=== PATIENT | male | born 1995 | race Caucasian/White ===

== ENCOUNTER 2017-11-30 13:43 | Emergency (ER) | payer MEDICARE, MEDICAID, SELFPAY ==
[2017-11-30 13:43] VITALS: BP 164/80; PULSE 102; RESP 18; TEMP 36.6; O2SAT 98; BMI 35.4
--- NOTE | 2017-11-30 13:54 | RAD_ITS ---
STUDY: X-RAY - RIGHT WRIST REASON FOR EXAM: Male, 22 years old. PAIN D/T TRAUMA. PLAYING BASKETBALL. LTD ROM PT APPEARS T/B MENTALLY CHALLENGED TECHNIQUE: 3 view(s) of the wrist were obtained. COMPARISON: None. FINDINGS: Normal visualized distal radius and ulna. Normal radiocarpal articulation. Normal distal radioulnar articulation. Normal carpal bones. Normal carpal articulations. Normal carpometacarpal articulation of the thumb. Normal second through fifth carpometacarpal articulations. Normal visualized metacarpal bones. The soft tissue structures are unremarkable. RAD/Wrist min 3 Views IMPRESSION: Normal x-ray examination of the wrist. Electronically Signed: Teri Lacey MD at 14:38 EDT Tel , Service support ,
--- NOTE | 2017-11-30 13:59 | ED.VISSUMM ---
- ER Visit Summary Date of Service: 11/30/17 Chief Complaint: Right wrist injury History of Present Illness: The patient is a 22 M with right wrist injury. The patient has a history of developmental delay and schizoaffective disorder. He was playing basketball today. He fell and struck the dorsum of his right wrist on the ground. Since then, he had some increasing pain. He did not strike his head. He denies any other injury. Patient has no history of fracture. He has not taken anything for his pain. Physical Examination: Exam is relatively unremarkable. Patient has tenderness on the dorsum of the wrist. His pulses are normal. His skin is intact. He is neurologically intact distally. Test Results: [] Emergency Department Course and Treatment: X-rays were obtained of the wrist. There is no evidence of acute fracture. I do feel that his symptoms are consistent with sprain. He will continue ice and anti-inflammatories. He will be placed in a wrist splint for comfort. This is a Velcro splint. He will be discharged home. Treatment Plan: [] Disposition: Discharge Impression: 1. Right wrist sprain This note was generated with [employer] dictation software. It may contain incorrect words, spelling, and punctuation that were not noted in review of the chart prior to signing ED Disposition - Plan for ED Patient: Chief Complaint: Upper Extremity Injury Instructions: ED Sprain Wrist Referrals: Turner Quick MD [Primary Care Provider] -
[2017-11-30] MEDS: Ibuprofen 600 MG Tablet PO (14:24)
[2017-11-30 15:10] VITALS: BP 108/69; PULSE 84; RESP 16; O2SAT 98
== END 2017-11-30 15:13 | disposition home or self-care (01) ==
LOC: ED 14:14
PROVIDERS: Emergency Provider Emergency Medicine; Family Provider Family Medicine; PCP Family Medicine
DX: S63.501A Unspecified sprain of right wrist, initial encounter (principal); W18.01XA Striking against sports equipment with subsequent fall, initial encounter; Y93.67 Activity, basketball; Y92.310 Basketball court as the place of occurrence of the external cause; Y99.8 Other external cause status; F25.9 Schizoaffective disorder, unspecified; R62.50 Unspecified lack of expected normal physiological development in childhood
CPT/HCPCS: 73110; 99283

== ENCOUNTER 2017-12-20 17:33 | Emergency (ER) | payer MEDICARE, MEDICAID, SELFPAY ==
[2017-12-20 17:34] VITALS: BP 123/73; PULSE 98; RESP 14; TEMP 36.7; O2SAT 97; BMI 36.2
--- NOTE | 2017-12-20 17:55 | ED.RN ---
Melissa from crisis on her way over to see pt
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
[2017-12-20 18:09] LABS: Absolute Lymphocyte Count 2.06 X10^3/ul (0.83-4.51); Absolute Neutrophil Count 6.5 X10^3/uL (2.0-7.7); Eosinophil# 0.01 X10^3/uL; Eosinophils% 0.1 % (0-5); Lymphocyte # 2.06 X10^3/ul (4.0); Lymphocyte % 22.4 % (19-41); Mean Corp Hgb Conc 33.3 g/gl (32-36); Mean Corpuscular Hgb 26.7 pg (27.0-32.0); Mean Corpuscular Volume 80.2 fL (80-94); Mean Platelet Vol. 8.8 fl (6.2-12.0); Monocyte# 0.65 X10^3/uL; Monocyte% 7.1 % (0-10); Neutrophil # 6.46 X10^3/uL (2.7-7.7); Neutrophil % 70.3 % (47-70); POSITIVE COUNT NO; POSITIVE DIFFERENTIAL NO; POSITIVE MORPHOLOGY NO; Platelet Count 285 K/mm3 (150-450); RBC Distribution Width SD 40.7 fl (35.1-43.9); Red Blood Count 5.24 M/mm3 (4.6-6.2); White Blood Count 9.2 K/mm3 (4.4-11.0)
[2017-12-20 18:22] LABS: Anion Gap 7 (5-15); BUN 10 mg/dL (7-18); BUN/Creat Ratio 11.7 RATIO (10-20); Chloride 104 mmol/L (98-107); Creatinine, Serum 0.86 mg/dL (0.70-1.30); EST Glomerular Filtration Rate 117 mL/min (>60); Est Glom Filt Rate - Afr Amer 141 mL/min (>60); Estimated Creatinine Clearance 145.37 ml/min; Glucose 93 mg/dL (74-106); Potassium 3.8 mmol/L (3.5-5.1); Sodium Level 137 mmol/L (136-145)
[2017-12-20 18:35] LABS: Alcohol, Blood (Medical)-Serum < 3.0 mg/dL
[2017-12-20 18:55] VITALS: PULSE 86; RESP 16; O2SAT 98
[2017-12-20 19:14] VITALS: RESP 16
[2017-12-20 19:46] LABS: Amphetamine Urine VISTA POSITIVE (<1000 ng/mL); Barbiturate Urine VISTA NEGATIVE (< 200 ng/mL); Benzodiazepine Urine VISTA NEGATIVE (< 200 ng/mL); Cocaine Urine VISTA NEGATIVE (< 300 ng/mL); Ecstacy Urine VISTA POSITIVE (< 500 ng/mL); Methadone Urine VISTA NEGATIVE (< 300 ng/mL); PCP Urine VISTA NEGATIVE (< 25 ng/mL); THC Urine VISTA NEGATIVE (< 50 ng/mL); Vista UDS pH Range 6
[2017-12-20 20:16] VITALS: BP 142/87; PULSE 106; RESP 16; O2SAT 96
--- NOTE | 2017-12-20 21:03 | EKG12_ITS ---
Test Reason : [facility] Blood Pressure : / mmHG Vent. Rate : 102 BPM Atrial Rate : 102 BPM P-R Int : 144 ms QRS Dur : 088 ms QT Int : 318 ms P-R-T Axes : 016 -23 026 degrees QTc Int : 414 ms Sinus tachycardia Leftward axis R/S in V1>1.0: consider lead placement; normal variant; early transition; Isolated posterior TX, age undetermined Moderate voltage criteria for LVH, may be normal variant Borderline ECG Confirmed by BERYL LAI, AHSAN ([id number]), staff editor LEIA MISHRA ([id number]) on 12/23/2017 1:12:20 PM Referred By: JEFERSON Confirmed By:AHSAN CORDOBA MD
[2017-12-20 21:44] LABS: Bacteria 0 SEEN /hpf (None Seen); Red Blood Cells-Urine 0 SEEN /hpf (0-5)
[2017-12-20 21:45] LABS: Color, Urine Yellow (Yellow); Glucose, Dipstick Normal (Normal); Ketone-Dipstick Negative (Negative); Leukocyte Esterase-Dipstick 25 /ul (Negative); Nitrite-Dipstick Negative (Negative); Occult Blood-Urine Negative /ul (Negative); Protein-Dipstick 30 mg/dl (Negative); Specific Gravity, Urine 1.025 (1.002-1.030); Urine Bilirubin Dipstick Negative (Negative); Urine Clarity Clear (Clear); Urine Urobilinogen Normal (Normal)
[2017-12-20 22:00] VITALS: RESP 16; O2SAT 98
[2017-12-20 22:05] LABS: Mucous, Urine 2+ /hpf (<or=2+); Squamous Epithelial Cells - UA 0-5 SEEN /hpf (0-5); White Blood Cells 0-5 SEEN /hpf (0-5)
[2017-12-20 22:11] LABS: AST(SGOT) 15 U/L (15-37); Alanine Aminotransfer ALT/SGPT 25 U/L (16-61); Alkaline Phosphatase 131 U/L (45-117); Bilirubin, Direct 0.09 mg/dL (0.00-0.30); Globulin 3.6 g/dL (2.2-4.2); Protein, Total 7.6 g/dL (6.4-8.2)
--- NOTE | 2017-12-20 23:02 | NURSING ---
CALLED [facility] AT 2300 AND WAS TOLD NO AVAILABILITY CALLED [facility] AT 2304 AND WAS TOLD EARLIEST AVAILABILITY IS 0730 SO SET UP TRANSPORT FOR THE MORNING
[2017-12-20 23:38] VITALS: BP 142/80; PULSE 101; RESP 18; O2SAT 97
--- NOTE | 2017-12-20 23:40 | NURSING ---
[place] [id number] [phone] REPORT
[2017-12-21] VITALS (8 sets, daily range): BP systolic 116–134; BP diastolic 66–87; PULSE 71–99; RESP 16–18; TEMP 36.6; O2SAT 96–98
[2017-12-21] MEDS: DiphenhydrAMINE 25 MG Capsule PO (02:43)
== END 2017-12-21 08:06 ==
PROVIDERS: Emergency Provider Emergency Medicine; Family Provider Family Medicine; PCP Family Medicine
DX: F32.9 Major depressive disorder, single episode, unspecified (principal); R45.851 Suicidal ideations; R44.1 Visual hallucinations; F43.10 Post-traumatic stress disorder, unspecified
CPT/HCPCS: 80048; 80076; 80307; 80320; 81001; 85025; 93005; 99284; G0480

== ENCOUNTER 2018-04-20 17:24 | Emergency (ER) | payer MEDICARE, MEDICAID, SELFPAY ==
[2018-04-20] VITALS (7 sets, daily range): BP systolic 133–134; BP diastolic 72–81; PULSE 79–81; RESP 14–16; TEMP 36.6; O2SAT 95–97; BMI 35.6
[2018-04-20 18:07] LABS: Absolute Lymphocyte Count 2.18 X10^3/ul (0.83-4.51); Absolute Neutrophil Count 6.1 X10^3/uL (2.0-7.7); Hematocrit 43.1 % (40-54); Lymphocyte # 2.18 X10^3/ul (4.0); Lymphocyte % 24.5 % (19-41); Mean Corp Hgb Conc 32.5 g/gl (32-36); Mean Corpuscular Hgb 25.7 pg (27.0-32.0); Mean Corpuscular Volume 79.1 fL (80-94); Mean Platelet Vol. 8.9 fl (6.2-12.0); Monocyte# 0.59 X10^3/uL; Monocyte% 6.6 % (0-10); Neutrophil # 6.12 X10^3/uL (2.7-7.7); Neutrophil % 68.7 % (47-70); POSITIVE COUNT NO; POSITIVE DIFFERENTIAL NO; POSITIVE MORPHOLOGY NO; Platelet Count 276 K/mm3 (150-450); RBC Distribution Width CV 14.2 % (11.6-14.6); RBC Distribution Width SD 40.3 fl (35.1-43.9); Red Blood Count 5.45 M/mm3 (4.6-6.2); White Blood Count 8.9 K/mm3 (4.4-11.0)
--- NOTE | 2018-04-20 18:15 | CM.ED ---
SOCIAL WORK NOTE PT SENT IN BY CRISIS FOR SUICIDAL IDEATION WITH PLAN TO HARM SELF. DISCUSSED PT'S CASE WITH DR. DE ANDA. PT TO BE WORKED UP FOR MEDICAL CLEARANCE AND EVALUATED BY CRISIS. PAMELA BRUCE, CAMERA SYSTEMS ENGINEER, COMPLIANCE ATTORNEY.
[2018-04-20 18:18] LABS: Anion Gap 10 (5-15); BUN 13 mg/dL (7-18); BUN/Creat Ratio 16.2 RATIO (10-20); Chloride 106 mmol/L (98-107); EST Glomerular Filtration Rate 125 mL/min (>60); Est Glom Filt Rate - Afr Amer 152 mL/min (>60); Estimated Creatinine Clearance 160.91 ml/min; Glucose 87 mg/dL (74-106); Potassium 3.8 mmol/L (3.5-5.1); Sodium Level 140 mmol/L (136-145)
--- NOTE | 2018-04-20 18:20 | ED.VISSUMM ---
- ER Visit Summary Date of Service: 04/20/18 Chief Complaint: Suicidal ideation History of Present Illness: The patient is a 22 M who presents for suicidal ideation since this morning. Patient states he plans to cut himself on the wrists. He has had prior thoughts of suicide and prior hospitalizations for mental health reasons. He denies doing anything today to harm himself. He lives with his mother and grandfather. He denies any situational factors, alcohol or drug use that would be causing his suicidal thoughts. He has history of depression and bipolar disorder. He is on medications for the same. He denies any somatic symptoms at this time. He took a Vistaril at home without any improvement. Physical Examination: Vital signs: afebrile, hemodynamically stable, no hypoxia on room air General: well nourished, well developed, in no distress Skin: warm, dry, no rash, no pallor HEENT: normocephalic and atraumatic; PERRL, EOMI, moist mucous membranes Cardiovascular: regular rate and rhythm without murmurs, no peripheral edema, 2+ pulses all distal extremities Respiratory: No increased work of breathing, lungs are clear to auscultation bilaterally, no rales, rhonchi or wheezing Abdominal: Abdomen is soft, nontender with normoactive bowel sounds, no guarding or rebound, no masses MSK: Moves all extremities, no deformities, normal strength Neuro: Awake and alert, oriented ?4. No facial droop, sensation and motor function intact and symmetric Psych: Positive suicidal ideation, no obvious response to internal stimuli, no obvious paranoid ideation, no homicidal ideation Test Results: Abnormal Lab Results 04/20/18 04/20/18 04/20/18 17:50 17:50 17:50 WBC 8.9 RBC 5.45 Hgb 14.0 Hct 43.1 MCV 79.1 L MCH 25.7 L MCHC 32.5 RDW 14.2 RDW Differential 40.3 Plt Count 276 MPV 8.9 Immature Gran % (Auto) 0.200 Neut % (Auto) 68.7 Lymph % (Auto) 24.5 [place] % (Auto) 6.6 Eos % (Auto) 0.0 Baso % (Auto) 0.0 Absolute Neuts (auto) 6.1 Absolute Lymphs (auto) 2.18 Total Counted Not Reportable Sodium 140 Potassium 3.8 Chloride 106 Carbon Dioxide 24.0 Anion Gap 10 BUN 13 Creatinine 0.80 Estim Creat Clear Calc 160.91 Est GFR (MDRD) Af Amer 152 Est GFR (MDRD) Non-Af 125 BUN/Creatinine Ratio 16.2 Glucose 87 Calcium 9.0 Urine Opiates Screen Urine Methadone Screen Ur Barbiturates Screen Ur Phencyclidine Scrn Ur Amphetamines Screen U Methamphetamin-MDMA U Benzodiazepines Scrn Urine Cocaine Screen U Cannabinoids Screen Ur Drug Screen Comment Ethyl Alcohol 3.0 04/20/18 19:00 WBC RBC Hgb Hct MCV MCH MCHC RDW RDW Differential Plt Count MPV Immature Gran % (Auto) Neut % (Auto) Lymph % (Auto) [place] % (Auto) Eos % (Auto) Baso % (Auto) Absolute Neuts (auto) Absolute Lymphs (auto) Total Counted Sodium Potassium Chloride Carbon Dioxide Anion Gap BUN Creatinine Estim Creat Clear Calc Est GFR (MDRD) Af Amer Est GFR (MDRD) Non-Af BUN/Creatinine Ratio Glucose Calcium Urine Opiates Screen NEGATIVE Urine Methadone Screen NEGATIVE Ur Barbiturates Screen NEGATIVE Ur Phencyclidine Scrn NEGATIVE Ur Amphetamines Screen NEGATIVE U Methamphetamin-MDMA NEGATIVE U Benzodiazepines Scrn NEGATIVE Urine Cocaine Screen NEGATIVE U Cannabinoids Screen NEGATIVE Ur Drug Screen Comment Ethyl Alcohol Medications Given Discontinued Medications Acetaminophen (Tylenol) 650 mg PO X1 ONE Stop: 04/20/18 22:44 Last Admin: 04/20/18 22:49 Dose: 650 mg Hydroxyzine Pamoate (Vistaril Pamoate Capsule) 50 mg PO X1 ONE Stop: 04/20/18 22:44 Last Admin: 04/20/18 22:49 Dose: 50 mg Emergency Department Course and Treatment: Medical screening exam was performed. Patient was medically cleared for further evaluation by the crisis counselor for psychiatric placement. Pending acceptance to an inpatient psychiatric facility. [place] slip was filled out as patient is actively suicidal and will require inpatient management. Treatment Plan: [] Disposition: [] Impression: Suicidal ideation This note was generated with [employer] software. It may contain incorrect words, spelling, and punctuation that were not noted in review of the chart prior to signing ED Disposition - Plan for ED Patient: Referrals: Turner Quick MD [Primary Care Provider] -
[2018-04-20 19:20] LABS: Amphetamine Urine VISTA NEGATIVE (<1000 ng/mL); Barbiturate Urine VISTA NEGATIVE (< 200 ng/mL); Benzodiazepine Urine VISTA NEGATIVE (< 200 ng/mL); Cocaine Urine VISTA NEGATIVE (< 300 ng/mL); Ecstacy Urine VISTA NEGATIVE (< 500 ng/mL); Methadone Urine VISTA NEGATIVE (< 300 ng/mL); PCP Urine VISTA NEGATIVE (< 25 ng/mL); THC Urine VISTA NEGATIVE (< 50 ng/mL); Vista UDS pH Range 6
[2018-04-20] MEDS: Acetaminophen 325 MG Tablet 650 MG PO (22:49)
[2018-04-20] MEDS: hydrOXYzine PAM 25 MG Capsule 50 MG PO (22:49)
[2018-04-21] VITALS (7 sets, daily range): BP systolic 124–126; BP diastolic 70–82; PULSE 76–81; RESP 14–18; O2SAT 95–96
--- NOTE | 2018-04-21 00:29 | NURSING ---
ACCEPTED TO [facility] [phone] REPORT 1500 UNIT
--- NOTE | 2018-04-21 03:20 | ED.RN ---
REPORT CALLED TO [facility]
[2018-04-21] MEDS: hydrOXYzine PAM 25 MG Capsule 50 MG PO (05:19)
== END 2018-04-21 08:01 ==
PROVIDERS: Emergency Provider Emergency Medicine; Family Provider Family Medicine; PCP Family Medicine
DX: R45.851 Suicidal ideations (principal); F41.9 Anxiety disorder, unspecified; J45.909 Unspecified asthma, uncomplicated; K21.9 Gastro-esophageal reflux disease without esophagitis; F31.9 Bipolar disorder, unspecified
CPT/HCPCS: 80048; 80307; 80320; 85025; 99284; G0480

== ENCOUNTER 2018-05-19 12:45 | Emergency (ER) | payer MEDICARE, MEDICAID, SELFPAY ==
[2018-04-20 17:25] VITALS: BMI 35.6
[2018-05-19 12:46] VITALS: BP 155/73; PULSE 92; RESP 16; TEMP 36.3; O2SAT 97; BMI 36.4
[2018-05-19 13:27] LABS: Amphetamine Urine VISTA NEGATIVE (<1000 ng/mL); Barbiturate Urine VISTA NEGATIVE (< 200 ng/mL); Benzodiazepine Urine VISTA NEGATIVE (< 200 ng/mL); Cocaine Urine VISTA NEGATIVE (< 300 ng/mL); Ecstacy Urine VISTA NEGATIVE (< 500 ng/mL); Methadone Urine VISTA NEGATIVE (< 300 ng/mL); PCP Urine VISTA NEGATIVE (< 25 ng/mL); THC Urine VISTA NEGATIVE (< 50 ng/mL); Vista UDS pH Range 5
[2018-05-19 13:28] LABS: Anion Gap 6 (5-15); BUN 11 mg/dL (7-18); BUN/Creat Ratio 12.3 RATIO (10-20); Calcium,Total 8.4 mg/dL (8.5-10.1); Chloride 107 mmol/L (98-107); Creatinine, Serum 0.89 mg/dL (0.70-1.30); EST Glomerular Filtration Rate 111 mL/min (>60); Est Glom Filt Rate - Afr Amer 134 mL/min (>60); Estimated Creatinine Clearance 140.47 ml/min; Glucose 119 mg/dL (74-106); Potassium 3.4 mmol/L (3.5-5.1); Sodium Level 138 mmol/L (136-145)
[2018-05-19 13:29] LABS: Absolute Lymphocyte Count 2.03 X10^3/ul (0.83-4.51); Absolute Neutrophil Count 3.3 X10^3/uL (2.0-7.7); Hematocrit 39.9 % (40-54); Hemoglobin 13.2 g/dl (13.0-16.5); Lymphocyte # 2.03 X10^3/ul (4.0); Lymphocyte % 36.4 % (19-41); Mean Corp Hgb Conc 33.1 g/gl (32-36); Mean Corpuscular Hgb 25.9 pg (27.0-32.0); Mean Corpuscular Volume 78.4 fL (80-94); Mean Platelet Vol. 8.7 fl (6.2-12.0); Monocyte# 0.23 X10^3/uL; Monocyte% 4.1 % (0-10); Neutrophil # 3.31 X10^3/uL (2.7-7.7); Neutrophil % 59.3 % (47-70); Platelet Count 257 K/mm3 (150-450); RBC Distribution Width CV 14.2 % (11.6-14.6); RBC Distribution Width SD 40.3 fl (35.1-43.9); Red Blood Count 5.09 M/mm3 (4.6-6.2); White Blood Count 5.6 K/mm3 (4.4-11.0)
--- NOTE | 2018-05-19 13:30 | CM.ED ---
SOCIAL WORK NOTE PATIENT PRESENTS TO THE ED WITH SUICIDAL IDEATION. DISCUSSED CASE WITH DR. GARCIA. PATIENT WITH PLAN TO HARM SELF WITH KNIFE. CRISIS TO EVAL ONCE MEDICALLY CLEARED. PAMELA BRUCE, BONDERITE OPERATOR, PRODUCE WEIGHER.
[2018-05-19 13:31] LABS: POSITIVE COUNT NO; POSITIVE DIFFERENTIAL NO; POSITIVE MORPHOLOGY NO
[2018-05-19 13:39] LABS: Alcohol, Blood (Medical)-Serum < 3.0 mg/dL
[2018-05-19 14:04] VITALS: PULSE 69; RESP 15; O2SAT 95
--- NOTE | 2018-05-19 14:06 | NURSING ---
CALLED CRISIS. TALKED TO VALE. SHE WILL BE OVER
--- NOTE | 2018-05-19 14:33 | NURSING ---
VALE, CRISIS, HERE
[2018-05-19 15:13] VITALS: BP 129/86; PULSE 68; RESP 18; O2SAT 96
--- NOTE | 2018-05-19 15:45 | CM.ED ---
SOCIAL WORK NOTE VALE FROM CRISIS HERE AND EVALUATED PATIENT. PLAN IS FOR INPATIENT PSYCH HOSPITALIZATION. PAMELA BRUCE, STRAP FOLDING MACHINE OPERATOR, ELEMENTARY SUBSTITUTE TEACHER.
--- NOTE | 2018-05-19 16:31 | ED.VISSUMM ---
- ER Visit Summary Date of Service: 05/19/18 Chief Complaint: Suicidal ideation History of Present Illness: The patient is a 22 M who presents with increased anxiety and suicidal ideation over the past 2 days. He told nursing staff that he was seeing hallucinations of skeletons. His plan is to cut or stab himself. He has not made any attempts. He was last admitted to [facility] 1 month ago. He was started on Lexapro at that time. Past history is significant for bipolar disorder, mild MR, Asperger's, seizures, asthma. Physical Examination: Vital signs significant for blood pressure 155/73, otherwise unremarkable. Patient sitting upright in bed no acute distress. He is alert and cooperative. Heart is regular rate and rhythm. Lungs sounds are clear. Abdomen is soft nontender. Extremity examination reveals no sign of injury. Test Results: CBC and chemistry studies significant only for potassium 3.4. Tox and EtOH are negative. Lamictal level was sent and pending. Emergency Department Course and Treatment: Margarita from the [facility] has presented to evaluate the patient. Plan at this time will be inpatient psychiatric treatment. We are awaiting acceptance and transfer at this time. Treatment Plan: [] Disposition: Transfer Impression: Suicidal ideation This note was generated with [employer] dictation software. It may contain incorrect words, spelling, and punctuation that were not noted in review of the chart prior to signing ED Disposition - Plan for ED Patient: Referrals: Turner Quick MD [Primary Care Provider] -
--- NOTE | 2018-05-19 17:12 | EKG12_ITS ---
Test Reason : MEDICAL CLEARANCE Blood Pressure : / mmHG Vent. Rate : 074 BPM Atrial Rate : 074 BPM P-R Int : 140 ms QRS Dur : 106 ms QT Int : 376 ms P-R-T Axes : 004 013 025 degrees QTc Int : 417 ms Normal sinus rhythm ST elevation, consider early repolarization, pericarditis, or injury Abnormal ECG Confirmed by TODD LAI, RUDY ([id number]), editor continuity and script JAZIEL PARKER ([id number]) on 05/22/2018 11:20:11 AM Referred By: JOSE Confirmed By:RUDY BROOKS MD
[2018-05-19 18:00] VITALS: RESP 18
--- NOTE | 2018-05-19 18:04 | NURSING ---
ACCEPTED AT [facility]
[2018-05-19 19:00] VITALS: BP 129/86; PULSE 68; RESP 18; O2SAT 96
[2018-05-19] MEDS: Benztropine 2 MG Tablet 0.5 MG PO (19:57)
[2018-05-19] MEDS: hydrOXYzine PAM 25 MG Capsule 50 MG PO (19:57)
[2018-05-19] MEDS: QUEtiapine 100 MG Tablet 150 MG PO (19:58)
[2018-05-19] MEDS: lamoTRIgine 150 MG Tablet PO (19:58)
[2018-05-22 12:15] LABS: Lamotrigine (Lamictal) Level 3.3 ug/mL (2.0-20.0)
== END 2018-05-19 21:03 ==
PROVIDERS: Emergency Provider Emergency Medicine; Family Provider Family Medicine; PCP Family Medicine
DX: R45.851 Suicidal ideations (principal); F41.9 Anxiety disorder, unspecified; J45.909 Unspecified asthma, uncomplicated; F84.5 Asperger's syndrome; F70 Mild intellectual disabilities; F31.9 Bipolar disorder, unspecified
CPT/HCPCS: 80048; 80307; 80320; 82542; 85025; 93005; 99284; G0480

== ENCOUNTER 2018-06-07 14:44 | Emergency (ER) | payer MEDICARE, MEDICAID, SELFPAY ==
[2018-06-07] VITALS (7 sets, daily range): BP systolic 122–137; BP diastolic 80–82; PULSE 83–95; RESP 14–19; TEMP 37.1; O2SAT 95–97; BMI 37.4
--- NOTE | 2018-06-07 15:02 | EKG12_ITS ---
Test Reason : [facility] Blood Pressure : / mmHG Vent. Rate : 089 BPM Atrial Rate : 089 BPM P-R Int : 146 ms QRS Dur : 090 ms QT Int : 346 ms P-R-T Axes : 017 -02 022 degrees QTc Int : 420 ms Normal sinus rhythm Normal ECG Confirmed by TODD LAI, RUDY ([id number]), editorial clerk LEIA MISHRA ([id number]) on 06/12/2018 4:26:20 PM Referred By: JUANIS Confirmed By:RUDY BROOKS MD
--- NOTE | 2018-06-07 15:02 | ED.VISSUMM ---
- ER Visit Summary Date of Service: 06/07/18 Chief Complaint: Suicidal ideation History of Present Illness: The patient is a 22 M who notes a long history of depression bipolar disorder and psychosis. Patient's grandfather within the week and the is this weekend. He was at work today called his mom with his boss stating he was having suicidal thoughts with a plan to cut himself. He also has been seen visions of schools and skeletons. This is been a theme in the past. He denies any medications he has not taken. He denies any drug or alcohol use. No pending legal issues. He lives with mom has a good relationship with her. Physical Examination: Afebrile vital signs stable Gen: Well-nourished well-developed Head: Normocephalic atraumatic Eyes: Perrl EOMI ENT: TMs clear no rhinorrhea moist mucous membranes Neck: Supple no lymphadenopathy no JVD nontender CVS: Regular rate rhythm no murmurs normal S1-S2 Respiratory: No distress clear to auscultation bilaterally chest nontender Abdomen: Soft nontender nondistended normal bowel sounds no masses Back: Nontender Extremity: Nontender no edema Skin: Normal color no rash Neuro: alert orientated ?3 CN II-XII intact normal strength sensation reflexes gait cerebellar Psych: Flat blunted depressed affect admits to suicidal ideation Test Results: Psychiatric screening labs were obtained including EKG. EKG demonstrates a normal sinus rhythm that is unchanged from May 19. Emergency Department Course and Treatment: Patient was medically cleared for crisis and psychiatric evaluation. Patient states he cannot contract for safety. Mom states she cannot guarantee his safety as she is busy planning a . We will attempt to get the patient transferred for psychiatric care. Impression: 1. Major depression 2. Bipolar disorder 3. Suicidal ideation This note was generated with [employer] dictation software. It may contain incorrect words, spelling, and punctuation that were not noted in review of the chart prior to signing ED Disposition - Plan for ED Patient: Referrals: Turner Quick MD [Primary Care Provider] -
--- NOTE | 2018-06-07 15:05 | CM.ED ---
SOCIAL WORK NOTE PHYSICIAN ASSESSED PATIENT AND UPDATED NICKY FROM CRISIS ON NEED FOR EVALUATION. DISPOSITION PENDING CRISIS EVALUATION. PAMELA BRUCE, BALL MILL MIXER, SHOT HOLE DRILLER.
[2018-06-07 15:09] LABS: Absolute Lymphocyte Count 2.63 X10^3/ul (0.83-4.51); Absolute Neutrophil Count 5.1 X10^3/uL (2.0-7.7); Hematocrit 39.2 % (40-54); Hemoglobin 13.2 g/dl (13.0-16.5); Lymphocyte # 2.63 X10^3/ul (4.0); Lymphocyte % 30.5 % (19-41); Mean Corp Hgb Conc 33.7 g/gl (32-36); Mean Corpuscular Hgb 26.2 pg (27.0-32.0); Mean Corpuscular Volume 77.8 fL (80-94); Mean Platelet Vol. 8.3 fl (6.2-12.0); Monocyte# 0.88 X10^3/uL; Monocyte% 10.2 % (0-10); Neutrophil # 5.11 X10^3/uL (2.7-7.7); Neutrophil % 59.2 % (47-70); Platelet Count 270 K/mm3 (150-450); RBC Distribution Width CV 14.7 % (11.6-14.6); RBC Distribution Width SD 41.4 fl (35.1-43.9); Red Blood Count 5.04 M/mm3 (4.6-6.2); White Blood Count 8.6 K/mm3 (4.4-11.0)
[2018-06-07 15:13] LABS: POSITIVE COUNT NO; POSITIVE DIFFERENTIAL NO; POSITIVE MORPHOLOGY NO
[2018-06-07 15:26] LABS: ALB/GLOB Ratio 1.4 RATIO (0.9-2.4); AST(SGOT) 21 U/L (15-37); Alanine Aminotransfer ALT/SGPT 30 U/L (16-61); Albumin, Serum 4.1 g/dL (3.2-5.0); Alkaline Phosphatase 111 U/L (45-117); Anion Gap 6 (5-15); BUN 10 mg/dL (7-18); BUN/Creat Ratio 11.6 RATIO (10-20); Calcium,Total 8.9 mg/dL (8.5-10.1); Chloride 106 mmol/L (98-107); Creatinine, Serum 0.86 mg/dL (0.70-1.30); EST Glomerular Filtration Rate 115 mL/min (>60); Est Glom Filt Rate - Afr Amer 139 mL/min (>60); Estimated Creatinine Clearance 145.37 ml/min; Globulin 2.9 g/dL (2.2-4.2); Glucose 76 mg/dL (74-106); Potassium 3.8 mmol/L (3.5-5.1); Sodium Level 138 mmol/L (136-145)
[2018-06-07 16:58] LABS: Amphetamine Urine VISTA NEGATIVE (<1000 ng/mL); Barbiturate Urine VISTA NEGATIVE (< 200 ng/mL); Benzodiazepine Urine VISTA NEGATIVE (< 200 ng/mL); Cocaine Urine VISTA NEGATIVE (< 300 ng/mL); Ecstacy Urine VISTA NEGATIVE (< 500 ng/mL); Methadone Urine VISTA NEGATIVE (< 300 ng/mL); PCP Urine VISTA NEGATIVE (< 25 ng/mL); THC Urine VISTA NEGATIVE (< 50 ng/mL); Vista UDS pH Range 6
--- NOTE | 2018-06-07 19:23 | ED.RN ---
DR. OLIVAREZ ASKED ABOUT NIGHT TIME MEDS FOR PT, TO RE-EVALUATE PT HOME MEDICATIONS. NO NEW ORDERS AT THIS TIME WILL CONTINUE TO MONITOR.
--- NOTE | 2018-06-07 20:08 | CM.ED ---
SOCIAL WORK NOTE UPDATED BY ASSISTANCE COORDINATOR, [facility] HAS DENIED PATIENT. REFERRAL FAXED TO [facility]. PAMELA BRUCE, SURGICAL SCRUB TECH, CHAIRLIFT OPERATOR.
--- NOTE | 2018-06-07 21:01 | ED.RN ---
REPORT CALLED TO [facility] BY THIS RN TO LO MANN [phone].
== END 2018-06-07 22:05 ==
PROVIDERS: Emergency Provider Emergency Medicine; Family Provider Family Medicine; PCP Family Medicine
DX: R45.851 Suicidal ideations (principal); F32.9 Major depressive disorder, single episode, unspecified
CPT/HCPCS: 80053; 80307; 80320; 85025; 93005; 99284; G0480

== ENCOUNTER 2018-06-16 15:45 | Emergency (ER) | payer OTHER, MEDICARE, MEDICAID, SELFPAY ==
[2018-06-07 14:49] VITALS: BMI 37.4
[2018-06-16 15:46] VITALS: BP 149/89; PULSE 90; RESP 18; TEMP 36.7; O2SAT 93; BMI 39.9
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
[2018-06-16 17:25] VITALS: BP 145/70; PULSE 103; RESP 18; O2SAT 95
== END 2018-06-16 17:27 | disposition home or self-care (01) ==
PROVIDERS: Emergency Provider Emergency Medicine; Family Provider Family Medicine; PCP Family Medicine
DX: S16.1XXA Strain of muscle, fascia and tendon at neck level, initial encounter (principal); S80.01XA Contusion of right knee, initial encounter; V49.59XA Passenger injured in collision with other motor vehicles in traffic accident, initial encounter; Y93.9 Activity, unspecified; Y92.413 State road as the place of occurrence of the external cause; Y99.8 Other external cause status; G40.909 Epilepsy, unspecified, not intractable, without status epilepticus
CPT/HCPCS: 72125; 73564; 99284

== ENCOUNTER 2018-07-12 10:07 | Emergency (ER) | payer MEDICARE, MEDICAID, SELFPAY ==
[2018-07-12 10:10] VITALS: BP 133/73; PULSE 89; RESP 14; TEMP 36.2; O2SAT 96; BMI 81.5
--- NOTE | 2018-07-12 10:31 | ED.DCSUM_ITS ---
- ER Visit Summary Date of Service: 07/12/18 Chief Complaint: Suicidal ideation History of Present Illness: The patient is a 22 M there is a long history of depression and bipolar schizophrenia and Asperger's syndrome. He tells me that since last night he has had increased feelings of paranoia some days watching him. He feels that there is a bomb inside of him that may go off. This is making him want to go home and cut himself. He tells me he has not told his mom or his counselors this. He states he last saw his counselor on Tuesday. He was admitted last month to psychiatry for suicidal ideation via cutting. Physical Examination: Afebrile vital signs are stable Gen: Well-nourished well-developed Head: Normocephalic atraumatic Eyes: Perrl EOMI ENT: TMs clear no rhinorrhea moist mucous membranes Neck: Supple no lymphadenopathy no JVD nontender CVS: Regular rate rhythm no murmurs normal S1-S2 Respiratory: No distress clear to auscultation bilaterally chest nontender Abdomen: Soft nontender nondistended normal bowel sounds no masses Back: Nontender Extremity: Nontender no edema Skin: Normal color no rash Neuro: alert orientated ?3 CN II-XII intact normal strength sensation reflexes gait cerebellar Psych: Patient reports paranoia but does not seem paranoid. He admits to suicidality by cutting. Patient provides numerous inconsistencies with his story about when this began and what his symptoms are. Test Results: CBC BMP tox negative Emergency Department Course and Treatment: Patient was assessed by crisis. They to feel the patient's story is inconsistent and I believe that he is being manipulative to be placed. We had his counselor come to the emergency department who knows him. This time the patient states that he is happy he is no longer suicidal he does not feel he needs to be hospitalized. Impression: 1. Depression 2. Bipolar disorder This note was generated with [employer] dictation software. It may contain incorrect words, spelling, and punctuation that were not noted in review of the chart prior to signing ED Disposition - Plan for ED Patient: Disposition: Home or Assisted Living Instructions: ED Contract, No Harm Referrals: Counseling,Center [GROUP OF PHYSICIANS] - Keep Kristy appointment
[2018-07-12 11:00] LABS: Absolute Lymphocyte Count 2.13 X10^3/ul (0.83-4.51); Absolute Neutrophil Count 2.4 X10^3/uL (2.0-7.7); Hematocrit 41.9 % (40-54); Hemoglobin 14.1 g/dl (13.0-16.5); Lymphocyte # 2.13 X10^3/ul (4.0); Lymphocyte % 42.3 % (19-41); Mean Corp Hgb Conc 33.7 g/gl (32-36); Mean Corpuscular Hgb 25.7 pg (27.0-32.0); Mean Corpuscular Volume 76.5 fL (80-94); Mean Platelet Vol. 8.7 fl (6.2-12.0); Monocyte# 0.45 X10^3/uL; Monocyte% 8.9 % (0-10); Neutrophil # 2.44 X10^3/uL (2.7-7.7); Neutrophil % 48.6 % (47-70); Platelet Count 290 K/mm3 (150-450); RBC Distribution Width CV 14.5 % (11.6-14.6); RBC Distribution Width SD 39.7 fl (35.1-43.9); Red Blood Count 5.48 M/mm3 (4.6-6.2)
[2018-07-12 11:01] LABS: POSITIVE COUNT NO; POSITIVE DIFFERENTIAL NO; POSITIVE MORPHOLOGY NO
[2018-07-12 11:04] LABS: Amphetamine Urine VISTA NEGATIVE (<1000 ng/mL); Barbiturate Urine VISTA NEGATIVE (< 200 ng/mL); Benzodiazepine Urine VISTA NEGATIVE (< 200 ng/mL); Cocaine Urine VISTA NEGATIVE (< 300 ng/mL); Ecstacy Urine VISTA NEGATIVE (< 500 ng/mL); Methadone Urine VISTA NEGATIVE (< 300 ng/mL); PCP Urine VISTA NEGATIVE (< 25 ng/mL); THC Urine VISTA NEGATIVE (< 50 ng/mL); Vista UDS pH Range 6
[2018-07-12 11:05] LABS: Anion Gap 7 (5-15); BUN 14 mg/dL (7-18); BUN/Creat Ratio 16.3 RATIO (10-20); Calcium,Total 8.8 mg/dL (8.5-10.1); Chloride 107 mmol/L (98-107); Creatinine, Serum 0.86 mg/dL (0.70-1.30); EST Glomerular Filtration Rate 115 mL/min (>60); Est Glom Filt Rate - Afr Amer 139 mL/min (>60); Estimated Creatinine Clearance 145.37 ml/min; Glucose 96 mg/dL (74-106); Sodium Level 141 mmol/L (136-145)
--- NOTE | 2018-07-12 11:10 | CM.ED ---
SOCIAL WORK DISCUSSED CASE WITH PHYSICIAN. CRISIS TO EVALUATE FOR INPATIENT PSYCH HOSPITALIZATION. NO SS NEED AT THIS TIME. PAMELA BRUCE, TRANS ROUTER, AIRWAYS CONTROL SPECIALIST.
[2018-07-12 11:13] VITALS: PULSE 81; RESP 12
--- NOTE | 2018-07-12 11:16 | NURSING ---
CALLED [facility] FOR TALKED TO JACOB
[2018-07-12 11:26] LABS: Alcohol, Blood (Medical)-Serum < 3.0 mg/dL
[2018-07-12 12:25] VITALS: RESP 14
--- NOTE | 2018-07-12 13:37 | CM.ED ---
SOCIAL WORK UPDATED BY JACOB FROM CRISIS, PATIENT'S COUNSELOR FROM THE [facility] WILL BE OVER TO MEET WITH PATIENT. POSSIBLE SAFETY PLAN FOR HOME. COUNSELOR TO ASSIST IN DETERMINING DISPOSITION. JACOB TO UPDATE PHYSICIAN. NURSE AWARE AND UPDATED BY CRISIS. PAMELA BRUCE, GIFT SHOP MANAGER, HOLLOW HANDLE BENCH WORKER.
[2018-07-12 14:10] VITALS: BP 138/81; PULSE 84; RESP 16; O2SAT 99
[2018-07-12 15:06] VITALS: PULSE 79; RESP 14; O2SAT 99
== END 2018-07-12 15:19 | disposition home or self-care (01) ==
PROVIDERS: Emergency Provider Emergency Medicine; Family Provider Family Medicine; PCP Family Medicine
DX: R45.851 Suicidal ideations (principal); F31.9 Bipolar disorder, unspecified; F20.9 Schizophrenia, unspecified; F84.5 Asperger's syndrome; Z91.5 Personal history of self-harm
CPT/HCPCS: 80048; 80307; 80320; 85025; 99285; G0480

== ENCOUNTER 2018-08-15 14:24 | Emergency (ER) | payer MEDICARE, MEDICAID, SELFPAY ==
[2018-08-15 14:26] VITALS: BP 133/84; PULSE 97; RESP 18; TEMP 37; O2SAT 94; BMI 39.9
--- NOTE | 2018-08-15 15:17 | ED.DCSUM_ITS ---
- ER Visit Summary Date of Service: 08/15/18 Chief Complaint: Depression and suicidal ideation History of Present Illness: The patient is a 22 M who presents with suicidal and homicidal ideation. Patient states he woke up today and was hearing voices. Patient states the voices are telling him to hurt himself and hurt his mother. Patient states he wanted to cut himself. Patient states nothing made the voices better or worse. Patient denies any specific plan for injuring his mother. Patient has a history of bipolar disorder with psychosis and schizoaffective disorder. He also has a history of PTSD, anxiety disorder, and depression. Physical Examination: Vital signs are stable. Patient is afebrile. Patient is in no acute distress. Oral mucosa is pink and moist. Neck is supple. Trachea is midline. There is no JVD noted. Heart was regular rate and rhythm. Lungs are clear and equal bilateral. Abdomen is soft. Bowel sounds are normal. There is no tenderness. There is no guarding noted. Skin is warm dry. Cranial nerves II through XII are intact. There are no focal motor or sensory deficits noted. Patient has a depressed mood and flat affect. Patient admits to suicidal and homicidal ideations. Patient has a plan to cut himself. The remaining physical exam is within normal limits. Test Results: CBC, metabolic profile, urine tox screen, and serum alcohol level were obtained were all normal. Emergency Department Course and Treatment: Suicide precautions were maintained. Social work will attempt to place the patient in a psychiatric facility. [place] slip was placed. Patient was transferred to [facility]. Patient understood and was agreeable with the plan. All questions were answered. Disposition: Transfer to psychiatric facility Impression: 1. Suicidal ideation 2. Homicidal ideation 3. Schizoaffective disorder This note was generated with [employer] dictation software. It may contain incorrect words, spelling, and punctuation that were not noted in review of the chart prior to signing ED Disposition - Plan for ED Patient: Disposition: Psychiatric Hospital or Unit Diagnosis: Suicidal ideation, Homicidal ideation, Schizoaffective disorder Referrals: Turner Quick MD [Primary Care Provider] -
[2018-08-15 15:21] LABS: Absolute Lymphocyte Count 2.36 X10^3/ul (0.83-4.51); Absolute Neutrophil Count 3.4 X10^3/uL (2.0-7.7); Hematocrit 39.4 % (40-54); Hemoglobin 13.3 g/dl (13.0-16.5); Lymphocyte # 2.36 X10^3/ul (4.0); Lymphocyte % 36.4 % (19-41); Mean Corp Hgb Conc 33.8 g/gl (32-36); Mean Corpuscular Hgb 26.7 pg (27.0-32.0); Mean Platelet Vol. 8.7 fl (6.2-12.0); Monocyte# 0.76 X10^3/uL; Monocyte% 11.7 % (0-10); Neutrophil # 3.37 X10^3/uL (2.7-7.7); Neutrophil % 51.9 % (47-70); Platelet Count 252 K/mm3 (150-450); RBC Distribution Width CV 14.4 % (11.6-14.6); Red Blood Count 4.99 M/mm3 (4.6-6.2); White Blood Count 6.5 K/mm3 (4.4-11.0)
[2018-08-15 15:31] LABS: Anion Gap 7 (5-15); BUN 10 mg/dL (7-18); BUN/Creat Ratio 11.4 RATIO (10-20); Calcium,Total 8.9 mg/dL (8.5-10.1); Chloride 105 mmol/L (98-107); Creatinine, Serum 0.88 mg/dL (0.70-1.30); EST Glomerular Filtration Rate 112 mL/min (>60); Est Glom Filt Rate - Afr Amer 136 mL/min (>60); Estimated Creatinine Clearance 137.86 ml/min; Glucose 89 mg/dL (74-106); POSITIVE COUNT NO; POSITIVE DIFFERENTIAL NO; POSITIVE MORPHOLOGY NO; Potassium 3.8 mmol/L (3.5-5.1); Sodium Level 138 mmol/L (136-145)
[2018-08-15 15:40] LABS: Amphetamine Urine VISTA NEGATIVE (<1000 ng/mL); Barbiturate Urine VISTA NEGATIVE (< 200 ng/mL); Benzodiazepine Urine VISTA NEGATIVE (< 200 ng/mL); Cocaine Urine VISTA NEGATIVE (< 300 ng/mL); Ecstacy Urine VISTA NEGATIVE (< 500 ng/mL); Methadone Urine VISTA NEGATIVE (< 300 ng/mL); PCP Urine VISTA NEGATIVE (< 25 ng/mL); THC Urine VISTA NEGATIVE (< 50 ng/mL); Vista UDS pH Range 6
--- NOTE | 2018-08-15 15:40 | CM.ED ---
Social Work Reason for Consult: Suicidal/Homocidal Thoughts Informant: Patient, patient mom. Personal Status Mentation: patient A&Ox3 Present during assessment: Patient and patient mother. Patient motherTasha is patient guardian. Living Arrangements: Patient lives with patient mother. Employment: Employed through [employer] Family Dynamics/Relationships: Supports: ADLs: Independent with basis ADL's does need assistance with cooking, cleaning, paying bills and managing medication per patient mother. Chief Complaint: Patient reporting to be hearing voices that are telling patient to cut self as well as kill patients mother (Tasha) with a knife. Patient reporting to hear the voices often and to still be actively hearing the voices during conversation with this nursing home social worker. There is a sitter present in the room and patient mother is reporting to feel safe being in the room at this time. Patient calmly laying on the bed during interaction with this nursing home social worker. Impression: Patient presenting with thoughts of suicidal and homicidal ideation and plan. Patient is not safe to self or others to return to the community at this time. Collaborating with Dr. Membreno. Patient to discharge to an inpatient psychiatric facility. Patient noted to have a history of a stay at [facility] in the past. Will attempt placement at [facility]. Mental Health Hx and Current Status: Patient diagnosed with Bi-polar and does take medication to manage this. Patient mother reporting that patient does not remember to take medication on own and that patient needs to be reminded to take medication. Resources [employer] SINGH Terrell is insurance case manager Ruddy Sosa is counselor - Telephone call to Sherry Powell encouraging this nursing home social worker to encourage patient to utilize counseling services and the [facility] on a consistent basis to be able to offer on going support. This nursing home social worker encouraged patient to continue using [facility] as a support to to follow up with counseling appointments in the community. Sherry reporting that patient does cancel or not show up for counseling appointments. Intervention Telephone call to [facility], referral information to be faxed when obtained. Plan Transfer to an inpatient psychiatric facility, [facility] pending approval. Jovanny FERRERA, TOM
[2018-08-15 16:11] LABS: Alcohol, Blood (Medical)-Serum < 3.0 mg/dL
--- NOTE | 2018-08-15 16:24 | CM.ED ---
Social Work Clinical information obtained and faxed to [facility]. Pending approval at this time. Jovanny FERRERA, TOM
[2018-08-15 16:53] VITALS: RESP 19
[2018-08-15 17:06] VITALS: BP 143/87; PULSE 93; RESP 17; TEMP 37.1; O2SAT 96
--- NOTE | 2018-08-15 17:07 | CM.ED ---
Social Work Telephone call from [facility]. Patient has been accepted to the [facility]. [phone] is number for report, nursing staff notified. Notified GAVINO Laguna floor polisher and Dr. Membreno. Dr. Membreno completing [place]. [place] faxed to [facility]. All agreeable to plan. Patient and patient mother notified and aware of plan. PLAN: Discharge to [facility] Jovanny FERRERA, TOM
--- NOTE | 2018-08-15 17:11 | NURSING ---
CALLED [facility], NONE AVAILABLE
--- NOTE | 2018-08-15 17:52 | NURSING ---
190 CALLED [facility]. ETA IS 1 TO 1.5 HRS
[2018-08-15 19:08] VITALS: BP 143/87; PULSE 78
== END 2018-08-15 19:10 ==
PROVIDERS: Emergency Medicine; Emergency Provider Emergency Medicine; Family Provider Family Medicine; PCP Family Medicine
DX: R45.851 Suicidal ideations (principal); R45.850 Homicidal ideations; F25.9 Schizoaffective disorder, unspecified; F31.9 Bipolar disorder, unspecified; F43.10 Post-traumatic stress disorder, unspecified; F41.9 Anxiety disorder, unspecified; F32.9 Major depressive disorder, single episode, unspecified; E66.9 Obesity, unspecified; J45.909 Unspecified asthma, uncomplicated; Z79.899 Other long term (current) drug therapy
CPT/HCPCS: 36415; 80048; 80307; 80320; 85025; 99285; G0480

== ENCOUNTER 2018-09-08 14:09 | Emergency (ER) | payer MEDICARE, MEDICAID, SELFPAY ==
[2018-09-08 14:10] VITALS: BP 154/75; PULSE 108; RESP 18; TEMP 36.4; O2SAT 94; BMI 39.4
[2018-09-08] MEDS: Acetaminophen 325 MG Tablet 650 MG PO (14:52)
[2018-09-08 15:17] LABS: Absolute Lymphocyte Count 2.16 X10^3/ul (0.83-4.51); Absolute Neutrophil Count 3.1 X10^3/uL (2.0-7.7); Hematocrit 40.1 % (40-54); Hemoglobin 13.9 g/dl (13.0-16.5); Lymphocyte # 2.16 X10^3/ul (4.0); Mean Corp Hgb Conc 34.7 g/gl (32-36); Mean Corpuscular Volume 77.9 fL (80-94); Mean Platelet Vol. 9.1 fl (6.2-12.0); Monocyte# 0.69 X10^3/uL; Monocyte% 11.5 % (0-10); Neutrophil # 3.13 X10^3/uL (2.7-7.7); Neutrophil % 52.2 % (47-70); Platelet Count 344 K/mm3 (150-450); RBC Distribution Width CV 14.1 % (11.6-14.6); RBC Distribution Width SD 39.3 fl (35.1-43.9); Red Blood Count 5.15 M/mm3 (4.6-6.2)
[2018-09-08 15:26] LABS: Amphetamine Urine VISTA NEGATIVE (<1000 ng/mL); Barbiturate Urine VISTA NEGATIVE (< 200 ng/mL); Benzodiazepine Urine VISTA NEGATIVE (< 200 ng/mL); Cocaine Urine VISTA NEGATIVE (< 300 ng/mL); Ecstacy Urine VISTA NEGATIVE (< 500 ng/mL); Methadone Urine VISTA NEGATIVE (< 300 ng/mL); PCP Urine VISTA NEGATIVE (< 25 ng/mL); THC Urine VISTA NEGATIVE (< 50 ng/mL); Vista UDS pH Range 6
--- NOTE | 2018-09-08 15:26 | ED.DCSUM_ITS ---
- ER Visit Summary Date of Service: 09/08/18 Chief Complaint: Suicidal and homicidal ideation History of Present Illness: The patient is a 22 M with a history of schizoaffective disorder, anxiety, depression, PTSD. He notified his counselor today that he was having suicidal and homicidal thoughts. He wanted to harm himself and his mother. He planned to stab himself. No attempt. History of similar symptoms in the past. No other complaints except for mild headache. Physical Examination: Afebrile and vital signs unremarkable. Head and neck atraumatic. Cranial nerves grossly intact. Heart regular. Lungs clear. Abdomen soft. Moves all extremities. Patient reports suicidal and homicidal thoughts. Test Results: Laboratory studies, drug screen pending. Emergency Department Course and Treatment: Patient had suicide precautions. A pink slip was completed by me. Patient will be monitored in the ED. He was evaluated by case management. We are awaiting further placement. The oncoming doctor will check the labs prior to transfer. Treatment Plan: As above Disposition: Transfer pending placement Impression: 1. Suicidal ideation 2. Homicidal ideation This note was generated with [employer] dictation software. It may contain incorrect words, spelling, and punctuation that were not noted in review of the chart prior to signing ED Disposition - Plan for ED Patient: Referrals: Turner Quick MD [Primary Care Provider] -
[2018-09-08 15:28] LABS: ALB/GLOB Ratio 1.1 RATIO (0.9-2.4); AST(SGOT) 23 U/L (15-37); Alanine Aminotransfer ALT/SGPT 45 U/L (16-61); Albumin, Serum 3.9 g/dL (3.2-5.0); Alkaline Phosphatase 116 U/L (45-117); Anion Gap 9 (5-15); BUN 11 mg/dL (7-18); Chloride 107 mmol/L (98-107); Creatinine, Serum 0.85 mg/dL (0.70-1.30); EST Glomerular Filtration Rate 117 mL/min (>60); Est Glom Filt Rate - Afr Amer 142 mL/min (>60); Estimated Creatinine Clearance 151.44 ml/min; Globulin 3.4 g/dL (2.2-4.2); Glucose 91 mg/dL (74-106); Potassium 3.7 mmol/L (3.5-5.1); Protein, Total 7.3 g/dL (6.4-8.2); Sodium Level 140 mmol/L (136-145)
--- NOTE | 2018-09-08 15:30 | CM.ED ---
Social Work Reason for Consult: Suicidal/Homocidal Thoughts Informant: Dr. Nuñez Chief Complaint: Patient stating to be hearing voicing that are negative and telling patient to Kill self and others. Patient stating to be having current thoughts of harming self as well as patient mother and patient friends. Patient stating that plan would be to get a knife and stab self in chest as well as stab those around patient. Patient also stating to feel as if bugs are crawling all over patient. Patient did see patient counselor today, Raymundo Sosa. Raymundo recommended for patient to come to the hospital for evaluation. Personal Status Mentation: patient A&Ox3 Present during assessment: Patient and patient mother. Patient mother, Tasha is patient guardian. Living Arrangements: Patient lives with patient mother. Employment: Employed through [employer] Family Dynamics/Relationships: Patient stating to have a good relationship with patient mother. Patient mother is stating to have recently started a new dating relationship and that patient was appearing to do well with this. Patient and patient mother do not believe that the dating relationship is a trigger for patient. Supports: [employer], Family, and [facility]. ADLs: Independent with basis ADL's does need assistance with cooking, cleaning, paying bills and managing medication per patient mother. Mental Health Hx and Current Status: Patient diagnosed with Bi-polar and does take medication to manage this. Patient mother reporting that patient does not remember to take medication on own and that patient needs to be reminded to take medication. Patient mother also stating that patient medication, Seroquel was recently increased. Patient does have a history of inpatient psychiatric stays, with last stay being at [facility]. Patient has now been home for about a month per patient. Patient stating that things were going well. Patient mother confirming that life was good. Patient does not identify any new triggers or changes at this time. Resources [employer] SINGH - [place] Terrell is onsite case manager Ruddy Sosa is counselor - Telephone call to Raymundo. Voicemail left. Impression: Patient presenting with thoughts of suicidal and homicidal ideation and plan. Patient is not safe to self or others to return to the community at this time. Collaborating with Dr. Nuñez. Plan will be to attempt placement at an inpatient psychiatric facility. Intervention Telephone call to [facility]. clinical information faxed. Pending approval. Plan: Transfer to an inpatient psychiatric facility pending. Jovanny FERRERA, TOM
[2018-09-08 15:41] LABS: POSITIVE COUNT NO; POSITIVE DIFFERENTIAL NO; POSITIVE MORPHOLOGY NO
[2018-09-08 16:06] LABS: Alcohol, Blood (Medical)-Serum < 3.0 mg/dL
--- NOTE | 2018-09-08 17:28 | ED.RN ---
lilian dallas ordered for pt. continues to be cooperative and pleasant and watching tv with sitter and mother in room
[2018-09-08 19:00] VITALS: BP 148/76; PULSE 78; RESP 16; O2SAT 97
--- NOTE | 2018-09-08 19:57 | CM.ED ---
Social Work Telephone call from [facility]. Patient has been accepted. This social security benefits interviewer faxed [place]. Ashley reporting to be able to set up transportation. Ashley setting up transportation and then will call this social security benefits interviewer back with confirmation of receiving [place] as well as Nurse to nurse report and receiving doctor. This social security benefits interviewer notified patient, nurse, and doctor. Jovanny Patino MSW, TOM
[2018-09-08 20:00] VITALS: RESP 16; O2SAT 97
--- NOTE | 2018-09-08 20:31 | CM.ED ---
Social Work Telephone call from [facility]. Nurse to Nurse report: [phone]. Dr. Blanton is accepting. Patient to admit to 300 unit room 2. Justice Wilson providing transportation and will car pick up driver patient at 9:00pm. Notified patient, RN, and patient mother. Jovanny FERRERA, TOM
[2018-09-08 21:00] VITALS: RESP 18; O2SAT 96
== END 2018-09-08 21:21 ==
PROVIDERS: Emergency Provider Emergency Medicine; Family Provider Family Medicine; PCP Family Medicine
DX: R45.850 Homicidal ideations (principal); R45.851 Suicidal ideations; F43.10 Post-traumatic stress disorder, unspecified; F25.9 Schizoaffective disorder, unspecified; R51 Headache; F41.9 Anxiety disorder, unspecified; F32.9 Major depressive disorder, single episode, unspecified
CPT/HCPCS: 80053; 80307; 80320; 85025; 99285; G0480

== ENCOUNTER 2018-10-03 13:38 | Emergency (ER) | payer MEDICARE, MEDICAID, SELFPAY ==
[2018-10-03 13:38] VITALS: BP 161/79; PULSE 94; RESP 18; TEMP 36.7
[2018-10-03 13:39] VITALS: BP 161/79; PULSE 94; RESP 18; TEMP 36.7; BMI 42.3
--- NOTE | 2018-10-03 15:15 | ED.DCSUM_ITS ---
- ER Visit Summary Date of Service: 10/03/18 Chief Complaint: [Depression and suicidal ideation] History of Present Illness: The patient is a 23 M [presents to the emergency department with complaint of feeling depressed and suicidal. Patient states that he started feeling this way yesterday. Patient is hearing voices telling him to end his life. Patient is having thoughts of wanting to cut himself with a knife. Patient has been taking his medications regularly. Patient does have history of depression, bipolar, schizophrenia, PTSD, and paranoia. Patient is not sure what may have triggered these thoughts. His last hospitalization was in August.] Physical Examination: [HEENT-PERRLA, EOMI. Cranial nerves II through XII grossly intact. TMs clear. Mucous membranes moist. No adenopathy. Cardiovascular-regular rate and rhythm without murmur or ectopy Lungs-clear to auscultation, chest wall stable without crepitus or subcu emphysema Abdomen-normoactive bowel sounds, soft, nontender, no rebound or rigidity, no peritoneal signs. Extremities-intact ?4, normal range of motion, normal pulses, atraumatic] Test Results: [CBC with differential is normal. Chemistries normal. Toxicology screen was negative. Alcohol was negative.] Emergency Department Course and Treatment: [Patient was seen by social and political studies professor who made arrangements for patient to be transferred to psychiatric facility.] Treatment Plan: [Transfer to psychiatric facility] Disposition: [Transfer] Impression: [Suicidal ideation Depression Psychosis] This note was generated with [employer] dictation software. It may contain incorrect words, spelling, and punctuation that were not noted in review of the chart prior to signing ED Disposition - Plan for ED Patient: Referrals: Turner Quick MD [Primary Care Provider] -
--- NOTE | 2018-10-03 15:40 | CM.ED ---
SOCIAL WORK INFORMANT: DR. MOREAU REASON FOR REFERRAL: SUICIDAL IDEATION, HEARING VOICES CHIEF COMPLIANT: PATIENT STATING TO BE HEARING WICKED VOICES TELLING PATIENT TO KILL HIMSELF AND TAKE MOTHER WITH ME. PATIENT STATES VOICES BEGAN ON TUESDAY EVENING. PATIENT STATES PLAN IS TO SLICE OPEN MY LEG AND BLEED. PATIENT STATES DID HAVE COUNSELING THIS MORNING AT [facility]. PERSONAL STATUS: MENTATION: PATIENT ALERT AND ORIENTED X3. PATIENT'S MOTHER PRESENT DURING ASSESSMENT AND STATES HAS FEARS TAKING PATIENT HOME D/T SUICIDAL IDEATIONS. PATIENT LIVES HOME WITH MOTHER. FAMILY DYNAMICS/RELATIONSHIPS: PATIENT STATES HAS GOOD RELATIONSHIP WITH HIS MOTHER AND MOTHER'S BOYFRIEND, JAMSHID. MOTHER STATES PATIENT DOES HAVE ATTENTION SEEKING BEHAVIORS. MOTHER STATES PATIENT REQUIRES A LOT OF ATTENTION. SUPPORTS: [facility], [facility], AND [facility]. MENTAL HEALTH HX: PATIENT WITH HX OF BIPOLAR DISORDER. PATIENT HAD RECENT HOSPITALIZATION AT [facility] IN AUGUST. MOTHER REPORTS PATIENT IS NOT ALWAYS FORTHCOMING WITH TRIGGERS AND DOES NOT UTILIZE SUPPORTS. MOTHER FEELS PATIENT WOULD BENEFIT FROM INPATIENT HOSPITALIZATION. SUBSTANCE ABUSE HX: PATIENT DENIES ANY HX. DISCUSSED WITH DR. MOREAU. PATIENT WITH SUICIDAL/HOMICIDAL THOUGHTS. PLAN FOR INPATIENT HOSPITALIZATION. THIS WORKER TO MAKE APPROPRIATE REFERRAL. PAMELA BRUCE, DEALER COMPLIANCE REPRESENTATIVE, CLINICAL SCIENTIST.
[2018-10-03 16:09] LABS: Absolute Lymphocyte Count 2.35 X10^3/uL (0.83-4.51); Absolute Neutrophil Count 3.4 X10^3/uL (2.0-7.7); Eosinophil# 0.01 X10^3/uL; Eosinophils% 0.2 % (0-5); Hematocrit 42.4 % (40-54); Hemoglobin 13.9 g/dL (13.0-16.5); Lymphocyte # 2.35 X10^3/ul (4.0); Mean Corp Hgb Conc 32.8 g/dL (32-36); Mean Corpuscular Hgb 26.8 pg (27.0-32.0); Mean Corpuscular Volume 81.7 fL (80-94); Mean Platelet Vol. 8.9 fl (6.2-12.0); Monocyte# 0.36 X10^3/uL; Monocyte% 5.8 % (0-10); NRBC Flagged by Analyzer 0 % (0-5); Neutrophil # 3.44 X10^3/uL (2.7-7.7); Neutrophil % 55.7 % (47-70); Platelet Count 288 K/mm3 (150-450); RBC Distribution Width CV 13.3 % (11.6-14.6); RBC Distribution Width SD 39.8 fl (35.1-43.9); Red Blood Count 5.19 M/mm3 (4.6-6.2); White Blood Count 6.2 K/mm3 (4.4-11.0)
[2018-10-03 16:17] VITALS: BP 158/85; PULSE 85; RESP 14; O2SAT 98
[2018-10-03 16:22] LABS: Anion Gap 8 (5-15); BUN 11 mg/dL (7-18); BUN/Creat Ratio 11.1 RATIO (10-20); Calcium,Total 9.1 mg/dL (8.5-10.1); Chloride 106 mmol/L (98-107); Creatinine, Serum 0.99 mg/dL (0.70-1.30); EST Glomerular Filtration Rate 98 mL/min (>60); Est Glom Filt Rate - Afr Amer 119 mL/min (>60); Estimated Creatinine Clearance 121.49 ml/min; Glucose 151 mg/dL (74-106); Potassium 3.7 mmol/L (3.5-5.1); Sodium Level 137 mmol/L (136-145)
[2018-10-03 16:27] LABS: Amphetamine Urine VISTA NEGATIVE (<1000 ng/mL); Barbiturate Urine VISTA NEGATIVE (< 200 ng/mL); Benzodiazepine Urine VISTA NEGATIVE (< 200 ng/mL); Cocaine Urine VISTA NEGATIVE (< 300 ng/mL); Ecstacy Urine VISTA NEGATIVE (< 500 ng/mL); Methadone Urine VISTA NEGATIVE (< 300 ng/mL); PCP Urine VISTA NEGATIVE (< 25 ng/mL); THC Urine VISTA NEGATIVE (< 50 ng/mL); Vista UDS pH Range 6
--- NOTE | 2018-10-03 16:30 | CM.ED ---
SOCIAL WORK MOTHER REQUESTED THIS WORKER CHECK BED AVAILABILITY AT [facility]. CALL TO [facility], NO BED AVAILABLE. REFERRAL TO BE MADE TO [facility].
--- NOTE | 2018-10-03 17:00 | CM.ED ---
SOCIAL WORK REFERRAL CALLED AND FAXED TO [facility] AT THIS TIME. FASHION STYLIST TO REVIEW AND GET BACK TO THIS WORKER. PAMELA BRUCE, TELEVISION CAMERAMAN, MESSAGE AND DELIVERY SERVICE PRICER.
--- NOTE | 2018-10-03 17:50 | CM.ED ---
SOCIAL WORK PATIENT ACCEPTED TO [facility]. ACCEPTING PHYSICIAN IS DR. LEAL. PATIENT TO GO TO UNIT 300 BED 2. RN TO CALL REPORT TO . PATIENT, NURSE, AND DR. MOREAU UPDATED. PINK SLIP FAXED TO [facility]. PAMELA BRUCE, DEPARTMENT STORE MANAGER, CONDUIT HELPER.
--- NOTE | 2018-10-03 17:56 | NURSING ---
ACCEPTED AT [facility]
--- NOTE | 2018-10-03 18:19 | NURSING ---
[facility] SENDING RIDE. WILL BE HERE AT 2000
[2018-10-03 19:02] VITALS: BP 155/70; PULSE 80; RESP 14; O2SAT 98
[2018-10-03 19:09] VITALS: BP 151/80; PULSE 80; RESP 16; TEMP 36.6; O2SAT 97
== END 2018-10-03 19:55 ==
LOC: ED 15:13
PROVIDERS: Emergency Provider Emergency Medicine; Family Provider Family Medicine; PCP Family Medicine
DX: R45.851 Suicidal ideations (principal); F31.9 Bipolar disorder, unspecified; F20.9 Schizophrenia, unspecified; F43.10 Post-traumatic stress disorder, unspecified
CPT/HCPCS: 80048; 80307; 80320; 85025; 99284; G0480

== ENCOUNTER 2018-12-01 23:04 | Emergency (ER) | payer MEDICARE, MEDICAID, SELFPAY ==
[2018-12-01 23:06] VITALS: BP 143/79; PULSE 114; RESP 16; TEMP 36.6; O2SAT 96; BMI 44.1
--- NOTE | 2018-12-01 23:25 | ED.VIS.GEN ---
History of Present Illness Chief Complaint: Suicidal Informant: Patient, Family Onset: Today Narrative: Presents with mother increasing suicidal ideations today. States feeling down. History of schizophrenia, autism, seizure disorder followed by Evelina at [facility]. Sees monthly. Gets in [place] shots monthly. Is also on Lamictal and Seroquel. Discharge 6 weeks ago from [facility] per patient. Auditory hallucinations voices telling him to kill himself. Visual hallucinations stating he sees skeletons in [place]. This is normal for him. Denies homicidal ideations. States had plans of hurting himself with a knife by cutting and stabbing. Mother states he had a superficial abrasion earlier today did not take it seriously however was told by a friend when patient went with her to [place] therefore was brought here. Patient denies any chest pain shortness of breath nausea or vomiting. No urinary symptoms. Prior similar symptoms: Yes Past Medical History - Allergies and Home Meds Allergies/Adverse Reactions: Allergies carbamazepine [From Tegretol] Allergy (Verified 12/01/18 23:06) Unknown divalproex sodium [From Depakote] Allergy (Verified 12/01/18 23:06) Other methylphenidate [From Concerta] Allergy (Verified 12/01/18 23:06) Unknown methylphenidate HCl [From Ritalin] Allergy (Verified 12/01/18 23:06) Unknown phenobarbital Allergy (Verified 12/01/18 23:06) Hives Primary Care Physician: Turner Quick MD [Primary Care Provider] - Surgical History: - - Hernia repair Smoking Status: Never smoker - Family History Maternal Family History: Family History (Last Updated 05/29/17 @ 13:30 by Itzel Pablo) Other Asthma Diabetes Hypertension Kidney disease Family History: Reports: No pertinent history Review of Systems All systems negative except as indicated General: Denies: Chills, Fever, Sweats Eyes: Denies: Visual changes - bilaterally, Diplopia ENT: Denies: Rhinorrhea, Sore throat Cardiovascular: Denies: Chest pain, Palpitations Respiratory: Denies: Dyspnea, Cough, Dyspnea on exertion Gastrointestinal: Denies: Abdominal pain, Nausea, Vomiting, Diarrhea, Melena, Hematochezia Genitourinary: Denies: Dysuria, Hematuria, Frequency Musculoskeletal: Denies: Back pain, Extremity Pain Skin: Denies: Rash, Wounds Neurological: Denies: Headache, Weakness, Numbness Psych: Reports: Depression, Suicidal thoughts, Suicidal ideations Physical Exam Vital Signs/Narrative: Vital Signs Temp Pulse Resp BP Pulse Ox 12/01/18 23:06 97.8 F 114 H 16 143/79 H 96 Inital Vital Signs reviewed: Yes General: Well nourished, Well developed, No Acute Distress Head: Normocephalic, Atraumatic Eyes: Perrl, EOMI ENT: Moist mucous membranes, No rhinorrhea Neck: Supple, Nontender Cardiovascular: Regular rate, Regular rhythm, No murmurs Respiratory: No distress, CTA bilaterally, Chest nontender Abdomen: Soft, Nontender, Nondistended, Normal bowel sounds Back: Nontender, Normal Inspection Extremities: Nontender, No edema Skin: Normal color, No rash, - - Left forearm: Red line superficially noted, skin is intact, no laceration. Neurological: Alert, Oriented x3, Cranial nerves II-XII grossly intact, Normal Strength, Normal Sensation Psychological: - - Flat affect, cooperative, admits to suicidal ideations. Diagnostic/Tx/Re-eval - Medical Decision Making Abnormal Lab Results 12/01/18 12/01/18 12/01/18 23:28 23:28 23:28 WBC 8.1 RBC 4.82 Hgb 13.1 Hct 38.2 L MCV 79.3 L MCH 27.2 MCHC 34.3 RDW Std Deviation 38.7 RDW Coeff of Nano 13.6 Plt Count 278 MPV 8.8 Immature Gran % (Auto) 0.400 Neut % (Auto) 55.5 Lymph % (Auto) 34.2 [place] % (Auto) 9.7 Eos % (Auto) 0.1 Baso % (Auto) 0.1 Absolute Neuts (auto) 4.5 Absolute Lymphs (auto) 2.78 Nucleated RBC % 0 Sodium 140 Potassium 3.5 Chloride 107 Carbon Dioxide 25.0 Anion Gap 8 BUN 10 Creatinine 0.85 Estim Creat Clear Calc 137.17 Est GFR (MDRD) Af Amer 140 Est GFR (MDRD) Non-Af 116 BUN/Creatinine Ratio 11.7 Glucose 116 H Calcium 8.9 Urine Opiates Screen Urine Methadone Screen Ur Barbiturates Screen Ur Phencyclidine Scrn Ur Amphetamines Screen U Methamphetamin-MDMA U Benzodiazepines Scrn Urine Cocaine Screen U Cannabinoids Screen Ur Drug Screen Comment Ethyl Alcohol < 3.0 12/01/18 23:45 WBC RBC Hgb Hct MCV MCH MCHC RDW Std Deviation RDW Coeff of Nano Plt Count MPV Immature Gran % (Auto) Neut % (Auto) Lymph % (Auto) [place] % (Auto) Eos % (Auto) Baso % (Auto) Absolute Neuts (auto) Absolute Lymphs (auto) Nucleated RBC % Sodium Potassium Chloride Carbon Dioxide Anion Gap BUN Creatinine Estim Creat Clear Calc Est GFR (MDRD) Af Amer Est GFR (MDRD) Non-Af BUN/Creatinine Ratio Glucose Calcium Urine Opiates Screen NEGATIVE Urine Methadone Screen NEGATIVE Ur Barbiturates Screen NEGATIVE Ur Phencyclidine Scrn NEGATIVE Ur Amphetamines Screen NEGATIVE U Methamphetamin-MDMA NEGATIVE U Benzodiazepines Scrn NEGATIVE Urine Cocaine Screen NEGATIVE U Cannabinoids Screen NEGATIVE Ur Drug Screen Comment Ethyl Alcohol Patient cooperative, admits to suicidal ideations. Medical clearance labs all stable. Patient is medically cleared. Patient evaluated by [facility], pending disposition at this time. Patient evaluated, pink slip. Patient accepted to [facility] under the service Dr. Tarango ED Disposition - Plan for ED Patient: Disposition: Psychiatric Hospital or Unit Diagnosis: Suicidal ideation Referrals: Turner Quick MD [Primary Care Provider] -
[2018-12-01 23:48] LABS: Absolute Lymphocyte Count 2.78 X10^3/uL (0.83-4.51); Absolute Neutrophil Count 4.5 X10^3/uL (2.0-7.7); Basophil# 0.01 X10^3/uL; Basophil% 0.1 % (0-1); Eosinophil# 0.01 X10^3/uL; Eosinophils% 0.1 % (0-5); Hematocrit 38.2 % (40-54); Hemoglobin 13.1 g/dL (13.0-16.5); Lymphocyte # 2.78 X10^3/ul (4.0); Lymphocyte % 34.2 % (19-41); Mean Corp Hgb Conc 34.3 g/dL (32-36); Mean Corpuscular Hgb 27.2 pg (27.0-32.0); Mean Corpuscular Volume 79.3 fL (80-94); Mean Platelet Vol. 8.8 fl (6.2-12.0); Monocyte# 0.79 X10^3/uL; Monocyte% 9.7 % (0-10); NRBC Flagged by Analyzer 0 % (0-5); Neutrophil % 55.5 % (47-70); Platelet Count 278 K/mm3 (150-450); RBC Distribution Width CV 13.6 % (11.6-14.6); RBC Distribution Width SD 38.7 fl (35.1-43.9); Red Blood Count 4.82 M/mm3 (4.6-6.2); White Blood Count 8.1 K/mm3 (4.4-11.0)
[2018-12-01 23:49] LABS: Anion Gap 8 (5-15); BUN 10 mg/dL (7-18); BUN/Creat Ratio 11.7 RATIO (10-20); Calcium,Total 8.9 mg/dL (8.5-10.1); Chloride 107 mmol/L (98-107); Creatinine, Serum 0.85 mg/dL (0.70-1.30); EST Glomerular Filtration Rate 116 mL/min (>60); Est Glom Filt Rate - Afr Amer 140 mL/min (>60); Estimated Creatinine Clearance 137.17 ml/min; Glucose 116 mg/dL (74-106); Potassium 3.5 mmol/L (3.5-5.1); Sodium Level 140 mmol/L (136-145)
[2018-12-02 00:02] LABS: Alcohol, Blood (Medical)-Serum < 3.0 mg/dL
[2018-12-02 00:04] VITALS: PULSE 104; RESP 16; O2SAT 96
[2018-12-02 00:10] LABS: Amphetamine Urine VISTA NEGATIVE (<1000 ng/mL); Barbiturate Urine VISTA NEGATIVE (< 200 ng/mL); Benzodiazepine Urine VISTA NEGATIVE (< 200 ng/mL); Cocaine Urine VISTA NEGATIVE (< 300 ng/mL); Ecstacy Urine VISTA NEGATIVE (< 500 ng/mL); Methadone Urine VISTA NEGATIVE (< 300 ng/mL); PCP Urine VISTA NEGATIVE (< 25 ng/mL); THC Urine VISTA NEGATIVE (< 50 ng/mL); Vista UDS pH Range 6
[2018-12-02 02:23] VITALS: RESP 18
[2018-12-02 03:38] VITALS: BP 122/68; PULSE 107; RESP 18; O2SAT 95
[2018-12-02 06:58] VITALS: BP 126/68; PULSE 107; RESP 18; O2SAT 95
[2018-12-02 07:07] VITALS: RESP 18
[2018-12-02] MEDS: Escitalopram Oxalate 10 MG Tablet PO (07:29)
[2018-12-02] MEDS: Gabapentin 300 MG Capsule PO (07:30)
[2018-12-02] MEDS: hydrOXYzine PAM 25 MG Capsule 50 MG PO (07:30)
[2018-12-02] MEDS: lamoTRIgine 150 MG Tablet PO (07:30)
[2018-12-02] MEDS: Pantoprazole Sodium 40 MG Tablet PO (07:31)
[2018-12-02] MEDS: Benztropine 2 MG Tablet 0.5 MG PO (07:32)
[2018-12-06 13:21] LABS: Lamotrigine (Lamictal) Level 2.2 ug/mL (2.0-20.0)
== END 2018-12-02 09:11 ==
PROVIDERS: Emergency Provider Emergency Medicine; Family Provider Family Medicine; PCP Family Medicine
DX: R45.851 Suicidal ideations (principal); F20.9 Schizophrenia, unspecified; F84.0 Autistic disorder; G40.909 Epilepsy, unspecified, not intractable, without status epilepticus; Z79.899 Other long term (current) drug therapy
CPT/HCPCS: 80048; 80307; 80320; 82542; 85025; 99284; G0480

== ENCOUNTER 2019-01-18 16:03 | Emergency (ER) | payer MEDICARE, MEDICAID, SELFPAY ==
[2019-01-18 16:06] VITALS: BP 145/77; PULSE 97; RESP 16; TEMP 36.7; O2SAT 95; BMI 35.9
--- NOTE | 2019-01-18 16:42 | ED.VISSUMM ---
- ER Visit Summary Date of Service: 01/18/19 Chief Complaint: Suicidal ideation History of Present Illness: The patient is a 23 M with suicidal ideation since yesterday. The patient has a history of ADHD, Asperger's, and schizoaffective disorder. He says he is compliant with his medications. He reports increasing depression and suicidal thoughts because of stress and burnout in his life. His mom is currently hospitalized for suicidal thoughts. He plans to cut himself open, but does not have an attempt. He also says he sees black figures and creatures. No medical complaints. Physical Examination: Afebrile and vital signs unremarkable. Patient is alert and oriented. He reports suicidal thoughts as well as visual and auditory hallucinations of creatures. Has an unremarkable exam otherwise. Test Results: CBC, CMP, tox, and alcohol pending. Emergency Department Course and Treatment: Patient had suicide precautions. [place] slip completed by me. We will perform medical clearance and crisis will evaluate. Work-up is unremarkable. Patient remained stable. He is not requiring emergency medicine. He will be evaluated by crisis for placement. Treatment Plan: As above Disposition: Pending placement Impression: 1. Suicidal ideation This note was generated with [employer] dictation software. It may contain incorrect words, spelling, and punctuation that were not noted in review of the chart prior to signing ED Disposition - Plan for ED Patient: Referrals: Turner Quick MD [Primary Care Provider] -
--- NOTE | 2019-01-18 16:42 | CM.ED ---
SOCIAL WORK SPOKE WITH [facility]Y AT [facility]. CRISIS SENT PATIENT IN AND HAS COMPLETED ASSESSMENT. [facility] WILL FAX ASSESSMENT ONCE COMPLETED. CRISIS FOLLOWING. STAFF SAURABH. Gwendolyn BRUCE MSW, MANAGER PRIVATE.
[2019-01-18 17:02] LABS: Absolute Lymphocyte Count 1.79 X10^3/uL (0.83-4.51); Absolute Neutrophil Count 3.3 X10^3/uL (2.0-7.7); Basophil# 0.01 X10^3/uL; Basophil% 0.2 % (0-1); Eosinophil# 0.01 X10^3/uL; Eosinophils% 0.2 % (0-5); Hematocrit 40.2 % (40-54); Hemoglobin 13.2 g/dL (13.0-16.5); Lymphocyte # 1.79 X10^3/ul (4.0); Lymphocyte % 30.5 % (19-41); Mean Corp Hgb Conc 32.8 g/dL (32-36); Mean Corpuscular Hgb 26.3 pg (27.0-32.0); Mean Corpuscular Volume 80.1 fL (80-94); Monocyte# 0.76 X10^3/uL; Monocyte% 12.9 % (0-10); NRBC Flagged by Analyzer 0 % (0-5); Neutrophil # 3.29 X10^3/uL (2.7-7.7); Platelet Count 281 K/mm3 (150-450); RBC Distribution Width CV 13.5 % (11.6-14.6); RBC Distribution Width SD 38.9 fl (35.1-43.9); Red Blood Count 5.02 M/mm3 (4.6-6.2); White Blood Count 5.9 K/mm3 (4.4-11.0)
[2019-01-18 17:09] LABS: Amphetamine Urine VISTA NEGATIVE (<1000 ng/mL); Barbiturate Urine VISTA NEGATIVE (< 200 ng/mL); Benzodiazepine Urine VISTA NEGATIVE (< 200 ng/mL); Cocaine Urine VISTA NEGATIVE (< 300 ng/mL); Ecstacy Urine VISTA NEGATIVE (< 500 ng/mL); Methadone Urine VISTA NEGATIVE (< 300 ng/mL); PCP Urine VISTA NEGATIVE (< 25 ng/mL); THC Urine VISTA NEGATIVE (< 50 ng/mL); Vista UDS pH Range 6
[2019-01-18 17:14] LABS: ALB/GLOB Ratio 1.1 RATIO (0.9-2.4); AST(SGOT) 13 U/L (15-37); Alanine Aminotransfer ALT/SGPT 34 U/L (16-61); Albumin, Serum 3.8 g/dL (3.2-5.0); Alkaline Phosphatase 106 U/L (45-117); Anion Gap 9 (5-15); BUN 13 mg/dL (7-18); BUN/Creat Ratio 17.8 RATIO (10-20); Calcium,Total 8.9 mg/dL (8.5-10.1); Chloride 108 mmol/L (98-107); Creatinine, Serum 0.73 mg/dL (0.70-1.30); EST Glomerular Filtration Rate 138 mL/min (>60); Est Glom Filt Rate - Afr Amer 167 mL/min (>60); Estimated Creatinine Clearance 159.72 ml/min; Globulin 3.5 g/dL (2.2-4.2); Glucose 92 mg/dL (74-106); Potassium 3.6 mmol/L (3.5-5.1); Protein, Total 7.3 g/dL (6.4-8.2); Sodium Level 141 mmol/L (136-145)
[2019-01-18 17:24] LABS: Alcohol, Blood (Medical)-Serum < 3.0 mg/dL
--- NOTE | 2019-01-18 17:44 | ED.RN ---
CRISIS REFERRED PT TO [facility]
[2019-01-18 18:39] VITALS: RESP 12
[2019-01-18 20:24] VITALS: BP 124/81; PULSE 107; RESP 18; O2SAT 95
[2019-01-18 22:17] VITALS: BP 133/70; PULSE 86; RESP 18; O2SAT 99
== END 2019-01-18 22:19 | disposition home or self-care (01) ==
PROVIDERS: Emergency Provider Emergency Medicine; Family Provider Family Medicine; PCP Family Medicine
DX: R45.851 Suicidal ideations (principal); F25.9 Schizoaffective disorder, unspecified; F84.5 Asperger's syndrome; F90.9 Attention-deficit hyperactivity disorder, unspecified type; F32.9 Major depressive disorder, single episode, unspecified; F41.9 Anxiety disorder, unspecified
CPT/HCPCS: 36415; 80053; 80307; 80320; 85025; 99284; G0480

== ENCOUNTER 2019-04-18 16:19 | Emergency (ER) | payer MEDICARE, MEDICAID, SELFPAY ==
[2019-04-18 16:19] VITALS: PULSE 99; RESP 18
[2019-04-18 16:20] VITALS: BP 152/87; PULSE 101; RESP 20; TEMP 37.1; O2SAT 95; BMI 41.3
--- NOTE | 2019-04-18 16:53 | CT_ITS ---
STUDY: CT ABDOMEN AND PELVIS WITHOUT CONTRAST REASON FOR EXAM: Male, 23 years old. RT SIDE ABDOMEN PAIN WITH NAUSEA H/O KIDNEY STONE RADIATION DOSAGE (If Supplied By Facility): CTDIvol = ( 24.01 ) mGy, DLP = ( 1541.74 ) mGycm TECHNIQUE: Transaxial images were obtained from the dome of the diaphragm to the symphysis pubis without oral contrast, and without intravenous contrast. Sagittal and coronal images were reconstructed. Individualized dose optimization techniques were used for this CT. COMPARISON: 01/14/2016 FINDINGS: The visualized lung bases are unremarkable. The visualized portions of the heart are within normal limits. Normal liver. Normal gallbladder and extrahepatic biliary system. Normal spleen. Normal pancreas. Normal bilateral adrenal glands. Normal right kidney. Normal left kidney. Normal visualized stomach. Normal small intestine. Normal colon. There is non-visualization of the appendix. Normal abdominal aorta. Normal inferior vena cava. Normal retroperitoneum. Normal urinary bladder. Normal abdominal wall. Normal osseous structures. CT/Abdomen/Pelvis without Cont IMPRESSION: Normal unenhanced CT of the abdomen and pelvis. No renal or ureter stone. Electronically Signed: Gonzalo Henderson MD at 17:33 EST Tel , Service support ,
--- NOTE | 2019-04-18 16:54 | ED.DCSUM_ITS ---
- ER Visit Summary Date of Service: 04/18/19 Chief Complaint: Right flank pain History of Present Illness: The patient is a 23 M who presents with right flank pain that began today after lunch. Patient states the pain began suddenly in his right flank area. Patient describes the pain as sharp. Patient states the pain radiates to his right lower abdomen. Patient admits to nausea but denies any vomiting. Patient states he did have an episode of diarrhea yesterday but currently denies any diarrhea. Patient denies any melena or hematochezia. Patient denies any dysuria or hematuria. Patient denies any fevers or chills. Physical Examination: Vital signs are stable. Patient is afebrile. Patient is in no acute distress. Oral mucosa is pink and moist. Neck is supple. Trachea is midline. There is no JVD. Heart was regular rate and rhythm. Lungs are clear and equal bilaterally. Abdomen is soft. Bowel sounds are normal. There is right flank tenderness and right lower quadrant tenderness. There is no rebound or guarding noted. Cranial nerves II through XII are intact. There are no focal motor or sensory deficits noted. Test Results: CBC and basic metabolic profile were obtained and were within normal limits. Urinalysis shows leukocyte esterase of 25 with 5-10 white blood cells. There are no bacteria noted. Nitrates were negative. CT scan of the abdomen and pelvis was obtained. There is no acute abnormality noted. There is no ureteral calculus noted. Emergency Department Course and Treatment: Patient was given IV fluids, Zofran, and Toradol here. Patient was still having some pain on reevaluation. Patient was given a dose of morphine. Patient was advised of his results. Patient was instructed to drink lots of fluids. Patient was instructed to follow-up with his primary care physician in 5 to 7 days for further reevaluation. Patient and family understood and were agreeable with the plan. All questions were answered. Disposition: Discharge home Impression: Right flank pain This note was generated with [employer] dictation software. It may contain incorrect words, spelling, and punctuation that were not noted in review of the chart prior to signing ED Disposition - Plan for ED Patient: Disposition: Home or Assisted Living Diagnosis: Acute right flank pain Instructions: FLANK PAIN, Uncertain Cause Referrals: Turner Quick MD [Primary Care Provider] - 5-7 Days
[2019-04-18 16:59] LABS: Bacteria 0 SEEN /hpf (None Seen); Red Blood Cells-Urine 0 SEEN /hpf (0-5)
[2019-04-18 17:00] LABS: Absolute Lymphocyte Count 2.21 X10^3/uL (0.83-4.51); Absolute Neutrophil Count 5.5 X10^3/uL (2.0-7.7); Basophil# 0.01 X10^3/uL; Basophil% 0.1 % (0-1); Eosinophil# 0.01 X10^3/uL; Eosinophils% 0.1 % (0-5); Hematocrit 39.9 % (40-54); Hemoglobin 13.1 g/dL (13.0-16.5); Lymphocyte # 2.21 X10^3/ul (4.0); Mean Corp Hgb Conc 32.8 g/dL (32-36); Mean Corpuscular Hgb 25.7 pg (27.0-32.0); Mean Corpuscular Volume 78.4 fL (80-94); Mean Platelet Vol. 9.1 fl (6.2-12.0); Monocyte# 0.75 X10^3/uL; Monocyte% 8.8 % (0-10); NRBC Flagged by Analyzer 0 % (0-5); Neutrophil # 5.49 X10^3/uL (2.7-7.7); Neutrophil % 64.6 % (47-70); Platelet Count 295 K/mm3 (150-450); RBC Distribution Width CV 14.4 % (11.6-14.6); RBC Distribution Width SD 40.4 fl (35.1-43.9); Red Blood Count 5.09 M/mm3 (4.6-6.2); White Blood Count 8.5 K/mm3 (4.4-11.0)
[2019-04-18 17:13] LABS: Anion Gap 6 (5-15); BUN 13 mg/dL (7-18); BUN/Creat Ratio 14.9 RATIO (10-20); Calcium,Total 9.5 mg/dL (8.5-10.1); Chloride 109 mmol/L (98-107); Creatinine, Serum 0.88 mg/dL (0.70-1.30); EST Glomerular Filtration Rate 112 mL/min (>60); Est Glom Filt Rate - Afr Amer 136 mL/min (>60); Estimated Creatinine Clearance 140.85 ml/min; Glucose 92 mg/dL (74-106); Potassium 3.9 mmol/L (3.5-5.1); Sodium Level 141 mmol/L (136-145)
[2019-04-18 17:14] LABS: Color, Urine Yellow (Yellow); Glucose, Dipstick Normal (Normal); Ketone-Dipstick 5 mg/dl (Negative); Leukocyte Esterase-Dipstick 25 /ul (Negative); Nitrite-Dipstick Negative (Negative); Occult Blood-Urine Negative /ul (Negative); Protein-Dipstick 15 mg/dl (Negative); Urine Bilirubin Dipstick Negative (Negative); Urine Clarity Sl. Cloudy (Clear); Urine Urobilinogen Normal (Normal)
[2019-04-18] MEDS: Ketorolac 30 MG/ML Syringe IV (17:18)
[2019-04-18] MEDS: Ondansetron 4 MG/2 ML Vial IV (17:18)
[2019-04-18] MEDS: 0.9% Normal Saline 1,000 ML 250 ML IV (17:18)
[2019-04-18 17:20] LABS: Squamous Epithelial Cells - UA 0-5 SEEN /hpf (0-5); White Blood Cells 5-10 SEEN /hpf (0-5)
[2019-04-18 17:21] LABS: Mucous, Urine RARE /hpf (<or=2+)
[2019-04-18] MEDS: Morphine 2 MG/ML Syringe IV (18:54)
[2019-04-18 18:58] VITALS: BP 129/76; PULSE 83; RESP 14; O2SAT 97
== END 2019-04-18 18:59 | disposition home or self-care (01) ==
PROVIDERS: Emergency Provider Emergency Medicine; PCP Family Medicine
DX: R10.9 Unspecified abdominal pain (principal); R11.0 Nausea; M54.9 Dorsalgia, unspecified; J45.909 Unspecified asthma, uncomplicated; F84.5 Asperger's syndrome; F25.9 Schizoaffective disorder, unspecified; Z87.442 Personal history of urinary calculi
CPT/HCPCS: 74176; 80048; 81001; 85025; 96361; 96374; 96375; 99284; J7030; A4216; J2405

== ENCOUNTER 2019-07-09 17:29 | Emergency (ER) | payer MEDICARE, MEDICAID, SELFPAY ==
[2019-07-09 17:29] VITALS: BP 153/97; PULSE 98; RESP 20; TEMP 36.6; O2SAT 96; BMI 44.4
--- NOTE | 2019-07-09 17:42 | CM.ED ---
SOCIAL WORK RECEIVED CALL FROM [facility] WITH CRISIS PRIOR TO PATIENT'S ARRIVAL. PER [facility], ASSESSMENT HAS BEEN COMPLETED. PATIENT REQUIRES HOSPITALIZATION DUE TO SUICIDAL IDEATION. [facility]ISIS TO FACILITATE PLACEMENT ONCE PATIENT IS MEDICALLY CLEARED. STAFF SAURABH. Gwendolyn BRUCE MSW, GEOMATICS PROFESSOR.
--- NOTE | 2019-07-09 18:32 | ED.RN ---
CRISIS ASSESSMENT FAXED TO US PER SHAHNAZ
[2019-07-09 18:53] LABS: Amphetamine Urine VISTA NEGATIVE (<1000 ng/mL); Barbiturate Urine VISTA NEGATIVE (< 200 ng/mL); Benzodiazepine Urine VISTA NEGATIVE (< 200 ng/mL); Cocaine Urine VISTA NEGATIVE (< 300 ng/mL); Ecstacy Urine VISTA NEGATIVE (< 500 ng/mL); Methadone Urine VISTA NEGATIVE (< 300 ng/mL); PCP Urine VISTA NEGATIVE (< 25 ng/mL); THC Urine VISTA NEGATIVE (< 50 ng/mL); Vista UDS pH Range 6
[2019-07-09 18:58] LABS: Absolute Lymphocyte Count 2.67 X10^3/uL (0.83-4.51); Absolute Neutrophil Count 5.8 X10^3/uL (2.0-7.7); Basophil# 0.01 X10^3/uL; Basophil% 0.1 % (0-1); Eosinophil# 0.14 X10^3/uL; Eosinophils% 1.5 % (0-5); Hematocrit 41.2 % (40-54); Hemoglobin 13.4 g/dL (13.0-16.5); Lymphocyte # 2.67 X10^3/ul (4.0); Lymphocyte % 27.9 % (19-41); Mean Corp Hgb Conc 32.5 g/dL (32-36); Mean Corpuscular Hgb 25.3 pg (27.0-32.0); Mean Corpuscular Volume 77.7 fL (80-94); Mean Platelet Vol. 9.3 fl (6.2-12.0); Monocyte# 0.89 X10^3/uL; Monocyte% 9.3 % (0-10); NRBC Flagged by Analyzer 0 % (0-5); Neutrophil # 5.82 X10^3/uL (2.7-7.7); Neutrophil % 60.8 % (47-70); POSITIVE MORPHOLOGY YES; Platelet Count 305 K/mm3 (150-450); RBC Distribution Width CV 14.9 % (11.6-14.6); RBC Distribution Width SD 41.2 fl (35.1-43.9); White Blood Count 9.6 K/mm3 (4.4-11.0)
[2019-07-09 19:09] LABS: Anion Gap 8 (5-15); BUN 12 mg/dL (7-18); BUN/Creat Ratio 15.7 RATIO (10-20); Calcium,Total 9.6 mg/dL (8.5-10.1); Chloride 106 mmol/L (98-107); Creatinine, Serum 0.76 mg/dL (0.70-1.30); EST Glomerular Filtration Rate 131 mL/min (>60); Est Glom Filt Rate - Afr Amer 159 mL/min (>60); Estimated Creatinine Clearance 153.42 ml/min; Glucose 84 mg/dL (74-106); Potassium 3.9 mmol/L (3.5-5.1); Sodium Level 139 mmol/L (136-145)
[2019-07-09 19:15] LABS: Differential Indicated SCAN CRITERIA MET
[2019-07-09 20:02] VITALS: RESP 14
[2019-07-09 20:02] LABS: Alcohol, Blood (Medical)-Serum < 3.0 mg/dL
[2019-07-09 20:12] LABS: Platelet Estimate ADEQUATE (ADEQ); Reactive Lymphocyte 1+; Red Cell Morphology NORM C+C NORMAL (NORM C&C)
--- NOTE | 2019-07-09 20:15 | ED.VIS.PSYCH ---
History of Present Illness Chief Complaint: Suicidal Informant: Patient Onset: Today Context: Gradual Onset Timing: Intermittent Associated Symptoms: Suicidal Thoughts, Visual Hallucinations Specific plan (suicidal thought): Cutting himself open Narrative: Patient is a 23-year-old male with extensive psychiatric history including schizoaffective disorder and bipolar disorder presenting with suicidal ideations. Patient called crisis but was unwilling to contract for safety so they sent him to the emergency room for medical clearance and placement. Patient states today he started feeling suicidal. He states he wants to cut himself open. He denies any actual history of suicide attempts but last felt suicidal a month ago and was placed at [facility]. He has had multiple psychiatric admissions. He states he has been compliant for the most part with his medications. He notes that he has had a new visual hallucination lately. He sees a boy called Brenda. He notes he is never seen this particular person before. Patient denies any medication ingestions intentionally or any other suicide attempts. He denies any homicidal ideations. He denies any other complaints at this time. Past Medical History - Allergies and Home Meds Allergies/Adverse Reactions: Allergies carbamazepine [From Tegretol] Allergy (Verified 07/09/19 17:34) Unknown divalproex sodium [From Depakote] Allergy (Verified 07/09/19 17:34) Other methylphenidate [From Concerta] Allergy (Verified 07/09/19 17:34) Unknown methylphenidate HCl [From Ritalin] Allergy (Verified 07/09/19 17:34) Unknown phenobarbital Allergy (Verified 07/09/19 17:34) [facility] Primary Care Physician: Turner Quick MD [Primary Care Provider] - Past Medical History: - - Depression, anxiety, bipolar disorder, schizoaffective disorder Surgical History: noncontributory, - - Hernia repair Smoking Status: Never smoker - Family History Maternal Family History: Family History (Last Updated 05/29/17 @ 13:30 by Itzel Pablo) Other Asthma Diabetes Hypertension Kidney disease Family History: Reports: No pertinent history Review of Systems General: Denies: Chills, Fever, Sweats Eyes: Denies: Visual changes - bilaterally, Diplopia ENT: Denies: Rhinorrhea, Sore throat Cardiovascular: Denies: Chest pain, Palpitations Respiratory: Denies: Dyspnea, Cough, Dyspnea on exertion Gastrointestinal: Denies: Abdominal pain, Nausea, Vomiting, Diarrhea, Melena, Hematochezia Genitourinary: Denies: Dysuria, Hematuria, Frequency Musculoskeletal: Denies: Back pain, Extremity Pain Skin: Denies: Rash, Wounds Neurological: Denies: Headache, Weakness, Numbness Psych: Reports: Depression, Suicidal thoughts, Suicidal ideations Physical Exam Vital Signs/Narrative: Vital Signs Temp Pulse Resp BP Pulse Ox 07/09/19 20:02 14 07/09/19 17:29 97.8 F 98 20 H 153/97 H 96 Inital Vital Signs reviewed: Yes General: Well nourished, Well developed, Obese Head: Normocephalic, Atraumatic Eyes: Perrl, EOMI ENT: Moist mucous membranes, No rhinorrhea Neck: Supple, Nontender Cardiovascular: Regular rate, Regular rhythm, No murmurs Respiratory: No distress, CTA bilaterally, Chest nontender Abdomen: Soft, Nontender, Nondistended, Normal bowel sounds Back: Nontender, Normal Inspection Extremities: Nontender, No Edema Skin: Normal color, No rash Neurological: Alert, Oriented x3, Cranial nerves II-XII grossly intact, Normal Strength, Normal Sensation Psych: Normal Speech Pattern, Normal Appearance, Suicidal thoughts, Hallucinations, Limited Judgement. Negative for: Homicidal thoughts, Paranoid Ideation Diagnostic/Tx/Re-eval Laboratory Data 07/09/19 07/09/19 07/09/19 18:20 18:38 18:38 WBC 9.6 RBC 5.30 Hgb 13.4 Hct 41.2 MCV 77.7 L MCH 25.3 L MCHC 32.5 RDW Std Deviation 41.2 RDW Coeff of Nano 14.9 H Plt Count 305 MPV 9.3 Immature Gran % (Auto) 0.400 Neut % (Auto) 60.8 Lymph % (Auto) 27.9 [place] % (Auto) 9.3 Eos % (Auto) 1.5 Baso % (Auto) 0.1 Absolute Neuts (auto) 5.8 Absolute Lymphs (auto) 2.67 Nucleated RBC % 0 Reactive Lymphocytes 1+ Platelet Estimate ADEQUATE RBC Morphology NORM C+C Sodium 139 Potassium 3.9 Chloride 106 Carbon Dioxide 25.0 Anion Gap 8 BUN 12 Creatinine 0.76 Estim Creat Clear Calc 153.42 Est GFR (MDRD) Af Amer 159 Est GFR (MDRD) Non-Af 131 BUN/Creatinine Ratio 15.7 Glucose 84 Calcium 9.6 Urine Opiates Screen NEGATIVE Urine Methadone Screen NEGATIVE Ur Barbiturates Screen NEGATIVE Ur Phencyclidine Scrn NEGATIVE Ur Amphetamines Screen NEGATIVE U Methamphetamin-MDMA NEGATIVE U Benzodiazepines Scrn NEGATIVE Urine Cocaine Screen NEGATIVE U Cannabinoids Screen NEGATIVE Ur Drug Screen Comment Ethyl Alcohol 07/09/19 18:38 WBC RBC Hgb Hct MCV MCH MCHC RDW Std Deviation RDW Coeff of Nano Plt Count MPV Immature Gran % (Auto) Neut % (Auto) Lymph % (Auto) [place]cd[place] % (Auto) Eos % (Auto) Baso % (Auto) Absolute Neuts (auto) Absolute Lymphs (auto) Nucleated RBC % Reactive Lymphocytes Platelet Estimate RBC Morphology Sodium Potassium Chloride Carbon Dioxide Anion Gap BUN Creatinine Estim Creat Clear Calc Est GFR (MDRD) Af Amer Est GFR (MDRD) Non-Af BUN/Creatinine Ratio Glucose Calcium Urine Opiates Screen Urine Methadone Screen Ur Barbiturates Screen Ur Phencyclidine Scrn Ur Amphetamines Screen U Methamphetamin-MDMA U Benzodiazepines Scrn Urine Cocaine Screen U Cannabinoids Screen Ur Drug Screen Comment Ethyl Alcohol < 3.0 Patient is evaluated for suicidal ideations. He is medically cleared. Slip is filed. Patient will be admitted to a psychiatric facility for further treatment and evaluation. ED Disposition - Plan for ED Patient: Disposition: Acute Care Hospital - Other Diagnosis: Suicidal ideations Referrals: Turner Quick MD [Primary Care Provider] -
--- NOTE | 2019-07-09 20:23 | CM.ED ---
SOCIAL WORK CLINICAL INFORMATION FAXED TO CRIS[facility] TO FACILITATE PLACEMENT. Gwendolyn BRUCE, FARM BUTCHER, WATCH TECHNICIAN.
[2019-07-09 21:14] VITALS: RESP 14
[2019-07-09 22:09] VITALS: RESP 14
--- NOTE | 2019-07-09 23:11 | ED.RN ---
CALLED BY CRISIS (SHAHNAZ), AT [phone], THIS PT IS REFERRED TO [facility] FOR [facility]ACEMENT
--- NOTE | 2019-07-09 23:32 | ED.RN ---
pink slipped faxed to [facility] at this time
[2019-07-09 23:34] VITALS: RESP 16
[2019-07-10 00:09] VITALS: RESP 14
--- NOTE | 2019-07-10 00:31 | ED.RN ---
PINK SLIP FAXED TO [facility] AGAIN, FAX REPORT CONFIRMED
[2019-07-10 00:57] VITALS: BP 132/72; PULSE 78; RESP 16; O2SAT 99
[2019-07-10 01:04] VITALS: RESP 14
--- NOTE | 2019-07-10 01:04 | ED.RN ---
[facility] 75 mins
--- NOTE | 2019-07-10 01:05 | ED.RN ---
REPORT GIVEN TO [facility], AWAITING TRANSPORT
[2019-07-10 01:30] VITALS: BP 140/80; PULSE 80; RESP 16; O2SAT 98
[2019-07-10 02:13] VITALS: RESP 12
== END 2019-07-10 02:35 ==
PROVIDERS: Emergency Provider Emergency Medicine; PCP Family Medicine
DX: R45.851 Suicidal ideations (principal); F25.9 Schizoaffective disorder, unspecified; F31.9 Bipolar disorder, unspecified; F41.9 Anxiety disorder, unspecified; Z82.49 Family history of ischemic heart disease and other diseases of the circulatory system
CPT/HCPCS: 80048; 80307; 80320; 85025; 99284; G0480

== ENCOUNTER 2019-10-01 13:37 | Emergency (ER) | payer MEDICARE, MEDICAID, SELFPAY ==
[2019-10-01 13:39] VITALS: BP 159/87; PULSE 103; RESP 17; TEMP 36.5; O2SAT 95; BMI 46.6
--- NOTE | 2019-10-01 13:56 | ED.DCSUM_ITS ---
History of Present Illness Chief Complaint: Suicidal Informant: Patient, Family Onset: Days Narrative: Patient presents secondary to suicidal ideation. Patient states that he is upset because he lost his stepfather to be in May. His plan is to cut his abdomen open with a knife. Patient denies any recent medication changes. He denies any symptoms of Covid. 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 Past Medical History - Allergies and Home Meds Allergies/Adverse Reactions: Allergies carbamazepine [From Tegretol] Allergy (Verified 10/01/19 13:38) Unknown divalproex sodium [From Depakote] Allergy (Verified 10/01/19 13:38) Other methylphenidate [From Concerta] Allergy (Verified 10/01/19 13:38) Unknown methylphenidate HCl [From Ritalin] Allergy (Verified 10/01/19 13:38) Unknown phenobarbital Allergy (Verified 10/01/19 13:38) Hives Primary Care Physician: Turner Quick MD [Primary Care Provider] - Prior records reviewed: Yes Surgical History: noncontributory, - - Hernia repair Lives: With Family Smoking Status: Never smoker - Family History Maternal Family History: Family History (Last Updated 05/29/17 @ 13:30 by Itzel Pablo) Other Asthma Diabetes Hypertension Kidney disease Family History: Reports: No pertinent history Review of Systems General: Denies: Chills, Fever Eyes: Denies: Visual changes - bilaterally ENT: Denies: Bilateral ear pain Cardiovascular: Denies: Chest pain Respiratory: Denies: Dyspnea Gastrointestinal: Denies: Abdominal pain, Nausea, Vomiting, Diarrhea Musculoskeletal: Denies: Swelling, Extremity Pain Skin: Denies: Rash Neurological: Denies: Headache Psych: Reports: Suicidal thoughts Hematologic: Denies: Easy bruising, Easy bleeding Allergy: Denies: Uticaria Physical Exam Vital Signs/Narrative: Vital Signs Temp Pulse Resp BP Pulse Ox 10/01/19 13:39 97.7 F L 103 H 17 159/87 H 95 Inital Vital Signs reviewed: Yes General: Well nourished, Well developed Head: Normocephalic ENT: Moist mucous membranes Neck: Supple Cardiovascular: Regular rate, Regular rhythm Respiratory: No distress, CTA bilaterally Abdomen: Soft, Nontender Back: Nontender Extremities: Nontender Skin: Normal color, No rash Neurological: Alert, Oriented x3, Normal Strength, Normal Sensation Psychological: Normal affect Diagnostic/Tx/Re-eval Laboratory Results 10/01/19 10/01/19 10/01/19 14:07 14:15 14:15 WBC 6.9 RBC 4.95 Hgb 12.7 L Hct 39.5 L MCV 79.8 L MCH 25.7 L MCHC 32.2 RDW Std Deviation 42.7 RDW Coeff of Nano 15.0 H Plt Count 329 MPV 8.9 Immature Gran % (Auto) 0.400 Neut % (Auto) 59.3 Lymph % (Auto) 31.0 [place] % (Auto) 9.2 Eos % (Auto) 0.0 Baso % (Auto) 0.1 Absolute Neuts (auto) 4.1 Absolute Lymphs (auto) 2.13 Nucleated RBC % 0 Sodium 140 Potassium 3.6 Chloride 108 H Carbon Dioxide 28.0 Anion Gap 4 L BUN 8 Creatinine 0.83 Estim Creat Clear Calc 139.26 Est GFR (MDRD) Af Amer 144 Est GFR (MDRD) Non-Af 119 BUN/Creatinine Ratio 9.6 L Glucose 134 H Calcium 8.6 Urine Opiates Screen NEGATIVE Urine Methadone Screen NEGATIVE Ur Barbiturates Screen NEGATIVE Ur Phencyclidine Scrn NEGATIVE Ur Amphetamines Screen NEGATIVE U Methamphetamin-MDMA NEGATIVE U Benzodiazepines Scrn NEGATIVE Urine Cocaine Screen NEGATIVE U Cannabinoids Screen NEGATIVE Ur Drug Screen Comment Ethyl Alcohol 10/01/19 14:15 WBC RBC Hgb Hct MCV MCH MCHC RDW Std Deviation RDW Coeff of Nano Plt Count MPV Immature Gran % (Auto) Neut % (Auto) Lymph % (Auto) [place] % (Auto) Eos % (Auto) Baso % (Auto) Absolute Neuts (auto) Absolute Lymphs (auto) Nucleated RBC % Sodium Potassium Chloride Carbon Dioxide Anion Gap BUN Creatinine Estim Creat Clear Calc Est GFR (MDRD) Af Amer Est GFR (MDRD) Non-Af BUN/Creatinine Ratio Glucose Calcium Urine Opiates Screen Urine Methadone Screen Ur Barbiturates Screen Ur Phencyclidine Scrn Ur Amphetamines Screen U Methamphetamin-MDMA U Benzodiazepines Scrn Urine Cocaine Screen U Cannabinoids Screen Ur Drug Screen Comment Ethyl Alcohol < 3.0 - Medical Decision Making Patient has had a sitter at bedside. He was seen by social work and arrangements are being made for placement. ED Disposition - Plan for ED Patient: Disposition: Psychiatric Hospital or Unit Diagnosis: Suicidal ideation Referrals: Turner Quick MD [Primary Care Provider] -
[2019-10-01 14:24] LABS: Absolute Lymphocyte Count 2.13 X10^3/uL (0.83-4.51); Absolute Neutrophil Count 4.1 X10^3/uL (2.0-7.7); Basophil# 0.01 X10^3/uL; Basophil% 0.1 % (0-1); Hematocrit 39.5 % (40-54); Hemoglobin 12.7 g/dL (13.0-16.5); Lymphocyte # 2.13 X10^3/ul (4.0); Mean Corp Hgb Conc 32.2 g/dL (32-36); Mean Corpuscular Hgb 25.7 pg (27.0-32.0); Mean Corpuscular Volume 79.8 fL (80-94); Mean Platelet Vol. 8.9 fl (6.2-12.0); Monocyte# 0.63 X10^3/uL; Monocyte% 9.2 % (0-10); NRBC Flagged by Analyzer 0 % (0-5); Neutrophil # 4.08 X10^3/uL (2.7-7.7); Neutrophil % 59.3 % (47-70); Platelet Count 329 K/mm3 (150-450); RBC Distribution Width SD 42.7 fl (35.1-43.9); Red Blood Count 4.95 M/mm3 (4.6-6.2); White Blood Count 6.9 K/mm3 (4.4-11.0)
[2019-10-01 14:34] LABS: Anion Gap 4 (5-15); BUN 8 mg/dL (7-18); BUN/Creat Ratio 9.6 RATIO (10-20); Calcium,Total 8.6 mg/dL (8.5-10.1); Chloride 108 mmol/L (98-107); Creatinine, Serum 0.83 mg/dL (0.70-1.30); EST Glomerular Filtration Rate 119 mL/min (>60); Est Glom Filt Rate - Afr Amer 144 mL/min (>60); Estimated Creatinine Clearance 139.26 ml/min; Glucose 134 mg/dL (74-106); Potassium 3.6 mmol/L (3.5-5.1); Sodium Level 140 mmol/L (136-145)
[2019-10-01 14:36] LABS: Amphetamine Urine VISTA NEGATIVE (<1000 ng/mL); Barbiturate Urine VISTA NEGATIVE (< 200 ng/mL); Benzodiazepine Urine VISTA NEGATIVE (< 200 ng/mL); Cocaine Urine VISTA NEGATIVE (< 300 ng/mL); Ecstacy Urine VISTA NEGATIVE (< 500 ng/mL); Methadone Urine VISTA NEGATIVE (< 300 ng/mL); PCP Urine VISTA NEGATIVE (< 25 ng/mL); THC Urine VISTA NEGATIVE (< 50 ng/mL); Vista UDS pH Range 6
[2019-10-01 14:44] LABS: Alcohol, Blood (Medical)-Serum < 3.0 mg/dL
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
--- NOTE | 2019-10-01 16:25 | CM.ED ---
SOCIAL WORK Received call from Ranjith with [facility] who reports able to accept patient once they speak with patient's mother/guardian. Ranjith to contact patient's mother and get back to this worker with accepting information. Gwendolyn Griffin, FILTER PLANT SUPERVISOR, FACILITIES PAINTER
--- NOTE | 2019-10-01 18:03 | CM.ED ---
SOCIAL WORK Call from [place] with [facility]. Patient accepted by Dr. Baldwin to the [facility]. Report to be called to . Staff updated. Claims Account Manager to set up transport. Patient updated. Plan: [facility], LEASE EXAMINER, JUNIOR BOOKKEEPER
[2019-10-01 18:52] VITALS: BP 148/79; PULSE 89; RESP 17; TEMP 36.6; O2SAT 97
[2019-10-01 19:00] VITALS: RESP 16
[2019-10-01 20:00] VITALS: BP 148/93; PULSE 84; RESP 16; O2SAT 96
[2019-10-01 21:00] VITALS: RESP 14
[2019-10-01 22:00] VITALS: RESP 14
[2019-10-05 04:22] LABS: Lamotrigine (Lamictal) Level 2.8 ug/mL (2.0-20.0)
== END 2019-10-01 22:35 ==
PROVIDERS: Emergency Provider Emergency Medicine; PCP Family Medicine
DX: R45.851 Suicidal ideations (principal); F70 Mild intellectual disabilities; F84.5 Asperger's syndrome; F90.9 Attention-deficit hyperactivity disorder, unspecified type; J45.909 Unspecified asthma, uncomplicated; Z82.49 Family history of ischemic heart disease and other diseases of the circulatory system; Q04.0 Congenital malformations of corpus callosum; G40.802 Other epilepsy, not intractable, without status epilepticus
CPT/HCPCS: 80048; 80307; 80320; 82542; 85025; 99285; G0480

== ENCOUNTER → 2019-12-10 17:58 | Outpatient (CLI) | payer MEDICARE, MEDICAID, SELFPAY | PROVIDERS: PCP Family Medicine; Referring Provider Nurse Practitioner Family; Visit Provider Nurse Practitioner Family | DX: Z20.828 Contact with and (suspected) exposure to other viral communicable diseases (principal) | CPT/HCPCS: 87635; C9803; U0003 ==

== ENCOUNTER 2020-02-09 18:01 | Emergency (ER) | payer MEDICARE, MEDICAID, SELFPAY ==
[2020-02-09 18:01] VITALS: BP 138/86; PULSE 107; RESP 19; TEMP 37.2; BMI 47.4
--- NOTE | 2020-02-09 18:02 | ED.DCSUM_ITS ---
History of Present Illness Chief Complaint: Chest Pain Informant: Patient Narrative: 24-year-old male with history of asthma presenting with shortness of breath and chest pain which started about an hour prior to arrival. He states he does not feel like he is wheezing and did not try any breathing treatments. He describes the chest pain as pressure. He has no cardiac history. No history of DVT/PE. He states he is not coughing and does not have fever or chills. He has no body aches or loss of taste and smell. Patient feels like he is too short of breath to ambulate. Patient also relates a history of anxiety but is not feel anxious. His only known sick contacts are people that had Covid?19 in his apartment building. He states he has not been any close contact with them. - Past Medical History (1) ADHD (attention deficit hyperactivity disorder) Status: Chronic (2) Aspergers' syndrome Status: Chronic (3) Asthma Status: Chronic (4) Psychiatric pseudoseizure Status: Chronic Past Medical History - Allergies and Home Meds Allergies/Adverse Reactions: Allergies carbamazepine [From Tegretol] Allergy (Verified 02/09/20 19:33) Unknown divalproex sodium [From Depakote] Allergy (Verified 02/09/20 19:33) Other methylphenidate [From Concerta] Allergy (Verified 02/09/20 19:33) Unknown methylphenidate HCl [From Ritalin] Allergy (Verified 02/09/20 19:33) Unknown phenobarbital Allergy (Verified 02/09/20 19:33) Hives Primary Care Physician: Turner Quick MD [Primary Care Provider] - Prior records reviewed: Yes Past Medical History: - - Reviewed in problem list Surgical History: noncontributory, - - Hernia repair Lives: With Family Smoking Status: Never smoker Alcohol: None Drugs: None - Family History Maternal Family History: Family History (Last Updated 05/29/17 @ 13:30 by Itzel Pablo) Other Asthma Diabetes Hypertension Kidney disease Family History: Reports: No pertinent history Review of Systems General: Denies: Chills, Fever, Malaise Eyes: Denies: Visual changes - bilaterally, Diplopia ENT: Denies: Rhinorrhea, Sore throat Cardiovascular: Reports: Chest pain, Heart racing Respiratory: Reports: Dyspnea. Denies: Cough, Sputum Gastrointestinal: Denies: Abdominal pain, Nausea, Vomiting Genitourinary: Denies: Dysuria, Hematuria Musculoskeletal: Denies: Myalgias, Arthralgias Skin: Denies: Rash, Wounds Neurological: Denies: Headache, Weakness, Numbness Physical Exam Inital Vital Signs reviewed: Yes General: Obese, No Acute Distress Head: Normocephalic, Atraumatic Eyes: Perrl, EOMI ENT: Moist mucous membranes, No rhinorrhea Cardiovascular: Regular rate, Regular rhythm Respiratory: No distress, CTA bilaterally Abdomen: Soft, Nontender Back: Nontender, Normal Inspection Extremities: Nontender, No edema Skin: Normal color, No rash, Cyanosis. Negative for: Diaphoresis Neurological: Alert, Oriented x3 Psychological: Normal affect, Normal Mood Diagnostic/Tx/Re-eval Clinical Impression(s) from Imaging Studies Chest X-Ray 02/09/20 19:15 IMPRESSION: No airspace consolidation or pleural effusion. Hypoinflation with bibasilar atelectasis. Electronically Signed: Anshu Pittman MD (Brooks) at 19:27 EST , Service support , Laboratory Data 02/09/20 02/09/20 02/09/20 18:30 18:30 18:55 WBC RBC Hgb Hct MCV MCH MCHC RDW Std Deviation RDW Coeff of Nano Plt Count MPV Immature Gran % (Auto) Neut % (Auto) Lymph % (Auto) [place] % (Auto) Eos % (Auto) Baso % (Auto) Absolute Neuts (auto) Absolute Lymphs (auto) Nucleated RBC % D-Dimer Quant (PE/DVT) <= 0.27 Sodium Potassium Chloride Carbon Dioxide Anion Gap BUN Creatinine Estim Creat Clear Calc Est GFR (MDRD) Af Amer Est GFR (MDRD) Non-Af BUN/Creatinine Ratio Glucose Calcium Total Bilirubin AST ALT Alkaline Phosphatase Troponin I Total Protein Albumin Globulin Albumin/Globulin Ratio COVID-19 (RELL) Cancelled Negative 02/09/20 02/09/20 18:55 18:55 WBC 7.6 RBC 4.85 Hgb 12.5 L Hct 38.7 L MCV 79.8 L MCH 25.8 L MCHC 32.3 RDW Std Deviation 43.5 RDW Coeff of Nano 14.9 H Plt Count 344 MPV 9.1 Immature Gran % (Auto) 0.300 Neut % (Auto) 59.3 Lymph % (Auto) 31.4 [place] % (Auto) 8.9 Eos % (Auto) 0.0 Baso % (Auto) 0.1 Absolute Neuts (auto) 4.5 Absolute Lymphs (auto) 2.38 Nucleated RBC % 0 D-Dimer Quant (PE/DVT) Sodium 140 Potassium 3.9 Chloride 108 H Carbon Dioxide 26.0 Anion Gap 6 BUN 9 Creatinine 0.69 L Estim Creat Clear Calc 167.51 Est GFR (MDRD) Af Amer 177 Est GFR (MDRD) Non-Af 146 BUN/Creatinine Ratio 13.0 Glucose 98 Calcium 8.6 Total Bilirubin 0.20 AST 12 L ALT 33 Alkaline Phosphatase 109 Troponin I < 0.015 Total Protein 7.0 Albumin 3.6 Globulin 3.4 Albumin/Globulin Ratio 1.1 COVID-19 (RELL) - Rhythm Strip Rhythm Strip: Sinus Rhythm Rate: 104 - EKG Initial EKG Interpretation: No Acute Injury Pattern, Sinus Tachycardia - Medical Decision Making 24-year-old male presenting with chest pain for about an hour prior to arrival. He has no cardiac history. EKG is sinus rhythm at 104 bpm as interpreted by myself. Chest x-ray interpreted by myself and the radiologist is negative for acute process. Patient's lab work is unremarkable. D-dimer is negative. Troponins negative. Patient's heart score would be a 1 for obesity however I do not believe he has cardiac chest pain and I do not believe he needs a delta troponin and EKG. Patient was tested for Covid?19 and was negative. Patient counseled that if he continues to have symptoms she should be tested again on day 4 or 5. He is given instructions on how to do so he does not want to come back to the emergency room. He is given return precautions. Patient stable for discharge. Impression: 1. Chest pain ED Disposition - Plan for ED Patient: Disposition: Home or Assisted Living Instructions: ED Chest Pain, Noncardiac Referrals: Turner Quick MD [Primary Care Provider] -
--- NOTE | 2020-02-09 18:17 | EKG12_ITS ---
Test Reason : CP Blood Pressure : / mmHG Vent. Rate : 104 BPM Atrial Rate : 104 BPM P-R Int : 152 ms QRS Dur : 094 ms QT Int : 314 ms P-R-T Axes : 017 -09 023 degrees QTc Int : 412 ms Sinus tachycardia Otherwise normal ECG Confirmed by CELESTINE LAI, MELY ([id number]), news videotape editor SARAY PATEL ([id number]) on 02/18/2020 8:43:18 AM Referred By: SHAD Confirmed By:TACOS SPRAGUE MD
[2020-02-09 19:00] VITALS: PULSE 94; RESP 20; O2SAT 94
[2020-02-09 19:13] LABS: Absolute Lymphocyte Count 2.38 X10^3/uL (0.83-4.51); Absolute Neutrophil Count 4.5 X10^3/uL (2.0-7.7); Basophil# 0.01 X10^3/uL; Basophil% 0.1 % (0-1); Hematocrit 38.7 % (40-54); Hemoglobin 12.5 g/dL (13.0-16.5); Lymphocyte # 2.38 X10^3/ul (4.0); Lymphocyte % 31.4 % (19-41); Mean Corp Hgb Conc 32.3 g/dL (32-36); Mean Corpuscular Hgb 25.8 pg (27.0-32.0); Mean Corpuscular Volume 79.8 fL (80-94); Mean Platelet Vol. 9.1 fl (6.2-12.0); Monocyte# 0.67 X10^3/uL; Monocyte% 8.9 % (0-10); NRBC Flagged by Analyzer 0 % (0-5); Neutrophil # 4.49 X10^3/uL (2.7-7.7); Neutrophil % 59.3 % (47-70); Platelet Count 344 K/mm3 (150-450); RBC Distribution Width CV 14.9 % (11.6-14.6); RBC Distribution Width SD 43.5 fl (35.1-43.9); Red Blood Count 4.85 M/mm3 (4.6-6.2); White Blood Count 7.6 K/mm3 (4.4-11.0)
--- NOTE | 2020-02-09 19:15 | RAD_ITS ---
STUDY: X-RAY CHEST REASON FOR EXAM: Male, 24 years old. 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 TECHNIQUE: AP COMPARISON: 03/21/2017 FINDINGS: Lungs are underexpanded with persistent elevation the right hemidiaphragm. Mild atelectasis in the lung bases. There is no demonstrated pleural abnormality. Normal size heart. Normal mediastinum and kirby. Normal visualized pulmonary arteries. Normal visualized aortic arch and descending thoracic aorta. Normal visualized thoracic spine. Normal visualized ribs, clavicles, and shoulders. There is no demonstrated abnormality of the visualized soft tissue structures of the upper abdomen. RAD/Chest 1 View (Portable) IMPRESSION: No airspace consolidation or pleural effusion. Hypoinflation with bibasilar atelectasis. Electronically Signed: Anshu Pittman MD (Brooks) at 19:27 EST , Service support ,
[2020-02-09 19:26] LABS: D-Dimer Quantitative (DVT/PE) <= 0.27 FEU/ug/m (0.27-0.49)
[2020-02-09 19:29] LABS: Probe Check PASS; Specimen Processing Control PASS
[2020-02-09 19:32] LABS: ALB/GLOB Ratio 1.1 RATIO (0.9-2.4); AST(SGOT) 12 U/L (15-37); Alanine Aminotransfer ALT/SGPT 33 U/L (16-61); Albumin, Serum 3.6 g/dL (3.2-5.0); Alkaline Phosphatase 109 U/L (45-117); Anion Gap 6 (5-15); BUN 9 mg/dL (7-18); Calcium,Total 8.6 mg/dL (8.5-10.1); Chloride 108 mmol/L (98-107); Creatinine, Serum 0.69 mg/dL (0.70-1.30); EST Glomerular Filtration Rate 146 mL/min (>60); Est Glom Filt Rate - Afr Amer 177 mL/min (>60); Estimated Creatinine Clearance 167.51 ml/min; Globulin 3.4 g/dL (2.2-4.2); Glucose 98 mg/dL (74-106); Potassium 3.9 mmol/L (3.5-5.1); Sodium Level 140 mmol/L (136-145)
[2020-02-09 20:04] VITALS: BP 121/87; PULSE 97; RESP 18; O2SAT 94
== END 2020-02-09 20:05 | disposition home or self-care (01) ==
PROVIDERS: Emergency Provider Student in an Organized Health Care Education/Training Program; PCP Family Medicine
DX: R07.9 Chest pain, unspecified (principal); F84.5 Asperger's syndrome; J45.909 Unspecified asthma, uncomplicated; F90.9 Attention-deficit hyperactivity disorder, unspecified type; Z82.49 Family history of ischemic heart disease and other diseases of the circulatory system
CPT/HCPCS: 71045; 80053; 84484; 85025; 85379; 87635; 93005; 99285; J7030; A4216; U0002

== ENCOUNTER 2020-03-26 15:55 | Emergency (ER) | payer MEDICARE, MEDICAID, SELFPAY ==
[2020-03-26] VITALS (7 sets, daily range): BP systolic 122–124; BP diastolic 74–75; PULSE 90–105; RESP 16–20; TEMP 37.1; O2SAT 93–96; BMI 45.0
--- NOTE | 2020-03-26 16:56 | EKG12_ITS ---
Test Reason : ILLNESS Blood Pressure : / mmHG Vent. Rate : 088 BPM Atrial Rate : 088 BPM P-R Int : 152 ms QRS Dur : 088 ms QT Int : 342 ms P-R-T Axes : 026 000 019 degrees QTc Int : 413 ms Normal sinus rhythm Normal ECG Confirmed by CELESTINE LAI, MELY ([id number]), video news editor JAZIEL PARKER ([id number]) on 03/31/2020 11:11:02 AM Referred By: EDIN Confirmed By:TACOS SPRAGUE MD
--- NOTE | 2020-03-26 17:22 | ED.DCSUM_ITS ---
History of Present Illness Chief Complaint: Cough Informant: Patient Onset: Days Context: Gradual Onset Narrative: Patient is a 24-year-old male presenting with throat, cough and suicidal ideations. Patient states he has had a sore throat for the past 2 weeks and a cough in the past week. Is nonproductive in nature. He is concerned he might have Covid. He does feel mildly short of breath. He denies any fever or chills. He denies any sick contacts. He denies any GI symptoms or leg swelling. In addition patient states he has had suicidal thoughts today. He states he feels that he would hang himself with anything he could find. He is not sure if he would act on this thought though. Patient does have an extensive psychiatric history. He lives with his mother and states he has been compliant with his medications. He states his mother is not been sick. He denies any other complaints at this time. Past Medical History - Allergies and Home Meds Allergies/Adverse Reactions: Allergies carbamazepine [From Tegretol] Allergy (Verified 02/09/20 19:33) Unknown divalproex sodium [From Depakote] Allergy (Verified 02/09/20 19:33) Other methylphenidate [From Concerta] Allergy (Verified 02/09/20 19:33) Unknown methylphenidate HCl [From Ritalin] Allergy (Verified 02/09/20 19:33) Unknown phenobarbital Allergy (Verified 02/09/20 19:33) Hives Primary Care Physician: Turner Quick MD [Primary Care Provider] - Past Medical History: - - Asthma, seizure disorder, bipolar disorder Surgical History: noncontributory, - - Hernia repair Smoking Status: Never smoker - Family History Maternal Family History: Family History (Last Updated 05/29/17 @ 13:30 by Itzel Pablo) Other Asthma Diabetes Hypertension Kidney disease Family History: Reports: No pertinent history Review of Systems General: Reports: Malaise. Denies: Chills, Fever, Sweats Eyes: Denies: Visual changes - bilaterally, Diplopia ENT: Reports: Sore throat. Denies: Rhinorrhea Cardiovascular: Denies: Chest pain, Palpitations Respiratory: Reports: Cough. Denies: Dyspnea, Dyspnea on exertion Gastrointestinal: Denies: Abdominal pain, Nausea, Vomiting, Diarrhea, Melena, Hematochezia Genitourinary: Denies: Dysuria, Hematuria, Frequency Musculoskeletal: Denies: Back pain, Extremity Pain Skin: Denies: Rash, Wounds Neurological: Denies: Headache, Weakness, Numbness Psych: Reports: Suicidal thoughts, Suicidal ideations Physical Exam Vital Signs/Narrative: Vital Signs Temp Pulse Resp BP Pulse Ox 03/26/20 16:00 98 19 H 124/74 H 96 03/26/20 15:56 98.8 F 93 19 H 124/74 H 96 Inital Vital Signs reviewed: Yes General: Well nourished, Well developed, Obese, No Acute Distress Head: Normocephalic, Atraumatic Eyes: Perrl, EOMI ENT: Moist mucous membranes, No rhinorrhea, TM's clear. Negative for: Nasal congestion, Sinus tenderness Neck: Supple, Nontender, No lymphadenopathy Cardiovascular: Regular rate, Regular rhythm, No murmurs Respiratory: No distress, CTA bilaterally, Chest nontender Abdomen: Soft, Nontender, Nondistended, Normal bowel sounds Back: Nontender, Normal Inspection Extremities: Nontender, No edema Skin: Normal color, No rash Neurological: Alert, Oriented x3, Cranial nerves II-XII grossly intact, Normal Strength, Normal Sensation Psychological: Normal affect, Depressed, - - Illicit suicidal ideation stating he is thinking about hanging himself tomorrow Diagnostic/Tx/Re-eval Chest X-Ray - ED: 1 View, Read by ED Physician, Read by Radiologist, No Acute Disease Clinical Impression(s) from Imaging Studies Chest X-Ray 03/26/20 17:25 IMPRESSION: Normal x-ray examination of the chest. Electronically Signed: Jatin Blankenship MD at 17:36 EST , Service support , Laboratory Data 03/26/20 03/26/20 03/26/20 18:01 18:01 18:01 WBC 7.9 RBC 5.01 Hgb 12.3 L Hct 39.6 L MCV 79.0 L MCH 24.6 L MCHC 31.1 L RDW Std Deviation 43.1 RDW Coeff of Nano 15.0 H Plt Count 318 MPV 8.9 Immature Gran % (Auto) 0.300 Neut % (Auto) 62.2 Lymph % (Auto) 29.4 [place] % (Auto) 8.0 Eos % (Auto) 0.0 Baso % (Auto) 0.1 Absolute Neuts (auto) 4.9 Absolute Lymphs (auto) 2.31 Nucleated RBC % 0 Sodium 138 Potassium 3.8 Chloride 106 Carbon Dioxide 25.0 Anion Gap 7 BUN 8 Creatinine 0.77 Estim Creat Clear Calc 159.57 Est GFR (MDRD) Af Amer 156 Est GFR (MDRD) Non-Af 129 BUN/Creatinine Ratio 10.4 Glucose 94 Calcium 8.5 Total Bilirubin 0.30 AST 16 ALT 31 Alkaline Phosphatase 106 Total Protein 7.2 Albumin 3.5 Globulin 3.7 Albumin/Globulin Ratio 0.9 Urine Color Urine Clarity Urine pH Ur Specific [place] Urine Protein Urine Glucose (UA) Urine Ketones Urine Occult Blood Urine Nitrite Urine Bilirubin Urine Urobilinogen Ur Leukocyte Esterase Urine RBC Urine WBC Ur Squamous Epith Cells Ur Renal Epithelial Cell Urine Bacteria Urine Mucus Urine Opiates Screen Urine Methadone Screen Ur Barbiturates Screen Ur Phencyclidine Scrn Ur Amphetamines Screen U Methamphetamin-MDMA U Benzodiazepines Scrn Urine Cocaine Screen U Cannabinoids Screen Ur Drug Screen Comment Ethyl Alcohol < 3.0 03/26/20 03/26/20 18:33 18:33 WBC RBC Hgb Hct MCV MCH MCHC RDW Std Deviation RDW Coeff of Nano Plt Count MPV Immature Gran % (Auto) Neut % (Auto) Lymph % (Auto) [place] % (Auto) Eos % (Auto) Baso % (Auto) Absolute Neuts (auto) Absolute Lymphs (auto) Nucleated RBC % Sodium Potassium Chloride Carbon Dioxide Anion Gap BUN Creatinine Estim Creat Clear Calc Est GFR (MDRD) Af Amer Est GFR (MDRD) Non-Af BUN/Creatinine Ratio Glucose Calcium Total Bilirubin AST ALT Alkaline Phosphatase Total Protein Albumin Globulin Albumin/Globulin Ratio Urine Color Yellow Urine Clarity Clear Urine pH 6.0 Ur Specific [place] 1.015 Urine Protein Negative Urine Glucose (UA) Normal Urine Ketones Negative Urine Occult Blood Negative Urine Nitrite Negative Urine Bilirubin Negative Urine Urobilinogen Normal Ur Leukocyte Esterase 100 H Urine RBC 0 SEEN Urine WBC 5-10 SEEN Ur Squamous Epith Cells 5-10 SEEN Ur Renal Epithelial Cell 0-5 SEEN Urine Bacteria 0 SEEN Urine Mucus 1+ Urine Opiates Screen NEGATIVE Urine Methadone Screen NEGATIVE Ur Barbiturates Screen NEGATIVE Ur Phencyclidine Scrn NEGATIVE Ur Amphetamines Screen NEGATIVE U Methamphetamin-MDMA NEGATIVE U Benzodiazepines Scrn NEGATIVE Urine Cocaine Screen NEGATIVE U Cannabinoids Screen NEGATIVE Ur Drug Screen Comment Ethyl Alcohol - Rhythm Strip Rhythm Strip: Sinus Rhythm Rate: 88 Ectopy: None - EKG Initial EKG Interpretation: Sinus Rhythm, - - Sinus rhythm at a rate of 88 Normal axis Normal intervals Normal ST segments No change prior to prior EKG on 02/09/2020 - Medical Decision Making Patient initially evaluated for cough and sore throat. He appears nontoxic and in no acute distress. Cervical exam is quite benign however he does have a flat affect. After further discussion with him he goes on to tell me that he is having thoughts of wanting to kill himself by hanging himself. Patient is placed in suicide precautions and medical clearance is obtained. Patient not appear to have strep throat, Covid or any other acute infectious/cardiopulmonary process. Evaluated by crisis and felt to require inpatient psychiatric care at this time. I agree with this. Patient is stable in the emergency room and cooperative. Patient signed out to oncoming provider pending psychiatric placement. ED Disposition - Plan for ED Patient: Disposition: Acute Care Hospital - Other Diagnosis: Suicidal ideations, Depression Referrals: Turner Quick MD [Primary Care Provider] -
--- NOTE | 2020-03-26 17:25 | RAD_ITS ---
STUDY: X-RAY CHEST REASON FOR EXAM: Male, 24 years old. sob, cough, and sore throat for 2-4 days TECHNIQUE: Single frontal view of the chest. COMPARISON: Chest x-ray 02/09/2020 FINDINGS: The lungs are clear and expanded. There is no demonstrated pleural abnormality. Normal size heart. Normal mediastinum and kirby. Normal visualized pulmonary arteries. Normal visualized aortic arch and descending thoracic aorta. Normal visualized thoracic spine. Normal visualized ribs, clavicles, and shoulders. There is no demonstrated abnormality of the visualized soft tissue structures of the upper abdomen. RAD/Chest 1 View (Portable) IMPRESSION: Normal x-ray examination of the chest. Electronically Signed: Jatin Blankenship MD at 17:36 EST , Service support ,
[2020-03-26 18:16] LABS: Absolute Lymphocyte Count 2.31 X10^3/uL (0.83-4.51); Absolute Neutrophil Count 4.9 X10^3/uL (2.0-7.7); Basophil# 0.01 X10^3/uL; Basophil% 0.1 % (0-1); Hematocrit 39.6 % (40-54); Hemoglobin 12.3 g/dL (13.0-16.5); Lymphocyte # 2.31 X10^3/ul (4.0); Lymphocyte % 29.4 % (19-41); Mean Corp Hgb Conc 31.1 g/dL (32-36); Mean Corpuscular Hgb 24.6 pg (27.0-32.0); Mean Platelet Vol. 8.9 fl (6.2-12.0); Monocyte# 0.63 X10^3/uL; NRBC Flagged by Analyzer 0 % (0-5); Neutrophil # 4.89 X10^3/uL (2.7-7.7); Neutrophil % 62.2 % (47-70); Platelet Count 318 K/mm3 (150-450); RBC Distribution Width SD 43.1 fl (35.1-43.9); Red Blood Count 5.01 M/mm3 (4.6-6.2); White Blood Count 7.9 K/mm3 (4.4-11.0)
[2020-03-26 18:33] LABS: ALB/GLOB Ratio 0.9 RATIO (0.9-2.4); AST(SGOT) 16 U/L (15-37); Alanine Aminotransfer ALT/SGPT 31 U/L (16-61); Albumin, Serum 3.5 g/dL (3.2-5.0); Alkaline Phosphatase 106 U/L (45-117); Anion Gap 7 (5-15); BUN 8 mg/dL (7-18); BUN/Creat Ratio 10.4 RATIO (10-20); Calcium,Total 8.5 mg/dL (8.5-10.1); Chloride 106 mmol/L (98-107); Creatinine, Serum 0.77 mg/dL (0.70-1.30); EST Glomerular Filtration Rate 129 mL/min (>60); Est Glom Filt Rate - Afr Amer 156 mL/min (>60); Estimated Creatinine Clearance 159.57 ml/min; Globulin 3.7 g/dL (2.2-4.2); Glucose 94 mg/dL (74-106); Potassium 3.8 mmol/L (3.5-5.1); Protein, Total 7.2 g/dL (6.4-8.2); Sodium Level 138 mmol/L (136-145)
[2020-03-26 18:42] LABS: Alcohol, Blood (Medical)-Serum < 3.0 mg/dL
[2020-03-26 18:44] LABS: Bacteria 0 SEEN /hpf (None Seen); Red Blood Cells-Urine 0 SEEN /hpf (0-5)
[2020-03-26 18:50] LABS: Color, Urine Yellow (Yellow); Glucose, Dipstick Normal (Normal); Ketone-Dipstick Negative (Negative); Leukocyte Esterase-Dipstick 100 /ul (Negative); Nitrite-Dipstick Negative (Negative); Occult Blood-Urine Negative /ul (Negative); Protein-Dipstick Negative (Negative); Specific Gravity, Urine 1.015 (1.002-1.030); Urine Bilirubin Dipstick Negative (Negative); Urine Clarity Clear (Clear); Urine Urobilinogen Normal (Normal)
[2020-03-26 18:55] LABS: White Blood Cells 5-10 SEEN /hpf (0-5)
[2020-03-26 18:56] LABS: Mucous, Urine 1+ /hpf (<or=2+); Renal Epithelial Cells 0-5 SEEN /hpf (0-5); Squamous Epithelial Cells - UA 5-10 SEEN /hpf (0-5)
[2020-03-26 18:59] LABS: Amphetamine Urine VISTA NEGATIVE (<1000 ng/mL); Barbiturate Urine VISTA NEGATIVE (< 200 ng/mL); Benzodiazepine Urine VISTA NEGATIVE (< 200 ng/mL); Cocaine Urine VISTA NEGATIVE (< 300 ng/mL); Ecstacy Urine VISTA NEGATIVE (< 500 ng/mL); Methadone Urine VISTA NEGATIVE (< 300 ng/mL); PCP Urine VISTA NEGATIVE (< 25 ng/mL); THC Urine VISTA NEGATIVE (< 50 ng/mL); Vista UDS pH Range 5
--- NOTE | 2020-03-26 19:06 | ED.RN ---
pt was placed in suicidal precautions per ed dr's order. pt was initial here for cough. personal belonging were collected and placed in belonging bag. belongings were left in room with patient due to isolation related to possible covid-19. belongings out of patients reach. sitter standing in hallway to providing 1:1 observation. izzy wilson rn
[2020-03-27] VITALS: RESP 16
[2020-03-27 01:00] VITALS: BP 100/60; PULSE 93; RESP 19; O2SAT 94
[2020-03-27 02:00] VITALS: RESP 16
[2020-03-27 02:41] VITALS: BP 138/84; PULSE 79; RESP 18; O2SAT 94
== END 2020-03-27 02:45 ==
PROVIDERS: Emergency Provider Emergency Medicine; PCP Family Medicine
DX: R45.851 Suicidal ideations (principal); F32.9 Major depressive disorder, single episode, unspecified; E66.9 Obesity, unspecified; J02.9 Acute pharyngitis, unspecified; R05 Cough; J45.909 Unspecified asthma, uncomplicated; Z82.49 Family history of ischemic heart disease and other diseases of the circulatory system; Z83.3 Family history of diabetes mellitus
CPT/HCPCS: 71045; 80053; 80307; 81001; 82077; 85025; 87426; 87880; 93005; 99285

== ENCOUNTER 2020-04-29 15:13 | Emergency (ER) | payer MEDICARE, MEDICAID, SELFPAY ==
[2020-03-26 15:56] VITALS: BMI 45.0
[2020-04-29] VITALS (7 sets, daily range): BP systolic 105–150; BP diastolic 75–79; PULSE 75–92; RESP 16–18; TEMP 36.4; O2SAT 96; BMI 44.6
--- NOTE | 2020-04-29 15:18 | CM.ED ---
SOCIAL WORK Received call from Barbra with Crisis. Per Barbra, Crisis assessment completed. Recommending hospitalization once patient is medically cleared. Crisis to facilitate placement. Staff cb. Gwendolyn Griffin, [employer]AL [employer]OSS, [employer]INC[employer]AL
--- NOTE | 2020-04-29 15:26 | ED.VISSUMM ---
- ER Visit Summary Date of Service: 04/29/20 Chief Complaint: Suicidal ideation History of Present Illness: The patient is a 24 M history of bipolar disorder, schizophrenia and asthma. He states he is more depressed and if he was going to kill himself he was thinking of either jumping off a bridge or in front of the vehicle. He was placed in a psychiatric facility about a month ago. He tells me he is never actually attempted. He is brought in by his community advocate and was evaluated by crisis prior to arrival. He denies any overdose attempt. Physical Examination: Young male no acute distress. Vital signs stable afebrile. No obvious smell of alcohol. No obvious signs of toxidrome. He is interactive, making eye contact and answering questions willfully. He is not belligerent or screaming. H EENT exam unremarkable. Atraumatic. Neck nontender no signs of trauma. Lungs clear to auscultation bilaterally. Heart regular rhythm no murmur. Chest wall nontender. Abdomen soft nontender normal bowel sounds no peritoneal signs. Patient moving all 4 extremities. No signs of any trauma. No track mcdaniel. No lacerations. Normal strength bilaterally. No edema. Back nontender. Neurologically is awake and alert with no focal motor deficits. Test Results: Labs pending. Emergency Department Course and Treatment: Crisis made us aware that they are planning on transferring this patient to a psychiatric facility. He will undergo ED mental health work-up and labs. I have medically cleared him. I also called and spoke to the patient's mother Dacia and at 3:48 PM. She also believes he needs to be admitted to a psychiatric facility. She told me that he was admitted to a facility called [facility] last month. We discussed his care and she is comfortable with the current plan. I have checked the patient out to the afternoon physician who will check the patient's labs. Treatment Plan: Transfer to psychiatric facility. Disposition: Transfer. Impression: Acute suicidal ideation Acute exacerbation of bipolar disorder Medically cleared by the emergency department. This note was generated with [employer] dictation software. It may contain incorrect words, spelling, and punctuation that were not noted in review of the chart prior to signing ED Disposition - Plan for ED Patient: Referrals: Turner Quick MD [Primary Care Provider] -
[2020-04-29 16:06] LABS: Absolute Lymphocyte Count 2.18 X10^3/uL (0.83-4.51); Absolute Neutrophil Count 3.4 X10^3/uL (2.0-7.7); Basophil# 0.01 X10^3/uL; Basophil% 0.2 % (0-1); Hematocrit 38.5 % (40-54); Hemoglobin 12.2 g/dL (13.0-16.5); Lymphocyte # 2.18 X10^3/ul (4.0); Lymphocyte % 35.1 % (19-41); Mean Corp Hgb Conc 31.7 g/dL (32-36); Mean Corpuscular Hgb 24.9 pg (27.0-32.0); Mean Corpuscular Volume 78.7 fL (80-94); Mean Platelet Vol. 8.7 fl (6.2-12.0); Monocyte# 0.65 X10^3/uL; Monocyte% 10.5 % (0-10); NRBC Flagged by Analyzer 0 % (0-5); Neutrophil # 3.36 X10^3/uL (2.7-7.7); Platelet Count 316 K/mm3 (150-450); RBC Distribution Width CV 15.5 % (11.6-14.6); RBC Distribution Width SD 43.8 fl (35.1-43.9); Red Blood Count 4.89 M/mm3 (4.6-6.2); White Blood Count 6.2 K/mm3 (4.4-11.0)
[2020-04-29 16:14] LABS: Anion Gap 6 (5-15); BUN 12 mg/dL (7-18); BUN/Creat Ratio 16.3 RATIO (10-20); Chloride 106 mmol/L (98-107); Creatinine, Serum 0.74 mg/dL (0.70-1.30); EST Glomerular Filtration Rate 136 mL/min (>60); Est Glom Filt Rate - Afr Amer 164 mL/min (>60); Estimated Creatinine Clearance 166.04 ml/min; Glucose 81 mg/dL (74-106); Potassium 3.9 mmol/L (3.5-5.1); Sodium Level 140 mmol/L (136-145)
[2020-04-29 16:25] LABS: Amphetamine Urine VISTA NEGATIVE (<1000 ng/mL); Barbiturate Urine VISTA NEGATIVE (< 200 ng/mL); Benzodiazepine Urine VISTA NEGATIVE (< 200 ng/mL); Cocaine Urine VISTA NEGATIVE (< 300 ng/mL); Ecstacy Urine VISTA NEGATIVE (< 500 ng/mL); Methadone Urine VISTA NEGATIVE (< 300 ng/mL); PCP Urine VISTA NEGATIVE (< 25 ng/mL); THC Urine VISTA NEGATIVE (< 50 ng/mL); Vista UDS pH Range 6
[2020-04-29 16:32] LABS: Alcohol, Blood (Medical)-Serum < 3.0 mg/dL
--- NOTE | 2020-04-29 16:39 | CM.ED ---
SOCIAL WORK Chart faxed to [facility] for placement needs. Gwendolyn Griffin, HAND FLESHER, CERTIFIED SURGICAL ASSISTANT
--- NOTE | 2020-04-29 17:45 | ED.RN ---
Pt broke right upper tooth while eating a carrot. notified.
[2020-04-29] MEDS: Ibuprofen 400 MG Tablet 800 MG PO (18:32)
[2020-04-30 01:26] VITALS: RESP 18
[2020-04-30 02:33] VITALS: BP 137/87; PULSE 71; RESP 16; O2SAT 94
[2020-04-30 02:36] VITALS: BP 137/87; PULSE 71; RESP 16; TEMP 36.4; O2SAT 94
[2020-04-30 03:15] VITALS: RESP 16
[2020-04-30 04:21] VITALS: RESP 16
== END 2020-04-30 04:22 ==
LOC: ED 15:34
PROVIDERS: Emergency Provider Emergency Medicine; PCP Family Medicine
DX: R45.851 Suicidal ideations (principal); F31.9 Bipolar disorder, unspecified; F20.9 Schizophrenia, unspecified; J45.909 Unspecified asthma, uncomplicated
CPT/HCPCS: 36415; 80048; 80307; 82077; 85025; 87426; 99285

== ENCOUNTER 2020-05-14 15:50 | Outpatient (RCR) | payer MEDICARE, SELFPAY ==
[2020-04-29 15:14] VITALS: BMI 44.6
== END 2020-05-14 23:59 ==
LOC: IMMUN 15:50
PROVIDERS: PCP Family Medicine; Referring Provider Family Medicine; Visit Provider Family Medicine
DX: Z23 Encounter for immunization (principal)
CPT/HCPCS: 0012A; 91301

== ENCOUNTER 2020-05-27 09:38 | Emergency (ER) | payer MEDICARE, MEDICAID, SELFPAY ==
[2020-04-29 15:14] VITALS: BMI 44.6
[2020-05-27 09:39] VITALS: BP 152/92; PULSE 106; RESP 18; TEMP 35.9; O2SAT 96; BMI 40.6
--- NOTE | 2020-05-27 10:04 | ED.DCSUM_ITS ---
History of Present Illness Chief Complaint: Suicidal Informant: Patient Onset: Today Context: Sudden Onset Associated Symptoms: Suicidal Thoughts, Auditory Hallucinations Specific plan (suicidal thought): jump off bridge Narrative: Patient is a 24-year-old male with history of seizure disorder, depression and schizoaffective disorder presenting with suicidal thoughts. Patient states he woke up and started hearing voices that were telling him to jump off the bridge. He thinks he would do it. He has had multiple visits for suicidal ideations but denies any suicidal attempts in the past. He lives with his mother. Patient states he is on Invanz and BuSpar and has been compliant with his medications. He denies any homicidal ideations. He denies any other physical complaints. Prior similar symptoms: Yes Past Medical History - Allergies and Home Meds Allergies/Adverse Reactions: Allergies carbamazepine [From Tegretol] Allergy (Verified 05/27/20 09:39) Unknown divalproex sodium [From Depakote] Allergy (Verified 05/27/20 09:39) Other methylphenidate [From Concerta] Allergy (Verified 05/27/20 09:39) Unknown methylphenidate HCl [From Ritalin] Allergy (Verified 05/27/20 09:39) Unknown phenobarbital Allergy (Verified 05/27/20 09:39) Hives Primary Care Physician: Turner Quick MD [Primary Care Provider] - Past Medical History: - - seizure disorder, depression and schizoaffective disorder Surgical History: noncontributory, - - Hernia repair Lives: With Family Smoking Status: Never smoker - Family History Maternal Family History: Family History (Last Updated 05/29/17 @ 13:30 by Itzel Pablo) Other Asthma Diabetes Hypertension Kidney disease Family History: Reports: No pertinent history Review of Systems General: Denies: Chills, Fever, Sweats Eyes: Denies: Visual changes - bilaterally, Diplopia ENT: Denies: Rhinorrhea, Sore throat Cardiovascular: Denies: Chest pain, Palpitations Respiratory: Denies: Dyspnea, Cough, Dyspnea on exertion Gastrointestinal: Denies: Abdominal pain, Nausea, Vomiting, Diarrhea, Melena, Hematochezia Genitourinary: Denies: Dysuria, Hematuria, Frequency Musculoskeletal: Denies: Back pain, Extremity Pain Skin: Denies: Rash, Wounds Neurological: Reports: Headache - Intermittent?history of migraines, none currently. Denies: Weakness, Numbness Psych: Reports: Depression, Suicidal thoughts Physical Exam Vital Signs/Narrative: Vital Signs Temp Pulse Resp BP Pulse Ox 05/27/20 09:39 96.6 F L 106 H 18 152/92 H 96 Inital Vital Signs reviewed: Yes General: Well nourished, Well developed, Obese Head: Normocephalic, Atraumatic Eyes: Perrl, EOMI ENT: Moist mucous membranes, No rhinorrhea Neck: Supple, Nontender Cardiovascular: Regular rate, Regular rhythm, No murmurs Respiratory: No distress, CTA bilaterally, Chest nontender Abdomen: Soft, Nontender, Nondistended, Normal bowel sounds Back: Nontender, Normal Inspection Extremities: Nontender, No Edema Skin: Normal color, No rash Neurological: Alert, Oriented x3, Cranial nerves II-XII grossly intact, Normal Strength, Normal Sensation Psych: Normal Speech Pattern, Suicidal thoughts, Limited Judgement. Negative for: Homicidal thoughts Diagnostic/Tx/Re-eval Laboratory Data 05/27/20 05/27/20 05/27/20 09:52 10:04 10:04 WBC 6.6 RBC 5.14 Hgb 12.7 L Hct 40.2 MCV 78.2 L MCH 24.7 L MCHC 31.6 L RDW Std Deviation 43.8 RDW Coeff of Nano 15.4 H Plt Count 339 MPV 8.6 Immature Gran % (Auto) 0.300 Neut % (Auto) 65.8 Lymph % (Auto) 26.3 [place] % (Auto) 7.4 Eos % (Auto) 0.0 Baso % (Auto) 0.2 Absolute Neuts (auto) 4.4 Absolute Lymphs (auto) 1.74 Nucleated RBC % 0 Sodium 138 Potassium 3.8 Chloride 106 Carbon Dioxide 26.0 Anion Gap 6 BUN 12 Creatinine 0.79 Estim Creat Clear Calc 155.53 Est GFR (MDRD) Af Amer 151 Est GFR (MDRD) Non-Af 125 BUN/Creatinine Ratio 15.1 Glucose 119 H Calcium 9.4 Urine Opiates Screen NEGATIVE Urine Methadone Screen NEGATIVE Ur Barbiturates Screen NEGATIVE Ur Phencyclidine Scrn NEGATIVE Ur Amphetamines Screen NEGATIVE U Methamphetamin-MDMA NEGATIVE U Benzodiazepines Scrn NEGATIVE Urine Cocaine Screen NEGATIVE U Cannabinoids Screen NEGATIVE Ur Drug Screen Comment Ethyl Alcohol 05/27/20 10:04 WBC RBC Hgb Hct MCV MCH MCHC RDW Std Deviation RDW Coeff of Nano Plt Count MPV Immature Gran % (Auto) Neut % (Auto) Lymph % (Auto) [place] % (Auto) Eos % (Auto) Baso % (Auto) Absolute Neuts (auto) Absolute Lymphs (auto) Nucleated RBC % Sodium Potassium Chloride Carbon Dioxide Anion Gap BUN Creatinine Estim Creat Clear Calc Est GFR (MDRD) Af Amer Est GFR (MDRD) Non-Af BUN/Creatinine Ratio Glucose Calcium Urine Opiates Screen Urine Methadone Screen Ur Barbiturates Screen Ur Phencyclidine Scrn Ur Amphetamines Screen U Methamphetamin-MDMA U Benzodiazepines Scrn Urine Cocaine Screen U Cannabinoids Screen Ur Drug Screen Comment Ethyl Alcohol < 3.0 Patient is evaluated for auditory hallucinations and suicidal ideations. Patient has a long history of this and is well-known to our ER. He has no history of actual suicide attempt. He states he does not want to actually but is afraid that he would act on his thoughts. Patient is evaluated with case management is contracted for safety. At this time I do not think he needs emergent inpatient psychiatric care. Patient is medically cleared. ER patient is very cooperative and directable. He will be discharged back to the care of his mother. ED Disposition - Plan for ED Patient: Disposition: Home or Assisted Living Diagnosis: Auditory hallucinations Instructions: CONTRACT, No Harm Referrals: Turner Quick MD [Primary Care Provider] - [facility] [GROUP OF PHYSICIANS] -
[2020-05-27 10:13] LABS: Absolute Lymphocyte Count 1.74 X10^3/uL (0.83-4.51); Absolute Neutrophil Count 4.4 X10^3/uL (2.0-7.7); Basophil# 0.01 X10^3/uL; Basophil% 0.2 % (0-1); Hematocrit 40.2 % (40-54); Hemoglobin 12.7 g/dL (13.0-16.5); Lymphocyte # 1.74 X10^3/ul (4.0); Lymphocyte % 26.3 % (19-41); Mean Corp Hgb Conc 31.6 g/dL (32-36); Mean Corpuscular Hgb 24.7 pg (27.0-32.0); Mean Corpuscular Volume 78.2 fL (80-94); Mean Platelet Vol. 8.6 fl (6.2-12.0); Monocyte# 0.49 X10^3/uL; Monocyte% 7.4 % (0-10); NRBC Flagged by Analyzer 0 % (0-5); Neutrophil # 4.35 X10^3/uL (2.7-7.7); Neutrophil % 65.8 % (47-70); Platelet Count 339 K/mm3 (150-450); RBC Distribution Width CV 15.4 % (11.6-14.6); RBC Distribution Width SD 43.8 fl (35.1-43.9); Red Blood Count 5.14 M/mm3 (4.6-6.2); White Blood Count 6.6 K/mm3 (4.4-11.0)
[2020-05-27 10:29] LABS: Amphetamine Urine VISTA NEGATIVE (<1000 ng/mL); Barbiturate Urine VISTA NEGATIVE (< 200 ng/mL); Benzodiazepine Urine VISTA NEGATIVE (< 200 ng/mL); Cocaine Urine VISTA NEGATIVE (< 300 ng/mL); Ecstacy Urine VISTA NEGATIVE (< 500 ng/mL); Methadone Urine VISTA NEGATIVE (< 300 ng/mL); PCP Urine VISTA NEGATIVE (< 25 ng/mL); THC Urine VISTA NEGATIVE (< 50 ng/mL); Vista UDS pH Range 6
[2020-05-27 10:33] LABS: Alcohol, Blood (Medical)-Serum < 3.0 mg/dL
[2020-05-27 10:34] LABS: Anion Gap 6 (5-15); BUN 12 mg/dL (7-18); BUN/Creat Ratio 15.1 RATIO (10-20); Calcium,Total 9.4 mg/dL (8.5-10.1); Chloride 106 mmol/L (98-107); Creatinine, Serum 0.79 mg/dL (0.70-1.30); EST Glomerular Filtration Rate 125 mL/min (>60); Est Glom Filt Rate - Afr Amer 151 mL/min (>60); Estimated Creatinine Clearance 155.53 ml/min; Glucose 119 mg/dL (74-106); Potassium 3.8 mmol/L (3.5-5.1); Sodium Level 138 mmol/L (136-145)
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
== END 2020-05-27 11:55 | disposition home or self-care (01) ==
PROVIDERS: Emergency Provider Emergency Medicine; PCP Family Medicine
DX: R44.0 Auditory hallucinations (principal); R45.851 Suicidal ideations; E66.9 Obesity, unspecified; F32.9 Major depressive disorder, single episode, unspecified; G40.909 Epilepsy, unspecified, not intractable, without status epilepticus; Z82.49 Family history of ischemic heart disease and other diseases of the circulatory system; Z83.3 Family history of diabetes mellitus
CPT/HCPCS: 36415; 80048; 80307; 82077; 85025; 99283

== ENCOUNTER 2020-06-17 11:16 | Emergency (ER) | payer MEDICARE, MEDICAID, SELFPAY ==
[2020-06-17] VITALS (7 sets, daily range): BP systolic 130–139; BP diastolic 73–97; PULSE 79–102; RESP 16–18; TEMP 36.7–37; O2SAT 94–97; BMI 40.6
[2020-06-17 11:57] LABS: Absolute Lymphocyte Count 2.58 X10^3/uL (0.83-4.51); Basophil# 0.01 X10^3/uL; Basophil% 0.1 % (0-1); Hematocrit 40.4 % (40-54); Hemoglobin 12.8 g/dL (13.0-16.5); Lymphocyte # 2.58 X10^3/ul (0.83-4.51); Lymphocyte % 30.8 % (19-41); Mean Corp Hgb Conc 31.7 g/dL (32-36); Mean Corpuscular Hgb 24.8 pg (27.0-32.0); Mean Corpuscular Volume 78.3 fL (80-94); Mean Platelet Vol. 8.9 fl (6.2-12.0); Monocyte# 0.78 X10^3/uL; Monocyte% 9.3 % (0-10); NRBC Flagged by Analyzer 0 % (0-5); Neutrophil # 4.98 X10^3/uL (2.7-7.7); Neutrophil % 59.3 % (47-70); Platelet Count 334 K/mm3 (150-450); RBC Distribution Width CV 15.5 % (11.6-14.6); RBC Distribution Width SD 44.1 fl (35.1-43.9); Red Blood Count 5.16 M/mm3 (4.6-6.2); White Blood Count 8.4 K/mm3 (4.4-11.0)
[2020-06-17 12:09] LABS: Anion Gap 8 (5-15); BUN 11 mg/dL (7-18); Calcium,Total 9.1 mg/dL (8.5-10.1); Chloride 103 mmol/L (98-107); Creatinine, Serum 0.73 mg/dL (0.70-1.30); EST Glomerular Filtration Rate 137 mL/min (>60); Est Glom Filt Rate - Afr Amer 165 mL/min (>60); Estimated Creatinine Clearance 168.31 ml/min; Glucose 85 mg/dL (74-106); Potassium 3.6 mmol/L (3.5-5.1); Sodium Level 138 mmol/L (136-145)
[2020-06-17 12:09] LABS: Amphetamine Urine VISTA NEGATIVE (<1000 ng/mL); Barbiturate Urine VISTA NEGATIVE (< 200 ng/mL); Benzodiazepine Urine VISTA NEGATIVE (< 200 ng/mL); Cocaine Urine VISTA NEGATIVE (< 300 ng/mL); Ecstacy Urine VISTA NEGATIVE (< 500 ng/mL); Methadone Urine VISTA NEGATIVE (< 300 ng/mL); PCP Urine VISTA NEGATIVE (< 25 ng/mL); THC Urine VISTA NEGATIVE (< 50 ng/mL); Vista UDS pH Range 6
--- NOTE | 2020-06-17 12:32 | ED.VIS.GEN ---
History of Present Illness Chief Complaint: Suicidal Informant: Patient Onset: Today Narrative: Patient presents private vehicle from his mother for increasing suicidal ideation today with flare of his schizophrenia. States he is at work states he is hearing voices telling him to kill himself, jump off a bridge. Similar symptoms in the past. He was admitted to [facility] last month for 8 days. He denies homicidal ideation denies visual loose Nations. He denies alcohol or illicit drug use. Does have history of Asperger's disease along with seizure disorder. He denies chest pains cough nausea or vomiting. States yesterday mild loose stools. No urinary symptoms. No fevers. No loss of taste or smell. No dyspnea. Prior similar symptoms: Yes Past Medical History - Allergies and Home Meds Allergies/Adverse Reactions: Allergies carbamazepine [From Tegretol] Allergy (Verified 06/17/20 11:18) Unknown divalproex sodium [From Depakote] Allergy (Verified 06/17/20 11:18) Other methylphenidate [From Concerta] Allergy (Verified 06/17/20 11:18) Unknown methylphenidate HCl [From Ritalin] Allergy (Verified 06/17/20 11:18) Unknown phenobarbital Allergy (Verified 06/17/20 11:18) Hives Primary Care Physician: Turner Quick MD [Primary Care Provider] - Past Medical History: - - Asperger's, seizure disorder, schizophrenia Surgical History: noncontributory, - - Hernia repair Smoking Status: Never smoker - Family History Maternal Family History: Family History (Last Updated 05/29/17 @ 13:30 by Itzel Pablo) Other Asthma Diabetes Hypertension Kidney disease Family History: Reports: No pertinent history Review of Systems General: Denies: Chills, Fever, Sweats Eyes: Denies: Visual changes - bilaterally, Diplopia ENT: Denies: Rhinorrhea, Sore throat Cardiovascular: Denies: Chest pain, Palpitations Respiratory: Denies: Dyspnea, Cough, Dyspnea on exertion Gastrointestinal: Reports: Diarrhea. Denies: Abdominal pain, Nausea, Vomiting, Melena, Hematochezia Genitourinary: Denies: Dysuria, Hematuria, Frequency Musculoskeletal: Denies: Back pain, Extremity Pain Skin: Denies: Rash, Wounds Neurological: Denies: Headache, Weakness, Numbness Psych: Reports: Suicidal thoughts, Suicidal ideations Physical Exam Vital Signs/Narrative: Vital Signs Temp Pulse Resp BP Pulse Ox 06/17/20 12:16 16 06/17/20 11:21 16 06/17/20 11:18 98.6 F 102 H 16 139/97 H 94 Inital Vital Signs reviewed: Yes General: Well nourished, Well developed, No Acute Distress Head: Normocephalic, Atraumatic Eyes: Perrl, EOMI ENT: No rhinorrhea, - - Mild dry mucosal membranes. Neck: Supple, Nontender Cardiovascular: Regular rate, Regular rhythm, No murmurs Respiratory: No distress, CTA bilaterally, Chest nontender Abdomen: Soft, Nontender, Nondistended, Normal bowel sounds Back: Nontender, Normal Inspection Extremities: Nontender, No edema Skin: Normal color, No rash Neurological: Alert, Oriented x3, Cranial nerves II-XII grossly intact, Normal Strength, Normal Sensation Psychological: - - Cooperative, calm, admits to suicidal ideations with auditory hallucinations Diagnostic/Tx/Re-eval - Medical Decision Making Abnormal Lab Results 06/17/20 06/17/20 06/17/20 11:30 11:46 11:46 WBC 8.4 RBC 5.16 Hgb 12.8 L Hct 40.4 MCV 78.3 L MCH 24.8 L MCHC 31.7 L RDW Std Deviation 44.1 H RDW Coeff of Nano 15.5 H Plt Count 334 MPV 8.9 Immature Gran % (Auto) 0.500 Neut % (Auto) 59.3 Lymph % (Auto) 30.8 [place] % (Auto) 9.3 Eos % (Auto) 0.0 Baso % (Auto) 0.1 Absolute Neuts (auto) 5.0 Absolute Lymphs (auto) 2.58 Nucleated RBC % 0 Sodium 138 Potassium 3.6 Chloride 103 Carbon Dioxide 27.0 Anion Gap 8 BUN 11 Creatinine 0.73 Estim Creat Clear Calc 168.31 Est GFR (MDRD) Af Amer 165 Est GFR (MDRD) Non-Af 137 BUN/Creatinine Ratio 15.0 Glucose 85 Calcium 9.1 Urine Opiates Screen NEGATIVE Urine Methadone Screen NEGATIVE Ur Barbiturates Screen NEGATIVE Ur Phencyclidine Scrn NEGATIVE Ur Amphetamines Screen NEGATIVE U Methamphetamin-MDMA NEGATIVE U Benzodiazepines Scrn NEGATIVE Urine Cocaine Screen NEGATIVE U Cannabinoids Screen NEGATIVE Ur Drug Screen Comment Ethyl Alcohol 06/17/20 11:46 WBC RBC Hgb Hct MCV MCH MCHC RDW Std Deviation RDW Coeff of Nano Plt Count MPV Immature Gran % (Auto) Neut % (Auto) Lymph % (Auto) [place] % (Auto) Eos % (Auto) Baso % (Auto) Absolute Neuts (auto) Absolute Lymphs (auto) Nucleated RBC % Sodium Potassium Chloride Carbon Dioxide Anion Gap BUN Creatinine Estim Creat Clear Calc Est GFR (MDRD) Af Amer Est GFR (MDRD) Non-Af BUN/Creatinine Ratio Glucose Calcium Urine Opiates Screen Urine Methadone Screen Ur Barbiturates Screen Ur Phencyclidine Scrn Ur Amphetamines Screen U Methamphetamin-MDMA U Benzodiazepines Scrn Urine Cocaine Screen U Cannabinoids Screen Ur Drug Screen Comment Ethyl Alcohol 4.0 Patient calm cooperative, admitting to suicidal ideations. Work-up initiated labs are normal tox and alcohol negative. Covid testing obtained due to his reported diarrhea yesterday which also was negative. He is medically cleared. He is evaluated social work in the ED for plan placement. 1711: Patient accepted to [facility] under Dr. Lam. Mother consented to the facility. ED Disposition - Plan for ED Patient: Disposition: Psychiatric Hospital or Unit Diagnosis: Suicidal ideation, Aspergers' syndrome, History of schizophrenia Referrals: Turner Quick MD [Primary Care Provider] -
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
--- NOTE | 2020-06-17 16:50 | CM.ED ---
Social Work Note Update WALTER received call from Ranjith at [facility]. They agreed to accept patient. Ranjith will call the guardian to get consent for patient's treatment. They will be sending the guardian paperwork via email. WALTER updated MD George and LO Mccoy that patient was accepted to [facility]. WALTER spoke to patient's mother and advised that patient had been accepted at [facility]. She was in agreement with patient going to [facility] and voiced no concerns or issues. SW updated patient that he is going to [facility]. Patient is receptive and in agreement with plan. RN was updated to call report to 1600 unit. Silo Erector was updated to call for ambulance. Patient updated that ambulance is being called for him to be transported. Plan: Patient will receive inpatient psychiatric treatment at [facility].
--- NOTE | 2020-06-17 17:02 | NURSING ---
[facility]ANS ETA IS [id number]
== END 2020-06-17 18:00 ==
PROVIDERS: Emergency Provider Emergency Medicine; PCP Family Medicine
DX: R45.851 Suicidal ideations (principal); F20.9 Schizophrenia, unspecified; F84.5 Asperger's syndrome; G40.909 Epilepsy, unspecified, not intractable, without status epilepticus; Z82.49 Family history of ischemic heart disease and other diseases of the circulatory system; Z83.3 Family history of diabetes mellitus
CPT/HCPCS: 36415; 80048; 80307; 82077; 85025; 87426; 99285

== ENCOUNTER 2020-07-04 15:43 | Emergency (ER) | payer MEDICARE, MEDICAID, SELFPAY ==
[2020-06-17 11:18] VITALS: BMI 40.6
[2020-07-04 15:44] VITALS: BP 134/66; PULSE 86; RESP 16; TEMP 36.4; O2SAT 95; BMI 44.1
--- NOTE | 2020-07-04 16:23 | CT_ITS ---
EXAMINATION : Head CT w/out contrast HISTORY : Headache COMPARISON : 03/19/2016. TECHNIQUE : Multiple contiguous axial images were obtained from the skull base to the vertex without intravenous contrast. A radiation dose optimization technique was used for this scan. FINDINGS : The ventricles and sulci are normal in size. There is no evidence for acute intracranial hemorrhage, mass effect, or midline shift. There is no extra-axial fluid collection. There is normal aguirre-white differentiation, without CT evidence of acute ischemia or infarct. The skull base and calvarium are unremarkable. The orbits are unremarkable. The paranasal sinuses are clear. The mastoid air cells are well-aerated. The soft tissues are unremarkable. CT/Brain/Head without Contrast IMPRESSION: No acute intracranial abnormality. Electronically Signed: Clinton Morales MD at 17:35 EDT Tel , Service support ,
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
[2020-07-04] MEDS: 0.9% Normal Saline 1,000 ML 999 ML IV (16:44)
[2020-07-04] MEDS: DiphenhydrAMINE 50 MG/ML Syringe 25 MG IV (16:44)
[2020-07-04] MEDS: proCHLORPERazine 10 MG/2 ML Vial IV (16:44)
[2020-07-04 16:59] LABS: Absolute Lymphocyte Count 2.67 X10^3/uL (0.83-4.51); Absolute Neutrophil Count 3.7 X10^3/uL (2.0-7.7); Basophil# 0.01 X10^3/uL; Basophil% 0.1 % (0-1); Hematocrit 38.4 % (40-54); Hemoglobin 12.2 g/dL (13.0-16.5); Lymphocyte # 2.67 X10^3/ul (0.83-4.51); Lymphocyte % 38.1 % (19-41); Mean Corp Hgb Conc 31.8 g/dL (32-36); Mean Corpuscular Hgb 24.7 pg (27.0-32.0); Mean Corpuscular Volume 77.7 fL (80-94); Mean Platelet Vol. 8.3 fl (6.2-12.0); Monocyte# 0.61 X10^3/uL; Monocyte% 8.7 % (0-10); NRBC Flagged by Analyzer 0 % (0-5); Neutrophil # 3.68 X10^3/uL (2.7-7.7); Neutrophil % 52.5 % (47-70); Platelet Count 371 K/mm3 (150-450); RBC Distribution Width CV 15.1 % (11.6-14.6); RBC Distribution Width SD 41.7 fl (35.1-43.9); Red Blood Count 4.94 M/mm3 (4.6-6.2)
[2020-07-04 17:17] LABS: ALB/GLOB Ratio 0.9 RATIO (0.9-2.4); AST(SGOT) 9 U/L (15-37); Alanine Aminotransfer ALT/SGPT 29 U/L (16-61); Albumin, Serum 3.4 g/dL (3.2-5.0); Alkaline Phosphatase 102 U/L (45-117); Anion Gap 5 (5-15); BUN 13 mg/dL (7-18); BUN/Creat Ratio 17.7 RATIO (10-20); Chloride 108 mmol/L (98-107); Creatinine, Serum 0.73 mg/dL (0.70-1.30); EST Glomerular Filtration Rate 137 mL/min (>60); Est Glom Filt Rate - Afr Amer 165 mL/min (>60); Estimated Creatinine Clearance 168.31 ml/min; Globulin 3.6 g/dL (2.2-4.2); Glucose 90 mg/dL (74-106); Potassium 3.6 mmol/L (3.5-5.1); Sodium Level 140 mmol/L (136-145)
== END 2020-07-04 18:31 | disposition home or self-care (01) ==
PROVIDERS: Emergency Provider Student in an Organized Health Care Education/Training Program; PCP Family Medicine
DX: S06.0X9A Concussion with loss of consciousness of unspecified duration, initial encounter (principal); G40.909 Epilepsy, unspecified, not intractable, without status epilepticus; Z79.899 Other long term (current) drug therapy; X58.XXXA Exposure to other specified factors, initial encounter
CPT/HCPCS: 70450; 80053; 85025; 96361; 96374; 96375; 99282; J7030; A4216

== ENCOUNTER 2020-07-23 17:09 | Emergency (ER) | payer MEDICARE, MEDICAID, SELFPAY ==
[2020-07-23 17:10] VITALS: BP 139/76; PULSE 88; RESP 16; TEMP 36.6; O2SAT 95; BMI 44.6
--- NOTE | 2020-07-23 17:34 | EX.ED.DYSGE1 ---
HPI History of Present Illness Chief Complaint: Suicidal Detail of Chief Complaint: Suicidal ideation started this morning Informant: patient Narrative Narrative: Patient states that he woke up this morning with suicidal thoughts. Hearing voices that tell him to kill self. Patient denies visual hallucinations. Patient does not feel that he can keep self safe. Patient denies recent illness. This plan to stab himself. Patient has had prior admissions to psychiatric facility and the last one was a month and a half ago [facility] Prior similar symptoms: Yes PFSH PFS Medical History (Updated 07/23/20 @ 20:[address] Marni Mondragon, DO) Asthma Back pain Knee pain Pneumonia Seizures Home Medications lamotrigine 150 mg PO BID 05/12/14 [History Last Taken 07/14/15] perphenazine 8 mg PO BID 06/07/14 [History Last Taken 07/14/15] benztropine 0.5 mg PO BID 11/21/14 [History Last Taken 07/14/15] omeprazole 40 mg PO DAILY 12/24/15 [History Last Taken Unknown] docusate sodium 50 mg capsule 50 mg PO QDAY 05/29/17 [History Last Taken Unknown] escitalopram oxalate 20 mg PO DAILY 05/19/18 [History Last Taken Unknown] paliperidone palmitate 234 mg IM QMONTH 12/01/18 [History Last Taken Unknown] Allergy/AdvReac Type Severity Reaction Status Date / Time carbamazepine [From Tegretol] Allergy Unknown Verified 07/23/20 17:12 divalproex sodium Allergy Other Verified 07/23/20 17:12 [From Depakote] methylphenidate Allergy Unknown Verified 07/23/20 17:12 [From Concerta] methylphenidate HCl Allergy Unknown Verified 07/23/20 17:12 [From Ritalin] phenobarbital Allergy Hives Verified 07/23/20 17:12 Family History Other Asthma Diabetes Hypertension Kidney disease Surgical History H/O hernia repair Hx of tympanostomy tubes Social History (Updated 07/04/20 @ 16:47 by Jessa Feliciano) household members: family housing: house Smoking Status: Never smoker alcohol intake: never ROS ROS ED Constitutional Constitutional ED: Reports systems reviewed and no addt'l complaints, except as documented; Denies body ache(s), change in weight or chills Eyes Eyes: Denies acute decrease in peripheral vision, change in vision, double vision or loss of vision ENT ENT ED: Reports none; Denies ear pain, lip swelling, loss taste/smell, neck pain, otalgia or sore throat Cardiovascular Cardiovascular: Reports none; Denies abdominal pain, chest pain with activity, leg edema, lightheadedness, palpitations, rapid heart rate or syncope Respiratory/Chest Respiratory/Chest: Reports none; Denies change in mental status, dry cough, dyspnea, hemoptysis, shortness of breath at rest or shortness of breath with exertion Gastrointestinal Gastrointestinal: Reports none; Denies abdominal pain, change in stool character, diarrhea, hematemesis, hematochezia, melena, rectal bleeding or vomiting Genitourinary Genitourinary ED: Reports none; Denies abdominal discomfort, anuria, dysuria, genital pain or polyuria Musculoskeletal Musculoskeletal: Reports none; Denies arthralgias, back pain, difficulty walking, extremity pain, muscle weakness or myalgias Integumentary Reports none; Denies abscess or rash Neurologic Neurologic: Reports none; Denies abnormal gait, confusion, focal weakness, frequent falls, headache(s), loss of vision, numbness, paresthesias, radicular pain, vertigo or weakness Psychiatric Psychiatric: Reports systems reviewed and no addt'l complaints, except as documented, none, auditory hallucinations, suicidal ideation and suicidal thoughts; Denies behavioral changes, confusion, difficulty concentrating, hallucinations, tactile hallucinations or visual hallucinations Endocrine Endocrinology: Denies none, cold intolerance, excessive sweating, fatigue or heat intolerance Hematologic/Lymphatic Hematologic/Lymphatic: Reports none; Denies anemia, easy bleeding or easy bruising Allergic/Immunologic Allergic/Immunologic ED: Denies as per HPI, none, lip swelling, mouth swelling, throat swelling, tongue swelling or hives EXAM Physical Exam Const Vital Signs: 07/23/20 17:10 07/23/20 19:41 Temperature 98 F Temperature Source Temporal Pulse Rate 88 Respiratory Rate 16 16 Blood Pressure 139/76 H Blood Pressure Mean 97 Pulse Ox 95 Oxygen Delivery Method Room Air Positive well nourished and well developed General Appearance ED: well developed and NAD HEENT Reports TM's clear and moist mucous membranes normocephalic and atraumatic; Negative for trauma or tenderness Tympanic Membrane ED: Yes TM's clear Eyes PERRL and EOMs intact bilaterally General Eye ED: Negative for pale conjunctiva or scleral icterus Neck no lymphadenopathy, supple and no JVD General: Negative for tenderness Chest Wall inspection of chest normal and palpation of chest normal Chest: Negative for tenderness Resp normal respiratory effort and clear to auscultation bilaterally Effort and Inspection: Negative for respiratory distress or pain with movement Auscultation: Negative for rhonchi, wheezes or diminished lung sounds Cardio regular rate, regular rhythm, S1 normal heart sound, S2 normal heart sound and no murmurs Peripheral Pulses: pulses 2+ throughout GI normal to inspection, nondistended, normoactive bowel sounds, soft to palpation, non-tender, non-distended and no masses Back/Spine no CVA tenderness and no thoracic nor lumbar tenderness Extremity normal to inspection General Extremety ED: Negative for edema General Extremity: Negative for edema Neuro oriented x3, CN's II-XII intact bilaterally, no sensory deficits noted and gait normal Sensorium / Orientation: awake, alert, oriented to person, oriented to place and oriented to time Motor Exam: strength 5/5 throughout and strength abnormal Psych mental status grossly normal Skin no rashes or lesions noted and no wounds MDM MDM MDM Narrative Medical decision making narrative: Patient was evaluated by social service liaison and will be transferred to [facility] for psychiatric stabilization. Lab Data Attestation: I reviewed the patient's lab results. Labs: Laboratory Results - last 24 hr 07/23/20 07/23/20 07/23/20 18:00 18:07 18:07 WBC 7.5 RBC 4.93 Hgb 12.4 L Hct 38.4 L MCV 77.9 L MCH 25.2 L MCHC 32.3 RDW Std Deviation 43.7 RDW Coeff of Nano 15.5 H Plt Count 301 MPV 9.0 Immature Gran % (Auto) 0.300 Neut % (Auto) 61.8 Lymph % (Auto) 30.2 [place] % (Auto) 7.6 Eos % (Auto) 0.0 Baso % (Auto) 0.1 Absolute Neuts (auto) 4.7 Absolute Lymphs (auto) 2.27 Nucleated RBC % 0 Sodium 137 Potassium 3.6 Chloride 105 Carbon Dioxide 26.0 Anion Gap 6 BUN 12 Creatinine 0.89 Estim Creat Clear Calc 133.96 Est GFR (MDRD) Af Amer 131 Est GFR (MDRD) Non-Af 109 BUN/Creatinine Ratio 13.4 Glucose 93 Calcium 9.1 Urine Opiates Screen NEGATIVE Urine Methadone Screen NEGATIVE Ur Barbiturates Screen NEGATIVE Ur Phencyclidine Scrn NEGATIVE Ur Amphetamines Screen NEGATIVE U Methamphetamin-MDMA NEGATIVE U Benzodiazepines Scrn NEGATIVE Urine Cocaine Screen NEGATIVE U Cannabinoids Screen NEGATIVE Ur Drug Screen Comment Ethyl Alcohol 07/23/20 18:07 WBC RBC Hgb Hct MCV MCH MCHC RDW Std Deviation RDW Coeff of Nano Plt Count MPV Immature Gran % (Auto) Neut % (Auto) Lymph % (Auto) [place] % (Auto) Eos % (Auto) Baso % (Auto) Absolute Neuts (auto) Absolute Lymphs (auto) Nucleated RBC % Sodium Potassium Chloride Carbon Dioxide Anion Gap BUN Creatinine Estim Creat Clear Calc Est GFR (MDRD) Af Amer Est GFR (MDRD) Non-Af BUN/Creatinine Ratio Glucose Calcium Urine Opiates Screen Urine Methadone Screen Ur Barbiturates Screen Ur Phencyclidine Scrn Ur Amphetamines Screen U Methamphetamin-MDMA U Benzodiazepines Scrn Urine Cocaine Screen U Cannabinoids Screen Ur Drug Screen Comment Ethyl Alcohol < 3.0 Discharge Plan Triage Chief Complaint: Suicidal ED Provider: Marni Mondragon Dx/Rx/DC Orders Clinical Impression: Depression with suicidal ideation, Psychosis Prescriptions: No Action docusate sodium [Stool Softener] 50 mg capsule 50 mg PO QDAY RF: 0 lamotrigine 150 MG tablet 150 mg PO BID RF: 0 perphenazine 4 MG tablet 8 mg PO BID RF: 0 benztropine 2 MG tablet 0.5 mg PO BID RF: 0 omeprazole 40 MG capsule 40 mg PO DAILY RF: 0 escitalopram oxalate 10 MG tablet 20 mg PO DAILY RF: 0 paliperidone palmitate 234 mg/1.5 mL syringe 234 mg IM QMONTH RF: 0 Primary Care Provider: Turner Quick Referrals: Turner Quick MD [Primary Care Provider] - Disposition Disposition: Psychiatric Hospital or Unit Discharge Location: [facility]
[2020-07-23 18:19] LABS: Absolute Lymphocyte Count 2.27 X10^3/uL (0.83-4.51); Absolute Neutrophil Count 4.7 X10^3/uL (2.0-7.7); Basophil# 0.01 X10^3/uL; Basophil% 0.1 % (0-1); Hematocrit 38.4 % (40-54); Hemoglobin 12.4 g/dL (13.0-16.5); Lymphocyte # 2.27 X10^3/ul (0.83-4.51); Lymphocyte % 30.2 % (19-41); Mean Corp Hgb Conc 32.3 g/dL (32-36); Mean Corpuscular Hgb 25.2 pg (27.0-32.0); Mean Corpuscular Volume 77.9 fL (80-94); Monocyte# 0.57 X10^3/uL; Monocyte% 7.6 % (0-10); NRBC Flagged by Analyzer 0 % (0-5); Neutrophil # 4.65 X10^3/uL (2.7-7.7); Neutrophil % 61.8 % (47-70); Platelet Count 301 K/mm3 (150-450); RBC Distribution Width CV 15.5 % (11.6-14.6); RBC Distribution Width SD 43.7 fl (35.1-43.9); Red Blood Count 4.93 M/mm3 (4.6-6.2); White Blood Count 7.5 K/mm3 (4.4-11.0)
[2020-07-23 18:29] LABS: Anion Gap 6 (5-15); BUN 12 mg/dL (7-18); BUN/Creat Ratio 13.4 RATIO (10-20); Calcium,Total 9.1 mg/dL (8.5-10.1); Chloride 105 mmol/L (98-107); Creatinine, Serum 0.89 mg/dL (0.70-1.30); EST Glomerular Filtration Rate 109 mL/min (>60); Est Glom Filt Rate - Afr Amer 131 mL/min (>60); Estimated Creatinine Clearance 133.96 ml/min; Glucose 93 mg/dL (74-106); Potassium 3.6 mmol/L (3.5-5.1); Sodium Level 137 mmol/L (136-145)
[2020-07-23 18:48] LABS: Alcohol, Blood (Medical)-Serum < 3.0 mg/dL
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
[2020-07-23 19:00] LABS: Amphetamine Urine VISTA NEGATIVE (<1000 ng/mL); Barbiturate Urine VISTA NEGATIVE (< 200 ng/mL); Benzodiazepine Urine VISTA NEGATIVE (< 200 ng/mL); Cocaine Urine VISTA NEGATIVE (< 300 ng/mL); Ecstacy Urine VISTA NEGATIVE (< 500 ng/mL); Methadone Urine VISTA NEGATIVE (< 300 ng/mL); PCP Urine VISTA NEGATIVE (< 25 ng/mL); THC Urine VISTA NEGATIVE (< 50 ng/mL); Vista UDS pH Range 5
[2020-07-23 19:41] VITALS: RESP 16
--- NOTE | 2020-07-23 20:20 | CM.ED ---
Addendum entered by Karon Nuñez 07/23/20 20:33: Mom signed paperwork for patient to go to [facility]. Faxed to [facility]. No further Social work Services. Karon JHAVERI Original Note: WALTER Note: SW received phone call from [facility] ([facility]) and they advised patient can be admitted. [facility] will fax paperwork for patient's mother, Annmarie, to sign. SW called Annmarie and she will be in the hospital to sign papers. [facility] requested an [place] and MD signed [place]. MD completed transfer sheet for patient. Patient updated that he was accepted by [facility]. Accepting [facility]STER is Mary Bower and Dr on the unit is Dr. Boone. RN to RN to [phone]. RN and propellant charge loader were notified of patient's admission and transfer to [facility]. Sukhjinder, ED physician office secretary, made arrangements and transport will be here in 10 minutes. [facility] updated about patient's discharge time. Plan: Patient has been accepted to [facility] for psychiatric treatment. Karon JHAVERI
[2020-07-23 20:33] VITALS: RESP 16
[2020-07-23 20:46] VITALS: BP 139/76; PULSE 97; RESP 16; TEMP 36.6; O2SAT 95
== END 2020-07-23 20:39 ==
PROVIDERS: Emergency Provider Emergency Medicine; PCP Family Medicine
DX: R45.851 Suicidal ideations (principal); F32.9 Major depressive disorder, single episode, unspecified; F29 Unspecified psychosis not due to a substance or known physiological condition; J45.909 Unspecified asthma, uncomplicated; Z79.899 Other long term (current) drug therapy
CPT/HCPCS: 80048; 80307; 82077; 85025; 87426; 99285

== ENCOUNTER 2020-10-22 14:57 | Emergency (ER) | payer MEDICARE, MEDICAID, SELFPAY ==
[2020-10-22 14:58] VITALS: BP 155/83; PULSE 95; RESP 20; TEMP 36.6; O2SAT 98; BMI 46.3
--- NOTE | 2020-10-22 15:13 | EX.ED.DYSGE1 ---
HPI History of Present Illness Chief Complaint: Suicidal Informant: patient Onset/Context/Timing Onset: Today Context: Gradual Onset Timing: Continuous Narrative Narrative: Male history of mental illness including bipolar, PTSD, depression, schizophrenia. Says his most recent admit was either July or August. States today feels suicidal when he wants to stab himself in the abdomen and bleed to . He denies any prior attempt nor attempt today. He denies any overdose. Prior similar symptoms: Yes Recent Illness/Hospitalization: No PFSH PFSH Medical History Asthma Back pain Bipolar 1 disorder Knee pain Paranoia Pneumonia PTSD (post-traumatic stress disorder) Schizophrenia Seizures Home Medications lamotrigine 150 mg PO BID 05/12/14 [History Last Taken 07/14/15] omeprazole 40 mg PO DAILY 12/24/15 [History Last Taken Unknown] escitalopram oxalate 20 mg PO DAILY 05/19/18 [History Last Taken Unknown] Allergy/AdvReac Type Severity Reaction Status Date / Time carbamazepine [From Tegretol] Allergy Unknown Verified 10/22/20 15:01 divalproex sodium Allergy Other Verified 10/22/20 15:01 [From Depakote] methylphenidate Allergy Unknown Verified 10/22/20 15:01 [From Concerta] methylphenidate HCl Allergy Unknown Verified 10/22/20 15:01 [From Ritalin] phenobarbital Allergy Hives Verified 10/22/20 15:01 Family History Other Asthma Diabetes Hypertension Kidney disease Surgical History H/O hernia repair Hx of tympanostomy tubes Social History household members: family housing: house Smoking Status: Never smoker alcohol intake: never ROS ROS ED ROS Narrative Denies recent illness. Review of Systems ROS Unobtainable: Denies due to encephalopathy Constitutional Constitutional ED: Denies body ache(s) or frequent falls Eyes Eyes: Denies none or blurry vision ENT ENT ED: Denies none Cardiovascular Cardiovascular: Denies none or chest pain Respiratory/Chest Respiratory/Chest: Denies none, dry cough or hemoptysis Genitourinary Genitourinary ED: Denies none or burning urination Musculoskeletal Musculoskeletal: Denies none, extremity pain or joint swelling Integumentary Denies none, abscess or change in hair Neurologic Neurologic: Denies none or confusion Psychiatric Psychiatric: Reports anxiety, depression, suicidal ideation and suicidal thoughts Endocrine Endocrinology: Reports none; Denies deepening of the voice Hematologic/Lymphatic Hematologic/Lymphatic: Reports none; Denies anemia or easy bleeding Allergic/Immunologic Allergic/Immunologic ED: Reports none; Denies itchy eyes, lip swelling or mouth swelling EXAM Physical Exam Narrative Exam Narrative: 25-year-old male no acute distress. Vital signs stable afebrile. Exam unremarkable. He is awake alert. No signs of toxidrome. No smell of alcohol. There is no trauma to his head or neck or extremities. His lungs are clear. His heart regular rhythm no murmur. Abdomen soft nontender. Moving all 4 extremities. Awake alert. Cooperative. Currently not violent. Not acting out. Const Vital Signs: 10/22/20 14:58 10/22/20 16:00 Temperature 97.9 F Temperature Source Temporal Pulse Rate 95 Respiratory Rate 20 H 16 Blood Pressure 155/83 H Blood Pressure Mean 107 Pulse Ox 98 Oxygen Delivery Method Room Air Positive well nourished, well developed, obese, alert, oriented x3, no apparent distress, no limitations and healthy appearing; Negative for unkempt General Appearance ED: well developed; Negative for unkempt Nutritional Appearance: obese HEENT Reports normocephalic, head/scalp atraumatic and hearing grossly normal bilaterally normocephalic, normal to inspection and atraumatic; Negative for trauma Face and Sinus: normal facial exam Eyes PERRL and EOMs intact bilaterally Chest Wall inspection of chest normal and palpation of chest normal Resp normal respiratory effort, normal air movement, no retractions, no use of accessory muscles and clear to auscultation bilaterally Cardio regular rate, regular rhythm, S1 normal heart sound, S2 normal heart sound, no murmurs, no rub, no gallops, no clicks and no JVD GI normal to inspection, nondistended, normoactive bowel sounds, soft to palpation, non-tender and non-distended Back/Spine no CVA tenderness, normal ROM and normal to inspection Extremity normal to inspection, full ROM, no calf tenderness and no pedal edema Neuro oriented x3, CN's II-XII intact bilaterally, moves all extremities and no focal motor deficits Psych mental status grossly normal, thought process normal, cooperative, affect normal, speech normal and activity/motor behavior normal; Negative for denies suicidal ideation Appearance: Negative for unkempt Skin no rashes or lesions noted and no wounds MDM MDM MDM Narrative Medical decision making narrative: 25-year-old male suicidal. Extensive past psychiatric history. Most recent admission was July or August. He will undergo an ED mental health evaluation. spice room worker will evaluate him also. Repeat exam patient doing well at 5:10 PM. Has been evaluated by the social worker palliative care and is comfortable with him being discharged home after speaking with the patient's mother. Patient is doing well on repeat exam at 5:30 PM. Lab Data Attestation: I reviewed the patient's lab results. Lab results narrative: CBC shows white count 6. Hemoglobin 12.7. Electrolytes unremarkable gap 6. Normal creatinine. Glucose of 76. Tox screen negative. Alcohol negative. Labs: Laboratory Results - last 24 hr 10/22/20 10/22/20 10/22/20 15:05 15:13 15:13 WBC 6.4 RBC 5.06 Hgb 12.7 L Hct 39.7 L MCV 78.5 L MCH 25.1 L MCHC 32.0 RDW Std Deviation 42.0 RDW Coeff of Nano 14.8 H Plt Count 341 MPV 8.9 Immature Gran % (Auto) 0.300 Neut % (Auto) 53.9 Lymph % (Auto) 34.2 [place] % (Auto) 11.6 H Eos % (Auto) 0.0 Baso % (Auto) 0.0 Absolute Neuts (auto) 3.5 Absolute Lymphs (auto) 2.20 Nucleated RBC % 0 Sodium 139 Potassium 3.7 Chloride 106 Carbon Dioxide 27.0 Anion Gap 6 BUN 13 Creatinine 0.78 Estim Creat Clear Calc 146.88 Est GFR (MDRD) Af Amer 154 Est GFR (MDRD) Non-Af 128 BUN/Creatinine Ratio 16.8 Glucose 76 Calcium 8.9 Urine Opiates Screen NEGATIVE Urine Methadone Screen NEGATIVE Ur Barbiturates Screen NEGATIVE Ur Phencyclidine Scrn NEGATIVE Ur Amphetamines Screen NEGATIVE U Methamphetamin-MDMA NEGATIVE U Benzodiazepines Scrn NEGATIVE Urine Cocaine Screen NEGATIVE U Cannabinoids Screen NEGATIVE Ur Drug Screen Comment Ethyl Alcohol 10/22/20 15:13 WBC RBC Hgb Hct MCV MCH MCHC RDW Std Deviation RDW Coeff of Nano Plt Count MPV Immature Gran % (Auto) Neut % (Auto) Lymph % (Auto) [place] % (Auto) Eos % (Auto) Baso % (Auto) Absolute Neuts (auto) Absolute Lymphs (auto) Nucleated RBC % Sodium Potassium Chloride Carbon Dioxide Anion Gap BUN Creatinine Estim Creat Clear Calc Est GFR (MDRD) Af Amer Est GFR (MDRD) Non-Af BUN/Creatinine Ratio Glucose Calcium Urine Opiates Screen Urine Methadone Screen Ur Barbiturates Screen Ur Phencyclidine Scrn Ur Amphetamines Screen U Methamphetamin-MDMA U Benzodiazepines Scrn Urine Cocaine Screen U Cannabinoids Screen Ur Drug Screen Comment Ethyl Alcohol 5.0 Discharge Plan Triage Chief Complaint: Suicidal ED Provider: Vazquez Miller Dx/Rx/DC Orders Clinical Impression: Depression with suicidal ideation Instructions: ED Bipolar Disorder, ED Depression Prescriptions: No Action lamotrigine 150 MG tablet 150 mg PO BID RF: 0 omeprazole 40 MG capsule 40 mg PO DAILY RF: 0 escitalopram oxalate 10 MG tablet 20 mg PO DAILY RF: 0 Primary Care Provider: Turner Quick Referrals: Turner Quick MD [Primary Care Provider] - As Needed Activity Restrictions/Additional Instructions: Follow-up with your psych service team leader. Make sure you are taking your medications. Return if feeling worse. Disposition Disposition: Psychiatric Hospital or Unit
[2020-10-22 15:38] LABS: Absolute Neutrophil Count 3.5 X10^3/uL (2.0-7.7); Hematocrit 39.7 % (40-54); Hemoglobin 12.7 g/dL (13.0-16.5); Lymphocyte % 34.2 % (19-41); Mean Corpuscular Hgb 25.1 pg (27.0-32.0); Mean Corpuscular Volume 78.5 fL (80-94); Mean Platelet Vol. 8.9 fl (6.2-12.0); Monocyte# 0.75 X10^3/uL; Monocyte% 11.6 % (0-10); NRBC Flagged by Analyzer 0 % (0-5); Neutrophil # 3.47 X10^3/uL (2.7-7.7); Neutrophil % 53.9 % (47-70); Platelet Count 341 K/mm3 (150-450); RBC Distribution Width CV 14.8 % (11.6-14.6); Red Blood Count 5.06 M/mm3 (4.6-6.2); White Blood Count 6.4 K/mm3 (4.4-11.0)
[2020-10-22 15:51] LABS: Anion Gap 6 (5-15); BUN 13 mg/dL (7-18); BUN/Creat Ratio 16.8 RATIO (10-20); Calcium,Total 8.9 mg/dL (8.5-10.1); Chloride 106 mmol/L (98-107); Creatinine, Serum 0.78 mg/dL (0.70-1.30); EST Glomerular Filtration Rate 128 mL/min (>60); Est Glom Filt Rate - Afr Amer 154 mL/min (>60); Estimated Creatinine Clearance 146.88 ml/min; Glucose 76 mg/dL (74-106); Potassium 3.7 mmol/L (3.5-5.1); Sodium Level 139 mmol/L (136-145)
[2020-10-22 16:00] VITALS: RESP 16
[2020-10-22] MEDS: Acetaminophen 500 MG Tablet 1000 MG PO (16:01)
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
[2020-10-22 16:22] LABS: Amphetamine Urine VISTA NEGATIVE (<1000 ng/mL); Barbiturate Urine VISTA NEGATIVE (< 200 ng/mL); Benzodiazepine Urine VISTA NEGATIVE (< 200 ng/mL); Cocaine Urine VISTA NEGATIVE (< 300 ng/mL); Ecstacy Urine VISTA NEGATIVE (< 500 ng/mL); Methadone Urine VISTA NEGATIVE (< 300 ng/mL); PCP Urine VISTA NEGATIVE (< 25 ng/mL); THC Urine VISTA NEGATIVE (< 50 ng/mL); Vista UDS pH Range 5
[2020-10-22 17:52] VITALS: RESP 16
== END 2020-10-22 17:55 | disposition home or self-care (01) ==
PROVIDERS: Emergency Provider Emergency Medicine; PCP Family Medicine
DX: R45.851 Suicidal ideations (principal); F20.9 Schizophrenia, unspecified; F31.9 Bipolar disorder, unspecified; F43.10 Post-traumatic stress disorder, unspecified; J45.909 Unspecified asthma, uncomplicated; Z79.899 Other long term (current) drug therapy
CPT/HCPCS: 80048; 80307; 82077; 85025; 87426; 99284

== ENCOUNTER 2020-11-19 15:48 | Emergency (ER) | payer MEDICARE, MEDICAID, SELFPAY ==
[2020-11-19 15:49] VITALS: BP 152/77; PULSE 93; RESP 18; TEMP 36.9; O2SAT 96; BMI 46.3
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
--- NOTE | 2020-11-19 16:20 | CM.ED ---
Collaboration with physician, patient does not require sitter protocol at this time. Staff cb. Gwendolyn Griffin, SHEET ROCK TAPER, OUTSOLE FLEXER
[2020-11-19 17:03] LABS: Bacteria 0 SEEN /hpf (None Seen); Mucous, Urine 0 SEEN /hpf (<or=2+); Red Blood Cells-Urine 0 SEEN /hpf (0-5); Squamous Epithelial Cells - UA 0 SEEN /hpf (0-5)
[2020-11-19 17:05] LABS: Color, Urine Yellow (Yellow); Glucose, Dipstick Normal (Normal); Ketone-Dipstick 5 mg/dl (Negative); Leukocyte Esterase-Dipstick 25 /ul (Negative); Nitrite-Dipstick Negative (Negative); Occult Blood-Urine Negative /ul (Negative); Protein-Dipstick 15 mg/dl (Negative); Urine Bilirubin Dipstick Negative (Negative); Urine Clarity Clear (Clear); Urine Urobilinogen 1 mg/dl (Normal)
[2020-11-19 17:20] LABS: Absolute Lymphocyte Count 2.43 X10^3/uL (0.83-4.51); Absolute Neutrophil Count 4.9 X10^3/uL (2.0-7.7); Basophil# 0.01 X10^3/uL; Basophil% 0.1 % (0-1); Hematocrit 38.8 % (40-54); Hemoglobin 12.4 g/dL (13.0-16.5); Lymphocyte # 2.43 X10^3/ul (0.83-4.51); Lymphocyte % 30.1 % (19-41); Mean Corpuscular Volume 78.2 fL (80-94); Mean Platelet Vol. 9.1 fl (6.2-12.0); Monocyte# 0.68 X10^3/uL; Monocyte% 8.4 % (0-10); NRBC Flagged by Analyzer 0 % (0-5); Neutrophil # 4.93 X10^3/uL (2.7-7.7); Platelet Count 346 K/mm3 (150-450); RBC Distribution Width CV 14.9 % (11.6-14.6); RBC Distribution Width SD 41.9 fl (35.1-43.9); Red Blood Count 4.96 M/mm3 (4.6-6.2); White Blood Count 8.1 K/mm3 (4.4-11.0)
[2020-11-19 17:29] LABS: Anion Gap 5 (5-15); BUN 12 mg/dL (7-18); Calcium,Total 9.3 mg/dL (8.5-10.1); Chloride 105 mmol/L (98-107); Creatinine, Serum 0.75 mg/dL (0.70-1.30); EST Glomerular Filtration Rate 133 mL/min (>60); Est Glom Filt Rate - Afr Amer 161 mL/min (>60); Estimated Creatinine Clearance 152.76 ml/min; Glucose 88 mg/dL (74-106); Sodium Level 137 mmol/L (136-145)
--- NOTE | 2020-11-19 17:29 | CM.ED ---
SOCIAL WORK Call to patient's mother who is legal guardian. Mother in agreement with hospitalization. Gwendolyn Griffin, STAGE MANAGER, SAP TRAINER
[2020-11-19 17:32] LABS: White Blood Cells 5-10 SEEN /hpf (0-5)
[2020-11-19 18:03] LABS: Amphetamine Urine VISTA NEGATIVE (<1000 ng/mL); Barbiturate Urine VISTA NEGATIVE (< 200 ng/mL); Benzodiazepine Urine VISTA NEGATIVE (< 200 ng/mL); Cocaine Urine VISTA NEGATIVE (< 300 ng/mL); Ecstacy Urine VISTA POSITIVE (< 500 ng/mL); Methadone Urine VISTA NEGATIVE (< 300 ng/mL); PCP Urine VISTA NEGATIVE (< 25 ng/mL); THC Urine VISTA NEGATIVE (< 50 ng/mL); Vista UDS pH Range 5
[2020-11-19 18:09] LABS: Alcohol, Blood (Medical)-Serum < 3.0 mg/dL
--- NOTE | 2020-11-19 18:29 | CM.ED ---
SOCIAL WORK Referral faxed and called to Amie Waterman. Pending review at this time. Gwendolyn Griffin, CERTIFIED MEDICAL DOSIMETRIST, [place]ON
--- NOTE | 2020-11-19 19:06 | EDS_ITS ---
HPI History of Present Illness Chief Complaint: Suicidal Detail of Chief Complaint: Suicidal and homicidal ideation Informant: patient Narrative Narrative: Patient presents to the emergency department stating that he is having suicidal ideations and homicidal ideations because demonic voices are telling him to do this. Patient states that he got home from a group type meeting at the counseling center and started having these feelings and these voices in his head. Patient states that he took a knife and try to self-harm by cutting his right arm but states that you cannot really tell where the cuts are. Patient states that the voices are telling him to kill his mother. He is never attempted to harm his mother before. Patient does have history of bipolar, depression, schizophrenia, and anxiety. Patient denies any illicit drug use. PFSH PFS Medical History Asthma Back pain Bipolar 1 disorder Knee pain Paranoia Pneumonia PTSD (post-traumatic stress disorder) Schizophrenia Seizures Home Medications lamotrigine 150 mg PO BID 05/12/14 [History Last Taken 07/14/15] omeprazole 40 mg PO DAILY 12/24/15 [History Last Taken Unknown] escitalopram oxalate 20 mg PO DAILY 05/19/18 [History Last Taken Unknown] Allergy/AdvReac Type Severity Reaction Status Date / Time carbamazepine [From Tegretol] Allergy Unknown Verified 11/19/20 15:51 divalproex sodium Allergy Other Verified 11/19/20 15:51 [From Depakote] methylphenidate Allergy Unknown Verified 11/19/20 15:51 [From Concerta] methylphenidate HCl Allergy Unknown Verified 11/19/20 15:51 [From Ritalin] phenobarbital Allergy Hives Verified 11/19/20 15:51 Family History Other Asthma Diabetes Hypertension Kidney disease Surgical History H/O hernia repair Hx of tympanostomy tubes Social History household members: family housing: house Smoking Status: Never smoker alcohol intake: never ROS ROS ED Constitutional Constitutional ED: Reports systems reviewed and no addt'l complaints, except as documented; Denies body ache(s), change in weight or chills Eyes Eyes: Denies acute decrease in peripheral vision, change in vision, double vision or loss of vision ENT ENT ED: Reports none; Denies ear pain, lip swelling, loss taste/smell, neck pain, otalgia or sore throat Cardiovascular Cardiovascular: Reports none; Denies abdominal pain, chest pain with activity, leg edema, lightheadedness, palpitations, rapid heart rate or syncope Respiratory/Chest Respiratory/Chest: Reports none; Denies change in mental status, dry cough, dyspnea, hemoptysis, shortness of breath at rest or shortness of breath with exertion Gastrointestinal Gastrointestinal: Reports none; Denies abdominal pain, change in stool character, diarrhea, hematemesis, hematochezia, melena, rectal bleeding or vomi ting Genitourinary Genitourinary ED: Reports none; Denies abdominal discomfort, anuria, dysuria, genital pain or polyuria Musculoskeletal Musculoskeletal: Reports none; Denies arthralgias, back pain, difficulty walking, extremity pain, muscle weakness or myalgias Integumentary Reports none; Denies abscess or rash Neurologic Neurologic: Reports none; Denies abnormal gait, confusion, focal weakness, frequent falls, headache(s), loss of vision, numbness, paresthesias, radicular pain, vertigo or weakness Psychiatric Psychiatric: Reports systems reviewed and no addt'l complaints, except as documented, none, auditory hallucinations, depression, hallucinations, homicidal ideation and suicidal ideation; Denies behavioral changes, confusion, difficulty concentrating, tactile hallucinations or visual hallucinations Endocrine Endocrinology: Denies none, cold intolerance, excessive sweating, fatigue or heat intolerance Hematologic/Lymphatic Hematologic/Lymphatic: Reports none; Denies anemia, easy bleeding or easy bruising Allergic/Immunologic Allergic/Immunologic ED: Denies as per HPI, none, lip swelling, mouth swelling, throat swelling, tongue swelling or hives EXAM Physical Exam Const Vital Signs: 11/19/20 15:49 Temperature 98.4 F Temperature Source Temporal Pulse Rate 93 Respiratory Rate 18 Blood Pressure 152/77 H Blood Pressure Mean 102 Pulse Ox 96 Oxygen Delivery Method Room Air Positive well nourished and well developed General Appearance ED: well developed and NAD HEENT Reports TM's clear and moist mucous membranes normocephalic and atraumatic; Negative for trauma or tenderness Tympanic Membrane ED: Yes TM's clear Eyes PERRL and EOMs intact bilaterally General Eye ED: Negative for pale conjunctiva or scleral icterus Neck no lymphadenopathy, supple and no JVD General: Negative for tenderness Chest Wall inspection of chest normal and palpation of chest normal Chest: Negative for tenderness Resp normal respiratory effort and clear to auscultation bilaterally Effort and Inspection: Negative for respiratory distress or pain with movement Auscultation: Negative for rhonchi, wheezes or diminished lung sounds Cardio regular rate, regular rhythm, S1 normal heart sound, S2 normal heart sound and no murmurs Peripheral Pulses: pulses 2+ throughout GI normal to inspection, nondistended, normoactive bowel sounds, soft to palpation, non-tender, non-distended and no masses Back/Spine no CVA tenderness and no thoracic nor lumbar tenderness Extremity normal to inspection General Extremety ED: Negative for edema General Extremity: Negative for edema Neuro oriented x3, CN's II-XII intact bilaterally, no sensory deficits noted and gait normal Sensorium / Orientation: awake, alert, oriented to person, oriented to place and oriented to time Motor Exam: strength 5/5 throughout and strength abnormal Psych mental status grossly normal; Negative for denies hallucinations, denies homicidal ideation or denies suicidal ideation Mood & Affect: depressed, apathetic and blunted affect Thought Content: suicidality, homicidality and hallucination(s) Skin no rashes or lesions noted and no wounds MDM MDM MDM Narrative Medical decision making narrative: Patient was evaluated by social work therapist and arrangements were made for patient to be transferred to psychiatric facility for definitive care. Patient will be going to [facility]. Lab Data Attestation: I reviewed the patient's lab results. Labs: Laboratory Results - last 24 hr 11/19/20 11/19/20 11/19/20 16:20 16:20 16:20 WBC 8.1 RBC 4.96 Hgb 12.4 L Hct 38.8 L MCV 78.2 L MCH 25.0 L MCHC 32.0 RDW Std Deviation 41.9 RDW Coeff of Nano 14.9 H Plt Count 346 MPV 9.1 Immature Gran % (Auto) 0.400 Neut % (Auto) 61.0 Lymph % (Auto) 30.1 [place] % (Auto) 8.4 Eos % (Auto) 0.0 Baso % (Auto) 0.1 Absolute Neuts (auto) 4.9 Absolute Lymphs (auto) 2.43 Nucleated RBC % 0 Sodium 137 Potassium 4.0 Chloride 105 Carbon Dioxide 27.0 Anion Gap 5 BUN 12 Creatinine 0.75 Estim Creat Clear Calc 152.76 Est GFR (MDRD) Af Amer 161 Est GFR (MDRD) Non-Af 133 BUN/Creatinine Ratio 16.0 Glucose 88 Calcium 9.3 Urine Color Urine Clarity Urine pH Ur Specific [place] Urine Protein Urine Glucose (UA) Urine Ketones Urine Occult Blood Urine Nitrite Urine Bilirubin Urine Urobilinogen Ur Leukocyte Esterase Urine RBC Urine WBC Ur Squamous Epith Cells Urine Bacteria Urine Mucus Urine Opiates Screen Urine Methadone Screen Ur Barbiturates Screen Ur Phencyclidine Scrn Ur Amphetamines Screen U Methamphetamin-MDMA U Benzodiazepines Scrn Urine Cocaine Screen U Cannabinoids Screen Ur Drug Screen Comment Ethyl Alcohol < 3.0 11/19/20 11/19/20 17:00 17:00 WBC RBC Hgb Hct MCV MCH MCHC RDW Std Deviation RDW Coeff of Nano Plt Count MPV Immature Gran % (Auto) Neut % (Auto) Lymph % (Auto) [place] % (Auto) Eos % (Auto) Baso % (Auto) Absolute Neuts (auto) Absolute Lymphs (auto) Nucleated RBC % Sodium Potassium Chloride Carbon Dioxide Anion Gap BUN Creatinine Estim Creat Clear Calc Est GFR (MDRD) Af Amer Est GFR (MDRD) Non-Af BUN/Creatinine Ratio Glucose Calcium Urine Color Yellow Urine Clarity Clear Urine pH 6.0 Ur Specific [place] 1.020 Urine Protein 15 H Urine Glucose (UA) Normal Urine Ketones 5 H Urine Occult Blood Negative Urine Nitrite Negative Urine Bilirubin Negative Urine Urobilinogen 1 H Ur Leukocyte Esterase 25 H Urine RBC 0 SEEN Urine WBC 5-10 SEEN Ur Squamous Epith Cells 0 SEEN Urine Bacteria 0 SEEN Urine Mucus 0 SEEN Urine Opiates Screen NEGATIVE Urine Methadone Screen NEGATIVE Ur Barbiturates Screen NEGATIVE Ur Phencyclidine Scrn NEGATIVE Ur Amphetamines Screen NEGATIVE U Methamphetamin-MDMA POSITIVE H U Benzodiazepines Scrn NEGATIVE Urine Cocaine Screen NEGATIVE U Cannabinoids Screen NEGATIVE Ur Drug Screen Comment Ethyl Alcohol Discharge Plan Triage Chief Complaint: Suicidal ED Provider: Marni Mondragon Dx/Rx/DC Orders Clinical Impression: Psychosis, Depression, Suicidal ideation, Homicidal ideation Prescriptions: No Action lamotrigine 150 MG tablet 150 mg PO BID RF: 0 omeprazole 40 MG capsule 40 mg PO DAILY RF: 0 escitalopram oxalate 10 MG tablet 20 mg PO DAILY RF: 0 Primary Care Provider: Turner Quick Referrals: Turner Quick MD [Primary Care Provider] - Disposition Disposition: Psychiatric Hospital or Unit Discharge Location: [facility]
--- NOTE | 2020-11-19 19:15 | CM.ED ---
SOCIAL WORK Call to [facility] to verify referral received, spoke with Abby. Per Abby, referral has been received, however, not reviewed at this time as we have been really backed up. Call to [facility], no beds available. Call to [place] who reports beds available. Referral faxed at this time. Gwendolyn Griffin, OPERATION SHIFT SUPERVISOR, [employer]
--- NOTE | 2020-11-19 20:02 | CM.ED ---
SOCIAL WORK Patient accepted to [facility] by Dr. Monahan. Nurse to call report to [phone]. Call to [facility] for transport, ETA 6 hours (arrive 2am). Patient and staff updated. Call to patient's mother/legal guardian to update. Gwendolyn Griffin MSW, [employer] DEVELOPER
[2020-11-19 21:03] VITALS: BP 142/83; PULSE 93; RESP 18; O2SAT 95
[2020-11-19 23:37] VITALS: BP 109/49; PULSE 80; RESP 16; TEMP 36.2; O2SAT 92
[2020-11-20 02:01] VITALS: BP 124/79; PULSE 80; RESP 16; TEMP 36.6; O2SAT 98
== END 2020-11-20 02:02 ==
PROVIDERS: Emergency Provider Emergency Medicine; PCP Family Medicine
DX: R45.851 Suicidal ideations (principal); F20.9 Schizophrenia, unspecified; F31.9 Bipolar disorder, unspecified; F43.10 Post-traumatic stress disorder, unspecified; J45.909 Unspecified asthma, uncomplicated; R45.850 Homicidal ideations; Z79.899 Other long term (current) drug therapy
CPT/HCPCS: 80048; 80307; 81001; 82077; 85025; 87426; 99285

== ENCOUNTER 2021-01-15 08:40 | Emergency (ER) | payer MEDICARE, MEDICAID, SELFPAY ==
[2021-01-15 08:41] VITALS: BP 132/79; PULSE 87; RESP 18; TEMP 36.3; O2SAT 96; BMI 44.4
--- NOTE | 2021-01-15 09:07 | US_ITS ---
STUDY: ABDOMINAL ULTRASOUND - RIGHT UPPER QUADRANT REASON FOR VISIT: Male, 25 years old . Right upper quadrant pain. TECHNIQUE: Ultrasound evaluation of the right upper quadrant was performed with real-time and static triana-scale imaging. TECHNICAL QUALITY: Adequate. COMPARISON: None. FINDINGS: Liver: The liver is enlarged and measures 20.5 cm. There is increased echogenicity consistent with fatty infiltration. The bile ducts are within normal limits. There is hepatic color flow. The direction of portal flow is hepatopetal. There is no demonstrated mass lesion. Gallbladder: Normal distended gallbladder. The gallbladder wall measures 2 mm. There is a negative sonographic Fermin''s sign. There is no pericholecystic fluid. There is a solitary echogenic gallstone within the gallbladder. This measures 1.5 cm x 1.3 cm x 1.3 cm. Common Bile Duct (C.B.D.): The common bile duct measures 4 mm. Pancreas: Normal size of the head, body and tail of the pancreas. There is normal echogenicity of the pancreas. There is no demonstrated pancreatic mass or cyst. Right Kidney: Normal size of the right kidney. The right kidney measures 10.7 cm x 6.3 cm x 5.2 cm. Normal renal cortex. The right cortex measures 1 cm. 2 renal cysts are seen. The larger measures 1.7 cm x 1.7 cm x 1.5 cm. There is no right hydronephrosis. US/Gallbladder IMPRESSION: Hepatomegaly and diffuse fatty infiltration of the liver. Solitary gallstone. 2 right renal cysts. Electronically Signed: Slim Medina MD at 10:25 EST , Service support ,
--- NOTE | 2021-01-15 09:15 | ED.VIS.GI ---
HPI HPI - GI History of Present Illness Chief Complaint: Abd Pain Informant: patient and parent Narrative Narrative: Patient is 25-year-old male present with worsening abdominal pain. Patient was previously diagnosed with gallstones and is scheduled to have a cholecystectomy with Dr. Leon on January 29. He notes that the pain worsened last night after eating pizza. They called the office who recommended he come to the ER to be evaluated the pain is not under control. He tried taking Tylenol and ibuprofen with no relief. He has some associated nausea. Denies any fever. Feels he has been slightly constipated lately but that is chronic. He has been passing gas regularly. Does report some dysuria. Denies any chest pain or difficulty breathing. Notes that he has been having issues with abdominal pain for the past few weeks. Did not think that it is any different in his characteristics of his pain than normal. PFSH PFS Medical History Asthma Back pain Bipolar 1 disorder Knee pain Paranoia Pneumonia PTSD (post-traumatic stress disorder) Schizophrenia Seizures Home Medications omeprazole 40 mg PO DAILY 12/24/15 [History Last Taken Unknown] escitalopram oxalate 10 mg PO DAILY 05/19/18 [History Last Taken Unknown] lamotrigine 200 mg PO DAILY 11/19/20 [History Last Taken Unknown] mirtazapine 15 mg PO QHS 11/19/20 [History Last Taken Unknown] paliperidone palmitate [Invega Sustenna] mg IM QMONTH 11/19/20 [History Last Taken Unknown] Allergy/AdvReac Type Severity Reaction Status Date / Time carbamazepine [From Tegretol] Allergy Unknown Verified 01/15/21 08:41 divalproex sodium Allergy Other Verified 01/15/21 08:41 [From Depakote] methylphenidate Allergy Unknown Verified 01/15/21 08:41 [From Concerta] methylphenidate HCl Allergy Unknown Verified 01/15/21 08:41 [From Ritalin] phenobarbital Allergy Hives Verified 01/15/21 08:41 Family History Other Asthma Diabetes Hypertension Kidney disease Surgical History H/O hernia repair Hx of tympanostomy tubes Social History household members: family housing: house Smoking Status: Never smoker alcohol intake: never ROS ROS ED Constitutional Constitutional ED: Denies chills or fever(s) ENT ENT ED: Denies rhinorrhea or sore throat Cardiovascular Cardiovascular: Denies chest pain or palpitations Respiratory/Chest Respiratory/Chest: Denies cough or dyspnea Gastrointestinal Gastrointestinal: Reports abdominal pain, constipation and nausea; Denies diarrhea or vomiting Genitourinary Genitourinary ED: Reports dysuria; Denies hematuria or urinary frequency Musculoskeletal Musculoskeletal: Reports back pain; Denies arthralgias or myalgias Integumentary Denies rash Neurologic Neurologic: Denies headache(s) or weakness Psychiatric Psychiatric: Denies anxiety or depression EXAM Physical Exam Const Vital Signs: 01/15/21 08:41 01/15/21 11:25 01/15/21 11:45 Temperature 97.3 F L Temperature Source Temporal Pulse Rate 87 89 74 Respiratory Rate 16 Blood Pressure 132/79 H 111/62 Blood Pressure Mean 96 78 Pulse Ox 96 97 96 Oxygen Delivery Method Room Air Room Air 01/15/21 12:38 Temperature Temperature Source Pulse Rate 68 Respiratory Rate Blood Pressure 123/78 H Blood Pressure Mean Pulse Ox Oxygen Delivery Method Positive well nourished, well developed and obese General Appearance ED: well developed Nutritional Appearance: obese HEENT normocephalic and atraumatic Eyes PERRL Neck no lymphadenopathy and supple Resp normal respiratory effort and clear to auscultation bilaterally Cardio regular rate, regular rhythm and no murmurs GI non-tender and non-distended GI Narrative: Patient points to his right upper quadrant/right flank is his area of pain. Not reproducible on exam Inspection: Negative for abdominal distention Auscultation: normoactive bowel sounds Palpation: soft; Negative for guarding or rigid Back/Spine no CVA tenderness Extremity full ROM General Extremety ED: Negative for edema or tenderness General Extremity: Negative for edema Neuro moves all extremities Sensorium / Orientation: alert, oriented to person, oriented to place and oriented to time Psych mental status grossly normal and thought process normal Skin Rashes: no rashes MDM MDM MDM Narrative Medical decision making narrative: Patient evaluated for recurrent right upper quadrant/right flank pain. He has known gallstones and I suspect he is having biliary colic. He does not have a leukocytosis or transaminitis. I do not think he has acute cholecystitis or choledocholithiasis at this time. Repeat ultrasound does not show any acute process. Urinalysis does not show any signs of infection and is not consistent with pyelonephritis or kidney stone. No hydronephrosis is noted on the ultrasound either. He is given morphine and then Toradol in the ER. Patient does have improvement of his symptoms. I suspect his diet is what is triggering the worsening pain considering he ate pizza last night. Case is discussed with his surgeon, Dr. Leon. He is in agreement the patient does not require emergent surgery. He will attempt to move up the patient's outpatient surgery at his schedule allows. He would like to defer any home opioid pain medication. Patient and mother are agreeable with this plan of care. They are counseled on low-fat diet to help with his biliary colic. Patient is counseled on signs and symptoms requiring return to the emergency room. Patient verbalizes agreement and understand this plan. Patient discharged home in stable and improved condition. Lab Data Labs: Laboratory Results - last 24 hr 01/15/21 01/15/21 01/15/21 09:14 09:14 09:25 WBC 5.5 RBC 4.97 Hgb 12.4 L Hct 38.8 L MCV 78.1 L MCH 24.9 L MCHC 32.0 RDW Std Deviation 41.9 RDW Coeff of Nano 15.0 H Plt Count 294 MPV 8.8 Immature Gran % (Auto) 0.200 Neut % (Auto) 53.5 Lymph % (Auto) 39.1 Dare % (Auto) 7.2 Eos % (Auto) 0.0 Baso % (Auto) 0.0 Absolute Neuts (auto) 3.0 Absolute Lymphs (auto) 2.16 Nucleated RBC % 0 Sodium 137 Potassium 4.4 Chloride 104 Carbon Dioxide 26.0 Anion Gap 7 BUN 15 Creatinine 0.77 Estim Creat Clear Calc 153.48 Est GFR (MDRD) Af Amer 155 Est GFR (MDRD) Non-Af 128 BUN/Creatinine Ratio 19.4 Glucose 95 Calcium 9.1 Total Bilirubin 0.30 Direct Bilirubin 0.08 AST 18 ALT 35 Alkaline Phosphatase 94 Total Protein 7.3 Albumin 3.5 Globulin 3.8 Lipase 57 L Urine Color Yellow Urine Clarity Sl. Cloudy Urine pH 6.0 Ur Specific [place] 1.025 Urine Protein Negative Urine Glucose (UA) Normal Urine Ketones Negative Urine Occult Blood Negative Urine Nitrite Negative Urine Bilirubin Negative Urine Urobilinogen Normal Ur Leukocyte Esterase Negative Urine RBC 0 SEEN Urine WBC 0 SEEN Ur Squamous Epith Cells 0-5 SEEN Urine Bacteria 0 SEEN Urine Mucus 1+ Radiography Diagnostic Testing: Clinical Impression(s) from Imaging Studies Gallbladder Ultrasound 01/15/21 09:07 IMPRESSION: Hepatomegaly and diffuse fatty infiltration of the liver. Solitary gallstone. 2 right renal cysts. Electronically Signed: Slim Medina MD at 10:25 EST , Service support , Discharge Plan Triage Chief Complaint: Abd Pain ED Provider: Mitzi Carl Dx/Rx/DC Orders Clinical Impression: Biliary colic, Gall stone Instructions: Low-Fat Cooking Tips, ED Gallstones with Biliary Colic Prescriptions: No Action omeprazole 40 MG capsule 40 mg PO DAILY RF: 0 escitalopram oxalate 10 MG tablet 10 mg PO DAILY RF: 0 lamotrigine 200 mg tablet 200 mg PO DAILY RF: 0 mirtazapine 15 mg tablet 15 mg PO QHS RF: 0 Invega Sustenna 234 mg/1.5 mL syringe IM QMONTH RF: 0 Primary Care Provider: Turner Quick Referrals: Turner Quick MD [Primary Care Provider] - Activity Restrictions/Additional Instructions: Please follow up with your surgeon for further treatment. Disposition Disposition: Home, Self Care Discharge Date/Time: 01/15/21 12:38
[2021-01-15 09:23] LABS: Absolute Lymphocyte Count 2.16 X10^3/uL (0.83-4.51); Hematocrit 38.8 % (40-54); Hemoglobin 12.4 g/dL (13.0-16.5); Lymphocyte # 2.16 X10^3/ul (0.83-4.51); Lymphocyte % 39.1 % (19-41); Mean Corpuscular Hgb 24.9 pg (27.0-32.0); Mean Corpuscular Volume 78.1 fL (80-94); Mean Platelet Vol. 8.8 fl (6.2-12.0); Monocyte% 7.2 % (0-10); NRBC Flagged by Analyzer 0 % (0-5); Neutrophil # 2.96 X10^3/uL (2.7-7.7); Neutrophil % 53.5 % (47-70); Platelet Count 294 K/mm3 (150-450); RBC Distribution Width SD 41.9 fl (35.1-43.9); Red Blood Count 4.97 M/mm3 (4.6-6.2); White Blood Count 5.5 K/mm3 (4.4-11.0)
[2021-01-15 09:32] LABS: Bacteria 0 SEEN /hpf (None Seen); Red Blood Cells-Urine 0 SEEN /hpf (0-5); White Blood Cells 0 SEEN /hpf (0-5)
[2021-01-15] MEDS: 0.9% Normal Saline 1,000 ML 1000 ML IV (09:32)
[2021-01-15] MEDS: Morphine 4 MG/ML Syringe IV ×2 (09:32→12:11)
[2021-01-15 09:41] LABS: AST(SGOT) 18 U/L (15-37); Alanine Aminotransfer ALT/SGPT 35 U/L (16-61); Albumin, Serum 3.5 g/dL (3.2-5.0); Alkaline Phosphatase 94 U/L (45-117); Anion Gap 7 (5-15); BUN 15 mg/dL (7-18); BUN/Creat Ratio 19.4 RATIO (10-20); Bilirubin, Direct 0.08 mg/dL (0.00-0.30); Calcium,Total 9.1 mg/dL (8.5-10.1); Chloride 104 mmol/L (98-107); Creatinine, Serum 0.77 mg/dL (0.70-1.30); EST Glomerular Filtration Rate 128 mL/min (>60); Est Glom Filt Rate - Afr Amer 155 mL/min (>60); Estimated Creatinine Clearance 153.48 ml/min; Globulin 3.8 g/dL (2.2-4.2); Glucose 95 mg/dL (74-106); Lipase 57 U/L (73-393); Potassium 4.4 mmol/L (3.5-5.1); Protein, Total 7.3 g/dL (6.4-8.2); Sodium Level 137 mmol/L (136-145)
[2021-01-15 09:49] LABS: Color, Urine Yellow (Yellow); Glucose, Dipstick Normal (Normal); Ketone-Dipstick Negative (Negative); Leukocyte Esterase-Dipstick Negative /ul (Negative); Nitrite-Dipstick Negative (Negative); Occult Blood-Urine Negative /ul (Negative); Protein-Dipstick Negative (Negative); Specific Gravity, Urine 1.025 (1.002-1.030); Urine Bilirubin Dipstick Negative (Negative); Urine Clarity Sl. Cloudy (Clear); Urine Urobilinogen Normal (Normal)
[2021-01-15 09:59] LABS: Squamous Epithelial Cells - UA 0-5 SEEN /hpf (0-5)
[2021-01-15 10:07] LABS: Mucous, Urine 1+ /hpf (<or=2+)
[2021-01-15 11:25] VITALS: PULSE 89; RESP 18; O2SAT 97
[2021-01-15 11:45] VITALS: BP 111/62; PULSE 74; RESP 16; O2SAT 96
[2021-01-15] MEDS: Ketorolac 15 MG/ML Vial IV (12:11)
[2021-01-15 12:38] VITALS: BP 123/78; PULSE 68
== END 2021-01-15 12:38 | disposition home or self-care (01) ==
PROVIDERS: Emergency Provider Emergency Medicine; PCP Family Medicine
DX: K80.70 Calculus of gallbladder and bile duct without cholecystitis without obstruction (principal); F20.9 Schizophrenia, unspecified; F31.9 Bipolar disorder, unspecified; F43.10 Post-traumatic stress disorder, unspecified; K76.0 Fatty (change of) liver, not elsewhere classified; N28.1 Cyst of kidney, acquired; J45.909 Unspecified asthma, uncomplicated
CPT/HCPCS: 76705; 80048; 80076; 81001; 83690; 85025; 96361; 96374; 96375; 96376; 99284; A4216

== ENCOUNTER 2021-08-17 21:56 | Emergency (ER) | payer MEDICARE, MEDICAID, SELFPAY ==
[2021-08-17 21:57] VITALS: BP 130/85; PULSE 86; RESP 16; TEMP 36.1; O2SAT 97; BMI 45.3
--- NOTE | 2021-08-17 22:13 | CT_ITS ---
STUDY: CT ABDOMEN AND PELVIS WITH CONTRAST REASON FOR EXAM: Male, 25 years old. left sided abd pain -- IV PO Contrast RADIATION DOSAGE (If Supplied By Facility): CTDIvol = ( 19.44 ) mGy, DLP = ( 2265.49 ) mGycm TECHNIQUE: Transaxial images were obtained from the dome of the diaphragm to the symphysis pubis without oral contrast. Oral and amp; IV Gastrografin and amp; 100mL Isovue-370 was administered. Sagittal and coronal images were reconstructed. Individualized dose optimization techniques were used for this CT. COMPARISON: None. FINDINGS: The visualized lung bases are unremarkable. The visualized portions of the heart are within normal limits. Normal liver. There are surgical clips in the gallbladder fossa consistent with a prior cholecystectomy. Normal spleen. Normal pancreas. Normal bilateral adrenal glands. Bilateral renal cysts the largest measures 2.5 cm. Normal visualized stomach. Normal small intestine. Normal colon. The appendix is visualized and appears normal. Normal abdominal aorta. Normal inferior vena cava. Normal retroperitoneum. Normal urinary bladder. Normal abdominal wall. Normal osseous structures. CT/Abdomen/Pelvis WITH Contrast IMPRESSION: Bilateral renal cysts the largest measures 2.5 cm. Electronically Signed: Teri Lacey MD at 0:35 EDT ,
--- NOTE | 2021-08-17 22:14 | EDS_ITS ---
HPI History of Present Illness Chief Complaint: Abd Pain Informant: patient Onset/Context/Timing Onset: Yesterday Context: Gradual Onset Timing: Waxes and wanes Current Severity: Moderate Maximum Severity: Moderate Narrative Narrative: Patient presents secondary to left sided mid abdominal pain. He reports onset yesterday has been waxing and waning. Has had some mild nausea but no vomiting. He states pain is slightly worse when he eats. No change in bowel habits. Last bowel movement was this morning and normal. No fever or chills. He denies urinary symptoms. 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 Pneumonia Psychiatric pseudoseizure PTSD (post-traumatic stress disorder) Schizophrenia Seizures Home Medications omeprazole 40 mg capsule,delayed release 40 mg PO DAILY 12/24/15 [History Last Taken Unknown] lamotrigine 200 mg tablet 200 mg PO BID 11/19/20 [History Last Taken Unknown] mirtazapine 15 mg tablet 15 mg PO QHS 11/19/20 [History Last Taken Unknown] olanzapine 5 mg tablet 5 mg PO DAILY 08/17/21 [History Last Taken Unknown] trazodone 50 mg tablet 50 mg PO QHS 08/17/21 [History Last Taken Unknown] dicyclomine 20 mg tablet 20 mg PO TID PRN abdominal cramping #14 tabs 08/18/21 [Rx Last Taken Unknown] Allergy/AdvReac Type Severity Reaction Status Date / Time carbamazepine [From Tegretol] Allergy Unknown Verified 08/17/21 21:57 divalproex sodium Allergy Other Verified 08/17/21 21:57 [From Depakote] methylphenidate Allergy Unknown Verified 08/17/21 21:57 [From Concerta] methylphenidate HCl Allergy Unknown Verified 08/17/21 21:57 [From Ritalin] phenobarbital Allergy Hives Verified 08/17/21 21:57 Family History Other Asthma Diabetes Hypertension Kidney disease Surgical History H/O hernia repair Hx of cholecystectomy Hx of tympanostomy tubes Social History household members: family housing: house Smoking Status: Never smoker alcohol intake: never ROS ROS ED Constitutional Constitutional ED: Denies chills or fever(s) Eyes Eyes: Denies change in vision or discharge from eye(s) ENT ENT ED: Denies discharge from eye(s), rhinorrhea or sore throat Cardiovascular Cardiovascular: Denies chest pain or palpitations Respiratory/Chest Respiratory/Chest: Denies cough or dyspnea Gastrointestinal Gastrointestinal: Reports abdominal pain and nausea; Denies diarrhea or vomiting Genitourinary Genitourinary ED: Denies difficulty urinating, dysuria or hematuria Musculoskeletal Musculoskeletal: Denies back pain or extremity pain Integumentary Denies Abrasions or rash Neurologic Neurologic: Denies headache(s) or weakness Psychiatric Psychiatric: Denies anxiety or depression Allergic/Immunologic Allergic/Immunologic ED: Denies lip swelling or urticaria EXAM Physical Exam Const Vital Signs: 08/17/21 21:57 Temperature 97 F L Temperature Source Temporal Pulse Rate 86 Respiratory Rate 16 Blood Pressure 130/85 H Blood Pressure Mean 100 Pulse Ox 97 Oxygen Delivery Method Room Air Positive well nourished and well developed General Appearance ED: well developed HEENT Reports normocephalic and head/scalp atraumatic Eyes PERRL and EOMs intact bilaterally Neck supple Chest Wall inspection of chest normal and palpation of chest normal Resp normal respiratory effort and clear to auscultation bilaterally Cardio regular rate and regular rhythm GI Palpation: soft and tender other (Left mid abdomen and lower quadrant tenderness. No guarding or rebound.) Back/Spine no CVA tenderness Extremity normal to inspection Neuro oriented x3 and no sensory deficits noted Sensorium / Orientation: alert Motor Exam: strength 5/5 throughout Psych mental status grossly normal Skin no rashes or lesions noted MDM MDM MDM Narrative Medical decision making narrative: Patient is given Toradol and Zofran for pain. Lab work and CT scan obtained. Lab Data Attestation: I reviewed the patient's lab results. Labs: Laboratory Results - last 24 hr 08/17/21 08/17/21 08/17/21 22:05 22:05 22:30 WBC 7.9 RBC 4.92 Hgb 12.5 L Hct 38.4 L MCV 78.0 L MCH 25.4 L MCHC 32.6 RDW Std Deviation 40.5 RDW Coeff of Nano 14.5 Plt Count 319 MPV 8.8 Immature Gran % (Auto) 0.300 Neut % (Auto) 49.3 Lymph % (Auto) 41.3 H [place] % (Auto) 9.0 Eos % (Auto) 0.0 Baso % (Auto) 0.1 Absolute Neuts (auto) 3.9 Absolute Lymphs (auto) 3.24 Nucleated RBC % 0 Sodium 138 Potassium 4.0 Chloride 107 Carbon Dioxide 25.0 Anion Gap 6 BUN 14 Creatinine 0.81 Estim Creat Clear Calc 141.44 Est GFR (MDRD) Af Amer 146 Est GFR (MDRD) Non-Af 120 BUN/Creatinine Ratio 17.2 Glucose 106 Calcium 9.1 Urine Color Yellow Urine Clarity Clear Urine pH 6.0 Ur Specific [place] 1.030 Urine Protein 15 H Urine Glucose (UA) Normal Urine Ketones Negative Urine Occult Blood Negative Urine Nitrite Negative Urine Bilirubin Negative Urine Urobilinogen Normal Ur Leukocyte Esterase Negative Urine RBC 0 SEEN Urine WBC 0-5 SEEN Ur Squamous Epith Cells 0 SEEN Urine Bacteria 1+ Urine Mucus 1+ Radiography Diagnostic Testing: Clinical Impression(s) from Imaging Studies Abdomen/Pelvis CT 08/17/21 22:13 IMPRESSION: Bilateral renal cysts the largest measures 2.5 cm. Electronically Signed: Teri Lacey MD at 0:35 EDT , Treatment and Re-Evaluation Narrative: Lab work and urinalysis unremarkable. CT scan shows bilateral renal cysts. Normal intestine noted. Test results discussed with patient and mother at bedside. He will be treated with Bentyl. Return instructions provided. Discharge Plan Triage Chief Complaint: Abd Pain ED Provider: Sisi Zavala Dx/Rx/DC Orders Clinical Impression: Abdominal pain Instructions: ED Abdominal Pain Unkn Cause Male... Prescriptions: New dicyclomine 20 mg tablet 20 mg PO TID PRN (Reason: abdominal cramping) Qty: 14 0RF No Action omeprazole 40 MG capsule 40 mg PO DAILY lamotrigine 200 mg tablet 200 mg PO BID mirtazapine 15 mg tablet 15 mg PO QHS trazodone 50 mg Tablet 50 mg PO QHS olanzapine 5 mg Tablet 5 mg PO DAILY Primary Care Provider: Turner Quick Referrals: Turner Quick MD [Primary Care Provider] - 1 Week if not improving Disposition Disposition: Home, Self Care
[2021-08-17 22:24] LABS: Absolute Lymphocyte Count 3.24 X10^3/uL (0.83-4.51); Absolute Neutrophil Count 3.9 X10^3/uL (2.0-7.7); Basophil# 0.01 X10^3/uL; Basophil% 0.1 % (0-1); Hematocrit 38.4 % (40-54); Hemoglobin 12.5 g/dL (13.0-16.5); Lymphocyte # 3.24 X10^3/ul (0.83-4.51); Lymphocyte % 41.3 % (19-41); Mean Corp Hgb Conc 32.6 g/dL (32-36); Mean Corpuscular Hgb 25.4 pg (27.0-32.0); Mean Platelet Vol. 8.8 fl (6.2-12.0); Monocyte# 0.71 X10^3/uL; NRBC Flagged by Analyzer 0 % (0-5); Neutrophil # 3.87 X10^3/uL (2.7-7.7); Neutrophil % 49.3 % (47-70); Platelet Count 319 K/mm3 (150-450); RBC Distribution Width CV 14.5 % (11.6-14.6); RBC Distribution Width SD 40.5 fl (35.1-43.9); Red Blood Count 4.92 M/mm3 (4.6-6.2); White Blood Count 7.9 K/mm3 (4.4-11.0)
[2021-08-17] MEDS: 0.9% Normal Saline 1,000 ML 150 ML IV (22:31)
[2021-08-17] MEDS: Ondansetron 4 MG/2 ML Vial IV (22:31)
[2021-08-17] MEDS: Ketorolac 30 MG/ML Syringe IV (22:31)
[2021-08-17 22:32] LABS: Red Blood Cells-Urine 0 SEEN /hpf (0-5); Squamous Epithelial Cells - UA 0 SEEN /hpf (0-5)
[2021-08-17 22:46] LABS: Color, Urine Yellow (Yellow); Glucose, Dipstick Normal (Normal); Ketone-Dipstick Negative (Negative); Leukocyte Esterase-Dipstick Negative /ul (Negative); Nitrite-Dipstick Negative (Negative); Occult Blood-Urine Negative /ul (Negative); Protein-Dipstick 15 mg/dl (Negative); Urine Bilirubin Dipstick Negative (Negative); Urine Clarity Clear (Clear); Urine Urobilinogen Normal (Normal)
[2021-08-17 22:48] LABS: Anion Gap 6 (5-15); BUN 14 mg/dL (7-18); BUN/Creat Ratio 17.2 RATIO (10-20); Calcium,Total 9.1 mg/dL (8.5-10.1); Chloride 107 mmol/L (98-107); Creatinine, Serum 0.81 mg/dL (0.70-1.30); EST Glomerular Filtration Rate 120 mL/min (>60); Est Glom Filt Rate - Afr Amer 146 mL/min (>60); Estimated Creatinine Clearance 141.44 ml/min; Glucose 106 mg/dL (74-106); Sodium Level 138 mmol/L (136-145)
[2021-08-17 23:16] LABS: Bacteria 1+ /hpf (None Seen); Mucous, Urine 1+ /hpf (<or=2+); White Blood Cells 0-5 SEEN /hpf (0-5)
[2021-08-18 01:10] VITALS: BP 103/63; PULSE 73; RESP 16; O2SAT 95
--- NOTE | 2021-08-18 01:12 | ED.RN ---
REVIEWED D/C INSTRUCTIONS, FOLLOW UP CARE, PRESCRIPTIONS, AND S/S THAT WOULD WARRANT A RETURN TO THE ED WITH PT. PT VERBALIZED AN UNDERSTANDING AND DENIES FURTHER QUESTIONS FOR THIS RN. PT SKIN P/W/D, RESP EVEN AND UNLABORED, PT A&O X 3, NO DISTRESS NOTED. PT AMBULATED OUT OF ED, GAIT STEADY.
== END 2021-08-18 01:13 | disposition home or self-care (01) ==
PROVIDERS: Emergency Provider Emergency Medicine; PCP Family Medicine; Visit Provider Emergency Medicine
DX: R10.9 Unspecified abdominal pain (principal); F25.9 Schizoaffective disorder, unspecified; F31.9 Bipolar disorder, unspecified; R11.0 Nausea; F90.9 Attention-deficit hyperactivity disorder, unspecified type; N28.1 Cyst of kidney, acquired
CPT/HCPCS: 74177; 80048; 81001; 85025; 99282; J7030; Q9967; A4216; J2405

== ENCOUNTER 2021-09-02 14:51 | Emergency (ER) | payer MEDICARE, MEDICAID, SELFPAY ==
[2021-09-02] VITALS (8 sets, daily range): BP systolic 129–148; BP diastolic 78–95; PULSE 74–77; RESP 14–18; TEMP 36.5; O2SAT 95–99; BMI 42.1
--- NOTE | 2021-09-02 15:54 | EDS_ITS ---
HPI History of Present Illness Chief Complaint: Suicidal Narrative Narrative: Presents with suicidal ideations. He has history of schizoaffective disorder, Asperger's, bipolar, he tells me at this time the voices are telling him to hurt himself. He wants to cut his wrist and he is still actively wants to cut his wrist. He has not acted on this yet 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 Pneumonia Psychiatric pseudoseizure PTSD (post-traumatic stress disorder) Schizophrenia Seizures Home Medications omeprazole 40 mg capsule,delayed release 40 mg PO DAILY 12/24/15 [History Last Taken Unknown] lamotrigine 200 mg tablet 200 mg PO BID 11/19/20 [History Last Taken Unknown] mirtazapine 15 mg tablet 15 mg PO QHS 11/19/20 [History Last Taken Unknown] olanzapine 5 mg tablet 5 mg PO DAILY 08/17/21 [History Last Taken Unknown] trazodone 50 mg tablet 50 mg PO QHS 08/17/21 [History Last Taken Unknown] dicyclomine 20 mg tablet 20 mg PO TID PRN abdominal cramping #14 tabs 08/18/21 [Rx Last Taken Unknown] Allergy/AdvReac Type Severity Reaction Status Date / Time carbamazepine [From Tegretol] Allergy Unknown Verified 09/02/21 14:53 divalproex sodium Allergy Other Verified 09/02/21 14:53 [From Depakote] methylphenidate Allergy Unknown Verified 09/02/21 14:53 [From Concerta] methylphenidate HCl Allergy Unknown Verified 09/02/21 14:53 [From Ritalin] phenobarbital Allergy Hives Verified 09/02/21 14:53 Family History Other Asthma Diabetes Hypertension Kidney disease Surgical History H/O hernia repair Hx of cholecystectomy Hx of tympanostomy tubes Social History household members: family housing: house Smoking Status: Never smoker alcohol intake: never ROS ROS ED ROS Narrative Past medical history: Reviewed Medications: Reviewed Social history: Noncontributory Review of systems: All systems negative except as indicated General: No fever Eyes: No visual changes ENT: No upper airway congestion, normal voice Neck: No neck pain Cardiovascular: No chest pain Respiratory: No shortness of breath or cough Gastrointestinal: Chronic abdominal cramping, no worsening. Genitourinary: No dysuria Musculoskeletal: Denies myalgias no difficulty with ambulation Skin: No rash Neurological: No memory loss, confusion or any focal weakness Psych: As in HPI Hematologic: No easy bleeding or easy bruising EXAM Physical Exam Narrative Exam Narrative: Physical exam General: Well nourished, Well developed, No Acute Distress Head: Normocephalic, Atraumatic Eyes: Conjunctiva not pale ENT: Moist mucous membranes Neck: Supple, Nontender, No lymphadenopathy Cardiovascular: Regular rate, Regular rhythm Respiratory: No distress, CTA bilaterally Abdomen: Soft, Nontender, Nondistended Back: Nontender, Normal Inspection. Negative for: CVA tenderness Extremities: Nontender, no signs of any lacerations. Skin: Normal color, No rash Neurological: Alert, Normal Strength, Normal Sensation Psychological: Odd affect, he does admit to suicidal ideations. Const Vital Signs: 09/02/21 14:51 Temperature 97.7 F L Temperature Source Temporal Pulse Rate 77 Respiratory Rate 18 Blood Pressure 148/95 H Blood Pressure Mean 112 Pulse Ox 95 Oxygen Delivery Method Room Air MDM MDM MDM Narrative Medical decision making narrative: Patient will be medically cleared, will discuss with crisis, otherwise I will turn him over to the oncoming ED physician. Discharge Plan Triage Chief Complaint: Suicidal ED Provider: Delvis Castellon Dx/Rx/DC Orders Prescriptions: No Action omeprazole 40 MG capsule 40 mg PO DAILY lamotrigine 200 mg tablet 200 mg PO BID mirtazapine 15 mg tablet 15 mg PO QHS trazodone 50 mg Tablet 50 mg PO QHS olanzapine 5 mg Tablet 5 mg PO DAILY dicyclomine 20 mg tablet 20 mg PO TID PRN (Reason: abdominal cramping) Qty: 14 0RF Primary Care Provider: Turner Quick Referrals: Turner Quick MD [Primary Care Provider] -
[2021-09-02 16:30] LABS: Anion Gap 6 (5-15); BUN 16 mg/dL (7-18); BUN/Creat Ratio 17.5 RATIO (10-20); Calcium,Total 9.1 mg/dL (8.5-10.1); Chloride 106 mmol/L (98-107); Creatinine, Serum 0.91 mg/dL (0.70-1.30); EST Glomerular Filtration Rate 105 mL/min (>60); Est Glom Filt Rate - Afr Amer 127 mL/min (>60); Estimated Creatinine Clearance 133.83 ml/min; Glucose 95 mg/dL (74-106); Potassium 3.9 mmol/L (3.5-5.1); Sodium Level 137 mmol/L (136-145)
[2021-09-02 16:39] LABS: Amphetamine Urine VISTA NEGATIVE (<1000 ng/mL); Barbiturate Urine VISTA NEGATIVE (< 200 ng/mL); Benzodiazepine Urine VISTA NEGATIVE (< 200 ng/mL); Cocaine Urine VISTA NEGATIVE (< 300 ng/mL); Ecstacy Urine VISTA NEGATIVE (< 500 ng/mL); Methadone Urine VISTA NEGATIVE (< 300 ng/mL); PCP Urine VISTA NEGATIVE (< 25 ng/mL); THC Urine VISTA NEGATIVE (< 50 ng/mL); Vista UDS pH Range 5
[2021-09-02 16:40] LABS: Absolute Lymphocyte Count 2.09 X10^3/uL (0.83-4.51); Absolute Neutrophil Count 4.6 X10^3/uL (2.0-7.7); Basophil# 0.01 X10^3/uL; Basophil% 0.1 % (0-1); Hematocrit 39.4 % (40-54); Hemoglobin 12.8 g/dL (13.0-16.5); Lymphocyte # 2.09 X10^3/ul (0.83-4.51); Lymphocyte % 28.6 % (19-41); Mean Corp Hgb Conc 32.5 g/dL (32-36); Mean Corpuscular Hgb 25.3 pg (27.0-32.0); Mean Corpuscular Volume 77.9 fL (80-94); Mean Platelet Vol. 8.9 fl (6.2-12.0); Monocyte# 0.61 X10^3/uL; Monocyte% 8.3 % (0-10); NRBC Flagged by Analyzer 0 % (0-5); Neutrophil # 4.59 X10^3/uL (2.7-7.7); Neutrophil % 62.7 % (47-70); Platelet Count 306 K/mm3 (150-450); RBC Distribution Width CV 14.7 % (11.6-14.6); RBC Distribution Width SD 41.1 fl (35.1-43.9); Red Blood Count 5.06 M/mm3 (4.6-6.2); White Blood Count 7.3 K/mm3 (4.4-11.0)
[2021-09-02 17:18] LABS: Alcohol, Blood (Medical)-Serum < 3.0 mg/dL
--- NOTE | 2021-09-02 17:23 | NURSING ---
FAXED CHART TO CRISIS
[2021-09-02] MEDS: traZODone 50 MG Tablet PO (22:37)
[2021-09-02] MEDS: Mirtazapine 15 MG Tablet 7.5 MG PO (22:37)
[2021-09-02] MEDS: lamoTRIgine 100 MG Tablet 200 MG PO (22:37)
[2021-09-03 01:00] VITALS: RESP 14
[2021-09-03 02:20] VITALS: PULSE 88; RESP 15; O2SAT 99
== END 2021-09-03 02:21 ==
LOC: ED 16:02
PROVIDERS: Emergency Provider Emergency Medicine; PCP Family Medicine; Visit Provider Emergency Medicine
DX: R45.851 Suicidal ideations (principal); F20.9 Schizophrenia, unspecified; F31.9 Bipolar disorder, unspecified; F84.5 Asperger's syndrome; F90.9 Attention-deficit hyperactivity disorder, unspecified type
CPT/HCPCS: 80048; 80307; 82077; 85025; 87811; 99285

== ENCOUNTER 2022-04-22 16:52 | Emergency (ER) | payer MEDICARE, MEDICAID, SELFPAY ==
[2022-04-22 16:53] VITALS: BP 150/80; PULSE 96; RESP 16; TEMP 36.2; O2SAT 97; BMI 43.9
--- NOTE | 2022-04-22 17:21 | EDS_ITS ---
HPI HPI - Psych History of Present Illness Chief Complaint: Suicidal Detail of Chief Complaint: Suicidal ideation Informant: patient and parent Narrative Narrative: NotPatient presents the emergency department with thoughts of self-harm. Patient states that he started hearing voices today telling him to kill himself and jump in front of a car door and cut himself. Patient has not acted on these but feels compelled to do so. Patient also has had some visual hallucinations and states that he sees people. Patient what may have triggered these thoughts today. He does have history of ADHD as well as asked Buerger's and bipolar and PTSD. Patient with history of schizophrenia. 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 Pneumonia Psychiatric pseudoseizure PTSD (post-traumatic stress disorder) Schizophrenia Seizures Home Medications omeprazole 40 mg capsule,delayed release 40 mg PO DAILY 12/24/15 [History Last Taken Unknown] lamotrigine 200 mg tablet 200 mg PO BID 11/19/20 [History Last Taken Unknown] mirtazapine 15 mg tablet 7.5 mg PO QHS 11/19/20 [History Last Taken Unknown] olanzapine 5 mg tablet 5 mg PO DAILY 08/17/21 [History Last Taken Unknown] trazodone 50 mg tablet 50 mg PO QHS 08/17/21 [History Last Taken Unknown] dicyclomine 20 mg tablet 20 mg PO TID PRN abdominal cramping #14 tabs 08/18/21 [Rx Last Taken Unknown] hydroxyzine pamoate 25 mg capsule (Vistaril) 25 mg PO TID PRN Anxiety 04/22/22 [History Last Taken Unknown] Allergy/AdvReac Type Severity Reaction Status Date / Time carbamazepine [From Tegretol] Allergy Unknown Verified 04/22/22 16:55 divalproex sodium Allergy Other Verified 04/22/22 16:55 [From Depakote] methylphenidate Allergy Unknown Verified 04/22/22 16:55 [From Concerta] methylphenidate HCl Allergy Unknown Verified 04/22/22 16:55 [From Ritalin] phenobarbital Allergy Hives Verified 04/22/22 16:55 Family History Other Asthma Diabetes Hypertension Kidney disease Surgical History H/O hernia repair Hx of cholecystectomy Hx of tympanostomy tubes Social History household members: family housing: house Smoking Status: Never smoker alcohol intake: never ROS ROS ED Review of Systems ROS Unobtainable: other Constitutional Constitutional ED: Reports lethargy; Denies chills, fever(s), sweats or weight loss Eyes Eyes: Denies blurry vision, change in vision or diplopia ENT ENT ED: Denies rhinorrhea or sore throat Cardiovascular Cardiovascular: Reports chest pain and racing heartbeat; Denies orthopnea Respiratory/Chest Respiratory/Chest: Reports dyspnea and dyspnea on exertion; Denies cough, orthopnea or sputum Gastrointestinal Gastrointestinal: Denies abdominal pain, diarrhea, nausea or vomiting Genitourinary Genitourinary ED: Denies dysuria, hematuria or urinary frequency Musculoskeletal Musculoskeletal: Denies arthralgias, back pain, myalgias or neck pain Integumentary Denies abscess, Abrasions or rash Neurologic Neurologic: Denies headache(s) or weakness Psychiatric Psychiatric: Reports depression, suicidal ideation and suicidal thoughts; Denies anxiety Endocrine Endocrinology: Denies polydipsia, polyphagia or polyuria Hematologic/Lymphatic Hematologic/Lymphatic: Denies easy bleeding, easy bruising or lymphadenopathy Allergic/Immunologic Allergic/Immunologic ED: Denies mouth swelling, tongue swelling or urticaria EXAM Physical Exam Const Vital Signs: 04/22/22 16:53 Temperature 97.2 F L Temperature Source Temporal Pulse Rate 96 Respiratory Rate 16 Blood Pressure 150/80 H Blood Pressure Mean 103 Pulse Ox 97 Oxygen Delivery Method Room Air Positive well nourished and well developed General Appearance ED: well developed and NAD HEENT Reports TM's clear and moist mucous membranes normocephalic and atraumatic; Negative for trauma or tenderness Tympanic Membrane ED: Yes TM's clear Eyes PERRL and EOMs intact bilaterally General Eye ED: Negative for pale conjunctiva or scleral icterus Neck no lymphadenopathy, supple and no JVD General: Negative for tenderness Chest Wall inspection of chest normal and palpation of chest normal Chest: Negative for tenderness Resp normal respiratory effort and clear to auscultation bilaterally Effort and Inspection: Negative for respiratory distress or pain with movement Auscultation: Negative for rhonchi, wheezes or diminished lung sounds Cardio regular rate, regular rhythm, S1 normal heart sound, S2 normal heart sound and no murmurs Peripheral Pulses: pulses 2+ throughout GI normal to inspection, nondistended, normoactive bowel sounds, soft to palpation, non-tender, non-distended and no masses Back/Spine no CVA tenderness and no thoracic nor lumbar tenderness Extremity normal to inspection General Extremety ED: Negative for edema General Extremity: Negative for edema Neuro oriented x3, CN's II-XII intact bilaterally, no sensory deficits noted and gait normal Sensorium / Orientation: awake, alert, oriented to person, oriented to place and oriented to time Motor Exam: strength 5/5 throughout and strength abnormal Psych mental status grossly normal Skin no rashes or lesions noted and no wounds MDM MDM MDM Narrative Medical decision making narrative: Patient presents with suicidal ideation. Patient also presents with hallucinations. Lab work-up unremarkable and toxicology screen was negative. Case discussed with director of social media marketing who evaluated patient. Was felt patient would benefit from an hospital stabilization for his psychiatric issues. merchandise worker will attempt to find placement to psychiatric facility for patient. Lab Data Attestation: I reviewed the patient's lab results. Labs: Laboratory Results - last 24 hr 04/22/22 04/22/22 04/22/22 17:25 17:35 17:35 WBC 7.3 RBC 5.22 Hgb 13.2 Hct 41.4 MCV 79.3 L MCH 25.3 L MCHC 31.9 L RDW Std Deviation 41.1 RDW Coeff of Nano 14.4 Plt Count 353 MPV 8.8 Immature Gran % (Auto) 0.300 Neut % (Auto) 64.3 Lymph % (Auto) 26.2 Roane % (Auto) 9.1 Eos % (Auto) 0.0 Baso % (Auto) 0.1 Absolute Neuts (auto) 4.7 Absolute Lymphs (auto) 1.90 Nucleated RBC % 0 Sodium 137 Potassium 3.8 Chloride 106 Carbon Dioxide 24.0 Anion Gap 7 BUN 9 Creatinine 0.83 Estim Creat Clear Calc 145.44 Est GFR (MDRD) Af Amer 141 Est GFR (MDRD) Non-Af 116 BUN/Creatinine Ratio 10.8 Glucose 92 Calcium 9.5 Urine Opiates Screen NEGATIVE Urine Methadone Screen NEGATIVE Ur Barbiturates Screen NEGATIVE Ur Phencyclidine Scrn NEGATIVE Ur Amphetamines Screen NEGATIVE MDMA (Ecstasy) Screen NEGATIVE U Benzodiazepines Scrn NEGATIVE Urine Cocaine Screen NEGATIVE U Cannabinoids Screen NEGATIVE Ur Drug Screen Comment Discharge Plan Triage Chief Complaint: Suicidal ED Provider: Marni Mondragon Dx/Rx/DC Orders Clinical Impression: Suicidal ideation, Depression, Hx of schizophrenia Prescriptions: No Action omeprazole 40 MG capsule 40 mg PO DAILY lamotrigine 200 mg tablet 200 mg PO BID mirtazapine 15 mg tablet 7.5 mg PO QHS trazodone 50 mg Tablet 50 mg PO QHS olanzapine 5 mg Tablet 5 mg PO DAILY dicyclomine 20 mg tablet 20 mg PO TID PRN (Reason: abdominal cramping) Qty: 14 0RF hydroxyzine pamoate [Vistaril] 25 mg Capsule 25 mg PO TID PRN (Reason: Anxiety) Primary Care Provider: Turner Quick Referrals: Turner Quick MD [Primary Care Provider] - Disposition Disposition: Psychiatric Hospital or Unit
[2022-04-22 17:47] LABS: Absolute Neutrophil Count 4.7 X10^3/uL (2.0-7.7); Basophil# 0.01 X10^3/uL; Basophil% 0.1 % (0-1); Hematocrit 41.4 % (40-54); Hemoglobin 13.2 g/dL (13.0-16.5); Lymphocyte % 26.2 % (19-41); Mean Corp Hgb Conc 31.9 g/dL (32-36); Mean Corpuscular Hgb 25.3 pg (27.0-32.0); Mean Corpuscular Volume 79.3 fL (80-94); Mean Platelet Vol. 8.8 fl (6.2-12.0); Monocyte# 0.66 X10^3/uL; Monocyte% 9.1 % (0-10); NRBC Flagged by Analyzer 0 % (0-5); Neutrophil # 4.66 X10^3/uL (2.7-7.7); Neutrophil % 64.3 % (47-70); Platelet Count 353 K/mm3 (150-450); RBC Distribution Width CV 14.4 % (11.6-14.6); RBC Distribution Width SD 41.1 fl (35.1-43.9); Red Blood Count 5.22 M/mm3 (4.6-6.2); White Blood Count 7.3 K/mm3 (4.4-11.0)
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
[2022-04-22 18:00] LABS: Anion Gap 7 (5-15); BUN 9 mg/dL (7-18); BUN/Creat Ratio 10.8 RATIO (10-20); Calcium,Total 9.5 mg/dL (8.5-10.1); Chloride 106 mmol/L (98-107); Creatinine, Serum 0.83 mg/dL (0.70-1.30); EST Glomerular Filtration Rate 116 mL/min (>60); Est Glom Filt Rate - Afr Amer 141 mL/min (>60); Estimated Creatinine Clearance 145.44 ml/min; Glucose 92 mg/dL (74-106); Potassium 3.8 mmol/L (3.5-5.1); Sodium Level 137 mmol/L (136-145)
[2022-04-22 18:06] LABS: Amphetamine Urine VISTA NEGATIVE (<1000 ng/mL); Barbiturate Urine VISTA NEGATIVE (< 200 ng/mL); Benzodiazepine Urine VISTA NEGATIVE (< 200 ng/mL); Cocaine Urine VISTA NEGATIVE (< 300 ng/mL); Ecstacy Urine VISTA NEGATIVE (< 500 ng/mL); Methadone Urine VISTA NEGATIVE (< 300 ng/mL); PCP Urine VISTA NEGATIVE (< 25 ng/mL); THC Urine VISTA NEGATIVE (< 50 ng/mL); Vista UDS pH Range 6
--- NOTE | 2022-04-22 18:20 | CM.ED ---
Mother/Guardian inquired if she could leave. WALTER spoke to Janel Kenyon RN, who stated that as patient is adult she can leave. WALTER advised mother she can leave but needs to be accessible by phone for consent to accepting hospital. Mother verbalized agreement and understanding. WALTER sent referrals to Amie Waterman, [facility] Laughlin and [facility]. Karon JHAVERI
[2022-04-22 18:33] LABS: Alcohol, Blood (Medical)-Serum < 3.0 mg/dL
[2022-04-22 18:40] VITALS: RESP 16
[2022-04-22 19:01] VITALS: BP 130/74; PULSE 85; RESP 17; TEMP 36.8; O2SAT 97
--- NOTE | 2022-04-22 19:05 | ED.RN ---
Report taken by this nurse and vital signs updated. Dispo added to work list but expected squad is due at 0630. Pt is calm and sitting in bed with no complaints at this time and sitter in room.
--- NOTE | 2022-04-22 19:17 | CM.ED ---
WALTER received call from [facility] staff. They can accept patient. Accepting MD is Ольга. Patient is going to [facility]. RN to RN is [phone]. WALTER updated patient and patient's mother/guardian that patient was accepted at [facility]. WALTER updated MD and rn discharge Chantale. WALTER cancelled referral to moris nicholson and Amie Waterman. Plan: [facility] Karon JHAVERI
--- NOTE | 2022-04-22 19:34 | ED.RN ---
Transport outsourced and will now be here at 2300
[2022-04-22 19:43] VITALS: BP 140/75; PULSE 89; RESP 12; O2SAT 99
[2022-04-23 00:20] VITALS: O2SAT 98
== END 2022-04-23 00:23 ==
PROVIDERS: Emergency Provider Emergency Medicine; PCP Family Medicine; Visit Provider Emergency Medicine
DX: F20.9 Schizophrenia, unspecified (principal); R45.851 Suicidal ideations; F43.10 Post-traumatic stress disorder, unspecified; F90.9 Attention-deficit hyperactivity disorder, unspecified type; J45.909 Unspecified asthma, uncomplicated; F84.5 Asperger's syndrome; Z79.899 Other long term (current) drug therapy
CPT/HCPCS: 80048; 80307; 82077; 85025; 87428; 99284

== ENCOUNTER 2022-06-02 16:55 | Emergency (ER) | payer MEDICARE, MEDICAID, SELFPAY ==
[2022-06-02 16:56] VITALS: BP 135/92; PULSE 90; RESP 18; TEMP 35.6; O2SAT 96; BMI 43.3
[2022-06-02 18:17] LABS: Mucous, Urine 0 SEEN /hpf (<or=2+); Red Blood Cells-Urine 0 SEEN /hpf (0-5)
[2022-06-02 18:19] LABS: Color, Urine Yellow (Yellow); Glucose, Dipstick Normal (Normal); Ketone-Dipstick 5 mg/dl (Negative); Leukocyte Esterase-Dipstick Negative /ul (Negative); Nitrite-Dipstick Negative (Negative); Occult Blood-Urine Negative /ul (Negative); Protein-Dipstick 30 mg/dl (Negative); Urine Bilirubin Dipstick Negative (Negative); Urine Clarity Clear (Clear); Urine Urobilinogen 1 mg/dl (Normal); Urine pH 6.5 (5.0 - 8.0)
[2022-06-02 18:43] LABS: Bacteria RARE /hpf (None Seen); Squamous Epithelial Cells - UA 0-5 SEEN /hpf (0-5); White Blood Cells 0-5 SEEN /hpf (0-5)
[2022-06-02 18:56] LABS: Amphetamine Urine VISTA NEGATIVE (<1000 ng/mL); Barbiturate Urine VISTA NEGATIVE (< 200 ng/mL); Benzodiazepine Urine VISTA NEGATIVE (< 200 ng/mL); Cocaine Urine VISTA NEGATIVE (< 300 ng/mL); Ecstacy Urine VISTA NEGATIVE (< 500 ng/mL); Methadone Urine VISTA NEGATIVE (< 300 ng/mL); PCP Urine VISTA NEGATIVE (< 25 ng/mL); THC Urine VISTA NEGATIVE (< 50 ng/mL); Vista UDS pH Range 6
[2022-06-02 19:00] VITALS: RESP 16
[2022-06-02 19:47] LABS: Absolute Lymphocyte Count 2.81 X10^3/uL (0.83-4.51); Absolute Neutrophil Count 5.4 X10^3/uL (2.0-7.7); Basophil# 0.01 X10^3/uL; Basophil% 0.1 % (0-1); Hematocrit 38.3 % (40-54); Hemoglobin 12.4 g/dL (13.0-16.5); Lymphocyte # 2.81 X10^3/ul (0.83-4.51); Lymphocyte % 31.5 % (19-41); Mean Corp Hgb Conc 32.4 g/dL (32-36); Mean Corpuscular Hgb 25.4 pg (27.0-32.0); Mean Corpuscular Volume 78.3 fL (80-94); Mean Platelet Vol. 8.8 fl (6.2-12.0); Monocyte# 0.68 X10^3/uL; Monocyte% 7.6 % (0-10); NRBC Flagged by Analyzer 0 % (0-5); Neutrophil % 60.6 % (47-70); Platelet Count 294 K/mm3 (150-450); RBC Distribution Width CV 14.6 % (11.6-14.6); RBC Distribution Width SD 41.1 fl (35.1-43.9); Red Blood Count 4.89 M/mm3 (4.6-6.2); White Blood Count 8.9 K/mm3 (4.4-11.0)
[2022-06-02 20:00] VITALS: RESP 15
[2022-06-02 20:04] LABS: Anion Gap 7 (5-15); BUN 9 mg/dL (7-18); BUN/Creat Ratio 11.7 RATIO (10-20); Chloride 105 mmol/L (98-107); Creatinine, Serum 0.77 mg/dL (0.70-1.30); EST Glomerular Filtration Rate 127 mL/min (>60); Est Glom Filt Rate - Afr Amer 154 mL/min (>60); Estimated Creatinine Clearance 156.77 ml/min; Glucose 89 mg/dL (74-106); Potassium 3.8 mmol/L (3.5-5.1); Sodium Level 137 mmol/L (136-145)
[2022-06-02 20:14] LABS: Alcohol, Blood (Medical)-Serum < 3.0 mg/dL
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
--- NOTE | 2022-06-02 20:37 | CM.ED ---
Social Work Note SW provided hand off to Demetria with [facility] to assist with placement; hospital unit coordinator to fax referral packet to [facility] when patient is medically cleared to faxage [phone]. Plan: psych placement Yuli FERRERA, TOM
[2022-06-02 21:00] VITALS: RESP 16
[2022-06-02] MEDS: lamoTRIgine 100 MG Tablet 200 MG PO (21:20)
[2022-06-02] MEDS: traZODone 50 MG Tablet PO (21:20)
[2022-06-02 22:00] VITALS: BP 129/77; PULSE 87; RESP 15; O2SAT 99
--- NOTE | 2022-06-02 22:27 | EX.ED.VIS.PS ---
HPI HPI - Psych History of Present Illness Chief Complaint: Suicidal Informant: patient Onset/Context/Timing Onset: Today Context: Sudden Onset Timing: Continuous Worsened by: - (Nothing) Relieved by: Nothing Associated Symptoms Associated Symptoms - Psych: Positive for Depressed, Suicidal Thoughts and Auditory Hallucinations Specific plan (suicidal thought): Cutting self Narrative Narrative: Patient presents with depression and suicidal ideations that became worse today. Patient states he was feeling voices that were telling him to hurt himself. Patient has had thoughts of cutting himself. Patient states he has thought of cutting his wrists, cutting his abdomen, and cutting his neck. Patient states nothing brought this on. Patient states nothing makes it any better. Patient states nothing makes it worse. Patient states he has been compliant with his medications. 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 Pneumonia Psychiatric pseudoseizure PTSD (post-traumatic stress disorder) Schizophrenia Seizures Home Medications omeprazole 40 mg capsule,delayed release 40 mg PO DAILY 12/24/15 [History Last Taken Unknown] lamotrigine 200 mg tablet 200 mg PO BID 11/19/20 [History Last Taken Unknown] trazodone 50 mg tablet 50 mg PO QHS 08/17/21 [History Last Taken Unknown] paliperidone 6 mg tablet,extended release 24 hr 6 mg PO QHS 06/02/22 [History Last Taken Unknown] paliperidone palm (3-month) 819 mg/2.63 mL intramuscular syringe (Invega Trinza) 819 mg IM Q3M 06/02/22 [History Last Taken 05/31/22] Allergy/AdvReac Type Severity Reaction Status Date / Time bee venom protein (honey bee) Allergy Anaphylaxis Verified 06/02/22 16:56 carbamazepine [From Tegretol] Allergy Unknown Verified 06/02/22 16:56 divalproex sodium Allergy Other Verified 06/02/22 16:56 [From Depakote] methylphenidate Allergy Unknown Verified 06/02/22 16:56 [From Concerta] methylphenidate HCl Allergy Unknown Verified 06/02/22 16:56 [From Ritalin] phenobarbital Allergy Hives Verified 06/02/22 16:56 Family History Other Asthma Diabetes Hypertension Kidney disease Surgical History H/O hernia repair Hx of cholecystectomy Hx of tympanostomy tubes Social History household members: family housing: house Smoking Status: Never smoker alcohol intake: never ROS ROS ED Constitutional Constitutional ED: Denies chills or fever(s) Eyes Eyes: Denies blurry vision or change in vision ENT ENT ED: Denies rhinorrhea or sore throat Cardiovascular Cardiovascular: Denies chest pain or palpitations Respiratory/Chest Respiratory/Chest: Denies cough or dyspnea Gastrointestinal Gastrointestinal: Denies nausea or vomiting Genitourinary Genitourinary ED: Denies dysuria or hematuria Musculoskeletal Musculoskeletal: Denies back pain or neck pain Integumentary Denies abscess or rash Neurologic Neurologic: Denies headache(s) or weakness Psychiatric Psychiatric: Reports depression, suicidal ideation and suicidal thoughts Allergic/Immunologic Allergic/Immunologic ED: Denies mouth swelling or urticaria EXAM Physical Exam Const Vital Signs: 06/02/22 16:56 06/02/22 19:00 06/02/22 20:00 Temperature 96.1 F L Temperature Source Temporal Pulse Rate 90 Respiratory Rate 18 16 15 Blood Pressure 135/92 H Blood Pressure Mean 106 Pulse Ox 96 Oxygen Delivery Method Room Air 06/02/22 21:00 06/02/22 22:00 Temperature Temperature Source Pulse Rate 87 Respiratory Rate 16 15 Blood Pressure 129/77 H Blood Pressure Mean 94 Pulse Ox 99 Oxygen Delivery Method Room Air Positive well nourished, well developed and obese General Appearance ED: well developed and NAD Nutritional Appearance: obese HEENT normocephalic and atraumatic Neck supple and no JVD Resp normal respiratory effort and clear to auscultation bilaterally Cardio no murmurs Rate: regular rate Rhythm: regular rhythm GI non-tender and non-distended Auscultation: normoactive bowel sounds Palpation: soft Extremity normal to inspection General Extremety ED: Negative for edema or tenderness General Extremity: Negative for edema Neuro oriented x3, CN's II-XII intact bilaterally and no sensory deficits noted Sensorium / Orientation: alert Motor Exam: strength 5/5 throughout Psych mental status grossly normal Appearance: grossly normal Attitude: calm Activity / Motor Behavior: appropriate eye contact Speech: minimal and soft Mood & Affect: depressed and flat affect Thought Content: suicidality Skin Rashes: no rashes MDM MDM MDM Narrative Medical decision making narrative: Medical screening labs will be obtained. CBC will be obtained to assess for leukocytosis and anemia. Basic metabolic profile will be obtained to assess for electrolyte abnormality and renal function. Serum alcohol level will be obtained to assess for alcohol intoxication. Urine tox screen will be obtained to assess for substance abuse. Urinalysis will be obtained to assess for urinary tract infection. COVID-19 rapid antigen will be obtained to assess for COVID infection. EKG will be obtained to assess for cardiac dysrhythmia and assess for the QT interval. Lab Data Lab results narrative: CBC was reviewed and showed a slight anemia with a hemoglobin of 12.4 hematocrit 38.3. Basic metabolic profile was reviewed and was within normal limits. Urinalysis was reviewed. There is no evidence of urinary tract infection or hematuria. Serum alcohol level was reviewed and was normal at less than 3. Urine tox screen was reviewed and was negative. COVID-19 rapid antigen was reviewed and was negative. Labs: Laboratory Results - last 24 hr 06/02/22 06/02/22 06/02/22 18:15 18:15 19:35 WBC 8.9 RBC 4.89 Hgb 12.4 L Hct 38.3 L MCV 78.3 L MCH 25.4 L MCHC 32.4 RDW Std Deviation 41.1 RDW Coeff of Nano 14.6 Plt Count 294 MPV 8.8 Immature Gran % (Auto) 0.200 Neut % (Auto) 60.6 Lymph % (Auto) 31.5 [place] % (Auto) 7.6 Eos % (Auto) 0.0 Baso % (Auto) 0.1 Absolute Neuts (auto) 5.4 Absolute Lymphs (auto) 2.81 Nucleated RBC % 0 Sodium Potassium Chloride Carbon Dioxide Anion Gap BUN Creatinine Estim Creat Clear Calc Est GFR (MDRD) Af Amer Est GFR (MDRD) Non-Af BUN/Creatinine Ratio Glucose Calcium Urine Color Yellow Urine Clarity Clear Urine pH 6.5 Ur Specific [place] 1.020 Urine Protein 30 H Urine Glucose (UA) Normal Urine Ketones 5 H Urine Occult Blood Negative Urine Nitrite Negative Urine Bilirubin Negative Urine Urobilinogen 1 H Ur Leukocyte Esterase Negative Urine RBC 0 SEEN Urine WBC 0-5 SEEN Ur Squamous Epith Cells 0-5 SEEN Urine Bacteria RARE Urine Mucus 0 SEEN Urine Opiates Screen NEGATIVE Urine Methadone Screen NEGATIVE Ur Barbiturates Screen NEGATIVE Ur Phencyclidine Scrn NEGATIVE Ur Amphetamines Screen NEGATIVE MDMA (Ecstasy) Screen NEGATIVE U Benzodiazepines Scrn NEGATIVE Urine Cocaine Screen NEGATIVE U Cannabinoids Screen NEGATIVE Ur Drug Screen Comment Ethyl Alcohol 06/02/22 06/02/22 19:35 19:35 WBC RBC Hgb Hct MCV MCH MCHC RDW Std Deviation RDW Coeff of Nano Plt Count MPV Immature Gran % (Auto) Neut % (Auto) Lymph % (Auto) [place] % (Auto) Eos % (Auto) Baso % (Auto) Absolute Neuts (auto) Absolute Lymphs (auto) Nucleated RBC % Sodium 137 Potassium 3.8 Chloride 105 Carbon Dioxide 25.0 Anion Gap 7 BUN 9 Creatinine 0.77 Estim Creat Clear Calc 156.77 Est GFR (MDRD) Af Amer 154 Est GFR (MDRD) Non-Af 127 BUN/Creatinine Ratio 11.7 Glucose 89 Calcium 9.0 Urine Color Urine Clarity Urine pH Ur Specific [place] Urine Protein Urine Glucose (UA) Urine Ketones Urine Occult Blood Urine Nitrite Urine Bilirubin Urine Urobilinogen Ur Leukocyte Esterase Urine RBC Urine WBC Ur Squamous Epith Cells Urine Bacteria Urine Mucus Urine Opiates Screen Urine Methadone Screen Ur Barbiturates Screen Ur Phencyclidine Scrn Ur Amphetamines Screen MDMA (Ecstasy) Screen U Benzodiazepines Scrn Urine Cocaine Screen U Cannabinoids Screen Ur Drug Screen Comment Ethyl Alcohol < 3.0 EKG Initial EKG: Attestation: I personally reviewed and interpreted this EKG as follows: Interpretation: Sinus Rhythm (77) and No Acute Injury Pattern Comments: EKG was obtained. On my independent interpretation, it showed a normal sinus rhythm with a rate of 77. [place] interval, QRS interval, and QTc intervals were all normal. [place] was normal. There are no acute ST or T wave changes. Prior EKG tracings: available for review Prior: Unchanged (03/26/2020) Management Discussion w/another healthcare provider: plant and equipment worker/Case management Treatment and Re-Evaluation Narrative: Patient is medically cleared for psychiatric evaluation. plant and equipment worker was in to evaluate the patient and felt the patient would benefit from inpatient treatment. She will attempt to find placement for the patient. Crisis counselor will also be involved in trying to find placement for the patient. Patient understands and is agreeable with the plan. All questions were answered. Care of the patient will be signed out to the oncoming physician pending psychiatric placement. Discharge Plan Triage Chief Complaint: Suicidal ED Provider: Alex Membreno Dx/Rx/DC Orders Clinical Impression: Depression with suicidal ideation, Auditory hallucination Prescriptions: No Action omeprazole 40 MG capsule 40 mg PO DAILY lamotrigine 200 mg tablet 200 mg PO BID trazodone 50 mg Tablet 50 mg PO QHS paliperidone 6 mg tablet extended release 24hr 6 mg PO QHS Invega Trinza 819 mg/2.63 mL syringe 819 mg IM Q3M Primary Care Provider: Turner Quick Referrals: Turner Quick MD [Primary Care Provider] - Disposition Disposition: Psychiatric Hospital or Unit
[2022-06-02 23:00] VITALS: RESP 16
[2022-06-03] VITALS (8 sets, daily range): BP systolic 127–132; BP diastolic 69–84; PULSE 71–84; RESP 16–18; O2SAT 95–97
== END 2022-06-03 10:39 ==
PROVIDERS: Emergency Provider Emergency Medicine; PCP Family Medicine; Visit Provider Emergency Medicine
DX: R45.851 Suicidal ideations (principal); F32.A Depression, unspecified; R44.3 Hallucinations, unspecified; Z79.899 Other long term (current) drug therapy; F90.9 Attention-deficit hyperactivity disorder, unspecified type
CPT/HCPCS: 80048; 80307; 81001; 82077; 85025; 87811; 93005; 99285

== ENCOUNTER 2022-10-11 20:29 | Emergency (ER) | payer MEDICARE, MEDICAID, SELFPAY ==
[2022-10-11 20:33] VITALS: BP 144/82; PULSE 94; RESP 16; TEMP 36.8; O2SAT 96; BMI 45.5
--- NOTE | 2022-10-11 21:55 | ED.VIS.LOWEX ---
HPI History of Present Illness HPI Narrative: 27-year-old autistic male complaining of atraumatic right great toe pain. He states it is locked. Denies any injury. He has previously had the great toenail removed due to an infection. Chief Complaint: Lower Extremity Injury Informant: patient and family Occured/Mechanism Mechanism/Context: No injury and No blunt trauma Onset/Context/Timing Onset: Today Context: Gradual Onset Timing: Continuous Quality of Pain: Dull Current Severity: Mild Maximum Severity: Mild Narrative Narrative: No history of gout. No trauma or surgery to his foot. No redness or drainage. 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 Pneumonia Psychiatric pseudoseizure PTSD (post-traumatic stress disorder) Schizophrenia Seizures Home Medications omeprazole 40 mg capsule,delayed release 40 mg PO DAILY 12/24/15 [History Last Taken Unknown] lamotrigine 200 mg tablet 200 mg PO BID 11/19/20 [History Last Taken Unknown] trazodone 50 mg tablet 50 mg PO QHS 08/17/21 [History Last Taken Unknown] paliperidone 6 mg tablet,extended release 24 hr 6 mg PO QHS 06/02/22 [History Last Taken Unknown] paliperidone palm (3 month) 819 mg/2.63 mL intramuscular syringe (Invega Trinza) 819 mg IM Q3M 06/02/22 [History Last Taken 05/31/22] Allergy/AdvReac Type Severity Reaction Status Date / Time bee venom protein (honey bee) Allergy Anaphylaxis Verified 10/11/22 20:33 carbamazepine [From Tegretol] Allergy Unknown Verified 10/11/22 20:33 divalproex sodium Allergy Other Verified 10/11/22 20:33 [From Depakote] methylphenidate Allergy Unknown Verified 10/11/22 20:33 [From Concerta] methylphenidate HCl Allergy Unknown Verified 10/11/22 20:33 [From Ritalin] phenobarbital Allergy Hives Verified 10/11/22 20:33 Family History Other Asthma Diabetes Hypertension Kidney disease Surgical History H/O hernia repair Hx of cholecystectomy Hx of tympanostomy tubes Social History household members: family housing: house Smoking Status: Never smoker alcohol intake: never ROS ROS ED ROS Narrative Denies. Review of Systems ROS Unobtainable: Denies due to encephalopathy Constitutional Constitutional ED: Denies chills or fever(s) Eyes Eyes: Denies blurry vision ENT ENT ED: Denies ear pain Cardiovascular Cardiovascular: Denies chest pain Respiratory/Chest Respiratory/Chest: Denies cough or dyspnea Gastrointestinal Gastrointestinal: Denies abdominal pain Genitourinary Genitourinary ED: Denies dysuria Musculoskeletal Musculoskeletal: Denies arthralgias Integumentary Denies abscess Neurologic Neurologic: Denies headache(s) Psychiatric Psychiatric: Denies anxiety Endocrine Endocrinology: Denies polydipsia Hematologic/Lymphatic Hematologic/Lymphatic: Denies easy bleeding Allergic/Immunologic Allergic/Immunologic ED: Denies mouth swelling EXAM Physical Exam Narrative Exam Narrative: 18-year-old male no acute distress. Vital signs stable afebrile. To room and present in the room with the patient. H EENT exam unremarkable. Neck nontender. Lungs clear. Heart regular rhythm no murmur. Abdomen soft nontender. Moving all 4 extremities. Right foot neurovascular intact. Right hip, knee and ankle nontender nonswollen. No redness or warmth. Right foot appears normal. Normal DP pulse. Normal cap refill. Normal touch sensation. He complains of mild discomfort and that he cannot move his right toe normally. There is no swelling. There is no redness. The nail has previously been removed. There is no streaks or pus. No bony deformity. Const Vital Signs: 10/11/22 20:33 Temperature 98.3 F Temperature Source Temporal Pulse Rate 94 Respiratory Rate 16 Blood Pressure 144/82 H Blood Pressure Mean 102 Pulse Ox 96 Positive well nourished and well developed; Negative for cachectic, contractures or unkempt General Appearance ED: well developed and NAD; Negative for unkempt, cachectic or contractures Nutritional Appearance: Negative for cachectic HEENT Reports moist mucous membranes normocephalic and atraumatic; Negative for trauma or tenderness Eyes General Eye ED: Negative for other Neck full ROM and supple Thyroid: Negative for tender or other Lymph Lymphatic: Negative for other Chest Wall inspection of chest normal and palpation of chest normal Chest: Negative for other Resp normal respiratory effort, no retractions and clear to auscultation bilaterally Effort and Inspection: Negative for pain with movement Auscultation: Negative for rales, rhonchi or wheezes Cardio regular rate, regular rhythm, S1 normal heart sound, S2 normal heart sound and no murmurs Rate: Negative for bradycardia or tachycardic Rhythm: Negative for abnormal rhythm Bruits: Negative for other GI non-tender, non-distended and no masses Inspection: Negative for abdominal distention Auscultation: normoactive bowel sounds Palpation: soft; Negative for tender or guarding Back/Spine no CVA tenderness General Back: Negative for CVA tenderness or swelling Cervical Spine: Negative for cervical spine tenderness Extremity normal to inspection and full ROM General Extremety ED: Negative for cyanosis or edema General Extremity: Negative for cyanosis or edema Neuro oriented x3 and CN's II-XII intact bilaterally Sensorium / Orientation: alert, oriented to person and oriented to place Motor Exam: strength 5/5 throughout Psych mental status grossly normal Appearance: Negative for unkempt Speech: No other Mood & Affect: Negative for anxious Skin no wounds Lesions: no lesions Rashes: no rashes Trauma: Negative for abrasion MDM MDM MDM Narrative Medical decision making narrative: Patient complaining of right foot pain. Exam is normal. There is no signs of infection. No deformity. No history of trauma. X-ray of be obtained. There is no puncture wound. This may be secondary to the patient's underlying psychiatric illness and autism. Patient doing well will be discharged to home at 10:15 PM. Radiography Chest X-Ray - ED: Read by ED Physician Diagnostic Testing: Right foot x-ray, 3 views, chart myself shows no acute abnormality. There is some arthritis to the right great toe at the interphalangeal joint. Possibly an old avulsion. No acute fracture. No dislocation. I did go over the x-rays with the patient and family. Discharge Plan Triage Chief Complaint: Lower Extremity Injury ED Provider: Vazquez Miller Dx/Rx/DC Orders Clinical Impression: History of autism, Great toe pain Prescriptions: No Action omeprazole 40 MG capsule 40 mg PO DAILY lamotrigine 200 mg tablet 200 mg PO BID trazodone 50 mg Tablet 50 mg PO QHS paliperidone 6 mg tablet extended release 24hr 6 mg PO QHS Invega Trinza 819 mg/2.63 mL syringe 819 mg IM Q3M Primary Care Provider: Turner Quick Referrals: Turner Quick MD [Primary Care Provider] - As Needed Activity Restrictions/Additional Instructions: X-rays look good. Ice to the foot. Motrin for pain and swelling. Tylenol for pain. This should progressively get better. If not follow-up. Disposition Disposition: Home, Self Care
--- NOTE | 2022-10-11 22:00 | RAD_ITS ---
EXAM: XR RIGHT FOOT COMPLETE, 3 OR MORE VIEWS CLINICAL INDICATION: atraumatic right great toe pain TECHNIQUE: Frontal, lateral and oblique views of the right foot. COMPARISON: No relevant prior studies available. FINDINGS: BONES/JOINTS: Unremarkable. No acute fracture. No subluxation. Normal alignment. Preservation of the joint space. No sclerotic or destructive changes observed. SOFT TISSUES: There is an exostosis with a bony projection from the medial aspect of the proximal third of the distal phalanx of the great toe, measuring roughly 8 mm x 4 mm, with overlying soft tissue swelling. Also a smaller exostosis at the proximal third of the lateral distal phalanx measuring 2 mm on the frontal view. There is also narrowing of the IP joint of the great toe. No radiopaque foreign body. RAD/Foot min 3 Views IMPRESSION: Medial and lateral exostoses or bony projections of the first distal phalanx. No evidence of bone destruction. Mild soft tissue swelling at the distal and medial great toe. Mild narrowing of the IP joint without obvious destructive joint changes or erosions. Electronically Signed: Lisa Reyes MD at 23:48 EDT ,
[2022-10-11 22:22] VITALS: RESP 18
== END 2022-10-11 22:22 | disposition home or self-care (01) ==
LOC: ED 22:20
PROVIDERS: Emergency Provider Emergency Medicine; PCP Family Medicine; Visit Provider Emergency Medicine
DX: F84.0 Autistic disorder (principal); F20.9 Schizophrenia, unspecified; F31.9 Bipolar disorder, unspecified; G40.909 Epilepsy, unspecified, not intractable, without status epilepticus; M79.674 Pain in right toe(s); Z79.899 Other long term (current) drug therapy; Z90.49 Acquired absence of other specified parts of digestive tract
CPT/HCPCS: 73630; 99282

== ENCOUNTER → 2022-11-25 | Outpatient (CLI) | payer MEDICARE, MEDICAID, SELFPAY ==
[2022-11-25 11:20] LABS: AST(SGOT) 9 U/L (15-37); Alanine Aminotransfer ALT/SGPT 25 U/L (16-61); Albumin, Serum 3.6 g/dL (3.2-5.0); Alkaline Phosphatase 81 U/L (45-117); Anion Gap 6 (5-15); BUN 10 mg/dL (7-18); BUN/Creat Ratio 14.3 RATIO (10-20); Calcium,Total 8.8 mg/dL (8.5-10.1); Chloride 111 mmol/L (98-107); Cholesterol 127 mg/dL (200); EST Glomerular Filtration Rate 142 mL/min (>60); Est Glom Filt Rate - Afr Amer 172 mL/min (>60); Globulin 3.6 g/dL (2.2-4.2); Glucose 97 mg/dL (74-106); High Density Lipoprotein 42 mg/dL; Potassium 4.1 mmol/L (3.5-5.1); Protein, Total 7.2 g/dL (6.4-8.2); Sodium Level 141 mmol/L (136-145); Thyroid Stim Hormone (TSH) 0.73 uIU/mL (0.358-3.74); Triglycerides 68 mg/dL; Very Low Density Lipoprotein 14 mg/dL (5-40)
[2022-11-25 11:28] LABS: Lithium < 0.20 mmol/L (0.60-1.20)
== END | disposition home or self-care (01) ==
LOC: LAB 09:33
PROVIDERS: PCP Family Medicine; Referring Provider Registered Nurse; Visit Provider Registered Nurse
DX: F25.0 Schizoaffective disorder, bipolar type (principal); Z79.899 Other long term (current) drug therapy
CPT/HCPCS: 36415; 80053; 80061; 80178; 84443

== ENCOUNTER 2023-03-10 09:41 | Emergency (ER) | payer MEDICARE, MEDICAID, SELFPAY ==
[2023-03-10 09:42] VITALS: BP 155/83; PULSE 92; RESP 18; TEMP 36.4; O2SAT 98; BMI 46.4
--- NOTE | 2023-03-10 09:53 | EX.ED.DYSGE1 ---
HPI History of Present Illness Chief Complaint: Nausea/Vomiting Informant: patient Onset/Context/Timing Onset: Days (4 days) Narrative Narrative: Patient presents secondary to spitting up acid for the past 4 days. He states after he eats symptoms will improve for short time and then returned. He is already on omeprazole. Mother states he has been asking for Zofran for nausea as well. 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 Pneumonia Psychiatric pseudoseizure PTSD (post-traumatic stress disorder) Schizophrenia Seizures Home Medications omeprazole 40 mg capsule,delayed release 40 mg PO DAILY 12/24/15 [History Last Taken Unknown] lamotrigine 200 mg tablet 200 mg PO BID 11/19/20 [History Last Taken Unknown] trazodone 50 mg tablet 50 mg PO QHS 08/17/21 [History Last Taken Unknown] paliperidone 6 mg tablet,extended release 24 hr 6 mg PO QHS 06/02/22 [History Last Taken Unknown] paliperidone palm (3 month) 819 mg/2.63 mL intramuscular syringe (Invega Trinza) 819 mg IM Q3M 06/02/22 [History Last Taken 05/31/22] Allergy/AdvReac Type Severity Reaction Status Date / Time bee venom protein (honey bee) Allergy Anaphylaxis Verified 03/10/23 09:42 carbamazepine [From Tegretol] Allergy Unknown Verified 03/10/23 09:42 divalproex sodium Allergy Other Verified 03/10/23 09:42 [From Depakote] methylphenidate Allergy Unknown Verified 03/10/23 09:42 [From Concerta] methylphenidate HCl Allergy Unknown Verified 03/10/23 09:42 [From Ritalin] phenobarbital Allergy Hives Verified 03/10/23 09:42 Family History Other Asthma Diabetes Hypertension Kidney disease Surgical History H/O hernia repair Hx of cholecystectomy Hx of tympanostomy tubes Social History household members: family housing: house Smoking Status: Never smoker alcohol intake: never ROS ROS ED Constitutional Constitutional ED: Denies chills or fever(s) Eyes Eyes: Denies discharge from eye(s) ENT ENT ED: Denies discharge from eye(s) or sore throat Cardiovascular Cardiovascular: Denies chest pain Respiratory/Chest Respiratory/Chest: Denies cough or dyspnea Gastrointestinal Gastrointestinal: Reports nausea; Denies abdominal pain, diarrhea or vomiting Genitourinary Genitourinary ED: Denies dysuria Musculoskeletal Musculoskeletal: Denies back pain or extremity pain Integumentary Denies Abrasions or rash Neurologic Neurologic: Denies headache(s) or weakness Psychiatric Psychiatric: Denies anxiety or depression Allergic/Immunologic Allergic/Immunologic ED: Denies lip swelling or urticaria EXAM Physical Exam Const Vital Signs: 03/10/23 09:42 Temperature 97.5 F L Temperature Source Temporal Pulse Rate 92 Respiratory Rate 18 Blood Pressure 155/83 H Blood Pressure Mean 107 Pulse Ox 98 Oxygen Delivery Method Room Air Positive well nourished and well developed General Appearance ED: well developed HEENT Reports moist mucous membranes Eyes EOMs intact bilaterally Chest Wall inspection of chest normal and palpation of chest normal Resp normal respiratory effort and clear to auscultation bilaterally Cardio regular rate and regular rhythm GI normal to inspection, nondistended, normoactive bowel sounds and non-tender Extremity normal to inspection Neuro oriented x3 and no sensory deficits noted Motor Exam: strength 5/5 throughout Psych mental status grossly normal Skin no rashes or lesions noted MDM MDM MDM Narrative Medical decision making narrative: Patient be given dose of Zofran along with a GI cocktail. Treatment and Re-Evaluation :: On repeat evaluation patient feels significantly improved. He has Zofran at home that he can take. He will continue his omeprazole. I did recommend taking Maalox or Mylanta once or twice a day as needed for the next couple days to help with stomach acid. I do not feel he needs lab work or imaging studies at this time. Discharge Plan Triage Chief Complaint: Nausea/Vomiting ED Provider: Sisi Zavala Dx/Rx/DC Orders Clinical Impression: Gastroesophageal reflux disease Instructions: ED GERD (Adult) Prescriptions: No Action omeprazole 40 MG capsule 40 mg PO DAILY lamotrigine 200 mg tablet 200 mg PO BID trazodone 50 mg Tablet 50 mg PO QHS paliperidone 6 mg tablet extended release 24hr 6 mg PO QHS Invega Trinza 819 mg/2.63 mL syringe 819 mg IM Q3M Primary Care Provider: Turner Quick Referrals: Turner Quick MD [Primary Care Provider] - 1-2 Weeks Disposition Disposition: Home, Self Care
[2023-03-10] MEDS: Mag Hydrox/Al Hydrox/Simeth 30 ML UDC PO (11:00)
[2023-03-10] MEDS: Ondansetron ODT 4 MG Tablet PO (11:00)
--- OUTSIDE RECORDS SUMMARY | 2023-03-10 11:21 | XMS RPT_ITS | CCD ---
Author Name Unknown Address [id number] [place] [address] Organization [facility] Care Team Providers Care Vp Respiratory Name Role Phone Ashleigh Kaplan Attending Unavailabl e Horrigan, Ashleigh Alysa Attending Unavailabl e Horrigan, Ashleigh Alysa Attending Unavailabl e Horrigan, Ashleigh Alysa Attending Unavailabl e Horrigan, Ashleigh Alysa Attending Unavailabl e Horrigan, Ashleigh Alysa Attending Unavailabl e Horrigan, Ashleigh Alysa Attending Unavailabl e Horrigan, Ashleigh Watt Attending Unavailabl Rich Lance MD Primary Care Provider Rich Quick MD Primary Care Provider Rich Quick MD Primary Care Provider Pacer, Ms. Agata Muñiz Attending Unavailabl e Pacer, Ms. Agata Muñiz Attending Unavailabl e Pacer, Ms. Agata Muñiz Attending Unavailabl e Pacer, Ms. Agata Muñiz Attending Unavailabl e Pacer, Ms. Agata Muñiz Attending Unavailabl e Pacer, Ms. Agata Muñiz Attending Unavailabl RICH Lance Attending Unavailable RICH QUICK Primary Care Unavailable RICH QUICK Referring Unavailable RICH QUICK Primary Care Unavailable RICH QUICK Primary Care Unavailable Enriqueta GRAHAM Attending Unavailable RICH QUICK Primary Care Unavailable FRANCY MITTAL Attending Unavailable RICH QUICK Primary Care Unavailable RICH QUICK Attending Unavailable RICH QUICK Primary Care Unavailable RICH QUICK Referring Unavailable RICH QUICK Primary Care Unavailable RICH QUICK Referring Unavailable RICH QUICK Primary Care Unavailable RICH QUICK Attending Unavailable RICH QUICK Primary Care Unavailable RICH QUICK Attending Unavailable RICH QUICK Primary Care Unavailable RICH QUICK Attending Unavailable RICH QUICK Primary Care Unavailable NIHARIKARICH Primary Care Unavailable JATIN BROWN Referring Unavailable NIHARIKARICH Primary Care Unavailable NIHARIKA, RICH Antunez Primary Care Unavailable NIHARIKARICH Referring Unavailable RICH QUICK Attending Unavailable RICH QUICK Primary Care Unavailable NIHARIKA, RICH Antunez Primary Care Unavailable RICH QUICK Referring Unavailable FERN YAÑEZ Attending Unavailable DANIEL WALDRON Attending Unavailable JATIN BROWN Referring Unavailable NIHARIKA, RICH Antunez Primary Care Unavailable NIHARIKA, RICH Antunez Primary Care Unavailable TESTFERN MARIEE Referring Unavailable NIHARIKA, RICH Antunez Primary Care Unavailable NIHARIKA, RICH Antunez Primary Care Unavailable FERN YAÑEZ Attending Unavailable FERN YAÑEZ Referring Unavailable NIHARIKA, RICH Antunez Primary Care Unavailable NIHARIKARICH Primary Care Unavailable NIHARIKARICH Primary Care Unavailable TESTFERN MARIEE Referring Unavailable NIHARIKARICH Primary Care Unavailable FERN YAÑEZ Attending Unavailable Allergies Allergy Classification Reported Allergen(s) Allergy Type Date of Onset Reaction(s) Facility (20 sources) Methylphenidate; Translations: [METHYLPHENIDATE ANALOGUES] Drug Allergy 07-08-2014 Other: See Comments [facility] (20 sources) Methylphenidate; Translations: [METHYLPHENIDATE HCL] Drug Allergy 01-08-2005 Intolerance [facility] Work Phone: (20 sources) PHENobarbital; Translations: [PHENOBARBITAL] Drug Allergy 01-08-2005 Intolerance [facility] Work Phone: (20 sources) Valproate; Translations: [DIVALPROEX] Drug Allergy 07-08-2020 Intolerance [facility] Medications Current Medications Medication Drug Class(es) Dates Sig (Normalized) Sig (Original) amoxicillin 875 mg / clavulanate 125 mg oral tablet (3 sources) Penicillin-class Antibacterial Start: 12-06-2022 End: 12-11-2022 take 1 tablet by mouth twice daily amoxicillin-clavu lanic acid (AUGMENTIN) 875-125 mg per tablet Indications: Acute non-recurrent sinusitis, unspecified location Take 1 tablet by mouth two times a day for 5 days. 10 tablet 0 12/06/2022 12/11/2022 Active Completed/Discontinued Medications Medication Drug Class(es) Dates Sig (Normalized) Sig (Original) [id number] 200 actuat albuterol 0.09 mg/actuat metered dose inhaler (20 sources) beta2-Adrenergic Agonist Start: 08-31-2022 take 2 puff(s) by inhalation every six hours as needed albuterol HFA (PROAIR HFA) 90 mcg/actuation inhaler Inhale 2 Puffs as instructed every 6 hours as needed. 18 g 0 08/31/2022 Active Problems Active Problems Problem Classification Problem Date Documented Date Episodic/Chronic Asthma (20 sources) Mild intermittent asthma; Translations: [Mild intermittent asthma, uncomplicated] Onset: 01-30-2016 01-30-2016 Chronic Attention-deficit, conduct, and disruptive behavior disorders (20 sources) Attention deficit hyperactivity disorder; Translations: [Attention-deficit hyperactivity disorder, unspecified type] 01-13-2015 Chronic Disorders usually diagnosed in infancy, childhood, or adolescence (20 sources) Asperger's disorder; Translations: [Asperger's syndrome] Onset: 10-02-2015 03-08-2017 Chronic E Codes: Natural/environment (3 sources) Repetitive motion disorder; Translations: [Overexertion from repetitive movements, initial encounter] Onset: 12-17-2022 12-17-2022 Episodic Esophageal disorders (20 sources) Gastroesophageal reflux disease; Translations: [Gastro-esophageal reflux disease without esophagitis] Onset: 01-30-2016 01-30-2016 Chronic Immunity disorders (20 sources) Selective immunoglobulin dysfunction; 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, unspecified] 01-08-2005 Chronic Miscellaneous mental health disorders (20 sources) Dissociative convulsions; Translations: [Conversion disorder with seizures or convulsions] Onset: 10-02-2015 02-23-2021 Chronic Nervous system congenital anomalies (11 sources) Partial agenesis of corpus callosum; 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] Onset: 11-03-2022 11-03-2022 Chronic Other aftercare (1 source) Patient encounter status; Translations: [Encounter for therapeutic drug level monitoring] Episodic Other connective tissue disease (6 sources) Pain of toe of right foot; Translations: [Pain in right toe(s)] 10-13-2022 Episodic Other connective tissue disease (1 source) Pain in right toe(s); Translations: [Pain of toe of right foot] Onset: 11-03-2022 Episodic Other connective tissue disease (1 source) Pain in right foot; Translations: [Pain in right foot] 01-03-2023 Episodic Other ear and sense organ disorders (2 sources) Impacted cerumen of bilateral ears; Translations: [Impacted cerumen, bilateral] Episodic Other ear and sense organ disorders (2 sources) Otalgia, right ear; Translations: [Otalgia, unspecified] Onset: 10-20-2022 10-20-2022 Episodic Other ear and sense organ disorders (1 source) Impacted cerumen in right ear; Translations: [Impacted cerumen, right ear] 10-20-2022 Episodic Other ear and sense organ disorders (1 source) Impacted cerumen, right ear; Translations: [Impacted cerumen of right ear] Onset: 10-20-2022 Episodic Other nervous system disorders (1 source) Other chronic pain; Translations: [Chronic pain of both knees] Onset: 10-01-2022 Chronic Other nutritional; endocrine; and metabolic disorders (20 sources) Morbid obesity; Translations: [Morbid (severe) obesity due to excess calories] Onset: 01-30-2016 01-30-2016 Chronic Other upper respiratory infections (3 sources) Acute upper respiratory infection; Translations: [Acute upper respiratory infection, unspecified] Episodic Otitis media and related conditions (1 source) Acute left otitis media; Translations: [Otitis media, unspecified, left ear] Episodic Unclassified (20 sources) PMH - PAST MEDICAL HISTORY OF 01-08-2005 Viral infection (1 source) Disease caused by 2019-nCoV; Translations: [COVID-19] Episodic Past or Other Problems Problem Classification Problem Date Documented Da te Episodic/Chronic Abdominal pain (11 sources) Epigastric pain; Translations: [Epigastric pain] Onset: 06-29-2022 Episodic Calculus of urinary tract (2 sources) History of calculus of kidney; Translations: [Personal history of urinary calculi] Onset: 03-24-2022 Episodic Chronic obstructive pulmonary disease and bronchiectasis (3 sources) Bronchitis; Translations: [Bronchitis, not specified as acute or chronic] Onset: 09-03-2022 09-03-2022 Episodic Genitourinary symptoms and ill-defined conditions (5 sources) Dysuria; Translations: [Dysuria] Onset: 03-24-2022 Episodic Other aftercare (1 source) Encounter for therapeutic drug level monitoring; Translations: [Medication monitoring encounter] Onset: 06-29-2022 Episodic Other non-traumatic joint disorders (1 source) Pain in right knee; Translations: [Chronic pain of both knees] Onset: 10-01-2022 Episodic Other non-traumatic joint disorders (1 source) Pain in left knee; Translations: [Chronic pain of both knees] Onset: 10-01-2022 Episodic Spondylosis; intervertebral disc disorders; other back problems (20 sources) Neck pain; Translations: [Cervicalgia] Onset: 07-26-2018 07-26-2018 Episodic Superficial injury; contusion (20 sources) Contusion of right knee; Translations: [Contusion of right knee, initial encounter] Onset: 07-26-2018 07-26-2018 Episodic Results Test Name Value Interpretation Reference Range Facil ity Vital Signs Date Time Vital Sign Value Performing Clinician Faci litandrea 12-06-2022 14:01-0400 Body temperature 98.49 [degF] Jatin Brown MD Work Phone: [facility] 12-06-2022 14:01-0400 Body weight 143.34 kg Jatin Brown MD Work Phone: [facility] 12-06-2022 14:01-0400 Diastolic blood pressure 66 mm[Hg] Jatin Brown MD Work Phone: [facility] 12-06-2022 14:01-0400 Heart rate 102 /min Jatin Brown MD Work Phone: [facility] 12-06-2022 14:01-0400 Respiratory rate 16 /min Jatin Brown MD Work Phone: [facility] 12-06-2022 14:01-0400 SaO2% (BldA) [Mass fraction] 95 % Jatin Brown MD Work Phone: [facility] 12-06-2022 14:01-0400 Systolic blood pressure 124 mm[Hg] Jatin Brown MD Work Phone: [facility] 10-20-2022 16:22-0400 Body weight 141.34 kg Rich Quick MD Work Phone: [facility] 10-20-2022 16:22-0400 Diastolic blood pressure 62 mm[Hg] Rich Quick MD Work Phone: [facility] 10-20-2022 16:22-0400 Heart rate 87 /min Rich Quick MD Work Phone: [facility] 10-20-2022 16:22-0400 Respiratory rate 16 /min Rich Quick MD Work Phone: [facility] 10-20-2022 16:22-0400 SaO2% (BldA) [Mass fraction] 97 % Rich Quick MD Work Phone: [facility] 10-20-2022 16:22-0400 Systolic blood pressure 112 mm[Hg] Rich Quick MD Work Phone: [facility] 10-13-2022 16:22-0400 Body weight 139.71 kg Rich Quick MD Work Phone: [facility] 10-13-2022 16:22-0400 Diastolic blood pressure 75 mm[Hg] Rich Quick MD Work Phone: [facility] 10-13-2022 16:22-0400 Heart rate 100 /min Rich Quick MD Work Phone: [facility] 10-13-2022 16:22-0400 SaO2% (BldA) [Mass fraction] 96 % Rich Quick MD Work Phone: [facility] 10-13-2022 16:22-0400 Systolic blood pressure 112 mm[Hg] Rich Quick MD Work Phone: [facility] 09-13-2022 15:14-0400 Body weight 138.8 kg Rich Quick MD Work Phone: [facility] 09-13-2022 15:14-0400 Diastolic blood pressure 74 mm[Hg] Rich Quick MD Work Phone: [facility] 07-17-2023 15:14-0400 Heart rate 101 /min Rich Quick MD Work Phone: [facility] 09-13-2022 15:14-0400 SaO2% (BldA) [Mass fraction] 95 % Rich Quick MD Work Phone: [facility] 09-13-2022 15:14-0400 Systolic blood pressure 110 mm[Hg] Rich Quick MD Work Phone: [facility] 09-03-2022 16:05-0400 Body height 185.4 cm Rich Quick MD Work Phone: [facility] 09-03-2022 16:05-0400 Body temperature 99.81 [degF] Rich Quick MD Work Phone: [facility] 09-03-2022 16:05-0400 Body weight 141.16 kg Rich Quick MD Work Phone: [facility] 09-03-2022 16:05-0400 Diastolic blood pressure 64 mm[Hg] Rich Quick MD Work Phone: [facility] 09-03-2022 16:05-0400 Heart rate 95 /min Rich Quick MD Work Phone: [facility] 09-03-2022 16:05-0400 SaO2% (BldA) [Mass fraction] 95 % Rich Quick MD Work Phone: [facility] 09-03-2022 16:05-0400 Systolic blood pressure 108 mm[Hg] Rich Quick MD Work Phone: [facility] 08-19-2022 10:33-0400 Body temperature 98.8 [degF] Krislyn Aberegg PA Work Phone: [facility] 08-19-2022 10:33-0400 Body weight 140.07 kg Krislyn Aberegg PA Work Phone: [facility] 08-19-2022 10:33-0400 Diastolic blood pressure 68 mm[Hg] Krislyn Aberegg PA Work Phone: [facility] 08-19-2022 10:33-0400 Heart rate 122 /min Krislyn Aberegg PA Work Phone: [facility] 08-19-2022 10:33-0400 Respiratory rate 20 /min Krislyn Aberegg PA Work Phone: [facility] 08-19-2022 10:33-0400 SaO2% (BldA) [Mass fraction] 96 % Krislyn Aberegg PA Work Phone: [facility] 08-19-2022 10:33-0400 Systolic blood pressure 112 mm[Hg] Krislyn Aberegg PA Work Phone: [facility] 08-17-2022 14:11-0400 Body height 185.4 cm Krislyn Aberegg PA Work Phone: [facility] 08-17-2022 14:11-0400 Body temperature 100.4 [degF] Krislyn Aberegg PA Work Phone: [facility] 08-17-2022 14:11-0400 Body weight 140.16 kg Krislyn Aberegg PA Work Phone: [facility] 08-17-2022 14:11-0400 Diastolic blood pressure 72 mm[Hg] Krislyn Aberegg PA Work Phone: [facility] 08-17-2022 14:11-0400 Heart rate 112 /min Krislyn Aberegg PA Work Phone: [facility] 08-17-2022 14:11-0400 Respiratory rate 16 /min Krislyn Aberegg PA Work Phone: [facility] 08-17-2022 14:11-0400 Systolic blood pressure 128 mm[Hg] Krislyn Aberegg PA Work Phone: [facility] 07-01-2022 16:12-0400 Body height 185.4 cm Rich Quick MD Work Phone: [facility] 07-01-2022 16:12-0400 Body weight 144.24 kg Rich Quick MD Work Phone: [facility] 07-01-2022 16:12-0400 Diastolic blood pressure 70 mm[Hg] Rich Quick MD Work Phone: [facility] 07-01-2022 16:12-0400 Heart rate 79 /min Rich Quick MD Work Phone: [facility] 07-01-2022 16:12-0400 SaO2% (BldA) [Mass fraction] 96 % Rich Quick MD Work Phone: [facility] 07-01-2022 16:12-0400 Systolic blood pressure 112 mm[Hg] Rich Quick MD Work Phone: [facility] 06-29-2022 16:13-0400 Body height 185.4 cm Rich Quick MD Work Phone: [facility] 06-29-2022 16:13-0400 Body temperature 97 [degF] Rich Quick MD Work Phone: [facility] 06-29-2022 16:13-0400 Body weight 144.24 kg Rich Quick MD Work Phone: [facility] 06-29-2022 16:13-0400 Diastolic blood pressure 62 mm[Hg] Rich Quick MD Work Phone: [facility] 06-29-2022 16:13-0400 Heart rate 78 /min Rich Quick MD Work Phone: [facility] 06-29-2022 16:13-0400 SaO2% (BldA) [Mass fraction] 96 % Rich Quick MD Work Phone: [facility] 06-29-2022 16:13-0400 Systolic blood pressure 90 mm[Hg] Rich Quick MD Work Phone: [facility] 03-24-2022 11:32-0500 Body temperature 97.7 [degF] Jatin Brown MD Work Phone: [facility] 03-24-2022 11:32-0500 Body weight 146.06 kg Jatin Brown MD Work Phone: [facility] 03-24-2022 11:32-0500 Diastolic blood pressure 80 mm[Hg] Jatin Brown MD Work Phone: [facility] 03-24-2022 11:32-0500 Heart rate 116 /min Jatin Brown MD Work Phone: [facility] 03-24-2022 11:32-0500 Respiratory rate 18 /min Jatin Brown MD Work Phone: [facility] 03-24-2022 11:32-0500 SaO2% (BldA) [Mass fraction] 96 % Jatin Brown MD Work Phone: [facility] 03-24-2022 11:32-0500 Systolic blood pressure 122 mm[Hg] Jatin Brown MD Work Phone: [facility] 05-25-2021 10:32-0400 Body temperature 97.59 [degF] Jatin Brown MD Work Phone: [facility] 05-25-2021 10:32-0400 Body weight 138.8 kg Jatin Brown MD Work Phone: [facility] 05-25-2021 10:32-0400 Diastolic blood pressure 72 mm[Hg] Jatin Brown MD Work Phone: [facility] 05-25-2021 10:32-0400 Heart rate 104 /min Jatin Brown MD Work Phone: [facility] 05-25-2021 10:32-0400 Respiratory rate 20 /min Jatin Brown MD Work Phone: [facility] 05-25-2021 10:32-0400 SaO2% (BldA) [Mass fraction] 96 % Jatin Brown MD Work Phone: [facility] 05-25-2021 10:32-0400 Systolic blood pressure 122 mm[Hg] Jatin Brown MD Work Phone: [facility] Encounters Encounter Date Encounter Type Care Provider Facility Start: 01-03-2023 End: 01-03-2023 ambulatory RICH QUICK Facility:[facility] Start: 01-03-2023 End: 01-03-2023 Patient encounter procedure Fern Guadalupeglenis Work Phone: Podiatry Procedures Date Procedure Procedure Detail Performing Clinician Start: 12-17-2022 Radex ankle complete minimum 3 views Fern Guadalupeguido Work Phone: Start: 12-06-2022 Sars-cov-2 detection by dna/rna Jatin Brown MD Work Phone: Start: 11-03-2022 Radex foot complete minimum 3 views Fern Guadalupeguido Work Phone: Start: 08-17-2022 STREP A MOLECULAR (POC) Michelle Wang PILE OPERATOR[employer] Work Phone: Start: 03-24-2022 Urnls dip stick/tabl et rgnt auto w/o microscopy Jina Marion PILE OPERATOR.[employer] Work Phone: Start: 04-27-2018 End: 04-27-2018 Electrocardiogram Start: 03-06-2015 Adult depression scr eening assessment Jatin Brown MD Work Phone: Plan of Treatment Date Care Activity Detail Author Start: 07-29-2026 Urine microalbumin profile [facility] Start: 10-21-2023 ANNUAL PCP TEAM HAY BALER ANDER DISEASE VISIT ANNUAL PCP TEAM CHRONIC DISEASE VISIT [facility] Start: 10-14-2023 ANNUAL PCP TEAM HAY BALER ANDER DISEASE VISIT ANNUAL PCP TEAM CHRONIC DISEASE VISIT [facility] Start: 09-14-2023 ANNUAL PCP TEAM HAY BALER ANDER DISEASE VISIT ANNUAL PCP TEAM CHRONIC DISEASE VISIT [facility] Start: 09-04-2023 ANNUAL PCP TEAM HAY BALER ANDER DISEASE VISIT ANNUAL PCP TEAM CHRONIC DISEASE VISIT [facility] Start: 07-02-2023 ANNUAL PCP TEAM HAY BALER ANDER DISEASE VISIT ANNUAL PCP TEAM CHRONIC DISEASE VISIT [facility] Start: 06-30-2023 ANNUAL PCP TEAM HAY BALER ANDER DISEASE VISIT ANNUAL PCP TEAM CHRONIC DISEASE VISIT [facility] Start: 02-01-2023 ANNUAL PCP TEAM HAY BALER ANDER DISEASE VISIT ANNUAL PCP TEAM CHRONIC DISEASE VISIT [facility] Start: 10-29-2022 Covid-19 Vaccine ( season) Covid-19 Vaccine () [facility] Start: 10-29-2022 Influenza vaccination [facility] Start: 06-29-2022 End: 08-29-2022 Bacteria identified in Urine by Culture [facility] Work Phone: Immunizations Immunization Date Immunization Notes Care Provider Fa ifeanyi 12-23-2020 influenza, injectabl e, quadrivalent, contains preservative Jatin Brown MD Work Phone: [facility] 12-23-2020 influenza virus vaccine, unspecified formulation Rich Quick MD Work Phone: [facility] 12-22-2017 influenza, injectabl e, quadrivalent, preservative free Jatin Brown MD Work Phone: [facility] 01-14-2017 influenza, injectabl e, quadrivalent, contains preservative Jatin Brown MD Work Phone: [facility] 07-29-2016 tetanus toxoid, redu dexter diphtheria toxoid, and acellular pertussis vaccine, adsorbed Jatin Brown MD Work Phone: [facility] Work Phone: 12-12-2014 influenza, seasonal, injectable Jatin Brown MD Work Phone: [facility] 12-24-2013 influenza, seasonal, injectable Jatin Brown MD Work Phone: [facility] Payers Date Payer Category Payer Medicaid [id number] 2020 Medicaid MEDICAID [facility] MEDICAID [id number] 2020-Present [phone] [address] [place] [address] Medicaid [id number] 2020 Medicaid MEDICAID [facility] MEDICAID [id number] 2020-Present [phone] [address] [place] [address] Medicaid [id number] 2018 Unknown MEDPAY MEDPAY xx [id number] 2018-Present [address] [place] [address] Indemnity [id number] 2017 Medicare [id number] 2017 Medicare MEDICARE MEDICAR E A AND B [id number] 2017-Present [phone] [place] [address] Medicare [id number] 2017 Medicare MEDICARE MEDICAR E A AND B [id number] 2017-Present [phone] [place] [address] Medicare [id number] 1993 Unknown [id number] 1993 Unknown [id number] 1993 Unknown [id number] 1993 Unknown [id number] 1993 Unknown [id number] 1993 Unknown [id number] [id number] 1993 Unknown [id number] 1993 Unknown [id number] [id number] 1993 Unknown [id number] 1993 Unknown [id number] 1993 Unknown [id number] 1993 Unknown [id number] 1993 Unknown [id number] 1993 Unknown [id number] 1993 Unknown [id number] Unknown [id number] Unknown [id number] Unknown [id number] Social History Date Type Detail Facility Start: 12-07-2013 Tobacco smoking stat [facility] Never smoked tobacco [facility] Work Phone: Start: 05-25-2021 End: 11-03-2022 Alcohol intake Current non-drinker of alcohol (finding) [facility] Start: 1995 Sex Assigned At Not on file [facility] Start: 05-15-2021 End: 05-25-2021 Exposure to SARS-CoV-2 (event) Not sure [facility] Work Phone: Start: 12-07-2013 Tobacco use and exposure Smoke less tobacco non-user [facility] Start: 02-01-2022 History SDOH Alcohol Frequency 1 [facility] Start: 02-01-2022 History SDOH Alcohol Std Drinks 0 [facility] Start: 02-01-2022 History SDOH Social Connections Phone 4 [facility] Start: 02-01-2022 History SDOH Social Connections Get Together 5 [facility] Start: 02-01-2022 History SDOH Social Connections Tenriism 3 [facility] Start: 02-01-2022 History SDOH Social Connections Meetings 2 [facility] Start: 02-01-2022 History SDOH Social Connections Living 7 [facility] Start: 02-01-2022 End: 01-03-2023 History of Social function [facility] Start: 02-01-2022 End: 01-03-2023 Social connection and isolation panel [facility] Do you belong to any clubs or organizations such as restoration groups, unions, fraternal or athletic groups, or school groups? Yes [facility] Are you now , , , , never or living with a partner? Never [facility] How often to you hav e a drink containing alcohol? Never [facility] How many standard dr inks containing alcohol do you have on a typical day? Patient does not drink [facility] How hard is it for y ou to pay for the very basics like food, housing, medical care, and heating Not very hard [facility] Do you feel stress - tense, restless, nervous, or anxious, or unable to sleep at night because your mind is troubled all the time - these days [OSQ] Not at all [facility] (I/We) worried wheaminah er (my/our) food would run out before (I/we) got money to buy more. Sometimes true [facility] The food that (I/we) bought just didn't last, and (I/we) didn't have money to get more. Often true [facility] In the past 12 month s, was there a time when you were not able to pay the mortgage or rent on time? No [facility] Start: 12-17-2022 End: 01-03-2023 Alcohol intake Lifetime non-drinker (finding) [facility] Clinical Notes 04-09-2015 to 01-03-2023 Nadia Eaton LPN - 01/03/2023 2:59 PM Fern Berrios - 01/03/2023 2:42 PM Ashleigh Reyes RN - 01/03/2023 2:17 PM ESTPatient Ashleigh John RN - 12/17/2022 2:22 PM EDT Note Date & Type Note Facility 01-03-2023 Note HNO ID: [id number] Author: Nadia Eaton LPN Service: ? Author Type: LICENSED NURSE Type: Progress Notes Filed: 01/03/2023 10:03 PM Note Text: Per Dr. Yañez, Levy was provided with replacement Aircast, size L, and instructed/educated in its application, wear, and care. All questions were answered, and patient was able to demonstrate competence with the necessary skills to utilize the above equipment. Replacement cost will be handled through [facility]. Nadia Eaton LPN [facility] 01-03-2023 Note HNO ID: [id number] Author: Fern Yañez Service: ? Author Type: Physician Type: Progress Notes Filed: 01/03/2023 10:03 PM Note Text: FOLLOW UP PODIATRIC OFFICE VISIT Chief Complaint: This 27 year old who presents for follow up:right foot pain Patient presents to clinic for follow-up right foot pain. Most of his pain is located to the right midfoot along 4th/5th metatarsal base. Is using boot. The pain was improving with the boot but over the weekend, he bumped his exercise bike without using the boot. Since then, the foot is now 7/10. He states the pain is now intermittent He has no pain to his great toe. 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 mom lost 6 before him. premature labor. delivered emergency because cord wrapped around his neck . born 8 lbs. went home with mom. PMH - PAST MEDICAL HISTORY OF HIGH FUNCTIONING AUTISM PMH - PAST MEDICAL HISTORY OF PRIMARY IMMUNE DEFICENCY Pseudoseizure 2015 Current Outpatient Medications Medication Sig dicyclomine (BENTYL) 10 mg capsule Take 1 capsule by mouth before meals and at bedtime. fluticasone (FLONASE) 50 mcg/actuation nasal spray Use 2 Sprays in each nostril once daily. Rinse mouth after use. omeprazole (PRILOSEC) 40 mg capsule Take 1 capsule by mouth once daily. albuterol HFA (PROAIR HFA) 90 mcg/actuation inhaler Inhale 2 Puffs as instructed every 6 hours as needed. benztropine (COGENTIN) 0.5 mg tablet Take 0.5 mg by mouth twice daily. hydrOXYzine pamoate (VISTARIL) 25 mg capsule Take 25 mg by mouth. lithium carbonate (ESKALITH) 300 mg capsule Take 300 mg by mouth two times a day. sertraline (ZOLOFT) 100 mg tablet Take 100 mg by mouth once daily. traZODone (DESYREL) 50 mg tablet Take 150 mg by mouth daily at bedtime. ondansetron orally disintegrating (ZOFRAN ODT) 4 mg disintegrating tablet Take 1 tablet by mouth every 8 hours as needed for Nausea/Vomiting. albuterol HFA (PROVENTIL HFA, VENTOLIN HFA) 90 mcg/actuation inhaler Inhale 2 Puffs as instructed every 4 hours as needed. fluticasone (FLOVENT HFA) 110 mcg/actuation inhaler Inhale 2 Puffs as instructed twice daily. (Patient taking differently: Inhale 2 Puffs as instructed as needed.) INVEGA SUSTENNA 234 mg/1.5 mL syrg Inject 234 Units intramuscularly every 4 weeks. Every three months lamoTRIgine (LAMICTAL) 150 mg tablet Take 1 tablet by mouth twice daily. meloxicam (MOBIC) 7.5 mg tablet Take 1 tablet by mouth once daily. Take with food. (Patient not taking: Reported on 11/03/2022) benzonatate (TESSALON PERLES) 100 mg capsule Take 2 capsules by mouth three times daily as needed for cough. (Patient not taking: Reported on 01/03/2023) No current facility-administered medications for this visit. ALLERGIES Allergen Reactions Concerta [Methylphe* Other: See Comments hyper Depakote [Divalproe* Intolerance Phenobarbital Intolerance Ritalin [Methylphen* Intolerance hyper PAST SURGICAL HISTORY Procedure Laterality Date LAPAROSCOPY SURG CHOLECYSTECTOMY 01/26/2021 MYRINGOTOMY ASPIRAND/EUSTACHIAN TUBE NFLTJ ANES Myringotomy/tubes PAST SURGICAL HISTORY OF toe spur REMOVAL GALLBLADDER 01/26/2021 RPR UMBILICAL HERNIA < 5 YRS REDUCIBLE Hernia repair, umbilical - repair of diastasis recti Physical Exam: OBJECTIVE: Constitutional: Pt is a well developed 27 year old male who is alert, oriented, cooperative and in no apparent distress. Eyes: Following during examination. No redness or drainage. Respiratory: RR normal and nonlabored. Even breathing. No evidence of distress. Psychology: Patient is engaged during conversation. Normal affect and mood. Does not appear depressed or anxious. NVSI unchanged from previous visit. Dermatological: Nails 1-5 b/l are normal. Webspaces clean and dry 1-4 b/l. Skin appears well hydrated and supple. good color, texture, turgor. No open lesions present. No callosities present. Musculoskeletal/Orthopaedic: Patient has pain to palpation of right lateral midfoot No pain to right great toe No bruising. Minimal swelling of b/l feet. Mmt is 5/5 for plantarflexion, dorsiflexion, inversion and eversion. Past x (more content not included)... [facility] 01-03-2023 Note HNO ID: [id number] Author: Ashleigh Hays RN Service: ? Author Type: Registered Nurse Type: Progress Notes Filed: 01/03/2023 10:03 PM Note Text: AMB ROOMING INTAKE FLOWSHEET DATA Pain Pain Level: 7 Pain Location: Ankle-Right Description: Crushing, Pressure, Sore Duration Amount of Time: 3 Duration Units: Days Frequency: Continuous Intervention/Comfort measure: Medication Patient presents with: Right Foot - Established Patient, Follow Up, Pain Patient presents right foot repetitive stress injury. States that he hit his foot without his boot on over the weekend so the pain is worse than it had been. [facility] 01-03-2023 History of Present illness Narrative Per Dr. Yañez, Levy was provided with replacement Aircast, size L, and instructed/educated in its application, wear, and care. All questions were answered, and patient was able to demonstrate competence with the necessary skills to utilize the above equipment. Replacement cost will be handled through [facility]. Nadia Eaton, BRASS MOLDER Images from the original note were not included. FOLLOW UP PODIATRIC OFFICE VISIT Chief Complaint: This 27 year old who presents for follow up:right foot pain Patient presents to clinic for follow-up right foot pain. Most of his pain is located to the right midfoot along 4th/5th metatarsal base. Is using boot. The pain was improving with the boot but over the weekend, he bumped his exercise bike without using the boot. Since then, the foot is now 7/10. He states the pain is now intermittent He has no pain to his great toe. 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 mom lost 6 before him. premature labor. delivered emergency because cord wrapped around his neck . born 8 lbs. went home with mom. PMH - PAST MEDICAL HISTORY OF HIGH FUNCTIONING AUTISM PMH - PAST MEDICAL HISTORY OF PRIMARY IMMUNE DEFICENCY Pseudoseizure 2015 Current Outpatient Medications Medication Sig dicyclomine (BENTYL) 10 mg capsule Take 1 capsule by mouth before meals and at bedtime. fluticasone (FLONASE) 50 mcg/actuation nasal spray Use 2 Sprays in each nostril once daily. Rinse mouth after use. omeprazole (PRILOSEC) 40 mg capsule Take 1 capsule by mouth once daily. albuterol HFA (PROAIR HFA) 90 mcg/actuation inhaler Inhale 2 Puffs as instructed every 6 hours as needed. benztropine (COGENTIN) 0.5 mg tablet Take 0.5 mg by mouth twice daily. hydrOXYzine pamoate (VISTARIL) 25 mg capsule Take 25 mg by mouth. lithium carbonate (ESKALITH) 300 mg capsule Take 300 mg by mouth two times a day. sertraline (ZOLOFT) 100 mg tablet Take 100 mg by mouth once daily. traZODone (DESYREL) 50 mg tablet Take 150 mg by mouth daily at bedtime. ondansetron orally disintegrating (ZOFRAN ODT) 4 mg disintegrating tablet Take 1 tablet by mouth every 8 hours as needed for Nausea/Vomiting. albuterol HFA (PROVENTIL HFA, VENTOLIN HFA) 90 mcg/actuation inhaler Inhale 2 Puffs as instructed every 4 hours as needed. fluticasone (FLOVENT HFA) 110 mcg/actuation inhaler Inhale 2 Puffs as instructed twice daily. (Patient taking differently: Inhale 2 Puffs as instructed as needed.) INVEGA SUSTENNA 234 mg/1.5 mL syrg Inject 234 Units intramuscularly every 4 weeks. Every three months lamoTRIgine (LAMICTAL) 150 mg tablet Take 1 tablet by mouth twice daily. meloxicam (MOBIC) 7.5 mg tablet Take 1 tablet by mouth once daily. Take with food. (Patient not taking: Reported on 11/03/2022) benzonatate (TESSALON PERLES) 100 mg capsule Take 2 capsules by mouth three times daily as needed for cough. (Patient not taking: Reported on 01/03/2023) No current facility-administered medications for this visit. ALLERGIES Allergen Reactions Concerta [Methylphe* Other: See Comments hyper Depakote [Divalproe* Intolerance Phenobarbital Intolerance Ritalin [Methylphen* Intolerance hyper PAST SURGICAL HISTORY Procedure Laterality Date LAPAROSCOPY SURG CHOLECYSTECTOMY 01/26/2021 MYRINGOTOMY ASPIR&/EUSTACHIAN TUBE NFLTJ ANES Myringotomy/tubes PAST SURGICAL HISTORY OF toe spur REMOVAL GALLBLADDER 01/26/2021 RPR UMBILICAL HERNIA < 5 YRS REDUCIBLE Hernia repair, umbilical - repair of diastasis recti Physical Exam: OBJECTIVE: Constitutional: Pt is a well developed 27 year old male who is alert, oriented, cooperative and in no apparent distress. Eyes: Following during examination. No redness or drainage. Respiratory: RR normal and nonlabored. Even breathing. No evidence of distress. Psychology: Patient is engaged during conversation. Normal affect and mood. Does not appear depressed or anxious. NVSI unchanged from previous visit. Dermatological: Nails 1-5 b/l are normal. Webspaces clean and dry 1-4 b/l. Skin appears well hydrated and supple. good color, texture, turgor. No open lesions present. No callosities present. Musculoskeletal/Orthopaedic: Patient has pain to palpation of right lateral midfoot No pain to right great toe No bruising. Minimal swelling of b/l feet. Mmt is 5/5 for plantarflexion, dorsiflexion, inversion and eversion. Past xrays are negative for fracture ASSESSMENT: (M79.674) Pain of toe of right foot (primary encounter diagnosis) (M79.671) Right foot pain PLAN: Pain in right foot has resolved. Still intermittent pain. Would continue with firm supportive tennis shoe. Ok to transition into sneaker Nsaids prn for pain. If pain returns, consider mri F/u prn Fern Yañez DPM AMB ROOMING INTAKE FLOWSHEET DATA Pain Pain Level: 7 Pain Location: Ankle-Right Description: Crushing, Pressure, Sore Duration Amount of Time: 3 Duration Units: Days Frequency: Continuous Intervention/Comfort measure: Medication Patient presents with: Right Foot - Established Patient, Follow Up, Pain Patient presents right foot repetitive stress injury. States that he hit his foot without his boot on over the weekend so the pain is worse than it had been. documented in this encounter [facility] 01-03-2023 Instructions Fern Yañez - 01/03/2023 2:49 PM EST Transition to shoe Tylenol twice daily Ice foot in cold water bath tub x 10 minutes twice daily If pain fails to improve within the next 2-3 weeks, return to boot and call Dr. Yañez documented in this encounter [facility] 12-28-2022 Miscellaneous Notes Patient has been identified by name and date of : Yes, Provider Dr Quick Date 12/28/22 Parent/Guardian phones for refill(s): Requested Prescriptions Pending Prescriptions Disp Refills dicyclomine (BENTYL) 10 mg capsule 120 capsule 0 Sig: Take 1 capsule by mouth before meals and at bedtime. Date of last office visit in primary care: 10/20/2022 Date of next office visit in primary care: None scheduled Last 2 Encounter Wt Readings: Date: Wt: 12/06/2022 143.3 kg (316 lb) 10/20/2022 141.3 kg (311 lb 9.6 oz) Please advise. Thank you. Kely Cerna LPN. documented in this encounter [facility] 12-17-2022 Note HNO ID: [id number] Author: Leah Guillen RT(R) Service: ? Author Type: Pipe And Test Supervisor Type: Progress Notes Filed: 12/17/2022 2:46 PM Note Text: Radiology Service Progress Note PATIENT NAME: Levy Todd DATE OF SERVICE: December 17, 2022 TIME: 2:24 PM PATIENT IDENTITY VERIFICATION COMPLETED USING TWO (2) IDENTIFIERS: Name and Date of confirmed by patient verbally. FALL SCREENING: Has the patient had 2 falls in the last year or 1 fall with injury or currently using an Ambulatory Assistive Device (Walker, Cane, Wheelchair, Crutches, etc.)? No PATIENT GENDER DATA: Male PATIENT RELEVANT IMPLANT DATA REVIEWED: Yes RADIOLOGY DEPARTMENT: General X-ray: Exam(s) Completed: Lower Extremity X-Ray(s): Ankle, Right and Foot, Right PERIPHERAL IV DATA: Not applicable SIGNED BY: RT Annette(R) December 17, 2022 2:24 PM [facility] 12-17-2022 Note HNO ID: [id number] Author: Ashleigh Hays RN Service: ? Author Type: Registered Nurse Type: Progress Notes Filed: 12/17/2022 3:30 PM Note Text: Per Dr. Yañez Levy was provided with Pneumatic walking boot, size Large, and instructed/educated in its application, wear, and care. All questions were answered, and patient was able to demonstrate competence with the necessary skills to utilize the above equipment. Patient signed DJO Patient agreement. Vonda to bill patient's insurance for product. Ashleigh Hays RN [facility] 12-17-2022 Note HNO ID: [id number] Author: Fern Yañez Service: ? Author Type: Physician Type: Progress Notes Filed: 12/17/2022 3:30 PM Note Text: FOLLOW UP PODIATRIC OFFICE VISIT Chief Complaint: This 27 year old who presents for follow up:right great toe pain Patient presents to clinic for follow-up right great toe pain. Patient states the pain in his great toe is still present but is getting better. Patient states he got a larger shoe and that has helped Patient now complaining of right foot and ankle pain x 1 week He denies any injury. 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 mom lost 6 before him. premature labor. delivered emergency because cord wrapped around his neck . born 8 lbs. went home with mom. PMH - PAST MEDICAL HISTORY OF HIGH FUNCTIONING AUTISM PMH - PAST MEDICAL HISTORY OF PRIMARY IMMUNE DEFICENCY Pseudoseizure 2015 Current Outpatient Medications Medication Sig fluticasone (FLONASE) 50 mcg/actuation nasal spray Use 2 Sprays in each nostril once daily. Rinse mouth after use. omeprazole (PRILOSEC) 40 mg capsule Take 1 capsule by mouth once daily. benzonatate (TESSALON PERLES) 100 mg capsule Take 2 capsules by mouth three times daily as needed for cough. albuterol HFA (PROAIR HFA) 90 mcg/actuation inhaler Inhale 2 Puffs as instructed every 6 hours as needed. dicyclomine (BENTYL) 10 mg capsule Take 1 capsule by mouth before meals and at bedtime. benztropine (COGENTIN) 0.5 mg tablet Take 0.5 mg by mouth twice daily. lithium carbonate (ESKALITH) 300 mg capsule Take 300 mg by mouth two times a day. sertraline (ZOLOFT) 100 mg tablet Take 100 mg by mouth once daily. ondansetron orally disintegrating (ZOFRAN ODT) 4 mg disintegrating tablet Take 1 tablet by mouth every 8 hours as needed for Nausea/Vomiting. albuterol HFA (PROVENTIL HFA, VENTOLIN HFA) 90 mcg/actuation inhaler Inhale 2 Puffs as instructed every 4 hours as needed. fluticasone (FLOVENT HFA) 110 mcg/actuation inhaler Inhale 2 Puffs as instructed twice daily. (Patient taking differently: Inhale 2 Puffs as instructed as needed.) INVEGA SUSTENNA 234 mg/1.5 mL syrg Inject 234 Units intramuscularly every 4 weeks. Every three months lamoTRIgine (LAMICTAL) 150 mg tablet Take 1 tablet by mouth twice daily. meloxicam (MOBIC) 7.5 mg tablet Take 1 tablet by mouth once daily. Take with food. (Patient not taking: Reported on 11/03/2022) hydrOXYzine pamoate (VISTARIL) 25 mg capsule Take 25 mg by mouth. traZODone (DESYREL) 50 mg tablet Take 150 mg by mouth daily at bedtime. No current facility-administered medications for this visit. ALLERGIES Allergen Reactions Concerta [Methylphe* Other: See Comments hyper Depakote [Divalproe* Intolerance Phenobarbital Intolerance Ritalin [Methylphen* Intolerance hyper PAST SURGICAL HISTORY Procedure Laterality Date LAPAROSCOPY SURG CHOLECYSTECTOMY 01/26/2021 MYRINGOTOMY ASPIRAND/EUSTACHIAN TUBE NFLTJ ANES Myringotomy/tubes PAST SURGICAL HISTORY OF toe spur REMOVAL GALLBLADDER 01/26/2021 RPR UMBILICAL HERNIA < 5 YRS REDUCIBLE Hernia repair, umbilical - repair of diastasis recti Physical Exam: OBJECTIVE: Constitutional: Pt is a well developed 27 year old male who is alert, oriented, cooperative and in no apparent distress. Eyes: Following during examination. No redness or drainage. Respiratory: RR normal and nonlabored. Even breathing. No evidence of distress. Psychology: Patient is engaged during conversation. Normal affect and mood. Does not appear depressed or anxious. NVSI unchanged from previous visit. Dermatological: No open wounds noted to right hallux. Musculoskeletal/Orthopaedic: Patient has pain to palpation of right 4th metatarsal shaft Patient present to the lateral aspect of right ankle along fibula No pain noted to right great toe. Swelling is noted to distal tuft of right hallux ASSESSMENT: (M79.674) Pain of toe of right foot (primary encounter diagnosis) (X50.3XXA) Repetitive stress injury PLAN: Discussed pain in right darden (more content not included)... [facility] 12-17-2022 Note HNO ID: [id number] Author: Izzy Goode LPN Service: ? Author Type: ? Type: Progress Notes Filed: 12/17/2022 3:30 PM Note Text: Patient presents with: Right Ankle - Established Patient, Pain Right Foot - Pain, Established Patient Previously seen for pain in right toe but presents today for pain in right ankle and right foot. Patient denies pain in right toe today. Izzy Goode LPN [facility] 12-17-2022 History of Present illness Narrative Per Dr. Yañez, Levy was provided with Pneumatic walking boot, size Large, and instructed/educated in its application, wear, and care. All questions were answered, and patient was able to demonstrate competence with the necessary skills to utilize the above equipment. Patient signed DJO Patient agreement. Vonda to bill patient's insurance for product. Ashleigh Hays RN Images from the original note were not included. FOLLOW UP PODIATRIC OFFICE VISIT Chief Complaint: This 27 year old who presents for follow up:right great toe pain Patient presents to clinic for follow-up right great toe pain. Patient states the pain in his great toe is still present but is getting better. Patient states he got a larger shoe and that has helped Patient now complaining of right foot and ankle pain x 1 week He denies any injury. 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 mom lost 6 before him. premature labor. delivered emergency because cord wrapped around his neck . born 8 lbs. went home with mom. PMH - PAST MEDICAL HISTORY OF HIGH FUNCTIONING AUTISM PMH - PAST MEDICAL HISTORY OF PRIMARY IMMUNE DEFICENCY Pseudoseizure 2015 Current Outpatient Medications Medication Sig fluticasone (FLONASE) 50 mcg/actuation nasal spray Use 2 Sprays in each nostril once daily. Rinse mouth after use. omeprazole (PRILOSEC) 40 mg capsule Take 1 capsule by mouth once daily. benzonatate (TESSALON PERLES) 100 mg capsule Take 2 capsules by mouth three times daily as needed for cough. albuterol HFA (PROAIR HFA) 90 mcg/actuation inhaler Inhale 2 Puffs as instructed every 6 hours as needed. dicyclomine (BENTYL) 10 mg capsule Take 1 capsule by mouth before meals and at bedtime. benztropine (COGENTIN) 0.5 mg tablet Take 0.5 mg by mouth twice daily. lithium carbonate (ESKALITH) 300 mg capsule Take 300 mg by mouth two times a day. sertraline (ZOLOFT) 100 mg tablet Take 100 mg by mouth once daily. ondansetron orally disintegrating (ZOFRAN ODT) 4 mg disintegrating tablet Take 1 tablet by mouth every 8 hours as needed for Nausea/Vomiting. albuterol HFA (PROVENTIL HFA, VENTOLIN HFA) 90 mcg/actuation inhaler Inhale 2 Puffs as instructed every 4 hours as needed. fluticasone (FLOVENT HFA) 110 mcg/actuation inhaler Inhale 2 Puffs as instructed twice daily. (Patient taking differently: Inhale 2 Puffs as instructed as needed.) INVEGA SUSTENNA 234 mg/1.5 mL syrg Inject 234 Units intramuscularly every 4 weeks. Every three months lamoTRIgine (LAMICTAL) 150 mg tablet Take 1 tablet by mouth twice daily. meloxicam (MOBIC) 7.5 mg tablet Take 1 tablet by mouth once daily. Take with food. (Patient not taking: Reported on 11/03/2022) hydrOXYzine pamoate (VISTARIL) 25 mg capsule Take 25 mg by mouth. traZODone (DESYREL) 50 mg tablet Take 150 mg by mouth daily at bedtime. No current facility-administered medications for this visit. ALLERGIES Allergen Reactions Concerta [Methylphe* Other: See Comments hyper Depakote [Divalproe* Intolerance Phenobarbital Intolerance Ritalin [Methylphen* Intolerance hyper PAST SURGICAL HISTORY Procedure Laterality Date LAPAROSCOPY SURG CHOLECYSTECTOMY 01/26/2021 MYRINGOTOMY ASPIR&/EUSTACHIAN TUBE NFLTJ ANES Myringotomy/tubes PAST SURGICAL HISTORY OF toe spur REMOVAL GALLBLADDER 01/26/2021 RPR UMBILICAL HERNIA < 5 YRS REDUCIBLE Hernia repair, umbilical - repair of diastasis recti Physical Exam: OBJECTIVE: Constitutional: Pt is a well developed 27 year old male who is alert, oriented, cooperative and in no apparent distress. Eyes: Following during examination. No redness or drainage. Respiratory: RR normal and nonlabored. Even breathing. No evidence of distress. Psychology: Patient is engaged during conversation. Normal affect and mood. Does not appear depressed or anxious. NVSI unchanged from previous visit. Dermatological: No open wounds noted to right hallux. Musculoskeletal/Orthopaedic: Patient has pain to palpation of right 4th metatarsal shaft Patient present to the lateral aspect of right ankle along fibula No pain noted to right great toe. Swelling is noted to distal tuft of right hallux ASSESSMENT: (M79.674) Pain of toe of right foot (primary encounter diagnosis) (X50.3XXA) Repetitive stress injury PLAN: Discussed pain in right hallux. Pain has resolved. He does have irregularity of distal tuft but no definitive spurring noted on xray. If he has pain, one option is to further image the great toe by way of ct vs mri. He states the pain is improved so he will monitor. If condition were to cause him pain, would get mri. Discussed right foot pain. No obvious injury and no bruising noted but significant pain along 4th metatarsal. Will get xrays of foot and ankle. Will place him on oral steroid. Placed patient in boot. He can use for the next 2 weeks. Call if any issues arise Fern Yañez DPM Patient presents with: Right Ankle - Established Patient, Pain Right Foot - Pain, Established Patient Previously seen for pain in right toe but presents today for pain in right ankle and right foot. Patient denies pain in right toe today. Izzy Goode LPN documented in this encounter [facility] 12-09-2022 Miscellaneous Notes Patient is schedule on 12/17/2022. Nadia Eaton LPN Dacia, mom/guardian, called. Patient near phone as well. Verified name and date of . Informed of x-ray results. Per Dacia patient is still having right foot pain. 09/06, sharp, has been having pain for over a month, intermittent with worse pain when walking or using stairs. Does use ice to help with pain, padding supplied for shoes, and Mobic. Would like to know plan? Please review and advise. Izzy Goode LPN documented in this encounter [facility] 12-09-2022 Miscellaneous Notes Mother returned call and patient is schedule for 12/17/2022 and advised to present to ED/ Urgent care if symptoms worsen. Mother verbalized understanding. Nadia Eaton LPN Called patients mother to schedule a sooner appointment. No response. VM full. Nadia Eaton LPN Try to add him in for next week. If anything urgent, present to ed Fern Yañez DPM Pts mother calling to report that pt is in a lot of pain. They were not able to get an appt until January 03. This is in regard to the [employer] message from 11/06. Explained that provider is going to be out of the office for a few days but we would see if there was any place he could be worked in. Sending to [facility] nurses. Kimmie Patton MA documented in this encounter [facility] 12-06-2022 Note HNO ID: [id number] Author: Jatin Brown MD Service: ? Author Type: Physician Type: Progress Notes Filed: 12/06/2022 2:47 PM Note Text: Patient presents with: Sinus Problem: sinus pressure and drainage x 5 days HPI: Feeling sinus symptoms for 6 days. 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 mom lost 6 before him. premature labor. delivered emergency because cord wrapped around his neck . born 8 lbs. went home with mom. PMH - PAST MEDICAL HISTORY OF HIGH FUNCTIONING AUTISM PMH - PAST MEDICAL HISTORY OF PRIMARY IMMUNE DEFICENCY Pseudoseizure 2015 MEDICATIONS: Current Outpatient Medications Medication Sig omeprazole (PRILOSEC) 40 mg capsule Take 1 capsule by mouth once daily. benzonatate (TESSALON PERLES) 100 mg capsule Take 2 capsules by mouth three times daily as needed for cough. albuterol HFA (PROAIR HFA) 90 mcg/actuation inhaler Inhale 2 Puffs as instructed every 6 hours as needed. dicyclomine (BENTYL) 10 mg capsule Take 1 capsule by mouth before meals and at bedtime. benztropine (COGENTIN) 0.5 mg tablet Take 0.5 mg by mouth twice daily. hydrOXYzine pamoate (VISTARIL) 25 mg capsule Take 25 mg by mouth. lithium carbonate (ESKALITH) 300 mg capsule sertraline (ZOLOFT) 100 mg tablet ondansetron orally disintegrating (ZOFRAN ODT) 4 mg disintegrating tablet Take 1 tablet by mouth every 8 hours as needed for Nausea/Vomiting. albuterol HFA (PROVENTIL HFA, VENTOLIN HFA) 90 mcg/actuation inhaler Inhale 2 Puffs as instructed every 4 hours as needed. fluticasone (FLOVENT HFA) 110 mcg/actuation inhaler Inhale 2 Puffs as instructed twice daily. (Patient taking differently: Inhale 2 Puffs as instructed as needed.) INVEGA SUSTENNA 234 mg/1.5 mL syrg Inject 234 Units intramuscularly every 4 weeks. Every three months lamoTRIgine (LAMICTAL) 150 mg tablet Take 1 tablet by mouth twice daily. meloxicam (MOBIC) 7.5 mg tablet Take 1 tablet by mouth once daily. Take with food. (Patient not taking: Reported on 11/03/2022) traZODone (DESYREL) 50 mg tablet Take 150 mg by mouth daily at bedtime. (Patient not taking: Reported on 11/03/2022) No current facility-administered medications for this visit. ALLERGIES: ALLERGIES Allergen Reactions Concerta [Methylphe* Other: See Comments hyper Depakote [Divalproe* Intolerance Phenobarbital Intolerance Ritalin [Methylphen* Intolerance hyper VITALS: BP 124/66 Pulse 102 Temp 36.9 ?C (98.5 ?F) Resp 16 Wt (!) 143.3 kg (316 lb) SpO2 95% BMI 41.69 kg/m? PHYSICAL EXAM: GEN: mildly ill appearing. Accompanied by his mother HEENT: PERRL, EOMI, conjunctiva clear Ears: canals occluded by cerumen. TMs without erythema, bulge, or effusion after lavage Sinuses: tender frontal sinus, tender maxillary sinuses Throat: moist mucous membranes, mild erythema, Neck: supple, no thyromegaly, no lymphadenopathy HEART: regular rate and rhythm, no murmurs LUNGS: clear to auscultation, no wheezes or crackles, no increased WOB ASSESSMENT/PLAN: 1. Acute non-recurrent sinusitis, unspecified location - ICD9: 461.9, ICD10: J01.90 (primary diagnosis) Start - FLUTICASONE PROPIONATE 50 MCG/ACTUATION NASAL SPRAY,SUSPENSION - COVID NAAT, UPPER RESPIRATORY, ROUTINE Printed - AMOXICILLIN 875 MG-POTASSIUM CLAVULANATE 125 MG TABLET to fill if COVID negative and symptoms persist. 2. Bilateral impacted cerumen - ICD9: 380.4, ICD10: H61.23 Successful removal by staff water irrigation. - AMBULATORY EAR LAVAGE/IRRIGATION Jatin Brown MD [facility] 12-06-2022 Nurse Note Ambulatory Ear Lavage Pre-treatment: Warm water Treatment: Both ears Equipment and Irrigation solution and Volume used: Single use syringe with single use irrigation tip Water Return flow appearance: Brown Yellow Patient tolerated procedure: yes Tympanic membrane assessment: Tympanic membrane assessed by LIP pre and post procedure Abby Rosen documented in this encounter [facility] 12-06-2022 History of Present illness Narrative Patient presents with: Sinus Problem: sinus pressure and drainage x 5 days HPI: Feeling sinus symptoms for 6 days. 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 mom lost 6 before him. premature labor. delivered emergency because cord wrapped around his neck . born 8 lbs. went home with mom. PMH - PAST MEDICAL HISTORY OF HIGH FUNCTIONING AUTISM PMH - PAST MEDICAL HISTORY OF PRIMARY IMMUNE DEFICENCY Pseudoseizure 2014 MEDICATIONS: Current Outpatient Medications Medication Sig omeprazole (PRILOSEC) 40 mg capsule Take 1 capsule by mouth once daily. benzonatate (TESSALON PERLES) 100 mg capsule Take 2 capsules by mouth three times daily as needed for cough. albuterol HFA (PROAIR HFA) 90 mcg/actuation inhaler Inhale 2 Puffs as instructed every 6 hours as needed. dicyclomine (BENTYL) 10 mg capsule Take 1 capsule by mouth before meals and at bedtime. benztropine (COGENTIN) 0.5 mg tablet Take 0.5 mg by mouth twice daily. hydrOXYzine pamoate (VISTARIL) 25 mg capsule Take 25 mg by mouth. lithium carbonate (ESKALITH) 300 mg capsule sertraline (ZOLOFT) 100 mg tablet ondansetron orally disintegrating (ZOFRAN ODT) 4 mg disintegrating tablet Take 1 tablet by mouth every 8 hours as needed for Nausea/Vomiting. albuterol HFA (PROVENTIL HFA, VENTOLIN HFA) 90 mcg/actuation inhaler Inhale 2 Puffs as instructed every 4 hours as needed. fluticasone (FLOVENT HFA) 110 mcg/actuation inhaler Inhale 2 Puffs as instructed twice daily. (Patient taking differently: Inhale 2 Puffs as instructed as needed.) INVEGA SUSTENNA 234 mg/1.5 mL syrg Inject 234 Units intramuscularly every 4 weeks. Every three months lamoTRIgine (LAMICTAL) 150 mg tablet Take 1 tablet by mouth twice daily. meloxicam (MOBIC) 7.5 mg tablet Take 1 tablet by mouth once daily. Take with food. (Patient not taking: Reported on 11/03/2022) traZODone (DESYREL) 50 mg tablet Take 150 mg by mouth daily at bedtime. (Patient not taking: Reported on 11/03/2022) No current facility-administered medications for this visit. ALLERGIES: ALLERGIES Allergen Reactions Concerta [Methylphe* Other: See Comments hyper Depakote [Divalproe* Intolerance Phenobarbital Intolerance Ritalin [Methylphen* Intolerance hyper VITALS: BP 124/66 Pulse 102 Temp 36.9 C (98.5 F) Resp 16 Wt (!) 143.3 kg (316 lb) SpO2 95% BMI 41.69 kg/m PHYSICAL EXAM: GEN: mildly ill appearing. Accompanied by his mother HEENT: PERRL, EOMI, conjunctiva clear Ears: canals occluded by cerumen. TMs without erythema, bulge, or effusion after lavage Sinuses: tender frontal sinus, tender maxillary sinuses Throat: moist mucous membranes, mild erythema, Neck: supple, no thyromegaly, no lymphadenopathy HEART: regular rate and rhythm, no murmurs LUNGS: clear to auscultation, no wheezes or crackles, no increased WOB ASSESSMENT/PLAN: 1. Acute non-recurrent sinusitis, unspecified location - ICD9: 461.9, ICD10: J01.90 (primary diagnosis) Start - FLUTICASONE PROPIONATE 50 MCG/ACTUATION NASAL SPRAY,SUSPENSION - COVID NAAT, UPPER RESPIRATORY, ROUTINE Printed - AMOXICILLIN 875 MG-POTASSIUM CLAVULANATE 125 MG TABLET to fill if COVID negative and symptoms persist. 2. Bilateral impacted cerumen - ICD9: 380.4, ICD10: H61.23 Successful removal by staff water irrigation. - AMBULATORY EAR LAVAGE/IRRIGATION Jatin Brown MD documented in this encounter [facility] 12-03-2022 Miscellaneous Notes Patient has been identified by name and date of : Yes Pharmacy phones for refill(s): Requested Prescriptions Pending Prescriptions Disp Refills omeprazole (PRILOSEC) 40 mg capsule 28 capsule 5 Sig: Take 1 capsule by mouth once daily. Date of last office visit in primary care: 10/20/22 Last 2 Encounter Wt Readings: Date: Wt: 10/20/2022 141.3 kg (311 lb 9.6 oz) 10/13/2022 139.7 kg (308 lb) Previous labs/tests for medication: Not applicable Please advise. Thank you. Belen Doan LPN documented in this encounter [facility] 11-03-2022 Note HNO ID: [id number] Author: Daniel Vaz RT(R) Service: ? Author Type: Technologist Type: Progress Notes Filed: 11/03/2022 4:32 PM Note Text: Radiology Service Progress Note PATIENT NAME: Levy Todd DATE OF SERVICE: November 03, 2022 TIME: 4:15 PM PATIENT IDENTITY VERIFICATION COMPLETED USING TWO (2) IDENTIFIERS: Name and Date of confirmed by patient verbally. FALL SCREENING: Has the patient had 2 falls in the last year or 1 fall with injury or currently using an Ambulatory Assistive Device (Walker, Cane, Wheelchair, Crutches, etc.)? No PATIENT GENDER DATA: Male PATIENT RELEVANT IMPLANT DATA REVIEWED: Not Applicable RADIOLOGY DEPARTMENT: General X-ray: Exam(s) Completed: Lower Extremity X-Ray(s): Foot, Right and Wt. Bearing and Toes, Right PERIPHERAL IV DATA: Not applicable SIGNED BY: RT Lea(R) November 03, 2022 4:15 PM [facility] 11-03-2022 Note HNO ID: [id number] Author: Fern Yañez Service: ? Author Type: Physician Type: Progress Notes Filed: 11/03/2022 9:45 PM Note Text: Consultation requested by Dr. Quick for an opinion regarding right great toe pain. My final recommendations will be communicated back to the requesting physician by way of shared Medical record or letter to requesting physician via US mail. Chief Complaint: This 27 year old male who presents with chief complaint:right great toe pain HPI Patient presents to clinic for evaluation of his right great toe Patient complains of right great toe pain x 4 weeks. He states the pain is located to the medial side of his right hallux and extends to the tip Patient recently went to [facility] and had xrays done. No fracture. Was told to ice the foot He went to his pcp who prescribed mobic. Mobic does help He still has pain however. 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 mom lost 6 before him. premature labor. delivered emergency because cord wrapped around his neck . born 8 lbs. went home with mom. PMH - PAST MEDICAL HISTORY OF HIGH FUNCTIONING AUTISM PMH - PAST MEDICAL HISTORY OF PRIMARY IMMUNE DEFICENCY Pseudoseizure 2014 Current Outpatient Medications Medication Sig benzonatate (TESSALON PERLES) 100 mg capsule Take 2 capsules by mouth three times daily as needed for cough. albuterol HFA (PROAIR HFA) 90 mcg/actuation inhaler Inhale 2 Puffs as instructed every 6 hours as needed. dicyclomine (BENTYL) 10 mg capsule Take 1 capsule by mouth before meals and at bedtime. benztropine (COGENTIN) 0.5 mg tablet Take 0.5 mg by mouth twice daily. hydrOXYzine pamoate (VISTARIL) 25 mg capsule Take 25 mg by mouth. lithium carbonate (ESKALITH) 300 mg capsule sertraline (ZOLOFT) 100 mg tablet omeprazole (PRILOSEC) 40 mg capsule Take 1 capsule by mouth once daily. ondansetron orally disintegrating (ZOFRAN ODT) 4 mg disintegrating tablet Take 1 tablet by mouth every 8 hours as needed for Nausea/Vomiting. albuterol HFA (PROVENTIL HFA, VENTOLIN HFA) 90 mcg/actuation inhaler Inhale 2 Puffs as instructed every 4 hours as needed. INVEGA SUSTENNA 234 mg/1.5 mL syrg Inject 234 Units intramuscularly every 4 weeks. Every three months lamoTRIgine (LAMICTAL) 150 mg tablet Take 1 tablet by mouth twice daily. meloxicam (MOBIC) 7.5 mg tablet Take 1 tablet by mouth once daily. Take with food. (Patient not taking: Reported on 11/03/2022) traZODone (DESYREL) 50 mg tablet Take 150 mg by mouth daily at bedtime. (Patient not taking: Reported on 11/03/2022) fluticasone (FLOVENT HFA) 110 mcg/actuation inhaler Inhale 2 Puffs as instructed twice daily. (Patient taking differently: Inhale 2 Puffs as instructed as needed.) No current facility-administered medications for this visit. ALLERGIES Allergen Reactions Concerta [Methylphe* Other: See Comments hyper Depakote [Divalproe* Intolerance Phenobarbital Intolerance Ritalin [Methylphen* Intolerance hyper PAST SURGICAL HISTORY Procedure Laterality Date LAPAROSCOPY SURG CHOLECYSTECTOMY 01/26/2021 MYRINGOTOMY ASPIRAND/EUSTACHIAN TUBE NFLTJ ANES Myringotomy/tubes PAST SURGICAL HISTORY OF toe spur REMOVAL GALLBLADDER 01/26/2021 RPR UMBILICAL HERNIA < 5 YRS REDUCIBLE Hernia repair, umbilical - repair of diastasis recti FAMILY HISTORY Problem Relation Age of Onset Allergies Mother Arthritis Mother Hypertension Mother Alcohol/Drug Mother Diabetes Mother Hypertension Father Stroke Father Allergies Maternal Grandmother Arthritis Maternal Grandmother Diabetes Maternal Grandmother Hypertension Maternal Grandmother Arthritis Maternal Grandfather Hypertension Maternal Grandfather Seizures Maternal Grandfather Stroke Maternal Grandfather Hypertension Paternal Grandmother Hypertension Paternal Grandfather Social History Tobacco Use Smoking status: Never Smokeless tobacco: Never Vaping Use Vaping Use: Never used Substance Use Topics Alcohol use: No Drug use: No REVIEW OF SYSTEMS GENERAL: Negative for Malaise, significant weight loss, fever RESPIRATORY: Negative for cough, wheezing and shortness of breat (more content not included)... [facility] 11-03-2022 Note HNO ID: [id number] Author: Nadia Eaton LPN Service: ? Author Type: LICENSED NURSE Type: Progress Notes Filed: 11/03/2022 9:45 PM Note Text: AMB ROOMING INTAKE FLOWSHEET DATA Pain Pain Level: 5 Pain Location: Foot-Right Description: Aching, Cramping, Pressure Duration Amount of Time: 4 Duration Units: Weeks Frequency: Continuous Intervention/Comfort measure: Medication, Cold, Positioning Patient presents with: Right Great Toe - Established Patient, Pain, Numbness Patient present to office with mother. Nadia Eaton LPN [facility] 11-03-2022 History of Present illness Narrative Radiology Service Progress Note PATIENT NAME: Levy Todd DATE OF SERVICE: November 03, 2022 TIME: 4:15 PM PATIENT IDENTITY VERIFICATION COMPLETED USING TWO (2) IDENTIFIERS: Name and Date of confirmed by patient verbally. FALL SCREENING: Has the patient had 2 falls in the last year or 1 fall with injury or currently using an Ambulatory Assistive Device (Walker, Cane, Wheelchair, Crutches, etc.)? No PATIENT GENDER DATA: Male PATIENT RELEVANT IMPLANT DATA REVIEWED: Not Applicable RADIOLOGY DEPARTMENT: General X-ray: Exam(s) Completed: Lower Extremity X-Ray(s): Foot, Right and Wt. Bearing and Toes, Right PERIPHERAL IV DATA: Not applicable SIGNED BY: RT Lea(Tomy) November 03, 2022 4:15 PM documented in this encounter [facility] 11-03-2022 History of Present illness Narrative Images from the original note were not included. Consultation requested by Dr. Quick for an opinion regarding right great toe pain. My final recommendations will be communicated back to the requesting physician by way of shared Medical record or letter to requesting physician via [place] mail. Chief Complaint: This 27 year old male who presents with chief complaint:right great toe pain HPI Patient presents to clinic for evaluation of his right great toe Patient complains of right great toe pain x 4 weeks. He states the pain is located to the medial side of his right hallux and extends to the tip Patient recently went to [facility] and had xrays done. No fracture. Was told to ice the foot He went to his pcp who prescribed mobic. Mobic does help He still has pain however. 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 mom lost 6 before him. premature labor. delivered emergency because cord wrapped around his neck . born 8 lbs. went home with mom. PMH - PAST MEDICAL HISTORY OF HIGH FUNCTIONING AUTISM PMH - PAST MEDICAL HISTORY OF PRIMARY IMMUNE DEFICENCY Pseudoseizure 2014 Current Outpatient Medications Medication Sig benzonatate (TESSALON PERLES) 100 mg capsule Take 2 capsules by mouth three times daily as needed for cough. albuterol HFA (PROAIR HFA) 90 mcg/actuation inhaler Inhale 2 Puffs as instructed every 6 hours as needed. dicyclomine (BENTYL) 10 mg capsule Take 1 capsule by mouth before meals and at bedtime. benztropine (COGENTIN) 0.5 mg tablet Take 0.5 mg by mouth twice daily. hydrOXYzine pamoate (VISTARIL) 25 mg capsule Take 25 mg by mouth. lithium carbonate (ESKALITH) 300 mg capsule sertraline (ZOLOFT) 100 mg tablet omeprazole (PRILOSEC) 40 mg capsule Take 1 capsule by mouth once daily. ondansetron orally disintegrating (ZOFRAN ODT) 4 mg disintegrating tablet Take 1 tablet by mouth every 8 hours as needed for Nausea/Vomiting. albuterol HFA (PROVENTIL HFA, VENTOLIN HFA) 90 mcg/actuation inhaler Inhale 2 Puffs as instructed every 4 hours as needed. INVEGA SUSTENNA 234 mg/1.5 mL syrg Inject 234 Units intramuscularly every 4 weeks. Every three months lamoTRIgine (LAMICTAL) 150 mg tablet Take 1 tablet by mouth twice daily. meloxicam (MOBIC) 7.5 mg tablet Take 1 tablet by mouth once daily. Take with food. (Patient not taking: Reported on 11/03/2022) traZODone (DESYREL) 50 mg tablet Take 150 mg by mouth daily at bedtime. (Patient not taking: Reported on 11/03/2022) fluticasone (FLOVENT HFA) 110 mcg/actuation inhaler Inhale 2 Puffs as instructed twice daily. (Patient taking differently: Inhale 2 Puffs as instructed as needed.) No current facility-administered medications for this visit. ALLERGIES Allergen Reactions Concerta [Methylphe* Other: See Comments hyper Depakote [Divalproe* Intolerance Phenobarbital Intolerance Ritalin [Methylphen* Intolerance hyper PAST SURGICAL HISTORY Procedure Laterality Date LAPAROSCOPY SURG CHOLECYSTECTOMY 01/26/2021 MYRINGOTOMY ASPIR&/EUSTACHIAN TUBE NFLTJ ANES Myringotomy/tubes PAST SURGICAL HISTORY OF toe spur REMOVAL GALLBLADDER 01/26/2021 RPR UMBILICAL HERNIA < 5 YRS REDUCIBLE Hernia repair, umbilical - repair of diastasis recti FAMILY HISTORY Problem Relation Age of Onset Allergies Mother Arthritis Mother Hypertension Mother Alcohol/Drug Mother Diabetes Mother Hypertension Father Stroke Father Allergies Maternal Grandmother Arthritis Maternal Grandmother Diabetes Maternal Grandmother Hypertension Maternal Grandmother Arthritis Maternal Grandfather Hypertension Maternal Grandfather Seizures Maternal Grandfather Stroke Maternal Grandfather Hypertension Paternal Grandmother Hypertension Paternal Grandfather Social History Tobacco Use Smoking status: Never Smokeless tobacco: Never Vaping Use Vaping Use: Never used Substance Use Topics Alcohol use: No Drug use: No REVIEW OF SYSTEMS GENERAL: Negative for Malaise, significant weight loss, fever RESPIRATORY: Negative for cough, wheezing and shortness of breath CARDIOVASCULAR: Negative for chest pain, leg swelling and palpitations GI: Negative for abdominal discomfort, blood in stools or black stools and change in bowel habits : Negative for dysuria, frequency and incontinence MUSCULOSKELETAL: Negative for joint pain or swelling, back pain, and muscle pain. SKIN: Negative for lesions, rash, and itching. HEMATOLOGY/LYMPHOLOGY Negative for prolonged bleeding, bruising easily, and swollen nodes. ENDOCRINE: Negative for cold or heat intolerance, polyuria, polydipsia and goiter. NEURO: negative Physical Exam: Constitutional: Pt is a well developed 27 year old male who is alert, oriented and cooperative Eyes: Following during examination. No redness or drainage. Respiratory: RR normal and nonlabored. Even breathing. No evidence of distress or shortness of breath. Psychology: Patient is engaged during conversation. Normal affect and mood. Does not appear depressed or anxious during encounter. Vascular: Dorsalis pedis and posterior tibial pulses palpable right Capillary Fill time < 5 seconds to digits 1-5 right Skin temperature warm to warm proximal to distal right Hair growth present to digits Neurological: intact light touch/epicritic sensation right intact protective sensation no significant neurological deficits Dermatological: Nails 1-5 right appear normal. Webspaces clean and dry 1-4 b/l. Skin appears well hydrated and supple. good color, texture, turgor. No open lesions present. No callosities present. Musculoskeletal/Orthopaedic: Patient has pain to palpation of tuft of right hallux. There is swelling of tuft of right hallux Foot type is neutral structurally AJ ROM is full with knee extended and flexed 1st MPJ is full when loaded and no pain or crepitus are noted with ROM. MTJ, STJ are full and free of pain and crepitus. +5/5 muscle strength dorsiflexion, plantarflexion, inversion, eversion b/l Radiographs: ordered ASSESSMENT: (M79.674) Pain of toe of right foot PLAN: Discussed pain in right hallux He does have swelling along tuft of right hallux. Reviewed past xrays. No spur. Will repeat xrays Will provide padding for patient to apply to right hallux to help avoid rubbing in shoes Could consider skin plasty to help reduce rubbing in shoe but want to try the pad first and get xrays. Will call patient with results of xray. Anthony ordered Fern Yañez DPM AMB ROOMING INTAKE FLOWSHEET DATA Pain Pain Level: 5 Pain Location: Foot-Right Description: Aching, Cramping, Pressure Duration Amount of Time: 4 Duration Units: Weeks Frequency: Continuous Intervention/Comfort measure: Medication, Cold, Positioning Patient presents with: Right Great Toe - Established Patient, Pain, Numbness Patient present to office with mother. Nadia Eaton LPN documented in this encounter [facility] 10-20-2022 Note HNO ID: [id number] Author: Rich Quick MD Service: ? Author Type: Physician Type: Progress Notes Filed: 10/20/2022 5:04 PM Note Text: Patient presents with: Ear Problem HPI: Patient presents today for office visit for follow up. Complains of right ear. Hurts to touch the outside. No drainage. No sore throat. No congestion or cough. Hearing is ok. Small amount of tinnitus. No pain with chewing. Laying on it bothers him. MEDICATIONS: Current Outpatient Medications Medication Sig meloxicam (MOBIC) 7.5 mg tablet Take 1 tablet by mouth once daily. Take with food. benzonatate (TESSALON PERLES) 100 mg capsule Take 2 capsules by mouth three times daily as needed for cough. albuterol HFA (PROAIR HFA) 90 mcg/actuation inhaler Inhale 2 Puffs as instructed every 6 hours as needed. dicyclomine (BENTYL) 10 mg capsule Take 1 capsule by mouth before meals and at bedtime. benztropine (COGENTIN) 0.5 mg tablet Take 0.5 mg by mouth twice daily. hydrOXYzine pamoate (VISTARIL) 25 mg capsule Take 25 mg by mouth. lithium carbonate (ESKALITH) 300 mg capsule sertraline (ZOLOFT) 100 mg tablet omeprazole (PRILOSEC) 40 mg capsule Take 1 capsule by mouth once daily. traZODone (DESYREL) 50 mg tablet Take 150 mg by mouth daily at bedtime. ondansetron orally disintegrating (ZOFRAN ODT) 4 mg disintegrating tablet Take 1 tablet by mouth every 8 hours as needed for Nausea/Vomiting. albuterol HFA (PROVENTIL HFA, VENTOLIN HFA) 90 mcg/actuation inhaler Inhale 2 Puffs as instructed every 4 hours as needed. fluticasone (FLOVENT HFA) 110 mcg/actuation inhaler Inhale 2 Puffs as instructed twice daily. (Patient taking differently: Inhale 2 Puffs as instructed as needed.) INVEGA SUSTENNA 234 mg/1.5 mL syrg Inject 234 Units intramuscularly every 4 weeks. Every three months lamoTRIgine (LAMICTAL) 150 mg tablet Take 1 tablet by mouth twice daily. No current facility-administered medications for this visit. 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 mom lost 6 before him. premature labor. delivered emergency because cord wrapped around his neck . born 8 lbs. went home with mom. PMH - PAST MEDICAL HISTORY OF HIGH FUNCTIONING AUTISM PMH - PAST MEDICAL HISTORY OF PRIMARY IMMUNE DEFICENCY Pseudoseizure 2014 PAST SURGICAL HISTORY Procedure Laterality Date LAPAROSCOPY SURG CHOLECYSTECTOMY 01/26/2021 MYRINGOTOMY ASPIRAND/EUSTACHIAN TUBE NFLTJ ANES Myringotomy/tubes PAST SURGICAL HISTORY OF toe spur REMOVAL GALLBLADDER 01/26/2021 RPR UMBILICAL HERNIA < 5 YRS REDUCIBLE Hernia repair, umbilical - repair of diastasis recti FAMILY HISTORY Problem Relation Age of Onset Allergies Mother Arthritis Mother Hypertension Mother Alcohol/Drug Mother Diabetes Mother Hypertension Father Stroke Father Allergies Maternal Grandmother Arthritis Maternal Grandmother Diabetes Maternal Grandmother Hypertension Maternal Grandmother Arthritis Maternal Grandfather Hypertension Maternal Grandfather Seizures Maternal Grandfather Stroke Maternal Grandfather Hypertension Paternal Grandmother Hypertension Paternal Grandfather Social History Tobacco Use Smoking status: Never Smokeless tobacco: Never Vaping Use Vaping Use: Never used Substance Use Topics Alcohol use: No Drug use: No Reviewed current medications, allergies, past medical history, surgical history, family history and social history today. REVIEW OF SYSTEMS All other reviewed and negative other than HPI. VITALS: BP 112/62 Pulse 87 Resp 16 Wt (!) 141.3 kg (311 lb 9.6 oz) SpO2 97% BMI 41.11 kg/m? Last 4 Encounter Wt Readings: Date: Wt: 10/20/2022 141.3 kg (311 lb 9.6 oz) 10/13/2022 139.7 kg (308 lb) 10/01/2022 139.4 kg (307 lb 6.4 oz) 09/13/2022 138.8 kg (306 lb) PHYSICAL EXAMINATION: General appearance: Well appearing, alert, in no acute distress, well-hydrated, well nourished. Skin: Skin color, texture, turgor normal, no suspicious rashes or lesions Head: Normocephalic, no masses, lesions, tenderness or abnormalities Ears: pinna is normal. Has cerumen blocking right side Nose/Sinuses: Nares normal, septum midline, mucosa normal, no drainage or sinus tenderness Oropharynx: Lips, mucosa, and tongue normal, teeth and gums (more content not included)... [facility] 10-20-2022 Nurse Note Ambulatory Ear Lavage Pre-treatment: Warm water Treatment: Right ear Equipment and Irrigation solution and Volume used: Single use syringe with single use irrigation tip Return flow appearance: Yellow Other with large amount of brown solid pieces Patient tolerated procedure: yes Tympanic membrane assessment: Tympanic membrane assessed by LIP pre and post procedure documented in this encounter [facility] 10-20-2022 Instructions Rich Quick MD - 10/20/2022 5:03 PM EDT Debrox can be used to flush ears at home. documented in this encounter [facility] 10-20-2022 History of Present illness Narrative Patient presents with: Ear Problem HPI: Patient presents today for office visit for follow up. Complains of right ear. Hurts to touch the outside. No drainage. No sore throat. No congestion or cough. Hearing is ok. Small amount of tinnitus. No pain with chewing. Laying on it bothers him. MEDICATIONS: Current Outpatient Medications Medication Sig meloxicam (MOBIC) 7.5 mg tablet Take 1 tablet by mouth once daily. Take with food. benzonatate (TESSALON PERLES) 100 mg capsule Take 2 capsules by mouth three times daily as needed for cough. albuterol HFA (PROAIR HFA) 90 mcg/actuation inhaler Inhale 2 Puffs as instructed every 6 hours as needed. dicyclomine (BENTYL) 10 mg capsule Take 1 capsule by mouth before meals and at bedtime. benztropine (COGENTIN) 0.5 mg tablet Take 0.5 mg by mouth twice daily. hydrOXYzine pamoate (VISTARIL) 25 mg capsule Take 25 mg by mouth. lithium carbonate (ESKALITH) 300 mg capsule sertraline (ZOLOFT) 100 mg tablet omeprazole (PRILOSEC) 40 mg capsule Take 1 capsule by mouth once daily. traZODone (DESYREL) 50 mg tablet Take 150 mg by mouth daily at bedtime. ondansetron orally disintegrating (ZOFRAN ODT) 4 mg disintegrating tablet Take 1 tablet by mouth every 8 hours as needed for Nausea/Vomiting. albuterol HFA (PROVENTIL HFA, VENTOLIN HFA) 90 mcg/actuation inhaler Inhale 2 Puffs as instructed every 4 hours as needed. fluticasone (FLOVENT HFA) 110 mcg/actuation inhaler Inhale 2 Puffs as instructed twice daily. (Patient taking differently: Inhale 2 Puffs as instructed as needed.) INVEGA SUSTENNA 234 mg/1.5 mL syrg Inject 234 Units intramuscularly every 4 weeks. Every three months lamoTRIgine (LAMICTAL) 150 mg tablet Take 1 tablet by mouth twice daily. No current facility-administered medications for this visit. 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 mom lost 6 before him. premature labor. delivered emergency because cord wrapped around his neck . born 8 lbs. went home with mom. PMH - PAST MEDICAL HISTORY OF HIGH FUNCTIONING AUTISM PMH - PAST MEDICAL HISTORY OF PRIMARY IMMUNE DEFICENCY Pseudoseizure 2014 PAST SURGICAL HISTORY Procedure Laterality Date LAPAROSCOPY SURG CHOLECYSTECTOMY 01/26/2021 MYRINGOTOMY ASPIR&/EUSTACHIAN TUBE NFLTJ ANES Myringotomy/tubes PAST SURGICAL HISTORY OF toe spur REMOVAL GALLBLADDER 01/26/2021 RPR UMBILICAL HERNIA < 5 YRS REDUCIBLE Hernia repair, umbilical - repair of diastasis recti FAMILY HISTORY Problem Relation Age of Onset Allergies Mother Arthritis Mother Hypertension Mother Alcohol/Drug Mother Diabetes Mother Hypertension Father Stroke Father Allergies Maternal Grandmother Arthritis Maternal Grandmother Diabetes Maternal Grandmother Hypertension Maternal Grandmother Arthritis Maternal Grandfather Hypertension Maternal Grandfather Seizures Maternal Grandfather Stroke Maternal Grandfather Hypertension Paternal Grandmother Hypertension Paternal Grandfather Social History Tobacco Use Smoking status: Never Smokeless tobacco: Never Vaping Use Vaping Use: Never used Substance Use Topics Alcohol use: No Drug use: No Reviewed current medications, allergies, past medical history, surgical history, family history and social history today. REVIEW OF SYSTEMS All other reviewed and negative other than HPI. VITALS: BP 112/62 Pulse 87 Resp 16 Wt (!) 141.3 kg (311 lb 9.6 oz) SpO2 97% BMI 41.11 kg/m Last 4 Encounter Wt Readings: Date: Wt: 10/20/2022 141.3 kg (311 lb 9.6 oz) 10/13/2022 139.7 kg (308 lb) 10/01/2022 139.4 kg (307 lb 6.4 oz) 09/13/2022 138.8 kg (306 lb) PHYSICAL EXAMINATION: General appearance: Well appearing, alert, in no acute distress, well-hydrated, well nourished. Skin: Skin color, texture, turgor normal, no suspicious rashes or lesions Head: Normocephalic, no masses, lesions, tenderness or abnormalities Ears: pinna is normal. Has cerumen blocking right side Nose/Sinuses: Nares normal, septum midline, mucosa normal, no drainage or sinus tenderness Oropharynx: Lips, mucosa, and tongue normal, teeth and gums normal, oropharynx normal Neck: Supple, no adenopath Lungs: Lungs clear to auscultation. No wheezing, rhonchi, rales Heart: RRR without murmur, gallop, or rubs. No ectopy ASSESSMENT/PLAN: 1. Right ear pain - ICD9: 388.70, ICD10: H92.01 (primary diagnosis) - staff irrigated right ear with warm tap water. Tolerated well. Large wax plug removed. Discussed using debrox prn. Red flags for re-assessment reviewed with patient in detail. TM clear on inspection after 2. Impacted cerumen of right ear - ICD9: 380.4, ICD10: H61.21 - as above. Rich Quick MD documented in this encounter [facility] 10-13-2022 Note HNO ID: [id number] Author: Rich Quick MD Service: ? Author Type: Physician Type: Progress Notes Filed: 10/13/2022 4:56 PM Note Text: Patient presents with: ER F/U HPI: Patient presents today for office visit for follow up. HOSPITAL/ER FOLLOW UP: Reason for visit: right great toe pain-no injury was in bed when it locked up Which facility: [facility] Date of visit: 10/11/22 Diagnosis: toe pain Testing done: x-ray Treatment given: advised to use ice and motrin Patient is icing and using tylenol Current symptoms: states that pain is unchanged and not sleeping the greatest Not currently red. Slightly swollen. Cannot recall any injury. Xray showed no acute changes. MEDICATIONS: Current Outpatient Medications Medication Sig benzonatate (TESSALON PERLES) 100 mg capsule Take 2 capsules by mouth three times daily as needed for cough. albuterol HFA (PROAIR HFA) 90 mcg/actuation inhaler Inhale 2 Puffs as instructed every 6 hours as needed. dicyclomine (BENTYL) 10 mg capsule Take 1 capsule by mouth before meals and at bedtime. benztropine (COGENTIN) 0.5 mg tablet Take 0.5 mg by mouth twice daily. hydrOXYzine pamoate (VISTARIL) 25 mg capsule Take 25 mg by mouth. lithium carbonate (ESKALITH) 300 mg capsule sertraline (ZOLOFT) 100 mg tablet omeprazole (PRILOSEC) 40 mg capsule Take 1 capsule by mouth once daily. traZODone (DESYREL) 50 mg tablet Take 150 mg by mouth daily at bedtime. ondansetron orally disintegrating (ZOFRAN ODT) 4 mg disintegrating tablet Take 1 tablet by mouth every 8 hours as needed for Nausea/Vomiting. albuterol HFA (PROVENTIL HFA, VENTOLIN HFA) 90 mcg/actuation inhaler Inhale 2 Puffs as instructed every 4 hours as needed. fluticasone (FLOVENT HFA) 110 mcg/actuation inhaler Inhale 2 Puffs as instructed twice daily. (Patient taking differently: Inhale 2 Puffs as instructed as needed.) INVEGA SUSTENNA 234 mg/1.5 mL syrg Inject 234 Units intramuscularly every 4 weeks. Every three months lamoTRIgine (LAMICTAL) 150 mg tablet Take 1 tablet by mouth twice daily. No current facility-administered medications for this visit. 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 mom lost 6 before him. premature labor. delivered emergency because cord wrapped around his neck . born 8 lbs. went home with mom. PMH - PAST MEDICAL HISTORY OF HIGH FUNCTIONING AUTISM PMH - PAST MEDICAL HISTORY OF PRIMARY IMMUNE DEFICENCY Pseudoseizure 2014 PAST SURGICAL HISTORY Procedure Laterality Date LAPAROSCOPY SURG CHOLECYSTECTOMY 01/26/2021 MYRINGOTOMY ASPIRAND/EUSTACHIAN TUBE NFLTJ ANES Myringotomy/tubes PAST SURGICAL HISTORY OF toe spur REMOVAL GALLBLADDER 01/26/2021 RPR UMBILICAL HERNIA < 5 YRS REDUCIBLE Hernia repair, umbilical - repair of diastasis recti FAMILY HISTORY Problem Relation Age of Onset Allergies Mother Arthritis Mother Hypertension Mother Alcohol/Drug Mother Diabetes Mother Hypertension Father Stroke Father Allergies Maternal Grandmother Arthritis Maternal Grandmother Diabetes Maternal Grandmother Hypertension Maternal Grandmother Arthritis Maternal Grandfather Hypertension Maternal Grandfather Seizures Maternal Grandfather Stroke Maternal Grandfather Hypertension Paternal Grandmother Hypertension Paternal Grandfather Social History Tobacco Use Smoking status: Never Smokeless tobacco: Never Vaping Use Vaping Use: Never used Substance Use Topics Alcohol use: No Drug use: No Reviewed current medications, allergies, past medical history, surgical history, family history and social history today. REVIEW OF SYSTEMS All other reviewed and negative other than HPI. VITALS: BP 112/75 Pulse 100 Wt (!) 139.7 kg (308 lb) SpO2 96% BMI 40.64 kg/m? Last 4 Encounter Wt Readings: Date: Wt: 10/01/2022 139.4 kg (307 lb 6.4 oz) 09/13/2022 138.8 kg (306 lb) 09/03/2022 141.2 kg (311 lb 3.2 oz) 08/31/2022 141.1 kg (311 lb) PHYSICAL EXAMINATION: General appearance: Well appearing, alert, in no acute distress, well-hydrated, well nourished. Skin: Skin color, texture, turgor normal, no suspicious rashes or lesions Extremities: No deformities, edema, skin discoloration, clubbing or cyanosis. Good capillary refill. Musculoskeletal: no abnormali (more content not included)... [facility] 10-13-2022 History of Present illness Narrative Patient presents with: ER F/U HPI: Patient presents today for office visit for follow up. HOSPITAL/ER FOLLOW UP: Reason for visit: right great toe pain-no injury was in bed when it locked up Which facility: [facility] Date of visit: 10/11/22 Diagnosis: toe pain Testing done: x-ray Treatment given: advised to use ice and motrin Patient is icing and using tylenol Current symptoms: states that pain is unchanged and not sleeping the greatest Not currently red. Slightly swollen. Cannot recall any injury. Xray showed no acute changes. MEDICATIONS: Current Outpatient Medications Medication Sig benzonatate (TESSALON PERLES) 100 mg capsule Take 2 capsules by mouth three times daily as needed for cough. albuterol HFA (PROAIR HFA) 90 mcg/actuation inhaler Inhale 2 Puffs as instructed every 6 hours as needed. dicyclomine (BENTYL) 10 mg capsule Take 1 capsule by mouth before meals and at bedtime. benztropine (COGENTIN) 0.5 mg tablet Take 0.5 mg by mouth twice daily. hydrOXYzine pamoate (VISTARIL) 25 mg capsule Take 25 mg by mouth. lithium carbonate (ESKALITH) 300 mg capsule sertraline (ZOLOFT) 100 mg tablet omeprazole (PRILOSEC) 40 mg capsule Take 1 capsule by mouth once daily. traZODone (DESYREL) 50 mg tablet Take 150 mg by mouth daily at bedtime. ondansetron orally disintegrating (ZOFRAN ODT) 4 mg disintegrating tablet Take 1 tablet by mouth every 8 hours as needed for Nausea/Vomiting. albuterol HFA (PROVENTIL HFA, VENTOLIN HFA) 90 mcg/actuation inhaler Inhale 2 Puffs as instructed every 4 hours as needed. fluticasone (FLOVENT HFA) 110 mcg/actuation inhaler Inhale 2 Puffs as instructed twice daily. (Patient taking differently: Inhale 2 Puffs as instructed as needed.) INVEGA SUSTENNA 234 mg/1.5 mL syrg Inject 234 Units intramuscularly every 4 weeks. Every three months lamoTRIgine (LAMICTAL) 150 mg tablet Take 1 tablet by mouth twice daily. No current facility-administered medications for this visit. 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 mom lost 6 before him. premature labor. delivered emergency because cord wrapped around his neck . born 8 lbs. went home with mom. PMH - PAST MEDICAL HISTORY OF HIGH FUNCTIONING AUTISM PMH - PAST MEDICAL HISTORY OF PRIMARY IMMUNE DEFICENCY Pseudoseizure 2014 PAST SURGICAL HISTORY Procedure Laterality Date LAPAROSCOPY SURG CHOLECYSTECTOMY 01/26/2021 MYRINGOTOMY ASPIR&/EUSTACHIAN TUBE NFLTJ ANES Myringotomy/tubes PAST SURGICAL HISTORY OF toe spur REMOVAL GALLBLADDER 01/26/2021 RPR UMBILICAL HERNIA < 5 YRS REDUCIBLE Hernia repair, umbilical - repair of diastasis recti FAMILY HISTORY Problem Relation Age of Onset Allergies Mother Arthritis Mother Hypertension Mother Alcohol/Drug Mother Diabetes Mother Hypertension Father Stroke Father Allergies Maternal Grandmother Arthritis Maternal Grandmother Diabetes Maternal Grandmother Hypertension Maternal Grandmother Arthritis Maternal Grandfather Hypertension Maternal Grandfather Seizures Maternal Grandfather Stroke Maternal Grandfather Hypertension Paternal Grandmother Hypertension Paternal Grandfather Social History Tobacco Use Smoking status: Never Smokeless tobacco: Never Vaping Use Vaping Use: Never used Substance Use Topics Alcohol use: No Drug use: No Reviewed current medications, allergies, past medical history, surgical history, family history and social history today. REVIEW OF SYSTEMS All other reviewed and negative other than HPI. VITALS: BP 112/75 Pulse 100 Wt (!) 139.7 kg (308 lb) SpO2 96% BMI 40.64 kg/m Last 4 Encounter Wt Readings: Date: Wt: 10/01/2022 139.4 kg (307 lb 6.4 oz) 09/13/2022 138.8 kg (306 lb) 09/03/2022 141.2 kg (311 lb 3.2 oz) 08/31/2022 141.1 kg (311 lb) PHYSICAL EXAMINATION: General appearance: Well appearing, alert, in no acute distress, well-hydrated, well nourished. Skin: Skin color, texture, turgor normal, no suspicious rashes or lesions Extremities: No deformities, edema, skin discoloration, clubbing or cyanosis. Good capillary refill. Musculoskeletal: no abnormality other than hx of permanent nail avulsion. No redness or warmth. Normal range of motion. Peripheral pulses: Normal Neuro: Negative. ASSESSMENT/PLAN: 1. Pain of toe of right foot - ICD9: 729.5, ICD10: M79.674 -Discussed risks and benefits of new medication with the patient. Advised them to call if any side effects or questions. - Red flags for re-assessment reviewed with patient in detail. RICE - CONSULT TO PODIATRY - MELOXICAM 7.5 MG TABLET Rich Quick MD documented in this encounter [facility] 10-01-2022 Note HNO ID: [id number] Author: Enriqueta Graham PA-C Service: ? 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 Was at [employer] [place]. Sharp pain right lateral knee, left medial knee. Hasn't done anything for pain: no medications ice, heat. Goes to workshop: sits mostly, does crafts. HISTORIES FAMILY HISTORY Problem Relation Age of Onset Allergies Mother Arthritis Mother Hypertension Mother Alcohol/Drug Mother Diabetes Mother Hypertension Father Stroke Father Allergies Maternal Grandmother Arthritis Maternal Grandmother Diabetes Maternal Grandmother Hypertension Maternal Grandmother Arthritis Maternal Grandfather Hypertension Maternal Grandfather Seizures Maternal Grandfather Stroke Maternal Grandfather Hypertension Paternal Grandmother Hypertension Paternal Grandfather PAST MEDICAL HISTORY Diagnosis Date Acute cholecystitis 12/2020 Asperger's syndrome Asthma mild intermittent Attention deficit disorder with hyperactivity(314.01) 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 mom lost 6 before him. premature labor. delivered emergency because cord wrapped around his neck . born 8 lbs. went home with mom. PMH - PAST MEDICAL HISTORY OF HIGH FUNCTIONING AUTISM PMH - PAST MEDICAL HISTORY OF PRIMARY IMMUNE DEFICENCY Pseudoseizure 2014 PAST SURGICAL HISTORY Procedure Laterality Date LAPAROSCOPY SURG CHOLECYSTECTOMY 01/26/2021 MYRINGOTOMY ASPIRAND/EUSTACHIAN TUBE NFLTJ ANES Myringotomy/tubes PAST SURGICAL HISTORY OF toe spur REMOVAL GALLBLADDER 01/26/2021 RPR UMBILICAL HERNIA < 5 YRS REDUCIBLE Hernia repair, umbilical - repair of diastasis recti Social History Tobacco Use Smoking status: Never Smokeless tobacco: Never Vaping Use Vaping Use: Never used Substance Use Topics Alcohol use: No Drug use: No ACTIVE PROBLEM LIST Other Selective Immunoglobulin Deficiencies Pmh - Past Medical History of Attention deficit hyperactivity disorder (ADHD) Pseudoseizure Asperger's Syndrome Morbid Obesity (Hcc) Gerd (Gastroesophageal Reflux Disease) Mild Intermittent Asthma Without Complication Neck Pain Contusion of Right Knee Current Outpatient Medications Medication Sig Dispense Refill benzonatate (TESSALON PERLES) 100 mg capsule Take 2 capsules by mouth three times daily as needed for cough. 30 capsule 0 albuterol HFA (PROAIR HFA) 90 mcg/actuation inhaler Inhale 2 Puffs as instructed every 6 hours as needed. 18 g 0 dicyclomine (BENTYL) 10 mg capsule Take 1 capsule by mouth before meals and at bedtime. 120 capsule 0 benztropine (COGENTIN) 0.5 mg tablet Take 0.5 mg by mouth twice daily. hydrOXYzine pamoate (VISTARIL) 25 mg capsule Take 25 mg by mouth. lithium carbonate (ESKALITH) 300 mg capsule sertraline (ZOLOFT) 100 mg tablet omeprazole (PRILOSEC) 40 mg capsule Take 1 capsule by mouth once daily. 28 capsule 5 ibuprofen (MOTRIN) 600 mg tablet Take 1 tablet by mouth every 6 hours as needed for pain. 40 tablet 0 traZODone (DESYREL) 50 mg tablet Take 150 mg by mouth daily at bedtime. ondansetron orally disintegrating (ZOFRAN ODT) 4 mg disintegrating tablet Take 1 tablet by mouth every 8 hours as needed for Nausea/Vomiting. 20 tablet 0 albuterol HFA (PROVENTIL HFA, VENTOLIN HFA) 90 mcg/actuation inhaler Inhale 2 Puffs as instructed every 4 hours as needed. 18 g 5 fluticasone (FLOVENT HFA) 110 mcg/actuation inhaler Inhale 2 Puffs as instructed twice daily. (Patient taking differently: Inhale 2 Puffs as instructed as needed.) 1 Inhaler 5 INVEGA SUSTENNA 234 mg/1.5 mL syrg Inject 234 Units intramuscularly every 4 weeks. Every three months lamoTRIgine (LAMICTAL) 150 mg tablet Take 1 tablet by mouth twice daily. 60 tablet 5 No current facility-administered medications for this visit. HEPATITIS B(1 of 3 - 3-dose series) Never done PNEUMOCOCCAL(1 - PCV) Never done SPIROMETRY Never done COVID-19 VACCINE(4 - Moderna series) due on 04/03/2021 DEPRESSION ASSESSMENT Never done EXAM: BP 128/74 Pulse 101 Resp 16 Wt (!) 139.4 kg (307 lb 6.4 oz) SpO2 96% BMI 40.56 kg/m? Pleasant obese adult man in no acute distress. Alert and oriented all spheres. Normal affect and cognition. Speech normal. No deficits to learning or comprehension. Skin warm, dry, pink to lips and nailbeds. Normal turgor. Respirations regular and unlabored. Chest is normal shape. Lungs are clear to all heck with good air exchange through out. HRRR without murmur or gallop. No lifts, heaves, or rubs. Extrem: no clubbing (more content not included)... [facility] 09-13-2022 Note HNO ID: [id number] Author: Rich Quick MD Service: ? Author Type: Physician Type: Progress Notes Filed: 09/13/2022 3:26 PM Note Text: Patient presents with: Cough HPI: Patient presents today for office visit for follow up Still with cough. States that never got any better. Finished Doxy on 09/07/22. States that trying to use Albuterol. Was up again all night last night. Cough is nonproductive. Was placed on steroids at last visit which did help while he was on it. Some sore throat. No ear pain. No nausea or vomiting. Chest xray: Lines, tubes, and devices: None. Lungs and pleura: There is poor inflation of the lungs with crowded lung markings in both lung bases. Mild bibasilar changes of bronchitis cannot be excluded. No consolidation. No lung mass. No pleural effusion. No pneumothorax. Cardiomediastinal silhouette: Normal cardiomediastinal silhouette. Bones and soft tissues: Unremarkable. MEDICATIONS: Current Outpatient Medications Medication Sig benzonatate (TESSALON PERLES) 100 mg capsule Take 2 capsules by mouth three times daily as needed for cough. albuterol HFA (PROAIR HFA) 90 mcg/actuation inhaler Inhale 2 Puffs as instructed every 6 hours as needed. dicyclomine (BENTYL) 10 mg capsule Take 1 capsule by mouth before meals and at bedtime. benztropine (COGENTIN) 0.5 mg tablet Take 0.5 mg by mouth twice daily. hydrOXYzine pamoate (VISTARIL) 25 mg capsule Take 25 mg by mouth. lithium carbonate (ESKALITH) 300 mg capsule sertraline (ZOLOFT) 100 mg tablet omeprazole (PRILOSEC) 40 mg capsule Take 1 capsule by mouth once daily. ibuprofen (MOTRIN) 600 mg tablet Take 1 tablet by mouth every 6 hours as needed for pain. traZODone (DESYREL) 50 mg tablet Take 150 mg by mouth daily at bedtime. ondansetron orally disintegrating (ZOFRAN ODT) 4 mg disintegrating tablet Take 1 tablet by mouth every 8 hours as needed for Nausea/Vomiting. albuterol HFA (PROVENTIL HFA, VENTOLIN HFA) 90 mcg/actuation inhaler Inhale 2 Puffs as instructed every 4 hours as needed. fluticasone (FLOVENT HFA) 110 mcg/actuation inhaler Inhale 2 Puffs as instructed twice daily. (Patient taking differently: Inhale 2 Puffs as instructed as needed.) INVEGA SUSTENNA 234 mg/1.5 mL syrg Inject 234 Units intramuscularly every 4 weeks. Every three months lamoTRIgine (LAMICTAL) 150 mg tablet Take 1 tablet by mouth twice daily. No current facility-administered medications for this visit. 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 mom lost 6 before him. premature labor. delivered emergency because cord wrapped around his neck . born 8 lbs. went home with mom. PMH - PAST MEDICAL HISTORY OF HIGH FUNCTIONING AUTISM PMH - PAST MEDICAL HISTORY OF PRIMARY IMMUNE DEFICENCY Pseudoseizure 2014 PAST SURGICAL HISTORY Procedure Laterality Date LAPAROSCOPY SURG CHOLECYSTECTOMY 01/26/2021 MYRINGOTOMY ASPIRAND/EUSTACHIAN TUBE NFLTJ ANES Myringotomy/tubes PAST SURGICAL HISTORY OF toe spur REMOVAL GALLBLADDER 01/26/2021 RPR UMBILICAL HERNIA < 5 YRS REDUCIBLE Hernia repair, umbilical - repair of diastasis recti FAMILY HISTORY Problem Relation Age of Onset Allergies Mother Arthritis Mother Hypertension Mother Alcohol/Drug Mother Diabetes Mother Hypertension Father Stroke Father Allergies Maternal Grandmother Arthritis Maternal Grandmother Diabetes Maternal Grandmother Hypertension Maternal Grandmother Arthritis Maternal Grandfather Hypertension Maternal Grandfather Seizures Maternal Grandfather Stroke Maternal Grandfather Hypertension Paternal Grandmother Hypertension Paternal Grandfather Social History Tobacco Use Smoking status: Never Smokeless tobacco: Never Vaping Use Vaping Use: Never used Substance Use Topics Alcohol use: No Drug use: No Reviewed current medications, allergies, past medical history, surgical history, family history and social history today. REVIEW OF SYSTEMS All other reviewed and negative other than HPI. VITALS: BP 110/74 Pulse 101 Wt (!) 138.8 kg (306 lb) SpO2 95% BMI 40.37 kg/m? Last 4 Encounter Wt Readings: Date: Wt: 09/03/2022 141.2 kg (311 lb 3.2 oz) 08/31/2022 141.1 kg (311 lb) 08/19/2022 140.1 kg (308 lb 12.8 oz) 08/17/2022 140.2 kg (309 lb) (more content not included)... [place] [id number] History of Present illness Narrative Patient presents with: Cough HPI: Patient presents today for office visit for follow up Still with cough. States that never got any better. Finished Doxy on 09/07/22. States that trying to use Albuterol. Was up again all night last night. Cough is nonproductive. Was placed on steroids at last visit which did help while he was on it. Some sore throat. No ear pain. No nausea or vomiting. Chest xray: Lines, tubes, and devices: None. Lungs and pleura: There is poor inflation of the lungs with crowded lung markings in both lung bases. Mild bibasilar changes of bronchitis cannot be excluded. No consolidation. No lung mass. No pleural effusion. No pneumothorax. Cardiomediastinal silhouette: Normal cardiomediastinal silhouette. Bones and soft tissues: Unremarkable. MEDICATIONS: Current Outpatient Medications Medication Sig benzonatate (TESSALON PERLES) 100 mg capsule Take 2 capsules by mouth three times daily as needed for cough. albuterol HFA (PROAIR HFA) 90 mcg/actuation inhaler Inhale 2 Puffs as instructed every 6 hours as needed. dicyclomine (BENTYL) 10 mg capsule Take 1 capsule by mouth before meals and at bedtime. benztropine (COGENTIN) 0.5 mg tablet Take 0.5 mg by mouth twice daily. hydrOXYzine pamoate (VISTARIL) 25 mg capsule Take 25 mg by mouth. lithium carbonate (ESKALITH) 300 mg capsule sertraline (ZOLOFT) 100 mg tablet omeprazole (PRILOSEC) 40 mg capsule Take 1 capsule by mouth once daily. ibuprofen (MOTRIN) 600 mg tablet Take 1 tablet by mouth every 6 hours as needed for pain. traZODone (DESYREL) 50 mg tablet Take 150 mg by mouth daily at bedtime. ondansetron orally disintegrating (ZOFRAN ODT) 4 mg disintegrating tablet Take 1 tablet by mouth every 8 hours as needed for Nausea/Vomiting. albuterol HFA (PROVENTIL HFA, VENTOLIN HFA) 90 mcg/actuation inhaler Inhale 2 Puffs as instructed every 4 hours as needed. fluticasone (FLOVENT HFA) 110 mcg/actuation inhaler Inhale 2 Puffs as instructed twice daily. (Patient taking differently: Inhale 2 Puffs as instructed as needed.) INVEGA SUSTENNA 234 mg/1.5 mL syrg Inject 234 Units intramuscularly every 4 weeks. Every three months lamoTRIgine (LAMICTAL) 150 mg tablet Take 1 tablet by mouth twice daily. No current facility-administered medications for this visit. 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 mom lost 6 before him. premature labor. delivered emergency because cord wrapped around his neck . born 8 lbs. went home with mom. PMH - PAST MEDICAL HISTORY OF HIGH FUNCTIONING AUTISM PMH - PAST MEDICAL HISTORY OF PRIMARY IMMUNE DEFICENCY Pseudoseizure 2014 PAST SURGICAL HISTORY Procedure Laterality Date LAPAROSCOPY SURG CHOLECYSTECTOMY 01/26/2021 MYRINGOTOMY ASPIR&/EUSTACHIAN TUBE NFLTJ ANES Myringotomy/tubes PAST SURGICAL HISTORY OF toe spur REMOVAL GALLBLADDER 01/26/2021 RPR UMBILICAL HERNIA < 5 YRS REDUCIBLE Hernia repair, umbilical - repair of diastasis recti FAMILY HISTORY Problem Relation Age of Onset Allergies Mother Arthritis Mother Hypertension Mother Alcohol/Drug Mother Diabetes Mother Hypertension Father Stroke Father Allergies Maternal Grandmother Arthritis Maternal Grandmother Diabetes Maternal Grandmother Hypertension Maternal Grandmother Arthritis Maternal Grandfather Hypertension Maternal Grandfather Seizures Maternal Grandfather Stroke Maternal Grandfather Hypertension Paternal Grandmother Hypertension Paternal Grandfather Social History Tobacco Use Smoking status: Never Smokeless tobacco: Never Vaping Use Vaping Use: Never used Substance Use Topics Alcohol use: No Drug use: No Reviewed current medications, allergies, past medical history, surgical history, family history and social history today. REVIEW OF SYSTEMS All other reviewed and negative other than HPI. VITALS: BP 110/74 Pulse 101 Wt (!) 138.8 kg (306 lb) SpO2 95% BMI 40.37 kg/m Last 4 Encounter Wt Readings: Date: Wt: 09/03/2022 141.2 kg (311 lb 3.2 oz) 08/31/2022 141.1 kg (311 lb) 08/19/2022 140.1 kg (308 lb 12.8 oz) 08/17/2022 140.2 kg (309 lb) PHYSICAL EXAMINATION: General appearance: Well appearing, alert, in no acute distress, well-hydrated, well nourished. Skin: Skin color, texture, turgor normal, no suspicious rashes or lesions Head: Normocephalic, no masses, lesions, tenderness or abnormalities Eyes: Anicteric sclera. Pupils are equally round and reactive to light. Extraocular movements are intact. Ears: External ears normal, canals clear Nose/Sinuses: Nares normal, septum midline, mucosa normal, no drainage or sinus tenderness Oropharynx: Lips, mucosa, and tongue normal, teeth and gums normal, oropharynx normal Neck: Negative findings: no adenopathy Lungs: lungs sound improved. Lungs clear to auscultation. No wheezing, rhonchi, rales Heart: RRR without murmur, gallop, or rubs. No ectopy Abdomen: Normal abdominal exam, Abdomen soft, non-tender. Bowel sounds normal. No masses, organomegaly ASSESSMENT/PLAN: 1. Bronchitis - ICD9: 490, ICD10: J40 -= Discussed risks and benefits of new medication with the patient. Advised them to call if any side effects or questions. Red flags for re-assessment reviewed with patient in detail. Call if symptoms worsen at all or if not better in one to two weeks Reviewed diagnosis and treatment options in detail. Questions were answered. Patient expressed understanding of treatment plan. - CEFUROXIME AXETIL 250 MG TABLET - BENZONATATE 100 MG CAPSULE Rich Quick MD documented in this encounter [facility] 09-03-2022 Note HNO ID: [id number] Author: Yi Arredondo RT(R) Service: Radiology Author Type: Technologist Type: Progress Notes Filed: 09/03/2022 4:48 PM Note Text: Radiology Service Progress Note PATIENT NAME: Levy Todd DATE OF SERVICE: September 03, 2022 TIME: 4:42 PM PATIENT IDENTITY VERIFICATION COMPLETED USING TWO (2) IDENTIFIERS: Name and Date of confirmed by patient verbally. FALL SCREENING: Has the patient had 2 falls in the last year or 1 fall with injury or currently using an Ambulatory Assistive Device (Walker, Cane, Wheelchair, Crutches, etc.)? No PATIENT GENDER DATA: Male PATIENT RELEVANT IMPLANT DATA REVIEWED: Yes RADIOLOGY DEPARTMENT: General X-ray: Exam(s) Completed: Chest X-Ray PERIPHERAL IV DATA: Not applicable SIGNED BY: RT Santiago(R) September 03, 2022 4:42 PM [facility] 09-03-2022 Note HNO ID: [id number] Author: Rich Quick MD Service: ? Author Type: Physician Type: Progress Notes Filed: 09/04/2022 8:43 AM Note Text: Patient presents with: Cough HPI: Patient presents today for office visit for [facility] follow up. Was seen in [facility] on 08/31/22 for cough. Per mom cough has been on going for almost two weeks. Hast gotten worse over the last 5 days. Cough came on gradually. Cough is worse at night and in the mornings. Non-productive. Using his inhaler. Does not feel wheezy. No sore throat. No ear pain. Some runny nose. Given Tessalon Perles with no relief. Has ran out of Rx. Still on Doxycycline 100 mg BID. Will finish on 09/07/22. Albuterol Rx changed from q 6hrs to q 4hrs. Inhaler helps a little. MEDICATIONS: Current Outpatient Medications Medication Sig doxycycline (VIBRA-TABS) 100 mg tablet Take 1 tablet by mouth twice daily for 7 days. benzonatate (TESSALON PERLES) 100 mg capsule Take 1 capsule by mouth three times daily as needed for cough. albuterol HFA (PROAIR HFA) 90 mcg/actuation inhaler Inhale 2 Puffs as instructed every 6 hours as needed. dicyclomine (BENTYL) 10 mg capsule Take 1 capsule by mouth before meals and at bedtime. benztropine (COGENTIN) 0.5 mg tablet Take 0.5 mg by mouth twice daily. hydrOXYzine pamoate (VISTARIL) 25 mg capsule Take 25 mg by mouth. lithium carbonate (ESKALITH) 300 mg capsule sertraline (ZOLOFT) 100 mg tablet omeprazole (PRILOSEC) 40 mg capsule Take 1 capsule by mouth once daily. ibuprofen (MOTRIN) 600 mg tablet Take 1 tablet by mouth every 6 hours as needed for pain. traZODone (DESYREL) 50 mg tablet Take 150 mg by mouth daily at bedtime. ondansetron orally disintegrating (ZOFRAN ODT) 4 mg disintegrating tablet Take 1 tablet by mouth every 8 hours as needed for Nausea/Vomiting. albuterol HFA (PROVENTIL HFA, VENTOLIN HFA) 90 mcg/actuation inhaler Inhale 2 Puffs as instructed every 4 hours as needed. fluticasone (FLOVENT HFA) 110 mcg/actuation inhaler Inhale 2 Puffs as instructed twice daily. (Patient taking differently: Inhale 2 Puffs as instructed as needed.) INVEGA SUSTENNA 234 mg/1.5 mL syrg Inject 234 Units intramuscularly every 4 weeks. Every three months lamoTRIgine (LAMICTAL) 150 mg tablet Take 1 tablet by mouth twice daily. No current facility-administered medications for this visit. 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 mom lost 6 before him. premature labor. delivered emergency because cord wrapped around his neck . born 8 lbs. went home with mom. PMH - PAST MEDICAL HISTORY OF HIGH FUNCTIONING AUTISM PMH - PAST MEDICAL HISTORY OF PRIMARY IMMUNE DEFICENCY Pseudoseizure 2014 PAST SURGICAL HISTORY Procedure Laterality Date LAPAROSCOPY SURG CHOLECYSTECTOMY 01/26/2021 MYRINGOTOMY ASPIRAND/EUSTACHIAN TUBE NFLTJ ANES Myringotomy/tubes PAST SURGICAL HISTORY OF toe spur REMOVAL GALLBLADDER 01/26/2021 RPR UMBILICAL HERNIA < 5 YRS REDUCIBLE Hernia repair, umbilical - repair of diastasis recti FAMILY HISTORY Problem Relation Age of Onset Allergies Mother Arthritis Mother Hypertension Mother Alcohol/Drug Mother Diabetes Mother Hypertension Father Stroke Father Allergies Maternal Grandmother Arthritis Maternal Grandmother Diabetes Maternal Grandmother Hypertension Maternal Grandmother Arthritis Maternal Grandfather Hypertension Maternal Grandfather Seizures Maternal Grandfather Stroke Maternal Grandfather Hypertension Paternal Grandmother Hypertension Paternal Grandfather Social History Tobacco Use Smoking status: Never Smokeless tobacco: Never Vaping Use Vaping Use: Never used Substance Use Topics Alcohol use: No Drug use: No Reviewed current medications, allergies, past medical history, surgical history, family history and social history today. REVIEW OF SYSTEMS GI: No nausea, vomiting, or diarrhea All other reviewed and negative other than HPI. VITALS: BP 108/64 Pulse 95 Temp 37.7 ?C (99.8 ?F) Ht 185.4 cm (6' 1 ) Wt (!) 141.2 kg (311 lb 3.2 oz) SpO2 95% BMI 41.06 kg/m? Last 4 Encounter Wt Readings: Date: Wt: 08/31/2022 141.1 kg (311 lb) 08/19/2022 140.1 kg (308 lb 12.8 oz) 08/17/2022 140.2 kg (309 lb) 07/01/2022 144.2 kg (318 lb) (more content not included)... [facility] 09-03-2022 History of Present illness Narrative Patient presents with: Cough HPI: Patient presents today for office visit for [facility]. Was seen in [facility] on 08/31/22 for cough. Per mom cough has been on going for almost two weeks. Hast gotten worse over the last 5 days. Cough came on gradually. Cough is worse at night and in the mornings. Non-productive. Using his inhaler. Does not feel wheezy. No sore throat. No ear pain. Some runny nose. Given Tessalon Perles with no relief. Has ran out of Rx. Still on Doxycycline 100 mg BID. Will finish on 09/07/22. Albuterol Rx changed from q 6hrs to q 4hrs. Inhaler helps a little. MEDICATIONS: Current Outpatient Medications Medication Sig doxycycline (VIBRA-TABS) 100 mg tablet Take 1 tablet by mouth twice daily for 7 days. benzonatate (TESSALON PERLES) 100 mg capsule Take 1 capsule by mouth three times daily as needed for cough. albuterol HFA (PROAIR HFA) 90 mcg/actuation inhaler Inhale 2 Puffs as instructed every 6 hours as needed. dicyclomine (BENTYL) 10 mg capsule Take 1 capsule by mouth before meals and at bedtime. benztropine (COGENTIN) 0.5 mg tablet Take 0.5 mg by mouth twice daily. hydrOXYzine pamoate (VISTARIL) 25 mg capsule Take 25 mg by mouth. lithium carbonate (ESKALITH) 300 mg capsule sertraline (ZOLOFT) 100 mg tablet omeprazole (PRILOSEC) 40 mg capsule Take 1 capsule by mouth once daily. ibuprofen (MOTRIN) 600 mg tablet Take 1 tablet by mouth every 6 hours as needed for pain. traZODone (DESYREL) 50 mg tablet Take 150 mg by mouth daily at bedtime. ondansetron orally disintegrating (ZOFRAN ODT) 4 mg disintegrating tablet Take 1 tablet by mouth every 8 hours as needed for Nausea/Vomiting. albuterol HFA (PROVENTIL HFA, VENTOLIN HFA) 90 mcg/actuation inhaler Inhale 2 Puffs as instructed every 4 hours as needed. fluticasone (FLOVENT HFA) 110 mcg/actuation inhaler Inhale 2 Puffs as instructed twice daily. (Patient taking differently: Inhale 2 Puffs as instructed as needed.) INVEGA SUSTENNA 234 mg/1.5 mL syrg Inject 234 Units intramuscularly every 4 weeks. Every three months lamoTRIgine (LAMICTAL) 150 mg tablet Take 1 tablet by mouth twice daily. No current facility-administered medications for this visit. 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 mom lost 6 before him. premature labor. delivered emergency because cord wrapped around his neck . born 8 lbs. went home with mom. PMH - PAST MEDICAL HISTORY OF HIGH FUNCTIONING AUTISM PMH - PAST MEDICAL HISTORY OF PRIMARY IMMUNE DEFICENCY Pseudoseizure 2015 PAST SURGICAL HISTORY Procedure Laterality Date LAPAROSCOPY SURG CHOLECYSTECTOMY 01/26/2021 MYRINGOTOMY ASPIR&/EUSTACHIAN TUBE NFLTJ ANES Myringotomy/tubes PAST SURGICAL HISTORY OF toe spur REMOVAL GALLBLADDER 01/26/2021 RPR UMBILICAL HERNIA < 5 YRS REDUCIBLE Hernia repair, umbilical - repair of diastasis recti FAMILY HISTORY Problem Relation Age of Onset Allergies Mother Arthritis Mother Hypertension Mother Alcohol/Drug Mother Diabetes Mother Hypertension Father Stroke Father Allergies Maternal Grandmother Arthritis Maternal Grandmother Diabetes Maternal Grandmother Hypertension Maternal Grandmother Arthritis Maternal Grandfather Hypertension Maternal Grandfather Seizures Maternal Grandfather Stroke Maternal Grandfather Hypertension Paternal Grandmother Hypertension Paternal Grandfather Social History Tobacco Use Smoking status: Never Smokeless tobacco: Never Vaping Use Vaping Use: Never used Substance Use Topics Alcohol use: No Drug use: No Reviewed current medications, allergies, past medical history, surgical history, family history and social history today. REVIEW OF SYSTEMS GI: No nausea, vomiting, or diarrhea All other reviewed and negative other than HPI. VITALS: BP 108/64 Pulse 95 Temp 37.7 C (99.8 F) Ht 185.4 cm (6' 1 ) Wt (!) 141.2 kg (311 lb 3.2 oz) SpO2 95% BMI 41.06 kg/m Last 4 Encounter Wt Readings: Date: Wt: 08/31/2022 141.1 kg (311 lb) 08/19/2022 140.1 kg (308 lb 12.8 oz) 08/17/2022 140.2 kg (309 lb) 07/01/2022 144.2 kg (318 lb) PHYSICAL EXAMINATION: General appearance: Well appearing, alert, in no acute distress, well-hydrated, well nourished. and moist cough. Skin: Skin color, texture, turgor normal, no suspicious rashes or lesions Head: Normocephalic, no masses, lesions, tenderness or abnormalities Eyes: Anicteric sclera. Pupils are equally round and reactive to light. Extraocular movements are intact. Ears: External ears normal, canals clear Nose/Sinuses: Nares normal, septum midline, mucosa normal, no drainage or sinus tenderness Oropharynx: Lips, mucosa, and tongue normal, teeth and gums normal, oropharynx normal Neck: Supple, no adenopath Lungs: moving air well. Slight rhonchi bilaterally. Heart: RRR without murmur, gallop, or rubs. No ectopy Abdomen: Normal abdominal exam, Abdomen soft, non-tender. Bowel sounds normal. No masses, organomegaly Extremities: No deformities, edema, skin discoloration, clubbing or cyanosis. Good capillary refill. ASSESSMENT/PLAN: 1. Bronchitis - ICD9: 490, ICD10: J40 (primary diagnosis) - continue doxycycline and albuterol. Discussed risks and benefits of new medication with the patient. Advised them to call if any side effects or questions. Red flags for re-assessment reviewed with patient in detail. Call if symptoms worsen at all or if not better in one to two weeks Reviewed diagnosis and treatment options in detail. Questions were answered. Patient expressed understanding of treatment plan. - BENZONATATE 100 MG CAPSULE - PREDNISONE 20 MG TABLET - XR CHEST 2V FRONTAL/LAT 2. Mild intermittent asthma without complication - ICD9: 493.90, ICD10: J45.20 - as above. - BENZONATATE 100 MG CAPSULE - PREDNISONE 20 MG TABLET - XR CHEST 2V FRONTAL/LAT Rich Quick MD documented in this encounter [facility] 09-03-2022 Miscellaneous Notes Pt's mother Dacia calling to request appt for pt today. Mother states pt was seen in on 08/31 for lower respiratory infection and was ordered doxycycline, benzonatate and albuterol inhaler. Mother reports pt's was up all night last night coughing. Reports she feels his cough has worsened- is so deep in his chest . Pt continues with wheezing. Denies SOB, chest pain, fever, chills, sweats, hemoptysis, N/V/D. Appt made with Dr. Quick for today for further evaluation of patient, as requested. Danika Johnson RN documented in this encounter [facility] 09-02-2022 Miscellaneous Notes Letter sent to mom. She needed letter stating just what is ordered from Dr Quick and when to take it. Levy is going to stay somewhere else for awhile and in order for them to give him the medications she needs the letter. Asking to have sent to MyChart. Patient's mother calls and is asking for a list of patient's medications as well as when medications should be given. Please review and advise, Carey Cervantes RN documented in this encounter [facility] 08-31-2022 Note HNO ID: [id number] Author: Micha Guadarrama APRN.[employer] Service: ? Author Type: Nurse Practitioner Type: Progress Notes Filed: 08/31/2022 2:52 PM Note Text: Subjective HPI Nontoxic-appearing male presents urgent care chief complaint cough sore throat. Duration of sore throat 2 days. Duration of cough 7. States cough is worsened in severity over the last few days. Cough has been keeping him up at night. No known sick contacts. He has been using [id number] cough suppressants with little success. Has a history of asthma. Denies any fever body aches chills productive cough chest pain shortness of breath pleuritic pain hemoptysis nausea vomiting abdominal pain change in bowel or bladder habits. Past medical history prescription medication use and allergies reviewed. BP 132/80 Pulse 118 Temp 37.1 ?C (98.8 ?F) Resp 18 Wt (!) 141.1 kg (311 lb) SpO2 96% BMI 41.03 kg/m? 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 mom lost 6 before him. premature labor. delivered emergency because cord wrapped around his neck . born 8 lbs. went home with mom. PMH - PAST MEDICAL HISTORY OF HIGH FUNCTIONING AUTISM PMH - PAST MEDICAL HISTORY OF PRIMARY IMMUNE DEFICENCY Pseudoseizure 2014 PAST SURGICAL HISTORY Procedure Laterality Date LAPAROSCOPY SURG CHOLECYSTECTOMY 01/26/2021 MYRINGOTOMY ASPIRAND/EUSTACHIAN TUBE NFLTJ ANES Myringotomy/tubes PAST SURGICAL HISTORY OF toe spur REMOVAL GALLBLADDER 01/26/2021 RPR UMBILICAL HERNIA < 5 YRS REDUCIBLE Hernia repair, umbilical - repair of diastasis recti ALLERGIES Concerta [Methylphenidate Analogues], Depakote [Divalproex], Phenobarbital, and Ritalin [Methylphenidate Hcl] MEDICATIONS dicyclomine (BENTYL) 10 mg capsule Take 1 capsule by mouth before meals and at bedtime. benztropine (COGENTIN) 0.5 mg tablet Take 0.5 mg by mouth twice daily. hydrOXYzine pamoate (VISTARIL) 25 mg capsule Take 25 mg by mouth. lithium carbonate (ESKALITH) 300 mg capsule sertraline (ZOLOFT) 100 mg tablet omeprazole (PRILOSEC) 40 mg capsule Take 1 capsule by mouth once daily. ibuprofen (MOTRIN) 600 mg tablet Take 1 tablet by mouth every 6 hours as needed for pain. traZODone (DESYREL) 50 mg tablet Take 150 mg by mouth daily at bedtime. albuterol HFA (PROVENTIL HFA, VENTOLIN HFA) 90 mcg/actuation inhaler Inhale 2 Puffs as instructed every 4 hours as needed. fluticasone (FLOVENT HFA) 110 mcg/actuation inhaler Inhale 2 Puffs as instructed twice daily. (Patient taking differently: Inhale 2 Puffs as instructed as needed.) INVEGA SUSTENNA 234 mg/1.5 mL syrg Inject 234 Units intramuscularly every 4 weeks. Every three months lamoTRIgine (LAMICTAL) 150 mg tablet Take 1 tablet by mouth twice daily. doxycycline (VIBRA-TABS) 100 mg tablet Take 1 tablet by mouth twice daily for 7 days. benzonatate (TESSALON PERLES) 100 mg capsule Take 1 capsule by mouth three times daily as needed for cough. albuterol HFA (PROAIR HFA) 90 mcg/actuation inhaler Inhale 2 Puffs as instructed every 6 hours as needed. ondansetron orally disintegrating (ZOFRAN ODT) 4 mg disintegrating tablet Take 1 tablet by mouth every 8 hours as needed for Nausea/Vomiting. (Patient not taking: Reported on 08/31/2022) FAMILY HISTORY Problem Relation Age of Onset Allergies Mother Arthritis Mother Hypertension Mother Alcohol/Drug Mother Diabetes Mother Hypertension Father Stroke Father Allergies Maternal Grandmother Arthritis Maternal Grandmother Diabetes Maternal Grandmother Hypertension Maternal Grandmother Arthritis Maternal Grandfather Hypertension Maternal Grandfather Seizures Maternal Grandfather Stroke Maternal Grandfather Hypertension Paternal Grandmother Hypertension Paternal Grandfather Social History Tobacco Use Smoking status: Never Smokeless tobacco: Never Vaping Use Vaping Use: Never used Substance Use Topics Alcohol use: No Drug use: No Review of Systems Constitutional: Negative for chills, fever and malaise/fatigue. HENT: Positive for congestion, sinus pain and sore throat. Negative for ear discharge and ear pain. Eyes: Negative for blurred vision, pain, discharge and redness. Respiratory: Positive for cough. Negative for hemoptysis, sputum production, shortness of breath, wheezing and stridor. Cardiovascular: Negative for chest pain. Gastrointestinal: Negative for abdominal pain, diarrhea, nausea and (more content not included)... [facility] 08-19-2022 Note HNO ID: [id number] Author: SAGRARIO Francois Service: ? Author Type: Physician Saddle Stitching Machine Operator Type: Progress Notes Filed: 08/19/2022 10:44 AM Note Text: This note was created using [employer]. Subjective Levy Todd is a 26 year old male. HPI 26-year-old male presents for left ear pain and drainage. Patient states this started yesterday. He was seen here a few days ago for sore throat. States sore throat is improved. He is now just having left ear pain. He states he has some drainage from the ear. No fevers. No vomiting. No cough. No other complaints. 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 mom lost 6 before him. premature labor. delivered emergency because cord wrapped around his neck . born 8 lbs. went home with mom. PMH - PAST MEDICAL HISTORY OF HIGH FUNCTIONING AUTISM PMH - PAST MEDICAL HISTORY OF PRIMARY IMMUNE DEFICENCY Pseudoseizure 2014 PAST SURGICAL HISTORY Procedure Laterality Date LAPAROSCOPY SURG CHOLECYSTECTOMY 01/26/2021 MYRINGOTOMY ASPIRAND/EUSTACHIAN TUBE NFLTJ ANES Myringotomy/tubes PAST SURGICAL HISTORY OF toe spur REMOVAL GALLBLADDER 01/26/2021 RPR UMBILICAL HERNIA < 5 YRS REDUCIBLE Hernia repair, umbilical - repair of diastasis recti ALLERGIES Concerta [Methylphenidate Analogues], Depakote [Divalproex], Phenobarbital, and Ritalin [Methylphenidate Hcl] MEDICATIONS dicyclomine (BENTYL) 10 mg capsule Take 1 capsule by mouth before meals and at bedtime. benztropine (COGENTIN) 0.5 mg tablet Take 0.5 mg by mouth twice daily. hydrOXYzine pamoate (VISTARIL) 25 mg capsule Take 25 mg by mouth. lithium carbonate (ESKALITH) 300 mg capsule sertraline (ZOLOFT) 100 mg tablet omeprazole (PRILOSEC) 40 mg capsule Take 1 capsule by mouth once daily. ibuprofen (MOTRIN) 600 mg tablet Take 1 tablet by mouth every 6 hours as needed for pain. traZODone (DESYREL) 50 mg tablet Take 150 mg by mouth daily at bedtime. ondansetron orally disintegrating (ZOFRAN ODT) 4 mg disintegrating tablet Take 1 tablet by mouth every 8 hours as needed for Nausea/Vomiting. albuterol HFA (PROVENTIL HFA, VENTOLIN HFA) 90 mcg/actuation inhaler Inhale 2 Puffs as instructed every 4 hours as needed. fluticasone (FLOVENT HFA) 110 mcg/actuation inhaler Inhale 2 Puffs as instructed twice daily. (Patient taking differently: Inhale 2 Puffs as instructed as needed.) INVEGA SUSTENNA 234 mg/1.5 mL syrg Inject 234 Units intramuscularly every 4 weeks. Every three months lamoTRIgine (LAMICTAL) 150 mg tablet Take 1 tablet by mouth twice daily. amoxicillin-clavulanic acid (AUGMENTIN) 875-125 mg per tablet Take 1 tablet by mouth twice daily for 7 days. FAMILY HISTORY Problem Relation Age of Onset Allergies Mother Arthritis Mother Hypertension Mother Alcohol/Drug Mother Diabetes Mother Hypertension Father Stroke Father Allergies Maternal Grandmother Arthritis Maternal Grandmother Diabetes Maternal Grandmother Hypertension Maternal Grandmother Arthritis Maternal Grandfather Hypertension Maternal Grandfather Seizures Maternal Grandfather Stroke Maternal Grandfather Hypertension Paternal Grandmother Hypertension Paternal Grandfather Social History Tobacco Use Smoking status: Never Smokeless tobacco: Never Vaping Use Vaping Use: Never used Substance Use Topics Alcohol use: No Drug use: No Review of Systems Constitutional: Negative for chills and fever. HENT: Positive for ear discharge and ear pain. Negative for congestion and sore throat. Respiratory: Negative for cough and shortness of breath. Gastrointestinal: Negative for diarrhea and vomiting. Objective BP 112/68 Pulse (!) 122 Temp 37.1 ?C (98.8 ?F) (Tympanic) Resp 20 Wt (!) 140.1 kg (308 lb 12.8 oz) SpO2 96% BMI 40.74 kg/m? Physical Exam Vitals and nursing note reviewed. Constitutional: General: He is not in acute distress. Appearance: Normal appearance. He is not toxic-appearing. HENT: Right Ear: Tympanic membrane and ear canal normal. Left Ear: Drainage present. Tympanic membrane is erythematous. Ears: Comments: There is drainage in the left ear canal. Unable to fully see TM due to the drainage. It is a yellow/bloody drainage. Nose: Nose normal. Mouth/Throat: Mouth: Mucous membranes are moist. Eyes: Conjunctiva/sclera: Conjunctivae normal. Cardiovascular: Rate and Rhythm: Normal rate and regular rhythm. Pulmonary: Effort: Pulmonary effort is normal. Breath sounds: Normal breath sound (more content not included)... [facility] 08-19-2022 History of Present illness Narrative This note was created using [employer]. Subjective Levy Todd is a 26 year old male. HPI 26-year-old male presents for left ear pain and drainage. Patient states this started yesterday. He was seen here a few days ago for sore throat. States sore throat is improved. He is now just having left ear pain. He states he has some drainage from the ear. No fevers. No vomiting. No cough. No other complaints. 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 mom lost 6 before him. premature labor. delivered emergency because cord wrapped around his neck . born 8 lbs. went home with mom. PMH - PAST MEDICAL HISTORY OF HIGH FUNCTIONING AUTISM PMH - PAST MEDICAL HISTORY OF PRIMARY IMMUNE DEFICENCY Pseudoseizure 2014 PAST SURGICAL HISTORY Procedure Laterality Date LAPAROSCOPY SURG CHOLECYSTECTOMY 01/26/2021 MYRINGOTOMY ASPIR&/EUSTACHIAN TUBE NFLTJ ANES Myringotomy/tubes PAST SURGICAL HISTORY OF toe spur REMOVAL GALLBLADDER 01/26/2021 RPR UMBILICAL HERNIA < 5 YRS REDUCIBLE Hernia repair, umbilical - repair of diastasis recti ALLERGIES Concerta [Methylphenidate Analogues], Depakote [Divalproex], Phenobarbital, and Ritalin [Methylphenidate Hcl] MEDICATIONS dicyclomine (BENTYL) 10 mg capsule Take 1 capsule by mouth before meals and at bedtime. benztropine (COGENTIN) 0.5 mg tablet Take 0.5 mg by mouth twice daily. hydrOXYzine pamoate (VISTARIL) 25 mg capsule Take 25 mg by mouth. lithium carbonate (ESKALITH) 300 mg capsule sertraline (ZOLOFT) 100 mg tablet omeprazole (PRILOSEC) 40 mg capsule Take 1 capsule by mouth once daily. ibuprofen (MOTRIN) 600 mg tablet Take 1 tablet by mouth every 6 hours as needed for pain. traZODone (DESYREL) 50 mg tablet Take 150 mg by mouth daily at bedtime. ondansetron orally disintegrating (ZOFRAN ODT) 4 mg disintegrating tablet Take 1 tablet by mouth every 8 hours as needed for Nausea/Vomiting. albuterol HFA (PROVENTIL HFA, VENTOLIN HFA) 90 mcg/actuation inhaler Inhale 2 Puffs as instructed every 4 hours as needed. fluticasone (FLOVENT HFA) 110 mcg/actuation inhaler Inhale 2 Puffs as instructed twice daily. (Patient taking differently: Inhale 2 Puffs as instructed as needed.) INVEGA SUSTENNA 234 mg/1.5 mL syrg Inject 234 Units intramuscularly every 4 weeks. Every three months lamoTRIgine (LAMICTAL) 150 mg tablet Take 1 tablet by mouth twice daily. amoxicillin-clavulanic acid (AUGMENTIN) 875-125 mg per tablet Take 1 tablet by mouth twice daily for 7 days. FAMILY HISTORY Problem Relation Age of Onset Allergies Mother Arthritis Mother Hypertension Mother Alcohol/Drug Mother Diabetes Mother Hypertension Father Stroke Father Allergies Maternal Grandmother Arthritis Maternal Grandmother Diabetes Maternal Grandmother Hypertension Maternal Grandmother Arthritis Maternal Grandfather Hypertension Maternal Grandfather Seizures Maternal Grandfather Stroke Maternal Grandfather Hypertension Paternal Grandmother Hypertension Paternal Grandfather Social History Tobacco Use Smoking status: Never Smokeless tobacco: Never Vaping Use Vaping Use: Never used Substance Use Topics Alcohol use: No Drug use: No Review of Systems Constitutional: Negative for chills and fever. HENT: Positive for ear discharge and ear pain. Negative for congestion and sore throat. Respiratory: Negative for cough and shortness of breath. Gastrointestinal: Negative for diarrhea and vomiting. Objective BP 112/68 Pulse (!) 122 Temp 37.1 C (98.8 F) (Tympanic) Resp 20 Wt (!) 140.1 kg (308 lb 12.8 oz) SpO2 96% BMI 40.74 kg/m Physical Exam Vitals and nursing note reviewed. Constitutional: General: He is not in acute distress. Appearance: Normal appearance. He is not toxic-appearing. HENT: Right Ear: Tympanic membrane and ear canal normal. Left Ear: Drainage present. Tympanic membrane is erythematous. Ears: Comments: There is drainage in the left ear canal. Unable to fully see TM due to the drainage. It is a yellow/bloody drainage. Nose: Nose normal. Mouth/Throat: Mouth: Mucous membranes are moist. Eyes: Conjunctiva/sclera: Conjunctivae normal. Cardiovascular: Rate and Rhythm: Normal rate and regular rhythm. Pulmonary: Effort: Pulmonary effort is normal. Breath sounds: Normal breath sounds. Skin: General: Skin is warm and dry. Neurological: Mental Status: He is alert. Assessment and Plan ,ASSESSMENT/PLAN: 1. Acute otitis media, left - ICD9: 382.9, ICD10: H66.92 - Will begin treatment with Augmentin. Concern for possible TM rupture due to the drainage. Unable to fully see TM due to drainage. - Supportive care with plenty of fluids, rest, and analgesia prn. Diagnosis and treatment plan were discussed and questions were answered to the patient's satisfaction. Pt acknowledged understanding of concepts and follow up plan. Specific signs and symptoms that would indicate the need for higher level of care were discussed in detail warranting prompt ER evaluation. SAGRARIO Francois documented in this encounter [facility] 08-17-2022 Note HNO ID: [id number] Author: SAGRARIO Francois Service: ? Author Type: Physician Saddle Stitching Machine Operator Type: Progress Notes Filed: 08/17/2022 2:30 PM Note Text: This note was created using [employer]. Subjective Levy Todd is a 26 year old male. HPI 46-year-old male presents for sore throat. Patient states her throat started yesterday. He has also had a mild cough. He does have low-grade fever here today. No vomiting or diarrhea. No runny nose. No sick contacts. 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 mom lost 6 before him. premature labor. delivered emergency because cord wrapped around his neck . born 8 lbs. went home with mom. PMH - PAST MEDICAL HISTORY OF HIGH FUNCTIONING AUTISM PMH - PAST MEDICAL HISTORY OF PRIMARY IMMUNE DEFICENCY Pseudoseizure 2014 PAST SURGICAL HISTORY Procedure Laterality Date LAPAROSCOPY SURG CHOLECYSTECTOMY 01/26/2021 MYRINGOTOMY ASPIRAND/EUSTACHIAN TUBE NFLTJ ANES Myringotomy/tubes PAST SURGICAL HISTORY OF toe spur REMOVAL GALLBLADDER 01/26/2021 RPR UMBILICAL HERNIA < 5 YRS REDUCIBLE Hernia repair, umbilical - repair of diastasis recti ALLERGIES Concerta [Methylphenidate Analogues], Depakote [Divalproex], Phenobarbital, and Ritalin [Methylphenidate Hcl] MEDICATIONS dicyclomine (BENTYL) 10 mg capsule Take 1 capsule by mouth before meals and at bedtime. benztropine (COGENTIN) 0.5 mg tablet Take 0.5 mg by mouth twice daily. hydrOXYzine pamoate (VISTARIL) 25 mg capsule Take 25 mg by mouth. lithium carbonate (ESKALITH) 300 mg capsule sertraline (ZOLOFT) 100 mg tablet omeprazole (PRILOSEC) 40 mg capsule Take 1 capsule by mouth once daily. ibuprofen (MOTRIN) 600 mg tablet Take 1 tablet by mouth every 6 hours as needed for pain. traZODone (DESYREL) 50 mg tablet Take 150 mg by mouth daily at bedtime. ondansetron orally disintegrating (ZOFRAN ODT) 4 mg disintegrating tablet Take 1 tablet by mouth every 8 hours as needed for Nausea/Vomiting. albuterol HFA (PROVENTIL HFA, VENTOLIN HFA) 90 mcg/actuation inhaler Inhale 2 Puffs as instructed every 4 hours as needed. fluticasone (FLOVENT HFA) 110 mcg/actuation inhaler Inhale 2 Puffs as instructed twice daily. (Patient taking differently: Inhale 2 Puffs as instructed as needed.) INVEGA SUSTENNA 234 mg/1.5 mL syrg Inject 234 Units intramuscularly every 4 weeks. Every three months lamoTRIgine (LAMICTAL) 150 mg tablet Take 1 tablet by mouth twice daily. FAMILY HISTORY Problem Relation Age of Onset Allergies Mother Arthritis Mother Hypertension Mother Alcohol/Drug Mother Diabetes Mother Hypertension Father Stroke Father Allergies Maternal Grandmother Arthritis Maternal Grandmother Diabetes Maternal Grandmother Hypertension Maternal Grandmother Arthritis Maternal Grandfather Hypertension Maternal Grandfather Seizures Maternal Grandfather Stroke Maternal Grandfather Hypertension Paternal Grandmother Hypertension Paternal Grandfather Social History Tobacco Use Smoking status: Never Smokeless tobacco: Never Vaping Use Vaping Use: Never used Substance Use Topics Alcohol use: No Drug use: No Review of Systems Constitutional: Positive for fever. Negative for chills. HENT: Positive for sore throat. Negative for congestion. Respiratory: Positive for cough. Negative for shortness of breath. Gastrointestinal: Negative for diarrhea and vomiting. Objective BP 128/72 Pulse 112 Temp (!) 38 ?C (100.4 ?F) Resp 16 Ht 185.4 cm (6' 1 ) Wt (!) 140.2 kg (309 lb) BMI 40.77 kg/m? Physical Exam Vitals and nursing note reviewed. Constitutional: General: He is not in acute distress. Appearance: Normal appearance. He is not toxic-appearing. HENT: Right Ear: Tympanic membrane and ear canal normal. Left Ear: Tympanic membrane and ear canal normal. Nose: Nose normal. Mouth/Throat: Mouth: Mucous membranes are moist. Pharynx: Uvula midline. Posterior oropharyngeal erythema present. Tonsils: Tonsillar exudate present. No tonsillar abscesses. 1+ on the right. 1+ on the left. Eyes: Conjunctiva/sclera: Conjunctivae normal. Cardiovascular: Rate and Rhythm: Normal rate and regular rhythm. Pulmonary: Effort: Pulmonary effort is normal. Breath sounds: Normal breath sounds. Skin: General: Skin is warm and dry. Neurological: Mental Status: He is alert. Assessment and Plan ASSESSMENT/PLAN: 1. Sore throat - ICD9: 462, ICD10: J02.9 - suspect viral - Alere S (more content not included)... [facility] 08-17-2022 History of Present illness Narrative This note was created using [employer]ter. Subjective Levy Todd is a 26 year old male. HPI 46-year-old male presents for sore throat. Patient states her throat started yesterday. He has also had a mild cough. He does have low-grade fever here today. No vomiting or diarrhea. No runny nose. No sick contacts. 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 mom lost 6 before him. premature labor. delivered emergency because cord wrapped around his neck . born 8 lbs. went home with mom. PMH - PAST MEDICAL HISTORY OF HIGH FUNCTIONING AUTISM PMH - PAST MEDICAL HISTORY OF PRIMARY IMMUNE DEFICENCY Pseudoseizure 2014 PAST SURGICAL HISTORY Procedure Laterality Date LAPAROSCOPY SURG CHOLECYSTECTOMY 01/26/2021 MYRINGOTOMY ASPIR&/EUSTACHIAN TUBE NFLTJ ANES Myringotomy/tubes PAST SURGICAL HISTORY OF toe spur REMOVAL GALLBLADDER 01/26/2021 RPR UMBILICAL HERNIA < 5 YRS REDUCIBLE Hernia repair, umbilical - repair of diastasis recti ALLERGIES Concerta [Methylphenidate Analogues], Depakote [Divalproex], Phenobarbital, and Ritalin [Methylphenidate Hcl] MEDICATIONS dicyclomine (BENTYL) 10 mg capsule Take 1 capsule by mouth before meals and at bedtime. benztropine (COGENTIN) 0.5 mg tablet Take 0.5 mg by mouth twice daily. hydrOXYzine pamoate (VISTARIL) 25 mg capsule Take 25 mg by mouth. lithium carbonate (ESKALITH) 300 mg capsule sertraline (ZOLOFT) 100 mg tablet omeprazole (PRILOSEC) 40 mg capsule Take 1 capsule by mouth once daily. ibuprofen (MOTRIN) 600 mg tablet Take 1 tablet by mouth every 6 hours as needed for pain. traZODone (DESYREL) 50 mg tablet Take 150 mg by mouth daily at bedtime. ondansetron orally disintegrating (ZOFRAN ODT) 4 mg disintegrating tablet Take 1 tablet by mouth every 8 hours as needed for Nausea/Vomiting. albuterol HFA (PROVENTIL HFA, VENTOLIN HFA) 90 mcg/actuation inhaler Inhale 2 Puffs as instructed every 4 hours as needed. fluticasone (FLOVENT HFA) 110 mcg/actuation inhaler Inhale 2 Puffs as instructed twice daily. (Patient taking differently: Inhale 2 Puffs as instructed as needed.) INVEGA SUSTENNA 234 mg/1.5 mL syrg Inject 234 Units intramuscularly every 4 weeks. Every three months lamoTRIgine (LAMICTAL) 150 mg tablet Take 1 tablet by mouth twice daily. FAMILY HISTORY Problem Relation Age of Onset Allergies Mother Arthritis Mother Hypertension Mother Alcohol/Drug Mother Diabetes Mother Hypertension Father Stroke Father Allergies Maternal Grandmother Arthritis Maternal Grandmother Diabetes Maternal Grandmother Hypertension Maternal Grandmother Arthritis Maternal Grandfather Hypertension Maternal Grandfather Seizures Maternal Grandfather Stroke Maternal Grandfather Hypertension Paternal Grandmother Hypertension Paternal Grandfather Social History Tobacco Use Smoking status: Never Smokeless tobacco: Never Vaping Use Vaping Use: Never used Substance Use Topics Alcohol use: No Drug use: No Review of Systems Constitutional: Positive for fever. Negative for chills. HENT: Positive for sore throat. Negative for congestion. Respiratory: Positive for cough. Negative for shortness of breath. Gastrointestinal: Negative for diarrhea and vomiting. Objective BP 128/72 Pulse 112 Temp (!) 38 C (100.4 F) Resp 16 Ht 185.4 cm (6' 1 ) Wt (!) 140.2 kg (309 lb) BMI 40.77 kg/m Physical Exam Vitals and nursing note reviewed. Constitutional: General: He is not in acute distress. Appearance: Normal appearance. He is not toxic-appearing. HENT: Right Ear: Tympanic membrane and ear canal normal. Left Ear: Tympanic membrane and ear canal normal. Nose: Nose normal. Mouth/Throat: Mouth: Mucous membranes are moist. Pharynx: Uvula midline. Posterior oropharyngeal erythema present. Tonsils: Tonsillar exudate present. No tonsillar abscesses. 1+ on the right. 1+ on the left. Eyes: Conjunctiva/sclera: Conjunctivae normal. Cardiovascular: Rate and Rhythm: Normal rate and regular rhythm. Pulmonary: Effort: Pulmonary effort is normal. Breath sounds: Normal breath sounds. Skin: General: Skin is warm and dry. Neurological: Mental Status: He is alert. Assessment and Plan ASSESSMENT/PLAN: 1. Sore throat - ICD9: 462, ICD10: J02.9 - suspect viral - Alere Strep Test negative, no culture pending - Discussed supportive care treatment with fluids, rest and analgesia. - The patient may also use warm salt water gargles, throat lozenges and/or OTC throat spray as needed. - STREP A MOLECULAR (POC) Diagnosis and treatment plan were discussed and questions were answered to the patient's satisfaction. Pt acknowledged understanding of concepts and follow up plan. Specific signs and symptoms that would indicate the need for higher level of care were discussed in detail warranting prompt ER evaluation. SAGRARIO Francois documented in this encounter [facility] 07-27-2022 Miscellaneous Notes Mother calls for two things: 1) Pt will be going into respite care in July. Staff needs a detailed list of meds and times pt is to take meds. Mother is asking for this to be put in a [facility] message. 2) Pt needs a refill on Bentyl. Mother reports right now pt is taking it 4 times a day. Patient has been identified by name and date of : Yes Requested Prescriptions Pending Prescriptions Disp Refills dicyclomine (BENTYL) 10 mg capsule 120 capsule 0 Sig: Take 1 capsule by mouth before meals and at bedtime. RX INSTRUCTIONS: Patient aware RX will be sent to pharmacy. No need to notify patient. Xochilt Quick LPN documented in this encounter [facility] 07-02-2022 Note HNO ID: [id number] Author: RT Santiago(R) Service: Radiology Author Type: Technologist Type: Progress Notes Filed: 07/02/2022 3:30 PM Note Text: Radiology Service Progress Note PATIENT NAME: Levy Todd DATE OF SERVICE: July 02, 2022 TIME: 3:20 PM PATIENT IDENTITY VERIFICATION COMPLETED USING TWO (2) IDENTIFIERS: Name and Date of confirmed by patient verbally. FALL SCREENING: Has the patient had 2 falls in the last year or 1 fall with injury or currently using an Ambulatory Assistive Device (Walker, Cane, Wheelchair, Crutches, etc.)? No PATIENT GENDER DATA: Male PATIENT RELEVANT IMPLANT DATA REVIEWED: Yes RADIOLOGY DEPARTMENT: General X-ray: Exam(s) Completed: Abdomen X-Ray: Abdomen supine PERIPHERAL IV DATA: Not applicable SIGNED BY: RT Santiago(R) July 02, 2022 3:20 PM [facility] 07-02-2022 Miscellaneous Notes Phone call placed spoke to patient's parent advised ( see prior provider encounter) Patients parent verbalized understanding, agreed with plan of care reported she had been contacted prior with results, aware of STAT order plans to arrive around 3:00 07/02/2022. Cris Guerrero LPN Call placed to patient/mother with no answer. Voicemail left for patient/mother to return call and ask to speak to a triage nurse to receive provider message. Shraddha Concepcion RN Let them know his kub came back. The radiologist felt no blockage. His small intestine appeared mildly filled with gas. Call if worsens. Recheck kub tomorrow to make sure is not changing documented in this encounter [facility] 07-01-2022 Note HNO ID: [id number] Author: Rich Quick MD Service: ? Author Type: Physician Type: Progress Notes Filed: 07/01/2022 5:21 PM Note Text: Patient presents with: Abdominal Pain: 2 day follow up HPI: Patient presents today for office visit for follow up. Abdominal pain still comes and goes. Better than it was. 5/10 on pain scale. No fever or chills. No nausea or vomiting. No bentyl does help. No urinary issues. Did move his bowel ok. No black or bloody stools. Kub is pending. Review labs See previous ov: Patient presents today for office visit for abdominal pain that started 1 week ago. Pain came on suddenly. Refers to a constant sharp pain. Scale 9/10 pain always. Was taking some of moms bentyl with mild relief. He points to pain being in the luq. Denies nausea and vomiting. No diarrhea. Has not been able to have BM in 2 days. BM's are typically normal and regular. Comes out easy. Does not have to strain. Denies fever. Last bm was normal. No black or bloody. No issues urinating. No acid brash. Is using omeprazole. Was put on lithium in the hospital in the past and she wondered if it was upsetting his stomach. Component Latest Ref Rng AND Units 06/29/2022 WBC 3.70 - 11.00 k/uL 7.46 RBC 4.20 - 6.00 m/uL 5.10 Hemoglobin 13.0 - 17.0 g/dL 13.1 Hematocrit 39.0 - 51.0 % 41.2 MCV 80.0 - 100.0 fL 80.8 MCH 26.0 - 34.0 pg 25.7 (L) MCHC 30.5 - 36.0 g/dL 31.8 RDW-CV 11.5 - 15.0 % 14.5 Platelet Count 150 - 400 k/uL 335 MPV 9.0 - 12.7 fL 9.2 Neut% % 55.9 Abs Neut (ANC) 1.45 - 7.50 k/uL 4.17 Lymph% % 36.5 Abs Lymph 1.00 - 4.00 k/uL 2.72 [place]% % 7.2 Abs [place] <0.87 k/uL 0.54 Eosin% % 0.0 Abs Eosin <0.46 k/uL <0.03 Baso% % 0.1 Abs Baso <0.11 k/uL <0.03 Immature Gran % % 0.3 IMMATURE GRANS (ABS) <0.10 k/uL <0.03 NRBC /100 WBC 0.0 Absolute nRBC <0.01 k/uL <0.01 DTYPE Auto Protein, Total 6.3 - 8.0 g/dL 6.8 Albumin 3.9 - 4.9 g/dL 4.4 Calcium 8.5 - 10.2 mg/dL 9.4 Bilirubin, Total 0.2 - 1.3 mg/dL 0.2 Alkaline Phosphatase 38 - 113 U/L 106 AST 14 - 40 U/L 15 ALT 10 - 54 U/L 21 Glucose 74 - 99 mg/dL 89 BUN 9 - 24 mg/dL 7 (L) Creatinine 0.73 - 1.22 mg/dL 0.92 Sodium 136 - 144 mmol/L 138 Potassium 3.7 - 5.1 mmol/L 4.3 Chloride 97 - 105 mmol/L 102 CO2 22 - 30 mmol/L 22 Anion Gap 9 - 18 mmol/L 14 eGFR >=60 mL/min/1.73mA? 116 Color Yellow Yellow Clarity Clear Clear Glucose, Urine Trace, Negative Negative Bilirubin, Urine Negative Negative Ketones, Urine Trace, Negative Negative Specific [place], Ur 1.005 - 1.030 1.010 Hemoglobin/Blood,Ur Negative, Trace Negative pH, Urine 5.0 - 8.0 6.5 Protein, Urine Trace, Negative Negative Urobilinogen Negative Negative Nitrites Negative Negative Leukest Negative, 25 Sandra/uL 25 Sandra/uL WBC, Urine 0-5 /HPF 0-5 /HPF RBC, Urine 0-3 /HPF 0-3 /HPF Epithelial Cells /HPF Few Lipase 16 - 61 U/L 15 (L) Re[place]nor 0.6 - 1.2 mmol/L 0.4 (L) Culture No growth (<1,000 CFU/ml) MEDICATIONS: Current Outpatient Medications Medication Sig benztropine (COGENTIN) 0.5 mg tablet Take 0.5 mg by mouth twice daily. hydrOXYzine pamoate (VISTARIL) 25 mg capsule Take 25 mg by mouth. lithium carbonate (ESKALITH) 300 mg capsule sertraline (ZOLOFT) 100 mg tablet dicyclomine (BENTYL) 10 mg capsule Take 1 capsule by mouth before meals and at bedtime. omeprazole (PRILOSEC) 40 mg capsule Take 1 capsule by mouth once daily. ibuprofen (MOTRIN) 600 mg tablet Take 1 tablet by mouth every 6 hours as needed for pain. traZODone (DESYREL) 50 mg tablet Take 150 mg by mouth daily at bedtime. ondansetron orally disintegrating (ZOFRAN ODT) 4 mg disintegrating tablet Take 1 tablet by mouth every 8 hours as needed for Nausea/Vomiting. albuterol HFA (PROVENTIL HFA, VENTOLIN HFA) 90 mcg/actuation inhaler Inhale 2 Puffs as instructed every 4 hours as needed. fluticasone (FLOVENT HFA) 110 mcg/actuation inhaler Inhale 2 Puffs as instructed twice daily. (Patient taking differently: Inhale 2 Puffs as instructed as needed.) INVEGA SUSTENNA 234 mg/1.5 mL syrg Inject 234 Units intramuscularly every 4 weeks. Every three months lamoTRIgine (LAMICTAL) 150 mg tablet Take 1 tablet by mouth twice daily. No current facility-administered medications for this visit. 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 [facility] 07-01-2022 History of Present illness Narrative Patient presents with: Abdominal Pain: 2 day follow up HPI: Patient presents today for office visit for follow up. Abdominal pain still comes and goes. Better than it was. 5/10 on pain scale. No fever or chills. No nausea or vomiting. No bentyl does help. No urinary issues. Did move his bowel ok. No black or bloody stools. Kub is pending. Review labs See previous ov: Patient presents today for office visit for abdominal pain that started 1 week ago. Pain came on suddenly. Refers to a constant sharp pain. Scale 9/10 pain always. Was taking some of moms bentyl with mild relief. He points to pain being in the luq. Denies nausea and vomiting. No diarrhea. Has not been able to have BM in 2 days. BM's are typically normal and regular. Comes out easy. Does not have to strain. Denies fever. Last bm was normal. No black or bloody. No issues urinating. No acid brash. Is using omeprazole. Was put on lithium in the hospital in the past and she wondered if it was upsetting his stomach. Component Latest Ref Rng & Units 06/29/2022 WBC 3.70 - 11.00 k/uL 7.46 RBC 4.20 - 6.00 m/uL 5.10 Hemoglobin 13.0 - 17.0 g/dL 13.1 Hematocrit 39.0 - 51.0 % 41.2 MCV 80.0 - 100.0 fL 80.8 MCH 26.0 - 34.0 pg 25.7 (L) MCHC 30.5 - 36.0 g/dL 31.8 RDW-CV 11.5 - 15.0 % 14.5 Platelet Count 150 - 400 k/uL 335 MPV 9.0 - 12.7 fL 9.2 Neut% % 55.9 Abs Neut (ANC) 1.45 - 7.50 k/uL 4.17 Lymph% % 36.5 Abs Lymph 1.00 - 4.00 k/uL 2.72 [place]% % 7.2 Abs [place] <0.87 k/uL 0.54 Eosin% % 0.0 Abs Eosin <0.46 k/uL <0.03 Baso% % 0.1 Abs Baso <0.11 k/uL <0.03 Immature Gran % % 0.3 IMMATURE GRANS (ABS) <0.10 k/uL <0.03 NRBC /100 WBC 0.0 Absolute nRBC <0.01 k/uL <0.01 DTYPE Auto Protein, Total 6.3 - 8.0 g/dL 6.8 Albumin 3.9 - 4.9 g/dL 4.4 Calcium 8.5 - 10.2 mg/dL 9.4 Bilirubin, Total 0.2 - 1.3 mg/dL 0.2 Alkaline Phosphatase 38 - 113 U/L 106 AST 14 - 40 U/L 15 ALT 10 - 54 U/L 21 Glucose 74 - 99 mg/dL 89 BUN 9 - 24 mg/dL 7 (L) Creatinine 0.73 - 1.22 mg/dL 0.92 Sodium 136 - 144 mmol/L 138 Potassium 3.7 - 5.1 mmol/L 4.3 Chloride 97 - 105 mmol/L 102 CO2 22 - 30 mmol/L 22 Anion Gap 9 - 18 mmol/L 14 eGFR >=60 mL/min/1.73m 116 Color Yellow Yellow Clarity Clear Clear Glucose, Urine Trace, Negative Negative Bilirubin, Urine Negative Negative Ketones, Urine Trace, Negative Negative Specific [place], Ur 1.005 - 1.030 1.010 Hemoglobin/Blood,Ur Negative, Trace Negative pH, Urine 5.0 - 8.0 6.5 Protein, Urine Trace, Negative Negative Urobilinogen Negative Negative Nitrites Negative Negative Leukest Negative, 25 Sandra/uL 25 Sandra/uL WBC, Urine 0-5 /HPF 0-5 /HPF RBC, Urine 0-3 /HPF 0-3 /HPF Epithelial Cells /HPF Few Lipase 16 - 61 U/L 15 (L) [place] 0.6 - 1.2 mmol/L 0.4 (L) Culture No growth (<1,000 CFU/ml) MEDICATIONS: Current Outpatient Medications Medication Sig benztropine (COGENTIN) 0.5 mg tablet Take 0.5 mg by mouth twice daily. hydrOXYzine pamoate (VISTARIL) 25 mg capsule Take 25 mg by mouth. lithium carbonate (ESKALITH) 300 mg capsule sertraline (ZOLOFT) 100 mg tablet dicyclomine (BENTYL) 10 mg capsule Take 1 capsule by mouth before meals and at bedtime. omeprazole (PRILOSEC) 40 mg capsule Take 1 capsule by mouth once daily. ibuprofen (MOTRIN) 600 mg tablet Take 1 tablet by mouth every 6 hours as needed for pain. traZODone (DESYREL) 50 mg tablet Take 150 mg by mouth daily at bedtime. ondansetron orally disintegrating (ZOFRAN ODT) 4 mg disintegrating tablet Take 1 tablet by mouth every 8 hours as needed for Nausea/Vomiting. albuterol HFA (PROVENTIL HFA, VENTOLIN HFA) 90 mcg/actuation inhaler Inhale 2 Puffs as instructed every 4 hours as needed. fluticasone (FLOVENT HFA) 110 mcg/actuation inhaler Inhale 2 Puffs as instructed twice daily. (Patient taking differently: Inhale 2 Puffs as instructed as needed.) INVEGA SUSTENNA 234 mg/1.5 mL syrg Inject 234 Units intramuscularly every 4 weeks. Every three months lamoTRIgine (LAMICTAL) 150 mg tablet Take 1 tablet by mouth twice daily. No current facility-administered medications for this visit. 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 mom lost 6 before him. premature labor. delivered emergency because cord wrapped around his neck . born 8 lbs. went home with mom. PMH - PAST MEDICAL HISTORY OF HIGH FUNCTIONING AUTISM PMH - PAST MEDICAL HISTORY OF PRIMARY IMMUNE DEFICENCY Pseudoseizure 2014 PAST SURGICAL HISTORY Procedure Laterality Date LAPAROSCOPY SURG CHOLECYSTECTOMY 01/26/2021 MYRINGOTOMY ASPIR&/EUSTACHIAN TUBE NFLTJ ANES Myringotomy/tubes PAST SURGICAL HISTORY OF toe spur REMOVAL GALLBLADDER 01/26/2021 RPR UMBILICAL HERNIA < 5 YRS REDUCIBLE Hernia repair, umbilical - repair of diastasis recti FAMILY HISTORY Problem Relation Age of Onset Allergies Mother Arthritis Mother Hypertension Mother Alcohol/Drug Mother Diabetes Mother Hypertension Father Stroke Father Allergies Maternal Grandmother Arthritis Maternal Grandmother Diabetes Maternal Grandmother Hypertension Maternal Grandmother Arthritis Maternal Grandfather Hypertension Maternal Grandfather Seizures Maternal Grandfather Stroke Maternal Grandfather Hypertension Paternal Grandmother Hypertension Paternal Grandfather Social History Tobacco Use Smoking status: Never Smokeless tobacco: Never Vaping Use Vaping Use: Never used Substance Use Topics Alcohol use: No Drug use: No Reviewed current medications, allergies, past medical history, surgical history, family history and social history today. REVIEW OF SYSTEMS All other reviewed and negative other than HPI. VITALS: BP 112/70 Pulse 79 Ht 185.4 cm (6' 1 ) Wt (!) 144.2 kg (318 lb) SpO2 96% BMI 41.96 kg/m Last 4 Encounter Wt Readings: Date: Wt: 06/29/2022 144.2 kg (318 lb) 03/26/2022 144.7 kg (319 lb) 03/24/2022 146.1 kg (322 lb) 05/25/2021 138.8 kg (306 lb) PHYSICAL EXAMINATION: General appearance: Well appearing, alert, in no acute distress, well-hydrated, well nourished. Skin: Skin color, texture, turgor normal, no suspicious rashes or lesions Head: Normocephalic, no masses, lesions, tenderness or abnormalities Lungs: Lungs clear to auscultation. No wheezing, rhonchi, rales Heart: RRR without murmur, gallop, or rubs. No ectopy Abdomen: Normal abdominal exam, Abdomen soft, non-tender. Bowel sounds normal. No masses, organomegaly Extremities: No deformities, edema, skin discoloration, clubbing or cyanosis. Good capillary refill. ASSESSMENT/PLAN: 1. Generalized abdominal pain - ICD9: 789.07, ICD10: R10.84 - use bentyl prn. Light diet. Call if worsens or not better in next week. Overall is feeling better today. MD Rich Mirza MD documented in this encounter [facility] 07-01-2022 Miscellaneous Notes Faxed as requested. Can we fax his labs to his psychiatrist? We did his lithium level. He is coming in for recheck this week to see me documented in this encounter [facility] 07-01-2022 Miscellaneous Notes Faxed as requested. MARTHA Marti in [email or web address] calling for Reasnor level lab result. Advised lab is still in process. She is requesting lab result be faxed to when available. Luz Elena Lyons RN documented in this encounter [facility] 06-29-2022 Note HNO ID: [id number] Author: RT Santiago(R) Service: Radiology Author Type: Technologist Type: Progress Notes Filed: 06/29/2022 5:11 PM Note Text: Radiology Service Progress Note PATIENT NAME: Levy Todd DATE OF SERVICE: June 29, 2022 TIME: 5:01 PM PATIENT IDENTITY VERIFICATION COMPLETED USING TWO (2) IDENTIFIERS: Name and Date of confirmed by patient verbally. FALL SCREENING: Has the patient had 2 falls in the last year or 1 fall with injury or currently using an Ambulatory Assistive Device (Walker, Cane, Wheelchair, Crutches, etc.)? No PATIENT GENDER DATA: Male PATIENT RELEVANT IMPLANT DATA REVIEWED: Yes RADIOLOGY DEPARTMENT: General X-ray: Exam(s) Completed: Abdomen X-Ray: Abdomen PERIPHERAL IV DATA: Not applicable SIGNED BY: RT Santiago(R) June 29, 2022 5:01 PM [facility] 06-29-2022 Note HNO ID: [id number] Author: Rich Quick MD Service: ? Author Type: Physician Type: Progress Notes Filed: 06/29/2022 4:34 PM Note Text: Patient presents with: Abdominal Pain HPI: Patient presents today for office visit for abdominal pain that started 1 week ago. Pain came on suddenly. Refers to a constant sharp pain. Scale 9/10 pain always. Was taking some of moms bentyl with mild relief. He points to pain being in the luq. Denies nausea and vomiting. No diarrhea. Has not been able to have BM in 2 days. BM's are typically normal and regular. Comes out easy. Does not have to strain. Denies fever. Last bm was normal. No black or bloody. No issues urinating. No acid brash. Is using omeprazole. Was put on lithium in the hospital in the past and she wondered if it was upsetting his stomach. MEDICATIONS: Current Outpatient Medications Medication Sig benztropine (COGENTIN) 0.5 mg tablet Take 0.5 mg by mouth twice daily. hydrOXYzine pamoate (VISTARIL) 25 mg capsule Take 25 mg by mouth. lithium carbonate (ESKALITH) 300 mg capsule sertraline (ZOLOFT) 100 mg tablet omeprazole (PRILOSEC) 40 mg capsule Take 1 capsule by mouth once daily. ibuprofen (MOTRIN) 600 mg tablet Take 1 tablet by mouth every 6 hours as needed for pain. traZODone (DESYREL) 50 mg tablet Take 150 mg by mouth daily at bedtime. ondansetron orally disintegrating (ZOFRAN ODT) 4 mg disintegrating tablet Take 1 tablet by mouth every 8 hours as needed for Nausea/Vomiting. albuterol HFA (PROVENTIL HFA, VENTOLIN HFA) 90 mcg/actuation inhaler Inhale 2 Puffs as instructed every 4 hours as needed. fluticasone (FLOVENT HFA) 110 mcg/actuation inhaler Inhale 2 Puffs as instructed twice daily. (Patient taking differently: Inhale 2 Puffs as instructed as needed.) INVEGA SUSTENNA 234 mg/1.5 mL syrg Inject 234 Units intramuscularly every 4 weeks. Every three months lamoTRIgine (LAMICTAL) 150 mg tablet Take 1 tablet by mouth twice daily. No current facility-administered medications for this visit. 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 mom lost 6 before him. premature labor. delivered emergency because cord wrapped around his neck . born 8 lbs. went home with mom. PMH - PAST MEDICAL HISTORY OF HIGH FUNCTIONING AUTISM PMH - PAST MEDICAL HISTORY OF PRIMARY IMMUNE DEFICENCY Pseudoseizure 2014 PAST SURGICAL HISTORY Procedure Laterality Date LAPAROSCOPY SURG CHOLECYSTECTOMY 01/26/2021 MYRINGOTOMY ASPIRAND/EUSTACHIAN TUBE NFLTJ ANES Myringotomy/tubes PAST SURGICAL HISTORY OF toe spur REMOVAL GALLBLADDER 01/26/2021 RPR UMBILICAL HERNIA < 5 YRS REDUCIBLE Hernia repair, umbilical - repair of diastasis recti FAMILY HISTORY Problem Relation Age of Onset Allergies Mother Arthritis Mother Hypertension Mother Alcohol/Drug Mother Diabetes Mother Hypertension Father Stroke Father Allergies Maternal Grandmother Arthritis Maternal Grandmother Diabetes Maternal Grandmother Hypertension Maternal Grandmother Arthritis Maternal Grandfather Hypertension Maternal Grandfather Seizures Maternal Grandfather Stroke Maternal Grandfather Hypertension Paternal Grandmother Hypertension Paternal Grandfather Social History Tobacco Use Smoking status: Never Smokeless tobacco: Never Vaping Use Vaping Use: Never used Substance Use Topics Alcohol use: No Drug use: No Reviewed current medications, allergies, past medical history, surgical history, family history and social history today. REVIEW OF SYSTEMS All other reviewed and negative other than HPI. VITALS: BP 90/62 Pulse 78 Temp 36.1 ?C (97 ?F) Ht 185.4 cm (6' 1 ) Wt (!) 144.2 kg (318 lb) SpO2 96% BMI 41.96 kg/m? Last 4 Encounter Wt Readings: Date: Wt: 03/26/2022 144.7 kg (319 lb) 03/24/2022 146.1 kg (322 lb) 05/25/2021 138.8 kg (306 lb) 04/14/2021 143.5 kg (316 lb 6.4 oz) PHYSICAL EXAMINATION: General appearance: Well appearing, alert, in no acute distress, well-hydrated, well nourished. Skin: Skin color, texture, turgor normal, no suspicious rashes or lesions Head: Normocephalic, no masses, lesions, tenderness or abnormalities Lungs: Lungs clear to auscultation. No wheezing, rhonchi, rales Heart: RRR without murmur, gallop, or rubs. No e (more content not included)... [facility] 06-29-2022 History of Present illness Narrative Patient presents with: Abdominal Pain HPI: Patient presents today for office visit for abdominal pain that started 1 week ago. Pain came on suddenly. Refers to a constant sharp pain. Scale 9/10 pain always. Was taking some of moms bentyl with mild relief. He points to pain being in the luq. Denies nausea and vomiting. No diarrhea. Has not been able to have BM in 2 days. BM's are typically normal and regular. Comes out easy. Does not have to strain. Denies fever. Last bm was normal. No black or bloody. No issues urinating. No acid brash. Is using omeprazole. Was put on lithium in the hospital in the past and she wondered if it was upsetting his stomach. MEDICATIONS: Current Outpatient Medications Medication Sig benztropine (COGENTIN) 0.5 mg tablet Take 0.5 mg by mouth twice daily. hydrOXYzine pamoate (VISTARIL) 25 mg capsule Take 25 mg by mouth. lithium carbonate (ESKALITH) 300 mg capsule sertraline (ZOLOFT) 100 mg tablet omeprazole (PRILOSEC) 40 mg capsule Take 1 capsule by mouth once daily. ibuprofen (MOTRIN) 600 mg tablet Take 1 tablet by mouth every 6 hours as needed for pain. traZODone (DESYREL) 50 mg tablet Take 150 mg by mouth daily at bedtime. ondansetron orally disintegrating (ZOFRAN ODT) 4 mg disintegrating tablet Take 1 tablet by mouth every 8 hours as needed for Nausea/Vomiting. albuterol HFA (PROVENTIL HFA, VENTOLIN HFA) 90 mcg/actuation inhaler Inhale 2 Puffs as instructed every 4 hours as needed. fluticasone (FLOVENT HFA) 110 mcg/actuation inhaler Inhale 2 Puffs as instructed twice daily. (Patient taking differently: Inhale 2 Puffs as instructed as needed.) INVEGA SUSTENNA 234 mg/1.5 mL syrg Inject 234 Units intramuscularly every 4 weeks. Every three months lamoTRIgine (LAMICTAL) 150 mg tablet Take 1 tablet by mouth twice daily. No current facility-administered medications for this visit. 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 mom lost 6 before him. premature labor. delivered emergency because cord wrapped around his neck . born 8 lbs. went home with mom. PMH - PAST MEDICAL HISTORY OF HIGH FUNCTIONING AUTISM PMH - PAST MEDICAL HISTORY OF PRIMARY IMMUNE DEFICENCY Pseudoseizure 2014 PAST SURGICAL HISTORY Procedure Laterality Date LAPAROSCOPY SURG CHOLECYSTECTOMY 01/26/2021 MYRINGOTOMY ASPIR&/EUSTACHIAN TUBE NFLTJ ANES Myringotomy/tubes PAST SURGICAL HISTORY OF toe spur REMOVAL GALLBLADDER 01/26/2021 RPR UMBILICAL HERNIA < 5 YRS REDUCIBLE Hernia repair, umbilical - repair of diastasis recti FAMILY HISTORY Problem Relation Age of Onset Allergies Mother Arthritis Mother Hypertension Mother Alcohol/Drug Mother Diabetes Mother Hypertension Father Stroke Father Allergies Maternal Grandmother Arthritis Maternal Grandmother Diabetes Maternal Grandmother Hypertension Maternal Grandmother Arthritis Maternal Grandfather Hypertension Maternal Grandfather Seizures Maternal Grandfather Stroke Maternal Grandfather Hypertension Paternal Grandmother Hypertension Paternal Grandfather Social History Tobacco Use Smoking status: Never Smokeless tobacco: Never Vaping Use Vaping Use: Never used Substance Use Topics Alcohol use: No Drug use: No Reviewed current medications, allergies, past medical history, surgical history, family history and social history today. REVIEW OF SYSTEMS All other reviewed and negative other than HPI. VITALS: BP 90/62 Pulse 78 Temp 36.1 C (97 F) Ht 185.4 cm (6' 1 ) Wt (!) 144.2 kg (318 lb) SpO2 96% BMI 41.96 kg/m Last 4 Encounter Wt Readings: Date: Wt: 03/26/2022 144.7 kg (319 lb) 03/24/2022 146.1 kg (322 lb) 05/25/2021 138.8 kg (306 lb) 04/14/2021 143.5 kg (316 lb 6.4 oz) PHYSICAL EXAMINATION: General appearance: Well appearing, alert, in no acute distress, well-hydrated, well nourished. Skin: Skin color, texture, turgor normal, no suspicious rashes or lesions Head: Normocephalic, no masses, lesions, tenderness or abnormalities Lungs: Lungs clear to auscultation. No wheezing, rhonchi, rales Heart: RRR without murmur, gallop, or rubs. No ectopy Abdomen: bs positive, nondistended. Mild epigastric and luq pain. No rebound or guarding. Extremities: No deformities, edema, skin discoloration, clubbing or cyanosis. Good capillary refill. ASSESSMENT/PLAN: 1. Epigastric pain - ICD9: 789.06, ICD10: R10.13 (primary diagnosis) - etiology to be determined. Can continue prilosec and bentyl. Exam is benign enough he does not need to go to er tonight, however, Red flags for re-assessment reviewed with patient in detail. Recheck in 48 hours or prn. Labs and xray tonight. - CBC + DIFF - COMP METABOLIC PANEL - LIPASE BLD - DICYCLOMINE 10 MG CAPSULE - URINALYSIS, WITH MICROSCOPIC - URINE CULTURE - XR ABDOMEN 1V SUPINE 2. Left upper quadrant abdominal pain - ICD9: 789.02, ICD10: R10.12 - CBC + DIFF - COMP METABOLIC PANEL - LIPASE BLD - DICYCLOMINE 10 MG CAPSULE - URINALYSIS, WITH MICROSCOPIC - URINE CULTURE - XR ABDOMEN 1V SUPINE 3. Medication monitoring encounter - ICD9: V58.83, ICD10: Z51.81 - LITHIUM BLD Rich Quick MD documented in this encounter [facility] 03-26-2022 Note HNO ID: [id number] Author: Daniel Waldron PA-C Service: ? Author Type: Physician Saddle Stitching Machine Operator Type: Progress Notes Filed: 03/26/2022 10:56 AM Note Text: [facility] NEW PATIENT CLINIC NOTE SERVICE DATE: 03/26/2022 SERVICE TIME: 9:43 AM NAME: Levy Todd CHIEF COMPLAINT: Dysuria HISTORY OF PRESENT ILLNESS: Levy Todd is a 26 year old male with PMH including Epilepsy and GERD presenting with follow-up from visit for dysuria The patient reports having burning with urination , urine culture was negative, after review of past and current labs and imaging He has benign renal cysts as well no concerns at this time, just keep an eye on them with US every 1-2 years, The most likely cause is dehydration, he has very high SG on urine dip and the color is very dark yellow which will change to color of the dip test and Often see positive for blood , he has no micro or gross blood. FLUIDS: Needs to Increase water intake 64 oz 7a-7p CAFFEINE: none LUTS: DYSURIA: yes URGENCY: Yes FREQUENCY:6 per day NOCTURIA: 1 per night STRAINING TO VOID: No EMPTIES COMPLETELY: Yes UTI: No GROSS HEMATURIA: no UA DIPSTICK POSITIVE ONLY: yes Other symptoms: LABS: No results found for: TESTOST No results found for: TESTFREE No results found for: PSA Hematocrit (%) Date Value 03/24/2022 42.4 12/23/2020 41.1 01/15/2016 42.2 04/09/2015 41.0 No results found for: PSA Creatinine Date Value Ref Range Status 03/24/2022 0.74 0.73 - 1.22 mg/dL Final 12/23/2020 0.76 0.73 - 1.22 mg/dL Final 10/23/2018 0.75 0.73 - 1.22 mg/dL Final 01/15/2016 0.94 0.73 - 1.22 mg/dL Final . MEDICATIONS: ibuprofen (MOTRIN) 600 mg tablet Take 1 tablet by mouth every 6 hours as needed for pain. omeprazole (PRILOSEC) 40 mg capsule Take 1 capsule by mouth once daily. Mirtazapine (REMERON) 7.5 mg tablet Take 1 tablet by mouth daily at bedtime. traZODone (DESYREL) 50 mg tablet Take 1 tablet by mouth daily at bedtime. OLANZapine (ZYPREXA) 5 mg tablet Take 1 tablet by mouth daily at bedtime. ondansetron orally disintegrating (ZOFRAN ODT) 4 mg disintegrating tablet Take 1 tablet by mouth every 8 hours as needed for Nausea/Vomiting. docusate sodium (STOOL SOFTENER) 100 mg capsule Take 2 capsules by mouth twice daily. (Patient taking differently: Take 200 mg by mouth as needed.) albuterol HFA (PROVENTIL HFA, VENTOLIN HFA) 90 mcg/actuation inhaler Inhale 2 Puffs as instructed every 4 hours as needed. fluticasone (FLOVENT HFA) 110 mcg/actuation inhaler Inhale 2 Puffs as instructed twice daily. (Patient taking differently: Inhale 2 Puffs as instructed as needed.) INVEGA SUSTENNA 234 mg/1.5 mL syrg Inject 234 Units intramuscularly every 4 weeks. Every three months lamoTRIgine (LAMICTAL) 150 mg tablet Take 1 tablet by mouth twice daily. cyclobenzaprine (FLEXERIL) 5 mg tablet Take 1 tablet by mouth three times daily as needed. 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 mom lost 6 before him. premature labor. delivered emergency because cord wrapped around his neck . born 8 lbs. went home with mom. PMH - PAST MEDICAL HISTORY OF HIGH FUNCTIONING AUTISM PMH - PAST MEDICAL HISTORY OF PRIMARY IMMUNE DEFICENCY Pseudoseizure 2014 PAST SURGICAL HISTORY: PAST SURGICAL HISTORY Procedure Laterality Date LAPAROSCOPY SURG CHOLECYSTECTOMY 01/26/2021 MYRINGOTOMY ASPIRAND/EUSTACHIAN TUBE NFLTJ ANES Myringotomy/tubes PAST SURGICAL HISTORY OF toe spur REMOVAL GALLBLADDER 01/26/2021 RPR UMBILICAL HERNIA < 5 YRS REDUCIBLE Hernia repair, umbilical - repair of diastasis recti FAMILY HISTORY: FAMILY HISTORY Problem Relation Age of Onset Allergies Mother Arthritis Mother Hypertension Mother Alcohol/Drug Mother Diabetes Mother Hypertension Father Stroke Father Allergies Maternal Grandmother Arthritis Maternal Grandmother Diabetes Maternal Grandmother Hypertension Maternal Grandmother Arthritis Maternal Grandfather Hypertension Maternal Grandfather Seizures Maternal Grandfather Stroke Maternal Grandfather Hypertension Paternal Grandmother Hypertension Paternal Grandfather SOCIAL HISTORY: Social Connections: Moderately Integrated Frequency of Communicati (more content not included)... [facility] 03-26-2022 Note HNO ID: [id number] Author: Izzy Goode LPN Service: ? Author Type: ? Type: Progress Notes Filed: 03/26/2022 10:56 AM Note Text: Verified name and date of . CC Post Void Residual HPI: Levy Todd is a 26 year old male. The patient is here now for an appointment with ESDRAS Wilson, [place], PA-COV. Procedure: Explained procedure to patient and verbalizes understanding. Performed a PVR. Patient urinated and instructed to empty bladder as much as possible just prior to having PVR done using bladder ultrasound scanner. Results of scan: 0 mL The patient tolerated the procedure well. Plan: Appointment with Daniel. [facility] 03-25-2022 Miscellaneous Notes Left message for patient with negative results and recommendations.Keesha Brown LPN ----- Message from Michelle Wang APRN.DIRECTOR [employer] sent at 03/25/2022 2:43 PM EST ----- Please advise patient the urine culture was negative (no sign of infection). He should follow up with urology as advised at the visit. documented in this encounter [facility] 03-24-2022 Note HNO ID: [id number] Author: Jatin Brown MD Service: ? Author Type: Physician Type: Progress Notes Filed: 03/24/2022 12:01 PM Note Text: Patient presents with: Urinary Frequency: burning with urination x 1 day HPI: Symptoms since yesterday. Dysuria: Yes Frequency: some Polyuria: no Hematuria: No Discharge: no Nausea: No. Denies diarrhea or constipation. 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 mom lost 6 before him. premature labor. delivered emergency because cord wrapped around his neck . born 8 lbs. went home with mom. PMH - PAST MEDICAL HISTORY OF HIGH FUNCTIONING AUTISM PMH - PAST MEDICAL HISTORY OF PRIMARY IMMUNE DEFICENCY Pseudoseizure 2014 PAST SURGICAL HISTORY Procedure Laterality Date LAPAROSCOPY SURG CHOLECYSTECTOMY 01/26/2021 MYRINGOTOMY ASPIRAND/EUSTACHIAN TUBE NFLTJ ANES Myringotomy/tubes PAST SURGICAL HISTORY OF toe spur RPR UMBILICAL HERNIA < 5 YRS REDUCIBLE Hernia repair, umbilical - repair of diastasis recti MEDICATIONS: Current Outpatient Medications Medication Sig omeprazole (PRILOSEC) 40 mg capsule Take 1 capsule by mouth once daily. Mirtazapine (REMERON) 7.5 mg tablet Take 1 tablet by mouth daily at bedtime. traZODone (DESYREL) 50 mg tablet Take 1 tablet by mouth daily at bedtime. OLANZapine (ZYPREXA) 5 mg tablet Take 1 tablet by mouth daily at bedtime. ondansetron orally disintegrating (ZOFRAN ODT) 4 mg disintegrating tablet Take 1 tablet by mouth every 8 hours as needed for Nausea/Vomiting. ibuprofen (MOTRIN) 600 mg tablet Take 1 tablet by mouth every 6 hours as needed for Pain. docusate sodium (STOOL SOFTENER) 100 mg capsule Take 2 capsules by mouth twice daily. (Patient taking differently: Take 200 mg by mouth as needed.) albuterol HFA (PROVENTIL HFA, VENTOLIN HFA) 90 mcg/actuation inhaler Inhale 2 Puffs as instructed every 4 hours as needed. fluticasone (FLOVENT HFA) 110 mcg/actuation inhaler Inhale 2 Puffs as instructed twice daily. (Patient taking differently: Inhale 2 Puffs as instructed as needed.) INVEGA SUSTENNA 234 mg/1.5 mL syrg Inject 234 Units intramuscularly every 4 weeks. lamoTRIgine (LAMICTAL) 150 mg tablet Take 1 tablet by mouth twice daily. (Patient taking differently: Take 100 mg by mouth twice daily.) cyclobenzaprine (FLEXERIL) 5 mg tablet Take 1 tablet by mouth three times daily as needed. (Patient not taking: Reported on 02/23/2021 ) Inhaler,Assist Devices,Access (OPTICHAMBER ADULT MASK-LARGE) ritu Dispense one mask (Patient not taking: Reported on 03/04/2021 ) No current facility-administered medications for this visit. ALLERGIES: ALLERGIES Allergen Reactions Concerta [Methylphe* Other: See Comments hyper Depakote [Divalproe* Intolerance Phenobarbital Intolerance Ritalin [Methylphen* Intolerance hyper VITALS: BP 122/80 Pulse 116 Temp 36.5 ?C (97.7 ?F) Resp 18 Wt (!) 146.1 kg (322 lb) SpO2 96% BMI 42.48 kg/m? PHYSICAL EXAM: GEN: NAD HEENT: EOMI, conjunctiva clear, moist mucous membranes HEART: regular rate and rhythm during my exam, no murmurs LUNGS: clear to auscultation, no wheezes or crackles, no increased WOB ABDOMEN: Soft, nondistended, no masses, bilateral lower and suprapubic tenderness BACK: No CVA tenderness Component Latest Ref Rng AND Units 12/23/2020 eGFR-All Other Races . >60 ASSESSMENT/PLAN: 1. Dysuria - ICD9: 788.1, ICD10: R30.0 (primary diagnosis) 2. Urinary frequency - ICD9: 788.41, ICD10: R35.0 3. Microscopic hematuria - ICD9: 599.72, ICD10: R31.29 4. History of kidney stones - ICD9: V13.01, ICD10: Z87.442 - UA DIP, URINE (POC) - small blood only - URINE CULTURE Suspect renal calculus. Will treat if sufficient growth on culture or additional UTI symptoms. - CONSULT TO UROLOGY - BASIC METABOLIC PNL - CBC + DIFF - CONSULT TO UROLOGY Increase fluids PRN- IBUPROFEN 600 MG TABLET Jatin Brown MD [facility] 03-24-2022 History of Present illness Narrative Patient presents with: Urinary Frequency: burning with urination x 1 day HPI: Symptoms since yesterday. Dysuria: Yes Frequency: some Polyuria: no Hematuria: No Discharge: no Nausea: No. Denies diarrhea or constipation. 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 mom lost 6 before him. premature labor. delivered emergency because cord wrapped around his neck . born 8 lbs. went home with mom. PMH - PAST MEDICAL HISTORY OF HIGH FUNCTIONING AUTISM PMH - PAST MEDICAL HISTORY OF PRIMARY IMMUNE DEFICENCY Pseudoseizure 2014 PAST SURGICAL HISTORY Procedure Laterality Date LAPAROSCOPY SURG CHOLECYSTECTOMY 01/26/2021 MYRINGOTOMY ASPIR&/EUSTACHIAN TUBE NFLTJ ANES Myringotomy/tubes PAST SURGICAL HISTORY OF toe spur RPR UMBILICAL HERNIA < 5 YRS REDUCIBLE Hernia repair, umbilical - repair of diastasis recti MEDICATIONS: Current Outpatient Medications Medication Sig omeprazole (PRILOSEC) 40 mg capsule Take 1 capsule by mouth once daily. Mirtazapine (REMERON) 7.5 mg tablet Take 1 tablet by mouth daily at bedtime. traZODone (DESYREL) 50 mg tablet Take 1 tablet by mouth daily at bedtime. OLANZapine (ZYPREXA) 5 mg tablet Take 1 tablet by mouth daily at bedtime. ondansetron orally disintegrating (ZOFRAN ODT) 4 mg disintegrating tablet Take 1 tablet by mouth every 8 hours as needed for Nausea/Vomiting. ibuprofen (MOTRIN) 600 mg tablet Take 1 tablet by mouth every 6 hours as needed for Pain. docusate sodium (STOOL SOFTENER) 100 mg capsule Take 2 capsules by mouth twice daily. (Patient taking differently: Take 200 mg by mouth as needed.) albuterol HFA (PROVENTIL HFA, VENTOLIN HFA) 90 mcg/actuation inhaler Inhale 2 Puffs as instructed every 4 hours as needed. fluticasone (FLOVENT HFA) 110 mcg/actuation inhaler Inhale 2 Puffs as instructed twice daily. (Patient taking differently: Inhale 2 Puffs as instructed as needed.) INVEGA SUSTENNA 234 mg/1.5 mL syrg Inject 234 Units intramuscularly every 4 weeks. lamoTRIgine (LAMICTAL) 150 mg tablet Take 1 tablet by mouth twice daily. (Patient taking differently: Take 100 mg by mouth twice daily.) cyclobenzaprine (FLEXERIL) 5 mg tablet Take 1 tablet by mouth three times daily as needed. (Patient not taking: Reported on 02/23/2021 ) Inhaler,Assist Devices,Access (OPTICHAMBER ADULT MASK-LARGE) ritu Dispense one mask (Patient not taking: Reported on 03/04/2021 ) No current facility-administered medications for this visit. ALLERGIES: ALLERGIES Allergen Reactions Concerta [Methylphe* Other: See Comments hyper Depakote [Divalproe* Intolerance Phenobarbital Intolerance Ritalin [Methylphen* Intolerance hyper VITALS: BP 122/80 Pulse 116 Temp 36.5 C (97.7 F) Resp 18 Wt (!) 146.1 kg (322 lb) SpO2 96% BMI 42.48 kg/m PHYSICAL EXAM: GEN: NAD HEENT: EOMI, conjunctiva clear, moist mucous membranes HEART: regular rate and rhythm during my exam, no murmurs LUNGS: clear to auscultation, no wheezes or crackles, no increased WOB ABDOMEN: Soft, nondistended, no masses, bilateral lower and suprapubic tenderness BACK: No CVA tenderness Component Latest Ref Rng & Units 12/23/2020 eGFR-All Other Races . >60 ASSESSMENT/PLAN: 1. Dysuria - ICD9: 788.1, ICD10: R30.0 (primary diagnosis) 2. Urinary frequency - ICD9: 788.41, ICD10: R35.0 3. Microscopic hematuria - ICD9: 599.72, ICD10: R31.29 4. History of kidney stones - ICD9: V13.01, ICD10: Z87.442 - UA DIP, URINE (POC) - small blood only - URINE CULTURE Suspect renal calculus. Will treat if sufficient growth on culture or additional UTI symptoms. - CONSULT TO UROLOGY - BASIC METABOLIC PNL - CBC + DIFF - CONSULT TO UROLOGY Increase fluids PRN- IBUPROFEN 600 MG TABLET Jatin Brown MD documented in this encounter [facility] 02-01-2022 Note HNO ID: [id number] Author: Francy Mittal APRN.[employer] Service: ? Author Type: Nurse Practitioner Type: Progress Notes Filed: 02/01/2022 10:47 PM Note Text: Chief Complaint No chief complaint on file. Patient was offered a virtual/telemedicine appointment in lieu of an office visit due to recommendations to reduce patient exposure to COVID-19. Video was used for evaluation of this patient. Patient is aware of limitations of performing the visit without a face to face visit in the office setting and agrees. Patient agrees to the visit: Yes Patient Location: [facility] Levy Todd is a 26 year old male who is contacted today for a virtual visit This is an established patient of Dr. Rich Quick MD. Mother is present in the room. Reports: Pt presents today for positive covid home test. Symptoms started last night. He is having cough and congestion. No fevers/chills. No loss of taste/smell. + fatigue. No body aches. Little headache. No ear pain. A little sore throat. Intermittent nausea. No vomiting. No diarrhea. His mom tested positive -- of last week -- went to urgent care and was treated w/ paxlovid. Taking tylenol and robitussin. 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 mom lost 6 before him. premature labor. delivered emergency because cord wrapped around his neck . born 8 lbs. went home with mom. PMH - PAST MEDICAL HISTORY OF HIGH FUNCTIONING AUTISM PMH - PAST MEDICAL HISTORY OF PRIMARY IMMUNE DEFICENCY Pseudoseizure 2015 Previous Surgical History PAST SURGICAL HISTORY Procedure Laterality Date LAPAROSCOPY SURG CHOLECYSTECTOMY 01/26/2021 MYRINGOTOMY ASPIRAND/EUSTACHIAN TUBE NFLTJ ANES Myringotomy/tubes PAST SURGICAL HISTORY OF toe spur RPR UMBILICAL HERNIA < 5 YRS REDUCIBLE Hernia repair, umbilical - repair of diastasis recti Family History FAMILY HISTORY Problem Relation Age of Onset Allergies Mother Arthritis Mother Hypertension Mother Alcohol/Drug Mother Diabetes Mother Hypertension Father Stroke Father Allergies Maternal Grandmother Arthritis Maternal Grandmother Diabetes Maternal Grandmother Hypertension Maternal Grandmother Arthritis Maternal Grandfather Hypertension Maternal Grandfather Seizures Maternal Grandfather Stroke Maternal Grandfather Hypertension Paternal Grandmother Hypertension Paternal Grandfather Patient Allergies ALLERGIES Allergen Reactions Concerta [Methylphe* Other: See Comments hyper Depakote [Divalproe* Intolerance Phenobarbital Intolerance Ritalin [Methylphen* Intolerance hyper Current Medications Current Outpatient Medications on File Prior to Visit Medication Sig omeprazole (PRILOSEC) 40 mg capsule Take 1 capsule by mouth once daily. Mirtazapine (REMERON) 7.5 mg tablet Take 1 tablet by mouth daily at bedtime. traZODone (DESYREL) 50 mg tablet Take 1 tablet by mouth daily at bedtime. OLANZapine (ZYPREXA) 5 mg tablet Take 1 tablet by mouth daily at bedtime. cyclobenzaprine (FLEXERIL) 5 mg tablet Take 1 tablet by mouth three times daily as needed. (Patient not taking: Reported on 02/23/2021 ) ondansetron orally disintegrating (ZOFRAN ODT) 4 mg disintegrating tablet Take 1 tablet by mouth every 8 hours as needed for Nausea/Vomiting. ibuprofen (MOTRIN) 600 mg tablet Take 1 tablet by mouth every 6 hours as needed for Pain. docusate sodium (STOOL SOFTENER) 100 mg capsule Take 2 capsules by mouth twice daily. (Patient taking differently: Take 200 mg by mouth as needed. ) albuterol HFA (PROVENTIL HFA, VENTOLIN HFA) 90 mcg/actuation inhaler Inhale 2 Puffs as instructed every 4 hours as needed. fluticasone (FLOVENT HFA) 110 mcg/actuation inhaler Inhale 2 Puffs as instructed twice daily. (Patient taking differently: Inhale 2 Puffs as instructed as needed. ) Inhaler,Assist Devices,Access (OPTICHAMBER ADULT MASK-LARGE) ritu Dispense one mask (Patient not taking: Reported on 03/04/2021 ) INVEGA SUSTENNA 234 mg/1.5 mL syrg Inject 234 Units intramuscularly every 4 weeks. lamoTRIgine (LAMICTAL) 150 mg tablet Take 1 tablet by mouth twice daily. (Patient taking differently: Take 100 mg by mouth twice daily. ) No current facility-administered medications on file prior to visit. Social History Social History Tobacco Use Smoking status: Never Smokeless tobacco: Never Vaping Use Vaping Use: Never u (more content not included)... [facility] 02-01-2022 Instructions Francy Mittal APRN.[facility] 02/01/2022 4:31 PM EST FACT SHEET FOR PATIENTS, PARENTS, AND CAREGIVERS EMERGENCY USE AUTHORIZATION (EUA) OF PAXLOVID FOR CORONAVIRUS DISEASE 2019 (COVID-19) You are being given this Fact Sheet because your healthcare provider believes it is necessary to provide you with PAXLOVID for the treatment of ygnm-oc-surohhii coronavirus disease (COVID-19) caused by the SARS-CoV-2 virus. This Fact Sheet contains information to help you understand the risks and benefits of taking the PAXLOVID you have received or may receive. The U.S. Food and Drug Administration (FDA) has issued an Emergency Use Authorization (EUA) to make PAXLOVID available during the COVID-19 pandemic (for more details about an EUA please see What is an Emergency Use Authorization? at the end of this document). PAXLOVID is not an FDA-approved medicine in the [place]. Read this Fact Sheet for information about PAXLOVID. Talk to your healthcare provider about your options or if you have any questions. It is your choice to take PAXLOVID. What is COVID-19? COVID-19 is caused by a virus called a coronavirus. You can get COVID-19 through close contact with another person who has the virus. COVID-19 illnesses have ranged from very ridd-hc-dpqbds, including illness resulting in . While information so far suggests that most COVID-19 illness is mild, serious illness can happen and may cause some of your other medical conditions to become worse. Older people and people of all ages with severe, long lasting (chronic) medical conditions like heart disease, lung disease, and diabetes, for example seem to be at higher risk of being hospitalized for COVID-19. What is PAXLOVID? PAXLOVID is an investigational medicine used to treat mwyh-sq-zzmzqwxy COVID-19 in adults and children [12 years of age and older weighing at least 88 pounds (40 kg)] with positive results of direct SARS-CoV-2 viral testing, and who are at high risk for progression to severe COVID-19, including hospitalization or . PAXLOVID is investigational because it is still being studied. There is limited information about the safety and effectiveness of using PAXLOVID to treat people with fcnh-xp-sdooalgh COVID-19. The FDA has authorized the emergency use of PAXLOVID for the treatment of uqws-es-ysiqtlyh COVID-19 in adults and children [12 years of age and older weighing at least 88 pounds (40 kg)] with a positive test for the virus that causes COVID-19, and who are at high risk for progression to severe COVID-19, including hospitalization or , under an EUA. 1 Revised: 15 May 2021 What should I tell my healthcare provider before I take PAXLOVID? Tell your healthcare provider if you: Have any allergies Have liver or kidney disease Are or plan to become Are a child Have any serious illnesses Tell your healthcare provider about all the medicines you take, including prescription and aqlb-axj-zzviyyy medicines, vitamins, and herbal supplements. Some medicines may interact with PAXLOVID and may cause serious side effects. Keep a list of your medicines to show your healthcare provider and pharmacist when you get a new medicine. You can ask your healthcare provider or pharmacist for a list of medicines that interact with PAXLOVID. Do not start taking a new medicine without telling your healthcare provider. Your healthcare provider can tell you if it is safe to take PAXLOVID with other medicines. Tell your healthcare provider if you are taking combined hormonal contraceptive. PAXLOVID may affect how your control pills work. Females who are able to become should use another effective alternative form of contraception or an additional barrier method of contraception. Talk to your healthcare provider if you have any questions about contraceptive methods that might be right for you. How do I take PAXLOVID? PAXLOVID consists of 2 medicines: nirmatrelvir and ritonavir. Take 2 pink tablets of nirmatrelvir with 1 white tablet of ritonavir by mouth 2 times each day (in the morning and in the evening) for 5 days. For each dose, take all 3 tablets at the same time. If you have kidney disease, talk to your healthcare provider. You may need a different dose. Swallow the tablets whole. Do not chew, break, or crush the tablets. Take PAXLOVID with or without food. Do not stop taking PAXLOVID without talking to your healthcare provider, even if you feel better. If you miss a dose of PAXLOVID within 8 hours of the time it is usually taken, take it as soon as you remember. If you miss a dose by more than 8 hours, skip the missed dose and take the next dose at your regular time. Do not take 2 doses of PAXLOVID at the same time. If you take too much PAXLOVID, call your healthcare provider or go to the nearest hospital emergency room right away. If you are taking a ritonavir-or cobicistat-containing medicine to treat hepatitis C or Human Immunodeficiency Virus (HIV), you should continue to take your medicine as prescribed by your healthcare provider. Talk to your healthcare provider if you do not feel better or if you feel worse after 5 days. Who should generally not take PAXLOVID? Do not take PAXLOVID if: You are allergic to nirmatrelvir, ritonavir, or any of the ingredients in PAXLOVID You are taking any of the following medicines: Alfuzosin Pethidine, propoxyphene Ranolazine Amiodarone, dronedarone, flecainide, propafenone, quinidine Colchicine Lurasidone, pimozide, clozapine Dihydroergotamine, ergotamine, methylergonovine Lovastatin, simvastatin Sildenafil (Revatio ) for pulmonary arterial hypertension (PAH) Triazolam, oral midazolam Apalutamide Carbamazepine, phenobarbital, phenytoin Rifampin [place] s Wort (hypericum perforatum) Taking PAXLOVID with these medicines may cause serious or life-threatening side effects or affect how PAXLOVID works. These are not the only medicines that may cause serious side effects if taken with PAXLOVID. PAXLOVID may increase or decrease the levels of multiple other medicines. It is very important to tell your healthcare provider about all of the medicines you are taking because additional laboratory tests or changes in the dose of your other medicines may be necessary while you are taking PAXLOVID. Your healthcare provider may also tell you about specific symptoms to watch out for that may indicate that you need to stop or decrease the dose of some of your other medicines. What are the important possible side effects of PAXLOVID? Possible side effects of PAXLOVID are: Allergic Reactions. Allergic reactions can happen in people taking PAXLOVID, even after only 1 dose. Stop taking PAXLOVID and call your healthcare provider right away if you get any of the following symptoms of an allergic reaction: hives trouble swallowing or breathing swelling of the mouth, lips, or face throat tightness hoarseness skin rash Liver Problems. Tell your healthcare provider right away if you have any of these signs and symptoms of liver problems: loss of appetite, yellowing of your skin and the whites of eyes (jaundice), dark-colored urine, pale colored stools and itchy skin, stomach area (abdominal) pain. Resistance to HIV Medicines. If you have untreated HIV infection, PAXLOVID may lead to some HIV medicines not working as well in the future. Other possible side effects include: altered sense of taste diarrhea high blood pressure muscle aches These are not all the possible side effects of PAXLOVID. Not many people have taken PAXLOVID. Serious and unexpected side effects may happen. PAXLOVID is still being studied, so it is possible that all of the risks are not known at this time. What other treatment choices are there? Veklury (remdesivir) is FDA-approved for the treatment of udts-xz-qcywtmtf COVID-19 in certain adults and children. Talk with your doctor to see if Veklury is appropriate for you. Like PAXLOVID, FDA may also allow for the emergency use of other medicines to treat people with COVID-19. Go to https://www.fda.gov/emergency-pre paredness-andresponse/mcm-legal-r vhbefpmfo-agp-dlpntz-framework/em iejndfh-blo-shkvusakyzyzp for information on the emergency use of other medicines that are authorized by FDA to treat people with COVID-19. Your healthcare provider may talk with you about clinical trials for which you may be eligible. It is your choice to be treated or not to be treated with PAXLOVID. Should you decide not to receive it or for your child not to receive it, it will not change your standard medical care. What if I am or ? There is special procedure technologist treating women or mothers with PAXLOVID. For a mother and unborn baby, the benefit of taking PAXLOVID may be greater than the risk from the treatment. If you are , discuss your options and specific situation with your healthcare provider. It is recommended that you use effective barrier contraception or do not have sexual activity while taking PAXLOVID. If you are , discuss your options and specific situation with your healthcare provider. How do I report side effects with PAXLOVID? Contact your healthcare provider if you have any side effects that bother you or do not go away. Report side effects to [employer] at www.[employer].gov/[employer] or call 7-023-SQQ1522 or you can report side effects to [employer] at the contact information provided below. Website Fax number Telephone number [employer] How should I store PAXLOVID? Store PAXLOVID tablets at room temperature, between 68?F to 77?F (20?C to 25?C). How can I learn more about COVID-19? Ask your healthcare provider. Visit https://www.cdc.gov/COVID19. Contact your local or state public health department. What is an Emergency Use Authorization (EUA)? The [place] FDA has made PAXLOVID available under an emergency access mechanism called an Emergency Use Authorization (EUA). The EUA is supported by a [place] of Health and Human Service (HHS) declaration that circumstances exist to justify the emergency use of drugs and biological products during the COVID-19 pandemic. PAXLOVID for the treatment of mbjp-yg-mhhqlszg COVID-19 in adults and children [12 years of age and older weighing at least 88 pounds (40 kg)] with positive results of direct SARS-CoV-2 viral testing, and who are at high risk for progression to severe COVID-19, including hospitalization or , has not undergone the same type of review as an FDA-approved product. In issuing an EUA under the COVID-19 public health emergency, the FDA has determined, among other things, that based on the total amount of scientific evidence available including data from adequate and well-controlled clinical trials, if available, it is reasonable to believe that the product may be effective for diagnosing, treating, or preventing COVID-19, or a serious or life-threatening disease or condition caused by COVID-19; that the known and potential benefits of the product, when used to diagnose, treat, or prevent such disease or condition, outweigh the known and potential risks of such product; and that there are no adequate, approved, and available alternatives. All of these criteria must be met to allow for the product to be used in the treatment of patients during the COVID-19 pandemic. The EUA for PAXLOVID is in effect for the duration of the COVID-19 declaration justifying emergency use of this product, unless terminated or revoked (after which the products may no longer be used under the EUA). Additional Information For general questions, visit the website or call the telephone number provided below. Website Telephone number [employer] (1-806-J40-PPFI) You can also go to www.[employer].io or call for more information. Pfizer Distributed by [employer] [place] [address] [id number] Revised: 15 May 2021 documented in this encounter [facility] 02-01-2022 History of Present illness Narrative Chief Complaint No chief complaint on file. Patient was offered a virtual/telemedicine appointment in lieu of an office visit due to recommendations to reduce patient exposure to COVID-19. Video was used for evaluation of this patient. Patient is aware of limitations of performing the visit without a face to face visit in the office setting and agrees. Patient agrees to the visit: Yes Patient Location: [facility] Levy Todd is a 26 year old male who is contacted today for a virtual visit This is an established patient of Dr. Rich Quick MD. Mother is present in the room. Reports: Pt presents today for positive covid home test. Symptoms started last night. He is having cough and congestion. No fevers/chills. No loss of taste/smell. + fatigue. No body aches. Little headache. No ear pain. A little sore throat. Intermittent nausea. No vomiting. No diarrhea. His mom tested positive -- of last week -- went to urgent care and was treated w/ paxlovid. Taking tylenol and robitussin. 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 mom lost 6 before him. premature labor. delivered emergency because cord wrapped around his neck . born 8 lbs. went home with mom. PMH - PAST MEDICAL HISTORY OF HIGH FUNCTIONING AUTISM PMH - PAST MEDICAL HISTORY OF PRIMARY IMMUNE DEFICENCY Pseudoseizure 2014 Previous Surgical History PAST SURGICAL HISTORY Procedure Laterality Date LAPAROSCOPY SURG CHOLECYSTECTOMY 01/26/2021 MYRINGOTOMY ASPIR&/EUSTACHIAN TUBE NFLTJ ANES Myringotomy/tubes PAST SURGICAL HISTORY OF toe spur RPR UMBILICAL HERNIA < 5 YRS REDUCIBLE Hernia repair, umbilical - repair of diastasis recti Family History FAMILY HISTORY Problem Relation Age of Onset Allergies Mother Arthritis Mother Hypertension Mother Alcohol/Drug Mother Diabetes Mother Hypertension Father Stroke Father Allergies Maternal Grandmother Arthritis Maternal Grandmother Diabetes Maternal Grandmother Hypertension Maternal Grandmother Arthritis Maternal Grandfather Hypertension Maternal Grandfather Seizures Maternal Grandfather Stroke Maternal Grandfather Hypertension Paternal Grandmother Hypertension Paternal Grandfather Patient Allergies ALLERGIES Allergen Reactions Concerta [Methylphe* Other: See Comments hyper Depakote [Divalproe* Intolerance Phenobarbital Intolerance Ritalin [Methylphen* Intolerance hyper Current Medications Current Outpatient Medications on File Prior to Visit Medication Sig omeprazole (PRILOSEC) 40 mg capsule Take 1 capsule by mouth once daily. Mirtazapine (REMERON) 7.5 mg tablet Take 1 tablet by mouth daily at bedtime. traZODone (DESYREL) 50 mg tablet Take 1 tablet by mouth daily at bedtime. OLANZapine (ZYPREXA) 5 mg tablet Take 1 tablet by mouth daily at bedtime. cyclobenzaprine (FLEXERIL) 5 mg tablet Take 1 tablet by mouth three times daily as needed. (Patient not taking: Reported on 02/23/2021 ) ondansetron orally disintegrating (ZOFRAN ODT) 4 mg disintegrating tablet Take 1 tablet by mouth every 8 hours as needed for Nausea/Vomiting. ibuprofen (MOTRIN) 600 mg tablet Take 1 tablet by mouth every 6 hours as needed for Pain. docusate sodium (STOOL SOFTENER) 100 mg capsule Take 2 capsules by mouth twice daily. (Patient taking differently: Take 200 mg by mouth as needed. ) albuterol HFA (PROVENTIL HFA, VENTOLIN HFA) 90 mcg/actuation inhaler Inhale 2 Puffs as instructed every 4 hours as needed. fluticasone (FLOVENT HFA) 110 mcg/actuation inhaler Inhale 2 Puffs as instructed twice daily. (Patient taking differently: Inhale 2 Puffs as instructed as needed. ) Inhaler,Assist Devices,Access (OPTICHAMBER ADULT MASK-LARGE) ritu Dispense one mask (Patient not taking: Reported on 03/04/2021 ) INVEGA SUSTENNA 234 mg/1.5 mL syrg Inject 234 Units intramuscularly every 4 weeks. lamoTRIgine (LAMICTAL) 150 mg tablet Take 1 tablet by mouth twice daily. (Patient taking differently: Take 100 mg by mouth twice daily. ) No current facility-administered medications on file prior to visit. Social History Social History Tobacco Use Smoking status: Never Smokeless tobacco: Never Vaping Use Vaping Use: Never used Substance Use Topics Alcohol use: No Drug use: No EXAM: There were no vitals taken for this visit. Limited exam as visit was completed over the virtual platform. Virtual visit completed using video, limited exam completed. Patient sounds or appears ill: Yes, but non-toxic. General Appearance: Well appearing, alert, in no acute distress, well-hydrated, well nourished. Skin: Skin color normal Head: Normocephalic. No facial swelling or redness. EENT: Eyes nonreddened. No discharge. External ears nonreddened and no swelling. Neck: No mass or lesions. No swelling. FROM Patient is unable to speak in complete sentences: No Patient has labored breathing: No. Patient is audibly coughing: Yes Psych: Attitude - cooperative, easily engaged in conversation Affect - Euthymic, normal mood Mental status: Alert. Speech is clear and fluent with good repetition, comprehension Appearance - Normal hygiene and grooming appropriate Coordination: No abnormal or extraneous movements. Gait/Stance: Posture is normal. Health Maintenance List HEPATITIS B(1 of 3 - 3-dose series) Never done PNEUMOCOCCAL(1 - PCV) Never done SPIROMETRY Never done DEPRESSION ASSESSMENT Never done COVID-19 VACCINE(4 - Booster for Moderna series) due on 04/03/2021 INFLUENZA(1) due on 10/29/2021 ANNUAL PCP TEAM CHRONIC DISEASE VISIT due on 02/23/2022 DTAP,TDAP,TD(2 - Td or Tdap) due on 07/29/2026 HEPATITIS C SCREENING Completed HIV SCREENING Completed Data reviewed Last 5 Encounter BP Readings: Date: BP: 05/25/2021 122/72 04/14/2021 128/74 03/04/2021 110/70 03/01/2021 122/70 02/23/2021 114/64 BMI Readings from Last 5 Encounters: 05/25/21 : 40.37 kg/m 04/14/21 : 41.74 kg/m 03/04/21 : 41.64 kg/m 03/01/21 : 44.18 kg/m 02/23/21 : 43.82 kg/m Last 5 Encounter Wt Readings: Date: Wt: 05/25/2021 138.8 kg (306 lb) 04/14/2021 143.5 kg (316 lb 6.4 oz) 03/04/2021 143.2 kg (315 lb 9.6 oz) 03/01/2021 143.7 kg (316 lb 12.8 oz) 02/23/2021 142.5 kg (314 lb 3.2 oz) Medication and allergy list reviewed, reconciled and updated 02/01/2022 Discussed treatment plan and patient voices understanding. Patient's questions answered appropriately. Medications and potential side effects were discussed and patient voices understanding. Return to the office as scheduled or as needed for worsening/no improvement. Nirmatrelvir/Ritonavir (Paxlovid) Eligibility and Patient Discussion [facility] Formulary Restriction Criteria: Adult outpatients 18 years and older with ALL of the following: [x] Patient has positive SARS-COV-2 viral test (PCR or antigen test) during current illness [x] Patient has symptoms for 5 days or less [x] Not requiring hospitalization at any time for management of COVID-19 [x] Not requiring supplemental oxygen or a change in baseline supplemental oxygen [x] Not utilized for pre-exposure or post-exposure prophylaxis for prevention of COVID-19 [x] Patient does not have severe renal impairment (eGFR < 30 mL/min) or severe hepatic impairment (Child-Klein Class C) [x] Meeting at least one of the criteria for high risk of progression to severe COVID-19: [] Age over 65 years [] Cancer [] Chronic kidney disease [] Chronic liver disease [x] Chronic lung diseases, including cystic fibrosis [] Dementia or other neurological conditions [] Diabetes (type 1 or type 2) [x] Disabilities, including Down syndrome and neurodevelopmental disorders [] Heart conditions [] HIV infection [] Immunocompromised state [x] Mental health conditions [] Medical related technological dependence (tracheostomy, gastrostomy, or positive pressure ventilation (not related to COVID) [x] Overweight and obesity (BMI greater or equal to 25 for adults) [] Physical inactivity [] [] Sickle cell disease or thalassemia [] Smoking, current or former [] Solid organ or blood stem cell transplant [] Stroke or cerebrovascular disease [] Substance use disorders [] Tuberculosis [] People from racial and ethnic minority groups Criteria above are met: Yes Date of Positive Test:02/01/22 Date of Symptom Onset: 01/31/22 Patient received COVID vaccine: Yes Drug-Drug interactions reviewed: Yes. Drug interactions were identified and the following actions were taken . Pt is going to hold the trazodone while on the paxlovid. I have discussed the use of the investigational therapeutic, nirmatrelvir/ritonavir, for the treatment of mild to moderate COVID-19 and its use under Emergency Use Authorization with the patient. The patient was informed that nirmatrelvir/ritonavir is not an FDA approved drug and that it is authorized for use under this Emergency Use Authorization. The patient was also informed of the significant known benefits and potential risks of nirmatrelvir/ritonavir, and the extent to which such potential risks and benefits are unknown. The patient was informed that there is mandatory reporting of all medication errors and serious adverse events potentially related to nirmatrelvir/ritonavir treatment within 7 calendar days from the onset of the event and that events up to 28 days after completion of therapy need to be reported. The discussion included alternatives to receiving nirmatrelvir/ritonavir, including clinical trials, and potential the risks and benefits of those alternatives. The patient was provided electronically with the Fact Sheet for Patients, Parents and Caregivers . The patient was also instructed that in addition to the treatment with nirmatrelvir/ritonavir, he/she should continue to self-isolate and use infection control measures (e.g., wear mask, isolate, social distance, avoid sharing personal items, clean and disinfect high touch surfaces, and frequent handwashing) according to CDC guidelines. The patient stated understanding and gave verbal consent to proceeding with nirmatrelvir/ritonavir treatment. Francy Mittal APRN.CNP February 01, 2022 4:34 PM documented in this encounter [facility] 01-08-2022 Miscellaneous Notes Last Office Visit: 02/23/2021 Future Office Visit: None Requested Prescriptions Pending Prescriptions Disp Refills omeprazole (PRILOSEC) 40 mg capsule 28 capsule 5 Sig: Take 1 capsule by mouth once daily. Date of Last Labs: 12/23/2020 documented in this encounter [facility] 05-25-2021 History of Present illness Narrative Patient presents with: Sinus Problem: sinus pressure, drainage, cough x 3 days HPI: Feeling sick for 4 days. Positive symptoms: Cough, Sinus pressure, Nasal Congestion, Rhinorrhea, Post nasal drainage, Fatigue, Sore throat during cough, baseline Diarrhea, Negative symptoms: Fever, Nausea, Vomiting, wheezing OTC: Mucinex, Cold Medicine Had 3rd Moderna COVID-19 vaccine in January. 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 mom lost 6 before him. premature labor. delivered emergency because cord wrapped around his neck . born 8 lbs. went home with mom. PMH - PAST MEDICAL HISTORY OF HIGH FUNCTIONING AUTISM PMH - PAST MEDICAL HISTORY OF PRIMARY IMMUNE DEFICENCY Pseudoseizure 2014 MEDICATIONS: Current Outpatient Medications Medication Sig omeprazole (PRILOSEC) 40 mg capsule Take 1 capsule by mouth once daily. Mirtazapine (REMERON) 7.5 mg tablet Take 1 tablet by mouth daily at bedtime. traZODone (DESYREL) 50 mg tablet Take 1 tablet by mouth daily at bedtime. OLANZapine (ZYPREXA) 5 mg tablet Take 1 tablet by mouth daily at bedtime. ondansetron orally disintegrating (ZOFRAN ODT) 4 mg disintegrating tablet Take 1 tablet by mouth every 8 hours as needed for Nausea/Vomiting. ibuprofen (MOTRIN) 600 mg tablet Take 1 tablet by mouth every 6 hours as needed for Pain. docusate sodium (STOOL SOFTENER) 100 mg capsule Take 2 capsules by mouth twice daily. (Patient taking differently: Take 200 mg by mouth as needed. ) albuterol HFA (PROVENTIL HFA, VENTOLIN HFA) 90 mcg/actuation inhaler Inhale 2 Puffs as instructed every 4 hours as needed. fluticasone (FLOVENT HFA) 110 mcg/actuation inhaler Inhale 2 Puffs as instructed twice daily. (Patient taking differently: Inhale 2 Puffs as instructed as needed. ) INVEGA SUSTENNA 234 mg/1.5 mL syrg Inject 234 Units intramuscularly every 4 weeks. cyclobenzaprine (FLEXERIL) 5 mg tablet Take 1 tablet by mouth three times daily as needed. (Patient not taking: Reported on 02/23/2021 ) Inhaler,Assist Devices,Access (OPTICHAMBER ADULT MASK-LARGE) ritu Dispense one mask (Patient not taking: Reported on 03/04/2021 ) lamoTRIgine (LAMICTAL) 150 mg tablet Take 1 tablet by mouth twice daily. (Patient taking differently: Take 100 mg by mouth twice daily. ) No current facility-administered medications for this visit. ALLERGIES: ALLERGIES Allergen Reactions Concerta [Methylphe* Other: See Comments hyper Depakote [Divalproe* Intolerance Phenobarbital Intolerance Ritalin [Methylphen* Intolerance hyper VITALS: BP 122/72 Pulse 104 Temp 36.4 C (97.6 F) Resp 20 Wt (!) 138.8 kg (306 lb) SpO2 96% BMI 40.37 kg/m PHYSICAL EXAM: GEN: mildly ill appearing. Accompanied by his mother. HEENT: PERRL, EOMI, conjunctiva clear Ears: canals occluded by cerumen. TMs without erythema, bulge, or effusion after irrigation Sinuses: non-tender frontal sinus, non-tender maxillary sinuses Throat: moist mucous membranes, mild erythema, no exudate Neck: supple, no thyromegaly, no lymphadenopathy HEART: regular rate and rhythm, no murmurs LUNGS: clear to auscultation, no wheezes or crackles, no increased WOB ASSESSMENT/PLAN: 1. URI, acute - ICD9: 465.9, ICD10: J06.9 (primary diagnosis) - suspect viral URI - Discussed supportive care treatment with rest, cold medicine, and analgesia. 2. Bilateral impacted cerumen - ICD9: 380.4, ICD10: H61.23 Successful cerumen removal by water lavage. 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 BANK CONSULTANT: Anthony Fletcher APRN.BANK CONSULTANT Other anesthesia staff/rotator: Anthony Fletcher APRN.BANK CONSULTANT Performed by: QUIQUE Indications and Patient Condition Preoxygenated: yes Patient position: sniffing Manual In-Line Stabilization: No Difficult Mask: No Indications for airway management: anesthesia anesthesia circuit Method: asleep Cricoid Pressure: No Final Airway Details Final airway type: endotracheal airway Final Endotracheal Airway: ETT Cuffed: yes Successful intubation technique: direct laryngoscopy Endotracheal tube insertion site: oral Blade: Giulia Blade size: #4 ETT size (mm): 7.5 Measured from: lips Measurement (cm): 23 Placement verified by: chest auscultation and capnometry Cormack-Lehane Classification: grade IIa - partial view of glottis Number of attempts at approach: 1 Failed airway: no Unrecognized esophageal intubation: no Airway not difficult SIGNATURE: Anthony Fletcher APRN.CRNA PATIENT NAME: Levy Todd DATE: January 26, 2021 TIME: 2:57 PM CSN: [id number] [facility] documented as of this encounter (statuses as of 05/25/2021) [facility] History of Past illness Narrative* Problem Noted Date Resolved Date 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 10/02/2015 Abdominal pain, epigastric 10/13/200610/01 Abdominal pain, generalized 10/13/200605/2015 Abnormality of gait 06/22/2005 10/02/2015 Exostosis of unspecified site 05/31/2005 Onychia and paronychia of toe 04/15/2005 Ingrowing nail 01/08/2005 10/02/2015 Pain in limb 01/08/2005 10/02/2015 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 documented as of this encounter (statuses as of 01/08/2022) [facility] History of Past illness Narrative* Problem Noted Date Resolved Date 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 10/02/2015 Abdominal pain, epigastric 10/13/200610/01 Abdominal pain, generalized 10/13/200605/2015 Abnormality of gait 06/22/2005 10/02/2015 Exostosis of unspecified site 05/31/2005 Onychia and paronychia of toe 04/15/2005 Ingrowing nail 01/08/2005 10/02/2015 Pain in limb 01/08/2005 10/02/2015 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 documented as of this encounter (statuses as of 02/02/2022) [facility] History of Past illness Narrative* Problem Noted Date Resolved Date 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 10/02/2015 Abdominal pain, epigastric 10/13/200610/01 Abdominal pain, generalized 10/13/200605/2015 Abnormality of gait 06/22/2005 10/02/2015 Exostosis of unspecified site 05/31/2005 Onychia and paronychia of toe 04/15/2005 Ingrowing nail 01/08/2005 10/02/2015 Pain in limb 01/08/2005 10/02/2015 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 documented as of this encounter (statuses as of 03/24/2022) [facility] History of Past illness Narrative* Problem Noted Date Resolved Date 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 10/02/2015 Abdominal pain, epigastric 10/13/200610/01 Abdominal pain, generalized 10/13/200605/2015 Abnormality of gait 06/22/2005 10/02/2015 Exostosis of unspecified site 05/31/2005 Onychia and paronychia of toe 04/15/2005 Ingrowing nail 01/08/2005 10/02/2015 Pain in limb 01/08/2005 10/02/2015 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 documented as of this encounter (statuses as of 03/26/2022) [facility] History of Past illness Narrative* Problem Noted Date Resolved Date 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 10/02/2015 Abdominal pain, epigastric 10/13/200610/01 Abdominal pain, generalized 10/13/200605/2015 Abnormality of gait 06/22/2005 10/02/2015 Exostosis of unspecified site 05/31/2005 Onychia and paronychia of toe 04/15/2005 Ingrowing nail 01/08/2005 10/02/2015 Pain in limb 01/08/2005 10/02/2015 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 documented as of this encounter (statuses as of 06/30/2022) [facility] History of Past illness Narrative* Problem Noted Date Resolved Date 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 10/02/2015 Abdominal pain, epigastric 10/13/200610/01 Abdominal pain, generalized 10/13/2006/0 05/2015 Abnormality of gait 06/22/2005 10/02/2015 Exostosis of unspecified site 05/31/2005 Onychia and paronychia of toe 04/15/2005 Ingrowing nail 01/08/2005 10/02/2015 Pain in limb 01/08/2005 10/02/2015 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 documented as of this encounter (statuses as of 07/01/2022) [facility] History of Past illness Narrative* Problem Noted Date Resolved Date 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 10/02/2015 Abdominal pain, epigastric 10/13/200610/01 Abdominal pain, generalized 10/13/200605/2015 Abnormality of gait 06/22/2005 10/02/2015 Exostosis of unspecified site 05/31/2005 Onychia and paronychia of toe 04/15/2005 Ingrowing nail 01/08/2005 10/02/2015 Pain in limb 01/08/2005 10/02/2015 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 documented as of this encounter (statuses as of 07/02/2022) [facility] History of Past illness Narrative* Problem Noted Date Resolved Date 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 10/02/2015 Abdominal pain, epigastric 10/13/200610/01 Abdominal pain, generalized 10/13/20060 05/2015 Abnormality of gait 06/22/2005 10/02/2015 Exostosis of unspecified site 05/31/2005 Onychia and paronychia of toe 04/15/2005 Ingrowing nail 01/08/2005 10/02/2015 Pain in limb 01/08/2005 10/02/2015 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 documented as of this encounter (statuses as of 07/03/2022) [facility] History of Past illness Narrative* Problem Noted Date Resolved Date 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 10/02/2015 Abdominal pain, epigastric 10/13/200610/01 Abdominal pain, generalized 10/13/200605/2015 Abnormality of gait 06/22/2005 10/02/2015 Exostosis of unspecified site 05/31/2005 Onychia and paronychia of toe 04/15/2005 Ingrowing nail 01/08/2005 10/02/2015 Pain in limb 01/08/2005 10/02/2015 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 documented as of this encounter (statuses as of 07/27/2022) [facility] History of Past illness Narrative* Problem Noted Date Resolved Date 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 10/02/2015 Abdominal pain, epigastric 10/13/200610/01 Abdominal pain, generalized 10/13/200605/2015 Abnormality of gait 06/22/2005 10/02/2015 Exostosis of unspecified site 05/31/2005 Onychia and paronychia of toe 04/15/2005 Ingrowing nail 01/08/2005 10/02/2015 Pain in limb 01/08/2005 10/02/2015 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 documented as of this encounter (statuses as of 08/18/2022) [facility] History of Past illness Narrative* Problem Noted Date Resolved Date 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 10/02/2015 Abdominal pain, epigastric 10/13/200610/01 Abdominal pain, generalized 10/13/200605/2015 Abnormality of gait 06/22/2005 10/02/2015 Exostosis of unspecified site 05/31/2005 Onychia and paronychia of toe 04/15/2005 Ingrowing nail 01/08/2005 10/02/2015 Pain in limb 01/08/2005 10/02/2015 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 documented as of this encounter (statuses as of 08/19/2022) [facility] History of Past illness Narrative* Problem Noted Date Resolved Date 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 10/02/2015 Abdominal pain, epigastric 10/13/200610/01 Abdominal pain, generalized 10/13/200605/2015 Abnormality of gait 06/22/2005 10/02/2015 Exostosis of unspecified site 05/31/2005 Onychia and paronychia of toe 04/15/2005 Ingrowing nail 01/08/2005 10/02/2015 Pain in limb 01/08/2005 10/02/2015 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 documented as of this encounter (statuses as of 09/03/2022) [facility] History of Past illness Narrative* Problem Noted Date Diagnosed Date Resolved Date 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 10/02/2015 Abdominal pain, epigastric 10/13/2006 0 10/02/2015 Abdominal pain, generalized 10/13/2006 10/02/2015 Abnormality of gait 06/22/2005 10/02/19 16 Exostosis of unspecified site 05/31/2005 10/02/2015 Onychia and paronychia of toe 04/15/2005 10/02/2015 Ingrowing nail 01/08/2005 10/02/2015 Pain in limb 01/08/2005 10/02/2015 Convulsions in 10/01 Overview: GRAND MAL SEIZURES documented as of this encounter (statuses as of 09/04/2022) [facility] History of Past illness Narrative* Problem Noted Date Diagnosed Date Resolved Date 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 10/02/2015 Abdominal pain, epigastric 10/13/2006 0 10/02/2015 Abdominal pain, generalized 10/13/2006 10/02/2015 Abnormality of gait 06/22/2005 10/02/19 16 Exostosis of unspecified site 05/31/2005 10/02/2015 Onychia and paronychia of toe 04/15/2005 10/02/2015 Ingrowing nail 01/08/2005 10/02/2015 Pain in limb 01/08/2005 10/02/2015 Convulsions in 10/01 Overview: GRAND MAL SEIZURES documented as of this encounter (statuses as of 09/14/2022) [facility] History of Past illness Narrative* Problem Noted Date Diagnosed Date Resolved Date 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 10/02/2015 Abdominal pain, epigastric 10/13/2006 0 10/02/2015 Abdominal pain, generalized 10/13/2006 10/02/2015 Abnormality of gait 06/22/2005 10/02/19 16 Exostosis of unspecified site 05/31/2005 10/02/2015 Onychia and paronychia of toe 04/15/2005 10/02/2015 Ingrowing nail 01/08/2005 10/02/2015 Pain in limb 01/08/2005 10/02/2015 Convulsions in 10/01 Overview: GRAND MAL SEIZURES documented as of this encounter (statuses as of 10/14/2022) [facility] History of Past illness Narrative* Problem Noted Date Diagnosed Date Resolved Date 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 10/02/2015 Abdominal pain, epigastric 10/13/2006 0 10/02/2015 Abdominal pain, generalized 10/13/2006 10/02/2015 Abnormality of gait 06/22/2005 10/02/19 16 Exostosis of unspecified site 05/31/2005 10/02/2015 Onychia and paronychia of toe 04/15/2005 10/02/2015 Ingrowing nail 01/08/2005 10/02/2015 Pain in limb 01/08/2005 10/02/2015 Convulsions in 10/01 Overview: GRAND MAL SEIZURES documented as of this encounter (statuses as of 10/21/2022) [facility] History of Past illness Narrative* Problem Noted Date Diagnosed Date Resolved Date 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 10/02/2015 Abdominal pain, epigastric 10/13/2006 0 10/02/2015 Abdominal pain, generalized 10/13/2006 10/02/2015 Abnormality of gait 06/22/2005 10/02/19 16 Exostosis of unspecified site 05/31/2005 10/02/2015 Onychia and paronychia of toe 04/15/2005 10/02/2015 Ingrowing nail 01/08/2005 10/02/2015 Pain in limb 01/08/2005 10/02/2015 Convulsions in 10/01 Overview: GRAND MAL SEIZURES documented as of this encounter (statuses as of 11/04/2022) [facility] History of Past illness Narrative* Problem Noted Date Diagnosed Date Resolved Date 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 10/02/2015 Abdominal pain, epigastric 10/13/2006 0 10/02/2015 Abdominal pain, generalized 10/13/2006 10/02/2015 Abnormality of gait 06/22/2005 10/02/19 16 Exostosis of unspecified site 05/31/2005 10/02/2015 Onychia and paronychia of toe 04/15/2005 10/02/2015 Ingrowing nail 01/08/2005 10/02/2015 Pain in limb 01/08/2005 10/02/2015 Convulsions in 10/01 Overview: GRAND MAL SEIZURES documented as of this encounter (statuses as of 12/04/2022) [facility] History of Past illness Narrative* Problem Noted Date Diagnosed Date Resolved Date 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 10/02/2015 Abdominal pain, epigastric 10/13/2006 0 10/02/2015 Abdominal pain, generalized 10/13/2006 10/02/2015 Abnormality of gait 06/22/2005 10/02/19 16 Exostosis of unspecified site 05/31/2005 10/02/2015 Onychia and paronychia of toe 04/15/2005 10/02/2015 Ingrowing nail 01/08/2005 10/02/2015 Pain in limb 01/08/2005 10/02/2015 Convulsions in 10/01 Overview: GRAND MAL SEIZURES documented as of this encounter (statuses as of 12/07/2022) [facility] History of Past illness Narrative* Problem Noted Date Diagnosed Date Resolved Date 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 10/02/2015 Abdominal pain, epigastric 10/13/2006 0 10/02/2015 Abdominal pain, generalized 10/13/2006 10/02/2015 Abnormality of gait 06/22/2005 10/02/19 16 Exostosis of unspecified site 05/31/2005 10/02/2015 Onychia and paronychia of toe 04/15/2005 10/02/2015 Ingrowing nail 01/08/2005 10/02/2015 Pain in limb 01/08/2005 10/02/2015 Convulsions in 10/01 Overview: GRAND MAL SEIZURES documented as of this encounter (statuses as of 12/09/2022) [facility] History of Past illness Narrative* Problem Noted Date Diagnosed Date Resolved Date 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 10/02/2015 Abdominal pain, epigastric 10/13/2006 0 10/02/2015 Abdominal pain, generalized 10/13/2006 10/02/2015 Abnormality of gait 06/22/2005 10/02/19 16 Exostosis of unspecified site 05/31/2005 10/02/2015 Onychia and paronychia of toe 04/15/2005 10/02/2015 Ingrowing nail 01/08/2005 10/02/2015 Pain in limb 01/08/2005 10/02/2015 Convulsions in 10/01 Overview: GRAND MAL SEIZURES documented as of this encounter (statuses as of 12/09/2022) [facility] History of Past illness Narrative* Problem Noted Date Diagnosed Date Resolved Date 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 10/02/2015 Abdominal pain, epigastric 10/13/2006 0 10/02/2015 Abdominal pain, generalized 10/13/2006 10/02/2015 Abnormality of gait 06/22/2005 10/02/19 16 Exostosis of unspecified site 05/31/2005 10/02/2015 Onychia and paronychia of toe 04/15/2005 10/02/2015 Ingrowing nail 01/08/2005 10/02/2015 Pain in limb 01/08/2005 10/02/2015 Convulsions in 10/01 Overview: GRAND MAL SEIZURES documented as of this encounter (statuses as of 12/15/2022) [facility] History of Past illness Narrative* Problem Noted Date Diagnosed Date Resolved Date 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 10/02/2015 Abdominal pain, epigastric 10/13/2006 0 10/02/2015 Abdominal pain, generalized 10/13/2006 10/02/2015 Abnormality of gait 06/22/2005 10/02/19 16 Exostosis of unspecified site 05/31/2005 10/02/2015 Onychia and paronychia of toe 04/15/2005 10/02/2015 Ingrowing nail 01/08/2005 10/02/2015 Pain in limb 01/08/2005 10/02/2015 Convulsions in 10/01 Overview: GRAND MAL SEIZURES documented as of this encounter (statuses as of 12/17/2022) [facility] History of Past illness Narrative* Problem Noted Date Diagnosed Date Resolved Date 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 10/02/2015 Abdominal pain, epigastric 10/13/2006 0 10/02/2015 Abdominal pain, generalized 10/13/2006 10/02/2015 Abnormality of gait 06/22/2005 10/02/19 16 Exostosis of unspecified site 05/31/2005 10/02/2015 Onychia and paronychia of toe 04/15/2005 10/02/2015 Ingrowing nail 01/08/2005 10/02/2015 Pain in limb 01/08/2005 10/02/2015 Convulsions in 10/01 Overview: GRAND MAL SEIZURES documented as of this encounter (statuses as of 12/28/2022) [facility] History of Past illness Narrative* Problem Noted Date Diagnosed Date Resolved Date 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 10/02/2015 Abdominal pain, epigastric 10/13/2006 0 10/02/2015 Abdominal pain, generalized 10/13/2006 10/02/2015 Abnormality of gait 06/22/2005 10/02/19 16 Exostosis of unspecified site 05/31/2005 10/02/2015 Onychia and paronychia of toe 04/15/2005 10/02/2015 Ingrowing nail 01/08/2005 10/02/2015 Pain in limb 01/08/2005 10/02/2015 Convulsions in 10/01 Overview: GRAND MAL SEIZURES documented as of this encounter (statuses as of 01/02/2023) [facility] History of Past illness Narrative* Problem Noted Date Diagnosed Date Resolved Date 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 10/02/2015 Abdominal pain, epigastric 10/13/2006 0 10/02/2015 Abdominal pain, generalized 10/13/2006 10/02/2015 Abnormality of gait 06/22/2005 10/02/19 16 Exostosis of unspecified site 05/31/2005 10/02/2015 Onychia and paronychia of toe 04/15/2005 10/02/2015 Ingrowing nail 01/08/2005 10/02/2015 Pain in limb 01/08/2005 10/02/2015 Convulsions in 10/01 Overview: GRAND MAL SEIZURES documented as of this encounter (statuses as of 01/02/2023) [facility] History of Past illness Narrative* Problem Noted Date Diagnosed Date Resolved Date 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 10/02/2015 Abdominal pain, epigastric 10/13/2006 0 10/02/2015 Abdominal pain, generalized 10/13/2006 10/02/2015 Abnormality of gait 06/22/2005 10/02/19 16 Exostosis of unspecified site 05/31/2005 10/02/2015 Onychia and paronychia of toe 04/15/2005 10/02/2015 Ingrowing nail 01/08/2005 10/02/2015 Pain in limb 01/08/2005 10/02/2015 Convulsions in 10/01 Overview: GRAND MAL SEIZURES documented as of this encounter (statuses as of 01/04/2023) [facility] note* Diagnosis URI, acute- Primary Acute upper respiratory infections of unspecified site Bilateral impacted cerumen Impacted cerumen documented in this encounter [facility] note* Diagnosis COVID-19- Primary documented in this encounter [facility] note* Diagnosis Dysuria- Primary Urinary frequency Microscopic hematuria History of kidney stones Personal history of urinary calculi [facility] Diagnosis Epigastric pain- Primary Abdominal pain, epigastric Left upper quadrant abdominal pain Medication monitoring encounter Encounter for therapeutic drug monitoring documented in this encounter [facility] note* Diagnosis Generalized abdominal pain- Primary Abdominal pain, generalized [facility]* Diagnosis Abdominal pain, unspecified abdominal location- Primary [facility]* Diagnosis Epigastric pain Abdominal pain, epigastric Left upper quadrant abdominal pain [facility]* Diagnosis Sore throat- Primary Acute pharyngitis [facility]* Diagnosis Acute otitis media, left- Primary Unspecified otitis media [facility]* Diagnosis Bronchitis- Primary Bronchitis, not specified as acute or chronic Mild intermittent asthma without complication Unspecified asthma [facility]* Diagnosis Bronchitis- Primary Bronchitis, not specified as acute or chronic [facility]* Diagnosis Pain of toe of right foot- Primary Pain in limb [facility] Diagnosis Right ear pain- Primary Otalgia, unspecified Impacted cerumen of right ear Impacted cerumen [facility] Diagnosis Pain of toe of right foot Pain in limb [facility]* Diagnosis Acute non-recurrent sinusitis, unspecified location- Primary Bilateral impacted cerumen Impacted cerumen [facility] Diagnosis Pain of toe of right foot- Primary Pain in limb Repetitive stress injury Unspecified site of sprain and strain documented in this encounter [facility] note* Diagnosis Epigastric pain Abdominal pain, epigastric Left upper quadrant abdominal pain documented in this encounter [facility] note* Diagnosis Pain of toe of right foot Pain in limb documented in this encounter [facility] note* Diagnosis Pain of toe of right foot Pain in limb Repetitive stress injury Unspecified site of sprain and strain documented in this encounter [facility] note* Diagnosis Pain of toe of right foot- Primary Pain in limb Right foot pain Pain in limb documented in this encounter [facility] for referral (narrative)* Diagnostic Procedure Only (Routine) - Closed Specialty Diagnoses / Procedures Referred By Contac t Referred To Contact XR IMAGING Diagnoses Epigastric pain Left upper quadrant abdominal pain Procedures XR ABDOMEN 1V SUPINE RADIOLOGIC EXAM ABDOMEN 1 VIEW Rich Quick MD [address] [place] [address] Xr Imaging Referral ID Status Reason Start Date Expiration Date V isits Requested Visits Authorized [id number] Closed Auto-Generate d Referral 06/29/2022 07/29/2023 1 1 [facility] for referral (narrative)* Diagnostic Procedure Only (Urgent) - Closed Specialty Diagnoses / Procedures Referred By Contac t Referred To Contact XR IMAGING Diagnoses Abdominal pain, unspecified abdominal location Procedures XR ABDOMEN 1V SUPINE RADIOLOGIC EXAM ABDOMEN 1 VIEW Rich Quick MD [address] [place] [address] Xr Imaging Referral ID Status Reason Start Date Expiration Date V isits Requested Visits Authorized [id number] Closed Auto-Generate d Referral 07/01/2022 07/31/2023 1 1 [facility] for referral (narrative)* Diagnostic Procedure Only (Routine) - Closed Specialty Diagnoses / Procedures Referred By Contac t Referred To Contact XR IMAGING Diagnoses Pain of toe of right foot Procedures XR FOOT GENERAL 3V AP/LAT/OBL RIGHT RADEX FOOT COMPLETE MINIMUM 3 VIEWS Fern Yañez [address] [place] [address] [place] [address] Referral ID Status Reason Start Date Expiration Date V isits Requested Visits Authorized [id number] Closed Auto-Generate d Referral 11/03/2022 12/03/2023 1 1 * Diagnostic Procedure Only (Routine) - Closed Specialty Diagnoses / Procedures Referred By Contac t Referred To Contact XR IMAGING Diagnoses Pain of toe of right foot Procedures XR TOE AP/LAT/OBL RIGHT RADEX TOE MINIMUM 2 VIEWS Fern Yañez [address] [place] [address] [place] [address] Referral ID Status Reason Start Date Expiration Date V isits Requested Visits Authorized [id number] Closed Auto-Generate d Referral 11/03/2022 12/03/2023 1 1 [facility] for referral (narrative)* Diagnostic Procedure Only (Routine) - Closed Specialty Diagnoses / Procedures Referred By Contac t Referred To Contact XR IMAGING Diagnoses Pain of toe of right foot Procedures XR ANKLE GENERAL 3V AP/LAT/OBL RIGHT RADEX ANKLE COMPLETE MINIMUM 3 VIEWS Fern [address] [place] [address] [place] [address] Referral ID Status Reason Start Date Expiration Date V isits Requested Visits Authorized [id number] Closed Auto-Generate d Referral 12/17/2022 01/16/2024 1 1 * Diagnostic Procedure Only (Routine) - Closed Specialty Diagnoses / Procedures Referred By Contac t Referred To Contact XR IMAGING Diagnoses Pain of toe of right foot Repetitive stress injury Procedures XR FOOT GENERAL 3V AP/LAT/OBL RIGHT RADEX FOOT COMPLETE MINIMUM 3 VIEWS Fern Yañez [address] [place] [address] [place] [address] Referral ID Status Reason Start Date Expiration Date V isits Requested Visits Authorized [id number] Closed Auto-Generate d Referral 12/17/2022 01/16/2024 1 1 [facility] for referral (narrative)* Diagnostic Procedure Only (Routine) - Closed Specialty Diagnoses / Procedures Referred By Contac t Referred To Contact XR IMAGING Diagnoses Pain of toe of right foot Procedures XR FOOT GENERAL 3V AP/LAT/OBL RIGHT RADEX FOOT COMPLETE MINIMUM 3 VIEWS Fern [address] [place] [address] [place] [address] Referral ID Status Reason Start Date Expiration Date V isits Requested Visits Authorized [id number] Closed Auto-Generate d Referral 11/03/2022 12/03/2023 1 1 * Diagnostic Procedure Only (Routine) - Closed Specialty Diagnoses / Procedures Referred By Contac t Referred To Contact XR IMAGING Diagnoses Pain of toe of right foot Procedures XR TOE AP/LAT/OBL RIGHT RADEX TOE MINIMUM 2 VIEWS Fern [address] [place] [address] [place] [address] Referral ID Status Reason Start Date Expiration Date V isits Requested Visits Authorized [id number] Closed Auto-Generate d Referral 11/03/2022 12/03/2023 1 1 [facility] for referral (narrative)* Diagnostic Procedure Only (Routine) - Closed Specialty Diagnoses / Procedures Referred By Contac t Referred To Contact XR IMAGING Diagnoses Pain of toe of right foot Procedures XR ANKLE GENERAL 3V AP/LAT/OBL RIGHT RADEX ANKLE COMPLETE MINIMUM 3 VIEWS Fern [address] [place] [address] [place] [address] Referral ID Status Reason Start Date Expiration Date V isits Requested Visits Authorized [id number] Closed Auto-Generate d Referral 12/17/2022 01/16/2024 1 1 * Diagnostic Procedure Only (Routine) - Closed Specialty Diagnoses / Procedures Referred By Contac t Referred To Contact XR IMAGING Diagnoses Pain of toe of right foot Repetitive stress injury Procedures XR FOOT GENERAL 3V AP/LAT/OBL RIGHT RADEX FOOT COMPLETE MINIMUM 3 VIEWS Fern Yañez [address] [place] [address] [place] [address] Referral ID Status Reason Start Date Expiration Date V isits Requested Visits Authorized [id number] Closed Auto-Generate d Referral 12/17/2022 01/16/2024 1 1 [facility] for visit Narrative* Diagnostic Procedure Only (Routine) - Closed Specialty Diagnoses / Procedures Referred By Contac t Referred To Contact XR IMAGING Diagnoses Pain of toe of right foot Procedures XR FOOT GENERAL 3V AP/LAT/OBL RIGHT RADEX FOOT COMPLETE MINIMUM 3 VIEWS Fern Yañez [address] [place] [address] [place] [address] Referral ID Status Reason Start Date Expiration Date V isits Requested Visits Authorized [id number] Closed Auto-Generate d Referral 11/03/2022 12/03/2023 1 1 [facility] for visit Narrative* Diagnostic Procedure Only (Routine) - Closed Specialty Diagnoses / Procedures Referred By Contac t Referred To Contact XR IMAGING Diagnoses Pain of toe of right foot Procedures XR ANKLE GENERAL 3V AP/LAT/OBL RIGHT RADEX ANKLE COMPLETE MINIMUM 3 VIEWS Fern Yañez [address] [place] [address] [place] [address] Referral ID Status Reason Start Date Expiration Date V isits Requested Visits Authorized [id number] Closed Auto-Generate d Referral 12/17/2022 01/16/2024 1 1 [facility] Summary Purpose Family History No Family History Records FoundNo Family History Records FoundNo Family History Records FoundNo Family History Records FoundNo Family History Records FoundNo Family History Records FoundNo Family History Records FoundNo Family History Records Found Advance Directives Documents on File Type Date Recorded Patient 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 Expl anation Advance Directive(s) 01/26/2021 12:27 PM Advance Directive(s) 01/13/2021 8:30 AM Reason for Referral Specialty Diagnoses / Procedures Referred By Ellyn connors Referred To Contact Urology Diagnoses Urinary frequency History of kidney stones Microscopic hematuria Procedures CONSULT TO UROLOGY OFFICE/OUTPATIENT [facility] 60-74 MINUTES Jatin Brown MD [address] [place] [address] Referral ID Status Reason Start Date Expiration Date Visits Requested Visits Authorized [id number] Authorized PCP Requested Referral 03/24/2022 03/24/2023 1 1 Specialty Diagnoses / Procedures Referred By Ellyn connors Referred To Contact Podiatry Diagnoses Pain of toe of right foot Procedures CONSULT TO PODIATRY OFFICE/OUTPATIENT [facility] 60-74 MINUTES Rich Quick MD [address] [place] [address] Referral ID Status Reason Start Date Expiration Date Visits Requested Visits Authorized [id number] Authorized PCP Requested Referral 10/13/2022 10/13/2023 1 1 Additional Source Comments (unrecognized sect ion and content) No Status Records FoundNo Status Records FoundNo Status Records FoundNo Status Records FoundNo Status Records FoundNo Status Records FoundNo Status Records FoundNo Status Records Found INFORMATION SOURCE (unrecogn ized section and content) DATE CREATED AUTHOR AUTHOR'S ORGANIZ ATION 06/21/2018 [facility] DATE CREATED AUTHOR AUTHOR'S ORGANIZ ATION 02/22/2019 [facility] DATE CREATED AUTHOR AUTHOR'S ORGANIZ ATION 07/12/2019 [facility] DATE CREATED AUTHOR AUTHOR'S ORGANIZ ATION 01/29/2021 [facility] DATE CREATED AUTHOR AUTHOR'S ORGANIZ ATION 05/18/2022 [facility] DATE CREATED AUTHOR AUTHOR'S ORGANIZ ATION 06/12/2022 [facility] DATE CREATED AUTHOR AUTHOR'S ORGANIZ ATION 01/04/2023 [facility] Source Comments (unrecognize d section and content) In the event this informatio n is protected by the Federal Confidentiality of Alcohol and Drug Abuse Patient Records regulations: The Federal rules restrict any use of the information to criminally investigate or prosecute any alcohol or drug abuse patient.[facility] the event this information is protected by the Federal Confidentiality of Alcohol and Drug Abuse Patient Records regulations: The Federal rules restrict any use of the information to criminally investigate or prosecute any alcohol or drug abuse patient.[facility] the event this information is protected by the Federal Confidentiality of Alcohol and Drug Abuse Patient Records regulations: The Federal rules restrict any use of the information to criminally investigate or prosecute any alcohol or drug abuse patient.[facility] the event this information is protected by the Federal Confidentiality of Alcohol and Drug Abuse Patient Records regulations: The Federal rules restrict any use of the information to criminally investigate or prosecute any alcohol or drug abuse patient.[facility] the event this information is protected by the Federal Confidentiality of Alcohol and Drug Abuse Patient Records regulations: The Federal rules restrict any use of the information to criminally investigate or prosecute any alcohol or drug abuse patient.[facility] the event this information is protected by the Federal Confidentiality of Alcohol and Drug Abuse Patient Records regulations: The Federal rules restrict any use of the information to criminally investigate or prosecute any alcohol or drug abuse patient.[facility] the event this information is protected by the Federal Confidentiality of Alcohol and Drug Abuse Patient Records regulations: The Federal rules restrict any use of the information to criminally investigate or prosecute any alcohol or drug abuse patient.[facility] the event this information is protected by the Federal Confidentiality of Alcohol and Drug Abuse Patient Records regulations: The Federal rules restrict any use of the information to criminally investigate or prosecute any alcohol or drug abuse patient.[facility] the event this information is protected by the Federal Confidentiality of Alcohol and Drug Abuse Patient Records regulations: The Federal rules restrict any use of the information to criminally investigate or prosecute any alcohol or drug abuse patient.[facility] the event this information is protected by the Federal Confidentiality of Alcohol and Drug Abuse Patient Records regulations: The Federal rules restrict any use of the information to criminally investigate or prosecute any alcohol or drug abuse patient.[facility] the event this information is protected by the Federal Confidentiality of Alcohol and Drug Abuse Patient Records regulations: The Federal rules restrict any use of the information to criminally investigate or prosecute any alcohol or drug abuse patient.[facility] the event this information is protected by the Federal Confidentiality of Alcohol and Drug Abuse Patient Records regulations: The Federal rules restrict any use of the information to criminally investigate or prosecute any alcohol or drug abuse patient.[facility] the event this information is protected by the Federal Confidentiality of Alcohol and Drug Abuse Patient Records regulations: The Federal rules restrict any use of the information to criminally investigate or prosecute any alcohol or drug abuse patient.[facility] the event this information is protected by the Federal Confidentiality of Alcohol and Drug Abuse Patient Records regulations: The Federal rules restrict any use of the information to criminally investigate or prosecute any alcohol or drug abuse patient.[facility] the event this information is protected by the Federal Confidentiality of Alcohol and Drug Abuse Patient Records regulations: The Federal rules restrict any use of the information to criminally investigate or prosecute any alcohol or drug abuse patient.[facility] the event this information is protected by the Federal Confidentiality of Alcohol and Drug Abuse Patient Records regulations: The Federal rules restrict any use of the information to criminally investigate or prosecute any alcohol or drug abuse patient.[facility] the event this information is protected by the Federal Confidentiality of Alcohol and Drug Abuse Patient Records regulations: The Federal rules restrict any use of the information to criminally investigate or prosecute any alcohol or drug abuse patient.[facility] the event this information is protected by the Federal Confidentiality of Alcohol and Drug Abuse Patient Records regulations: The Federal rules restrict any use of the information to criminally investigate or prosecute any alcohol or drug abuse patient.[facility] the event this information is protected by the Federal Confidentiality of Alcohol and Drug Abuse Patient Records regulations: The Federal rules restrict any use of the information to criminally investigate or prosecute any alcohol or drug abuse patient.[facility] the event this information is protected by the Federal Confidentiality of Alcohol and Drug Abuse Patient Records regulations: The Federal rules restrict any use of the information to criminally investigate or prosecute any alcohol or drug abuse patient.[facility] the event this information is protected by the Federal Confidentiality of Alcohol and Drug Abuse Patient Records regulations: The Federal rules restrict any use of the information to criminally investigate or prosecute any alcohol or drug abuse patient.[facility] the event this information is protected by the Federal Confidentiality of Alcohol and Drug Abuse Patient Records regulations: The Federal rules restrict any use of the information to criminally investigate or prosecute any alcohol or drug abuse patient.[facility] the event this information is protected by the Federal Confidentiality of Alcohol and Drug Abuse Patient Records regulations: The Federal rules restrict any use of the information to criminally investigate or prosecute any alcohol or drug abuse patient.[facility] the event this information is protected by the Federal Confidentiality of Alcohol and Drug Abuse Patient Records regulations: The Federal rules restrict any use of the information to criminally investigate or prosecute any alcohol or drug abuse patient.[facility] the event this information is protected by the Federal Confidentiality of Alcohol and Drug Abuse Patient Records regulations: The Federal rules restrict any use of the information to criminally investigate or prosecute any alcohol or drug abuse patient.[facility] the event this information is protected by the Federal Confidentiality of Alcohol and Drug Abuse Patient Records regulations: The Federal rules restrict any use of the information to criminally investigate or prosecute any alcohol or drug abuse patient.[facility] the event this information is protected by the Federal Confidentiality of Alcohol and Drug Abuse Patient Records regulations: The Federal rules restrict any use of the information to criminally investigate or prosecute any alcohol or drug abuse patient.[facility] the event this information is protected by the Federal Confidentiality of Alcohol and Drug Abuse Patient Records regulations: The Federal rules restrict any use of the information to criminally investigate or prosecute any alcohol or drug abuse patient.[facility] the event this information is protected by the Federal Confidentiality of Alcohol and Drug Abuse Patient Records regulations: The Federal rules restrict any use of the information to criminally investigate or prosecute any alcohol or drug abuse patient.[facility] Reason for Visit (unrecogniz ed section and content) Reason Onset Date Comments Refill Request 01/08/2022 Reason Comments Telemedicine Reason Comments Urinary Frequency burning with urinati on x 1 day Reason Comments Results Reason Comments Abdominal Pain Reason Comments Abdominal Pain 2 day follow up Reason Comments Results Reason Onset Date Comments Refill Request 07/27/2022 Reason Comments Sore Throat Reason Comments Ear Pain Pr reported (LT) ear pain x2 days. Reason Comments Patient Question Reason Comments Cough Reason Comments ER F/U Reason Comments Ear Problem Reason Comments Established Patient Pain Numbness Specialty Diagnoses / Procedures Referred By Ellyn t Referred To Contact Podiatry Diagnoses Pain of toe of right foot Procedures CONSULT TO PODIATRY OFFICE/OUTPATIENT [facility] MDM 60-74 MINUTES Rich Quick MD [address] [place] [address] Referral ID Status Reason Start Date Expiration Date V isits Requested Visits Authorized [id number] Closed PCP Requested Referral 10/13/2022 10/13/2023 1 1 Reason Onset Date Comments Refill Request 12/03/2022 Reason Comments Sinus Problem sinus pressure and d rainage x 5 days Reason Comments Patient Update Patient Question Reason Comments Patient Update Reason Comments Established Patient Pain Reason Onset Date Comments Refill Request 12/28/2022 Reason Comments Established Patient Follow Up Pain Care Teams (unrecognized sec tion and content) Vp Respiratory Relationship Specialty Start Date End Date Rich Quick MD [address] [place] [address] PCP - General Family Medicine 12/07/13 Vp Respiratory Relationship Specialty Start Date End Date Rich Quick MD [address] [place] [address] PCP - General Family Medicine 12/07/13 Vp Respiratory Relationship Specialty Start Date End Date Rich Quick MD [address] [place] [address] PCP - General Family Medicine 12/07/13 Vp Respiratory Relationship Specialty Start Date End Date Rich Quick MD [address] [place] [address] PCP - General Family Medicine 12/07/13 Vp Respiratory Relationship Specialty Start Date End Date Rich Quick MD [address] [place] [address] PCP - General Family Medicine 12/07/13 Vp Respiratory Relationship Specialty Start Date End Date Rich Quick MD [address] [place] [address] PCP - General Family Medicine 12/07/13 Vp Respiratory Relationship Specialty Start Date End Date Rich Quick MD [address] [place] [address] PCP - General Family Medicine 12/07/13 Vp Respiratory Relationship Specialty Start Date End Date Rich Quick MD [address] [place] [address] PCP - General Family Medicine 12/07/13 Vp Respiratory Relationship Specialty Start Date End Date Rich Quick MD [address] [place] [address] PCP - General Family Medicine 12/07/13 Vp Respiratory Relationship Specialty Start Date End Date Rich Quick MD [address] [place], [place] [address] PCP - General Family Medicine 12/07/13 Vp Respiratory Relationship Specialty Start Date End Date Rich Quick MD [address] [place] [address] PCP - General Family Medicine 12/07/13 Vp Respiratory Relationship Specialty Start Date End Date Rich uQick MD [address] [place] [address] PCP - General Family Medicine 12/07/13 Vp Respiratory Relationship Specialty Start Date End Date Rich Quick MD [address] [place] [address] PCP - General Family Medicine 12/07/13 Vp Respiratory Relationship Specialty Start Date End Date Rich Quick MD [address] [place] [address] PCP - General Family Medicine 12/07/13 Vp Respiratory Relationship Specialty Start Date End Date Rich Quick MD [address] [place], [place] [address] PCP - General Family Medicine 12/07/13 Vp Respiratory Relationship Specialty Start Date End Date Rich Quick MD [address] [place], [place] [address] PCP - General Family Medicine 12/07/13 Vp Respiratory Relationship Specialty Start Date End Date Rich Quick MD [address] [place], [place] [address] PCP - General Family Medicine 12/07/13 Vp Respiratory Relationship Specialty Start Date End Date Rich Quick MD [address] [place] [address] PCP - General Family Medicine 12/07/13 Vp Respiratory Relationship Specialty Start Date End Date Rich Quick MD [address] [place] [address] PCP - General Family Medicine 12/07/13 Vp Respiratory Relationship Specialty Start Date End Date Rich Quick MD [address] [place] [address] PCP - General Family Medicine 12/07/13 Vp Respiratory Relationship Specialty Start Date End Date Rich Quick MD [address] [place], [place] [address] PCP - General Family Medicine 12/07/13 FOR RECORDS PERTAINING TO PATIENTS WHO ARE OR HAVE BEEN ENROLLED IN A CHEMICAL DEPENDENCY/SUBSTANCEABUSE PROGRAM, SOME INFORMATION MAY BE OMITTED. This clinical summary was aggregated from multiple sources. Caution should be exercised in using it in the provision of clinical care. This summary normalizes information from multiple sources, and as a consequence, information in this document may materially change the coding, format and clinical context of patient data. In addition, data may be omitted in some cases. CLINICAL DECISIONS SHOULD BE BASED ON THE PRIMARY CLINICAL RECORDS. [employer] [facility]. provides no warranty or guarantee of the accuracy or completeness of information in this document.
== END 2023-03-10 11:41 | disposition home or self-care (01) ==
PROVIDERS: Emergency Provider Emergency Medicine; PCP Family Medicine; Visit Provider Emergency Medicine
DX: K21.9 Gastro-esophageal reflux disease without esophagitis (principal); F20.9 Schizophrenia, unspecified; F31.9 Bipolar disorder, unspecified; Z79.899 Other long term (current) drug therapy; Z90.49 Acquired absence of other specified parts of digestive tract
CPT/HCPCS: 99283

== ENCOUNTER 2023-04-17 15:10 | Emergency (ER) | payer MEDICARE, MEDICAID, SELFPAY ==
[2023-04-17 15:12] VITALS: BP 130/82; PULSE 102; RESP 18; TEMP 36.3; O2SAT 96; BMI 45.8
--- NOTE | 2023-04-17 15:25 | EKG12_ITS ---
Test Reason : MENTAL HEALTH Blood Pressure : / mmHG Vent. Rate : 096 BPM Atrial Rate : 096 BPM P-R Int : 152 ms QRS Dur : 098 ms QT Int : 356 ms P-R-T Axes : 027 006 034 degrees QTc Int : 449 ms Normal sinus rhythm Normal ECG Confirmed by RUDY BROOKS MD ([id number]), online content editor PREET LEON ([id number]) on 04/19/2023 6:30:37 AM Referred By: Confirmed By:RUDY BROOKS MD
--- NOTE | 2023-04-17 15:35 | EDS_ITS ---
<Statement entered by Sisi Zavala MD - 04/18/23 00:48> I have personally performed a face to face assessment of the patient and have reviewed the BINTA Note. Patient present secondary to suicidal ideation. Patient states that he woke this morning with suicidal thoughts and plan to either jump from a bridge or jump in front of traffic. He states he had a good day yesterday and does not know what changed today. He has had no recent changes to his psychiatric medication. He states he was started on lithium about a year ago. He does not know when the level was last checked. Patient sitting upright in bed no acute distress. Head and neck examination unremarkable. Heart is regular rate and rhythm. Lung sounds are clear. Abdomen is soft, obese, nontender. Lower extremity examination reveals 2 small areas of folliculitis on his left thigh that he has Lidoderm patch on. No sign of secondary infection. Lab work is largely unremarkable. COVID test is negative. Tox screen is positive only for opiates. EtOH is negative. Patient was seen by counseling center staff. They do request a pink slip and feel patient will need to be placed. He is currently pending at [facility]. He will be signed out to oncoming physician for further observation while awaiting placement. HPI History of Present Illness Chief Complaint: Suicidal Narrative Narrative: 27-year-old male has past medical history of schizoaffective disorder and PTSD and presents with suicidal ideation. Patient's and his family provide history. He had an inpatient mental health stay about a year ago and since then has been doing better. He sees a counselor and a psychiatrist and takes medications. Today he told his family he did not feel well and wanted to talk to a crisis counselor. He told the counselor he wants to end his life. He states it came on suddenly today and he is not sure why. Denies recent stressors. He states he has a plan to run in front of a car. 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 Pneumonia Psychiatric pseudoseizure PTSD (post-traumatic stress disorder) Schizophrenia Seizures Home Medications omeprazole 40 mg capsule,delayed release 40 mg PO DAILY 12/24/15 [History Last Taken Unknown] lamotrigine 200 mg tablet 200 mg PO BID 11/19/20 [History Last Taken Unknown] paliperidone 6 mg tablet,extended release 24 hr 3 mg PO QHS 06/02/22 [History Last Taken Unknown] paliperidone palm (3 month) 819 mg/2.63 mL intramuscular syringe (Invega Trinza) 819 mg IM Q3M 06/02/22 [History Last Taken 05/31/22] albuterol sulfate 90 mcg/actuation aerosol inhaler 2 puff inhalation Q6H PRN shortness of breath or wheezing 04/17/23 [History Last Taken Unknown] bisacodyl 5 mg tablet,delayed release (Dulcolax (bisacodyl)) 5 mg PO DAILY PRN constipation 04/17/23 [History Last Taken Unknown] dicyclomine 10 mg capsule 10 mg PO TID 04/17/23 [History Last Taken Unknown] docusate sodium 100 mg capsule (Colace) 100 mg PO DAILY 04/17/23 [History Last Taken Unknown] lidocaine 5 % topical patch 1 patch transdermal DAILY 04/17/23 [History Last Taken Unknown] lithium carbonate 300 mg capsule 300 mg PO QHS 04/17/23 [History Last Taken Unknown] sertraline 100 mg tablet 100 mg PO Q24H 04/17/23 [History Last Taken Unknown] triamcinolone acetonide 0.1 % topical ointment 1 applic topical BID PRN muscle relaxer 04/17/23 [History Last Taken Unknown] urea 40 % topical cream 1 applic topical DAILY 04/17/23 [History Last Taken Unknown] Allergy/AdvReac Type Severity Reaction Status Date / Time bee venom protein (honey bee) Allergy Anaphylaxis Verified 04/17/23 15:12 carbamazepine [From Tegretol] Allergy Unknown Verified 04/17/23 15:12 divalproex sodium Allergy Other Verified 04/17/23 15:12 [From Depakote] methylphenidate Allergy Unknown Verified 04/17/23 15:12 [From Concerta] methylphenidate HCl Allergy Unknown Verified 04/17/23 15:12 [From Ritalin] phenobarbital Allergy Hives Verified 04/17/23 15:12 Family History Other Asthma Diabetes Hypertension Kidney disease Surgical History H/O hernia repair Hx of cholecystectomy Hx of tympanostomy tubes Social History household members: family housing: house Smoking Status: Never smoker alcohol intake: never ROS ROS ED ROS Narrative Constitutional: Negative for fever, chills, malaise. CVS: Negative for chest pain Respiratory: Negative for shortness of breath. EXAM Physical Exam Narrative Exam Narrative: CONST: Patient sitting in no acute distress. EYES: Normal inspection. NECK: Normal inspection. RESP: No respiratory distress, CTAB. CVS: Regular rate and rhythm, no murmur, no gallop. SKIN: Color normal, no rash, warm, dry, intact. EXTREMITIES: Normal appearance, no pedal edema. NEURO: Oriented x4. PSYCH: Normal affect. Const Vital Signs: 04/17/23 15:12 04/17/23 19:36 04/17/23 23:44 Temperature 97.4 F L 97.2 F L 97.7 F L Temperature Source Temporal Temporal Temporal Pulse Rate 102 H 89 80 Respiratory Rate 18 18 18 Blood Pressure 130/82 H 116/88 H Blood Pressure Mean 98 97 Pulse Ox 96 93 94 Oxygen Delivery Method Room Air Room Air Room Air MDM MDM MDM Narrative Medical decision making narrative: History gathered from: Patient, mom Patient has history of schizoaffective disorder and PTSD presents with suicidal ideation with a plan to run in front of a car. He was sent in after talking with the crisis counselor for evaluation. He is awake alert in no distress. He is cooperative during the exam. Screening labs were ordered. CBC and CMP are unremarkable. Urine tox is positive for opiates. Alcohol negative. Churdan level is low which could be from him not taking the medication or a low-dose. COVID-19 test is negative. Patient is medically cleared and will be evaluated by crisis. Crisis counselor recommended inpatient treatment and pink slip was filled out. Patient is awaiting placement. Lab Data Attestation: I reviewed the patient's lab results. Labs: Laboratory Results - last 24 hr 04/17/23 04/17/23 15:27 15:35 WBC 7.1 RBC 4.75 Hgb 12.0 L Hct 38.7 L MCV 81.5 MCH 25.3 L MCHC 31.0 L RDW Std Deviation 42.2 RDW Coeff of Nano 14.3 Plt Count 275 MPV 8.9 Immature Gran % (Auto) 0.300 Neut % (Auto) 68.8 Lymph % (Auto) 22.8 [place] % (Auto) 8.0 Eos % (Auto) 0.0 Baso % (Auto) 0.1 Absolute Neuts (auto) 4.9 Absolute Lymphs (auto) 1.63 Nucleated RBC % 0 Sodium 139 Potassium 3.8 Chloride 110 H Carbon Dioxide 24.0 Anion Gap 5 BUN 7 Creatinine 0.75 Estim Creat Clear Calc 202.89 Est GFR (MDRD) Af Amer 157 Est GFR (MDRD) Non-Af 130 BUN/Creatinine Ratio 9.3 L Glucose 114 H Calcium 8.8 Total Bilirubin 0.20 AST 24 ALT 38 Alkaline Phosphatase 73 Total Protein 7.0 Albumin 3.4 Globulin 3.6 Albumin/Globulin Ratio 0.9 Urine Opiates Screen POSITIVE H Urine Methadone Screen NEGATIVE Ur Barbiturates Screen NEGATIVE Ur Phencyclidine Scrn NEGATIVE Ur Amphetamines Screen NEGATIVE MDMA (Ecstasy) Screen NEGATIVE U Benzodiazepines Scrn NEGATIVE Churdan < 0.20 L Urine Cocaine Screen NEGATIVE U Cannabinoids Screen NEGATIVE Ur Drug Screen Comment Ethyl Alcohol < 3.0 EKG Initial EKG: Attestation: I personally reviewed and interpreted this EKG as follows: Interpretation: Sinus Rhythm and No Acute Injury Pattern Comments: Normal sinus rhythm at 96 bpm Normal intervals, no acute ischemic change Discharge Plan Triage Chief Complaint: Suicidal ED Midlevel Provider: Yennifer Will ED Provider: Sisi Zavala Dx/Rx/DC Orders Clinical Impression: Depression with suicidal ideation Prescriptions: No Action omeprazole 40 MG capsule 40 mg PO DAILY lamotrigine 200 mg tablet 200 mg PO BID paliperidone 6 mg tablet extended release 24hr 3 mg PO QHS Invega Trinza 819 mg/2.63 mL syringe 819 mg IM Q3M lidocaine 5 % adhesive patch,medicated 1 patch transdermal DAILY Patient Comments: apply 1 patch as directed every 12 hours REMOVE OLD patch PRIOR T... (REFER TO PRESCRIPTION NOTES). left leg albuterol sulfate 90 mcg/actuation HFA aerosol inhaler 2 puff INHALATION Q6H PRN (Reason: shortness of breath or wheezing) Patient Comments: inhale 2 puffs by mouth INSTRUCTED EVERY 6 HOURS NEEDED lithium carbonate 300 mg capsule 300 mg PO QHS dicyclomine 10 mg capsule 10 mg PO TID Patient Comments: take 1 capsule by mouth before meals and AT BEDTIME sertraline 100 mg tablet 100 mg PO Q24H triamcinolone acetonide 0.1 % ointment 1 applic TOPICAL BID PRN (Reason: muscle relaxer) Patient Comments: apply to affected area twice a day left upper thigh urea 40 % cream 1 applic TOPICAL DAILY Patient Comments: apply to affected area once daily bilat feet docusate sodium [Colace] 100 mg capsule 100 mg PO DAILY bisacodyl [Dulcolax (bisacodyl)] 5 mg tablet,delayed release (DR/EC) 5 mg PO DAILY PRN (Reason: constipation) Primary Care Provider: Turner Quick Referrals: Turner Quick MD [Primary Care Provider] -
--- OUTSIDE RECORDS SUMMARY | 2023-04-17 15:49 | XMS RPT_ITS | CCD ---
Author Name Unknown Address [id number] [place] [address] Organization [facility] Care Team Providers Care Street Light Wirer Name Role Phone Ashleigh Kaplan Attending Unavailabl e Horrigan, Ashleigh Alysa Attending Unavailabl e Horrigan, Ashleigh Alysa Attending Unavailabl e Horrigan, Ashleigh Alysa Attending Unavailabl e Horrigan, Ashleigh Alysa Attending Unavailabl e Horrigan, Ashleigh Alysa Attending Unavailabl e Horrigan, Ashleigh Alysa Attending Unavailabl e Horrigan, Ashleigh Watt Attending Unavailabl e Rich Quick MD Primary Care Provider Rich Quick MD Primary Care Provider Rich Quick MD Primary Care Provider Pacer, Ms. Agata Muñiz Attending Unavailabl e Pacer, Ms. Agata Muñiz Attending Unavailabl e Pacer, Ms. Agata Muñiz Attending Unavailabl e Pacer, Ms. Agata Muñiz Attending Unavailabl e Pacer, Ms. Agata Muñiz Attending Unavailabl e Pacer, Ms. Agata Muñiz Attending Unavailabl e RICH QUICK Primary Care Unavailable FERN YAÑEZ Referring Unavailable FRANCY MITTAL Attending Unavailable RICH QUICK Primary Care Unavailable RICH QUICK Referring Unavailable RICH QUICK Primary Care Unavailable RICH QUICK Primary Care Unavailable RICH QUICK Primary Care Unavailable RICH QUICK Attending Unavailable RICH QUICK Primary Care Unavailable Enriqueta GRAHAM Referring Unavailable RICH QUICK Primary Care Unavailable FERN YAÑEZ Referring Unavailable FERN YAÑEZ Attending Unavailable RICH QUICK Primary Care Unavailable RICH QUICK Primary Care Unavailable RICH QUICK Primary Care Unavailable RICH QUICK Primary Care Unavailable FERN YAÑEZ Referring Unavailable TESTFERN MARIEE Attending Unavailable RICH QUICK Primary Care Unavailable RICH QUICK Referring Unavailable NIHARIKA, RICH Antunez Primary Care Unavailable NIHARIKA, RICH Antunez Attending Unavailable NIHARIKA, RICH Antunez Primary Care Unavailable Enriqueta GRAHAM Attending Unavailable RICH QUICK Primary Care Unavailable NIHARIKA, RICH Antunez Attending Unavailable NIHARIKA, RICH Antunez Attending Unavailable NIHARIKA, RICH Antunez Primary Care Unavailable NIHARIKA, IRCH Antunez Primary Care Unavailable TESTFERN MARIEE Attending Unavailable NIHARIKA, RICH Antunez Referring Unavailable NIHARIKA, RICH Antunez Primary Care Unavailable NIHARIKA, RICH Antunez Attending Unavailable NIHARIKA, RICH Antunez Referring Unavailable NIHARIKA, RICH Antunez Primary Care Unavailable NIHARIKA, RICH Antunez Primary Care Unavailable TESTFERN MARIEE Attending Unavailable NIHARIKA, RICH Antunez Referring Unavailable NIHARIKA, RICH Antunez Primary Care Unavailable NIHARIKA, RICH Antunez Attending Unavailable NIHARIKA, RICH Antunez Primary Care Unavailable NIHARIKA, RICH Antunez Primary Care Unavailable Enriqueta GRAHAM Attending Unavailable NIHARIKA, RICH Antunez Primary Care Unavailable Enriqueta GRAHAM Attending Unavailable RICH QUICK Primary Care Unavailable FERN YAÑEZ Referring Unavailable RICH QUICK Primary Care Unavailable NIHARIKA, RICH Antunez Primary Care Unavailable Allergies Allergy Classification Reported Allergen(s) Allergy Type Date of Onset Reaction(s) Facility (20 sources) Methylphenidate; Translations: [METHYLPHENIDATE ANALOGUES] Drug Allergy 07-08-2014 Other: See Comments [facility] (20 sources) Methylphenidate; Translations: [METHYLPHENIDATE HCL] Drug Allergy 01-08-2005 Intolerance [facility] Work Phone: (20 sources) PHENobarbital; Translations: [PHENOBARBITAL] Drug Allergy 01-08-2005 Intolerance [facility] Work Phone: (20 sources) Valproate; Translations: [DIVALPROEX] Drug Allergy 07-08-2020 Intolerance [facility] Medications Current Medications Medication Drug Class(es) [...] Drug Class(es) Dates Sig (Normalized) Sig (Original) [id number] 200 actuat albuterol 0.09 mg/actuat metered dose inhaler (20 sources) beta2-Adrenergic Agonist Start: 08-31-2022 take 2 puff(s) by inhalation every six hours as needed albuterol HFA (PROAIR HFA) 90 mcg/actuation inhaler Inhale 2 Puffs as instructed every 6 hours as needed. 18 g 0 08/31/2022 Active Problems Active Problems Problem Classification Problem Date Documented Date Episodic/Chronic Allergic reactions (1 source) Inflammatory dermatosis; Translations: [Dermatitis, unspecified] 04-12-2023 Episodic Asthma (20 sources) Mild intermittent asthma; Translations: [Mild intermittent asthma, uncomplicated] Onset: 01-30-2016 01-30-2016 Chronic Attention-deficit, conduct, and disruptive behavior disorders (20 sources) Attention deficit hyperactivity disorder; Translations: [Attention-deficit hyperactivity disorder, unspecified type] 01-13-2015 Chronic Attention-deficit, conduct, and disruptive behavior disorders (1 source) Attention-deficit hyperactivity disorder, unspecified type; Translations: [Attention deficit hyperactivity disorder (ADHD), unspecified ADHD type] Onset: 01-13-2015 Chronic Calculus of urinary tract (1 source) History of calculus of kidney; Translations: [Personal history of urinary calculi] Episodic Chronic obstructive pulmonary disease and bronchiectasis (4 sources) Bronchitis; Translations: [Bronchitis, not specified as acute or chronic] Onset: 03-22-2023 09-03-2022 Episodic Delirium, dementia, and amnestic and other cognitive disorders (1 source) Postconcussional syndrome; Translations: [Post concussion syndrome] Onset: 03-14-2023 Chronic Disorders usually diagnosed in infancy, childhood, or adolescence (20 sources) Asperger's disorder; Translations: [Asperger's syndrome] Onset: 10-02-2015 03-08-2017 Chronic Epilepsy; convulsions (1 source) Absence epileptic syndrome, not intractable, without status epilepticus; Translations: [Non-motor epileptic seizure (HCC)] Onset: 03-13-2023 Chronic Esophageal disorders (20 sources) Gastroesophageal reflux disease; Translations: [Gastro-esophageal reflux disease without esophagitis] Onset: 01-30-2016 01-30-2016 Chronic Genitourinary symptoms and ill-defined conditions (3 sources) Dysuria; Translations: [Dysuria] Episodic Immunity disorders (20 sources) Selective immunoglobulin dysfunction; 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, unspecified] 01-08-2005 Chronic Immunizations and screening for infectious disease (1 source) Encounter for immunization; Translations: [Encounter for immunization] Onset: 03-14-2023 Episodic Impulse control disorders, NEC (1 source) Impulse disorder, unspecified; Translations: [Impulse control disorder] Onset: 03-14-2023 Chronic Miscellaneous mental health disorders (20 sources) Dissociative convulsions; Translations: [Conversion disorder with seizures or convulsions] Onset: 10-02-2015 02-23-2021 Chronic Mycoses (1 source) Tinea cruris; Translations: [Tinea cruris] Onset: 03-14-2023 Episodic Nervous system congenital anomalies (15 sources) Partial agenesis of corpus callosum; Translations: [...] [Impacted cerumen, right ear] 10-20-2022 Episodic Other nervous system disorders (1 source) Other chronic pain; Translations: [Chronic pain of both knees] Onset: 10-01-2022 Chronic Other nutritional; endocrine; and metabolic disorders (20 sources) Morbid obesity; Translations: [Morbid (severe) obesity due to excess calories] Onset: 01-30-2016 01-30-2016 Chronic Other nutritional; endocrine; and metabolic disorders (3 sources) Body mass index 40+ - severely obese; Translations: [Morbid (severe) obesity due to excess calories] Onset: 03-14-2023 03-14-2023 Chronic Other nutritional; endocrine; and metabolic disorders (2 sources) Morbid (severe) obesity due to excess calories; Translations: [Morbid obesity (HCC)] Onset: 01-30-2016 Chronic Other skin disorders (1 source) Skin irritation ; Translations: [Other skin changes] 04-06-2023 Episodic Other upper respiratory infections (4 sources) Acute upper respiratory infection; Translations: [Acute upper respiratory infection, unspecified] Onset: 03-14-2023 Episodic Otitis media and related conditions (1 source) Acute left otitis media; Translations: [Otitis media, unspecified, left ear] Episodic Schizophrenia and other psychotic disorders (4 sources) Schizoaffective disorder, bipolar type; Translations: [Schizoaffective disorder, bipolar type] Onset: 03-14-2023 03-14-2023 Chronic Unclassified (20 sources) PMH - PAST MEDICAL HISTORY OF 01-08-2005 Unclassified (1 source) rt heel callus Onset: 03-29-2023 Viral infection (1 source) Disease caused by 2019-nCoV; Translations: [COVID-19] Episodic Past or Other Problems Problem Classification Problem Date Documented Da te Episodic/Chronic Abdominal pain (11 sources) Epigastric pain; Translations: [Epigastric pain] Onset: 06-29-2022 Episodic E Codes: Natural/environment (3 sources) Repetitive motion disorder; Translations: [Overexertion from repetitive movements, initial encounter] Onset: 12-17-2022 12-17-2022 Episodic Other aftercare (1 source) Encounter for therapeutic drug level monitoring; Translations: [Medication monitoring encounter] Onset: 06-29-2022 Episodic Other connective tissue disease (1 source) Pain in right toe(s); Translations: [Pain of toe of right foot] Onset: 11-03-2022 Episodic Other ear and sense organ disorders (2 sources) Otalgia, right ear; Translations: [Otalgia, unspecified] Onset: 10-20-2022 10-20-2022 Episodic Other ear and sense organ disorders (1 source) Impacted cerumen, right ear; Translations: [Impacted cerumen of right ear] Onset: 10-20-2022 Episodic Other non-traumatic joint disorders (1 source) [...] Test Name Value Interpretation Reference Range Facil it Vital Signs Date Time Vital Sign Value Performing Clinician Kemal giang 04-12-2023 14:01-0500 Diastolic blood pressure 74 mm[Hg] Francy Mittal APRN.CNP Work Phone: [facility] 04-12-2023 14:01-0500 Heart rate 107 /min Francy Mittal APRN.TRANSITION SOCIAL WORKER Work Phone: [facility] 04-12-2023 14:01-0500 Respiratory rate 16 /min Francy Mittal APRN.TRANSITION SOCIAL WORKER Work Phone: [facility] 04-12-2023 14:01-0500 SaO2% (BldA) [Mass fraction] 95 % Francy Mittal APRN.CNP Work Phone: [facility] 04-12-2023 14:01-0500 Systolic blood pressure 122 mm[Hg] Francy Mittal APRN.TRANSITION SOCIAL WORKER Work Phone: [facility] 04-06-2023 17:17-0500 Body temperature 98.6 [degF] Woo Vargas APRN.CNP Work Phone: [facility] 04-06-2023 17:17-0500 Body weight 142.52 kg Woo Vargas APRN.CNP Work Phone: [facility] 04-06-2023 17:17-0500 Diastolic blood pressure 82 mm[Hg] Woo Sam SEAM STAYER.TRANSITION SOCIAL WORKER Work Phone: [facility] 04-06-2023 17:17-0500 Heart rate 109 /min Woo Sam SEAM STAYER.TRANSITION SOCIAL WORKER Work Phone: [facility] 04-06-2023 17:17-0500 Respiratory rate 16 /min Woo Vargas SEAM STAYER.TRANSITION SOCIAL WORKER Work Phone: [facility] 04-06-2023 17:17-0500 SaO2% (BldA) [Mass fraction] 95 % Woo Vargas SEAM STAYER.TRANSITION SOCIAL WORKER Work Phone: [facility] 04-06-2023 17:17-0500 Systolic blood pressure 112 mm[Hg] Woo Sam SEAM STAYER.TRANSITION SOCIAL WORKER Work Phone: [facility] 12-06-2022 14:01-0400 Body temperature 98.49 [degF] Jatin Brown MD Work Phone: [facility] 12-06-2022 14:01-0400 Body weight 143.34 kg Jatin Brown MD Work Phone: [facility] 12-06-2022 14:01-0400 Diastolic blood pressure 66 mm[Hg] Jatin Brown MD Work Phone: [facility] 12-06-2022 14:01-0400 Heart rate 102 /min Jatin Brown MD Work Phone: [facility] 12-06-2022 14:01-0400 Respiratory rate 16 /min Jatin Brown MD Work Phone: [facility] 12-06-2022 14:01-0400 SaO2% (BldA) [Mass fraction] 95 % Jatin Brown MD Work Phone: [facility] 12-06-2022 14:01-0400 Systolic blood pressure 124 mm[Hg] Jatin Brown MD Work Phone: [facility] 10-20-2022 16:22-0400 Body weight 141.34 kg Rich Quick MD Work Phone: [facility] 10-20-2022 16:22-0400 Diastolic blood pressure 62 mm[Hg] Rich Quick MD Work Phone: [facility] 10-20-2022 16:22-0400 Heart rate 87 /min Rich Quick MD Work Phone: [facility] 10-20-2022 16:22-0400 Respiratory rate 16 /min Rich Quick MD Work Phone: [facility] 10-20-2022 16:22-0400 SaO2% (BldA) [Mass fraction] 97 % Rich Quick MD Work Phone: [facility] 10-20-2022 16:22-0400 Systolic blood pressure 112 mm[Hg] Rich Quick MD Work Phone: [facility] 10-13-2022 16:22-0400 Body weight 139.71 kg Rich Quick MD Work Phone: [facility] 10-13-2022 16:22-0400 Diastolic blood pressure 75 mm[Hg] Rich Quick MD Work Phone: [facility] 10-13-2022 16:22-0400 Heart rate 100 /min Rich Quick MD Work Phone: [facility] 10-13-2022 16:22-0400 SaO2% (BldA) [Mass fraction] 96 % Rich Quick MD Work Phone: [facility] 10-13-2022 16:22-0400 Systolic blood pressure 112 mm[Hg] Rich Quick MD Work Phone: [facility] 09-13-2022 15:14-0400 Body weight 138.8 kg Rich Quick MD Work Phone: [facility] 09-13-2022 15:14-0400 Diastolic blood pressure 74 mm[Hg] Rich Quick MD Work Phone: [facility] 09-13-2022 15:14-0400 Heart rate 101 /min Rich Quick MD Work Phone: [facility] 09-13-2022 15:14-0400 SaO2% (BldA) [Mass fraction] 95 % Rich Quick MD Work Phone: [facility] 09-13-2022 15:14-0400 Systolic blood pressure 110 mm[Hg] Rich Qiuck MD Work Phone: [facility] 09-03-2022 16:05-0400 Body height 185.4 cm Rich Quick MD Work Phone: [facility] 09-03-2022 16:05-0400 Body temperature 99.81 [degF] Rich Quick MD Work Phone: [facility] 09-03-2022 16:05-0400 Body weight 141.16 kg Rich Quick MD Work Phone: [facility] 09-03-2022 16:05-0400 Diastolic blood pressure 64 mm[Hg] Rich Quick MD Work Phone: [facility] 09-03-2022 16:05-0400 Heart rate 95 /min Rich Quick MD Work Phone: [facility] 09-03-2022 16:05-0400 SaO2% (BldA) [Mass fraction] 95 % Rich Quick MD Work Phone: [facility] 09-03-2022 16:05-0400 Systolic blood pressure 108 mm[Hg] Rich Quick MD Work Phone: [facility] 08-19-2022 10:33-0400 Body temperature 98.8 [degF] Krislyn Aberegg PA Work Phone: [facility] 08-19-2022 10:33-0400 Body weight 140.07 kg Krislyn Aberegg PA Work Phone: [facility] 08-19-2022 10:33-0400 Diastolic blood pressure 68 mm[Hg] Krislyn Aberegg PA Work Phone: [facility] 08-19-2022 10:33-0400 Heart rate 122 /min Krislyn Aberegg PA Work Phone: [facility] 08-19-2022 10:33-0400 Respiratory rate 20 /min Krislyn Aberegg PA Work Phone: [facility] 08-19-2022 10:33-0400 SaO2% (BldA) [Mass fraction] 96 % Krislyn Aberegg PA Work Phone: [facility] 08-19-2022 10:33-0400 Systolic blood pressure 112 mm[Hg] Krislyn Aberegg PA Work Phone: [facility] 08-17-2022 14:11-0400 Body height 185.4 cm Krislyn Aberegg PA Work Phone: [facility] 08-17-2022 14:11-0400 Body temperature 100.4 [degF] Krislyn Aberegg PA Work Phone: [facility] 08-17-2022 14:11-0400 Body weight 140.16 kg Krislyn Aberegg PA Work Phone: [facility] 08-17-2022 14:11-0400 Diastolic blood pressure 72 mm[Hg] Krislyn Aberegg PA Work Phone: [facility] 08-17-2022 14:11-0400 Heart rate 112 /min Krislyn Aberegg PA Work Phone: [facility] 08-17-2022 14:11-0400 Respiratory rate 16 /min Krislyn Aberegg PA Work Phone: [facility] 08-17-2022 14:11-0400 Systolic blood pressure 128 mm[Hg] Krislyn Aberegg PA Work Phone: [facility] 07-01-2022 16:12-0400 Body height 185.4 cm Rich Quick MD Work Phone: [facility] 07-01-2022 16:12-0400 Body weight 144.24 kg Rich Quick MD Work Phone: [facility] 07-01-2022 16:12-0400 Diastolic blood pressure 70 mm[Hg] Rich Quick MD Work Phone: [facility] 07-01-2022 16:12-0400 Heart rate 79 /min Rich Quick MD Work Phone: [facility] 07-01-2022 16:12-0400 SaO2% (BldA) [Mass fraction] 96 % Rich Quick MD Work Phone: [facility] 07-01-2022 16:12-0400 Systolic blood pressure 112 mm[Hg] Rich Quick MD Work Phone: [facility] 06-29-2022 16:13-0400 Body height 185.4 cm Rich Quick MD Work Phone: [facility] 06-29-2022 16:13-0400 Body temperature 97 [degF] Rich Quick MD Work Phone: [facility] 06-29-2022 16:13-0400 Body weight 144.24 kg Rich Quick MD Work Phone: [facility] 06-29-2022 16:13-0400 Diastolic blood pressure 62 mm[Hg] Rich Quick MD Work Phone: [facility] 06-29-2022 16:13-0400 Heart rate 78 /min Rich Quick MD Work Phone: [facility] 06-29-2022 16:13-0400 SaO2% (BldA) [Mass fraction] 96 % Rich Quick MD Work Phone: [facility] 06-29-2022 16:13-0400 Systolic blood pressure 90 mm[Hg] Rich Quick MD Work Phone: [facility] 03-24-2022 11:32-0500 Body temperature 97.7 [degF] Jatin Brown MD Work Phone: [facility] 03-24-2022 11:32-0500 Body weight 146.06 kg Jatin Brown MD Work Phone: [facility] 03-24-2022 11:32-0500 Diastolic blood pressure 80 mm[Hg] Jatin Brown MD Work Phone: [facility] 03-24-2022 11:32-0500 Heart rate 116 /min Jatin Brown MD Work Phone: [facility] 03-24-2022 11:32-0500 Respiratory rate 18 /min Jatin Brown MD Work Phone: [facility] 03-24-2022 11:32-0500 SaO2% (BldA) [Mass fraction] 96 % Jatin Brown MD Work Phone: [facility] 03-24-2022 11:32-0500 Systolic blood pressure 122 mm[Hg] Jatin Brown MD Work Phone: [facility] 05-25-2021 10:32-0400 Body temperature 97.59 [degF] Jatin Brown MD Work Phone: [facility] 05-25-2021 10:32-0400 Body weight 138.8 kg Jatin Brown MD Work Phone: [facility] 05-25-2021 10:32-0400 Diastolic blood pressure 72 mm[Hg] Jatin Brown MD Work Phone: [facility] 05-25-2021 10:32-0400 Heart rate 104 /min Jatin Brown MD Work Phone: [facility] 05-25-2021 10:32-0400 Respiratory rate 20 /min Jatin Brown MD Work Phone: [facility] 05-25-2021 10:32-0400 SaO2% (BldA) [Mass fraction] 96 % Jatin Brown MD Work Phone: [facility] 05-25-2021 10:32-0400 Systolic blood pressure 122 mm[Hg] Jatin Brown MD Work Phone: [facility] Encounters Encounter Date Encounter Type Care Provider Facility Start: 04-12-2023 [facility] Facility :[facility] Start: 04-12-2023 End: 04-12-2023 Office outpatient visit 15 minutes Francy Haagen SEAM STAYER.TRANSITION SOCIAL WORKER Work Phone: [facility] Procedures Date Procedure Procedure Detail Performing Clinician Start: 12-17-2022 Radex ankle complete minimum 3 views Fern Yañez Work Phone: Start: 12-06-2022 Sars-cov-2 detection by dna/rna Jatin Brown MD Work Phone: Start: 11-03-2022 Radex foot complete minimum 3 views Fern Yañez Work Phone: Start: 08-17-2022 STREP A MOLECULAR (POC) Michelle Wang SEAM STAYER.TRANSITION SOCIAL WORKER Work Phone: Start: 03-24-2022 Urnls dip stick/tabl et rgnt auto w/o microscopy Jina Marion SEAM STAYER.TRANSITION SOCIAL WORKER Work Phone: Start: 04-27-2018 End: 04-27-2018 Electrocardiogram Start: 03-06-2015 Adult depression scr eening assessment Jatin Brown MD Work Phone: Plan of Treatment Date Care Activity Detail Author Start: 07-29-2026 Urine microalbumin profile [facility] Start: 04-12-2024 Annual PCP Team [employer] ander Disease Visit Annual PCP Team Chronic Disease Visit [facility] Start: 03-22-2024 Annual PCP Team Airport Traffic Controller ander Disease Visit Annual PCP Team Chronic Disease Visit [facility] Start: 10-21-2023 ANNUAL PCP TEAM BAR TACKER SEWING MACHINE ANDER DISEASE VISIT ANNUAL PCP TEAM CHRONIC DISEASE VISIT [facility] Start: 10-14-2023 ANNUAL PCP TEAM BAR TACKER SEWING MACHINE ANDER DISEASE VISIT ANNUAL PCP TEAM CHRONIC DISEASE VISIT [facility] Start: 09-14-2023 ANNUAL PCP TEAM BAR TACKER SEWING MACHINE ANDER DISEASE VISIT ANNUAL PCP TEAM CHRONIC DISEASE VISIT [facility] Start: 09-04-2023 ANNUAL PCP TEAM BAR TACKER SEWING MACHINE ANDER DISEASE VISIT ANNUAL PCP TEAM CHRONIC DISEASE VISIT [facility] Start: 07-02-2023 ANNUAL PCP TEAM BAR TACKER SEWING MACHINE ANDER DISEASE VISIT ANNUAL PCP TEAM CHRONIC DISEASE VISIT [facility] Start: 06-30-2023 ANNUAL PCP TEAM BAR TACKER SEWING MACHINE ANDER DISEASE VISIT ANNUAL PCP TEAM CHRONIC DISEASE VISIT [facility] Start: 02-28-2023 Depression Assessment Depression Ass essment [facility] Start: 02-01-2023 ANNUAL PCP TEAM BAR TACKER SEWING MACHINE ANDER DISEASE VISIT ANNUAL PCP TEAM CHRONIC DISEASE VISIT [facility] Start: 10-29-2022 Covid-19 Vaccine ( season) Covid-19 Vaccine ( season) [facility] Start: 10-29-2022 Influenza vaccination [facility] Start: 06-29-2022 End: 08-29-2022 Bacteria identified in Urine by Culture [facility] Work Phone: Immunizations Immunization Date Immunization Notes Care Provider Fa cility 12-23-2020 influenza, injectabl e, quadrivalent, contains preservative Jatin Brown MD Work Phone: [facility] 12-23-2020 influenza virus vaccine, unspecified formulation Rich Quick MD Work Phone: [facility] 12-22-2017 influenza, injectabl e, quadrivalent, preservative free Jatin Brown MD Work Phone: [facility] 01-14-2017 influenza, injectabl e, quadrivalent, contains preservative Jatin Brown MD Work Phone: [facility] 07-29-2016 tetanus toxoid, redu dexter diphtheria toxoid, and acellular pertussis vaccine, adsorbed Jatin Brown MD Work Phone: [facility] Work Phone: 12-12-2014 influenza, seasonal, injectable Jatin Brown MD Work Phone: [facility] 12-24-2013 influenza, seasonal, injectable Jatin Brown MD Work Phone: [facility] Payers Date Payer Category Payer Medicaid [id number] 2020 [place] [id number] 2020-Present [phone] [address] [place] [address] Medicaid [id number] 2020 [place] [id number] 2020-Present [phone] [address] [place] [address] Medicaid [id number] 2018 Unknown MEDPAY MEDPAY xx [id number] 2018-Present [address] [place] [address] Indemnity [id number] 2017 Medicare [id number] 2017 Medicare MEDICARE MEDICAR E A AND B [id number] 2017-Present [phone] [place] [address] Medicare [id number] 2017 Medicare MEDICARE MEDICAR E A AND B [id number] 2017-Present [phone] [place] [address] Medicare [id number] 1993 Unknown [id number] 1993 Unknown [id number] 1993 Unknown [id number] 1993 Unknown [id number] 1993 Unknown [id number] 1993 Unknown [id number] 1993 Unknown [id number] 1993 Unknown [id number] 1993 Unknown [id number] 1993 Unknown [id number] 1993 Unknown [id number] 1993 Unknown [id number] 1993 Unknown [id number] 1995 Unknown [id number] 1995 Unknown [id number] Unknown [id number] Unknown [id number] Unknown 189 Social History Date Type Detail Facility Start: 12-07-2013 Tobacco smoking stat [facility] Never smoked tobacco [facility] Work Phone: Start: 05-25-2021 End: 11-03-2022 Alcohol intake Current non-drinker of alcohol (finding) [facility] Start: 1995 Sex Assigned At Not on file [facility] Start: 05-15-2021 End: 05-25-2021 Exposure to SARS-CoV-2 (event) Not sure [facility] Work Phone: Start: 12-07-2013 Tobacco use and exposure Smoke less tobacco non-user [facility] Start: 02-01-2022 History SDOH Alcohol Frequency 1 [facility] Start: 02-01-2022 History SDOH Alcohol Std Drinks 0 [facility] Start: 02-01-2022 History SDOH Social Connections Phone 4 [facility] Start: 02-01-2022 History SDOH Social Connections Get Together 5 [facility] Start: 02-01-2022 History SDOH Social Connections Faith 3 [facility] Start: 02-01-2022 History SDOH Social Connections Meetings 2 [facility] Start: 02-01-2022 History SDOH Social Connections Living 7 [facility] Start: 02-01-2022 End: 01-03-2023 History of Social function [facility] Start: 02-01-2022 End: 01-03-2023 Social connection and isolation panel [facility] Do you belong to any clubs or organizations such as confucianism groups, unions, fraternal or athletic groups, or school groups? Yes [facility] Are you now , , , , never or living with a partner? Never [facility] How often to you hav e a drink containing alcohol? Never [facility] How many standard dr inks containing alcohol do you have on a typical day? Patient does not drink [facility] How hard is it for y ou to pay for the very basics like food, housing, medical care, and heating Not very hard [facility] Do you feel stress - tense, restless, nervous, or anxious, or unable to sleep at night because your mind is troubled all the time - these days [OSQ] Not at all [facility] (I/We) worried wheth er (my/our) food would run out before (I/we) got money to buy more. Sometimes true [facility] The food that (I/we) bought just didn't last, and (I/we) didn't have money to get more. Often true [facility] In the past 12 month s, was there a time when you were not able to pay the mortgage or rent on time? No [facility] Start: 12-17-2022 End: 04-12-2023 Alcohol intake Lifetime non-drinker (finding) [facility] How hard is it for y ou to pay for the very basics like food, housing, medical care, and heating Somewhat hard [facility] Do you feel stress - tense, restless, nervous, or anxious, or unable to sleep at night because your mind is troubled all the time - these days [OSQ] To some extent [facility] (I/We) worried wheth er (my/our) food would run out before (I/we) got money to buy more. Never true [facility] Clinical Notes 04-09-2015 to 04-12-2023 Francy Mittal APRN.TRANSITION SOCIAL WORKER - 04/12/2023 2:15 PM Woo Augustin APRN.CASTRO - 04/06/2023 5:40 PM ESTTelephone Encounter - Li ManciniMARTHA - 04/06/2023 11:04 AM ESTPatient Instructions Note Date & Type Note Facility 04-12-2023 Note HNO ID: [id number] Author: FRANCY MITTAL APRN.TRANSITION SOCIAL WORKER Service: ? Author Type: Nurse Practitioner Type: Progress Notes Filed: 04/12/2023 16:47 Note Text: This is a 27 year old male who presents today with: Patient presents with: Recheck: Rash on left upper thigh x1 week; not getting any better HISTORY OF PRESENT ILLNESS: Levy Todd is a 27 year old male. Patient presents with: Recheck: Rash on left upper thigh x1 week; not getting any better Pt presents today with rash on the left upper thigh. Been present for 1 week and 1 day. + itch. + hurt. No blisters. Unsure if it has changed at all. He did recently have bronchitis for 6 weeks. Was in urgent care on 04/06 with the rash. Thought that it may have been a reaction to a rented tux. Was given voltaren gel and lidocaine. PAST MEDICAL HISTORY: PAST MEDICAL HISTORY Diagnosis [...] [Divalproex], Phenobarbital, and Ritalin [Methylphenidate Hcl] MEDICATIONS Current Outpatient Medications Medication Sig budesonide (PULMICORT FLEXHALER) 90 mcg/actuation aepb Inhale 2 Puffs as instructed two times a day. diclofenac (VOLTAREN ARTHRITIS PAIN) 1 % topical gel Apply 2 g to affected area four times daily. lidocaine (LIDODERM) 5 % Apply 1 Patch as directed every 12 hours. Remove old patch prior to placing new patch. Location: left leg urea (CARMOL) 40 % Apply to affected area once daily. benzonatate (TESSALON PERLES) 100 mg capsule Take 2 capsules by mouth three times a day as needed for cough. dicyclomine (BENTYL) 10 mg capsule Take 1 capsule by mouth before meals and at bedtime. omeprazole (PRILOSEC) 40 mg capsule Take 1 capsule by mouth once daily. fluticasone (FLONASE) 50 mcg/actuation nasal spray Use 2 Sprays in each nostril once daily. Rinse mouth after use. albuterol HFA (PROAIR HFA) 90 mcg/actuation inhaler [...] intramuscularly every 4 weeks. Every three months No current facility-administered medications for this visit. FAMILY HISTORY Problem Relation Age of Onset [...] Never used Substance Use Topics Alcohol use: Never Drug use: Never EXAM: BP 122/74 Pulse 107 Resp 16 SpO2 95% PHYSICAL EXAM: General Appearance: Well appearing, alert, in no acute distress, well-hydrated, well nourished.. Skin: Skin color, texture, turgor normal, no suspicious rashes or lesions. Thin red macular streak across the lateral upper left thigh. Tender to touch. Head: Normocephalic, no masses, lesions, tenderness or abnormalities. Eye (more content not included)... [facility] 04-12-2023 History of Present illness Narrative This is a 27 year old male who presents today with: Patient presents with: Recheck: Rash on left upper thigh x1 week; not getting any better HISTORY OF PRESENT ILLNESS: Levy Todd is a 27 year old male. Patient presents with: Recheck: Rash on left upper thigh x1 week; not getting any better Pt presents today with rash on the left upper thigh. Been present for 1 week and 1 day. + itch. + hurt. No blisters. Unsure if it has changed at all. He did recently have bronchitis for 6 weeks. Was in urgent care on 04/06 with the rash. Thought that it may have been a reaction to a rented tux. Was given voltaren gel and lidocaine. PAST MEDICAL HISTORY: PAST MEDICAL HISTORY Diagnosis [...] [Divalproex], Phenobarbital, and Ritalin [Methylphenidate Hcl] MEDICATIONS Current Outpatient Medications Medication Sig budesonide (PULMICORT FLEXHALER) 90 mcg/actuation aepb Inhale 2 Puffs as instructed two times a day. diclofenac (VOLTAREN ARTHRITIS PAIN) 1 % topical gel Apply 2 g to affected area four times daily. lidocaine (LIDODERM) 5 % Apply 1 Patch as directed every 12 hours. Remove old patch prior to placing new patch. Location: left leg urea (CARMOL) 40 % Apply to affected area once daily. benzonatate (TESSALON PERLES) 100 mg capsule Take 2 capsules by mouth three times a day as needed for cough. dicyclomine (BENTYL) 10 mg capsule Take 1 capsule by mouth before meals and at bedtime. omeprazole (PRILOSEC) 40 mg capsule Take 1 capsule by mouth once daily. fluticasone (FLONASE) 50 mcg/actuation nasal spray Use 2 Sprays in each nostril once daily. Rinse mouth after use. albuterol HFA (PROAIR HFA) 90 mcg/actuation inhaler [...] intramuscularly every 4 weeks. Every three months No current facility-administered medications for this visit. FAMILY HISTORY Problem Relation Age of Onset [...] Never used Substance Use Topics Alcohol use: Never Drug use: Never EXAM: BP 122/74 Pulse 107 Resp 16 SpO2 95% PHYSICAL EXAM: General Appearance: Well appearing, alert, in no acute distress, well-hydrated, well nourished.. Skin: Skin color, texture, turgor normal, no suspicious rashes or lesions. Thin red macular streak across the lateral upper left thigh. Tender to touch. Head: Normocephalic, no masses, lesions, tenderness or abnormalities. Eyes: Anicteric sclera. Extraocular movements are intact. . Neurologic: Gait normal. ASSESSMENT/PLAN: 1. Dermatitis - ICD9: 692.9, ICD10: L30.9 Pt reports discomfort and itch at the area. Will start triamcinolone. Does not appear vesicular/herpetic in nature at this time. - TRIAMCINOLONE ACETONIDE 0.1 % TOPICAL OINTMENT Discussed treatment plan and patient voices understanding. Patient's questions answered appropriately. Medications and potential side effects were discussed and patient voices understanding. Return to the office as scheduled or as needed for worsening/no improvement. Francy Mittal APRN.CASTRO documented in this encounter [facility] 04-06-2023 Note HNO ID: [id number] Author: WOO VARGAS APRN.CNP Service: ? Author Type: Nurse Practitioner Type: Progress Notes Filed: 04/06/2023 17:47 Note Text: Subjective HPI HPI Levy Todd is a 27 year old male who presents today for CC of left leg pain/skin irritation. This started 1 day ago. Has tried nothing for relief. Symptoms are worsened by nothing. Risk factors wearing new/rented tux. Denies fall/injury/scrape. .Patient presents with: Left leg swelling: With redness AND warm to touch x 1 day PAST MEDICAL HISTORY Diagnosis Date Acute cholecystitis [...] [Divalproex], Phenobarbital, and Ritalin [Methylphenidate Hcl] MEDICATIONS budesonide (PULMICORT FLEXHALER) 90 mcg/actuation aepb Inhale 2 Puffs as instructed two times a day. urea (CARMOL) 40 % Apply to affected area once daily. dicyclomine (BENTYL) 10 mg capsule Take 1 capsule by mouth before meals and at bedtime. omeprazole (PRILOSEC) 40 mg capsule Take 1 capsule by mouth once daily. fluticasone (FLONASE) 50 mcg/actuation nasal spray Use 2 Sprays in each nostril once daily. Rinse mouth after use. albuterol HFA (PROAIR HFA) 90 mcg/actuation inhaler [...] intramuscularly every 4 weeks. Every three months benzonatate (TESSALON PERLES) 100 mg capsule Take 2 capsules by mouth three times a day as needed for cough. (Patient not taking: Reported on 04/06/2023) FAMILY HISTORY Problem Relation Age of Onset [...] Never used Substance Use Topics Alcohol use: Never Drug use: Never Review of Systems Constitutional: Negative for fever. Musculoskeletal: Negative for myalgias. Skin: Positive for rash. Negative for itching. Objective Blood pressure 112/82, pulse 109, temperature 37 ?C (98.6 ?F), temperature source Right Tympanic, resp. rate 16, weight (!) 142.5 kg (314 lb 3.2 oz), SpO2 95%. Physical Exam Constitutional: General: He is not in acute distress. Appearance: He is not toxic-appearing or diaphoretic. HENT: Head: Normocephalic and atraumatic. Pulmonary: Effort: Pulmonary effort is normal. No accessory muscle usage or respiratory distress. Skin: Neurological: Mental Status: He is alert and oriented to person, place, and time. ASSESSMENT/PLAN: 1. Skin irritation - ICD9: 709.9, ICD10: R23.8 Unclear etiology, possibly reaction to material of tux -use medication as prescribed -follow up if symptoms persist, worsen, change - with pcp - DICLOFENAC 1 % TOPICAL GEL - LIDOCAINE 5 % TOPICAL PATCH Woo Vargas APRN.TRANSITION SOCIAL WORKER [facility] 04-06-2023 History of Present illness Narrative Images from the original note were not included. Subjective HPI HPI Levy Todd is a 27 year old male who presents today for CC of left leg pain/skin irritation. This started 1 day ago. Has tried nothing for relief. Symptoms are worsened by nothing. Risk factors wearing new/rented tux. Denies fall/injury/scrape. .Patient presents with: Left leg swelling: With redness & warm to touch x 1 day PAST MEDICAL HISTORY Diagnosis Date Acute cholecystitis [...] [Divalproex], Phenobarbital, and Ritalin [Methylphenidate Hcl] MEDICATIONS budesonide (PULMICORT FLEXHALER) 90 mcg/actuation aepb Inhale 2 Puffs as instructed two times a day. urea (CARMOL) 40 % Apply to affected area once daily. dicyclomine (BENTYL) 10 mg capsule Take 1 capsule by mouth before meals and at bedtime. omeprazole (PRILOSEC) 40 mg capsule Take 1 capsule by mouth once daily. fluticasone (FLONASE) 50 mcg/actuation nasal spray Use 2 Sprays in each nostril once daily. Rinse mouth after use. albuterol HFA (PROAIR HFA) 90 mcg/actuation inhaler [...] intramuscularly every 4 weeks. Every three months benzonatate (TESSALON PERLES) 100 mg capsule Take 2 capsules by mouth three times a day as needed for cough. (Patient not taking: Reported on 04/06/2023) FAMILY HISTORY Problem Relation Age of Onset [...] Never used Substance Use Topics Alcohol use: Never Drug use: Never Review of Systems Constitutional: Negative for fever. Musculoskeletal: Negative for myalgias. Skin: Positive for rash. Negative for itching. Objective Blood pressure 112/82, pulse 109, temperature 37 C (98.6 F), temperature source Right Tympanic, resp. rate 16, weight (!) 142.5 kg (314 lb 3.2 oz), SpO2 95%. Physical Exam Constitutional: General: He is not in acute distress. Appearance: He is not toxic-appearing or diaphoretic. HENT: Head: Normocephalic and atraumatic. Pulmonary: Effort: Pulmonary effort is normal. No accessory muscle usage or respiratory distress. Skin: Neurological: Mental Status: He is alert and oriented to person, place, and time. ASSESSMENT/PLAN: 1. Skin irritation - ICD9: 709.9, ICD10: R23.8 Unclear etiology, possibly reaction to material of tux -use medication as prescribed -follow up if symptoms persist, worsen, change - with pcp - DICLOFENAC 1 % TOPICAL GEL - LIDOCAINE 5 % TOPICAL PATCH Woo Vargas APRN.TRANSITION SOCIAL WORKER documented in this encounter [facility] 04-06-2023 Miscellaneous Notes No response on the PA for the fluticasone(flovent) from 03/22/23. Called the pharmacy and they report pt did not pick this up PA is still required. Pharmacy says looks like formulary is Pulmicort. Reviewed with pts mother. She would like the formulary. Pt is better but still with coughing and some wheezing. Prior Authorization has been completed online at [employer] for Fluticasone, will await response. CARRILLO- [id number] Please keep encounter open until final decision has been received and documented from insurance company. Claudia Foster LPN documented in this encounter [facility] 03-31-2023 Note HNO ID: [id number] Author: JERRY GUADARRAMA APRN.TRANSITION SOCIAL WORKER Service: ? Author Type: Nurse Practitioner Type: Progress Notes Filed: 03/31/2023 17:32 Note Text: Subjective HPI Nontoxic-appearing male presents urgent care accompanied by mother. Chief complaint cough chest congestion. Duration of symptoms 4 weeks. Associated symptoms cough chest congestion. Was seen by PCP chest x-ray negative. Placed on prednisone and Flovent. Feels like prednisone helped. States cough was getting better then worsened again. Mica like cough is worsened over the last 2 days. Has became productive. Denies any fever body aches chills chest pain shortness of breath pleuritic pain hemoptysis nausea vomiting abdominal pain change in bowel or bladder habits. Past medical history prescription medication use and allergies reviewed. .Patient presents with: Cough: Cough x 4 weeks PAST MEDICAL HISTORY Diagnosis Date Acute cholecystitis [...] [Divalproex], Phenobarbital, and Ritalin [Methylphenidate Hcl] MEDICATIONS urea (CARMOL) 40 % Apply to affected area once daily. fluticasone (FLOVENT HFA) 44 mcg/actuation inhaler Inhale 1 Puff as instructed two times a day. Shake well before use. Rinse mouth after use. benzonatate (TESSALON PERLES) 100 mg capsule Take 2 capsules by mouth three times a day as needed for cough. dicyclomine (BENTYL) 10 mg capsule Take 1 capsule by mouth before meals and at bedtime. omeprazole (PRILOSEC) 40 mg capsule Take 1 capsule by mouth once daily. fluticasone (FLONASE) 50 mcg/actuation nasal spray Use 2 Sprays in each nostril once daily. Rinse mouth after use. albuterol HFA (PROAIR HFA) 90 mcg/actuation inhaler [...] intramuscularly every 4 weeks. Every three months FAMILY HISTORY Problem Relation Age of Onset [...] Never used Substance Use Topics Alcohol use: Never Drug use: Never BP 118/80 Pulse 98 Temp 36.5 ?C (97.7 ?F) (Tympanic) Resp 16 Wt (!) 141.1 kg (311 lb) SpO2 96% BMI 43.54 kg/m? Review of Systems Constitutional: Negative for chills, fever and malaise/fatigue. HENT: Negative for congestion, ear discharge, ear pain, sinus pain and sore throat. Eyes: Negative for blurred vision, pain, discharge and redness. Respiratory: Positive for cough and sputum production. Negative for hemoptysis, shortness of breath, wheezing and stridor. Cardiovascular: Negative for chest pain. Gastrointestinal: Negative for abdominal pain, diarrhea, nausea and vomiting. Musculoskeletal: Negative for myalgias. (more content not included)... [facility] 03-29-2023 Note HNO ID: [id number] Author: FERN YAÑEZ, ? Service: ? Author Type: Physician Type: Progress Notes Filed: 03/29/2023 15:16 Note Text: Chief Complaint: This 27 year old male who presents with chief complaint:painful callus of b/l heels HPI Patient presents to clinic for evaluation of b/l feet Complains of painful callus of b/l heels Has not tried any creams, lotion Mother has tried pummice stone but patient does not feel that helps. PAIN EVALUATION 03/28/2023 1338 Pain Level: 7 Pain Location: Foot-Right Description: Pulsating;Sore;Throbbing Duration Amount of Time: 3 Duration Units: Weeks Frequency: Continuous Intervention/Comfort measure: Medication;Cold;Distractions No results found for: HBA1C PCP: Rich [...] 2015 Current Outpatient Medications Medication Sig fluticasone (FLOVENT HFA) 44 mcg/actuation inhaler Inhale 1 Puff as instructed two times a day. Shake well before use. Rinse mouth after use. benzonatate (TESSALON PERLES) 100 mg capsule Take 2 capsules by mouth three times a day as needed for cough. dicyclomine (BENTYL) 10 mg capsule Take 1 capsule by mouth before meals and at bedtime. omeprazole (PRILOSEC) 40 mg capsule Take 1 capsule by mouth once daily. fluticasone (FLONASE) 50 mcg/actuation nasal spray Use 2 Sprays in each nostril once daily. Rinse mouth after use. albuterol HFA (PROAIR HFA) 90 mcg/actuation inhaler [...] intramuscularly every 4 weeks. Every three months No current facility-administered medications for this visit. [...] Never used Substance Use Topics Alcohol use: Never Drug use: Never REVIEW OF SYSTEMS GENERAL: Negative for Malaise, [...] ENDOCRINE: Negative for cold or heat intolerance, p (more content not included)... [facility] 03-29-2023 Note HNO ID: [id number] Author: NADIA EATON LPN Service: ? Author Type: LICENSED NURSE Type: Progress Notes Filed: 03/29/2023 15:16 Note Text: AMB ROOMING INTAKE FLOWSHEET DATA Pain Pain Level: 7 Pain Location: Foot-Right Description: Pulsating, Sore, Throbbing Duration Amount of Time: 3 Duration Units: Weeks Frequency: Continuous Intervention/Comfort measure: Medication, Cold, Distractions Patient presents with: Left Foot - Established Patient, Callous Right Foot - Established Patient, Callous, Pain Nadia Eaton LPN [facility] 03-22-2023 Note HNO ID: [id number] Author: LAMONTE GUILLEN RT(R) Service: ? Author Type: Java Designer Type: Progress Notes Filed: 03/22/2023 15:28 Note Text: Radiology Service Progress Note PATIENT NAME: Levy Todd DATE OF SERVICE: March 22, 2023 TIME: 3:17 PM PATIENT IDENTITY VERIFICATION COMPLETED USING TWO [...] DATA: Not applicable SIGNED BY: RT Annette(R) March 22, 2023 3:17 PM [facility] 03-22-2023 Note HNO ID: [id number] Author: Enriqueta GRAHAM PA-C Service: ? Author Type: Physician Coater Type: Progress Notes Filed: 03/26/2023 14:16 Note Text: 27 year old male with mother, known hx subclass 3+4 immunodeficiencies, asthma c/o with hx bronchitis persistent symptoms Did better on prednisone No fever, chills. Heart rate has been going up, drinks Mt Dew Chest hurts with cough. Had a little diarrhea Has been lying around during day, sleeping 3h a day. HISTORIES FAMILY HISTORY Problem Relation Age of [...] Never used Substance Use Topics Alcohol use: Never Drug use: Never ACTIVE PROBLEM LIST Other Selective Immunoglobulin Deficiencies Pmh - Past Medical History of Attention deficit hyperactivity disorder (ADHD) Psychogenic Nonepileptic Seizure Asperger's Syndrome Morbid Obesity (Hcc) Gerd (Gastroesophageal Reflux Disease) Mild Intermittent Asthma Without Complication Neck Pain Contusion of Right Knee Partial Agenesis of Corpus Callosum (Hcc) Schizoaffective Disorder, Bipolar Type (Hcc) Obesity, Class III, BMI >= 40 Current Outpatient Medications Medication Sig Dispense Refill benzonatate (TESSALON PERLES) 100 mg capsule Take 2 capsules by mouth three times a day as needed for cough. 30 capsule 0 dicyclomine (BENTYL) 10 mg capsule Take 1 capsule by mouth before meals and at bedtime. 120 capsule 2 clotrimazole-betamethasone (LOTRISONE) cream Apply to affected area two times a day for 14 days. 30 g 0 omeprazole (PRILOSEC) 40 mg capsule Take 1 capsule by mouth once daily. 30 capsule 2 fluticasone (FLONASE) 50 mcg/actuation nasal spray Use 2 Sprays in each nostril once daily. Rinse mouth after use. 16 g 0 albuterol HFA (PROAIR HFA) 90 mcg/actuation inhaler Inhale 2 Puffs as instructed every 6 hours as needed. 18 g 0 benztropine (COGENTIN) 0.5 mg tablet Take [...] 4 hours as needed. 18 g 5 INVEGA SUSTENNA 234 mg/1.5 mL syrg Inject 234 Units intramuscularly every 4 weeks. Every three months No current facility-administered medications for this visit. Pneumococcal Vaccine(1 of 2 - PCV) due on 09/23/1999 Spirometry Never done Influenza Vaccine(1) due on 10/29/2022 Covid-19 Vaccine(2022- season) due on 10/29/2022 Depression Assessment Never done EXAM: BP 124/78 Pulse 107 Temp 36.8 ?C (98.2 ?F) (Left Tympanic) Resp 20 Wt (!) 140.2 kg (309 lb) SpO2 96% BMI 43.26 kg/m? Pleasant obese adult male with developmental disability in no acute distress. Alert and oriented all spheres. Normal affect and cognition. Speech normal. No deficits to learning or comprehension. Skin warm, dry, pink to lips and nailbeds. Normal turgor. (more content not included)... [facility] 03-14-2023 Note HNO ID: [id number] Author: Enriqueta GRAHAM PA-C Service: ? Author Type: Physician Coater Type: Progress Notes Filed: 03/14/2023 20:27 Note Text: 27 year old male with c/o wellness visit Current concerns: 10/11/[address]22 RD visit Colds sx x 1 week, no fever, frequent cough with phlegm. Chest hurt with cough. One day had some wheezing. Feels sx have bee about the same of the week. Has diarrhea following choly. 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 No friends outside family Compliant with meds Mild intermittent asthma without complication Current medications: Flovent 110mcg 2 inh daily as needed Compliant with meds during allergy season. No rescue inhaler. Gastroesophageal reflux disease, unspecified whether esophagitis present Current medications: Omeprazole 40mg daily No heart burn, acid refulx, trouble with bowels. Morbid obesity (hcc) Vitals 10/20/2022 12/06/2022 03/14/2023 WEIGHT in POUNDS 311 lb 9.6 oz 316 lb 307 lb WEIGHT in KILOGRAMS 141.341 kg 143.337 kg 139.254 kg HISTORIES FAMILY HISTORY Problem Relation Age of [...] Never used Substance Use Topics Alcohol use: Never Drug use: Never ACTIVE PROBLEM LIST Other Selective Immunoglobulin Deficiencies [facility] - Past Medical History of Attention deficit hyperactivity disorder (ADHD) Pseudoseizure Asperger's Syndrome Morbid Obesity (Hcc) Gerd (Gastroesophageal Reflux Disease) Mild Intermittent Asthma Without Complication Neck Pain Contusion of Right Knee Partial Agenesis of Corpus Callosum (Hcc) Current Outpatient Medications Medication Sig Dispense Refill dicyclomine (BENTYL) 10 mg capsule Take 1 capsule by mouth before meals and at bedtime. 120 capsule 0 fluticasone (FLONASE) 50 mcg/actuation nasal spray Use 2 Sprays in each nostril once daily. Rinse mouth after use. 16 g 0 omeprazole (PRILOSEC) 40 mg capsule Take 1 capsule by mouth once daily. 28 capsule 5 meloxicam (MOBIC) 7.5 mg tablet Take 1 tablet by mouth once daily. Take with food. (Patient not taking: Reported on 11/03/2022) 10 tablet 0 benzonatate (TESSALON PERLES) 100 mg capsule Take 2 capsules by mouth three times daily as needed for cough. (Patient not taking: Reported on 01/03/2023) 30 capsule 0 albuterol HFA (PROAIR HFA) 90 mcg/actuation inhaler Inhale 2 Puffs as instructed every 6 hours as needed. 18 g 0 benztropine (COGENTIN) 0.5 mg tablet Take [...] ondansetron orally disintegrating (ZOFRAN ODT) 4 mg (more content not included)... [facility] 01-03-2023 Note HNO ID: [id number] Author: Nadia Eaton LPN Service: ? Author [...] equipment. Replacement cost will be handled through [employer]. Nadia Eaton LPN [facility] 01-03-2023 Note HNO ID: [id number] Author: Fern Yañez Service: ? Author Type: [...] Pseudoseizure 2014 Current Outpatient Medications Medication Sig dicyclomine (BENTYL) [...] eversion. Past x (more content not included)... [facility] 01-03-2023 Note HNO ID: [id number] Author: Ashleigh Hays RN Service: ? Author [...] pain is worse than it had been. [facility] 01-03-2023 History of Present illness Narrative Per Dr. Yañez, Levy was provided with replacement Aircast, size L, and instructed/educated in its application, wear, and care. All questions were answered, and patient was able to demonstrate competence with the necessary skills to utilize the above equipment. Replacement cost will be handled through [employer]. Nadia Eaton LPN Images from the original note were not [...] it had been. documented in this encounter [facility] 01-03-2023 Instructions Fern Yañez - 01/03/2023 2:49 PM EST Transition to shoe Tylenol twice daily Ice foot in cold water bath tub x 10 minutes twice daily If pain fails to improve within the next 2-3 weeks, return to boot and call Dr. Yañez documented in this encounter [facility] 12-28-2022 Miscellaneous Notes Patient has been [...] Kely Cerna LPN. documented in this encounter [facility] 12-17-2022 Note HNO ID: [id number] Author: Lamonte Guillen RT(R) Service: ? Author Type: Java Designer Type: Progress Notes Filed: 12/17/2022 2:46 PM [...] RT Annette(R) December 17, 2022 2:24 PM [facility] 12-17-2022 Note HNO ID: [id number] Author: Ashleigh Hays RN Service: ? Author Type: Registered Nurse Type: Progress Notes Filed: 12/17/2022 3:30 PM Note Text: Per Dr. Yañez, Levy was provided with Pneumatic walking boot, size Large, and instructed/educated in its application, wear, and care. All questions were answered, and patient was able to demonstrate competence with the necessary skills to utilize the above equipment. Patient signed DJO Patient agreement. [employer] to bill patient's insurance for product. Ashleigh Hays RN [facility] 12-17-2022 Note HNO ID: [id number] Author: Fern Yañez Service: ? Author Type: [...] Pseudoseizure 2014 Current Outpatient Medications Medication Sig fluticasone (FLONASE) [...] in right darden (more content not included)... [facility] 12-17-2022 Note HNO ID: [id number] Author: Izzy Goode LPN Service: ? Author Type: ? Type: Progress Notes Filed: 12/17/2022 3:30 PM Note Text: Patient presents with: Right Ankle - Established Patient, Pain Right Foot - Pain, Established Patient Previously seen for pain in right toe but presents today for pain in right ankle and right foot. Patient denies pain in right toe today. Izzy Goode LPN [facility] 12-17-2022 History of Present illness Narrative Per [...] 1339 Pain Level: 8 right foot pain /10 Pain Location: Ankle-Right right foot Description: Sharp [...] Pseudoseizure 2014 Current Outpatient Medications Medication Sig fluticasone (FLONASE) [...] Izzy Goode LPN documented in this encounter [facility] 12-09-2022 Miscellaneous Notes Patient is schedule [...] Izzy Goode LPN documented in this encounter [facility] 12-09-2022 Miscellaneous Notes Mother returned call [...] 03. This is in regard to the [employer] message from 11/06. Explained that provider is going to be out of the office for a few days but we would see if there was any place he could be worked in. Sending to [facility] nurses. Kimmie Patton MA documented in this encounter [facility] 12-06-2022 Note HNO ID: [id number] Author: Jatin Brown MD Service: ? Author [...] - AMBULATORY EAR LAVAGE/IRRIGATION Jatin Brown MD [facility] 12-06-2022 Nurse Note Ambulatory Ear Lavage Pre-treatment: Warm water Treatment: Both ears Equipment and Irrigation solution and Volume used: Single use syringe with single use irrigation tip Water Return flow appearance: Brown Yellow Patient tolerated procedure: yes Tympanic membrane assessment: Tympanic membrane assessed by LIP pre and post procedure Abby Rosen documented in this encounter [facility] 12-06-2022 History of Present illness Narrative [...] Jatin Brown MD documented in this encounter [facility] 12-03-2022 Miscellaneous Notes Patient has been [...] Belen Doan LPN documented in this encounter [facility] 11-03-2022 Note HNO ID: [id number] Author: Daniel Vaz RT(R) Service: ? Author [...] RT Lea(R) November 03, 2022 4:15 PM [facility] 11-03-2022 Note HNO ID: [id number] Author: Fern Yañez Service: ? Author Type: [...] to the tip Patient recently [facility] and had xrays done. No fracture. Was [...] Pseudoseizure 2015 Current Outpatient Medications Medication Sig benzonatate (TESSALON [...] shortness of breat (more content not included)... [facility] 11-03-2022 Note HNO ID: [id number] Author: Nadia Eaton LPN Service: ? Author [...] to office with mother. Nadia Eaton LPN [facility] 11-03-2022 History of Present illness Narrative Radiology [...] RT Lea(R) November 03, 2022 4:15 PM documented in this encounter [facility] 11-03-2022 History of Present illness Narrative [...] to the tip Patient recently went to [facility] and had xrays done. No fracture. Was [...] Nadia Eaton LPN documented in this encounter [facility] 10-20-2022 Note HNO ID: [id number] Author: Rich Quick MD Service: ? Author [...] teeth and gums (more content not included)... [facility] 10-20-2022 Nurse Note Ambulatory Ear Lavage Pre-treatment: Warm water Treatment: Right ear Equipment and Irrigation solution and Volume used: Single use syringe with single use irrigation tip Return flow appearance: Yellow Other with large amount of brown solid pieces Patient tolerated procedure: yes Tympanic membrane assessment: Tympanic membrane assessed by LIP pre and post procedure documented in this encounter [facility] 10-20-2022 Instructions Rich Quick MD - 10/20/2022 5:03 PM EDT Debrox can be used to flush ears at home. documented in this encounter [facility] 10-20-2022 History of Present illness Narrative [...] Rich Quick MD documented in this encounter [facility] 10-13-2022 Note HNO ID: [id number] Author: Rich Quick MD Service: ? Author Type: Physician Type: Progress Notes Filed: 10/13/2022 4:56 PM Note Text: Patient presents with: ER F/U HPI: Patient presents today for office visit for follow up. HOSPITAL/ER FOLLOW UP: Reason for visit: right great toe pain-no injury was in bed when it locked up Which facility: [facility] Date of visit: 10/11/22 Diagnosis: toe pain [...] Musculoskeletal: no abnormali (more content not included)... [facility] 10-13-2022 History of Present illness Narrative Patient presents with: ER F/U HPI: Patient presents today for office visit for follow up. HOSPITAL/ER FOLLOW UP: Reason for visit: right great toe pain-no injury was in bed when it locked up Which facility: [facility] Date of visit: 10/11/22 Diagnosis: toe pain [...] Rich Quick MD documented in this encounter [facility] 10-01-2022 Note HNO ID: [id number] Author: Enriqueta Graham PA-C Service: ? Author Type: Physician Coater Type: Progress Notes Filed: 10/01/2022 9:12 AM [...] Extrem: no clubbing (more content not included)... [facility] 09-13-2022 Note HNO ID: [id number] Author: Rich Quick MD Service: ? Author [...] kg (309 lb) (more content not included)... [facility] 09-13-2022 History of Present illness Narrative Patient presents [...] Rich Quick MD documented in this encounter [facility] 09-03-2022 Note HNO ID: [id number] Author: RT Santiago(R) Service: Radiology Author Type: [...] RT Santiago(R) September 03, 2022 4:42 PM [facility] 09-03-2022 Note HNO ID: [id number] Author: Rich Quick MD Service: ? Author Type: Physician Type: Progress Notes Filed: 09/04/2022 8:43 AM Note Text: Patient presents with: Cough HPI: Patient presents today for office visit for [facility] follow up. Was seen in [facility] on 08/31/22 for cough. Per mom [...] kg (318 lb) (more content not included)... [facility] 09-03-2022 History of Present illness Narrative Patient presents with: Cough HPI: Patient presents [facility] Was seen in [facility] on 08/31/22 for cough. Per mom cough [...] Rich Quick MD documented in this encounter [facility] 09-03-2022 Miscellaneous Notes Pt's mother Dacia [...] Danika Johnson RN documented in this encounter [facility] 09-02-2022 Miscellaneous Notes Letter sent to mom. She needed letter stating just what is ordered from Dr Quick and when to take it. Levy is going to stay somewhere else for awhile and in order for them to give him the medications she needs the letter. Asking to have sent to [facility]. Patient's mother calls and is asking for a list of patient's medications as well as when medications should be given. Please review and advise, Carey Cervantes RN documented in this encounter [facility] 08-31-2022 Note HNO ID: [id number] Author: Jerry Guadarrama APRN.TRANSITION SOCIAL WORKER Service: ? Author Type: Nurse Practitioner Type: [...] known sick contacts. He has been using pyib-amv-foovksn cough suppressants with little success. Has a [...] diarrhea, nausea and (more content not included)... [facility] 08-19-2022 Note HNO ID: [id number] Author: SAGRARIO Francois Service: ? Author Type: Physician Coater Type: Progress Notes Filed: 08/19/2022 10:44 AM Note Text: This note was created using Viibarriter. Subjective Levy Todd is a 26 year [...] Normal breath sound (more content not included)... [facility] 08-19-2022 History of Present illness Narrative This note was created using Viibarriter. Subjective Levy Todd is a 26 year [...] evaluation. SAGRARIO Francois documented in this encounter [facility] 08-17-2022 Note HNO ID: [id number] Author: SAGRARIO Francois Service: ? Author Type: Physician Coater Type: Progress Notes Filed: 08/17/2022 2:30 PM Note Text: This note was created using Viibarriter. Subjective Levy Todd is a 26 year [...] - Alere S (more content not included)... [facility] 08-17-2022 History of Present illness Narrative This note was created using Viibarriter. Subjective Levy Todd is a 26 year [...] evaluation. SAGRARIO Francois documented in this encounter [facility] 07-27-2022 Miscellaneous Notes Mother calls for [...] Xochilt Quick LPN documented in this encounter [facility] 07-02-2022 Note HNO ID: [id number] Author: RT Santiago(Tomy) Service: Radiology Author Type: Technologist Type: Progress [...] RT Santiago(R) July 02, 2022 3:20 PM [facility] 07-02-2022 Miscellaneous Notes Phone call placed spoke [...] is not changing documented in this encounter [facility] 07-01-2022 Note HNO ID: [id number] Author: Rich Quick MD Service: ? Author [...] Abs Lymph 1.00 - 4.00 k/uL 2.72 [place]% % 7.2 Abs [place] <0.87 k/uL 0.54 Eosin% % 0.0 Abs [...] Negative Ketones, Urine Trace, Negative Negative Specific [place], Ur 1.005 - 1.030 1.010 Hemoglobin/Blood,Ur Negative, Trace Negative pH, Urine 5.0 - 8.0 6.5 Protein, Urine Trace, Negative Negative Urobilinogen Negative Negative Nitrites Negative Negative Leukest Negative, 25 Sandra/uL 25 Sandra/uL WBC, Urine 0-5 /HPF 0-5 /HPF RBC, Urine 0-3 /HPF 0-3 /HPF Epithelial Cells /HPF Few Lipase 16 - 61 U/L 15 (L) [place] 0.6 - 1.2 mmol/L 0.4 (L) Culture [...] 3 AND 4 (more content not included)... [facility] 07-01-2022 History of Present illness Narrative Patient [...] Abs Lymph 1.00 - 4.00 k/uL 2.72 [place]% % 7.2 Abs [place] <0.87 k/uL 0.54 Eosin% % 0.0 Abs [...] Negative Ketones, Urine Trace, Negative Negative Specific [place], Ur 1.005 - 1.030 1.010 Hemoglobin/Blood,Ur Negative, Trace Negative pH, Urine 5.0 - 8.0 6.5 Protein, Urine Trace, Negative Negative Urobilinogen Negative Negative Nitrites Negative Negative Leukest Negative, 25 Sandra/uL 25 Sandra/uL WBC, Urine 0-5 /HPF 0-5 /HPF RBC, Urine 0-3 /HPF 0-3 /HPF Epithelial Cells /HPF Few Lipase 16 - 61 U/L 15 (L) [place] 0.6 - 1.2 mmol/L 0.4 (L) Culture [...] Rich Mirza MD documented in this encounter [facility] 07-01-2022 Miscellaneous Notes Faxed as requested. Can we fax his labs to his psychiatrist? We did his lithium level. He is coming in for recheck this week to see me documented in this encounter [facility] 07-01-2022 Miscellaneous Notes Faxed as requested. MARTHA Marti in [place] [employer] office@ [facility] calling for Varina level lab result. Advised lab is still in process. She is requesting lab result be faxed to when available. Luz Elena Lyons RN documented in this encounter [facility] 06-29-2022 Note HNO ID: [id number] Author: Yi Arredondo RT(R) Service: Radiology Author [...] RT Santiago(R) June 29, 2022 5:01 PM [facility] 06-29-2022 Note HNO ID: [id number] Author: Rich Quick MD Service: ? Author [...] rubs. No e (more content not included)... [facility] 06-29-2022 History of Present illness Narrative Patient [...] Rich Quick MD documented in this encounter [facility] 03-25-2022 Miscellaneous Notes Left message for patient with negative results and recommendations.Keesha Brown LPN ----- Message from Michelle Wang APRN.TRANSITION SOCIAL WORKER sent at 03/25/2022 2:43 PM EST ----- Please advise patient the urine culture was negative (no sign of infection). He should follow up with urology as advised at the visit. documented in this encounter [facility] 03-24-2022 History of Present illness Narrative Patient [...] Jatin Brown MD documented in this encounter [facility] 02-01-2022 Instructions Francy Mittal APRN.TRANSITION SOCIAL WORKER - 02/01/2022 4:31 PM EST FACT SHEET FOR PATIENTS, PARENTS, AND CAREGIVERS EMERGENCY USE AUTHORIZATION (EUA) OF PAXLOVID FOR CORONAVIRUS DISEASE 2019 (COVID-19) You are being given this Fact Sheet because your healthcare provider believes it is necessary to provide you with PAXLOVID for the treatment of qxzu-go-jimvprio coronavirus disease (COVID-19) caused by the SARS-CoV-2 [...] virus. COVID-19 illnesses have ranged from very nagr-eg-ishfkt, including illness resulting in . While information [...] is an investigational medicine used to treat rqho-tc-gzufjhaz COVID-19 in adults and children [12 years [...] of using PAXLOVID to treat people with giru-mm-xesotebj COVID-19. The FDA has authorized the emergency use of PAXLOVID for the treatment of hynj-rg-dexszski COVID-19 in adults and children [12 years [...] the medicines you take, including prescription and yjqt-xkw-sqkcfec medicines, vitamins, and herbal supplements. Some medicines [...] oral midazolam Apalutamide Carbamazepine, phenobarbital, phenytoin Rifampin [place] s Wort (hypericum perforatum) Taking PAXLOVID with [...] (remdesivir) is FDA-approved for the treatment of fhri-ug-bgrnafvz COVID-19 in certain adults and children. Talk with your doctor to see if Veklury is appropriate for you. Like PAXLOVID, FDA may also allow for the emergency use of other medicines to treat people with COVID-19. Go to https://www.fda.gov/emergency-pre paredness-andresponse/mcm-legal-r arbcfprpi-bjb-tibqxg-framework/em ddnkchc-ywe-swcdftdcidwhd for information on the emergency use of [...] if I am or ? There is director of digital technology treating women or mothers with PAXLOVID. For [...] not go away. Report side effects to FDA MedWatch at www.fda.gov/medwatch or call 9-533-IXO7050 or you can report side effects to [employer]. at the contact information provided below. Website Fax number Telephone number [employer] How should I store PAXLOVID? Store PAXLOVID [...] (EUA). The EUA is supported by a [place] of Health and Human Service (HHS) declaration that circumstances exist to justify the emergency use of drugs and biological products during the COVID-19 pandemic. PAXLOVID for the treatment of xzbm-cv-xiyyvkka COVID-19 in adults and children [12 years [...] telephone number provided below. Website Telephone number www.[employer] (5-286-C65-PACK) You can also go to www.[employer].Spartz or call for more information. [employer] Distributed by [employer] [place] [address] [id number] Revised: 15 May 2021 documented in this encounter [facility] 02-01-2022 History of Present illness Narrative [...] agrees to the visit: Yes Patient Location: [facility] Levy Todd is a 26 year old [...] improvement. Nirmatrelvir/Ritonavir (Paxlovid) Eligibility and Patient Discussion [facility] Formulary Restriction Criteria: Adult outpatients 18 [...] 2022 4:34 PM documented in this encounter [facility] 01-08-2022 Miscellaneous Notes Last Office Visit: 02/23/2021 Future Office Visit: None Requested Prescriptions Pending Prescriptions Disp Refills omeprazole (PRILOSEC) 40 mg capsule 28 capsule 5 Sig: Take 1 capsule by mouth once daily. Date of Last Labs: 12/23/2020 documented in this encounter [facility] 05-25-2021 History of Present illness Narrative [...] Jatin Brown MD documented in this encounter [facility] 01-26-2021 Note HNO ID: [id number] Author: Anthony Fletcher APRN.CRNA Service: Anesthesiology Author Type: Nurse Boat Dock Operator Type: Anesthesia Procedure Notes Filed: 01/26/2021 2:58 PM Note Text: ANESTHESIOLOGY PROCEDURE NOTE Airway General Information Procedure Start Time/Medication Administration: 01/26/2021 2:39 PM Procedure End Time: 01/26/2021 2:43 PM Patient location during procedure: OR Timeout Performed Pre-procedure: timeout performed Consent Obtained: Yes Patient 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 confirmed: 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, 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 Staffing ORTHOPEDIC RADIOLOGIC TECHNOLOGIST: Anthony Fletcher APRN.CRNA Other anesthesia staff/rotator: Anthony Fletcher APRN.ORTHOPEDIC RADIOLOGIC TECHNOLOGIST Performed by: QUIQUE Indications and Patient Condition [...] January 26, 2021 TIME: 2:57 PM CSN: [id number] [facility] documented as of this encounter (statuses as of 05/25/2021) [facility] History of Past illness Narrative* Problem Noted Date Resolved Date 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 10/02/2015 Abdominal pain, epigastric 10/13/200610/01 Abdominal pain, generalized 10/13/200605/2015 Abnormality of gait 06/22/2005 10/02/2015 Exostosis of unspecified site 05/31/2005 Onychia and paronychia of toe 04/15/2005 Ingrowing nail 01/08/2005 10/02/2015 Pain in limb 01/08/2005 10/02/2015 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 documented as of this encounter (statuses as of 01/08/2022) [facility] History of Past illness Narrative* Problem [...] of this encounter (statuses as of 02/02/2022) [facility] History of Past illness Narrative* Problem [...] of this encounter (statuses as of 03/24/2022) [facility] History of Past illness Narrative* Problem [...] of this encounter (statuses as of 03/26/2022) [facility] History of Past illness Narrative* Problem Noted Date Resolved Date 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 10/02/2015 Abdominal pain, epigastric 10/13/200610/01 Abdominal pain, generalized 10/13/200605/2015 Abnormality of gait 06/22/2005 10/02/2015 Exostosis of unspecified site 05/31/2005 Onychia and paronychia of toe 04/15/2005 Ingrowing nail 01/08/2005 10/02/2015 Pain in limb 01/08/2005 10/02/2015 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 documented as of this encounter (statuses as of 06/30/2022) [facility] History of Past illness Narrative* Problem [...] of this encounter (statuses as of 07/01/2022) [facility] History of Past illness Narrative* Problem Noted Date Resolved Date 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 10/02/2015 Abdominal pain, epigastric 10/13/200610/01 Abdominal pain, generalized 10/13/200605/2015 Abnormality of gait 06/22/2005 10/02/2015 Exostosis of unspecified site 05/31/2005 Onychia and paronychia of toe 04/15/2005 Ingrowing nail 01/08/2005 10/02/2015 Pain in limb 01/08/2005 10/02/2015 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 documented as of this encounter (statuses as of 07/02/2022) [facility] History of Past illness Narrative* Problem Noted Date Resolved Date 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 10/02/2015 Abdominal pain, epigastric 10/13/200610/01 Abdominal pain, generalized 10/13/200605/2015 Abnormality of gait 06/22/2005 10/02/2015 Exostosis of unspecified site 05/31/2005 Onychia and paronychia of toe 04/15/2005 Ingrowing nail 01/08/2005 10/02/2015 Pain in limb 01/08/2005 10/02/2015 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 documented as of this encounter (statuses as of 07/03/2022) [facility] of Past illness Narrative* Problem Noted Date Resolved Date 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 10/02/2015 Abdominal pain, epigastric 10/13/200610/01 Abdominal pain, generalized 10/13/200605/2015 Abnormality of gait 06/22/2005 10/02/2015 Exostosis of unspecified site 05/31/2005 Onychia and paronychia of toe 04/15/2005 Ingrowing nail 01/08/2005 10/02/2015 Pain in limb 01/08/2005 10/02/2015 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 documented as of this encounter (statuses as of 07/27/2022) [facility] of Past illness Narrative* Problem Noted Date Resolved Date 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 10/02/2015 Abdominal pain, epigastric 10/13/200610/01 Abdominal pain, generalized 10/13/200605/2015 Abnormality of gait 06/22/2005 10/02/2015 Exostosis of unspecified site 05/31/2005 Onychia and paronychia of toe 04/15/2005 Ingrowing nail 01/08/2005 10/02/2015 Pain in limb 01/08/2005 10/02/2015 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 documented as of this encounter (statuses as of 08/18/2022) [facility] History of Past illness Narrative* Problem Noted Date Resolved Date 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 10/02/2015 Abdominal pain, epigastric 10/13/200610/01 Abdominal pain, generalized 10/13/200605/2015 Abnormality of gait 06/22/2005 10/02/2015 Exostosis of unspecified site 05/31/2005 Onychia and paronychia of toe 04/15/2005 Ingrowing nail 01/08/2005 10/02/2015 Pain in limb 01/08/2005 10/02/2015 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 documented as of this encounter (statuses as of 08/19/2022) [facility] History of Past illness Narrative* Problem Noted Date Resolved Date 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 10/02/2015 Abdominal pain, epigastric 10/13/200610/01 Abdominal pain, generalized 10/13/20060 05/2015 Abnormality of gait 06/22/2005 10/02/2015 Exostosis of unspecified site 05/31/2005 Onychia and paronychia of toe 04/15/2005 Ingrowing nail 01/08/2005 10/02/2015 Pain in limb 01/08/2005 10/02/2015 Convulsions in 08/04/201 6 Overview: GRAND MAL SEIZURES documented as of this encounter (statuses as of 09/03/2022) [facility] History of Past illness Narrative* Problem [...] of this encounter (statuses as of 09/04/2022) [facility] of Past illness Narrative* Problem [...] of this encounter (statuses as of 09/14/2022) [facility] History of Past illness Narrative* Problem [...] of this encounter (statuses as of 10/14/2022) [facility] History of Past illness Narrative* Problem [...] of this encounter (statuses as of 10/21/2022) [facility] History of Past illness Narrative* Problem [...] of this encounter (statuses as of 11/04/2022) [facility] of Past illness Narrative* Problem [...] of this encounter (statuses as of 12/04/2022) [facility] History of Past illness Narrative* Problem [...] of this encounter (statuses as of 12/07/2022) [facility] of Past illness Narrative* Problem [...] of this encounter (statuses as of 12/09/2022) [facility] of Past illness Narrative* Problem [...] of this encounter (statuses as of 12/09/2022) [facility] of Past illness Narrative* Problem [...] of this encounter (statuses as of 12/15/2022) [facility] of Past illness Narrative* Problem [...] of this encounter (statuses as of 12/17/2022) [facility] of Past illness Narrative* Problem [...] of this encounter (statuses as of 12/28/2022) [facility] of Past illness Narrative* Problem [...] of this encounter (statuses as of 01/02/2023) [facility] of [facility] illness Narrative* Problem [...] of this encounter (statuses as of 01/02/2023) [facility] of Past illness Narrative* Problem [...] of this encounter (statuses as of 01/04/2023) [facility] of Past illness Narrative* Problem [...] as of this encounter (statuses as of 04/06/2023) [facility] of Past illness Narrative* Problem [...] as of this encounter (statuses as of 04/07/2023) [facility] of [facility] illness Narrative* Problem [...] as of this encounter (statuses as of 04/12/2023) [facility] [place] [facility] Diagnosis URI, acute- Primary Acute upper respiratory infections of unspecified site Bilateral impacted cerumen Impacted cerumen [facility] [place] [facility] Diagnosis COVID-19- Primary [facility] [place] [facility]* Diagnosis Dysuria- Primary Urinary frequency Microscopic hematuria History of kidney stones Personal history of urinary calculi [facility] [place] [facility]* Diagnosis Epigastric pain- Primary Abdominal pain, epigastric Left upper quadrant abdominal pain Medication monitoring encounter Encounter for therapeutic drug monitoring documented [facility] [place] [facility] Diagnosis Generalized abdominal pain- Primary Abdominal pain, generalized [facility] [place] [facility]* Diagnosis Abdominal pain, unspecified abdominal location- Primary [facility] Diagnosis Epigastric pain Abdominal pain, epigastric Left upper quadrant abdominal pain documented in this encounter [facility] note* Diagnosis Sore throat- Primary Acute pharyngitis documented in this encounter [facility] note* Diagnosis Acute otitis media, left- Primary Unspecified otitis media documented in this encounter [facility] note* Diagnosis Bronchitis- Primary Bronchitis, not specified as acute or chronic Mild intermittent asthma without complication Unspecified asthma documented in this encounter [facility] note* Diagnosis Bronchitis- Primary Bronchitis, not specified as acute or chronic documented in this encounter [facility] note* Diagnosis Pain of toe of right foot- Primary Pain in limb documented in this encounter [facility] note* Diagnosis Right ear pain- Primary Otalgia, unspecified Impacted cerumen of right ear Impacted cerumen documented in this encounter [facility] note* Diagnosis Pain of toe of right foot Pain in limb documented in this encounter [facility] note* Diagnosis Acute non-recurrent sinusitis, unspecified location- Primary Bilateral impacted cerumen Impacted cerumen documented in this encounter [facility] note* Diagnosis Pain of toe of right foot- Primary Pain in limb Repetitive stress injury Unspecified site of sprain and strain documented in this encounter [facility] note* Diagnosis Epigastric pain Abdominal pain, epigastric Left upper quadrant abdominal pain documented in this encounter [facility] note* Diagnosis Pain of toe of right foot Pain in limb documented in this encounter [facility] note* Diagnosis Pain of toe of right foot Pain in limb Repetitive stress injury Unspecified site of sprain and strain documented in this encounter [facility] note* Diagnosis Pain of toe of right foot- Primary Pain in limb Right foot pain Pain in limb documented in this encounter [facility] note* Diagnosis Bronchitis- Primary Bronchitis, not specified as acute or chronic documented in this encounter [facility] note* Diagnosis Skin irritation- Primary Unspecified disorder of skin and subcutaneous tissue documented in this encounter [facility] note* Diagnosis Dermatitis- Primary Contact dermatitis and other eczema, due to unspecified cause documented in this encounter [facility] for referral (narrative)* Diagnostic Procedure Only (Routine) - Closed Specialty Diagnoses / Procedures Referred By Ellyn t Referred To Contact XR IMAGING Diagnoses Epigastric pain Left upper quadrant abdominal pain Procedures XR ABDOMEN 1V SUPINE RADIOLOGIC EXAM ABDOMEN 1 VIEW Rich Quick MD [address] [place] [address] Xr Imaging Referral ID Status Reason Start Date Expiration Date V isits Requested Visits Authorized [id number] Closed Auto-Generate d Referral 06/29/2022 07/29/2023 1 1 [facility] for referral (narrative)* Diagnostic Procedure Only (Urgent) - Closed Specialty Diagnoses / Procedures Referred By Contac t Referred To Contact XR IMAGING Diagnoses Abdominal pain, unspecified abdominal location Procedures XR ABDOMEN 1V SUPINE RADIOLOGIC EXAM ABDOMEN 1 VIEW Rich Quick MD [address] [place] [address] Xr Imaging Referral ID Status Reason Start Date Expiration Date V isits Requested Visits Authorized [id number] Closed Auto-Generate d Referral 07/01/2022 07/31/2023 1 1 [facility] for referral (narrative)* Diagnostic Procedure Only (Routine) - Closed Specialty Diagnoses / Procedures Referred By Contac t Referred To Contact XR IMAGING Diagnoses Pain of toe of right foot Procedures XR FOOT GENERAL 3V AP/LAT/OBL RIGHT RADEX FOOT COMPLETE MINIMUM 3 VIEWS Fern [address] [address] [place] [address] Referral ID Status Reason Start Date Expiration Date V isits Requested Visits Authorized [id number] Closed Auto-Generate d Referral 11/03/2022 12/03/2023 1 1 * Diagnostic Procedure Only (Routine) - Closed Specialty Diagnoses / Procedures Referred By Contac t Referred To Contact XR IMAGING Diagnoses Pain of toe of right foot Procedures XR TOE AP/LAT/OBL RIGHT RADEX TOE MINIMUM 2 VIEWS Fern Yañez [address] [place] [address] [place] [address] Referral ID Status Reason Start Date Expiration Date V isits Requested Visits Authorized [id number] Closed Auto-Generate d Referral 11/03/2022 12/03/2023 1 1 [facility] for referral (narrative)* Diagnostic Procedure Only (Routine) - Closed Specialty Diagnoses / Procedures Referred By Contac t Referred To Contact XR IMAGING Diagnoses Pain of toe of right foot Procedures XR ANKLE GENERAL 3V AP/LAT/OBL RIGHT RADEX ANKLE COMPLETE MINIMUM 3 VIEWS Fern Yañez [address] [place] [address] [place] [address] Referral ID Status Reason Start Date Expiration Date V isits Requested Visits Authorized [id number] Closed Auto-Generate d Referral 12/17/2022 01/16/2024 1 1 * Diagnostic Procedure Only (Routine) - Closed Specialty Diagnoses / Procedures Referred By Contac t Referred To Contact XR IMAGING Diagnoses Pain of toe of right foot Repetitive stress injury Procedures XR FOOT GENERAL 3V AP/LAT/OBL RIGHT RADEX FOOT COMPLETE MINIMUM 3 VIEWS Fern [address] [place] [address] [place] [address] Referral ID Status Reason Start Date Expiration Date V isits Requested Visits Authorized [id number] Closed Auto-Generate d Referral 12/17/2022 01/16/2024 1 1 [facility] for referral (narrative)* Diagnostic Procedure Only (Routine) - Closed Specialty Diagnoses / Procedures Referred By Contac t Referred To Contact XR IMAGING Diagnoses Pain of toe of right foot Procedures XR FOOT GENERAL 3V AP/LAT/OBL RIGHT RADEX FOOT COMPLETE MINIMUM 3 VIEWS Fern Yañez [address] [place] [address] [place] [address] Referral ID Status Reason Start Date Expiration Date V isits Requested Visits Authorized [id number] Closed Auto-Generate d Referral 11/03/2022 12/03/2023 1 1 * Diagnostic Procedure Only (Routine) - Closed Specialty Diagnoses / Procedures Referred By Contac t Referred To Contact XR IMAGING Diagnoses Pain of toe of right foot Procedures XR TOE AP/LAT/OBL RIGHT RADEX TOE MINIMUM 2 VIEWS Fern [address] [place] [address] [place] [address] Referral ID Status Reason Start Date Expiration Date V isits Requested Visits Authorized [id number] Closed Auto-Generate d Referral 11/03/2022 12/03/2023 1 1 [facility] for referral (narrative)* Diagnostic Procedure Only (Routine) - Closed Specialty Diagnoses / Procedures Referred By Contac t Referred To Contact XR IMAGING Diagnoses Pain of toe of right foot Procedures XR ANKLE GENERAL 3V AP/LAT/OBL RIGHT RADEX ANKLE COMPLETE MINIMUM 3 VIEWS Fern [address] [place] [address] [place] [address] Referral ID Status Reason Start Date Expiration Date V isits Requested Visits Authorized [id number] Closed Auto-Generate d Referral 12/17/2022 01/16/2024 1 1 * Diagnostic Procedure Only (Routine) - Closed Specialty Diagnoses / Procedures Referred By Contac t Referred To Contact XR IMAGING Diagnoses Pain of toe of right foot Repetitive stress injury Procedures XR FOOT GENERAL 3V AP/LAT/OBL RIGHT RADEX FOOT COMPLETE MINIMUM 3 VIEWS Fern [address] [place] [address] [place] [address] Referral ID Status Reason Start Date Expiration Date V isits Requested Visits Authorized [id number] Closed Auto-Generate d Referral 12/17/2022 01/16/2024 1 1 [facility] for visit Narrative* Diagnostic Procedure Only (Routine) - Closed Specialty Diagnoses / Procedures Referred By Contac t Referred To Contact XR IMAGING Diagnoses Pain of toe of right foot Procedures XR FOOT GENERAL 3V AP/LAT/OBL RIGHT RADEX FOOT COMPLETE MINIMUM 3 VIEWS Fern Yañez [address] [place] [address] [place] [address] Referral ID Status Reason Start Date Expiration Date V isits Requested Visits Authorized [id number] Closed Auto-Generate d Referral 11/03/2022 12/03/2023 1 1 [facility] for visit Narrative* Diagnostic Procedure Only (Routine) - Closed Specialty Diagnoses / Procedures Referred By Ellyn connors Referred To Contact XR IMAGING Diagnoses Pain of toe of right foot Procedures XR ANKLE GENERAL 3V AP/LAT/OBL RIGHT RADEX ANKLE COMPLETE MINIMUM 3 VIEWS Fern Yañez [address] [place] [address] [place] [address] Referral ID Status Reason Start Date Expiration Date V isits Requested Visits Authorized [id number] Closed Auto-Generate d Referral 12/17/2022 01/16/2024 1 1 [facility] Summary Purpose Family History No Family History Records FoundNo Family History Records FoundNo Family History Records FoundNo Family History Records FoundNo Family History Records FoundNo Family History Records FoundNo Family History Records FoundNo Family History Records Found Advance Directives No Advanced Directives Records FoundDocuments on File Type Date 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 Advance Directive(s) 01/26/2021 12:27 PM Advance Directive(s) 01/13/2021 8:30 AM Reason for Referral Specialty Diagnoses / Procedures Referred By Contac t Referred To Contact Urology Diagnoses Urinary frequency History of kidney stones Microscopic hematuria Procedures CONSULT TO UROLOGY OFFICE/OUTPATIENT NEW HIGH MDM 60-74 MINUTES Jatin Brown MD [address] [place] [address] Referral ID Status Reason Start Date Expiration Date Visits Requested Visits Authorized [id number] Authorized PCP Requested Referral 03/24/2022 03/24/2023 1 1 Specialty Diagnoses / Procedures Referred By Ellyn connors Referred To Contact Podiatry Diagnoses Pain of toe of right foot Procedures CONSULT TO PODIATRY OFFICE/OUTPATIENT [facility] 60-74 MINUTES Rich Quick MD [address] [place] [address] Referral ID Status Reason Start Date Expiration Date Visits Requested Visits Authorized [id number] Authorized PCP Requested Referral 10/13/2022 10/13/2023 1 1 Additional Source Comments (unrecognized sect ion and content) No Status Records FoundNo Status Records FoundNo Status Records FoundNo Status Records FoundNo Status Records FoundNo Status Records FoundNo Status Records FoundNo Status Records Found INFORMATION SOURCE (unrecogn ized section and content) DATE CREATED AUTHOR AUTHOR'S ORGANIZ ATION 06/21/2018 [facility] DATE CREATED AUTHOR AUTHOR'S ORGANIZ ATION 02/22/2019 [facility] DATE CREATED AUTHOR AUTHOR'S ORGANIZ ATION 07/12/2019 [facility] DATE CREATED AUTHOR AUTHOR'S ORGANIZ ATION 01/29/2021 [facility] DATE CREATED AUTHOR AUTHOR'S ORGANIZ ATION 05/18/2022 [facility] DATE CREATED AUTHOR AUTHOR'S ORGANIZ ATION 06/12/2022 [facility] DATE CREATED AUTHOR AUTHOR'S ORGANIZ ATION 04/14/2023 [facility] Source Comments (unrecognize d section and content) In the event this informatio n is protected by the Federal Confidentiality of Alcohol and Drug Abuse Patient Records regulations: The Federal rules restrict any use of the information to criminally investigate or prosecute any alcohol or drug abuse patient.[facility] the event this information is protected by the Federal Confidentiality of Alcohol and Drug Abuse Patient Records regulations: The Federal rules restrict any use of the information to criminally investigate or prosecute any alcohol or drug abuse patient.[facility] the event this information is protected by the Federal Confidentiality of Alcohol and Drug Abuse Patient Records regulations: The Federal rules restrict any use of the information to criminally investigate or prosecute any alcohol or drug abuse patient.[facility] the event this information is protected by the Federal Confidentiality of Alcohol and Drug Abuse Patient Records regulations: The Federal rules restrict any use of the information to criminally investigate or prosecute any alcohol or drug abuse patient.[facility] the event this information is protected by the Federal Confidentiality of Alcohol and Drug Abuse Patient Records regulations: The Federal rules restrict any use of the information to criminally investigate or prosecute any alcohol or drug abuse patient.[facility] the event this information is protected by the Federal Confidentiality of Alcohol and Drug Abuse Patient Records regulations: The Federal rules restrict any use of the information to criminally investigate or prosecute any alcohol or drug abuse patient.[facility] the event this information is protected by the Federal Confidentiality of Alcohol and Drug Abuse Patient Records regulations: The Federal rules restrict any use of the information to criminally investigate or prosecute any alcohol or drug abuse patient.[facility] the event this information is protected by the Federal Confidentiality of Alcohol and Drug Abuse Patient Records regulations: The Federal rules restrict any use of the information to criminally investigate or prosecute any alcohol or drug abuse patient.[facility] the event this information is protected by the Federal Confidentiality of Alcohol and Drug Abuse Patient Records regulations: The Federal rules restrict any use of the information to criminally investigate or prosecute any alcohol or drug abuse patient.[facility] the event this information is protected by the Federal Confidentiality of Alcohol and Drug Abuse Patient Records regulations: The Federal rules restrict any use of the information to criminally investigate or prosecute any alcohol or drug abuse patient.[facility] the event this information is protected by the Federal Confidentiality of Alcohol and Drug Abuse Patient Records regulations: The Federal rules restrict any use of the information to criminally investigate or prosecute any alcohol or drug abuse patient.[facility] the event this information is protected by the Federal Confidentiality of Alcohol and Drug Abuse Patient Records regulations: The Federal rules restrict any use of the information to criminally investigate or prosecute any alcohol or drug abuse patient.[facility]In the event this information is protected by the Federal Confidentiality of Alcohol and Drug Abuse Patient Records regulations: The Federal rules restrict any use of the information to criminally investigate or prosecute any alcohol or drug abuse patient.[facility] HospitalIn the event this information is protected by the Federal Confidentiality of Alcohol and Drug Abuse Patient Records regulations: The Federal rules restrict any use of the information to criminally investigate or prosecute any alcohol or drug abuse patient.[facility] HospitalIn the event this information is protected by the Federal Confidentiality of Alcohol and Drug Abuse Patient Records regulations: The Federal rules restrict any use of the information to criminally investigate or prosecute any alcohol or drug abuse patient.[facility] Hospital[facility] the event this information is protected by the Federal Confidentiality of Alcohol and Drug Abuse Patient Records regulations: The Federal rules restrict any use of the information to criminally investigate or prosecute any alcohol or drug abuse patient.[facility] the event this information is protected by the Federal Confidentiality of Alcohol and Drug Abuse Patient Records regulations: The Federal rules restrict any use of the information to criminally investigate or prosecute any alcohol or drug abuse patient.[facility] Hospital[facility] the event this information is protected by the Federal Confidentiality of Alcohol and Drug Abuse Patient Records regulations: The Federal rules restrict any use of the information to criminally investigate or prosecute any alcohol or drug abuse patient.[facility] HospitalIn the event this information is protected by the Federal Confidentiality of Alcohol and Drug Abuse Patient Records regulations: The Federal rules restrict any use of the information to criminally investigate or prosecute any alcohol or drug abuse patient.[facility] HospitalIn the event this information is protected by the Federal Confidentiality of Alcohol and Drug Abuse Patient Records regulations: The Federal rules restrict any use of the information to criminally investigate or prosecute any alcohol or drug abuse patient.[facility] HospitalIn the event this information is protected by the Federal Confidentiality of Alcohol and Drug Abuse Patient Records regulations: The Federal rules restrict any use of the information to criminally investigate or prosecute any alcohol or drug abuse patient.[facility] HospitalIn the event this information is protected by the Federal Confidentiality of Alcohol and Drug Abuse Patient Records regulations: The Federal rules restrict any use of the information to criminally investigate or prosecute any alcohol or drug abuse patient.[facility] HospitalIn the event this information is protected by the Federal Confidentiality of Alcohol and Drug Abuse Patient Records regulations: The Federal rules restrict any use of the information to criminally investigate or prosecute any alcohol or drug abuse patient.[facility] HospitalIn the event this information is protected by the Federal Confidentiality of Alcohol and Drug Abuse Patient Records regulations: The Federal rules restrict any use of the information to criminally investigate or prosecute any alcohol or drug abuse patient.[facility] HospitalIn the event this information is protected by the Federal Confidentiality of Alcohol and Drug Abuse Patient Records regulations: The Federal rules restrict any use of the information to criminally investigate or prosecute any alcohol or drug abuse patient.[facility] HospitalIn the event this information is protected by the Federal Confidentiality of Alcohol and Drug Abuse Patient Records regulations: The Federal rules restrict any use of the information to criminally investigate or prosecute any alcohol or drug abuse patient.[facility]In the event this information is protected by the Federal Confidentiality of Alcohol and Drug Abuse Patient Records regulations: The Federal rules restrict any use of the information to criminally investigate or prosecute any alcohol or drug abuse patient.[facility] the event this information is protected by the Federal Confidentiality of Alcohol and Drug Abuse Patient Records regulations: The Federal rules restrict any use of the information to criminally investigate or prosecute any alcohol or drug abuse patient.[facility]In the event this information is protected by the Federal Confidentiality of Alcohol and Drug Abuse Patient Records regulations: The Federal rules restrict any use of the information to criminally investigate or prosecute any alcohol or drug abuse patient.[facility]In the event this information is protected by the Federal Confidentiality of Alcohol and Drug Abuse Patient Records regulations: The Federal rules restrict any use of the information to criminally investigate or prosecute any alcohol or drug abuse patient.[facility] HospitalIn the event this information is protected by the Federal Confidentiality of Alcohol and Drug Abuse Patient Records regulations: The Federal rules restrict any use of the information to criminally investigate or prosecute any alcohol or drug abuse patient.[facility] HospitalIn the event this information is protected by the Federal Confidentiality of Alcohol and Drug Abuse Patient Records regulations: The Federal rules restrict any use of the information to criminally investigate or prosecute any alcohol or drug abuse patient.[facility] Reason for Visit (unrecogniz ed section [...] Numbness Specialty Diagnoses / Procedures Referred By Contsarita t Referred To Contact Podiatry Diagnoses Pain of toe of right foot Procedures CONSULT TO PODIATRY OFFICE/OUTPATIENT [facility] 60-74 MINUTES Rich Quick MD [address] [place] [address] Referral ID Status Reason Start Date Expiration Date V isits Requested Visits Authorized [id number] Closed PCP Requested Referral 10/13/2022 10/13/2023 1 1 Reason Onset Date Comments Refill Request 12/03/2022 Reason Comments Sinus Problem sinus pressure and d rainage x 5 days Reason Comments Patient Update Patient Question Reason Comments Patient Update Reason Comments Established Patient Pain Reason Onset Date Comments Refill Request 12/28/2022 Reason Comments Established Patient Follow Up Pain Reason Comments Insurance Authorization Fluticasone Reason Comments Left leg swelling With redness & warm to touch x 1 day Reason Comments Recheck Rash on left upper t high x1 week; not getting any better Care Teams (unrecognized sec tion and content) Street Light Wirer Relationship Specialty Start Date End Date Rich Quick MD [address] [place], [place] [id number] PCP - General Family Medicine 12/07/13 Street Light Wirer Relationship Specialty Start Date End Date Rich Quick MD [address] [place] [address] PCP - General Family Medicine 12/07/13 [address] Light Wirer Relationship Specialty Start Date End Date Rich Quick MD [address] [place] [address] PCP - General Family Medicine 12/07/13 [address] Light Wirer Relationship Specialty Start Date End Date Rich Quick MD [address] [place] [address] PCP - General Family Medicine 12/07/13 [address] Light Wirer Relationship Specialty Start Date End Date Rich Quick MD [address] [place] [address] PCP - General Family Medicine 12/07/13 [address] Light Wirer Relationship Specialty Start Date End Date Rich Quick MD [address] [place] [address] PCP - General Family Medicine 12/07/13 [address] Light Wirer Relationship Specialty Start Date End Date Rich Quick MD [address] [place] [address] PCP - General Family Medicine 12/07/13 [address] Light Wirer Relationship Specialty Start Date End Date Rich Quick MD [address] [place] [address] PCP - General Family Medicine 12/07/13 [address] Light Wirer Relationship Specialty Start Date End Date Rich Quick MD [address] [place] [address] PCP - General Family Medicine 12/07/13 [address] Light Wirer Relationship Specialty Start Date End Date Rich Quick MD [address] [place] [address] PCP - General Family Medicine 12/07/13 [address] Light Wirer Relationship Specialty Start Date End Date Rich Quick MD [address] [place] [address] PCP - General Family Medicine 12/07/13 [address] Light Wirer Relationship Specialty Start Date End Date Rich Quick MD [address] [place] [address] PCP - General Family Medicine 12/07/13 [address] Light Wirer Relationship Specialty Start Date End Date Rich Quick MD [address] [place] [address] PCP - General Family Medicine 12/07/13 [address] Light Wirer Relationship Specialty Start Date End Date Rich Quick MD [address] [place] [address] PCP - General Family Medicine 12/07/13 [address] Light Wirer Relationship Specialty Start Date End Date Rich Quick MD [address] [place] [address] PCP - General Family Medicine 12/07/13 [address] Light Wirer Relationship Specialty Start Date End Date Rich Quick MD [address] [place] [address] PCP - General Family Medicine 12/07/13 [address] Light Wirer Relationship Specialty Start Date End Date Rich Quick MD [address] [place] [address] PCP - General Family Medicine 12/07/13 [address] Light Wirer Relationship Specialty Start Date End Date Rich Quick MD [address] [place] [address] PCP - General Family Medicine 12/07/13 [address] Light Wirer Relationship Specialty Start Date End Date Rich Quick MD [address] [place] [address] PCP - General Family Medicine 12/07/13 [address] Light Wirer Relationship Specialty Start Date End Date Rich Quick MD [address] [place] [address] PCP - General Family Medicine 12/07/13 Street Light Wirer Relationship Specialty Start Date End Date Rich Quick MD [address] [place] [address] PCP - General Family Medicine 12/07/13 FOR [...] BE BASED ON THE PRIMARY CLINICAL RECORDS. [employer] [facility]. provides no warranty or guarantee of the accuracy or completeness of information in this document.
[2023-04-17 15:50] LABS: Absolute Lymphocyte Count 1.63 X10^3/uL (0.83-4.51); Absolute Neutrophil Count 4.9 X10^3/uL (2.0-7.7); Basophil# 0.01 X10^3/uL; Basophil% 0.1 % (0-1); Hematocrit 38.7 % (40-54); Lymphocyte # 1.63 X10^3/ul (0.83-4.51); Lymphocyte % 22.8 % (19-41); Mean Corpuscular Hgb 25.3 pg (27.0-32.0); Mean Corpuscular Volume 81.5 fL (80-94); Mean Platelet Vol. 8.9 fl (6.2-12.0); Monocyte# 0.57 X10^3/uL; NRBC Flagged by Analyzer 0 % (0-5); Neutrophil # 4.91 X10^3/uL (2.7-7.7); Neutrophil % 68.8 % (47-70); Platelet Count 275 K/mm3 (150-450); RBC Distribution Width CV 14.3 % (11.6-14.6); RBC Distribution Width SD 42.2 fl (35.1-43.9); Red Blood Count 4.75 M/mm3 (4.6-6.2); White Blood Count 7.1 K/mm3 (4.4-11.0)
[2023-04-17 16:07] LABS: Amphetamine Urine VISTA NEGATIVE (<1000 ng/mL); Barbiturate Urine VISTA NEGATIVE (< 200 ng/mL); Benzodiazepine Urine VISTA NEGATIVE (< 200 ng/mL); Cocaine Urine VISTA NEGATIVE (< 300 ng/mL); Ecstacy Urine VISTA NEGATIVE (< 500 ng/mL); Methadone Urine VISTA NEGATIVE (< 300 ng/mL); PCP Urine VISTA NEGATIVE (< 25 ng/mL); THC Urine VISTA NEGATIVE (< 50 ng/mL); Vista UDS pH Range 6
[2023-04-17 16:14] LABS: Alcohol, Blood (Medical)-Serum < 3.0 mg/dL
[2023-04-17 16:15] LABS: ALB/GLOB Ratio 0.9 RATIO (0.9-2.4); AST(SGOT) 24 U/L (15-37); Alanine Aminotransfer ALT/SGPT 38 U/L (16-61); Albumin, Serum 3.4 g/dL (3.2-5.0); Alkaline Phosphatase 73 U/L (45-117); Anion Gap 5 (5-15); BUN 7 mg/dL (7-18); BUN/Creat Ratio 9.3 RATIO (10-20); Calcium,Total 8.8 mg/dL (8.5-10.1); Chloride 110 mmol/L (98-107); Creatinine, Serum 0.75 mg/dL (0.70-1.30); EST Glomerular Filtration Rate 130 mL/min (>60); Est Glom Filt Rate - Afr Amer 157 mL/min (>60); Estimated Creatinine Clearance 202.89 ml/min; Globulin 3.6 g/dL (2.2-4.2); Glucose 114 mg/dL (74-106); Potassium 3.8 mmol/L (3.5-5.1); Sodium Level 139 mmol/L (136-145)
[2023-04-17 16:40] LABS: Lithium < 0.20 mmol/L (0.60-1.20)
[2023-04-17 19:36] VITALS: BP 116/88; PULSE 89; RESP 18; TEMP 36.2; O2SAT 93
[2023-04-17] MEDS: Lithium Carbonate 300mg Capsule 300 MG PO (22:18)
[2023-04-17 23:44] VITALS: PULSE 80; RESP 18; TEMP 36.5; O2SAT 94
[2023-04-18] VITALS (9 sets, daily range): BP systolic 96–130; BP diastolic 64–83; PULSE 84–99; RESP 14–20; TEMP 36.8; O2SAT 92–100
--- NOTE | 2023-04-18 08:40 | ED.RN ---
CALLED [facility] FOR AN UPDATE, SPOKE WITH ALY, SHE STATED PT WAS DECLINED AT [facility] AND [facility]. [facility] JUST REFERR[facility] PT TO [facility] AND [facility].
--- NOTE | 2023-04-18 09:30 | ED.RN ---
[facility] CALLED WITH AN UPDATE ON PLACEMENT, SPOKE WITH ALY. SHE STATED THAT SHE HAS CALLED EVERY STRAIGHT MEDICAID FACILITY, AND NONE OF THEM HAVE BEDS AVAILABLE. SHE HAS NOW REFERRED PT TO [facility].
--- NOTE | 2023-04-18 11:43 | ED.RN ---
THIS RN RECEIVES PHONE CALL FROM THE [facility]. PT ACCEPTED TO [facility], N2N [phone]. [facility] RETURNS CALL AT [phone] REPORTING THAT [facility] RECINDED ACCEPTANCE OF PATIENT BECAUSE THEY DO NOT HAVE BED SPACE.
--- NOTE | 2023-04-18 13:35 | ED.RN ---
[facility] CALLED TO ACCEPT PT @ 3535. NURSE TO NURSE # IS [phone] EXTENSION [phone]
--- NOTE | 2023-04-18 13:36 | ED.RN ---
[facility] CALLED, ETA 2 HOURS ([phone])
== END 2023-04-18 15:55 ==
PROVIDERS: Physician Assistant; Emergency Provider Emergency Medicine; PCP Family Medicine; Visit Provider Emergency Medicine
DX: R45.851 Suicidal ideations (principal); F25.9 Schizoaffective disorder, unspecified; F32.A Depression, unspecified; F43.10 Post-traumatic stress disorder, unspecified; J45.909 Unspecified asthma, uncomplicated; Z79.899 Other long term (current) drug therapy
CPT/HCPCS: 80053; 80178; 80307; 80320; 85025; 87811; 93005; 99284; G0480

== ENCOUNTER 2023-07-31 20:17 | Emergency (ER) | payer MEDICARE, MEDICAID, SELFPAY ==
[2023-07-31 20:18] VITALS: BP 128/86; PULSE 112; RESP 18; TEMP 36.4; O2SAT 96; BMI 45.7
--- NOTE | 2023-07-31 20:39 | EKG12_ITS ---
Test Reason : CP Blood Pressure : / mmHG Vent. Rate : 095 BPM Atrial Rate : 095 BPM P-R Int : 162 ms QRS Dur : 100 ms QT Int : 354 ms P-R-T Axes : 026 016 028 degrees QTc Int : 444 ms Normal sinus rhythm Normal ECG Confirmed by TODD LAI, RUDY ([id number]), film and video editor PREET LEON ([id number]) on 08/02/2023 2:04:23 PM Referred By: Confirmed By:RUDY BROOKS MD
--- NOTE | 2023-07-31 20:39 | ED.VIS.CHEST ---
HPI History of Present Illness Chief Complaint: Chest Pain Informant: patient Onset/Context/Timing Onset: Days Narrative Narrative: Patient presents secondary to chest and left arm pain. He states he been having intermittent pain for the past several days but it has been constant today. He describes sharp pain to the left upper chest as well as his entire left arm. He denies recent URI symptoms. He denies significant cough. His father reported does have significant heart history at a young age. [facility] Medical History Paranoia PTSD (post-traumatic stress disorder) Schizophrenia Bipolar 1 disorder Pneumonia Back pain Seizures Asthma Knee pain Psychiatric pseudoseizure Petit mal epilepsy ADHD (attention deficit hyperactivity disorder) Partial agenesis of corpus callosum Aspergers' syndrome Home Medications ?Medication ?Instructions ?Recorded ?Last Taken ?Type omeprazole 40 mg capsule,delayed 40 mg PO DAILY 12/24/15 Unknown History release lamotrigine 200 mg tablet 200 mg PO BID 11/19/20 Unknown History paliperidone 6 mg tablet,extended 3 mg PO QHS 06/02/22 Unknown History release 24 hr paliperidone palm (3 month) 819 819 mg IM Q3M 06/02/22 05/31/22 History mg/2.63 mL intramuscular syringe (Invega Trinza) albuterol sulfate 90 mcg/actuation 2 puff inhalation Q6H PRN 04/17/23 Unknown History aerosol inhaler shortness of breath or wheezing bisacodyl 5 mg tablet,delayed 5 mg PO DAILY PRN constipation 04/17/23 Unknown History release (Dulcolax (bisacodyl)) dicyclomine 10 mg capsule 10 mg PO TID 04/17/23 Unknown History docusate sodium 100 mg capsule 100 mg PO DAILY 04/17/23 Unknown History (Colace) lidocaine 5 % topical patch 1 patch transdermal DAILY 04/17/23 Unknown History lithium carbonate 300 mg capsule 300 mg PO QHS 04/17/23 Unknown History sertraline 100 mg tablet 100 mg PO Q24H 04/17/23 Unknown History triamcinolone acetonide 0.1 % 1 applic topical BID PRN muscle 04/17/23 Unknown History topical ointment relaxer urea 40 % topical cream 1 applic topical DAILY 04/17/23 Unknown History naproxen 500 mg tablet (Naprosyn) 500 mg PO BID PRN pain #20 tabs 07/31/23 Unknown Rx prednisone 20 mg tablet 40 mg (2 x 20 mg) PO DAILY #8 tabs 07/31/23 Unknown Rx Allergy/AdvReac Type Severity Reaction Status Date / Time bee venom protein (honey bee) Allergy Anaphylaxis Verified 07/31/23 20:18 carbamazepine (From Tegretol) Allergy Unknown Verified 07/31/23 20:18 divalproex sodium (From Allergy Other Verified 07/31/23 20:18 Depakote) methylphenidate (From Allergy Unknown Verified 07/31/23 20:18 Concerta) methylphenidate HCl (From Allergy Unknown Verified 07/31/23 20:18 Ritalin) phenobarbital Allergy Hives Verified 07/31/23 20:18 Family History Other Asthma Diabetes Hypertension Kidney disease Surgical History Hx of cholecystectomy Hx of tympanostomy tubes H/O hernia repair Social History household members: family housing: house Smoking Status: Never smoker alcohol intake: never ROS ROS ED Constitutional Constitutional ED: Denies chills or fever(s) Eyes Eyes: Denies discharge from eye(s) ENT ENT ED: Denies discharge from eye(s), rhinorrhea or sore throat Cardiovascular Cardiovascular: Reports chest pain; Denies palpitations Respiratory/Chest Respiratory/Chest: Reports dyspnea; Denies cough Gastrointestinal Gastrointestinal: Denies abdominal pain, nausea or vomiting Musculoskeletal Musculoskeletal: Reports extremity pain; Denies back pain Integumentary Denies Abrasions or rash Neurologic Neurologic: Denies headache(s) or weakness Psychiatric Psychiatric: Denies anxiety or depression Allergic/Immunologic Allergic/Immunologic ED: Denies lip swelling or urticaria EXAM Physical Exam Const Vital Signs: 07/31/23 20:18 07/31/23 20:43 07/31/23 20:43 Temperature 97.6 F L Temperature Source Temporal Pulse Rate 112 H Respiratory Rate 18 Respiratory Effort Short of Breath Blood Pressure 128/86 H Blood Pressure Mean 100 Pulse Ox 96 Oxygen Delivery Method Room Air Room Air 07/31/23 21:17 07/31/23 21:57 Temperature Temperature Source Pulse Rate 90 93 Respiratory Rate 21 H 21 H Respiratory Effort Blood Pressure 120/74 119/72 Blood Pressure Mean 89 87 Pulse Ox 93 98 Oxygen Delivery Method Room Air Room Air Positive obese Nutritional Appearance: obese HEENT Reports moist mucous membranes Eyes EOMs intact bilaterally Chest Wall inspection of chest normal Chest Narrative: Reproducible chest wall tenderness to the left upper chest along the sternal border. No overlying skin change. 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 IV line initiated. Labwork obtained to evaluate for leukocytosis, anemia, and electrolyte derangement. Chest x-ray obtained to evaluate for acute lung pathology, cardiac size, or mediastinal abnormality. EKG obtained to evaluate for cardiac arrhythmia/ischemia. Patient given aspirin along with a dose of Solu-Medrol for suspected costochondritis. History & Record Review Discussion w/independent historian: Patient and Family Additional record(s) reviewed:: Prior ED visit and Prior labs Lab Data Attestation: I reviewed the patient's lab results. Labs: Laboratory Results - last 24 hr 07/31/23 20:40 WBC 9.2 RBC 4.96 Hgb 13.0 Hct 41.5 MCV 83.7 MCH 26.2 L MCHC 31.3 L RDW Std Deviation 40.9 RDW Coeff of Nano 13.4 Plt Count 349 MPV 8.9 Immature Gran % (Auto) 0.300 Neut % (Auto) 63.0 Lymph % (Auto) 30.6 Routt % (Auto) 6.0 Eos % (Auto) 0.0 Baso % (Auto) 0.1 Absolute Neuts (auto) 5.8 Absolute Lymphs (auto) 2.83 Nucleated RBC % 0 Sodium 138 Potassium 3.5 Chloride 107 Carbon Dioxide 23.0 Anion Gap 8 BUN 9 Creatinine 0.76 Estim Creat Clear Calc 200.03 Est GFR (MDRD) Af Amer 155 Est GFR (MDRD) Non-Af 128 BUN/Creatinine Ratio 11.8 Glucose 128 H Calcium 10.2 H Troponin I High Sens < 3 L Radiography Chest X-Ray - ED: 1 View, Read by ED Physician, Normal, Heart, Lungs and Mediastinum Diagnostic Testing: Clinical Impression(s) from Imaging Studies Chest X-Ray 07/31/23 20:46 IMPRESSION: No radiographic evidence of acute cardiopulmonary disease. Electronically Signed: Colt Zambrano MD at 21:02 EDT Reading Location ID and State: [facility] / [place] , Service support , EKG Initial EKG: Attestation: I personally reviewed and interpreted this EKG as follows: Interpretation: Sinus Rhythm (Sinus rhythm at 95 bpm. No acute ischemia.) Treatment and Re-Evaluation :: CBC was normal white count 9.2 with a hemoglobin of 13.0. Normal differential. Chemistry studies unremarkable. Troponin is less than 3. Chest x-ray per my interpretation reveals no focal infiltrate. Radiology interpretation reviewed and agrees. EKG is sinus rhythm with no evidence of ischemia. On repeat evaluation patient does report some mild improvement in his symptoms. He has reproducible chest wall tenderness at the cartilage border of the sternum. Do feel he has costochondritis. He is already on reflux medication. I will write him prednisone and naproxen. He was advised to eat with the medication. Return instructions provided. Discharge Plan Triage Chief Complaint: Chest Pain ED Provider: Sisi Zavala Dx/Rx/DC Orders Clinical Impression: Costochondritis Instructions: ED Chest Wall Pain, Costochondritis Prescriptions: New prednisone 20 mg tablet 40 mg PO DAILY Qty: 8 0RF naproxen [Naprosyn] 500 mg tablet 500 mg PO BID PRN (Reason: pain) Qty: 20 0RF No Action omeprazole 40 MG capsule 40 mg PO DAILY lamotrigine 200 mg tablet 200 mg PO BID paliperidone 6 mg tablet extended release 24hr 3 mg PO QHS Invega Trinza 819 mg/2.63 mL syringe 819 mg IM Q3M lidocaine 5 % adhesive patch,medicated 1 patch transdermal DAILY Patient Comments: apply 1 patch as directed every 12 hours REMOVE OLD patch PRIOR T... (REFER TO PRESCRIPTION NOTES). left leg albuterol sulfate 90 mcg/actuation HFA aerosol inhaler 2 puff INHALATION Q6H PRN (Reason: shortness of breath or wheezing) Patient Comments: inhale 2 puffs by mouth INSTRUCTED EVERY 6 HOURS NEEDED lithium carbonate 300 mg capsule 300 mg PO QHS dicyclomine 10 mg capsule 10 mg PO TID Patient Comments: take 1 capsule by mouth before meals and AT BEDTIME sertraline 100 mg tablet 100 mg PO Q24H triamcinolone acetonide 0.1 % ointment 1 applic TOPICAL BID PRN (Reason: muscle relaxer) Patient Comments: apply to affected area twice a day left upper thigh urea 40 % cream 1 applic TOPICAL DAILY Patient Comments: apply to affected area once daily bilat feet docusate sodium [Colace] 100 mg capsule 100 mg PO DAILY bisacodyl [Dulcolax (bisacodyl)] 5 mg tablet,delayed release (DR/EC) 5 mg PO DAILY PRN (Reason: constipation) Primary Care Provider: Turner Quick Referrals: Turner Quick MD [Primary Care Provider] - 1 Week if not improving Activity Restrictions/Additional Instructions: Please ensure that you are taking your medicine for acid reflux. Please eat with the steroid and naproxen as they can irritate your stomach. Print Language: Indonesian Disposition Disposition: Home, Self Care
--- NOTE | 2023-07-31 20:46 | RAD_ITS ---
EXAM: XR CHEST, 1 VIEW CLINICAL INDICATION: chest pain TECHNIQUE: Frontal view of the chest. COMPARISON: 03.26.20 FINDINGS: LUNGS AND PLEURAL SPACES: Unremarkable. No consolidation or edema. No pneumothorax. No effusion. HEART: Unremarkable. Cardiac silhouette not enlarged. MEDIASTINUM: Central airways and mediastinal contour are unremarkable. BONES/JOINTS: Unremarkable. No acute fracture. SOFT TISSUES: Unremarkable. RAD/Chest 1 View (Portable) IMPRESSION: No radiographic evidence of acute cardiopulmonary disease. Electronically Signed: Colt Zambrano MD at 21:02 EDT ,
[2023-07-31 20:51] LABS: Absolute Lymphocyte Count 2.83 X10^3/uL (0.83-4.51); Absolute Neutrophil Count 5.8 X10^3/uL (2.0-7.7); Basophil# 0.01 X10^3/uL; Basophil% 0.1 % (0-1); Hematocrit 41.5 % (40-54); Lymphocyte # 2.83 X10^3/ul (0.83-4.51); Lymphocyte % 30.6 % (19-41); Mean Corp Hgb Conc 31.3 g/dL (32-36); Mean Corpuscular Hgb 26.2 pg (27.0-32.0); Mean Corpuscular Volume 83.7 fL (80-94); Mean Platelet Vol. 8.9 fl (6.2-12.0); Monocyte# 0.55 X10^3/uL; NRBC Flagged by Analyzer 0 % (0-5); Neutrophil # 5.82 X10^3/uL (2.7-7.7); Platelet Count 349 K/mm3 (150-450); RBC Distribution Width CV 13.4 % (11.6-14.6); RBC Distribution Width SD 40.9 fl (35.1-43.9); Red Blood Count 4.96 M/mm3 (4.6-6.2); White Blood Count 9.2 K/mm3 (4.4-11.0)
[2023-07-31] MEDS: Aspirin 81 MG TAB.CHEW 324 MG PO (20:56)
[2023-07-31] MEDS: MethylPREDNISolone 125 MG/2 ML Vial IV (20:56)
[2023-07-31 21:10] LABS: Anion Gap 8 (5-15); BUN 9 mg/dL (7-18); BUN/Creat Ratio 11.8 RATIO (10-20); Calcium,Total 10.2 mg/dL (8.5-10.1); Chloride 107 mmol/L (98-107); Creatinine, Serum 0.76 mg/dL (0.70-1.30); EST Glomerular Filtration Rate 128 mL/min (>60); Est Glom Filt Rate - Afr Amer 155 mL/min (>60); Estimated Creatinine Clearance 200.03 ml/min; Glucose 128 mg/dL (74-106); Potassium 3.5 mmol/L (3.5-5.1); Sodium Level 138 mmol/L (136-145); Troponin-I HS < 3 pg/mL (3.0-78.0)
[2023-07-31 21:17] VITALS: BP 120/74; PULSE 90; RESP 21; O2SAT 93
[2023-07-31 21:57] VITALS: BP 119/72; PULSE 93; RESP 21; O2SAT 98
[2023-07-31 22:11] VITALS: BP 122/81; PULSE 85; RESP 16; TEMP 36.8; O2SAT 98
== END 2023-07-31 22:12 | disposition home or self-care (01) ==
PROVIDERS: Emergency Provider Emergency Medicine; PCP Family Medicine; Visit Provider Emergency Medicine
DX: M94.0 Chondrocostal junction syndrome [Tietze] (principal); Q04.0 Congenital malformations of corpus callosum; G40.802 Other epilepsy, not intractable, without status epilepticus; M79.602 Pain in left arm; Z82.49 Family history of ischemic heart disease and other diseases of the circulatory system; Z79.899 Other long term (current) drug therapy; F84.5 Asperger's syndrome
CPT/HCPCS: 71045; 80048; 84484; 85025; 93005; 96374; 99284; A4216

== ENCOUNTER 2023-08-04 20:13 | Emergency (ER) | payer MEDICARE, MEDICAID, SELFPAY ==
[2023-08-04 20:15] VITALS: BP 126/78; PULSE 98; RESP 16; TEMP 36; O2SAT 95; BMI 46.5
--- NOTE | 2023-08-04 20:33 | EX.ED.VIS.PS ---
HPI HPI - Psych History of Present Illness Chief Complaint: Suicidal Narrative Narrative: 47-year-old male with history of schizophrenia, bipolar disorder, anxiety, depression, PTSD presenting with suicidal thoughts. His family states this thoughts been racing all week. They state that recently they were taken to court to try to take him away from the home because they did not think his mother could care for him and in addition to this his neighbor who is his best friend moved away and he changes it made him internally stimulated and is mom states his thoughts been racing all week. Today he was on a field trip to the [employer] and was not wanting to tell the staff there that he was feeling the spots. When he got home he was not acting normally he was very quiet did not want talk to his mom which she thought was abnormal and after talking to realize that he has suicidal thoughts that are worsening and he has a plan to cut his hand off. No previous attempts with the patient has been admitted several times due to these thoughts. [facility] Medical History Paranoia PTSD (post-traumatic stress disorder) Schizophrenia Bipolar 1 disorder Pneumonia Back pain Seizures Asthma Knee pain Psychiatric pseudoseizure Petit mal epilepsy ADHD (attention deficit hyperactivity disorder) Partial agenesis of corpus callosum Aspergers' syndrome Home Medications ?Medication ?Instructions ?Recorded ?Last Taken ?Type omeprazole 40 mg capsule,delayed 40 mg PO DAILY 12/24/15 Unknown History release lamotrigine 200 mg tablet 200 mg PO BID 11/19/20 Unknown History paliperidone 6 mg tablet,extended 3 mg PO QHS 06/02/22 Unknown History release 24 hr paliperidone palm (3 month) 819 819 mg IM Q3M 06/02/22 05/31/22 History mg/2.63 mL intramuscular syringe (Invega Trinza) albuterol sulfate 90 mcg/actuation 2 puff inhalation Q6H PRN 04/17/23 Unknown History aerosol inhaler shortness of breath or wheezing bisacodyl 5 mg tablet,delayed 5 mg PO DAILY PRN constipation 04/17/23 Unknown History release (Dulcolax (bisacodyl)) dicyclomine 10 mg capsule 10 mg PO TID 04/17/23 Unknown History docusate sodium 100 mg capsule 100 mg PO DAILY 04/17/23 Unknown History (Colace) lidocaine 5 % topical patch 1 patch transdermal DAILY 04/17/23 Unknown History lithium carbonate 300 mg capsule 300 mg PO QHS 04/17/23 Unknown History sertraline 100 mg tablet 100 mg PO Q24H 04/17/23 Unknown History triamcinolone acetonide 0.1 % 1 applic topical BID PRN muscle 04/17/23 Unknown History topical ointment relaxer urea 40 % topical cream 1 applic topical DAILY 04/17/23 Unknown History naproxen 500 mg tablet (Naprosyn) 500 mg PO BID PRN pain #20 tabs 07/31/23 Unknown Rx prednisone 20 mg tablet 40 mg (2 x 20 mg) PO DAILY #8 tabs 07/31/23 Unknown Rx Allergy/AdvReac Type Severity Reaction Status Date / Time bee venom protein (honey bee) Allergy Anaphylaxis Verified 08/04/23 20:15 carbamazepine (From Tegretol) Allergy Unknown Verified 08/04/23 20:15 divalproex sodium (From Allergy Other Verified 08/04/23 20:15 Depakote) methylphenidate (From Allergy Unknown Verified 08/04/23 20:15 Concerta) methylphenidate HCl (From Allergy Unknown Verified 08/04/23 20:15 Ritalin) phenobarbital Allergy Hives Verified 08/04/23 20:15 Family History Other Asthma Diabetes Hypertension Kidney disease Surgical History Hx of cholecystectomy Hx of tympanostomy tubes H/O hernia repair Social History household members: family housing: house Smoking Status: Never smoker alcohol intake: never ROS ROS ED Constitutional Constitutional ED: Denies chills, fever(s) or sweats Eyes Eyes: Denies blurry vision or change in vision ENT ENT ED: Denies ear pain or sore throat Cardiovascular Cardiovascular: Denies chest pain, palpitations or racing heartbeat Respiratory/Chest Respiratory/Chest: Denies cough, dyspnea or sputum Gastrointestinal Gastrointestinal: Denies abdominal pain, constipation, diarrhea, nausea or vomiting Genitourinary Genitourinary ED: Denies dysuria, hematuria or urinary frequency Musculoskeletal Musculoskeletal: Denies arthralgias, myalgias or neck pain Integumentary Denies abscess, Abrasions or rash Neurologic Neurologic: Denies headache(s), paresthesias or weakness Psychiatric Psychiatric: Reports anxiety, depression and suicidal thoughts Endocrine Endocrinology: Denies polydipsia or polyuria EXAM Physical Exam Const Vital Signs: 08/04/23 20:15 08/04/23 21:14 Temperature 96.8 F L Temperature Source Temporal Pulse Rate 98 Respiratory Rate 16 16 Blood Pressure 126/78 H Blood Pressure Mean 94 Pulse Ox 95 Oxygen Delivery Method Room Air Positive well nourished General Appearance ED: NAD; Negative for pallor HEENT normocephalic and atraumatic Eyes PERRL and EOMs intact bilaterally Resp normal respiratory effort Auscultation: Negative for rales, rhonchi or wheezes Neuro oriented x3 and CN's II-XII intact bilaterally Sensorium / Orientation: alert Motor Exam: strength 5/5 throughout Psych Appearance: grossly normal Attitude: calm Activity / Motor Behavior: appropriate eye contact Thought Content: suicidality, No homicidality, No delusion(s) and No hallucination(s) Attention / Concentration: attention grossly intact Memory / Cognition: memory grossly intact Insight: limited Judgement: limited Skin General Skin Exam: Negative for jaundice or pallor MDM MDM MDM Narrative Medical decision making narrative: Patient presenting with suicidal thoughts and a plan to cut his hand on. Medical screening labs will be obtained.. Will obtain crisis consult. CBC of white blood cell count 1.6, hemoglobin 12. Platelets are normal at 326, renal function electrolytes within normal limits. [place] level therapeutic at 0.6, EtOH less than 3. Patient medically clear at this point. Awaiting talk screen. The patient and his mom both feel that he needs to be hospitalized. Discussed with the crisis counselor. Will plan to admit the patient. Patient was pink slipped. Patient will be transferred once he is accepted. He will be signed out to incoming ED physician for monitoring. Impression: 1. Suicidal thoughts Lab Data Labs: Laboratory Results - last 24 hr 08/04/23 20:54 WBC 11.6 H RBC 4.43 L Hgb 12.0 L Hct 37.3 L MCV 84.2 MCH 27.1 MCHC 32.2 RDW Std Deviation 42.0 RDW Coeff of Nano 13.6 Plt Count 326 MPV 8.9 Immature Gran % (Auto) 0.300 Neut % (Auto) 60.5 Lymph % (Auto) 31.7 [place] % (Auto) 7.4 Eos % (Auto) 0.0 Baso % (Auto) 0.1 Absolute Neuts (auto) 7.0 Absolute Lymphs (auto) 3.67 Nucleated RBC % 0 Sodium 137 Potassium 3.5 Chloride 106 Carbon Dioxide 26.0 Anion Gap 5 BUN 15 Creatinine 0.86 Estim Creat Clear Calc 178.56 Est GFR (MDRD) Af Amer 135 Est GFR (MDRD) Non-Af 111 BUN/Creatinine Ratio 17.5 Glucose 107 H Calcium 9.2 [place] 0.60 Ur Drug Screen Comment Ethyl Alcohol < 3.0 Discharge Plan Triage Chief Complaint: Suicidal ED Provider: Cliff Nunn Dx/Rx/DC Orders Prescriptions: No Action omeprazole 40 MG capsule 40 mg PO DAILY lamotrigine 200 mg tablet 200 mg PO BID paliperidone 6 mg tablet extended release 24hr 3 mg PO QHS Invega Trinza 819 mg/2.63 mL syringe 819 mg IM Q3M lidocaine 5 % adhesive patch,medicated 1 patch transdermal DAILY Patient Comments: apply 1 patch as directed every 12 hours REMOVE OLD patch PRIOR T... (REFER TO PRESCRIPTION NOTES). left leg albuterol sulfate 90 mcg/actuation HFA aerosol inhaler 2 puff INHALATION Q6H PRN (Reason: shortness of breath or wheezing) Patient Comments: inhale 2 puffs by mouth INSTRUCTED EVERY 6 HOURS NEEDED lithium carbonate 300 mg capsule 300 mg PO QHS dicyclomine 10 mg capsule 10 mg PO TID Patient Comments: take 1 capsule by mouth before meals and AT BEDTIME sertraline 100 mg tablet 100 mg PO Q24H triamcinolone acetonide 0.1 % ointment 1 applic TOPICAL BID PRN (Reason: muscle relaxer) Patient Comments: apply to affected area twice a day left upper thigh urea 40 % cream 1 applic TOPICAL DAILY Patient Comments: apply to affected area once daily bilat feet docusate sodium [Colace] 100 mg capsule 100 mg PO DAILY bisacodyl [Dulcolax (bisacodyl)] 5 mg tablet,delayed release (DR/EC) 5 mg PO DAILY PRN (Reason: constipation) prednisone 20 mg tablet 40 mg PO DAILY Qty: 8 0RF naproxen [Naprosyn] 500 mg tablet 500 mg PO BID PRN (Reason: pain) Qty: 20 0RF Primary Care Provider: Turner Quick Referrals: Turner Quick MD [Primary Care Provider] - Print Language: Bengali
--- NOTE | 2023-08-04 20:41 | ED.RN ---
Per Dr. Nunn no sitter needed.
[2023-08-04 21:06] LABS: Absolute Lymphocyte Count 3.67 X10^3/uL (0.83-4.51); Basophil# 0.01 X10^3/uL; Basophil% 0.1 % (0-1); Hematocrit 37.3 % (40-54); Lymphocyte # 3.67 X10^3/ul (0.83-4.51); Lymphocyte % 31.7 % (19-41); Mean Corp Hgb Conc 32.2 g/dL (32-36); Mean Corpuscular Hgb 27.1 pg (27.0-32.0); Mean Corpuscular Volume 84.2 fL (80-94); Mean Platelet Vol. 8.9 fl (6.2-12.0); Monocyte# 0.86 X10^3/uL; Monocyte% 7.4 % (0-10); NRBC Flagged by Analyzer 0 % (0-5); Neutrophil # 7.01 X10^3/uL (2.7-7.7); Neutrophil % 60.5 % (47-70); Platelet Count 326 K/mm3 (150-450); RBC Distribution Width CV 13.6 % (11.6-14.6); Red Blood Count 4.43 M/mm3 (4.6-6.2); White Blood Count 11.6 K/mm3 (4.4-11.0)
[2023-08-04 21:14] VITALS: RESP 16
[2023-08-04 21:20] LABS: Anion Gap 5 (5-15); BUN 15 mg/dL (7-18); BUN/Creat Ratio 17.5 RATIO (10-20); Calcium,Total 9.2 mg/dL (8.5-10.1); Chloride 106 mmol/L (98-107); Creatinine, Serum 0.86 mg/dL (0.70-1.30); EST Glomerular Filtration Rate 111 mL/min (>60); Est Glom Filt Rate - Afr Amer 135 mL/min (>60); Estimated Creatinine Clearance 178.56 ml/min; Glucose 107 mg/dL (74-106); Potassium 3.5 mmol/L (3.5-5.1); Sodium Level 137 mmol/L (136-145)
[2023-08-04 21:28] LABS: Alcohol, Blood (Medical)-Serum < 3.0 mg/dL
[2023-08-04 21:45] LABS: Amphetamine Urine VISTA NEGATIVE (<1000 ng/mL); Barbiturate Urine VISTA NEGATIVE (< 200 ng/mL); Benzodiazepine Urine VISTA NEGATIVE (< 200 ng/mL); Cocaine Urine VISTA NEGATIVE (< 300 ng/mL); Ecstacy Urine VISTA NEGATIVE (< 500 ng/mL); Methadone Urine VISTA NEGATIVE (< 300 ng/mL); PCP Urine VISTA NEGATIVE (< 25 ng/mL); THC Urine VISTA NEGATIVE (< 50 ng/mL); Vista UDS pH Range 6
[2023-08-04 22:00] VITALS: RESP 18
[2023-08-04 23:00] VITALS: RESP 16
--- NOTE | 2023-08-05 01:24 | ED.RN ---
PT ACCEPTED AT [place] [facility] [employer] [facility] [id number] [phone] SHIRIN JHAVERI 7AM
[2023-08-05 03:25] VITALS: BP 124/60; PULSE 88; RESP 16; TEMP 36.7; O2SAT 97
[2023-08-05 03:30] VITALS: BP 124/60; PULSE 88; RESP 16; O2SAT 95
== END 2023-08-05 06:49 ==
LOC: ED 20:32
PROVIDERS: Emergency Provider Student in an Organized Health Care Education/Training Program; PCP Family Medicine; Visit Provider Student in an Organized Health Care Education/Training Program
DX: R45.851 Suicidal ideations (principal); F20.9 Schizophrenia, unspecified; F31.9 Bipolar disorder, unspecified; F41.9 Anxiety disorder, unspecified; F90.9 Attention-deficit hyperactivity disorder, unspecified type; Z90.49 Acquired absence of other specified parts of digestive tract; J45.909 Unspecified asthma, uncomplicated; Z79.899 Other long term (current) drug therapy
CPT/HCPCS: 80048; 80178; 80307; 80320; 85025; 99284; G0480

== ENCOUNTER → 2023-09-09 | Outpatient (CLI) | payer MEDICARE, MEDICAID, SELFPAY ==
[2023-09-09 12:23] LABS: Lithium < 0.20 mmol/L (0.60-1.20)
[2023-09-09 21:43] LABS: AST(SGOT) 14 U/L (15-37); Alanine Aminotransfer ALT/SGPT 26 U/L (16-61); Albumin, Serum 3.5 g/dL (3.2-5.0); Alkaline Phosphatase 88 U/L (45-117); Anion Gap 6 (5-15); BUN 11 mg/dL (7-18); BUN/Creat Ratio 17.3 RATIO (10-20); Calcium,Total 9.1 mg/dL (8.5-10.1); Chloride 108 mmol/L (98-107); Creatinine, Serum 0.64 mg/dL (0.70-1.30); EST Glomerular Filtration Rate 157 mL/min (>60); Est Glom Filt Rate - Afr Amer 190 mL/min (>60); Globulin 3.5 g/dL (2.2-4.2); Glucose 99 mg/dL (74-106); Potassium 3.8 mmol/L (3.5-5.1); Sodium Level 139 mmol/L (136-145); Thyroid Stim Hormone (TSH) 1.54 uIU/mL (0.358-3.74)
[2023-09-10 01:31] LABS: Prolactin 31.7 ng/mL
== END | disposition home or self-care (01) ==
LOC: LAB 10:19
PROVIDERS: PCP Family Medicine; Referring Provider Registered Nurse; Visit Provider Registered Nurse
DX: F25.0 Schizoaffective disorder, bipolar type (principal); Z79.899 Other long term (current) drug therapy
CPT/HCPCS: 36415; 80053; 80178; 84146; 84443

== ENCOUNTER 2023-11-27 14:07 | Emergency (ER) | payer MEDICARE, MEDICAID, SELFPAY ==
[2023-11-27] VITALS (9 sets, daily range): BP systolic 123–140; BP diastolic 69–86; PULSE 84–94; RESP 16–23; TEMP 35.8–36.2; O2SAT 90–97; BMI 47.2
--- NOTE | 2023-11-27 14:15 | EX.ED.DYSGE1 ---
HPI History of Present Illness Chief Complaint: Palpitations Informant: patient Onset/Context/Timing Onset: Today Context: Sudden Onset Timing: Continuous Quality: Skipping Location: Chest Worsened by: Nothing Relieved by: Nothing Narrative Narrative: Patient presents with palpitations that began today. Patient states that it began rather suddenly. Patient states he was not doing anything strenuous when they began. Patient states it feels like his heart is skipping. Patient states nothing makes it better and nothing makes it worse. Patient denies any chest pain. Patient admits to some shortness of breath. Patient also admits to some pain in his back. Patient denies any fevers or chills. Patient denies any diaphoresis. [facility] Medical History Paranoia PTSD (post-traumatic stress disorder) Schizophrenia Bipolar 1 disorder Pneumonia Back pain Seizures Asthma Knee pain Psychiatric pseudoseizure Petit mal epilepsy ADHD (attention deficit hyperactivity disorder) Partial agenesis of corpus callosum Aspergers' syndrome Home Medications ?Medication ?Instructions ?Recorded ?Last Taken ?Type omeprazole 40 mg capsule,delayed 40 mg PO DAILY 12/24/15 Unknown History release lamotrigine 200 mg tablet 200 mg PO BID 11/19/20 Unknown History paliperidone 6 mg tablet,extended 3 mg PO QHS 06/02/22 Unknown History release 24 hr paliperidone palm (3 month) 819 819 mg IM Q3M 06/02/22 05/31/22 History mg/2.63 mL intramuscular syringe (Invega Trinza) albuterol sulfate 90 mcg/actuation 2 puff inhalation Q6H PRN 04/17/23 Unknown History aerosol inhaler shortness of breath or wheezing bisacodyl 5 mg tablet,delayed 5 mg PO DAILY PRN constipation 04/17/23 Unknown History release (Dulcolax (bisacodyl)) dicyclomine 10 mg capsule 10 mg PO TID 04/17/23 Unknown History docusate sodium 100 mg capsule 100 mg PO DAILY 04/17/23 Unknown History (Colace) lidocaine 5 % topical patch 1 patch transdermal DAILY 04/17/23 Unknown History lithium carbonate 300 mg capsule 300 mg PO QHS 04/17/23 Unknown History sertraline 100 mg tablet 100 mg PO Q24H 04/17/23 Unknown History triamcinolone acetonide 0.1 % 1 applic topical BID PRN muscle 04/17/23 Unknown History topical ointment relaxer urea 40 % topical cream 1 applic topical DAILY 04/17/23 Unknown History Allergy/AdvReac Type Severity Reaction Status Date / Time bee venom protein (honey bee) Allergy Anaphylaxis Verified 08/04/23 20:15 carbamazepine (From Tegretol) Allergy Unknown Verified 08/04/23 20:15 divalproex sodium (From Allergy Other Verified 08/04/23 20:15 Depakote) methylphenidate (From Allergy Unknown Verified 08/04/23 20:15 Concerta) methylphenidate HCl (From Allergy Unknown Verified 08/04/23 20:15 Ritalin) phenobarbital Allergy Hives Verified 08/04/23 20:15 Family History Other Asthma Diabetes Hypertension Kidney disease Surgical History Hx of cholecystectomy Hx of tympanostomy tubes H/O hernia repair Social History household members: family housing: house Smoking Status: Never smoker alcohol intake: never ROS ROS ED Constitutional Constitutional ED: Denies chills or fever(s) Eyes Eyes: Denies blurry vision or change in vision ENT ENT ED: Denies rhinorrhea or sore throat Cardiovascular Cardiovascular: Reports palpitations; Denies chest pain Respiratory/Chest Respiratory/Chest: Reports dyspnea; Denies cough Gastrointestinal Gastrointestinal: Denies nausea or vomiting Genitourinary Genitourinary ED: Denies dysuria or hematuria Musculoskeletal Musculoskeletal: Reports back pain; Denies neck pain Integumentary Denies abscess or rash Neurologic Neurologic: Denies headache(s) or weakness Allergic/Immunologic Allergic/Immunologic ED: Denies mouth swelling or urticaria EXAM Physical Exam Const Vital Signs: 11/27/23 14:08 11/27/23 14:18 11/27/23 14:31 Temperature 97.2 F L Temperature Source Temporal Pulse Rate 94 Respiratory Rate 23 H Respiratory Effort Short of Breath Blood Pressure 135/82 H Blood Pressure Mean 99 Pulse Ox 90 92 Oxygen Delivery Method Room Air Nasal Cannula Oxygen Flow Rate (L/min) 2 11/27/23 15:08 11/27/23 16:00 11/27/23 16:26 Temperature Temperature Source Pulse Rate 93 94 Respiratory Rate 18 18 Respiratory Effort Blood Pressure 140/86 H 134/78 H Blood Pressure Mean 104 96 Pulse Ox 93 93 94 Oxygen Delivery Method Room Air Nasal Cannula Nasal Cannula Oxygen Flow Rate (L/min) 2 1 11/27/23 16:26 11/27/23 17:00 Temperature Temperature Source Pulse Rate 93 88 Respiratory Rate 18 17 Respiratory Effort Blood Pressure Blood Pressure Mean Pulse Ox 93 Oxygen Delivery Method Nasal Cannula Oxygen Flow Rate (L/min) 2 Positive well nourished and well developed General Appearance ED: well developed and NAD HEENT Reports moist mucous membranes Neck supple and no JVD Chest Wall Chest Narrative: There is mild tenderness over the right parasternal area. There is no bony crepitance or step-off. There is no subcutaneous emphysema noted. Resp normal respiratory effort and clear to auscultation bilaterally Cardio regular rate and regular rhythm GI non-tender and non-distended Palpation: soft Extremity normal to inspection General Extremety ED: Negative for edema or tenderness General Extremity: Negative for edema Neuro oriented x3, CN's II-XII intact bilaterally and no sensory deficits noted Sensorium / Orientation: alert Motor Exam: strength 5/5 throughout Psych mental status grossly normal MDM MDM MDM Narrative Medical decision making narrative: Differential diagnosis includes cardiac dysrhythmia, cardiac ischemia, pneumonia, pneumothorax, electrolyte abnormality, and anxiety. EKG will be obtained to assess for cardiac dysrhythmia and cardiac ischemia. Chest x-ray will be obtained to assess for pneumonia and pneumothorax. CBC will be obtained to assess for leukocytosis and anemia. Basic metabolic profile will be obtained to assess for electrolyte abnormality and renal function. High-sensitivity troponin will be obtained to assess for cardiac ischemia. Lab Data Attestation: I reviewed the patient's lab results. Lab results narrative: CBC was reviewed and was within normal limits. Basic metabolic profile was reviewed and was essentially within normal limits. Serum magnesium level was reviewed and was normal at 1.9. TSH was reviewed and was normal at 0.904. Initial high-sensitivity troponin was reviewed and was normal at 4. 2-hour repeat high-sensitivity troponin was reviewed and was normal at 5. Labs: Laboratory Results - last 24 hr 11/27/23 11/27/23 14:40 16:29 WBC 6.1 RBC 5.08 Hgb 12.9 L Hct 40.1 MCV 78.9 L MCH 25.4 L MCHC 32.2 RDW Std Deviation 37.8 RDW Coeff of Nano 13.3 Plt Count 298 MPV 8.7 Immature Gran % (Auto) 0.500 Neut % (Auto) 70.4 H Lymph % (Auto) 22.9 [place] % (Auto) 6.2 Eos % (Auto) 0.0 Baso % (Auto) 0.0 Absolute Neuts (auto) 4.3 Absolute Lymphs (auto) 1.40 Nucleated RBC % 0 Sodium 141 Potassium 3.4 L Chloride 109 H Carbon Dioxide 26.0 Anion Gap 6 BUN 14 Creatinine 0.77 Estim Creat Clear Calc 199.25 Est GFR (MDRD) Af Amer 153 Est GFR (MDRD) Non-Af 127 BUN/Creatinine Ratio 18.3 Glucose 133 H Calcium 9.4 Magnesium 1.9 Troponin I High Sens 4 5 TSH 0.904 Radiography Chest X-Ray - ED: 1 View, Read by ED Physician, Read by Radiologist and No Acute Disease Diagnostic Testing: Clinical Impression(s) from Imaging Studies Chest X-Ray 11/27/23 14:25 IMPRESSION: No radiographic evidence of acute cardiopulmonary disease. Electronically Signed: Colt Zambrano MD at 15:12 EDT , Portable 1 view chest x-ray was obtained. On my independent interpretation, lung heck are clear. There is normal cardiac silhouette. Bony thorax is normal. There is no acute process noted. Radiologist also interpreted the x-ray and agrees. EKG Initial EKG: Attestation: I personally reviewed and interpreted this EKG as follows: Interpretation: Sinus Rhythm (92) and No Acute Injury Pattern Comments: EKG was obtained. On my independent interpretation, it showed a normal sinus rhythm with a rate of 92. HI interval, QRS interval, and QTc intervals were all normal. [place] was normal. There are no acute ST or T wave changes. Prior EKG tracings: available for review Prior: Unchanged (07/31/2023) Treatment and Re-Evaluation :: Patient was given a DuoNeb aerosol here. Patient was given aspirin. Patient is feeling better on reevaluation. Patient ambulated in the emergency department and maintain oxygen saturation of 91% or better. Patient was advised of his findings. Patient has a HEART score of 0. Patient was advised that this is low risk for acute cardiac event. Patient was instructed to follow-up with his primary care physician in 5 to 7 days. Patient was instructed return if worse in any way. Patient understood and was agreeable with the plan. All questions were answered. Discharge Plan Triage Chief Complaint: Palpitations Other Complaint: Chest Pain ED Provider: Alex Membreno Dx/Rx/DC Orders Clinical Impression: Heart palpitations, Chest pain Instructions: ED Palpitations Prescriptions: No Action omeprazole 40 MG capsule 40 mg PO DAILY lamotrigine 200 mg tablet 200 mg PO BID paliperidone 6 mg tablet extended release 24hr 3 mg PO QHS Invega Trinza 819 mg/2.63 mL syringe 819 mg IM Q3M lidocaine 5 % adhesive patch,medicated 1 patch transdermal DAILY Patient Comments: apply 1 patch as directed every 12 hours REMOVE OLD patch PRIOR T... (REFER TO PRESCRIPTION NOTES). left leg albuterol sulfate 90 mcg/actuation HFA aerosol inhaler 2 puff INHALATION Q6H PRN (Reason: shortness of breath or wheezing) Patient Comments: inhale 2 puffs by mouth INSTRUCTED EVERY 6 HOURS NEEDED lithium carbonate 300 mg capsule 300 mg PO QHS dicyclomine 10 mg capsule 10 mg PO TID Patient Comments: take 1 capsule by mouth before meals and AT BEDTIME sertraline 100 mg tablet 100 mg PO Q24H triamcinolone acetonide 0.1 % ointment 1 applic TOPICAL BID PRN (Reason: muscle relaxer) Patient Comments: apply to affected area twice a day left upper thigh urea 40 % cream 1 applic TOPICAL DAILY Patient Comments: apply to affected area once daily bilat feet docusate sodium [Colace] 100 mg capsule 100 mg PO DAILY bisacodyl [Dulcolax (bisacodyl)] 5 mg tablet,delayed release (DR/EC) 5 mg PO DAILY PRN (Reason: constipation) Primary Care Provider: Turner Quick Referrals: Turner Quick MD [Primary Care Provider] - 5-7 Days Print Language: Romansh Disposition Disposition: Home, Self Care
--- NOTE | 2023-11-27 14:16 | ED.RN ---
Dr. Membreno bedside
--- NOTE | 2023-11-27 14:25 | RAD_ITS ---
EXAM: XR CHEST, 1 VIEW CLINICAL INDICATION: chest pain TECHNIQUE: Frontal view of the chest. COMPARISON: 6.04.23 FINDINGS: LUNGS AND PLEURAL SPACES: Unremarkable. No consolidation or edema. No pneumothorax. No effusion. HEART: Unremarkable. Cardiac silhouette not enlarged. MEDIASTINUM: Central airways and mediastinal contour are unremarkable. BONES/JOINTS: Unremarkable. No acute fracture. SOFT TISSUES: Unremarkable. RAD/Chest 1 View (Portable) IMPRESSION: No radiographic evidence of acute cardiopulmonary disease. Electronically Signed: Colt Zambrano MD at 15:12 EDT ,
--- NOTE | 2023-11-27 14:25 | EKG12_ITS ---
Test Reason : PALPS Blood Pressure : / mmHG Vent. Rate : 092 BPM Atrial Rate : 092 BPM P-R Int : 152 ms QRS Dur : 096 ms QT Int : 348 ms P-R-T Axes : 025 022 035 degrees QTc Int : 430 ms Normal sinus rhythm Normal ECG Confirmed by RUDY BROOKS MD ([id number]), school photograph editor PREET LEON ([id number]) on 11/29/2023 6:31:04 AM Referred By: Confirmed By:RUDY BROOKS MD
[2023-11-27] MEDS: Aspirin 81 MG TAB.CHEW 324 MG PO (14:29)
[2023-11-27 14:46] LABS: Absolute Neutrophil Count 4.3 X10^3/uL (2.0-7.7); Hematocrit 40.1 % (40-54); Hemoglobin 12.9 g/dL (13.0-16.5); Lymphocyte % 22.9 % (19-41); Mean Corp Hgb Conc 32.2 g/dL (32-36); Mean Corpuscular Hgb 25.4 pg (27.0-32.0); Mean Corpuscular Volume 78.9 fL (80-94); Mean Platelet Vol. 8.7 fl (6.2-12.0); Monocyte# 0.38 X10^3/uL; Monocyte% 6.2 % (0-10); NRBC Flagged by Analyzer 0 % (0-5); Neutrophil # 4.31 X10^3/uL (2.7-7.7); Neutrophil % 70.4 % (47-70); Platelet Count 298 K/mm3 (150-450); RBC Distribution Width CV 13.3 % (11.6-14.6); RBC Distribution Width SD 37.8 fl (35.1-43.9); Red Blood Count 5.08 M/mm3 (4.6-6.2); White Blood Count 6.1 K/mm3 (4.4-11.0)
[2023-11-27 15:17] LABS: Anion Gap 6 (5-15); BUN 14 mg/dL (7-18); BUN/Creat Ratio 18.3 RATIO (10-20); Calcium,Total 9.4 mg/dL (8.5-10.1); Chloride 109 mmol/L (98-107); Creatinine, Serum 0.77 mg/dL (0.70-1.30); EST Glomerular Filtration Rate 127 mL/min (>60); Est Glom Filt Rate - Afr Amer 153 mL/min (>60); Estimated Creatinine Clearance 199.25 ml/min; Glucose 133 mg/dL (74-106); Magnesium 1.9 mg/dL (1.6-2.6); Potassium 3.4 mmol/L (3.5-5.1); Sodium Level 141 mmol/L (136-145); Thyroid Stim Hormone (TSH) 0.904 uIU/mL (0.358-3.740); Troponin-I HS (w/2H Reflex) 4 pg/mL (3.0-78.0)
--- NOTE | 2023-11-27 16:08 | ED.RN ---
Dr. Membreno notified of patient's on 2L NC at 93%. Physician to place orders.
[2023-11-27] MEDS: Ipratropium/Albuterol Sulfate 3 ML AMPUL.NEB INHALATION (16:25)
[2023-11-27 16:43] LABS: Reflex Troponin-HS? (from REC) Y
[2023-11-27 17:21] LABS: Troponin-I HS 5 pg/mL (3.0-78.0)
== END 2023-11-27 18:20 | disposition home or self-care (01) ==
PROVIDERS: Emergency Provider Emergency Medicine; PCP Family Medicine; Visit Provider Emergency Medicine
DX: R00.2 Palpitations (principal); F20.9 Schizophrenia, unspecified; F31.9 Bipolar disorder, unspecified; G40.A09 Absence epileptic syndrome, not intractable, without status epilepticus; R07.9 Chest pain, unspecified; Z79.899 Other long term (current) drug therapy; F43.10 Post-traumatic stress disorder, unspecified; Z90.49 Acquired absence of other specified parts of digestive tract
CPT/HCPCS: 71045; 80048; 83735; 84443; 84484; 85025; 93005; 94640; 99284; A4216

== ENCOUNTER 2023-12-15 16:10 | Emergency (ER) | payer MEDICARE, MEDICAID, SELFPAY ==
[2023-12-15 16:11] VITALS: BP 163/94; PULSE 86; RESP 18; TEMP 37.1; O2SAT 95; BMI 46.6
--- NOTE | 2023-12-15 16:56 | EKG12_ITS ---
Test Reason : Blood Pressure : / mmHG Vent. Rate : 080 BPM Atrial Rate : 080 BPM P-R Int : 164 ms QRS Dur : 096 ms QT Int : 376 ms P-R-T Axes : 003 015 018 degrees QTc Int : 433 ms Normal sinus rhythm Normal ECG Confirmed by Anthony Houston ([id number]), editor school photograph JAZIEL PARKER ([id number]) on 12/16/2023 1:37:54 PM Referred By: Confirmed By:Anthony Houston
[2023-12-15 17:11] LABS: Absolute Lymphocyte Count 2.69 X10^3/uL (0.83-4.51); Absolute Neutrophil Count 5.7 X10^3/uL (2.0-7.7); Basophil# 0.01 X10^3/uL; Basophil% 0.1 % (0-1); Hematocrit 38.3 % (40-54); Hemoglobin 12.2 g/dL (13.0-16.5); Lymphocyte # 2.69 X10^3/ul (0.83-4.51); Lymphocyte % 29.2 % (19-41); Mean Corp Hgb Conc 31.9 g/dL (32-36); Mean Corpuscular Hgb 25.1 pg (27.0-32.0); Mean Corpuscular Volume 78.8 fL (80-94); Mean Platelet Vol. 9.1 fl (6.2-12.0); Monocyte# 0.79 X10^3/uL; Monocyte% 8.6 % (0-10); NRBC Flagged by Analyzer 0 % (0-5); Neutrophil # 5.67 X10^3/uL (2.7-7.7); Neutrophil % 61.7 % (47-70); Platelet Count 362 K/mm3 (150-450); RBC Distribution Width CV 14.3 % (11.6-14.6); RBC Distribution Width SD 40.2 fl (35.1-43.9); Red Blood Count 4.86 M/mm3 (4.6-6.2); White Blood Count 9.2 K/mm3 (4.4-11.0)
--- NOTE | 2023-12-15 17:18 | EX.ED.VIS.PS ---
HPI HPI - Psych History of Present Illness Chief Complaint: Suicidal Informant: patient Narrative Narrative: Patient states he has been in a care home for 2 weeks now because he lives with his mom and his mom is having health issues and cannot care for him anymore. He states he is happy about the place that he is in right now. He states today, the voices that he often hears, started telling him that he needs to kill himself, and he has trouble resisting the voices and wants to because of this. He states this was all of a sudden today. He states just prior to this he was at [employer] and having a good time. Denies any recent illness or injury. He states the voices were telling him to jump out in front of traffic. No new medications states he is compliant with his psychiatric medications. 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 Home Medications ?Medication ?Instructions ?Recorded ?Last Taken ?Type omeprazole 40 mg capsule,delayed 40 mg PO DAILY 12/24/15 Unknown History release lamotrigine 200 mg tablet 200 mg PO BID 11/19/20 Unknown History paliperidone 6 mg tablet,extended 3 mg PO QHS 06/02/22 Unknown History release 24 hr paliperidone palm (3 month) 819 819 mg IM Q3M 06/02/22 05/31/22 History mg/2.63 mL intramuscular syringe (Invega Trinza) albuterol sulfate 90 mcg/actuation 2 puff inhalation Q6H PRN 04/17/23 Unknown History aerosol inhaler shortness of breath or wheezing bisacodyl 5 mg tablet,delayed 5 mg PO DAILY PRN constipation 04/17/23 Unknown History release (Dulcolax (bisacodyl)) dicyclomine 10 mg capsule 10 mg PO TID 04/17/23 Unknown History docusate sodium 100 mg capsule 100 mg PO DAILY 04/17/23 Unknown History (Colace) lidocaine 5 % topical patch 1 patch transdermal DAILY 04/17/23 Unknown History lithium carbonate 300 mg capsule 300 mg PO QHS 04/17/23 Unknown History sertraline 100 mg tablet 100 mg PO Q24H 04/17/23 Unknown History triamcinolone acetonide 0.1 % 1 applic topical BID PRN muscle 04/17/23 Unknown History topical ointment relaxer urea 40 % topical cream 1 applic topical DAILY 04/17/23 Unknown History Allergy/AdvReac Type Severity Reaction Status Date / Time bee venom protein (honey bee) Allergy Anaphylaxis Verified 12/15/23 16:13 carbamazepine (From Tegretol) Allergy Unknown Verified 12/15/23 16:13 divalproex sodium (From Allergy Other Verified 12/15/23 16:13 Depakote) methylphenidate (From Allergy Unknown Verified 12/15/23 16:13 Concerta) methylphenidate HCl (From Allergy Unknown Verified 12/15/23 16:13 Ritalin) phenobarbital Allergy Hives Verified 12/15/23 16:13 Family History Other Asthma Diabetes Hypertension Kidney disease Surgical History Hx of cholecystectomy Hx of tympanostomy tubes H/O hernia repair Social History household members: family housing: house Smoking Status: Never smoker alcohol intake: never ROS ROS ED Constitutional Constitutional ED: Denies chills or fever(s) Eyes Eyes: Denies change in vision or diplopia ENT ENT ED: Denies rhinorrhea or sore throat Cardiovascular Cardiovascular: Denies chest pain or palpitations Respiratory/Chest Respiratory/Chest: Denies cough or dyspnea Gastrointestinal Gastrointestinal: Denies abdominal pain, diarrhea, nausea or vomiting Genitourinary Genitourinary ED: Denies dysuria or hematuria Musculoskeletal Musculoskeletal: Denies back pain or neck pain Integumentary Denies abscess or rash Neurologic Neurologic: Denies headache(s), paresthesias or weakness Psychiatric Psychiatric: Reports as per HPI, auditory hallucinations, depression and suicidal thoughts; Denies homicidal ideation EXAM Physical Exam Const Vital Signs: 12/15/23 16:11 12/15/23 18:00 Temperature 98.7 F Temperature Source Oral Pulse Rate 86 78 Respiratory Rate 18 16 Blood Pressure 163/94 H 134/77 H Blood Pressure Mean 117 96 Pulse Ox 95 94 Oxygen Delivery Method Room Air Room Air Positive well nourished and well developed General Appearance ED: well developed and NAD HEENT Reports moist mucous membranes normocephalic and atraumatic Eyes PERRL and EOMs intact bilaterally General Eye ED: Negative for scleral icterus Neck no lymphadenopathy and supple Resp normal respiratory effort and clear to auscultation bilaterally Cardio no murmurs Rate: regular rate Rhythm: regular rhythm GI non-tender and non-distended Auscultation: normoactive bowel sounds Palpation: soft Back/Spine no CVA tenderness and normal ROM Extremity normal to inspection General Extremety ED: Negative for edema General Extremity: Negative for edema Neuro oriented x3, CN's II-XII intact bilaterally, no sensory deficits noted and gait normal Sensorium / Orientation: alert Motor Exam: strength 5/5 throughout Psych mental status grossly normal, thought process normal, cooperative, activity/motor behavior normal and denies homicidal ideation Psych Narrative: Denies active suicidal ideation, but states voices are telling him to be suicidal Thought Content: hallucination(s) Positive for auditory Skin Lesions: no lesions Rashes: no rashes MDM MDM MDM Narrative Medical decision making narrative: Labs and toxicology all normal, I reviewed all of this. Patient is medically clear for psychiatric evaluation, crisis contacted. Crisis evaluated the patient and recommending placement, we are awaiting acceptance. Patient is cooperative. We have pink slipped him. Lab Data Attestation: I reviewed the patient's lab results. Labs: Laboratory Results - last 24 hr 12/15/23 16:27 WBC 9.2 RBC 4.86 Hgb 12.2 L Hct 38.3 L MCV 78.8 L MCH 25.1 L MCHC 31.9 L RDW Std Deviation 40.2 RDW Coeff of Nano 14.3 Plt Count 362 MPV 9.1 Immature Gran % (Auto) 0.400 Neut % (Auto) 61.7 Lymph % (Auto) 29.2 [place] % (Auto) 8.6 Eos % (Auto) 0.0 Baso % (Auto) 0.1 Absolute Neuts (auto) 5.7 Absolute Lymphs (auto) 2.69 Nucleated RBC % 0 Sodium 140 Potassium 3.7 Chloride 108 H Carbon Dioxide 25.0 Anion Gap 7 BUN 9 Creatinine 0.82 Estim Creat Clear Calc 191.47 Est GFR (MDRD) Af Amer 141 Est GFR (MDRD) Non-Af 116 BUN/Creatinine Ratio 10.9 Glucose 85 Calcium 9.2 Total Bilirubin 0.20 AST 16 ALT 28 Alkaline Phosphatase 96 Total Protein 7.6 Albumin 3.9 Globulin 3.7 Albumin/Globulin Ratio 1.1 Urine Opiates Screen NEGATIVE Urine Methadone Screen NEGATIVE Ur Barbiturates Screen NEGATIVE Ur Phencyclidine Scrn NEGATIVE Ur Amphetamines Screen NEGATIVE MDMA (Ecstasy) Screen NEGATIVE U Benzodiazepines Scrn NEGATIVE [place] 0.30 L Urine Cocaine Screen NEGATIVE U Cannabinoids Screen NEGATIVE Ur Drug Screen Comment Ethyl Alcohol < 3.0 Rhythm Strip Rhythm Strip: Sinus Rhythm Rate: 80 Ectopy: None EKG Initial EKG: Attestation: I personally reviewed and interpreted this EKG as follows: Interpretation: Sinus Rhythm and No Acute Injury Pattern Comments: nml intervals Management Discussion w/another healthcare provider: farmworker/Case management Discharge Plan Triage Chief Complaint: Suicidal ED Provider: Jonnie Boland Dx/Rx/DC Orders Clinical Impression: Suicidal ideation, Psychosis Prescriptions: No Action omeprazole 40 MG capsule 40 mg PO DAILY lamotrigine 200 mg tablet 200 mg PO BID paliperidone 6 mg tablet extended release 24hr 3 mg PO QHS Invega Trinza 819 mg/2.63 mL syringe 819 mg IM Q3M lidocaine 5 % adhesive patch,medicated 1 patch transdermal DAILY Patient Comments: apply 1 patch as directed every 12 hours REMOVE OLD patch PRIOR T... (REFER TO PRESCRIPTION NOTES). left leg albuterol sulfate 90 mcg/actuation HFA aerosol inhaler 2 puff INHALATION Q6H PRN (Reason: shortness of breath or wheezing) Patient Comments: inhale 2 puffs by mouth INSTRUCTED EVERY 6 HOURS NEEDED lithium carbonate 300 mg capsule 300 mg PO QHS dicyclomine 10 mg capsule 10 mg PO TID Patient Comments: take 1 capsule by mouth before meals and AT BEDTIME sertraline 100 mg tablet 100 mg PO Q24H triamcinolone acetonide 0.1 % ointment 1 applic TOPICAL BID PRN (Reason: muscle relaxer) Patient Comments: apply to affected area twice a day left upper thigh urea 40 % cream 1 applic TOPICAL DAILY Patient Comments: apply to affected area once daily bilat feet docusate sodium [Colace] 100 mg capsule 100 mg PO DAILY bisacodyl [Dulcolax (bisacodyl)] 5 mg tablet,delayed release (DR/EC) 5 mg PO DAILY PRN (Reason: constipation) Primary Care Provider: Turner Quick Referrals: Turner Quick MD [Primary Care Provider] - Print Language: Slovak Disposition Disposition: Psychiatric Hospital or Unit
[2023-12-15 17:25] LABS: ALB/GLOB Ratio 1.1 RATIO (0.9-2.4); AST(SGOT) 16 U/L (15-37); Alanine Aminotransfer ALT/SGPT 28 U/L (16-61); Albumin, Serum 3.9 g/dL (3.2-5.0); Alkaline Phosphatase 96 U/L (45-117); Anion Gap 7 (5-15); BUN 9 mg/dL (7-18); BUN/Creat Ratio 10.9 RATIO (10-20); Calcium,Total 9.2 mg/dL (8.5-10.1); Chloride 108 mmol/L (98-107); Creatinine, Serum 0.82 mg/dL (0.70-1.30); EST Glomerular Filtration Rate 116 mL/min (>60); Est Glom Filt Rate - Afr Amer 141 mL/min (>60); Estimated Creatinine Clearance 191.47 ml/min; Globulin 3.7 g/dL (2.2-4.2); Glucose 85 mg/dL (74-106); Potassium 3.7 mmol/L (3.5-5.1); Protein, Total 7.6 g/dL (6.4-8.2); Sodium Level 140 mmol/L (136-145)
[2023-12-15 17:29] LABS: Alcohol, Blood (Medical)-Serum < 3.0 mg/dL
[2023-12-15 18:00] VITALS: BP 134/77; PULSE 78; RESP 16; O2SAT 94
[2023-12-15 18:24] LABS: Amphetamine Urine VISTA NEGATIVE (<1000 ng/mL); Barbiturate Urine VISTA NEGATIVE (< 200 ng/mL); Benzodiazepine Urine VISTA NEGATIVE (< 200 ng/mL); Cocaine Urine VISTA NEGATIVE (< 300 ng/mL); Ecstacy Urine VISTA NEGATIVE (< 500 ng/mL); Methadone Urine VISTA NEGATIVE (< 300 ng/mL); PCP Urine VISTA NEGATIVE (< 25 ng/mL); THC Urine VISTA NEGATIVE (< 50 ng/mL); Vista UDS pH Range 6
--- NOTE | 2023-12-15 18:54 | ED.RN ---
CHART FAXED CRISIS CALLED
--- NOTE | 2023-12-15 22:33 | ED.RN ---
REFERRED TO [facility]
[2023-12-16 05:23] VITALS: BP 99/72; PULSE 74; RESP 15; O2SAT 94
[2023-12-16 09:29] LABS: CPK Total, Creatine Kinase 132 U/L (39-308)
[2023-12-16 13:00] VITALS: BP 124/78; PULSE 64; RESP 18; TEMP 36.6; O2SAT 99
--- NOTE | 2023-12-16 18:56 | CM.ED ---
Social Work Called Crisis and spoke WALTER Alston audit intern with Crisis. Alecia reports drake is continuing to work on finding psychiatric placement for patient. Patient does only have 5 lifetime [facility] mental health beds days available, which is a piece of finding a place to accept. Patient was just declined by [facility] in the last hour or so. Referral has been sent to [facility]. Alecia reports will be calling other hospitals as well. Discussed with Alecia need for 24 hour reassessment, which will be at about 1945 this evening. Crisis to keep the ED staff updated. Plan: Pending mental health placement, Crisis at [facility] working on this. -EMILIO Ricci
[2023-12-16 21:00] VITALS: PULSE 72; RESP 20; O2SAT 98
[2023-12-17 04:39] VITALS: BP 119/79; PULSE 61; RESP 16; O2SAT 93
--- NOTE | 2023-12-17 05:38 | ED.RN ---
This RN spoke to Dr. Boland regarding pt's home medications. RN informed pt has been in the ED for 37 hours and has not received any home medicatioins. Per DR. Boland, okay to give QHS and daily meds in AM prior to pt leaving for psych facility at 0900
[2023-12-17 05:59] VITALS: BP 119/79; PULSE 61; RESP 16; TEMP 36.6; O2SAT 93
[2023-12-17] MEDS: Dicyclomine 10 MG Capsule PO (06:33)
[2023-12-17] MEDS: Sertraline 100 MG Tablet PO (06:33)
[2023-12-17] MEDS: lamoTRIgine 100 MG Tablet 200 MG PO (06:33)
[2023-12-17] MEDS: Pantoprazole Sodium 40 MG Tablet PO ×2 (06:33)
[2023-12-17] MEDS: Lithium Carbonate 300mg Capsule 300 MG PO (06:34)
[2023-12-17] MEDS: Docusate Sodium 100 MG Capsule PO (06:34)
== END 2023-12-17 07:36 ==
PROVIDERS: Surgery; Emergency Provider Emergency Medicine; PCP Family Medicine; Visit Provider Emergency Medicine
DX: F29 Unspecified psychosis not due to a substance or known physiological condition (principal); F20.9 Schizophrenia, unspecified; F31.9 Bipolar disorder, unspecified; R45.851 Suicidal ideations; Z90.49 Acquired absence of other specified parts of digestive tract; Z79.899 Other long term (current) drug therapy
CPT/HCPCS: 80053; 80178; 80307; 82077; 82550; 85025; 93005; 99285

== ENCOUNTER 2024-01-03 14:01 | Emergency (ER) | payer MEDICARE, MEDICAID, SELFPAY ==
[2024-01-03 14:03] VITALS: BP 134/91; PULSE 91; RESP 18; TEMP 36.6; O2SAT 97; BMI 44.0
[2024-01-03 14:44] LABS: Absolute Neutrophil Count 4.1 X10^3/uL (2.0-7.7); Lymphocyte % 29.5 % (19-41); Mean Corp Hgb Conc 31.6 g/dL (32-36); Mean Corpuscular Hgb 24.9 pg (27.0-32.0); Mean Platelet Vol. 8.5 fl (6.2-12.0); Monocyte# 0.46 X10^3/uL; Monocyte% 7.1 % (0-10); NRBC Flagged by Analyzer 0 % (0-5); Neutrophil # 4.07 X10^3/uL (2.7-7.7); Neutrophil % 63.1 % (47-70); Platelet Count 341 K/mm3 (150-450); RBC Distribution Width CV 14.3 % (11.6-14.6); RBC Distribution Width SD 40.6 fl (35.1-43.9); Red Blood Count 4.81 M/mm3 (4.6-6.2); White Blood Count 6.5 K/mm3 (4.4-11.0)
[2024-01-03 14:59] LABS: Amphetamine Urine VISTA NEGATIVE (<1000 ng/mL); Barbiturate Urine VISTA NEGATIVE (< 200 ng/mL); Benzodiazepine Urine VISTA NEGATIVE (< 200 ng/mL); Cocaine Urine VISTA NEGATIVE (< 300 ng/mL); Ecstacy Urine VISTA NEGATIVE (< 500 ng/mL); Methadone Urine VISTA NEGATIVE (< 300 ng/mL); PCP Urine VISTA NEGATIVE (< 25 ng/mL); THC Urine VISTA NEGATIVE (< 50 ng/mL); Vista UDS pH Range 5
[2024-01-03 15:01] LABS: Anion Gap 7 (5-15); BUN 9 mg/dL (7-18); BUN/Creat Ratio 11.8 RATIO (10-20); Chloride 108 mmol/L (98-107); Creatinine, Serum 0.76 mg/dL (0.70-1.30); EST Glomerular Filtration Rate 128 mL/min (>60); Est Glom Filt Rate - Afr Amer 154 mL/min (>60); Estimated Creatinine Clearance 212.02 ml/min; Glucose 96 mg/dL (74-106); Potassium 3.6 mmol/L (3.5-5.1); Sodium Level 140 mmol/L (136-145)
[2024-01-03 19:30] VITALS: BP 133/85; PULSE 92; RESP 15; O2SAT 84
[2024-01-03 23:00] VITALS: BP 113/71; PULSE 71; RESP 16; O2SAT 96
[2024-01-04 03:00] VITALS: BP 110/61; PULSE 73; RESP 18; O2SAT 91
[2024-01-04 07:00] VITALS: BP 122/78; PULSE 78; RESP 22
[2024-01-04 11:09] VITALS: BP 122/78; PULSE 78; RESP 22; TEMP 36.6; O2SAT 91
== END 2024-01-04 11:13 ==
PROVIDERS: Emergency Provider Emergency Medicine; PCP Family Medicine; Visit Provider Emergency Medicine
DX: R45.851 Suicidal ideations (principal); F20.9 Schizophrenia, unspecified; F31.9 Bipolar disorder, unspecified; M79.671 Pain in right foot; M79.672 Pain in left foot; Z90.49 Acquired absence of other specified parts of digestive tract; F90.9 Attention-deficit hyperactivity disorder, unspecified type; F41.9 Anxiety disorder, unspecified; Z79.899 Other long term (current) drug therapy; F84.5 Asperger's syndrome
CPT/HCPCS: 73620; 80048; 80307; 82077; 85025; 93005; 99285

== ENCOUNTER → 2024-04-13 | Outpatient (CLI) | payer MEDICARE, MEDICAID, SELFPAY ==
[2024-04-13 09:45] LABS: Absolute Lymphocyte Count 1.66 X10^3/uL (0.83-4.51); Absolute Neutrophil Count 5.1 X10^3/uL (2.0-7.7); Basophil# 0.01 X10^3/uL; Basophil% 0.1 % (0-1); Hemoglobin 12.9 g/dL (13.0-16.5); Lymphocyte # 1.66 X10^3/ul (0.83-4.51); Mean Corp Hgb Conc 32.3 g/dL (32-36); Mean Corpuscular Hgb 25.5 pg (27.0-32.0); Mean Corpuscular Volume 79.1 fL (80-94); Mean Platelet Vol. 8.9 fl (6.2-12.0); Monocyte# 0.44 X10^3/uL; Monocyte% 6.1 % (0-10); NRBC Flagged by Analyzer 0 % (0-5); Neutrophil # 5.09 X10^3/uL (2.7-7.7); Neutrophil % 70.4 % (47-70); Platelet Count 349 K/mm3 (150-450); RBC Distribution Width CV 14.9 % (11.6-14.6); RBC Distribution Width SD 42.6 fl (35.1-43.9); Red Blood Count 5.06 M/mm3 (4.6-6.2); White Blood Count 7.2 K/mm3 (4.4-11.0)
[2024-04-13 10:16] LABS: ALB/GLOB Ratio 1.1 RATIO (0.9-2.4); AST(SGOT) 12 U/L (15-37); Alanine Aminotransfer ALT/SGPT 21 U/L (16-61); Albumin, Serum 3.8 g/dL (3.2-5.0); Alkaline Phosphatase 103 U/L (45-117); Anion Gap 5 (5-15); BUN 8 mg/dL (7-18); BUN/Creat Ratio 11.4 RATIO (10-20); Calcium,Total 9.3 mg/dL (8.5-10.1); Chloride 107 mmol/L (98-107); EST Glomerular Filtration Rate 140 mL/min (>60); Est Glom Filt Rate - Afr Amer 169 mL/min (>60); Globulin 3.6 g/dL (2.2-4.2); Glucose 92 mg/dL (74-106); Protein, Total 7.4 g/dL (6.4-8.2); Sodium Level 138 mmol/L (136-145); Thyroid Stim Hormone (TSH) 0.809 uIU/mL (0.358-3.740)
[2024-04-13 10:18] LABS: Vitamin D,25 Hydroxy 7.8 ng/mL
[2024-04-13 10:30] LABS: Hemoglobin A1c 5.6 % (3.8-5.6)
[2024-04-14 04:07] LABS: PROLACTIN 28.1 ng/mL (3.6-31.5)
== END | disposition home or self-care (01) ==
PROVIDERS: PCP Family Medicine; Referring Provider Registered Nurse; Visit Provider Registered Nurse
DX: E55.9 Vitamin D deficiency, unspecified (principal); Z79.899 Other long term (current) drug therapy; R53.83 Other fatigue
CPT/HCPCS: 36415; 80053; 80178; 82306; 83036; 84146; 84443; 85025

== ENCOUNTER 2024-10-22 18:02 | Emergency (ER) | payer MEDICARE, MEDICAID, SELFPAY ==
[2024-10-22 18:04] VITALS: BP 130/77; PULSE 70; RESP 16; TEMP 36.1; O2SAT 99
[2024-10-22 18:32] LABS: Hematocrit 36.9 % (40-54); Hemoglobin 12.1 g/dL (13.0-16.5); Immature Granulocytes Count 0.020 X10^3/uL (0.0-0.0); Mean Corp Hgb Conc 32.8 g/dL (32-36); Mean Corpuscular Volume 81.1 fL (80-94); Mean Platelet Vol. 9.1 fl (6.2-12.0); NRBC Flagged by Analyzer 0 % (0-5); Platelet Count 295 K/mm3 (150-450); RBC Distribution Width CV 14.6 % (11.6-14.6); RBC Distribution Width SD 42.5 fl (35.1-43.9); Red Blood Count 4.55 M/mm3 (4.6-6.2); White Blood Count 7.6 K/mm3 (4.4-11.0)
--- NOTE | 2024-10-22 18:32 | ED.RN ---
PER CRISIS, ASSESSMENT WAS COMPLETED IN THE COMMUNITY AND PATIENT WILL BE PLACED AT PSYCH FACILITY UPON COMPLETION OF MEDICAL CLEARANCE.
[2024-10-22 19:01] VITALS: BMI 35.1
--- NOTE | 2024-10-22 19:11 | EDS_ITS ---
HPI HPI - Psych History of Present Illness Chief Complaint: Suicidal Narrative Narrative: Patient is a 29-year-old male presenting to the emergency department for suicidal ideation with plan. Patient has a past medical history of depression, asthma and psychosis. Patient was at her long-term. His aide is at bedside. He states that for the past few weeks he has had auditory and visual hallucinations that are telling him to kill himself by either hanging himself or cutting his wrist. States that he told staff today which is why they then brought him in. He does have a history of a suicide attempt by hanging he reports. When asked what the auditory and visual hallucinations are he reports they are demonic. Denies any homicidal ideation or plan. Denies any delusions or paranoia. Denies any physical complaints. No recent medication changes. Reports that he takes all of his psychiatric medication as prescribed. [facility] Medical History Paranoia PTSD (post-traumatic stress disorder) Schizophrenia Bipolar 1 disorder Pneumonia Back pain Seizures Asthma Knee pain Psychiatric pseudoseizure Petit mal epilepsy ADHD (attention deficit hyperactivity disorder) Partial agenesis of corpus callosum Aspergers' syndrome Home Medications ?Medication ?Instructions ?Recorded ?Last Taken ?Type lamotrigine 200 mg tablet 200 mg PO BID 11/19/20 Unkno wn History paliperidone 6 mg tablet,extended 3 mg PO QHS 06/02/22 Unknown History release 24 hr albuterol sulfate 90 mcg/actuation 2 puff inhalation Q 6H PRN 04/17/23 Unknown History aerosol inhaler shortness of breath or wheez ing lithium carbonate 300 mg capsule 300 mg PO QHS 4 Unknown History sertraline 100 mg tablet 100 mg PO Q24H 04/17/23 Unkn own History urea 40 % topical cream 1 applic topical DAILY 04/17 Unknown History acetaminophen 500 mg tablet 1,000 mg PO Q6H PRN pain 0 10/22/24 Unknown History fluticasone propionate 50 spray intranasal 10/22/24 Un known History mcg/actuation nasal spray,suspension lithium carbonate 600 mg capsule 600 mg PO 10/22/24 Un known History loratadine 10 mg tablet 10 mg PO DAILY 10/22/24 Unkn own History Allergy/AdvReac Type Severity Reaction Status Date / Time bee venom protein (honey bee) Allergy Anaphylaxis Verified 10/22/24 18:04 carbamazepine (From Tegretol) Allergy Unknown Verified 10/22/24 18:04 divalproex sodium (From Allergy Other Verified 10/22/24 18:04 Depakote) methylphenidate (From Allergy Unknown Verified 10/22/24 18:04 Concerta) methylphenidate HCl (From Allergy Unknown Verified 10/22/24 18:04 Ritalin) phenobarbital Allergy Hives Verified 10/22/24 18:04 Family History Other Asthma Diabetes Hypertension Kidney disease Surgical History Hx of cholecystectomy Hx of tympanostomy tubes H/O hernia repair Social History household members: family housing: house Smoking Status: Never smoker alcohol intake: never EXAM Physical Exam Narrative Exam Narrative: Vital signs: Reviewed General: Alert and oriented. No acute distress HEENT: Head is normocephalic and atraumatic, sinuses nontender, pupils equal round and reactive. Nares are patent. Oropharynx and throat exams normal. Neck: Supple without lymphadenopathy nontender Cardiovascular: Regular rate and rhythm, no murmurs. No rubs or gallops. Normal S1 and S2 Respiratory: Clear to auscultation bilaterally. No wheezes, rales, rhonchi Abdominal: Soft and nontender. Normal bowel sounds. No guarding or rebound. Nonsurgical abdomen Extremities: No tenderness. No bruising. Normal range of motion. Normal sensation. Skin: No rash or redness. The rest of the physical exam is unremarkable Const Vital Signs: 10/22/24 18:04 10/22/24 19:46 Temperature 97 F L Temperature Source Temporal Pulse Rate 70 60 Respiratory Rate 16 18 Blood Pressure 130/77 H 116/70 Blood Pressure Mean 94 85 Pulse Ox 99 99 Oxygen Delivery Method Room Air Room Air Psych mental status grossly normal Appearance: grossly normal Attitude: calm, No uncooperative, No agitated and No aggressive Activity / Motor Behavior: appropriate eye contact Speech: normal speech Mood & Affect: flat affect Thought Process: normal thought process Thought Content: suicidality, No homicidality, No delusion(s) and hallucination(s) Attention / Concentration: attention grossly intact Memory / Cognition: memory grossly intact MDM MDM MDM Narrative Medical decision making narrative: Patient is a 29-year-old male presenting to the emergency department for suicidal ideation and plan. Patient seen and examined. Vitals are stable. Resting in bed comfortably no acute distress. Medical clearance labs were obtained. Crisis evaluated the patient and recommended inpatient psychiatric treatment in combination with my assessment. Signed out to oncoming physician pending placement. History & Record Review Discussion w/independent historian: Patient Lab Data Attestation: I reviewed the patient's lab results. Labs: Laboratory Results - last 24 hr 10/22/24 10/22/24 18:20 19:12 WBC 7.6 RBC 4.55 L Hgb 12.1 L Hct 36.9 L MCV 81.1 MCH 26.6 L MCHC 32.8 RDW Std Deviation 42.5 RDW Coeff of Nano 14.6 Plt Count 295 MPV 9.1 Immature Gran % (Auto) 0.300 Neut % (Auto) 67.4 Lymph % (Auto) 27.8 [place] % (Auto) 4.5 Eos % (Auto) 0.0 Baso % (Auto) 0.0 Absolute Neuts (auto) 5.1 Absolute Lymphs (auto) 2.10 Nucleated RBC % 0 Sodium 140 Potassium 3.8 Chloride 104 Carbon Dioxide 25.1 Anion Gap 12 BUN 9 Creatinine 0.77 Estim Creat Clear Calc 194.49 Est GFR (MDRD) Non-Af 123 BUN/Creatinine Ratio 12.2 Glucose 142 H Calcium 9.5 Urine Opiates Screen NEGATIVE U Buprenorphine Qual NEGATIVE Ur Oxycodone Screen NEGATIVE Urine Methadone Screen NEGATIVE Urine Fentanyl Screen NEGATIVE Ur Barbiturates Screen NEGATIVE Ur Phencyclidine Scrn NEGATIVE Ur Amphetamines Screen NEGATIVE U Benzodiazepines Scrn NEGATIVE Urine Cocaine Screen NEGATIVE U Cannabinoids Screen NEGATIVE Ethyl Alcohol < 10.1 Discharge Plan Triage Chief Complaint: Suicidal ED Provider: Jasmin Husain Dx/Rx/DC Orders Prescriptions: No Action lamotrigine 200 mg tablet 200 mg PO BID paliperidone 6 mg tablet extended release 24hr 3 mg PO QHS albuterol sulfate 90 mcg/actuation HFA aerosol inhaler 2 puff INHALATION Q6H PRN (Reason: shortness of breath or wheezing) Patient Comments: inhale 2 puffs by mouth INSTRUCTED EVERY 6 HOURS NEEDED lithium carbonate 300 mg capsule 300 mg PO QHS sertraline 100 mg tablet 100 mg PO Q24H urea 40 % cream 1 applic TOPICAL DAILY Patient Comments: apply to affected area once daily bilat feet acetaminophen 500 mg tablet 1,000 mg PO Q6H PRN (Reason: pain) lithium carbonate 600 mg capsule 600 mg PO fluticasone propionate 50 mcg/actuation spray,suspension INTRANASAL loratadine 10 mg tablet 10 mg PO DAILY Primary Care Provider: Turner Quick Referrals: Turner Quick MD [Primary Care Provider] - Print Language: Panamanian
[2024-10-22 19:38] LABS: Alcohol, Blood (Medical)-Serum < 10.1 mg/dL (<=10.0); Anion Gap 12 (5-15); BUN 9 mg/dL (4-19); BUN/Creat Ratio 12.2 RATIO (10-20); Calcium,Total 9.5 mg/dL (7.6-11.0); Carbon Dioxide 25.1 mmol/L (21.0-32.0); Chloride 104 mmol/L (98-108); Estimated Creatinine Clearance 194.49 ml/min (50-250); Glucose 142 mg/dL (70-99); Potassium 3.8 mmol/L (3.3-5.1)
[2024-10-22 19:41] LABS: Barbiturate Urine NEGATIVE (< 200 ng/mL); Benzodiazepine Urine NEGATIVE (< 200 ng/mL); PCP Urine NEGATIVE (< 25 ng/mL); THC Urine NEGATIVE (< 50 ng/mL)
--- OUTSIDE RECORDS SUMMARY | 2024-10-22 19:43 | XMS RPT_ITS | CCD ---
Author Organization [facility] Care Team Providers Care Supervisor Rice Milling Name Role Phone Ashleigh Kaplanin Attending Unavailabl e Horrigan, Ashleigh Alysa Attending Unavailabl e Horrigan, Ashleigh Alysa Attending Unavailabl e Horrigan, Ashleigh Alysa Attending Unavailabl e Horrigan, Ashleigh Alysa Attending Unavailabl e Horrigan, Ashleigh Alysa Attending Unavailabl e Horrigan, Ashleigh Alysa Attending Unavailabl e Horrigan, Ashleigh Alysa Attending Unavailabl e Turner Budny MD Primary Care Provider Turner Bundy MD Primary Care Provider Turner Bundy MD Primary Care Provider Pacer, Ms. Agata Muñiz Attending Unavailabl e Pacer, Ms. Agata Muñiz Attending Unavailabl e Pacer, Ms. Agata Muñiz Attending Unavailabl e Pacer, Ms. Agata Muñiz Attending Unavailabl e Pacer, Ms. Agata Muñiz Attending Unavailabl e Pacer, MsAna Cristina Muñiz Attending Unavailabl Turner Lance MD Primary Care Provider [phone] TANGELA PERSON Attending Unavailable TANGELA PERSON Admitting Unavailable TURNER BUNDY Primary Care Unavailable BOY ROCK Attending Unavailable BOY ROCK Admitting Unavailable [facility] Consulting TURNER Galindo Primary Care Unavailable Kyrie CHIEF COOK.Francy ERAZO Unavailable Suppan CHIEF COOK.Madalyn ERAZOline A Unavailable [phone] Suppan CHIEF COOK.CASTRO Angelina A Unavailable Jonnie Boland Attending Unavailable Turner Budny Primary Care Unavailable Mckinnon, Turner Primary Care Unavailable Alex Membreno Attending Unavailable Sisi Zavala Attending Unavailable Mckinnon, Turner Primary Care Unavailable Niharika, Turner Primary Care Unavailable Rafa CHEESE SPECIALIST, Dee Attending Unavailable Rafa CHEESE SPECIALIST, Dee Referring Unavailable Mckinnon, Turner Primary Care Unavailable Rafa CHEESE SPECIALIST, Dee Attending Unavailable Rafa CHEESE SPECIALIST, Dee Referring Unavailable Niharika, Turner Primary Care Unavailable Cliff Nunn Attending Unavailable Niharika, Turner Primary Care Unavailable Mitzi Carl Attending Unavailable LIZBETH, PAMELA Referring Unavailable NIHARIKA, TURNER Primary Care Unavailable KNLUBA, PAMELA Referring Unavailable NIHARIKA, TURNER Primary Care Unavailable NIHARIKA, TURNER Attending Unavailable NIHARIKA, TURNER Primary Care Unavailable NIHARIKA, TURNER Attending Unavailable NIHARIKA, TURNER Primary Care Unavailable NIHARIKA, TURNER Referring Unavailable NIHARIKA, TURNER Primary Care Unavailable KNLUBA, PAMELA Referring Unavailable NIHARIKA, TURNER Primary Care Unavailable NIHARIKA, TURNER Primary Care Unavailable JINA GAYLE Referring Unavailable NIHARIKA, TURNER Primary Care Unavailable NIHARIKA, TURNER Attending Unavailable NIHARIKA, TURNER Primary Care Unavailable FRANCY MITTAL Attending Unavailable NIHARIKA, TURNER Primary Care Unavailable FERN SOLARES Attending Unavailable TESTFERN LORA Referring Unavailable NIHARIKA, TURNER Primary Care Unavailable NIHARIKA, TURNER Primary Care Unavailable JATIN HERRERA Attending Unavailable ANGELINA CLAUDIO Attending Unavailable NIHARIKA, TURNER Primary Care Unavailable NIHARIKA, TURNER Primary Care Unavailable PAMELA NIEVES Attending Unavailable NIHARIKA, TURNER Primary Care Unavailable Allergies Allergy Classification Reported Allergen(s) Allergy Type Date of Onset Reaction(s) Facility Methylphenidate (4 sources) Methylphenidate Drug Allergy 01-09-20 05 Mental Status Change, Intolerance [facility] PHENobarbital (2 sources) PHENobarbital Drug Allergy 01-09-20 05 Intolerance [facility] Work Phone: Valproate (2 sources) Valproate Drug Allergy 07-09-19 21 Intolerance [facility] (20 sources) Methylphenidate; Translations: [METHYLPHENIDATE ANALOGUES] Drug Allergy 07-09-19 15 Other: See Comments, Mental Status Change [facility] (20 sources) Methylphenidate; Translations: [METHYLPHENIDATE HCL] Drug Allergy 01-09-20 05 Intolerance [facility] Work Phone: (20 sources) PHENobarbital; Translations: [PHENOBARBITAL] Drug Allergy 01-09-20 05 Intolerance [facility] Work Phone: (20 sources) Valproate; Translations: [DIVALPROEX] Drug Allergy 07-09-19 21 Intolerance [facility] (9 sources) carBAMazepine; Translations: [CARBAMAZEPINE] Drug Allergy 08-18-19 22 Unknown [facility] (5 sources) bee venom protein (honey bee) Allergy to substance 06-03-19 Anaphylaxis [facility] (2 sources) Methylphenidate; Translations: [METHYLPHENIDATE] Drug Allergy 01-03-20 [facility] (1 source) Milk; Translations: [MILK] Propensity to adverse reactions to drug (disorder) 01-04-20 [facility] (1 source) carBAMazepine Drug Allergy 01-03-20 [facility] (1 source) Methylphenidate Drug Allergy 01-03-20 [facility] (1 source) PHENobarbital Drug Allergy 01-03-20 [facility] (1 source) Valproate Drug Allergy 01-03-20 [facility] (1 source) bee venom protein (honey bee) Drug allergy (disorder) 01-03-20 [facility] Medications Current Medications Medication Drug Class(es) Dates Sig (Normalized) Sig (Original) acetaminophen 500 mg oral tablet (13 sources) Start: 02-15-2024 take 2 tablets by mouth every six hours as needed acetaminophen (TYLENOL EXTRA STRENGTH) 500 mg tablet Take 2 tablets by mouth every 6 hours as needed for pain. 60 tablet 02/15/2024 Active Start: 01-18-2024 End: 01-18-2024 take 2 tablets by mouth every six hours as needed acetaminophen (TYLENOL EXTRA STRENGTH) 500 mg tablet Take 2 tablets by mouth every 6 hours as needed for pain. 60 tablet 01/18/2024 01/18/2024 Discontinued (Patient chooses alternative therapy) Start: 01-18-2024 End: 01-18-2024 acetaminophen 1,000 mg tab(s ) (TYLENOL) [id number] 200 actuat albuterol 0.09 mg/actuat metered dose inhaler (20 sources) beta2-Adrenergic Agonist Start: 04-17-2023 take 1 puff(s) by inhalation every six hours Albuterol Sulfate Active 2 PUFF INHALATION EVERY 6 HOURS April 17, 2023 12:00am Start: 08-31-2022 End: 11-10-2023 take 2 puff(s) by inhalation every six hours as needed albuterol HFA (PROAIR HFA) 90 mcg/actuation inhaler Indications: Chronic cough , LYNN (dyspnea on exertion) , Mild intermittent asthma without complication (HCC) Inhale 2 Puffs as instructed every 6 hours as needed. 18 g 11/10/2023 Active Start: 12-10-2019 End: 11-10-2023 take 2 puff(s) by inhalation every four hours as needed albuterol HFA (PROVENTIL HFA, VENTOLIN HFA) 90 mcg/actuation inhaler Indications: Mild intermittent asthma with acute exacerbation Inhale 2 Puffs as instructed every 4 hours as needed. 18 g 5 12/10/2019 11/10/2023 Discontinued Comment on above: Inhale 2 Puffs as in structed every 4 hours as needed. Inhale 2 Puffs as in structed every 6 hours as needed. amoxicillin 875 mg oral tablet (1 source) Penicillin-class Antibacterial Start: 4 End: 5 take 1 tablet by mouth twice daily amoxicillin (AMOXIL) 875 mg tablet Indications: Acute non-recurrent frontal sinusitis Take 1 tablet by mouth two times a day for 10 days. 20 tablet 02/27/2024 03/08/2024 Active amoxicillin (AMOXIL) 400 mg/5 mL susr (3 sources) Start: 4 End: 4 take 6.25 mL by mouth every eight hours amoxicillin (AMOXIL) 400 mg/5 mL susr Take 6.25 mL by mouth every 8 hours for 10 days. 187.5 mL 0 05/30/2023 06/09/2023 Active Comment on above: Take 6.25 mL by mout h every 8 hours for 10 days. amoxicillin 875 mg / clavulanate 125 mg oral tablet (8 sources) Penicillin-class Antibacterial Start: 4 End: 4 take 1 tablet by mouth twice daily amoxicillin-clavula sandi potassium (AUGMENTIN) 875-125 mg per tablet Indications: Acute non-recurrent maxillary sinusitis Take 1 tablet by mouth two times a day for 14 days. 28 tablet 0 07/14/2023 07/28/2023 Active Start: 06-20-2023 End: 06-30-2023 take 2 tablets by mouth twice daily Amoxicillin-Pot Clavulanate 400-57 mg per chewable tablet Indications: Acute maxillary sinusitis, recurrence not specified Take 2 tablets by mouth two times a day for 10 days. 40 tablet 0 06/20/2023 06/30/2023 Active Start: 12-06-2022 End: 12-11-2022 take 1 tablet by mouth twice daily amoxicillin-clavulanic acid (AUGMENTIN) 875-125 mg per tablet Indications: Acute non-recurrent sinusitis, unspecified location Take 1 tablet by mouth two times a day for 5 days. 10 tablet 0 12/06/2022 12/11/2022 Active Start: 08-19-2022 End: 08-26-2022 take 1 tablet by mouth twice daily amoxicillin-clavulanic acid (AUGMENTIN) 875-125 mg per tablet Take 1 tablet by mouth twice daily for 7 days. 14 tablet 0 08/19/2022 08/26/2022 Active Comment on above: Take 1 tablet by ashlyn th twice daily for 7 days. Take 1 tablet by ashlyn th two times a day for 5 days. bisacodyl 5 mg delayed release oral tablet (1 source) Stimulant Laxative Start: 4 take 1 tablet by mouth once daily Bisacodyl (Dulcolax (Bisacodyl)) 5 mg tablet,delayed release (DR/EC) Active 5 MG PO DAILY April 17, 2023 12:00am cefuroxime 250 mg oral tablet (1 source) Cephalosporin Antibacterial Start: 3 End: 3 take 1 tablet by mouth twice daily cefUROXime (CEFTIN) 250 mg tablet Indications: Bronchitis Take 1 tablet by mouth twice daily for 10 days. 20 tablet 0 09/13/2022 09/23/2022 Active Comment on above: Take 1 tablet by ashlyn twice daily for 10 days. docusate sodium 100 mg oral capsule (8 sources) Start: 4 take 1 capsule by mouth once daily Docusate Sodium (Colace) 100 mg capsule Active 100 MG PO DAILY April 17, 2023 12:00am Start: 02-26-2020 End: 06-29-2022 take 2 capsules by mouth twice daily docusate sodium (STOOL SOFTENER) 100 mg capsule Take 2 capsules by mouth twice daily. 120 capsule 5 02/26/2020 06/29/2022 Discontinued (Other) Comment on above: Take 2 capsules by m outh twice daily. fluticasone propionate 0.05 mg/actuat metered dose nasal spray (20 sources) Corticosteroid Start: take 2 spray(s) nasal route once daily fluticasone (FLONASE ALLERGY RELIEF) 50 mcg/actuation nasal spray Indications: Seasonal allergies Use 2 sprays in each nostril once daily. 1 each 11 06/25/2024 Active Start: 03-22-2023 End: 04-06-2023 take 1 puff(s) by mouth twice daily fluticasone (FLOVENT HFA) 44 mcg/actuation inhaler Indications: Bronchitis Inhale 1 Puff as instructed two times a day. Shake well before use. Rinse mouth after use. 1 Each 03/22/2023 04/06/2023 Discontinued Start: 12-06-2022 End: 04-10-2024 take 2 spray(s) by mouth once daily fluticasone (FLONASE) 50 mcg/actuation nasal spray Indications: Acute non-recurrent sinusitis, unspecified location Use 2 Sprays in each nostril once daily. Rinse mouth after use. 16 g 12/06/2022 04/10/2024 Discontinued (Other) Start: 12-10-2019 End: 03-13-2023 take 2 puff(s) by inhalation twice daily fluticasone (FLOVENT HFA) 110 mcg/actuation inhaler Indications: Mild intermittent asthma with acute exacerbation Inhale 2 Puffs as instructed twice daily. 1 Inhaler 5 12/10/2019 03/13/2023 Discontinued Comment on above: Inhale 2 Puffs as in structed twice daily. Use 2 Sprays in each nostril once daily. Rinse mouth after use. Inhale 1 Puff as ins tructed two times a day. Shake well before use. Rinse mouth after use. gabapentin 300 mg oral capsule (8 sources) Anti-epileptic Agent take 1 capsule by mouth twice daily gabapentin (NEURONTIN) 300 mg capsule Take 300 mg by mouth two times a day. Active lamoTRIgine 200 mg oral tablet (20 sources) Mood Stabilizer, Anti-epileptic Agent Start: 04-28-19 End: 04-27-19 take 1 tablet by mouth twice daily lamoTRIgine (LAMICTAL) 200 mg tablet Indications: Schizoaffective disorder, bipolar type (HCC) Take 1 tablet by mouth two times a day. 60 tablet 11 04/28/2023 Active Start: 11-19-2020 take 200 mg by mouth twice daily Lamotrigine Active 200 MG PO TWICE A DAY November 18, 2020 11:00pm Start: 12-07-2013 End: 03-14-2023 take 1 tablet by mouth twice daily lamoTRIgine (LAMICTAL) 150 mg tablet Indications: Seizure (HCC) Take 1 tablet by mouth twice daily. 60 tablet 5 12/07/2013 03/14/2023 Discontinued Comment on above: Take 1 tablet by ashlyn th twice daily. Take 1 tablet by ashlyn th two times a day. lithium carbonate 300 mg oral capsule (20 sources) Start: take 1 capsule by mouth once daily at breakfast lithium carbonate (ESKALITH) 300 mg capsule Indications: Schizoaffective disorder, bipolar type (HCC) Take 1 capsule by mouth daily with breakfast. 06/25/2024 Active Start: 03-07-2024 take 1 capsule by mo uth once daily at bedtime lithium carbonate 600 mg capsule Take 600 mg by mouth daily at bedtime. 03/07/2024 Active Start: 04-28-2023 End: 06-25-2024 take 2 capsules by mouth twice daily lithium carbonate (ESKALITH) 300 mg capsule Indications: Schizoaffective disorder, bipolar type (HCC) Take 2 capsules by mouth two times a day. 120 capsule 5 04/28/2023 06/25/2024 Discontinued Start: 06-17-2022 End: 04-28-2023 take 1 capsule by mouth twice daily lithium carbonate (ESKALITH) 300 mg capsule Take 300 mg by mouth two times a day. 06/17/2022 04/28/2023 Discontinued Comment on above: Take 300 mg by mouth two times a day. Take 2 capsules by m outh two times a day. loratadine 10 mg oral tablet (5 sources) Start: 2024 take 1 tablet by mouth once daily loratadine (CLARITIN) 10 mg tablet Indications: Seasonal allergies Take 1 tablet by mouth once daily. 30 tablet 11 06/25/2024 Active methylPREDNISolone (1 source) Corticosteroid Start: 2022 End: 2022 methylPREDNISolone (MEDROL, RENZO,) 4 mg Dose-Pack Take as directed 21 tablet 0 12/17/2022 12/22/2022 Active Comment on above: Take as directed nirmatrelvir tablet 300 mg (150 mg x 2) and ritonavir tablet 100 mg in a dose pack (PAXLOVID) (1 source) Start: 2021 End: 2021 nirmatrelvir tablet 300 mg (150 mg x 2) and ritonavir tablet 100 mg in a dose pack (PAXLOVID) Administer TWO pink nirmatrelvir 150 mg tablets and ONE white ritonavir 100 mg tablet for a total of three tablets twice daily. 30 tablet 0 02/01/2022 02/06/2022 Active Comment on above: Administer TWO pink nirmatrelvir 150 mg tablets and ONE white ritonavir 100 mg tablet for a total of three tablets twice daily. omeprazole 40 mg delayed release oral capsule (20 sources) Proton Pump Inhibitor Start: 2023 End: 2024 take 1 capsule by mouth once daily omeprazole (PRILOSEC) 40 mg capsule Indications: Gastroesophageal reflux disease, unspecified whether esophagitis present Take 1 capsule by mouth once daily. 90 capsule 3 02/14/2024 02/13/2025 Active Start: 12-24-2015 End: 12-03-2022 take 1 capsule by mouth once daily omeprazole (PRILOSEC) 40 mg capsule Take 1 capsule by mouth once daily. 28 capsule 5 06/17/2020 02/17/2021 Discontinued Comment on above: Take 1 capsule by [facility] once daily. 24 hr paliperidone 3 mg extended release oral tablet (20 sources) Atypical Antipsychotic Start: 01-14-20 take 1 tablet by mouth once daily, then take 1 tablet by mouth every twenty-four hours paliperidone ER (INVEGA) 3 mg 24 hr tablet Take 3 mg by mouth once daily. 01/14/2024 Active Start: 04-28-2023 End: 04-10-2024 paliperidone palm, 3 month, (INVEGA TRINZA) 819 mg/2.63 mL syrg Indications: Schizoaffective disorder, bipolar type (HCC) To be given at office 1 Each 3 04/28/2023 04/10/2024 Discontinued (Other) Start: 06-02-2022 take 3 mg by mouth at bedtime Paliperidone Active 3 MG PO AT BEDTIME June 01, 2022 11:00pm Start: 06-02-2022 Paliperidone P lolis (3 Month) (Invega Trinza) 819 mg/2.63 mL syringe Active 819 MG IM Q3M June 01, 2022 11:00pm Start: 06-02-2022 take 6 mg by mouth at bedtime Paliperidone Active 6 MG PO AT BEDTIME June 01, 2022 11:00pm Start: 10-17-2018 End: 04-28-2023 inject 234 [IU] by intramuscular injection every three months INVEGA SUSTENNA 234 mg/1.5 mL syrg Inject 234 Units intramuscularly every 4 weeks. Every three months 10/17/2018 04/28/2023 Discontinued (Discontinued by another Health Care Provider) Start: 10-17-2018 INVEGA SUSTENN A 234 mg/1.5 mL syrg Inject 234 Units intramuscularly every 4 weeks. 0 10/17/2018 Active Comment on above: Inject 234 Units int ramuscularly every 4 weeks. Inject 234 Units int ramuscularly every 4 weeks. Every three months To be given at offic e sertraline 100 mg oral tablet (20 sources) Serotonin Reuptake Inhibitor Start: take 100 mg by mouth every twenty-four hours Sertraline Active 100 MG PO Q24H April 17, 2023 12:00am Start: 06-17-2022 take 1 tablet by ashlyn th once daily sertraline (ZOLOFT) 100 mg tablet Take 100 mg by mouth once daily. 06/17/2022 Active Comment on above: Take 100 mg by mouth once daily. urea 400 mg/ml topical cream (20 sources) Start: 06-27-2024 End: 09-25-2024 urea (CARMOL) 40 % APPLY TOPICALLY TO AFFECTED AREA DAILY 85 g 4 06/27/2024 09/25/2024 Active Start: 03-29-2023 End: 03-28-2024 urea (CARMOL) 40 % Apply to affected area once daily. 198 g 11 03/29/2023 03/28/2024 Active Comment on above: Apply to affected ar ea once daily. Completed/Discontinued Medications Medication Drug Class(es) Dates Sig (Normalized) Sig (Original) benzonatate 100 mg oral capsule (20 sources) Non-narcotic Antitussive Start: 08-25-2023 End: 11-10-2023 take 1 capsule by mouth every eight hours as needed benzonatate (TESSALON PERLES) 100 mg capsule Take 1 capsule by mouth three times a day as needed for cough. 21 capsule 08/25/2023 11/10/2023 Discontinued Start: 05-30-2023 End: 06-14-2023 take 1 capsule by mouth every eight hours as needed benzonatate (TESSALON PERLES) 100 mg capsule Take 1 capsule by mouth three times a day as needed for cough for up to 15 days. 45 capsule 0 05/30/2023 06/14/2023 Active Start: 03-15-2023 End: 05-30-2023 take 2 capsules by mouth three times daily as needed for cough benzonatate (TESSALON PERLES) 100 mg capsule Indications: Bronchitis Take 2 capsules by mouth three times a day as needed for cough. 30 capsule 03/15/2023 05/30/2023 Discontinued (Duplicate Entry) Start: 09-03-2022 End: 09-13-2022 take 2 capsules by mouth three times daily as needed for cough benzonatate (TESSALON PERLES) 100 mg capsule Indications: Bronchitis , Mild intermittent asthma without complication Take 2 capsules by mouth three times daily as needed for cough. 30 capsule 09/03/2022 09/13/2022 Discontinued (Course of therapy completed) Start: 08-31-2022 End: 09-03-2022 take 1 capsule by mouth every eight hours as needed benzonatate (TESSALON PERLES) 100 mg capsule Take 1 capsule by mouth three times daily as needed for cough. 12 capsule 0 08/31/2022 09/03/2022 Discontinued Comment on above: Take 1 capsule by mo uth three times daily as needed for cough. Take 2 capsules by m outh three times daily as needed for cough. Take 2 capsules by m outh three times a day as needed for cough. Take 1 capsule by mo [facility] three times a day as needed for cough for up to 15 days. benztropine mesylate 0.5 mg oral tablet (20 sources) Anticholinergic, Antihistamine Start: 06-22-19 End: 04-10-19 take 1 tablet by mouth twice daily benztropine (COGENTIN) 0.5 mg tablet Indications: Schizoaffective disorder, bipolar type (HCC) Take 1 tablet by mouth two times a day. 30 tablet 2 05/02/2023 04/10/2024 Discontinued (Other) End: 01-10-2021 take 1 tablet by mouth twice daily benztropine (COGENTIN) 0.5 mg tablet Take 0.5 mg by mouth twice daily. 01/10/2021 Discontinued Comment on above: Take 0.5 mg by mouth twice daily. Take 1 tablet by ashlyn two times a day. betamethasone 0.5 mg/ml / clotrimazole 10 mg/ml topical cream (2 sources) Azole Antifungal, Corticosteroid Start: 2023 End: 2023 clotrimazole-betameth asone (LOTRISONE) cream Indications: Tinea cruris Apply to affected area two times a day for 14 days. 30 g 03/14/2023 03/28/2023 Comment on above: Apply to affected ar ea two times a day for 14 days. 60 actuat budesonide 0.09 mg/actuat dry powder inhaler (20 sources) Corticosteroid Start: 2023 End: 2024 take 2 puff(s) by inhalation twice daily budesonide (PULMICORT FLEXHALER) 90 mcg/actuation aepb Indications: Bronchitis Inhale 2 Puffs as instructed two times a day. 1 Each 2 04/06/2023 04/10/2024 Discontinued (Other) Comment on above: Inhale 2 Puffs as in structed two times a day. cholecalciferol 0.05 mg oral capsule (20 sources) Vitamin D Start: 2023 End: 2024 take 1 capsule by mouth once daily Cholecalciferol, Vitamin D3, 50 mcg (2,000 unit) cap Indications: Vitamin D deficiency Take 1 capsule by mouth once daily. 90 capsule 3 07/18/2023 04/10/2024 Discontinued (Other) clotrimazole 10 mg/ml topical cream (1 source) Azole Antifungal Start: 2018 End: 2020 clotrimazole (LOTRIMIN, CLOTRIM) 1 % cream Indications: Candidiasis of penis Apply 1 application to affected area twice daily. Until resolved 14 g 08/11/2018 01/10/2021 Discontinued cyclobenzaprine hydrochloride 5 mg oral tablet (6 sources) Muscle Relaxant Start: 2020 End: 2022 take 1 tablet by mouth three times daily as needed cyclobenzaprine (FLEXERIL) 5 mg tablet Indications: Right flank pain Take 1 tablet by mouth three times daily as needed. 20 tablet 0 12/23/2020 06/29/2022 Discontinued (Other) Comment on above: Take 1 tablet by ashlyn three times daily as needed. diclofenac sodium 0.01 mg/mg topical gel (20 sources) Nonsteroidal Anti-inflammatory Drug Start: 2023 End: 2024 diclofenac (VOLTAREN ARTHRITIS PAIN) 1 % topical gel Indications: Skin irritation Apply 2 g to affected area four times daily. 20 g 1 08/03/2023 04/10/2024 Discontinued (Other) Comment on above: Apply 2 g to affecte d area four times daily. dicyclomine hydrochloride 10 mg oral capsule (20 sources) Anticholinergic Start: 2023 End: 2024 take 1 capsule by mouth at bedtime dicyclomine (BENTYL) 10 mg capsule Indications: Left upper quadrant abdominal pain , Lactose intolerance Take 1 capsule by mouth before meals and at bedtime. 120 capsule 2 03/27/2024 04/10/2024 Discontinued (Other) Start: 06-29-2022 End: 12-28-2022 take 1 capsule by mouth at bedtime dicyclomine (BENTYL) 10 mg capsule Indications: Epigastric pain , Left upper quadrant abdominal pain Take 1 capsule by mouth before meals and at bedtime. 30 capsule 06/29/2022 07/27/2022 Discontinued Start: 08-18-2021 take 20 mg by mouth three times daily Dicyclomine Active 20 MG PO THREE TIMES A DAY August 17, 2021 11:59pm Comment on above: Take 1 capsule by mo ut before meals and at bedtime. doxycycline hyclate 100 mg oral tablet (3 sources) Tetracycline-class Drug Start: 09-01-19 End: 09-08-19 take 1 tablet by mouth twice daily doxycycline (VIBRA-TABS) 100 mg tablet Take 1 tablet by mouth twice daily for 7 days. 14 tablet 08/31/2022 09/07/2022 Comment on above: Take 1 tablet by ashlyn twice daily for 7 days. hydrOXYzine pamoate 25 mg oral capsule (20 sources) Antihistamine Start: 11-22-19 End: 04-10-19 take 1 capsule by mouth three times daily as needed hydrOXYzine pamoate (VISTARIL) 25 mg capsule Indications: Schizoaffective disorder, bipolar type (HCC) Take 1 capsule by mouth three times a day as needed. 30 capsule 2 05/02/2023 04/10/2024 Discontinued (Other) Comment on above: Take 25 mg by mouth. Take 1 capsule by mo [facility] three times a day as needed. ibuprofen 600 mg oral tablet (20 sources) Nonsteroidal Anti-inflammatory Drug Start: 07-09-19 End: 10-02-19 take 1 tablet by mouth every six hours as needed for pain ibuprofen (MOTRIN) 600 mg tablet Indications: Concussion without loss of consciousness, subsequent encounter Take 1 tablet by mouth every 6 hours as needed for Pain. 40 tablet 07/08/2020 03/24/2022 Discontinued Comment on above: Take 1 tablet by ashlyn every 6 hours as needed for Pain. Inhaler,Assist Devices,Access (OPTICHAMBER ADULT MASK-LARGE) ritu (7 sources) Start: 02-01-20 End: 06-30-19 Inhaler,Assist Devices,Access (OPTICHAMBER ADULT MASK-LARGE) ritu Indications: Mild intermittent asthma with acute exacerbation Dispense one mask 1 Device 01/31/2019 06/29/2022 Discontinued (Other) Start: 01-31-2019 End: 06-29-2022 Inhaler,Assist Devices,Acces s (OPTICHAMBER ADULT MASK-LARGE) ritu Indications: Mild intermittent asthma with acute exacerbation Dispense one mask 1 Device 0 01/31/2019 06/29/2022 Discontinued (Other) Start: 01-31-2019 Inhaler,Assist Devices,Access (OPTICHAMBER ADULT MASK-LARGE) ritu Indications: Mild intermittent asthma with acute exacerbation Dispense one mask 1 Device 0 01/31/2019 Active Comment on above: Dispense one mask lactase 3000 unt oral tablet (20 sources) Start: End: take 1 tablet by mouth three times daily at mealtime lactase (LACTAID) 3,000 unit tablet Indications: Lactose intolerance Take 1 tablet by mouth three times a day with meals. 90 tablet 11 09/19/2023 04/10/2024 Discontinued (Other) lidocaine 0.05 mg/mg medicated patch (20 sources) Antiarrhythmic, Amide Local Anesthetic Start: apply 1 dose transdermal route once daily Lidocaine Active 1 PATCH TD DAILY April 17, 2023 12:00am Start: 04-06-2023 End: 04-10-2024 apply 1 dose transdermal route every twelve hours lidocaine (LIDODERM) 5 % Indications: Skin irritation Apply 1 Patch as directed every 12 hours. Remove old patch prior to placing new patch. Location: left leg 15 Patch 08/03/2023 04/10/2024 Discontinued (Other) Comment on above: Apply 1 Patch as dir ected every 12 hours. Remove old patch prior to placing new patch. Location: left leg meloxicam 15 mg oral tablet (16 sources) Nonsteroidal Anti-inflammatory Drug Start: 11-03-2022 End: 12-03-2022 take 1 tablet by mouth once daily meloxicam (MOBIC) 15 mg tablet Take 1 tablet by mouth once daily. 30 tablet 0 11/03/2022 12/03/2022 Start: 10-13-2022 take 1 tablet by ashlyn th once daily at mealtime meloxicam (MOBIC) 7.5 mg tablet Indications: Pain of toe of right foot Take 1 tablet by mouth once daily. Take with food. 10 tablet 0 10/13/2022 Active Comment on above: Take 1 tablet by ashlyn th once daily. Take with food. Take 1 tablet by ashlyn th once daily. mirtazapine 15 mg oral tablet (12 sources) Start: 01-20-2024 End: 04-10-2024 take 1 tablet by mouth once daily mirtazapine (REMERON) 15 mg tablet Take 15 mg by mouth once daily. 01/20/2024 04/10/2024 Discontinued (Other) Start: 12-23-2020 End: 06-29-2022 take 1 tablet by mouth once daily at bedtime Mirtazapine (REMERON) 7.5 mg tablet Take 1 tablet by mouth daily at bedtime. 0 12/23/2020 06/29/2022 Discontinued (Other) Start: 11-19-2020 take 7.5 mg by mouth at bedtim e Mirtazapine Active 7.5 MG PO AT BEDTIME November 18, 2020 11:00pm Start: 11-19-2020 take 15 mg by mouth at bedtime Mirtazapine Active 15 MG PO AT BEDTIME November 19, 2020 12:00am Comment on above: Take 1 tablet by ashlyn th daily at bedtime. OLANZapine 5 mg oral tablet (9 sources) Atypical Antipsychotic Start: End: take 1 tablet by mouth once daily at bedtime OLANZapine (ZYPREXA) 5 mg tablet Take 1 tablet by mouth daily at bedtime. 0 12/23/2020 06/29/2022 Discontinued (Other) Comment on above: Take 1 tablet by ashlyn th daily at bedtime. ondansetron 4 mg disintegrating oral tablet (20 sources) Serotonin-3 Receptor Antagonist Start: End: take 1 tablet by mouth every eight hours as needed for nausea ondansetron orally disintegrating (ZOFRAN ODT) 4 mg disintegrating tablet Indications: Concussion without loss of consciousness, subsequent encounter Take 1 tablet by mouth every 8 hours as needed for Nausea/Vomiting. 20 tablet 07/08/2020 04/10/2024 Discontinued (Other) Comment on above: Take 1 tablet by ashlyn th every 8 hours as needed for Nausea/Vomiting. perphenazine 4 mg oral tablet (1 source) Phenothiazine Start: End: take 3 tablets by mouth twice daily perphenazine 4 mg tablet Take 3 tablets by mouth twice daily. 180 tablet 6 04/15/2015 01/10/2021 Discontinued predniSONE 10 mg oral tablet (13 sources) Start: End: predniSONE (DELTASONE) 10 mg tablet Take 4 tabs daily for 3 days, then 2 tabs daily for 3 days, then 1 tab daily for 3 days with food. 21 tablet 01/18/2024 04/10/2024 Discontinued (Other) Start: 08-25-2023 End: 09-19-2023 predniSONE (DELTASONE) 10 mg tablet Take 4 tabs daily for 3 days, then 2 tabs daily for 3 days, then 1 tab daily for 3 days with food. 21 tablet 0 08/25/2023 09/19/2023 Discontinued (Course of therapy completed) Start: 09-03-2022 End: 09-08-2022 take 1 tablet by mouth once daily at mealtime predniSONE (DELTASONE) 20 mg tablet Indications: Bronchitis , Mild intermittent asthma without complication Take 1 tablet by mouth once daily for 5 days. Take daily with food. 5 tablet 09/03/2022 09/08/2022 Comment on above: Take 1 tablet by ashlyn once daily for 5 days. Take daily with food. 24 hr QUEtiapine 200 mg extended release oral tablet (1 source) Atypical Antipsychotic End: take 1 tablet by mouth once daily at bedtime QUEtiapine ER (SEROQUEL XR) 200 mg 24 hr tablet Take 200 mg by mouth daily at bedtime. 01/10/2021 Discontinued risperiDONE 0.5 mg oral tablet (20 sources) Atypical Antipsychotic Start: End: take 3 tablets by mouth twice daily risperiDONE (RISPERDAL) 0.5 mg tablet Indications: Schizoaffective disorder, bipolar type (HCC) Take 3 tablets by mouth two times a day. 180 tablet 04/28/2023 04/10/2024 Discontinued (Other) Comment on above: Take 3 tablets by mo [facility] two times a day. traZODone hydrochloride 50 mg oral tablet (20 sources) Serotonin Reuptake Inhibitor Start: End: take 1 tablet by mouth once daily at bedtime traZODone (DESYREL) 50 mg tablet Indications: Schizoaffective disorder, bipolar type (HCC) Take 1 tablet by mouth daily at bedtime. 30 tablet 5 04/28/2023 10/25/2023 Start: 12-23-2020 End: 04-28-2023 take 3 tablets by mouth once daily at bedtime traZODone (DESYREL) 50 mg tablet Take 150 mg by mouth daily at bedtime. 12/23/2020 04/28/2023 Discontinued Start: 12-23-2020 End: 04-17-2023 take 50 mg by mouth at bedtime Trazodone Discontinued 50 MG PO AT BEDTIME August 16, 2021 11:00pm April 17, 2023 8:15pm Comment on above: Take 1 tablet by ashlyn th daily at bedtime. Take 150 mg by mouth daily at bedtime. triamcinolone acetonide 0.001 mg/mg topical ointment (20 sources) Corticosteroid Start: 04-12-19 End: 04-10-19 triamcinolone acetonide (KENALOG) 0.1 % ointment Indications: Dermatitis Apply to affected area two times a day. 15 g 04/12/2023 04/10/2024 Discontinued (Other) Comment on above: Apply to affected ar ea two times a day. 24 hr venlafaxine 75 mg extended release oral capsule (1 source) Serotonin and Norepinephrine Reuptake Inhibitor End: 01-11-20 take 1 capsule by mouth once daily venlafaxine ER (EFFEXOR XR) 75 mg 24 hr capsule Take 75 mg by mouth once daily. 01/10/2021 Discontinued Problems Active Problems Problem Classification Problem Date Documented Da te Episodic/Chronic Acute bronchitis (9 sources) Acute bronchitis; Translations: [Acute bronchitis, unspecified] 02-17-2015 Episodic Allergic reactions (1 source) Inflammatory dermatosis; Translations: [Dermatitis, unspecified] 04-12-2023 Episodic Asthma (20 sources) Mild intermittent asthma; Translations: [Mild intermittent asthma, uncomplicated] Onset: 6 01-30-2016 Chronic Attention-deficit, conduct, and disruptive behavior disorders (20 sources) Attention deficit hyperactivity disorder; Translations: [Attention-deficit hyperactivity disorder, unspecified type] 01-13-2015 Chronic Biliary tract disease (16 sources) Gallstone; Translations: [Calculus of gallbladder without cholecystitis without obstruction] 01-23-2021 Episodic Calculus of urinary tract (1 source) History of calculus of kidney; Translations: [Personal history of urinary calculi] Episodic Chronic obstructive pulmonary disease and bronchiectasis (5 sources) Bronchitis; Translations: [Bronchitis, not specified as acute or chronic] 09-03-2022 Episodic Deficiency and other anemia (1 source) Anemia; Translations: [Anemia, unspecified] 12-02-2023 Episodic Delirium, dementia, and amnestic and other cognitive disorders (8 sources) Postconcussion syndrome; Translations: [Postconcussional syndrome] 03-20-2016 Chronic Disorders usually diagnosed in infancy, childhood, or adolescence (20 sources) Asperger's disorder; Translations: [Asperger's syndrome] Onset: 6 03-08-2017 Chronic E Codes: Natural/environment (2 sources) Repetitive motion disorder; Translations: [Overexertion from repetitive movements, initial encounter] 12-17-2022 Episodic Esophageal disorders (20 sources) Gastroesophageal reflux disease; Translations: [Gastro-esophageal reflux disease without esophagitis] Onset: 6 01-30-2016 Chronic Genitourinary symptoms and ill-defined conditions (3 sources) Dysuria; Translations: [Dysuria] Episodic Headache; including migraine (8 sources) Headache; Translations: [Headache] 07-04-2020 Episodic HIV infection (1 source) Fatigue associated with AIDS; Translations: [Human immunodeficiency virus [HIV] disease] 07-14-2023 Chronic Immunizations and screening for infectious disease (1 source) Vaccination needed; Translations: [Encounter for immunization] 12-02-2023 Episodic Impulse control disorders, NEC (16 sources) Homicidal thoughts; Translations: [Homicidal ideations] 08-17-2018 Episodic Miscellaneous mental health disorders (20 sources) Dissociative convulsions; Translations: [Conversion disorder with seizures or convulsions] Onset: 6 02-23-2021 Chronic Mood disorders (20 sources) Depressive disorder; Translations: [Depression with suicidal ideation] Onset: 4 10-22-2020 Chronic Mycoses (2 sources) Onychomycosis; Translations: [Tinea unguium] Onset: 5 08-28-2024 Episodic Nervous system congenital anomalies (20 sources) Partial agenesis of corpus callosum; 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] Onset: 3 08-17-2021 Chronic Nutritional deficiencies (1 source) Vitamin D deficiency, unspecified; Translations: [Vitamin D deficiency, unspecified] Onset: 5 Chronic Other aftercare (3 sources) Patient encounter status; Translations: [Encounter for therapeutic drug level monitoring] Episodic Other connective tissue disease (4 sources) Pain in hallux; Translations: [Pain in unspecified toe(s)] 10-11-2022 Episodic Other connective tissue disease (7 sources) Pain of toe of right foot; Translations: [Pain in right toe(s)] 10-13-2022 Episodic Other connective tissue disease (1 source) Pain in right foot; Translations: [Pain in right foot] 01-03-2023 Episodic Other connective tissue disease (1 source) Pain in right toe(s); Translations: [Pain in toe of right foot] Onset: 5 Episodic Other ear and sense organ disorders (2 sources) Impacted cerumen of bilateral ears; Translations: [Impacted cerumen, bilateral] Episodic Other ear and sense organ disorders (1 source) Otalgia, right ear; Translations: [Otalgia, unspecified] 10-20-2022 Episodic Other ear and sense organ disorders (1 source) Impacted cerumen in right ear; Translations: [Impacted cerumen, right ear] 10-20-2022 Episodic Other gastrointestinal disorders (1 source) Diarrhea; Translations: [Diarrhea, unspecified] 10-24-2023 Episodic Other lower respiratory disease (8 sources) Pleuritic pain; Translations: [Pleurodynia] 02-17-2015 Episodic Other lower respiratory disease (2 sources) Cough; Translations: [Acute cough] 08-25-2023 Episodic Other lower respiratory disease (4 sources) Dyspnea on exertion; Translations: [Other forms of dyspnea] 11-10-2023 Episodic Other lower respiratory disease (2 sources) Cough; Translations: [Acute cough] 01-18-2024 Episodic Other nutritional; endocrine; and metabolic disorders (20 sources) Body mass index 40+ - severely obese; Translations: [Morbid (severe) obesity due to excess calories] Onset: 4 03-14-2023 Chronic Other nutritional; endocrine; and metabolic disorders (3 sources) Intolerance to lactose; Translations: [Lactose intolerance, unspecified] 09-19-2023 Chronic Other skin disorders (3 sources) Skin irritation ; Translations: [Other skin changes] 04-06-2023 Episodic Other upper respiratory disease (1 source) Seasonal allergy; Translations: [Other seasonal allergic rhinitis] 06-25-2024 Chronic Other upper respiratory disease (1 source) Other seasonal allergic rhinitis; Translations: [Seasonal allergies] Onset: 5 Chronic Other upper respiratory disease (1 source) Nasal congestion; Translations: [Nasal congestion] 06-25-2024 Episodic Other upper respiratory disease (1 source) Nasal congestion; Translations: [Nasal congestion] Onset: 5 Episodic Other upper respiratory infections (16 sources) Acute upper respiratory infection; Translations: [Acute upper respiratory infection, unspecified] Onset: 5 Episodic Otitis media and related conditions (1 source) Acute left otitis media; Translations: [Otitis media, unspecified, left ear] Episodic Residual codes; unclassified (8 sources) History of clinical finding in subject; Translations: [Personal history of other specified conditions] 02-17-2015 Episodic Residual codes; unclassified (13 sources) Auditory hallucinations; Translations: [Auditory hallucinations] 05-28-2020 Episodic Schizophrenia and other psychotic disorders (20 sources) Psychotic disorder; Translations: [Unspecified psychosis not due to a substance or known physiological condition] Onset: 4 11-19-2020 Chronic Screening and history of mental health and substance abuse codes (18 sources) H/O: schizophrenia; Translations: [Personal history of other mental and behavioral disorders] 04-22-2022 Episodic Suicide and intentional self-inflicted injury (20 sources) Suicidal thoughts; Translations: [Suicidal ideations] Onset: 4 04-22-2022 Episodic Unclassified (20 sources) PMH - PAST MEDICAL HISTORY OF 01-08-2005 Unclassified (1 source) Acute cough; Translations: [Acute cough] Onset: 4 Viral infection (1 source) Disease caused by 2019-nCoV; Translations: [COVID-19] Episodic Past or Other Problems Problem Classification Problem Date Documented Da te Episodic/Chronic Abdominal pain (20 sources) Right flank pain; Translations: [Unspecified abdominal pain] Onset: 10-13-2006 Resolved: 10-02-2015 04-19-2019 Episodic Cardiac dysrhythmias (2 sources) Palpitations; Translations: [Palpitations] Onset: 01-03-2024 12-02-2023 Episodic Deficiency and other anemia (1 source) Anemia, unspecified; Translations: [Anemia, unspecified type] Onset: 12-02-2023 Episodic Diabetes mellitus without complication (2 sources) Hyperglycemia; Translations: [Hyperglycemia, unspecified] Onset: 12-02-2023 12-02-2023 Episodic Epilepsy; convulsions (20 sources) Seizure disorder; Translations: [Epilepsy, unspecified, intractable, without status epilepticus] Onset: 04-09-2015 Resolved: 10-02-2015 03-20-2016 Chronic Fluid and electrolyte disorders (2 sources) Hypokalemia; Translations: [Hypokalemia] Onset: 12-02-2023 12-02-2023 Episodic Immunity disorders (20 sources) Selective immunoglobulin dysfunction; 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, unspecified] Resolved: 02-27-2024 01-08-2005 Chronic Nonspecific chest pain (1 source) Chest pain, unspecified; Translations: [Chest pain, unspecified] Onset: 01-03-2024 Episodic Other bone disease and musculoskeletal deformities (20 sources) Exostosis; Translations: [Other specified disorders of bone, unspecified site] Onset: 05-31-2005 Resolved: 10-02-2015 10-02-2015 Episodic Other connective tissue disease (20 sources) Pain in limb; Translations: [Pain in unspecified limb] Onset: 01-08-2005 Resolved: 10-02-2015 10-02-2015 Episodic Other lower respiratory disease (6 sources) Chronic cough; Translations: [Chronic cough] Onset: 11-14-2023 11-10-2023 Episodic Other lower respiratory disease (1 source) Other forms of dyspnea; Translations: [LYNN (dyspnea on exertion)] Onset: 11-14-2023 Episodic Other nervous system disorders (20 sources) Abnormal gait; Translations: [Unspecified abnormalities of gait and mobility] Onset: 06-22-2005 Resolved: 10-02-2015 10-02-2015 Episodic Other nutritional; endocrine; and metabolic disorders (20 sources) Morbid obesity; Translations: [Morbid (severe) obesity due to excess calories] Onset: 01-30-2016 Resolved: 02-27-2024 01-30-2016 Chronic Other conditions (20 sources) Convulsions in the ; Translations: [Convulsions of ] Resolved: 10-02-2015 10-02-2015 Episodic Other skin disorders (20 sources) Ingrowing nail; Translations: [Ingrowing nail] Onset: 01-08-2005 Resolved: 10-02-2015 10-02-2015 Episodic Skin and subcutaneous tissue infections (20 sources) Disorder of nail; Translations: [Cellulitis of unspecified toe] Onset: 04-15-2005 Resolved: 10-02-2015 10-02-2015 Episodic Spondylosis; intervertebral disc disorders; other back problems (20 sources) Neck pain; Translations: [Cervicalgia] Onset: 07-26-2018 07-26-2018 Episodic Superficial injury; contusion (20 sources) Contusion of right knee; Translations: [Contusion of right knee, initial encounter] Onset: 07-26-2018 Resolved: 04-10-2024 07-26-2018 Episodic Unclassified (2 sources) 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 Patient presents with: Cough: Cough and ST x 3 days Patient presents with 3 days of illness accompanied by his long-term caregiver. He has had sore throat, fatigue, and cough. He reports shortness of breath but has not requested his inhaler. Denies headache, fever, chills, nasal congestion, rhinorrhea. His housemate has pneumonia (negative for COVID, little contact with him). Cough Review of Systems Respiratory: Positive for cough. Objective BP 122/80 Pulse 90 Temp 36.5 ?C (97.7 ?F) (Tympanic) Resp 16 Wt 129.7 kg (285 lb 15 oz) SpO2 99% BMI 41.03 kg/m? Physical Exam Constitutional: General: He is not in acute distress. Appearance: He is not ill-appearing. HENT: Right Ear: Tympanic membrane and ear canal normal. Left Ear: Tympanic membrane and ear canal normal. Nose: Congestion present. Eyes: Extraocular Movements: Extraocular movements intact. Conjunctiva/sclera: Conjunctivae normal. Pupils: Pupils are equal, round, and reactive to light. Cardiovascular: Rate and Rhythm: Normal rate and regular rhythm. Heart sounds: No murmur heard. Pulmonary: Effort: No respiratory distress. Breath sounds: Wheezing (Bilateral diffuse) present. No rhonchi or rales. Musculoskeletal: Cervical back: Neck supple. Tenderness present. Lymphadenopathy: Cervical: No cervical adenopathy. Neurological: Mental Status: He is alert. {ASSESSMENT/PLAN: 1. Sore throat - ICD9: 462, ICD10: J02.9 - STREP A MOLECULAR (POC) - negative. - suspect viral URI - Supportive care treatment with rest, cold medicine, and analgesia. - Viral URI contagiousness recommendations: avoid exposure to others until fever free for 24 hours without fever reducing medication. An additional 5 days of limiting contact can include covering coughs/masking, social distance, and hand hygiene. Jatin Herrera MD History and Record Review Clinical information obtained from an independent historian. History obtained from or confirmed by: other (see comments) (prison caregiver). Differential Diagnoses - Viral URI with asthma exacerbation is more likely for the following reason(s): suggested by HANDP - Pneumonia is less likely for the following reason(s): No focal lung abnormality Procedures Allergies As of Date: 09/12/2024 Noted Allergy Reaction CONCERTA (METHYLPHENIDATE ANALOGU*07/08/2014 1 - Mental Status Change Comments: hyper DEPAKOTE (DIVALPROEX) 07/08/2020 5 - Intolerance PHENOBARBITAL 01/08/2005 5 - Intolerance RITALIN (METHYLPHENIDATE HCL) 01/08/2005 5 - Intolerance Comments: hyper Date Reviewed: 09/12/2024 Reviewed by: Keesha Brown LPN - Fully Assessed Reason for Visit: Cough [28] Cmt: Cough and ST x 3 days Primary Visit Diagnosis:Sore throat [J02.9] Order(s):STREP A MOLECULAR (POC) [[id number]] Order #: [id number]. #:[id number] Prescriptions as of 09/12/2024 - urea (CARMOL) 40 % APPLY TOPICALLY TO AFFECTED AREA DAILY - fluticasone (FLONASE ALLERGY RELIEF) 50 mcg/actuation nasal spray Use 2 sprays in each nostril once daily. - loratadine (CLARITIN) 10 mg tablet Take 1 tablet by mouth once daily. - lithium carbonate (ESKALITH) 300 mg capsule Take 1 capsule by mouth daily with breakfast. - lithium carbonate 600 mg capsule Take 600 mg by mouth daily at bedtime. - gabapentin (NEURONTIN) 300 mg capsule Take 300 mg by mouth two times a day. - paliperidone ER (INVEGA) 3 mg 24 hr tablet Take 3 mg by mouth once daily. - acetaminophen (TYLENOL EXTRA STRENGTH) 500 mg tablet Take 2 tablets by mouth every 6 hours as needed for pain. - omeprazole (PRILOSEC) 40 mg capsule Take 1 capsule by mouth once daily. - albuterol HFA (PROAIR HFA) 90 mcg/actuation inhaler Inhale 2 Puffs as instructed every 6 hours as needed. - lamoTRIgine (LAMICTAL) 200 mg tablet Take 1 tablet by mouth two times a day. - sertraline (ZOLOFT) 100 mg tablet Take 100 mg by mouth once daily. 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 Normal [facility] STREP A MOLECULAR (POC)on Procedural Control Valid [facility] Strep A (POCT) Negative Negative [facility] CNOVon 08-28-2024 CNOV Office Visit (PODIWS ) -------- LEVY TODD ([id number]) 1995 M Date Time Provider Department 08/28/24 1:15 PM FERN SOLARES PODIWS During your visit today, we recorded the following information about you: Nadia Eaton LPN 08/28/2024 1:21 PM Signed AMB ROOMING INTAKE FLOWSHEET DATA Risk Screening Do you have concerns about personal safety or safety in the home?: No Patient presents with: Left Foot - Established Patient, nail care Right Foot - Established Patient, nail care MARTHA Palomares Matthew 08/28/2024 1:21 PM Signed Subjective: Patient presents to clinic c/o painful toenails. They state that the nails are especially painful with shoe gear and pressure. Patient states that nails right 3rd toenails is painful. No other pedal complaints at this time. Patient states no change in medications or medical history since last visit. Objective: Patient presents to clinic ambulating in sneakers Vasc: DP and PT pulses are palpable bilateral. CFT is less than 5 seconds bilateral. Skin temperature is warm to cool proximal to distal bilateral. There is no edema or varicosities noted. Neuro: Protective sensation is intact to the foot and toes when tested with the 5.07 SWM bilateral. Vibratory sensation is decreased at the hallux IPJ bilateral. The hallux is downgoing bilateral. Derm: Nails 2-5 b/l are discolored-yellow, thick, crumbly, dystrophic and with subungal debris. Skin is of normal turgor, texture and hair growth is present bilateral. There are no hyperkeratosis, ulcerations, scars, verruca or other lesions noted. Ortho: Muscle strength is 5/5 for all pedal groups tested. Ankle joint DF is full with the knee extended with no pain or crepitus noted. 1st MPJ ROM is full bilateral. Assessment: (B35.1) Onychomycosis (primary encounter diagnosis) (M79.674) Pain in toe of right foot Plan: Patient was seen and evaluated. Nails 2-5 bilateral were debrided in length and thickness. I do feel if patient keeps his nails cut short, his nails likely won't cause him pain. If pain were present, he could consider nail removal. AMISHA Jaramillo Matthew 08/28/2024 1:17 PM Signed Ok to hold on cream if the feet are no longer dry Fern Solares DPM Referring Provider: FERN SOLARES [[id number]] Allergies As of Date: 08/28/2024 Noted Allergy Reaction CONCERTA (METHYLPHENIDATE ANALOGU*07/08/2014 1 - Mental Status Change Comments: hyper DEPAKOTE (DIVALPROEX) 07/08/2020 5 - Intolerance PHENOBARBITAL 01/08/2005 5 - Intolerance RITALIN (METHYLPHENIDATE HCL) 01/08/2005 5 - Intolerance Comments: hyper Date Reviewed: 06/25/2024 Reviewed by: Mike Wilkinson LPN - Fully Assessed Reason for Visit: Established Patient [175] nail care [Other] Established Patient [175] nail care [Other] Primary Visit Diagnosis:Onychomycosis [B35.1] Other Visit Diagnosis:Pain in toe of right foot [M79.674] Prescriptions as of 08/28/2024 - urea (CARMOL) 40 % APPLY TOPICALLY TO AFFECTED AREA DAILY - fluticasone (FLONASE ALLERGY RELIEF) 50 mcg/actuation nasal spray Use 2 sprays in each nostril once daily. - loratadine (CLARITIN) 10 mg tablet Take 1 tablet by mouth once daily. - lithium carbonate (ESKALITH) 300 mg capsule Take 1 capsule by mouth daily with breakfast. - lithium carbonate 600 mg capsule Take 600 mg by mouth daily at bedtime. - gabapentin (NEURONTIN) 300 mg capsule Take 300 mg by mouth two times a day. - paliperidone ER (INVEGA) 3 mg 24 hr tablet Take 3 mg by mouth once daily. - acetaminophen (TYLENOL EXTRA STRENGTH) 500 mg tablet Take 2 tablets by mouth every 6 hours as needed for pain. - omeprazole (PRILOSEC) 40 mg capsule Take 1 capsule by mouth once daily. - albuterol HFA (PROAIR HFA) 90 mcg/actuation inhaler Inhale 2 Puffs as instructed every 6 hours as needed. - lamoTRIgine (LAMICTAL) 200 mg tablet Take 1 tablet by mouth two times a day. - sertraline (ZOLOFT) 100 mg tablet Take 100 mg by mouth once daily. 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* 02/27/2024 PMH - PAST MEDICAL HISTORY OF Convulsions in [P90] 10/02/2015 Attention deficit hyperactivity disorder (ADHD)* Ingrowing nail [L60.0] 01/08/2005 10/02/2015 Pain in limb [M79.609] 01/08/2005 10/02/2015 Onychia and paronychia of toe [L03.039] 04/15/2005 10/02/2015 Exostosis of unspecified site [M89.8X9] 05/31/2005 10/02/2015 Abnormality of gait [R26.9] 06/22/2005 10/02/2015 Abdominal pain, epigastric [R10.13] 10/13/2006 10/02/2015 Abdominal pain, generalized [R10.84] 10/13/2006 10/02/2015 Epilepsy (HCC) [G40.909] 04/09/2015 10/02/2015 Psychogenic nonepileptic seizure [F44.5] 10/02/2015 Asperger's syndrome [F84.5] 10/02/2015 Morbid obesity (HCC) [E66.01] 01/30/2016 02/27/2024 GERD (gastroesophageal reflux disease) [K21.9] (more content not included)... Normal [facility] CNOVon 06-25-2024 CNOV Office Visit (FAMPWS ) -------- LEVY TODD ([id number]) 1995 M Date Time Provider Department 06/25/24 10:20 AM FRANCY MITTAL During your visit today, we recorded the following information about you: Pulse Respiration Blood pressure 74/minute 16/minute 134/72 Francy Mittal APRN.NON DESTRUCTIVE TESTING TECHNICIAN 06/25/2024 10:54 AM Signed Start taking Claritin once a day as directed to help with allergy symptoms. Use Flonase nose spray with 2 sprays in each nostril once a day. A strep swab test was performed in the office; a COVID/flu/RSV swab was also done, If your symptoms worsen or you do not start feeling better, please call our office. Francy Mittal APRN.NON DESTRUCTIVE TESTING TECHNICIAN 06/25/2024 7:40 PM Signed This is a 28 year old male who presents today with: Levy is a 28-year-old male presenting with a dry, hacking cough, sore throat, and rhinorrhea since . HISTORY OF PRESENT ILLNESS: Upper Respiratory Symptoms: - Onset of symptoms began on . - Dry, hacking cough; denies productive cough. - Sore throat. - Rhinorrhea without discoloration. - Denies fever, headache, ear pain, nausea, emesis, or diarrhea. - Occasionally feels postnasal drip. - No current medications for symptom relief. Presents with caregiver, Dianna. Pt lives in a long-term. Caregiver reports that she feels this is more allergies, as patient has been participating in normal activities without s/s of fatigue/illness. 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 mom lost 6 before him. premature labor. delivered emergency because cord wrapped around his neck. born 8 lbs. went home with mom. [...] Hcl] MEDICATIONS Current Outpatient Medications Medication Sig fluticasone (FLONASE ALLERGY RELIEF) 50 mcg/actuation nasal spray Use 2 sprays in each nostril once daily. loratadine (CLARITIN) 10 mg tablet Take 1 tablet by mouth once daily. lithium carbonate (ESKALITH) 300 mg capsule Take 1 capsule by mouth daily with breakfast. lithium carbonate 600 mg capsule Take 600 mg by mouth daily at bedtime. gabapentin (NEURONTIN) 300 mg capsule Take 300 mg by mouth two times a day. paliperidone ER (INVEGA) 3 mg 24 hr tablet Take 3 mg by mouth once daily. acetaminophen (TYLENOL EXTRA STRENGTH) 500 mg tablet Take 2 tablets by mouth every 6 hours as needed for pain. omeprazole (PRILOSEC) 40 mg capsule Take 1 capsule by mouth once daily. albuterol HFA (PROAIR HFA) 90 mcg/actuation inhaler Inhale 2 Puffs as instructed every 6 hours as needed. lamoTRIgine (LAMICTAL) 200 mg tablet Take 1 tablet by mouth two times a day. sertraline (ZOLOFT) 100 mg tablet Take 100 mg by mouth once daily. No current facility-administered medications for this [...] Never Smokeless tobacco: Never Vaping Use Vaping status: Never Used Substance Use Topics Alcohol use: Never Drug use: Never REVIEW OF SYSTEMS Constitutional: (-) fever Head: (-) headache Ears/Nose/Mouth/Throat: (+) sore throat, (-) ear pain, (+) congestion Respiratory: (+) cough Gastrointestinal: (-) nausea, (-) vomiting, (-) diarrhea EXAM: BP 134/72 Pulse 74 Resp 16 SpO2 97% PHYSICAL EXAM: General Appearance: Well appearing, alert, in no acute distress, well-hydrated, well nour (more content not included)... Normal [facility] COVID & INFLUENZA A/B & RSV PCR, ROUTINEon 06-25-2024 FLUAV RNA RELL+probe Ql (Unsp spec) Not detected Not Detected [facility] FLUBV RNA RELL+probe Ql (Unsp spec) Not detected Not Detected [facility] Interpretation and review of laboratory results Normal [facility] RSV A RNA RELL+probe Ql (Unsp spec) Not detected Not Detected [facility] SARS-CoV-2 (COVID-19) RNA RELL+probe Ql (Unsp spec) Not detected See comment [facility] Reference Range (the expected result in uninfected individuals): Not detected [facility] STREP A MOLECULAR (POC)on Procedural Control Valid [facility] Strep A (POCT) Negative Negative [facility] PROLACTIN 4465on 04-14-2024 PROLACTIN 28.1 ng/mL Normal 3.6-31.5 [facility] Comment on above: Result Comment: Perf ormed at: - [facility] [id number] Programmer Developer: Roscoe Young PhD, Phone: [phone] Performed By: #### L 554.6876, L100.0100, L3100.5400, L501.0185, L500.4050, L501.9820, L506.1000 ####[facility] [address] [place], [address] CBC W/Diff, Automatedon 03-31 Absolute Lymph 1.66 X10 3/uL Normal 0.83-4.51 [facility] Comment on above: Performed By: #### L 501.9060, L100.0100, L3100.5400, L501.9985, L500.4050, L501.9520, L506.1000 ####[facility] [address] [place], [address] Absolute Neut 5.1 X10 3/uL Normal 2.0-7.7 [facility] Comment on above: Performed By: #### L 501.9060, L100.0100, L3100.5400, L501.9985, L500.4050, L501.9520, L506.1000 ####[facility] [address] [place], [address] Basophils/100 WBC (Bld) 0.1 % Normal 0-1 [facility] Comment on above: Performed By: #### L 501.9060, L100.0100, L3100.5400, L501.9985, L500.4050, L501.9520, L506.1000 ####[facility] [address] [place], [address] Eosinophils/100 WBC (Bld) 0.0 % Normal 0-5 [facility] Comment on above: Performed By: #### L 501.9060, L100.0100, L3100.5400, L501.9985, L500.4050, L501.9520, L506.1000 ####[facility] [address] [place], [address] Erythrocyte distribution width (RBC) [Ratio] 14.9 % High 11.6-14.6 [facility] Comment on above: Performed By: #### L 501.9060, L100.0100, L3100.5400, L501.9985, L500.4050, L501.9520, L506.1000 ####[facility] [address] [place], [address] Hematocrit (Bld) [Volume fraction] 40.0 % Normal 40-54 [facility] Comment on above: Performed By: #### L 501.9060, L100.0100, L3100.5400, L501.9985, L500.4050, L501.9520, L506.1000 ####[facility] [address] [place], [address] Hemoglobin (Bld) [Mass/Vol] 12.9 g/dL Low 13.0-16.5 [facility] Comment on above: Performed By: #### L 501.9060, L100.0100, L3100.5400, L501.9985, L500.4050, L501.9520, L506.1000 ####[facility] [address] [facility] [place], [address] IG% 0.400 Normal 0.0-0.9 [facility] Comment on above: Result Comment: IG% - Immature Granulocytes (promyelocytes, myelocytes and metamyelocytes) > 1% indicates that a LEFT SHIFT is Present. Performed By: #### L 501.9060, L100.0100, L3100.5400, L501.9985, L500.4050, L501.9520, L506.1000 ####[facility] [address] [facility] [place], [address] Lymphocytes/100 WBC (Bld) 23.0 % Normal 19-41 [facility] Comment on above: Performed By: #### L 501.9060, L100.0100, L3100.5400, L501.9985, L500.4050, L501.9520, L506.1000 ####[facility] [address] [place], [address] MCH (RBC) [Entitic mass] 25.5 pg Low 27.0-32.0 [facility] Comment on above: Performed By: #### L 501.9060, L100.0100, L3100.5400, L501.9985, L500.4050, L501.9520, L506.1000 ####[facility] [address] [place], [address] MCHC (RBC) [Mass/Vol] 32.3 g/dL Normal 32-36 [facility] Comment on above: Performed By: #### L 501.9060, L100.0100, L3100.5400, L501.9985, L500.4050, L501.9520, L506.1000 ####[facility] [address] [place], [address] MCV (RBC) [Entitic vol] 79.1 fL Low 80-94 [facility] Comment on above: Performed By: #### L 501.9060, L100.0100, L3100.5400, L501.9985, L500.4050, L501.9520, L506.1000 ####[facility] [address] [place], [address] Monocytes/100 WBC (Bld) 6.1 % Normal 0-10 [facility] Comment on above: Performed By: #### L 501.9060, L100.0100, L3100.5400, L501.9985, L500.4050, L501.9520, L506.1000 ####[facility] [address] [place], [address] Neutrophils/100 WBC (Bld) 70.4 % High 47-70 [facility] Comment on above: Performed By: #### L 501.9060, L100.0100, L3100.5400, L501.9985, L500.4050, L501.9520, L506.1000 ####[facility] [address] [place], [address] Nucleated RBC (Bld) [#/Vol] 0 10*3/uL Normal 0-5 [facility] Comment on above: Performed By: #### L 501.9060, L100.0100, L3100.5400, L501.9985, L500.4050, L501.9520, L506.1000 ####[facility] [address] [place], [address] Platelet mean volume (Bld) [Entitic vol] 8.9 fL Normal 6.2-12.0 [facility] Comment on above: Performed By: #### L 501.9060, L100.0100, L3100.5400, L501.9985, L500.4050, L501.9520, L506.1000 ####[facility] [address] [place], [address] Platelets (Bld) [#/Vol] 349 10*3/uL Normal 150-450 [facility] Comment on above: Performed By: #### L 501.9060, L100.0100, L3100.5400, L501.9985, L500.4050, L501.9520, L506.1000 ####[facility] [address] [place], [address] RBC (Bld) [#/Vol] 5.06 10*6/uL Normal 4.6-6.2 [facility] Comment on above: Performed By: #### L 501.9060, L100.0100, L3100.5400, L501.9985, L500.4050, L501.9520, L506.1000 ####[facility] [address] [place], [address] RDW SD 42.6 fl Normal 35.1-43.9 [facility] Comment on above: Performed By: #### L 501.9060, L100.0100, L3100.5400, L501.9985, L500.4050, L501.9520, L506.1000 ####[facility] [address] [place], [address] WBC (Bld) [#/Vol] 7.2 10*3/uL Normal 4.4-11.0 [facility] Comment on above: Performed By: #### L 501.9060, L100.0100, L3100.5400, L501.9985, L500.4050, L501.9520, L506.1000 ####[facility] [address] [place], [address] Comprehensive Metabolic Prof ilon 04-13-2024 Albumin [Mass/Vol] 3.8 g/dL Normal 3.2-5.0 [facility] Comment on above: Performed By: #### L 501.9060, L100.0100, L3100.5400, L501.9985, L500.4050, L501.9520, L506.1000 ####[facility] [address] [place], [place], [id number] Albumin/Globulin [Mass ratio] 1.1 {ratio} Normal 0.9-2.4 [facility] Comment on above: Performed By: #### L 501.9060, L100.0100, L3100.5400, L501.9985, L500.4050, L501.9520, L506.1000 ####[facility] [address] [place], [address] ALK P 103 U/L Normal 45-117 [facility] Comment on above: Performed By: #### L 501.9060, L100.0100, L3100.5400, L501.9985, L500.4050, L501.9520, L506.1000 ####[facility] [address] [place], [place], [id number](432) ALT [Catalytic activity/Vol] 21 U/L Normal 16-61 [facility] Comment on above: Performed By: #### L 501.9060, L100.0100, L3100.5400, L501.9985, L500.4050, L501.9520, L506.1000 ####[facility] [address] [place], [address] AST [Catalytic activity/Vol] 12 U/L Low 15-37 [facility] Comment on above: Performed By: #### L 501.9060, L100.0100, L3100.5400, L501.9985, L500.4050, L501.9520, L506.1000 ####[facility] [address] [place], [address] Bilirubin [Mass/Vol] 0.30 mg/dL Normal 0.20-1.00 [facility] Comment on above: Result Comment: For patients on eltrombopag therapy, use of Dimension [place] TBIL is not recommended. Performed By: #### L 501.9060, L100.0100, L3100.5400, L501.9985, L500.4050, L501.9520, L506.1000 ####[facility] [address] [place], [address] BUN/CRE 11.4 RATIO Normal 10-20 [facility] Comment on above: Performed By: #### L 501.9060, L100.0100, L3100.5400, L501.9985, L500.4050, L501.9520, L506.1000 ####[facility] [address] [place], [address] CA,Total 9.3 mg/dL Normal 8.5-10.1 [facility] Comment on above: Performed By: #### L 501.9060, L100.0100, L3100.5400, L501.9985, L500.4050, L501.9520, L506.1000 ####[facility] [address] [place], [address] Chloride [Moles/Vol] 107 mmol/L Normal 98-107 [facility] Comment on above: Performed By: #### L 501.9060, L100.0100, L3100.5400, L501.9985, L500.4050, L501.9520, L506.1000 ####[facility] [address] [place], [address] CO2 [Moles/Vol] 26.0 mmol/L Normal 21.0-32.0 [facility] Comment on above: Performed By: #### L 501.9060, L100.0100, L3100.5400, L501.9985, L500.4050, L501.9520, L506.1000 ####[facility] [address] [place], [address] Creatinine [Mass/Vol] 0.70 mg/dL Normal 0.70-1.30 [facility] Comment on above: Result Comment: The validity of the calculated GFR GFRAA in patients over 70 years has not been determined. Clinical correlation is essential. Performed By: #### L 501.9060, L100.0100, L3100.5400, L501.9985, L500.4050, L501.9520, L506.1000 ####[facility] [address] [place], [address] EST GFR - AA 169 mL/min Normal >60 [facility] Comment on above: Result Comment: Afri can Montserratian GFR Calc Performed By: #### L 501.9060, L100.0100, L3100.5400, L501.9985, L500.4050, L501.9520, L506.1000 ####[facility] [address] [place], [address] GAP 5 Normal 5-15 [facility] Comment on above: Performed By: #### L 501.9060, L100.0100, L3100.5400, L501.9985, L500.4050, L501.9520, L506.1000 ####[facility] [address] [place], [address] GFR/1.73 sq M.predicted among non-blacks MDRD (S/P/Bld) [Vol rate/Area] 140 mL/min/{1.73_m2} Normal >60 [facility] Comment on above: Result Comment: Non- GFR Calc Performed By: #### L 501.9060, L100.0100, L3100.5400, L501.9985, L500.4050, L501.9520, L506.1000 ####[facility] [address] [place], [address] Globulin (S) [Mass/Vol] 3.6 g/dL Normal 2.2-4.2 [facility] Comment on above: Performed By: #### L 501.9060, L100.0100, L3100.5400, L501.9985, L500.4050, L501.9520, L506.1000 ####[facility] [address] [place], [address] Glucose [Mass/Vol] 92 mg/dL Normal 74-106 [facility] Comment on above: Performed By: #### L 501.9060, L100.0100, L3100.5400, L501.9985, L500.4050, L501.9520, L506.1000 ####[facility] [address] [place], [address] Potassium [Moles/Vol] 4.0 mmol/L Normal 3.5-5.1 [facility] Comment on above: Performed By: #### L 501.9060, L100.0100, L3100.5400, L501.9985, L500.4050, L501.9520, L506.1000 ####[facility] [address] [place], [address] Sodium [Moles/Vol] 138 mmol/L Normal 136-145 [facility] Comment on above: Performed By: #### L 501.9060, L100.0100, L3100.5400, L501.9985, L500.4050, L501.9520, L506.1000 ####[facility] [address] [place], [address] T PROT 7.4 g/dL Normal 6.4-8.2 [facility] Comment on above: Performed By: #### L 501.9060, L100.0100, L3100.5400, L501.9985, L500.4050, L501.9520, L506.1000 ####[facility] [address] [place], [address] Urea nitrogen [Mass/Vol] 8 mg/dL Normal 7-18 [facility] Comment on above: Performed By: #### L 501.9060, L100.0100, L3100.5400, L501.9985, L500.4050, L501.9520, L506.1000 ####[facility] [address] [place], [address] Hemoglobin A1con 04-13-2024 HbA1c (Bld) [Mass fraction] 5.6 % Normal 3.8-5.6 [facility] Comment on above: Result Comment: Norm al < 5.7 % Prediabetic 5.7 - 6.4 % Diabetic >or= 6.5 % Please note range changes. Performed By: #### L 501.9060, L100.0100, L3100.5400, L501.9985, L500.4050, L501.9520, L506.1000 ####[facility] [address] [place], [address] Lithiumon 04-13-2024 LI 0.30 mmol/L Low 0.60-1.20 [facility] Comment on above: Order Comment: Performed By: #### L 501.9060, L100.0100, L3100.5400, L501.9985, L500.4050, L501.9520, L506.1000 ####[facility] [address] [place], [address] Thyroid Stim Hormone (TSH)on 04-13-2024 TSH 0.809 uIU/mL Normal 0.358-3.740 [facility] Comment on above: Performed By: #### L 501.9060, L100.0100, L3100.5400, L501.9985, L500.4050, L501.9520, L506.1000 ####[facility] [address] [place], [address] Vitamin D,25 Hydroxyon 04-13 Vitamin D 25-OH 7.8 ng/mL Normal [facility] Comment on above: Result Comment: Rebeca min D 25(OH) Status Range Deficiency <20 ng/mL (50nmol/L) Insufficiency 20 - 30 ng/mL (50 - 75 nmol/L) Sufficiency 30 - 100 ng/mL (75 - 250 nmol/L) Toxicity >100 ng/mL (>250 nmol/L) Performed By: #### L 501.9060, L100.0100, L3100.5400, L501.9985, L500.4050, L501.9520, L506.1000 ####[facility] [address] [place], [place], [address] CNOVon 04-10-2024 CNOV Office Visit (MILLIPWS ) -------- LEVY TODD ([id number]) 1995 M Date Time Provider Department 04/10/24 9:40 AM TURNER BUNDY During your visit today, we recorded the following information about you: Pulse Blood pressure Weight Height 86/minute 96/54 137.9 kg 1.778 m Turner Bundy MD 04/10/2024 10:06 AM Signed Patient presents with: Follow Up HPI: Patient presents today for office visit for follow up. Follows with psych. Psych meds have been changed. Doing better. No longer hearing voices or experiencing hallucinations. 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 Has some complaints today of mid-back pain. Ongoing last couple of days. No injury. 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 No trauma. No radicular pain. Refers to pain being directly on the spine. Pain makes it difficult for him to sleep. No shortness of breath or cough or chest pain. Had not mentioned pain until now. Has tylenol ordered prn but did not mention it until today. No heartburn. No issues with meds. MEDICATIONS: Current Outpatient Medications Medication Sig lithium carbonate 600 mg capsule Take 600 mg by mouth daily at bedtime. gabapentin (NEURONTIN) 300 mg capsule Take 300 mg by mouth two times a day. paliperidone ER (INVEGA) 3 mg 24 hr tablet Take 3 mg by mouth once daily. acetaminophen (TYLENOL EXTRA STRENGTH) 500 mg tablet Take 2 tablets by mouth every 6 hours as needed for pain. omeprazole (PRILOSEC) 40 mg capsule Take 1 capsule by mouth once daily. albuterol HFA (PROAIR HFA) 90 mcg/actuation inhaler Inhale 2 Puffs as instructed every 6 hours as needed. lithium carbonate (ESKALITH) 300 mg capsule Take 2 capsules by mouth two times a day. (Patient taking differently: Take 300 mg by mouth every morning.) lamoTRIgine (LAMICTAL) 200 mg tablet Take 1 tablet by mouth two times a day. sertraline (ZOLOFT) 100 mg tablet Take 100 mg by mouth once daily. No current facility-administered medications for this visit. ALLERGIES: ALLERGIES Allergen Reactions Concerta [Methylphe* Mental Status Change hyper Depakote [Divalproe* Intolerance Phenobarbital Intolerance Ritalin [...] delivered emergency because cord wrapped around his neck. born 8 lbs. went home with mom. [...] Never Smokeless tobacco: Never Vaping Use Vaping status: Never Used Substance Use Topics Alcohol use: Never Drug use: Never Reviewed current medications, allergies, past medical history, surgical history, family history and social history today. REVIEW OF SYSTEMS No cough or wheezing. All other reviewed and negative other than HPI. HEALTH MAINTENANCE: Reviewed health maintenance issues today and recommended the following in detail. There are no preventive care reminders to display for this patient. VITALS: BP 96/54 Pulse 86 Ht 177.8 cm (5' 10) Wt (!) 137.9 kg (304 lb) SpO2 96% BMI 43.62 kg/m? Weight is down. They are working on the diet. Last 4 Encounter Wt Readings: Date: Wt: 04/10/2024 137.9 kg (304 lb) 02/27/2024 142.2 kg (313 lb 9.6 oz) 01/18/2024 148.5 kg (327 lb 6.1 oz) 12/02/2023 146.5 kg (323 lb) PHYSICAL EXAMINATION: General appearance: Well (more content not included)... Normal [facility] CNOVon 02-27-2024 CNOV Office Visit (FAMPWS ) -------- MAGNOLIADEBRAW ([id number]) 1995 M Date Time Provider Department 02/27/24 11:00 AM TURNER BUNDY During your visit today, we recorded the following information about you: Temperature Pulse Blood pressure Weight 98.2 degrees 85/minute 110/72 142.2 kg Height 1.778 m Turner Bundy MD 02/27/2024 11:39 AM Signed Patient presents with: Hospital F/U HPI: Patient presents today for office visit for hospital follow up. 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 HOSPITAL/ER FOLLOW UP: Reason for visit: Hearing voices, hallucinations and suicidal ideation after receiving Invega injection. Which facility: Started at [facility] and transferred to [facility]. Date of visit: 01/03/24 to 01/13/24 Diagnosis: Schizoaffective disorder Testing done: CT brain due to fall in hospital. Labs. Treatment given: Med changes. Now on Invega pill form. Current symptoms: Still hearing voices. States not as bad as they were. Denies hallucinations at this time. No suicidal ideation. No thoughts of harming others. Is back to his baseline due to accompanying staff. Sees psychiatry regularly. While here today complains of an ongoing cough X 1 week. Started out with a sore throat that progressed into a cough. Sore throat has gone away. Cough is dry. Now with headache. No nausea or vomiting. Has sinus pressure. MEDICATIONS: Current Outpatient Medications Medication Sig gabapentin (NEURONTIN) 300 mg capsule Take 300 mg by mouth two times a day. mirtazapine (REMERON) 15 mg tablet Take 15 mg by mouth once daily. paliperidone ER (INVEGA) 3 mg 24 hr tablet Take 3 mg by mouth once daily. acetaminophen (TYLENOL EXTRA STRENGTH) 500 mg tablet Take 2 tablets by mouth every 6 hours as needed for pain. omeprazole (PRILOSEC) 40 mg capsule Take 1 capsule by mouth once daily. albuterol HFA (PROAIR HFA) 90 mcg/actuation inhaler Inhale 2 Puffs as instructed every 6 hours as needed. benztropine (COGENTIN) 0.5 mg tablet Take 1 tablet by mouth two times a day. lithium carbonate (ESKALITH) 300 mg capsule Take 2 capsules by mouth two times a day. lamoTRIgine (LAMICTAL) 200 mg tablet Take 1 tablet by mouth two times a day. budesonide (PULMICORT FLEXHALER) 90 mcg/actuation aepb Inhale 2 Puffs as instructed two times a day. urea (CARMOL) 40 % Apply to affected area once daily. sertraline (ZOLOFT) 100 mg tablet Take 100 mg by mouth once daily. predniSONE (DELTASONE) 10 mg tablet Take 4 tabs daily for 3 days, then 2 tabs daily for 3 days, then 1 tab daily for 3 days with food. (Patient not taking: Reported on 02/27/2024) dicyclomine (BENTYL) 10 mg capsule Take 1 capsule by mouth before meals and at bedtime. (Patient not taking: Reported on 02/27/2024) lactase (LACTAID) 3,000 unit tablet Take 1 tablet by mouth three times a day with meals. (Patient not taking: Reported on 02/27/2024) lidocaine (LIDODERM) 5 % Apply 1 Patch as directed every 12 hours. Remove old patch prior to placing new patch. Location: left leg (Patient not taking: Reported on 02/27/2024) diclofenac (VOLTAREN ARTHRITIS PAIN) 1 % topical gel Apply 2 g to affected area four times daily. (Patient not taking: Reported on 02/27/2024) Cholecalciferol, Vitamin D3, 50 mcg (2,000 unit) cap Take 1 capsule by mouth once daily. (Patient not taking: Reported on 02/27/2024) hydrOXYzine pamoate (VISTARIL) 25 mg capsule Take 1 capsule by mouth three times a day as needed. (Patient not taking: Reported on 02/27/2024) paliperidone palm, 3 month, (INVEGA TRINZA) 819 mg/2.63 mL syrg To be given at office (Patient not taking: Reported on 02/27/2024) risperiDONE (RISPERDAL) 0.5 mg tablet Take 3 tablets by mouth two times a day. triamcinolone acetonide (KENALOG) 0.1 % ointment Apply to affected area two times a day. (Patient not taking: Reported on 02/27/2024) fluticasone (FLONASE) 50 mcg/actuation nasal spray Use 2 Sprays in each nostril once daily. Rinse mouth after use. (Patient not taking: Reported on 02/27/2024) ondansetron orally disintegrating (ZOFRAN ODT) 4 mg disintegrating tablet Take 1 tablet by mouth every 8 hours as needed for Nausea/Vomiting. (Patient not taking: Reported on 02/27/2024) No current facility-administered medications for this visit. 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 Normal [facility] CNOVon 01-18-2024 CNOV Office Visit (WSTR ) -------- LEVY TODD ([id number]) 1995 M Date Time Provider Department 01/18/24 8:45 AM JINA GAYLE [facility] During your visit today, we recorded the following information about you: Temperature Pulse Respiration Blood pressure 98.2 degrees 104/minute 16/minute 118/70 Weight 148.5 kg Jina Gayle APRN.CNP 01/18/2024 10:23 AM Signed This note was created using NoteWriter. Subjective Levy Todd is a 28 year old male. 28 year old male with PMH asthma presents for illness. Acute onset yesterday + cough +chest congestion +wheezing +sore throat +nasal congestion Denies body aches Denies fatigue Denies N/V/D Denies body aches Denies fever Denies providing homeopathic or OTC Of note recently discharged after [facility] stay [facility] per patient Patient is accompanied by supervisor brew houseDianna The history is provided by the patient and a caregiver. No veterinary medicine scientist was used. Sore Throat This is a new problem. The current episode started yesterday. The problem has been unchanged. Neither side of throat is experiencing more pain than the other. There has been no fever. The pain is at a severity of 5/10. The pain is moderate. Associated symptoms include congestion, coughing and swollen glands. Pertinent negatives include no abdominal pain, diarrhea, drooling, ear discharge, ear pain, headaches, hoarse voice, plugged ear sensation, neck pain, shortness of breath, stridor, trouble swallowing or vomiting. He has had exposure to strep. He has had no exposure to mono. He has tried nothing for the symptoms. The treatment provided no relief. PAST MEDICAL HISTORY Diagnosis Date Acute cholecystitis [...] delivered emergency because cord wrapped around his neck. born 8 lbs. went home with mom. [...] [Methylphenidate Hcl] MEDICATIONS dicyclomine (BENTYL) 10 mg capsuleTake 1 capsule by mouth before meals and at bedtime.Disp: 120 capsuleRfl: 2 albuterol HFA (PROAIR HFA) 90 mcg/actuation inhalerInhale 2 Puffs as instructed every 6 hours as needed.Disp: 18 gRfl: 0 lactase (LACTAID) 3,000 unit tabletTake 1 tablet by mouth three times a day with meals.Disp: 90 tabletRfl: 11 lidocaine (LIDODERM) 5 %Apply 1 Patch as directed every 12 hours. Remove old patch prior to placing new patch. Location: left legDisp: 15 PatchRfl: 0 diclofenac (VOLTAREN ARTHRITIS PAIN) 1 % topical gelApply 2 g to affected area four times daily.Disp: 20 gRfl: 1 omeprazole (PRILOSEC) 40 mg capsuleTake 1 capsule by mouth once daily.Disp: 90 capsuleRfl: 3 Cholecalciferol, Vitamin D3, 50 mcg (2,000 unit) capTake 1 capsule by mouth once daily.Disp: 90 capsuleRfl: 3 benztropine (COGENTIN) 0.5 mg tabletTake 1 tablet by mouth two times a day.Disp: 30 tabletRfl: 2 hydrOXYzine pamoate (VISTARIL) 25 mg capsuleTake 1 capsule by mouth three times a day as needed.Disp: 30 capsuleRfl: 2 lithium carbonate (ESKALITH) 300 mg capsuleTake 2 capsules by mouth two times a day.Disp: 120 capsuleRfl: 5 paliperidone palm, 3 month, (INVEGA TRINZA) 819 mg/2.63 mL syrgTo be given at officeDisp: 1 EachRfl: 3 lamoTRIgine (LAMICTAL) 200 mg tabletTake 1 tablet by mouth two times a day.Disp: 60 tabletRfl: 11 risperiDONE (RISPERDAL) 0.5 mg tabletTake 3 tablets by mouth two times a day.Disp: 180 tabletRfl: 11 triamcinolone acetonide (KENALOG) 0.1 % ointmentApply to affected area two times a day.Disp: 15 gRfl: 0 budesonide (PULMICORT FLEXHALER) 90 mcg/actuation aepbInhale 2 Puffs as instructed two times a day.Disp: 1 EachRfl: 2 urea (CARMOL) 40 %Apply to affected area once daily.Disp: 198 gRfl: 11 fluticasone (FLONASE) 50 mcg/actuation nasal sprayUse 2 Sprays in each nostril once daily. Rinse mouth after use.Disp: 16 gRfl: 0 sertraline (ZOLOFT) 100 mg tabletTake 100 mg (more content not included)... Normal [facility] COVID AND INFLUENZA A/B AND RSV PCR, ROUTINEon 01-18-2024 SARS-CoV-2 (COVID-19) RNA RELL+probe Ql (Unsp spec) SARS-COV-2 (AGENT OF COVID-19) RNA: Not detected INFLUENZA A RNA: Not detected INFLUENZA B RNA: Not detected RESPIRATORY SYNCYTIAL VIRUS (RSV) RNA: Not detected Normal [facility] Comment on above: Performed By: #### C VFLRS #### [facility] CLIA [id number] [address] [place] [address] [place] STREP A MOLECULAR (POC)on Procedural Control Valid [facility] Strep A (POCT) Negative Negative [facility] XR CHEST 2V FRONTAL/LATon XR CHEST 2V FRONTAL/LAT * * *Final Repor t* * * DATE OF EXAM: Jan 18 2024 9:34AM WOX [id number] - XR CHEST 2V FRONTAL/LAT / PROCEDURE REASON: Acute cough * * * * Physician Interpretation * * * * EXAMINATION: CHEST RADIOGRAPH (2 VIEW FRONTAL and LATERAL) CLINICAL HISTORY: Acute cough MQ: XC2_6 EXAM DATE/TIME: 01/18/2024 9:34 AM COMPARISON: Chest x-ray of 11/10/2023 RESULT: Lines, tubes, and devices: None. Lungs and pleura: No consolidation. No lung mass. No pleural effusion. No pneumothorax. Cardiomediastinal silhouette: Normal cardiomediastinal silhouette. Bones and soft tissues: Unremarkable. IMPRESSION: No acute radiographic abnormality. Box Estimator: [facility] Transcribe Date/Time: Jan 18 2024 9:37A Dictated by : MARICHUY YODER MD This examination was interpreted and the report reviewed and electronically signed by: MARICHUY YODER MD on Jan 18 2024 9:38AM EST [id number] Normal [facility] XR Chest PA and Lateralon IMPRESSION: No acute radiographic abnormality. Box Estimator: [facility] Transcribe Date/Time: Jan 18 2024 9:37A Dictated by : MARICHUY YODER MD This examination was interpreted and the report reviewed and electronically signed by: MARICHUY YODER MD on Jan 18 2024 9:38AM EST DIVISION OF RADIOLOGY * * *Final Report* * * DATE OF EXAM: Jan 18 2024 9:34AM WOX 5291 - XR CHEST 2V FRONTAL/LAT / PROCEDURE REASON: Acute cough * * * * Physician Interpretation * * * * EXAMINATION: CHEST RADIOGRAPH (2 VIEW FRONTAL & LATERAL) CLINICAL HISTORY: Acute cough MQ: XC2_6 EXAM DATE/TIME: 01/18/2024 9:34 AM COMPARISON: Chest x-ray of 11/10/2023 RESULT: Lines, tubes, and devices: None. Lungs and pleura: No consolidation. No lung mass. No pleural effusion. No pneumothorax. Cardiomediastinal silhouette: Normal cardiomediastinal silhouette. Bones and soft tissues: Unremarkable. DIVISION OF RADIOLOGY Provider, [facility] - 01/18/2024 * * *Final Report* * * DATE OF EXAM: Jan 18 2024 9:34AM WOX 5291 - XR CHEST 2V FRONTAL/LAT / PROCEDURE REASON: Acute cough * * * * Physician Interpretation * * * * EXAMINATION: CHEST RADIOGRAPH (2 VIEW FRONTAL & LATERAL) CLINICAL HISTORY: Acute cough MQ: XC2_6 EXAM DATE/TIME: 01/18/2024 9:34 AM COMPARISON: Chest x-ray of 11/10/2023 RESULT: Lines, tubes, and devices: None. Lungs and pleura: No consolidation. No lung mass. No pleural effusion. No pneumothorax. Cardiomediastinal silhouette: Normal cardiomediastinal silhouette. Bones and soft tissues: Unremarkable. IMPRESSION IMPRESSION: No acute radiographic abnormality. Box Estimator: [facility] Transcribe Date/Time: Jan 18 2024 9:37A Dictated by : MARICHUY YODER MD This examination was interpreted and the report reviewed and electronically signed by: MARICHUY YODER MD on Jan 18 2024 9:38AM EST [facility] Radiology Study observation (narrative) Nelida Wall XR Chest PA and LateralOrder ed By: [facility]cf Provider on 01-18-2024 [facility] LITHIUM LEVELon 11-14-2024 [place] [Moles/Vol] 0.1 mmol/L Low 0.6-1.2 [facility] Comment on above: Performed By: #### [id number] #### [facility] [address] [place], [place] [address] [address] [id number] [address] HEAD OR BRAIN WITHOUT CON TRASTon 01-09-2024 CT HEAD OR BRAIN WITHOUT CONTRAST EXAMINATION: CT HEAD OR BRAIN WITHOUT CONTRAST, 01/09/2024 12:23 pm HISTORY: 28 y/o M. fall, hit head. ORDERING SYSTEM PROVIDED HISTORY: fall, hit head, TECHNOLOGIST PROVIDED HISTORY: Illness/Other Reason for exam: fall, hit head Encounter Type: Initial Additional signs and symptoms: - ORDERING SYSTEM PROVIDED DIAGNOSIS CODES: COMPARISON: CT head 01/08/2024. TECHNIQUE: CT of the head with axial, sagittal, coronal reformats created and reviewed. Images obtained without intravenous contrast. Dose reduction techniques were achieved by using automated exposure control and/or adjustment of mA and/or kV according to patient size and/or use of iterative reconstruction technique. 3D Processing: None. 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 No acute intracranial hemorrhage. No territorial loss of triana-white differentiation. The ventricular system is normal in size and morphology. No abnormal extra-axial fluid collections or shift of midline structures. Patent basal cisterns. No depressed or displaced calvarial fracture. Visualized paranasal sinuses and temporal bone structures are well-aerated. The orbits and skull base are unremarkable. IMPRESSION: 1. No acute intracranial hemorrhage nor large territorial infarct. 2. Congenital findings as described. 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 RAD/[place] Workstation ID: [id number] Dictated by: VICTORIANO TELLES on TueJan 09, 2024 12:55:45 PM EST Transcribed by: BRETT LAW on TueJan 09, 2024 1:04:19 PM EST Finalized by: VICTORIANO TELLES on TueJan 09, 2024 6:50:21 PM EST Normal [facility] Comment on above: Order Comment: Injur y/Trauma or Illness?:Illness/Other How long have you had these symptoms (acute/chronic)?:Acute Reason for exam?:fall, hit head Type of Exam?:Initial Additional signs and symptoms?:- CT HEAD OR BRAIN WITHOUT CON TRASTon 01-08-2024 CT HEAD OR BRAIN WITHOUT CONTRAST EXAMINATION: CT HEAD OR BRAIN WITHOUT CONTRAST HISTORY: ORDERING SYSTEM PROVIDED HISTORY: Head trauma, minor, normal mental status (Age 18-64y); Fall/head trauma, TECHNOLOGIST PROVIDED HISTORY: Injury/Trauma Reason for exam: Head trauma, minor, normal mental status (Age 18-64y), Fall/head trauma Encounter Type: Initial Mechanism of injury: . ORDERING SYSTEM PROVIDED DIAGNOSIS CODES: COMPARISON: None TECHNIQUE: CT examination of the head without IV contrast. Dose reduction techniques were achieved by using automated exposure control and/or adjustment of mA and/or kV according to patient size and/or use of iterative reconstruction technique. FINDINGS: In the midline there is a fat density mass which is probably a lipoma. This may be in conjunction with partial agenesis of the corpus callosum. This measures approximately 17 x 5 x 10 mm. There may be an associated cavum septum pellucidum. Ventricles and sulci are normal in size and configuration. No extraaxial collection. No intracranial hemorrhage. No mass effect or edema. No CT evidence of large territorial infarction. There is soft tissue density in the external auditory canals bilaterally, likely cerumen. Visualized paranasal sinuses are well aerated. Mastoids are clear. Calvarium is unremarkable. IMPRESSION: 1. No evidence of acute intracranial pathology. 2. Fat containing midline mass, likely lipoma possibly in conjunction with partial agenesis of the corpus callosum. Correlate clinically and consider follow-up MRI of the brain without and with contrast on a nonemergent basis. Workstation ID: [id number] Dictated by: JENNIFER BURNS on TueJan 08, 2024 8:30:43 PM EST Transcribed by: JENNIFER BURNS on TueJan 08, 2024 8:30:43 PM EST Finalized by: JENNIFER BURNS on TueJan 08, 2024 8:30:43 PM EST Normal [facility] Comment on above: Order Comment: Injur y/Trauma or Illness?:Injury/Trauma How long have you had these symptoms (acute/chronic)?:Acute Reason for exam?:Head trauma, minor, normal mental status (Age 18-64y), Fall/head trauma Type of Exam?:Initial Mechanism of injury?:. CONSULTon 01-05-2024 CONSULT ---- -------- Attestation signed by Ольга Smith MD at 01/17/2024 9:16 PM I did not participate in the care of the patient on 01/04/24 but am cosigning due to [facility] policy. An attending physician was available during the BINTA evaluation. Ольга Smith MD 01/17/24 -------- [facility] CONSULTATION NOTE Patient Name: Levy Todd : 1995 MR #: [id number] Admit Date: [id number] Physicians: Turner Bundy MD (Family); No ref. provider found (Referring) Levy Todd is a 28 y.o. male patient of Turner Bundy MD with history of GERD, asthma, depression who has been admitted to [facility] inpatient behavioral unit 01/04/2024. [facility] has been consulted by Boy Rock MD for medical management. Suicidal ideation Depression Management per primary Asthma PRN albuterol GERD PPI Foot pain PRN tylenol Urea cream Voltaren gel PRN Medication Reconciliation: Verified Code Status: Full Code - Unverified Thank you for the consult. We will sign off at this time. Quality Measures DVT Prophylaxis: Ambulation Grant Catheter: Absent Chief Complaint [facility] consulted by Boy Rock MD for medical management History of Present Illness Levy Todd is a 28 y.o. male patient of Turner Bundy MD with history of GERD, asthma, depression who has been admitted to [facility] inpatient behavioral unit 01/04/2024. [facility] has been consulted by Boy Rock MD for medical management. Patient confirms past medical history as outlined above. C/o bilateral foot pain. No wounds. Takes urea cream for this at home. NO other complaints. Past Medical History History reviewed. No pertinent past medical history. Past Surgical History History reviewed. No pertinent surgical history. Family History History reviewed. No pertinent family history. Social History Social History Tobacco Use Smoking Status Never Passive exposure: Never Smokeless Tobacco Never Social History Substance and Sexual Activity Alcohol Use Never Social History Substance and Sexual Activity Drug Use Never Allergy Information I have reviewed the patient's allergies. Concerta [methylphenidate], Depakote [divalproex], Milk, Phenobarbital, and Tegretol [carbamazepine] Home Medications Home medications were reviewed. Review Of Systems All relevant systems have been reviewed and are negative except as noted in HPI or below Physical Examination BP 132/85 (BP Location: Right arm, Patient Position: Sitting) Pulse 92 Temp 98.3 degrees F (36.8 degrees C) (Oral) Resp 16 Ht 5' 11 Wt (!) 144.7 kg (319 lb) SpO2 95% BMI 44.49 kg/m General Appearance: alert, well appearing, and in no acute distress HEENT: Head- normocephalic; Eyes- PERRLA, EOMI; Ears- external auditory canals clear, hearing intact; Nose- no nasal discharge; Throat- oropharynx normal Cardiovascular: regular rate and rhythm; normal S1, S2; no murmurs, rubs, clicks or gallops; no peripheral edema Respiratory: lungs clear to auscultation; without wheezes, rales or rhonchi Neurological: alert, oriented x 3, normal speech; no focal findings or movement disorder noted Cranial Nerves: II: visual ehck full. III, IV, : extraocular range intact. V: sensation intact. VII: facial symmetric with 5/5 strength. VIII: hearing intact to voice and finger rub. IX, X: palate elevates symmetrically. XI: shrugs shoulders 5/5 strength bilaterally. XII: tongue protrudes in midline. Sensation -grossly symmetrical. Motor strength 5/5 all over. DTR 2+ in the UE and LE bilaterally. Musculoskeletal: no significant deformity or tenderness to palpation Skin: normal coloration, texture and turgor; no lesions or eruptions Psych: normal mood and affect Laboratory and Additional Data Reviewed Laboratory 01/05/24 10:46 AM Microbiology 01/05/24 10:46 AM Radiology 01/05/24 10:46 AM Cardiology 01/05/24 10:46 AM Medications 01/05/24 10:46 AM Transcriptions 01/05/24 10:46 AM AUTHENTICATED BY ОЛГЬА SMITH, ON 01/17/2024 21:16:29 Normal [facility] BASIC METABOLIC PANELon 11-0 Anion gap [Moles/Vol] 17 mmol/L Normal 10-20 [facility] Comment on above: Order Comment: [facility] has implemented the eGFR calculation approach that does not have a coefficient for race that conforms to the NKF-ASN Task Force Recommendations. Performed By: #### [id number] #### LAB [address] [place], [place] [address] Woo Sauer M.D. [id number] Calcium [Mass/Vol] 9.3 mg/dL Normal 8.4-10.2 [facility] Comment on above: Order Comment: [facility] has implemented the eGFR calculation approach that does not have a coefficient for race that conforms to the NKF-ASN Task Force Recommendations. Performed By: #### [id number] #### [facility] [address] [place], [place] [address] Woo Sauer M.D. [id number] Chloride [Moles/Vol] 105 mmol/L Normal 98-108 [facility] Comment on above: Order Comment: [facility] has implemented the eGFR calculation approach that does not have a coefficient for race that conforms to the NKF-ASN Task Force Recommendations. Performed By: #### [id number] #### [facility] [address] [place], [place] [address] Woo Sauer M.D. [id number] Creatinine [Mass/Vol] 0.74 mg/dL Normal 0.50-1.30 [facility] Comment on above: Order Comment: [facility] has implemented the eGFR calculation approach that does not have a coefficient for race that conforms to the NKF-ASN Task Force Recommendations. Performed By: #### [id number] #### [facility] [address] [place] [address] Woo Sauer M.D. [id number] EGFR 125 mL/min/1.73 m2 Normal >=60 [facility] Comment on above: Order Comment: [facility] has implemented the eGFR calculation approach that does not have a coefficient for race that conforms to the NKF-ASN Task Force Recommendations. Result Comment: Daniela mated GFR was calculated using the 2020 CKD-EPI creatinine equation. Performed By: #### [id number] #### [facility] [address] [place] [address] Woo Sauer M.D. [id number] Glucose [Mass/Vol] 99 mg/dL Normal 65-99 [facility] Comment on above: Order Comment: [facility] has implemented the eGFR calculation approach that does not have a coefficient for race that conforms to the NKF-ASN Task Force Recommendations. Performed By: #### [id number] #### [facility] [address] [place] [address] Woo Sauer M.D. [id number] HCO3 (Bld) [Moles/Vol] 23 mmol/L Normal 21-32 [facility] Comment on above: Order Comment: [facility] has implemented the eGFR calculation approach that does not have a coefficient for race that conforms to the NKF-ASN Task Force Recommendations. Performed By: #### [id number] #### [facility] [address] [place] [address] Woo Sauer M.D. [id number] Potassium [Moles/Vol] 3.9 mmol/L Normal 3.5-5.1 [facility] Comment on above: Order Comment: [facility] has implemented the eGFR calculation approach that does not have a coefficient for race that conforms to the NKF-ASN Task Force Recommendations. Performed By: #### 4 [id number] #### [facility] [address] [place] [address] Woo Sauer M.D. [id number] Sodium [Moles/Vol] 141 mmol/L Normal 135-145 [facility] Comment on above: Order Comment: [facility] has implemented the eGFR calculation approach that does not have a coefficient for race that conforms to the NKF-ASN Task Force Recommendations. Performed By: #### [id number] #### [facility] [address] [place] [address] Woo Sauer M.D. [id number] Urea nitrogen [Mass/Vol] 12 mg/dL Normal 8-25 [facility] Comment on above: Order Comment: [facility] has implemented the eGFR calculation approach that does not have a coefficient for race that conforms to the NKF-ASN Task Force Recommendations. Performed By: #### [id number] #### [facility] [address] [place] [address] Woo Sauer M.D. [id number] Urea nitrogen/Creatinine [Mass ratio] 16.2 mg/mg Normal 10.0-20.0 [facility] Comment on above: Order Comment: [facility] has implemented the eGFR calculation approach that does not have a coefficient for race that conforms to the NKF-ASN Task Force Recommendations. Performed By: #### [id number] ####[facility] [address] [place] [address] Woo Sauer M.D. [id number] CBC WITH AUTO DIFFERENTIALon 01-04-2024 AUTO NRBC 0.0 % Normal [facility] Comment on above: Performed By: #### L [id number] #### [facility] [address] [place] [address] Woo Sauer M.D. [id number] AUTO NRBC ABS COUNT 0.00 K/mcL Normal 0.00-0.00 [facility] Comment on above: Performed By: #### L [id number] #### [facility] [address] [place] [address] Woo Sauer M.D. [id number] BASOPHILS ABSOLUTE COUNT 0.00 K/mcL Normal 0.00-0.30 [facility] Comment on above: Performed By: #### L [id number] #### [facility] [address] [place] [address] Woo Sauer M.D. [id number] Basophils/100 WBC (Bld) 0.0 % Normal [facility] Comment on above: Performed By: #### L [id number] #### [facility] [address] [place] [address] Woo Sauer M.D. [id number] Eosinophils (Bld) [#/Vol] 0.00 10*3/uL Normal 0.00-0.50 [facility] Comment on above: Performed By: #### L [id number] #### [facility] [address] [place] [address] Woo Sauer M.D. [id number] Eosinophils/100 WBC (Bld) 0.0 % Normal [facility] Comment on above: Performed By: #### L [id number] #### [facility] [address] [place] [address] Woo Sauer M.D. [id number] Erythrocyte distribution width (RBC) [Ratio] 14.6 % Normal 11.6-14.8 [facility] Comment on above: Performed By: #### L [id number] #### [facility] [address] [place] [address] Woo Sauer M.D. [id number] Hematocrit (Bld) [Volume fraction] 39.3 % Low 41.0-53.0 [facility] Comment on above: Performed By: #### L [id number] #### LAB [address] [address] Woo Sauer M.D. [id number] Hemoglobin (Bld) [Mass/Vol] 12.6 g/dL Low 13.5-17.5 [facility] Comment on above: Performed By: #### L [id number] #### LAB [address] [address] Woo Sauer M.D. [id number] IG ABSOLUTE 0.02 K/mcL Normal 0.00-0.30 [facility] Comment on above: Performed By: #### L [id number] #### LAB [address] [address] Woo Sauer M.D. [id number] IG PERCENT 0.30 % Normal [facility] Comment on above: Result Comment: The IG parameter is the percentage of metamyelocytes, myelocytes and promyelocytes. An immature granulocyte count (IG) of 1% or more suggests the possibility of infection, an IG count of 3% is very likely related to an infection. Performed By: #### L [id number] #### LAB [address] [address] Woo Sauer M.D. [id number] Lymphocytes (Bld) [#/Vol] 1.83 10*3/uL Normal 0.90-4.00 [facility] Comment on above: Performed By: #### L [id number] #### LAB [address] [place] [address] Woo Sauer M.D. [id number] Lymphocytes/100 WBC (Bld) 25.8 % Normal [facility] Comment on above: Performed By: #### L [id number] #### LAB [address] [place] [address] Woo Sauer M.D. [id number] MCH (RBC) [Entitic mass] 25.4 pg Low 26.0-34.0 [facility] Comment on above: Performed By: #### L [id number] #### LAB [address] [address] Woo Sauer M.D. [id number] MCV (RBC) [Entitic vol] 79.2 fL Low 80.0-100.0 [facility] Comment on above: Performed By: #### L [id number] #### LAB [address] [address] Woo Saure M.D. [id number] MEAN CORPUSCULAR HEMOGLOBIN CONC 32.1 g/dL Normal 31.0-37.0 [facility] Comment on above: Performed By: #### L [id number] #### LAB [address] [address] Woo Sauer M.D. [id number] Monocytes (Bld) [#/Vol] 0.42 10*3/uL Normal 0.30-0.90 [facility] Comment on above: Performed By: #### L [id number] #### LAB [address] [address] Woo Sauer M.D. [id number] Monocytes/100 WBC (Bld) 5.9 % Normal [facility] Comment on above: Performed By: #### L [id number] #### LAB [address] [address] Woo Sauer M.D. [id number] NEUTROPHILS ABSOLUTE COUNT 4.83 K/mcL Normal 1.70-7.00 [facility] Comment on above: Performed By: #### L [id number] #### LAB [address] [address] Woo Sauer M.D. [id number] Neutrophils/100 WBC (Bld) 68.0 % Normal [facility] Comment on above: Performed By: #### L [id number] #### LAB [address] [address] Woo Sauer M.D. [id number] Platelet mean volume (Bld) [Entitic vol] 8.7 fL Low 9.4-12.4 [facility] Comment on above: Performed By: #### L [id number] #### LAB [address] [address] Woo Sauer M.D. [id number] Platelets (Bld) [#/Vol] 367 10*3/uL Normal 150-400 [facility] Comment on above: Performed By: #### L [id number] #### LAB [address] [address] Woo Sauer M.D. [id number] RBC (Bld) [#/Vol] 4.96 10*6/uL Normal 4.50-5.90 [facility] Comment on above: Performed By: #### L [id number] #### [facility] LAB [address] [address] Woo Sauer M.D. [id number] WBC (Bld) [#/Vol] 7.10 10*3/uL Normal 4.50-11.00 [facility] Comment on above: Performed By: #### L [id number] #### LAB [address] [address] Woo Sauer M.D. [id number] LIPID PANELon 01-04-2024 Cholesterol [Mass/Vol] 142 mg/dL Normal 100-199 [facility] Comment on above: Result Comment: [facility] Guidelines: Cholesterol Desirable: <200 mg/dL Borderline High: 200-239 mg/dL High: greater than or equal to 240 mg/dL Performed By: #### 4 6087 #### LAB [address] [address] Woo Sauer M.D. [id number] Cholesterol in HDL [Mass/Vol] 40 mg/dL Normal 40-59 [facility] Comment on above: Result Comment: [facility] Guidelines: HDL Cholesterol Low: <40 mg/dL Near Optimal: 40-59 mg/dL High: greater than or equal to 60 mg/dL Performed By: #### 4 6087 #### LAB [address] [address] Woo Sauer M.D. [id number] Cholesterol.total/Carol sterol in HDL [Mass ratio] 3.6 {ratio} Normal [facility] Comment on above: Result Comment: Male s Cholesterol/HDL Ratio: Average risk: 5.0 1/2 average risk: 3.4 2 x average risk: 9.6 Performed By: #### 4 6050 #### LAB [address] [address] Woo Sauer M.D. [id number] LDL CHOLESTEROL CALCULATED 78 mg/dL Normal 10-130 [facility] Comment on above: Result Comment: [facility] Guidelines: LDL Cholesterol Optimal: <100 mg/dL Near Optimal/above Optimal: 100-129 mg/dL Borderline High: 130-159 mg/dL High: 160-189 mg/dL Very High: greater than or equal to 190 mg/dL Performed By: #### 4 6087 #### LAB [address] [place], [place] [address] Woo Sauer M.D. [id number] NON HDL CHOL 102 mg/dL Normal [facility] Comment on above: Result Comment: [facility] Cholesterol Education Program Guidelines: NON HDL Cholesterol Desirable: <130 mg/dL Borderline High: 130-159 mg/dL High: 160-189 mg/dL Very High: > or = 190 mg/dL Performed By: #### 4 6087 #### LAB [address] [address] Woo Sauer M.D. [id number] Triglyceride [Mass/Vol] 121 mg/dL Normal 30-150 [facility] Comment on above: Result Comment: [facility] Cholesterol Education Program Guidelines: Triglyceride Normal: <150 mg/dL Borderline High: 150-199 mg/dL High: 200-499 mg/dL Very High: greater than or equal to 500 mg/dL Performed By: #### 4 6087 #### LAB [address] [address] Woo Sauer M.D. [id number] TSH WITH REFLEX FREE T4on TSH Qn 1.47 m[IU]/L Normal 0.27-4.20 [facility] Comment on above: Performed By: #### 4 6612 #### LAB [address] [address] Woo Sauer M.D. [id number] URINALYSISon 01-04-2024 AMORPHOUS CRYSTALS Many Abnormal None Seen , Rare [facility] Comment on above: Order Comment: Micro scopic examination is performed on all urinalysis samples and only positive findings are reported. The test for blood on the chemical analytic portion of urinalysis may also be positive due to hemoglobinuria and myoglobinuria and if red blood cells are present they are quantified by microscopic examination. Performed By: #### 4 6625 #### LAB [address] [address] Woo Sauer M.D. [id number] BACTERIA, URINE None Seen Normal None Seen [facility] Comment on above: Order Comment: Micro scopic examination is performed on all urinalysis samples and only positive findings are reported. The test for blood on the chemical analytic portion of urinalysis may also be positive due to hemoglobinuria and myoglobinuria and if red blood cells are present they are quantified by microscopic examination. Performed By: #### 4 6625 #### LAB [address] [address] Woo Sauer M.D. [id number] BILIRUBIN, URINE Negative Normal Negative [facility] Comment on above: Order Comment: Micro scopic examination is performed on all urinalysis samples and only positive findings are reported. The test for blood on the chemical analytic portion of urinalysis may also be positive due to hemoglobinuria and myoglobinuria and if red blood cells are present they are quantified by microscopic examination. Performed By: #### 4 6625 #### LAB [address] [address] Woo Sauer M.D. [id number] BLOOD, URINE Negative Normal Negative [facility] Comment on above: Order Comment: Micro scopic examination is performed on all urinalysis samples and only positive findings are reported. The test for blood on the chemical analytic portion of urinalysis may also be positive due to hemoglobinuria and myoglobinuria and if red blood cells are present they are quantified by microscopic examination. Performed By: #### 4 6625 #### LAB [address] [address] Woo Saeur M.D. [id number] Clarity (U) Cloudy Abnormal Clear [facility] Comment on above: Order Comment: Micro scopic examination is performed on all urinalysis samples and only positive findings are reported. The test for blood on the chemical analytic portion of urinalysis may also be positive due to hemoglobinuria and myoglobinuria and if red blood cells are present they are quantified by microscopic examination. Performed By: #### 4 6625 ####[facility] LAB [address] [address] Woo Sauer M.D. [id number] Color (U) Yellow Normal Colorless, Yellow [facility] Comment on above: Order Comment: Micro scopic examination is performed on all urinalysis samples and only positive findings are reported. The test for blood on the chemical analytic portion of urinalysis may also be positive due to hemoglobinuria and myoglobinuria and if red blood cells are present they are quantified by microscopic examination. Performed By: #### 4 6625 #### LAB [address] [address] Woo Sauer M.D. [id number] Glucose Ql (U) Negative Normal Negative [facility] Comment on above: Order Comment: Micro scopic examination is performed on all urinalysis samples and only positive findings are reported. The test for blood on the chemical analytic portion of urinalysis may also be positive due to hemoglobinuria and myoglobinuria and if red blood cells are present they are quantified by microscopic examination. Performed By: #### 4 6625 #### LAB [address] [place] [address] Woo Sauer M.D. [id number] Ketones Ql (U) Negative Normal Negative [facility] Comment on above: Order Comment: Micro scopic examination is performed on all urinalysis samples and only positive findings are reported. The test for blood on the chemical analytic portion of urinalysis may also be positive due to hemoglobinuria and myoglobinuria and if red blood cells are present they are quantified by microscopic examination. Performed By: #### 4 6625 #### LAB [address] [address] Woo Sauer M.D. [id number] Leukocyte esterase Test strip Ql (U) Negative Normal Negative [facility] Comment on above: Order Comment: Micro scopic examination is performed on all urinalysis samples and only positive findings are reported. The test for blood on the chemical analytic portion of urinalysis may also be positive due to hemoglobinuria and myoglobinuria and if red blood cells are present they are quantified by microscopic examination. Performed By: #### 4 6625 #### LAB [address] [address] Woo Sauer M.D. [id number] MUCUS, URINE Few Abnormal None Seen, Rare [facility] Comment on above: Order Comment: Micro scopic examination is performed on all urinalysis samples and only positive findings are reported. The test for blood on the chemical analytic portion of urinalysis may also be positive due to hemoglobinuria and myoglobinuria and if red blood cells are present they are quantified by microscopic examination. Performed By: #### 4 6625 #### LAB [address] [address] Woo Sauer M.D. [id number] NITRITE, URINE Negative Normal Negative [facility] Comment on above: Order Comment: Micro scopic examination is performed on all urinalysis samples and only positive findings are reported. The test for blood on the chemical analytic portion of urinalysis may also be positive due to hemoglobinuria and myoglobinuria and if red blood cells are present they are quantified by microscopic examination. Performed By: #### 4 6625 #### LAB [address] [address] Woo Sauer M.D. [id number] pH (U) 7.0 [pH] Normal 5.0-7.0 [facility] Comment on above: Order Comment: Micro scopic examination is performed on all urinalysis samples and only positive findings are reported. The test for blood on the chemical analytic portion of urinalysis may also be positive due to hemoglobinuria and myoglobinuria and if red blood cells are present they are quantified by microscopic examination. Performed By: #### 4 6625 #### LAB [address] [address] Woo Sauer M.D. [id number] PROTEIN, URINE Negative Normal Negative [facility] Comment on above: Order Comment: Micro scopic examination is performed on all urinalysis samples and only positive findings are reported. The test for blood on the chemical analytic portion of urinalysis may also be positive due to hemoglobinuria and myoglobinuria and if red blood cells are present they are quantified by microscopic examination. Performed By: #### 4 6625 #### LAB [address] [address] Woo Sauer M.D. [id number] Specific gravity (U) [Rel density] 1.025 Normal 1.005-1.025 [facility] Comment on above: Order Comment: Micro scopic examination is performed on all urinalysis samples and only positive findings are reported. The test for blood on the chemical analytic portion of urinalysis may also be positive due to hemoglobinuria and myoglobinuria and if red blood cells are present they are quantified by microscopic examination. Performed By: #### 4 6625 #### LAB [address] [address] Woo Sauer M.D. [id number] SQUAMOUS EPITHELIAL 3 /hpf Normal 0-4 [facility] Comment on above: Order Comment: Micro scopic examination is performed on all urinalysis samples and only positive findings are reported. The test for blood on the chemical analytic portion of urinalysis may also be positive due to hemoglobinuria and myoglobinuria and if red blood cells are present they are quantified by microscopic examination. Performed By: #### 4 6625 #### LAB [address] [place] [address] Woo Sauer M.D. [id number] UROBILINOGEN, URINE 2.0 mg/dL Abnormal <2.0 [facility] Comment on above: Order Comment: Micro scopic examination is performed on all urinalysis samples and only positive findings are reported. The test for blood on the chemical analytic portion of urinalysis may also be positive due to hemoglobinuria and myoglobinuria and if red blood cells are present they are quantified by microscopic examination. Performed By: #### 4 6625 #### LAB [address] [place] [address] Woo Sauer M.D. [id number] WBC LM.HPF (Urine sed) [#/Area] 6 /[HPF] High 0-5 [facility] Comment on above: Order Comment: Micro scopic examination is performed on all urinalysis samples and only positive findings are reported. The test for blood on the chemical analytic portion of urinalysis may also be positive due to hemoglobinuria and myoglobinuria and if red blood cells are present they are quantified by microscopic examination. Performed By: #### 4 6625 #### LAB [address] [place], [place] [address] Woo Sauer M.D. [id number] 12 Lead EKGon 01-03-2024 12 Lead EKG [facility] [address] [place] [address] 12 Lead EKG 01/03/24 1600 MR#: [id number] Acct: [id number] Name: LEVY TODD Rep #: [id number] : 1995 28 From: Jennifer Houston MD Attending Dr: Status: DEP ER Ordering Dr: Mitzi aCrl DO Date: 01/03/24 Location: ED Sex: M C Admitted: Test Reason : PLACEMENT Blood Pressure : */* mmHG Vent. Rate : 84 BPM Atrial Rate : 84 BPM P-R Int : 152 ms QRS Dur : 88 ms QT Int : 364 ms P-R-T Axes : 12 13 28 degrees QTcB Int : 430 ms Normal sinus rhythm Normal ECG Confirmed by Jennifer Houston ([id number]), tape editor ASHLEIGH PARKER ([id number]) on 01/05/2024 10:01:18 AM Referred By: Confirmed By: Jennifer Houston 01/05/24 1001 Date Jennifer Houston MD CC: Dr. Mitzi Carl DO; Dr. Turner Bundy MD Signed Normal [facility] Alcohol, Blood (Medical)-Ser umon 01-03-2024 SERUM ETOH 4.0 mg/dL Normal [facility] Comment on above: Result Comment: The serum:whole blood ethanol ratio is approximately 1.14 and varies slightly with hematocrit. Medical Alcohol reference interval and critical value in non-tolerant individuals; 50 - 100 Impairment 100 Intoxication 100 - 250 Severe Poisoning 250 - 400 Deep/possible fatal coma Performed By: #### L 100.0100, L501.9100, L505.5000, L500.2500, L501.9060 #### [facility] [address] [place], [address] Basic Metabolic Profile (BMP )on 01-03-2024 BUN/CRE 11.8 RATIO Normal 10-20 [facility] Comment on above: Performed By: #### L 100.0100, L501.9100, L505.5000, L500.2500, L501.9060 #### [facility] [address] [place], [address] CA,Total 9.0 mg/dL Normal 8.5-10.1 [facility] Comment on above: Performed By: #### L 100.0100, L501.9100, L505.5000, L500.2500, L501.9060 #### [facility] [address] [place], [address] Chloride [Moles/Vol] 108 mmol/L High 98-107 [facility] Comment on above: Performed By: #### L 100.0100, L501.9100, L505.5000, L500.2500, L501.9060 #### [facility] [address] [place], [address] CO2 [Moles/Vol] 25.0 mmol/L Normal 21.0-32.0 [facility] Comment on above: Performed By: #### L 100.0100, L501.9100, L505.5000, L500.2500, L501.9060 #### [facility] [address] [place], [address] Creatinine [Mass/Vol] 0.76 mg/dL Normal 0.70-1.30 [facility] Comment on above: Result Comment: The validity of the calculated GFR GFRAA in patients over 70 years has not been determined. Clinical correlation is essential. Performed By: #### L 100.0100, L501.9100, L505.5000, L500.2500, L501.9060 #### [facility] [address] [place], [address] ECRCL 212.02 ml/min Normal [facility] Comment on above: Performed By: #### L 100.0100, L501.9100, L505.5000, L500.2500, L501.9060 #### [facility] [address] [place], [address] EST GFR - AA 154 mL/min Normal >60 [facility] Comment on above: Result Comment: Afri can Montserratian GFR Calc Performed By: #### L 100.0100, L501.9100, L505.5000, L500.2500, L501.9060 #### [facility] [address] [place], [address] GAP 7 Normal 5-15 [facility] Comment on above: Performed By: #### L 100.0100, L501.9100, L505.5000, L500.2500, L501.9060 #### [facility] [address] [place], [address] GFR/1.73 sq M.predicted among non-blacks MDRD (S/P/Bld) [Vol rate/Area] 128 mL/min/{1.73_m2} Normal >60 [facility] Comment on above: Result Comment: Non- GFR Calc Performed By: #### L 100.0100, L501.9100, L505.5000, L500.2500, L501.9060 #### [facility] [address] [place], [address] Glucose [Mass/Vol] 96 mg/dL Normal 74-106 [facility] Comment on above: Performed By: #### L 100.0100, L501.9100, L505.5000, L500.2500, L501.9060 #### [facility] [address] [place], [address] Potassium [Moles/Vol] 3.6 mmol/L Normal 3.5-5.1 [facility] Comment on above: Performed By: #### L 100.0100, L501.9100, L505.5000, L500.2500, L501.9060 #### [facility] [address] [place], [address] Sodium [Moles/Vol] 140 mmol/L Normal 136-145 [facility] Comment on above: Performed By: #### L 100.0100, L501.9100, L505.5000, L500.2500, L501.9060 #### [facility] [address] [place], [address] Urea nitrogen [Mass/Vol] 9 mg/dL Normal 7-18 [facility] Comment on above: Performed By: #### L 100.0100, L501.9100, L505.5000, L500.2500, L501.9060 #### [facility] [address] [place], [address] CBC W/Diff, Automatedon 11-0 5-2023 Absolute Lymph 1.90 X10 3/uL Normal 0.83-4.51 [facility] Comment on above: Performed By: #### L 100.0100, L501.9100, L505.5000, L500.2500, L501.9060 #### [facility] [address] [place], [address] Absolute Neut 4.1 X10 3/uL Normal 2.0-7.7 [facility] Comment on above: Performed By: #### L 100.0100, L501.9100, L505.5000, L500.2500, L501.9060 #### [facility] [address] [place], [address] Basophils/100 WBC (Bld) 0.0 % Normal 0-1 [facility] Comment on above: Performed By: #### L 100.0100, L501.9100, L505.5000, L500.2500, L501.9060 #### [facility] [address] [place], [address] Eosinophils/100 WBC (Bld) 0.0 % Normal 0-5 [facility] Comment on above: Performed By: #### L 100.0100, L501.9100, L505.5000, L500.2500, L501.9060 #### [facility] [address] [place], [address] Erythrocyte distribution width (RBC) [Ratio] 14.3 % Normal 11.6-14.6 [facility] Comment on above: Performed By: #### L 100.0100, L501.9100, L505.5000, L500.2500, L501.9060 #### [facility] [address] [place], [address] Hematocrit (Bld) [Volume fraction] 38.0 % Low 40-54 [facility] Comment on above: Performed By: #### L 100.0100, L501.9100, L505.5000, L500.2500, L501.9060 #### [facility] [address] [place], [address] Hemoglobin (Bld) [Mass/Vol] 12.0 g/dL Low 13.0-16.5 [facility] Comment on above: Performed By: #### L 100.0100, L501.9100, L505.5000, L500.2500, L501.9060 #### [facility] [address] [place], [address] IG% 0.300 Normal 0.0-0.9 [facility] Comment on above: Result Comment: IG% - Immature Granulocytes (promyelocytes, myelocytes and metamyelocytes) > 1% indicates that a LEFT SHIFT is Present. Performed By: #### L 100.0100, L501.9100, L505.5000, L500.2500, L501.9060 #### [facility] [address] [place], [address] Lymphocytes/100 WBC (Bld) 29.5 % Normal 19-41 [facility] Comment on above: Performed By: #### L 100.0100, L501.9100, L505.5000, L500.2500, L501.9060 #### [facility] [address] [place], [address] MCH (RBC) [Entitic mass] 24.9 pg Low 27.0-32.0 [facility] Comment on above: Performed By: #### L 100.0100, L501.9100, L505.5000, L500.2500, L501.9060 #### [facility] [address] [place], [address] MCHC (RBC) [Mass/Vol] 31.6 g/dL Low 32-36 [facility] Comment on above: Performed By: #### L 100.0100, L501.9100, L505.5000, L500.2500, L501.9060 #### [facility] [address] [place], [address] MCV (RBC) [Entitic vol] 79.0 fL Low 80-94 [facility] Comment on above: Performed By: #### L 100.0100, L501.9100, L505.5000, L500.2500, L501.9060 #### [facility] [address] [place], [address] Monocytes/100 WBC (Bld) 7.1 % Normal 0-10 [facility] Comment on above: Performed By: #### L 100.0100, L501.9100, L505.5000, L500.2500, L501.9060 #### [facility] [address] [place], [address] Neutrophils/100 WBC (Bld) 63.1 % Normal 47-70 [facility] Comment on above: Performed By: #### L 100.0100, L501.9100, L505.5000, L500.2500, L501.9060 #### [facility] [address] [place], [address] Nucleated RBC (Bld) [#/Vol] 0 10*3/uL Normal 0-5 [facility] Comment on above: Performed By: #### L 100.0100, L501.9100, L505.5000, L500.2500, L501.9060 #### [facility] [address] [place], [address] Platelet mean volume (Bld) [Entitic vol] 8.5 fL Normal 6.2-12.0 [facility] Comment on above: Performed By: #### L 100.0100, L501.9100, L505.5000, L500.2500, L501.9060 #### [facility] [address] [place], [address] Platelets (Bld) [#/Vol] 341 10*3/uL Normal 150-450 [facility] Comment on above: Performed By: #### L 100.0100, L501.9100, L505.5000, L500.2500, L501.9060 #### [facility] [address] [place], [address] RBC (Bld) [#/Vol] 4.81 10*6/uL Normal 4.6-6.2 [facility] Comment on above: Performed By: #### L 100.0100, L501.9100, L505.5000, L500.2500, L501.9060 #### [facility] [address] [place], [address] RDW SD 40.6 fl Normal 35.1-43.9 [facility] Comment on above: Performed By: #### L 100.0100, L501.9100, L505.5000, L500.2500, L501.9060 #### [facility] [address] [place], [address] WBC (Bld) [#/Vol] 6.5 10*3/uL Normal 4.4-11.0 [facility] Comment on above: Performed By: #### L 100.0100, L501.9100, L505.5000, L500.2500, L501.9060 #### [facility] [address] [place], [address] Emergency Department Summary on 01-03-2024 Emergency Department Summary [facility] Medical Records Department [address] [place] [address] Emergency Department Summary 01/03/24 MR#: [id number] Acct: [id number] Name: LEVY TODD Rep #: [id number] : 1995 28 From: Mitzi Carl DO PCP: Dr. Turner Bundy MD Status:REG ER Location: ED ADDENDUM by Nahum Garcia DO on 01/04/24 at 0638 The patient was signed out to me while awaiting evaluation by crisis center. After evaluation they do feel he would benefit from inpatient treatment. He has been accepted to [facility]. The patient has remained calm and cooperative throughout the manager shift not requiring chemical or physical restraint/sedation. He remains hemodynamically stable and is therefore medically cleared for transfer/placement to a psychiatric center 01/04/24 0638 Cosigner Signature (if applicable): cc: Dr. Turner Bundy MD * Signed HPI HPI - Psych History of Present Illness Chief Complaint: Suicidal Informant: patient and family Narrative Narrative: Patient a 28-year-old male presenting at the request of the counseling center for suicidal thoughts and command hallucinations. Patient states started today she was hearing voices that were telling him to either hang himself or jump in front of a car or jump off a bridge or jump off a roof. He is afraid he will act on that. He was directed to come in by the counseling center. Notes that he was at [facility] a month ago for 3 days for some of his psychiatric crisis as well and the family had to pick him up. Is not clear if he was actually admitted or just in the emergency room. Patient states has a history of schizoaffective disorder, bipolar disorder, depression and anxiety and states he is on Invega. Denies any thoughts of harming others. No other complaints or concerns reported at this time. Notes he had similar symptoms in the past. Denies any alcohol, drug or tobacco use. Is complaining that his feet are hurting denies any injury to them. Denies any excessive walking. 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 Home Medications ???Medication ???Instructions ???Recorded ???Last Taken ???Type omeprazole 40 mg capsule,delayed 40 mg PO DAILY 12/24/15 Unknown History release lamotrigine 200 mg tablet 200 mg PO BID 11/19/20 Unknown History paliperidone 6 mg tablet,extended 3 mg PO QHS 06/02/22 Unknown History release 24 hr paliperidone palm (3 month) 819 819 mg IM Q3M 06/02/22 05/31/22 History mg/2.63 mL intramuscular syringe (Invega Trinza) albuterol sulfate 90 mcg/actuation 2 puff inhalation Q6H PRN 04/17/23 Unknown History aerosol inhaler shortness of breath or wheezing bisacodyl 5 mg tablet,delayed 5 mg PO DAILY PRN constipation 04/17/23 Unknown History release (Dulcolax (bisacodyl)) dicyclomine 10 mg capsule 10 mg PO TID 04/17/23 Unknown History docusate sodium 100 mg capsule 100 mg PO DAILY 04/17/23 Unknown History (Colace) lidocaine 5 % topical patch 1 patch transdermal DAILY 04/17/23 Unknown History lithium carbonate 300 mg capsule 300 mg PO QHS 04/17/23 Unknown History sertraline 100 mg tablet 100 mg PO Q24H 04/17/23 Unknown History triamcinolone acetonide 0.1 % 1 applic topical BID PRN muscle 04/17/23 Unknown History topical ointment relaxer urea 40 % topical cream 1 applic topical DAILY 04/17/23 Unknown History hydroxyzine HCl 25 mg tablet 25 mg PO TID 11/05/24 Unknown History lamotrigine 100 mg tablet 100 mg PO BID 01/03/24 Unknown History mirtazapine 15 mg tablet 15 mg PO QHS 01/03/24 Unknown History quetiapine 25 mg tablet 25 mg PO QHS 01/03/24 Unknown History quetiapine 50 mg tablet 50 mg PO QHS 01/03/24 Unknown History Allergy/AdvReac Type Severity Reaction Status Date / Time bee venom protein (honey bee) Allergy Anaphylaxis Verified 01/03/24 14:02 carbamazepine (From Tegretol) Allergy Unknown Verified 01/03/24 14:02 divalproex sodium (From Allergy Other Verified 01/03/24 14:02 Depakote) methylphenidate (From Allergy Unknown Verified 01/03/24 14:02 Concerta) methylphenidate HCl (From Allergy Unknown Verified 01/03/24 14:02 Ritalin) phenobarbital Allergy Hives Verified 01/03/24 14:02 Family History Other Asthma Diabetes Hypertension Kidney disease Surgical History Hx of cholecystectomy Hx of tympanostomy tubes H/O hernia repair Social History (Revi (more content not included)... Normal [facility] Foot 2 Viewson 01-03-2024 Foot 2 Views [facility] Imaging Services [address] [place], [place] [address] Foot 2 Views MR#: [id number] Acct: [id number] Name: LEVY TODD Rep #: [id number] : 1995 M 28 From: Micha Blue MD PCP: Dr. Turner Bundy MD Status: REG ER Study: Foot 2 Views Date of Exam: 01/03/24 Exam# [id number] Ordering Dr: Mitzi Carl DO [id number] STUDY: X-RAY - RIGHT FOOT CLINICAL: Male, 28 years old. pain TECHNIQUE: 2 view(s) of the foot. COMPARISON: None. FINDINGS: Normal talus,, and tarsal bones. No plantar calcaneal spur and posterior enthesophyte Normal visualized subtalar, talonavicular, calcaneocuboid, tarsal and tarsometatarsal articulations. Normal metatarsi. Normal metatarsophalangeal joint of the great toe. Normal tibial and fibular sesamoid bones. Normal interphalangeal joint of the great toe. Exostosis of the medial aspect of the distal phalanx Normal second through fifth metatarsophalangeal joints. Normal interphalangeal joints and phalanges of the lesser toes. The soft tissue structures are unremarkable. RAD/Foot 2 Views IMPRESSION: No acute fracture or other acute bony pathology. Electronically Signed: Micha Blue MD at 16:28 EST Reading Location ID and State: [address] [place] [address] Tel , Service support , CC: Dr. Mitzi Carl DO; Dr. Turner Bundy MD Box Estimator: Signed Normal [facility] Foot 2 Views [facility] Imaging Services [address] [place] [id number] Foot 2 Views MR#: [id number] Acct: [id number] Name: LEVY TODD Rep #: [id number] : 1995 M 28 From: Micha Blue MD PCP: Dr. Turner Bundy MD Status: REG ER Study: Foot 2 Views Date of Exam: 01/03/24 Exam# [id number] Ordering Dr: Mitzi Carl DO ADDENDUM by Dr. Micha Blue MD on 01/03/24 at 1629 == ADDENDUM == [id number] ADDENDUM: Upon additional review of the images, there is noted to be a proximal medial spur of the distal phalanx of the great toe as well as an exostosis of uncertain clinical significance Electronically Signed: Micha Blue MD at 16:29 EST Reading Location ID and State: [address] [place] [address] Tel , Service support , 01/03/24 1629 Date cc: Dr. Mitzi Carl DO; Dr. Turner Bundy MD * Signed ADDENDUM by Dr. Micha Blue MD on 01/03/24 at 1629 RAD/Foot 2 Views IMPRESSION: undefined 01/03/24 1636 Date cc: Dr. Mitzi Carl DO; Dr. Turenr Bundy MD * Signed [id number] STUDY: X-RAY - LEFT FOOT CLINICAL: Male, 28 years old. PAIN TECHNIQUE: 2 view(s) of the foot. COMPARISON: None. FINDINGS: Normal talus,, and tarsal bones. Small plantar calcaneal spur and posterior enthesophyte Normal visualized subtalar, talonavicular, calcaneocuboid, tarsal and tarsometatarsal articulations. Normal metatarsi. Normal metatarsophalangeal joint of the great toe. Normal tibial and fibular sesamoid bones. Normal interphalangeal joint of the great toe. Normal phalanges of the great toe. Normal second through fifth metatarsophalangeal joints. Normal interphalangeal joints and phalanges of the lesser toes. The soft tissue structures are unremarkable. RAD/Foot 2 Views IMPRESSION: No acute fracture or other significant bony pathology. Electronically Signed: Micha Blue MD at 16:25 EST Reading Location ID and State: [address] [place] [address] Tel , Service support , CC: Dr. Mitzi Carl, DO; Dr. Turner Bundy MD Box Estimator: Signed Normal [facility] Urine Drug Screen (VISTA)on 01-03-2024 AMPHETAMINES Negative Normal <1000 ng/mL [facility] Comment on above: Performed By: #### L 100.0100, L501.9100, L505.5000, L500.2500, L501.9060 #### [facility] [address] [place], [address] BARBITIURATES Negative Normal < 200 ng/mL [facility] Comment on above: Performed By: #### L 100.0100, L501.9100, L505.5000, L500.2500, L501.9060 #### [facility] [address] [place], [address] BENZODIAZIPINE Negative Normal < 200 ng/mL [facility] Comment on above: Performed By: #### L 100.0100, L501.9100, L505.5000, L500.2500, L501.9060 #### [facility] [address] [place], [address] COCAINE Negative Normal < 300 ng/mL [facility] Comment on above: Performed By: #### L 100.0100, L501.9100, L505.5000, L500.2500, L501.9060 #### [facility] [address] [place], [address] ECSTACY Negative Normal < 500 ng/mL [facility] Comment on above: Performed By: #### L 100.0100, L501.9100, L505.5000, L500.2500, L501.9060 #### [facility] [address] [place], [place], [facility] METHADONE Negative Normal < 300 ng/mL [facility] Comment on above: Performed By: #### L 100.0100, L501.9100, L505.5000, L500.2500, L501.9060 #### [facility] [address] [place], [address] OPIATES Negative Normal < 300 ng/mL [facility] Comment on above: Performed By: #### L 100.0100, L501.9100, L505.5000, L500.2500, L501.9060 #### [facility] [address] [place], [address] PCP Negative Normal < 25 ng/mL [facility] Comment on above: Performed By: #### L 100.0100, L501.9100, L505.5000, L500.2500, L501.9060 #### [facility] [address] [place], [address] THC Negative Normal < 50 ng/mL [facility] Comment on above: Performed By: #### L 100.0100, L501.9100, L505.5000, L500.2500, L501.9060 #### [facility] [address] [place], [address] VISTA UDS PH 5 Normal [facility] Comment on above: Performed By: #### L 100.0100, L501.9100, L505.5000, L500.2500, L501.9060 #### [facility] [address] [place], [address] Lithiumon 12-20-2023 [place] [Moles/Vol] 0.3 mmol/L Low 0.50-1.50 [facility] Comment on above: Performed By: #### L IC #### [facility] [address] [place] [address] Programmer Developer: Markus Verdugo MD Date last dose, Unknown Normal [facility] Comment on above: Performed By: #### L IC #### [address] [place] [address] Programmer Developer: Markus Verdugo MD Dose amount, Unknown Normal [facility] Comment on above: Performed By: #### L IC #### [address] [place] [address] Programmer Developer: Markus Verdugo MD Time last dose, Unknown Normal [facility] Comment on above: Performed By: #### L IC #### [address] [address] Programmer Developer: Markus Verdugo MD Hemoglobin A1Con 12-18-2023 HbA1c (Bld) [Mass fraction] 6.0 % High 4.0-5.6 [facility] Comment on above: Performed By: #### G LYHGB #### [address] [address] Programmer Developer: Markus Verdugo MD Lipid Prof, Fastingon 2023 Cholesterol [Mass/Vol] 161 mg/dL Normal <200 [facility] Comment on above: Performed By: #### L IPRF #### [address] [place] [address] Programmer Developer: Markus Verdugo MD Cholesterol in HDL [Mass/Vol] 40 mg/dL Low >40 [facility] Comment on above: Performed By: #### L IPRF #### [address] [place] [address] Programmer Developer: Markus Verdugo MD Cholesterol in LDL [Mass/Vol] 102 mg/dL High <100 [facility] Comment on above: Performed By: #### L IPRF #### [facility] [address] [place] [address] Programmer Developer: Markus Verdugo MD Cholesterol in VLDL [Mass/Vol] 19 mg/dL Normal [facility] Comment on above: Result Comment: No n ormal range established. Performed By: #### L IPRF #### [address] [place] [address] Programmer Developer: Markus Verdugo MD Triglyceride,Fasting 94 mg/dL Normal <150 [facility] Comment on above: Performed By: #### L IPRF #### [address] [place] [address] Programmer Developer: Markus Verdugo MD CPK Total, Creatine Kinaseon 12-16-2023 CPK TOTAL 132 U/L Normal 39-308 [facility] Comment on above: Performed By: #### L 100.0100, L501.9100, L505.5000, L500.2500, L501.9060 #### [facility] [address] [facility] [place], [address] 12 Lead EKGon 12-15-2023 12 Lead EKG [facility] Cardiovascular Services [address] [place] [address] 12 Lead EKG 12/15/23 1726 MR#: [id number] Acct: [id number] Name: LEVY TODD Rep #: [id number] : 1995 28 From: Jennifer Houston MD Attending Dr: Status: REG ER Ordering Dr: Jonnie Boland MD Date: 12/15/23 Location: ED Sex: M C Admitted: Test Reason : Blood Pressure : / mmHG Vent. Rate : 080 BPM Atrial Rate : 080 BPM P-R Int : 164 ms QRS Dur : 096 ms QT Int : 376 ms P-R-T Axes : 003 015 018 degrees QTc Int : 433 ms Normal sinus rhythm Normal ECG Confirmed by Jennifer Houston ([id number]), tape editor ASHLEIGH PARKER ([id number]) on 12/16/2023 1:37:54 PM Referred By: Confirmed By:Jennifer Houston 12/16/23 1337 Date Jennifer Houston MD CC: Dr. Jonnie Boland MD; Dr. Turner Bundy MD Signed Normal [facility] Alcohol, Blood (Medical)-Ser umon 12-15-2023 SERUM ETOH < 3.0 Normal [facility] Comment on above: Result Comment: The serum:whole blood ethanol ratio is approximately 1.14 and varies slightly with hematocrit. Medical Alcohol reference interval and critical value in non-tolerant individuals; 50 - 100 Impairment 100 Intoxication 100 - 250 Severe Poisoning 250 - 400 Deep/possible fatal coma Performed By: #### L 100.0100, L501.9100, L505.5000, L500.2500, L501.9060 #### [facility] [address] [place], [address] CBC W/Diff, Automatedon 11-28 Absolute Lymph 2.69 X10 3/uL Normal 0.83-4.51 [facility] Comment on above: Performed By: #### L 100.0100, L501.9100, L505.5000, L500.2500, L501.9060 #### [facility] [address] [place], [address] Absolute Neut 5.7 X10 3/uL Normal 2.0-7.7 [facility] Comment on above: Performed By: #### L 100.0100, L501.9100, L505.5000, L500.2500, L501.9060 #### [facility] [address] [place], [address] Basophils/100 WBC (Bld) 0.1 % Normal 0-1 [facility] Comment on above: Performed By: #### L 100.0100, L501.9100, L505.5000, L500.2500, L501.9060 #### [facility] [address] [place], [address] Eosinophils/100 WBC (Bld) 0.0 % Normal 0-5 [facility] Comment on above: Performed By: #### L 100.0100, L501.9100, L505.5000, L500.2500, L501.9060 #### [facility] [address] [place], [address] Erythrocyte distribution width (RBC) [Ratio] 14.3 % Normal 11.6-14.6 [facility] Comment on above: Performed By: #### L 100.0100, L501.9100, L505.5000, L500.2500, L501.9060 #### [facility] [address] [place], [address] Hematocrit (Bld) [Volume fraction] 38.3 % Low 40-54 [facility] Comment on above: Performed By: #### L 100.0100, L501.9100, L505.5000, L500.2500, L501.9060 #### [facility] [address] [place], [address] Hemoglobin (Bld) [Mass/Vol] 12.2 g/dL Low 13.0-16.5 [facility] Comment on above: Performed By: #### L 100.0100, L501.9100, L505.5000, L500.2500, L501.9060 #### [facility] [address] [place], [address] IG% 0.400 Normal 0.0-0.9 [facility] Comment on above: Result Comment: IG% - Immature Granulocytes (promyelocytes, myelocytes and metamyelocytes) > 1% indicates that a LEFT SHIFT is Present. Performed By: #### L 100.0100, L501.9100, L505.5000, L500.2500, L501.9060 #### [facility] [address] [place], [address] Lymphocytes/100 WBC (Bld) 29.2 % Normal 19-41 [facility] Comment on above: Performed By: #### L 100.0100, L501.9100, L505.5000, L500.2500, L501.9060 #### [facility] [address] [place], [address] MCH (RBC) [Entitic mass] 25.1 pg Low 27.0-32.0 [facility] Comment on above: Performed By: #### L 100.0100, L501.9100, L505.5000, L500.2500, L501.9060 #### [facility] [address] [place], [address] MCHC (RBC) [Mass/Vol] 31.9 g/dL Low 32-36 [facility] Comment on above: Performed By: #### L 100.0100, L501.9100, L505.5000, L500.2500, L501.9060 #### [facility] [address] [place], [address] MCV (RBC) [Entitic vol] 78.8 fL Low 80-94 [facility] Comment on above: Performed By: #### L 100.0100, L501.9100, L505.5000, L500.2500, L501.9060 #### [facility] [address] [place], [address] Monocytes/100 WBC (Bld) 8.6 % Normal 0-10 [facility] Comment on above: Performed By: #### L 100.0100, L501.9100, L505.5000, L500.2500, L501.9060 #### [facility] [address] [place], [address] Neutrophils/100 WBC (Bld) 61.7 % Normal 47-70 [facility] Comment on above: Performed By: #### L 100.0100, L501.9100, L505.5000, L500.2500, L501.9060 #### [facility] [address] [place], [address] Nucleated RBC (Bld) [#/Vol] 0 10*3/uL Normal 0-5 [facility] Comment on above: Performed By: #### L 100.0100, L501.9100, L505.5000, L500.2500, L501.9060 #### [facility] [address] [place], [address] Platelet mean volume (Bld) [Entitic vol] 9.1 fL Normal 6.2-12.0 [facility] Comment on above: Performed By: #### L 100.0100, L501.9100, L505.5000, L500.2500, L501.9060 #### [facility] [address] [place], [address] Platelets (Bld) [#/Vol] 362 10*3/uL Normal 150-450 [facility] Comment on above: Performed By: #### L 100.0100, L501.9100, L505.5000, L500.2500, L501.9060 #### [facility] [address] [place], [address] RBC (Bld) [#/Vol] 4.86 10*6/uL Normal 4.6-6.2 [facility] Comment on above: Performed By: #### L 100.0100, L501.9100, L505.5000, L500.2500, L501.9060 #### [facility] [address] [place], [address] RDW SD 40.2 fl Normal 35.1-43.9 [facility] Comment on above: Performed By: #### L 100.0100, L501.9100, L505.5000, L500.2500, L501.9060 #### [facility] [address] [place], [address] WBC (Bld) [#/Vol] 9.2 10*3/uL Normal 4.4-11.0 [facility] Comment on above: Performed By: #### L 100.0100, L501.9100, L505.5000, L500.2500, L501.9060 #### [facility] [address] [place], [address] Comprehensive Metabolic [facility] ilon 12-15-2023 Albumin [Mass/Vol] 3.9 g/dL Normal 3.2-5.0 [facility] Comment on above: Performed By: #### L 100.0100, L501.9100, L505.5000, L500.2500, L501.9060 #### [facility] [address] [place], [address] Albumin/Globulin [Mass ratio] 1.1 {ratio} Normal 0.9-2.4 [facility] Comment on above: Performed By: #### L 100.0100, L501.9100, L505.5000, L500.2500, L501.9060 #### [facility] [address] [place], [address] ALK P 96 U/L Normal 45-117 [facility] Comment on above: Performed By: #### L 100.0100, L501.9100, L505.5000, L500.2500, L501.9060 #### [facility] [address] [place], [address] ALT [Catalytic activity/Vol] 28 U/L Normal 16-61 [facility] Comment on above: Performed By: #### L 100.0100, L501.9100, L505.5000, L500.2500, L501.9060 #### [facility] [address] [place], [address] AST [Catalytic activity/Vol] 16 U/L Normal 15-37 [facility] Comment on above: Performed By: #### L 100.0100, L501.9100, L505.5000, L500.2500, L501.9060 #### [facility] [address] [place], [address] Bilirubin [Mass/Vol] 0.20 mg/dL Normal 0.20-1.00 [facility] Comment on above: Result Comment: For patients on eltrombopag therapy, use of Dimension [place] TBIL is not recommended. Performed By: #### L 100.0100, L501.9100, L505.5000, L500.2500, L501.9060 #### [facility] [address] [place], [address] BUN/CRE 10.9 RATIO Normal 10-20 [facility] Comment on above: Performed By: #### L 100.0100, L501.9100, L505.5000, L500.2500, L501.9060 #### [facility] [address] [place], [address] CA,Total 9.2 mg/dL Normal 8.5-10.1 [facility] Comment on above: Performed By: #### L 100.0100, L501.9100, L505.5000, L500.2500, L501.9060 #### [facility] [address] [place], [address] Chloride [Moles/Vol] 108 mmol/L High 98-107 [facility] Comment on above: Performed By: #### L 100.0100, L501.9100, L505.5000, L500.2500, L501.9060 #### [facility] [address] [place], [address] CO2 [Moles/Vol] 25.0 mmol/L Normal 21.0-32.0 [facility] Comment on above: Performed By: #### L 100.0100, L501.9100, L505.5000, L500.2500, L501.9060 #### [facility] [address] [place], [address] Creatinine [Mass/Vol] 0.82 mg/dL Normal 0.70-1.30 [facility] Comment on above: Result Comment: The validity of the calculated GFR GFRAA in patients over 70 years has not been determined. Clinical correlation is essential. Performed By: #### L 100.0100, L501.9100, L505.5000, L500.2500, L501.9060 #### [facility] [address] [place], [address] ECRCL 191.47 ml/min Normal [facility] Comment on above: Performed By: #### L 100.0100, L501.9100, L505.5000, L500.2500, L501.9060 #### [facility] [address] [place], [address] EST GFR - AA 141 mL/min Normal >60 [facility] Comment on above: Result Comment: Afri can Montserratian GFR Calc Performed By: #### L 100.0100, L501.9100, L505.5000, L500.2500, L501.9060 #### [facility] [address] [place], [address] GAP 7 Normal 5-15 [facility] Comment on above: Performed By: #### L 100.0100, L501.9100, L505.5000, L500.2500, L501.9060 #### [facility] [address] [place], [address] GFR/1.73 sq M.predicted among non-blacks MDRD (S/P/Bld) [Vol rate/Area] 116 mL/min/{1.73_m2} Normal >60 [facility] Comment on above: Result Comment: Non- GFR Calc Performed By: #### L 100.0100, L501.9100, L505.5000, L500.2500, L501.9060 #### [facility] [address] [place], [address] Globulin (S) [Mass/Vol] 3.7 g/dL Normal 2.2-4.2 [facility] Comment on above: Performed By: #### L 100.0100, L501.9100, L505.5000, L500.2500, L501.9060 #### [facility] [address] [place], [address] Glucose [Mass/Vol] 85 mg/dL Normal 74-106 [facility] Comment on above: Performed By: #### L 100.0100, L501.9100, L505.5000, L500.2500, L501.9060 #### [facility] [address] [place], [address] Potassium [Moles/Vol] 3.7 mmol/L Normal 3.5-5.1 [facility] Comment on above: Performed By: #### L 100.0100, L501.9100, L505.5000, L500.2500, L501.9060 #### [facility] [address] [place], [address] Sodium [Moles/Vol] 140 mmol/L Normal 136-145 [facility] Comment on above: Performed By: #### L 100.0100, L501.9100, L505.5000, L500.2500, L501.9060 #### [facility] [address] [place], [address] T PROT 7.6 g/dL Normal 6.4-8.2 [facility] Comment on above: Performed By: #### L 100.0100, L501.9100, L505.5000, L500.2500, L501.9060 #### [facility] [address] [place], [address] Urea nitrogen [Mass/Vol] 9 mg/dL Normal 7-18 [facility] Comment on above: Performed By: #### L 100.0100, L501.9100, L505.5000, L500.2500, L501.9060 #### [facility] [address] [place], [address] Emergency Department Summary on 12-15-2023 Emergency Department Summary [facility] Medical Records Department [address] [place] [address] Emergency Department Summary 12/15/23 MR#: [id number] Acct: [id number] Name: LEVY TODD Rep #: [id number] : 1995 28 From: Jonnie Boland MD PCP: Dr. Turner Bundy MD Status:REG ER Location: ED HPI HPI - Psych History of Present Illness Chief Complaint: Suicidal Informant: patient Narrative Narrative: Patient states he has been in a long-term for 2 weeks now because he lives with his mom and his mom is having health issues and cannot care for him anymore. He states he is happy about the place that he is in right now. He states today, the voices that he often hears, started telling him that he needs to kill himself, and he has trouble resisting the voices and wants to because of this. He states this was all of a sudden today. He states just prior to this he was at [employer] and having a good time. Denies any recent illness or injury. He states the voices were telling him to jump out in front of traffic. No new medications states he is compliant with his psychiatric medications. 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 Home Medications ???Medication ???Instructions ???Recorded ???Last Taken ???Type omeprazole 40 mg capsule,delayed 40 mg PO DAILY 12/24/15 Unknown History release lamotrigine 200 mg tablet 200 mg PO BID 11/19/20 Unknown History paliperidone 6 mg tablet,extended 3 mg PO QHS 06/02/22 Unknown History release 24 hr paliperidone palm (3 month) 819 819 mg IM Q3M 06/02/22 05/31/22 History mg/2.63 mL intramuscular syringe (Invega Trinza) albuterol sulfate 90 mcg/actuation 2 puff inhalation Q6H PRN 04/17/23 Unknown History aerosol inhaler shortness of breath or wheezing bisacodyl 5 mg tablet,delayed 5 mg PO DAILY PRN constipation 04/17/23 Unknown History release (Dulcolax (bisacodyl)) dicyclomine 10 mg capsule 10 mg PO TID 04/17/23 Unknown History docusate sodium 100 mg capsule 100 mg PO DAILY 04/17/23 Unknown History (Colace) lidocaine 5 % topical patch 1 patch transdermal DAILY 04/17/23 Unknown History lithium carbonate 300 mg capsule 300 mg PO QHS 04/17/23 Unknown History sertraline 100 mg tablet 100 mg PO Q24H 04/17/23 Unknown History triamcinolone acetonide 0.1 % 1 applic topical BID PRN muscle 04/17/23 Unknown History topical ointment relaxer urea 40 % topical cream 1 applic topical DAILY 04/17/23 Unknown History Allergy/AdvReac Type Severity Reaction Status Date / Time bee venom protein (honey bee) Allergy Anaphylaxis Verified 12/15/23 16:13 carbamazepine (From Tegretol) Allergy Unknown Verified 12/15/23 16:13 divalproex sodium (From Allergy Other Verified 12/15/23 16:13 Depakote) methylphenidate (From Allergy Unknown Verified 12/15/23 16:13 Concerta) methylphenidate HCl (From Allergy Unknown Verified 12/15/23 16:13 Ritalin) phenobarbital Allergy Hives Verified 12/15/23 16:13 Family History Other Asthma Diabetes Hypertension Kidney disease Surgical History Hx of cholecystectomy Hx of tympanostomy tubes H/O hernia repair Social History household members: family housing: house Smoking Status: Never smoker alcohol intake: never ROS ROS ED Constitutional Constitutional ED: Denies chills or fever(s) Eyes Eyes: Denies change in vision or diplopia ENT ENT ED: Denies rhinorrhea or sore throat Cardiovascular Cardiovascular: Denies chest pain or palpitations Respiratory/Chest Respiratory/Chest: Denies cough or dyspnea Gastrointestinal Gastrointestinal: Denies abdominal pain, diarrhea, nausea or vomiting Genitourinary Genitourinary ED: Denies dysuria or hematuria Musculoskeletal Musculoskeletal: Denies back pain or neck pain Integumentary Denies abscess or rash Neurologic Neurologic: Denies headache(s), paresthesias or weakness Psychiatric Psychiatric: Reports as per HPI, auditory hallucinations, depression and suicidal thoughts; Denies homicidal ideation EXAM Physical Exam Const Vital Signs: 12/15/23 16:11 12/15/23 18:00 Temperature 98.7 F Temperature Source Oral Pulse Rate 86 78 Respiratory Rate 18 16 Blood Pressure 163/94 H 134/77 H Blood Pressure Mean 117 96 Pulse Ox 95 94 Oxygen Delivery Method Room Air Room Air (more content not included)... Normal [facility] Lithiumon 12-15-2023 LI 0.30 mmol/L Low 0.60-1.20 [facility] Comment on above: Performed By: #### L 100.0100, L501.9100, L505.5000, L500.2500, L501.9060 #### [facility] [address] [facility] [place], [place], [id number] Urine Drug Screen (VISTA)on 12-15-2023 AMPHETAMINES Negative Normal <1000 ng/mL [facility] Comment on above: Performed By: #### L 100.0100, L501.9100, L505.5000, L500.2500, L501.9060 #### [facility] [address] [place], [place], [id number] BARBITIURATES Negative Normal < 200 ng/mL [facility] Comment on above: Performed By: #### L 100.0100, L501.9100, L505.5000, L500.2500, L501.9060 #### [facility] [address] [place], [address] BENZODIAZIPINE Negative Normal < 200 ng/mL [facility] Comment on above: Performed By: #### L 100.0100, L501.9100, L505.5000, L500.2500, L501.9060 #### [facility] [address] [place], [place], [facility] COCAINE Negative Normal < 300 ng/mL [facility] Comment on above: Performed By: #### L 100.0100, L501.9100, L505.5000, L500.2500, L501.9060 #### [facility] [address] [place], [place], [facility] ECSTACY Negative Normal < 500 ng/mL [facility] Comment on above: Performed By: #### L 100.0100, L501.9100, L505.5000, L500.2500, L501.9060 #### [facility] [place], [place], [facility] METHADONE Negative Normal < 300 ng/mL [facility] Comment on above: Performed By: #### L 100.0100, L501.9100, L505.5000, L500.2500, L501.9060 #### [facility] [address] [place], [place], [facility] OPIATES Negative Normal < 300 ng/mL [facility] Comment on above: Performed By: #### L 100.0100, L501.9100, L505.5000, L500.2500, L501.9060 #### [facility] [address] [place], [place], [facility] PCP Negative Normal < 25 ng/mL [facility] Comment on above: Performed By: #### L 100.0100, L501.9100, L505.5000, L500.2500, L501.9060 #### [facility] [address] [place], [place], [address] THC Negative Normal < 50 ng/mL [facility] Comment on above: Performed By: #### L 100.0100, L501.9100, L505.5000, L500.2500, L501.9060 #### [facility] [address] [place], [place], [id number] VISTA UDS PH 6 Normal [facility] Comment on above: Performed By: #### L 100.0100, L501.9100, L505.5000, L500.2500, L501.9060 #### [facility] [address] [place], [place], [id number] CNPNon 12-05-2023 CNPN Telephone (FAMPWS) -------- LVEY TODD ([id number]) 1995 M Date Time Provider Department 12/05/23 ANGELINA CLAUDIOMARY During your visit today, we recorded the following information about you: Pam Gray MA 12/05/2023 2:06 PM Signed ----- Message from Angelina Claudio sent at 12/05/2023 1:48 PM EDT ----- Labs are ok. Very mild anemia but iron, B12, folate, and iron stores are normal. No diabetes. Pam Gray MA 12/05/2023 2:07 PM Signed Pt notified of results via eTukTuk. Pam Gray Ma Allergies As of Date: 12/05/2023 Noted Allergy Reaction CONCERTA (METHYLPHENIDATE ANALOGU*07/08/2014 1 - Mental Status Change Comments: hyper DEPAKOTE (DIVALPROEX) 07/08/2020 5 - Intolerance PHENOBARBITAL 01/08/2005 5 - Intolerance RITALIN (METHYLPHENIDATE HCL) 01/08/2005 5 - Intolerance Comments: hyper Date Reviewed: 12/02/2023 Reviewed by: Nimco Taylor LPN - Fully Assessed Prescriptions as of 12/05/2023 - dicyclomine (BENTYL) 10 mg capsule Take 1 capsule by mouth before meals and at bedtime. - albuterol HFA (PROAIR HFA) 90 mcg/actuation inhaler Inhale 2 Puffs as instructed every 6 hours as needed. - lactase (LACTAID) 3,000 unit tablet Take 1 tablet by mouth three times a day with meals. - lidocaine (LIDODERM) 5 % Apply 1 Patch as directed every 12 hours. Remove old patch prior to placing new patch. Location: left leg - diclofenac (VOLTAREN ARTHRITIS PAIN) 1 % topical gel Apply 2 g to affected area four times daily. - omeprazole (PRILOSEC) 40 mg capsule Take 1 capsule by mouth once daily. - Cholecalciferol, Vitamin D3, 50 mcg (2,000 unit) cap Take 1 capsule by mouth once daily. - benztropine (COGENTIN) 0.5 mg tablet Take 1 tablet by mouth two times a day. - hydrOXYzine pamoate (VISTARIL) 25 mg capsule Take 1 capsule by mouth three times a day as needed. - lithium carbonate (ESKALITH) 300 mg capsule Take 2 capsules by mouth two times a day. - paliperidone palm, 3 month, (INVEGA TRINZA) 819 mg/2.63 mL syrg To be given at office - lamoTRIgine (LAMICTAL) 200 mg tablet Take 1 tablet by mouth two times a day. - risperiDONE (RISPERDAL) 0.5 mg tablet Take 3 tablets by mouth two times a day. - triamcinolone acetonide (KENALOG) 0.1 % ointment Apply to affected area two times a day. - budesonide (PULMICORT FLEXHALER) 90 mcg/actuation aepb Inhale 2 Puffs as instructed two times a day. - urea (CARMOL) 40 % Apply to affected area once daily. - fluticasone (FLONASE) 50 mcg/actuation nasal spray Use 2 Sprays in each nostril once daily. Rinse mouth after use. - sertraline (ZOLOFT) 100 mg tablet Take 100 mg by mouth once daily. - ondansetron orally disintegrating (ZOFRAN ODT) 4 mg disintegrating tablet Take 1 tablet by mouth every 8 hours as needed for Nausea/Vomiting. 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] PMH - PAST MEDICAL HISTORY OF Convulsions in [P90] 10/02/2015 Attention deficit hyperactivity disorder (ADHD)* Ingrowing nail [L60.0] 01/08/2005 10/02/2015 Pain in limb [M79.609] 01/08/2005 10/02/2015 Onychia and paronychia of toe [L03.039] 04/15/2005 10/02/2015 Exostosis of unspecified site [M89.8X9] 05/31/2005 10/02/2015 Abnormality of gait [R26.9] 06/22/2005 10/02/2015 Abdominal pain, epigastric [R10.13] 10/13/2006 10/02/2015 Abdominal pain, generalized [R10.84] 10/13/2006 10/02/2015 Epilepsy (HCC) [G40.909] 04/09/2015 10/02/2015 Psychogenic nonepileptic seizure [F44.5] 10/02/2015 Asperger's syndrome [F84.5] 10/02/2015 Morbid obesity (HCC) [E66.01] 01/30/2016 GERD (gastroesophageal reflux disease) [K21.9] 01/30/2016 Mild intermittent asthma without complication [*01/30/2016 Neck pain [M54.2] 07/26/2018 Contusion of right knee [S80.01XA] 07/26/2018 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 Schizoaffective disorder, bipolar type (HCC) [F*03/14/2023 Obesity, Class III, BMI >= 40 [E66.01] 03/14/2023 Encounter Status:Closed by PAM GRAY on 12/05/23 Normal [facility] Basic metabolic 2000 panelon 12-02-2023 Anion gap [Moles/Vol] 12 mmol/L Normal 8-15 [facility] Comment on above: Order Comment: Speci men Type: BLOOD SPECIMEN Ordering Facility: [facility] Address: [address] [place] [address] Performed By: #### 5 5454-3 #### [facility] CLIA [id number] [address] [place] [address] [place] Calcium [Mass/Vol] 9.4 mg/dL Normal 8.5-10.2 [facility] Comment on above: Order Comment: Speci men Type: BLOOD SPECIMEN Ordering Facility: [facility] Address: [address] [place] [address] Performed By: #### 5 5454-3 #### [facility] CLIA [id number] [address] [place] [address] [place] Chloride [Moles/Vol] 106 mmol/L Normal 98-107 [facility] Comment on above: Order Comment: Speci men Type: BLOOD SPECIMEN Ordering Facility: [facility] Address: [address] [place] [address] Performed By: #### 5 5454-3 #### [facility] CLIA [id number] [address] [place] [address] [place] CO2 [Moles/Vol] 22 mmol/L Normal 22-30 [facility] Comment on above: Order Comment: Speci men Type: BLOOD SPECIMEN Ordering Facility: [facility] Address: [address] [place] [address] Performed By: #### 5 5454-3 #### [facility] CLIA [id number] [address] [place] [address] [place] Creatinine [Mass/Vol] 0.69 mg/dL Low 0.73-1.22 [facility] Comment on above: Order Comment: Speci men Type: BLOOD SPECIMEN Ordering Facility: [facility] Address: [address] [place] [address] Performed By: #### 5 5454-3 #### [facility] CLIA [id number] [address] [place] [address] [place] Creatinine and Glomerular filtration rate.predicted panel (S/P/Bld) 128 mL/min/1.73m??? Normal >=60 [facility] Comment on above: Order Comment: Michaela adams Type: BLOOD SPECIMEN Ordering Facility: [facility] Address: [address] [place] [address] Result Comment: Daniela mated Glomerular Filtration Rate (eGFR) is calculated using the 2020 CKD-EPI creatinine equation. This equation utilizes serum creatinine, sex, and age as parameters. The creatinine assay has traceable calibration to isotope dilution-mass spectrometry. Refer to KDIGO guidelines for clinical interpretation. In patients with unstable renal function, e.g. those with acute kidney injury, the eGFR may not accurately reflect actual GFR. Performed By: #### 5 5454-3 #### [facility] CLIA [id number] [address] [place] [address] [place] Glucose [Mass/Vol] 75 mg/dL Normal 74-99 [facility] Comment on above: Order Comment: Michaela adams Type: BLOOD SPECIMEN Ordering Facility: [facility] Address: [address] [place] [address] Result Comment: The [place] [employer] (ADA) provides guidance for cutoff values for fasting glucose and random glucose. The ADA defines fasting as no caloric intake for at least 8 hours. Fasting plasma glucose results between 100 to 125 mg/dL indicate increased risk for diabetes (prediabetes). Fasting plasma glucose results greater than or equal to 126 mg/dL meet the criteria for diagnosis of diabetes. In the absence of unequivocal hyperglycemia, results should be confirmed by repeat testing. In a patient with classic symptoms of hyperglycemia or hyperglycemic crisis, random plasma glucose results greater than or equal to 200 mg/dL meet the criteria for diagnosis of diabetes. Reference: Standards of Medical Care in Diabetes 2016, [place] [employer]. Diabetes Care. 2016.39(Suppl 1). Performed By: #### 5 5454-3 #### [facility] CLIA [id number] [address] [place] [address] [place] Potassium [Moles/Vol] 4.1 mmol/L Normal 3.7-5.1 [facility] Comment on above: Order Comment: Speci men Type: BLOOD SPECIMEN Ordering Facility: [facility] Address: [address] [place] [address] Performed By: #### 5 5454-3 #### [facility] CLIA [id number] [address] [place] [address] [place] Sodium [Moles/Vol] 140 mmol/L Normal 136-144 [facility] Comment on above: Order Comment: Speci men Type: BLOOD SPECIMEN Ordering Facility: [facility] Address: [address] [place] [address] Performed By: #### 5 5454-3 #### [facility] CLIA [id number] [address] [place] [address] [place] Urea nitrogen [Mass/Vol] 8 mg/dL Low 9-24 [facility] Comment on above: Order Comment: Speci men Type: BLOOD SPECIMEN Ordering Facility: [facility] Address: [address] [place] [address] Performed By: #### 5 5454-3 #### [facility] CLIA [id number] [address] [place] [address] [place] CBC W Auto Differential pane l (Bld)on 12-02-2023 Basophils (Bld) [#/Vol] 10*3/uL Normal <0.11 [facility] Comment on above: Order Comment: Speci men Type: BLOOD SPECIMEN Ordering Facility: [facility] Address: [address] [place] [address] Performed By: #### 5 5454-3 #### [facility] CLIA [id number] [address] [place] [address] [place] Basophils/100 WBC (Bld) 0.2 % Normal [facility] Comment on above: Order Comment: Speci men Type: BLOOD SPECIMEN Ordering Facility: [facility] Address: [address] [place] [address] Performed By: #### 5 5454-3 #### [facility] CLIA [id number] [address] [place] [address] [place] Differential cell count method Nom (Bld) Auto Normal [facility] Comment on above: Order Comment: Speci men Type: BLOOD SPECIMEN Ordering Facility: [facility] Address: [address] [place] [address] Performed By: #### 5 5454-3 #### [facility] CLIA [id number] [address] [place] [address] [place] Eosinophils (Bld) [#/Vol] 10*3/uL Normal <0.46 [facility] Comment on above: Order Comment: Speci men Type: BLOOD SPECIMEN Ordering Facility: [facility] Address: [address] [place] [address] Performed By: #### 5 5454-3 #### [facility] CLIA [id number] [address] [place] [address] [place] Eosinophils/100 WBC (Bld) 0.0 % Normal [facility] Comment on above: Order Comment: Speci men Type: BLOOD SPECIMEN Ordering Facility: [facility] Address: [address] [place] [address] Performed By: #### 5 5454-3 #### [facility] CLIA [id number] [address] [place] [address] [place] Erythrocyte distribution width (RBC) [Ratio] 13.9 % Normal 11.5-15.0 [facility] Comment on above: Order Comment: Speci men Type: BLOOD SPECIMEN Ordering Facility: [facility] Address: [address] [place] [address] Performed By: #### 5 5454-3 #### [facility] CLIA [id number] [address] [place] [address] [place] Hematocrit (Bld) [Volume fraction] 39.8 % Normal 39.0-51.0 [facility] Comment on above: Order Comment: Speci men Type: BLOOD SPECIMEN Ordering Facility: [facility] Address: [address] [place] [address] Performed By: #### 5 5454-3 #### [facility] CLIA [id number] [address] [place] [address] [place] Hemoglobin (Bld) [Mass/Vol] 12.5 g/dL Low 13.0-17.0 [facility] Comment on above: Order Comment: Speci men Type: BLOOD SPECIMEN Ordering Facility: [facility] Address: [address] [place] [address] Performed By: #### 5 5454-3 #### [facility] CLIA [id number] [address] [place] [address] [place] Immature granulocytes (Bld) [#/Vol] 10*3/uL Normal <0.10 [facility] Comment on above: Order Comment: Speci men Type: BLOOD SPECIMEN Ordering Facility: [facility] Address: [address] [place] [address] Performed By: #### 5 5454-3 #### [facility] CLIA [id number] [address] [place] [address] [place] Immature granulocytes/100 WBC (Bld) 0.3 % Normal [facility] Comment on above: Order Comment: Speci men Type: BLOOD SPECIMEN Ordering Facility: [facility] Address: [address] [place] [address] Performed By: #### 5 5454-3 #### [facility] CLIA [id number] [address] [place] [address] [place] Lymphocytes (Bld) [#/Vol] 2.07 10*3/uL Normal 1.00-4.00 [facility] Comment on above: Order Comment: Speci men Type: BLOOD SPECIMEN Ordering Facility: [facility] Address: [address] [place] [address] Performed By: #### 5 5454-3 #### [facility] CLIA [id number] [address] [place] [address] [place] Lymphocytes/100 WBC (Bld) 34.5 % Normal [facility] Comment on above: Order Comment: Speci men Type: BLOOD SPECIMEN Ordering Facility: [facility] Address: [address] [place] [address] Performed By: #### 5 5454-3 #### [facility] CLIA [id number] [address] [place] [address] [place] MCH (RBC) [Entitic mass] 25.4 pg Low 26.0-34.0 [facility] Comment on above: Order Comment: Speci men Type: BLOOD SPECIMEN Ordering Facility: [facility] Address: [address] [place] [address] Performed By: #### 5 5454-3 #### [facility] CLIA [id number] [address] [place] [address] [place] MCHC (RBC) [Mass/Vol] 31.4 g/dL Normal 30.5-36.0 [facility] Comment on above: Order Comment: Speci men Type: BLOOD SPECIMEN Ordering Facility: [facility] Address: [address] [place] [address] Performed By: #### 5 5454-3 #### [facility] CLIA [id number] [address] [place] [address] [place] MCV (RBC) [Entitic vol] 80.7 fL Normal 80.0-100.0 [facility] Comment on above: Order Comment: Speci men Type: BLOOD SPECIMEN Ordering Facility: [facility] Address: [address] [place] [address] Performed By: #### 5 5454-3 #### [facility] CLIA [id number] [address] [place] [address] [place] Monocytes (Bld) [#/Vol] 0.56 10*3/uL Normal <0.87 [facility] Comment on above: Order Comment: Speci men Type: BLOOD SPECIMEN Ordering Facility: [facility] Address: [address] [place] [address] Performed By: #### 5 5454-3 #### [facility] CLIA [id number] [address] [place] [address] [place] Monocytes/100 WBC (Bld) 9.3 % Normal [facility] Comment on above: Order Comment: Speci men Type: BLOOD SPECIMEN Ordering Facility: [facility] Address: [address] [place] [address] Performed By: #### 5 5454-3 #### [facility] CLIA [id number] [address] [place] [address] [place] Neutrophils (Bld) [#/Vol] 3.34 10*3/uL Normal 1.45-7.50 [facility] Comment on above: Order Comment: Speci men Type: BLOOD SPECIMEN Ordering Facility: [facility] Address: [address] [place] [address] Performed By: #### 5 5454-3 #### [facility] CLIA [id number] [address] [place] [address] [place] Neutrophils/100 WBC (Bld) 55.7 % Normal [facility] Comment on above: Order Comment: Speci men Type: BLOOD SPECIMEN Ordering Facility: [facility] Address: [address] [place] [address] Performed By: #### 5 5454-3 #### [facility] CLIA [id number] [address] [place] [address] [place] Nucleated RBC (Bld) [#/Vol] 10*3/uL Normal <0.01 [facility] Comment on above: Order Comment: Speci men Type: BLOOD SPECIMEN Ordering Facility: [facility] Address: [address] [place] [address] Performed By: #### 5 5454-3 #### [facility] CLIA [id number] [address] [place] [address] [place] Nucleated RBC/100 WBC (Bld) [Ratio] 0.0 /100 WBC Normal [facility] Comment on above: Order Comment: Speci men Type: BLOOD SPECIMEN Ordering Facility: [facility] Address: [address] [place] [address] Performed By: #### 5 5454-3 #### [facility] CLIA [id number] [address] [place] [address] [place] Platelet mean volume (Bld) [Entitic vol] 9.2 fL Normal 9.0-12.7 [facility] Comment on above: Order Comment: Speci men Type: BLOOD SPECIMEN Ordering Facility: [facility] Address: [address] [place] [address] Performed By: #### 5 5454-3 #### [facility] CLIA [id number] [address] [place] [address] [place] Platelets (Bld) [#/Vol] 310 10*3/uL Normal 150-400 [facility] Comment on above: Order Comment: Speci men Type: BLOOD SPECIMEN Ordering Facility: [facility] Address: [address] [place] [address] Performed By: #### 5 5454-3 #### [facility] CLIA [id number] [address] [place] [address] [place] RBC (Bld) [#/Vol] 4.93 10*6/uL Normal 4.20-6.00 [facility] Comment on above: Order Comment: Speci men Type: BLOOD SPECIMEN Ordering Facility: [facility] Address: [address] [place] [address] Performed By: #### 5 5454-3 #### [facility] CLIA [id number] [address] [place] [address] [place] WBC (Bld) [#/Vol] 6.00 10*3/uL Normal 3.70-11.00 [facility] Comment on above: Order Comment: Speci men Type: BLOOD SPECIMEN [facility] [facility] Address: [address] [place], [place] [id number] Performed By: #### 5 5454-3 #### [facility] CLIA [id number] [address] [place], [place] [id number] [place] CNOVon 12-02-2023 CNOV Office Visit (FAMPWS ) -------- LEVY TODD ([id number]) 1995 M Date Time Provider Department 12/02/23 10:40 AM TURNER BUNDY FAMWS During your visit today, we recorded the following information about you: Pulse Blood pressure Weight 80/minute 122/72 146.5 kg Turner Bundy MD 12/02/2023 11:44 AM Signed Patient presents with: ER F/U HPI: Patient presents today for office visit for followup. HOSPITAL/ER FOLLOW UP: Reason for visit: palpitations Which facility: [facility] Date of visit: 11/27/23 Diagnosis: palpitations Testing done: EKG, chest xr, CBC, BMP, troponin, TSH Treatment given: duoneb and ASA at ER Current symptoms: no more episodes since there Mom reports that she wonders if was from all the excitement. He was pretty stressed Patient reports had oxygen on in ER. No cough or chest pain. Hb was slightly low. Potassium was slightly low and sugar was up. He is now in a long-term. Has some bruising on his chest wall. Ws moving boxes. MEDICATIONS: Current Outpatient Medications Medication Sig dicyclomine (BENTYL) 10 mg capsule Take 1 capsule by mouth before meals and at bedtime. albuterol HFA (PROAIR HFA) 90 mcg/actuation inhaler Inhale 2 Puffs as instructed every 6 hours as needed. lactase (LACTAID) 3,000 unit tablet Take 1 tablet by mouth three times a day with meals. lidocaine (LIDODERM) 5 % Apply 1 Patch as directed every 12 hours. Remove old patch prior to placing new patch. Location: left leg diclofenac (VOLTAREN ARTHRITIS PAIN) 1 % topical gel Apply 2 g to affected area four times daily. omeprazole (PRILOSEC) 40 mg capsule Take 1 capsule by mouth once daily. Cholecalciferol, Vitamin D3, 50 mcg (2,000 unit) cap Take 1 capsule by mouth once daily. benztropine (COGENTIN) 0.5 mg tablet Take 1 tablet by mouth two times a day. hydrOXYzine pamoate (VISTARIL) 25 mg capsule Take 1 capsule by mouth three times a day as needed. lithium carbonate (ESKALITH) 300 mg capsule Take 2 capsules by mouth two times a day. paliperidone palm, 3 month, (INVEGA TRINZA) 819 mg/2.63 mL syrg To be given at office lamoTRIgine (LAMICTAL) 200 mg tablet Take 1 tablet by mouth two times a day. risperiDONE (RISPERDAL) 0.5 mg tablet Take 3 tablets by mouth two times a day. triamcinolone acetonide (KENALOG) 0.1 % ointment Apply to affected area two times a day. budesonide (PULMICORT FLEXHALER) 90 mcg/actuation aepb Inhale 2 Puffs as instructed two times a day. urea (CARMOL) 40 % Apply to affected area once daily. fluticasone (FLONASE) 50 mcg/actuation nasal spray Use 2 Sprays in each nostril once daily. Rinse mouth after use. sertraline (ZOLOFT) 100 mg tablet Take 100 mg by mouth once daily. ondansetron orally disintegrating (ZOFRAN ODT) 4 mg disintegrating tablet Take 1 tablet by mouth every 8 hours as needed for Nausea/Vomiting. No current facility-administered medications for this visit. ALLERGIES: ALLERGIES Allergen Reactions Concerta [Methylphe* Mental Status Change hyper Depakote [Divalproe* Intolerance Phenobarbital Intolerance Ritalin [...] delivered emergency because cord wrapped around his neck. born 8 lbs. went home with mom. [...] Never Smokeless tobacco: Never Vaping Use Vaping status: Never Used (more content not included)... Normal [facility] Ferrit[facility] [Mass/Vol] 77.4 ng/mL Normal 30.3-565.7 [facility] Comment on above: Order Comment: Speci men Type: BLOOD SPECIMEN Ordering Facility: [facility] Address: [address] [place] [address] Performed By: #### 5 5454-3 #### [facility] CLIA [id number] [address] [place] [address] [place] [address] [place] Folate SerPl-mCncon 12-02-19 Folate [Mass/Vol] 8.1 ng/mL Normal >4.7 [facility] Comment on above: Order Comment: Michaela adams Type: BLOOD SPECIMEN Ordering Facility: [facility] Address: [address] [place] [address] Performed By: #### 5 5454-3 #### [facility] CLIA [id number] [address] [place] [address] OF [place] HbA1c (Bld)on 12-02-2023 Average glucose Estimated from glycated hemoglobin (Bld) [Mass/Vol] 114 mg/dL Normal [facility] Comment on above: Order Comment: Michaela adams Type: BLOOD SPECIMEN Ordering Facility: [facility] Address: [address] [place] [address] Result Comment: eAG: (Estimated average glucose) is a calculated value from HgbA1c and is education courses sales representative of the average blood glucose level in the last 2-3 month period. Performed By: #### 5 5454-3 #### [facility] CLIA [id number] [address] [place] [address] STATES [place] [facility] HbA1c (Bld) [Mass fraction] 5.6 % Normal 4.3-5.6 [facility] Comment on above: Order Comment: Michaela adams Type: BLOOD SPECIMEN Ordering Facility: [facility] Address: [address] [place] [address] Result Comment: Amer ican Diabetes Association guidelines indicate that patients with HgbA1c in the range 5.7-6.4% are at increased risk for development of diabetes, and intervention by lifestyle modification may be beneficial. HgbA1c greater or equal to 6.5% is considered diagnostic of diabetes. Performed By: #### 5 5454-3 #### [facility] CLIA [id number] [address] [place] [address] [place] Iron and Iron binding capaci ty panelon 12-02-2023 Iron [Mass/Vol] 44 ug/dL Normal 41-186 [facility] Comment on above: Order Comment: Michaela adams Type: BLOOD SPECIMEN Ordering Facility: [facility] Address: [address] [place] [address] Performed By: #### 5 5454-3 #### [facility] CLIA [id number] [address] [place] [address] [place] Iron binding capacity [Mass/Vol] 380 ug/dL Normal 232-386 [facility] Comment on above: Order Comment: Speci men Type: BLOOD SPECIMEN Ordering Facility: [facility] Address: [address] [place] [address] Performed By: #### 5 5454-3 #### [facility] CLIA [id number] [address] [place] [address] [place] Iron/TIBC [Molar ratio] 11.6 % Low 15.0-57.0 [facility] Comment on above: Order Comment: Speci men Type: BLOOD SPECIMEN Ordering Facility: [facility] Address: [address] [place] [address] Performed By: #### 5 5454-3 #### [facility] CLIA [id number] [address] [place] [address] [place] Vit B12 [facility] 10-04-2 024 Cobalamin (Vitamin B12) [Mass/Vol] 629 pg/mL Normal 232-1245 [facility] Comment on above: Order Comment: Speci men Type: BLOOD SPECIMEN Ordering Facility: [facility] Address: [address] [place] [address] Performed By: #### 5 5454-3 #### [facility] [place] [id number] [address] [place] [address] [place] CNPAna 11-28-2023 CNPN Telephone (FAMPWS) -------- LEVY TODD ([id number]) 1995 M Date Time Provider Department 11/28/23 TURNER BUNDY During your visit today, we recorded the following information about you: Enriqueta Davila RN 11/28/2023 11:38 AM Signed Mother reports patient has been sleeping a lot for the past 3 mths. Sleeps after day program from 2:30-4:30, then again from 8 p - 7:30 am. Reports yesterday patient was having right chest pain, felt like someone was tapping his chest hard. Went to [facility] ER. CXR, EKG, and labs showed nothing. Advised to f/u with pcp. Reports patient is moving to a Nursing Home tomorrow, and maybe that has something to do with it. Reports she will keep guardianship. Scheduled f/u appt with pcp. Allergies As of Date: 11/28/2023 Noted Allergy Reaction CONCERTA (METHYLPHENIDATE ANALOGU*07/08/2014 1 - Mental Status Change Comments: hyper DEPAKOTE (DIVALPROEX) 07/08/2020 5 - Intolerance PHENOBARBITAL 01/08/2005 5 - Intolerance RITALIN (METHYLPHENIDATE HCL) 01/08/2005 5 - Intolerance Comments: hyper Date Reviewed: 11/14/2023 Reviewed by: Ximena Moscoso RPFT - Fully Assessed Reason for Visit: [facility] ER f/u 11-27-23 [Other] Prescriptions as of 11/28/2023 - dicyclomine (BENTYL) 10 mg capsule Take 1 capsule by mouth before meals and at bedtime. - albuterol HFA (PROAIR HFA) 90 mcg/actuation inhaler Inhale 2 Puffs as instructed every 6 hours as needed. - lactase (LACTAID) 3,000 unit tablet Take 1 tablet by mouth three times a day with meals. - lidocaine (LIDODERM) 5 % Apply 1 Patch as directed every 12 hours. Remove old patch prior to placing new patch. Location: left leg - diclofenac (VOLTAREN ARTHRITIS PAIN) 1 % topical gel Apply 2 g to affected area four times daily. - omeprazole (PRILOSEC) 40 mg capsule Take 1 capsule by mouth once daily. - Cholecalciferol, Vitamin D3, 50 mcg (2,000 unit) cap Take 1 capsule by mouth once daily. - benztropine (COGENTIN) 0.5 mg tablet Take 1 tablet by mouth two times a day. - hydrOXYzine pamoate (VISTARIL) 25 mg capsule Take 1 capsule by mouth three times a day as needed. - lithium carbonate (ESKALITH) 300 mg capsule Take 2 capsules by mouth two times a day. - paliperidone palm, 3 month, (INVEGA TRINZA) 819 mg/2.63 mL syrg To be given at office - lamoTRIgine (LAMICTAL) 200 mg tablet Take 1 tablet by mouth two times a day. - risperiDONE (RISPERDAL) 0.5 mg tablet Take 3 tablets by mouth two times a day. - triamcinolone acetonide (KENALOG) 0.1 % ointment Apply to affected area two times a day. - budesonide (PULMICORT FLEXHALER) 90 mcg/actuation aepb Inhale 2 Puffs as instructed two times a day. - urea (CARMOL) 40 % Apply to affected area once daily. - fluticasone (FLONASE) 50 mcg/actuation nasal spray Use 2 Sprays in each nostril once daily. Rinse mouth after use. - sertraline (ZOLOFT) 100 mg tablet Take 100 mg by mouth once daily. - ondansetron orally disintegrating (ZOFRAN ODT) 4 mg disintegrating tablet Take 1 tablet by mouth every 8 hours as needed for Nausea/Vomiting. Problem List As Of Date 11/28/2023 Noted Resolved SELECTIVE IG DEFIC NEC [D80.9] PMH - PAST MEDICAL HISTORY OF Convulsions in [P90] 10/02/2015 Attention deficit hyperactivity disorder (ADHD)* Ingrowing nail [L60.0] 01/08/2005 10/02/2015 Pain in limb [M79.609] 01/08/2005 10/02/2015 Onychia and paronychia of toe [L03.039] 04/15/2005 10/02/2015 Exostosis of unspecified site [M89.8X9] 05/31/2005 10/02/2015 Abnormality of gait [R26.9] 06/22/2005 10/02/2015 Abdominal pain, epigastric [R10.13] 10/13/2006 10/02/2015 Abdominal pain, generalized [R10.84] 10/13/2006 10/02/2015 Epilepsy (HCC) [G40.909] 04/09/2015 10/02/2015 Psychogenic nonepileptic seizure [F44.5] 10/02/2015 Asperger's syndrome [F84.5] 10/02/2015 Morbid obesity (HCC) [E66.01] 01/30/2016 GERD (gastroesophageal reflux disease) [K21.9] 01/30/2016 Mild intermittent asthma without complication [*01/30/2016 Neck pain [M54.2] 07/26/2018 Contusion of right knee [S80.01XA] 07/26/2018 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 Rate : 092 BPM Atrial Rate : 092 BPM P-R Int : 152 ms QRS Dur : 096 ms QT Int : 348 ms P-R-T Axes : 025 022 035 degrees QTc Int : 430 ms Normal sinus rhythm Normal ECG Confirmed by LELAND BUTLER MD ([id number]), tape editor PREET LEON ([id number]) on 11/29/2023 6:31:04 AM Referred By: Confirmed By:LELAND BUTLER MD 11/29/23 0631 Date Leland Butler MD CC: Dr. Alex Membreno DO; Dr. Turner Bundy MD Signed Normal [facility] Basic Metabolic Profile (BMP )on 11-27-2023 BUN/CRE 18.3 RATIO Normal 10-20 [facility] Comment on above: Order Comment: 1Y Performed By: #### L 501.5200, L501.9520, L501.5425, L500.2500, L100.0100 ####[facility] [address] [place], [address] CA,Total 9.4 mg/dL Normal 8.5-10.1 [facility] Comment on above: Order Comment: 1Y Performed By: #### L 501.5200, L501.9520, L501.5425, L500.2500, L100.0100 ####[facility] [address] [place], [address] Chloride [Moles/Vol] 109 mmol/L High 98-107 [facility] Comment on above: Order Comment: 1Y Performed By: #### L 501.5200, L501.9520, L501.5425, L500.2500, L100.0100 ####[facility] [address] [place], [address] CO2 [Moles/Vol] 26.0 mmol/L Normal 21.0-32.0 [facility] Comment on above: Order Comment: 1Y Performed By: #### L 501.5200, L501.9520, L501.5425, L500.2500, L100.0100 ####[facility] [address] [place], [address] Creatinine [Mass/Vol] 0.77 mg/dL Normal 0.70-1.30 [facility] Comment on above: Order Comment: 1Y Result Comment: The validity of the calculated GFR GFRAA in patients over 70 years has not been determined. Clinical correlation is essential. Performed By: #### L 501.5200, L501.9520, L501.5425, L500.2500, L100.0100 ####[facility] [address] [place], [address] ECRCL 199.25 ml/min Normal [facility] Comment on above: Order Comment: 1Y Performed By: #### L 501.5200, L501.9520, L501.5425, L500.2500, L100.0100 ####[facility] [address] [place], [address] EST GFR - AA 153 mL/min Normal >60 [facility] Comment on above: Order Comment: 1Y Result Comment: Afri can Montserratian GFR Calc Performed By: #### L 501.5200, L501.9520, L501.5425, L500.2500, L100.0100 ####[facility] [address] [place], [address] GAP 6 Normal 5-15 [facility] Comment on above: Order Comment: 1Y Performed By: #### L 501.5200, L501.9520, L501.5425, L500.2500, L100.0100 ####[facility] [address] [place], [address] GFR/1.73 sq M.predicted among non-blacks MDRD (S/P/Bld) [Vol rate/Area] 127 mL/min/{1.73_m2} Normal >60 [facility] Comment on above: Order Comment: 1Y Result Comment: Non- GFR Calc Performed By: #### L 501.5200, L501.9520, L501.5425, L500.2500, L100.0100 ####[facility] [address] [place], [address] Glucose [Mass/Vol] 133 mg/dL High 74-106 [facility] Comment on above: Order Comment: 1Y Result Comment: Fast ing Glucose result greater than or equal to 126 mg/dL suggests DIABETES MELLITUS per A.D.A. criteria. Performed By: #### L 501.5200, L501.9520, L501.5425, L500.2500, L100.0100 ####[facility] [address] [place], [address] Potassium [Moles/Vol] 3.4 mmol/L Low 3.5-5.1 [facility] Comment on above: Order Comment: 1Y Performed By: #### L 501.5200, L501.9520, L501.5425, L500.2500, L100.0100 ####[facility] [address] [place], [address] Sodium [Moles/Vol] 141 mmol/L Normal 136-145 [facility] Comment on above: Order Comment: 1Y Performed By: #### L 501.5200, L501.9520, L501.5425, L500.2500, L100.0100 ####[facility] [address] [place], [address] Urea nitrogen [Mass/Vol] 14 mg/dL Normal 7-18 [facility] Comment on above: Order Comment: 1Y Performed By: #### L 501.5200, L501.9520, L501.5425, L500.2500, L100.0100 ####[facility] [address] [place], [address] CBC W/Diff, Automatedon 09-2 Absolute Lymph 1.40 X10 3/uL Normal 0.83-4.51 [facility] Comment on above: Performed By: #### L 501.5200, L501.9520, L501.5425, L500.2500, L100.0100 ####[facility] [address] [place], [address] Absolute Neut 4.3 X10 3/uL Normal 2.0-7.7 [facility] Comment on above: Performed By: #### L 501.5200, L501.9520, L501.5425, L500.2500, L100.0100 ####[facility] [address] [place], [address] Basophils/100 WBC (Bld) 0.0 % Normal 0-1 [facility] Comment on above: Performed By: #### L 501.5200, L501.9520, L501.5425, L500.2500, L100.0100 ####[facility] [address] [place], [address] Eosinophils/100 WBC (Bld) 0.0 % Normal 0-5 [facility] Comment on above: Performed By: #### L 501.5200, L501.9520, L501.5425, L500.2500, L100.0100 ####[facility] [address] [place], [address] Erythrocyte distribution width (RBC) [Ratio] 13.3 % Normal 11.6-14.6 [facility] Comment on above: Performed By: #### L 501.5200, L501.9520, L501.5425, L500.2500, L100.0100 ####[facility] [address] [place], [address] Hematocrit (Bld) [Volume fraction] 40.1 % Normal 40-54 [facility] Comment on above: Performed By: #### L 501.5200, L501.9520, L501.5425, L500.2500, L100.0100 ####[facility] [address] [place], [address] Hemoglobin (Bld) [Mass/Vol] 12.9 g/dL Low 13.0-16.5 [facility] Comment on above: Performed By: #### L 501.5200, L501.9520, L501.5425, L500.2500, L100.0100 ####[facility] [address] [place], [address] IG% 0.500 Normal 0.0-0.9 [facility] Comment on above: Result Comment: IG% - Immature Granulocytes (promyelocytes, myelocytes and metamyelocytes) > 1% indicates that a LEFT SHIFT is Present. Performed By: #### L 501.5200, L501.9520, L501.5425, L500.2500, L100.0100 ####[facility] [address] [place], [address] Lymphocytes/100 WBC (Bld) 22.9 % Normal 19-41 [facility] Comment on above: Performed By: #### L 501.5200, L501.9520, L501.5425, L500.2500, L100.0100 ####[facility] [address] [place], [address] MCH (RBC) [Entitic mass] 25.4 pg Low 27.0-32.0 [facility] Comment on above: Performed By: #### L 501.5200, L501.9520, L501.5425, L500.2500, L100.0100 ####[facility] [address] [place], [address] MCHC (RBC) [Mass/Vol] 32.2 g/dL Normal 32-36 [facility] Comment on above: Performed By: #### L 501.5200, L501.9520, L501.5425, L500.2500, L100.0100 ####[facility] [address] [place], [address] MCV (RBC) [Entitic vol] 78.9 fL Low 80-94 [facility] Comment on above: Performed By: #### L 501.5200, L501.9520, L501.5425, L500.2500, L100.0100 ####[facility] [address] [place], [address] Monocytes/100 WBC (Bld) 6.2 % Normal 0-10 [facility] Comment on above: Performed By: #### L 501.5200, L501.9520, L501.5425, L500.2500, L100.0100 ####[facility] [address] [place], [address] Neutrophils/100 WBC (Bld) 70.4 % High 47-70 [facility] Comment on above: Performed By: #### L 501.5200, L501.9520, L501.5425, L500.2500, L100.0100 ####[facility] [address] [place], [address] Nucleated RBC (Bld) [#/Vol] 0 10*3/uL Normal 0-5 [facility] Comment on above: Performed By: #### L 501.5200, L501.9520, L501.5425, L500.2500, L100.0100 ####[facility] [address] [place], [address] Platelet mean volume (Bld) [Entitic vol] 8.7 fL Normal 6.2-12.0 [facility] Comment on above: Performed By: #### L 501.5200, L501.9520, L501.5425, L500.2500, L100.0100 ####[facility] [address] [place], [address] Platelets (Bld) [#/Vol] 298 10*3/uL Normal 150-450 [facility] Comment on above: Performed By: #### L 501.5200, L501.9520, L501.5425, L500.2500, L100.0100 ####[facility] [address] [place], [address] RBC (Bld) [#/Vol] 5.08 10*6/uL Normal 4.6-6.2 [facility] Comment on above: Performed By: #### L 501.5200, L501.9520, L501.5425, L500.2500, L100.0100 ####[facility] [address] [place], [address] RDW SD 37.8 fl Normal 35.1-43.9 [facility] Comment on above: Performed By: #### L 501.5200, L501.9520, L501.5425, L500.2500, L100.0100 ####[facility] [address] [place], [address] WBC (Bld) [#/Vol] 6.1 10*3/uL Normal 4.4-11.0 [facility] Comment on above: Performed By: #### L 501.5200, L501.9520, L501.5425, L500.2500, L100.0100 ####[facility] [address] [place], [address] Chest 1 View (Portable)on Chest 1 View (Portable) [facility] Imaging Services [address] [place] [address] Chest 1 View (Portable) MR#: [id number] Acct: [id number] Name: LEVY TODD Rep #: [id number] : 1995 M 28 From: Colt Rudd PCP: Dr. Turner Bundy MD Status: REG ER Study: Chest 1 View (Portable) Date of Exam: 11/27/23 Exam# [id number] Ordering Dr: Alex Membreno DO [id number] EXAM: XR CHEST, 1 VIEW CLINICAL INDICATION: chest pain TECHNIQUE: Frontal view of the chest. COMPARISON: 6.2.24 FINDINGS: LUNGS AND PLEURAL SPACES: Unremarkable. No consolidation or edema. No pneumothorax. No effusion. HEART: Unremarkable. Cardiac silhouette not enlarged. MEDIASTINUM: Central airways and mediastinal contour are unremarkable. BONES/JOINTS: Unremarkable. No acute fracture. SOFT TISSUES: Unremarkable. RAD/Chest 1 View (Portable) IMPRESSION: No radiographic evidence of acute cardiopulmonary disease. Electronically Signed: Colt Zambrano MD at 15:12 EDT , CC: Dr. Alex Membreno DO; Dr. Turner Bundy MD Box Estimator: Signed Normal [facility] Emergency Department Summary on 11-27-2023 Emergency Department Summary [facility] Medical Records Department [address] [place] [address] Emergency Department Summary 11/27/23 MR#: [id number] Acct: [id number] Name: LEVY TODD Rep #: [id number] : 1995 28 From: Alex Membreno DO PCP: Dr. Turner Bundy MD Status:DEP ER Location: ED HPI History of Present Illness Chief Complaint: Palpitations Informant: patient Onset/Context/Timing Onset: Today Context: Sudden Onset Timing: Continuous Quality: Skipping Location: Chest Worsened by: Nothing Relieved by: Nothing Narrative Narrative: Patient presents with palpitations that began today. Patient states that it began rather suddenly. Patient states he was not doing anything strenuous when they began. Patient states it feels like his heart is skipping. Patient states nothing makes it better and nothing makes it worse. Patient denies any chest pain. Patient admits to some shortness of breath. Patient also admits to some pain in his back. Patient denies any fevers or chills. Patient denies any diaphoresis. 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 Home Medications ???Medication ???Instructions ???Recorded ???Last Taken ???Type omeprazole 40 mg capsule,delayed 40 mg PO DAILY 12/24/15 Unknown History release lamotrigine 200 mg tablet 200 mg PO BID 11/19/20 Unknown History paliperidone 6 mg tablet,extended 3 mg PO QHS 06/02/22 Unknown History release 24 hr paliperidone palm (3 month) 819 819 mg IM Q3M 06/02/22 05/31/22 History mg/2.63 mL intramuscular syringe (Invega Trinza) albuterol sulfate 90 mcg/actuation 2 puff inhalation Q6H PRN 04/17/23 Unknown History aerosol inhaler shortness of breath or wheezing bisacodyl 5 mg tablet,delayed 5 mg PO DAILY PRN constipation 04/17/23 Unknown History release (Dulcolax (bisacodyl)) dicyclomine 10 mg capsule 10 mg PO TID 04/17/23 Unknown History docusate sodium 100 mg capsule 100 mg PO DAILY 04/17/23 Unknown History (Colace) lidocaine 5 % topical patch 1 patch transdermal DAILY 04/17/23 Unknown History lithium carbonate 300 mg capsule 300 mg PO QHS 04/17/23 Unknown History sertraline 100 mg tablet 100 mg PO Q24H 04/17/23 Unknown History triamcinolone acetonide 0.1 % 1 applic topical BID PRN muscle 04/17/23 Unknown History topical ointment relaxer urea 40 % topical cream 1 applic topical DAILY 04/17/23 Unknown History Allergy/AdvReac Type Severity Reaction Status Date / Time bee venom protein (honey bee) Allergy Anaphylaxis Verified 08/04/23 20:15 carbamazepine (From Tegretol) Allergy Unknown Verified 08/04/23 20:15 divalproex sodium (From Allergy Other Verified 08/04/23 20:15 Depakote) methylphenidate (From Allergy Unknown Verified 08/04/23 20:15 Concerta) methylphenidate HCl (From Allergy Unknown Verified 08/04/23 20:15 Ritalin) phenobarbital Allergy Hives Verified 08/04/23 20:15 Family History Other Asthma Diabetes Hypertension Kidney disease Surgical History Hx of cholecystectomy Hx of tympanostomy tubes H/O hernia repair Social History household members: family housing: house Smoking Status: Never smoker alcohol intake: never ROS ROS ED Constitutional Constitutional ED: Denies chills or fever(s) Eyes Eyes: Denies blurry vision or change in vision ENT ENT ED: Denies rhinorrhea or sore throat Cardiovascular Cardiovascular: Reports palpitations; Denies chest pain Respiratory/Chest Respiratory/Chest: Reports dyspnea; Denies cough Gastrointestinal Gastrointestinal: Denies nausea or vomiting Genitourinary Genitourinary ED: Denies dysuria or hematuria Musculoskeletal Musculoskeletal: Reports back pain; Denies neck pain Integumentary Denies abscess or rash Neurologic Neurologic: Denies headache(s) or weakness Allergic/Immunologic Allergic/Immunologic ED: Denies mouth swelling or urticaria EXAM Physical Exam Const Vital Signs: 11/27/23 14:08 11/27/23 14:18 11/27/23 14:31 Temperature 97.2 F L Temperature Source Temporal Pulse Rate 94 Respiratory Rate 23 H Respiratory Effort Short of Breath Blood Pressure 135/82 H Blood Pressure Mean 99 Pulse Ox 90 92 Oxygen Delivery Method Room Air Nasal Cannula Oxygen Flow Rate (L/min) 2 11/27/23 15:08 11/27/23 16:00 11/27/23 16:26 (more content not included)... Normal [facility] L501.4020on 11-27-2023 TROPONIN-I HS 5 pg/mL Normal 3.0-78.0 [facility] Comment on above: Result Comment: Plesuhail mckenzie Note: New Test Units and Gender Specific Reference Ranges. For more information see Policy Stat Procedure [place] High Sensitivity Troponin (TNIH) and attachments. Performed By: #### L 100.0100, L501.9100, L505.5000, L500.2500, L501.9060 #### [facility] [address] [place], [address] L501.5425on 11-27-2023 TROPONIN-I HS 4 pg/mL Normal 3.0-78.0 [facility] Comment on above: Order Comment: 1Y Result Comment: Plea se Note: New Test Units and Gender Specific Reference Ranges. For more information see Policy Stat Procedure [place] High Sensitivity Troponin (TNIH) and attachments. Performed By: #### L 100.0100, L501.9100, L505.5000, L500.2500, L501.9060 #### [facility] [address] [place], [address] Magnesiumon 11-27-2023 Magnesium [Mass/Vol] 1.9 mg/dL Normal 1.6-2.6 [facility] Comment on above: Order Comment: 1Y Performed By: #### L 501.5200, L501.9520, L501.5425, L500.2500, L100.0100 ####[facility] [address] [place], [address] Thyroid Stim Hormone (TSH)on 11-27-2023 TSH 0.904 uIU/mL Normal 0.358-3.740 [facility] Comment on above: Order Comment: 1Y Performed By: #### L 100.0100, L501.9100, L505.5000, L500.2500, L501.9060 #### [facility] [address] [place], [address] CNPNon [facility]2023 [facility] -------- LEVY TODD ([id number]) 1995 M Date Time Provider Department 11/17/23 PAMELA NIEVES [facility] During your visit today, we recorded the following information about you: Pamela Nieves APRN.NON DESTRUCTIVE TESTING TECHNICIAN 11/17/2023 1:14 PM Signed Please let patient know that his PFT's were inconclusive and his SOB may be related to his size. If he would like I can send him to pulmonary for further evaluation. Pam Gray MA 11/17/2023 2:56 PM Signed Pt mother notified. She would like him to see Pulmonary. COLT Santoyo Jacqueline A, APRN.CASTRO 11/17/2023 5:09 PM Signed Please facilitate scheduling of pulmonary consult. Patient lives in a long-term. Katina Shannon 11/17/2023 6:10 PM Signed Called patient and scheduled as directed Katina Shannon Allergies As of Date: 11/17/2023 Noted Allergy Reaction CONCERTA (METHYLPHENIDATE ANALOGU*07/08/2014 1 - Mental Status Change Comments: hyper DEPAKOTE (DIVALPROEX) 07/08/2020 5 - Intolerance PHENOBARBITAL 01/08/2005 5 - Intolerance RITALIN (METHYLPHENIDATE HCL) 01/08/2005 5 - Intolerance Comments: hyper Date Reviewed: 11/14/2023 Reviewed by: Ximena Moscoso RPFT - Fully Assessed Reason for Visit: Results [95] Primary Visit Diagnosis:Chronic cough [R05.3] Order(s):CONSULT TO PULMONARY MEDICINE [[id number]] Order #: [id number]: 1 Prescriptions as of 11/17/2023 - albuterol HFA (PROAIR HFA) 90 mcg/actuation inhaler Inhale 2 Puffs as instructed every 6 hours as needed. - dicyclomine (BENTYL) 10 mg capsule Take 1 capsule by mouth before meals and at bedtime. - lactase (LACTAID) 3,000 unit tablet Take 1 tablet by mouth three times a day with meals. - lidocaine (LIDODERM) 5 % Apply 1 Patch as directed every 12 hours. Remove old patch prior to placing new patch. Location: left leg - diclofenac (VOLTAREN ARTHRITIS PAIN) 1 % topical gel Apply 2 g to affected area four times daily. - omeprazole (PRILOSEC) 40 mg capsule Take 1 capsule by mouth once daily. - Cholecalciferol, Vitamin D3, 50 mcg (2,000 unit) cap Take 1 capsule by mouth once daily. - benztropine (COGENTIN) 0.5 mg tablet Take 1 tablet by mouth two times a day. - hydrOXYzine pamoate (VISTARIL) 25 mg capsule Take 1 capsule by mouth three times a day as needed. - lithium carbonate (ESKALITH) 300 mg capsule Take 2 capsules by mouth two times a day. - paliperidone palm, 3 month, (INVJOSE TRINZA) 819 mg/2.63 mL syrg To be given at office - lamoTRIgine (LAMICTAL) 200 mg tablet Take 1 tablet by mouth two times a day. - risperiDONE (RISPERDAL) 0.5 mg tablet Take 3 tablets by mouth two times a day. - triamcinolone acetonide (KENALOG) 0.1 % ointment Apply to affected area two times a day. - budesonide (PULMICORT FLEXHALER) 90 mcg/actuation aepb Inhale 2 Puffs as instructed two times a day. - urea (CARMOL) 40 % Apply to affected area once daily. - fluticasone (FLONASE) 50 mcg/actuation nasal spray Use 2 Sprays in each nostril once daily. Rinse mouth after use. - sertraline (ZOLOFT) 100 mg tablet Take 100 mg by mouth once daily. - ondansetron orally disintegrating (ZOFRAN ODT) 4 mg disintegrating tablet Take 1 tablet by mouth every 8 hours as needed for Nausea/Vomiting. Problem List As Of Date 11/17/2023 Noted Resolved SELECTIVE IG DEFIC NEC [D80.9] PMH - PAST MEDICAL HISTORY OF Convulsions in [P90] 10/02/2015 Attention deficit hyperactivity disorder (ADHD)* Ingrowing nail [L60.0] 01/08/2005 10/02/2015 Pain in limb [M79.609] 01/08/2005 10/02/2015 Onychia and paronychia of toe [L03.039] 04/15/2005 10/02/2015 Exostosis of unspecified site [M89.8X9] 05/31/2005 10/02/2015 Abnormality of gait [R26.9] 06/22/2005 10/02/2015 Abdominal pain, epigastric [R10.13] 10/13/2006 10/02/2015 Abdominal pain, generalized [R10.84] 10/13/2006 10/02/2015 Epilepsy (HCC) [G40.909] 04/09/2015 10/02/2015 Psychogenic nonepileptic seizure [F44.5] 10/02/2015 Asperger's syndrome [F84.5] 10/02/2015 Morbid obesity (HCC) [E66.01] 01/30/2016 GERD (gastroesophageal reflux disease) [K21.9] 01/30/2016 Mild intermittent asthma without complication [*01/30/2016 Neck pain [M54.2] 07/26/2018 Contusion of right knee [S80.01XA] 07/26/2018 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 SAE53-21% LLN (L/S) 2.88 L/S [facility] TDB40-96% POST (L/S) 0.83 L[facility] TXT11-33% PRE (L/S) 2.73 L/S [facility] FDB53-53% PREDICTED (L/S) 4.65 L/S [facility] FEF75% LLN (L/S) 1.03 L[facility]S [facility] FEF75% POST (L/S) 0.17 L[facility]S [facility] FEF75% PRE (L/S0 1.11 L[facility] FEF75% PREDICTED (L/S) 1.95 L/S Cl [facility] FEF75% ULN (L/S) 3.49 L/S [facility] FET POST (S) 4.56 S [facility] FET PRE (S) 5.63 S [facility] FEV1 LLN (L) 3.38 L [facility] FEV1 PRE (L) 3.12 L [facility] FEV1 PREDICTED (L) 4.34 L [facility] FEV1 ULN (L) 5.26 L [facility] FEV1/FVC LLN (%) 73 % [facility] FEV1/FVC POST (%) 84 % [facility] FEV1/FVC PRE (%) 78 % [facility] FEV1/FVC PREDICTED (%) 83 % Cl [facility] FEV1_POST (L) 2.68 L [facility] FRC Gas (L) 2.19 L [facility] FVC LLN (L) 4.08 L [facility] FVC POST (L) 3.19 L [facility] FVC PRE (L) 3.99 L [facility] FVC PREDICTED (L) 5.24 L [facility] FVC ULN (L) 6.42 L [facility] IC BOX (L) 2.08 L [facility] IC PREDICTED (L) 3.49 L/S [facility] PEF LLN (L/S) 8.06 L/S [facility] PEF POST (L/S) 7.65 L/S [facility] PEF PRE (L/S) 7.52 L/S [facility] PEF ULN (L/S) 12.80 L/S [facility] RV Box PREDICTED (L) 1.67 L [facility] RV Gas (L) 1.91 L [facility] RV Gas PREDICTED (L) 1.67 L [facility] RV/TLC Box PREDICTED (%) 23 % [facility] RV/TLC Gas (%) 41 % [facility] RV/TLC Gas PREDICTED (%) 23 L [facility] SVC LLN (L) 4.08 L/S [facility] SVC PREDICTED (L) 5.24 L/S [facility] SVC ULN (L) 6.42 L/S [facility] TLC Box PREDICTED (L) 7.06 L [facility] TLC Gas (L) 4.69 L [facility] TLC Gas PREDICTED (L) 7.06 L [facility] VC (L) BOX 2.96 L [facility] No Panel Informationon 11-13 [facility]ly [facility] [address], [place] [address] Test Date: 2023-11-14 Pat Name: LEVY TODD Department: Room: Gender: Male [employer]: : 1995 Requested By: Order Number: [id number] Reading MD: Radha Ospina MD Interpretive Statements Coordination difficulties. Only one acceptable or usable maneuver obtained for multiple breath washout. Repeatability could not be assessed. Results should be interpreted with caution. The two largest FVCs were not repeatable. The two largest FEV1s were not repeatable. Best test reported despite difficult testing session. 2 puffs Albuterol (180 mcg) delivered by MDI via holding chamber. HR pre = 95/min, HR post = 99/min. IMPRESSION: RT comments noted above. No obvious obstruction. Lung volumes could indicate restriction which could be attributable to body habitus. Electronically Signed On 11-14-2023 16:12:01 EDT by Radha Ospina MD ID: [id number] Name: LEVY TODD Race: White Ht: 70.79 in Wt: 323.00 lbs Age: 28 Gender: Male : 1995 Dx: Chronic cough_, Other forms of dyspnea Smoking Hx: Non-smoker Doctor: PAMELA NIEVES Test Date: 11/14/2023 Site: Tech: Ximena Moscoso PRE-BRONCH POST-BRONCH Pre LLN Pred ULN %Pred Post %Pred %Chg SPIROMETRY FVC (L) 3.99 4.08 5.24 6.42 76 3.19 60 -15 FEV1 (L) 3.12 3.38 4.34 5.26 71 2.68 61 -10 FEV1/FVC 0.78 0.73 0.83 0.92 94 0.84 100 7 PEF L/s (L/sec) 7.52 8.06 10.43 12.80 72 7.65 73 1 FEF50 (L/sec) 3.44 3.53 5.65 7.78 60 2.06 36 -40 FIF50 (L/sec) 5.04 4.45 -11 FEF50/FIF50 0.68 90-100 0.46 -32 FIVC (L) 2.71 2.27 -16 BKI22-74 (L/sec) 2.73 2.88 4.65 6.83 58 0.83 17 -69 Time (sec) 5.63 4.56 -19 FET PEF (sec) 0.11 0.07 -29 SASHA (L) 0.14 0.12 -15 Vol Extrap % (%) 4 4 5 LUNG VOLUMES FRC (N2) (L) 2.19 2.29 3.47 4.65 63 ERV (L) 0.88 1.75 50 RV (N2) (L) 1.91 1.05 1.67 2.28 114 SVC (L) 2.96 4.08 5.24 6.42 56 IC (L) 2.08 3.49 59 TLC (N2) (L) 4.69 5.75 7.06 8.36 66 RV/TLC (N2) (%) 41 16 23 31 174 Comments: Coordination difficulties. Only one acceptable or usable maneuver obtained for multiple breath washout. Repeatability could not be assessed. Results should be interpreted with caution. The two largest FVCs were not repeatable. The two largest FEV1s were not repeatable. Best test reported despite difficult testing session. 2 puffs Albuterol (180 mcg) delivered by MDI via holding chamber. HR pre = 95/min, HR post = 99/min. PULMONARY FUNCTION LAB [facility]11[facility]2023 [facility] -------- LEVY TODD ([id number]) 1995 M Date Time Provider Department 11/11/23 [facility] During your visit today, we recorded the following information about you: Pamela Nieves APRN.[facility] 11/11/2023 10:50 AM Signed Please let patient know their xray is normal. Pam Gray MA 11/11/2023 12:05 PM Signed Message left for pt to call back for results. Pam Caro MA, MA 11/14/2023 10:29 AM Signed Additional message left for pt to call back. COLT Santoyo Rilee, MA 11/15/2023 11:53 AM Signed [employer] message sent to pt notifying him office has attempted x 2 calls with message left to return call. Notified pt of normal chest XR result as noted below. Asked pt to notify office that message has been received. Will keep encounter open to make sure message has been read. Once read will close encounter. Klarissa Tyler MA Allergies As of Date: 11/11/2023 Noted Allergy Reaction CONCERTA (METHYLPHENIDATE ANALOGU*07/08/2014 1 - Mental Status Change Comments: hyper DEPAKOTE (DIVALPROEX) 07/08/2020 5 - Intolerance PHENOBARBITAL 01/08/2005 5 - Intolerance RITALIN (METHYLPHENIDATE HCL) 01/08/2005 5 - Intolerance Comments: hyper Date Reviewed: 11/10/2023 Reviewed by: Chantale Farah MA - Fully Assessed Reason for Visit: Results [95] Prescriptions as of 11/15/2023 - albuterol HFA (PROAIR HFA) 90 mcg/actuation inhaler Inhale 2 Puffs as instructed every 6 hours as needed. - dicyclomine (BENTYL) 10 mg capsule Take 1 capsule by mouth before meals and at bedtime. - lactase (LACTAID) 3,000 unit tablet Take 1 tablet by mouth three times a day with meals. - lidocaine (LIDODERM) 5 % Apply 1 Patch as directed every 12 hours. Remove old patch prior to placing new patch. Location: left leg - diclofenac (VOLTAREN ARTHRITIS PAIN) 1 % topical gel Apply 2 g to affected area four times daily. - omeprazole (PRILOSEC) 40 mg capsule Take 1 capsule by mouth once daily. - Cholecalciferol, Vitamin D3, 50 mcg (2,000 unit) cap Take 1 capsule by mouth once daily. - benztropine (COGENTIN) 0.5 mg tablet Take 1 tablet by mouth two times a day. - hydrOXYzine pamoate (VISTARIL) 25 mg capsule Take 1 capsule by mouth three times a day as needed. - lithium carbonate (ESKALITH) 300 mg capsule Take 2 capsules by mouth two times a day. - paliperidone palm, 3 month, (INVEGA TRINZA) 819 mg/2.63 mL syrg To be given at office - lamoTRIgine (LAMICTAL) 200 mg tablet Take 1 tablet by mouth two times a day. - risperiDONE (RISPERDAL) 0.5 mg tablet Take 3 tablets by mouth two times a day. - triamcinolone acetonide (KENALOG) 0.1 % ointment Apply to affected area two times a day. - budesonide (PULMICORT FLEXHALER) 90 mcg/actuation aepb Inhale 2 Puffs as instructed two times a day. - urea (CARMOL) 40 % Apply to affected area once daily. - fluticasone (FLONASE) 50 mcg/actuation nasal spray Use 2 Sprays in each nostril once daily. Rinse mouth after use. - sertraline (ZOLOFT) 100 mg tablet Take 100 mg by mouth once daily. - ondansetron orally disintegrating (ZOFRAN ODT) 4 mg disintegrating tablet Take 1 tablet by mouth every 8 hours as needed for Nausea/Vomiting. 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] PMH - PAST MEDICAL HISTORY OF Convulsions in [P90] 10/02/2015 Attention deficit hyperactivity disorder (ADHD)* Ingrowing nail [L60.0] 01/08/2005 10/02/2015 Pain in limb [M79.609] 01/08/2005 10/02/2015 Onychia and paronychia of toe [L03.039] 04/15/2005 10/02/2015 Exostosis of unspecified site [M89.8X9] 05/31/2005 10/02/2015 Abnormality of gait [R26.9] 06/22/2005 10/02/2015 Abdominal pain, epigastric [R10.13] 10/13/2006 10/02/2015 Abdominal pain, generalized [R10.84] 10/13/2006 10/02/2015 Epilepsy (HCC) [G40.909] 04/09/2015 10/02/2015 Psychogenic nonepileptic seizure [F44.5] 10/02/2015 Asperger's syndrome [F84.5] 10/02/2015 Morbid obesity (HCC) [E66.01] 01/30/2016 GERD (gastroesophageal reflux disease) [K21.9] 01/30/2016 Mild intermittent asthma without complication [*01/30/2016 Neck pain [M54.2] 07/26/2018 Contusion of right knee [S80.01XA] 07/26/2018 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 Box Estimator: PSCB Transcribe Date/Time: Nov 11 2023 10:45A Dictated by : JACLYN TURK MD This examination was interpreted and the report reviewed and electronically signed by: JACLYN TURK MD on Nov 11 2023 10:46AM [facility] DIVISION OF RADIOLOGY * * *Final Report* * * DATE OF EXAM: Nov 10 2023 2:46PM WOX [id number] - XR CHEST 2V FRONTAL/LAT / PROCEDURE REASON: multiple diagnoses * * * * Physician Interpretation * * * * EXAMINATION: CHEST RADIOGRAPH (2 VIEW FRONTAL & LATERAL) CLINICAL HISTORY: Chronic cough LYNN (dyspnea on exertion) MQ: XC2_6 EXAM DATE/TIME: 11/10/2023 2:46 PM COMPARISON: Chest x-ray on 08/25/2023 RESULT: Lines, tubes, and devices: None. Lungs and pleura: Small lung volume due to inadequate inspiration. No definite consolidations. No masses. No pleural effusions or pneumothorax. Cardiomediastinal silhouette: Normal cardiomediastinal silhouette. Bones and soft tissues: Unremarkable. DIVISION OF RADIOLOGY Provider, [facility] - 11/11/2023 * * *Final Report* * * DATE OF EXAM: Nov 10 2023 2:46PM WOX [id number] - XR CHEST 2V FRONTAL/LAT / PROCEDURE REASON: multiple diagnoses * * * * Physician Interpretation * * * * EXAMINATION: CHEST RADIOGRAPH (2 VIEW FRONTAL & LATERAL) CLINICAL HISTORY: Chronic cough LYNN (dyspnea on exertion) MQ: XC2_6 EXAM DATE/TIME: 11/10/2023 2:46 PM COMPARISON: Chest x-ray on 08/25/2023 RESULT: Lines, tubes, and devices: None. Lungs and pleura: Small lung volume due to inadequate inspiration. No definite consolidations. No masses. No pleural effusions or pneumothorax. Cardiomediastinal silhouette: Normal cardiomediastinal silhouette. Bones and soft tissues: Unremarkable. IMPRESSION IMPRESSION: No definite acute radiographic abnormality. Box Estimator: PSCB Transcribe Date/Time: Nov 11 2023 10:45A Dictated by : JACLYN TURK MD This examination was interpreted and the report reviewed and electronically signed by: JACLYN TURK MD on Nov 11 2023 10:46AM EST [facility] XR Chest PA and LateralOrder ed By: [facility] Provider on 11-11-2023 [facility] CNOVon 11-10-2023 [facility] -------- LEVY TODD ([id number]) 1995 M Date Time Provider Department 11/10/23 2:40 PM PAMELA NIEVES [facility] During your visit today, we recorded the following information about you: Pulse Respiration Blood pressure Weight 89/minute 16/minute 117/76 147.4 kg Pamela Nieves APRN.NON DESTRUCTIVE TESTING TECHNICIAN 11/10/2023 2:29 PM Signed Chief Complaint Patient presents with: Cough: X 6 months HPI Levy Todd is a 28 year old male who presents here today for Above Complaints.. Patient presents for chronic cough. Reports cough x6 months. Has mild intermittent asthma. Has albuterol and budesonide but reports he has not been using them when he is SOB. Reports LYNN. Past medical history, appointments, medications, allergies reviewed. 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 mom lost 6 before him. premature labor. delivered emergency because cord wrapped around his neck. born 8 lbs. went home with mom. 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 Previous Surgical History PAST SURGICAL HISTORY 01/26/2021: LAPAROSCOPY SURG CHOLECYSTECTOMY No date: MYRINGOTOMY ASPIRAND/EUSTACHIAN TUBE NFLTJ ANES Comment: Myringotomy/tubes No date: PAST SURGICAL HISTORY OF Comment: toe spur 01/26/2021: REMOVAL GALLBLADDER No date: RPR UMBILICAL HERNIA < 5 YRS REDUCIBLE Comment: Hernia repair, umbilical - repair of diastasis [...] Patient Allergies ALLERGIES Allergen Reactions Concerta [Methylphe* Mental Status Change hyper Depakote [Divalproe* Intolerance Phenobarbital Intolerance Ritalin [Methylphen* Intolerance hyper Current Medications Current Outpatient Medications on File Prior to Visit Medication Sig dicyclomine (BENTYL) 10 mg capsule Take 1 capsule by mouth before meals and at bedtime. lactase (LACTAID) 3,000 unit tablet Take 1 tablet by mouth three times a day with meals. benzonatate (TESSALON PERLES) 100 mg capsule Take 1 capsule by mouth three times a day as needed for cough. (Patient not taking: Reported on 10/24/2023) lidocaine (LIDODERM) 5 % Apply 1 Patch as directed every 12 hours. Remove old patch prior to placing new patch. Location: left leg diclofenac (VOLTAREN ARTHRITIS PAIN) 1 % topical gel Apply 2 g to affected area four times daily. omeprazole (PRILOSEC) 40 mg capsule Take 1 capsule by mouth once daily. Cholecalciferol, Vitamin D3, 50 mcg (2,000 unit) cap Take 1 capsule by mouth once daily. benztropine (COGENTIN) 0.5 mg tablet Take 1 tablet by mouth two times a day. hydrOXYzine pamoate (VISTARIL) 25 mg capsule Take 1 capsule by mouth three times a day as needed. lithium carbonate (ESKALITH) 300 mg capsule Take 2 capsules by mouth two times a day. paliperidone palm, 3 month, (INVEGA TRINZA) 819 mg/2.63 mL syrg To be given at office lamoTRIgine (LAMICTAL) 200 mg tablet Take 1 tablet by mouth two times a day. risperiDONE (RISPERDAL) 0.5 mg tablet Take 3 tablets by mouth two times a day. triamcinolone acetonide (KENALOG) 0.1 % ointment Apply to affected area two times a day. budesonide (PULMICORT FLEXHALER) 90 mcg/actuation aepb Inhale 2 Puffs as instructed two times a day. urea (CARMOL) 40 % Apply to affected area once daily. fluticasone (FLONASE) 50 mcg/actuation nasal spray Use 2 Sprays in each nostril once daily. Rinse mouth after use. albuterol HFA (PROAIR HFA) 90 mcg/actuation inhaler Inhale 2 Puffs as instructed every 6 hours as needed. sertraline (ZOLOFT) 100 mg tablet Take 100 mg by mouth once daily. ondansetron orally disintegrating (ZOFRAN ODT) 4 mg disintegrating tablet Take 1 tablet by mouth e (more content not included)... Normal [facility] XR CHEST 2V FRONTAL/LATon XR CHEST 2V FRONTAL/LAT * * *Final Repor t* * * DATE OF EXAM: Nov 10 2023 2:46PM WOX 5291 - XR CHEST 2V FRONTAL/LAT / PROCEDURE REASON: multiple diagnoses * * * * Physician Interpretation * * * * EXAMINATION: CHEST RADIOGRAPH (2 VIEW FRONTAL and LATERAL) CLINICAL HISTORY: Chronic cough LYNN (dyspnea on exertion) MQ: XC2_6 EXAM DATE/TIME: 11/10/2023 2:46 PM COMPARISON: Chest x-ray on 08/25/2023 RESULT: Lines, tubes, and devices: None. Lungs and pleura: Small lung volume due to inadequate inspiration. No definite consolidations. No masses. No pleural effusions or pneumothorax. Cardiomediastinal silhouette: Normal cardiomediastinal silhouette. Bones and soft tissues: Unremarkable. IMPRESSION: No definite acute radiographic abnormality. Box Estimator: PSCB Transcribe Date/Time: Nov 11 2023 10:45A Dictated by : JACLYN TURK MD This examination was interpreted and the report reviewed and electronically signed by: JACLYN TURK MD on Nov 11 2023 10:46AM EST [id number] Normal [facility] XR Chest PA and Lateralon Radiology Study observation (narrative) [facility] CNOVon 10-24-2023 CNOV Office Visit (UCWSTR ) -------- LEVY TODD ([id number]) 1995 M Date Time Provider Department 10/24/23 3:30 PM WOO VARGAS [facility] During your visit today, we recorded the following information about you: Temperature Pulse Respiration Blood pressure 98.8 degrees 80/minute 18/minute 134/78 Weight 144.9 kg Woo Vargas APRN.NON DESTRUCTIVE TESTING TECHNICIAN 10/24/2023 3:50 PM Signed Subjective HPI HPI Levy Todd is a 28 year old male who presents today for CC of sore throat. This started few days ago. Has tried otc medication for relief. Symptoms are worsened by nothing. Risk factors no sick exposures Diarrhea without blood for few weeks, 3 times per day. Denies abdomina pain. 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 mom lost 6 before him. premature labor. delivered emergency because cord wrapped around his neck. born 8 lbs. went home with mom. 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 lactase (LACTAID) 3,000 unit tablet Take 1 tablet by mouth three times a day with meals. lidocaine (LIDODERM) 5 % Apply 1 Patch as directed every 12 hours. Remove old patch prior to placing new patch. Location: left leg diclofenac (VOLTAREN ARTHRITIS PAIN) 1 % topical gel Apply 2 g to affected area four times daily. omeprazole (PRILOSEC) 40 mg capsule Take 1 capsule by mouth once daily. Cholecalciferol, Vitamin D3, 50 mcg (2,000 unit) cap Take 1 capsule by mouth once daily. benztropine (COGENTIN) 0.5 mg tablet Take 1 tablet by mouth two times a day. hydrOXYzine pamoate (VISTARIL) 25 mg capsule Take 1 capsule by mouth three times a day as needed. lithium carbonate (ESKALITH) 300 mg capsule Take 2 capsules by mouth two times a day. traZODone (DESYREL) 50 mg tablet Take 1 tablet by mouth daily at bedtime. paliperidone palm, 3 month, (INVJOSE URIBEZA) 819 mg/2.63 mL syrg To be given at office lamoTRIgine (LAMICTAL) 200 mg tablet Take 1 tablet by mouth two times a day. risperiDONE (RISPERDAL) 0.5 mg tablet Take 3 tablets by mouth two times a day. triamcinolone acetonide (KENALOG) 0.1 % ointment Apply to affected area two times a day. budesonide (PULMICORT FLEXHALER) 90 mcg/actuation aepb Inhale 2 Puffs as instructed two times a day. urea (CARMOL) 40 % Apply to affected area once daily. fluticasone (FLONASE) 50 mcg/actuation nasal spray Use 2 Sprays in each nostril once daily. Rinse mouth after use. albuterol HFA (PROAIR HFA) 90 mcg/actuation inhaler Inhale 2 Puffs as instructed every 6 hours as needed. sertraline (ZOLOFT) 100 mg tablet Take 100 mg by mouth once daily. ondansetron orally disintegrating (ZOFRAN ODT) 4 mg disintegrating tablet Take 1 tablet by mouth every 8 hours as needed for Nausea/Vomiting. albuterol HFA (PROVENTIL HFA, VENTOLIN HFA) 90 mcg/actuation inhaler Inhale 2 Puffs as instructed every 4 hours as needed. benzonatate (TESSALON PERLES) 100 mg capsule Take 1 capsule by mouth three times a day as needed for cough. (Patient not taking: Reported on 10/24/2023) FAMILY HISTORY Problem Relation Age of Onset Allergies Mother Arthritis Mother Hypertension Mother Alcohol/Drug Mother Diabetes Mother Hypertension Father Stroke Father Allergies Maternal Grandmother Arthritis Maternal Grandmother Diabetes Maternal Grandmother Hypertension Maternal Grandmother Arthritis Maternal Grandfather Hypertension Maternal Grandfather Seizures Maternal Grandfather Stroke Maternal Grandfather Hypertension Paternal Grandmother Hypertension (more content not included)... Normal [facility] STREP A MOLECULAR (POC)on Procedural Control Valid [facility] Strep A (POCT) Negative Negative [facility] CNOVon 09-19-2023 CNOV Office Visit (FAMPWS ) -------- LEVY TODD ([id number]) 1995 M Date Time Provider Department 09/19/23 3:00 PM ANGELINA CLAUDIO During your visit today, we recorded the following information about you: Temperature Pulse Blood pressure Weight 98.5 degrees 110/minute 120/75 141.5 kg Angelina Claudio, CHIEF COOK.NON DESTRUCTIVE TESTING TECHNICIAN 09/19/2023 3:28 PM Signed This is a 27 year old male who presents today with: Patient presents with: 6 Month Exam HISTORY OF PRESENT ILLNESS: Levy Todd is a 27 year old male. Patient presents with: 6 Month Exam Headache- frontal. Gets a headache once a week that lastst a day or two. No nausea. Some diarrhea today. Thinks he didn't agree with the squash he ate. PAST MEDICAL HISTORY: PAST MEDICAL HISTORY Diagnosis [...] delivered emergency because cord wrapped around his neck. born 8 lbs. went home with mom. [...] Hcl] MEDICATIONS Current Outpatient Medications Medication Sig benzonatate (TESSALON PERLES) 100 mg capsule Take 1 capsule by mouth three times a day as needed for cough. lidocaine (LIDODERM) 5 % Apply 1 Patch as directed every 12 hours. Remove old patch prior to placing new patch. Location: left leg diclofenac (VOLTAREN ARTHRITIS PAIN) 1 % topical gel Apply 2 g to affected area four times daily. omeprazole (PRILOSEC) 40 mg capsule Take 1 capsule by mouth once daily. Cholecalciferol, Vitamin D3, 50 mcg (2,000 unit) cap Take 1 capsule by mouth once daily. benztropine (COGENTIN) 0.5 mg tablet Take 1 tablet by mouth two times a day. hydrOXYzine pamoate (VISTARIL) 25 mg capsule Take 1 capsule by mouth three times a day as needed. lithium carbonate (ESKALITH) 300 mg capsule Take 2 capsules by mouth two times a day. traZODone (DESYREL) 50 mg tablet Take 1 tablet by mouth daily at bedtime. paliperidone palm, 3 month, (INVEGA TRINZA) 819 mg/2.63 mL syrg To be given at office lamoTRIgine (LAMICTAL) 200 mg tablet Take 1 tablet by mouth two times a day. risperiDONE (RISPERDAL) 0.5 mg tablet Take 3 tablets by mouth two times a day. triamcinolone acetonide (KENALOG) 0.1 % ointment Apply to affected area two times a day. budesonide (PULMICORT FLEXHALER) 90 mcg/actuation aepb Inhale [...] as instructed every 6 hours as needed. sertraline (ZOLOFT) 100 mg tablet Take 100 mg by mouth once daily. ondansetron orally disintegrating (ZOFRAN ODT) 4 mg disintegrating tablet Take 1 tablet by mouth every 8 hours as needed for Nausea/Vomiting. albuterol HFA (PROVENTIL HFA, VENTOLIN HFA) 90 mcg/actuation inhaler Inhale 2 Puffs as instructed every 4 hours as needed. predniSONE (DELTASONE) 10 mg tablet Take 4 tabs daily for 3 days, then 2 tabs daily for 3 days, then 1 tab daily for 3 days with food. No current facility-administered medications for this visit. [...] status: Never Smokeless tobacco: Never Vaping Use (more content not included)... Normal [facility] 09-10-2023 PROLACTIN 31.7 ng/mL Normal [facility] Comment on above: Result Comment: NORMAL REFERENCE RANGES FEMALE NON- 2.2 - 30.3 ng/mL 8.1 - 347.6 ng/mL POST-MENOPAUSAL 0.7 - 31.5 ng/mL MALE 2.5 - 17.4 ng/mL Performed By: #### L 100.0100, L501.9100, L505.5000, L500.2500, L501.9060 #### [facility] [address] [place], [place], [id number] Comprehensive Metabolic [facility] 09-09-2023 Albumin [Mass/Vol] 3.5 g/dL Normal 3.2-5.0 [facility] Comment on above: Performed By: #### L 100.0100, L501.9100, L505.5000, L500.2500, L501.9060 #### [facility] [address] [place], [place], [id number] Albumin/Globulin [Mass ratio] 1.0 {ratio} Normal 0.9-2.4 [facility] Comment on above: Performed By: #### L 100.0100, L501.9100, L505.5000, L500.2500, L501.9060 #### [facility] [address] [place], [address] ALK P 88 U/L Normal 45-117 [facility] Comment on above: Performed By: #### L 100.0100, L501.9100, L505.5000, L500.2500, L501.9060 #### [facility] [address] [place], [address] ALT [Catalytic activity/Vol] 26 U/L Normal 16-61 [facility] Comment on above: Performed By: #### L 100.0100, L501.9100, L505.5000, L500.2500, L501.9060 #### [facility] [address] [place], [address] AST [Catalytic activity/Vol] 14 U/L Low 15-37 [facility] Comment on above: Performed By: #### L 100.0100, L501.9100, L505.5000, L500.2500, L501.9060 #### [facility] [address] [place], [address] Bilirubin [Mass/Vol] 0.30 mg/dL Normal 0.20-1.00 [facility] Comment on above: Result Comment: For patients on eltrombopag therapy, use of Dimension [place] TBIL is not recommended. Performed By: #### L 100.0100, L501.9100, L505.5000, L500.2500, L501.9060 #### [facility] [address] [place], [address] BUN/CRE 17.3 RATIO Normal 10-20 [facility] Comment on above: Performed By: #### L 100.0100, L501.9100, L505.5000, L500.2500, L501.9060 #### [facility] [address] [place], [address] CA,Total 9.1 mg/dL Normal 8.5-10.1 [facility] Comment on above: Performed By: #### L 100.0100, L501.9100, L505.5000, L500.2500, L501.9060 #### [facility] [address] [place], [address] Chloride [Moles/Vol] 108 mmol/L High 98-107 [facility] Comment on above: Performed By: #### L 100.0100, L501.9100, L505.5000, L500.2500, L501.9060 #### [facility] [address] [place], [address] CO2 [Moles/Vol] 25.0 mmol/L Normal 21.0-32.0 [facility] Comment on above: Performed By: #### L 100.0100, L501.9100, L505.5000, L500.2500, L501.9060 #### [facility] [address] [place], [address] Creatinine [Mass/Vol] 0.64 mg/dL Low 0.70-1.30 [facility] Comment on above: Result Comment: The validity of the calculated GFR GFRAA in patients over 70 years has not been determined. Clinical correlation is essential. Performed By: #### L 100.0100, L501.9100, L505.5000, L500.2500, L501.9060 #### [facility] [address] [place], [address] EST GFR - AA 190 mL/min Normal >60 [facility] Comment on above: Result Comment: Afri can Montserratian GFR Calc Performed By: #### L 100.0100, L501.9100, L505.5000, L500.2500, L501.9060 #### [facility] [address] [place], [address] GAP 6 Normal 5-15 [facility] Comment on above: Performed By: #### L 100.0100, L501.9100, L505.5000, L500.2500, L501.9060 #### [facility] [address] [place], [address] GFR/1.73 sq M.predicted among non-blacks MDRD (S/P/Bld) [Vol rate/Area] 157 mL/min/{1.73_m2} Normal >60 [facility] Comment on above: Result Comment: Non- GFR Calc Performed By: #### L 100.0100, L501.9100, L505.5000, L500.2500, L501.9060 #### [facility] [address] [place], [address] Globulin (S) [Mass/Vol] 3.5 g/dL Normal 2.2-4.2 [facility] Comment on above: Performed By: #### L 100.0100, L501.9100, L505.5000, L500.2500, L501.9060 #### [facility] [address] [place], [address] Glucose [Mass/Vol] 99 mg/dL Normal 74-106 [facility] Comment on above: Performed By: #### L 100.0100, L501.9100, L505.5000, L500.2500, L501.9060 #### [facility] [address] [place], [address] Potassium [Moles/Vol] 3.8 mmol/L Normal 3.5-5.1 [facility] Comment on above: Performed By: #### L 100.0100, L501.9100, L505.5000, L500.2500, L501.9060 #### [facility] [address] [place], [address] Sodium [Moles/Vol] 139 mmol/L Normal 136-145 [facility] Comment on above: Performed By: #### L 100.0100, L501.9100, L505.5000, L500.2500, L501.9060 #### [facility] [address] [place], [address] T PROT 7.0 g/dL Normal 6.4-8.2 [facility] Comment on above: Performed By: #### L 100.0100, L501.9100, L505.5000, L500.2500, L501.9060 #### [facility] [address] [place], [address] Urea nitrogen [Mass/Vol] 11 mg/dL Normal 7-18 [facility] Comment on above: Performed By: #### L 100.0100, L501.9100, L505.5000, L500.2500, L501.9060 #### [facility] [address] [place], [address] Lithiumon 09-09-2023 LI < 0.20 Low 0.60-1.20 [facility] Comment on above: Order Comment: [id number] Performed By: #### L 100.0100, L501.9100, L505.5000, L500.2500, L501.9060 #### [facility] [address] [place], [address] Thyroid Stim Hormone (TSH)on 09-09-2023 TSH 1.54 uIU/mL Normal 0.358-3.74 [facility] Comment on above: Performed By: #### L 100.0100, L501.9100, L505.5000, L500.2500, L501.9060 #### [facility] [address] [place], [address] XR Chest PA and Lateralon IMPRESSION: No acute radiographic abnormality. Box Estimator: KAUSHAL Transcribe Date/Time: Aug 25 2023 1:37P Dictated by : ANTONIETA ADVIDSON MD This examination was interpreted and the report reviewed and electronically signed by: ANTONIETA DAVIDSON MD on Aug 25 2023 1:37PM [facility] DIVISION OF RADIOLOGY * * *Final Report* * * DATE OF EXAM: Aug 25 2023 1:36PM WOX 5291 - XR CHEST 2V FRONTAL/LAT / PROCEDURE REASON: Acute cough * * * * Physician Interpretation * * * * EXAMINATION: CHEST RADIOGRAPH (2 VIEW FRONTAL & LATERAL) CLINICAL HISTORY: Acute cough MQ: XC2_6 EXAM DATE/TIME: 08/25/2023 1:36 PM COMPARISON: Chest x-ray 03/22/2023 RESULT: Lines, tubes, and devices: None. Lungs and pleura: No consolidation. No lung mass. No pleural effusion. No pneumothorax. Cardiomediastinal silhouette: Normal cardiomediastinal silhouette. Bones and soft tissues: Unremarkable. DIVISION OF RADIOLOGY Provider, Darleen Mckenzie Quinn - 08/25/2023 * * *Final Report* * * DATE OF EXAM: Aug 25 2023 1:36PM WOX 5291 - XR CHEST 2V FRONTAL/LAT / PROCEDURE REASON: Acute cough * * * * Physician Interpretation * * * * EXAMINATION: CHEST RADIOGRAPH (2 VIEW FRONTAL & LATERAL) CLINICAL HISTORY: Acute cough MQ: XC2_6 EXAM DATE/TIME: 08/25/2023 1:36 PM COMPARISON: Chest x-ray 03/22/2023 RESULT: Lines, tubes, and devices: None. Lungs and pleura: No consolidation. No lung mass. No pleural effusion. No pneumothorax. Cardiomediastinal silhouette: Normal cardiomediastinal silhouette. Bones and soft tissues: Unremarkable. IMPRESSION IMPRESSION: No acute radiographic abnormality. Box Estimator: PSCB Transcribe Date/Time: Aug 25 2023 1:37P Dictated by : ANTONIETA DAVIDSON MD This examination was interpreted and the report reviewed and electronically signed by: ANTONIETA DAVIDSON MD on Aug 25 2023 1:37PM EST [facility] Radiology Study observation (narrative) Nelida Wall XR Chest PA and LateralOrder ed By: [facility] Provider on 08-25-2023 [facility] Alcohol, Blood (Medical)-Ser umon 08-04-2023 SERUM ETOH < 3.0 Normal [facility] Comment on above: Result Comment: The serum:whole blood ethanol ratio is approximately 1.14 and varies slightly with hematocrit. Medical Alcohol reference interval and critical value in non-tolerant individuals; 50 - 100 Impairment 100 Intoxication 100 - 250 Severe Poisoning 250 - 400 Deep/possible fatal coma Performed By: #### L 100.0100, L501.9100, L505.5000, L500.2500, L501.9060 #### [facility] [address] [place], [address] Basic Metabolic Profile (BMP )on 08-04-2023 BUN/CRE 17.5 RATIO Normal 10-20 [facility] Comment on above: Performed By: #### L 100.0100, L501.9100, L505.5000, L500.2500, L501.9060 #### [facility] [address] [place], [address] CA,Total 9.2 mg/dL Normal 8.5-10.1 [facility] Comment on above: Performed By: #### L 100.0100, L501.9100, L505.5000, L500.2500, L501.9060 #### [facility] [address] [place], [address] Chloride [Moles/Vol] 106 mmol/L Normal 98-107 [facility] Comment on above: Performed By: #### L 100.0100, L501.9100, L505.5000, L500.2500, L501.9060 #### [facility] [address] [place], [address] CO2 [Moles/Vol] 26.0 mmol/L Normal 21.0-32.0 [facility] Comment on above: Performed By: #### L 100.0100, L501.9100, L505.5000, L500.2500, L501.9060 #### [facility] [address] [place], [address] Creatinine [Mass/Vol] 0.86 mg/dL Normal 0.70-1.30 [facility] Comment on above: Result Comment: The validity of the calculated GFR GFRAA in patients over 70 years has not been determined. Clinical correlation is essential. Performed By: #### L 100.0100, L501.9100, L505.5000, L500.2500, L501.9060 #### [facility] [address] [place], [address] ECRCL 178.56 ml/min Normal [facility] Comment on above: Performed By: #### L 100.0100, L501.9100, L505.5000, L500.2500, L501.9060 #### [facility] [address] [place], [address] EST GFR - AA 135 mL/min Normal >60 [facility] Comment on above: Result Comment: Afri can [place]err[place]ian GFR Calc Performed By: #### L 100.0100, L501.9100, L505.5000, L500.2500, L501.9060 #### [facility] [address] [place], [address] GAP 5 Normal 5-15 [facility] Comment on above: Performed By: #### L 100.0100, L501.9100, L505.5000, L500.2500, L501.9060 #### [facility] [address] [place], [address] GFR/1.73 sq M.predicted among non-blacks MDRD (S/P/Bld) [Vol rate/Area] 111 mL/min/{1.73_m2} Normal >60 [facility] Comment on above: Result Comment: Non- GFR Calc Performed By: #### L 100.0100, L501.9100, L505.5000, L500.2500, L501.9060 #### [facility] [address] [place], [address] Glucose [Mass/Vol] 107 mg/dL High 74-106 [facility] Comment on above: Result Comment: Fast ing Glucose result from 100 to 125 mg/dL suggests IMPAIRED HOMEOSTASIS per A.D.A. criteria. Performed By: #### L 100.0100, L501.9100, L505.5000, L500.2500, L501.9060 #### [facility] [address] [place], [address] Potassium [Moles/Vol] 3.5 mmol/L Normal 3.5-5.1 [facility] Comment on above: Performed By: #### L 100.0100, L501.9100, L505.5000, L500.2500, L501.9060 #### [facility] [address] [place], [address] Sodium [Moles/Vol] 137 mmol/L Normal 136-145 [facility] Comment on above: Performed By: #### L 100.0100, L501.9100, L505.5000, L500.2500, L501.9060 #### [facility] [address] [place], [address] Urea nitrogen [Mass/Vol] 15 mg/dL Normal 7-18 [facility] Comment on above: Performed By: #### L 100.0100, L501.9100, L505.5000, L500.2500, L501.9060 #### [facility] [address] [place], [address] CBC W/Diff, Automatedon 06-0 -2023 Absolute Lymph 3.67 X10 3/uL Normal 0.83-4.51 [facility] Comment on above: Performed By: #### L 100.0100, L501.9100, L505.5000, L500.2500, L501.9060 #### [facility] [address] [place], [address] Absolute Neut 7.0 X10 3/uL Normal 2.0-7.7 [facility] Comment on above: Performed By: #### L 100.0100, L501.9100, L505.5000, L500.2500, L501.9060 #### [facility] [address] [place], [address] Basophils/100 WBC (Bld) 0.1 % Normal 0-1 [facility] Comment on above: Performed By: #### L 100.0100, L501.9100, L505.5000, L500.2500, L501.9060 #### [facility] [address] [place], [address] Eosinophils/100 WBC (Bld) 0.0 % Normal 0-5 [facility] Comment on above: Performed By: #### L 100.0100, L501.9100, L505.5000, L500.2500, L501.9060 #### [facility] [address] [place], [address] Erythrocyte distribution width (RBC) [Ratio] 13.6 % Normal 11.6-14.6 [facility] Comment on above: Performed By: #### L 100.0100, L501.9100, L505.5000, L500.2500, L501.9060 #### [facility] [address] [place], [address] Hematocrit (Bld) [Volume fraction] 37.3 % Low 40-54 [facility] Comment on above: Performed By: #### L 100.0100, L501.9100, L505.5000, L500.2500, L501.9060 #### [facility] [address] [place], [address] Hemoglobin (Bld) [Mass/Vol] 12.0 g/dL Low 13.0-16.5 [facility] Comment on above: Performed By: #### L 100.0100, L501.9100, L505.5000, L500.2500, L501.9060 #### [facility] [address] [place], [address] IG% 0.300 Normal 0.0-0.9 [facility] Comment on above: Result Comment: IG% - Immature Granulocytes (promyelocytes, myelocytes and metamyelocytes) > 1% indicates that a LEFT SHIFT is Present. Performed By: #### L 100.0100, L501.9100, L505.5000, L500.2500, L501.9060 #### [facility] [address] [place], [address] Lymphocytes/100 WBC (Bld) 31.7 % Normal 19-41 [facility] Comment on above: Performed By: #### L 100.0100, L501.9100, L505.5000, L500.2500, L501.9060 #### [facility] [address] [place], [address] MCH (RBC) [Entitic mass] 27.1 pg Normal 27.0-32.0 [facility] Comment on above: Performed By: #### L 100.0100, L501.9100, L505.5000, L500.2500, L501.9060 #### [facility] [address] [place], [address] MCHC (RBC) [Mass/Vol] 32.2 g/dL Normal 32-36 [facility] Comment on above: Performed By: #### L 100.0100, L501.9100, L505.5000, L500.2500, L501.9060 #### [facility] [address] [place], [address] MCV (RBC) [Entitic vol] 84.2 fL Normal 80-94 [facility] Comment on above: Performed By: #### L 100.0100, L501.9100, L505.5000, L500.2500, L501.9060 #### [facility] [address] [place], [address] Monocytes/100 WBC (Bld) 7.4 % Normal 0-10 [facility] Comment on above: Performed By: #### L 100.0100, L501.9100, L505.5000, L500.2500, L501.9060 #### [facility] [address] [place], [address] Neutrophils/100 WBC (Bld) 60.5 % Normal 47-70 [facility] Comment on above: Performed By: #### L 100.0100, L501.9100, L505.5000, L500.2500, L501.9060 #### [facility] [address] [place], [address] Nucleated RBC (Bld) [#/Vol] 0 10*3/uL Normal 0-5 [facility] Comment on above: Performed By: #### L 100.0100, L501.9100, L505.5000, L500.2500, L501.9060 #### [facility] [address] [place], [address] Platelet mean volume (Bld) [Entitic vol] 8.9 fL Normal 6.2-12.0 [facility] Comment on above: Performed By: #### L 100.0100, L501.9100, L505.5000, L500.2500, L501.9060 #### [facility] [address] [place], [address] Platelets (Bld) [#/Vol] 326 10*3/uL Normal 150-450 [facility] Comment on above: Performed By: #### L 100.0100, L501.9100, L505.5000, L500.2500, L501.9060 #### [facility] [address] [place], [address] RBC (Bld) [#/Vol] 4.43 10*6/uL Low 4.6-6.2 [facility] Comment on above: Performed By: #### L 100.0100, L501.9100, L505.5000, L500.2500, L501.9060 #### [facility] [address] [place], [address] RDW SD 42.0 fl Normal 35.1-43.9 [facility] Comment on above: Performed By: #### L 100.0100, L501.9100, L505.5000, L500.2500, L501.9060 #### [facility] [address] [place], [address] WBC (Bld) [#/Vol] 11.6 10*3/uL High 4.4-11.0 [facility] Comment on above: Performed By: #### L 100.0100, L501.9100, L505.5000, L500.2500, L501.9060 #### [facility] [address] [facility] [place], [address] Emergency Department Summary on 08-04-2023 Emergency Department Summary [facility] Medical Records Department [address] [facility] [place] [address] Emergency Department Summary 08/04/23 MR#: [id number] Acct: [id number] Name: LEVY TODD Rep #: [id number] : 1995 27 From: Cliff Nunn DO PCP: Dr. Turner Bundy MD Status:REG ER Location: ED HPI HPI - Psych History of Present Illness Chief Complaint: Suicidal Narrative Narrative: 47-year-old male with history of schizophrenia, bipolar disorder, anxiety, depression, PTSD presenting with suicidal thoughts. His family states this thoughts been racing all week. They state that recently they were taken to court to try to take him away from the home because they did not think his mother could care for him and in addition to this his neighbor who is his best friend moved away and he changes it made him internally stimulated and is mom states his thoughts been racing all week. Today he was on a field trip to the [employer] and was not wanting to tell the staff there that he was feeling the spots. When he got home he was not acting normally he was very quiet did not want talk to his mom which she thought was abnormal and after talking to realize that he has suicidal thoughts that are worsening and he has a plan to cut his hand off. No previous attempts with the patient has been admitted several times due to these thoughts. 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 Home Medications ???Medication ???Instructions ???Recorded ???Last Taken ???Type omeprazole 40 mg capsule,delayed 40 mg PO DAILY 12/24/15 Unknown History release lamotrigine 200 mg tablet 200 mg PO BID 11/19/20 Unknown History paliperidone 6 mg tablet,extended 3 mg PO QHS 06/02/22 Unknown History release 24 hr paliperidone palm (3 month) 819 819 mg IM Q3M 06/02/22 05/31/22 History mg/2.63 mL intramuscular syringe (Invega Trinza) albuterol sulfate 90 mcg/actuation 2 puff inhalation Q6H PRN 04/17/23 Unknown History aerosol inhaler shortness of breath or wheezing bisacodyl 5 mg tablet,delayed 5 mg PO DAILY PRN constipation 04/17/23 Unknown History release (Dulcolax (bisacodyl)) dicyclomine 10 mg capsule 10 mg PO TID 04/17/23 Unknown History docusate sodium 100 mg capsule 100 mg PO DAILY 04/17/23 Unknown History (Colace) lidocaine 5 % topical patch 1 patch transdermal DAILY 04/17/23 Unknown History lithium carbonate 300 mg capsule 300 mg PO QHS 04/17/23 Unknown History sertraline 100 mg tablet 100 mg PO Q24H 04/17/23 Unknown History triamcinolone acetonide 0.1 % 1 applic topical BID PRN muscle 04/17/23 Unknown History topical ointment relaxer urea 40 % topical cream 1 applic topical DAILY 04/17/23 Unknown History naproxen 500 mg tablet (Naprosyn) 500 mg PO BID PRN pain #20 tabs 07/31/23 Unknown Rx prednisone 20 mg tablet 40 mg (2 x 20 mg) PO DAILY #8 tabs 07/31/23 Unknown Rx Allergy/AdvReac Type Severity Reaction Status Date / Time bee venom protein (honey bee) Allergy Anaphylaxis Verified 08/04/23 20:15 carbamazepine (From Tegretol) Allergy Unknown Verified 08/04/23 20:15 divalproex sodium (From Allergy Other Verified 08/04/23 20:15 Depakote) methylphenidate (From Allergy Unknown Verified 08/04/23 20:15 Concerta) methylphenidate HCl (From Allergy Unknown Verified 08/04/23 20:15 Ritalin) phenobarbital Allergy Hives Verified 08/04/23 20:15 Family History Other Asthma Diabetes Hypertension Kidney disease Surgical History Hx of cholecystectomy Hx of tympanostomy tubes H/O hernia repair Social History household members: family housing: house Smoking Status: Never smoker alcohol intake: never ROS ROS ED Constitutional Constitutional ED: Denies chills, fever(s) or sweats Eyes Eyes: Denies blurry vision or change in vision ENT ENT ED: Denies ear pain or sore throat Cardiovascular Cardiovascular: Denies chest pain, palpitations or racing heartbeat Respiratory/Chest Respiratory/Chest: Denies cough, dyspnea or sputum Gastrointestinal Gastrointestinal: Denies abdominal pain, constipation, diarrhea, nausea or vomiting Genitourinary Genitourinary ED: Denies dysuria, hematuria or urinary frequency Musculoskeletal Musculoskeletal: Denies arthralgias, myalgias or neck pain Integumentary Denies abscess, Abrasions or rash Neurologic Neurologic: Frank (more content not included)... Normal [facility] Lithiumon 08-04-2023 LI 0.60 mmol/L Normal 0.60-1.20 [facility] Comment on above: Performed By: #### L 100.0100, L501.9100, L505.5000, L500.2500, L501.9060 #### [facility] [address] [place], [address] Urine Drug Screen (VISTA)on 08-04-2023 AMPHETAMINES Negative Normal <1000 ng/mL [facility] Comment on above: Performed By: #### L 100.0100, L501.9100, L505.5000, L500.2500, L501.9060 #### [facility] [address] [place], [address] BARBITIURATES Negative Normal < 200 ng/mL [facility] Comment on above: Performed By: #### L 100.0100, L501.9100, L505.5000, L500.2500, L501.9060 #### [facility] [address] [place], [address] BENZODIAZIPINE Negative Normal < 200 ng/mL [facility] Comment on above: Performed By: #### L 100.0100, L501.9100, L505.5000, L500.2500, L501.9060 #### [facility] [address] [place], [address] COCAINE Negative Normal < 300 ng/mL [facility] Comment on above: Performed By: #### L 100.0100, L501.9100, L505.5000, L500.2500, L501.9060 #### [facility] [address] [place], [address] ECSTACY Negative Normal < 500 ng/mL [facility] Comment on above: Performed By: #### L 100.0100, L501.9100, L505.5000, L500.2500, L501.9060 #### [facility] [address] [place], [address] METHADONE Negative Normal < 300 ng/mL [facility] Comment on above: Performed By: #### L 100.0100, L501.9100, L505.5000, L500.2500, L501.9060 #### [facility] [address] [place], [address] OPIATES Negative Normal < 300 ng/mL [facility] Comment on above: Performed By: #### L 100.0100, L501.9100, L505.5000, L500.2500, L501.9060 #### [facility] [address] [place], [address] PCP Negative Normal < 25 ng/mL [facility] Comment on above: Performed By: #### L 100.0100, L501.9100, L505.5000, L500.2500, L501.9060 #### [facility] [address] [place], [address] THC Negative Normal < 50 ng/mL [facility] Comment on above: Performed By: #### L 100.0100, L501.9100, L505.5000, L500.2500, L501.9060 #### [facility] [address] [place], [address] VISTA UDS PH 6 Normal [facility] Comment on above: Performed By: #### L 100.0100, L501.9100, L505.5000, L500.2500, L501.9060 #### [facility] [address] [place], [address] 12 Lead EKGon 07-31-2023 12 Lead EKG [facility] Cardiovascular Services [address] [place] [address] 12 Lead EKG 07/31/23 2110 MR#: [id number] Acct: [id number] Name: LEVY TODD Rep #: [id number] : 1995 27 From: Leland Butler MD Attending Dr: Status: DEP ER Ordering Dr: Sisi Zavala MD Date: 07/31/23 Location: ED Sex: M C Admitted: Test Reason : CP Blood Pressure : / mmHG Vent. Rate : 095 BPM Atrial Rate : 095 BPM P-R Int : 162 ms QRS Dur : 100 ms QT Int : 354 ms P-R-T Axes : 026 016 028 degrees QTc Int : 444 ms Normal sinus rhythm Normal ECG Confirmed by TODD LAI, LELAND ([id number]), tape editor PREET LEON ([id number]) on 08/02/2023 2:04:23 PM Referred By: Confirmed By:LELAND BUTLER MD 08/02/23 1404 Date Leland Butler MD CC: Dr. Sisi Zavala MD; Dr. Turner Bundy MD Signed Normal [facility] Basic Metabolic Profile (BMP )on 07-31-2023 BUN/CRE 11.8 RATIO Normal 10-20 [facility] Comment on above: Order Comment: 'TROP ' Serial specimen #1, #2 or #3: 1 Performed By: #### L 500.2500, L501.4020, L100.0100 #### [facility] [address] [place], [address] CA,Total 10.2 mg/dL High 8.5-10.1 [facility] Comment on above: Order Comment: 'TROP ' Serial specimen #1, #2 or #3: 1 Performed By: #### L 500.2500, L501.4020, L100.0100 #### [facility] [address] [place], [address] Chloride [Moles/Vol] 107 mmol/L Normal 98-107 [facility] Comment on above: Order Comment: 'TROP ' Serial specimen #1, #2 or #3: 1 Performed By: #### L 500.2500, L501.4020, L100.0100 #### [facility] [address] [place], [address] CO2 [Moles/Vol] 23.0 mmol/L Normal 21.0-32.0 [facility] Comment on above: Order Comment: 'TROP ' Serial specimen #1, #2 or #3: 1 Performed By: #### L 500.2500, L501.4020, L100.0100 #### [facility] [address] [place], [address] Creatinine [Mass/Vol] 0.76 mg/dL Normal 0.70-1.30 [facility] Comment on above: Order Comment: 'TROP ' Serial specimen #1, #2 or #3: 1 Result Comment: The validity of the calculated GFR GFRAA in patients over 70 years has not been determined. Clinical correlation is essential. Performed By: #### L 500.2500, L501.4020, L100.0100 #### [facility] [address] [place], [address] ECRCL 200.03 ml/min Normal [facility] Comment on above: Order Comment: 'TROP ' Serial specimen #1, #2 or #3: 1 Performed By: #### L 500.2500, L501.4020, L100.0100 #### [facility] [address] [place], [address] EST GFR - AA 155 mL/min Normal >60 [facility] Comment on above: Order Comment: 'TROP ' Serial specimen #1, #2 or #3: 1 Result Comment: Afri can Montserratian GFR Calc Performed By: #### L 500.2500, L501.4020, L100.0100 #### [facility] [address] [place], [address] GAP 8 Normal 5-15 [facility] Comment on above: Order Comment: 'TROP ' Serial specimen #1, #2 or #3: 1 Performed By: #### L 500.2500, L501.4020, L100.0100 #### [facility] [address] [place], [address] GFR/1.73 sq M.predicted among non-blacks MDRD (S/P/Bld) [Vol rate/Area] 128 mL/min/{1.73_m2} Normal >60 [facility] Comment on above: Order Comment: 'TROP ' Serial specimen #1, #2 or #3: 1 Result Comment: Non- GFR Calc Performed By: #### L 500.2500, L501.4020, L100.0100 #### [facility] [address] [place], [address] Glucose [Mass/Vol] 128 mg/dL High 74-106 [facility] Comment on above: Order Comment: 'TROP ' Serial specimen #1, #2 or #3: 1 Result Comment: Fast ing Glucose result greater than or equal to 126 mg/dL suggests DIABETES MELLITUS per A.D.A. criteria. Performed By: #### L 500.2500, L501.4020, L100.0100 #### [facility] [address] [place], [address] Potassium [Moles/Vol] 3.5 mmol/L Normal 3.5-5.1 [facility] Comment on above: Order Comment: 'TROP ' Serial specimen #1, #2 or #3: 1 Performed By: #### L 500.2500, L501.4020, L100.0100 #### [facility] [address] [place], [address] Sodium [Moles/Vol] 138 mmol/L Normal 136-145 [facility] Comment on above: Order Comment: 'TROP ' Serial specimen #1, #2 or #3: 1 Performed By: #### L 500.2500, L501.4020, L100.0100 #### [facility] [address] [place], [address] Urea nitrogen [Mass/Vol] 9 mg/dL Normal 7-18 [facility] Comment on above: Order Comment: 'TROP ' Serial specimen #1, #2 or #3: 1 Performed By: #### L 500.2500, L501.4020, L100.0100 #### [facility] [address] [place], [address] CBC W/Diff, Automatedon 06-0 2-2023 Absolute Lymph 2.83 X10 3/uL Normal 0.83-4.51 [facility] Comment on above: Performed By: #### L 500.2500, L501.4020, L100.0100 #### [facility] [address] [place], [address] Absolute Neut 5.8 X10 3/uL Normal 2.0-7.7 [facility] Comment on above: Performed By: #### L 500.2500, L501.4020, L100.0100 #### [facility] [address] [place], [address] Basophils/100 WBC (Bld) 0.1 % Normal 0-1 [facility] Comment on above: Performed By: #### L 500.2500, L501.4020, L100.0100 #### [facility] [address] [place], [address] Eosinophils/100 WBC (Bld) 0.0 % Normal 0-5 [facility] Comment on above: Performed By: #### L 500.2500, L501.4020, L100.0100 #### [facility] [address] [place], [address] Erythrocyte distribution width (RBC) [Ratio] 13.4 % Normal 11.6-14.6 [facility] Comment on above: Performed By: #### L 500.2500, L501.4020, L100.0100 #### [facility] [address] [place], [address] Hematocrit (Bld) [Volume fraction] 41.5 % Normal 40-54 [facility] Comment on above: Performed By: #### L 500.2500, L501.4020, L100.0100 #### [facility] [address] [place], [address] Hemoglobin (Bld) [Mass/Vol] 13.0 g/dL Normal 13.0-16.5 [facility] Comment on above: Performed By: #### L 500.2500, L501.4020, L100.0100 #### [facility] [address] [place], [address] IG% 0.300 Normal 0.0-0.9 [facility] Comment on above: Result Comment: IG% - Immature Granulocytes (promyelocytes, myelocytes and metamyelocytes) > 1% indicates that a LEFT SHIFT is Present. Performed By: #### L 500.2500, L501.4020, L100.0100 #### [facility] [address] [place], [address] Lymphocytes/100 WBC (Bld) 30.6 % Normal 19-41 [facility] Comment on above: Performed By: #### L 500.2500, L501.4020, L100.0100 #### [facility] [address] [place], [address] MCH (RBC) [Entitic mass] 26.2 pg Low 27.0-32.0 [facility] Comment on above: Performed By: #### L 500.2500, L501.4020, L100.0100 #### [facility] [address] [place], [address] MCHC (RBC) [Mass/Vol] 31.3 g/dL Low 32-36 [facility] Comment on above: Performed By: #### L 500.2500, L501.4020, L100.0100 #### [facility] [address] [place], [address] MCV (RBC) [Entitic vol] 83.7 fL Normal 80-94 [facility] Comment on above: Performed By: #### L 500.2500, L501.4020, L100.0100 #### [facility] [address] [place], [address] Monocytes/100 WBC (Bld) 6.0 % Normal 0-10 [facility] Comment on above: Performed By: #### L 500.2500, L501.4020, L100.0100 #### [facility] [address] [place], [address] Neutrophils/100 WBC (Bld) 63.0 % Normal 47-70 [facility] Comment on above: Performed By: #### L 500.2500, L501.4020, L100.0100 #### [facility] [address] [place], [address] Nucleated RBC (Bld) [#/Vol] 0 10*3/uL Normal 0-5 [facility] Comment on above: Performed By: #### L 500.2500, L501.4020, L100.0100 #### [facility] [address] [place], [address] Platelet mean volume (Bld) [Entitic vol] 8.9 fL Normal 6.2-12.0 [facility] Comment on above: Performed By: #### L 500.2500, L501.4020, L100.0100 #### [facility] [address] [place], [address] Platelets (Bld) [#/Vol] 349 10*3/uL Normal 150-450 [facility] Comment on above: Performed By: #### L 500.2500, L501.4020, L100.0100 #### [facility] [address] [place], [address] RBC (Bld) [#/Vol] 4.96 10*6/uL Normal 4.6-6.2 [facility] Comment on above: Performed By: #### L 500.2500, L501.4020, L100.0100 #### [facility] [address] [place], [address] RDW SD 40.9 fl Normal 35.1-43.9 [facility] Comment on above: Performed By: #### L 500.2500, L501.4020, L100.0100 #### [facility] [address] [place], [address] WBC (Bld) [#/Vol] 9.2 10*3/uL Normal 4.4-11.0 [facility] Comment on above: Performed By: #### L 500.2500, L501.4020, L100.0100 #### [facility] [address] [place], [address] Chest 1 View (Portable)on Chest 1 View (Portable) [facility] Imaging Services [address] [place] [address] Chest 1 View (Portable) MR#: [id number] Acct: [id number] Name: LEVY TODD Rep #: [id number] : 1995 M 27 From: Colt Rudd PCP: Dr. Turner Bundy MD Status: REG ER Study: Chest 1 View (Portable) Date of Exam: 07/31/23 Exam# [id number] Ordering Dr: Sisi Zavala MD [id number] EXAM: XR CHEST, 1 VIEW CLINICAL INDICATION: chest pain TECHNIQUE: Frontal view of the chest. COMPARISON: 03.26.20 FINDINGS: LUNGS AND PLEURAL SPACES: Unremarkable. No consolidation or edema. No pneumothorax. No effusion. HEART: Unremarkable. Cardiac silhouette not enlarged. MEDIASTINUM: Central airways and mediastinal contour are unremarkable. BONES/JOINTS: Unremarkable. No acute fracture. SOFT TISSUES: Unremarkable. RAD/Chest 1 View (Portable) IMPRESSION: No radiographic evidence of acute cardiopulmonary disease. Electronically Signed: Colt Zambrano MD at 21:02 EDT , CC: Dr. Sisi Zavala MD; Dr. Turner Bundy MD Box Estimator: Signed Normal [facility] Emergency Department Summary on 07-31-2023 Emergency Department Summary [facility] Medical Records Department [address] [place] [address] Emergency Department Summary 07/31/23 MR#: [id number] Acct: [id number] Name: LEVY TODD Rep #: [id number] : 1995 27 From: Sisi Zavala MD PCP: Dr. Turner Bundy MD Status:DEP ER Location: ED HPI History of Present Illness Chief Complaint: Chest Pain Informant: patient Onset/Context/Timing Onset: Days Narrative Narrative: Patient presents secondary to chest and left arm pain. He states he been having intermittent pain for the past several days but it has been constant today. He describes sharp pain to the left upper chest as well as his entire left arm. He denies recent URI symptoms. He denies significant cough. His father reported does have significant heart history at a young age. 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 Home Medications ???Medication ???Instructions ???Recorded ???Last Taken ???Type omeprazole 40 mg capsule,delayed 40 mg PO DAILY 12/24/15 Unknown History release lamotrigine 200 mg tablet 200 mg PO BID 11/19/20 Unknown History paliperidone 6 mg tablet,extended 3 mg PO QHS 06/02/22 Unknown History release 24 hr paliperidone palm (3 month) 819 819 mg IM Q3M 06/02/22 05/31/22 History mg/2.63 mL intramuscular syringe (Invega Trinza) albuterol sulfate 90 mcg/actuation 2 puff inhalation Q6H PRN 04/17/23 Unknown History aerosol inhaler shortness of breath or wheezing bisacodyl 5 mg tablet,delayed 5 mg PO DAILY PRN constipation 04/17/23 Unknown History release (Dulcolax (bisacodyl)) dicyclomine 10 mg capsule 10 mg PO TID 04/17/23 Unknown History docusate sodium 100 mg capsule 100 mg PO DAILY 04/17/23 Unknown History (Colace) lidocaine 5 % topical patch 1 patch transdermal DAILY 04/17/23 Unknown History lithium carbonate 300 mg capsule 300 mg PO QHS 04/17/23 Unknown History sertraline 100 mg tablet 100 mg PO Q24H 04/17/23 Unknown History triamcinolone acetonide 0.1 % 1 applic topical BID PRN muscle 04/17/23 Unknown History topical ointment relaxer urea 40 % topical cream 1 applic topical DAILY 04/17/23 Unknown History naproxen 500 mg tablet (Naprosyn) 500 mg PO BID PRN pain #20 tabs 07/31/23 Unknown Rx prednisone 20 mg tablet 40 mg (2 x 20 mg) PO DAILY #8 tabs 07/31/23 Unknown Rx Allergy/AdvReac Type Severity Reaction Status Date / Time bee venom protein (honey bee) Allergy Anaphylaxis Verified 07/31/23 20:18 carbamazepine (From Tegretol) Allergy Unknown Verified 07/31/23 20:18 divalproex sodium (From Allergy Other Verified 07/31/23 20:18 Depakote) methylphenidate (From Allergy Unknown Verified 07/31/23 20:18 Concerta) methylphenidate HCl (From Allergy Unknown Verified 07/31/23 20:18 Ritalin) phenobarbital Allergy Hives Verified 07/31/23 20:18 Family History Other Asthma Diabetes Hypertension Kidney disease Surgical History Hx of cholecystectomy Hx of tympanostomy tubes H/O hernia repair Social History household members: family housing: house Smoking Status: Never smoker alcohol intake: never ROS ROS ED Constitutional Constitutional ED: Denies chills or fever(s) Eyes Eyes: Denies discharge from eye(s) ENT ENT ED: Denies discharge from eye(s), rhinorrhea or sore throat Cardiovascular Cardiovascular: Reports chest pain; Denies palpitations Respiratory/Chest Respiratory/Chest: Reports dyspnea; Denies cough Gastrointestinal Gastrointestinal: Denies abdominal pain, nausea or vomiting Musculoskeletal Musculoskeletal: Reports extremity pain; Denies back pain Integumentary Denies Abrasions or rash Neurologic Neurologic: Denies headache(s) or weakness Psychiatric Psychiatric: Denies anxiety or depression Allergic/Immunologic Allergic/Immunologic ED: Denies lip swelling or urticaria EXAM Physical Exam Const Vital Signs: 07/31/23 20:18 07/31/23 20:43 07/31/23 20:43 Temperature 97.6 F L Temperature Source Temporal Pulse Rate 112 H Respiratory Rate 18 Respiratory Effort Short of Breath Blood Pressure 128/86 H Blood Pressure Mean 100 Pulse Ox 96 Oxygen Delivery Method Room Air Room Air 07/31/23 21:17 07/31/23 21:57 Temperature Temperature Source Pulse Rate 90 93 Respiratory Rate 21 H 21 H Re (more content not included)... Normal [facility] L501.4020on 07-31-2023 TROPONIN-I HS < 3 Low 3.0-78.0 [facility] Comment on above: Order Comment: 'TROP ' Serial specimen #1, #2 or #3: 1 Result Comment: Plesuhail mckenzie Note: New Test Units and Gender Specific Reference Ranges. For more information see Policy Stat Procedure [place] High Sensitivity Troponin (TNIH) and attachments. Performed By: #### L 500.2500, L501.4020, L100.0100 #### [facility] [address] [place], [address] CBC W Auto Differential pane l (Bld)on 07-14-2023 Basophils (Bld) [#/Vol] NINF C [facility] Basophils/100 WBC (Bld) 0.1 % C [facility] Differential cell count method Nom (Bld) Auto [facility] Eosinophils (Bld) [#/Vol] NINF [facility] Eosinophils/100 WBC (Bld) 0.0 % [facility] Erythrocyte distribution width (RBC) [Ratio] 13.9 % 11.5 - 15.0 % [facility] Hematocrit (Bld) [Volume fraction] 40.5 % 39.0 - 51.0 % [facility] Hemoglobin (Bld) [Mass/Vol] 12.8 g/dL Low 13.0 - 17.0 g/dL [facility] Immature granulocytes (Bld) [#/Vol] 0.04 10*3/uL [facility] Immature granulocytes/100 WBC (Bld) 0.5 % [facility] Interpretation and review of laboratory results Abnormal [facility] Lymphocytes (Bld) [#/Vol] 2.25 10*3/uL [facility] Lymphocytes/100 WBC (Bld) 27.4 % [facility] MCH (RBC) [Entitic mass] 26.7 pg 26.0 - 34.0 pg [facility] MCHC (RBC) [Mass/Vol] 31.6 g/dL 30.5 - 36.0 g/dL [facility] MCV (RBC) [Entitic vol] 84.6 fL 80.0 - 100.0 fL [facility] Monocytes (Bld) [#/Vol] 0.52 10*3/uL [facility] Monocytes/100 WBC (Bld) 6.3 % [facility] Neutrophils (Bld) [#/Vol] 5.39 10*3/uL [facility] Neutrophils/100 WBC (Bld) 65.7 % [facility] [facility] Nucleated RBC (Bld) [#/Vol] [facility] Nucleated RBC/100 WBC (Bld) [Ratio] 0.0 % /100 WBC [facility] Platelet mean volume (Bld) [Entitic vol] 9.1 fL 9.0 - 12.7 fL [facility] Platelets (Bld) [#/Vol] 351 10*3/uL [facility] RBC (Bld) [#/Vol] 4.79 10*6/uL 4.20 - 6.0 0 m/uL [facility] WBC (Bld) [#/Vol] 8.21 10*3/uL [facility] Cobalamin (Vitamin B12) [Mas s/Vol]on 07-14-2023 Interpretation and review of laboratory results Normal [facility] Comprehensive metabolic 2000 panelon 07-14-2023 Albumin [Mass/Vol] 4.3 g/dL 3.9 - 4.9 g/dL [facility] ALP [Catalytic activity/Vol] 87 U/L 38 - 113 U/L [facility] ALT [Catalytic activity/Vol] 24 U/L 10 - 54 U/L [facility] Anion gap [Moles/Vol] 9 mmol/L 9 - 18 mmol/L [facility] AST [Catalytic activity/Vol] 19 U/L 14 - 40 U/L [facility] Bilirubin [Mass/Vol] 0.2 mg/dL 0.2 - 1 .3 mg/dL [facility] Calcium [Mass/Vol] 9.7 mg/dL 8.5 - 10. 2 mg/dL [facility] Chloride [Moles/Vol] 104 mmol/L 97 - 10 5 mmol/L [facility] CO2 [Moles/Vol] 25 mmol/L 22 - 30 mmol/L [facility] Creatinine [Mass/Vol] 0.76 mg/dL 0.73 - 1.22 mg/dL [facility] GFR/1.73 sq M.predicted among non-blacks MDRD (S/P/Bld) [Vol rate/Area] 125 mL/min/{1.73_m2} - PINF [facility] Comment on above: Estimated Glomerular Filtration Rate (eGFR) is calculated using the 2020 CKD-EPI creatinine equation. This equation utilizes serum creatinine, sex, and age as parameters. The creatinine assay has traceable calibration to isotope dilution-mass spectrometry. Refer to KDIGO guidelines for clinical interpretation. In patients with unstable renal function, e.g. those with acute kidney injury, the eGFR may not accurately reflect actual GFR. Glucose [Mass/Vol] 99 mg/dL 74 - 99 mg/dL [facility] Comment on above: The [place] [employer] [place] [employer] (ADA) provides guidance for cutoff values for fasting glucose and random glucose. The ADA defines fasting as no caloric intake for at least 8 hours. Fasting plasma glucose results between 100 to 125 mg/dL indicate increased risk for diabetes (prediabetes). Fasting plasma glucose results greater than or equal to 126 mg/dL meet the criteria for diagnosis of diabetes. In the absence of unequivocal hyperglycemia, results should be confirmed by repeat testing. In a patient with classic symptoms of hyperglycemia or hyperglycemic crisis, random plasma glucose results greater than or equal to 200 mg/dL meet the criteria for diagnosis of diabetes. Reference: Standards of Medical Care in Diabetes 2016, [place] [employer]. Diabetes Care. 2016.39(Suppl 1). Potassium [Moles/Vol] 4.0 mmol/L 3.7 - 5.1 mmol/L [facility] Protein [Mass/Vol] 7.1 g/dL 6.3 - 8.0 g/dL [facility] Sodium [Moles/Vol] 138 mmol/L 136 - 144 mmol/L [facility] Urea nitrogen [Mass/Vol] 10 mg/dL 9 - 24 mg/dL [facility] Iron and Iron binding capaci ty panelon 07-14-2023 Interpretation and review of laboratory results Abnormal [facility] Iron [Mass/Vol] 43 ug/dL 41 - 186 ug/dL [facility] Iron binding capacity [Mass/Vol] 351 ug/dL 232 - 386 ug/dL [facility] Iron/TIBC [Molar ratio] 12.3 % Low 15.0 - 57.0 % [facility] LITHIUMon 07-14-2023 [place] [Moles/Vol] 0.8 mmol/L 0.6 - 1. 2 mmol/L [facility] Comment on above: Reference ranges and high/low indicator flags are provided as general guidelines only. The treating physician must determine appropriate target levels/dosing based on the specific clinical situation. [place]lain [Moles/Vol]on 2023 Interpretation and review of laboratory results Normal [facility] MAGNESIUMon 07-14-2023 Magnesium [Mass/Vol] 2.3 mg/dL 1.7 - 2 .3 mg/dL [facility] No Panel Informationon 07-13 Interpretation and review of laboratory results Normal [facility] VITAMIN B12on 07-14-2023 Cobalamin (Vitamin B12) [Mass/Vol] 551 pg/mL 232 - 1245 pg/mL [facility] Absolute lymphocyte countOrd ered By: Yennifer Will on 04-17-2023 Lymphocytes Auto (Unsp spec) [#/Vol] 1.63 10*3/uL 0.83-4.51 [facility] Automated lymphocyte count a s percentage of total leukocytesOrdered By: Yennifer Will on 04-17-2023 Lymphocytes/100 WBC Auto (Unsp spec) 22.8 % 19-41 [facility] Basophil percentageOrdered B y: Yennifer Will on 04-17-2023 Basophils/100 WBC (Bld) 0.1 % 0-1 [facility] Bilirubin [Mass/Vol] 0.20 mg/dL 0.20-1.00 [facility] Comment on above: For patients on eltr ombopag therapy, use of Dimension [place] TBIL is not recommended. Chloride [Moles/Vol] 110 mmol/L 98-107 [facility] Eosinophils/100 WBC (Bld) 0.0 % 0-5 [facility] Glucose [Mass/Vol] 114 mg/dL 74-106 [facility] Comment on above: Fasting Glucose resu lt from 100 to 125 mg/dL suggests IMPAIRED HOMEOSTASIS per A.D.A. criteria. Hemoglobin (Bld) [Mass/Vol] 12.0 g/dL 13.0-16.5 [facility] Monocytes/100 WBC (Bld) 8.0 % 0-10 [facility] Neutrophils (Bld) [#/Vol] 4.9 10*3/uL 2.0-7.7 [facility] Neutrophils/100 WBC (Bld) 68.8 % 47-70 [facility] Potassium [Moles/Vol] 3.8 mmol/L 3.5-5.1 [facility] Protein [Mass/Vol] 7.0 g/dL 6.4-8.2 [facility] Sodium [Moles/Vol] 139 mmol/L 136-145 [facility] WBC (Bld) [#/Vol] 7.1 10*3/uL 4.4-11.0 [facility] COVID-19 virus antigen assay Ordered By: Yennifer Will on 04-17-2023 SARS-CoV-2 (COVID-19) Ag IA.rapid Ql (Resp) [facility] Determination of erythrocyte mean corpuscular volume (MCV)Ordered By: Yennifer Will on 04-17-2023 MCV (RBC) [Entitic vol] 81.5 fL 80-94 [facility] Erythrocyte distribution wid th ratioOrdered By: Yennifer Will on 04-17-2023 Erythrocyte distribution width (RBC) [Ratio] 14.3 % 11.6-14.6 [facility] Erythrocyte distribution wid th standard deviationOrdered By: Yennifer Will on 04-17-2023 Erythrocyte distribution width (RBC) [Entitic vol] 42.2 fL 35.1-43.9 [facility] Hematocrit Auto (Bld) [Volum e fraction]Ordered By: Yennifer Will on 04-17-2023 Hematocrit (Bld) [Volume fraction] 38.7 % 40-54 [facility] Immature granulocytes/100 WB C Auto (Bld)Ordered By: Yennifer Will on 04-17-2023 Immature granulocytes/100 WBC (Bld) 0.300 % 0.0-0.9 [facility] Comment on above: IG% - Immature Granu locytes (promyelocytes, myelocytes and metamyelocytes) > 1% indicates that a LEFT SHIFT is Present. Laboratory - Chemistry and C hemistry - challengeOrdered By: Yennifer Will on 04-17-2023 Albumin/Globulin [Mass ratio] 0.9 {ratio} 0.9-2.4 [facility] ALP [Catalytic activity/Vol] 73 U/L 45-117 [facility] ALT [Catalytic activity/Vol] 38 U/L 16-61 [facility] CO2 [Moles/Vol] 24.0 mmol/L 21.0-32.0 [facility] Globulin (S) [Mass/Vol] 3.6 g/dL 2.2-4.2 [facility] Urea nitrogen/Creatinine [Mass ratio] 9.3 mg/mg 10-20 [facility] Laboratory - Drug toxicology Ordered By: Yennifer Will on 04-17-2023 Amphetamines Ql (U) Negative <1000 ng/mL [facility] Benzodiazepines Ql (U) Negative < 200 ng/mL [facility] Cannabinoids Screen Ql (U) Negative < 50 ng/mL [facility] Cocaine Ql (U) Negative < 300 ng/mL [facility] Opiates Ql (U) Positive < 300 ng/mL [facility] Laboratory - Hematology and Cell countsOrdered By: Yennifer Will on 04-17-2023 MCH (RBC) [Entitic mass] 25.3 pg 27.0-32.0 [facility] MCHC (RBC) [Mass/Vol] 31.0 g/dL 32-36 [facility] Nucleated RBC/100 WBC (Bld) [Ratio] 0 % 0-5 [facility] Platelet mean volume (Bld) [Entitic vol] 8.9 fL 6.2-12.0 [facility] Platelets (Bld) [#/Vol] 275 10*3/uL 150-450 [facility] No Panel InformationOrdered By: Yennifer Will on 04-17-2023 Estimated Creatinine Clearance Calc 202.89 ml/min [facility] Estimated GFR (MDRD) Amer 157 mL/min >60 [facility] Comment on above: GFR Calc Estimated GFR (MDRD) Non-Af Amer 130 mL/min >60 [facility] Comment on above: Non- GFR Calc Ethyl Alcohol Level < 3.0 mg/dL [facility] Comment on above: The serum:whole bloo d ethanol ratio is approximately 1.14and varies slightly with hematocrit. Medical Alcohol reference interval and critical value innon-tolerant individuals; 50 - 100 Impairment 100 Intoxication 100 - 250 Severe Poisoning 250 - 400 Deep/possible fatal coma Chamberlain Level < 0.20 mmol/L 0.60-1.20 [facility] MDMA (Ecstasy) Screen Negative < 500 ng/mL [facility] Urine Barbiturates Screen Negative < 200 ng/mL [facility] Urine Drug Screen Comment [facility] Comment on above: CONFIRMATORY TESTING FOR ALL POSITIVE URINE DRUG SCREENRESULTS WILL ONLY BE SENT OUT UPON PHYSICIAN ORDER. VISTA Urine Drug Screen methods provide only preliminaryanalytical test results. A more specific alternate chemicalmethod must be used in order to obtain a confirmedanalytical result. Gas chromatography/mass spectrometery(GC/MS) is the preferred confirmatory method. Clinicalconsideration and professional judgement should be appliedto any drug of abuse test result, particularly whenpreliminary positive results are used. URINE TCA TESTING MUST BE ORDERED SEPARATELY. USE TESTMNEMONIC: [facility] Urine Methadone Screen Negative < 300 ng/mL [facility] RBC Auto (Bld) [#/Vol]Ordere d By: Yennifer Will on 04-17-2023 RBC (Bld) [#/Vol] 4.75 10*6/uL 4.6-6.2 [facility] Serum or plasma calcium angel urement (mass/volume)Ordered By: Yennifer Will on 04-17-2023 Calcium [Mass/Vol] 8.8 mg/dL 8.5-10.1 [facility] Serum or plasma creatinine m easurement (mass/volume)Ordered By: Yennifer Will on 04-17-2023 Creatinine [Mass/Vol] 0.75 mg/dL 0.70-1.30 [facility] Comment on above: The validity of the calculated GFR & GFRAA in patients over 70 years has not been determined. Clinical correlation is essential. Serum or plasma urea nitroge n measurement (mass/volume)Ordered By: Yennifer Will on 04-17-2023 Urea nitrogen [Mass/Vol] 7 mg/dL 7-18 [facility] Thin prep Papanicolaou smear with manual screeningOrdered By: Yennifer Will on 04-17-2023 Thin prep Papanicolaou smear with manual screening 3.4 g/dL 3.2-5.0 [facility] Thin prep Papanicolaou smear with manual screening 24 U/L 15-37 [facility] Thin prep Papanicolaou smear with manual screening 5 5-15 [facility] Urine phencyclidine (PCP) de tectionOrdered By: Yennifer Will on 04-17-2023 Phencyclidine Ql (U) Negative < 25 ng/mL [facility] XR Chest PA and Lateralon IMPRESSION: No acute radiographic abnormality. Box Estimator: PSCB Transcribe Date/Time: Mar 22 2023 3:39P Dictated by : RAIN RG MD This examination was interpreted and the report reviewed and electronically signed by: RAIN RG MD on Mar 22 2023 3:40PM [facility] DIVISION OF RADIOLOGY * * *Final Report* * * DATE OF EXAM: Mar 22 2023 3:28PM WOX 5291 - XR CHEST 2V FRONTAL/LAT / PROCEDURE REASON: Bronchitis * * * * Physician Interpretation * * * * EXAMINATION: CHEST RADIOGRAPH (2 VIEW FRONTAL & LATERAL) CLINICAL HISTORY: Bronchitis MQ: XC2_6 EXAM DATE/TIME: 03/22/2023 3:28 PM COMPARISON: Chest x-ray dated September 03, 2022 RESULT: Lines, tubes, and devices: None. Lungs and pleura: No consolidation. No lung mass. No pleural effusion. No pneumothorax. Cardiomediastinal silhouette: Normal cardiomediastinal silhouette. Bones and soft tissues: No acute abnormality. DIVISION OF RADIOLOGY Provider, Darleen [facility] - 03/22/2023 * * *Final Report* * * DATE OF EXAM: Mar 22 2023 3:28PM WOX 5291 - XR CHEST 2V FRONTAL/LAT / PROCEDURE REASON: Bronchitis * * * * Physician Interpretation * * * * EXAMINATION: CHEST RADIOGRAPH (2 VIEW FRONTAL & LATERAL) CLINICAL HISTORY: Bronchitis MQ: XC2_6 EXAM DATE/TIME: 03/22/2023 3:28 PM COMPARISON: Chest x-ray dated September 03, 2022 RESULT: Lines, tubes, and devices: None. Lungs and pleura: No consolidation. No lung mass. No pleural effusion. No pneumothorax. Cardiomediastinal silhouette: Normal cardiomediastinal silhouette. Bones and soft tissues: No acute abnormality. IMPRESSION IMPRESSION: No acute radiographic abnormality. Box Estimator: KAUSHAL Transcribe Date/Time: Mar 22 2023 3:39P Dictated by : RAIN RG MD This examination was interpreted and the report reviewed and electronically signed by: RAIN RG MD on Mar 22 2023 3:40PM EST [facility] Radiology Study observation (narrative) [facility] XR Chest PA and LateralOrder ed By: Ccf Provider on 03-22-2023 [facility] No Panel Informationon 12-17 [facility] COVID NAAT, UPPER RESPIRATOR Y, ROUTINEon 12-07-2022 SARS-CoV-2 (COVID-19) RNA RELL+probe Ql (Resp) Not detected See comment [facility] Basophil percentageOrdered B y: Dee Craig on 11-25-2022 Bilirubin [Mass/Vol] 0.20 mg/dL 0.20-1.00 [facility] Comment on above: For patients on eltr ombopag therapy, use of Dimension [place] TBIL is not recommended. Chloride [Moles/Vol] 111 mmol/L 98-107 [facility] Cholesterol [Mass/Vol] 127 mg/dL <200 [facility] Comment on above: <200 mg/dL Desirable 200-240 mg/dL Borderline >240 mg/dL High Risk Glucose [Mass/Vol] 97 mg/dL 74-106 [facility] Potassium [Moles/Vol] 4.1 mmol/L 3.5-5.1 [facility] Protein [Mass/Vol] 7.2 g/dL 6.4-8.2 [facility] Sodium [Moles/Vol] 141 mmol/L 136-145 [facility] Triglyceride [Mass/Vol] 68 mg/dL <199 [facility] Comment on above: The drugs N-Acetylcy steine and Metamizole may falsely depress this assay.Serum Triglycerides Reference Interval Normal <150 mg/dL Borderline high 150 - 199 mg/dL High 200 - 499 mg/dL Very High > or = 500 mg/dL Laboratory - Chemistry and C hemistry - challengeOrdered By: Dee Craig on 11-25-2022 ALP [Catalytic activity/Vol] 81 U/L 45-117 [facility] ALT [Catalytic activity/Vol] 25 U/L 16-61 [facility] CO2 [Moles/Vol] 24.0 mmol/L 21.0-32.0 [facility] Globulin (S) [Mass/Vol] 3.6 g/dL 2.2-4.2 [facility] Urea nitrogen/Creatinine [Mass ratio] 14.3 mg/mg 10-20 [facility] No Panel InformationOrdered By: Dee Craig on 11-25-2022 Estimated GFR (MDRD) Amer 172 mL/min >60 [facility] Comment on above: GFR Calc Estimated GFR (MDRD) Non-Af Amer 142 mL/min >60 [facility] Comment on above: Non- GFR Calc Chamberlain Level < 0.20 mmol/L 0.60-1.20 [facility] Thyroid Stimulating Hormone (TSH) 0.73 uIU/mL 0.358-3.74 [facility] Serum or plasma albumin angel urement (mass/volume)Ordered By: Dee Craig on 11-25-2022 Albumin [Mass/Vol] 3.6 g/dL 3.2-5.0 [facility] Serum or plasma albumin/glob ulin mass ratioOrdered By: Dee Craig on 11-25-2022 Albumin/Globulin [Mass ratio] 1.0 {ratio} 0.9-2.4 [facility] Serum or plasma calcium angel urement (mass/volume)Ordered By: Dee Craig on 11-25-2022 Calcium [Mass/Vol] 8.8 mg/dL 8.5-10.1 [facility] Serum or plasma cholesterol in HDL measurement (mass/volume)Ordered By: Dee Craig on 11-25-2022 Cholesterol in HDL [Mass/Vol] 42 mg/dL >40 [facility] Comment on above: The drugs N-Acetylcy steine and Metamizole may falsely depress this assay. Reference Range HDL <40 mg/dL Low HDL Cholesterol HDL >or= 60 mg/dL High HDL Cholesterol Serum or plasma cholesterol in VLDL measurement (mass/volume)Ordered By: Dee Craig on 11-25-2022 Cholesterol in VLDL [Mass/Vol] 14 mg/dL 5-40 [facility] Serum or plasma creatinine m easurement (mass/volume)Ordered By: Dee Craig on 11-25-2022 Creatinine [Mass/Vol] 0.70 mg/dL 0.70-1.30 [facility] Comment on above: The validity of the calculated GFR & GFRAA in patients over 70 years has not been determined. Clinical correlation is essential. Serum or plasma low density lipoprotein (LDL) cholesterol measurement (mass/volume)Ordered By: Dee Craig on 11-25-2022 Cholesterol in LDL [Mass/Vol] 71 mg/dL 0-130 [facility] Serum or plasma urea nitroge n measurement (mass/volume)Ordered By: Dee Craig on 11-25-2022 Urea nitrogen [Mass/Vol] 10 mg/dL 7-18 [facility] Thin prep Papanicolaou smear with manual screeningOrdered By: Dee Craig on 11-25-2022 Thin prep Papanicolaou smear with manual screening 9 U/L 15-37 [facility] Thin prep Papanicolaou smear with manual screening 6 5-15 [facility] No Panel Informationon 11-03 [facility] XR Chest PA and Lateralon IMPRESSION: Nonspecific bibasilar parenchymal changes as described above. Box Estimator: KAUSHAL Transcribe Date/Time: Sep 04 2022 4:49A Dictated by : CORNELIUS WESTON MD This examination was interpreted and the report reviewed and electronically signed by: CORNELIUS WESTON MD on Sep 04 2022 4:49AM EST DIVISION OF RADIOLOGY * * *Final Report* * * DATE OF EXAM: Sep 03 2022 4:48PM WOX 5291 - XR CHEST 2V FRONTAL/LAT / PROCEDURE REASON: multiple diagnoses * * * * Physician Interpretation * * * * EXAMINATION: CHEST RADIOGRAPH (2 VIEW FRONTAL & LATERAL) CLINICAL HISTORY: Bronchitis Mild intermittent asthma without complication MQ: XC2_6 EXAM DATE/TIME: 09/03/2022 4:48 PM COMPARISON: 01/31/2019. RESULT: Lines, tubes, and devices: None. Lungs and pleura: There is poor inflation of the lungs with crowded lung markings in both lung bases. Mild bibasilar changes of bronchitis cannot be excluded. No consolidation. No lung mass. No pleural effusion. No pneumothorax. Cardiomediastinal silhouette: Normal cardiomediastinal silhouette. Bones and soft tissues: Unremarkable. DIVISION OF RADIOLOGY Provider, [facility] - 09/04/2022 * * *Final Report* * * DATE OF EXAM: Sep 03 2022 4:48PM WOX 5291 - XR CHEST 2V FRONTAL/LAT / PROCEDURE REASON: multiple diagnoses * * * * Physician Interpretation * * * * EXAMINATION: CHEST RADIOGRAPH (2 VIEW FRONTAL & LATERAL) CLINICAL HISTORY: Bronchitis Mild intermittent asthma without complication MQ: XC2_6 EXAM DATE/TIME: 09/03/2022 4:48 PM COMPARISON: 01/31/2019. RESULT: Lines, tubes, and devices: None. Lungs and pleura: There is poor inflation of the lungs with crowded lung markings in both lung bases. Mild bibasilar changes of bronchitis cannot be excluded. No consolidation. No lung mass. No pleural effusion. No pneumothorax. Cardiomediastinal silhouette: Normal cardiomediastinal silhouette. Bones and soft tissues: Unremarkable. IMPRESSION IMPRESSION: Nonspecific bibasilar parenchymal changes as described above. Box Estimator: PSCB Transcribe Date/Time: Sep 04 2022 4:49A Dictated by : CORNELIUS WESTON MD This examination was interpreted and the report reviewed and electronically signed by: CORNELIUS WESTON MD on Sep 04 2022 4:49AM [facility] XR Chest PA and LateralOrder ed By: Ccf Provider on 09-04-2022 [facility] XR CHEST 2V FRONTAL/[facility] Chest PA and Lateralon Radiology Study observation (narrative) [facility] STREP A MOLECULAR (POC)on Procedural Control [facility] Strep A (POCT) Negative Negative [facility] XR ABDOMEN 1V SUPINEon 07-02 [facility] XR Abdomen Supine and Uprigh ton 07-02-2022 IMPRESSION: No acute findings. Previously noted dilated small bowel is no longer seen. Box Estimator: KAUSHAL Transcribe Date/Time: Jul 02 2022 3:40P Dictated by : JAMSHID HUERTA MD This examination was interpreted and the report reviewed and electronically signed by: JAMSHID HUERTA MD on Jul 02 2022 3:42PM [facility] DIVISION OF RADIOLOGY * * *Final Report* * * DATE OF EXAM: Jul 02 2022 3:29PM WOX 5289 - XR ABDOMEN 1V SUPINE / PROCEDURE REASON: Abdominal pain, unspecified abdominal location * * * * Physician Interpretation * * * * EXAM: ABDOMINAL X-RAY (KUB) CLINICAL HISTORY: Abdominal pain TECHNIQUE: AP supine, 4 images COMPARISON: 06/29/2022 RESULT: Lines/tubes/devices: None visualized. Abdomen: No dilated bowel or excess accumulation of fecal material. No pathologic calcifications. Partially included lung bases are clear. Bones: Unremarkable. DIVISION OF RADIOLOGY Provider, [facility]ck[facility] - 07/02/2022 * * *Final Report* * * DATE OF EXAM: Jul 02 2022 3:29PM WOX 5289 - XR ABDOMEN 1V SUPINE / PROCEDURE REASON: Abdominal pain, unspecified abdominal location * * * * Physician Interpretation * * * * EXAM: ABDOMINAL X-RAY (KUB) CLINICAL HISTORY: Abdominal pain TECHNIQUE: AP supine, 4 images COMPARISON: 06/29/2022 RESULT: Lines/tubes/devices: None visualized. Abdomen: No dilated bowel or excess accumulation of fecal material. No pathologic calcifications. Partially included lung bases are clear. Bones: Unremarkable. IMPRESSION IMPRESSION: No acute findings. Previously noted dilated small bowel is no longer seen. Box Estimator: TV Compass Transcribe Date/Time: Jul 02 2022 3:40P Dictated by : JAMSHID HUERTA MD This examination was interpreted and the report reviewed and electronically signed by: JAMSHID HUERTA MD on Jul 02 2022 3:42PM EST [facility] Radiology Study observation (narrative) [facility] XR Abdomen Supine and Uprigh tOrdered By: Ccf Provider on 07-02-2022 [facility] XR Abdomen Supine and Uprigh ton 07-01-2022 IMPRESSION: Borderli ne distended small bowel loops. Box Estimator: KAUSHAL Transcribe Date/Time: Jul 01 2022 4:30P Dictated by : JACLYN TURK MD This examination was interpreted and the report reviewed and electronically signed by: JACLYN TURK MD on Jul 01 2022 4:31PM EST DIVISION OF RADIOLOGY * * *Final Report* * * DATE OF EXAM: Jun 29 2022 5:10PM WOX 5289 - XR ABDOMEN 1V SUPINE / PROCEDURE REASON: multiple diagnoses * * * * Physician Interpretation * * * * EXAM TITLE: XR ABDOMEN 1V SUPINE EXAM DATE/TIME: 06/29/2022 5:10 PM COMPARISON: None. CLINICAL INDICATION/HISTORY: Epigastric pain. TECHNIQUE: AP views of the abdomen are presented. FINDINGS: No abnormally dilated large bowel loops identified. Borderline distended small bowel loops seen in the left lower quadrant abdomen. There are no abnormal calcifications. The bony structures appear intact. DIVISION OF RADIOLOGY Provider, [facility] - 07/01/2022 * * *Final Report* * * DATE OF EXAM: Jun 29 2022 5:10PM WOX 5289 - XR ABDOMEN 1V SUPINE / PROCEDURE REASON: multiple diagnoses * * * * Physician Interpretation * * * * EXAM TITLE: XR ABDOMEN 1V SUPINE EXAM DATE/TIME: 06/29/2022 5:10 PM COMPARISON: None. CLINICAL INDICATION/HISTORY: Epigastric pain. TECHNIQUE: AP views of the abdomen are presented. FINDINGS: No abnormally dilated large bowel loops identified. Borderline distended small bowel loops seen in the left lower quadrant abdomen. There are no abnormal calcifications. The bony structures appear intact. IMPRESSION IMPRESSION: Borderline distended small bowel loops. Box Estimator: PSCB Transcribe Date/Time: Jul 01 2022 4:30P Dictated by : JACLYN TURK MD This examination was interpreted and the report reviewed and electronically signed by: JACLYN TURK MD on Jul 01 2022 4:31PM EST [facility] XR Abdomen Supine and Uprigh tOrdered By: Ccf Provider on 07-01-2022 [facility] CBC W Auto Differential pane l (Bld)on 06-30-2022 Basophils (Bld) [#/Vol] <0.11 k/uL C [facility] Basophils/100 WBC (Bld) 0.1 % C [facility] Differential cell count method Nom (Bld) Auto [facility] Eosinophils (Bld) [#/Vol] <0.46 k/uL [facility] Eosinophils/100 WBC (Bld) 0.0 % [facility] Erythrocyte distribution width (RBC) [Ratio] 14.5 % 11.5 - 15.0 % [facility] Hematocrit (Bld) [Volume fraction] 41.2 % 39.0 - 51.0 % [facility] Hemoglobin (Bld) [Mass/Vol] 13.1 g/dL 13.0 - 17.0 g/dL [facility] Immature granulocytes (Bld) [#/Vol] <0.10 k/uL [facility] Immature granulocytes/100 WBC (Bld) 0.3 % [facility] Lymphocytes (Bld) [#/Vol] 2.72 10*3/uL 1.00 - 4.00 k/uL [facility] Lymphocytes/100 WBC (Bld) 36.5 % [facility] MCH (RBC) [Entitic mass] 25.7 pg Low 26.0 - 34.0 pg [facility] MCHC (RBC) [Mass/Vol] 31.8 g/dL 30.5 - 36.0 g/dL [facility] MCV (RBC) [Entitic vol] 80.8 fL 80.0 - 100.0 fL [facility] Monocytes (Bld) [#/Vol] 0.54 10*3/uL <0.87 k/uL [facility] Monocytes/100 WBC (Bld) 7.2 % [facility] Neutrophils (Bld) [#/Vol] 4.17 10*3/uL 1.45 - 7.50 k/uL [facility] Neutrophils/100 WBC (Bld) 55.9 % [facility] Nucleated RBC (Bld) [#/Vol] <0.01 k/uL [facility] Nucleated RBC/100 WBC (Bld) [Ratio] 0.0 /100 WBC [facility] Platelet mean volume (Bld) [Entitic vol] 9.2 fL 9.0 - 12.7 fL [facility] Platelets (Bld) [#/Vol] 335 10*3/uL 150 - 400 k/uL [facility] RBC (Bld) [#/Vol] 5.10 10*6/uL 4.20 - 6.0 0 m/uL [facility] WBC (Bld) [#/Vol] 7.46 10*3/uL 3.70 - 11. 00 k/uL [facility] Urinalysis complete panel (U )on 06-30-2022 Bilirubin Ql (U) Negative Negative [facility] Clarity (Unsp spec) Clear Clear [facility] Color (U) Yellow Yellow [facility] Epithelial cells LM.HPF (Urine sed) [#/Area] Few [facility] Glucose Test strip (U) [Mass/Vol] Negative Trace, Negative [facility] Hemoglobin Ql (U) Negative Negative, Trace [facility] Ketones Ql (U) Negative Trace, Negative [facility] Leukocyte esterase Test strip Ql (U) 25 Sandra/uL Negative, 25 Sandra/uL [facility] Nitrite Ql (U) Negative Negative [facility] pH (U) 6.5 [pH] 5.0 - 8.0 [facility] Protein (U) [Mass/Vol] Negative Trace , Negative [facility] RBC LM.HPF (Urine sed) [#/Area] 0-3 /HPF 0-3 /HPF [facility] Specific gravity (U) [Rel density] 1.010 1.005 - 1.030 [facility] Urobilinogen Ql (U) Negative Negative [facility] WBC LM.HPF (Urine sed) [#/Area] 0-5 /HPF 0-5 /HPF [facility] XR Abdomen Supine and Uprigh ton 06-29-2022 Radiology Study observation (narrative) [facility] Absolute lymphocyte countOrd ered By: ED PROVIDER on 06-02-2022 Lymphocytes Auto (Unsp spec) [#/Vol] 2.81 10*3/uL 0.83-4.51 [facility] Basophil percentageOrdered B y: ED PROVIDER on 06-02-2022 Basophils/100 WBC (Bld) 0.1 % 0-1 [facility] Chloride [Moles/Vol] 105 mmol/L 98-107 [facility] Eosinophils/100 WBC (Bld) 0.0 % 0-5 [facility] Glucose [Mass/Vol] 89 mg/dL 74-106 [facility] Neutrophils (Bld) [#/Vol] 5.4 10*3/uL 2.0-7.7 [facility] Neutrophils/100 WBC (Bld) 60.6 % 47-70 [facility] Potassium [Moles/Vol] 3.8 mmol/L 3.5-5.1 [facility] Sodium [Moles/Vol] 137 mmol/L 136-145 [facility] WBC (Bld) [#/Vol] 8.9 10*3/uL 4.4-11.0 [facility] Basophil percentage 0-5 SEEN /hpf 0-5 [facility] Bilirubin Test strip Ql (U)O rdered By: ED PROVIDER on 06-02-2022 Bilirubin Ql (U) Negative Negative [facility] Blood erythrocytes count (nu mber/volume)Ordered By: ED PROVIDER on 06-02-2022 RBC (Bld) [#/Vol] 4.89 10*6/uL 4.6-6.2 [facility] Blood hemoglobin measurement (mass/volume)Ordered By: ED PROVIDER on 06-02-2022 Hemoglobin (Bld) [Mass/Vol] 12.4 g/dL 13.0-16.5 [facility] Blood lymphocytes/100 leukoc ytesOrdered By: ED PROVIDER on 06-02-2022 Lymphocytes/100 WBC (Bld) 31.5 % 19-41 [facility] Blood monocytes/100 leukocyt esOrdered By: ED PROVIDER on 06-02-2022 Monocytes/100 WBC (Bld) 7.6 % 0-10 [facility] Blood platelet mean volumeOr dered By: ED PROVIDER on 06-02-2022 Platelet mean volume (Bld) [Entitic vol] 8.8 fL 6.2-12.0 [facility] COVID-19 virus antigen assay Ordered By: ED PROVIDER on 06-02-2022 SARS-CoV-2 (COVID-19) Ag IA.rapid Ql (Resp) [facility] Determination of erythrocyte mean corpuscular volume (MCV)Ordered By: ED PROVIDER on 06-02-2022 MCV (RBC) [Entitic vol] 78.3 fL 80-94 [facility] Hematocrit Auto (Bld) [Volum e fraction]Ordered By: ED PROVIDER on 06-02-2022 Hematocrit (Bld) [Volume fraction] 38.3 % 40-54 [facility] Ketones Test strip Ql (U)Ord ered By: ED PROVIDER on 06-02-2022 Ketones Ql (U) 5 mg/dl Negative [facility] Laboratory - Chemistry and C hemistry - challengeOrdered By: ED PROVIDER on 06-02-2022 CO2 [Moles/Vol] 25.0 mmol/L 21.0-32.0 [facility] Urea nitrogen/Creatinine [Mass ratio] 11.7 mg/mg 10-20 [facility] Laboratory - Drug toxicology Ordered By: ED PROVIDER on 06-02-2022 Amphetamines Ql (U) Negative <1000 ng/mL [facility] Benzodiazepines Ql (U) Negative < 200 ng/mL [facility] Cannabinoids Screen Ql (U) Negative < 50 ng/mL [facility] Cocaine Ql (U) Negative < 300 ng/mL [facility] Opiates Ql (U) Negative < 300 ng/mL [facility] Laboratory - Hematology and Cell countsOrdered By: ED PROVIDER on 06-02-2022 Erythrocyte distribution width (RBC) [Entitic vol] 41.1 fL 35.1-43.9 [facility] Erythrocyte distribution width (RBC) [Ratio] 14.6 % 11.6-14.6 [facility] Immature granulocytes/100 WBC (Bld) 0.200 % 0.0-0.9 [facility] Comment on above: IG% - Immature Granu locytes (promyelocytes, myelocytes and metamyelocytes) > 1% indicates that a LEFT SHIFT is Present. MCH (RBC) [Entitic mass] 25.4 pg 27.0-32.0 [facility] Nucleated RBC/100 WBC (Bld) [Ratio] 0 % 0-5 [facility] MCHC Auto (RBC) [Mass/Vol]Or dered By: ED PROVIDER on 06-02-2022 MCHC (RBC) [Mass/Vol] 32.4 g/dL 32-36 [facility] Mucus LM Ql (Urine sed)Order ed By: ED PROVIDER on 06-02-2022 Mucus Ql (Urine sed) 0 SEEN /hpf [facility] Nitrite Test strip Ql (U)Ord ered By: ED PROVIDER on 06-02-2022 Nitrite Ql (U) Negative Negative [facility] No Panel InformationOrdered By: ED PROVIDER on 06-02-2022 Estimated Creatinine Clearance Calc 156.77 ml/min [facility] Estimated GFR (MDRD) Amer 154 mL/min >60 [facility] Comment on above: GFR Calc Estimated GFR (MDRD) Non-Af Amer 127 mL/min >60 [facility] Comment on above: Non- GFR Calc Ethyl Alcohol Level < 3.0 mg/dL [facility] Comment on above: The serum:whole bloo d ethanol ratio is approximately 1.14and varies slightly with hematocrit. Medical Alcohol reference interval and critical value innon-tolerant individuals; 50 - 100 Impairment 100 Intoxication 100 - 250 Severe Poisoning 250 - 400 Deep/possible fatal coma MDMA (Ecstasy) Screen Negative < 500 ng/mL [facility] Urine Barbiturates Screen Negative < 200 ng/mL [facility] Urine Drug Screen Comment [facility] Comment on above: CONFIRMATORY TESTING FOR ALL POSITIVE URINE DRUG SCREENRESULTS WILL ONLY BE SENT OUT UPON PHYSICIAN ORDER. VISTA Urine Drug Screen methods provide only preliminaryanalytical test results. A more specific alternate chemicalmethod must be used in order to obtain a confirmedanalytical result. Gas chromatography/mass spectrometery(GC/MS) is the preferred confirmatory method. Clinicalconsideration and professional judgement should be appliedto any drug of abuse test result, particularly whenpreliminary positive results are used. URINE TCA TESTING MUST BE ORDERED SEPARATELY. USE TESTMNEMONIC: [facility] Urine Methadone Screen Negative < 300 ng/mL [facility] Platelets bldOrdered By: ED PROVIDER on 06-02-2022 Platelets (Bld) [#/Vol] 294 10*3/uL 150-450 [facility] Protein Test strip Ql (U)Ord ered By: ED PROVIDER on 06-02-2022 Protein Ql (U) 30 mg/dl Negative [facility] Serum or plasma calcium angel urement (mass/volume)Ordered By: ED PROVIDER on 06-02-2022 Calcium [Mass/Vol] 9.0 mg/dL 8.5-10.1 [facility] Serum or plasma creatinine m easurement (mass/volume)Ordered By: ED PROVIDER on 06-02-2022 Creatinine [Mass/Vol] 0.77 mg/dL 0.70-1.30 [facility] Comment on above: The validity of the calculated GFR & GFRAA in patients over 70 years has not been determined. Clinical correlation is essential. Serum or plasma urea nitroge n measurement (mass/volume)Ordered By: ED PROVIDER on 06-02-2022 Urea nitrogen [Mass/Vol] 9 mg/dL 7-18 [facility] Squamous epithelial cells de tection in urine sediment by light microscopyOrdered By: ED PROVIDER on 06-02-2022 Epithelial cells.squamous LM Ql (Urine sed) 0-5 SEEN /hpf 0-5 [facility] Thin prep Papanicolaou smear with manual screeningOrdered By: ED PROVIDER on 06-02-2022 Thin prep Papanicolaou smear with manual screening 7 5-15 [facility] Urine blood detectionOrdered By: ED PROVIDER on 06-02-2022 RBC Ql (U) Negative Negative [facility] RBC Ql (U) 0 SEEN /hpf 0-5 [facility] Urine clarityOrdered By: ED PROVIDER on 06-02-2022 Clarity (U) Clear Clear [facility] Urine color determinationOrd ered By: ED PROVIDER on 06-02-2022 Color (U) Yellow Yellow [facility] Urine glucose detectionOrder ed By: ED PROVIDER on 06-02-2022 Glucose Ql (U) Normal mg/dl Normal [facility] Urine leukocyte esterase det ection by dipstickOrdered By: ED PROVIDER on 06-02-2022 Leukocyte esterase Test strip Ql (U) Negative Negative [facility] Urine pHOrdered By: ED PROVI MARYLOU on 06-02-2022 pH (U) 6.5 [pH] 5.0 - 8.0 [facility] Urine phencyclidine (PCP) de tectionOrdered By: ED PROVIDER on 06-02-2022 Phencyclidine Ql (U) Negative < 25 ng/mL [facility] Urine sediment bacteria coun t by microscopy (number/high power field)Ordered By: ED PROVIDER on 06-02-2022 Bacteria LM.HPF (Urine sed) [#/Area] RARE /hpf None Seen [facility] Urine specific gravity measu rementOrdered By: ED PROVIDER on 06-02-2022 Specific gravity (U) [Rel density] 1.020 1.002-1.030 [facility] Urobilinogen Auto test strip Ql (U)Ordered By: ED PROVIDER on 06-02-2022 Urobilinogen Ql (U) 1 mg/dl Normal [facility] Absolute lymphocyte countOrd ered By: Dr. Mondragon on 04-22-2022 Lymphocytes Auto (Unsp spec) [#/Vol] 1.90 10*3/uL 0.83-4.51 [facility] Basophil percentageOrdered B y: Dr. Mondragon on 04-22-2022 Basophils/100 WBC (Bld) 0.1 % 0-1 [facility] Chloride [Moles/Vol] 106 mmol/L 98-107 [facility] Eosinophils/100 WBC (Bld) 0.0 % 0-5 [facility] Glucose [Mass/Vol] 92 mg/dL 74-106 [facility] Neutrophils (Bld) [#/Vol] 4.7 10*3/uL 2.0-7.7 [facility] Neutrophils/100 WBC (Bld) 64.3 % 47-70 [facility] Potassium [Moles/Vol] 3.8 mmol/L 3.5-5.1 [facility] Sodium [Moles/Vol] 137 mmol/L 136-145 [facility] WBC (Bld) [#/Vol] 7.3 10*3/uL 4.4-11.0 [facility] Blood erythrocytes count (nu mber/volume)Ordered By: Dr. Mondragon on 04-22-2022 RBC (Bld) [#/Vol] 5.22 10*6/uL 4.6-6.2 [facility] Blood hemoglobin measurement (mass/volume)Ordered By: Dr. Mondragon on 04-22-2022 Hemoglobin (Bld) [Mass/Vol] 13.2 g/dL 13.0-16.5 [facility] Blood lymphocytes/100 leukoc ytesOrdered By: Dr. Mondragon on 04-22-2022 Lymphocytes/100 WBC (Bld) 26.2 % 19-41 [facility] Blood monocytes/100 leukocyt esOrdered By: Dr. Mondragon on 04-22-2022 Monocytes/100 WBC (Bld) 9.1 % 0-10 [facility] Blood platelet mean volumeOr dered By: Dr. Mondragon on 04-22-2022 Platelet mean volume (Bld) [Entitic vol] 8.8 fL 6.2-12.0 [facility] Determination of erythrocyte mean corpuscular volume (MCV)Ordered By: Dr. Mondragon on 04-22-2022 MCV (RBC) [Entitic vol] 79.3 fL 80-94 [facility] Hematocrit Auto (Bld) [Volum e fraction]Ordered By: Dr. Mondragon on 04-22-2022 Hematocrit (Bld) [Volume fraction] 41.4 % 40-54 [facility] Influenza virus A and B and SARS-CoV-2 (COVID-19) Ag panel - Upper respiratory specimOrdered By: Dr. Mondragon on 04-22-2022 SARS-CoV-2 (COVID-19) RNA RELL+probe Ql (Resp) [facility] Laboratory - Chemistry and C hemistry - challengeOrdered By: Dr. Mondragon on 04-22-2022 CO2 [Moles/Vol] 24.0 mmol/L 21.0-32.0 [facility] Urea nitrogen/Creatinine [Mass ratio] 10.8 mg/mg 10-20 [facility] Laboratory - Drug toxicology Ordered By: Dr. Mondragon on 04-22-2022 Amphetamines Ql (U) Negative <1000 ng/mL [facility] Benzodiazepines Ql (U) Negative < 200 ng/mL [facility] Cannabinoids Screen Ql (U) Negative < 50 ng/mL [facility] Cocaine Ql (U) Negative < 300 ng/mL [facility] Opiates Ql (U) Negative < 300 ng/mL [facility] Laboratory - Hematology and Cell countsOrdered By: Dr. Mondragon on 04-22-2022 Erythrocyte distribution width (RBC) [Entitic vol] 41.1 fL 35.1-43.9 [facility] Erythrocyte distribution width (RBC) [Ratio] 14.4 % 11.6-14.6 [facility] Immature granulocytes/100 WBC (Bld) 0.300 % 0.0-0.9 [facility] Comment on above: IG% - Immature Granu locytes (promyelocytes, myelocytes and metamyelocytes) > 1% indicates that a LEFT SHIFT is Present. MCH (RBC) [Entitic mass] 25.3 pg 27.0-32.0 [facility] Nucleated RBC/100 WBC (Bld) [Ratio] 0 % 0-5 [facility] MCHC Auto (RBC) [Mass/Vol]Or dered By: Dr. Mondragon on 04-22-2022 MCHC (RBC) [Mass/Vol] 31.9 g/dL 32-36 [facility] No Panel InformationOrdered By: Dr. Mondragon on 04-22-2022 Estimated Creatinine Clearance Calc 145.44 ml/min [facility] Estimated GFR (MDRD) Amer 141 mL/min >60 [facility] Comment on above: GFR Calc Estimated GFR (MDRD) Non-Af Amer 116 mL/min >60 [facility] Comment on above: Non- GFR Calc Ethyl Alcohol Level < 3.0 mg/dL [facility] Comment on above: The serum:whole bloo d ethanol ratio is approximately 1.14and varies slightly with hematocrit. Medical Alcohol reference interval and critical value innon-tolerant individuals; 50 - 100 Impairment 100 Intoxication 100 - 250 Severe Poisoning 250 - 400 Deep/possible fatal coma MDMA (Ecstasy) Screen Negative < 500 ng/mL [facility] Urine Barbiturates Screen Negative < 200 ng/mL [facility] Urine Drug Screen Comment [facility] Comment on above: CONFIRMATORY TESTING FOR ALL POSITIVE URINE DRUG SCREENRESULTS WILL ONLY BE SENT OUT UPON PHYSICIAN ORDER. [facility]IST[facility] Urine Drug Screen methods provide only preliminaryanalytical test results. A more specific alternate chemicalmethod must be used in order to obtain a confirmedanalytical result. Gas chromatography/mass spectrometery(GC/MS) is the preferred confirmatory method. Clinicalconsideration and professional judgement should be appliedto any drug of abuse test result, particularly whenpreliminary positive results are used. URINE TCA TESTING MUST BE ORDERED SEPARATELY. USE TESTMNEMONIC: [facility] Urine Methadone Screen Negative < 300 ng/mL [facility] Platelets bldOrdered By: Dr. Mondragon on 04-22-2022 Platelets (Bld) [#/Vol] 353 10*3/uL 150-450 [facility] Serum or plasma calcium angel urement (mass/volume)Ordered By: Dr. Mondragon on 04-22-2022 Calcium [Mass/Vol] 9.5 mg/dL 8.5-10.1 [facility] Serum or plasma creatinine m easurement (mass/volume)Ordered By: Dr. Mondargon on 04-22-2022 Creatinine [Mass/Vol] 0.83 mg/dL 0.70-1.30 [facility] Comment on above: The validity of the calculated GFR & GFRAA in patients over 70 years has not been determined. Clinical correlation is essential. Serum or plasma urea nitroge n measurement (mass/volume)Ordered By: Dr. Mondragon on 04-22-2022 Urea nitrogen [Mass/Vol] 9 mg/dL 7-18 [facility] Thin prep Papanicolaou smear with manual screeningOrdered By: Dr. Mondragon on 04-22-2022 Thin prep Papanicolaou smear with manual screening 7 5-15 [facility] Urine phencyclidine (PCP) de tectionOrdered By: Dr. Mondragon on 04-22-2022 Phencyclidine Ql (U) Negative < 25 ng/mL [facility] UA DIP, URINE (POC)on 2022 BILIRUBIN UA (POCT) Negative Negative [facility] CLARITY UA (POCT) Clear [facility] COLOR UA (POCT) Yellow [facility] GLUCOSE UA (POCT) Negative Negative mg/dL [facility] HEMOGLOBIN/BLOOD UA (POCT) Small Abnormal Negative [facility] KETONE UA (POCT) Negative Negative mg/dL [facility] LEUKOCYTES UA (POCT) Negative Negative [facility] NITRITE UA (POCT) Negative Negative [facility] PH UA (POCT) 5.0 4.5 - 8.0 [facility] Protein Ql (U) Negative Negative mg/dL [facility] SPECIFIC GRAVITY UA (POCT) 1.025 1.005 - 1.030 [facility] UROBILINOGEN UA (POCT) 0.2 E.U./dL Maura l E.U./dL [facility] Absolute lymphocyte counton 09-02-2021 Lymphocytes Auto (Unsp spec) [#/Vol] 2.09 10*3/uL 0.83-4.51 [facility] Work Phone: Basophil percentageon 2021 Basophils/100 WBC (Bld) 0.1 % 0-1 [facility] Work Phone: Chloride [Moles/Vol] 106 mmol/L 98-107 [facility] Work Phone: Eosinophils/100 WBC (Bld) 0.0 % 0-5 [facility] Work Phone: Glucose [Mass/Vol] 95 mg/dL 74-106 [facility] Work Phone: Neutrophils (Bld) [#/Vol] 4.6 10*3/uL 2.0-7.7 [facility] Work Phone: Neutrophils/100 WBC (Bld) 62.7 % 47-70 [facility] Work Phone: Potassium [Moles/Vol] 3.9 mmol/L 3.5-5.1 [facility] Work Phone: Sodium [Moles/Vol] 137 mmol/L 136-145 [facility] Work Phone: WBC (Bld) [#/Vol] 7.3 10*3/uL 4.4-11.0 [facility] Work Phone: Blood erythrocytes count (nu mber/volume)on 09-02-2021 RBC (Bld) [#/Vol] 5.06 10*6/uL 4.6-6.2 [facility] Work Phone: Blood hemoglobin measurement (mass/volume)on 09-02-2021 Hemoglobin (Bld) [Mass/Vol] 12.8 g/dL 13.0-16.5 [facility] Work Phone: Blood lymphocytes/100 leukoc yteson 09-02-2021 Lymphocytes/100 WBC (Bld) 28.6 % 19-41 [facility] Work Phone: Blood monocytes/100 leukocyt eson 09-02-2021 Monocytes/100 WBC (Bld) 8.3 % 0-10 [facility] Work Phone: Blood platelet mean volumeon 09-02-2021 Platelet mean volume (Bld) [Entitic vol] 8.9 fL 6.2-12.0 [facility] Work Phone: Determination of erythrocyte mean corpuscular volume (MCV)on 09-02-2021 MCV (RBC) [Entitic vol] 77.9 fL 80-94 [facility] Work Phone: Hematocrit Auto (Bld) [Volum e fraction]on 09-02-2021 Hematocrit (Bld) [Volume fraction] 39.4 % 40-54 [facility] Work Phone: Laboratory - Chemistry and C hemistry - challengeon 09-02-2021 CO2 [Moles/Vol] 25.0 mmol/L 21.0-32.0 [facility] Work Phone: Urea nitrogen/Creatinine [Mass ratio] 17.5 mg/mg 10-20 [facility] Work Phone: Laboratory - Drug toxicology on 09-02-2021 Amphetamines Ql (U) Negative <1000 ng/mL [facility] Work Phone: Benzodiazepines Ql (U) Negative < 200 ng/mL [facility] Work Phone: Cannabinoids Screen Ql (U) Negative < 50 ng/mL [facility] Work Phone: Cocaine Ql (U) Negative < 300 ng/mL [facility] Work Phone: Opiates Ql (U) Negative < 300 ng/mL [facility] Work Phone: Laboratory - Hematology and Cell countson 09-02-2021 Erythrocyte distribution width (RBC) [Entitic vol] 41.1 fL 35.1-43.9 [facility] Work Phone: Erythrocyte distribution width (RBC) [Ratio] 14.7 % 11.6-14.6 [facility] Work Phone: Immature granulocytes/100 WBC (Bld) 0.300 % 0.0-0.9 [facility] Work Phone: Comment on above: IG% - Immature Granu locytes (promyelocytes, myelocytes and metamyelocytes) > 1% indicates that a LEFT SHIFT is Present. MCH (RBC) [Entitic mass] 25.3 pg 27.0-32.0 [facility] Work Phone: Nucleated RBC/100 WBC (Bld) [Ratio] 0 % 0-5 [facility] Work Phone: MCHC Auto (RBC) [Mass/Vol]on 09-02-2021 MCHC (RBC) [Mass/Vol] 32.5 g/dL 32-36 [facility] Work Phone: No Panel Informationon 09-02 MDMA (Ecstasy) Screen Negative < 500 ng/mL [facility] Work Phone: Urine Barbiturates Screen Negative < 200 ng/mL [facility] Work Phone: Urine Drug Screen Comment [facility] Work Phone: Comment on above: CONFIRMATORY TESTING FOR ALL POSITIVE URINE DRUG SCREENRESULTS WILL ONLY BE SENT OUT UPON PHYSICIAN ORDER. [facility]ISTA Urine Drug Screen methods provide only preliminaryanalytical test results. A more specific alternate chemicalmethod must be used in order to obtain a confirmedanalytical result. Gas chromatography/mass spectrometery(GC/MS) is the preferred confirmatory method. Clinicalconsideration and professional judgement should be appliedto any drug of abuse test result, particularly whenpreliminary positive results are used. URINE TCA TESTING MUST BE ORDERED SEPARATELY. USE TESTMNEMONIC: [facility] Urine Methadone Screen Negative < 300 ng/mL [facility] Work Phone: Estimated Creatinine Clearance Calc 133.83 ml/min [facility] Work Phone: Estimated GFR (MDRD) Amer 127 mL/min >60 [facility] Work Phone: Comment on above: GFR Calc Estimated GFR (MDRD) Non-Af Amer 105 mL/min >60 [facility] Work Phone: Comment on above: Non- GFR Calc Ethyl Alcohol Level < 3.0 mg/dL [facility] Work Phone: Comment on above: The serum:whole bloo d ethanol ratio is approximately 1.14and varies slightly with hematocrit. Medical Alcohol reference interval and critical value innon-tolerant individuals; 50 - 100 Impairment 100 Intoxication 100 - 250 Severe Poisoning 250 - 400 Deep/possible fatal coma Platelets bldon 09-02-2021 Platelets (Bld) [#/Vol] 306 10*3/uL 150-450 [facility] Work Phone: Serum or plasma calcium angel urement (mass/volume)on 09-02-2021 Calcium [Mass/Vol] 9.1 mg/dL 8.5-10.1 [facility] Work Phone: Serum or plasma creatinine m easurement (mass/volume)on 09-02-2021 Creatinine [Mass/Vol] 0.91 mg/dL 0.70-1.30 [facility] Work Phone: Comment on above: The validity of the calculated GFR & GFRAA in patients over 70 years has not been determined. Clinical correlation is essential. Serum or plasma urea nitroge n measurement (mass/volume)on 09-02-2021 Urea nitrogen [Mass/Vol] 16 mg/dL 7-18 [facility] Work Phone: Thin prep Papanicolaou smear with manual screeningon 09-02-2021 Thin prep Papanicolaou smear with manual screening 6 5-15 [facility] Work Phone: Urine phencyclidine (PCP) de tectionon 09-02-2021 Phencyclidine Ql (U) Negative < 25 ng/mL [facility] Work Phone: Absolute lymphocyte counton 08-17-2021 Lymphocytes Auto (Unsp spec) [#/Vol] 3.24 10*3/uL 0.83-4.51 [facility] Work Phone: Basophil percentageon 2021 Basophil percentage 0-5 SEEN /hpf 0-5 [facility] Work Phone: Basophils/100 WBC (Bld) 0.1 % 0-1 [facility] Work Phone: Chloride [Moles/Vol] 107 mmol[facility]L 98-107 [facility]: Eosinophils/100 WBC (Bld) 0.0 % 0-5 [facility] Work Phone: Glucose [Mass/Vol] 106 mg/dL 74-106 [facility] Work Phone: Comment on above: Fasting Glucose resu lt from 100 to 125 mg/dL suggests IMPAIRED HOMEOSTASIS per A.D.A. criteria. Neutrophils (Bld) [#/Vol] 3.9 10*3/uL 2.0-7.7 [facility] Work Phone: Neutrophils/100 WBC (Bld) 49.3 % 47-70 [facility] Work Phone: Potassium [Moles/Vol] 4.0 mmol/L 3.5-5.1 [facility] Work Phone: Sodium [Moles/Vol] 138 mmol/L 136-145 [facility] Work Phone: WBC (Bld) [#/Vol] 7.9 10*3/uL 4.4-11.0 [facility] Work Phone: Bilirubin Test strip Ql (U)o n 08-17-2021 Bilirubin Ql (U) Negative Negative [facility] Work Phone: Blood erythrocytes count (nu mber/volume)on 08-17-2021 RBC (Bld) [#/Vol] 4.92 10*6/uL 4.6-6.2 [facility]: Blood hemoglobin measurement (mass/volume)on 08-17-2021 Hemoglobin (Bld) [Mass/Vol] 12.5 g/dL 13.0-16.5 [facility] Work Phone: Blood lymphocytes/100 leukoc yteson 08-17-2021 Lymphocytes/100 WBC (Bld) 41.3 % 19-41 [facility] Work Phone: Blood monocytes/100 leukocyt eson 08-17-2021 Monocytes/100 WBC (Bld) 9.0 % 0-10 [facility] Work Phone: Blood platelet mean volumeon 08-17-2021 Platelet mean volume (Bld) [Entitic vol] 8.8 fL 6.2-12.0 [facility] Work Phone: Determination of erythrocyte mean corpuscular volume (MCV)on 08-17-2021 MCV (RBC) [Entitic vol] 78.0 fL 80-94 [facility] Work Phone: Hematocrit Auto (Bld) [Volum e fraction]on 08-17-2021 Hematocrit (Bld) [Volume fraction] 38.4 % 40-54 [facility] Work Phone: Ketones Test strip Ql (U)on 08-17-2021 Ketones Ql (U) Negative Negative [facility] Work Phone: Laboratory - Chemistry and C hemistry - challengeon 08-17-2021 CO2 [Moles/Vol] 25.0 mmol/L 21.0-32.0 [facility] Work Phone: Urea nitrogen/Creatinine [Mass ratio] 17.2 mg/mg 12-17 [facility] Work Phone: Laboratory - Hematology and Cell countson 08-17-2021 Erythrocyte distribution width (RBC) [Entitic vol] 40.5 fL 35.1-43.9 [facility] Work Phone: Erythrocyte distribution width (RBC) [Ratio] 14.5 % 11.6-14.6 [facility] Work Phone: Immature granulocytes/100 WBC (Bld) 0.300 % 0.0-0.9 [facility] Work Phone: Comment on above: IG% - Immature Granu locytes (promyelocytes, myelocytes and metamyelocytes) > 1% indicates that a LEFT SHIFT is Present. MCH (RBC) [Entitic mass] 25.4 pg 27.0-32.0 [facility] Work Phone: Nucleated RBC/100 WBC (Bld) [Ratio] 0 % 0-5 [facility] Work Phone: MCHC Auto (RBC) [Mass/Vol]on 08-17-2021 MCHC (RBC) [Mass/Vol] 32.6 g/dL 32-36 [facility] Work Phone: Mucus LM Ql (Urine sed)on Mucus Ql (Urine sed) 1+ /hpf [facility] Work Phone: Nitrite Test strip Ql (U)on 08-17-2021 Nitrite Ql (U) Negative Negative [facility] Work Phone: No Panel Informationon 08-17 Estimated Creatinine Clearance Calc 141.44 ml/min [facility] Work Phone: Estimated GFR (MDRD) Amer 146 mL/min >60 [facility] Work Phone: Comment on above: GFR Calc Estimated GFR (MDRD) Non-Af Amer 120 mL/min >60 [facility] Work Phone: Comment on above: Non- GFR Calc Platelets bldon 08-17-2021 Platelets (Bld) [#/Vol] 319 10*3/uL 150-450 [facility] Work Phone: Protein Test strip Ql (U)on 08-17-2021 Protein Ql (U) 15 mg/dl Negative [facility] Work Phone: Serum or plasma calcium angel urement (mass/volume)on 08-17-2021 Calcium [Mass/Vol] 9.1 mg/dL 8.5-10.1 [facility] Work Phone: Serum or plasma creatinine m easurement (mass/volume)on 08-17-2021 Creatinine [Mass/Vol] 0.81 mg/dL 0.70-1.30 [facility] Work Phone: Comment on above: The validity of the calculated GFR & GFRAA in patients over 70 years has not been determined. Clinical correlation is essential. Serum or plasma urea nitroge n measurement (mass/volume)on 08-17-2021 Urea nitrogen [Mass/Vol] 14 mg/dL 7-18 [facility] Work Phone: Squamous epithelial cells de tection in urine sediment by light microscopyon 08-17-2021 Epithelial cells.squamous LM Ql (Urine sed) 0 SEEN /hpf 0-5 [facility] Work Phone: Thin prep Papanicolaou smear with manual screeningon 08-17-2021 Thin prep Papanicolaou smear with manual screening 6 5-15 [facility] Work Phone: Urine blood detectionon 07-30 RBC Ql (U) Negative Negative [facility] Work Phone: RBC Ql (U) 0 SEEN /hpf 0-5 [facility] Work Phone: Urine clarityon 08-17-2021 Clarity (U) Clear Clear [facility] Work Phone: Urine color determinationon 08-17-2021 Color (U) Yellow Yellow [facility] Work Phone: Urine glucose detectionon Glucose Ql (U) Normal mg/dl Normal [facility] Work Phone: Urine leukocyte esterase det ection by dipstickon 08-17-2021 Leukocyte esterase Test strip Ql (U) Negative Negative [facility] Work Phone: Urine pHon 08-17-2021 pH (U) 6.0 [pH] 5.0 - 8.0 [facility] Work Phone: Urine sediment bacteria coun t by microscopy (number/high power field)on 08-17-2021 Bacteria LM.HPF (Urine sed) [#/Area] 1 /[HPF] None Seen [facility] Work Phone: Urine specific gravity measu rementon 08-17-2021 Specific gravity (U) [Rel density] 1.030 1.002-1.030 [facility] Work Phone: Urobilinogen Auto test strip Ql (U)on 08-17-2021 Urobilinogen Ql (U) Normal mg/dl Normal [facility] Work Phone: ANES POSTPROC EVALon 021 ANES POSTPROC EVAL HNO ID: [id number] Author: Sofi Sim MD Service: Anesthesiology Author Type: Anesthesiologist Type: Anesthesia Postprocedure Evaluation Filed: 01/26/2021 5:01 PM Note Text: POST ANESTHESIA EVALUATION NOTE : 1995 Procedure Summary Date: 01/26/21 Room / Location: SD OR / SD OR Anesthesia Start: 1435 Anesthesia Stop: 1607 Procedure: LAPAROSCOPIC CHOLECYSTECTOMY (N/A ) Diagnosis: RUQ pain Calculus of gallbladder with acute on chronic cholecystitis without obstruction ((R10.11) RUQ pain (primary encounter diagnosis)) ((K80.20) Calculus of gallbladder without cholecystitis without obstruction) (?`) Surgeons: Gonzalo Leon MD Responsible Provider: Sofi Sim MD Anesthesia Type: general ASA Status: 3 Anesthesia Type: general Last vitals Vitals Value Taken Time BP 139/65 01/26/21 1645 Temp 36.5 ?C (97.7 ?F) 01/26/21 1608 Pulse 80 01/26/21 1645 Resp 16 01/26/21 1645 SpO2 96 % 01/26/21 1645 Post Anesthesia Patient Status Patient Evaluation: PACU. PACU/ICU Patient Condition: stable. Anticipated Disposition: phase 2 then home. Neurological Status: aware and responsive. Pulmonary Status: breathing comfortably on room air Airway Control: returned to baseline unsupported. Cardiovascular Status: stable. Pain Management: clinically adequate - multimodal analgesia pain management approach Postoperative Hydration: acceptable. Intraoperative Events: no significant anesthesia events Post Operative Nausea/Vomiting Status: no significant post operative nausea or vomiting Anesthetic Observations: Recommendation: continue current plan of care. Anesthesia Observations No Documentation SIGNATURE: Sofi Sim MD PATIENT NAME: Levy Todd DATE: January 26, 2021 TIME: 5:01 PM CSN: [id number] [facility] ANES PRE-OPon 01-26-2021 ANES PRE-OP HNO ID: [id number] Author: Kedar Jerez MD Service: Anesthesiology Author Type: Anesthesiologist Type: Anesthesia Preprocedure Evaluation Filed: 01/26/2021 1:22 PM Note Text: ANESTHESIOLOGY DAY OF SURGERY NOTE : 1995 Procedure(s) (LRB): LAPAROSCOPIC CHOLECYSTECTOMY (N/A) Surgeon(s): Gonzalo Leon MD Estimated body mass index is 44.63 kg/m? as calculated from the following: Height as of this encounter: 180.3 cm (5' 11). Weight as of this encounter: 145.2 kg (320 lb). Most recent hematocrit and potassium results: Hematocrit 41.1 12/23/2020 Potassium 3.8 12/23/2020 Relevant Problems GI (+) GERD (gastroesophageal reflux disease) NEURO-PSYCH (+) Pseudoseizure PULMONARY (+) Mild intermittent asthma without complication I - PHYSICAL EVALUATION AIRWAY Patient intubated: No. Tracheostomy tube not present Mallampati: III. TM distance: >3 FB. Neck ROM: full ROM without neurological symptoms. Mouth opening: adequate. Short neck: no. Thick neck: no DENTAL Normal dental observations. Dental findings: teeth intact. Additional exam findings: no II - ANESTHESIA PLAN ASA Score: 3 Anesthetic Plan: general Airway type: ETT The patient is not a current smoker. NPO Status: adequate Monitoring plan: standard ASA. Postoperative analgesic plan: parenteral or oral opioids. Anesthetic Risks, Benefits, Alternatives, Personnel Discussed. Consent obtained from: patient.Patient / Surrogate agrees to blood products: blood products not planned DNR status not reviewed with patient and/or family prior to surgery. Significant changes in the patient condition since the History and Physical, not otherwise documented in primary service progress note: no. Potential Anesthesia issues that may suggest increased risk of complications or contraindication to planned procedure: none. Vitals Value Taken Time BP 141/82 01/26/21 1307 Pulse 99 01/26/21 1307 Resp 18 01/26/21 1307 Temp 36.3 ?C (97.3 ?F) 01/26/21 1307 SpO2 96 % 01/26/21 1307 Facility-Administered Medications as of 01/26/2021 Medication Dose Route Frequency - lactated ringers iv infusion 5-30 mL/hr INTRAVENOUS CONTINUOUS - ceFAZolin 3 g in D5W 100 mL (ANCEF) 3 g INTRAVENOUS Pre-Op Once Outpatient Medications as of 01/26/2021 Medication Sig - Mirtazapine (REMERON) 7.5 mg tablet Take 1 tablet by mouth daily at bedtime. - traZODone (DESYREL) 50 mg tablet Take 1 tablet by mouth daily at bedtime. - OLANZapine (ZYPREXA) 5 mg tablet Take 1 tablet by mouth daily at bedtime. - cyclobenzaprine (FLEXERIL) 5 mg tablet Take 1 tablet by mouth three times daily as needed. - ondansetron orally disintegrating (ZOFRAN ODT) 4 mg disintegrating tablet Take 1 tablet by mouth every 8 hours as needed for Nausea/Vomiting. - omeprazole (PRILOSEC) 40 mg capsule Take 1 capsule by mouth once daily. - lamoTRIgine (LAMICTAL) 150 mg tablet Take 1 tablet by mouth twice daily. (Patient taking differently: Take 100 mg by mouth twice daily. ) - ibuprofen (MOTRIN) 600 mg tablet Take 1 tablet by mouth every 6 hours as needed for Pain. - docusate sodium (STOOL SOFTENER) 100 mg capsule Take 2 capsules by mouth twice daily. - albuterol HFA (PROVENTIL HFA, VENTOLIN HFA) 90 mcg/actuation inhaler Inhale 2 Puffs as instructed every 4 hours as needed. - fluticasone (FLOVENT HFA) 110 mcg/actuation inhaler Inhale 2 Puffs as instructed twice daily. - Inhaler,Assist Devices,Access (OPTICHAMBER ADULT MASK-LARGE) ritu Dispense one mask - INVEGA SUSTENNA 234 mg/1.5 mL syrg Inject 234 Units intramuscularly every 4 weeks. I have interviewed and examined the patient. I have reviewed the medical record and/or the pre-anesthesia evaluation, pertinent labs, and test results. This contains updated information obtained within 48 hours of Surgery/Procedure. SIGNATURE: Kedar Jerez MD PATIENT NAME: Levy Todd DATE: January 26, 2021 TIME: 1:22 PM CSN: [id number] [facility] BRIEF OP NOTon 01-26-2021 BRIEF OP NOT HNO ID: [id number] Author: Gonzalo Leon MD Service: General Surgery Author Type: Physician Type: Brief Op Note Filed: 01/26/2021 3:54 PM Note Text: BRIEF OPERATIVE NOTATION FOR SURGICAL PROCEDURE. Levy Todd 1995 [id number] male LOG ID: [id number] Surgery/Procedure Date: 01/26/2021 Incision/Procedure Start Time: 1500 Incision Close/Procedure End Time: 1549 Surgeon(s)/Proceduralist (s) and Yarn Wrapper(s): Surgeon(s) and Role: * Gonzalo Leon MD - Primary Nurse Practitioner: Antonieta Stauffer APRN.NON DESTRUCTIVE TESTING TECHNICIAN Registered Nurse Electronics Technology Instructor: Jocelyne Morataya RN REFERRING PHYSICIAN: Outpatient DEPT: PROVIDER: [facility] POS: [id number] ANESTHESIA: General ASA CLASS: 3 - Severe DIAGNOSIS: biliary colic PROCEDURE: LAPAROSCOPIC CHOLECYSTECTOMY WITH INTRAOPERATIVE CHOLEANGIOGRAM - [id number] IVF: 700 EBL: 20 Specimens: gallbladder ADDITIONAL DIAGNOSES: FINDINGS: normal IOC - small ducts COMPLICATIONS: None PMHx - PAST MEDICAL HISTORY Diagnosis Date - Asperger's syndrome - Asthma mild intermittent - Attention deficit disorder with hyperactivity(314.01) - 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 mom lost 6 before him. premature labor. delivered emergency because cord wrapped around his neck. born 8 lbs. went home with mom. - PMH - PAST MEDICAL HISTORY OF HIGH FUNCTIONING AUTISM - PMH - PAST MEDICAL HISTORY OF PRIMARY IMMUNE DEFICENCY - Pseudoseizure 2015 COMORBIDITIES - Obesity Post Op Occurrences - None Wound Classification - Contaminated Operative note dictated in the dictation system. - [id number] Gonzalo Leon MD [facility] HISTORY PHYSICALon HISTORY PHYSICAL HNO ID: [id number] Author: Gonzalo Leon MD Service: General Surgery Author Type: Physician Type: HANDP Filed: 01/26/2021 2:21 PM Note Text: HISTORY AND PHYSICAL ? Levy Todd 1995 ? REFERRING PHYSICIAN: Francy Mittal APRN.C* ? CHIEF COMPLAINT: New Patient (Calculus of gallbladder) ? HPI: Levy is a 25 year old male with a complaint of right upper quadrant pain. The patient has had symptoms of right upper quadrant pain for 3 weeks. The symptoms have increased, over the past few weeks. The pain does radiate to the back. Food does aggravate his symptoms. Alleviating factors include: none. ? The patient was seen by his primary care physician 1 week ago. Levy underwent an ultrasound. These tests demonstrated cholelithiasis. The patient is referred for evaluation and treatment. ? Patient has high functioning Asperger's and states he has a history of schizophrenia and depression. He states he has not had seizures for some time. ? The patient is being seen by me today at the request of Francy Mittal APRN.C* my opinion and advice regarding cholelithiasis and likely symptomatic cholelithiasis.. ? ? SIGNIFICANT MEDICAL PROBLEMS: PAST MEDICAL HISTORY PAST MEDICAL HISTORY Diagnosis Date - Asperger's syndrome ? - Asthma ? ? mild intermittent - Attention deficit disorder with hyperactivity(314.01) ? - Convulsions in ? ? GRAND MAL SEIZURES - Depression ? - Developmental delay ? - Family history of epilepsy ? ? father with GTCs after two traumatic brain injuries - GERD (gastroesophageal reflux disease) ? - Other selective immunoglobulin deficiencies ? ? 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 ? he was baby number 7. mom lost 6 before him. premature labor. delivered emergency because cord wrapped around his neck. born 8 lbs. went home with mom. - PMH - PAST MEDICAL HISTORY OF ? ? HIGH FUNCTIONING AUTISM - PMH - PAST MEDICAL HISTORY OF ? ? PRIMARY IMMUNE DEFICENCY - Pseudoseizure 2015 ? ? OPERATIONS: PAST SURGICAL HISTORY PAST SURGICAL HISTORY Procedure Laterality Date - INCISION EARDRUM,ASPIR,GEN ANESTH ? ? ? Myringotomy/tubes - PAST SURGICAL HISTORY OF ? ? ? toe spur - REPAIR UMBILICAL ANGELIKA,<5Y/O,REDUC ? ? ? Hernia repair, umbilical - repair of diastasis recti ? ? ? CURRENT MEDICATIONS: CURRENT MEDICATIONS Current Outpatient Medications Medication Sig Dispense Refill - Mirtazapine (REMERON) 7.5 mg tablet Take 1 tablet by mouth daily at bedtime. ? ? - traZODone (DESYREL) 50 mg tablet Take 1 tablet by mouth daily at bedtime. ? ? - OLANZapine (ZYPREXA) 5 mg tablet Take 1 tablet by mouth daily at bedtime. ? ? - cyclobenzaprine (FLEXERIL) 5 mg tablet Take 1 tablet by mouth three times daily as needed. 20 tablet 0 - ondansetron orally disintegrating (ZOFRAN ODT) 4 mg disintegrating tablet Take 1 tablet by mouth every 8 hours as needed for Nausea/Vomiting. 20 tablet 0 - ibuprofen (MOTRIN) 600 mg tablet Take 1 tablet by mouth every 6 hours as needed for Pain. 40 tablet 0 - omeprazole (PRILOSEC) 40 mg capsule Take 1 capsule by mouth once daily. 28 capsule 5 - docusate sodium (STOOL SOFTENER) 100 mg capsule Take 2 capsules by mouth twice daily. 120 capsule 5 - albuterol HFA (PROVENTIL HFA, VENTOLIN HFA) 90 mcg/actuation inhaler Inhale 2 Puffs as instructed every 4 hours as needed. 18 g 5 - fluticasone (FLOVENT HFA) 110 mcg/actuation inhaler Inhale 2 Puffs as instructed twice daily. 1 Inhaler 5 - Inhaler,Assist Devices,Access (OPTICHAMBER ADULT MASK-LARGE) ritu Dispense one mask 1 Device 0 - INVEGA SUSTENNA 234 mg/1.5 mL syrg Inject 234 Units intramuscularly every 4 weeks. ? ? - lamoTRIgine (LAMICTAL) 150 mg tablet Take 1 tablet by mouth twice daily. (Patient taking differently: Take 100 mg by mouth twice daily. ) 60 tablet 5 ? No current facility-administered medications for this visit. ? ? ALLERGIES: Concerta [Methylphenidate Analogues], Depakote [Divalproex], Phenobarbital, and Ritalin [Methylphenidate Hcl] ? PERSONAL HISTORY: SOCIAL HISTORY Social History ? Tobacco Use - Smoking status: Never Smoker - Smokeless tobacco: Never Used Vaping Use - Vaping Use: Never used Substance Use Topics - Alcohol use: No - Drug use: No ? FAMILY HISTORY: FAMILY HISTORY FAMILY HISTORY Problem Relation Age of Onset - Allergies Mother ? - Arthritis Mother ? - Hypertension Mother ? - Alcohol/Drug Mother ? - Diabetes Mother ? - Hypertension Father ? - Stroke Father ? - Allergies Maternal Grandmother ? - Arthritis Maternal Grandmother ? - Diabetes Maternal Grandmother ? - Hypertension Maternal Grandmother ? - Arthritis Maternal Grandfather ? - Hypertension Maternal Grandfather ? - Seizures Maternal Grandfather ? - Stroke Maternal Grandfather ? - Hypertension Paternal Grandmother ? - Hypertension Paternal Grandfather ? ? (more content not included)... [facility] NURSING PROGon 01-26-2021 NURSING PROG HNO ID: [id number] Author: Jina Harman RN Service: Nursing Author Type: Registered Nurse Type: Nursing Progress Note Filed: 01/26/2021 1:14 PM Note Text: Nursing Progress Note Patient Name: Levy Todd Patient Location: SD Surgery/SD Surgery PT READY FOR OR, CALL LIGHT IN REACH, MOM AT BEDSIDE. This note was completed by: Jina Harman [facility] OPERATIVE NOon 01-26-2021 OPERATIVE NO HNO ID: [id number] Author: Gonzalo Leon MD Service: General Surgery Author Type: Physician Type: Operative Report Filed: 01/28/2021 4:54 AM Note Text: [facility] - Operative Report LEVY TODD : 1995 AGE: 25. SEX: M PATIENT TYPE: A [facility]: [facility] LOCATION: [facility] ATTENDING PHYSICIAN: Gonzalo Leon M.D. CSN NUMBER: [id number] DATE OF SURGERY/PROCEDURE: 01/26/2021 INCISION/PROCEDURE START TIME: 03:00 p.m. INCISION CLOSE/PROCEDURE END TIME: 03:49 p.m. PREOPERATIVE DIAGNOSIS: Biliary colic. POSTOPERATIVE DIAGNOSIS: Biliary colic, normal cholangiogram with small ducts. SURGEON: Gonzalo Leon M.D. INFORMATION TECHNOLOGY SPECIALIST: Nurse Practitioner: Antonieta Stauffer APRN.NON DESTRUCTIVE TESTING TECHNICIAN Registered Nurse Electronics Technology Instructor: Jocelyne Morataya RN SURGERY/PROCEDURE: Laparoscopic cholecystectomy with intraoperative cholangiogram. ANESTHESIA: General endotracheal. LOG ID#: [id number] ANESTHESIOLOGIST: Kedar Hopkins. ASA: 3. INTRAVENOUS FLUIDS: 700 mL. ESTIMATED BLOOD LOSS: 20 mL. URINE OUTPUT: No catheter. FINDINGS: As described above. SPECIMENS: Gallbladder. DRAINS: None. COMPLICATIONS: None. DISPOSITION: Patient taken to PACU in stable condition. DESCRIPTION OF PROCEDURE: Sign-in was performed verifying patient, site, procedure, position, critical nursing information, VTE, and antibiotic prophylaxis. The patient received 3 g of Ancef due to weight over 120 kg, had sequential compression devices placed. Following induction of general anesthetic, patient's abdomen was prepped and draped in usual fashion. Time-out was performed verifying patient, site, procedure, position. Local anesthetic was injected in the umbilicus. Incision was made dissecting the fascia. 2 stay sutures were placed on the fascia and incision was made through the fascia and the peritoneum under direct visualization. Rosita trocar was inserted through a stay suture. Pneumoperitoneum to 13 mmHg was insufflated. Three 5 mm ports were placed in standard position. Visual inspection revealed adhesions of gallbladder. These were taken down bluntly and sharply. Following this, dissection was carried out in Calot triangle. As dissection was continued, a critical view of the neck of the gallbladder following the cystic duct with no signs of aberrant ductal structures. Clip was placed in the neck of the gallbladder cystic junction and a partial ductotomy was made. Percutaneous cholangiocath was inserted with a clip. Intraoperative cholangiogram showed filling from the cystic duct, filling from the common bile duct, filling of the secondary biliary radicals, and emptying into the duodenum without obstruction. Clip and catheter removed from cystic duct. Cystic duct was divided. As dissection was continued cystic artery was identified, double clipped distally, cauterized, and divided. Gallbladder was dissected free off the gallbladder fossa using electrocautery, placed in endobag and removed through the umbilical port site. 0 PDS [id number] sutures placed on the umbilical port site defect. The gallbladder fossa checked for hemostasis. With good hemostasis, the area was aspirated clear. 5 ports were removed under direct visualization without signs of bleeding. Pneumoperitoneum was released. Umbilical trocar was removed. The umbilical fascia was secured. Skin was closed with interrupted 4-0 Monocryl subcuticular sutures. Steri-Strips dressings applied. Patient tolerated the procedure well and was brought to recovery in stable condition. Antonieta Stauffer was my 1st front office medical assistant. She assisted in visualization, retraction, and performed subcuticular closure. Gera Phillips was the project construction assistant manager. There were no surgeons or qualified residents available. Gonzalo Leon M.D. RG:[id number] /[id number] Normal [facility] SURGICAL PATHOLOGYon 021 SURGICAL PATHOLOGY Specimen originated from [facility] Specimen #: [id number] Submitting Physician: Gonzalo Leon M.D. __ FINAL DIAGNOSIS Gallbladder, cholecystectomy - Chronic cholecystitis. - Cholesterolosis. - Cholelithiasis (gross examination only). ES/SXA 01/28/2021 Jasmin Miranda M.D. (Electronic Signature) SPECIMEN SUBMITTED A: GALLBLADDER CLINICAL DATA CALCULUS OF GALLBLADDER WITH ACUTE ON CHRONIC CHOLECYSTITIS WITHOUT OBSTRUCTION GROSS DESCRIPTION A. Received in formalin, labeled with the patient's name, medical record number, and gallbladder, is an 8.0 x 3.2 x 2.3 cm gallbladder. The serosal surface is quiros-triana, smooth and dull with the exception of the cauterized hepatic bed, which demonstrates multiple defects. Opening of the gallbladder releases viscous bile and a 1.4 x 1.3 x 1.1 cm yellow, spherical and friable calculus. No impaction of the cystic duct is seen. The gallbladder mucosa is bile stained with yellow speckling and an average wall thickness of 0.2 cm. No polyps or mass lesions are identified. 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 MF/ch 01/27/2021 Gross examination performed at [facility], [facility] [place] [address] Date of Report: 01/28/2021 Date of Procedure: 01/26/2021 Date of Receipt: 01/27/2021 Submitted by: Gonzalo Leon M.D. Location: [facility] Diagnostic interpretation performed at [facility], [address] [place] [address]. [place] Number: [id number] [facility] XR CHOLANGIOGRAM INTRAOPon 1 03-28-2020 XR CHOLANGIOGRAM INTRAOP * * *Final Report* * * DATE OF EXAM: Jan 26 2021 3:26PM MDR [id number] - XR CHOLANGIOGRAM INTRAOP / PROCEDURE REASON: CALCULUS OF GALLBLADDER * * * * Physician Interpretation * * * * TECHNIQUE: XR CHOLANGIOGRAM INTRAOP COMPARISON: No prior study for comparison. TECHNIQUE: Limited fluoroscopic imaging from an intraoperative cholangiogram CLINICAL INDICATION: CALCULUS OF GALLBLADDER Fluoroscopic Radiation Summary: Plane A, Air Kerma: 13.4 mGy Dose Area Product (DAP): 0.0 mGy*cm^2 Fluoro time: 0:15 min:sec IMAGE NUMBER: 3 RESULT: Contrast distends the intra and extrahepatic biliary ductal system and flows into the duodenum. No filling defects are seen. IMPRESSION: 1. As above. Box Estimator: KAUSHAL Transcribe Date/Time: Jan 26 2021 3:31P Dictated by : MONICA BENDER MD This examination was interpreted and the report reviewed and electronically signed by: MONICA BENDER MD on Jan 26 2021 3:31PM EST [id number] [facility] ([facility]) -------- LEVY TODD ([id number]) 1995 Date Time Provider Department 01/23/21 [facility] PROVIDER PREANME During your visit today, we recorded the following information about you: Louise Olson RN 01/23/2021 3:26 PM Addendum Left message on well identified voicemail with call back number for any questions. PATIENT PREOPERATIVE INSTRUCTIONS Dr. Leon has scheduled you for your procedure pm 01/26/21 at this surgery center: [facility]: [phone] -- [address] [facility] [place] [address]. Please read below carefully for your personalized instructions. Blood Thinning Medications: - Stop NSAIDS (Ibuprofen, Advil, Aleve, Motrin, Celebrex, Mobic, etc.) 7 days before surgery, as directed by your surgeon. - Stop Vitamin E, ALL multi-vitamins, herbals and dietary supplements 7 days before surgery. - You may take Tylenol (Acetaminophen) or any of your pain medications that do not contain aspirin or NSAIDS as needed. Dietary Restrictions: - No solid food after midnight the night before your surgery. - You may have 12 ounces of clear liquids (water, clear juices such as apple juice or gatorade, carbonated beverages, clear tea, black coffee-only) until 2 hours before scheduled arrival at facility. - Do not drink any alcohol after midnight the night before your surgery. Medications: Approved medications to take the morning of surgery with a sip of water: Omeprazole-(Prilosec), Lamictal, Flovent inhaler. If you start any new medications after today's visit, please contact the surgery center above. Important Reminders: - If you are prescribed inhalers for breathing, continue using them. - Candy, mints, gum and tobacco products are NOT permitted the morning of surgery. - Hearing aids, dentures and glasses may be worn the morning of surgery. - NO jewelry, body piercings, makeup, nail indonesian, hairpins or contacts are to be worn the day of surgery. If you develop symptoms such as a fever, cold, or flu, or have other changes to your health within TWO DAYS of scheduled surgery or the morning of surgery, please contact the surgery center above. Personal Belongings: - Leave ALL valuables and money at home or with family members. Please be aware that emergency situations arise, which may delay or change your surgical time. If this happens, we will notify you as soon as possible and regret any inconvenience. If you already have an Advance Directive, please fax a copy to [phone] or email to [email or web address] for it to be added to your chart. If you do not have an Advance Directive, you can find the appropriate form and more information at [email or web address]. We recommend that you complete the Advance Directive form found on the website and bring it with you the day of your surgery. It can be witnessed and scanned into your chart that day. For Outpatient Procedures: - YOU MUST HAVE A RESPONSIBLE TWITCHELL OPERATOR TAKE YOU HOME. A VELVET WEAVER OR SUPERINTENDENT MARINE CANNOT BE MADE A RESPONSIBLE TWITCHELL OPERATOR. - We recommend that a responsible person stays with you overnight to take care of you. - You cannot stay in a hotel alone after outpatient surgery. You will not be permitted to have your surgery, if you do not have someone to take care of you. Arrival Time for Surgery: - The Surgery Center or hospital where you are having surgery will call the afternoon before surgery (or Tuesday for Tuesday surgery) with a scheduled arrival time. - If you have not heard by 4 pm, please contact the surgery center above. Please be aware that emergency situations arise, which may delay or change your surgical time. If this happens, we will notify you as soon as possible and regret any inconvenience. Louise Olson RN Allergies As of Date: 01/23/2021 Noted Allergy Reaction CONCERTA (METHYLPHENIDATE ANALOGU*07/08/2014 14 - Other: See Comments Comments: hyper DEPAKOTE (DIVALPROEX) 07/08/2020 5 - Intolerance PHENOBARBITAL 01/08/2005 5 - Intolerance RITALIN (METHYLPHENIDATE HCL) 01/08/2005 5 - Intolerance Comments: hyper Date Reviewed: 01/10/2021 Reviewed by: Gonzalo Leon MD - Fully Assessed Reason for Visit: Preparations For Surgery [898] Prescriptions as of 01/23/2021 - Mirtazapine (REMERON) 7.5 mg tablet Take 1 tablet by mouth daily at bedtime. - traZODone (DESYREL) 50 mg tablet Take 1 tablet by mouth daily at bedtime. - OLANZapine (ZYPREXA) 5 mg tablet Take 1 tablet by mouth daily at bedtime. - cyclobenzaprine (FLEXERIL) 5 mg tablet Take 1 tablet by mouth three times daily as needed. - ondansetron orally disintegrating (ZOFRAN ODT) 4 mg disintegrating tablet Take 1 tablet by mouth every 8 hours as needed for Nausea/Vomiting. - ibuprofen (MOTRIN) 600 mg tablet Take 1 tablet by mouth every 6 hours as needed for Pain. - omeprazole (PRILOSEC) 40 mg capsule Take 1 capsule by (more content not included)... Normal [facility] XR Cervical spine AP and Lat eral and obliqueon 07-08-2020 IMPRESSION: Negative cervical spine X-ray. Box Estimator: PSCChad Transcribe Date/Time: Jul 08 2020 12:43P Dictated by : JACLYN TURK MD This examination was interpreted and the report reviewed and electronically signed by: JACLYN TURK MD on Jul 08 2020 12:45PM [facility] DIVISION OF RADIOLOGY * * *Final Report* * * DATE OF EXAM: Jul 08 2020 12:20PM WOX [id number] - XR CERVICAL 4V AP/LAT/OBL / PROCEDURE REASON: Neck pain * * * * Physician Interpretation * * * * EXAM TITLE: XR CERVICAL 4V AP/LAT/OBL EXAM DATE/TIME: 07/08/2020 12:20 PM COMPARISON: None. CLINICAL INDICATION/HISTORY: Neck pain. TECHNIQUE: AP, lateral, and oblique views of the cervical spine are presented. FINDINGS: No fractures or subluxations are noted. The disc spaces are well preserved. There is no significant osteophyte formation. The neural foramina are patent. The prevertebral soft tissues are normal. DIVISION OF RADIOLOGY Provider, [facility] - 07/08/2020 * * *Final Report* * * DATE OF EXAM: Jul 08 2020 12:20PM WOX [id number] - XR CERVICAL 4V AP/LAT/OBL / PROCEDURE REASON: Neck pain * * * * Physician Interpretation * * * * EXAM TITLE: XR CERVICAL 4V AP/LAT/OBL EXAM DATE/TIME: 07/08/2020 12:20 PM COMPARISON: None. CLINICAL INDICATION/HISTORY: Neck pain. TECHNIQUE: AP, lateral, and oblique views of the cervical spine are presented. FINDINGS: No fractures or subluxations are noted. The disc spaces are well preserved. There is no significant osteophyte formation. The neural foramina are patent. The prevertebral soft tissues are normal. IMPRESSION IMPRESSION: Negative cervical spine X-ray. Box Estimator: KAUSHAL Transcribe Date/Time: Jul 08 2020 12:43P Dictated by : JACLYN TURK MD This examination was interpreted and the report reviewed and electronically signed by: JACLYN TURK MD on Jul 08 2020 12:45PM EST [facility] Radiology Study observation (narrative) [facility] XR Cervical spine AP and Lat eral and obliqueOrdered By: [facility] Provider on 07-08-2020 [facility] Lipid Panel Fastingon 2019 Cholesterol [Mass/Vol] 147 mg/dL Normal 0-199 [facility] Comment on above: Result Comment: ATP III Cholesterol classification is Desirable. Performed By: #### L IPDF #### [facility] [address] [place] [address] HDL Cholesterol Fasting 39 mg/dL Low 40-59 M [facility] Comment on above: Result Comment: ATP III HDL Cholestrol Classification is low. Expected Values: Males: >55 = No Risk 35-55 = Moderate Risk <35 = High Risk Females: >65 = No Risk 45-65 = Moderate Risk <45 = High Risk NCEP Guidelines: Third Report June 2000 >59 = negative risk factor for CHD <40 = major risk factor for CHD Performed By: #### L IPDF #### [facility] [address] [place] [address] LDL Cholesterol (Calculated) Fasting 83 mg/dL Normal 0-129 [facility] Comment on above: Result Comment: ATP III LDL Classification is Optimal. Performed By: #### L IPDF #### [facility] [address] [place] [address] Triglycerides Fasting 126 mg/dL Normal 0-150 [facility] Comment on above: Result Comment: ATP III Triglycerides Classification is Normal. Performed By: #### L IPDF #### [facility] [address] [place] [address] BASIC METABOLIC PANELon 03-0 Anion gap [Moles/Vol] 12 mmol/L Normal 0-19 [facility] Comment on above: Performed By: #### B MP #### [facility] [address] [place] [address] Calcium [Mass/Vol] 9.4 mg/dL Normal 8.5-10.4 [facility] Comment on above: Performed By: #### B MP #### [facility] [place] [address] [place] [address] Chloride [Moles/Vol] 102 mmol/L Normal 97-107 [facility] Comment on above: Performed By: #### B MP #### [facility] [place] [place] [address] CO2 [Moles/Vol] 24 mmol/L Normal 24-31 [facility] Comment on above: Performed By: #### B MP #### [facility] [place] [place] [address] Creatinine [Mass/Vol] 0.8 mg/dL Normal 0.4-1.6 [facility] Comment on above: Performed By: #### B MP #### [facility] [place] [address] [place] [address] GFR/1.73 sq M.predicted MDRD (S/P/Bld) [Vol rate/Area] Normal [facility] Comment on above: Result Comment: 126 GFR ml/min/1.73m2 Stage ----- 90 1 60-89 2 30-59 3 15-29 4 <15 5 For -Americans, multiply EGFR result by 1.210 Calculation not validated for patients under 18 years of age. Performed at [place] [address] [place] [address] Performed By: #### B MP #### [facility] [place] [place] [address] Glucose [Mass/Vol] 110 mg/dL High 65-99 [facility] Comment on above: Performed By: #### B MP #### [facility] [place] [address] [place] [address] Potassium [Moles/Vol] 4.0 mmol/L Normal 3.4-5.1 [facility] Comment on above: Performed By: #### B MP #### [facility] [address] [place] [address] Sodium [Moles/Vol] 138 mmol/L Normal 133-145 [facility] Comment on above: Performed By: #### B MP #### [facility] [address] [place] [address] Urea nitrogen [Mass/Vol] 15 mg/dL Normal 8-25 [facility] Comment on above: Performed By: #### B MP #### [facility] [address] [place] [address] Urea nitrogen/Creatinine [Mass ratio] 18.8 RATIO Normal 8-21 [facility] Comment on above: Performed By: #### B MP #### [facility] [place] [address] [place] [address] CBC with Diffon 04-28-2018 AB IMMATURE NEUT 0.02 K/UL Normal 0.0-0.1 [facility] Comment on above: Performed By: #### C BCD #### [facility] [address] [place] [address] ABS BASO 0.00 K/UL Normal 0.00-0.22 [facility] Comment on above: Performed By: #### C BCD #### [facility] [address] [address] ABS EOS 0.00 K/UL Normal 0-0.45 [facility] Comment on above: Performed By: #### C BCD #### [facility] [address] [facility] [address] ABS NEUTROPHILS 3.13 K/UL Normal 1.8-7.7 [facility] Comment on above: Performed By: #### C BCD #### [facility] [place] [address] [place] [address] ABS.NEUT.CALCULATED Normal [facility] Comment on above: Result Comment: 3.13 Performed at [address] [place] [address] Performed By: #### C BCD #### [facility] [address] [address] Basophils/100 WBC (Bld) 0.00 % Normal 0-1 [facility] Comment on above: Performed By: #### C BCD #### [facility] [place] [place] [address] DIFF TYPE AUTO DIFF Normal [facility] Comment on above: Performed By: #### C BCD #### [place] [address] [place] [address] Eosinophils/100 WBC (Bld) 0.00 % Normal 0-3 [facility] Comment on above: Performed By: #### C BCD #### [place] [address] [place] [address] Erythrocyte distribution width (RBC) [Ratio] 14.0 % Normal 11.7-15.0 [facility] Comment on above: Performed By: #### C BCD #### [place] [address] [place] [address] Hematocrit (Bld) [Volume fraction] 40.7 % Low 41-50 [facility] Comment on above: Performed By: #### C BCD #### [place] [address] [place] [address] Hemoglobin (Bld) [Mass/Vol] 13.2 g/dL Low 13.5-16.5 [facility] Comment on above: Performed By: #### C BCD #### [place] [address] [place] [address] Lymphocytes (Bld) [#/Vol] 2.82 10*3/uL Normal 1.2-3.2 [facility] Comment on above: Performed By: #### C BCD #### [place] [address] [place] [address] Lymphocytes/100 WBC (Bld) 42.70 % High 20-40 [facility] Comment on above: Performed By: #### C BCD #### [place] [address] [place] [address] MCH (RBC) [Entitic mass] 25.6 pg Low 26-34 [facility] Comment on above: Performed By: #### C BCD #### [place] [address] [place] [address] MCHC (RBC) [Mass/Vol] 32.4 % Normal 31-37 [facility] Comment on above: Performed By: #### C BCD #### [facility] [place] [address] [place] [address] MCV (RBC) [Entitic vol] 78.9 fL Low 80-100 [facility] Comment on above: Performed By: #### C BCD #### [place] [address] [place] [address] MEAN PLT VOL 8.8 CU Normal 7.0-12.6 [facility] Comment on above: Performed By: #### C BCD #### [place] [address] [place] [address] Monocytes (Bld) [#/Vol] 0.63 10*3/uL Normal 0-0.8 [facility] Comment on above: Performed By: #### C BCD #### [place] [address] [place] [address] Monocytes/100 WBC (Bld) 9.50 % High 0-8 [facility] Comment on above: Performed By: #### C BCD #### [place] [address] [place] [address] Neutrophils/100 WBC (Bld) 0.30 % Normal 0.0-1.0 [facility] Comment on above: Performed By: #### C BCD #### [place] [address] [place] [address] Neutrophils/100 WBC (Bld) 47.50 % Low 50-70 [facility] Comment on above: Performed By: #### C BCD #### [place] [address] [place] [address] NRBC'S 0 /100 WBC Normal 0 [facility] Comment on above: Performed By: #### C BCD #### [place] [address] [place] [address] Platelets (Bld) [#/Vol] 286 10*3/uL Normal 150-450 [facility] Comment on above: Performed By: #### C BCD #### [facility] [place] [place] [address] RBC (Bld) [#/Vol] 5.16 M/UL Normal 4.5-5.5 [facility] Comment on above: Performed By: #### C BCD #### [facility] [place] [place] [address] RDW-SD 39.7 FL Normal 37.0-54.0 [facility] Comment on above: Performed By: #### C BCD #### [facility] [place] [place] [address] WBC (Bld) [#/Vol] 6.6 10*3/uL Normal 4.5-11.0 [facility]placed by [facility] Comment on above: Performed By: #### C BCD #### [facility] [address] [address] CHEST 2 VIEWon 04-28-2018 CHEST 2 VIEW *FINAL Date of Service: 04/27/2018 22:33 Adm #: [id number] Reading Dr:DAGOBERTO RENE Signoff Dr: DAGOBERTO RENE PROCEDURE: CHEST 2 VIEW - WXR 0020 REASON FOR EXAM: Chest Pain RESULT: CHEST 2 VIEW: 04/27/2018 10:33 PM CLINICAL HISTORY: Chest pain COMPARISON: None.. TECHNIQUE: 2 views of the chest were performed. FINDINGS: Cardiac silhouette is within normal limits. Lung heck are hypoinflated. Subtle equivocal infiltrate about the right hemidiaphragm like related overlapping shadows. Bronchovascular crowding also demonstrated. No pleural effusions. IMPRESSION: 1. Subtle infiltrate along the right hemidiaphragm may simply relate to overlapping shadows with lung heck hypoinflated. Consider repeat plain film with inspiration view This report has been produced using speech recognition. Original Interpreting Physician: DAGOBERTO RENE MD Original Transcribed by/Date: [facility] Apr 27 2018 10:44P Original Electronically Signed by/Date: DAGOBERTO RENE MD Apr 27 2018 10:44P Addendum Interpreting Physician: Addendum Transcribed by/Date: NO ADDENDUM Addendum Electronically Signed by/Date: [facility] CHEST PORTABLEon 04-28-2018 CHEST PORTABLE *FINAL Date of Service: 04/28/2018 00:21 Adm #: [id number] Reading Dr:FERN THORPE Signoff Dr: FERN THORPE PROCEDURE: CHEST PORTABLE - WXR 0018 REASON FOR EXAM: chest pain RESULT: None. HISTORY: chest pain. COMPARISON: 04/27/2018. FINDINGS: Persistent signs of subtle infiltrate right base. Left lung clear. Heart and vasculature grossly normal. IMPRESSION: Early infiltrate right base. This report has been produced using speech recognition. Original Interpreting Physician: FERN THORPE DO Original Transcribed by/Date: KAUSHAL Apr 28 2018 7:54A Original Electronically Signed by/Date: EFRN THORPE DO Apr 28 2018 7:54A Addendum Interpreting Physician: Addendum Transcribed by/Date: NO ADDENDUM Addendum Electronically Signed by/Date: [facility] D-DIMERon 04-28-2018 D-DIMER Normal 0.19-0.50 [facility] Comment on above: Result Comment: 0.19 LESS THAN THROMBOEMBOLIC EVENTS CANNOT BE EXCLUDED SOLELY ON THE BASIS OF THE D-DIMER LEVEL BEING WITHIN THE NORMAL REFERENCE RANGE. D-DIMER LEVELS LESS THAN 0.5 MG/L FEU IN CONJUNCTION WITH A LOW CLINICAL PROBABILITY HAVE AN EXCELLENT NEGATIVE PREDICTIVE VALUE IN EXCLUDING A DIAGNOSIS OF PULMONARY EMBOLUS (PE) OR DEEP VEIN THROMBOSIS (DVT). ELEVATED D-DIMER LEVELS ARE NOT SPECIFIC TO PE OR DVT, AND MAY BE SEEN IN PATIENTS WITH DIC, ADVANCED AGE, , MALIGNANCY, LIVER DISEASE, INFECTION, AND INFLAMMATORY CONDITIONS AMONG OTHERS. D-DIMER LEVELS MAY BE DECREASED IN PATIENTS RECEIVING ANTI-COAGULATION THERAPY. Performed at [address] [address] Performed By: #### D [facility] #### [place] [address] HS TROPONIN Ton 04-28-2018 Troponin T.cardiac [Mass/Vol] Normal 0-4 [facility] Comment on above: Result Comment: 6 LESS THAN Sex Specific Reference Range: Male (0-22), Female (0-14) Change(Delta) >=5 is significant Troponin Baseline and Serial elevation for significant change(delta)should be interpreted in conjunction with clinical presentation, history, signs and symptoms, ECG and biomarker concentrations. Troponin elevation can be seen in several other non-infarct conditions. Chronic troponin elevations can be detected in clinically stable patients with heart failure, cardiomyopathy, renal failure, diabetes, etc. Elevated troponin can also occur in myocarditis, heart contusion, PE, drug induced cardiotoxicity, etc. Samples should NOT be taken from patients receiving high dose biotin (> 5mg) doses until 8 hours following last biotin administration. Performed By: #### H STROP #### Main Laboratory [address] [address] Result Comment: 0 Performed at [address] [address] Troponin T.cardiac [Mass/Vol] Normal <15 [facility] Comment on above: Result Comment: No p revious result Performed at [address] [address] Performed By: #### H STROP #### Main Laboratory [address] [address] Result Comment: 6 LESS THAN Sex Specific Reference Range: Male (0-22), Female (0-14) Change(Delta) >=5 is significant Troponin Baseline and Serial elevation for significant change(delta)should be interpreted in conjunction with clinical presentation, history, signs and symptoms, ECG and biomarker concentrations. Troponin elevation can be seen in several other non-infarct conditions. Chronic troponin elevations can be detected in clinically stable patients with heart failure, cardiomyopathy, renal failure, diabetes, etc. Elevated troponin can also occur in myocarditis, heart contusion, PE, drug induced cardiotoxicity, etc. Samples should NOT be taken from patients receiving high dose biotin (> 5mg) doses until 8 hours following last biotin administration. Free T4on 12-23-2017 T4 free mass conc 0.95 ng/dL Normal 0.78-2.[address] [facility] Comment on above: Performed By: #### F T4M, TSH5 ####[facility] [address] [place] [address] Lipid Panelon 12-23-2017 Cholesterol in HDL mass conc 34 mg/dL Low 40-[address] [facility] Comment on above: Performed By: #### L IPD2 ####[facility] [place], [place] Cholesterol mass conc 129 mg/dL Normal < 200 [facility] Comment on above: Performed By: #### L IPD2 ####[facility] Cholesterol.total/Carol sterol in HDL mass ratio [address] [facility] Comment on above: Result Comment: Ref Range:< 3 Low Risk for CHD3-6 Mod Risk for CHD> 6 High Risk for CHD Performed By: #### L IPD2 ####[place] [address] [place], [place] Protein mass conc 84 mg/dL Normal <[address] [facility] Comment on above: Performed By: #### L IPD2 ####[place] [address] [place], [place] Triglyceride mass conc 54 mg/dL Normal <150 [facility] Comment on above: Performed By: #### L IPD2 ####[place] [place] Thyroid Stim. Hormoneon 11-29 Thyroid Stim. Hormone 0.788 u[IU]/mL Normal 0.465-4.[address] [facility] Comment on above: Performed By: #### F T4M, TSH5 ####[place] [address] [place] [address] CR Knee 3 Views Lefton 12-22 CR Knee 3 Views Left Patient Name: LEVY TODD Diagnostic Radiology Exam Date/Time 12/22/2017 14:39:02 EDT Exam CR Knee 3 Views Left Ordering Physician OLLIE MUJICA Accession Number [id number] CPT4 Codes 79243 () Reason For Exam trauma and pain to left knee/patella Report LEFT KNEE TWO VIEWS CLINICAL INDICATION: trauma and pain to left knee/patella TECHNIQUE: Two views of the left knee. COMPARISON: 08/09/2014 FINDINGS: Joint spaces are maintained. No joint effusion. No fracture or dislocation seen. IMPRESSION: 1. Negative. Report Dictated on Final Dictated: 12/22/2017 5:07 pm Dictating Physician: MD JOHNSON JOHN R Signed Date and Time: 12/22/2017 5:08 pm Signed by: MD JOHNSON JOHN R Transcribed Date and Time: 12/22/2017 5:[address] [facility] Vital Signs Date Time Vital Sign Value Performing Clinician Facility 09-12-2024 15:01-0400 Body mass index (BMI) [Ratio] 41.03 kg/m2 Jatin Herrera MD Work Phone: [facility] 09-12-2024 15:01-0400 Body temperature 97.7 [degF] Jatin Herrera MD Work Phone: [facility] 09-12-2024 15:01-0400 Body weight 129.7 kg Jatin Herrera MD Work Phone: [facility] 09-12-2024 15:01-0400 Diastolic blood pressure 80 mm[Hg] Jatin Herrera MD Work Phone: [facility] 09-12-2024 15:01-0400 Heart rate 90 /min Jatin Herrera MD Work Phone: [facility] 09-12-2024 15:01-0400 Respiratory rate 16 /min Jatin Herrera MD Work Phone: [facility] 09-12-2024 15:01-0400 SaO2% (BldA) [Mass fraction] 99 % Jatin Herrera MD Work Phone: [facility] 09-12-2024 15:01-0400 Systolic blood pressure 122 mm[Hg] Jatin Herrera MD Work Phone: [facility] 06-25-2024 10:14-0400 Diastolic blood pressure 72 mm[Hg] Francy Mittal APRN.NON DESTRUCTIVE TESTING TECHNICIAN Work Phone: [facility] 06-25-2024 10:14-0400 Heart rate 74 /min Francy Mittal APRN.NON DESTRUCTIVE TESTING TECHNICIAN Work Phone: [facility] 06-25-2024 10:14-0400 Respiratory rate 16 /min Francy Mittal CHIEF COOK.NON DESTRUCTIVE TESTING TECHNICIAN Work Phone: [facility] 06-25-2024 10:14-0400 SaO2% (BldA) [Mass fraction] 97 % Francy Mittal CHIEF COOK.NON DESTRUCTIVE TESTING TECHNICIAN Work Phone: [facility] 06-25-2024 10:14-0400 Systolic blood pressure 134 mm[Hg] Francy Mittal CHIEF COOK.NON DESTRUCTIVE TESTING TECHNICIAN Work Phone: [facility] 04-10-2024 09:29-0500 Body height 177.8 cm Turner Bundy MD Work Phone: [facility] 04-10-2024 09:29-0500 Body mass index (BMI) [Ratio] 43.62 kg/m2 Turner Bundy MD Work Phone: [facility] 04-10-2024 09:29-0500 Body weight 137.89 kg Turner Bundy MD Work Phone: [facility] 04-10-2024 09:29-0500 Diastolic blood pressure 54 mm[Hg] Turner Bundy MD Work Phone: [facility] 04-10-2024 09:29-0500 Heart rate 86 /min Turner Bundy MD Work Phone: [facility] 04-10-2024 09:29-0500 SaO2% (BldA) [Mass fraction] 96 % Turner Bundy MD Work Phone: [facility] 04-10-2024 09:29-0500 Systolic blood pressure 96 mm[Hg] Turner Bundy MD Work Phone: [facility] 02-27-2024 11:07-0500 Body height 177.8 cm Turner Bundy MD Work Phone: [facility] 02-27-2024 11:07-0500 Body mass index (BMI) [Ratio] 45 kg/m2 Turner Bundy MD Work Phone: [facility] 02-27-2024 11:07-0500 Body temperature 98.2 [degF] Turner Bundy MD Work Phone: [facility] 02-27-2024 11:07-0500 Body weight 142.25 kg Turner Bundy MD Work Phone: [facility] 02-27-2024 11:07-0500 Diastolic blood pressure 72 mm[Hg] Turner Bundy MD Work Phone: [facility] 02-27-2024 11:07-0500 Heart rate 85 /min Turner Bundy MD Work Phone: [facility] 02-27-2024 11:07-0500 SaO2% (BldA) [Mass fraction] 96 % Turner Bundy MD Work Phone: [facility] 02-27-2024 11:07-0500 Systolic blood pressure 110 mm[Hg] Turner Bundy MD Work Phone: [facility] 01-18-2024 08:45-0500 Body mass index (BMI) [Ratio] 45.94 kg/m2 Jina Gayle CHIEF COOK.NON DESTRUCTIVE TESTING TECHNICIAN Work Phone: [facility] 01-18-2024 08:45-0500 Body temperature 98.2 [degF] Jina Gayle CHIEF COOK.NON DESTRUCTIVE TESTING TECHNICIAN Work Phone: [facility] 01-18-2024 08:45-0500 Body weight 148.5 kg Jina Gayle CHIEF COOK.NON DESTRUCTIVE TESTING TECHNICIAN Work Phone: [facility] 01-18-2024 08:45-0500 Diastolic blood pressure 70 mm[Hg] Jina Gayle CHIEF COOK.NON DESTRUCTIVE TESTING TECHNICIAN Work Phone: [facility] 01-18-2024 08:45-0500 Heart rate 104 /min Jina Gayle CHIEF COOK.NON DESTRUCTIVE TESTING TECHNICIAN Work Phone: [facility] 01-18-2024 08:45-0500 Respiratory rate 16 /min Jina Gayle CHIEF COOK.NON DESTRUCTIVE TESTING TECHNICIAN Work Phone: [facility] 01-18-2024 08:45-0500 SaO2% (BldA) [Mass fraction] 96 % Jina Gayle CHIEF COOK.NON DESTRUCTIVE TESTING TECHNICIAN Work Phone: [facility] 01-18-2024 08:45-0500 Systolic blood pressure 118 mm[Hg] Jina Sanam OCHOA Work Phone: [facility] 12-02-2023 10:33-0400 Body mass index (BMI) [Ratio] 45.32 kg/m2 Turner Bundy MD Work Phone: [facility] 12-02-2023 10:33-0400 Body weight 146.51 kg Turner Bundy MD Work Phone: [facility] 12-02-2023 10:33-0400 Diastolic blood pressure 72 mm[Hg] Turner Bundy MD Work Phone: [facility] 12-02-2023 10:33-0400 Heart rate 80 /min Turner Bundy MD Work Phone: [facility] 12-02-2023 10:33-0400 SaO2% (BldA) [Mass fraction] 96 % Turner Bundy MD Work Phone: [facility] 12-02-2023 10:33-0400 Systolic blood pressure 122 mm[Hg] Turner Bundy MD Work Phone: [facility] 11-14-2023 11:04-0400 Body height 179.8 cm Pulm Wstr Work Phone: [facility] 11-14-2023 11:04-0400 Body mass index (BMI) [Ratio] 45.32 kg/m2 Pulm Wstr Work Phone: [facility] 11-14-2023 11:04-0400 Body weight 146.51 kg Pulm Wstr Work Phone: [facility] 11-14-2023 11:04-0400 Heart rate 95 /min Pulm Wstr Work Phone: [facility] 11-14-2023 11:04-0400 Respiratory rate 16 /min Pulm Wstr Work Phone: [facility] 11-14-2023 11:04-0400 SaO2% (BldA) [Mass fraction] 98 % Pulm Wstr Work Phone: [facility] 11-10-2023 14:11-0400 Body mass index (BMI) [Ratio] 45.5 kg/m2 Pamela Nieves CHIEF COOK.NON DESTRUCTIVE TESTING TECHNICIAN Work Phone: [facility] 11-10-2023 14:11-0400 Body weight 147.42 kg Pamela Nieves CHIEF COOK.NON DESTRUCTIVE TESTING TECHNICIAN Work Phone: [facility] 11-10-2023 14:11-0400 Diastolic blood pressure 76 mm[Hg] Pamela Nieves CHIEF COOK.NON DESTRUCTIVE TESTING TECHNICIAN Work Phone: [facility] 11-10-2023 14:11-0400 Heart rate 89 /min Pamela Nieves CHIEF COOK.NON DESTRUCTIVE TESTING TECHNICIAN Work Phone: [facility] 11-10-2023 14:11-0400 Respiratory rate 16 /min Pamela Nieves CHIEF COOK.NON DESTRUCTIVE TESTING TECHNICIAN Work Phone: [facility] 11-10-2023 14:11-0400 Systolic blood pressure 117 mm[Hg] Pamela Nieves CHIEF COOK.NON DESTRUCTIVE TESTING TECHNICIAN Work Phone: [facility] 10-24-2023 15:23-0400 Body mass index (BMI) [Ratio] 44.72 kg/m2 Woo Vargas CHIEF COOK.NON DESTRUCTIVE TESTING TECHNICIAN Work Phone: [facility] 10-24-2023 15:23-0400 Body temperature 98.8 [degF] Woo Vargas CHIEF COOK.NON DESTRUCTIVE TESTING TECHNICIAN Work Phone: [facility] 10-24-2023 15:23-0400 Body weight 144.9 kg Woo Vargas CHIEF COOK.NON DESTRUCTIVE TESTING TECHNICIAN Work Phone: [facility] 10-24-2023 15:23-0400 Diastolic blood pressure 78 mm[Hg] Woo Vargas CHIEF COOK.NON DESTRUCTIVE TESTING TECHNICIAN Work Phone: [facility] 10-24-2023 15:23-0400 Heart rate 80 /min Woo Vargas CHIEF COOK.NON DESTRUCTIVE TESTING TECHNICIAN Work Phone: [facility] 10-24-2023 15:23-0400 Respiratory rate 18 /min Woo Vargas CHIEF COOK.NON DESTRUCTIVE TESTING TECHNICIAN Work Phone: [facility] 10-24-2023 15:23-0400 SaO2% (BldA) [Mass fraction] 98 % Woo Vargas CHIEF COOK.NON DESTRUCTIVE TESTING TECHNICIAN Work Phone: [facility] 10-24-2023 15:23-0400 Systolic blood pressure 134 mm[Hg] Woo Vargas CHIEF COOK.NON DESTRUCTIVE TESTING TECHNICIAN Work Phone: [facility] 09-19-2023 15:00-0400 Body mass index (BMI) [Ratio] 43.68 kg/m2 Angelina Suppan CHIEF COOK.NON DESTRUCTIVE TESTING TECHNICIAN Work Phone: [facility] 09-19-2023 15:00-0400 Body temperature 98.49 [degF] Angelina Suppan CHIEF COOK.NON DESTRUCTIVE TESTING TECHNICIAN Work Phone: [facility] 09-19-2023 15:00-0400 Body weight 141.52 kg Angelina Suppan CHIEF COOK.NON DESTRUCTIVE TESTING TECHNICIAN Work Phone: [facility] 09-19-2023 15:00-0400 Diastolic blood pressure 75 mm[Hg] Angelina Suppan CHIEF COOK.NON DESTRUCTIVE TESTING TECHNICIAN Work Phone: [facility] 09-19-2023 15:00-0400 Heart rate 110 /min Angelina Suppan CHIEF COOK.NON DESTRUCTIVE TESTING TECHNICIAN Work Phone: [facility] 09-19-2023 15:00-0400 SaO2% (BldA) [Mass fraction] 96 % Angelina Suppan CHIEF COOK.NON DESTRUCTIVE TESTING TECHNICIAN Work Phone: [facility] 09-19-2023 15:00-0400 Systolic blood pressure 120 mm[Hg] Angelina Suppan CHIEF COOK.NON DESTRUCTIVE TESTING TECHNICIAN Work Phone: [facility] 08-25-2023 13:18-0400 Body mass index (BMI) [Ratio] 44.04 kg/m2 Jina Gayle CHIEF COOK.NON DESTRUCTIVE TESTING TECHNICIAN Work Phone: [facility] 08-25-2023 13:18-0400 Body temperature 100.9 [degF] Jina Gayle CHIEF COOK.NON DESTRUCTIVE TESTING TECHNICIAN Work Phone: [facility] 08-25-2023 13:18-0400 Body weight 142.7 kg Jina Gayle CHIEF COOK.NON DESTRUCTIVE TESTING TECHNICIAN Work Phone: [facility] 08-25-2023 13:18-0400 Diastolic blood pressure 74 mm[Hg] Jina Gayle CHIEF COOK.NON DESTRUCTIVE TESTING TECHNICIAN Work Phone: [facility] 08-25-2023 13:18-0400 Heart rate 106 /min Jina Gayle CHIEF COOK.NON DESTRUCTIVE TESTING TECHNICIAN Work Phone: [facility] 08-25-2023 13:18-0400 Respiratory rate 18 /min Jina Gayle CHIEF COOK.NON DESTRUCTIVE TESTING TECHNICIAN Work Phone: [facility] 08-25-2023 13:18-0400 SaO2% (BldA) [Mass fraction] 95 % Jina Gayle CHIEF COOK.NON DESTRUCTIVE TESTING TECHNICIAN Work Phone: [facility] 08-25-2023 13:18-0400 Systolic blood pressure 156 mm[Hg] Jina Gayle CHIEF COOK.NON DESTRUCTIVE TESTING TECHNICIAN Work Phone: [facility] 07-14-2023 13:07-0400 Body mass index (BMI) [Ratio] 42.98 kg/m2 Angelina Suppan CHIEF COOK.[employer]ATE ASSEMBLER Work Phone: [facility] 07-14-2023 13:07-0400 Body temperature 98.6 [degF] Angelina Suppan CHIEF COOK.[employer] J[employer]ATE ASSEMBLER Work Phone: [facility] 07-14-2023 13:07-0400 Body weight 139.25 kg Angelina Suppan CHIEF COOK.[employer] J[employer]ATE ASSEMBLER Work Phone: [facility] 07-14-2023 13:07-0400 Diastolic blood pressure 76 mm[Hg] Angelina Suppan CHIEF COOK.[employer] J[employer]ATE ASSEMBLER Work Phone: [facility] 07-14-2023 13:07-0400 Heart rate 96 /min Angelina Suppan CHIEF COOK.[employer] J[employer] ASSEMBLER Work Phone: [facility] 07-14-2023 13:07-0400 Respiratory rate 20 /min Angelina Suppan CHIEF COOK.[employer] J[employer] ASSEMBLER Work Phone: [facility] 07-14-2023 13:07-0400 SaO2% (BldA) [Mass fraction] 97 % Angelina Suppan CHIEF COOK.[employer] ASSEMBLER Work Phone: [facility] 07-14-2023 13:07-0400 Systolic blood pressure 124 mm[Hg] Angelina Suppan CHIEF COOK.[employer] J[employer] ASSEMBLER Work Phone: [facility] 06-20-2023 15:07-0400 Body mass index (BMI) [Ratio] 43.96 kg/m2 Angelina Suppan CHIEF COOK.[employer] ASSEMBLER Work Phone: [facility] 06-20-2023 15:07-0400 Body temperature 97.39 [degF] Angelina Suppan CHIEF COOK.[employer] J[employer]ATE ASSEMBLER Work Phone: [facility] 06-20-2023 15:07-0400 Body weight 142.43 kg Angelina Suppan CHIEF COOK.[employer] J[employer] ASSEMBLER Work Phone: [facility] 06-20-2023 15:07-0400 Diastolic blood pressure 74 mm[Hg] Angelina Suppan CHIEF COOK.[employer] J[employer] ASSEMBLER Work Phone: [facility] 06-20-2023 15:07-0400 Heart rate 99 /min Angelina Suppan CHIEF COOK.[employer] ASSEMBLER Work Phone: [facility] 06-20-2023 15:07-0400 Respiratory rate 16 /min Angelina Suppan CHIEF COOK.[employer] J[employer] ASSEMBLER Work Phone: [facility] 06-20-2023 15:07-0400 SaO2% (BldA) [Mass fraction] 97 % Angelina Suppan CHIEF COOK.[employer] ASSEMBLER Work Phone: [facility] 06-20-2023 15:07-0400 Systolic blood pressure 122 mm[Hg] Nagelina Suppan CHIEF COOK.[employer] ASSEMBLER Work Phone: [facility] 05-30-2023 14:36-0400 Body temperature 97.3 [degF] Angelina Suppan CHIEF COOK.[employer] J[employer] ASSEMBLER Work Phone: [facility] 05-30-2023 14:36-0400 Body weight 139.71 kg Angelina Suppan CHIEF COOK.[employer] ASSEMBLER Work Phone: [facility] 05-30-2023 14:36-0400 Diastolic blood pressure 76 mm[Hg] Angelina Suppan CHIEF COOK.[employer] ASSEMBLER Work Phone: [facility] 05-30-2023 14:36-0400 Heart rate 84 /min Angelina Suppan CHIEF COOK.[employer] ASSEMBLER Work Phone: [facility] 05-30-2023 14:36-0400 Respiratory rate 20 /min Angelina Suppan CHIEF COOK.[employer] ASSEMBLER Work Phone: [facility] 05-30-2023 14:36-0400 SaO2% (BldA) [Mass fraction] 97 % Angelina Suppan CHIEF COOK.[employer] ASSEMBLER Work Phone: [facility] 05-30-2023 14:36-0400 Systolic blood pressure 120 mm[Hg] Angelina Suppan CHIEF COOK.[employer] J[employer] ASSEMBLER Work Phone: [facility] 05-02-2023 15:46-0500 Body weight 139.25 kg Angelina Suppan CHIEF COOK.[employer] ASSEMBLER Work Phone: [facility] 05-02-2023 15:46-0500 Diastolic blood pressure 74 mm[Hg] Angelina Suppan CHIEF COOK.[employer] J[employer] ASSEMBLER Work Phone: [facility] 05-02-2023 15:46-0500 Heart rate 97 /min Angelina Suppan CHIEF COOK.[employer] J[employer] ASSEMBLER Work Phone: [facility] 05-02-2023 15:46-0500 Respiratory rate 20 /min Angelina Suppan CHIEF COOK.[employer] ASSEMBLER Work Phone: [facility] 05-02-2023 15:46-0500 SaO2% (BldA) [Mass fraction] 96 % Angelina Suppan CHIEF COOK.[employer] ASSEMBLER Work Phone: [facility] 05-02-2023 15:46-0500 Systolic blood pressure 118 mm[Hg] Angelina Suppan CHIEF COOK.[employer] ASSEMBLER Work Phone: [facility] 04-18-2023 15:51-0500 Body temperature 98.2 [degF] [facility] 04-18-2023 15:51-0500 Diastolic blood pressure 83 mm[Hg] [facility] 04-18-2023 15:51-0500 Heart rate 95 /min [facility] 04-18-2023 15:51-0500 Respiratory rate 20 /min [facility] 04-18-2023 15:51-0500 SaO2% (BldA) [Mass fraction] 100 % [facility] 04-18-2023 15:51-0500 Systolic blood pressure 130 mm[Hg] [facility] 04-17-2023 15:12-0500 Body height 175.26 cm [facility] 04-17-2023 15:12-0500 Body mass index (BMI) [Ratio] 45.8 kg/m2 [facility] 04-17-2023 15:12-0500 Body weight 140.7 kg [facility] 04-12-2023 14:01-0500 Diastolic blood pressure 74 mm[Hg] Francy Mittal APRN.NON DESTRUCTIVE TESTING TECHNICIAN Work Phone: [facility] 04-12-2023 14:01-0500 Heart rate 107 /min Francy Mittal APRN.NON DESTRUCTIVE TESTING TECHNICIAN Work Phone: [facility] 04-12-2023 14:01-0500 Respiratory rate 16 /min Francy Mittal APRN.NON DESTRUCTIVE TESTING TECHNICIAN Work Phone: [facility] 04-12-2023 14:01-0500 SaO2% (BldA) [Mass fraction] 95 % Francy Mittal CHIEF COOK.NON DESTRUCTIVE TESTING TECHNICIAN Work Phone: [facility] 04-12-2023 14:01-0500 Systolic blood pressure 122 mm[Hg] Francy Mittal APRN.NON DESTRUCTIVE TESTING TECHNICIAN Work Phone: [facility] 04-06-2023 17:17-0500 Body temperature 98.6 [degF] Woo Vargas CHIEF COOK.NON DESTRUCTIVE TESTING TECHNICIAN Work Phone: [facility] 04-06-2023 17:17-0500 Body weight 142.52 kg Woo Vargas CHIEF COOK.NON DESTRUCTIVE TESTING TECHNICIAN Work Phone: [facility] 04-06-2023 17:17-0500 Diastolic blood pressure 82 mm[Hg] Woo Vargas CHIEF COOK.NON DESTRUCTIVE TESTING TECHNICIAN Work Phone: [facility] 04-06-2023 17:17-0500 Heart rate 109 /min Woo Vargas CHIEF COOK.NON DESTRUCTIVE TESTING TECHNICIAN Work Phone: [facility] 04-06-2023 17:17-0500 Respiratory rate 16 /min Woo Vargas CHIEF COOK.NON DESTRUCTIVE TESTING TECHNICIAN Work Phone: [facility] 04-06-2023 17:17-0500 SaO2% (BldA) [Mass fraction] 95 % Woo Vargas CHIEF COOK.NON DESTRUCTIVE TESTING TECHNICIAN Work Phone: [facility] 04-06-2023 17:17-0500 Systolic blood pressure 112 mm[Hg] Woo Vargas CHIEF COOK.NON DESTRUCTIVE TESTING TECHNICIAN Work Phone: [facility] 03-10-2023 09:42-0500 Body height 175.26 cm [facility] 03-10-2023 09:42-0500 Body mass index (BMI) [Ratio] 46.4 kg/m2 [facility] 03-10-2023 09:42-0500 Body temperature 97.5 [degF] [facility] 03-10-2023 09:42-0500 Body weight 142.65 kg [facility] 03-10-2023 09:42-0500 Diastolic blood pressure 83 mm[Hg] [facility] 03-10-2023 09:42-0500 Heart rate 92 /min [facility] 03-10-2023 09:42-0500 Respiratory rate 18 /min [facility] 03-10-2023 09:42-0500 SaO2% (BldA) [Mass fraction] 98 % [facility] 03-10-2023 09:42-0500 Systolic blood pressure 155 mm[Hg] [facility] 12-06-2022 14:01-0400 Body temperature 98.49 [degF] Jatin Herrera MD Work Phone: [facility] 12-06-2022 14:01-0400 Body weight 143.34 kg Jatin Herrera MD Work Phone: [facility] 12-06-2022 14:01-0400 Diastolic blood pressure 66 mm[Hg] Jatin Herrera MD Work Phone: [facility] 12-06-2022 14:01-0400 Heart rate 102 /min Jatin Herrera MD Work Phone: [facility] 12-06-2022 14:01-0400 Respiratory rate 16 /min Jatin Herrera MD Work Phone: [facility] 12-06-2022 14:01-0400 SaO2% (BldA) [Mass fraction] 95 % Jatin Herrera MD Work Phone: [facility] 12-06-2022 14:01-0400 Systolic blood pressure 124 mm[Hg] Jatin Herrera MD Work Phone: [facility] 10-20-2022 16:22-0400 Body weight 141.34 kg Turner Bundy MD Work Phone: [facility] 10-20-2022 16:22-0400 Diastolic blood pressure 62 mm[Hg] Turner Bundy MD Work Phone: [facility] 10-20-2022 16:22-0400 Heart rate 87 /min Turner Bundy MD Work Phone: [facility] 10-20-2022 16:22-0400 Respiratory rate 16 /min Turner Bundy MD Work Phone: [facility] 10-20-2022 16:22-0400 SaO2% (BldA) [Mass fraction] 97 % Turner Bundy MD Work Phone: [facility] 10-20-2022 16:22-0400 Systolic blood pressure 112 mm[Hg] Turner Bundy MD Work Phone: [facility] 10-13-2022 16:22-0400 Body weight 139.71 kg Turner Bundy MD Work Phone: [facility] 10-13-2022 16:22-0400 Diastolic blood pressure 75 mm[Hg] Turner Bundy MD Work Phone: [facility] 10-13-2022 16:22-0400 Heart rate 100 /min Turner Bundy MD Work Phone: [facility] 10-13-2022 16:22-0400 SaO2% (BldA) [Mass fraction] 96 % Turner Bundy MD Work Phone: [facility] 10-13-2022 16:22-0400 Systolic blood pressure 112 mm[Hg] Turner Bundy MD Work Phone: [facility] 10-11-2022 22:22-0400 Respiratory rate 18 /min [facility] 10-11-2022 20:33-0400 Body height 175.26 cm [facility] 10-11-2022 20:33-0400 Body mass index (BMI) [Ratio] 45.5 kg/m2 [facility] 10-11-2022 20:33-0400 Body temperature 98.3 [degF] [facility] 10-11-2022 20:33-0400 Body weight 139.88 kg [facility] 10-11-2022 20:33-0400 Diastolic blood pressure 82 mm[Hg] [facility] 10-11-2022 20:33-0400 Heart rate 94 /min [facility] 10-11-2022 20:33-0400 SaO2% (BldA) [Mass fraction] 96 % [facility] 10-11-2022 20:33-0400 Systolic blood pressure 144 mm[Hg] [facility] 09-13-2022 15:14-0400 Body weight 138.8 kg Turner Bundy MD Work Phone: [facility] 09-13-2022 15:14-0400 Diastolic blood pressure 74 mm[Hg] Turner Bundy MD Work Phone: [facility] 09-13-2022 15:14-0400 Heart rate 101 /min Turner Bundy MD Work Phone: [facility] 09-13-2022 15:14-0400 SaO2% (BldA) [Mass fraction] 95 % Turner Bundy MD Work Phone: [facility] 09-13-2022 15:14-0400 Systolic blood pressure 110 mm[Hg] Turner Bundy MD Work Phone: [facility] 09-03-2022 16:05-0400 Body height 185.4 cm Turner Bundy MD Work Phone: [facility] 09-03-2022 16:05-0400 Body temperature 99.81 [degF] Turner Bundy MD Work Phone: [facility] 09-03-2022 16:05-0400 Body weight 141.16 kg Turner Bundy MD Work Phone: [facility] 09-03-2022 16:05-0400 Diastolic blood pressure 64 mm[Hg] Turner Bundy MD Work Phone: [facility] 09-03-2022 16:05-0400 Heart rate 95 /min Turner Bundy MD Work Phone: [facility] 09-03-2022 16:05-0400 SaO2% (BldA) [Mass fraction] 95 % Turner Bundy MD Work Phone: [facility] 09-03-2022 16:05-0400 Systolic blood pressure 108 mm[Hg] Turner Bundy MD Work Phone: [facility] 08-19-2022 10:33-0400 Body temperature 98.8 [degF] Krislyn Aberegg PA Work Phone: [facility] 08-19-2022 10:33-0400 Body weight 140.07 kg Krislyn Aberegg PA Work Phone: [facility] 08-19-2022 10:33-0400 Diastolic blood pressure 68 mm[Hg] Krislyn Aberegg PA Work Phone: [facility] 08-19-2022 10:33-0400 Heart rate 122 /min Krislyn Aberegg PA Work Phone: [facility] 08-19-2022 10:33-0400 Respiratory rate 20 /min Krislyn Aberegg PA Work Phone: [facility] 08-19-2022 10:33-0400 SaO2% (BldA) [Mass fraction] 96 % Krislyn Aberegg PA Work Phone: [facility] 08-19-2022 10:33-0400 Systolic blood pressure 112 mm[Hg] Krislyn Aberegg PA Work Phone: [facility] 08-17-2022 14:11-0400 Body height 185.4 cm Krislyn Aberegg PA Work Phone: [facility] 08-17-2022 14:11-0400 Body temperature 100.4 [degF] Krislyn Aberegg PA Work Phone: [facility] 08-17-2022 14:11-0400 Body weight 140.16 kg Krislyn Aberegg PA Work Phone: [facility] 08-17-2022 14:11-0400 Diastolic blood pressure 72 mm[Hg] Krislyn Aberegg PA Work Phone: [facility] 08-17-2022 14:11-0400 Heart rate 112 /min Krislyn Aberegg PA Work Phone: [facility] 08-17-2022 14:11-0400 Respiratory rate 16 /min Krislyn Aberegg PA Work Phone: [facility] 08-17-2022 14:11-0400 Systolic blood pressure 128 mm[Hg] Krislyn Aberegg PA Work Phone: [facility] 07-01-2022 16:12-0400 Body height 185.4 cm Turner Bundy MD Work Phone: [facility] 07-01-2022 16:12-0400 Body weight 144.24 kg Turner Bundy MD Work Phone: [facility] 07-01-2022 16:12-0400 Diastolic blood pressure 70 mm[Hg] Turner Bundy MD Work Phone: [facility] 07-01-2022 16:12-0400 Heart rate 79 /min Turner Bundy MD Work Phone: [facility] 07-01-2022 16:12-0400 SaO2% (BldA) [Mass fraction] 96 % Turner Bundy MD Work Phone: [facility] 07-01-2022 16:12-0400 Systolic blood pressure 112 mm[Hg] Turner Bundy MD Work [facility]: [facility] [facility] 06-29-2022 16:13-0400 Body height 185.4 cm Turner Bundy MD Work Phone: [facility] 06-29-2022 16:13-0400 Body temperature 97 [degF] Turner Bundy MD Work Phone: [facility] 06-29-2022 16:13-0400 Body weight 144.24 kg Turner Bundy MD Work Phone: [facility] 06-29-2022 16:13-0400 Diastolic blood pressure 62 mm[Hg] Turner Bundy MD Work Phone: [facility] 06-29-2022 16:13-0400 Heart rate 78 /min Turner Bundy MD Work Phone: [facility] 06-29-2022 16:13-0400 SaO2% (BldA) [Mass fraction] 96 % Turner Bundy MD Work Phone: [facility] 06-29-2022 16:13-0400 Systolic blood pressure 90 mm[Hg] Turner Bundy MD Work Phone: [facility] 06-03-2022 09:52-0400 Diastolic blood pressure 69 mm[Hg] [facility] 06-03-2022 09:52-0400 Heart rate 84 /min [facility] 06-03-2022 09:52-0400 Respiratory rate 16 /min [facility] 06-03-2022 09:52-0400 SaO2% (BldA) [Mass fraction] 95 % [facility] 06-03-2022 09:52-0400 Systolic blood pressure 132 mm[Hg] [facility] 06-02-2022 16:56-0400 Body height 182.88 cm [facility] 06-02-2022 16:56-0400 Body mass index (BMI) [Ratio] 43.3 kg/m2 [facility] 06-02-2022 16:56-0400 Body temperature 96.1 [degF] [facility] 06-02-2022 16:56-0400 Body weight 145.05 kg [facility] 04-23-2022 00:20-0500 SaO2% (BldA) [Mass fraction] 98 % [facility] 04-22-2022 19:43-0500 Diastolic blood pressure 75 mm[Hg] [facility] 04-22-2022 19:43-0500 Heart rate 89 /min [facility] 04-22-2022 19:43-0500 Respiratory rate 12 /min [facility] 04-22-2022 19:43-0500 Systolic blood pressure 140 mm[Hg] [facility] 04-22-2022 19:01-0500 Body temperature 98.2 [degF] [facility] 04-22-2022 16:53-0500 Body height 182.88 cm [facility] 04-22-2022 16:53-0500 Body mass index (BMI) [Ratio] 43.9 kg/m2 [facility] 04-22-2022 16:53-0500 Body weight 146.96 kg [facility] 03-24-2022 11:32-0500 Body temperature 97.7 [degF] Jatin Herrera MD Work Phone: [facility] 03-24-2022 11:32-0500 Body weight 146.06 kg Jatin Herrera MD Work Phone: [facility] 03-24-2022 11:32-0500 Diastolic blood pressure 80 mm[Hg] Jatin Herrera MD Work Phone: [facility] 03-24-2022 11:32-0500 Heart rate 116 /min Jatin Herrera MD Work Phone: [facility] 03-24-2022 11:32-0500 Respiratory rate 18 /min Jatin Herrera MD Work Phone: [facility] 03-24-2022 11:32-0500 SaO2% (BldA) [Mass fraction] 96 % Jatin Herrera MD Work Phone: [facility] 03-24-2022 11:32-0500 Systolic blood pressure 122 mm[Hg] Jatin Herrera MD Work Phone: [facility] 09-03-2021 02:20-0400 Heart rate 88 /min [facility] Work Phone: 09-03-2021 02:20-0400 Respiratory rate 15 /min [facility] Work Phone: 09-03-2021 02:20-0400 SaO2% (BldA) [Mass fraction] 99 % [facility] Work Phone: 09-02-2021 22:00-0400 Diastolic blood pressure 78 mm[Hg] [facility] Work Phone: 09-02-2021 22:00-0400 Systolic blood pressure 129 mm[Hg] [facility] Work Phone: 09-02-2021 14:51-0400 Body height 182.88 cm [facility] Work Phone: 09-02-2021 14:51-0400 Body mass index (BMI) [Ratio] 42.1 kg/m2 [facility] Work Phone: 09-02-2021 14:51-0400 Body temperature 97.7 [degF] [facility] Work Phone: 09-02-2021 14:51-0400 Body weight 141.06 kg [facility] Work Phone: 08-18-2021 01:10-0400 Diastolic blood pressure 63 mm[Hg] [facility] Work Phone: 08-18-2021 01:10-0400 Heart rate 73 /min [facility] Work Phone: 08-18-2021 01:10-0400 Respiratory rate 16 /min [facility] Work Phone: 08-18-2021 01:10-0400 SaO2% (BldA) [Mass fraction] 95 % [facility] Work Phone: 08-18-2021 01:10-0400 Systolic blood pressure 103 mm[Hg] [facility] Work Phone: 08-17-2021 21:57-0400 Body height 177.8 cm [facility] Work Phone: 08-17-2021 21:57-0400 Body mass index (BMI) [Ratio] 45.3 kg/m2 [facility] Work Phone: 08-17-2021 21:57-0400 Body temperature 97 [degF] [facility] Work Phone: 08-17-2021 21:57-0400 Body weight 143.15 kg [facility] Work Phone: 05-25-2021 10:32-0400 Body temperature 97.59 [degF] Jatin Herrera MD Work Phone: [facility] 05-25-2021 10:32-0400 Body weight 138.8 kg Jatin Herrera MD Work Phone: [facility] 05-25-2021 10:32-0400 Diastolic blood pressure 72 mm[Hg] Jatin Herrera MD Work Phone: [facility] 05-25-2021 10:32-0400 Heart rate 104 /min Jatin Herrera MD Work Phone: [facility] 05-25-2021 10:32-0400 Respiratory rate 20 /min Jatin Herrera MD Work Phone: [facility] 05-25-2021 10:32-0400 SaO2% (BldA) [Mass fraction] 96 % Jatin Herrera MD Work Phone: [facility] 05-25-2021 10:32-0400 Systolic blood pressure 122 mm[Hg] Jatin Herrera MD Work Phone: [facility] Encounters Encounter Date Encounter Type Care Provider Facility Start: 09-12-2024 End: 09-12-2024 Office outpatient visit 15 minutes Jatin Herrera MD Work Phone: [facility] Comment on above: Sore throat (Primary Dx) Start: 09-12-2024 End: 09-12-2024 ambulatory [facility] Facility:[facility] Start: 08-28-2024 End: 08-28-2024 Patient encounter procedure Fern Guadalupeguido Work Phone: Podiatry Comment on above: Onychomycosis (Prima ry Dx); Pain in toe of right foot Start: 08-28-2024 End: 08-29-2024 ambulatory FERN OTILIO Facility:[facility] Start: 06-26-2024 End: 06-27-2024 Refill Fern Testguido Work Phone: Podiatry Comment on above: Refill Request Start: 06-25-2024 End: 06-26-2024 Follow-up encounter Francy Mittal APRN.CNP Work Phone: [facility] Start: 06-25-2024 End: 06-25-2024 Office outpatient visit 15 minutes Francy Mittal APRN.NON DESTRUCTIVE TESTING TECHNICIAN Work Phone: [facility] Comment on above: Seasonal allergies ( Primary Dx); Nasal congestion; Sore throat; Acute upper respiratory infection, unspecified; Schizoaffective disorder, bipolar type (HCC) Start: 06-25-2024 End: 06-25-2024 ambulatory FRANCYAlan MITTAL Facility:[facility] Start: 04-13-2024 End: 04-13-2024 [facility] Start: 04-10-2024 End: 04-10-2024 [facility] Start: 04-10-2024 End: 04-10-2024 Patient encounter procedure Turner Bundy MD Work Phone: [facility] [place] Comment on above: 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); Mild intermittent asthma without complication; Attention deficit hyperactivity disorder (ADHD), unspecified ADHD type; Psychogenic nonepileptic seizure; Schizoaffective disorder, bipolar type (HCC); Asperger's syndrome; Obesity, Class III, BMI >= 40; Acute midline thoracic back pain Start: 03-27-2024 End: 03-27-2024 Refill Turner Bundy MD Work Phone: [facility] [place] Comment on above: Refill Request Start: 02-27-2024 End: 02-27-2024 [facility] Facility:[facility] Start: 02-27-2024 End: 02-27-2024 Patient encounter procedure Turner Bundy MD Work Phone: [facility] Comment on above: Schizoaffective diso rder, unspecified type (HCC) (Primary Dx); Attention deficit hyperactivity disorder (ADHD), unspecified ADHD type; Asperger's syndrome; Mild intermittent asthma without complication; Acute non-recurrent frontal sinusitis Start: 02-15-2024 End: 02-15-2024 Refill Turner Bundy MD Work Phone: [facility] Comment on above: Refill Request Start: 02-14-2024 End: 02-14-2024 Refill Turner Bundy MD Work Phone: [facility] Comment on above: Refill Request Start: 02-09-2024 End: 02-09-2024 Refill Turner Bundy MD Work Phone: [facility] Comment on above: Refill Request Start: 01-18-2024 End: 01-18-2024 Subsequent hospital visit by physician Vanesa [facility] [place] Work Phone: Radiology Comment on above: Acute cough [R05.1] Start: 01-18-2024 End: 01-18-2024 [facility] Facility:[facility] Start: 01-18-2024 End: 01-18-2024 Patient encounter procedure Jina Gayle APRN.NON DESTRUCTIVE TESTING TECHNICIAN Work Phone: [facility] Comment on above: Pharyngitis, unspeci fied etiology (Primary Dx); Acute cough; URI, acute Start: 01-04-2024 End: 01-13-2024 [facility] Start: 01-03-2024 End: 01-04-2024 Emergency department patient visit [facility] Facility:[facility] Start: 12-17-2023 End: 12-22-2023 Evaluation and management of inpatient [facility] Start: 12-15-2023 End: 12-17-2023 Emergency department patient visit Jonnie [facility] Facility:[facility] Start: 12-05-2023 End: 12-05-2023 Telephone encounter Angelina Claudio APRN.NON DESTRUCTIVE TESTING TECHNICIAN Work Phone: [facility] Start: 12-02-2023 End: 12-02-2023 ambulatory [facility] Facility:[facility] Start: 12-02-2023 End: 12-02-2023 Patient encounter procedure Turner Bundy MD Work Phone: [facility] Comment on above: Palpitations (Primar y Dx); Anemia, unspecified type; Hypokalemia; Hyperglycemia; Need for vaccination Start: 11-28-2023 End: 11-28-2023 Telephone encounter Turner Bundy MD Work Phone: [facility] [place] Comment on above: [facility] ER f/u 11-27-23 Start: 11-27-2023 End: 11-27-2023 Emergency department patient visit [facility] Facility:[facility] Start: 11-25-2023 End: 11-25-2023 Refill Turner Bundy MD Work Phone: [facility] Comment on above: Refill Request Start: 11-17-2023 End: 11-17-2023 Telephone encounter Pamela Nieves APRN.NON DESTRUCTIVE TESTING TECHNICIAN [facility] Comment on above: Results Start: 11-14-2023 End: 11-14-2023 ambulatory [facility] Work Phone: [facility] Comment on above: Spirometry Start: 11-14-2023 End: 11-14-2023 Patient encounter procedure [facility] Work Phone: [facility] Start: 11-11-2023 End: 11-15-2023 Telephone encounter Pamela Nieves APRN.NON DESTRUCTIVE TESTING TECHNICIAN Work Phone: [facility] Comment on above: Results Start: 11-10-2023 End: 11-10-2023 Patient encounter procedure Pamela Nieves APRN.NON DESTRUCTIVE TESTING TECHNICIAN Work Phone: [facility] Comment on above: Chronic cough (Prima ry Dx); LYNN (dyspnea on exertion); Mild intermittent asthma without complication Start: 11-10-2023 End: 11-10-2023 Subsequent hospital visit by physician Xr [facility] [place] Work Phone: Radiology Comment on above: Chronic cough [R05.3 ] Start: 11-10-2023 End: 11-10-2023 ambulatory PAMELA NIEVES Facility:[facility] Start: 10-24-2023 End: 10-24-2023 ambulatory TURNER BUNDY Facility:[facility] Start: 10-24-2023 End: 10-24-2023 Patient encounter procedure Woo Vargas APRN.NON DESTRUCTIVE TESTING TECHNICIAN [facility] Phone[facility] Comment on above: Sore throat (Primary Dx); Diarrhea, unspecified type Start: 09-19-2023 End: 09-19-2023 ambulatory ANGELINA A SUPPAN Facility:[facility] Start: 09-19-2023 End: 09-19-2023 Office outpatient visit 25 minutes Angelina Claudio APRN.NON DESTRUCTIVE TESTING TECHNICIAN Work Phone: [facility] Comment on above: Gastroesophageal ref lux disease without esophagitis (Primary Dx); Left upper quadrant abdominal pain; Attention deficit hyperactivity disorder (ADHD), other type; Psychogenic nonepileptic seizure; Asperger's syndrome; Mild intermittent asthma without complication; Schizoaffective disorder, bipolar type ([facility]); Lactose intolerance Start: 09-09-2023 End: 09-09-2023 ambulatory [facility] Facility:[facility] Start: 09-06-2023 Refill Turner Bundy MD Work Phone: [facility] [place] Comment on above: Opened In Error Start: 08-25-2023 End: 08-25-2023 Subsequent hospital visit by physician Xr [facility] Work Phone: Radiology Comment on above: Acute cough [R05.1] Start: 08-25-2023 End: 08-25-2023 Patient encounter procedure Jina Gayle CHIEF COOK.NON DESTRUCTIVE TESTING TECHNICIAN Work Phone: [facility] Comment on above: Acute cough (Primary Dx); URI, acute Start: 08-04-2023 End: 08-05-2023 Emergency department patient visit [facility] Facility:[facility] Start: 08-03-2023 Refill Turner Bundy MD Work Phone: [facility] [place] Comment on above: Refill Request Start: 08-01-2023 Telephone encounter Turner Bundy MD Work Phone: [facility] [place] Comment on above: Insurance Authorizat ion (Lidocaine patches) Start: 07-31-2023 End: 07-31-2023 Emergency department patient visit Sisi Zavala Facility:[facility] Start: 07-29-2023 Refill Turner Bundy MD Work Phone: [facility] Comment on above: Refill Request Start: 07-22-2023 Refill Turner Bundy MD Work Phone: [facility] Comment on above: Refill Request Start: 07-14-2023 End: 07-14-2023 Office outpatient visit 15 minutes Angelina Claudio APRN.CAP JEWEL PLATE ASSEMBLER Work Phone: [facility] Comment on above: Acute non-recurrent maxillary sinusitis (Primary Dx); Encounter for screening for human immunodeficiency virus (HIV); Fatigue associated with AIDS ([facility]); Body mass index (BMI) 40.0-44.9, adult (HCC) Start: 06-20-2023 End: 06-20-2023 Office outpatient visit 15 minutes Angelina Suhail Acostaan CHIEF COOK.CAP JEWEL PLATE ASSEMBLER Work Phone: [facility] Comment on above: Acute maxillary sinu sitis, recurrence not specified (Primary Dx) Start: 05-31-2023 Telephone encounter Angelina Claudio CHIEF COOK.CAP JEWEL PLATE ASSEMBLER Work Phone: [facility] Comment on above: note for work Start: 05-30-2023 End: 05-30-2023 Office outpatient visit 15 minutes Angelina Suhail Suppan CHIEF COOK.CAP JEWEL PLATE ASSEMBLER Work Phone: [facility] Comment on above: Pharyngitis, unspeci fied etiology (Primary Dx); Acute bronchitis, unspecified organism Start: 05-03-2023 Telephone encounter Angelina Claudio CHIEF COOK.CAP JEWEL PLATE ASSEMBLER Work Phone: [facility] Start: 05-02-2023 End: 05-02-2023 Office outpatient visit 15 minutes Angelina Claudio CHIEF COOK.CAP JEWEL PLATE ASSEMBLER Work Phone: [facility] Comment on above: Schizoaffective diso rder, bipolar type (HCC) (Primary Dx); Abdominal pain, unspecified abdominal location; Encounter for immunization Start: 04-17-2023 End: 04-18-2023 Emergency department patient visit [facility] Work Phone: Start: 04-12-2023 End: 04-12-2023 Office outpatient visit 15 minutes Francy Mittal CHIEF COOK.NON DESTRUCTIVE TESTING TECHNICIAN Work Phone: [facility] Comment on above: Dermatitis (Primary Dx) Start: 04-06-2023 End: 04-06-2023 Patient encounter procedure Woo Vargas CHIEF COOK.NON DESTRUCTIVE TESTING TECHNICIAN Work Phone: [facility] Comment on above: Skin irritation (Karin jaimee Dx) Start: 03-23-2023 Telephone encounter Turner Bundy MD Work Phone: [facility] Comment on above: Insurance Authorizat ion (Fluticasone) Start: 03-22-2023 End: 03-22-2023 Subsequent hospital visit by physician Xr [facility] Work Phone: Radiology Comment on above: Bronchitis [J40] Start: 03-10-2023 End: 03-10-2023 Emergency department patient visit [facility] Work Phone: Start: 01-03-2023 End: 01-03-2023 Patient encounter procedure Fern Guadalupeguido Work Phone: Podiatry Comment on above: Pain of toe of right foot (Primary Dx); Right foot pain Start: 12-28-2022 Refill Turner Bundy MD Work Phone: [facility] Comment on above: Refill Request Start: 12-17-2022 End: 12-17-2022 Subsequent hospital visit by physician Xr [facility] Work Phone: Radiology Comment on above: Pain of toe of right foot [M79.674] Start: 12-17-2022 End: 12-17-2022 Patient encounter procedure Fern Guadalupeguido Work Phone: Podiatry Comment on above: Pain of toe of right foot (Primary Dx); Repetitive stress injury Start: 12-08-2022 Telephone encounter Fern Narvaez Work Phone: Podiatry Comment on above: Patient Update; Ana ent Question Start: 12-06-2022 End: 12-06-2022 Patient encounter procedure Jatin Herrera MD Work Phone: [facility] Comment on above: Acute non-recurrent sinusitis, unspecified location (Primary Dx); Bilateral impacted cerumen Start: 12-03-2022 Refill Turner Bundy MD Work Phone: [facility] Comment on above: Refill Request Start: 11-25-2022 End: 11-25-2022 ambulatory [facility] Work Phone: Start: 11-25-2022 End: 11-25-2022 Patient encounter procedure [facility] Work Phone: Start: 11-06-2022 ambulatory Fernhal Cline glenis Work Phone: Podiatry Comment on above: xrays Start: 11-06-2022 E-mail encounter fro m caregiver Fern Solares Work Phone: [facility] Start: 11-03-2022 End: 11-03-2022 Subsequent hospital visit by physician Vanesa [facility] Work Phone: Radiology Comment on above: Pain of toe of right foot [M79.674] Start: 11-03-2022 End: 11-03-2022 Patient encounter procedure Fern Solares Work Phone: Podiatry Comment on above: Pain of toe of right foot Start: 10-20-2022 End: 10-20-2022 Patient encounter procedure Turner Bundy MD Work Phone: [facility] Comment on above: Right ear pain (Prim abdi Dx); Impacted cerumen of right ear Start: 10-13-2022 End: 10-13-2022 Patient encounter procedure Turner Bundy MD Work Phone: [facility] Comment on above: Pain of toe of right foot (Primary Dx) Start: 10-11-2022 End: 10-11-2022 Emergency department patient visit [facility] Work Phone: Start: 09-13-2022 End: 09-13-2022 Patient encounter procedure Turner Bundy MD Work Phone: [facility] Comment on above: Bronchitis (Primary Dx) Start: 09-03-2022 End: 09-03-2022 Subsequent hospital visit by physician Vanesa [facility] Work Phone: Radiology Comment on above: Bronchitis [J40] Start: 09-03-2022 End: 09-03-2022 Patient encounter procedure Turner Bundy MD Work Phone: [facility] Comment on above: Bronchitis (Primary Dx); Mild intermittent asthma without complication Start: 09-03-2022 Telephone encounter Turner Bundy MD Work Phone: [facility] Comment on above: Patient Update Start: 09-02-2022 Telephone encounter Turner Bundy MD Work Phone: [facility] Comment on above: Patient Question Start: 08-19-2022 End: 08-19-2022 Patient encounter procedure Anoop ZABALA Work Phone: [facility] Comment on above: Acute otitis media, left (Primary Dx) Start: 08-17-2022 End: 08-17-2022 Patient encounter procedure Anoop ZABALA Work Phone: [facility] Comment on above: Sore throat (Primary Dx) Start: 07-27-2022 Refill Turner Bundy MD Work Phone: [facility] Comment on above: Refill Request Start: 07-02-2022 End: 07-02-2022 Subsequent hospital visit by physician Xr [facility] Work Phone: Radiology Comment on above: Abdominal pain, unsp ecified abdominal location [R10.9] Start: 07-01-2022 End: 07-01-2022 Patient encounter procedure Turner Bundy MD Work Phone: [facility] Comment on above: Generalized abdomina l pain (Primary Dx) Start: 07-01-2022 Telephone encounter Turner Bundy MD Work Phone: [facility] Comment on above: Results Start: 06-30-2022 Telephone encounter Turner Bundy MD Work Phone: [facility] Comment on above: Results Start: 06-29-2022 End: 06-29-2022 Subsequent hospital visit by physician Xr [facility] Work Phone: Radiology Comment on above: Epigastric pain [R10 .13] Start: 06-29-2022 End: 06-29-2022 Patient encounter procedure Turner Bundy MD Work Phone: [facility] Comment on above: Epigastric pain (Karin jaimee Dx); Left upper quadrant abdominal pain; Medication monitoring encounter Start: 06-02-2022 End: 06-03-2022 Emergency department patient visit [facility] Start: 05-02-2022 ambulatory Ms. Agata Caldwell Fa cility:[id number] Start: 05-01-2022 ambulatory Ms. Agata Caldwell Fa cility:[id number] Start: 04-25-2022 ambulatory Ms. Agata Caldwell Fa cility:[id number] Start: 04-24-2022 ambulatory Ms. Agata Caldwell Fa cility:[id number] Start: 04-23-2022 ambulatory Ms. Agata Caldwell Fa cility:[id number] Start: 04-22-2022 End: 04-23-2022 [facility] Start: 03-25-2022 Telephone encounter Michelle Ibarra CHIEF COOK.NON DESTRUCTIVE TESTING TECHNICIAN Work Phone: [facility] Comment on above: Results Start: 03-24-2022 End: 03-24-2022 Patient encounter procedure Jatin Herrera MD Work Phone: [facility] Comment on above: Dysuria (Primary Dx) ; Urinary frequency; Microscopic hematuria; History of kidney stones Start: 02-01-2022 End: 02-01-2022 ambulatory Francy Mittal APRN.NON DESTRUCTIVE TESTING TECHNICIAN Work Phone: [facility] Comment on above: COVID-19 (Primary Dx ) Start: 02-01-2022 End: 02-01-2022 Telemedicine consultation with patient Francy Mittal APRN.NON DESTRUCTIVE TESTING TECHNICIAN Work Phone: [facility] Start: 01-08-2022 Refill Turner Bundy MD Work Phone: [facility] Comment on above: Refill Request Start: 09-02-2021 End: 09-03-2021 Emergency department patient visit [facility] Start: 08-17-2021 End: 08-18-2021 [facility] Start: 05-25-2021 End: 05-25-2021 Patient encounter procedure Jatin Herrera MD Work Phone: [facility] Comment on above: URI, acute (Primary Dx); Bilateral impacted cerumen Start: 07-08-2020 End: 07-08-2020 Subsequent hospital visit by physician Vanesa [facility] [place] Work Phone: Radiology Comment on above: Neck pain [M54.2] Start: 06-16-2018 Patient encounter procedure Ashleigh Sharmarigan Facility:[id number] Start: 06-15-2018 Patient encounter procedure Ashleigh Sharmarigan Facility:[id number] Start: 06-14-2018 Patient encounter procedure Ashleigh Sharmarigan Facility:[id number] Start: 06-13-2018 Patient encounter procedure Ashleigh park Horrigan Facility:[id number] Start: 06-12-2018 Patient encounter procedure Ashleigh Sharmarigan Facility:[id number] Start: 06-09-2018 Patient encounter procedure Ashleigh Sharmarigan Facility:[id number] Start: 06-08-2018 Patient encounter procedure Ashleigh Sharmarigan Facility:[id number] Start: 06-07-2018 Patient encounter procedure Ashleigh Sharmarigan Facility:[id number] Procedures Date Procedure Procedure Detail Performing Clinician Start: 09-12-2024 Iadna streptococcus group a amplified probe tq Woo Vargas APRN.NON DESTRUCTIVE TESTING TECHNICIAN Work Phone: Start: 06-25-2024 STREP A MOLECULAR (POC) Francy Mittal CHIEF COOK.NON DESTRUCTIVE TESTING TECHNICIAN Work Phone: Start: 06-25-2024 COVID & INFLUENZA A/ B & RSV PCR, ROUTINE Francy Mittal APRN.NON DESTRUCTIVE TESTING TECHNICIAN Work Phone: Start: 01-18-2024 Radiologic exam chest 2 views Jina Gayle CHIEF COOK.NON DESTRUCTIVE TESTING TECHNICIAN Work Phone: Start: 01-18-2024 STREP A MOLECULAR (POC) Woo Vargas CHIEF COOK.NON DESTRUCTIVE TESTING TECHNICIAN Work Phone: Start: 12-02-2023 PFIZER-BIONTBrayola COVI D-19 VACCINE AGE 12+ YR (COMIRNATY) Turner Bundy MD Work Phone: Start: 11-14-2023 Plethysmography lung volumes w/wo airway resist Pamela Nieves CHIEF COOK.NON DESTRUCTIVE TESTING TECHNICIAN Work Phone: Start: 11-10-2023 Radiologic exam chest 2 views Pamela Nieves CHIEF COOK.NON DESTRUCTIVE TESTING TECHNICIAN Work Phone: Start: 10-24-2023 STREP A MOLECULAR (POC) Jina Gayle CHIEF COOK.NON DESTRUCTIVE TESTING TECHNICIAN Work Phone: Start: 08-25-2023 Radiologic exam chest 2 views Jina Gayle APRN.NON DESTRUCTIVE TESTING TECHNICIAN Work Phone: Start: 05-02-2023 INFLUENZA VACCINE, A GE 6 MO - 64 YR, QUADRIVALENT (AFLURIA, FLULAVAL, FLUZONE) Angelina Claudio CHIEF COOK.CAP JEWEL PLATE ASSEMBLER Work Phone: Start: 05-02-2023 Huiyuan COVI D-19 VACCINE (2022- SEASON) AGE 12+ YR Angelina Claudio CHIEF COOK.CAP JEWEL PLATE ASSEMBLER Work Phone: Start: 04-17-2023 Viral antigen assay Start: 03-22-2023 Radiologic exam chest 2 views M Adrien Graham PA-C Work Phone: Start: 12-17-2022 Radex ankle complete minimum 3 views Fern Solares Work Phone: Start: 12-06-2022 Sars-cov-2 detection by dna/rna Jatin Herrera MD Work Phone: Start: 11-03-2022 Radex foot complete minimum 3 views Fern Solares Work Phone: Start: 10-11-2022 X-ray of both feet Start: 09-03-2022 Radiologic exam chest 2 views Turner Bundy MD Work Phone: Start: 08-17-2022 STREP A MOLECULAR (POC) Michelle Wang CHIEF COOK.NON DESTRUCTIVE TESTING TECHNICIAN Work Phone: Start: 07-02-2022 Radiologic exam abdo men 1 view Turner Bundy MD Work Phone: Start: 06-29-2022 Radiologic exam abdo men 1 view Turner Bundy MD Work Phone: Start: 03-24-2022 Urnls dip stick/tabl et rgnt auto w/o microscopy Jina Gayle CHIEF COOK.NON DESTRUCTIVE TESTING TECHNICIAN Work Phone: Start: 08-17-2021 Computed tomography of abdomen and pelvis with contrast Start: 07-08-2020 Radex spine cervical 4 or 5 views Francy Mittal APRN.CNP Work Phone: Start: 04-27-2018 End: 04-27-2018 Electrocardiogram Start: 03-06-2015 Adult depression scr eening assessment Jatin Herrera MD Work Phone: SARS-CoV-2 & FLU Ant igen (Rapid) Viral antigen assay Viral antigen assay Plan of Treatment Date Care Activity Detail Author Start: 08-03-2026 Urine microalbumin profile DTa P,Tdap,Td Vaccine (8 - Td or Tdap) [facility] Start: 07-29-2026 Urine microalbumin profile [facility] Start: 06-25-2025 Annual PCP Team Prism Measurer ander Disease Visit Annual PCP Team Chronic Disease Visit [facility] Start: 04-10-2025 Annual PCP Team Prism Measurer ander Disease Visit Annual PCP Team Chronic Disease Visit [facility] Start: 04-10-2025 End: 04-10-2025 Patient encounter procedure 04/10/2025 10:00 AM EST Office Visit Family [facility] [place] [address] [place] [address] Turner Bundy MD [address] [place] [id number] Yearly exam Family [facility] Comment on above: Yearly exam Start: 02-26-2025 Annual PCP Team Prism Measurer ander Disease Visit Annual PCP Team Chronic Disease Visit [facility] Start: 12-01-2024 Annual PCP Team Prism Measurer ander Disease Visit Annual PCP Team Chronic Disease Visit [facility] Start: 11-09-2024 Annual PCP Team Prism Measurer ander Disease Visit Annual PCP Team Chronic Disease Visit [facility] Start: 10-29-2024 Influenza vaccination Influenza Vacc ine (#1) [facility] Start: 04-12-2024 Annual PCP Team Prism Measurer ander Disease Visit Annual PCP Team Chronic Disease Visit [facility] Start: 04-10-2024 End: 04-10-2024 Patient encounter procedure 04/10/2024 9:40 AM EST Office Visit Family [facility] [address] [place] [id number] Turner Bundy MD [address] [place] [address] 6 month f/u [facility] [place] Comment on above: 6 month f/u Start: 03-22-2024 Annual PCP Team Prism Measurer ander Disease Visit Annual PCP Team Chronic Disease Visit [facility] Start: 03-21-2024 End: 03-21-2024 Patient encounter procedure [facility] Comment on above: 6 month f/u Start: 02-27-2024 End: 02-27-2024 Patient encounter procedure 02/27/2024 11:00 AM EST Office Visit [facility] [place] [address] [place] [address] Turner Bundy MD [address] [facility] [place] [address] 01/04/2024 [facility] - Major Depressive Disorder [facility] [place] Comment on above: 01/04/2024 [facility] - Major Depressive Disorder Start: 12-27-2023 End: 12-27-2023 Patient encounter procedure 12/27/2023 11:00 AM EDT Office Visit Pulmonary Medicine [address] [place] [address] Radha Ospina MD [address] [place] [address] Chronic cough [R05.3 [facility]monary [facility] Comment on above: Chronic cough [R05.3 Start: 12-02-2023 End: 03-02-2024 Basic metabolic 2000 panel - Serum or Plasma [facility] Comment on above: Expected: 12/02/2023 , Expires: 03/02/2024 Start: 12-02-2023 End: 12-01-2024 CBC W Auto Differential panel - Blood [facility] Work Phone: Comment on above: Expected: 12/02/2023 , Expires: 12/01/2024 Start: 12-02-2023 End: 12-01-2024 Cobalamin (Vitamin B12) [Mass/volume] in Serum or Plasma [facility] Comment on above: Expected: 12/02/2023 , Expires: 12/01/2024 Start: 12-02-2023 End: 12-01-2024 Ferritin [Mass/volume] in Serum or Plasma [facility] Comment on above: Expected: 12/02/2023 , Expires: 12/01/2024 Start: 12-02-2023 End: 12-01-2024 Folate [Mass/volume] in Serum or Plasma [facility] Comment on above: Expected: 12/02/2023 , Expires: 12/01/2024 Start: 12-02-2023 End: 03-02-2024 Hemoglobin A1c in Blood [facility] Comment on above: Expected: 12/02/2023 , Expires: 03/02/2024 Start: 12-02-2023 End: 12-01-2024 Iron and Iron binding capacity panel - Serum or Plasma [facility] Comment on above: Expected: 12/02/2023 , Expires: 12/01/2024 Start: 12-02-2023 End: 12-02-2023 Patient encounter procedure 12/02/2023 10:40 AM EDT Office Visit [facility] [place] [address] [place] [address] Turner Bundy MD [address] [place], [place] [address] [facility] ER f/u right CP. 11-27-23. ER found no cause. [facility] [place] Comment on above: [facility] ER f/u right CP. 11-27-23. ER found no cause. Start: 11-14-2023 End: 11-14-2023 ambulatory [facility] Comment on above: Chronic cough [R05.3 ]; LYNN (dyspnea on exertion) [R06.09] Start: 10-30-2023 Covid-19 Vaccine ( season) Covid-19 Vaccine () [facility] Start: 10-30-2023 Influenza vaccination Influenza Vacc ine (#1) [facility] Start: 10-21-2023 ANNUAL PCP TEAM FRONT OFFICE COORDINATOR ANDER DISEASE VISIT ANNUAL PCP TEAM CHRONIC DISEASE VISIT [facility] Start: 10-14-2023 ANNUAL PCP TEAM FRONT OFFICE COORDINATOR ANDER DISEASE VISIT ANNUAL PCP TEAM CHRONIC DISEASE VISIT [facility] Start: 09-14-2023 ANNUAL PCP TEAM FRONT OFFICE COORDINATOR ANDER DISEASE VISIT ANNUAL PCP TEAM CHRONIC DISEASE VISIT [facility] Start: 09-12-2023 End: 09-12-2023 Patient encounter procedure [facility] Comment on above: 6m f/u Start: 09-04-2023 ANNUAL PCP TEAM FRONT OFFICE COORDINATOR ANDER DISEASE VISIT ANNUAL PCP TEAM CHRONIC DISEASE VISIT [facility] Start: 07-14-2023 End: 10-13-2023 25-hydroxyvitamin D3 [Mass/volume] in Serum or Plasma [facility] Comment on above: Expected: 07/14/2023 , Expires: 10/13/2023 Start: 07-14-2023 End: 10-13-2023 HIV 1+2 Ab [Presence] in Serum or Plasma by Immunoassay [facility] Comment on above: Expected: 07/14/2023 , Expires: 10/13/2023 Start: 07-14-2023 End: 10-13-2023 Tissue transglutaminase Ab panel - Serum [facility] Work Phone: Comment on above: Expected: 07/14/2023 , Expires: 10/13/2023 Start: 07-02-2023 ANNUAL PCP TEAM FRONT OFFICE COORDINATOR ANDER DISEASE VISIT ANNUAL PCP TEAM CHRONIC DISEASE VISIT [facility] Start: 06-30-2023 ANNUAL PCP TEAM FRONT OFFICE COORDINATOR ANDER DISEASE VISIT ANNUAL PCP TEAM CHRONIC DISEASE VISIT [facility] Start: 04-18-2023 [facility] Start: 04-17-2023 Referral to service [facility] Start: 04-17-2023 End: 04-17-2023 Suicide precautions [facility] Start: 03-10-2023 End: 03-10-2023 [facility] Start: 02-28-2023 Behavioral Health Screening Behavioral Health Screening [facility] Start: 02-28-2023 Depression Assessment Depression Ass essment [facility] Start: 02-01-2023 ANNUAL PCP TEAM FRONT OFFICE COORDINATOR ANDER DISEASE VISIT ANNUAL PCP TEAM CHRONIC DISEASE VISIT [facility] Start: 10-29-2022 Covid-19 Vaccine () Covid-19 Vaccine () [facility] Start: 10-29-2022 Influenza vaccination C [facility] Start: 10-11-2022 X-ray of both feet Foot min 3 Views [facility] Start: 10-11-2022 XR Foot GE 3 Views [facility] Start: 06-29-2022 End: 08-29-2022 Bacteria identified in Urine by Culture [facility] Work Phone: Comment on above: Expected: 06/29/2022 , Expires: 08/29/2022 Start: 06-29-2022 End: 08-29-2022 Comprehensive metabolic 2000 panel - Serum or Plasma [facility] Work Phone: Comment on above: Expected: 06/29/2022 , Expires: 08/29/2022 Start: 06-29-2022 End: 08-29-2022 Lipase [Enzymatic activity/volume] in Serum or Plasma [facility] Work Phone: Comment on above: Expected: 06/29/2022 , Expires: 08/29/2022 Start: 06-29-2022 End: 08-29-2022 [place]lain [Moles/volume] in Serum or Plasma [facility] Work Phone: Comment on above: Expected: 06/29/2022 , Expires: 08/29/2022 Start: 06-02-2022 Suicide precautions [facility] Start: 06-02-2022 Referral to service [facility] Start: 06-02-2022 Suicide precautions [facility] Start: 04-22-2022 [facility] Start: 04-22-2022 Referral to service [facility] Start: 04-22-2022 End: 04-22-2022 Suicide precautions [facility] Start: 03-24-2022 End: 05-24-2022 Basic metabolic 2000 panel - Serum or Plasma [facility] Work Phone: Comment on above: Expected: 03/24/2022 , Expires: 05/24/2022 Start: 03-24-2022 End: 05-24-2022 CBC W Auto Differential panel - Blood [facility] Work Phone: Comment on above: Expected: 03/24/2022 , Expires: 05/24/2022 Start: 02-28-2022 DEPRESSION ASSESSMENT DEPRESSION ASS ESSMENT [facility] Start: 02-23-2022 ANNUAL PCP TEAM FRONT OFFICE COORDINATOR ANDER DISEASE VISIT ANNUAL PCP TEAM CHRONIC DISEASE VISIT [facility] Start: 10-29-2021 Influenza vaccination INFLUENZA (#1) [facility] Start: 09-02-2021 Suicide precautions [facility] Work Phone: Start: 04-03-2021 COVID-19 VACCINE (4 - Booster for Moderna series) COVID-19 VACCINE (4 - Booster for Moderna series) [facility] Start: 04-03-2021 COVID-19 VACCINE (4 - Moderna series) COVID-19 VACCINE (4 - Moderna series) [facility] Start: 02-28-2021 DEPRESSION ASSESSMENT [facility] Start: 06-28-2017 Medicare Annual Well ness Visit Medicare Annual Wellness Visit [facility] Start: 03-06-2016 Adult depression scr eening assessment DEPRESSION SCREENING [facility] Start: 2012 ONE PNEUMOVAX PRIOR TO AGE 65 ONE PNEUMOVAX PRIOR TO AGE 65 [facility] Start: 09-23-2011 Anxiety Screening Anxiety Screening [facility] Start: 09-23-2011 Depression Screening Depression Scre ening [facility] Start: 09-23-2011 SPIROMETRY SPIROMETRY [facility] Start: 09-23-1999 PNEUMOCOCCAL (1 - PCV) PNEUMOCOCCAL (1 - PCV) [facility] Start: 09-23-1999 Pneumococcal vaccination [facility] Start: 1993 HEPATITIS B (1 of 3 - 3-dose series) HEPATITIS B (1 of 3 - 3-dose series) [facility] Start: 1993 Hepatitis B Vaccine (1 of 3 - 3-dose series) Hepatitis B Vaccine (1 of 3 - 3-dose series) [facility] Bacteria identified in Urine by Culture URINE CULTURE Microbiology Routine Urinary frequency Ordered: 03/24/2022 [facility] Work Phone: Comment on above: Ordered: 03/24/2022 Clostridioides diffi cile toxin genes [Presence] in Stool by RELL with probe detection C. DIFFICILE PCR Lab Routine Diarrhea, unspecified type Ordered: 10/24/2023 [facility] Comment on above: Ordered: 10/24/2023 COVID & INFLUENZA A/ B & RSV PCR, ROUTINE COVID & INFLUENZA A/B & RSV PCR, ROUTINE Microbiology Routine Pharyngitis, unspecified etiology Acute cough Ordered: 01/18/2024 [facility] Work Phone: Comment on above: Ordered: 01/18/2024 ENTERIC BACTERIAL PA UZMA BY PCR ENTERIC BACTERIAL PANEL BY PCR Lab Routine Diarrhea, unspecified type Ordered: 10/24/2023 [facility] Work Phone: Comment on above: Ordered: 10/24/2023 End: 12-09-2024 LUNG VOLUMES LUNG VOLUMES PFT Routine Chronic cough LYNN (dyspnea on exertion) 1 Occurrences starting 11/10/2023 until 12/09/2024 [facility] Comment on above: 1 Occurrences starti ng 11/10/2023 until 12/09/2024 Ova and parasites identified in Unspecified specimen by Light microscopy OVA + PARA MICROSCOPIC Microbiology Routine Diarrhea, unspecified type Ordered: 10/24/2023 [facility] Comment on above: Ordered: 10/24/2023 Patient Education [facility] Work Phone: Patient referral [facility] Work Phone: Removal impacted cer umen irrigation/lvg unilat AMBULATORY EAR LAVAGE/IRRIGATION Procedures Routine Bilateral impacted cerumen Ordered: 12/06/2022 [facility] Work Phone: Comment on above: Ordered: 12/06/2022 End: 12-09-2024 SPIROMETRY - BASELINE AND POST DILATOR SPIROMETRY - BASELINE AND POST DILATOR PFT Routine Chronic cough LYNN (dyspnea on exertion) 1 Occurrences starting 11/10/2023 until 12/09/2024 [facility] Comment on above: 1 Occurrences starti ng 11/10/2023 until 12/09/2024 Urinalysis complete panel - Urine URINALYSIS, WITH MICROSCOPIC Lab Routine Abdominal pain, unspecified abdominal location 05/02/2023 4:44 PM EST [facility] Work Phone: End: 07-29-2023 XR ABDOMEN 1V SUPINE XR ABDOMEN 1V SUPINE Radiology Routine Epigastric pain Left upper quadrant abdominal pain 1 Occurrences starting 06/29/2022 until 07/29/2023 [facility] Work Phone: Comment on above: 1 Occurrences starti ng 06/29/2022 until 07/29/2023 XR ABDOMEN 1V SUPINE XR ABDOMEN 1V SUPINE Radiology Routine Epigastric pain Left upper quadrant abdominal pain 06/29/2022 5:10 PM EDT [facility] Work Phone: End: 01-16-2024 XR ANKLE GENERAL 3V AP/LAT/OBL RIGHT XR ANKLE GENERAL 3V AP/LAT/OBL RIGHT Radiology Routine Pain of toe of right foot 1 Occurrences starting 12/17/2022 until 01/16/2024 [facility] Work Phone: Comment on above: 1 Occurrences starti ng 12/17/2022 until 01/16/2024 XR ANKLE GENERAL 3V AP/LAT/OBL RIGHT XR ANKLE GENERAL 3V AP/LAT/OBL RIGHT Radiology Routine Pain of toe of right foot 12/17/2022 2:49 PM EDT [facility] Work Phone: End: 12-09-2024 XR Chest PA and Lateral XR CHEST 2V FRONTAL/LAT Radiology Routine Chronic cough LYNN (dyspnea on exertion) 1 Occurrences starting 11/10/2023 until 12/09/2024 [facility] Work Phone: Comment on above: 1 Occurrences starti ng 11/10/2023 until 12/09/2024 XR Chest PA and Lateral XR CHEST 2V FRONTAL/LAT Radiology Routine Chronic cough LYNN (dyspnea on exertion) 11/10/2023 2:46 PM EDT [facility] End: 12-03-2023 XR FOOT GENERAL 3V AP/LAT/OBL RIGHT XR FOOT GENERAL 3V AP/LAT/OBL RIGHT Radiology Routine Pain of toe of right foot 1 Occurrences starting 11/03/2022 until 12/03/2023 [facility] Work Phone: Comment on above: 1 Occurrences starti ng 11/03/2022 until 12/03/2023 XR FOOT GENERAL 3V AP/LAT/OBL RIGHT XR FOOT GENERAL 3V AP/LAT/OBL RIGHT Radiology Routine Pain of toe of right foot 11/03/2022 4:32 PM EDT [facility] Work Phone: End: 01-16-2024 XR FOOT GENERAL 3V AP/LAT/OBL RIGHT XR FOOT GENERAL 3V AP/LAT/OBL RIGHT Radiology Routine Pain of toe of right foot Repetitive stress injury 1 Occurrences starting 12/17/2022 until 01/16/2024 [facility] Work Phone: Comment on above: 1 Occurrences starti ng 12/17/2022 until 01/16/2024 XR FOOT GENERAL 3V AP/LAT/OBL RIGHT XR FOOT GENERAL 3V AP/LAT/OBL RIGHT Radiology Routine Pain of toe of right foot Repetitive stress injury 12/17/2022 2:49 PM EDT [facility] Work Phone: End: 12-03-2023 XR TOE AP/LAT/OBL RIGHT XR TOE AP/LAT/OBL RIGHT Radiology Routine Pain of toe of right foot 1 Occurrences starting 11/03/2022 until 12/03/2023 [facility] Work Phone: Comment on above: 1 Occurrences starti ng 11/03/2022 until 12/03/2023 XR TOE AP/LAT/OBL RIGHT XR TOE A P/LAT/OBL RIGHT Radiology Routine Pain of toe of right foot 11/03/2022 4:32 PM EDT [facility] Work Phone: [facility] Immunizations Immunization Date Immunization Notes Care Provider [facility] 12-02-2023 COVID-19 vaccine, ag e 12+ yr ([place]) Turner Bundy MD Work Phone: [facility] 12-02-2023 influenza, seasonal, injectable Turner Bundy MD Work Phone: [facility] 12-02-2023 influenza virus vacc ine, unspecified formulation Fern Solares Work Phone: [facility] 05-02-2023 COVID-19 vaccine, ag e 12+ yr, 2022- season (Huiyuan) Angelina Claudio CHIEF COOK.CAP JEWEL PLATE ASSEMBLER Work Phone: [facility] 05-02-2023 influenza, injectabl e, quadrivalent, contains preservative Angelina Claudio CHIEF COOK.CAP JEWEL PLATE ASSEMBLER Work Phone: [facility] 05-02-2023 influenza virus vacc ine, unspecified formulation Turner Bundy MD Work Phone: [facility] 12-23-2020 influenza, injectabl e, quadrivalent, contains preservative Jatin Herrera MD Work Phone: [facility] 12-23-2020 influenza virus vacc ine, unspecified formulation Turner Bundy MD Work Phone: [facility] 05-14-2020 Covid (Moderna) [facility] 12-22-2017 influenza, injectabl e, quadrivalent, preservative free Jatin Herrera MD Work Phone: [facility] 01-14-2017 influenza, injectabl e, quadrivalent, contains preservative Jatin Herrera MD Work Phone: [facility] 08-03-2016 tetanus toxoid, redu dexter diphtheria toxoid, and acellular pertussis vaccine, adsorbed [facility] 07-29-2016 tetanus toxoid, redu dexter diphtheria toxoid, and acellular pertussis vaccine, adsorbed Jatin Herrera MD Work Phone: [facility] Work Phone: 12-12-2014 influenza, seasonal, injectable Jatin Herrera MD Work Phone: [facility] 12-24-2013 influenza, seasonal, injectable Jatin Herrera MD Work Phone: [facility] 11-28-2013 influenza, injectabl e, quadrivalent, preservative free [facility] 11-28-2013 influenza, seasonal, injectable [facility] 02-01-2012 human papilloma viru s vaccine, quadrivalent Turner Bundy MD Work Phone: [facility] 02-01-2012 influenza, seasonal, injectable, preservative free Turner Bundy MD Work Phone: [facility] 09-15-2011 hepatitis A vaccine, pediatric/adolescent dosage, 2 dose schedule Turner Bundy MD Work Phone: [facility] 09-15-2011 human papilloma viru s vaccine, quadrivalent Turner Bundy MD Work Phone: [facility] 01-11-2011 hepatitis A vaccine, pediatric/adolescent dosage, 2 dose schedule Turner Bundy MD Work Phone: [facility] 01-11-2011 human papilloma viru s vaccine, quadrivalent Turner Bundy MD Work Phone: [facility] 01-11-2011 influenza, seasonal, injectable, preservative free Turner Bundy MD Work Phone: [facility] 03-20-2009 influenza, seasonal, injectable Turnre Bundy MD Work Phone: [facility] 03-20-2009 novel influenza-H1N1 -09, preservative-free, injectable Turner Bundy MD Work Phone: [facility] 01-15-2008 influenza, seasonal, injectable Turner Bundy MD Work Phone: [facility] 08-03-2007 tetanus toxoid, redu dexter diphtheria toxoid, and acellular pertussis vaccine, adsorbed Turner Bundy MD Work Phone: [facility] 01-10-2007 influenza, seasonal, injectable Turner Bundy MD Work Phone: [facility] 11-03-2006 meningococcal polysaccharide (groups A, C, Y and W-135) diphtheria toxoid conjugate vaccine (MCV4P) Turner Bundy MD Work Phone: [facility] 10-14-2006 varicella virus vaccine Will ezequiel Bundy MD Work Phone: [facility] 02-03-2006 influenza, seasonal, injectable Turner Bundy MD Work Phone: [facility] 12-28-2004 influenza, seasonal, injectable Turner Bundy MD Work Phone: [facility] 01-09-2004 influenza, seasonal, injectable Turner Bundy MD Work Phone: [facility] 10-28-2003 measles, mumps and rubella virus vaccine Turner Bundy MD Work Phone: [facility] 10-28-2003 varicella virus vaccine Will ezequiel Bundy MD Work Phone: [facility] 02-07-2003 influenza, seasonal, injectable Turner Bundy MD Work Phone: [facility] 02-06-2002 diphtheria, tetanus toxoids and acellular pertussis vaccine, unspecified formulation Turner Bundy MD Work Phone: [facility] 02-06-2002 influenza, seasonal, injectable Turner Bundy MD Work Phone: [facility] 02-06-2002 pneumococcal conjuga te vaccine, 7 valent Turner Bundy MD Work Phone: [facility] 02-06-2002 poliovirus vaccine, inactivated Turner Bundy MD Work Phone: [facility] 03-16-2001 influenza, seasonal, injectable Turner Bundy MD Work Phone: [facility] 01-18-2000 influenza, seasonal, injectable Turner Bundy MD Work Phone: [facility] 11-25-1999 diphtheria, tetanus toxoids and acellular pertussis vaccine, unspecified formulation Turner Bundy MD Work Phone: [facility] 10-23-1997 trivalent poliovirus vaccine, live, oral Turner Bundy MD Work Phone: [facility] 12-23-1994 diphtheria, tetanus toxoids and pertussis vaccine Turner Bundy MD Work Phone: [facility] 12-23-1994 haemophilus influenz ae type b vaccine, PRP-T conjugate Turner Bundy MD Work Phone: [facility] 09-23-1994 measles, mumps and rubella virus vaccine Turner Bundy MD Work Phone: [facility] 06-25-1994 hepatitis B vaccine, pediatric or pediatric/adolescent dosage Turner Bundy MD Work Phone: [facility] 03-22-1994 diphtheria, tetanus toxoids and pertussis vaccine Turner Bundy MD Work Phone: [facility] 03-22-1994 haemophilus influenz ae type b vaccine, PRP-T conjugate Turner Bundy MD Work Phone: [facility] 03-22-1994 hepatitis B vaccine, pediatric or pediatric/adolescent dosage Turner Bundy MD Work Phone: [facility] 03-22-1994 trivalent poliovirus vaccine, live, oral Turner Bundy MD Work Phone: [facility] 01-15-1994 diphtheria, tetanus toxoids and pertussis vaccine Turner Bundy MD Work Phone: [facility] 01-15-1994 haemophilus influenz ae type b vaccine, PRP-T conjugate Turner Bundy MD Work Phone: [facility] 01-15-1994 trivalent poliovirus vaccine, live, oral Turner Bundy MD Work Phone: [facility] 1993 diphtheria, tetanus toxoids and pertussis vaccine Turner Bundy MD Work Phone: [facility] 1993 haemophilus influenz ae type b vaccine, PRP-T conjugate Turner Bundy MD Work Phone: [facility] 1993 trivalent poliovirus vaccine, live, oral Turner Bundy MD Work Phone: [facility] 1993 hepatitis B vaccine, pediatric or pediatric/adolescent dosage Turner Bundy MD Work Phone: [facility] Payers Date Payer Category Payer Self-pay [id number] 2020 Medicaid MEDICAID [facility] MEDICAID [id number] 2020-Present [phone] [address] [place] [address] Medicaid [id number] 2020 Medicaid [id number] 2018 Unknown MEDPAY MEDPAY xx [id number] 2018-Present [address] [place] [address] Indemnity [id number] 2017 Medicare MEDICARE MEDICAR E A AND B [id number] 2017-Present [phone] [address] [address] [place] [address] Medicare [id number] 2017 Medicare [id number]. [id number] 2017 Medicare [id number] 2013 Medicaid [id number] 1993 Unknown [id number] 1993 Unknown [id number] 2.840.1.108693.3.579.2.356 1993 Unknown [id number] 2.840.1.171045.3.579.2.356 1993 Unknown [id number] 2.16840.1.414272.3.579.2.356 1993 Unknown [id number] 2.840.1.566199.3.579.2.356 1993 Unknown [id number] 2.840.1.643661.3.579.2.356 1993 Unknown [id number] 2.16840.1.136824.3.579.2.356 1993 Unknown [id number] 2.16840.1.716746.3.579.2.356 1993 Unknown [id number] 2.16840.1.992058.3.579.2.356 1993 Unknown [id number] 2.16840.1.044614.3.579.2.356 1993 Unknown [id number] 2.16840.1.014136.3.579.2.356 1993 Unknown [id number] 2.840.1.739143.3.579.2.356 1993 Unknown [id number] 2.16840.1.073928.3.579.2.356 1993 Unknown [id number] 2.840.1.563689.3.579.2.356 1993 Unknown [id number] 2.840.1.247229.3.579.2.356 1993 Unknown [id number] 2.840.1.888600.3.579.2.204 1993 Unknown [id number] 2.840.1.770714.3.579.2.903 Unknown [id number] Unknown [id number] Unknown [id number] Unknown [id number] Unknown [id number] 2.840.1.423170.3.579.2.462 Unknown [id number] 2.840.1.730731.3.579.2.462 Unknown [id number] 2.840.1.044940.3.579.2.462 Unknown [id number] 2.840.1.436073.3.579.2.462 Unknown [id number] 2.0.1.501314.3.579.2.462 Unknown [id number] 2.840.1.775429.3.579.2.462 Unknown [id number] [id number] Social History Date Type Detail Facility Start: 12-07-[address] [facility] Never smoked tobacco [facility] Work Phone: Start: 07-08-2020 End: 05-25-2021 Alcohol intake Current non-drinker of alcohol (finding) [facility] Start: 1995 Sex Assigned At Not on file [facility] Start: 06-08-2020 End: 05-25-2021 Exposure to SARS-CoV-2 (event) Not sure [facility] Work Phone: Start: 08-17-2021 End: 04-17-2023 Tobacco smoking status NHIS Unknown if ever smoked [facility] Start: 02-09-2020 None [facility] Start: 05-27-2020 With Family [facility] Start: 07-04-2020 Non-smoker [facility] Start: 1995 Sex Assigned At Male [facility] Start: 12-07-2013 Tobacco use and exposure Smoke less tobacco non-user [facility] Start: 02-01-2022 History SDOH Alcohol Frequency 1 [facility] Start: 02-01-2022 History SDOH Alcohol Std Drinks 0 [facility] Start: 02-01-2022 History SDOH Social Connections Phone 4 [facility] Start: 02-01-2022 History SDOH Social Connections Get Together 5 [facility] Start: 02-01-2022 History SDOH Social Connections Druze 3 [facility] Start: 02-01-2022 History SDOH Social Connections Meetings 2 [facility] Start: 02-01-2022 History SDOH Social Connections Living 7 [facility] Start: 02-01-2022 End: 02-27-2024 History of Social function [facility] Start: 02-01-2022 End: 02-27-2024 Social connection and isolation panel [facility] Do you belong to any clubs or organizations such as congregational groups, unions, fraternal or athletic groups, or school groups? Yes [facility] Are you now , , , , never or living with a partner? Never [facility] How often to you hav e a drink containing alcohol? Never [facility] How many standard dr inks containing alcohol do you have on a typical day? Patient does not drink [facility] How hard is it for y ou to pay for the very basics like food, housing, medical care, and heating Not very hard [facility] Do you feel stress - tense, restless, nervous, or anxious, or unable to sleep at night because your mind is troubled all the time - these days [OSQ] Not at all [facility] (I/We) worried wheth er (my/our) food would run out before (I/we) got money to buy more. Sometimes true [facility] The food that (I/we) bought just didn't last, and (I/we) didn't have money to get more. Often true [facility] In the past 12 month s, was there a time when you were not able to pay the mortgage or rent on time? No [facility] Start: 12-17-2022 End: 09-12-2024 Alcohol intake Lifetime non-drinker (finding) [facility] How hard is it for y ou to pay for the very basics like food, housing, medical care, and heating Somewhat hard [facility] Do you feel stress - tense, restless, nervous, or anxious, or unable to sleep at night because your mind is troubled all the time - these days [OSQ] To some extent [facility] (I/We) worried wheth er (my/our) food would run out before (I/we) got money to buy more. Never true [facility] Functional Status Date Assessment Result Facility 04-15-2015 Are you deaf, or do you have serious difficulty hearing No 04/15/2015 2:37 PM Karla MaradiagaRn)(Hist), RN No [facility] 04-15-2015 Are you blind, or do you have serious difficulty seeing, even when wearing glasses No 04/15/2015 2:37 PM Karla MaradiagaRn)(Hist), RN No [facility] 04-15-2015 Do you have serious difficulty walking or climbing stairs No 04/15/2015 2:37 PM Karla MaradiagaRn)(Hist), RN No [facility] 04-15-2015 Do you have difficul ty dressing or bathing No 04/15/2015 2:37 PM Karla MaradiagaRn)(Hist), RN No [facility] 04-15-2015 Because of a physica l, mental, or emotional condition, do you have difficulty doing errands alone such as visiting a physician's office or shopping Yes 04/15/2015 2:37 PM Karla MaradiagaRn)(Hist), RN Yes [facility] Mental Status Date Assessment Result Facility 04-15-2015 Because of a physica l, mental, or emotional condition, do you have serious difficulty concentrating, remembering, or making decisions No 04/15/2015 2:37 PM EST Karla Broussard (Rn)(Hist), RN No [facility] Clinical Notes 04-09-2015 to 09-12-2024 Jatin Herrera MD - 09/12/2024 3:12 PM EDTPatient InstructionsTestFern lora - 08/28/2024 1:09 PM EDTSNadia garcia LPN - 08/28/2024 1:03 PM EDTPatient InstructionsPatient Instructions Note Date & Type Note Facility 09-12-2024 Note HNO ID: [id number] Author: JATIN HERRERA MD Service: ? Author Type: Physician Type: Progress Notes Filed: 09/12/2024 15:20 Note Text: [facility] Levy Todd is a 28 year old male. Patient presents with: Cough: Cough and ST x 3 days Patient presents with 3 days of illness accompanied by his long-term caregiver. He has had sore throat, fatigue, and cough. He reports shortness of breath but has not requested his inhaler. Denies headache, fever, chills, nasal congestion, rhinorrhea. His housemate has pneumonia (negative for COVID, little contact with him). Cough Review of Systems Respiratory: Positive for cough. Objective BP 122/80 Pulse 90 Temp 36.5 ?C (97.7 ?F) (Tympanic) Resp 16 Wt 129.7 kg (285 lb 15 oz) SpO2 99% BMI 41.03 kg/m? Physical Exam Constitutional: General: He is not in acute distress. Appearance: He is not ill-appearing. HENT: Right Ear: Tympanic membrane and ear canal normal. Left Ear: Tympanic membrane and ear canal normal. Nose: Congestion present. Eyes: Extraocular Movements: Extraocular movements intact. Conjunctiva/sclera: Conjunctivae normal. Pupils: Pupils are equal, round, and reactive to light. Cardiovascular: Rate and Rhythm: Normal rate and regular rhythm. Heart sounds: No murmur heard. Pulmonary: Effort: No respiratory distress. Breath sounds: Wheezing (Bilateral diffuse) present. No rhonchi or rales. Musculoskeletal: Cervical back: Neck supple. Tenderness present. Lymphadenopathy: Cervical: No cervical adenopathy. Neurological: Mental Status: He is alert. {ASSESSMENT/PLAN: 1. Sore throat - ICD9: 462, ICD10: J02.9 - STREP A MOLECULAR (POC) - negative. - suspect viral URI - Supportive care treatment with rest, cold medicine, and analgesia. - Viral URI contagiousness recommendations: avoid exposure to others until fever free for 24 hours without fever reducing medication. An additional 5 days of limiting contact can include covering coughs/masking, social distance, and hand hygiene. Jatin Herrera MD History and Record Review Clinical information obtained from an independent historian. History obtained from or confirmed by: other (see comments) (prison caregiver). Differential Diagnoses - Viral URI with asthma exacerbation is more likely for the following reason(s): suggested by HANDP - Pneumonia is less likely for the following reason(s): No focal lung abnormality Procedures [facility] 09-12-2024 History of Presen t illness N[facility]ative [facility] Todd is a 28 year old male. Patient presents with: Cough: Cough and ST x 3 days Patient presents with 3 days of illness accompanied by his long-term caregiver. He has had sore throat, fatigue, and cough. He reports shortness of breath but has not requested his inhaler. Denies headache, fever, chills, nasal congestion, rhinorrhea. His housemate has pneumonia (negative for COVID, little contact with him). Cough Review of Systems Respiratory: Positive for cough. Objective BP 122/80 Pulse 90 Temp 36.5 C (97.7 F) (Tympanic) Resp 16 Wt 129.7 kg (285 lb 15 oz) SpO2 99% BMI 41.03 kg/m Physical Exam Constitutional: General: He is not in acute distress. Appearance: He is not ill-appearing. HENT: Right Ear: Tympanic membrane and ear canal normal. Left Ear: Tympanic membrane and ear canal normal. Nose: Congestion present. Eyes: Extraocular Movements: Extraocular movements intact. Conjunctiva/sclera: Conjunctivae normal. Pupils: Pupils are equal, round, and reactive to light. Cardiovascular: Rate and Rhythm: Normal rate and regular rhythm. Heart sounds: No murmur heard. Pulmonary: Effort: No respiratory distress. Breath sounds: Wheezing (Bilateral diffuse) present. No rhonchi or rales. Musculoskeletal: Cervical back: Neck supple. Tenderness present. Lymphadenopathy: Cervical: No cervical adenopathy. Neurological: Mental Status: He is alert. {ASSESSMENT/PLAN: 1. Sore throat - ICD9: 462, ICD10: J02.9 - STREP A MOLECULAR (POC) - negative. - suspect viral URI - Supportive care treatment with rest, cold medicine, and analgesia. - Viral URI contagiousness recommendations: avoid exposure to others until fever free for 24 hours without fever reducing medication. An additional 5 days of limiting contact can include covering coughs/masking, social distance, and hand hygiene. Jatin Herrera MD History and Record Review Clinical information obtained from an independent historian. History obtained from or confirmed by: other (see comments) (prison caregiver). Differential Diagnoses - Viral URI with asthma exacerbation is more likely for the following reason(s): suggested by H&P - Pneumonia is less likely for the following reason(s): No focal lung abnormality Procedures documented in this encounter [facility] 08-28-2024 Instructions Fern Solares - 08/28/2024 1:17 PM EDT Ok to hold on cream if the feet are no longer dry Fern Solares DPM documented in this encounter [facility] 08-28-2024 Note HNO ID: [id number] Author: FERN SOLARES, ? Service: ? Author Type: Physician Type: Progress Notes Filed: 08/28/2024 13:21 Note Text: Subjective: Patient presents to clinic c/o painful toenails. They state that the nails are especially painful with shoe gear and pressure. Patient states that nails right 3rd toenails is painful. No other pedal complaints at this time. Patient states no change in medications or medical history since last visit. Objective: Patient presents to clinic ambulating in sneakers Vasc: DP and PT pulses are palpable bilateral. CFT is less than 5 seconds bilateral. Skin temperature is warm to cool proximal to distal bilateral. There is no edema or varicosities noted. Neuro: Protective sensation is intact to the foot and toes when tested with the 5.07 SWM bilateral. Vibratory sensation is decreased at the hallux IPJ bilateral. The hallux is downgoing bilateral. Derm: Nails 2-5 b/l are discolored-yellow, thick, crumbly, dystrophic and with subungal debris. Skin is of normal turgor, texture and hair growth is present bilateral. There are no hyperkeratosis, ulcerations, scars, verruca or other lesions noted. Ortho: Muscle strength is 5/5 for all pedal groups tested. Ankle joint DF is full with the knee extended with no pain or crepitus noted. 1st MPJ ROM is full bilateral. Assessment: (B35.1) Onychomycosis (primary encounter diagnosis) (M79.674) Pain in toe of right foot Plan: Patient was seen and evaluated. Nails 2-5 bilateral were debrided in length and thickness. I do feel if patient keeps his nails cut short, his nails likely won't cause him pain. If pain were present, he could consider nail removal. Fern Solares DPM [facility] 08-28-2024 History of Presen t illness Narrative Subjective: Patient presents to clinic c/o painful toenails. They state that the nails are especially painful with shoe gear and pressure. Patient states that nails right 3rd toenails is painful. No other pedal complaints at this time. Patient states no change in medications or medical history since last visit. Objective: [facility] Vasc: DP and PT pulses are palpable bilateral. CFT is less than 5 seconds bilateral. Skin temperature is warm to cool proximal to distal bilateral. There is no edema or varicosities noted. Neuro: Protective sensation is intact to the foot and toes when tested with the 5.07 SWM bilateral. Vibratory sensation is decreased at the hallux IPJ bilateral. The hallux is downgoing bilateral. Derm: Nails 2-5 b/l are discolored-yellow, thick, crumbly, dystrophic and with subungal debris. Skin is of normal turgor, texture and hair growth is present bilateral. There are no hyperkeratosis, ulcerations, scars, verruca or other lesions noted. Ortho: Muscle strength is 5/5 for all pedal groups tested. Ankle joint DF is full with the knee extended with no pain or crepitus noted. 1st MPJ ROM is full bilateral. Assessment: (B35.1) Onychomycosis (primary encounter diagnosis) (M79.674) Pain in toe of right foot Plan: Patient was seen and evaluated. Nails 2-5 bilateral were debrided in length and thickness. I do feel if patient keeps his nails cut short, his nails likely won't cause him pain. If pain were present, he could consider nail removal. Fern Solares DPM AMB ROOMING INTAKE FLOWSHEET DATA Risk Screening Do you have concerns about personal safety or safety in the home?: No Patient presents with: Left Foot - Established Patient, nail care Right Foot - Established Patient, nail care Nadia Eaton LPN documented in this encounter [facility] 08-28-2024 Note HNO ID: [id number] Author: NADIA EATON LPN Service: ? Author Type: LICENSED NURSE Type: Progress Notes Filed: 08/28/2024 13:21 Note Text: AMB ROOMING INTAKE FLOWSHEET DATA Risk Screening Do you have concerns about personal safety or safety in the home?: No Patient presents with: Left Foot - Established Patient, nail care Right Foot - Established Patient, nail care Nadia Eaton LPN [facility] 06-26-2024 Telephone encounter Note TC to pt. Left a detailed message on a secure line with updates. Tabatha Nicholson LPN [facility] 06-26-2024 Miscellaneous Notes TC to pt. Left a detailed message on a secure line with updates. Tabatha Nicholson LPN ----- Message from Francy Mittal APRN.NON DESTRUCTIVE TESTING TECHNICIAN sent at 06/26/2024 7:46 AM EDT ----- Negative. Please let caregiver (Dianna) know. Francy Mittal APRN.NON DESTRUCTIVE TESTING TECHNICIAN ----- Message from Francy Mittal APRN.CASTRO sent at 06/26/2024 7:46 AM EDT ----- Negative. Please let caregiver (Dianna) know. Francy Mittal APRN.NON DESTRUCTIVE TESTING TECHNICIAN documented in this encounter [facility] 06-26-2024 Telephone encounter Note ----- Message from Francy Mittal APRN.CASTRO sent at 06/26/2024 7:46 AM EDT ----- Negative. Please let caregiver (Dianna) know. Francy Mittal APRN.NON DESTRUCTIVE TESTING TECHNICIAN [facility] 06-26-2024 Telephone encounter Note ----- Message from Francy Mittal APRN.CASTRO sent at 06/26/2024 7:46 AM EDT ----- Negative. Please let caregiver (Dianna) know. Francy Mittal APRN.NON DESTRUCTIVE TESTING TECHNICIAN [facility] 06-25-2024 Note HNO ID: [id number] Author: FRANCY MITTAL APRN.CNP Service: ? Author Type: Nurse Practitioner Type: Progress Notes Filed: 06/25/2024 19:40 Note Text: This is a 28 year old male who presents today with: Levy is a 28-year-old male presenting with a dry, hacking cough, sore throat, and rhinorrhea since . HISTORY OF PRESENT ILLNESS: Upper Respiratory Symptoms: - Onset of symptoms began on . - Dry, hacking cough; denies productive cough. - Sore throat. - Rhinorrhea without discoloration. - Denies fever, headache, ear pain, nausea, emesis, or diarrhea. - Occasionally feels postnasal drip. - No current medications for symptom relief. Presents with caregiver, Dianna. Pt lives in a long-term. Caregiver reports that she feels this is more allergies, as patient has been participating in normal activities without s/s of fatigue/illness. 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 mom lost 6 before him. premature labor. delivered emergency because cord wrapped around his neck. born 8 lbs. went home with mom. [...] Hcl] MEDICATIONS Current Outpatient Medications Medication Sig fluticasone (FLONASE ALLERGY RELIEF) 50 mcg/actuation nasal spray Use 2 sprays in each nostril once daily. loratadine (CLARITIN) 10 mg tablet Take 1 tablet by mouth once daily. lithium carbonate (ESKALITH) 300 mg capsule Take 1 capsule by mouth daily with breakfast. lithium carbonate 600 mg capsule Take 600 mg by mouth daily at bedtime. gabapentin (NEURONTIN) 300 mg capsule Take 300 mg by mouth two times a day. paliperidone ER (INVEGA) 3 mg 24 hr tablet Take 3 mg by mouth once daily. acetaminophen (TYLENOL EXTRA STRENGTH) 500 mg tablet Take 2 tablets by mouth every 6 hours as needed for pain. omeprazole (PRILOSEC) 40 mg capsule Take 1 capsule by mouth once daily. albuterol HFA (PROAIR HFA) 90 mcg/actuation inhaler Inhale 2 Puffs as instructed every 6 hours as needed. lamoTRIgine (LAMICTAL) 200 mg tablet Take 1 tablet by mouth two times a day. sertraline (ZOLOFT) 100 mg tablet Take 100 mg by mouth once daily. No current facility-administered medications for this [...] Never Smokeless tobacco: Never Vaping Use Vaping status: Never Used Substance Use Topics Alcohol use: Never Drug use: Never REVIEW OF SYSTEMS Constitutional: (-) fever Head: (-) headache Ears/Nose/Mouth/Throat: (+) sore throat, (-) ear pain, (+) congestion Respiratory: (+) cough Gastrointestinal: (-) nausea, (-) vomiting, (-) diarrhea EXAM: BP 134/72 Pulse 74 Resp 16 SpO2 97% PHYSICAL EXAM: General Appearance: Well appearing, alert, in no acute distress, well-hydrated, well nourished.. Skin: Skin color, texture, turgor normal, no suspicious rashes or lesions. Head: Normocephalic, no masses, lesions, tenderness or abnormalities. Eyes: Anicteric sclera. Pupils are equally round and reactive to light. Extraocular movements are intact. . Ears: External ears normal, canals clear. Normal TMs bilaterally. Oropharynx: Lips, mucosa, and tongue normal, teeth and gums normal, oropharynx normal. + PND. Neck: Supple, no adenopathy; thyroid symmetric, normal size, no bruits. Lungs: Lungs clear to auscultation. No wheezing, rhonchi, rales.. Heart: RRR without murmur, gallop, or ru (more content not included)... [facility] 06-25-2024 History of Presen t illness Narrative This is a 28 year old male who presents today with: Levy is a 28-year-old male presenting with a dry, hacking cough, sore throat, and rhinorrhea since . HISTORY OF PRESENT ILLNESS: Upper Respiratory Symptoms: - Onset of symptoms began on . - Dry, hacking cough; denies productive cough. - Sore throat. - Rhinorrhea without discoloration. - Denies fever, headache, ear pain, nausea, emesis, or diarrhea. - Occasionally feels postnasal drip. - No current medications for symptom relief. Presents with caregiver, Dianna. Pt lives in a long-term. Caregiver reports that she feels this is more allergies, as patient has been participating in normal activities without s/s of fatigue/illness. 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 mom lost 6 before him. premature labor. delivered emergency because cord wrapped around his neck. born 8 lbs. went home with mom. [...] Hcl] MEDICATIONS Current Outpatient Medications Medication Sig fluticasone (FLONASE ALLERGY RELIEF) 50 mcg/actuation nasal spray Use 2 sprays in each nostril once daily. loratadine (CLARITIN) 10 mg tablet Take 1 tablet by mouth once daily. lithium carbonate (ESKALITH) 300 mg capsule Take 1 capsule by mouth daily with breakfast. lithium carbonate 600 mg capsule Take 600 mg by mouth daily at bedtime. gabapentin (NEURONTIN) 300 mg capsule Take 300 mg by mouth two times a day. paliperidone ER (INVEGA) 3 mg 24 hr tablet Take 3 mg by mouth once daily. acetaminophen (TYLENOL EXTRA STRENGTH) 500 mg tablet Take 2 tablets by mouth every 6 hours as needed for pain. omeprazole (PRILOSEC) 40 mg capsule Take 1 capsule by mouth once daily. albuterol HFA (PROAIR HFA) 90 mcg/actuation inhaler Inhale 2 Puffs as instructed every 6 hours as needed. lamoTRIgine (LAMICTAL) 200 mg tablet Take 1 tablet by mouth two times a day. sertraline (ZOLOFT) 100 mg tablet Take 100 mg by mouth once daily. No current facility-administered medications for this [...] Never Smokeless tobacco: Never Vaping Use Vaping status: Never Used Substance Use Topics Alcohol use: Never Drug use: Never REVIEW OF SYSTEMS Constitutional: (-) fever Head: (-) headache Ears/Nose/Mouth/Throat: (+) sore throat, (-) ear pain, (+) congestion Respiratory: (+) cough Gastrointestinal: (-) nausea, (-) vomiting, (-) diarrhea EXAM: BP 134/72 Pulse 74 Resp 16 SpO2 97% PHYSICAL EXAM: General Appearance: Well appearing, alert, in no acute distress, well-hydrated, well nourished.. Skin: Skin color, texture, turgor normal, no suspicious rashes or lesions. Head: Normocephalic, no masses, lesions, tenderness or abnormalities. Eyes: Anicteric sclera. Pupils are equally round and reactive to light. Extraocular movements are intact. . Ears: External ears normal, canals clear. Normal TMs bilaterally. Oropharynx: Lips, mucosa, and tongue normal, teeth and gums normal, oropharynx normal. + PND. Neck: Supple, no adenopathy; thyroid symmetric, normal size, no bruits. Lungs: Lungs clear to auscultation. No wheezing, rhonchi, rales.. Heart: RRR without murmur, gallop, or rubs. No ectopy. Neurologic: Gait normal. ASSESSMENT/PLAN 1. Seasonal allergies (J30.2) 2. Nasal congestion (R09.81) 3. Sore throat (J02.9) 4. Acute upper respiratory infection, unspecified (J06.9) - Onset of symptoms began , including sore throat, dry hacking cough, and nasal congestion without fever, headache, or otalgia. No purulent nasal discharge or productive cough noted. Physical examination reveals postnasal drip. - Differential diagnosis includes seasonal allergies and acute upper respiratory infection. - Ordered rapid strep test; results negative. - Ordered COVID-19, influenza, and RSV swabs; results expected overnight. - Initiated Loratadine 10 mg orally once daily. - Initiated Fluticasone nasal spray, 2 sprays in each nostril once daily. - Advised to monitor symptoms and report any worsening or lack of improvement. - Follow-up if symptoms persist or worsen. Discussed treatment plan and patient voices understanding. Patient's questions answered appropriately. Medications and potential side effects were discussed and patient voices understanding. Return to the office as scheduled or as needed for worsening/no improvement. Francy Mittal APRN.NON DESTRUCTIVE TESTING TECHNICIAN Recording using [employer] software for draft documentation of the visit was discussed with the patient/authorized education courses sales representative; all questions welcomed and answered. Patient/authorized education courses sales representative agreed to proceed documented in this encounter [facility] 06-25-2024 Note HNO ID: [id number] Author: DEDE ALEGRIA RN Service: ? Author Type: Registered Nurse Type: Progress Notes Filed: 06/25/2024 12:20 Note Text: Value Based Care Coordination Chart Review Provider Action / FYI: Upon review of patient chart, the patient is excluded from Chronic Disease Management Patient is not a candidate for CDM at this time and placed in the following status: Cancelled Action taken: No action needed . Dede Alegria RN June 25, 2024 12:20 PM [facility] 06-25-2024 Note SARS-COV-2 (AGENT OF COVID-19) RNA: Not detected INFLUENZA A RNA: Not detected INFLUENZA B RNA: Not detected RESPIRATORY SYNCYTIAL VIRUS (RSV) RNA: Not detected [facility] Comment on above: Performed By: #### [id number] ####[facility] LABCLIA [id number] [address] OF [facility] 06-25-2024 Instructions Francy Mittal APRN.CASTRO - 06/25/2024 10:54 AM EDT Start taking Claritin once a day as directed to help with allergy symptoms. Use Flonase nose spray with 2 sprays in each nostril once a day. A strep swab test was performed in the office; a COVID/flu/RSV swab was also done, If your symptoms worsen or you do not start feeling better, please call our office. documented in this encounter [facility] 06-25-2024 Note Patient Outreach ([facility]) LEVY TODD ([id number]) 1995 M Date Time Provider Department 06/25/24 DEDE ALEGRIA During your visit today, we recorded the following information about you: Dede Alegria RN 06/25/2024 12:20 PM Signed Value Based Care Coordination Chart Review Provider Action / FYI: Upon review of patient chart, the patient is excluded from Chronic Disease Management Patient is not a candidate for CDM at this time and placed in the following status: Cancelled Action taken: No action needed . Dede Alegria RN June 25, 2024 12:20 PM Allergies As of Date: 06/25/2024 Noted Allergy Reaction CONCERTA (METHYLPHENIDATE ANALOGU*07/08/2014 1 - Mental Status Change Comments: hyper DEPAKOTE (DIVALPROEX) 07/08/2020 5 - Intolerance PHENOBARBITAL 01/08/2005 5 - Intolerance RITALIN (METHYLPHENIDATE HCL) 01/08/2005 5 - Intolerance Comments: hyper Date Reviewed: 06/25/2024 Reviewed by: Mike Wilkinson LPN - Fully Assessed Reason for Visit: Integration Specialist- Other [[id number]] Cmt: Chart Review Prescriptions as of 06/25/2024 - fluticasone (FLONASE ALLERGY RELIEF) 50 mcg/actuation nasal spray Use 2 sprays in each nostril once daily. - loratadine (CLARITIN) 10 mg tablet Take 1 tablet by mouth once daily. - lithium carbonate (ESKALITH) 300 mg capsule Take 1 capsule by mouth daily with breakfast. - lithium carbonate 600 mg capsule Take 600 mg by mouth daily at bedtime. - gabapentin (NEURONTIN) 300 mg capsule Take 300 mg by mouth two times a day. - paliperidone ER (INVEGA) 3 mg 24 hr tablet Take 3 mg by mouth once daily. - acetaminophen (TYLENOL EXTRA STRENGTH) 500 mg tablet Take 2 tablets by mouth every 6 hours as needed for pain. - omeprazole (PRILOSEC) 40 mg capsule Take 1 capsule by mouth once daily. - albuterol HFA (PROAIR HFA) 90 mcg/actuation inhaler Inhale 2 Puffs as instructed every 6 hours as needed. - lamoTRIgine (LAMICTAL) 200 mg tablet Take 1 tablet by mouth two times a day. - sertraline (ZOLOFT) 100 mg tablet Take 100 mg by mouth once daily. Problem List As Of Date 06/25/2024 Noted Resolved Other selective immunoglobulin deficiencies [D8* 02/27/2024 PMH - PAST MEDICAL HISTORY OF Convulsions in [P90] 10/02/2015 Attention deficit hyperactivity disorder (ADHD)* Ingrowing nail [L60.0] 01/08/2005 10/02/2015 Pain in limb [M79.609] 01/08/2005 10/02/2015 Onychia and paronychia of toe [L03.039] 04/15/2005 10/02/2015 Exostosis of unspecified site [M89.8X9] 05/31/2005 10/02/2015 Abnormality of gait [R26.9] 06/22/2005 10/02/2015 Abdominal pain, epigastric [R10.13] 10/13/2006 10/02/2015 Abdominal pain, generalized [R10.84] 10/13/2006 10/02/2015 Epilepsy (HCC) [G40.909] 04/09/2015 10/02/2015 Psychogenic nonepileptic seizure [F44.5] 10/02/2015 Asperger's syndrome [F84.5] 10/02/2015 Morbid obesity (HCC) [E66.01] 01/30/2016 02/27/2024 GERD (gastroesophageal reflux disease) [K21.9] 01/30/2016 Mild intermittent asthma without complication [*01/30/2016 Neck pain [M54.2] 07/26/2018 Contusion of right knee [S80.01XA] 07/26/2018 04/10/2024 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 Author Type: Physician Type: Progress Notes Filed: 04/10/2024 10:06 Note Text: Patient presents with: Follow Up HPI: Patient presents today for office visit for follow up. Follows with psych. Psych meds have been changed. Doing better. No longer hearing voices or experiencing hallucinations. 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 Has some complaints today of mid-back pain. Ongoing last couple of days. No injury. 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 No trauma. No radicular pain. Refers to pain being directly on the spine. Pain makes it difficult for him to sleep. No shortness of breath or cough or chest pain. Had not mentioned pain until now. Has tylenol ordered prn but did not mention it until today. No heartburn. No issues with meds. MEDICATIONS: Current Outpatient Medications Medication Sig lithium carbonate 600 mg capsule Take 600 mg by mouth daily at bedtime. gabapentin (NEURONTIN) 300 mg capsule Take 300 mg by mouth two times a day. paliperidone ER (INVEGA) 3 mg 24 hr tablet Take 3 mg by mouth once daily. acetaminophen (TYLENOL EXTRA STRENGTH) 500 mg tablet Take 2 tablets by mouth every 6 hours as needed for pain. omeprazole (PRILOSEC) 40 mg capsule Take 1 capsule by mouth once daily. albuterol HFA (PROAIR HFA) 90 mcg/actuation inhaler Inhale 2 Puffs as instructed every 6 hours as needed. lithium carbonate (ESKALITH) 300 mg capsule Take 2 capsules by mouth two times a day. (Patient taking differently: Take 300 mg by mouth every morning.) lamoTRIgine (LAMICTAL) 200 mg tablet Take 1 tablet by mouth two times a day. sertraline (ZOLOFT) 100 mg tablet Take 100 mg by mouth once daily. No current facility-administered medications for this visit. ALLERGIES: ALLERGIES Allergen Reactions Concerta [Methylphe* Mental Status Change hyper Depakote [Divalproe* Intolerance Phenobarbital Intolerance Ritalin [...] delivered emergency because cord wrapped around his neck. born 8 lbs. went home with mom. [...] Never Smokeless tobacco: Never Vaping Use Vaping status: Never Used Substance Use Topics Alcohol use: Never Drug use: Never Reviewed current medications, allergies, past medical history, surgical history, family history and social history today. REVIEW OF SYSTEMS No cough or wheezing. All other reviewed and negative other than HPI. HEALTH MAINTENANCE: Reviewed health maintenance issues today and recommended the following in detail. There are no preventive care reminders to display for this patient. VITALS: BP 96/54 Pulse 86 Ht 177.8 cm (5' 10) Wt (!) 137.9 kg (304 lb) SpO2 96% BMI 43.62 kg/m? Weight is down. They are working on the diet. Last 4 Encounter Wt Readings: Date: Wt: 04/10/2024 137.9 kg (304 lb) 02/27/2024 142.2 kg (313 lb 9.6 oz) 01/18/2024 148.5 kg (327 lb 6.1 oz) 12/02/2023 146.5 kg (323 lb) PHYSICAL EXAMINATION: General appearance: Well appearing, alert, in no acute distress, well-hydrated, well nourished. Skin: Skin color, texture, turgor normal, no suspicious rashes or lesions Head: Normocephalic, no masses, lesions, tenderness or abnormalities Lungs: Lungs clear to auscultation. No whe (more content not included)... [facility] 04-10-2024 History of Presen t illness Narrative Patient presents with: Follow Up HPI: Patient presents today for office visit for follow up. Follows with psych. Psych meds have been changed. Doing better. No longer hearing voices or experiencing hallucinations. 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 Has some complaints today of mid-back pain. Ongoing last couple of days. No injury. 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 No trauma. No radicular pain. Refers to pain being directly on the spine. Pain makes it difficult for him to sleep. No shortness of breath or cough or chest pain. Had not mentioned pain until now. Has tylenol ordered prn but did not mention it until today. No heartburn. No issues with meds. MEDICATIONS: Current Outpatient Medications Medication Sig lithium carbonate 600 mg capsule Take 600 mg by mouth daily at bedtime. gabapentin (NEURONTIN) 300 mg capsule Take 300 mg by mouth two times a day. paliperidone ER (INVEGA) 3 mg 24 hr tablet Take 3 mg by mouth once daily. acetaminophen (TYLENOL EXTRA STRENGTH) 500 mg tablet Take 2 tablets by mouth every 6 hours as needed for pain. omeprazole (PRILOSEC) 40 mg capsule Take 1 capsule by mouth once daily. albuterol HFA (PROAIR HFA) 90 mcg/actuation inhaler Inhale 2 Puffs as instructed every 6 hours as needed. lithium carbonate (ESKALITH) 300 mg capsule Take 2 capsules by mouth two times a day. (Patient taking differently: Take 300 mg by mouth every morning.) lamoTRIgine (LAMICTAL) 200 mg tablet Take 1 tablet by mouth two times a day. sertraline (ZOLOFT) 100 mg tablet Take 100 mg by mouth once daily. No current facility-administered medications for this visit. ALLERGIES: ALLERGIES Allergen Reactions Concerta [Methylphe* Mental Status Change hyper Depakote [Divalproe* Intolerance Phenobarbital Intolerance Ritalin [...] delivered emergency because cord wrapped around his neck. born 8 lbs. went home with mom. [...] Never Smokeless tobacco: Never Vaping Use Vaping status: Never Used Substance Use Topics Alcohol use: Never Drug use: Never Reviewed current medications, allergies, past medical history, surgical history, family history and social history today. REVIEW OF SYSTEMS No cough or wheezing. All other reviewed and negative other than HPI. HEALTH MAINTENANCE: Reviewed health maintenance issues today and recommended the following in detail. There are no preventive care reminders to display for this patient. VITALS: BP 96/54 Pulse 86 Ht 177.8 cm (5' 10) Wt (!) 137.9 kg (304 lb) SpO2 96% BMI 43.62 kg/m Weight is down. They are working on the diet. Last 4 Encounter Wt Readings: Date: Wt: 04/10/2024 137.9 kg (304 lb) 02/27/2024 142.2 kg (313 lb 9.6 oz) 01/18/2024 148.5 kg (327 lb 6.1 oz) 12/02/2023 146.5 kg (323 lb) PHYSICAL EXAMINATION: General appearance: Well appearing, [...] clubbing or cyanosis. Good capillary refill. Musculoskeletal: No joint swelling, deformity, or tenderness Back shows superficial tenderness. ASSESSMENT/PLAN: 1. Partial agenesis of corpus callosum (HCC) - ICD9: 742.2, ICD10: Q04.0 (primary diagnosis) -stable. 2. Mild intermittent asthma without complication - ICD9: 493.90, ICD10: J45.20 - only rarely used his inhalers 3. Attention deficit hyperactivity disorder (ADHD), unspecified ADHD type - ICD9: 314.01, ICD10: F90.9 - doing well. 4. Psychogenic nonepileptic seizure - ICD9: 300.11, ICD10: F44.5 None reported recent 5. Schizoaffective disorder, bipolar type (HCC) - ICD9: 295.70, ICD10: F25.0 - stable 6. Asperger's syndrome - ICD9: 299.80, ICD10: F84.5 - stable. 7. Obesity, Class III, BMI >= 40 - ICD9: 278.01, ICD10: E66.01 - doing well. Continue to work on diet. 8. Acute midline thoracic back pain - ICD9: 724.1, ICD10: M54.6 - ice and tylenol prn. Call if symptoms worsen at all or if not better in one to two weeks Red flags for re-assessment reviewed with patient in detail. Turner Bundy MD documented in this encounter [facility] 03-27-2024 Telephone encounter Note The patient has been identified by name and date of : Yes Caregiver verified no other encounters exist for this prescription request: Yes Caregiver confirmed with patient/requestor that no other refills are due, in the near future, with this provider at this time: Yes The last office visit in the department: 02/27/2024 Does the patient have a future office visit with this provider/department: Yes 04/10/2024 Requested Prescriptions Pending Prescriptions Disp Refills dicyclomine (BENTYL) 10 mg capsule 120 capsule 2 Sig: Take 1 capsule by mouth before meals and at bedtime. Danika Johnson RN [facility] 03-27-2024 Miscellaneous Notes The patient has been identified by name and date of : Yes Caregiver verified no other encounters exist for this prescription request: Yes Caregiver confirmed with patient/requestor that no other refills are due, in the near future, with this provider at this time: Yes The last office visit in the department: 02/27/2024 Does the patient have a future office visit with this provider/department: Yes 04/10/2024 Requested Prescriptions Pending Prescriptions Disp Refills dicyclomine (BENTYL) 10 mg capsule 120 capsule 2 Sig: Take 1 capsule by mouth before meals and at bedtime. Danika Johnson RN documented in this encounter [facility] 02-27-2024 Note HNO ID: [id number] Author: TURNER BUNDY MD Service: ? Author Type: Physician Type: Progress Notes Filed: 02/27/2024 11:39 Note Text: Patient presents with: Hospital F/U HPI: Patient presents today for office visit for hospital follow up. Here today with supervisor [employer] Dianna Parker. HOSPITAL/ER FOLLOW UP: Reason for visit: Hearing voices, hallucinations and suicidal ideation after receiving Invega injection. Which facility: Started at [facility] and transferred to [facility]. Date of visit: 01/03/24 to 01/13/24 Diagnosis: Schizoaffective disorder Testing done: CT brain due to fall in hospital. Labs. Treatment given: Med changes. Now on Invega pill form. Current symptoms: Still hearing voices. States not as bad as they were. Denies hallucinations at this time. No suicidal ideation. No thoughts of harming others. Is back to his baseline due to accompanying staff. Sees psychiatry regularly. While here today complains of an ongoing cough X 1 week. Started out with a sore throat that progressed into a cough. Sore throat has gone away. Cough is dry. Now with headache. No nausea or vomiting. Has sinus pressure. MEDICATIONS: Current Outpatient Medications Medication Sig gabapentin (NEURONTIN) 300 mg capsule Take 300 mg by mouth two times a day. mirtazapine (REMERON) 15 mg tablet Take 15 mg by mouth once daily. paliperidone ER (INVEGA) 3 mg 24 hr tablet Take 3 mg by mouth once daily. acetaminophen (TYLENOL EXTRA STRENGTH) 500 mg tablet Take 2 tablets by mouth every 6 hours as needed for pain. omeprazole (PRILOSEC) 40 mg capsule Take 1 capsule by mouth once daily. albuterol HFA (PROAIR HFA) 90 mcg/actuation inhaler Inhale 2 Puffs as instructed every 6 hours as needed. benztropine (COGENTIN) 0.5 mg tablet Take 1 tablet by mouth two times a day. lithium carbonate (ESKALITH) 300 mg capsule Take 2 capsules by mouth two times a day. lamoTRIgine (LAMICTAL) 200 mg tablet Take 1 tablet by mouth two times a day. budesonide (PULMICORT FLEXHALER) 90 mcg/actuation aepb Inhale 2 Puffs as instructed two times a day. urea (CARMOL) 40 % Apply to affected area once daily. sertraline (ZOLOFT) 100 mg tablet Take 100 mg by mouth once daily. predniSONE (DELTASONE) 10 mg tablet Take 4 tabs daily for 3 days, then 2 tabs daily for 3 days, then 1 tab daily for 3 days with food. (Patient not taking: Reported on 02/27/2024) dicyclomine (BENTYL) 10 mg capsule Take 1 capsule by mouth before meals and at bedtime. (Patient not taking: Reported on 02/27/2024) lactase (LACTAID) 3,000 unit tablet Take 1 tablet by mouth three times a day with meals. (Patient not taking: Reported on 02/27/2024) lidocaine (LIDODERM) 5 % Apply 1 Patch as directed every 12 hours. Remove old patch prior to placing new patch. Location: left leg (Patient not taking: Reported on 02/27/2024) diclofenac (VOLTAREN ARTHRITIS PAIN) 1 % topical gel Apply 2 g to affected area four times daily. (Patient not taking: Reported on 02/27/2024) Cholecalciferol, Vitamin D3, 50 mcg (2,000 unit) cap Take 1 capsule by mouth once daily. (Patient not taking: Reported on 02/27/2024) hydrOXYzine pamoate (VISTARIL) 25 mg capsule Take 1 capsule by mouth three times a day as needed. (Patient not taking: Reported on 02/27/2024) paliperidone palm, 3 month, (INVEGA TRINZA) 819 mg/2.63 mL syrg To be given at office (Patient not taking: Reported on 02/27/2024) risperiDONE (RISPERDAL) 0.5 mg tablet Take 3 tablets by mouth two times a day. triamcinolone acetonide (KENALOG) 0.1 % ointment Apply to affected area two times a day. (Patient not taking: Reported on 02/27/2024) fluticasone (FLONASE) 50 mcg/actuation nasal spray Use 2 Sprays in each nostril once daily. Rinse mouth after use. (Patient not taking: Reported on 02/27/2024) ondansetron orally disintegrating (ZOFRAN ODT) 4 mg disintegrating tablet Take 1 tablet by mouth every 8 hours as needed for Nausea/Vomiting. (Patient not taking: Reported on 02/27/2024) No current facility-administered medications for this visit. ALLERGIES: ALLERGIES Allergen Reactions Concerta [Methylphe* Mental Status Change hyper Depakote [Divalproe* Intolerance Phenobarbital Intolerance Ritalin [...] delivered emergency because cord wrapped around his neck. born 8 lbs. went home with mom. PMH - PAST MEDICAL HISTORY OF (more content not included)... [facility] 02-27-2024 History of Presen t illness Narrative Patient presents with: Hospital F/U HPI: Patient presents today for office visit for hospital follow up. Here today with supervisor [employer] Dianna Parker. HOSPITAL/ER FOLLOW UP: Reason for visit: Hearing voices, hallucinations and suicidal ideation after receiving Invega injection. Which facility: Started at [facility] and transferred to [facility]. Date of visit: 01/03/24 to 01/13/24 Diagnosis: Schizoaffective disorder Testing done: CT brain due to fall in hospital. Labs. Treatment given: Med changes. Now on Invega pill form. Current symptoms: Still hearing voices. States not as bad as they were. Denies hallucinations at this time. No suicidal ideation. No thoughts of harming others. Is back to his baseline due to accompanying staff. Sees psychiatry regularly. While here today complains of an ongoing cough X 1 week. Started out with a sore throat that progressed into a cough. Sore throat has gone away. Cough is dry. Now with headache. No nausea or vomiting. Has sinus pressure. MEDICATIONS: Current Outpatient Medications Medication Sig gabapentin (NEURONTIN) 300 mg capsule Take 300 mg by mouth two times a day. mirtazapine (REMERON) 15 mg tablet Take 15 mg by mouth once daily. paliperidone ER (INVEGA) 3 mg 24 hr tablet Take 3 mg by mouth once daily. acetaminophen (TYLENOL EXTRA STRENGTH) 500 mg tablet Take 2 tablets by mouth every 6 hours as needed for pain. omeprazole (PRILOSEC) 40 mg capsule Take 1 capsule by mouth once daily. albuterol HFA (PROAIR HFA) 90 mcg/actuation inhaler Inhale 2 Puffs as instructed every 6 hours as needed. benztropine (COGENTIN) 0.5 mg tablet Take 1 tablet by mouth two times a day. lithium carbonate (ESKALITH) 300 mg capsule Take 2 capsules by mouth two times a day. lamoTRIgine (LAMICTAL) 200 mg tablet Take 1 tablet by mouth two times a day. budesonide (PULMICORT FLEXHALER) 90 mcg/actuation aepb Inhale 2 Puffs as instructed two times a day. urea (CARMOL) 40 % Apply to affected area once daily. sertraline (ZOLOFT) 100 mg tablet Take 100 mg by mouth once daily. predniSONE (DELTASONE) 10 mg tablet Take 4 tabs daily for 3 days, then 2 tabs daily for 3 days, then 1 tab daily for 3 days with food. (Patient not taking: Reported on 02/27/2024) dicyclomine (BENTYL) 10 mg capsule Take 1 capsule by mouth before meals and at bedtime. (Patient not taking: Reported on 02/27/2024) lactase (LACTAID) 3,000 unit tablet Take 1 tablet by mouth three times a day with meals. (Patient not taking: Reported on 02/27/2024) lidocaine (LIDODERM) 5 % Apply 1 Patch as directed every 12 hours. Remove old patch prior to placing new patch. Location: left leg (Patient not taking: Reported on 02/27/2024) diclofenac (VOLTAREN ARTHRITIS PAIN) 1 % topical gel Apply 2 g to affected area four times daily. (Patient not taking: Reported on 02/27/2024) Cholecalciferol, Vitamin D3, 50 mcg (2,000 unit) cap Take 1 capsule by mouth once daily. (Patient not taking: Reported on 02/27/2024) hydrOXYzine pamoate (VISTARIL) 25 mg capsule Take 1 capsule by mouth three times a day as needed. (Patient not taking: Reported on 02/27/2024) paliperidone palm, 3 month, (INVEGA TRINZA) 819 mg/2.63 mL syrg To be given at office (Patient not taking: Reported on 02/27/2024) risperiDONE (RISPERDAL) 0.5 mg tablet Take 3 tablets by mouth two times a day. triamcinolone acetonide (KENALOG) 0.1 % ointment Apply to affected area two times a day. (Patient not taking: Reported on 02/27/2024) fluticasone (FLONASE) 50 mcg/actuation nasal spray Use 2 Sprays in each nostril once daily. Rinse mouth after use. (Patient not taking: Reported on 02/27/2024) ondansetron orally disintegrating (ZOFRAN ODT) 4 mg disintegrating tablet Take 1 tablet by mouth every 8 hours as needed for Nausea/Vomiting. (Patient not taking: Reported on 02/27/2024) No current facility-administered medications for this visit. ALLERGIES: ALLERGIES Allergen Reactions Concerta [Methylphe* Mental Status Change hyper Depakote [Divalproe* Intolerance Phenobarbital Intolerance Ritalin [...] delivered emergency because cord wrapped around his neck. born 8 lbs. went home with mom. [...] Never Smokeless tobacco: Never Vaping Use Vaping status: Never Used Substance Use Topics Alcohol use: Never Drug use: Never Reviewed current medications, allergies, past medical history, surgical history, family history and social history today. REVIEW OF SYSTEMS All other reviewed and negative other than HPI. HEALTH MAINTENANCE: Reviewed health maintenance issues today and recommended the following in detail. There are no preventive care reminders to display for this patient. VITALS: BP 110/72 Pulse 85 Temp 36.8 C (98.2 F) Ht 177.8 cm (5' 10) Wt (!) 142.2 kg (313 lb 9.6 oz) SpO2 96% BMI 45.00 kg/m Last 4 Encounter Wt Readings: Date: Wt: 02/27/2024 142.2 kg (313 lb 9.6 oz) 01/18/2024 148.5 kg (327 lb 6.1 oz) 12/02/2023 146.5 kg (323 lb) 11/14/2023 146.5 kg (323 lb) PHYSICAL EXAMINATION: General appearance: Well appearing, alert, in no acute distress, well-hydrated, well nourished. Skin: Skin color, texture, turgor normal, no suspicious rashes or lesions Head: Facial tenderness over frontal sinuses Eyes: Anicteric sclera. Pupils are equally round and reactive to light. Extraocular movements are intact. Ears: External ears normal, canals clear Nose/Sinuses: Nares normal, septum midline, mucosa normal, no drainage or sinus tenderness Oropharynx: Lips, mucosa, and tongue normal, teeth and gums normal, oropharynx normal Neck: Supple, no adenopathy; th Lungs: Lungs clear to auscultation. No wheezing, rhonchi, rales Heart: RRR without murmur, gallop, or rubs. No ectopy Abdomen: Normal abdominal exam, Abdomen soft, non-tender. Bowel sounds normal. No masses, organomegaly Extremities: No deformities, edema, skin discoloration, clubbing or cyanosis. Good capillary refill. ASSESSMENT/PLAN: 1. Schizoaffective disorder, unspecified type (HCC) - ICD9: 295.70, ICD10: F25.9 (primary diagnosis) - continue meds. 2. Attention deficit hyperactivity disorder (ADHD), unspecified ADHD type - ICD9: 314.01, ICD10: F90.9 - continue meds. 3. Asperger's syndrome - ICD9: 299.80, ICD10: F84.5 - stable. 4. Mild intermittent asthma without complication - ICD9: 493.90, ICD10: J45.20 - doing well., 5. Acute non-recurrent frontal sinusitis - ICD9: 461.1, ICD10: J01.10 - Supportive care with plenty of fluids, rest, and analgesia prn. - Follow up in one week if symptoms persist or worsen. - AMOXICILLIN 875 MG TABLET Turner Bundy documented in this encounter [facility] 02-15-2024 Telephone encounter Note The patient has been identified by name and date of : Yes Caregiver verified no other encounters exist for this prescription request: Yes Caregiver confirmed with patient/requestor that no other refills are due, in the near future, with this provider at this time: Yes The last office visit in the department: 12/02/2023 Does the patient have a future office visit with this provider/department: Yes 02/27/2024 Requested Prescriptions Pending Prescriptions Disp Refills acetaminophen (TYLENOL EXTRA STRENGTH) 500 mg tablet 60 tablet 0 Sig: Take 2 tablets by mouth every 6 hours as needed for pain. Carey Cervantes RN February 15, 2024 8:37 AM [facility] 02-15-2024 Miscellaneous Notes The patient has been identified by name and date of : Yes Caregiver verified no other encounters exist for this prescription request: Yes Caregiver confirmed with patient/requestor that no other refills are due, in the near future, with this provider at this time: Yes The last office visit in the department: 12/02/2023 Does the patient have a future office visit with this provider/department: Yes 02/27/2024 Requested Prescriptions Pending Prescriptions Disp Refills acetaminophen (TYLENOL EXTRA STRENGTH) 500 mg tablet 60 tablet 0 Sig: Take 2 tablets by mouth every 6 hours as needed for pain. Carey Cervantes RN February 15, 2024 8:37 AM documented in this encounter [facility] 02-14-2024 Telephone encounter Note Patient omeprazole rx went to wrong pharmacy. Zarina does his medications. Reset rx to file to correct pharmacy. Please advise The patient has been identified by name and date of : Yes Caregiver verified no other encounters exist for this prescription request: Yes Caregiver confirmed with patient/requestor that no other refills are due, in the near future, with this provider at this time: Yes The last office visit in the department: 12/02/2023 Does the patient have a future office visit with this provider/department: Yes 03/21/2024 Requested Prescriptions Pending Prescriptions Disp Refills omeprazole (PRILOSEC) 40 mg capsule 90 capsule 3 Sig: Take 1 capsule by mouth once daily. Dianna will be calling to schedule hospital follow up appt, to get his meds updated. Karon Lane LPN February 14, 2024 12:53 PM [facility] 02-14-2024 Miscellaneous Notes Patient omeprazole rx went to wrong pharmacy. Zarina does his medications. Reset rx to file to correct pharmacy. Please advise The patient has been identified by name and date of : Yes Caregiver verified no other encounters exist for this prescription request: Yes Caregiver confirmed with patient/requestor that no other refills are due, in the near future, with this provider at this time: Yes The last office visit in the department: 12/02/2023 Does the patient have a future office visit with this provider/department: Yes 03/21/2024 Requested Prescriptions Pending Prescriptions Disp Refills omeprazole (PRILOSEC) 40 mg capsule 90 capsule 3 Sig: Take 1 capsule by mouth once daily. Dianna will be calling to schedule hospital follow up appt, to get his meds updated. Karon Lane LPN February 14, 2024 12:53 PM documented in this encounter [facility] 02-09-2024 Telephone encounter Note The patient has been identified by name and date of : Yes Caregiver verified no other encounters exist for this prescription request: Yes Caregiver confirmed with patient/requestor that no other refills are due, in the near future, with this provider at this time: Yes The last office visit in the department: 12/02/2023 Does the patient have a future office visit with this provider/department: Yes 03/21/2024 Requested Prescriptions Pending Prescriptions Disp Refills omeprazole (PRILOSEC) 40 mg capsule 90 capsule 3 Sig: Take 1 capsule by mouth once daily. Carey Cervantes RN February 09, 2024 9:55 AM [facility] 02-09-2024 Miscellaneous Notes The patient has been identified by name and date of : Yes Caregiver verified no other encounters exist for this prescription request: Yes Caregiver confirmed with patient/requestor that no other refills are due, in the near future, with this provider at this time: Yes The last office visit in the department: 12/02/2023 Does the patient have a future office visit with this provider/department: Yes 03/21/2024 Requested Prescriptions Pending Prescriptions Disp Refills omeprazole (PRILOSEC) 40 mg capsule 90 capsule 3 Sig: Take 1 capsule by mouth once daily. Carey Cervantes RN February 09, 2024 9:55 AM documented in this encounter [facility] 01-18-2024 History of Presen t illness Narrative Radiology Service Progress Note PATIENT NAME: Levy Todd DATE OF SERVICE: January 18, 2024 TIME: 9:28 AM PATIENT IDENTITY VERIFICATION COMPLETED USING TWO (2) IDENTIFIERS: Name and Date of confirmed by patient verbally. FALL SCREENING: Has the patient had 2 falls in the last year or 1 fall with injury or currently using an Ambulatory Assistive Device (Walker, Cane, Wheelchair, Crutches, etc.)? No PATIENT GENDER DATA: Male PATIENT RELEVANT IMPLANT DATA REVIEWED: Not Applicable PATIENT PRESENTS WITH AN IMPLANTABLE OR ATTACHED CHILDBIRTH EDUCATOR: No RADIOLOGY DEPARTMENT: General X-ray: Exam(s) Completed: Chest X-Ray PERIPHERAL IV DATA: Not applicable SIGNED BY: MELISA Garay) January 18, 2024 9:28 AM documented in this encounter [facility] 01-18-2024 Note HNO ID: [id number] Author: GIA GONZALES RT (R) Service: Radiology Author Type: Technologist Type: Progress Notes Filed: 01/18/2024 09:34 Note Text: Radiology Service Progress Note PATIENT NAME: Levy Todd DATE OF SERVICE: January 18, 2024 TIME: 9:28 AM PATIENT IDENTITY VERIFICATION COMPLETED USING TWO (2) IDENTIFIERS: Name and Date of confirmed by patient verbally. FALL SCREENING: Has the patient had 2 falls in the last year or 1 fall with injury or currently using an Ambulatory Assistive Device (Walker, Cane, Wheelchair, Crutches, etc.)? No PATIENT GENDER DATA: Male PATIENT RELEVANT IMPLANT DATA REVIEWED: Not Applicable PATIENT PRESENTS WITH AN IMPLANTABLE OR ATTACHED CHILDBIRTH EDUCATOR: No RADIOLOGY DEPARTMENT: General X-ray: Exam(s) Completed: Chest X-Ray PERIPHERAL IV DATA: Not applicable SIGNED BY: RT Jarrod(R) January 18, 2024 9:28 AM [facility] 01-18-2024 Note HNO ID: [id number] Author: JINA GAYLE APRN.NON DESTRUCTIVE TESTING TECHNICIAN Service: ? Author Type: Nurse Practitioner Type: Progress Notes Filed: 01/18/2024 10:23 Note Text: This note was created using NoteWriter. Subjective Levy Todd is a 28 year old male. 28 year old male with PMH asthma presents for illness. Acute onset yesterday + cough +chest congestion +wheezing +sore throat +nasal congestion Denies body aches Denies fatigue Denies N/V/D Denies body aches Denies fever Denies providing homeopathic or OTC Of note recently discharged [facility] patient Patient is accompanied by supervisor brew houseDianna The history is provided by the patient and a caregiver. No veterinary medicine scientist was used. Sore Throat This is a new problem. The current episode started yesterday. The problem has been unchanged. Neither side of throat is experiencing more pain than the other. There has been no fever. The pain is at a severity of 5/10. The pain is moderate. Associated symptoms include congestion, coughing and swollen glands. Pertinent negatives include no abdominal pain, diarrhea, drooling, ear discharge, ear pain, headaches, hoarse voice, plugged ear sensation, neck pain, shortness of breath, stridor, trouble swallowing or vomiting. He has had exposure to strep. He has had no exposure to mono. He has tried nothing for the symptoms. The treatment provided no relief. PAST MEDICAL HISTORY Diagnosis Date Acute cholecystitis [...] delivered emergency because cord wrapped around his neck. born 8 lbs. went home with mom. [...] [Methylphenidate Hcl] MEDICATIONS dicyclomine (BENTYL) 10 mg capsuleTake 1 capsule by mouth before meals and at bedtime.Disp: 120 capsuleRfl: 2 albuterol HFA (PROAIR HFA) 90 mcg/actuation inhalerInhale 2 Puffs as instructed every 6 hours as needed.Disp: 18 gRfl: 0 lactase (LACTAID) 3,000 unit tabletTake 1 tablet by mouth three times a day with meals.Disp: 90 tabletRfl: 11 lidocaine (LIDODERM) 5 %Apply 1 Patch as directed every 12 hours. Remove old patch prior to placing new patch. Location: left legDisp: 15 PatchRfl: 0 diclofenac (VOLTAREN ARTHRITIS PAIN) 1 % topical gelApply 2 g to affected area four times daily.Disp: 20 gRfl: 1 omeprazole (PRILOSEC) 40 mg capsuleTake 1 capsule by mouth once daily.Disp: 90 capsuleRfl: 3 Cholecalciferol, Vitamin D3, 50 mcg (2,000 unit) capTake 1 capsule by mouth once daily.Disp: 90 capsuleRfl: 3 benztropine (COGENTIN) 0.5 mg tabletTake 1 tablet by mouth two times a day.Disp: 30 tabletRfl: 2 hydrOXYzine pamoate (VISTARIL) 25 mg capsuleTake 1 capsule by mouth three times a day as needed.Disp: 30 capsuleRfl: 2 lithium carbonate (ESKALITH) 300 mg capsuleTake 2 capsules by mouth two times a day.Disp: 120 capsuleRfl: 5 paliperidone palm, 3 month, (INVEGA TRINZA) 819 mg/2.63 mL syrgTo be given at officeDisp: 1 EachRfl: 3 lamoTRIgine (LAMICTAL) 200 mg tabletTake 1 tablet by mouth two times a day.Disp: 60 tabletRfl: 11 risperiDONE (RISPERDAL) 0.5 mg tabletTake 3 tablets by mouth two times a day.Disp: 180 tabletRfl: 11 triamcinolone acetonide (KENALOG) 0.1 % ointmentApply to affected area two times a day.Disp: 15 gRfl: 0 budesonide (PULMICORT FLEXHALER) 90 mcg/actuation aepbInhale 2 Puffs as instructed two times a day.Disp: 1 EachRfl: 2 urea (CARMOL) 40 %Apply to affected area once daily.Disp: 198 gRfl: 11 fluticasone (FLONASE) 50 mcg/actuation nasal sprayUse 2 Sprays in each nostril once daily. Rinse mouth after use.Disp: 16 gRfl: 0 sertraline (ZOLOFT) 100 mg tabletTake 100 mg by mouth once daily.Disp: Rfl: ondansetron orally disintegrating (ZOFRAN ODT) 4 mg disintegrating tabletTake 1 tablet by mouth every 8 hours as needed for Nausea/Vomiting.Disp: 20 tabletRfl: 0 predniSONE (DELTASONE) 10 mg tabletTake 4 tabs daily for 3 days, then 2 tabs daily for 3 (more content not included)... [facility] 01-18-2024 History of Presen t illness Narrative This note was created using Ilink Systemsriter. Subjective Levy Todd is a 28 year old male. 28 year old male with PMH asthma presents for illness. Acute onset yesterday + cough +chest congestion +wheezing +sore throat +nasal congestion Denies body aches Denies fatigue Denies N/V/D Denies body aches Denies fever Denies providing homeopathic or OTC Of note recently discharged after inpatient stay at [facility] patient Patient is accompanied by supervisor brew houseDianna The history is provided by the patient and a caregiver. No veterinary medicine scientist was used. Sore Throat This is a new problem. The current episode started yesterday. The problem has been unchanged. Neither side of throat is experiencing more pain than the other. There has been no fever. The pain is at a severity of 5/10. The pain is moderate. Associated symptoms include congestion, coughing and swollen glands. Pertinent negatives include no abdominal pain, diarrhea, drooling, ear discharge, ear pain, headaches, hoarse voice, plugged ear sensation, neck pain, shortness of breath, stridor, trouble swallowing or vomiting. He has had exposure to strep. He has had no exposure to mono. He has tried nothing for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 Assisting Tech: Danis, Ximena, RPFT Spirometry w/BD: 1 LV - Gas: 1 [facility] 11-14-2023 History of Presen t illness Narrative PULM FUNCTION: Provider: Pamela Nieves APRN.CNP Assisting Tech: Petmateo, Ximena, RPFT Spirometry w/BD: 1 LV - Gas: 1 documented in this encounter [facility] 11-14-2023 Telephone encounter Note Additional message left for pt to call back. Pam Gray MA [facility] 11-11-2023 Telephone encounter Note Message left for pt to call back for results. Pam Gray MA [facility] 11-11-2023 Telephone encounter Note Please let patient know their xray is normal. [facility] 11-10-2023 History of Presen t illness Narrative Radiology Service Progress Note PATIENT NAME: Levy Todd DATE OF SERVICE: November 10, 2023 TIME: 2:36 PM PATIENT IDENTITY VERIFICATION COMPLETED USING TWO (2) IDENTIFIERS: Name and Date of confirmed by patient verbally. FALL SCREENING: Has the patient had 2 falls in the last year or 1 fall with injury or currently using an Ambulatory Assistive Device (Walker, Cane, Wheelchair, Crutches, etc.)? No PATIENT GENDER DATA: Male PATIENT RELEVANT IMPLANT DATA REVIEWED: Yes PATIENT PRESENTS WITH AN IMPLANTABLE OR ATTACHED CHILDBIRTH EDUCATOR: No RADIOLOGY DEPARTMENT: General X-ray: Exam(s) Completed: Chest X-Ray PERIPHERAL IV DATA: Not applicable SIGNED BY: RT Santiago(Tomy) November 10, 2023 2:36 PM documented in this encounter [facility] 11-10-2023 Note HNO ID: [id number] Author: JOSE ARREDONDO RT (R) Service: Radiology Author Type: Technologist Type: Progress Notes Filed: 11/10/2023 14:46 Note Text: Radiology Service Progress Note PATIENT NAME: Levy Todd DATE OF SERVICE: November 10, 2023 TIME: 2:36 PM PATIENT IDENTITY VERIFICATION COMPLETED USING TWO (2) IDENTIFIERS: Name and Date of confirmed by patient verbally. FALL SCREENING: Has the patient had 2 falls in the last year or 1 fall with injury or currently using an Ambulatory Assistive Device (Walker, Cane, Wheelchair, Crutches, etc.)? No PATIENT GENDER DATA: Male PATIENT RELEVANT IMPLANT DATA REVIEWED: Yes PATIENT PRESENTS WITH AN IMPLANTABLE OR ATTACHED CHILDBIRTH EDUCATOR: No RADIOLOGY DEPARTMENT: General X-ray: Exam(s) Completed: Chest X-Ray PERIPHERAL IV DATA: Not applicable SIGNED BY: RT Santiago(Tomy) November 10, 2023 2:36 PM [facility] 11-10-2023 Note HNO ID: [id number] Author: PAMELA NIEVES APRN.NON DESTRUCTIVE TESTING TECHNICIAN Service: ? Author Type: Nurse Practitioner Type: Progress Notes Filed: 11/10/2023 14:29 Note Text: Chief Complaint Patient presents with: Cough: X 6 months HPI Levy Todd is a 28 year old male who presents here today for Above Complaints.. Patient presents for chronic cough. Reports cough x6 months. Has mild intermittent asthma. Has albuterol and budesonide but reports he has not been using them when he is SOB. Reports LYNN. Past medical history, appointments, medications, allergies reviewed. 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 mom lost 6 before him. premature labor. delivered emergency because cord wrapped around his neck. born 8 lbs. went home with mom. 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 Previous Surgical History PAST SURGICAL HISTORY 01/26/2021: LAPAROSCOPY SURG CHOLECYSTECTOMY No date: MYRINGOTOMY ASPIRAND/EUSTACHIAN TUBE NFLTJ ANES Comment: Myringotomy/tubes No date: PAST SURGICAL HISTORY OF Comment: toe spur 01/26/2021: REMOVAL GALLBLADDER No date: RPR UMBILICAL HERNIA < 5 YRS REDUCIBLE Comment: Hernia repair, umbilical - repair of diastasis [...] Patient Allergies ALLERGIES Allergen Reactions Concerta [Methylphe* Mental Status Change hyper Depakote [Divalproe* Intolerance Phenobarbital Intolerance Ritalin [Methylphen* Intolerance hyper Current Medications Current Outpatient Medications on File Prior to Visit Medication Sig dicyclomine (BENTYL) 10 mg capsule Take 1 capsule by mouth before meals and at bedtime. lactase (LACTAID) 3,000 unit tablet Take 1 tablet by mouth three times a day with meals. benzonatate (TESSALON PERLES) 100 mg capsule Take 1 capsule by mouth three times a day as needed for cough. (Patient not taking: Reported on 10/24/2023) lidocaine (LIDODERM) 5 % Apply 1 Patch as directed every 12 hours. Remove old patch prior to placing new patch. Location: left leg diclofenac (VOLTAREN ARTHRITIS PAIN) 1 % topical gel Apply 2 g to affected area four times daily. omeprazole (PRILOSEC) 40 mg capsule Take 1 capsule by mouth once daily. Cholecalciferol, Vitamin D3, 50 mcg (2,000 unit) cap Take 1 capsule by mouth once daily. benztropine (COGENTIN) 0.5 mg tablet Take 1 tablet by mouth two times a day. hydrOXYzine pamoate (VISTARIL) 25 mg capsule Take 1 capsule by mouth three times a day as needed. lithium carbonate (ESKALITH) 300 mg capsule Take 2 capsules by mouth two times a day. paliperidone palm, 3 month, (INVEGA TRINZA) 819 mg/2.63 mL syrg To be given at office lamoTRIgine (LAMICTAL) 200 mg tablet Take 1 tablet by mouth two times a day. risperiDONE (RISPERDAL) 0.5 mg tablet Take 3 tablets by mouth two times a day. triamcinolone acetonide (KENALOG) 0.1 % ointment Apply to affected area two times a day. budesonide (PULMICORT FLEXHALER) 90 mcg/actuation aepb Inhale 2 Puffs as instructed two times a day. urea (CARMOL) 40 % Apply to affected area once daily. fluticasone (FLONASE) 50 mcg/actuation nasal spray Use 2 Sprays in each nostril once daily. Rinse mouth after use. albuterol HFA (PROAIR HFA) 90 mcg/actuation inhaler Inhale 2 Puffs as instructed every 6 hours as needed. sertraline (ZOLOFT) 100 mg tablet Take 100 mg by mouth once daily. ondansetron orally disintegrating (ZOFRAN ODT) 4 mg disintegrating tablet Take 1 tablet by mouth every 8 hours as needed for Nausea/Vomiting. albuterol HFA (PROVENTIL HFA, VENTOLIN HFA) 90 mcg/actuation inhaler Inhale 2 Puffs as instructed every 4 hours as needed. No current facility-administered medications on file prior to visit. Social History So (more content not included)... [facility] 11-10-2023 History of Presen t illness Narrative Chief Complaint Patient presents with: Cough: X 6 months HPI Levy Todd is a 28 year old male who presents here today for Above Complaints.. Patient presents for chronic cough. Reports cough x6 months. Has mild intermittent asthma. Has albuterol and budesonide but reports he has not been using them when he is SOB. Reports LYNN. Past medical history, appointments, medications, allergies reviewed. 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 mom lost 6 before him. premature labor. delivered emergency because cord wrapped around his neck. born 8 lbs. went home with mom. 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 Previous Surgical History PAST SURGICAL HISTORY 01/26/2021: LAPAROSCOPY SURG CHOLECYSTECTOMY No date: MYRINGOTOMY ASPIR&/EUSTACHIAN TUBE NFLTJ ANES Comment: Myringotomy/tubes No date: PAST SURGICAL HISTORY OF Comment: toe spur 01/26/2021: REMOVAL GALLBLADDER No date: RPR UMBILICAL HERNIA < 5 YRS REDUCIBLE Comment: Hernia repair, umbilical - repair of diastasis [...] Patient Allergies ALLERGIES Allergen Reactions Concerta [Methylphe* Mental Status Change hyper Depakote [Divalproe* Intolerance Phenobarbital Intolerance Ritalin [Methylphen* Intolerance hyper Current Medications Current Outpatient Medications on File Prior to Visit Medication Sig dicyclomine (BENTYL) 10 mg capsule Take 1 capsule by mouth before meals and at bedtime. lactase (LACTAID) 3,000 unit tablet Take 1 tablet by mouth three times a day with meals. benzonatate (TESSALON PERLES) 100 mg capsule Take 1 capsule by mouth three times a day as needed for cough. (Patient not taking: Reported on 10/24/2023) lidocaine (LIDODERM) 5 % Apply 1 Patch as directed every 12 hours. Remove old patch prior to placing new patch. Location: left leg diclofenac (VOLTAREN ARTHRITIS PAIN) 1 % topical gel Apply 2 g to affected area four times daily. omeprazole (PRILOSEC) 40 mg capsule Take 1 capsule by mouth once daily. Cholecalciferol, Vitamin D3, 50 mcg (2,000 unit) cap Take 1 capsule by mouth once daily. benztropine (COGENTIN) 0.5 mg tablet Take 1 tablet by mouth two times a day. hydrOXYzine pamoate (VISTARIL) 25 mg capsule Take 1 capsule by mouth three times a day as needed. lithium carbonate (ESKALITH) 300 mg capsule Take 2 capsules by mouth two times a day. paliperidone palm, 3 month, (INVEGA TRINZA) 819 mg/2.63 mL syrg To be given at office lamoTRIgine (LAMICTAL) 200 mg tablet Take 1 tablet by mouth two times a day. risperiDONE (RISPERDAL) 0.5 mg tablet Take 3 tablets by mouth two times a day. triamcinolone acetonide (KENALOG) 0.1 % ointment Apply to affected area two times a day. budesonide (PULMICORT FLEXHALER) 90 mcg/actuation aepb Inhale 2 Puffs as instructed two times a day. urea (CARMOL) 40 % Apply to affected area once daily. fluticasone (FLONASE) 50 mcg/actuation nasal spray Use 2 Sprays in each nostril once daily. Rinse mouth after use. albuterol HFA (PROAIR HFA) 90 mcg/actuation inhaler Inhale 2 Puffs as instructed every 6 hours as needed. sertraline (ZOLOFT) 100 mg tablet Take 100 mg by mouth once daily. ondansetron orally disintegrating (ZOFRAN ODT) 4 mg disintegrating tablet Take 1 tablet by mouth every 8 hours as needed for Nausea/Vomiting. albuterol HFA (PROVENTIL HFA, VENTOLIN HFA) 90 mcg/actuation inhaler Inhale 2 Puffs as instructed every 4 hours as needed. No current facility-administered medications on file prior to visit. Social History Social History Tobacco Use Smoking status: Never Smokeless tobacco: Never Vaping Use Vaping status: Never Used Substance Use Topics Alcohol use: Never Drug use: Never Review of Symptoms REVIEW OF SYSTEMS SEE HPI EXAM: BP 117/76 Pulse 89 Resp 16 Wt (!) 147.4 kg (325 lb) BMI 45.50 kg/m General Appearance: Well appearing, alert, in no acute distress, well-hydrated, well nourished.. Lungs: Positive findings: wheezing Shortness of breath: Upon exertion Cough. Heart: RRR without murmur, gallop, or rubs. No ectopy. Health Maintenance List Spirometry Never done Depression Screening Never done Anxiety Screening Never done Influenza Vaccine(1) due on 10/30/2023 Annual PCP Team Chronic Disease Visit due on 04/12/2024 DTaP,Tdap,Td Vaccine(8 - Td or Tdap) due on 07/29/2026 Hepatitis B Vaccine Completed HPV Vaccine Completed Hepatitis C Screening Completed HIV Screening Completed Covid-19 Vaccine Completed ASSESSMENT/PLAN: 1. Chronic cough - ICD9: 786.2, ICD10: R05.3 (primary diagnosis) - XR CHEST 2V FRONTAL/LAT - LUNG VOLUMES - SPIROMETRY - BASELINE AND POST DILATOR 2. LYNN (dyspnea on exertion) - ICD9: 786.09, ICD10: R06.09 - XR CHEST 2V FRONTAL/LAT - LUNG VOLUMES - SPIROMETRY - BASELINE AND POST DILATOR Encouraged patient to use albuterol and budesonide as needed for cough and SOB. Patient verbalized understanding. Pamela Nieves APRN.CASTRO documented in this encounter [facility] 10-24-2023 Note HNO ID: [id number] Author: WOO VARGAS APRN.CNP Service: ? Author Type: Nurse Practitioner Type: Progress Notes Filed: 10/24/2023 15:50 Note Text: Subjective HPI HPI Levy Todd is a 28 year old male who presents today for CC of sore throat. This started few days ago. Has tried otc medication for relief. Symptoms are worsened by nothing. Risk factors no sick exposures Diarrhea without blood for few weeks, 3 times per day. Denies abdomina pain. 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 mom lost 6 before him. premature labor. delivered emergency because cord wrapped around his neck. born 8 lbs. went home with mom. 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 lactase (LACTAID) 3,000 unit tablet Take 1 tablet by mouth three times a day with meals. lidocaine (LIDODERM) 5 % Apply 1 Patch as directed every 12 hours. Remove old patch prior to placing new patch. Location: left leg diclofenac (VOLTAREN ARTHRITIS PAIN) 1 % topical gel Apply 2 g to affected area four times daily. omeprazole (PRILOSEC) 40 mg capsule Take 1 capsule by mouth once daily. Cholecalciferol, Vitamin D3, 50 mcg (2,000 unit) cap Take 1 capsule by mouth once daily. benztropine (COGENTIN) 0.5 mg tablet Take 1 tablet by mouth two times a day. hydrOXYzine pamoate (VISTARIL) 25 mg capsule Take 1 capsule by mouth three times a day as needed. lithium carbonate (ESKALITH) 300 mg capsule Take 2 capsules by mouth two times a day. traZODone (DESYREL) 50 mg tablet Take 1 tablet by mouth daily at bedtime. paliperidone palm, 3 month, (INVEGA TRINZA) 819 mg/2.63 mL syrg To be given at office lamoTRIgine (LAMICTAL) 200 mg tablet Take 1 tablet by mouth two times a day. risperiDONE (RISPERDAL) 0.5 mg tablet Take 3 tablets by mouth two times a day. triamcinolone acetonide (KENALOG) 0.1 % ointment Apply to affected area two times a day. budesonide (PULMICORT FLEXHALER) 90 mcg/actuation aepb Inhale 2 Puffs as instructed two times a day. urea (CARMOL) 40 % Apply to affected area once daily. fluticasone (FLONASE) 50 mcg/actuation nasal spray Use 2 Sprays in each nostril once daily. Rinse mouth after use. albuterol HFA (PROAIR HFA) 90 mcg/actuation inhaler Inhale 2 Puffs as instructed every 6 hours as needed. sertraline (ZOLOFT) 100 mg tablet Take 100 mg by mouth once daily. ondansetron orally disintegrating (ZOFRAN ODT) 4 mg disintegrating tablet Take 1 tablet by mouth every 8 hours as needed for Nausea/Vomiting. albuterol HFA (PROVENTIL HFA, VENTOLIN HFA) 90 mcg/actuation inhaler Inhale 2 Puffs as instructed every 4 hours as needed. benzonatate (TESSALON PERLES) 100 mg capsule Take 1 capsule by mouth three times a day as needed for cough. (Patient not taking: Reported on 10/24/2023) FAMILY HISTORY Problem Relation Age of Onset [...] Never Smokeless tobacco: Never Vaping Use Vaping status: Never Used Substance Use Topics Alcohol use: Never Drug use: Never Review of Systems Constitutional: Negative for fever. HENT: Positive for so (more content not included)... [facility] 10-24-2023 History of Presen t illness Narrative Subjective HPI HPI Levy Todd is a 28 year old male who presents today for CC of sore throat. This started few days ago. Has tried otc medication for relief. Symptoms are worsened by nothing. Risk factors no sick exposures Diarrhea without blood for few weeks, 3 times per day. Denies abdomina pain. 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 mom lost 6 before him. premature labor. delivered emergency because cord wrapped around his neck. born 8 lbs. went home with mom. 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 lactase (LACTAID) 3,000 unit tablet Take 1 tablet by mouth three times a day with meals. lidocaine (LIDODERM) 5 % Apply 1 Patch as directed every 12 hours. Remove old patch prior to placing new patch. Location: left leg diclofenac (VOLTAREN ARTHRITIS PAIN) 1 % topical gel Apply 2 g to affected area four times daily. omeprazole (PRILOSEC) 40 mg capsule Take 1 capsule by mouth once daily. Cholecalciferol, Vitamin D3, 50 mcg (2,000 unit) cap Take 1 capsule by mouth once daily. benztropine (COGENTIN) 0.5 mg tablet Take 1 tablet by mouth two times a day. hydrOXYzine pamoate (VISTARIL) 25 mg capsule Take 1 capsule by mouth three times a day as needed. lithium carbonate (ESKALITH) 300 mg capsule Take 2 capsules by mouth two times a day. traZODone (DESYREL) 50 mg tablet Take 1 tablet by mouth daily at bedtime. paliperidone palm, 3 month, (INVEGA TRINZA) 819 mg/2.63 mL syrg To be given at office lamoTRIgine (LAMICTAL) 200 mg tablet Take 1 tablet by mouth two times a day. risperiDONE (RISPERDAL) 0.5 mg tablet Take 3 tablets by mouth two times a day. triamcinolone acetonide (KENALOG) 0.1 % ointment Apply to affected area two times a day. budesonide (PULMICORT FLEXHALER) 90 mcg/actuation aepb Inhale 2 Puffs as instructed two times a day. urea (CARMOL) 40 % Apply to affected area once daily. fluticasone (FLONASE) 50 mcg/actuation nasal spray Use 2 Sprays in each nostril once daily. Rinse mouth after use. albuterol HFA (PROAIR HFA) 90 mcg/actuation inhaler Inhale 2 Puffs as instructed every 6 hours as needed. sertraline (ZOLOFT) 100 mg tablet Take 100 mg by mouth once daily. ondansetron orally disintegrating (ZOFRAN ODT) 4 mg disintegrating tablet Take 1 tablet by mouth every 8 hours as needed for Nausea/Vomiting. albuterol HFA (PROVENTIL HFA, VENTOLIN HFA) 90 mcg/actuation inhaler Inhale 2 Puffs as instructed every 4 hours as needed. benzonatate (TESSALON PERLES) 100 mg capsule Take 1 capsule by mouth three times a day as needed for cough. (Patient not taking: Reported on 10/24/2023) FAMILY HISTORY Problem Relation Age of Onset [...] Never Smokeless tobacco: Never Vaping Use Vaping status: Never Used Substance Use Topics Alcohol use: Never Drug use: Never Review of Systems Constitutional: Negative for fever. HENT: Positive for sore throat. Negative for congestion, ear pain and nosebleeds. Respiratory: Negative for cough, shortness of breath and wheezing. Gastrointestinal: Positive for diarrhea. Negative for abdominal pain, constipation, nausea and vomiting. Musculoskeletal: Negative for neck pain. Objective Blood pressure 134/78, pulse 80, temperature 37.1 C (98.8 F), resp. rate 18, weight (!) 144.9 kg (319 lb 7.1 oz), SpO2 98%. Physical Exam Constitutional: General: He is not in acute distress. Appearance: Normal appearance. He is not toxic-appearing or diaphoretic. HENT: Head: Normocephalic and atraumatic. Cardiovascular: Rate and Rhythm: Normal rate and regular rhythm. Heart sounds: Normal heart sounds, S1 normal and S2 normal. Pulmonary: Effort: Pulmonary effort is normal. Breath sounds: Normal breath sounds. Abdominal: General: Bowel sounds are normal. Palpations: Abdomen is soft. Tenderness: There is no abdominal tenderness. Lymphadenopathy: Cervical: No cervical adenopathy. Right cervical: No superficial cervical adenopathy. Left cervical: No superficial cervical adenopathy. Skin: General: Skin is warm and dry. Neurological: Mental Status: He is alert and oriented to person, place, and time. Gait: Gait is intact. ASSESSMENT/PLAN: 1. Sore throat - ICD9: 462, ICD10: J02.9 (primary diagnosis) Strep negative, likely viral Otc management advised F/u for continued s/s - STREP A MOLECULAR (POC) 2. Diarrhea, unspecified type - ICD9: 787.91, ICD10: R19.7 Testing as below, treat per results If negative f/u with pcp or GI - ENTERIC BACTERIAL PANEL BY PCR - OVA + PARA MICROSCOPIC - C. DIFFICILE PCR Woo Vargas APRN.CASTRO documented in this encounter [facility] 09-19-2023 Instructions Angelina Claudio APRN.CNP - 09/19/2023 3:30 PM EDT 1) Follow up in 6 months 2) Get labs at next appointment documented in this encounter [facility] 09-19-2023 Note HNO ID: [id number] Author: ANGELINA CLAUDIO APRN.CNP Service: ? Author Type: Clinical Nurse Specialist Type: Progress Notes Filed: 09/19/2023 15:28 Note Text: This is a 27 year old male who presents today with: Patient presents with: 6 Month Exam HISTORY OF PRESENT ILLNESS: Levy Todd is a 27 year old male. Patient presents with: 6 Month Exam Headache- frontal. Gets a headache once a week that lastst a day or two. No nausea. Some diarrhea today. Thinks he didn't agree with the squash he ate. PAST MEDICAL HISTORY: PAST MEDICAL HISTORY Diagnosis [...] delivered emergency because cord wrapped around his neck. born 8 lbs. went home with mom. [...] Hcl] MEDICATIONS Current Outpatient Medications Medication Sig benzonatate (TESSALON PERLES) 100 mg capsule Take 1 capsule by mouth three times a day as needed for cough. lidocaine (LIDODERM) 5 % Apply 1 Patch as directed every 12 hours. Remove old patch prior to placing new patch. Location: left leg diclofenac (VOLTAREN ARTHRITIS PAIN) 1 % topical gel Apply 2 g to affected area four times daily. omeprazole (PRILOSEC) 40 mg capsule Take 1 capsule by mouth once daily. Cholecalciferol, Vitamin D3, 50 mcg (2,000 unit) cap Take 1 capsule by mouth once daily. benztropine (COGENTIN) 0.5 mg tablet Take 1 tablet by mouth two times a day. hydrOXYzine pamoate (VISTARIL) 25 mg capsule Take 1 capsule by mouth three times a day as needed. lithium carbonate (ESKALITH) 300 mg capsule Take 2 capsules by mouth two times a day. traZODone (DESYREL) 50 mg tablet Take 1 tablet by mouth daily at bedtime. paliperidone palm, 3 month, (INVEGA TRINZA) 819 mg/2.63 mL syrg To be given at office lamoTRIgine (LAMICTAL) 200 mg tablet Take 1 tablet by mouth two times a day. risperiDONE (RISPERDAL) 0.5 mg tablet Take 3 tablets by mouth two times a day. triamcinolone acetonide (KENALOG) 0.1 % ointment Apply to affected area two times a day. budesonide (PULMICORT FLEXHALER) 90 mcg/actuation aepb Inhale [...] as instructed every 6 hours as needed. sertraline (ZOLOFT) 100 mg tablet Take 100 mg by mouth once daily. ondansetron orally disintegrating (ZOFRAN ODT) 4 mg disintegrating tablet Take 1 tablet by mouth every 8 hours as needed for Nausea/Vomiting. albuterol HFA (PROVENTIL HFA, VENTOLIN HFA) 90 mcg/actuation inhaler Inhale 2 Puffs as instructed every 4 hours as needed. predniSONE (DELTASONE) 10 mg tablet Take 4 tabs daily for 3 days, then 2 tabs daily for 3 days, then 1 tab daily for 3 days with food. No current facility-administered medications for this visit. [...] Drug use: Never REVIEW OF SYSTEMS GENERAL: No weight loss, malaise or fevers/chills, very thirsty HEENT: Weekly headaches, No changes in hearing or vision. NECK: Negative for lumps, goite (more content not included)... [facility] 09-19-2023 History of Presen t illness Narrative This is a 27 year old male who presents today with: Patient presents with: 6 Month Exam HISTORY OF PRESENT ILLNESS: Levy Todd is a 27 year old male. Patient presents with: 6 Month Exam Headache- frontal. Gets a headache once a week that lastst a day or two. No nausea. Some diarrhea today. Thinks he didn't agree with the squash he ate. PAST MEDICAL HISTORY: PAST MEDICAL HISTORY Diagnosis [...] delivered emergency because cord wrapped around his neck. born 8 lbs. went home with mom. [...] Hcl] MEDICATIONS Current Outpatient Medications Medication Sig benzonatate (TESSALON PERLES) 100 mg capsule Take 1 capsule by mouth three times a day as needed for cough. lidocaine (LIDODERM) 5 % Apply 1 Patch as directed every 12 hours. Remove old patch prior to placing new patch. Location: left leg diclofenac (VOLTAREN ARTHRITIS PAIN) 1 % topical gel Apply 2 g to affected area four times daily. omeprazole (PRILOSEC) 40 mg capsule Take 1 capsule by mouth once daily. Cholecalciferol, Vitamin D3, 50 mcg (2,000 unit) cap Take 1 capsule by mouth once daily. benztropine (COGENTIN) 0.5 mg tablet Take 1 tablet by mouth two times a day. hydrOXYzine pamoate (VISTARIL) 25 mg capsule Take 1 capsule by mouth three times a day as needed. lithium carbonate (ESKALITH) 300 mg capsule Take 2 capsules by mouth two times a day. traZODone (DESYREL) 50 mg tablet Take 1 tablet by mouth daily at bedtime. paliperidone palm, 3 month, (INVEGA TRINZA) 819 mg/2.63 mL syrg To be given at office lamoTRIgine (LAMICTAL) 200 mg tablet Take 1 tablet by mouth two times a day. risperiDONE (RISPERDAL) 0.5 mg tablet Take 3 tablets by mouth two times a day. triamcinolone acetonide (KENALOG) 0.1 % ointment Apply to affected area two times a day. budesonide (PULMICORT FLEXHALER) 90 mcg/actuation aepb Inhale [...] as instructed every 6 hours as needed. sertraline (ZOLOFT) 100 mg tablet Take 100 mg by mouth once daily. ondansetron orally disintegrating (ZOFRAN ODT) 4 mg disintegrating tablet Take 1 tablet by mouth every 8 hours as needed for Nausea/Vomiting. albuterol HFA (PROVENTIL HFA, VENTOLIN HFA) 90 mcg/actuation inhaler Inhale 2 Puffs as instructed every 4 hours as needed. predniSONE (DELTASONE) 10 mg tablet Take 4 tabs daily for 3 days, then 2 tabs daily for 3 days, then 1 tab daily for 3 days with food. No current facility-administered medications for this visit. [...] Drug use: Never REVIEW OF SYSTEMS GENERAL: No weight loss, malaise or fevers/chills, very thirsty HEENT: Weekly headaches, No changes in hearing or vision. NECK: Negative for lumps, goiter, pain and significant neck swelling RESPIRATORY: Negative for cough, hemoptysis, wheezing, dyspnea or shortness of breath CARDIOVASCULAR: Negative for chest pain, leg swelling, orthopnea, or palpitations GI: No nausea, vomiting, + diarrhea/ no constipation. No hematochezia/melena. + heartburn or reflux symptoms. : No history of dysuria, frequency or incontinence MUSCULOSKELETAL: Negative for joint pain or swelling. SKIN: Negative for lesions, rash, and itching ENDOCRINE: Negative for cold or heat intolerance, polyuria, + polydipsia and goiter NEURO: No history of headaches, syncope, paralysis, seizures or tremors MOOD: Negative for depression, anxiety, or suicidal ideation. EXAM: BP 120/75 Pulse 110 Temp 36.9 C (98.5 F) Wt (!) 141.5 kg (312 lb) SpO2 96% BMI 43.68 kg/m PHYSICAL EXAM: Physical Exam LABS: ASSESSMENT/PLAN: 1. Gastroesophageal reflux disease without esophagitis - ICD9: 530.81, ICD10: K21.9 (primary diagnosis) - Stable on omeprazole 2. Left upper quadrant abdominal pain - ICD9: 789.02, ICD10: R10.12 - Stable - DICYCLOMINE 10 MG CAPSULE 3. Attention deficit hyperactivity disorder (ADHD), other type - ICD9: 314.01, ICD10: F90.8 Stable 4. Psychogenic nonepileptic seizure - ICD9: 300.11, ICD10: F44.5 Stable- no recent seizures 5. Asperger's syndrome - ICD9: 299.80, ICD10: F84.5 Ongoing 6. Mild intermittent asthma without complication - ICD9: 493.90, ICD10: J45.20 - Mild intermittent asthma stable - Avoidance of triggers recommended 7. Schizoaffective disorder, bipolar type (HCC) - ICD9: 295.70, ICD10: F25.0 Stable. - On Cogentin, paliperidone, and lithium 8. Lactose intolerance - ICD9: 271.3, ICD10: E73.9 Lactaid helps - DICYCLOMINE 10 MG CAPSULE - LACTASE 3,000 UNIT TABLET Angelina Claudio APRN.CNP Discussed treatment plan and patient voices understanding. Patient's questions answered appropriately. Medications and potential side effects were discussed and patient voices understanding. Return to the office as scheduled or as needed for worsening/no improvement. Angelina Claudio APRN.CNP documented in this encounter [facility] 09-06-2023 Telephone encounter Note Opened In Error [facility] 09-06-2023 Miscellaneous Notes Opened In Error documented in this encounter [facility] 08-25-2023 Instructions Jina Gayle APRN.NON DESTRUCTIVE TESTING TECHNICIAN - 08/25/2023 1:42 PM EDT RESPIRATORY INFECTION GENERAL INFORMATION: An upper respiratory tract infection, or cold, is a viral infection of the airway passages. It can be caused by any one of almost 200 different viruses. Common symptoms include a runny or stuffy nose, sneezing, watery eyes, sore throat, cough, and slight fever. Colds are contagious, especially during the first 3 or 4 days and cannot be cured by antibiotics. They are spread by coughs, sneezes, and direct contact, especially [id number]. A respiratory tract infection usually clears up in a few days, but some people may be sick for a week or two. INSTRUCTIONS: 1. Be careful not to blow your nose too hard because this may cause a nosebleed. 2. Use a cool-mist humidifier (vaporizer) to increase air moisture. This will make it easier for you to breathe. Do not use hot steam. 3. Rest as much as possible and get plenty of sleep. 4. Wash your hands often, especially after you blow your nose. Cover your mouth and nose with a tissue when you sneeze or cough. 5. Drink plenty of clear fluids (8 glasses a day) such as water, fruit juice, tea, clear soups, and carbonated beverages. CONTACT YOUR DOCTOR IF : 1. Your fever lasts more than 3 days. 2. You have a sore throat that gets worse or you see white or yellow spots in your throat. 3. Your cough gets worse or lasts more than 10 days. 4. You develop a rash anywhere on your skin. 5. You have an earache or a headache. 6. You have thick greenish or yellowish discharge from your nose. RETURN IMMEDIATELY IF: 1. You cough up thick yellow, green, triana, or bloody sputum. 2. You have difficulty breathing, pain in your chest, or your skin or nails look triana or blue. 3. You have shaking chills or a temperature over 102 F (39 C). documented in this encounter [facility] 08-25-2023 History of Presen t illness Narrative Radiology Service Progress Note PATIENT NAME: Levy Todd DATE OF SERVICE: August 25, 2023 TIME: 1:29 PM PATIENT IDENTITY VERIFICATION COMPLETED USING TWO (2) IDENTIFIERS: Name and Date of confirmed by patient verbally. FALL SCREENING: Has the patient had 2 falls in the last year or 1 fall with injury or currently using an Ambulatory Assistive Device (Walker, Cane, Wheelchair, Crutches, etc.)? No PATIENT GENDER DATA: Male PATIENT RELEVANT IMPLANT DATA REVIEWED: Yes PATIENT PRESENTS WITH AN IMPLANTABLE OR ATTACHED CHILDBIRTH EDUCATOR: No RADIOLOGY DEPARTMENT: General X-ray: Exam(s) Completed: Chest X-Ray PERIPHERAL IV DATA: Not applicable SIGNED BY: RT Annette(R) August 25, 2023 1:29 PM documented in this encounter [facility] 08-25-2023 History of Presen t illness Narrative This note was created using NoteWriter. Subjective Levy Todd is a 27 year old male. 27 year old male with PMH asthma, GERD, ADHD, schizoaffective, Asperger presents for illness. Acute onset last night +harsh cough +barky like +sore throat +fever Denies eye, nose, or ear Denies emesis Denies body aches Denies fatigue Denies known ill contacts Of note, he was admitted until yesterday, at a [facility] for approximately 3 weeks ago. Accompanied by grandfather The history is provided by the patient. No veterinary medicine scientist was used. Cough This is a new problem. The current episode started yesterday. The problem occurs constantly. The problem has not changed since onset.The cough is Non-productive. There has been no fever. Associated symptoms include rhinorrhea, sore throat and wheezing. Pertinent negatives include no chest pain, no chills, no sweats, no weight loss, no ear congestion, no ear pain, no headaches, no myalgias, no shortness of breath and no eye redness. He has tried nothing for the symptoms. The treatment provided no relief. He is not a smoker. His past medical history does not include bronchitis, pneumonia, bronchiectasis, COPD, emphysema or asthma. PAST MEDICAL HISTORY Diagnosis Date Acute cholecystitis [...] delivered emergency because cord wrapped around his neck. born 8 lbs. went home with mom. [...] [Divalproex], Phenobarbital, and Ritalin [Methylphenidate Hcl] MEDICATIONS lidocaine (LIDODERM) 5 % Apply 1 Patch as directed every 12 hours. Remove old patch prior to placing new patch. Location: left leg diclofenac (VOLTAREN ARTHRITIS PAIN) 1 % topical gel Apply 2 g to affected area four times daily. omeprazole (PRILOSEC) 40 mg capsule Take 1 capsule by mouth once daily. Cholecalciferol, Vitamin D3, 50 mcg (2,000 unit) cap Take 1 capsule by mouth once daily. benztropine (COGENTIN) 0.5 mg tablet Take 1 tablet by mouth two times a day. hydrOXYzine pamoate (VISTARIL) 25 mg capsule Take 1 capsule by mouth three times a day as needed. lithium carbonate (ESKALITH) 300 mg capsule Take 2 capsules by mouth two times a day. traZODone (DESYREL) 50 mg tablet Take 1 tablet by mouth daily at bedtime. paliperidone palm, 3 month, (INVEGA TRINZA) 819 mg/2.63 mL syrg To be given at office lamoTRIgine (LAMICTAL) 200 mg tablet Take 1 tablet by mouth two times a day. risperiDONE (RISPERDAL) 0.5 mg tablet Take 3 tablets by mouth two times a day. triamcinolone acetonide (KENALOG) 0.1 % ointment Apply to affected area two times a day. budesonide (PULMICORT FLEXHALER) 90 mcg/actuation aepb Inhale [...] as instructed every 6 hours as needed. sertraline (ZOLOFT) 100 mg tablet Take 100 mg by mouth once daily. ondansetron orally disintegrating (ZOFRAN ODT) 4 mg disintegrating tablet Take 1 tablet by mouth every 8 hours as needed for Nausea/Vomiting. albuterol HFA (PROVENTIL HFA, VENTOLIN HFA) 90 mcg/actuation inhaler Inhale 2 Puffs as instructed every 4 hours as needed. benzonatate (TESSALON PERLES) 100 mg capsule Take 1 capsule by mouth three times a day as needed for cough. predniSONE (DELTASONE) 10 mg tablet Take 4 tabs daily for 3 days, then 2 tabs daily for 3 days, then 1 tab daily for 3 days with food. FAMILY HISTORY Problem Relation Age of Onset [...] Never Review of Systems Constitutional: Negative for chills, fatigue, fever and weight loss. HENT: Positive for congestion, rhinorrhea and sore throat. Negative for ear pain. Eyes: Negative for pain, discharge, redness and itching. Respiratory: Positive for cough and wheezing. Negative for apnea, chest tightness and shortness of breath. Cardiovascular: Negative for chest pain. Gastrointestinal: Negative for abdominal pain, diarrhea, nausea and vomiting. Musculoskeletal: Negative for arthralgias, back pain and myalgias. Skin: Negative for color change, pallor, rash and wound. Allergic/Immunologic: Negative for environmental allergies, food allergies and immunocompromised state. Neurological: Negative for dizziness, facial asymmetry, light-headedness, numbness and headaches. Hematological: Negative for adenopathy. Does not bruise/bleed easily. Psychiatric/Behavioral: Negative for agitation and behavioral problems. Objective BP 156/74 Pulse (!) 126 Temp (!) 38.3 C (100.9 F) Resp 18 Wt (!) 142.7 kg (314 lb 9.5 oz) SpO2 95% BMI 44.04 kg/m Physical Exam Vitals and nursing note reviewed. Constitutional: General: He is not in acute distress. Appearance: Normal appearance. He is obese. He is not ill-appearing, toxic-appearing or diaphoretic. HENT: Head: Normocephalic and atraumatic. Right Ear: External ear normal. Left Ear: External ear normal. Nose: Congestion present. No rhinorrhea. Mouth/Throat: Mouth: Mucous membranes are moist. Pharynx: Oropharynx is clear. Posterior oropharyngeal erythema (mild posterior erythema. Uvula midline) present. No oropharyngeal exudate. Eyes: General: Right eye: No discharge. Left eye: No discharge. Extraocular Movements: Extraocular movements intact. Conjunctiva/sclera: Conjunctivae normal. Pupils: Pupils are equal, round, and reactive to light. Cardiovascular: Rate and Rhythm: Normal rate and regular rhythm. Pulses: Normal pulses. Heart sounds: Normal heart sounds. No murmur heard. No friction rub. No gallop. Pulmonary: Effort: Pulmonary effort is normal. No respiratory distress. Breath sounds: Normal breath sounds. No stridor. No wheezing, rhonchi or rales. Chest: Chest wall: No tenderness. Abdominal: General: Abdomen is flat. There is no distension. Palpations: Abdomen is soft. There is no mass. Tenderness: There is no abdominal tenderness. There is no guarding or rebound. Hernia: No hernia is present. Musculoskeletal: General: No swelling, tenderness, deformity or signs of injury. Normal range of motion. Cervical back: Normal range of motion and neck supple. No rigidity or tenderness. Right lower leg: No edema. Left lower leg: No edema. Lymphadenopathy: Cervical: No cervical adenopathy. Skin: General: Skin is warm and dry. Capillary Refill: Capillary refill takes less than 2 seconds. Coloration: Skin is not jaundiced or pale. Findings: No bruising, lesion or rash. Neurological: General: No focal deficit present. Mental Status: He is alert and oriented to person, place, and time. Cranial Nerves: No cranial nerve deficit. Sensory: No sensory deficit. Motor: No weakness. Coordination: Coordination normal. Gait: Gait normal. Deep Tendon Reflexes: Reflexes normal. Psychiatric: Mood and Affect: Mood normal. Behavior: Behavior normal. Thought Content: Thought content normal. Assessment and Plan ASSESSMENT/PLAN: 1. Acute cough - ICD9: 786.2, ICD10: R05.1 (primary diagnosis) X one day Bark like a dog No red flags - XR CHEST 2V FRONTAL/LAT-negative 2. URI, acute - ICD9: 465.9, ICD10: J06.9 - Discussed viral etiology and rationale for treatment. - Symptomatic treatment with prn analgesia - Supportive care with fluids and rest - The patient may also use OTC cough and cold meds as needed, warm salt water gargles, throat lozenges and/or OTC throat spray as needed, and nasal saline gtts and suction prn. - Follow up in 3-5 days if symptoms persist or sooner if worsening of symptoms - Declines flu testing Jina Gayle APRN.NON DESTRUCTIVE TESTING TECHNICIAN documented in this encounter [facility] 08-03-2023 Telephone encounter Note Mother is asking asking that the script for the Voltaren topical get be sent to a different pharmacy. Is also requesting a refill of lidocaine patches. Patient has been identified by name and date of : Yes, Mother phones for refill(s): Requested Prescriptions Pending Prescriptions Disp Refills lidocaine (LIDODERM) 5 % 15 Patch 0 Sig: Apply 1 Patch as directed every 12 hours. Remove old patch prior to placing new patch. Location: left leg diclofenac (VOLTAREN ARTHRITIS PAIN) 1 % topical gel 20 g 1 Sig: Apply 2 g to affected area four times daily. Date of last office visit in primary care: 07/14/2023 Date of next office visit in primary care: 09/12/2023 Please advise. Thank you. Paula Gay LPN. [facility] 08-03-2023 Miscellaneous Notes Mother is asking asking that the script for the Voltaren topical get be sent to a different pharmacy. Is also requesting a refill of lidocaine patches. Patient has been identified by name and date of : Yes, Mother phones for refill(s): Requested Prescriptions Pending Prescriptions Disp Refills lidocaine (LIDODERM) 5 % 15 Patch 0 Sig: Apply 1 Patch as directed every 12 hours. Remove old patch prior to placing new patch. Location: left leg diclofenac (VOLTAREN ARTHRITIS PAIN) 1 % topical gel 20 g 1 Sig: Apply 2 g to affected area four times daily. Date of last office visit in primary care: 07/14/2023 Date of next office visit in primary care: 09/12/2023 Please advise. Thank you. Paula Gay LPN. documented in this encounter [facility] 08-02-2023 Miscellaneous Notes [employer] approved 07/18/23 until further notice Faxed approval to zarina Bermudez MA Prior Authorization has been completed online at [email or web address] for lidocaine patches, will await response. [id number] Please keep encounter open until final decision has been received and documented from insurance company. Radha Bermudez MA documented in this encounter [facility] 08-02-2023 Telephone encounter Note [employer] approved 07/18/23 until further notice Faxed approval to zarina Bermudez MA [facility] 08-01-2023 Telephone encounter Note Prior Authorization has been completed online at [email or web address] for lidocaine patches, will await response. [id number] Please keep encounter open until final decision has been received and documented from insurance company. Radha Bermudez MA [facility] 07-29-2023 Telephone encounter Note Patient has been identified by name and date of : Yes, Shraddha Concepcion RN Date 07/29/2023 Time 10:04 am Mother phones for refill(s): Requested Prescriptions Pending Prescriptions Disp Refills diclofenac (VOLTAREN ARTHRITIS PAIN) 1 % topical gel 20 g 1 Sig: Apply 2 g to affected area four times daily. Date of last office visit in primary care: 07/14/2023 Date of next office visit in primary care: 09/12/2023 Mother calls to request refills of medication for flare up of left back/hip/leg pain. Please advise. Thank you. Shraddha Concepcion RN. [facility] 07-29-2023 Miscellaneous Notes Patient has been identified by name and date of : Yes, Shraddha Concepcion RN Date 07/29/2023 Time 10:04 am Mother phones for refill(s): Requested Prescriptions Pending Prescriptions Disp Refills diclofenac (VOLTAREN ARTHRITIS PAIN) 1 % topical gel 20 g 1 Sig: Apply 2 g to affected area four times daily. Date of last office visit in primary care: 07/14/2023 Date of next office visit in primary care: 09/12/2023 Mother calls to request refills of medication for flare up of left back/hip/leg pain. Please advise. Thank you. Shraddha Concepcion RN. documented in this encounter [facility] 07-22-2023 Telephone encounter Note The following approved medication requests have been transmitted electronically. Requested Prescriptions Pending Prescriptions Disp Refills omeprazole (PRILOSEC) 40 mg capsule 90 capsule 3 Sig: Take 1 capsule by mouth once daily. Angelina Claudio APRN.CAP JEWEL PLATE ASSEMBLER [facility] 07-22-2023 Miscellaneous Notes The following approved medication requests have been transmitted electronically. Requested Prescriptions Pending Prescriptions Disp Refills omeprazole (PRILOSEC) 40 mg capsule 90 capsule 3 Sig: Take 1 capsule by mouth once daily. Angelina Claudio APRN.CAP JEWEL PLATE ASSEMBLER Pharmacy phones for refill(s): Requested Prescriptions Pending Prescriptions Disp Refills omeprazole (PRILOSEC) 40 mg capsule 30 capsule 2 Sig: Take 1 capsule by mouth once daily. Date of last office visit in primary care: 07/14/2023 Date of next office visit in primary care: 09/12/2023 Danika Johnson RN. documented in this encounter [facility] 07-22-2023 Telephone encounter Note Pharmacy phones for refill(s): Requested Prescriptions Pending Prescriptions Disp Refills omeprazole (PRILOSEC) 40 mg capsule 30 capsule 2 Sig: Take 1 capsule by mouth once daily. Date of last office visit in primary care: 07/14/2023 Date of next office visit in primary care: 09/12/2023 Danika Johnson RN. [facility] 07-14-2023 Note Addended by: ANGELINA CLAUDIO on: 07/14/2023 01:37 PM Modules accepted: Orders [facility] 07-14-2023 Miscellaneous Notes Addended by: ANGELINA CLAUDIO on: 07/14/2023 01:37 PM Modules accepted: Orders Addended by: ANGELINA CLAUDIO on: 07/14/2023 01:33 PM Modules accepted: Orders documented in this encounter [facility] 07-14-2023 Note Addended by: ANGELINA CLAUDIO on: 07/14/2023 01:33 PM Modules accepted: Orders [facility] 07-14-2023 Instructions Angelina Claudio APRN.CNS - 07/14/2023 1:31 PM EDT 1) Augmentin 2 x day for 14 days 2) Saline nasal spray frequently while on antibiotic 3) Check labs 4) Follow up with Dami in August as scheduled documented in this encounter [facility] 07-14-2023 History of Presen t illness Narrative This is a 27 year old male who presents today with: Patient presents with: Acute Visit: Diarrhea, abdominal pain, sore throat, low grade fever, fatigue since yesterday HISTORY OF PRESENT ILLNESS: Levy Todd is a 27 year old male. Patient presents with: Acute Visit: Diarrhea, abdominal pain, sore throat, low grade fever, fatigue since yesterday Treated a month ago. Yesterday his facility called mother to report that patient was not feeling good. Slept from time he came home from work, then again all night. Low grade fever on Tuesday. No headache. No chills. Pain in throat. Steffany hurts to swallow. Chest congestion. Coughing. Maybe productive. No body aches. Missed work Tuesday due to fever. PAST MEDICAL HISTORY: PAST MEDICAL HISTORY Diagnosis [...] delivered emergency because cord wrapped around his neck. born 8 lbs. went home with mom. [...] Hcl] MEDICATIONS Current Outpatient Medications Medication Sig benztropine (COGENTIN) 0.5 mg tablet Take 1 tablet by mouth two times a day. hydrOXYzine pamoate (VISTARIL) 25 mg capsule Take 1 capsule by mouth three times a day as needed. lithium carbonate (ESKALITH) 300 mg capsule Take 2 capsules by mouth two times a day. traZODone (DESYREL) 50 mg tablet Take 1 tablet by mouth daily at bedtime. paliperidone palm, 3 month, (INVEGA TRINZA) 819 mg/2.63 mL syrg To be given at office lamoTRIgine (LAMICTAL) 200 mg tablet Take 1 tablet by mouth two times a day. risperiDONE (RISPERDAL) 0.5 mg tablet Take 3 tablets by mouth two times a day. triamcinolone acetonide (KENALOG) 0.1 % ointment Apply to affected area two times a day. budesonide (PULMICORT FLEXHALER) 90 mcg/actuation aepb Inhale [...] as instructed every 6 hours as needed. sertraline (ZOLOFT) 100 mg tablet Take 100 mg by mouth once daily. ondansetron orally disintegrating (ZOFRAN ODT) 4 mg disintegrating tablet Take 1 tablet by mouth every 8 hours as needed for Nausea/Vomiting. albuterol HFA (PROVENTIL HFA, VENTOLIN HFA) 90 mcg/actuation inhaler Inhale 2 Puffs as instructed every 4 hours as needed. No current facility-administered medications for this visit. [...] use: Never Drug use: Never EXAM: BP 124/76 Pulse 96 Temp 37 C (98.6 F) (Left Tympanic) Resp 20 Wt (!) 139.3 kg (307 lb) SpO2 97% BMI 42.98 kg/m PHYSICAL EXAM: Physical Exam Vitals reviewed. Constitutional: Appearance: Normal appearance. HENT: Head: Normocephalic. Nose: Congestion and rhinorrhea present. Mouth/Throat: Pharynx: Oropharyngeal exudate present. Comments: Very dry mouth Cardiovascular: Rate and Rhythm: Normal rate and regular rhythm. Heart sounds: Normal heart sounds. Pulmonary: Effort: Pulmonary effort is normal. Breath sounds: Normal breath sounds. Abdominal: Palpations: Abdomen is soft. Musculoskeletal: General: Normal range of motion. Cervical back: Normal range of motion. Skin: General: Skin is warm and dry. Neurological: Mental Status: He is alert. LABS: get labs ASSESSMENT/PLAN: 1. Acute non-recurrent maxillary sinusitis - ICD9: 461.0, ICD10: J01.00 (primary diagnosis) - Will begin treatment with Augmentin 875 mg PO BID for 14 days - AMOXICILLIN 875 MG-POTASSIUM CLAVULANATE 125 MG TABLET - TRANSGLUTAMINASE ABS - HIV 1/2 COMBO WITH REFLEX TO DIFFERENTIATION - COMPREHENSIVE METABOLIC PANEL - COMPLETE BLOOD COUNT AND DIFFERENTIAL - MAGNESIUM - VITAMIN B12 - IRON AND TIBC - VITAMIN D 25 HYDROXY - Work excuse for Tuesday, today and tomorrow 2. Encounter for screening for human immunodeficiency virus (HIV) - ICD9: V73.89, ICD10: Z11.4 Check labs - HIV 1/2 COMBO WITH REFLEX TO DIFFERENTIATION 3. Fatigue associated with AIDS (HCC) - ICD9: 042, ICD10: B20 Check labs - IRON AND TIBC 4. Body mass index (BMI) 40.0-44.9, adult (HCC) - ICD9: V85.41, ICD10: Z68.41 Stable - Continue current medications - VITAMIN D 25 HYDROXY Discussed treatment plan and patient voices understanding. Patient's questions answered appropriately. Medications and potential side effects were discussed and patient voices understanding. Return to the office as scheduled or as needed for worsening/no improvement. Angelina Claudio APRN.CNS documented in this encounter [facility] 06-20-2023 Instructions Angelina Claudio APRN.CNS - 06/20/2023 3:23 PM EDT 1) Augmentin 2 chewable tablets twice a day for 10 days 2) Saline nasal spray frequently while on the antibiotic 3) Off work through tomorrow 4) Follow up Dami in August as scheduled documented in this encounter [facility] 06-20-2023 History of Presen t illness Narrative This is a 27 year old male who presents today with: Patient presents with: Sore Throat HISTORY OF PRESENT ILLNESS: Levy Todd is a 27 year old male. Patient presents with: Sore Throat Throat did get better from last [place]. Hurting again since Tuesday. Hurts to swallow. No chills. Sleeping more than usual. Slight headache. No pain in ears. No vomiting. Mom looked in throat and saw white spots. She states he had an immune deficiency and gets sick often. PAST MEDICAL HISTORY: PAST MEDICAL HISTORY Diagnosis [...] delivered emergency because cord wrapped around his neck. born 8 lbs. went home with mom. [...] Hcl] MEDICATIONS Current Outpatient Medications Medication Sig benztropine (COGENTIN) 0.5 mg tablet Take 1 tablet by mouth two times a day. hydrOXYzine pamoate (VISTARIL) 25 mg capsule Take 1 capsule by mouth three times a day as needed. lithium carbonate (ESKALITH) 300 mg capsule Take 2 capsules by mouth two times a day. traZODone (DESYREL) 50 mg tablet Take 1 tablet by mouth daily at bedtime. paliperidone palm, 3 month, (INVEGA TRINZA) 819 mg/2.63 mL syrg To be given at office lamoTRIgine (LAMICTAL) 200 mg tablet Take 1 tablet by mouth two times a day. risperiDONE (RISPERDAL) 0.5 mg tablet Take 3 tablets by mouth two times a day. triamcinolone acetonide (KENALOG) 0.1 % ointment Apply to affected area two times a day. budesonide (PULMICORT FLEXHALER) 90 mcg/actuation aepb Inhale [...] as instructed every 6 hours as needed. sertraline (ZOLOFT) 100 mg tablet Take 100 mg by mouth once daily. ondansetron orally disintegrating (ZOFRAN ODT) 4 mg disintegrating tablet Take 1 tablet by mouth every 8 hours as needed for Nausea/Vomiting. albuterol HFA (PROVENTIL HFA, VENTOLIN HFA) 90 mcg/actuation inhaler Inhale 2 Puffs as instructed every 4 hours as needed. No current facility-administered medications for this visit. [...] Drug use: Never EXAM: BP 122/74 Pulse 99 Temp 36.3 C (97.4 F) Resp 16 Wt (!) 142.4 kg (314 lb) SpO2 97% BMI 43.96 kg/m PHYSICAL EXAM: General Appearance: Obese. Mouth is dry and crackles. Head: Normocephalic, no masses, lesions, tenderness or abnormalities. Ears: both ears impacted with wax. Nose/Sinuses: Nasal turbinates red, purulent matter and odor noted. Oropharynx: Lips, mucosa, and tongue dry and cracked, oropharynx red and dry Neck: thick full neck, tender to touch, no lymph nodes palpated. Lungs: GABRIEL diminished, otherwise CTA and chest rise & fall symmetrical. Heart: RRR without murmur, gallop, or rubs. No ectopy. LABS: ASSESSMENT/PLAN: 1. Acute maxillary sinusitis, recurrence not specified - ICD9: 461.0, ICD10: J01.00 - Will begin treatment with as per antibiotic as written, see orders - AMOXICILLIN 400 MG-POTASSIUM CLAVULANATE 57 MG CHEWABLE TABLET 2 chewable tablets 2 x day for 10 days - Saline nasal spray frequently - Off work through tomorrow Follow up as scheduled Discussed treatment plan and patient voices understanding. Patient's questions answered appropriately. Medications and potential side effects were discussed and patient voices understanding. Return to the office as scheduled or as needed for worsening/no improvement. Angelina Claudio APRN.CNS The patient indicates understanding of these issues and agrees with the plan. documented in this encounter [facility] 06-01-2023 Miscellaneous Notes Mother notified that letter could be picked up for off work all week. Mother wants letter attached to [employer] to print does not want to worm picker. Sent letter through [employer] Shredded printed letter Radha Bermudez MA Patient's mother calls back and states that she thinks that patient needs to be off all week. See Message Below Carey Cervantes RN Patient mother Annmarie calling asking for 2 more days off work. He was supposed to go back to work tomorrow. Asking to have note for work sent to his my chart. He has swollen uvula and being treated for strep. Please advise documented in this encounter [facility] 05-31-2023 Miscellaneous Notes Patient may be off work until June 05. documented in this encounter [facility] 05-30-2023 Instructions Angelina Claudio APRN.CNS - 05/30/2023 3:07 PM EDT 1) Benzonatate 100mg gel capsule- swallow whole for numbing the cough 2) Amoxicillin liquid 6ml 4 x day for 10 days 3) No work tomorrow 4) Follow up as scheduled documented in this encounter [facility] 05-30-2023 History of Presen t illness Narrative This is a 27 year old male who presents today with: Patient presents with: Cough: Dry cough for 2 days Sore Throat HISTORY OF PRESENT ILLNESS: Levy Todd is a 27 year old male. Patient presents with: Cough: Dry cough for 2 days Sore Throat Cough that started on Tuesday. Left ear hurting. Sore throat. A little headache. Using tylenol. No runny or stuffy nose. Chest tight. No N/V. No body aches. No fever or chills. PAST MEDICAL HISTORY: PAST MEDICAL HISTORY Diagnosis [...] delivered emergency because cord wrapped around his neck. born 8 lbs. went home with mom. [...] Hcl] MEDICATIONS Current Outpatient Medications Medication Sig benztropine (COGENTIN) 0.5 mg tablet Take 1 tablet by mouth two times a day. hydrOXYzine pamoate (VISTARIL) 25 mg capsule Take 1 capsule by mouth three times a day as needed. lithium carbonate (ESKALITH) 300 mg capsule Take 2 capsules by mouth two times a day. traZODone (DESYREL) 50 mg tablet Take 1 tablet by mouth daily at bedtime. paliperidone palm, 3 month, (INVEGA TRINZA) 819 mg/2.63 mL syrg To be given at office lamoTRIgine (LAMICTAL) 200 mg tablet Take 1 tablet by mouth two times a day. risperiDONE (RISPERDAL) 0.5 mg tablet Take 3 tablets by mouth two times a day. triamcinolone acetonide (KENALOG) 0.1 % ointment Apply to affected area two times a day. budesonide (PULMICORT FLEXHALER) 90 mcg/actuation aepb Inhale [...] as instructed every 6 hours as needed. sertraline (ZOLOFT) 100 mg tablet Take 100 mg by mouth once daily. ondansetron orally disintegrating (ZOFRAN ODT) 4 mg disintegrating tablet Take 1 tablet by mouth every 8 hours as needed for Nausea/Vomiting. albuterol HFA (PROVENTIL HFA, VENTOLIN HFA) 90 mcg/actuation inhaler Inhale 2 Puffs as instructed every 4 hours as needed. No current facility-administered medications for this visit. [...] use: Never Drug use: Never EXAM: BP 120/76 Pulse 84 Temp 36.3 C (97.3 F) (Left Tympanic) Resp 20 Wt (!) 139.7 kg (308 lb) SpO2 97% BMI 43.12 kg/m PHYSICAL EXAM: General Appearance: Sick appearing, alert, in no acute distress, well-hydrated, well nourished. and Overweight. Skin: Skin color, texture, turgor normal, no suspicious rashes or lesions. Head: Normocephalic, no masses, lesions, tenderness or abnormalities. Ears: External ears normal, canals clear. Oropharynx very dry and cracked, lips, tongue, and throat. Lungs: Lungs clear to auscultation. No wheezing, rhonchi, rales. Slightly diminished sarah. bases. Positive egophony bronchial. Very harsh cough. Heart: RRR without murmur, gallop, or rubs. No ectopy. Abdomen: Normal abdominal exam, Abdomen soft, non-tender. Bowel sounds normal. No masses, organomegaly. LABS: ASSESSMENT/PLAN: 1. Pharyngitis, unspecified etiology - ICD9: 462, ICD10: J02.9 - antibiotic as written 2. Acute bronchitis, unspecified organism - ICD9: 466.0, ICD10: J20.9 - Amoxicillin liquid per patient request due to difficulty swallowing - Communication Intelligence Discussed treatment plan and patient voices understanding. Patient's questions answered appropriately. Medications and potential side effects were discussed and patient voices understanding. Return to the office as scheduled or as needed for worsening/no improvement. Angelina Claudio APRN.CNS The patient indicates understanding of these issues and agrees with the plan. documented in this encounter [facility] 05-03-2023 Miscellaneous Notes [employer] message sent to patient regarding urinalysis. No urinary tract infection, trace leukocytes with no nitrates. No culture completed. Encouraged to drink fluids. documented in this encounter [facility] 05-02-2023 Miscellaneous Notes Addended by: ANGELINA CLAUDIO on: 05/02/2023 04:27 PM Modules accepted: Orders documented in this encounter [facility] 05-02-2023 Instructions Angelina Claudio APRN.CNS - 05/02/2023 4:22 PM EST 1) Covid booster today 2) Flu shot today 3) Get urinalysis- will send for reflex culture 4) Cogentin and vistaril renewed 5) Follow up as scheduled in August documented in this encounter [facility] 05-02-2023 History of Presen t illness Narrative This is a 27 year old male who presents today with: Patient presents with: Hospital F/U HISTORY OF PRESENT ILLNESS: Levy Todd is a 27 year old male. Patient presents with: Hospital F/U Out of vistaril and cogentin. Can't get into until June. Went home for all medications. Feeling better since discharged. Suprapubic pain intermittent. Urinating without difficulty. No fever or chills. Sharp pain. No blood in urine. No nausea or vomiting. Bowels moving ok. No diarrhea. Never had this pain before. Denies hopelessness or anxiety. Only when father calls- not good history there. Lost 7 lb. With effort. PAST MEDICAL HISTORY: PAST MEDICAL HISTORY Diagnosis [...] delivered emergency because cord wrapped around his neck. born 8 lbs. went home with mom. [...] Hcl] MEDICATIONS Current Outpatient Medications Medication Sig lithium carbonate (ESKALITH) 300 mg capsule Take 2 capsules by mouth two times a day. traZODone (DESYREL) 50 mg tablet Take 1 tablet by mouth daily at bedtime. paliperidone palm, 3 month, (INVEGA TRINZA) 819 mg/2.63 mL syrg To be given at office lamoTRIgine (LAMICTAL) 200 mg tablet Take 1 tablet by mouth two times a day. risperiDONE (RISPERDAL) 0.5 mg tablet Take 3 tablets by mouth two times a day. triamcinolone acetonide (KENALOG) 0.1 % ointment Apply to affected area two times a day. budesonide (PULMICORT FLEXHALER) 90 mcg/actuation aepb Inhale 2 Puffs as instructed two times a day. diclofenac (VOLTAREN ARTHRITIS PAIN) 1 % topical gel Apply 2 g to affected area four times daily. urea (CARMOL) 40 % Apply to affected [...] Take 0.5 mg by mouth twice daily. sertraline (ZOLOFT) 100 mg tablet Take 100 mg by mouth once daily. ondansetron orally disintegrating (ZOFRAN ODT) 4 mg disintegrating tablet Take 1 tablet by mouth every 8 hours as needed for Nausea/Vomiting. lidocaine (LIDODERM) 5 % Apply 1 Patch as directed every 12 hours. Remove old patch prior to placing new patch. Location: left leg benzonatate (TESSALON PERLES) 100 mg capsule Take 2 capsules by mouth three times a day as needed for cough. hydrOXYzine pamoate (VISTARIL) 25 mg capsule Take 25 mg by mouth. albuterol HFA (PROVENTIL HFA, VENTOLIN HFA) 90 mcg/actuation inhaler Inhale 2 Puffs as instructed every 4 hours as needed. No current facility-administered medications for this visit. [...] use: Never Drug use: Never EXAM: BP 118/74 Pulse 97 Resp 20 Wt (!) 139.3 kg (307 lb) SpO2 96% BMI 42.98 kg/m PHYSICAL EXAM: General Appearance: Well appearing, alert, in no acute distress, well-hydrated, well nourished.. Skin: Skin color, texture, turgor normal, no suspicious rashes or lesions. Head: Normocephalic, no masses, lesions, tenderness or abnormalities. Lungs: Lungs clear to auscultation. No wheezing, rhonchi, rales.. Heart: RRR without murmur, gallop, or rubs. No ectopy. Extremities: No deformities, edema, skin discoloration, clubbing or cyanosis. Good capillary refill. : Suprapubic discomfort- burning with urination. LABS: get UA with reflex ASSESSMENT/PLAN: 1. Schizoaffective disorder, bipolar type (HCC) - ICD9: 295.70, ICD10: F25.0 (primary diagnosis) Renewed brie and adele, has the others 2. Abdominal pain, unspecified abdominal location - ICD9: 789.00, ICD10: R10.9 Differential Diagnosis includes Constipation and UTI (most likely- dysuria) - check UA with reflex Discussed treatment plan and patient voices understanding. Patient's questions answered appropriately. Medications and potential side effects were discussed and patient voices understanding. Return to the office as scheduled or as needed for worsening/no improvement. Follow up Mr. Graham in August Angelina Claudio APRN.CNS The patient indicates understanding of these issues and agrees with the plan. documented in this encounter [facility] 04-18-2023 Discharge summary Note Date/Time April 17, 2023 3:36pm [facility] Medical Records Department [address] [place] [address] Emergency Department Summary 04/17/23 MR#: [id number] Acct: [id number] Name: LEVY TODD Rep #:[id number] : 1995 27 From: Yennifer ZABALA PCP: Dr. Turner Bundy MD Status:REG E R Location: ED <Statement entered by Sisi Zavala MD - 04/18/23 00:48> I have personally performed a face to face assessment of the patient and have reviewed the BINTA Note. Patient present secondary to suicidal ideation. Patient states that he woke this morning with suicidal thoughts and plan to either jump from a bridge or jump in front of traffic. He states he had a good day yesterday and does not know what changed today. He has had no recent changes to his psychiatric medication. He states he was started on lithium about a year ago. He does not know when the level was last checked. Patient sitting upright in bed no acute distress. Head and neck examination unremarkable. Heart is regular rate and rhythm. Lung sounds are clear. Abdomen is soft, obese, nontender. Lower extremity examination reveals 2 small areas of folliculitis on his left thigh that he has Lidoderm patch on. No sign of secondary infection. Lab work is largely unremarkable. COVID test is negative. Tox screen is positive only for opiates. EtOH is negative. Patient was seen by counseling center staff. They do request a pink slip and feel patient will need to be placed. He is currently pending at [facility]. He will be signed out to oncoming physician for further observation while awaiting placement. HPI History of Present Illness Chief Complaint: Suicidal Narrative Narrative: 27-year-old male has past medical history of schizoaffective disorder and PTSD and presents with suicidal ideation. Patient's and his family provide history. He had an inpatient mental health stay about a year ago and since then has been doing better. He sees a counselor and a psychiatrist and takes medications. Today he told his family he did not feel well and wanted to talk to a crisis counselor. He told the counselor he wants to end his life. He states it came on suddenly today and he is not sure why. Denies recent stressors. He states he has a plan to run in front of a car. 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 Pneumonia Psychiatric pseudoseizure PTSD (post-traumatic stress disorder) Schizophrenia Seizures Home Medications omeprazole 40 mg capsule,delayed release 40 mg PO DAILY 12/24/15 [History Last Taken Unknown] lamotrigine 200 mg tablet 200 mg PO BID 11/19/20 [History Last Taken Unknown] paliperidone 6 mg tablet,extended release 24 hr 3 mg PO QHS 06/02/22 [History Last Taken Unknown] paliperidone palm (3 month) 819 mg/2.63 mL intramuscular syringe (Invega Fioza)819 mg IM Q3M 06/02/22 [History Last Taken 05/31/22] albuterol sulfate 90 mcg/actuation aerosol inhaler 2 puff inhalation Q6H PRN shortness of breath or wheezing 04/17/23 [History Last Taken Unknown] bisacodyl 5 mg tablet,delayed release (Dulcolax (bisacodyl)) 5 mg PO DAILY PRN constipation 04/17/23 [History Last Taken Unknown] dicyclomine 10 mg capsule 10 mg PO TID 04/17/23 [History Last Taken Unknown] docusate sodium 100 mg capsule (Colace) 100 mg PO DAILY 04/17/23 [History Last Taken Unknown] lidocaine 5 % topical patch 1 patch transdermal DAILY 04/17/23 [History Last Taken Unknown] lithium carbonate 300 mg capsule 300 mg PO QHS 04/17/23 [History Last Taken Unknown] sertraline 100 mg tablet 100 mg PO Q24H 04/17/23 [History Last Taken Unknown] triamcinolone acetonide 0.1 % topical ointment 1 applic topical BID PRN muscle relaxer 04/17/23 [History Last Taken Unknown] urea 40 % topical cream 1 applic topical DAILY 04/17/23 [History Last Taken Unknown] Allergy/AdvReac Type Severity Reaction Status Date / Time bee venom protein (honey bee) Allergy Anaphylaxis Verified 04/17/23 15:12 carbamazepine [From Tegretol] Allergy Unknown Verified 04/17/23 15:12 divalproex sodium Allergy Other Verified 04/17/23 15:12 [From Depakote] methylphenidate Allergy Unknown Verified 04/17/23 15:12 [From Concerta] methylphenidate HCl Allergy Unknown Verified 04/17/23 15:12 [From Ritalin] phenobarbital Allergy Hives Verified 04/17/23 15:12 Family History Other Asthma Diabetes Hypertension Kidney disease Surgical History H/O hernia repair Hx of cholecystectomy Hx of tympanostomy tubes Social History household members: family housing: house Smoking Status: Never smoker alcohol intake: never ROS ROS ED ROS Narrative Constitutional: Negative for fever, chills, malaise. CVS: Negative for chest pain Respiratory: Negative for shortness of breath. EXAM Physical Exam Narrative Exam Narrative: CONST: Patient sitting in no acute distress. EYES: Normal inspection. NECK: Normal inspection. RESP: No respiratory distress, CTAB. CVS: Regular rate and rhythm, no murmur, no gallop. SKIN: Color normal, no rash, warm, dry, intact. EXTREMITIES: Normal appearance, no pedal edema. NEURO: Oriented x4. PSYCH: Normal affect. Const Vital Signs: 04/17/23 15:12 04/17/23 19:36 04/17/23 23:44 Temperature 97.4 F L 97.2 F L 97.7 F L Temperature Source Temporal Temporal Temporal Pulse Rate 102 H 89 80 Respiratory Rate 18 18 18 Blood Pressure 130/82 H 116/88 H Blood Pressure Mean 98 97 Pulse Ox 96 93 94 Oxygen Delivery Method Room Air Room Air Room Air MDM MDM MDM Narrative Medical decision making narrative: History gathered from: Patient, mom Patient has history of schizoaffective disorder and PTSD presents with suicidal ideation with a plan to run in front of a car. He was sent in after talking with the crisis counselor for evaluation. He is awake alert in no distress. Heis cooperative during the exam. Screening labs were ordered. CBC and CMP are unremarkable. Urine tox is positive for opiates. Alcohol negative. Chamberlain level is low which could be from him not taking the medication or a low-dose. COVID-19 test is negative. Patient is medically cleared and will be evaluated by crisis. Crisis counselor recommended inpatient treatment and pink slip was filled out. Patient is awaiting placement. Lab Data Attestation: I reviewed the patient's lab results. Labs: Laboratory Results - last 24 hr 04/17/23 04/17/23 15:27 15:35 WBC 7.1 RBC 4.75 Hgb 12.0 L Hct 38.7 L MCV 81.5 MCH 25.3 L MCHC 31.0 L RDW Std Deviation 42.2 RDW Coeff of Nano 14.3 Plt Count 275 MPV 8.9 Immature Gran % (Auto) 0.300 Neut % (Auto) 68.8 Lymph % (Auto) 22.8 Knott % (Auto) 8.0 Eos % (Auto) 0.0 Baso % (Auto) 0.1 Absolute Neuts (auto) 4.9 Absolute Lymphs (auto) 1.63 Nucleated RBC % 0 Sodium 139 Potassium 3.8 Chloride 110 H Carbon Dioxide 24.0 Anion Gap 5 BUN 7 Creatinine 0.75 Estim Creat Clear Calc 202.89 Est GFR (MDRD) Af Amer 157 Est GFR (MDRD) Non-Af 130 BUN/Creatinine Ratio 9.3 L Glucose 114 H Calcium 8.8 Total Bilirubin 0.20 AST 24 ALT 38 Alkaline Phosphatase 73 Total Protein 7.0 Albumin 3.4 Globulin 3.6 Albumin/Globulin Ratio 0.9 Urine Opiates Screen POSITIVE H Urine Methadone Screen NEGATIVE Ur Barbiturates Screen NEGATIVE Ur Phencyclidine Scrn NEGATIVE Ur Amphetamines Screen NEGATIVE MDMA (Ecstasy) Screen NEGATIVE U Benzodiazepines Scrn NEGATIVE Chamberlain < 0.20 L Urine Cocaine Screen NEGATIVE U Cannabinoids Screen NEGATIVE Ur Drug Screen Comment Ethyl Alcohol < 3.0 EKG Initial EKG: Attestation: I personally reviewed and interpreted this EKG as follows: Interpretation: Sinus Rhythm and No Acute Injury Pattern Comments: Normal sinus rhythm at 96 bpm Normal intervals, no acute ischemic change Discharge Plan Triage Chief Complaint: Suicidal ED Midlevel Provider: Yennifer Will ED Provider: Sisi Zavala Dx/Rx/DC Orders Clinical Impression: Depression with suicidal ideation Prescriptions: No Action omeprazole 40 MG capsule 40 mg PO DAILY lamotrigine 200 mg tablet 200 mg PO BID paliperidone 6 mg tablet extended release 24hr 3 mg PO QHS Invega Trinza 819 mg/2.63 mL syringe 819 mg IM Q3M lidocaine 5 % adhesive patch,medicated 1 patch transdermal DAILY Patient Comments: apply 1 patch as directed every 12 hours REMOVE OLD patch PRIOR T... (REFER TO PRESCRIPTION NOTES). left leg albuterol sulfate 90 mcg/actuation HFA aerosol inhaler 2 puff INHALATION Q6H PRN (Reason: shortness of breath or wheezing) Patient Comments: inhale 2 puffs by mouth INSTRUCTED EVERY 6 HOURS NEEDED lithium carbonate 300 mg capsule 300 mg PO QHS dicyclomine 10 mg capsule 10 mg PO TID Patient Comments: take 1 capsule by mouth before meals and AT BEDTIME sertraline 100 mg tablet 100 mg PO Q24H triamcinolone acetonide 0.1 % ointment 1 applic TOPICAL BID PRN (Reason: muscle relaxer) Patient Comments: apply to affected area twice a day left upper thigh urea 40 % cream 1 applic TOPICAL DAILY Patient Comments: apply to affected area once daily bilat feet docusate sodium [Colace] 100 mg capsule 100 mg PO DAILY bisacodyl [Dulcolax (bisacodyl)] 5 mg tablet,delayed release (DR/EC) 5 mg PO DAILY PRN (Reason: constipation) Primary Care Provider: Turner Bundy Referrals: Turner Bundy MD [Primary Care Provider] - What to do if you have Problems For any increased pain, shortness of breath, bleeding, nausea or vomiting, chestpain, or any unexpected problems, contact your Primary Care Provider. Call [facility] ([phone]) or report to the closest Emergency Room. Call 911 if necessary. 04/17/232022 <Electronically signed by Yennifer ZABALA> Cosigner Signature (if applicable): 04/18/2347 <Electronically signed by Sisi Zavala MD> CC: Dr. Turner Bundy MD ~ Signed [facility] Work Phone: [phone] History of Present illness Narrative* Francy Mittal APRN.NON DESTRUCTIVE TESTING TECHNICIAN - 04/12/2023 2:15 PM EST This is a 27 year old male [...] 6 before him. premature labor. delivered emergency becausecord wrapped around his neck. born 8 lbs. went home with mom. [...] as needed for worsening/no improvement. Francy Mittal APRN.NON DESTRUCTIVE TESTING TECHNICIAN [facility] History of Present illness Narrative* Woo Vargas APRN.NON DESTRUCTIVE TESTING TECHNICIAN - 04/06/2023 5:40 PM EST Images from the original note were not [...] 6 before him. premature labor. delivered emergency becausecord wrapped around his neck. born 8 lbs. went home with mom. [...] LIDOCAINE 5 % TOPICAL PATCH Woo Vargas APRN.NON DESTRUCTIVE TESTING TECHNICIAN documented [facility] Miscellaneous Notes* Telephone Encounter - Li Mancini LPN - 04/06/2023 11:04 AM EST No response on the PA for the fluticasone(flovent) from 03/22/23. Called the pharmacy and they report pt did not pick this up PA is still required. Pharmacy says looks like formulary is Pulmicort. Reviewed with pts mother. She would like the formulary. Pt is better but still with coughing and some wheezing. * Telephone Encounter - Colleen Foster LPN - 03/23/2023 1:55 PM EST Prior Authorization has been completed online at [email or web address] for Fluticasone, will await response. CARRILLO- [id number] Please keep encounter open until final decision has been received and documented from insurance company. Claudia Foster LPN [facility] History of Present illness Narrative* Leah Guillen RT(R) - 03/22/2023 3:20 PM EST Radiology Service Progress Note PATIENT NAME: Levy Todd DATE OF SERVICE: March 22, 2023 TIME: 3:17 PM PATIENT IDENTITY VERIFICATION COMPLETED USING TWO (2) IDENTIFIERS: Name and Date of confirmedby patient verbally. FALL SCREENING: Has the patient [...] RT Annette(R) March 22, 2023 3:17 PM [facility] History of Present illness Narrative* Nadia Eaton LPN - 01/03/2023 2:[address] Solares, Levy was provided with replacement Aircast, size L, and instructed/educated in its application, wear, and care. All questions were answered, and patient was able to demonstrate competence with the necessary skills to utilize the above equipment. Replacement cost will be handled through [employer]. Nadia Eaton LPN * Fern Solares - 01/03/2023 2:42 PM EST Images from the original note were not [...] -- No results found for: HBA1C PCP: Turner Bundy MD PAST MEDICAL HISTORY Diagnosis Date Acute [...] 6 before him. premature labor. delivered emergency becausecord wrapped around his neck. born 8 lbs. went home with mom. [...] pain returns, consider mri F/u prn Fern Solares DPM * Ashleigh Hays RN - 01/03/2023 2:17 PM EST AMB ROOMING INTAKE FLOWSHEET DATA Pain Pain [...] than it had been. documented in [facility] Instructions* Patient Instructions* Fern Solares - 01/03/2023 2:49 PM EST Transition to shoe Tylenol twice daily Ice foot in cold water bath tub x 10 minutes twice daily If pain fails to improve within the next 2-3 weeks, return to boot and call Dr. Solares documented in [facility] Miscellaneous Notes* Telephone Encounter - Kely Cerna LPN - 12/28/2022 9:19 AM EDT Patient has been identified by name and date of : Yes, Provider Dr Bundy Date 12/28/22 Parent/Guardian phones for refill(s): Requested [...] you. Kely Cerna LPN. documented in this encounterMem[facility] History of Present illness Narrative* Ashleigh Hays, LO - 12/17/2022 2:[address] Solares, Levy was provided with Pneumatic walking boot, size Large, and instructed/educated in its application, wear, and care. All questions were answered, and patient was able to demonstrate competence with the necessary skills to utilize the above equipment. Patient signed DJ[employer] Patient agreement. [employer] to bill patient's insurance for product. Ashleigh Hays, LO * Fern Solares - 12/17/2022 1:49 PM EDT Images from the original note were not included. FOLLOW UP PODIATRIC OFFICE VISIT Chief Complaint: This 27 year old who presents for follow up:right great toe pain Patient presents to clinic for follow-up right great toe pain. Patient states the pain in his greattoe is still present but is getting better. [...] Medication No results found for: HBA1C PCP: Turner Bundy MD PAST MEDICAL HISTORY Diagnosis Date Acute [...] 6 before him. premature labor. delivered emergency becausecord wrapped around his neck. born 8 lbs. went home with mom. [...] weeks. Call if any issues arise Fern Solares DPM * Izzy Goode LPN - 12/17/2022 1:37 PM EDT Patient presents with: Right Ankle - Established Patient, Pain Right Foot - Pain, Established Patient Previously seen for pain in right toe but presents today for pain in right ankle and right foot. Patient denies pain in right toe today. Izzy Goode LPN documented in this encounterMem[facility]23 Miscellaneous Notes* Telephone Encounter - Nadia Eaton LPN - 12/09/2022 10:46 AM EDT Patient is schedule on 12/17/2022. Nadia Eaton LPN * Telephone Encounter - Izzy Goode LPN - 12/01/2022 4:29 PM EDT Dacia, mom/guardian, called. Patient near phone as [...] advise. Izzy Goode LPN documented in this encounterMem[facility]10-12-2023 Miscellaneous Notes* Telephone Encounter - Nadia Eaton LPN - 12/09/2022 9:20 AM EDT Mother returned call and patient is schedule for 12/17/2022 and advised to present to ED/ Urgent care if symptoms worsen. Mother verbalized understanding. Nadia Eaton LPN * Telephone Encounter - Nadia Eaton LPN - 12/09/2022 8:45 AM EDT Called patients mother to schedule a sooner appointment. No response. VM full. Nadia Eaton LPN * Telephone Encounter - Fern Solares - 12/09/2022 8:28 AM EDT Try to add him in for next week. If anything urgent, present to ed Fern Solares DPM * Telephone Encounter - Kimmie Patton - 12/08/2022 4:47 PM EDT Pts mother calling to report that pt is in a lot of pain. They were not able to get an appt until January 03. This is in regard to the [employer] message from 11/06. Explained that provider is going to be out of the office for a few days but we would see if there was any place he could be worked in. Sending to [facility] nurses. Kimmie Patton MA documented in this encounterMemorial [facility]10-09-2023 Nurse Note* Abby Rosen - 12/06/2022 2:38 PM EDT Ambulatory Ear Lavage Pre-treatment: Warm water Treatment: Both ears Equipment and Irrigation solution and Volume used: Single use syringe with single use irrigation tip Water Return flow appearance: Brown Yellow Patient tolerated procedure: yes Tympanic membrane assessment: Tympanic membrane assessed by LIP pre and post procedure Abby Rosen documented in this encounterMemorial [facility]10-09-2023 History of Present illness Narrative* Jatin Herrera MD - 12/06/2022 2:06 PM EDT Patient presents with: Sinus Problem: sinus pressure [...] 6 before him. premature labor. delivered emergency becausecord wrapped around his neck. born 8 lbs. went home with mom. [...] water irrigation. - AMBULATORY EAR LAVAGE/IRRIGATION Jatin Herrera MD documented in this encounterMemorial [facility]10-06-2023 Miscellaneous Notes* Telephone Encounter - Belen Doan LPN - 12/03/2022 4:39 PM EDT Patient has been identified by name and [...] you. Belen Doan LPN documented in this encounterMemorial [facility]09-06-2023 History of Present illness Narrative* Daniel Vaz RT(R) - 11/03/2022 4:10 PM EDT Radiology Service Progress Note PATIENT NAME: Levy Todd DATE OF SERVICE: November 03, 2022 TIME: 4:15 PM PATIENT IDENTITY VERIFICATION COMPLETED USING TWO (2) IDENTIFIERS: Name and Date of confirmedby patient verbally. FALL SCREENING: Has the patient had 2 falls in the last year or 1 fall with injury or currently using an Ambulatory Assistive Device (Walker, Cane, Wheelchair, Crutches, etc.)? No PATIENT GENDER DATA: Male PATIENT RELEVANT IMPLANT DATA REVIEWED: Not Applicable RADIOLOGY DEPARTMENT: General X-ray: Exam(s) Completed: Lower Extremity X- Ray(s): Foot, Right and Wt. Bearing and Toes, Right PERIPHERAL IV DATA: Not applicable SIGNED BY: RT Lea(R) November 03, 2022 4:15 PM documented in this encounterMemorial [facility]09-06-2023 History of Present illness Narrative* Fern Solares - 11/03/2022 3:47 PM EDT Images from the original note were not included. Consultation requested by Dr. Bundy for an opinion regarding right great toe [...] to the tip Patient recently went to [facility] and had xrays done. No fracture. Was told to ice the foot He went to his pcp who prescribed mobic. Mobic does help He still has pain however. PAIN EVALUATION 11/03/2022 1241 Pain Level: 5 Pain Location: Foot-Right Description: Aching;Cramping;Pressure Duration Amount of Time: 4 Duration Units: Weeks Frequency: Continuous Intervention/Comfort measure: Medication;Cold;Positioning No results found for: HBA1C PCP: Turner Bundy MD PAST MEDICAL HISTORY Diagnosis Date Acute [...] 6 before him. premature labor. delivered emergency becausecord wrapped around his neck. born 8 lbs. went home with mom. [...] with results of xray. Anthony ordered Fern Solares DPM * Nadia Eaton LPN - 11/03/2022 3:21 PM EDT AMB ROOMING INTAKE FLOWSHEET DATA Pain Pain Level: 5 Pain Location: Foot-Right Description: Aching, Cramping, Pressure Duration Amount of Time: 4 Duration Units: Weeks Frequency: Continuous Intervention/Comfort measure: Medication, Cold, Positioning Patient presents with: Right Great Toe - Established Patient, Pain, Numbness Patient present to office with mother. Nadia Eaton LPN documented in this encounterMemorial [facility]08-23-2023 Nurse Note* Nimco Taylor LPN - 10/20/2022 5:09 PM EDT Ambulatory Ear Lavage Pre-treatment: Warm water Treatment: Right ear Equipment and Irrigation solution and Volume used: Single use syringe with single use irrigation tip Return flow appearance: Yellow Other with large amount of brown solid pieces Patient tolerated procedure: yes Tympanic membrane assessment: Tympanic membrane assessed by LIP pre and post procedure documented in this encounterMemorial [facility]08-23-2023 Instructions* Patient Instructions* Turner Bundy MD - 10/20/2022 5:03 PM EDT Debrox can be used to flush ears at home. documented in this encounterMemorial [facility]08-23-2023 History of Present illness Narrative* Turner Bundy MD - 10/20/2022 4:27 PM EDT Patient presents with: Ear Problem HPI: Patient [...] 6 before him. premature labor. delivered emergency becausecord wrapped around his neck. born 8 lbs. went home with mom. [...] past medical history, surgical history, family history andsocial history today. REVIEW OF SYSTEMS All other [...] ICD9: 380.4, ICD10: H61.21 - as above. Turner Bundy MD documented in this encounterMemorial [facility]08-16-2023 History of Present illness Narrative* Turner Bundy MD - 10/13/2022 4:20 PM EDT Patient presents with: ER F/U HPI: Patient presents today for office visit for follow up. HOSPITAL/ER FOLLOW UP: Reason for visit: right great toe pain-no injury was in bed when it locked up Which facility: [facility] Date of visit: 10/11/22 Diagnosis: toe pain [...] 6 before him. premature labor. delivered emergency becausecord wrapped around his neck. born 8 lbs. went home with mom. [...] past medical history, surgical history, family history andsocial history today. REVIEW OF SYSTEMS All other [...] TO PODIATRY - MELOXICAM 7.5 MG TABLET Turner Bundy MD documented in this encounterMemorial [facility]08-14-2023 Discharge summary Author Vazquez Miller [facility] October 11, 2022 10:15pm Note Date/Time October 11, 2022 9: 58pm [facility] Medical Records Department [address] [place] [address] Emergency Department Summary 10/11/22 MR#: [id number] Acct: [id number] Name: LEVY TODD Rep #:[id number] : 1995 27 From: Vazquez Miller MD PCP: Dr. Turner Bundy MD Status:PRE E R Location: ED HPI History of Present Illness HPI Narrative: 27-year-old autistic male complaining of atraumatic right great toe pain. He states it is locked. Denies any injury. He has previously had the great toenail removed due to an infection. Chief Complaint: Lower Extremity Injury Informant: patient and family Occured/Mechanism Mechanism/Context: No injury and No blunt trauma Onset/Context/Timing Onset: Today Context: Gradual Onset Timing: Continuous Quality of Pain: Dull Current Severity: Mild Maximum Severity: Mild Narrative Narrative: No history of gout. No trauma or surgery to his foot. No redness or drainage. 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 Pneumonia Psychiatric pseudoseizure PTSD (post-traumatic stress disorder) Schizophrenia Seizures Home Medications omeprazole 40 mg capsule,delayed release 40 mg PO DAILY 12/24/15 [History Last Taken Unknown] lamotrigine 200 mg tablet 200 mg PO BID 11/19/20 [History Last Taken Unknown] trazodone 50 mg tablet 50 mg PO QHS 08/17/21 [History Last Taken Unknown] paliperidone 6 mg tablet,extended release 24 hr 6 mg PO QHS 06/02/22 [History Last Taken Unknown] paliperidone palm (3 month) 819 mg/2.63 mL intramuscular syringe (Invega Trinza)819 mg IM Q3M 06/02/22 [History Last Taken 05/31/22] Allergy/AdvReac Type Severity Reaction Status Date / Time bee venom protein (honey bee) Allergy Anaphylaxis Verified 10/11/22 20:33 carbamazepine [From Tegretol] Allergy Unknown Verified 10/11/22 20:33 divalproex sodium Allergy Other Verified 10/11/22 20:33 [From Depakote] methylphenidate Allergy Unknown Verified 10/11/22 20:33 [From Concerta] methylphenidate HCl Allergy Unknown Verified 10/11/22 20:33 [From Ritalin] phenobarbital Allergy Hives Verified 10/11/22 20:33 Family History Other Asthma Diabetes Hypertension Kidney disease Surgical History H/O hernia repair Hx of cholecystectomy Hx of tympanostomy tubes Social History household members: family housing: house Smoking Status: Never smoker alcohol intake: never ROS ROS ED ROS Narrative Denies. Review of Systems ROS Unobtainable: Denies due to encephalopathy Constitutional Constitutional ED: Denies chills or fever(s) Eyes Eyes: Denies blurry vision ENT ENT ED: Denies ear pain Cardiovascular Cardiovascular: Denies chest pain Respiratory/Chest Respiratory/Chest: Denies cough or dyspnea Gastrointestinal Gastrointestinal: Denies abdominal pain Genitourinary Genitourinary ED: Denies dysuria Musculoskeletal Musculoskeletal: Denies arthralgias Integumentary Denies abscess Neurologic Neurologic: Denies headache(s) Psychiatric Psychiatric: Denies anxiety Endocrine Endocrinology: Denies polydipsia Hematologic/Lymphatic Hematologic/Lymphatic: Denies easy bleeding Allergic/Immunologic Allergic/Immunologic ED: Denies mouth swelling EXAM Physical Exam Narrative Exam Narrative: 18-year-old male no acute distress. Vital signs stable afebrile. To room and present in the room with the patient. H EENT exam unremarkable. Neck nontender. Lungs clear. Heart regular rhythm no murmur. Abdomen soft nontender. Moving all 4 extremities. Right foot neurovascular intact. Right hip, knee and ankle nontender nonswollen. No redness or warmth. Right foot appears normal. Normal DP pulse. Normal cap refill. Normal touch sensation. He complains of mild discomfort and that he cannot move his right toe normally. There is no swelling. There is no redness. The nail has previously been removed. There is no streaks or pus. No bony deformity. Const Vital Signs: 10/11/22 20:33 Temperature 98.3 F Temperature Source Temporal Pulse Rate 94 Respiratory Rate 16 Blood Pressure 144/82 H Blood Pressure Mean 102 Pulse Ox 96 Positive well nourished and well developed; Negative for cachectic, contracturesor unkempt General Appearance ED: well developed and NAD; Negative for unkempt, cachectic or contractures Nutritional Appearance: Negative for cachectic HEENT Reports moist mucous membranes normocephalic and atraumatic; Negative for trauma or tenderness Eyes General Eye ED: Negative for other Neck full ROM and supple Thyroid: Negative for tender or other Lymph Lymphatic: Negative for other Chest Wall inspection of chest normal and palpation of chest normal Chest: Negative for other Resp normal respiratory effort, no retractions and clear to auscultation bilaterally Effort and Inspection: Negative for pain with movement Auscultation: Negative for rales, rhonchi or wheezes Cardio regular rate, regular rhythm, S1 normal heart sound, S2 normal heart sound and no murmurs Rate: Negative for bradycardia or tachycardic Rhythm: Negative for abnormal rhythm Bruits: Negative for other GI non-tender, non-distended and no masses Inspection: Negative for abdominal distention Auscultation: normoactive bowel sounds Palpation: soft; Negative for tender or guarding Back/Spine no CVA tenderness General Back: Negative for CVA tenderness or swelling Cervical Spine: Negative for cervical spine tenderness Extremity normal to inspection and full ROM General Extremety ED: Negative for cyanosis or edema General Extremity: Negative for cyanosis or edema Neuro oriented x3 and CN's II-XII intact bilaterally Sensorium / Orientation: alert, oriented to person and oriented to place Motor Exam: strength 5/5 throughout Psych mental status grossly normal Appearance: Negative for unkempt Speech: No other Mood & Affect: Negative for anxious Skin no wounds Lesions: no lesions Rashes: no rashes Trauma: Negative for abrasion MDM MDM MDM Narrative Medical decision making narrative: Patient complaining of right foot pain. Exam is normal. There is no signs of infection. No deformity. No history of trauma. X-ray of be obtained. There is no puncture wound. This may be secondary to the patient's underlying psychiatric illness and autism. Patient doing well will be discharged to home at 10:15 PM. Radiography Chest X-Ray - ED: Read by ED Physician Diagnostic Testing: Right foot x-ray, 3 views, chart myself shows no acute abnormality. There is some arthritis to the right great toe at the interphalangeal joint. Possibly anold avulsion. No acute fracture. No dislocation. I did go over the x-rays with the patient and family. Discharge Plan Triage Chief Complaint: Lower Extremity Injury ED Provider: Vazquez Miller Dx/Rx/DC Orders Clinical Impression: History of autism, Great toe pain Prescriptions: No Action omeprazole 40 MG capsule 40 mg PO DAILY lamotrigine 200 mg tablet 200 mg PO BID trazodone 50 mg Tablet 50 mg PO QHS paliperidone 6 mg tablet extended release 24hr 6 mg PO QHS Invega Trinza 819 mg/2.63 mL syringe 819 mg IM Q3M Primary Care Provider: Turner Bundy Referrals: Turner Bundy MD [Primary Care Provider] - As Needed Activity Restrictions/Additional Instructions: X-rays look good. Ice to the foot. Motrin for pain and swelling. Tylenol for pain. This should progressively get better. If not follow-up. Disposition Disposition: Home, Self Care What to do if you have Problems For any increased pain, shortness of breath, bleeding, nausea or vomiting, chestpain, or any unexpected problems, contact your Primary Care Provider. Call [facility] ([phone]) or report to the closest Emergency Room. Call 911 if necessary. 10/11/222214 <Electronically signed by Vazquez Miller MD> Cosigner Signature (if applicable): CC: Dr. Turner Bundy MD ~ Signed [facility] Work Phone: [phone] [phone] History of Present illness Narrative* Turner Bundy MD - 09/13/2022 3:10 PM EDT Patient presents with: Cough HPI: Patient presents today for office visit for follow up Still with cough. States that never got any better. Finished Doxy on 09/07/22. States that trying touse Albuterol. Was up again all night last [...] 6 before him. premature labor. delivered emergency becausecord wrapped around his neck. born 8 lbs. went home with mom. [...] past medical history, surgical history, family history andsocial history today. REVIEW OF SYSTEMS All other [...] MG TABLET - BENZONATATE 100 MG CAPSULE Turner Bundy MD documented in this encounterMemorial [facility]07-07-2023 History of Present illness Narrative* Jose Arredondo, RT(R) - 09/03/2022 4:50 PM EDT Radiology Service Progress Note PATIENT NAME: Levy Todd DATE OF SERVICE: September 03, 2022 TIME: 4:42 PM PATIENT IDENTITY VERIFICATION COMPLETED USING TWO (2) IDENTIFIERS: Name and Date of confirmedby patient verbally. FALL SCREENING: Has the patient [...] RT Santiago(R) September 03, 2022 4:42 PM documented in this encounterMemorial [facility]07-07-2023 History of Present illness Narrative* Turner Bundy MD - 09/03/2022 4:05 PM EDT Patient presents with: Cough HPI: Patient presents today for office visit for [facility] follow up. Was seen in [facility] on 08/31/22 for cough. Per mom cough has been on going for almost two weeks. Hast gotten worse over the last 5 days. Coughcame on gradually. Cough is worse at night [...] 6 before him. premature labor. delivered emergency becausecord wrapped around his neck. born 8 lbs. went home with mom. [...] past medical history, surgical history, family history andsocial history today. REVIEW OF SYSTEMS GI: No nausea, vomiting, or diarrhea All other reviewed and negative other than HPI. VITALS: BP 108/64 Pulse 95 Temp 37.7 C (99.8 F) Ht 185.4 cm (6' 1) Wt (!) 141.2 kg (311 lb 3.2 oz) SpO2 95% BMI 41.06 kg/m Last 4 Encounter Wt Readings: Date: Wt: 08/31/2022 141.1 kg (311 lb) 08/19/2022 140.1 kg (308 lb 12.8 oz) 08/17/2022 140.2 kg (309 lb) 07/01/2022 144.2 kg (318 lb) PHYSICAL EXAMINATION: General appearance: Well appearing, alert, in no acute distress, well-hydrated, well nourished. andmoist cough. Skin: Skin color, texture, turgor normal, [...] MG TABLET - XR CHEST 2V FRONTAL/LAT Turner Bundy MD documented in this encounterMemorial [facility]07-07-2023 Miscellaneous Notes* Telephone Encounter - Danika Johnson RN - 09/03/2022 8:18 AM EDT Pt's mother Dacia calling to request appt for pt today. Mother states pt was seen in on 08/31 for lower respiratory infection and was ordered doxycycline,benzonatate and albuterol inhaler. Mother reports pt's was up all night last night coughing. Reports she feels his cough has worsened-is so deep in his chest. Pt continues with wheezing. Denies SOB, chest pain, fever, chills, sweats, hemoptysis, N/V/D. Appt made with Dr. uBndy for today for further evaluation of patient, as requested. Danika Johnson RN documented in this encounterMemorial Health [facility]07-06-2023 Miscellaneous Notes* Telephone Encounter - Nimco Taylor LPN - 09/02/2022 3:04 PM EDT Letter sent to mom. She needed letter stating just what is ordered from Dr Bundy and when to take it. Levy is going to stay somewhere else for awhile and in order for them to give him the medications she needs the letter. [facility] * Telephone Encounter - Carey Cervantes RN - 09/02/2022 2:42 PM EDT Patient's mother calls and is asking for a list of patient's medications as well as when medications should be given. Please review and advise, Carey Cervantes RN documented in this encounterMemorial Health System [facility]06-22-2023 History of Present illness Narrative* SAGRARIO Francois - 08/19/2022 10:42 AM EDT This note was created using [employer]pluck. Subjective Levy Todd is a 26 year [...] 6 before him. premature labor. delivered emergency becausecord wrapped around his neck. born 8 lbs. went home with mom. [...] ER evaluation. SAGRARIO Francois documented in this encounterMemorial Health [facility]06-20-2023 History of Present illness Narrative* SAGRARIO Francois - 08/17/2022 2:29 PM EDT This note was created using Ilink Systemsriter. Subjective Levy Todd is a 26 year [...] 6 before him. premature labor. delivered emergency becausecord wrapped around his neck. born 8 lbs. went home with mom. [...] F) Resp 16 Ht 185.4 cm (6' 1) Wt (!) 140.2 kg (309 lb) BMI [...] ER evaluation. SAGRARIO Francois documented in this encounterMemorial Health [facility]05-30-2023 Miscellaneous Notes* Telephone Encounter - Xochilt Quick LPN - 07/27/2022 9:48 AM EDT Mother calls for two things: 1) Pt [...] patient. Xochilt Quick LPN documented in this encounterMemorial Health [facility]05-05-2023 History of Present illness Narrative* Jose Arredondo RT(R) - 07/02/2022 3:20 PM EDT Radiology Service Progress Note PATIENT NAME: Levy Todd DATE OF SERVICE: July 02, 2022 TIME: 3:20 PM PATIENT IDENTITY VERIFICATION COMPLETED USING TWO (2) IDENTIFIERS: Name and Date of confirmedby patient verbally. FALL SCREENING: Has the patient [...] RT Santiago(R) July 02, 2022 3:20 PM documented in this encounterMemorial Health [facility]05-05-2023 Miscellaneous Notes* Telephone Encounter - Cris Guerrero LPN - 07/02/2022 10:12 AM EDT Phone call placed spoke to patient's parent advised ( see prior provider encounter) Patients parent verbalized understanding, agreed with plan of care reported she had been contacted prior with results, aware of STAT order plans to arrive around 3:00 07/02/2022. Cris Guerrero LPN * Telephone Encounter - Shraddha Concepcion RN - 07/01/2022 4:57 PM EDT Call placed to patient/mother with no answer. Voicemail left for patient/mother to return call and ask to speak to a triage nurse to receive provider message. Shraddha Concepcion RN * Telephone Encounter - Turner Bundy MD - 07/01/2022 4:35 PM EDT Let them know his kub came back. The radiologist felt no blockage. His small intestine appeared mildly filled with gas. Call if worsens. Recheck kub tomorrow to make sure is not changing documented in this encounterMemorial Health [facility]05-04-2023 History of Present illness Narrative* Turner Bundy MD - 07/01/2022 4:12 PM EDT Patient presents with: Abdominal Pain: 2 day [...] always. Was taking some of moms bentyl withmild relief. He points to pain being in [...] Abs Lymph 1.00 - 4.00 k/uL 2.72 Knott% % 7.2 Abs Knott <0.87 k/uL 0.54 Eosin% % 0.0 Abs [...] Negative Ketones, Urine Trace, Negative Negative Specific [place], Ur 1.005 - 1.030 1.010 Hemoglobin/Blood,Ur Negative, Trace Negative pH, Urine 5.0 - 8.0 6.5 Protein, Urine Trace, Negative Negative Urobilinogen Negative Negative Nitrites Negative Negative Leukest Negative, 25 Sandra/uL 25 Sandra/uL WBC, Urine 0-5 /HPF 0-5 /HPF RBC, Urine 0-3 /HPF 0-3 /HPF Epithelial Cells /HPF Few Lipase 16 - 61 U/L 15 (L) Chamberlain 0.6 - 1.2 mmol/L 0.4 (L) Culture [...] 6 before him. premature labor. delivered emergency becausecord wrapped around his neck. born 8 lbs. went home with mom. [...] past medical history, surgical history, family history andsocial history today. REVIEW OF SYSTEMS All other reviewed and negative other than HPI. VITALS: BP 112/70 Pulse 79 Ht 185.4 cm (6' 1) Wt (!) 144.2 kg (318 lb) SpO2 [...] week. Overall is feeling better today. MD Turner Mirza MD documented in this encounterMemorial Health [facility]05-04-2023 Miscellaneous Notes* Telephone Encounter - Nimco Taylor LPN - 07/01/2022 11:17 AM EDT Faxed as requested. * Telephone Encounter - Turner Bundy MD - 07/01/2022 8:42 AM EDT Can we fax his labs to his psychiatrist? We did his lithium level. He is coming in for recheck thisweek to see me documented in this encounterMemorial Health System [facility]05-04-2023 Miscellaneous Notes* Telephone Encounter - Nimco Taylor LPN - 07/01/2022 11:17 AM EDT Faxed as requested. * Telephone Encounter - Luz Elena Lyons RN - 06/30/2022 1:24 PM EDT MARTHA Marti in [facility] office@ [facility] calling for Chamberlain level lab result. Advised lab is still in process. She is requesting lab result be faxed to when available. Luz Elena Lyons RN documented in this encounterMemorial Health System [facility]05-02-2023 History of Present illness Narrative* Jose Arredondo RT(R) - 06/29/2022 5:00 PM EDT Radiology Service Progress Note PATIENT NAME: Levy Todd DATE OF SERVICE: June 29, 2022 TIME: 5:01 PM PATIENT IDENTITY VERIFICATION COMPLETED USING TWO (2) IDENTIFIERS: Name and Date of confirmedby patient verbally. FALL SCREENING: Has the patient [...] RT Santiago(R) June 29, 2022 5:01 PM [facility] History of Present illness Narrative* Turner Bundy MD - 06/29/2022 4:14 PM EDT Patient presents with: Abdominal Pain HPI: Patient presents today for office visit for abdominal pain that started 1 week ago. Pain came on suddenly. Refers to a constant sharp pain. Scale 9/10 pain always. Was taking some of moms bentylwith mild relief. He points to pain being [...] 6 before him. premature labor. delivered emergency becausecord wrapped around his neck. born 8 lbs. went home with mom. [...] past medical history, surgical history, family history andsocial history today. REVIEW OF SYSTEMS All other reviewed and negative other than HPI. VITALS: BP 90/62 Pulse 78 Temp 36.1 C (97 F) Ht 185.4 cm (6' 1) Wt (!) 144.2 kg (318 lb) SpO2 [...] ICD9: V58.83, ICD10: Z51.81 - LITHIUM BLD Turner Bundy MD documented in this encounterMem[facility] Membreno [facility] June 02, 2022 11:42pm Note Date/Time June 02, 2022 10:2 7pm [facility] Medical Records Department [address] [place] [address] Emergency Department Summary 06/02/22 MR#: [id number] Acct: [id number] Name: MAGNOLIALEVY Tulio Rep #:[id number] : 1995 26 From: Alex Huitron PCP: Dr. Turner Bundy MD Status:REG E R Location: ED HPI HPI - Psych History of Present Illness Chief Complaint: Suicidal Informant: patient Onset/Context/Timing Onset: Today Context: Sudden Onset Timing: Continuous Worsened by: - (Nothing) Relieved by: Nothing Associated Symptoms Associated Symptoms - Psych: Positive for Depressed, Suicidal Thoughts and Auditory Hallucinations Specific plan (suicidal thought): Cutting self Narrative Narrative: Patient presents with depression and suicidal ideations that became worse today. Patient states he was feeling voices that were telling him to hurt himself. Patient has had thoughts of cutting himself. Patient states he has thought of cutting his wrists, cutting his abdomen, and cutting his neck. Patient states nothing brought this on. Patient states nothing makes it any better. Patient states nothing makes it worse. Patient states he has been compliant with his medications. 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 Pneumonia Psychiatric pseudoseizure PTSD (post-traumatic stress disorder) Schizophrenia Seizures Home Medications omeprazole 40 mg capsule,delayed release 40 mg PO DAILY 12/24/15 [History Last Taken Unknown] lamotrigine 200 mg tablet 200 mg PO BID 11/19/20 [History Last Taken Unknown] trazodone 50 mg tablet 50 mg PO QHS 08/17/21 [History Last Taken Unknown] paliperidone 6 mg tablet,extended release 24 hr 6 mg PO QHS 06/02/22 [History Last Taken Unknown] paliperidone palm (3-month) 819 mg/2.63 mL intramuscular syringe (Invega Trinza)819 mg IM Q3M 06/02/22 [History Last Taken 05/31/22] Allergy/AdvReac Type Severity Reaction Status Date / Time bee venom protein (honey bee) Allergy Anaphylaxis Verified 06/02/22 16:56 carbamazepine [From Tegretol] Allergy Unknown Verified 06/02/22 16:56 divalproex sodium Allergy Other Verified 06/02/22 16:56 [From Depakote] methylphenidate Allergy Unknown Verified 06/02/22 16:56 [From Concerta] methylphenidate HCl Allergy Unknown Verified 06/02/22 16:56 [From Ritalin] phenobarbital Allergy Hives Verified 06/02/22 16:56 Family History Other Asthma Diabetes Hypertension Kidney disease Surgical History H/O hernia repair Hx of cholecystectomy Hx of tympanostomy tubes Social History household members: family housing: house Smoking Status: Never smoker alcohol intake: never ROS ROS ED Constitutional Constitutional ED: Denies chills or fever(s) Eyes Eyes: Denies blurry vision or change in vision ENT ENT ED: Denies rhinorrhea or sore throat Cardiovascular Cardiovascular: Denies chest pain or palpitations Respiratory/Chest Respiratory/Chest: Denies cough or dyspnea Gastrointestinal Gastrointestinal: Denies nausea or vomiting Genitourinary Genitourinary ED: Denies dysuria or hematuria Musculoskeletal Musculoskeletal: Denies back pain or neck pain Integumentary Denies abscess or rash Neurologic Neurologic: Denies headache(s) or weakness Psychiatric Psychiatric: Reports depression, suicidal ideation and suicidal thoughts Allergic/Immunologic Allergic/Immunologic ED: Denies mouth swelling or urticaria EXAM Physical Exam Const Vital Signs: 06/02/22 16:56 06/02/22 19:00 06/02/22 20:00 Temperature 96.1 F L Temperature Source Temporal Pulse Rate 90 Respiratory Rate 18 16 15 Blood Pressure 135/92 H Blood Pressure Mean 106 Pulse Ox 96 Oxygen Delivery Method Room Air 06/02/22 21:00 06/02/22 22:00 Temperature Temperature Source Pulse Rate 87 Respiratory Rate 16 15 Blood Pressure 129/77 H Blood Pressure Mean 94 Pulse Ox 99 Oxygen Delivery Method Room Air Positive well nourished, well developed and obese General Appearance ED: well developed and NAD Nutritional Appearance: obese HEENT normocephalic and atraumatic Neck supple and no JVD Resp normal respiratory effort and clear to auscultation bilaterally Cardio no murmurs Rate: regular rate Rhythm: regular rhythm GI non-tender and non-distended Auscultation: normoactive bowel sounds Palpation: soft Extremity normal to inspection General Extremety ED: Negative for edema or tenderness General Extremity: Negative for edema Neuro oriented x3, CN's II-XII intact bilaterally and no sensory deficits noted Sensorium / Orientation: alert Motor Exam: strength 5/5 throughout Psych mental status grossly normal Appearance: grossly normal Attitude: calm Activity / Motor Behavior: appropriate eye contact Speech: minimal and soft Mood & Affect: depressed and flat affect Thought Content: suicidality Skin Rashes: no rashes MDM MDM MDM Narrative Medical decision making narrative: Medical screening labs will be obtained. CBC will be obtained to assess for leukocytosis and anemia. Basic metabolic profile will be obtained to assess forelectrolyte abnormality and renal function. Serum alcohol level will be obtained to assess for alcohol intoxication. Urine tox screen will be obtained to assess for substance abuse. Urinalysis will be obtained to assess for urinary tract infection. COVID-19 rapid antigen will be obtained to assess for COVID infection. EKG will be obtained to assess for cardiac dysrhythmia and assess for the QT interval. Lab Data Lab results narrative: CBC was reviewed and showed a slight anemia with a hemoglobin of 12.4 [id number]. Basic metabolic profile was reviewed and was within normal limits. Urinalysis was reviewed. There is no evidence of urinary tract infection or hematuria. Serum alcohol level was reviewed and was normal at less than 3. Urine tox screen was reviewed and was negative. COVID-19 rapid antigen was reviewed and was negative. Labs: Laboratory Results - last 24 hr 06/02/22 06/02/22 06/02/22 18:15 18:15 19:35 WBC 8.9 RBC 4.89 Hgb 12.4 L Hct 38.3 L MCV 78.3 L MCH 25.4 L MCHC 32.4 RDW Std Deviation 41.1 RDW Coeff of Nano 14.6 Plt Count 294 MPV 8.8 Immature Gran % (Auto) 0.200 Neut % (Auto) 60.6 Lymph % (Auto) 31.5 Knott % (Auto) 7.6 Eos % (Auto) 0.0 Baso % (Auto) 0.1 Absolute Neuts (auto) 5.4 Absolute Lymphs (auto) 2.81 Nucleated RBC % 0 Sodium Potassium Chloride Carbon Dioxide Anion Gap BUN Creatinine Estim Creat Clear Calc Est GFR (MDRD) Af Amer Est GFR (MDRD) Non-Af BUN/Creatinine Ratio Glucose Calcium Urine Color Yellow Urine Clarity Clear Urine pH 6.5 Ur Specific [place] 1.020 Urine Protein 30 H Urine Glucose (UA) Normal Urine Ketones 5 H Urine Occult Blood Negative Urine Nitrite Negative Urine Bilirubin Negative Urine Urobilinogen 1 H Ur Leukocyte Esterase Negative Urine RBC 0 SEEN Urine WBC 0-5 SEEN Ur Squamous Epith Cells 0-5 SEEN Urine Bacteria RARE Urine Mucus 0 SEEN Urine Opiates Screen NEGATIVE Urine Methadone Screen NEGATIVE Ur Barbiturates Screen NEGATIVE Ur Phencyclidine Scrn NEGATIVE Ur Amphetamines Screen NEGATIVE MDMA (Ecstasy) Screen NEGATIVE U Benzodiazepines Scrn NEGATIVE Urine Cocaine Screen NEGATIVE U Cannabinoids Screen NEGATIVE Ur Drug Screen Comment Ethyl Alcohol 06/02/22 06/02/22 19:35 19:35 WBC RBC Hgb Hct MCV MCH MCHC RDW Std Deviation RDW Coeff of Nano Plt Count MPV Immature Gran % (Auto) Neut % (Auto) Lymph % (Auto) Knott % (Auto) Eos % (Auto) Baso % (Auto) Absolute Neuts (auto) Absolute Lymphs (auto) Nucleated RBC % Sodium 137 Potassium 3.8 Chloride 105 Carbon Dioxide 25.0 Anion Gap 7 BUN 9 Creatinine 0.77 Estim Creat Clear Calc 156.77 Est GFR (MDRD) Af Amer 154 Est GFR (MDRD) Non-Af 127 BUN/Creatinine Ratio 11.7 Glucose 89 Calcium 9.0 Urine Color Urine Clarity Urine pH Ur Specific [place] Urine Protein Urine Glucose (UA) Urine Ketones Urine Occult Blood Urine Nitrite Urine Bilirubin Urine Urobilinogen Ur Leukocyte Esterase Urine RBC Urine WBC Ur Squamous Epith Cells Urine Bacteria Urine Mucus Urine Opiates Screen Urine Methadone Screen Ur Barbiturates Screen Ur Phencyclidine Scrn Ur Amphetamines Screen MDMA (Ecstasy) Screen U Benzodiazepines Scrn Urine Cocaine Screen U Cannabinoids Screen Ur Drug Screen Comment Ethyl Alcohol < 3.0 EKG Initial EKG: Attestation: I personally reviewed and interpreted this EKG as follows: Interpretation: Sinus Rhythm (77) and No Acute Injury Pattern Comments: EKG was obtained. On my independent interpretation, it showed anormal sinus rhythm with a rate of 77. PA interval, QRS interval, and QTc intervals were all normal. [place] was normal. There are no acute ST or T wave changes. Prior EKG tracings: available for review Prior: Unchanged (03/26/2020) Management Discussion w/another healthcare provider: social group worker/Case management Treatment and Re-Evaluation Narrative: Patient is medically cleared for psychiatric evaluation. social group worker was in to evaluate the patient and felt the patient would benefit from inpatient treatment. She will attempt to find placement for the patient. Crisis counselor will also be involved in trying to find placement for the patient. Patient understands and is agreeable with the plan. All questions were answered. Care of the patient will be signed out to the oncoming physician pending psychiatric placement. Discharge Plan Triage Chief Complaint: Suicidal ED Provider: Alex Membreno Dx/Rx/DC Orders Clinical Impression: Depression with suicidal ideation, Auditory hallucination Prescriptions: No Action omeprazole 40 MG capsule 40 mg PO DAILY lamotrigine 200 mg tablet 200 mg PO BID trazodone 50 mg Tablet 50 mg PO QHS paliperidone 6 mg tablet extended release 24hr 6 mg PO QHS Invega Trinza 819 mg/2.63 mL syringe 819 mg IM Q3M Primary Care Provider: Turner Bundy Referrals: Turner Bundy MD [Primary Care Provider] - Disposition Disposition: Psychiatric Hospital or Unit What to do if you have Problems For any increased pain, shortness of breath, bleeding, nausea or vomiting, chestpain, or any unexpected problems, contact your Primary Care Provider. Call [facility] ([phone]) or report to the closest Emergency Room. Call 911 if necessary. 06/02/222341 <Electronically signed by Alex Membreno DO> Cosigner Signature (if applicable): CC: Dr. Turner Bundy MD ~ Signed [facility] Work Phone: [phone]) 620-540202-23-[address] Mondragon [facility] April 22, 2022 11:39pm Note Date/Time April 22, 2022 5:22pm [facility] Medical Records Department [address] [place] [id number] Emergency Department Summary 04/22/22 MR#: [id number] Acct: [id number] Name: TODDLEVY Tulio Rep #:[id number] : 1995 26 From: Marni Mondragon DO PCP: Dr. Turner Bundy MD Status:REG E R Location: ED HPI HPI - Psych History of Present Illness Chief Complaint: Suicidal Detail of Chief Complaint: Suicidal ideation Informant: patient and parent Narrative Narrative: NotPatient presents the emergency department with thoughts of self-harm. Patient states that he started hearing voices today telling him to kill himself and jump in front of a car door and cut himself. Patient has not acted on thesebut feels compelled to do so. Patient also has had some visual hallucinations and states that he sees people. Patient what may have triggered these thoughts today. He does have history of ADHD as well as asked Buerger's and bipolar and PTSD. Patient with history of schizophrenia. 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 Pneumonia Psychiatric pseudoseizure PTSD (post-traumatic stress disorder) Schizophrenia Seizures Home Medications omeprazole 40 mg capsule,delayed release 40 mg PO DAILY 12/24/15 [History Last Taken Unknown] lamotrigine 200 mg tablet 200 mg PO BID 11/19/20 [History Last Taken Unknown] mirtazapine 15 mg tablet 7.5 mg PO QHS 11/19/20 [History Last Taken Unknown] olanzapine 5 mg tablet 5 mg PO DAILY 08/17/21 [History Last Taken Unknown] trazodone 50 mg tablet 50 mg PO QHS 08/17/21 [History Last Taken Unknown] dicyclomine 20 mg tablet 20 mg PO TID PRN abdominal cramping #14 tabs 08/18/21 [Rx Last Taken Unknown] hydroxyzine pamoate 25 mg capsule (Vistaril) 25 mg PO TID PRN Anxiety 04/22/22 [History Last Taken Unknown] Allergy/AdvReac Type Severity Reaction Status Date / Time carbamazepine [From Tegretol] Allergy Unknown Verified 04/22/22 16:55 divalproex sodium Allergy Other Verified 04/22/22 16:55 [From Depakote] methylphenidate Allergy Unknown Verified 04/22/22 16:55 [From Concerta] methylphenidate HCl Allergy Unknown Verified 04/22/22 16:55 [From Ritalin] phenobarbital Allergy Hives Verified 04/22/22 16:55 Family History Other Asthma Diabetes Hypertension Kidney disease Surgical History H/O hernia repair Hx of cholecystectomy Hx of tympanostomy tubes Social History household members: family housing: house Smoking Status: Never smoker alcohol intake: never ROS ROS ED Review of Systems ROS Unobtainable: other Constitutional Constitutional ED: Reports lethargy; Denies chills, fever(s), sweats or weight loss Eyes Eyes: Denies blurry vision, change in vision or diplopia ENT ENT ED: Denies rhinorrhea or sore throat Cardiovascular Cardiovascular: Reports chest pain and racing heartbeat; Denies orthopnea Respiratory/Chest Respiratory/Chest: Reports dyspnea and dyspnea on exertion; Denies cough, orthopnea or sputum Gastrointestinal Gastrointestinal: Denies abdominal pain, diarrhea, nausea or vomiting Genitourinary Genitourinary ED: Denies dysuria, hematuria or urinary frequency Musculoskeletal Musculoskeletal: Denies arthralgias, back pain, myalgias or neck pain Integumentary Denies abscess, Abrasions or rash Neurologic Neurologic: Denies headache(s) or weakness Psychiatric Psychiatric: Reports depression, suicidal ideation and suicidal thoughts; Deniesanxiety Endocrine Endocrinology: Denies polydipsia, polyphagia or polyuria Hematologic/Lymphatic Hematologic/Lymphatic: Denies easy bleeding, easy bruising or lymphadenopathy Allergic/Immunologic Allergic/Immunologic ED: Denies mouth swelling, tongue swelling or urticaria EXAM Physical Exam Const Vital Signs: 04/22/22 16:53 Temperature 97.2 F L Temperature Source Temporal Pulse Rate 96 Respiratory Rate 16 Blood Pressure 150/80 H Blood Pressure Mean 103 Pulse Ox 97 Oxygen Delivery Method Room Air Positive well nourished and well developed General Appearance ED: well developed and NAD HEENT Reports TM's clear and moist mucous membranes normocephalic and atraumatic; Negative for trauma or tenderness Tympanic Membrane ED: Yes TM's clear Eyes PERRL and EOMs intact bilaterally General Eye ED: Negative for pale conjunctiva or scleral icterus Neck no lymphadenopathy, supple and no JVD General: Negative for tenderness Chest Wall inspection of chest normal and palpation of chest normal Chest: Negative for tenderness Resp normal respiratory effort and clear to auscultation bilaterally Effort and Inspection: Negative for respiratory distress or pain with movement Auscultation: Negative for rhonchi, wheezes or diminished lung sounds Cardio regular rate, regular rhythm, S1 normal heart sound, S2 normal heart sound and no murmurs Peripheral Pulses: pulses 2+ throughout GI normal to inspection, nondistended, normoactive bowel sounds, soft to palpation,non-tender, non-distended and no masses Back/Spine no CVA tenderness and no thoracic nor lumbar tenderness Extremity normal to inspection General Extremety ED: Negative for edema General Extremity: Negative for edema Neuro oriented x3, CN's II-XII intact bilaterally, no sensory deficits noted and gait normal Sensorium / Orientation: awake, alert, oriented to person, oriented to place andoriented to time Motor Exam: strength 5/5 throughout and strength abnormal Psych mental status grossly normal Skin no rashes or lesions noted and no wounds MDM MDM MDM Narrative Medical decision making narrative: Patient presents with suicidal ideation. Patient also presents with hallucinations. Lab work-up unremarkable and toxicology screen was negative. Case discussed with licensed master social worker who evaluated patient. Was felt patient wouldbenefit from an hospital stabilization for his psychiatric issues. social group worker will attempt to find placement to psychiatric facility for patient. Lab Data Attestation: I reviewed the patient's lab results. Labs: Laboratory Results - last 24 hr 04/22/22 04/22/22 04/22/22 17:25 17:35 17:35 WBC 7.3 RBC 5.22 Hgb 13.2 Hct 41.4 MCV 79.3 L MCH 25.3 L MCHC 31.9 L RDW Std Deviation 41.1 RDW Coeff of Nano 14.4 Plt Count 353 MPV 8.8 Immature Gran % (Auto) 0.300 Neut % (Auto) 64.3 Lymph % (Auto) 26.2 Knott % (Auto) 9.1 Eos % (Auto) 0.0 Baso % (Auto) 0.1 Absolute Neuts (auto) 4.7 Absolute Lymphs (auto) 1.90 Nucleated RBC % 0 Sodium 137 Potassium 3.8 Chloride 106 Carbon Dioxide 24.0 Anion Gap 7 BUN 9 Creatinine 0.83 Estim Creat Clear Calc 145.44 Est GFR (MDRD) Af Amer 141 Est GFR (MDRD) Non-Af 116 BUN/Creatinine Ratio 10.8 Glucose 92 Calcium 9.5 Urine Opiates Screen NEGATIVE Urine Methadone Screen NEGATIVE Ur Barbiturates Screen NEGATIVE Ur Phencyclidine Scrn NEGATIVE Ur Amphetamines Screen NEGATIVE MDMA (Ecstasy) Screen NEGATIVE U Benzodiazepines Scrn NEGATIVE Urine Cocaine Screen NEGATIVE U Cannabinoids Screen NEGATIVE Ur Drug Screen Comment Discharge Plan Triage Chief Complaint: Suicidal ED Provider: Marni Mondragon Dx/Rx/DC Orders Clinical Impression: Suicidal ideation, Depression, Hx of schizophrenia Prescriptions: No Action omeprazole 40 MG capsule 40 mg PO DAILY lamotrigine 200 mg tablet 200 mg PO BID mirtazapine 15 mg tablet 7.5 mg PO QHS trazodone 50 mg Tablet 50 mg PO QHS olanzapine 5 mg Tablet 5 mg PO DAILY dicyclomine 20 mg tablet 20 mg PO TID PRN (Reason: abdominal cramping) Qty: 14 0RF hydroxyzine pamoate [Vistaril] 25 mg Capsule 25 mg PO TID PRN (Reason: Anxiety) Primary Care Provider: Turner Bundy Referrals: Turner Bundy MD [Primary Care Provider] - Disposition Disposition: Psychiatric Hospital or Unit What to do if you have Problems For any increased pain, shortness of breath, bleeding, nausea or vomiting, chestpain, or any unexpected problems, contact your Primary Care Provider. Call [facility] ([phone]) or report to the closest Emergency Room. Call 911 if necessary. 04/22/22 0285 <Electronically signed by Marni Mondragon DO> Cosigner Signature (if applicable): CC: Dr. Turner Bundy MD ~ Signed [facility] Work Phone: 1(707) 559-442801-26-2023 Miscellaneous Notes* Telephone Encounter - Keesha Brown LPN - 03/25/2022 6:45 PM EST Left message for patient with negative results and recommendations.Keesha Brown LPN * Telephone Encounter - Keesha Brown LPN - 03/25/2022 6:45 PM EST ----- Message from Michelle Wang APRN.NON DESTRUCTIVE TESTING TECHNICIAN sent at 03/25/2022 2:43 PM EST ----- Please advise patient the urine culture was negative (no sign of infection). He should follow up with urology as advised at the visit. documented in this encounter[facility] History of Present illness Narrative* Jatin Herrera MD - 03/24/2022 11:38 AM EST Patient presents with: Urinary Frequency: burning with [...] 6 before him. premature labor. delivered emergency becausecord wrapped around his neck. born 8 lbs. went home with mom. [...] by mouth three times daily as needed. (Patientnot taking: Reported on 02/23/2021 ) Inhaler,Assist Devices,Access [...] fluids PRN- IBUPROFEN 600 MG TABLET Jatin Herrera MD documented in this encounterMem[facility]12-[facility] Instructions* Patient Instructions* Francy Mittal APRN.NON DESTRUCTIVE TESTING TECHNICIAN - 02/01/2022 4:31 PM EST FACT SHEET FOR PATIENTS, PARENTS, AND CAREGIVERS EMERGENCY USE AUTHORIZATION (EUA) OF PAXLOVID FOR CORONAVIRUS DISEASE 2019 (COVID-19) You are being given this Fact Sheet because your healthcare provider believes it is necessary to provide you with PAXLOVID for the treatment of mdbr-bl-rdwwcgvi coronavirus disease (COVID-19) caused by the SARS-CoV-2 virus. This Fact Sheet contains information to help you understand the risks and benefits of taking the PAXLOVID you have received or may receive. The U.S. Food and Drug Administration (FDA) has issued an Emergency Use Authorization (EUA) to makePAXLOVID available during the COVID-19 pandemic (for more details about an EUA please see What is an Emergency Use Authorization? at the end of this document). PAXLOVID is not an FDA-approved medicine in the [place]. Read this Fact Sheet for information about PAXLOVID. Talk to your healthcareprovider about your options or if you have any questions. It is your choice to take PAXLOVID. What is COVID-19? COVID-19 is caused by a virus called a coronavirus. You can get COVID-19 through close contact withanother person who has the virus. COVID-19 illnesses have ranged from very hbhz-xp-ntrfqs, including illness resulting in . While information so far suggests that most COVID-19 illness is mild, serious illness can happen and maycause some of your other medical conditions to become worse. Older people and people of all ages with severe, long lasting (chronic) medical conditions like heart disease, lung disease, and diabetes,for example seem to be at higher risk of being hospitalized for COVID-19. What is PAXLOVID? PAXLOVID is an investigational medicine used to treat gixe-po-tsfroprd COVID-19 in adults and children [12 years [...] of using PAXLOVID to treat people with kfww-mg-utonfqsc COVID-19. The FDA has authorized the emergency use of PAXLOVID for the treatment of bsdq-we-frmweppo COVID-19in adults and children [12 years of age [...] the medicines you take, including prescription and nqlg-npa-izhdnfw medicines, vitamins, and herbal supplements. Some medicines [...] you have any questions about contraceptive methods thatmight be right for you. How do I [...] missed dose and take the next dose atyour regular time. Do not take 2 doses [...] oral midazolam Apalutamide Carbamazepine, phenobarbital, phenytoin Rifampin Zeeshan s Wort (hypericum perforatum) Taking PAXLOVID with [...] (remdesivir) is FDA-approved for the treatment of iysr-rp-njzbaafo COVID-19 in certain adults and children. Talk with your doctor to see if Veklury is appropriate for you. Like PAXLOVID, FDA may also allow for the emergency use of other medicines to treat people with COVID-19. Go to https://www.fda.gov/ktwctzjlw-edkuokpwmhsb-xsspmvvpcvz/ecu-ztnpu-xjtzbagfbj-and- policy-framework/obpqxpvjt-xhx-eheweeyxmdyvn for information on the emergency use of other medicines that are authorized by FDA to treat people with COVID-19. Your healthcare provider may talk with you aboutclinical trials for which you may be eligible. It is your choice to be treated or not to be treated with PAXLOVID. Should you decide not to receive it or for your child not to receive it, it will not change your standard medical care. What if I am or ? There is histologist technologist treating women or mothers with PAXLOVID. For a motherand unborn baby, the benefit of taking PAXLOVID may be greater than the risk from the treatment. Ifyou are , discuss your options and specific situation with your healthcare provider. It is recommended that you use effective barrier contraception or do not have sexual activity whiletaking PAXLOVID. If you are , discuss your options and specific situation with your healthcare provider. How do I report side effects with PAXLOVID? Contact your healthcare provider if you have any side effects that bother you or do not go away. Report side effects to [employer] at www.fda.gov/medwatch or call 5-665-FFK8253 or you can reportside effects to [employer] at the contact information provided below. Website Fax number Telephone number [employer] How should I store PAXLOVID? Store PAXLOVID [...] (EUA). The EUA is supported by a Food Management Aide of Health and Human Service (HHS) declaration that circumstances exist to justify the emergency use of drugs and biological productsduring the COVID-19 pandemic. PAXLOVID for the treatment of fwma-nd-jvzgsraq COVID-19 in adults and children [12 years of age andolder weighing at least 88 pounds (40 kg)] [...] telephone number provided below. Website Telephone number [employer] (9-594-K64-PACK) You can also go to www.[employer] or call for more information. [employer] Distributed by [facility] [place] [address] [id number] Revised: 15 May 2021 [facility] History of Present illness Narrative* Francy Mittal APRN.CNP - 02/01/2022 4:16 PM EST Chief Complaint No chief complaint on file. [...] agrees to the visit: Yes Patient Location: [facility] Levy Todd is a 26 year old male who is contacted today for a virtual visit This is an establishedpatient of Dr. Turner Bundy MD. Mother is present in the room. [...] 6 before him. premature labor. delivered emergency becausecord wrapped around his neck. born 8 lbs. went home with mom. [...] by mouth three times daily as needed. (Patientnot taking: Reported on 02/23/2021 ) ondansetron orally [...] improvement. Nirmatrelvir/Ritonavir (Paxlovid) Eligibility and Patient Discussion [facility] Formulary Restriction Criteria: Adult outpatients 18 [...] reported. The discussion included alternatives to receiving nirmatrelvir/rit onavir, including clinical trials, and potential the risks and benefits of those alternatives. The patient was provided electronically with the Fact Sheet for Patients, Parents and Caregivers. The patient was also instructed that in addition to the treatment with nirmatrelvir/ritonavir, he/she should continue to self-isolate and use infection control measures (e.g., wear mask, isolate, social distance, avoid sharing personal items, clean and disinfect high touch surfaces, and frequent h andwashing) according to CDC guidelines. The patient stated understanding and gave verbal consent to proceeding with nirmatrelvir/ritonavir treatment. Francy Mittal APRN.CASTRO February 01, 2022 4:34 PM documented in [facility] encounter[facility] Miscellaneous Notes* Telephone Encounter - Carey Cervantes RN - 01/08/2022 3:26 PM EST Last Office Visit: 02/23/2021 Future Office Visit: None Requested Prescriptions Pending Prescriptions Disp Refills omeprazole (PRILOSEC) 40 mg capsule 28 capsule 5 Sig: Take 1 capsule by mouth once daily. Date of Last Labs: 12/23/2020 documented in [facility] History of Present illness Narrative* Jatin Herrera MD - 05/25/2021 10:53 AM EDT Patient presents with: Sinus Problem: sinus pressure, [...] 6 before him. premature labor. delivered emergency becausecord wrapped around his neck. born 8 lbs. went home with mom. [...] by mouth three times daily as needed. (Patientnot taking: Reported on 02/23/2021 ) Inhaler,Assist Devices,Access [...] Successful cerumen removal by water lavage. Jatin Herrera MD documented in this encounterMem[facility]-29-2021 NoteHNO ID: [id number] Author: Jennifer Fletcher APRN.LICENSED OCCUPATIONAL THERAPY ASSISTANT Service: Anesthesiology Author Type: Nurse Battery Charger Type: Anesthesia Procedure Notes Filed: 01/26/2021 2:58 PM Note Text: ANESTHESIOLOGY PROCEDURE NOTE Airway General Information Procedure Start Time/Medication Administration: 01/26/2021 2:39 PM Procedure End Time: 01/26/2021 2:43 PM Patient location during procedure: OR Timeout Performed Pre-procedure: timeout performed Consent Obtained: Yes Patient identity confirmed: arm band, care prepared foods service team member and patient Staffing LICENSED OCCUPATIONAL THERAPY ASSISTANT: Jennifer Fletcher APRN.CRNA Other anesthesia staff/rotator: Jennifer Fletcher APRN.LICENSED OCCUPATIONAL THERAPY ASSISTANT Performed by: QUIQUE Indications and Patient Condition [...] esophageal intubation: no Airway not difficult SIGNATURE: Jennifer Fletcher APRN.CRNA PATIENT NAME: Levy Todd DATE: January 26, 2021 TIME: 2:57 PM CSN: [id number] History of Present illness Narrative* Gia Gonzales RT(R) - 07/08/2020 12:00 PM EDT Radiology Service Progress Note PATIENT NAME: Levy Todd DATE OF SERVICE: July 08, 2020 TIME: 12:19 PM PATIENT IDENTITY VERIFICATION COMPLETED USING TWO (2) IDENTIFIERS: Name and Date of confirmedby patient verbally. FALL SCREENING: Has the patient had 2 falls in the last year or 1 fall with injury or currently using an Ambulatory Assistive Device (Walker, Cane, Wheelchair, Crutches, etc.)? No PATIENT GENDER DATA: Male PATIENT RELEVANT IMPLANT DATA REVIEWED: Not Applicable RADIOLOGY DEPARTMENT: General X-ray: Exam(s) Completed: Spine X-Ray(s): Cervical AP / LAT / OBL PERIPHERAL IV DATA: Not applicable SIGNED BY: RT Jarrod(R) July 08, 2020 12:19 PM documented in this encounterMem[facility] History of Past illness Narrative* Problem Noted Date Resolved Date 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 10/02/2015 Abdominal pain, epigastric 10/13/200610/01 Abdominal pain, generalized 10/13/200605/2015 Abnormality of gait 06/22/2005 10/02/2015 Exostosis of unspecified site 05/31/2005 Onychia and paronychia of toe 04/15/2005 Ingrowing nail 01/08/2005 10/02/2015 Pain in limb 01/08/2005 10/02/2015 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 documented as of this encounter (statuses as of 05/25/2021) [facility] History of Past illness Narrative* Problem Noted Date Resolved Date 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 10/02/2015 Abdominal pain, epigastric 10/13/200610/01 Abdominal pain, generalized 10/13/200605/2015 Abnormality of gait 06/22/2005 10/02/2015 Exostosis of unspecified site 05/31/2005 Onychia and paronychia of toe 04/15/2005 Ingrowing nail 01/08/2005 10/02/2015 Pain in limb 01/08/2005 10/02/2015 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 documented as of this encounter (statuses as of 01/08/2022) [facility] History of Past illness Narrative* Problem [...] of this encounter (statuses as of 02/02/2022) [facility] of [facility] illness Narrative* Problem Noted Date Resolved Date 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 10/02/2015 Abdominal pain, epigastric 10/13/200610/01 Abdominal pain, generalized 10/13/200605/2015 Abnormality of gait 06/22/2005 10/02/2015 Exostosis of unspecified site 05/31/2005 Onychia and paronychia of toe 04/15/2005 Ingrowing nail 01/08/2005 10/02/2015 Pain in limb 01/08/2005 10/02/2015 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 documented as of this encounter (statuses as of 03/24/2022) [facility] of Past illness Narrative* Problem Noted Date Resolved Date 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 10/02/2015 Abdominal pain, epigastric 10/13/200610/01 Abdominal pain, generalized 10/13/200605/2015 Abnormality of gait 06/22/2005 10/02/2015 Exostosis of unspecified site 05/31/2005 Onychia and paronychia of toe 04/15/2005 Ingrowing nail 01/08/2005 10/02/2015 Pain in limb 01/08/2005 10/02/2015 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 documented as of this encounter (statuses as of 03/26/2022) [facility] of Past illness Narrative* Problem Noted Date Resolved Date 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 10/02/2015 Abdominal pain, epigastric 10/13/200610/01 Abdominal pain, generalized 10/13/200605/2015 Abnormality of gait 06/22/2005 10/02/2015 Exostosis of unspecified site 05/31/2005 Onychia and paronychia of toe 04/15/2005 Ingrowing nail 01/08/2005 10/02/2015 Pain in limb 01/08/2005 10/02/2015 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 documented as of this encounter (statuses as of 06/30/2022) [facility] of [facility] illness Narrative* Problem Noted Date Resolved Date 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 10/02/2015 Abdominal pain, epigastric 10/13/200610/01 Abdominal pain, generalized 10/13/200605/2015 Abnormality of gait 06/22/2005 10/02/2015 Exostosis of unspecified site 05/31/2005 Onychia and paronychia of toe 04/15/2005 Ingrowing nail 01/08/2005 10/02/2015 Pain in limb 01/08/2005 10/02/2015 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 documented as of this encounter (statuses as of 07/01/2022) [facility] Narrative* Problem Noted Date Resolved Date 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 10/02/2015 Abdominal pain, epigastric 10/13/200610/01 Abdominal pain, generalized 10/13/200605/2015 Abnormality of gait 06/22/2005 10/02/2015 Exostosis of unspecified site 05/31/2005 Onychia and paronychia of toe 04/15/2005 Ingrowing nail 01/08/2005 10/02/2015 Pain in limb 01/08/2005 10/02/2015 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 documented as of this encounter (statuses as of 07/02/2022) [facility] Narrative* Problem Noted Date Resolved Date 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 10/02/2015 Abdominal pain, epigastric 10/13/200610/01 Abdominal pain, generalized 10/13/200605/2015 Abnormality of gait 06/22/2005 10/02/2015 Exostosis of unspecified site 05/31/2005 Onychia and paronychia of toe 04/15/2005 Ingrowing nail 01/08/2005 10/02/2015 Pain in limb 01/08/2005 10/02/2015 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 documented as of this encounter (statuses as of 07/03/2022) [facility] Narrative* Problem Noted Date Resolved Date 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 10/02/2015 Abdominal pain, epigastric 10/13/200610/01 Abdominal pain, generalized 10/13/200605/2015 Abnormality of gait 06/22/2005 10/02/2015 Exostosis of unspecified site 05/31/2005 Onychia and paronychia of toe 04/15/2005 Ingrowing nail 01/08/2005 10/02/2015 Pain in limb 01/08/2005 10/02/2015 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 documented as of this encounter (statuses as of 07/27/2022) [facility] Narrative* Problem Noted Date Resolved Date 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 10/02/2015 Abdominal pain, epigastric 10/13/200610/01 Abdominal pain, generalized 10/13/200605/2015 Abnormality of gait 06/22/2005 10/02/2015 Exostosis of unspecified site 05/31/2005 Onychia and paronychia of toe 04/15/2005 Ingrowing nail 01/08/2005 10/02/2015 Pain in limb 01/08/2005 10/02/2015 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 documented as of this encounter (statuses as of 08/18/2022) [facility] Narrative* Problem Noted Date Resolved Date 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 10/02/2015 Abdominal pain, epigastric 10/13/200610/01 Abdominal pain, generalized 10/13/2006 08/0 05/2015 Abnormality of gait 06/22/2005 10/02/2015 Exostosis of unspecified site 05/31/2005 Onychia and paronychia of toe 04/15/2005 Ingrowing nail 01/08/2005 10/02/2015 Pain in limb 01/08/2005 10/02/2015 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 documented as of this encounter (statuses as of 08/19/2022) [facility] Narrative* Problem Noted Date Resolved Date 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 10/02/2015 Abdominal pain, epigastric 10/13/200610/01 Abdominal pain, generalized 10/13/200605/2015 Abnormality of gait 06/22/2005 10/02/2015 Exostosis of unspecified site 05/31/2005 Onychia and paronychia of toe 04/15/2005 Ingrowing nail 01/08/2005 10/02/2015 Pain in limb 01/08/2005 10/02/2015 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 documented as of this encounter (statuses as of 09/03/2022) [facility] Narrative* Problem [...] of this encounter (statuses as of 09/04/2022) [facility] Narrative* Problem [...] of this encounter (statuses as of 09/14/2022) [facility] Narrative* Problem [...] of this encounter (statuses as of 10/14/2022) [facility] Narrative* Problem [...] of this encounter (statuses as of 10/21/2022) [facility] Narrative* Problem [...] of this encounter (statuses as of 11/04/2022) [facility] Narrative* Problem [...] of this encounter (statuses as of 12/04/2022) [facility] Narrative* Problem [...] of this encounter (statuses as of 12/07/2022) [facility] Narrative* Problem [...] of this encounter (statuses as of 12/09/2022) [facility] Narrative* Problem [...] of this encounter (statuses as of 12/09/2022) [facility] Narrative* Problem [...] of this encounter (statuses as of 12/15/2022) [facility] Narrative* Problem [...] of this encounter (statuses as of 12/17/2022) [facility] Narrative* Problem [...] of this encounter (statuses as of 12/28/2022) [facility] Narrative* Problem [...] of this encounter (statuses as of 01/02/2023) [facility] Narrative* Problem [...] of this encounter (statuses as of 01/02/2023) [facility] N[facility]ative* Problem [...] of this encounter (statuses as of 01/04/2023) [facility] Narrative* Problem [...] of this encounter (statuses as of 04/06/2023) [facility]* Problem [...] of this encounter (statuses as of 04/07/2023) [facility]* Problem [...] of this encounter (statuses as of 04/12/2023) [facility]* Problem [...] as of this encounter (statuses as of 05/02/2023) [facility]* Problem [...] as of this encounter (statuses as of 05/03/2023) [facility]* Problem [...] as of this encounter (statuses as of 05/31/2023) [facility]* Problem [...] as of this encounter (statuses as of 06/01/2023) [facility] Narrative* Problem [...] as of this encounter (statuses as of 06/01/2023) [facility] note* Diagnosis URI, acute- Primary Acute upper respiratory infections of unspecified site Bilateral impacted cerumen Impacted cerumen documented in this encounter [facility] noteNo assessment information availableWWhite [facility] Work [facility]* Diagnosis COVID-19- Primary documented in this encounter [facility] note* Diagnosis Dysuria- Primary Urinary frequency Microscopic hematuria History of kidney stones Personal history of urinary calculi documented in this encounter [facility] note* Diagnosis Epigastric pain- Primary Abdominal pain, epigastric Left upper quadrant abdominal pain Medication monitoring encounter Encounter for therapeutic drug monitoring documented in this encounter [facility] note* Diagnosis Generalized abdominal pain- Primary Abdominal pain, generalized documented in this encounter [facility] note* Diagnosis Abdominal pain, unspecified abdominal location- Primary documented in this encounter [facility] note* Diagnosis Epigastric pain Abdominal pain, epigastric Left upper quadrant abdominal pain documented in this encounter [facility] note* Diagnosis Sore throat- Primary Acute pharyngitis documented in this encounter [facility] note* Diagnosis Acute otitis media, left- Primary Unspecified otitis media [facility] Diagnosis Bronchitis- Primary Bronchitis, not specified as acute or chronic Mild intermittent asthma without complication Unspecified asthma documented in this encounter [facility] note* Diagnosis Bronchitis- Primary Bronchitis, not specified as acute or chronic documented in this encounter [facility] note* Diagnosis Pain of toe of right foot- Primary Pain in limb documented in this encounter [facility] note* Diagnosis Right ear pain- Primary Otalgia, unspecified Impacted cerumen of right ear Impacted cerumen documented in this encounter [facility] note* Diagnosis Pain of toe of right foot Pain in limb documented in this encounter [facility] note* Diagnosis Acute non-recurrent sinusitis, unspecified location- Primary Bilateral impacted cerumen Impacted cerumen [facility]* Diagnosis Pain of toe of right foot- Primary Pain in limb Repetitive stress injury Unspecified site of sprain and strain documented in this encounter [facility] note* Diagnosis Epigastric pain Abdominal pain, epigastric Left upper quadrant abdominal pain [facility] Diagnosis Pain of toe of right foot Pain in limb [facility] Diagnosis Pain of toe of right foot Pain in limb Repetitive stress injury Unspecified site of sprain and strain [facility] Diagnosis Pain of toe of right foot- Primary Pain in limb Right foot pain Pain in limb documented in this encounter [facility] note* Diagnosis Bronchitis- Primary Bronchitis, not specified as acute or chronic [facility]* Diagnosis Skin irritation- Primary Unspecified disorder of skin and subcutaneous tissue [facility]* Diagnosis Dermatitis- Primary Contact dermatitis and other eczema, due to unspecified cause documented in this encounter [facility] note* Diagnosis Schizoaffective disorder, bipolar type (HCC)- Primary Schizoaffective disorder, unspecified condition Abdominal pain, unspecified abdominal location Encounter for immunization Need for other specified prophylactic vaccination against single bacterial disease documented in this encounter [facility] note* Diagnosis Pharyngitis, unspecified etiology- Primary Acute bronchitis, unspecified organism documented in this encounter [facility] note* Diagnosis Acute maxillary sinusitis, recurrence not specified- Primary documented in this encounter [facility] note* Diagnosis Acute non-recurrent maxillary sinusitis- Primary Encounter for screening for human immunodeficiency virus (HIV) Special screening examination for other specified viral diseases Fatigue associated with AIDS ([facility]) Body mass index (BMI) 40.0-44.9, adult ([facility]) documented in this encounter [facility] note* Diagnosis Gastroesophageal reflux disease, unspecified whether esophagitis present [facility] Diagnosis Skin irritation Unspecified disorder of skin and subcutaneous tissue [facility]* Diagnosis Acute cough- Primary URI, acute Acute upper respiratory infections of unspecified site Acute cough documented in this encounter [facility] note* Diagnosis Gastroesophageal reflux disease without esophagitis- Primary Esophageal reflux Left upper quadrant abdominal pain Attention deficit hyperactivity disorder (ADHD), other type Psychogenic nonepileptic seizure Asperger's syndrome Other specified pervasive developmental disorders, current or active state Mild intermittent asthma without complication Unspecified asthma Schizoaffective disorder, bipolar type ([facility]) Schizoaffective disorder, unspecified condition Lactose intolerance Intestinal disaccharidase deficiencies and disaccharide malabsorption documented in this encounter [facility] note* Diagnosis Sore throat- Primary Acute pharyngitis Diarrhea, unspecified type documented in this encounter [facility] note* Diagnosis Acute cough documented in this encounter [facility] note* Diagnosis Chronic cough- Primary Cough LYNN (dyspnea on exertion) Other dyspnea and respiratory abnormality Mild intermittent asthma without complication Unspecified asthma documented in this encounter [facility] note* Diagnosis Bronchitis Bronchitis, not specified as acute or chronic documented in this encounter [facility] note* Diagnosis Chronic cough Cough LYNN (dyspnea on exertion) Other dyspnea and respiratory abnormality documented in this encounter [facility] note* Diagnosis Chronic cough Cough LYNN (dyspnea on exertion) Other dyspnea and respiratory abnormality documented in this encounter [facility] note* Diagnosis Chronic cough- Primary Cough documented in this encounter [facility] note* Diagnosis Bronchitis Bronchitis, not specified as acute or chronic Mild intermittent asthma without complication Unspecified asthma documented in this encounter [facility] note* Diagnosis Epigastric pain Abdominal pain, epigastric Left upper quadrant abdominal pain documented in this encounter [facility] note* Diagnosis Abdominal pain, unspecified abdominal location documented in this encounter [facility] note* Diagnosis Left upper quadrant abdominal pain Lactose intolerance Intestinal disaccharidase deficiencies and disaccharide malabsorption documented in this encounter [facility] note* Diagnosis Neck pain Cervicalgia documented in this encounter [facility] note* Diagnosis Palpitations- Primary Anemia, unspecified type Hypokalemia Hypopotassemia Hyperglycemia Other abnormal glucose Need for vaccination Need for prophylactic vaccination and inoculation against unspecified single disease documented in this encounter [facility] note* Diagnosis Pharyngitis, unspecified etiology- Primary Acute cough URI, acute Acute upper respiratory infections of unspecified site Acute cough documented in this encounter [facility] note* Diagnosis Acute cough documented in this encounter [facility] note* Diagnosis Gastroesophageal reflux disease, unspecified whether esophagitis present documented in this encounter [facility] note* Diagnosis Gastroesophageal reflux disease, unspecified whether esophagitis present documented in this encounter [facility] note* Diagnosis Schizoaffective disorder, unspecified type (HCC)- Primary Attention deficit hyperactivity disorder (ADHD), unspecified ADHD type Asperger's syndrome Other specified pervasive developmental disorders, current or active state Mild intermittent asthma without complication Unspecified asthma Acute non-recurrent frontal sinusitis documented in this encounter [facility] note* Diagnosis Left upper quadrant abdominal pain Lactose intolerance Intestinal disaccharidase deficiencies and disaccharide malabsorption documented in this encounter [facility] note* Diagnosis 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 Mild intermittent asthma without complication Unspecified asthma Attention deficit hyperactivity disorder (ADHD), unspecified ADHD type Psychogenic nonepileptic seizure Schizoaffective disorder, bipolar type (HCC) Schizoaffective disorder, unspecified condition Asperger's syndrome Other specified pervasive developmental disorders, current or active state Obesity, Class III, BMI >= 40 Morbid obesity Acute midline thoracic back pain documented in this encounter [facility] note* Diagnosis Seasonal allergies- Primary Allergic rhinitis, cause unspecified Nasal congestion Other diseases of nasal cavity and sinuses Sore throat Acute pharyngitis Acute upper respiratory infection, unspecified Schizoaffective disorder, bipolar type (HCC) Schizoaffective disorder, unspecified condition documented in this encounter [facility] note* Diagnosis Onychomycosis- Primary Dermatophytosis of nail Pain in toe of right foot Pain in limb documented in this encounter [facility] note* Diagnosis Sore throat- Primary [facility] Additional Instructions X-rays look good. Ice to the foot. Motrin for pain and swelling. Tylenol for pain. This should progressively get better. If not follow-up.[facility] Work Phone: Reason for referral (narrative)* Diagnostic Procedure Only (Routine) - Closed Specialty Diagnoses / Procedures Referred By Ellyn connors Referred To Contact XR IMAGING Diagnoses Epigastric pain Left upper quadrant abdominal pain Procedures XR ABDOMEN 1V SUPINE RADIOLOGIC EXAM ABDOMEN 1 VIEW Turner Bundy MD [address] [place] [address] Xr Imaging Referral ID Status Reason Start Date Expiration Date V isits Requested Visits Authorized [id number] Closed Auto-Generate d Referral 06/29/2022 07/29/2023 1 1 [facility] for referral (narrative)* Diagnostic Procedure Only (Urgent) - Closed Specialty Diagnoses / Procedures Referred By Contac t Referred To Contact XR IMAGING Diagnoses Abdominal pain, unspecified abdominal location Procedures XR ABDOMEN 1V SUPINE RADIOLOGIC EXAM ABDOMEN 1 VIEW Turner Bundy MD [address] [place] [address] Xr Imaging Referral ID Status Reason Start Date Expiration Date V isits Requested Visits Authorized [id number] Closed Auto-Generate d Referral 07/01/2022 07/31/2023 1 1 [facility] for referral (narrative)* Diagnostic Procedure Only (Routine) - Closed Specialty Diagnoses / Procedures Referred By Contac t Referred To Contact XR IMAGING Diagnoses Pain of toe of right foot Procedures XR FOOT GENERAL 3V AP/LAT/OBL RIGHT RADEX FOOT COMPLETE MINIMUM 3 VIEWS Fern Solares [address] [facility] [place] [address] [place] [address] Referral ID Status Reason Start Date Expiration Date V isits Requested Visits Authorized [id number] Closed Auto-Generate d Referral 11/03/2022 12/03/2023 1 1 * Diagnostic Procedure Only (Routine) - Closed Specialty Diagnoses / Procedures Referred By Contac t Referred To Contact XR IMAGING Diagnoses Pain of toe of right foot Procedures XR TOE AP/LAT/OBL RIGHT RADEX TOE MINIMUM 2 VIEWS Fern Solares [address] [facility] [place] [address] [place] [address] Referral ID Status Reason Start Date Expiration Date V isits Requested Visits Authorized [id number] Closed Auto-Generate d Referral 11/03/2022 12/03/2023 1 1 [facility] for referral (narrative)* Diagnostic Procedure Only (Routine) - Closed Specialty Diagnoses / Procedures Referred By Contac t Referred To Contact XR IMAGING Diagnoses Pain of toe of right foot Procedures XR ANKLE GENERAL 3V AP/LAT/OBL RIGHT RADEX ANKLE COMPLETE MINIMUM 3 VIEWS Fern Solares [address] [place] [address] [place] [address] Referral ID Status Reason Start Date Expiration Date V isits Requested Visits Authorized [id number] Closed Auto-Generate d Referral 12/17/2022 01/16/2024 1 1 * Diagnostic Procedure Only (Routine) - Closed Specialty Diagnoses / Procedures Referred By Contac t Referred To Contact XR IMAGING Diagnoses Pain of toe of right foot Repetitive stress injury Procedures XR FOOT GENERAL 3V AP/LAT/OBL RIGHT RADEX FOOT COMPLETE MINIMUM 3 VIEWS Fenr [address]ares[address] [place] [address] [place] [address] Referral ID Status Reason Start Date Expiration Date V isits Requested Visits Authorized [id number] Closed Auto-Generate d Referral 12/17/2022 01/16/2024 1 1 [facility] for referral (narrative)* Diagnostic Procedure Only (Routine) - Closed Specialty Diagnoses / Procedures Referred By Contac t Referred To Contact XR IMAGING Diagnoses Pain of toe of right foot Procedures XR FOOT GENERAL 3V AP/LAT/OBL RIGHT RADEX FOOT COMPLETE MINIMUM 3 VIEWS Fern Solares[address] [place] [address] [place] [address] Referral ID Status Reason Start Date Expiration Date V isits Requested Visits Authorized [id number] Closed Auto-Generate d Referral 11/03/2022 12/03/2023 1 1 * Diagnostic Procedure Only (Routine) - Closed Specialty Diagnoses / Procedures Referred By Contac t Referred To Contact XR IMAGING Diagnoses Pain of toe of right foot Procedures XR TOE AP/LAT/OBL RIGHT RADEX TOE MINIMUM 2 VIEWS Fern Solares [address] [place] [address] [place] [address] Referral ID Status Reason Start Date Expiration Date V isits Requested Visits Authorized [id number] Closed Auto-Generate d Referral 11/03/2022 12/03/2023 1 1 [facility] for referral (narrative)* Diagnostic Procedure Only (Routine) - Closed Specialty Diagnoses / Procedures Referred By Contac t Referred To Contact XR IMAGING Diagnoses Pain of toe of right foot Procedures XR ANKLE GENERAL 3V AP/LAT/OBL RIGHT RADEX ANKLE COMPLETE MINIMUM 3 VIEWS Fern Solares [address] [place] [address] [place] [address] Referral ID Status Reason Start Date Expiration Date V isits Requested Visits Authorized [id number] Closed Auto-Generate d Referral 12/17/2022 01/16/2024 1 1 * Diagnostic Procedure Only (Routine) - Closed Specialty Diagnoses / Procedures Referred By Contac t Referred To Contact XR IMAGING Diagnoses Pain of toe of right foot Repetitive stress injury Procedures XR FOOT GENERAL 3V AP/LAT/OBL RIGHT RADEX FOOT COMPLETE MINIMUM 3 VIEWS Fern [address] [place] [address] [place] [address] Referral ID Status Reason Start Date Expiration Date V isits Requested Visits Authorized [id number] Closed Auto-Generate d Referral 12/17/2022 01/16/2024 1 1 [facility] for referral (narrative)* Outpatient Procedure (Routine) - Authorized Specialty Diagnoses / Procedures Referred By Contac t Referred To Contact [facility] Diagnoses Chronic cough LYNN (dyspnea on exertion) Procedures SPIROMETRY - BASELINE AND POST DILATOR BRNCDILAT RSPSE SPMTRY PRE&POST-BRNCDILAT ADMN Pamela Nieves APRN.NON DESTRUCTIVE TESTING TECHNICIAN [address] [place] [address] [facility] [place] [address] [place] [id number] Referral ID Status Reason Start Date Expiration Date Visits Requested Visits Authorized [id number] Authorized Auto-Generat ed Referral 11/10/2023 12/09/2024 1 1 * Outpatient Procedure (Routine) - Authorized Specialty Diagnoses / Procedures Referred By Contac t Referred To Contact [facility] Diagnoses Chronic cough LYNN (dyspnea on exertion) Procedures LUNG VOLUMES Pamela Nieves APRN.CASTRO [facility] [place] [id number] [facility] [place] [address] [place] [id number] Referral ID Status Reason Start Date Expiration Date Visits Requested Visits Authorized [id number] Authorized Auto-Generat ed Referral 11/10/2023 12/09/2024 1 1 [facility] for referral (narrative)* Diagnostic Procedure Only (Routine) - Closed Specialty Diagnoses / Procedures Referred By Contac t Referred To Contact XR IMAGING Diagnoses Epigastric pain Left upper quadrant abdominal pain Procedures XR ABDOMEN 1V SUPINE RADIOLOGIC EXAM ABDOMEN 1 VIEW Turner Bundy MD [address] [place], [place] [id number] Xr Imaging [facility] Referral ID Status Reason Start Date Expiration Date V isits Requested Visits Authorized [id number] Closed Auto-Generate d Referral 06/29/2022 07/29/2023 1 1 [facility] for referral (narrative)* Diagnostic Procedure Only (Urgent) - Closed Specialty Diagnoses / Procedures Referred By Contac t Referred To Contact XR IMAGING Diagnoses Abdominal pain, unspecified abdominal location Procedures XR ABDOMEN 1V SUPINE RADIOLOGIC EXAM ABDOMEN 1 VIEW Turner Bundy MD [address] [place] [address] [place] [address] Referral ID Status Reason Start Date Expiration Date V isits Requested Visits Authorized [id number] Closed Auto-Generate d Referral 07/01/2022 07/31/2023 1 1 [facility] for visit Narrative* Diagnostic Procedure Only (Routine) - Closed Specialty Diagnoses / Procedures Referred By Contac t Referred To Contact XR IMAGING Diagnoses Pain of toe of right foot Procedures XR FOOT GENERAL 3V AP/LAT/OBL RIGHT RADEX FOOT COMPLETE MINIMUM 3 VIEWS Fern Solares [address] [place] [address] [place] [address] Referral ID Status Reason Start Date Expiration Date V isits Requested Visits Authorized [id number] Closed Auto-Generate d Referral 11/03/2022 12/03/2023 1 1 [facility] for visit Narrative* Diagnostic Procedure Only (Routine) - Closed Specialty Diagnoses / Procedures Referred By Contac t Referred To Contact XR IMAGING Diagnoses Pain of toe of right foot Procedures XR ANKLE GENERAL 3V AP/LAT/OBL RIGHT RADEX ANKLE COMPLETE MINIMUM 3 VIEWS Fern Solares [address] [place] [address] [place] [address] Referral ID Status Reason Start Date Expiration Date V isits Requested Visits Authorized [id number] Closed Auto-Generate d Referral 12/17/2022 01/16/2024 1 1 [facility] for visit Narrative* Diagnostic Procedure Only (Routine) - Closed Specialty Diagnoses / Procedures Referred By Contac t Referred To Contact XR IMAGING Diagnoses Epigastric pain Left upper quadrant abdominal pain Procedures XR ABDOMEN 1V SUPINE RADIOLOGIC EXAM ABDOMEN 1 VIEW Turner Bundy MD [address] [place] [address] [place] [address] Referral ID Status Reason Start Date Expiration Date V isits Requested Visits Authorized [id number] Closed Auto-Generate d Referral 06/29/2022 07/29/2023 1 [facility] Procedure Only (Urgent) - Closed Specialty Diagnoses / Procedures Referred By Contac t Referred To Contact XR IMAGING Diagnoses Abdominal pain, unspecified abdominal location Procedures XR ABDOMEN 1V SUPINE RADIOLOGIC EXAM ABDOMEN 1 VIEW Turner Bundy MD [address] [place] [address] [place] [address] Referral ID Status Reason Start Date Expiration Date V isits Requested Visits Authorized [id number] Closed Auto-Generate d Referral 07/01/2022 07/31/2023 1 1 [facility] Summary Purpose Family History No Family History Records Found Relationship Condition Age at Onset Recorded Date/T marie Not Specified Diabetes mellitus Unknown Kidney disorder Unknown Hypertension Unknown Asthma Unknown Advance Directives No Advanced Directives Records FoundDocuments on File Type Date Recorded 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 Advance Directive(s) 01/26/2021 12:27 PM Advance Directive(s) 01/13/2021 8:30 AM Advance Directive Response Recorded Date/ Time Advance Directives No December 5:00pm Living Will No August 17, 2021 10:36pm Power of Ethnic Studies Professor No August 17 10:36pm Advance Directive Response Recorded Date/ Time Advance Directives No December 5:00pm Living Will No September 02, 2021 3 :51pm Power of Ethnic Studies Professor No September 02, 2021 3:51pm Advance Directive Response Recorded Date/ Time Advance Directives No December 4:00pm Living Will No April 22 023 5:20pm Power of Ethnic Studies Professor No April 22, 2022 5:20pm Advance Directive Response Recorded Date/ Time Advance Directives No December 5:00pm Living Will No June 02, 2022 6:15pm Power of Ethnic Studies Professor No June 02 6:15pm Advance Directive Response Recorded Date/ Time Advance Directives No December 5:00pm Living Will No October 11 9:08pm Power of Ethnic Studies Professor No October 11 2 023 9:08pm Advance Directive Response Recorded Date/ Time Advance Directives No December 4:00pm Living Will No March 10 11:19am Power of Ethnic Studies Professor No March 10, 2023 11:19am Advance Directive Response Recorded Date/ Time Advance Directives No December 4:00pm Living Will No April 17 024 3:41pm Power of Ethnic Studies Professor No April 17, 2023 3:41pm Chief Complaint and Reason for Visit Chief Complaint ABD PAIN Chief Complaint ABD PAIN SUICIDAL Chief Complaint SI Chief Complaint SI SI Chief Complaint toe pain Chief Complaint n/v Chief Complaint n/v suicidal ideation Reason for Referral Specialty Diagnoses / Procedures Referred By Contac t Referred To Contact Urology Diagnoses Urinary frequency History of kidney stones Microscopic hematuria Procedures CONSULT TO UROLOGY OFFICE/OUTPATIENT [facility] 60-74 MINUTES Jatin Herrera MD [address] [place] [address] Referral ID Status Reason Start Date Expiration Date Visits Requested Visits Authorized [id number] Authorized PCP Requested Referral 03/24/2022 03/24/2023 1 1 Specialty Diagnoses / Procedures Referred By lElyn connors Referred To Contact Podiatry Diagnoses Pain of toe of right foot Procedures CONSULT TO PODIATRY OFFICE/OUTPATIENT [facility] 60-74 MINUTES Turner Bundy MD [address] [place] [address] Referral ID Status Reason Start Date Expiration Date Visits Requested Visits Authorized [id number] Authorized PCP Requested Referral 10/13/2022 10/13/2023 1 1 Additional Source Comments (unrecognized sect ion and content) No Status Records FoundNo Status Records FoundNo Status Records FoundNo Status Records FoundNo Status Records FoundNo Status Records FoundNo Status Records FoundNo Status Records FoundNo Status Records FoundNo Status Records FoundNo Status Records Found INFORMATION SOURCE (unrecogn ized section and content) DATE CREATED AUTHOR 01/22/2018 [facility] DATE CREATED AUTHOR AUTHOR'S ORGANIZ ATION 06/21/2018 [facility] DATE CREATED AUTHOR AUTHOR'S ORGANIZ ATION 02/22/2019 [facility] DATE CREATED AUTHOR AUTHOR'S ORGANIZ ATION 07/12/2019 [facility] DATE CREATED AUTHOR AUTHOR'S ORGANIZ ATION 01/29/2021 [facility] DATE CREATED AUTHOR AUTHOR'S ORGANIZ ATION 05/18/2022 [facility] DATE CREATED AUTHOR AUTHOR'S ORGANIZ ATION 06/12/2022 [facility] DATE CREATED AUTHOR AUTHOR'S ORGANIZ ATION 12/23/2023 [facility] DATE CREATED AUTHOR AUTHOR'S ORGANIZ ATION 01/20/2024 [facility] DATE CREATED AUTHOR AUTHOR'S ORGANIZ ATION 04/29/2024 [facility] DATE CREATED AUTHOR AUTHOR'S ORGANIZ ATION 09/16/2024 [facility] Source Comments (unrecognize d section and content) In the event this informatio n is protected by the Federal Confidentiality of Alcohol and Drug Abuse Patient Records regulations: The Federal rules restrict any use of the information to criminally investigate or prosecute any alcohol or drug abuse patient.[facility] the event this information is protected by the Federal Confidentiality of Alcohol and Drug Abuse Patient Records regulations: The Federal rules restrict any use of the information to criminally investigate or prosecute any alcohol or drug abuse patient.[facility] the event this information is protected by the Federal Confidentiality of Alcohol and Drug Abuse Patient Records regulations: The Federal rules restrict any use of the information to criminally investigate or prosecute any alcohol or drug abuse patient.[facility] the event this information is protected by the Federal Confidentiality of Alcohol and Drug Abuse Patient Records regulations: The Federal rules restrict any use of the information to criminally investigate or prosecute any alcohol or drug abuse patient.[facility] the event this information is protected by the Federal Confidentiality of Alcohol and Drug Abuse Patient Records regulations: The Federal rules restrict any use of the information to criminally investigate or prosecute any alcohol or drug abuse patient.[facility] the event this information is protected by the Federal Confidentiality of Alcohol and Drug Abuse Patient Records regulations: The Federal rules restrict any use of the information to criminally investigate or prosecute any alcohol or drug abuse patient.[facility] Hospital[facility] the event this information is protected by the Federal Confidentiality of Alcohol and Drug Abuse Patient Records regulations: The Federal rules restrict any use of the information to criminally investigate or prosecute any alcohol or drug abuse patient.[facility] Hospital[facility] the event this information is protected by the Federal Confidentiality of Alcohol and Drug Abuse Patient Records regulations: The Federal rules restrict any use of the information to criminally investigate or prosecute any alcohol or drug abuse patient.[facility] Hospital[facility] the event this information is protected by the Federal Confidentiality of Alcohol and Drug Abuse Patient Records regulations: The Federal rules restrict any use of the information to criminally investigate or prosecute any alcohol or drug abuse patient.[facility] Hospital[facility] the event this information is protected by the Federal Confidentiality of Alcohol and Drug Abuse Patient Records regulations: The Federal rules restrict any use of the information to criminally investigate or prosecute any alcohol or drug abuse patient.[facility] Hospital[facility] the event this information is protected by the Federal Confidentiality of Alcohol and Drug Abuse Patient Records regulations: The Federal rules restrict any use of the information to criminally investigate or prosecute any alcohol or drug abuse patient.[facility] Hospital[facility] the event this information is protected by the Federal Confidentiality of Alcohol and Drug Abuse Patient Records regulations: The Federal rules restrict any use of the information to criminally investigate or prosecute any alcohol or drug abuse patient.[facility] Hospital[facility] the event this information is protected by the Federal Confidentiality of Alcohol and Drug Abuse Patient Records regulations: The Federal rules restrict any use of the information to criminally investigate or prosecute any alcohol or drug abuse patient.[facility] Hospital[facility] the event this information is protected by the Federal Confidentiality of Alcohol and Drug Abuse Patient Records regulations: The Federal rules restrict any use of the information to criminally investigate or prosecute any alcohol or drug abuse patient.[facility] Hospital[facility] the event this information is protected by the Federal Confidentiality of Alcohol and Drug Abuse Patient Records regulations: The Federal rules restrict any use of the information to criminally investigate or prosecute any alcohol or drug abuse patient.[facility] HospitalIn the event this information is protected by the Federal Confidentiality of Alcohol and Drug Abuse Patient Records regulations: The Federal rules restrict any use of the information to criminally investigate or prosecute any alcohol or drug abuse patient.[facility] HospitalIn the event this information is protected by the Federal Confidentiality of Alcohol and Drug Abuse Patient Records regulations: The Federal rules restrict any use of the information to criminally investigate or prosecute any alcohol or drug abuse patient.[facility] HospitalIn the event this information is protected by the Federal Confidentiality of Alcohol and Drug Abuse Patient Records regulations: The Federal rules restrict any use of the information to criminally investigate or prosecute any alcohol or drug abuse patient.[facility] HospitalIn the event this information is protected by the Federal Confidentiality of Alcohol and Drug Abuse Patient Records regulations: The Federal rules restrict any use of the information to criminally investigate or prosecute any alcohol or drug abuse patient.[facility] HospitalIn the event this information is protected by the Federal Confidentiality of Alcohol and Drug Abuse Patient Records regulations: The Federal rules restrict any use of the information to criminally investigate or prosecute any alcohol or drug abuse patient.[facility] HospitalIn the event this information is protected by the Federal Confidentiality of Alcohol and Drug Abuse Patient Records regulations: The Federal rules restrict any use of the information to criminally investigate or prosecute any alcohol or drug abuse patient.[facility] HospitalIn the event this information is protected by the Federal Confidentiality of Alcohol and Drug Abuse Patient Records regulations: The Federal rules restrict any use of the information to criminally investigate or prosecute any alcohol or drug abuse patient.[facility] HospitalIn the event this information is protected by the Federal Confidentiality of Alcohol and Drug Abuse Patient Records regulations: The Federal rules restrict any use of the information to criminally investigate or prosecute any alcohol or drug abuse patient.[facility] HospitalIn the event this information is protected by the Federal Confidentiality of Alcohol and Drug Abuse Patient Records regulations: The Federal rules restrict any use of the information to criminally investigate or prosecute any alcohol or drug abuse patient.[facility] HospitalIn the event this information is protected by the Federal Confidentiality of Alcohol and Drug Abuse Patient Records regulations: The Federal rules restrict any use of the information to criminally investigate or prosecute any alcohol or drug abuse patient.[facility] HospitalIn the event this information is protected by the Federal Confidentiality of Alcohol and Drug Abuse Patient Records regulations: The Federal rules restrict any use of the information to criminally investigate or prosecute any alcohol or drug abuse patient.[facility] HospitalIn the event this information is protected by the Federal Confidentiality of Alcohol and Drug Abuse Patient Records regulations: The Federal rules restrict any use of the information to criminally investigate or prosecute any alcohol or drug abuse patient.[facility] HospitalIn the event this information is protected by the Federal Confidentiality of Alcohol and Drug Abuse Patient Records regulations: The Federal rules restrict any use of the information to criminally investigate or prosecute any alcohol or drug abuse patient.[facility] HospitalIn the event this information is protected by the Federal Confidentiality of Alcohol and Drug Abuse Patient Records regulations: The Federal rules restrict any use of the information to criminally investigate or prosecute any alcohol or drug abuse patient.[facility] HospitalIn the event this information is protected by the Federal Confidentiality of Alcohol and Drug Abuse Patient Records regulations: The Federal rules restrict any use of the information to criminally investigate or prosecute any alcohol or drug abuse patient.[facility] HospitalIn the event this information is protected by the Federal Confidentiality of Alcohol and Drug Abuse Patient Records regulations: The Federal rules restrict any use of the information to criminally investigate or prosecute any alcohol or drug abuse patient.[facility] HospitalIn the event this information is protected by the Federal Confidentiality of Alcohol and Drug Abuse Patient Records regulations: The Federal rules restrict any use of the information to criminally investigate or prosecute any alcohol or drug abuse patient.[facility] HospitalIn the event this information is protected by the Federal Confidentiality of Alcohol and Drug Abuse Patient Records regulations: The Federal rules restrict any use of the information to criminally investigate or prosecute any alcohol or drug abuse patient.[facility] HospitalIn the event this information is protected by the Federal Confidentiality of Alcohol and Drug Abuse Patient Records regulations: The Federal rules restrict any use of the information to criminally investigate or prosecute any alcohol or drug abuse patient.[facility] HospitalIn the event this information is protected by the Federal Confidentiality of Alcohol and Drug Abuse Patient Records regulations: The Federal rules restrict any use of the information to criminally investigate or prosecute any alcohol or drug abuse patient.[facility] HospitalIn the event this information is protected by the Federal Confidentiality of Alcohol and Drug Abuse Patient Records regulations: The Federal rules restrict any use of the information to criminally investigate or prosecute any alcohol or drug abuse patient.[facility] HospitalIn the event this information is protected by the Federal Confidentiality of Alcohol and Drug Abuse Patient Records regulations: The Federal rules restrict any use of the information to criminally investigate or prosecute any alcohol or drug abuse patient.[facility] HospitalIn the event this information is protected by the Federal Confidentiality of Alcohol and Drug Abuse Patient Records regulations: The Federal rules restrict any use of the information to criminally investigate or prosecute any alcohol or drug abuse patient.[facility] HospitalIn the event this information is protected by the Federal Confidentiality of Alcohol and Drug Abuse Patient Records regulations: The Federal rules restrict any use of the information to criminally investigate or prosecute any alcohol or drug abuse patient.[facility] HospitalIn the event this information is protected by the Federal Confidentiality of Alcohol and Drug Abuse Patient Records regulations: The Federal rules restrict any use of the information to criminally investigate or prosecute any alcohol or drug abuse patient.[facility] HospitalIn the event this information is protected by the Federal Confidentiality of Alcohol and Drug Abuse Patient Records regulations: The Federal rules restrict any use of the information to criminally investigate or prosecute any alcohol or drug abuse patient.[facility] HospitalIn the event this information is protected by the Federal Confidentiality of Alcohol and Drug Abuse Patient Records regulations: The Federal rules restrict any use of the information to criminally investigate or prosecute any alcohol or drug abuse patient.[facility] HospitalIn the event this information is protected by the Federal Confidentiality of Alcohol and Drug Abuse Patient Records regulations: The Federal rules restrict any use of the information to criminally investigate or prosecute any alcohol or drug abuse patient.[facility] HospitalIn the event this information is protected by the Federal Confidentiality of Alcohol and Drug Abuse Patient Records regulations: The Federal rules restrict any use of the information to criminally investigate or prosecute any alcohol or drug abuse patient.[facility] HospitalIn the event this information is protected by the Federal Confidentiality of Alcohol and Drug Abuse Patient Records regulations: The Federal rules restrict any use of the information to criminally investigate or prosecute any alcohol or drug abuse patient.[facility] HospitalIn the event this information is protected by the Federal Confidentiality of Alcohol and Drug Abuse Patient Records regulations: The Federal rules restrict any use of the information to criminally investigate or prosecute any alcohol or drug abuse patient.[facility] HospitalIn the event this information is protected by the Federal Confidentiality of Alcohol and Drug Abuse Patient Records regulations: The Federal rules restrict any use of the information to criminally investigate or prosecute any alcohol or drug abuse patient.[facility] HospitalIn the event this information is protected by the Federal Confidentiality of Alcohol and Drug Abuse Patient Records regulations: The Federal rules restrict any use of the information to criminally investigate or prosecute any alcohol or drug abuse patient.[facility] HospitalIn the event this information is protected by the Federal Confidentiality of Alcohol and Drug Abuse Patient Records regulations: The Federal rules restrict any use of the information to criminally investigate or prosecute any alcohol or drug abuse patient.[facility] HospitalIn the event this information is protected by the Federal Confidentiality of Alcohol and Drug Abuse Patient Records regulations: The Federal rules restrict any use of the information to criminally investigate or prosecute any alcohol or drug abuse patient.[facility] HospitalIn the event this information is protected by the Federal Confidentiality of Alcohol and Drug Abuse Patient Records regulations: The Federal rules restrict any use of the information to criminally investigate or prosecute any alcohol or drug abuse patient.[facility] HospitalIn the event this information is protected by the Federal Confidentiality of Alcohol and Drug Abuse Patient Records regulations: The Federal rules restrict any use of the information to criminally investigate or prosecute any alcohol or drug abuse patient.[facility] HospitalIn the event this information is protected by the Federal Confidentiality of Alcohol and Drug Abuse Patient Records regulations: The Federal rules restrict any use of the information to criminally investigate or prosecute any alcohol or drug abuse patient.[facility] HospitalIn the event this information is protected by the Federal Confidentiality of Alcohol and Drug Abuse Patient Records regulations: The Federal rules restrict any use of the information to criminally investigate or prosecute any alcohol or drug abuse patient.[facility] HospitalIn the event this information is protected by the Federal Confidentiality of Alcohol and Drug Abuse Patient Records regulations: The Federal rules restrict any use of the information to criminally investigate or prosecute any alcohol or drug abuse patient.[facility] HospitalIn the event this information is protected by the Federal Confidentiality of Alcohol and Drug Abuse Patient Records regulations: The Federal rules restrict any use of the information to criminally investigate or prosecute any alcohol or drug abuse patient.[facility] HospitalIn the event this information is protected by the Federal Confidentiality of Alcohol and Drug Abuse Patient Records regulations: The Federal rules restrict any use of the information to criminally investigate or prosecute any alcohol or drug abuse patient.[facility] HospitalIn the event this information is protected by the Federal Confidentiality of Alcohol and Drug Abuse Patient Records regulations: The Federal rules restrict any use of the information to criminally investigate or prosecute any alcohol or drug abuse patient.[facility] HospitalIn the event this information is protected by the Federal Confidentiality of Alcohol and Drug Abuse Patient Records regulations: The Federal rules restrict any use of the information to criminally investigate or prosecute any alcohol or drug abuse patient.[facility] HospitalIn the event this information is protected by the Federal Confidentiality of Alcohol and Drug Abuse Patient Records regulations: The Federal rules restrict any use of the information to criminally investigate or prosecute any alcohol or drug abuse patient.[facility] HospitalIn the event this information is protected by the Federal Confidentiality of Alcohol and Drug Abuse Patient Records regulations: The Federal rules restrict any use of the information to criminally investigate or prosecute any alcohol or drug abuse patient.[facility] HospitalIn the event this information is protected by the Federal Confidentiality of Alcohol and Drug Abuse Patient Records regulations: The Federal rules restrict any use of the information to criminally investigate or prosecute any alcohol or drug abuse patient.[facility] HospitalIn the event this information is protected by the Federal Confidentiality of Alcohol and Drug Abuse Patient Records regulations: The Federal rules restrict any use of the information to criminally investigate or prosecute any alcohol or drug abuse patient.[facility] HospitalIn the event this information is protected by the Federal Confidentiality of Alcohol and Drug Abuse Patient Records regulations: The Federal rules restrict any use of the information to criminally investigate or prosecute any alcohol or drug abuse patient.[facility] HospitalIn the event this information is protected by the Federal Confidentiality of Alcohol and Drug Abuse Patient Records regulations: The Federal rules restrict any use of the information to criminally investigate or prosecute any alcohol or drug abuse patient.[facility] HospitalIn the event this information is protected by the Federal Confidentiality of Alcohol and Drug Abuse Patient Records regulations: The Federal rules restrict any use of the information to criminally investigate or prosecute any alcohol or drug abuse patient.[facility] HospitalIn the event this information is protected by the Federal Confidentiality of Alcohol and Drug Abuse Patient Records regulations: The Federal rules restrict any use of the information to criminally investigate or prosecute any alcohol or drug abuse patient.[facility] HospitalIn the event this information is protected by the Federal Confidentiality of Alcohol and Drug Abuse Patient Records regulations: The Federal rules restrict any use of the information to criminally investigate or prosecute any alcohol or drug abuse patient.[facility] HospitalIn the event this information is protected by the Federal Confidentiality of Alcohol and Drug Abuse Patient Records regulations: The Federal rules restrict any use of the information to criminally investigate or prosecute any alcohol or drug abuse patient.[facility] HospitalIn the event this information is protected by the Federal Confidentiality of Alcohol and Drug Abuse Patient Records regulations: The Federal rules restrict any use of the information to criminally investigate or prosecute any alcohol or drug abuse patient.[facility] HospitalIn the event this information is protected by the Federal Confidentiality of Alcohol and Drug Abuse Patient Records regulations: The Federal rules restrict any use of the information to criminally investigate or prosecute any alcohol or drug abuse patient.[facility] HospitalIn the event this information is protected by the Federal Confidentiality of Alcohol and Drug Abuse Patient Records regulations: The Federal rules restrict any use of the information to criminally investigate or prosecute any alcohol or drug abuse patient.[facility] HospitalIn the event this information is protected by the Federal Confidentiality of Alcohol and Drug Abuse Patient Records regulations: The Federal rules restrict any use of the information to criminally investigate or prosecute any alcohol or drug abuse patient.[facility] HospitalIn the event this information is protected by the Federal Confidentiality of Alcohol and Drug Abuse Patient Records regulations: The Federal rules restrict any use of the information to criminally investigate or prosecute any alcohol or drug abuse patient.[facility] HospitalIn the event this information is protected by the Federal Confidentiality of Alcohol and Drug Abuse Patient Records regulations: The Federal rules restrict any use of the information to criminally investigate or prosecute any alcohol or drug abuse patient.[facility] HospitalIn the event this information is protected by the Federal Confidentiality of Alcohol and Drug Abuse Patient Records regulations: The Federal rules restrict any use of the information to criminally investigate or prosecute any alcohol or drug abuse patient.[facility] Reason for Visit (unrecogniz ed section and content) Reason Comments Sinus Problem sinus pressure, drai nage, cough x 3 days Reason Onset Date Comments Refill Request 01/08/2022 [...] Numbness Specialty Diagnoses / Procedures Referred By Contac t Referred To Contact Podiatry Diagnoses Pain of toe of right foot Procedures CONSULT TO PODIATRY OFFICE/OUTPATIENT [facility] 60-74 MINUTES Turner Bundy MD [address] [place] [address] Referral ID Status Reason Start Date Expiration Date V isits Requested Visits Authorized [id number] Closed PCP Requested Referral 10/13/2022 10/13/2023 1 [...] high x1 week; not getting any better Reason Comments Hospital F/U Reason Comments Cough Dry cough for 2 days Sore Throat Reason Comments note for work Reason Comments Acute Visit Diarrhea, abdominal pain, sore throat, low grade fever, fatigue since yesterday Reason Onset Date Comments Refill Request 07/22/2023 Reason Comments Refill Request Reason Comments Insurance Authorization Lidocaine patche s Reason Comments Cough Congestion x1 day Reason Onset Date Comments Opened In Error 09/06/2023 Reason Comments 6 Month Exam Reason Comments Diarrhea couple weeks, sore t hroat x couple days, headache x 1 day Reason Comments Cough X 6 months Reason Comments Spirometry Specialty Diagnoses / Procedures Referred By Contac t Referred [facility] Diagnoses Chronic cough LYNN (dyspnea on exertion) Procedures LUNG VOLUMES Knoble, Pamela, CHIEF COOK.NON DESTRUCTIVE TESTING TECHNICIAN [address] [place] [address] [address] Referral ID Status Reason Start Date Expiration Date V isits Requested Visits Authorized [id number] Closed Auto-Generate d Referral 11/10/2023 12/09/2024 1 1 Specialty Diagnoses / Procedures Referred By Contac t Referred To [facility] Diagnoses Chronic cough LYNN (dyspnea on exertion) Procedures SPIROMETRY - BASELINE AND POST DILATOR BRNCDILAT RSPSE SPMTRY PRE&POST-BRNCDILAT ADMN Pamela Nieves APRN.NON DESTRUCTIVE TESTING TECHNICIAN [address] [place] [address] [address] Referral ID Status Reason Start Date Expiration Date V isits Requested Visits Authorized [id number] Closed Auto-Generate d Referral 11/10/2023 12/09/2024 1 1 Reason Onset Date Comments Refill Request 11/25/2023 Reason Comments [facility] ER f/u 11-27-23 Reason Comments ER F/U Reason Comments Sore Throat x 1 day Reason Onset Date Comments Refill Request 02/09/2024 Reason Onset Date Comments Refill Request 02/14/2024 Reason Onset Date Comments Refill Request 02/15/2024 Reason Onset Date Comments Refill Request 03/27/2024 Reason Comments Follow Up Reason Comments Acute Visit Cough, sore throat x 5 days Reason Comments 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 Reason Comments Cough Cough and ST x 3 day s Care Teams (unrecognized sec tion and content) Supervisor Rice Milling Relationship Specialty Start Date End Date Turner Bundy MD [address] [place], [place] [id number] PCP - General Family Practice 12/07/13 Supervisor Rice Milling Relationship Specialty Start Date End Date Turner Bundy MD [address] [place], [place] [id number] PCP - General Family Medicine 12/07/13 Supervisor Rice Milling Relationship Specialty Start Date End Date Turner Bundy MD [address] [place] [address] PCP - General Family Medicine 12/07/13 Supervisor Rice Milling Relationship Specialty Start Date End Date Turner Bundy MD [address] [place] [address] PCP - General Family Medicine 12/07/13 Team Status: Active Member Role Status Dates Dr. Turner Bundy MD Family Provider Active Dr. Turner Bundy MD Primary Care Provider Active Team Status: Inactive Member Role Status Dates Dr. Turner Bundy MD Primary Care Provider Active Dr. Marni Mondragon DO Emergency Provider Active Team Status: Inactive Member Role Status Dates Dr. Turner Bundy MD Primary Care Provider Active Dr. Marni Mondragon DO Attending Provider, Emergency Pro vider Active Team Status: Inactive Member Role Status Dates Dr. Turner Bundy MD Primary Care Provider Active Dr. Alex Membreno , Emergency Provider Active Supervisor Rice Milling Relationship Specialty Start Date End Date Turner Bundy MD [address] [place] [address] PCP - General Family Medicine 12/07/13 Supervisor Rice Milling Relationship Specialty Start Date End Date Turner Bundy MD [address] [place] [address] PCP - General Family Medicine 12/07/13 Supervisor Rice Milling Relationship Specialty Start Date End Date Turner Bundy MD [address] [place] [address] PCP - General Family Medicine 12/07/13 Supervisor Rice Milling Relationship Specialty Start Date End Date Turner Bundy MD [address] [place] [address] PCP - General Family Medicine 12/07/13 Supervisor Rice Milling Relationship Specialty Start Date End Date Turner Bundy MD [address] [place] [address] PCP - General Family Medicine 12/07/13 Supervisor Rice Milling Relationship Specialty Start Date End Date Turner Bundy MD [address] [facility] [place] [address] PCP - General Family Medicine 12/07/13 Supervisor Rice Milling Relationship Specialty Start Date End Date Turner Bundy MD [address] [place] [address] PCP - General Family Medicine 12/07/13 Team Status: Inactive Member Role Status Dates Dr. Turner Bundy MD Primary Care Provider Active Dr. Vazquez Miller MD Emergency Provider Active Supervisor Rice Milling Relationship Specialty Start Date End Date Turner Bundy MD [address] [place] [address] PCP - General Family Medicine 12/07/13 Supervisor Rice Milling Relationship Specialty Start Date End Date Turner Bundy MD [address] [place] [address] PCP - General Family Medicine 12/07/13 Supervisor Rice Milling Relationship Specialty Start Date End Date Turner Bundy MD [address] [facility] [address] PCP - General Family Medicine 12/07/13 Team Status: Inactive Member Role Status Dates Dr. Turner Bundy MD Primary Care Provider Active Dr. Vazquez Miller MD Attending Provider, Emergency Pro vider Active Team Status: Inactive Member Role Status Dates Dr. Turner Bundy MD Primary Care Provider Active Dee Craig CHEESE SPECIALIST, CHEESE SPECIALIST-C Attending Provider, Referring Provider Active Supervisor Rice Milling Relationship Specialty Start Date End Date Turner Bundy MD [address] [facility] [place] [address] PCP - General Family Medicine 12/07/13 Supervisor Rice Milling Relationship Specialty Start Date End Date Turner Bundy MD [address] [facility] [place] [address] PCP - General Family Medicine 12/07/13 Supervisor Rice Milling Relationship Specialty Start Date End Date Turner Bundy MD [address] [facility] [place] [address] PCP - General Family Medicine 12/07/13 Supervisor Rice Milling Relationship Specialty Start Date End Date Turner Bundy MD [address] [facility] [place] [address] PCP - General Family Medicine 12/07/13 Supervisor Rice Milling Relationship Specialty Start Date End Date Turner Bundy MD [address] [facility] [place] [address] PCP - General Family Medicine 12/07/13 Supervisor Rice Milling Relationship Specialty Start Date End Date Turner Bundy MD [address] [facility] [place] [address] PCP - General Family Medicine 12/07/13 Supervisor Rice Milling Relationship Specialty Start Date End Date Turner Bundy MD [address] [facility] [place] [address] PCP - General Family Medicine 12/07/13 Supervisor Rice Milling Relationship Specialty Start Date End Date Turner Bundy MD [address] [facility] [place] [address] PCP - General Family Medicine 12/07/13 Team Status: Inactive Member Role Status Dates Dr. Turner Bundy MD Primary Care Provider Active Dr. Sisi Zavala MD Emergency Provider Active Team Status: Inactive Member Role Status Dates Dr. Turner Bundy MD Primary Care Provider Active Dr. Sisi Zavala MD Attending Provider, Emergency Provider Active Supervisor Rice Milling Relationship Specialty Start Date End Date Turner Bundy MD [address] [place], [place] [address] PCP - General Family Medicine 12/07/13 Supervisor Rice Milling Relationship Specialty Start Date End Date Turner Bundy MD [address] [place], [place] [address] PCP - General Family Medicine 12/07/13 Supervisor Rice Milling Relationship Specialty Start Date End Date Turner Bundy MD [address] [place] [address] PCP - General Family Medicine 12/07/13 Supervisor Rice Milling Relationship Specialty Start Date End Date Turner Bundy MD [address] [place] [address] PCP - General Family Medicine 12/07/13 Supervisor Rice Milling Relationship Specialty Start Date End Date Turner Bundy MD [address] [place] [address] PCP - General Family Medicine 12/07/13 Supervisor Rice Milling Relationship Specialty Start Date End Date Turner Bundy MD [address] [place] [address] PCP - General Family Medicine 12/07/13 Supervisor Rice Milling Relationship Specialty Start Date End Date Turner Bundy MD [address] [place], [place] [address] PCP - General Family Medicine 12/07/13 Supervisor Rice Milling Relationship Specialty Start Date End Date Turner Bundy MD [address] [place], [place] [address] PCP - General Family Medicine 12/07/13 Supervisor [employer] Milling Relationship Specialty Start Date End Date Turner Bundy MD [address] [place] [address] PCP - General Family Medicine 12/07/13 Supervisor [employer] Milling Relationship Specialty Start Date End Date Turner Bundy MD [address] [place], [place] [address] PCP - General Family Medicine 12/07/13 Supervisor Rice Milling Relationship Specialty Start Date End Date Turner Bundy MD [address] [place] [address] PCP - General Family Medicine 12/07/13 Supervisor Rice Milling Relationship Specialty Start Date End Date Turner Bundy MD [address] [place] [address] PCP - General Family Medicine 12/07/13 Supervisor Rice Milling Relationship Specialty Start Date End Date Turner Bundy MD [address] [place] [address] PCP - General Family Medicine 12/07/13 Supervisor Rice Milling Relationship Specialty Start Date End Date Turner Bundy MD [address] [place] [address] PCP - General Family Medicine 12/07/13 Supervisor Rice Milling Relationship Specialty Start Date End Date Turner Bundy MD [address] [place], [place] [address] PCP - General Family Medicine 12/07/13 Supervisor Rice Milling Relationship Specialty Start Date End Date Turner Bundy MD [address] [place] [address] PCP - General Family Medicine 12/07/13 Supervisor Rice Milling Relationship Specialty Start Date End Date Turner Bundy MD [address] [place], [place] [address] PCP - General Family Medicine 12/07/13 Supervisor Rice Milling Relationship Specialty Start Date End Date Turner Bundy MD [address] [place], [place] [address] PCP - General Family Medicine 12/07/13 Supervisor Rice Milling Relationship Specialty Start Date End Date Turner Bundy MD [address] [place] [address] PCP - General Family Medicine 12/07/13 Supervisor Rice Milling Relationship Specialty Start Date End Date Turner Bundy MD [address] [place] [address] PCP - General Family Medicine 12/07/13 Supervisor Rice Milling Relationship Specialty Start Date End Date Turner Bundy MD [address] [place] [address] PCP - General Family Medicine 12/07/13 Francy Mittal APRN.NON DESTRUCTIVE TESTING TECHNICIAN [address] [place] [address] Corrections Counselor Family Medicine 02/06/24 Angelina Claudio APRN.NON DESTRUCTIVE TESTING TECHNICIAN [address] [place] [address] Corrections Counselor Family Medicine 02/06/24 Supervisor Rice Milling Relationship Specialty Start Date End Date Turner Bundy MD [address] [place], [place] [address] PCP - General Family Medicine 12/07/13 Francy Mittal CHIEF COOK.NON DESTRUCTIVE TESTING TECHNICIAN [address] [place] [address] Corrections Counselor Family [facility] 02/06/24 Angelina Claudio CHIEF COOK.NON DESTRUCTIVE TESTING TECHNICIAN [address] [place] [address] [facility] Supervisor Rice Milling Relationship Specialty Start Date End Date Turner Bundy MD [address] [place] [address] PCP - General Family Medicine 12/07/13 Francy Mittal CHIEF COOK.NON DESTRUCTIVE TESTING TECHNICIAN [address] [place] [address] [facility] 02/06/24 Angelina Claudio CHIEF COOK.NON DESTRUCTIVE TESTING TECHNICIAN [address] [place] [address] [facility] 02/06/24 Supervisor Rice Milling Relationship Specialty Start Date End Date Turner Bundy MD [address] [place] [address] PCP - General Family Medicine 12/07/13 Francy Mittal, CHIEF COOK.NON DESTRUCTIVE TESTING TECHNICIAN [address] [place] [address] [facility] 02/06/24 Supervisor Rice Milling Relationship Specialty Start Date End Date Turner Bundy MD [address] [place] [address] PCP - General Family Medicine 12/07/13 Francy Mittal APRN.NON DESTRUCTIVE TESTING TECHNICIAN [address] [place] [address] Corrections Counselor Family Medicine 02/06/24 Angelina Claudio APRN.NON DESTRUCTIVE TESTING TECHNICIAN [address] [facility] [place] [address] Corrections Counselor Family Medicine 02/06/24 Supervisor Rice Milling Relationship Specialty Start Date End Date Turner Bundy MD [address] [facility] [place] [address] PCP - General Family Medicine 12/07/13 Francy Mittal APRN.NON DESTRUCTIVE TESTING TECHNICIAN [address] [place] [address] Corrections Counselor Family Medicine 02/06/24 Angelina Claudio CHIEF COOK.NON DESTRUCTIVE TESTING TECHNICIAN [address] [facility] [place] [address] Corrections Counselor Family Medicine 02/06/24 Supervisor Rice Milling Relationship Specialty Start Date End Date Turner Bundy MD [address] [facility] [place] [address] PCP - General Family Medicine 12/07/13 Francy Mittal CHIEF COOK.NON DESTRUCTIVE TESTING TECHNICIAN [address] [place] [address] Corrections Counselor Family Medicine 02/06/24 Angelina Claudio APRN.NON DESTRUCTIVE TESTING TECHNICIAN [address] [facility] [place] [address] Corrections Counselor Family Medicine 02/06/24 Supervisor Rice Milling Relationship Specialty Start Date End Date Turner Bundy MD [address] [facility] [place] [address] PCP - General Family Medicine 12/07/13 Francy Mittal APRN.NON DESTRUCTIVE TESTING TECHNICIAN [address] [place] [address] Corrections Counselor Family Medicine 02/06/24 Angelina Claudio APRN.NON DESTRUCTIVE TESTING TECHNICIAN [address] [facility] [place] [address] Corrections Counselor Family Medicine 02/06/24 Supervisor Rice Milling Relationship Specialty Start Date End Date Turner Bundy MD [address] [facility] [place] [address] PCP - General Family Medicine 12/07/13 Francy Mittal APRN.NON DESTRUCTIVE TESTING TECHNICIAN [address] [place] [address] Corrections Counselor Family Medicine 02/06/24 Angelina Claudio APRN.NON DESTRUCTIVE TESTING TECHNICIAN [address] [facility] [place] [address] Corrections Counselor Family Medicine 02/06/24 Supervisor Rice Milling Relationship Specialty Start Date End Date Turner Bundy MD [address] [facility] [place] [address] PCP - General Family Medicine 12/07/13 Francy Mittal APRN.NON DESTRUCTIVE TESTING TECHNICIAN [address] [place] [address] Corrections Counselor Family Medicine 02/06/24 Angelina Claudio APRN.NON DESTRUCTIVE TESTING TECHNICIAN [address] [facility] [place] [address] [facility] 02/06/24 Goals (unrecognized section and content) Goals may be documented in a n alternate sectionGoals may be documented in an alternate sectionGoals may be documented in an alternate sectionGoals may be documented in an alternate sectionGoals may be documented in an alternate sectionGoals may be documented in an alternate sectionGoals may be documented in an alternate sectionGoals may be documented in an alternate section FOR RECORDS PERTAINING TO PATIENTS WHO ARE [...] BE BASED ON THE PRIMARY CLINICAL RECORDS. [facility] [employer] provides no warranty or guarantee of the accuracy or completeness of information in this document.
[2024-10-22 19:46] VITALS: BP 116/70; PULSE 60; RESP 18; O2SAT 99
[2024-10-23 03:07] VITALS: BP 113/59; PULSE 61; RESP 18; O2SAT 98
--- NOTE | 2024-10-23 07:44 | PCA ---
ALY SENT REFERRAL TO [facility]
--- NOTE | 2024-10-23 07:49 | ED.RN ---
[facility] called to get information on the pt. They are at capacity but should have some discharges before 11 am. They will call if they are able to take the pt.
--- NOTE | 2024-10-23 10:04 | PCA ---
ALY CALLED @ 1005 AND SAID [facility] DECL[facility]ED BECAUSE OF HIS BED DAYS. [facility]ES TRYING TO GET HIM IN AT [facility]
--- NOTE | 2024-10-23 10:11 | PCA ---
ALY FROM CRISIS CALLED AND [facility] IS REVIEWING HIS INFO, WOULD LIKE PINK SLIP AND EKG.
--- NOTE | 2024-10-23 10:20 | CM.ED ---
Social work SW called Crisis (ph: [phone]) and spoke with Katie upon SW arrival for shift. Katie stated referring patient to multiple locations, but patient was being denied due to bed days. Katie stated treating this case as a straight Medicaid case and patient was under review at [facility] [place], [facility] by [facility]. Katie denied needing SW help at this time and Katie stated being able to call SW if this need changed. Malaika Vaughan, BUTTON BROACHER, REPAIR WELDER
--- NOTE | 2024-10-23 10:40 | EKG12_ITS ---
Test Reason : Blood Pressure : */* mmHG Vent. Rate : 78 BPM Atrial Rate : 78 BPM P-R Int : 160 ms QRS Dur : 86 ms QT Int : 360 ms P-R-T Axes : 16 16 31 degrees QTcB Int : 410 ms Normal sinus rhythm Normal ECG Confirmed by GAVIOTA RIZVI ([id number]), make up editor PREET LEON ([id number]) on 10/24/2024 1:55:01 PM Referred By: AR/TA Confirmed By: GAVIOTA RIZVI
--- NOTE | 2024-10-23 11:07 | ED.RN ---
Dianna legal guardian called to get an update. She is aware of the places he was referred. Dianna's number is [phone]
--- NOTE | 2024-10-23 12:42 | ED.RN ---
Pt accepted at [facility]. Dr Bryant [facility] rm [address] [phone]. [place] [facility] slip made out to [facility].
--- NOTE | 2024-10-23 12:43 | ED.RN ---
[facility] accepted. Dr Bryant [facility] 6 Rm [address] [phone]. [place] slip made out to [facility] and faxed to [phone]. Physicians called and has an ETA of 2 hours.
[2024-10-23 12:49] VITALS: BP 102/60; PULSE 65; RESP 16; TEMP 36.8; O2SAT 96
[2024-10-23 13:38] VITALS: BP 133/80; PULSE 90; RESP 14; TEMP 36.4; O2SAT 96
--- NOTE | 2024-10-23 15:28 | ED.RN ---
[facility]
== END 2024-10-23 16:20 ==
PROVIDERS: Emergency Provider Student in an Organized Health Care Education/Training Program; PCP Family Medicine; Visit Provider Student in an Organized Health Care Education/Training Program
DX: R45.851 Suicidal ideations (principal); F20.9 Schizophrenia, unspecified; F31.9 Bipolar disorder, unspecified; J45.909 Unspecified asthma, uncomplicated; Z91.51 Personal history of suicidal behavior; F43.10 Post-traumatic stress disorder, unspecified; F84.5 Asperger's syndrome; F90.9 Attention-deficit hyperactivity disorder, unspecified type; Z79.899 Other long term (current) drug therapy; Z87.891 Personal history of nicotine dependence
CPT/HCPCS: 80048; 80307; 82077; 85025; 87631; 93005; 99285

== ENCOUNTER 2024-11-09 01:07 | Emergency (ER) | payer MEDICARE, MEDICAID, SELFPAY ==
[2024-11-09 01:07] VITALS: BP 129/79; PULSE 71; RESP 18; TEMP 36.8; O2SAT 99; BMI 32.7
--- NOTE | 2024-11-09 01:12 | EKG12_ITS ---
Test Reason : [facility] Blood Pressure : */* mmHG Vent. Rate : 72 BPM Atrial Rate : 72 BPM P-R Int : 158 ms QRS Dur : 92 ms QT Int : 380 ms P-R-T Axes : 21 15 33 degrees QTcB Int : 416 ms Normal sinus rhythm Normal ECG Confirmed by Anthony Houston ([id number]), manuscript editor PREET LEON ([id number]) on 11/12/2024 1:12:05 PM Referred By: ISAURO Confirmed By: Anthony Houston
--- NOTE | 2024-11-09 01:15 | ED.RN ---
Per Dr. Garcia d/c suicide precautions.
[2024-11-09 01:31] LABS: Hematocrit 38.7 % (40-54); Hemoglobin 12.6 g/dL (13.0-16.5); Immature Granulocytes Count 0.020 X10^3/uL (0.0-0.0); Mean Corp Hgb Conc 32.6 g/dL (32-36); Mean Corpuscular Volume 80.0 fL (80-94); Mean Platelet Vol. 8.7 fl (6.2-12.0); NRBC Flagged by Analyzer 0 % (0-5); Platelet Count 326 K/mm3 (150-450); RBC Distribution Width CV 14.8 % (11.6-14.6); RBC Distribution Width SD 42.4 fl (35.1-43.9); Red Blood Count 4.84 M/mm3 (4.6-6.2); White Blood Count 8.5 K/mm3 (4.4-11.0)
[2024-11-09 01:43] LABS: Barbiturate Urine NEGATIVE (< 200 ng/mL); Benzodiazepine Urine NEGATIVE (< 200 ng/mL); PCP Urine PRESUMPTIVE POSITIVE (< 25 ng/mL); THC Urine NEGATIVE (< 50 ng/mL)
--- OUTSIDE RECORDS SUMMARY | 2024-11-09 01:55 | XMS RPT_ITS | CCD ---
Author Organization [facility] ion [facility] Care Team Providers Care Tax Collector Name Role Phone Ashleigh Kaplan Attending Unavailabl e Horrigan, Ashleigh Alysa Attending Unavailabl e Horrigan, Ashleigh Alysa Attending Unavailabl e Horrigan, Ashleigh Alysa Attending Unavailabl e Horrigan, Ashleigh Alysa Attending Unavailabl e Horrigan, Ashleigh Alysa Attending Unavailabl e Horrigan, Ashleigh Alysa Attending Unavailabl e Horrigan, Ashleigh Alysa Attending Unavailabl Turner Lance MD Primary Care Provider Turner Bundy MD Primary Care Provider Turner Bundy MD Primary Care Provider Pacer, Ms. Agata Muñiz Attending Unavailabl e Pacer, Ms. Agata Muñiz Attending Unavailabl e Pacer, Ms. Agata Muñiz Attending Unavailabl e Pacer, MsAna Cristina Muñiz Attending Unavailabl e Pacer, MsAna Cristina Muñiz Attending Unavailabl e Pacer, MsAna Cristina Muñiz Attending Unavailabl Turner Lance MD Primary Care Provider TANGELA PERSON Attending Unavailable TANGELA PERSON Admitting Unavailable TURNER BUNDY Primary Care Unavailable BOY [place]OCK Attending Unavailable BOY [place]OCK Admitting Unavailable [facility] GENER[facility] Consulting TURNER Galindo Primary Care Unavailable Kyrie MASH FILTER PRESS OPERATOR.Francy ERAZO Unavailable Suppan MASH FILTER PRESS OPERATOR.Angelina ERAZO Unavailable [phone] Suppan MASH FILTER PRESS OPERATOR.HOSPITALITY WORKERS, Angelina Jang Unavailable PAMELA NIEVES Referring Unavailable NIHARIKA, TURNER Primary Care Unavailable KNPAMELA VERDUZCO Referring Unavailable NIHARIKA, TURNER Primary Care Unavailable NIHARIKA, TURNER Attending Unavailable NIHARIKA, TURNER Primary Care Unavailable NIHARIKA, TURNER Attending Unavailable NIHARIKA, TURNER Primary Care Unavailable NIHARIKA, TURNER Referring Unavailable NIHARIKA, TURNER Primary Care Unavailable KNOBLE, PAMELA Referring Unavailable NIHARIKA, TURNER Primary Care Unavailable NIHARIKA, TURNER Primary Care Unavailable JINA GAYLE Referring Unavailable NIHARIKA, TURNER Primary Care Unavailable NIHARIKA, TURNER Attending Unavailable NIHARIKA, TURNER Primary Care Unavailable FRANCY MITTAL Attending Unavailable NIHARIKA, TURNER Primary Care Unavailable TESTRAKE, FERN Attending Unavailable TESTRAKE, FERN Referring Unavailable NIHARIKA, TURNER Primary Care Unavailable NIHARIKA, TURNER Primary Care Unavailable JATIN HERRERA Attending Unavailable GONZÁLEZ, ANGELINA Jang Attending Unavailable NIHARIKA, TURNER Primary Care Unavailable NIHARIKA, TURNER Primary Care Unavailable BROWNOBLE, PAMELA Attending Unavailable NIHARIKA, TURNER Primary Care Unavailable Niharika , Dr. Tompkins Primary Care Provider Dr. Jasmin Husain MD Emergency Provider Unavailab kathy Craig IT ACCOUNT MANAGER, Dee Referring Unavailable Rafa IT ACCOUNT MANAGER, Dee Attending Unavailable Niharika, Turner Primary Care Unavailable Alex Membreno Attending Unavailable Niharika, Turner Primary Care Unavailable Jonnie Boland Attending Unavailable [place], Turner Primary Care Unavailable Jasmin Husain Attending Unavailable Niharika, Turner Primary Care Unavailable Mitzi Carl Attending Unavailable Niharika, Turner Primary Care Unavailable NONE, PCP Referring Unavailable NIHARIKA, TURNER Primary Care Unavailable KLAUDIA HATCH Admitting Unavailable EMS, ANA Attending Unavailable Allergies Allergy Classification Reported Allergen(s) Allergy Type Date of Onset Reaction(s) Facility Methylphenidate (4 sources) Methylphenidate Drug Allergy 01-09-20 05 Mental Status Change, Intolerance [facility] PHENobarbital (2 sources) PHENobarbital Drug Allergy 01-09-20 05 Intolerance [facility] Work Phone: Valproate (2 sources) Valproate Drug Allergy 07-09-19 21 Intolerance [facility] (20 sources) Methylphenidate; Translations: [METHYLPHENIDATE ANALOGUES] Drug Allergy 07-09-19 15 Other: See Comments, Mental Status Change [facility] (20 sources) Methylphenidate; Translations: [METHYLPHENIDATE HCL] Drug Allergy 01-09-20 Intolerance [facility] Work Phone: (20 sources) PHENobarbital; Translations: [PHENOBARBITAL] Drug Allergy 01-09-20 Intolerance [facility] Work Phone: (20 sources) Valproate; Translations: [DIVALPROEX] Drug Allergy 07-09-19 21 Intolerance [facility] (10 sources) carBAMazepine; Translations: [CARBAMAZEPINE] Drug Allergy 08-18-19 22 Unknown [facility] (6 sources) bee venom protein (honey bee) Allergy to substance 06-03-19 23 Anaphylaxis [facility] (2 sources) Methylphenidate; Translations: [METHYLPHENIDATE] Drug Allergy 01-04-20 [facility] (1 source) Milk; Translations: [MILK] Propensity to adverse reactions to drug (disorder) 01-04-20 [facility] (1 source) carBAMazepine Drug Allergy 10-23-19 [facility] (1 source) Methylphenidate Drug Allergy 10-23-19 [facility] (1 source) PHENobarbital Drug Allergy 10-23-19 [facility] (1 source) Valproate Drug Allergy 10-23-19 [facility] (1 source) bee venom protein (honey bee) Drug allergy (disorder) 10-23-19 [facility] Medications Current Medications Medication Drug Class(es) Dates Sig (Normalized) Sig (Original) acetaminophen 500 mg oral tablet (14 sources) Start: 10-22-2024 take 2 tablets by mouth every six hours as needed for pain Acetaminophen 500 mg tablet Active 1000 mg PO EVERY 6 HOURS as needed for pain October 22, 2024 12:00am Start: 02-15-2024 take 2 tablets by mo ut every six hours as needed acetaminophen (TYLENOL [...] 01-18-2024 acetaminophen 1,000 mg tab(s ) (TYLENOL) [id number] 200 actuat albuterol 0.09 mg/actuat metered dose inhaler (20 sources) beta2-Adrenergic Agonist Start: 04-17-2023 Albut altagracia Sulfate 90 mcg/actuation HFA aerosol inhaler Active 2 NMA INHALATION EVERY 6 HOURS as needed for shortness of breath or wheezing April 17, 2023 1:00am Start: 04-17-2023 take 1 puff(s) by in halation every six hours Albuterol Sulfate Active 2 [...] (8 sources) Penicillin-class Antibacterial Start: 4 End: take 1 tablet by mouth twice daily [...] two times a day for 5 days. cefuroxime 250 mg oral tablet (1 source) Cephalosporin Antibacterial Start: 3 End: 3 take 1 tablet by mouth twice daily cefUROXime (CEFTIN) 250 mg tablet Indications: Bronchitis Take 1 tablet by mouth twice daily for 10 days. 20 tablet 0 09/13/2022 09/23/2022 Active Comment on above: Take 1 tablet by ashlyn th twice daily for 10 days. fluticasone propionate 0.05 mg/actuat metered dose nasal spray (20 sources) Corticosteroid Start: Fluticasone Propionate 50 mcg/actuation spray,suspension Active NMA INTRANASAL October 22, 2024 12:00am Start: 06-25-2024 take 2 spray(s) nasa l route once daily fluticasone (FLONASE ALLERGY RELIEF) [...] by mouth two times a day. Active lithium carbonate 600 mg oral capsule (20 sources) Start: 10-22-2024 [place] Carbonate 600 mg capsule Active 600 mg PO October 22, 2024 12:00am Start: 03-07-2024 take 1 capsule by mo [...] 120 capsule 5 04/28/2023 06/25/2024 Discontinued Start: 04-17-2023 take 1 capsule by mo uth once daily at breakfast lithium carbonate (ESKALITH) 300 mg capsule Indications: Schizoaffective disorder, bipolar type (HCC) Take 1 capsule by mouth daily with breakfast. 06/25/2024 Active Start: 06-17-2022 End: 04-28-2023 take 1 capsule by mouth twice daily lithium carbonate (ESKALITH) 300 mg capsule Take 300 mg by mouth two times a day. 06/17/2022 04/28/2023 Discontinued Comment on above: Take 300 mg by mouth two times a day. Take 2 capsules by m outh two times a day. loratadine 10 mg oral tablet (6 sources) Start: 10-22-2024 take 1 tablet by mouth once daily Loratadine 10 mg tablet Active 10 mg PO DAILY October 22, 2024 12:00am Start: 06-25-2024 take 1 tablet by ashlyn once daily loratadine (CLARITIN) 10 mg tablet Indications: Seasonal allergies Take 1 tablet by mouth once daily. 30 tablet 11 06/25/2024 Active methylPREDNISolone (1 source) Corticosteroid Start: 12-17-2022 End: 12-22-2022 methylPREDNISolone (MEDROL, RENZO,) 4 mg Dose-Pack Take as directed 21 tablet 0 12/17/2022 12/22/2022 Active Comment on above: Take as directed nirmatrelvir tablet 300 mg (150 mg x 2) and ritonavir tablet 100 mg in a dose pack (PAXLOVID) (1 source) Start: 02-01-2022 End: 02-06-2022 nirmatrelvir tablet 300 mg (150 mg x [...] capsule (20 sources) Proton Pump Inhibitor Start: 12-24-2015 End: 02-13-2025 take 1 capsule by mouth once daily omeprazole (PRILOSEC) 40 mg capsule Indications: Gastroesophageal reflux disease, unspecified whether esophagitis present Take 1 capsule by mouth once daily. 90 capsule 3 02/14/2024 02/13/2025 Active Comment on above: Take 1 capsule by [facility] once daily. 24 hr paliperidone 3 mg extended release oral tablet (20 sources) Atypical Antipsychotic Start: 01-14-2024 take 1 tablet by mouth once daily, then take 1 tablet by mouth every twenty-fou r hours paliperidone ER (INVEGA) 3 mg 24 hr tablet Take 3 mg by mouth once daily. 01/14/2024 Active Start: 04-28-2023 End: 04-10-2024 paliperidone palm, 3 month, (INVEGA TRINZA) 819 mg/2.63 mL syrg Indications: Schizoaffective disorder, bipolar type (HCC) To be given at office 1 Each 3 04/28/2023 04/10/2024 Discontinued (Other) Start: 06-02-2022 take 3 mg by mouth e very twenty-four hours at bedtime Paliperidone 6 mg tablet extended release 24hr Active 3 mg PO AT BEDTIME June 02, 2022 12:00am Start: 06-02-2022 take 3 mg by mouth at bedtime Paliperidone Active 3 MG PO AT BEDTIME June 01, 2022 11:00pm Start: 06-02-2022 take 6 mg by mouth at bedtime Paliperidone Active 6 MG PO AT BEDTIME June 01, 2022 11:00pm Start: 06-02-2022 End: 10-22-2024 Paliperidone Palm (3 Month) (Invega Trinza) 819 mg/2.63 mL syringe Discontinued 819 mg IM Q3M June 02, 2022 12:00am October 22, 2024 7:05pm Start: 10-17-2018 End: 04-28-2023 inject 234 [IU] [...] (20 sources) Serotonin Reuptake Inhibitor Start: take 1 tablet by mouth every twenty-four hours Sertraline 100 mg tablet Active 100 mg PO Q24H April 17, 2023 1:00am Start: 06-17-2022 take 1 tablet by ashlyn th once daily sertraline (ZOLOFT) 100 mg tablet Take 100 mg by mouth once daily. 06/17/2022 Active Comment on above: Take 100 mg by mouth once daily. urea 400 mg/ml topical cream (20 sources) Start: 06-27-2024 End: 09-25-2024 urea (CARMOL) 40 % APPLY TOPICALLY TO AFFECTED AREA DAILY 85 g 4 06/27/2024 09/25/2024 Active Start: 04-17-2023 Urea 40 % crea m Active 1 NMA TOPICAL DAILY April 17, 2023 1:00am Start: 03-29-2023 End: 03-28-2024 urea (CARMOL) 40 [...] for cough. Take 1 capsule by mo uth three times a day as needed for cough for up to 15 days. benztropine mesylate 0.5 mg oral tablet (20 sources) Anticholinergic, Antihistamine Start: 06-22-19 End: 04-10-19 25 take 1 tablet by mouth twice daily [...] Azole Antifungal, Corticosteroid Start: 2023 End: 2023 clotrimazole-betamet hasone (LOTRISONE) cream Indications: Tinea cruris Apply to affected area two times a day for 14 days. 30 g 03/14/2023 03/28/2023 Comment on above: Apply to affected ar ea two times a day for 14 days. bisacodyl 5 mg delayed release oral tablet (2 sources) Stimulant Laxative Start: 2023 End: 2024 take 1 tablet by mouth once daily as needed for constipation Bisacodyl (Dulcolax (Bisacodyl)) 5 mg tablet,delayed release (DR/EC) Discontinued 5 mg PO DAILY as needed for constipation April 17, 2023 1:00am October 22, 2024 7:03pm 60 actuat budesonide 0.09 mg/actuat dry powder [...] End: 2024 take 1 capsule by mouth three times daily Dicyclomine 10 mg capsule Discontinued 10 mg PO THREE TIMES A DAY April 17, 2023 1:00am October 22, 2024 7:03pm Start: 06-29-2022 End: 12-28-2022 take 1 capsule [...] on above: Take 1 capsule by mo [facility] before meals and at bedtime. docusate sodium 100 mg oral capsule (9 sources) Start: 04-17-2023 End: 10-22-2024 take 1 capsule by mouth once daily Docusate Sodium (Colace) 100 mg capsule Discontinued 100 mg PO DAILY April 17, 2023 1:00am October 22, 2024 7:03pm Start: 02-26-2020 End: 06-29-2022 take 2 capsules by mouth twice daily docusate sodium (STOOL SOFTENER) 100 mg capsule Take 2 capsules by mouth twice daily. 120 capsule 5 02/26/2020 06/29/2022 Discontinued (Other) Comment on above: Take 2 capsules by m out twice daily. doxycycline hyclate 100 mg oral tablet (3 sources) Tetracycline-class Drug Start: 09-01-19 End: 09-08-19 take 1 tablet by mouth twice daily doxycycline (VIBRA-TABS) 100 mg tablet Take 1 tablet by mouth twice daily for 7 days. 14 tablet 08/31/2022 09/07/2022 Comment on above: Take 1 tablet by ashlyn twice daily for 7 days. hydrOXYzine hydrochloride 25 mg oral tablet (20 sources) Antihistamine Start: 01-03-20 End: 10-23-19 take 1 tablet by mouth three times daily Hydroxyzine Hcl 25 mg tablet Discontinued 25 mg PO THREE TIMES A DAY January 03, 2024 1:00am October 22, 2024 7:03pm Start: 11-21-2014 End: 04-10-2024 take 1 capsule by mouth three times daily as needed hydrOXYzine pamoate (VISTARIL) 25 mg capsule Indications: Schizoaffective disorder, bipolar type (HCC) Take 1 capsule by mouth three times a day as needed. 30 capsule 2 05/02/2023 04/10/2024 Discontinued (Other) Comment on above: Take 25 mg by mouth. Take 1 capsule by mo [facility] three times a day as needed. ibuprofen 600 mg oral tablet (20 sources) Nonsteroidal Anti-inflammatory Drug Start: End: 3 take 1 tablet by mouth every six [...] (OPTICHAMBER ADULT MASK-LARGE) ritu (7 sources) Start: 9 End: 3 Inhaler,Assist Devices,Access (OPTICHAMBER ADULT MASK-LARGE) ritu Indications: [...] 3000 unt oral tablet (20 sources) Start: 4 End: 5 take 1 tablet by mouth three times daily at mealtime lactase (LACTAID) 3,000 unit tablet Indications: Lactose intolerance Take 1 tablet by mouth three times a day with meals. 90 tablet 11 09/19/2023 04/10/2024 Discontinued (Other) lamoTRIgine 100 mg oral tablet (20 sources) Mood Stabilizer, Anti-epileptic Agent Start: 4 End: 5 take 1 tablet by mouth twice daily Lamotrigine 100 mg tablet Discontinued 100 mg PO TWICE A DAY January 03, 2024 1:00am October 22, 2024 7:03pm Start: 11-19-2020 End: 04-27-2024 take 1 tablet by mouth twice daily lamoTRIgine (LAMICTAL) 200 mg tablet Indications: Schizoaffective disorder, bipolar type (HCC) Take 1 tablet by mouth two times a day. 60 tablet 11 04/28/2023 Active Start: 12-07-2013 End: 03-14-2023 take 1 tablet by mouth twice daily lamoTRIgine (LAMICTAL) 150 mg tablet Indications: Seizure (HCC) Take 1 tablet by mouth twice daily. 60 tablet 5 12/07/2013 03/14/2023 Discontinued Comment on above: Take 1 tablet by ashlyn twice daily. Take 1 tablet by ashlyn two times a day. lidocaine 0.05 mg/mg medicated patch (20 sources) Antiarrhythmic, Amide Local Anesthetic Start: 04-17-2023 End: 10-22-2024 Lidocaine 5 % adhesive patch,medicated Discontinued 1 NMA TD DAILY April 17, 2023 1:00am October 22, 2024 7:03pm Start: 04-06-2023 End: 04-10-2024 apply 1 dose [...] Start: 10-13-2022 take 1 tablet by ashlyn once daily at mealtime meloxicam (MOBIC) 7.5 mg tablet Indications: Pain of toe of right foot Take 1 tablet by mouth once daily. Take with food. 10 tablet 0 10/13/2022 Active Comment on above: Take 1 tablet by ashlyn once daily. Take with food. Take 1 tablet by [facility] once daily. mirtazapine 15 mg oral tablet (13 sources) Start: 01-03-2024 End: 10-22-2024 take 1 tablet by mouth once daily [...] tablet by ashlyn th daily at bedtime. naproxen 500 mg oral tablet (1 source) Nonsteroidal Anti-inflammatory Drug Start: End: take 1 tablet by mouth twice daily as needed for pain Naproxen (Naprosyn) 500 mg tablet Discontinued 500 mg PO TWICE A DAY as needed for pain July 31, 2023 12:00am November 27, 2023 2:15pm OLANZapine 5 mg oral tablet (9 sources) [...] 01/10/2021 Discontinued predniSONE 10 mg oral tablet (14 sources) Start: End: predniSONE (DELTASONE) 10 mg [...] 09/19/2023 Discontinued (Course of therapy completed) Start: 07-31-2023 End: 11-27-2023 take 2 tablets by mouth once daily Prednisone 20 mg tablet Discontinued 40 mg PO DAILY 8 0 July 31, 2023 12:00am November 27, 2023 2:16pm Start: 09-03-2022 End: 09-08-2022 take 1 tablet by mouth once daily at mealtime predniSONE (DELTASONE) 20 mg tablet Indications: Bronchitis , Mild intermittent asthma without complication Take 1 tablet by mouth once daily for 5 days. Take daily with food. 5 tablet 09/03/2022 09/08/2022 Comment on above: Take 1 tablet by ashlyn once daily for 5 days. Take daily with food. QUEtiapine 25 mg oral tablet (3 sources) Atypical Antipsychotic Start: End: take 1 tablet by mouth at bedtime Quetiapine 25 mg tablet Discontinued 25 mg PO AT BEDTIME January 03, 2024 1:00am October 22, 2024 7:05pm Start: 01-03-2024 End: 10-22-2024 take 1 tablet by mouth at bedtime Quetiapine 50 mg tablet Discontinued 50 mg PO AT BEDTIME January 03, 2024 1:00am October 22, 2024 7:05pm End: 01-10-2021 take 1 tablet by mouth once daily at bedtime QUEtiapine ER (SEROQUEL XR) 200 mg 24 hr tablet Take 200 mg by mouth daily at bedtime. 01/10/2021 Discontinued risperiDONE 0.5 mg oral tablet (20 sources) Atypical Antipsychotic Start: 04-28-2023 End: 04-27-2024 take 3 tablets by mouth twice daily risperiDONE (RISPERDAL) 0.5 mg tablet Indications: Schizoaffective disorder, bipolar type (HCC) Take 3 tablets by mouth two times a day. 180 tablet 11 04/28/2023 04/10/2024 Discontinued (Other) Comment on above: Take 3 tablets by mo uth two times a day. traZODone hydrochloride 50 mg oral tablet (20 sources) Serotonin Reuptake Inhibitor Start: 04-28-2023 End: 10-25-2023 take 1 tablet by mouth once daily at bedtime traZODone (DESYREL) 50 mg tablet Indications: Schizoaffective disorder, bipolar type (HCC) Take 1 tablet by mouth daily at bedtime. 30 tablet 5 04/28/2023 10/25/2023 Start: 12-23-2020 End: 04-17-2023 take 1 tablet by mouth at bedtime Trazodone 50 mg Tablet Discontinued 50 mg PO AT BEDTIME August 17, 2021 12:00am April 17, 2023 9:15pm Start: 12-23-2020 End: 04-28-2023 take 3 tablets by mouth once daily at bedtime traZODone (DESYREL) 50 mg tablet Take 150 mg by mouth daily at bedtime. 12/23/2020 04/28/2023 Discontinued Comment on above: Take 1 tablet by ashlyn daily at bedtime. Take 150 mg by mouth daily at bedtime. triamcinolone acetonide 0.001 mg/mg topical ointment (20 sources) Corticosteroid Start: 04-17-2023 End: 10-22-2024 Triamcinolone Acetonide 0.1 % ointment Discontinued 1 NMA TOPICAL TWICE A DAY as needed for muscle relaxer April 17, 2023 1:00am October 22, 2024 7:05pm Start: 04-12-2023 End: 04-10-2024 triamcinolone acetonide (SANDI ALOG) 0.1 % ointment Indications: Dermatitis Apply to [...] flank pain; Translations: [Unspecified abdominal pain] Onset: 7 Resolved: 6 04-19-2019 Episodic Acute bronchitis (10 sources) Acute bronchitis; Translations: [Acute bronchitis, unspecified] 02-17-2015 Episodic Allergic reactions (1 source) Inflammatory dermatosis; Translations: [Dermatitis, unspecified] 04-12-2023 Episodic Asthma (20 sources) Mild intermittent asthma; Translations: [Mild intermittent asthma, uncomplicated] Onset: 6 01-30-2016 Chronic Attention-deficit, conduct, and disruptive behavior disorders (20 sources) Attention deficit hyperactivity disorder; Translations: [Attention-deficit hyperactivity disorder, unspecified type] 01-13-2015 Chronic Biliary tract disease (18 sources) Gallstone; Translations: [Calculus of gallbladder without [...] dementia, and amnestic and other cognitive disorders (9 sources) Postconcussion syndrome; Translations: [Postconcussional syndrome] 03-20-2016 Chronic Disorders usually diagnosed in infancy, childhood, or adolescence (20 sources) Asperger's disorder; Translations: [Asperger's syndrome] Onset: 6 03-08-2017 Chronic E Codes: Natural/environment (2 sources) Repetitive motion disorder; Translations: [Overexertion from repetitive movements, initial encounter] 12-17-2022 Episodic Epilepsy; convulsions (20 sources) Seizure disorder; Translations: [Epilepsy, unspecified, intractable, without status epilepticus] Onset: 6 Resolved: 6 03-20-2016 Chronic Esophageal disorders (20 sources) Gastroesophageal reflux disease; Translations: [Gastro-esophageal reflux disease without esophagitis] Onset: 6 01-30-2016 Chronic Genitourinary symptoms and ill-defined conditions (3 sources) Dysuria; Translations: [Dysuria] Episodic Headache; including migraine (9 sources) Headache; Translations: [Headache] 07-04-2020 Episodic HIV infection (1 source) Fatigue associated with AIDS; Translations: [Human immunodeficiency virus [HIV] disease] 07-14-2023 Chronic Immunizations and screening for infectious disease (1 source) Vaccination needed; Translations: [Encounter for immunization] 12-02-2023 Episodic Impulse control disorders, NEC (18 sources) Homicidal thoughts; Translations: [Homicidal ideations] 08-17-2018 [...] of corpus callosum] Onset: 3 08-17-2021 Chronic Comment on above: mild mental retardat ion Nonspecific chest pain (1 source) Chest pain; Translations: [Chest pain, unspecified] 12-05-2023 Episodic Nutritional deficiencies (1 source) Vitamin D deficiency, unspecified; Translations: [Vitamin D deficiency, unspecified] Onset: Chronic Other aftercare (3 sources) Patient encounter status; Translations: [Encounter for therapeutic drug level monitoring] Episodic Other bone disease and musculoskeletal deformities (1 source) Costal chondritis; Translations: [Chondrocostal junction syndrome [Tietze]] 08-08-2023 Episodic Other connective tissue disease (5 sources) Pain in hallux; Translations: [Pain in [...] [Pain in toe of right foot] Onset: Episodic Other connective tissue disease (1 source) Foot pain; Translations: [Pain in right foot] 01-12-2024 Episodic Other ear and sense organ disorders [...] unspecified] 10-24-2023 Episodic Other lower respiratory disease (9 sources) Pleuritic pain; Translations: [Pleurodynia] 02-17-2015 Episodic [...] obesity due to excess calories] Onset: 03-14-2023 Chronic Other nutritional; endocrine; and metabolic disorders (3 sources) Intolerance to lactose; Translations: [Lactose intolerance, unspecified] 09-19-2023 Chronic Other skin disorders (3 sources) Skin irritation ; Translations: [Other skin changes] 04-06-2023 Episodic Other upper respiratory disease (1 source) Seasonal allergy; Translations: [Other seasonal allergic rhinitis] 06-25-2024 Chronic Other upper respiratory disease (1 source) Other seasonal allergic rhinitis; Translations: [Seasonal allergies] Onset: Chronic Other upper respiratory disease (1 source) [...] specified conditions] 02-17-2015 Episodic Residual codes; unclassified (15 sources) Auditory hallucinations; Translations: [Auditory hallucinations] 05-28-2020 Episodic Residual codes; unclassified (1 source) Personal history of other specified conditions; Translations: [History of seizure] 02-17-2015 Episodic Schizophrenia and other psychotic disorders (20 sources) Psychotic disorder; Translations: [Unspecified psychosis not due to a substance or known physiological condition] Onset: 4 11-19-2020 Chronic Screening and history of mental health and substance abuse codes (20 sources) H/O: schizophrenia; Translations: [Personal history of other mental and behavioral disorders] 04-22-2022 Episodic Suicide and intentional self-inflicted injury (20 sources) Suicidal thoughts; Translations: [Suicidal ideations] Onset: 5 04-22-2022 Episodic Unclassified (20 sources) PMH - PAST MEDICAL HISTORY OF 01-08-2005 Unclassified (1 source) Acute cough; Translations: [Acute cough] Onset: 4 Viral infection (1 source) Disease caused by 2019-nCoV; Translations: [COVID-19] Episodic Past or Other Problems Problem Classification Problem Date Documented Da te Episodic/Chronic Cardiac dysrhythmias (3 sources) Palpitations; Translations: [Palpitations] Onset: 01-03-2024 12-02-2023 Episodic Deficiency and other anemia (1 source) Anemia, unspecified; Translations: [Anemia, unspecified type] Onset: 12-02-2023 Episodic Diabetes mellitus without complication (2 sources) Hyperglycemia; Translations: [Hyperglycemia, unspecified] Onset: 12-02-2023 12-02-2023 Episodic Fluid and electrolyte disorders (2 sources) Hypokalemia; Translations: [Hypokalemia] Onset: 12-02-2023 12-02-2023 Episodic Immunity disorders (20 sources) Selective immunoglobulin dysfunction; 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 He denies concerns with discharge back to his care home. His caregiver will be picking him up at 1pm. Call to [facility] to provide update with Nu Violetta, she was not available so a message was left. [facility] [phone] Imm letter review at bedside. [facility] 94on 10-30-2024 94 Department: [facility] Dual Diagnosis Unit 6 Group Topic: Affirmation Group Date: 10/30/2024 Start Time: 1030 End Time: 1115 Facilitators: MARIA ELENA Kc Number of Participants: 4 Group Name: Dual Diagnosis Treatment Modality: Cognitive Behavioral Therapy Purpose: increase insight or knowledge Summary: Started group out with a daily reading from The Language of Letting Go book that was about challenging our core negative thinking that leads to patterns of depression and anxiety. Each group member introduced themselves and shared one goal they were working on today. Discussed worksheet on what Core Beliefs are and how to begin forming new ones. Each group member was given a list of 101 positive affirmations and asked to identify a few that they can use for daily affirmations. Name: Levy Todd Date of : 1995 MR: [id number] Mental Status Exam: Appearance: Appropriately dressed and groomed Mood: Anxious and Depressed Affect: Full Behavior: Cooperative Alertness: Alert Speech: Normal pace Cognition: Intact Thought Process: Goal-directed Thought Content: No evidence of psychosis/delusions Level/Quality of Participation: attentive Interactions with others: gave feedback Interventions utilized were Building rapport and engagement, Empathic listening, and Cognitive Behavioral Therapy (CBT) Patient's Response to Intervention: Pt came to group and was attentive. Pt shared that one goal she is working on is getting ready for dsicharge Progress Towards Goal(s): Minimal Additional Comments: N/A Next Step: Continue with current services Patients Problems: Patient Active Problem List Diagnosis Mood disorder (HCC) Suicidal ideation Psychosis, paranoid (HCC) [facility] Nursing Noteon 10-30-2024 Nursing Note Patient discharged b ack to care home at this time. Personal belongings returned from protective services, paperwork signed. Denies SI/HI/AVH. Left unit ambulatory with staff. Picked up by member of care home [facility] Nursing Note Patient up and visib le on there unit for morning assessment. Patient independent with ADLs and ambulation, A&Ox4. Patient expressing passive SI, states that last night he attempted to cut arms with the toothpaste tube which has since been removed. Patient does contract for safety at this time., does not want to be discharged back to his care home does not feel safe there. Patient endorses AH, voices telling him to hurt self, denies VH at this time. Appetite, hygiene, and sleep adequate. Compliant with medications and treatment offered. Patient encouraged to let staff know of any changes or concerns. Will monitor for safety this shift. 1015am: Patient aware he is being discharged back to care home today. Seems in good spirits regarding going back, speaking of which care home aide he hopes to pick him up. Safety plan complete. [facility] Nursing Note Patient was in day r oom at onset of shift with peers active and social. Pleasant and joking on approach. He remained out in milieu until 11pm. Was medication compliant, admits to vague fleeting suicidal thoughts but stated he felt safe here, at 23:25 patient approached staff and stated I think you are going to have to send me to that other unit. When questioned why he stated I cut myself on the arms with my toothpaste container. RN examined and could barely see even red mcdaniel on the skin. Patient stated he didn't feel totally safe at this point but did not admit to continued SI or urges to self harm. Was given IM zyprexa to help his agitation and to control his urges. This was effective and he was able to fall asleep. [facility] 30on 10-29-2024 30 Problem: IP Suicidal Ideation Goal: LTG: Levy will exhibit compliance with therapy Outcome: Progressing Goal: STG: Levy will not engage in self-injurious activities Outcome: Progressing Goal: STG: Levy will be able to notify staff when experiencing harmful thoughts towards themselves or others Outcome: Progressing Goal: Denies harm toward self or others Outcome: Progressing Problem: Safety - Adult Goal: Free from fall injury Outcome: Progressing Problem: Discharge Planning Goal: Discharge to home or other facility with appropriate resources Outcome: Progressing Problem: Thought Disorders Goal: LTG: Levy will exhibit a decrease in psychotic symptoms Outcome: Progressing Goal: Notifies staff when experiencing hallucinations/delusions Outcome: Progressing Goal: Verbalizes reduction in hallucinations/delusions Outcome: Progressing [facility] 30 Problem: IP Suicidal Ideation Goal: STG: Levy will not engage in self-injurious activities Outcome: Progressing Goal: STG: Levy will be able to notify staff when experiencing harmful thoughts towards themselves or others Outcome: Progressing Goal: Denies harm toward self or others Outcome: Progressing [facility] 94on 10-29-2024 94 Department: [facility] ACTIVITIES THERAPY Group Topic: Concentration Group Date: 10/29/2024 Start Time: 1230 End Time: 1300 Facilitators: Remi Salas Number of Participants: 3 Group Name: Concentration through painting Treatment Modality: Leisure Development Purpose: enhance coping skills Summary: Concentration through water color painting Name: Levy Todd Date of : 1995 MR: [id number] Mental Status Exam: Appearance: Appropriately dressed and groomed Mood: Euthymic Affect: Full Behavior: Pleasant Alertness: Alert Speech: Appropriate Cognition: Intact Thought Process: Goal-directed Thought Content: No evidence of psychosis/delusions Level/Quality of Participation: cooperative Interactions with others: supportive Interventions utilized were Building rapport and engagement Progress Towards Goal(s): None Next Step: Continue with current services Patients Problems: Patient Active Problem List Diagnosis Mood disorder (HCC) Suicidal ideation Psychosis, paranoid (HCC) [facility] 94 Department: [facility] ACTIVITIES THERAPY Group Topic: Other Group Date: 10/29/2024 Start Time: 0930 End Time: 1000 Facilitators: Fátima Hernández Number of Participants: 4 Group Name: Leisure Development Treatment Modality: Activity Therapy Purpose: enhance coping skills, express feelings, and reinforce self-care Summary: Patient will focus on game playing activities a game that is organized and meant to enhance the therapeutic experience patient will learn games ,skills and techniques Q&A. Object of game is to prompt conversations a fun way to get participants to engage with the group, enhance coping skills,social skills and encourage listening skills to allow patient's to brainstorm ways to spend free time and engage in healthy activities . Name: Levy Todd Date of : 1995 MR: [id number] Appearance: Appropriately dressed and groomed Affect: Appropriate Behavior: Pleasant Alertness: Alert Speech: Appropriate Level/Quality of Participation: active Interactions with others: gave feedback Interventions utilized were Building rapport and engagement Patient's Response to Intervention: Patient actively engaged in group social on task supportive of peers. Will continue to offer groups and encourage participation Patients Problems: Patient Active Problem List Diagnosis Mood disorder (HCC) Suicidal ideation Psychosis, paranoid (HCC) [facility] Nursing Noteon 10-29-2024 Nursing Note RN introduced self t o the pt in the day area. Pt was socializing with others and was pleasant and cooperative with assessment and medication. Denies SI/HI/AH/VH at this time, but says he can have fleeting SI at times. Pt reports being nervous about returning to care home compared to staying here, but pt is aware that he cannot stay here forever. Pt ate all his breakfast and has been playing games with other patients. Declines any immediate needs. Will continue to monitor. [facility] Nursing Note Pt up watching TV wi th peers during evening hours. Cooperative with VS & assessment. A&Ox4. Pt endorses wish & SI w/o a plan. States he feels safe here. Denies HI & A/V Hallucinations. Cooperative with meds. No c/o pain or other discomfort. Sleeping at long intervals. Remains on q 15 min checks. Normal [facility] 94on 10-28-2024 94 Department: [facility] ACTIVITIES THERAPY Group Topic: Other Group Date: 10/28/2024 Start Time: 929 End Time: 0 Facilitators: Christo Diana Number of Participants: 7 Group Name: Soniakeshashi Treatment Modality: Leisure Development Purpose: express feelings, improve communication skills, and reinforce self-care Summary: Pts will choose a song from a given list. Pts will share how the song has impacted their life or how the song is meaningful to them. Pts will have the opportunity to listen, sing, or otherwise perform the song with the therapist if they desire. Name: Levy Todd Date of : 1995 MR: [id number] Appearance: Appropriately dressed and groomed Mood: Euthymic Affect: Appropriate Behavior: Pleasant Alertness: Alert Speech: Appropriate Level/Quality of Participation: active Interactions with others: supportive Interventions utilized were Building rapport and engagement and Empathic listening Patient's Response to Intervention: Pt voiced improvement Next Step: Continue with current services Patients Problems: Patient Active Problem List Diagnosis Mood disorder (HCC) Suicidal ideation Psychosis, paranoid (HCC) [facility] Nursing Noteon 10-28-2024 Nursing Note Patient was having a little anxiety. Patient stated he was seeing puppies when he sleeps. He stated that he knows this is not real and he loves animals. Vistaril was given. Patient is now interacting with his peers and watching TV. [facility] 10-27-2024 30 Problem: IP Suicidal Ideation Goal: LTG: Levy will exhibit compliance with therapy Outcome: Progressing Goal: STG: Levy will not engage in self-injurious activities Outcome: Progressing Goal: STG: Levy will be able to notify staff when experiencing harmful thoughts towards themselves or others Outcome: Progressing Goal: Denies harm toward self or others Outcome: Progressing Problem: Safety - Adult Goal: Free from fall injury Outcome: Progressing Problem: Discharge Planning Goal: Discharge to home or other facility with appropriate resources Outcome: Progressing Problem: Thought Disorders Goal: LTG: Levy will exhibit a decrease in psychotic symptoms Outcome: Progressing Goal: Notifies staff when experiencing hallucinations/delusions Outcome: Progressing Goal: Verbalizes reduction in hallucinations/delusions Outcome: Progressing Care plan reviewed [facility] 94on 10-27-2024 94 Department: [facility] ACTIVITIES THERAPY Group Topic: Other Group Date: 10/27/2024 Start Time: 929 End Time: 1009 Facilitators: Fátima Hernández Number of Participants: 5 Group Name: Art/ Jazz music Treatment Modality: Activity Therapy Purpose: enhance coping skills, express feelings, and reinforce self-care Summary: To provide each patient an opportunity to express themselves through art a group focus on creative activities allowing each patient to explore their own unique artistic style and have the chance to appreciate the differences of others. Patient will work independently or as part of the team all task will be planned to match the functional level of each patient. Name: Levy Todd Date of : 1995 MR: [id number] Appearance: Appropriately dressed Affect: Appropriate Behavior: Pleasant Alertness: Alert Speech: Appropriate Level/Quality of Participation: active Interactions with others: gave feedback Interventions utilized were Building rapport and engagement Patient's Response to Intervention: Patient actively engaged in group promoting relaxation. Will continue to offer groups and encourage participation Patients Problems: Patient Active Problem List Diagnosis Mood disorder (HCC) Suicidal ideation Psychosis, paranoid (HCC) [facility] Nursing Noteon 10-27-2024 Nursing Note Prn medication effective, pt resting quietly. [facility] Nursing Note Pt reports feeling nauseas with stomach upset. Pt given prn Phenergan. [facility] Nursing Note Pt on unit socializi ng with peers. Pt calm and cooperative during assessment. Pt presents as child like at times with blunted affect. Pt does report passive SI with no plan no intent. Pt reports feels safe on the unit and will come to staff if SI increases. Pt compliant with medication. [facility] Nursing Note 1300: Administered P RN Tylenol for headache. Will monitor for medication effectiveness. [facility] Nursing Note Patient up and visib le on the unit. Independent with ADLs and ambulation, A&Ox3. Patient said I had a total freak out yesterday, I couldn't keep it in. Patient states he feels better today but says he is not ready to go yet. Encouraged to speak with the doctor. Patient social with staff and peers, mood appears euthymic but anxious. Appetite, hygiene, and sleep adequate. Patient compliant with medications and treatment offered. Educated to let staff know of any changes or concerns. Patient has a guardian. Will monitor for safety this shift. [facility] 10-26-2024 30 Problem: IP Suicidal Ideation Goal: LTG: Levy will exhibit compliance with therapy Outcome: Progressing Goal: STG: Levy will not engage in self-injurious activities Outcome: Progressing Goal: STG: Levy will be able to notify staff when experiencing harmful thoughts towards themselves or others Outcome: Progressing Goal: Denies harm toward self or others Outcome: Progressing [facility] [id number] 10-26-2024 [id number] TC to [facility] machine programmer Diane Merino [phone]. Follow up review. Pt able to return to care home. Request medication be sent to [facility] for delivery. If dc today will need paper prescription to cover until delivery. staff able to provide transportation for pt to participate in IOP, and for discharge. Pt to be discharged 10/30/24. [place] notified. [place] to call with [facility] number. Able to provide transportation at 1pm on Tuesday. from [place], pt uses [facility]. [facility]. [facility] 94on 10-26-2024 94 Department: [facility] ACTIVITIES THERAPY Group Topic: Other Group Date: 10/26/2024 Start Time: 1600 End Time: 1640 Facilitators: Christo Diana Number of Participants: 6 Group Name: Trivia Treatment Modality: Leisure Development Purpose: express feelings, improve communication skills, and reinforce self-care Summary: Pts will engage in trivia surrounding several areas of pop culture. After each question and answer, pts are encouraged to discuss their relation to the topic, where they were when such and such happened, when they first heard a song, their first impressions of a movie etc. Name: Levy Todd Date of : 1995 MR: [id number] Appearance: Appropriately dressed and groomed Mood: Euthymic Affect: Appropriate Behavior: Pleasant Alertness: Alert Speech: Appropriate Level/Quality of Participation: active Interactions with others: supportive Interventions utilized were Building rapport and engagement and Empathic listening Patient's Response to Intervention: Pt voiced improvement Next Step: Continue with current services Patients Problems: Patient Active Problem List Diagnosis Mood disorder (HCC) Suicidal ideation Psychosis, paranoid (HCC) [facility] 94 Department: [facility] Psych[facility] Unit 5 Group Topic: Art Therapy Group Date: 10/26/2024 Start Time: 1400 End Time: 1530 Facilitators: MARIA ELENA Bose Number of Participants: 6 Group Name: Art Therapy; Both Kinds of Days; Coping Mechanisms Treatment Modality: Art Therapy, [place] Therapy, Patient-Centered Therapy, Psychoeducation, and Skills Training Purpose: enhance coping skills, express feelings, increase insight or knowledge, and reinforce self-care Summary: Facilitated group re: Both Kinds of days. Therapist facilitated discussion of quote prompt to engage group in discussin coping mechanisms and self-acceptance when dealing with both difficult and not so difficult times. Therapist facilitated art therapy task: create two sides of yourself, one dealing with difficult days, one dealing with not so difficult days, on body templates provided. Therapist facilitated art making experience. Therapist facilitated processing of individual body form art. Name: Levy Todd Date of : 1995 MR: [id number] Mental Status Exam: Appearance: Appropriately dressed and groomed Mood: Euthymic Affect: Appropriate Behavior: Pleasant and Cooperative Alertness: Alert Speech: Appropriate Cognition: Intact Thought Process: Could not assess due to limited interaction with therapist and others Thought Content: Could not assess due to limited interaction with therapist and others Level/Quality of Participation: active and that until removed from group by care provider Interactions with others: Little to none Interventions utilized were: Building rapport and engagement, Empathic listening, Psychoeducation, Modeling/skills training, Art therapy, Expressive therapy, and [place] therapy Patient's Response to Intervention, Progress, Next Step: Could not be assessed as patient was pulled from group by a care provider and did not return to group. Patients Problems: Patient Active Problem List Diagnosis Mood disorder (HCC) Suicidal ideation Psychosis, paranoid (HCC) Normal [facility] 94 Department: [facility] ACTIVITIES THERAPY Group Topic: Music Therapy Group Date: 10/26/2024 Start Time: 929 End Time: 1000 Facilitators: Marsha Pichardo Number of Participants: 5 Group Name: Song share Treatment Modality: music therapy Purpose: enhance coping skills and express feelings Summary: Pt was given the opportunity to share a song that has been helpful to them in a difficult time or makes them feel better with the group. Pt was asked to give feedback to peer choices. Discussed how music can be used as a coping skill and for emotional regulation and expression. Name: Levy Todd Date of : 1995 MR: [id number] Mental Status Exam: Appearance: Appropriately dressed and groomed Mood: Euthymic Affect: Full Behavior: Pleasant and Cooperative Alertness: Alert Speech: Appropriate Cognition: [place] Thought Process: Goal-directed Thought Content: No evidence of psychosis/delusions Level/Quality of Participation: active, attentive, and cooperative Interactions with others: gave feedback Interventions utilized were Building rapport and engagement Patient's Response to Intervention: Patient participated appropriately choosing a song and sharing with the group. Pt affect was bright and eye contact was good. Pt provided verbal support to peers and participated in group singing. Progress Towards Goal(s): Minimal Next Step: Continue with current services Patients Problems: Patient Active Problem List Diagnosis Mood disorder (HCC) Suicidal ideation Psychosis, paranoid (HCC) [facility] 94 Department: [facility] Dual Diagnosis Unit 6 Group Topic: Anxiety Group Date: 10/26/2024 Start Time: 1030 End Time: 111 Facilitators: MARIA ELENA Kc Number of Participants: 5 Group Name: Dual Diagnosis Treatment Modality: Cognitive Behavioral Therapy Purpose: increase insight or knowledge Summary: The group members each introduced themselves and shared one goal they were working on today. The group read a meditation from the Language of Letting Go book on internal and external stress. The group discussed ways to manage stress and anxiety through detachment of concerns that cannot be controlled or influenced and practicing self-care. The group reviewed a psychoeducation worksheet on anxiety disorders and gained insight into ways to reduce fear and anxiety when they become maladaptive or problematic. Name: Levy Todd Date of : 1995 MR: [id number] Mental Status Exam: Appearance: Appropriately dressed and groomed Mood: Anxious and Depressed Affect: Full Behavior: Cooperative Alertness: Alert Speech: Normal pace Cognition: Intact Thought Process: Goal-directed Thought Content: No evidence of psychosis/delusions Level/Quality of Participation: attentive Interactions with others: gave feedback Interventions utilized were Building rapport and engagement, Empathic listening, and Cognitive Behavioral Therapy (CBT) Patient's Response to Intervention: Pt came to group and was attentive. Pt shared that one goal he is working on is attending groups Progress Towards Goal(s): Minimal Additional Comments: N/A Next Step: Continue with current services Patients Problems: Patient Active Problem List Diagnosis Mood disorder (HCC) Suicidal ideation Psychosis, paranoid (HCC) [facility] Nursing Noteon 10-26-2024 Nursing Note Pt awake in day area when approached by this RN for assessment. Pt denies HI at this time. Pt reports thoughts of SI but contracts for safety on the unit. Pt reports AH/VH and states same as usual. Pt appeared euthymic and was cooperative with assessment. Pt reports having a good appetite. Pt is compliant with evening meds. No further concerns at this time. Normal [facility] Nursing Note Calm and cooperative . Admits to passive SI, but contracts for safety. Denies HI. States ongoing command auditory hallucinations (on self harm) and seeing demons. Denies pain. Up for breakfast. No distress. Found in dayroom area watching television and socializing with others. Denies needs. Full AM med compliance. Normal [facility] Progress Noteon 10-26-2024 Progress Note Spiritual Care Note [facility] [place] Patient Name: Levy Todd Service provided for: Patient Reason: Follow up 1:1 after group yesterday Length of visit: 15 Emotional disposition: anxious Spiritual concerns: Lack of peace Narrative: I see pt in the main area with his hands covering his eyes. He seems asleep. I wake pt up , and check in , he says he is in anxiety right now. Seems lost. I ask pt how can I support him ? He is not sure. I offer quieter place. Pt is up and I let him choose a quite spot. I ask him if he would like to breath together, he immediatly says yes and embracing the idea of breathing, without any guidance. After a short minute he opens his eyes and says I feel much better. We talk about the power of breathing as a tool for decreasing stress hormones and a source for grounding. I add supportive self touch in the chest area. I ask pt is there any other topic he would like to discus with me and he says no. Pt walks back to his seat and is proud to show me what he wrote on his notebook, and how he is trying to adapt the tools he is getting here. Interventions Identified, evaluated and reinforced appropriate coping strategies, Provided silent and supportive presence, and facilitated intentional breathing Patient Goals: Find Peace and acceptance and Increase self-love/ self-compassion and/ self-acceptance Follow up: MARVIN Delgado 10/26/24 [facility] Progress Note ---- -------- Attestation signed by Ana Sosa MD at 10/26/2024 1:12 PM The patient was seen and examined with the resident. The patient's history, presentation, and treatment were discussed with the psychiatric resident, Dr. Harley. I agree with Dr. Harley's below findings and plan. Additional Notes: Patient appears to be emphasizing at times his symptoms because he appears to be avoiding returning to his care home. We try and discuss with him some of his fears/hesitancies about returning. He does identify that he enjoys the social aspect of being on the unit. He is frequently noted to be out mingling with peers, smiling, laughing ,and joking by nursing staff. He states that he feels lonely at his care home and reports that he has wanted to get into counseling but has been unable to due to a variety of factors including scheduling issues. Plan is for discharge back to facility on Tuesday given it is the holiday weekend with limited outpatient support. Will have patient go to [facility] upon discharge for increased social support. ANA SOSA MD -------- Inpatient Psychiatric Progress Note 10/26/24 Levy Antunez Todd was seen in follow up for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 [Entitic mass] 26.6 pg Low 27.0-32.0 [facility] Comment on above: Performed By: #### L 501.9100, L500.2500, L505.5000, L100.0100 ####[facility] [address] [place], [address] MCHC (RBC) [Mass/Vol] 32.8 g/dL Normal 32-36 [facility] Comment on above: Performed By: #### L 501.9100, L500.2500, L505.5000, L100.0100 ####[facility] [address] [place], [address] MCV (RBC) [Entitic vol] 81.1 fL Normal 80-94 [facility] Comment on above: Performed By: #### L 501.9100, L500.2500, L505.5000, L100.0100 ####[facility] [address] [place], [address] Monocytes/100 WBC (Bld) 4.5 % Normal 0-10 [facility] Comment on above: Performed By: #### L 501.9100, L500.2500, L505.5000, L100.0100 ####[facility] [address] [place], [address] Neutrophils/100 WBC (Bld) 67.4 % Normal 47-70 [facility] Comment on above: Performed By: #### L 501.9100, L500.2500, L505.5000, L100.0100 ####[facility] [address] [place], [address] Nucleated RBC (Bld) [#/Vol] 0 10*3/uL Normal 0-5 [facility] Comment on above: Performed By: #### L 501.9100, L500.2500, L505.5000, L100.0100 ####[facility] [address] [place], [address] Platelet mean volume (Bld) [Entitic vol] 9.1 fL Normal 6.2-12.0 [facility] Comment on above: Performed By: #### L 501.9100, L500.2500, L505.5000, L100.0100 ####[facility] [address] [place], [address] Platelets (Bld) [#/Vol] 295 10*3/uL Normal 150-450 [facility] Comment on above: Performed By: #### L 501.9100, L500.2500, L505.5000, L100.0100 ####[facility] [address] [place], [address] RBC (Bld) [#/Vol] 4.55 10*6/uL Low 4.6-6.2 [facility] Comment on above: Performed By: #### L 501.9100, L500.2500, L505.5000, L100.0100 ####[facility] [address] [place], [address] RDW SD 42.5 fl Normal 35.1-43.9 [facility] Comment on above: Performed By: #### L 501.9100, L500.2500, L505.5000, L100.0100 ####[facility] [address] [place], [address] WBC (Bld) [#/Vol] 7.6 10*3/uL Normal 4.4-11.0 [facility] Comment on above: Performed By: #### L 501.9100, L500.2500, L505.5000, L100.0100 ####[facility] [address] [place], [address] Carbon dioxide, total [Moles /volume] in Central venous bloodOrdered By: Jasmin Husain on 10-22-2024 CO2 [Moles/Vol] 25.1 mmol/L 21.0-32.0 [facility] Chloride assayOrdered By: Christiano Husain on 10-22-2024 Chloride [Moles/Vol] 104 mmol/L 98-108 [facility] Emergency Department Summary on 10-22-2024 Emergency Department Summary [facility] Medical Records Department [address] [place] [address] Emergency Department Summary 10/22/24 MR#: [id number] Acct: [id number] Name: LEVY TODD Rep #: [id number] : 1995 29 From: Jasmin Husain MD PCP: Dr. Turner Bundy MD Status:REG ER Location: ED ADDENDUM by Dr. Galdino Valerio MD on 10/23/24 at 1313 Patient endorsed to me by the overnight physician, Dr. Jonnie Boland awaiting placement in psychiatric facility. Patient had stated that he has history of psychosis, and for weeks has been hearing voices and seeing things with command hallucinations telling him to kill himself by hanging or cutting his wrist. Reportedly has had previous suicide attempt. Patient has been accepted by [facility]. Disposition is transferred in stable condition. 10/23/24 1313 Cosigner Signature (if applicable): cc: Dr. Turner Bundy MD * Signed HPI HPI - Psych History of Present Illness Chief Complaint: Suicidal Narrative Narrative: Patient is a 29-year-old male presenting to the emergency department for suicidal ideation with plan. Patient has a past medical history of depression, asthma and psychosis. Patient was at her care home. His aide is at bedside. He states that for the past few weeks he has had auditory and visual hallucinations that are telling him to kill himself by either hanging himself or cutting his wrist. States that he told staff today which is why they then brought him in. He does have a history of a suicide attempt by hanging he reports. When asked what the auditory and visual hallucinations are he reports they are demonic. Denies any homicidal ideation or plan. Denies any delusions or paranoia. Denies any physical complaints. No recent medication changes. Reports that he takes all of his psychiatric medication as prescribed. [facility] Medical History Paranoia PTSD (post-traumatic stress disorder) Schizophrenia Bipolar 1 disorder Pneumonia Back pain Seizures Asthma Knee pain Psychiatric pseudoseizure Petit mal epilepsy ADHD (attention deficit hyperactivity disorder) Partial agenesis of corpus callosum Aspergers' syndrome Home Medications ???Medication ???Instructions ???Recorded ???Last Taken ???Type lamotrigine 200 mg tablet 200 mg PO BID 11/19/20 Unknown His tory paliperidone 6 mg tablet,extended 3 mg PO QHS 06/02/22 Unknown Hist ory release 24 hr albuterol sulfate 90 mcg/actuation 2 puff inhalation Q6H PRN Unknown History aerosol inhaler shortness of breath or wheezing lithium carbonate 300 mg capsule 300 mg PO QHS 04/17/23 Unknown His tory sertraline 100 mg tablet 100 mg PO Q24H 04/17/23 Unknown Hi story urea 40 % topical cream 1 applic topical DAILY 04/17/23 Un known History acetaminophen 500 mg tablet 1,000 mg PO Q6H PRN pain 10/22/24 Unknown History fluticasone propionate 50 spray intranasal 10/22/24 Unknown History mcg/actuation nasal spray,suspension lithium carbonate 600 mg capsule 600 mg PO 10/22/24 Unknown History loratadine 10 mg tablet 10 mg PO DAILY 10/22/24 Unknown Hi story Allergy/AdvReac Type Severity Reaction Status Date / Time bee venom protein (honey bee) Allergy Anaphylaxis Verified 10/22/24 18:04 carbamazepine (From Tegretol) Allergy Unknown Verified 10/22/24 18:04 divalproex sodium (From Allergy Other Verified 10/22/24 18:04 Depakote) methylphenidate (From Allergy Unknown Verified 10/22/24 18:04 Concerta) methylphenidate HCl (From Allergy Unknown Verified 10/22/24 18:04 Ritalin) phenobarbital Allergy Hives Verified 10/22/24 18:04 Family History Other Asthma Diabetes Hypertension Kidney disease Surgical History Hx of cholecystectomy Hx of tympanostomy tubes H/O hernia repair Social History household members: family housing: house Smoking Status: Never smoker alcohol intake: never EXAM Physical Exam Narrative Exam Narrative: Vital signs: Reviewed General: Alert and oriented. No acute distress HEENT: Head is normocephalic and atraumatic, sinuses nontender, pupils equal round and reactive. Nares are patent. Oropharynx and throat exams normal. Neck: Supple without lymphadenopathy nontender Cardiovascular: Regular rate and rhythm, no murmurs. No rubs or gallops. Normal S1 and S2 Respiratory: Clear to auscultation bilaterally. No wheezes, rales, rhonchi Abdominal: Soft and nontender. Normal bowel sounds. No guarding or rebound. Nonsurgical abdomen Extremities: No tenderness. No bruising. Normal range of motion. Normal sensation. Skin: No rash or redness. The res (more content not included)... Normal [facility] Eosinophil percentageOrdered By: ED PROVIDER on 10-22-2024 Eosinophils/100 WBC (Bld) 0.0 % 0-5 [facility] Erythrocyte distribution wid th ratioOrdered By: ED PROVIDER on 10-22-2024 Erythrocyte distribution width (RBC) [Ratio] 14.6 % 11.6-14.6 [facility] Erythrocyte distribution wid th standard deviationOrdered By: ED PROVIDER on 10-22-2024 Erythrocyte distribution width (RBC) [Ratio] 42.5 fl 35.1-43.9 [facility] Glomerular filtration rate ( GFR) estimation/1.73 sq m using serum, plasma, or whole bOrdered By: Jasmin Husain on 10-22-2024 GFR/1.73 sq M.predicted among non-blacks MDRD (S/P/Bld) [Vol rate/Area] 123 mL/min/{1.73_m2} >60 [facility] Comment on above: mL/min/1.73m2 CKD-EP I Creatinine Equation (2020) Hematocrit Auto (Bld) [Volum e fraction]Ordered By: ED PROVIDER on 10-22-2024 Hematocrit (Bld) [Volume fraction] 36.9 % Low 40-54 [facility] Hemoglobin measurementOrdere d By: ED PROVIDER on 10-22-2024 Hemoglobin (Bld) [Mass/Vol] 12.1 g/dL Low 13.0-16.5 [facility] Immature granulocytes/100 WB C Auto (Bld)Ordered By: ED PROVIDER on 10-22-2024 Immature granulocytes/100 WBC (Bld) 0.300 % 0.0-0.9 [facility] Comment on above: IG% - Immature Granu locytes (promyelocytes, myelocytes and metamyelocytes) > 1% indicates that a LEFT SHIFT is Present. MCV (mean corpuscular volume ) determinationOrdered By: ED PROVIDER on 10-22-2024 MCV (RBC) [Entitic vol] 81.1 fL 80-94 [facility] Mean corpuscular hemoglobin (MCH) determinationOrdered By: ED PROVIDER on 10-22-2024 MCH (RBC) [Entitic mass] 26.6 pg Low 27.0-32.0 [facility] Mean corpuscular hemoglobin concentration (MCHC) determinationOrdered By: ED PROVIDER on 10-22-2024 MCHC (RBC) [Mass/Vol] 32.8 g/dL 32-36 [facility] Mean platelet volume determi nationOrdered By: ED PROVIDER on 10-22-2024 Platelet mean volume (Bld) [Entitic vol] 9.1 fL 6.2-12.0 [facility] Monocyte percentageOrdered B y: ED PROVIDER on 10-22-2024 Monocytes/100 WBC (Bld) 4.5 % 0-10 [facility] Neutrophil percentageOrdered By: ED PROVIDER on 10-22-2024 Neutrophils/100 WBC (Bld) 67.4 % 47-70 [facility] No Panel InformationOrdered By: Jamsin Husain on 10-22-2024 Urine Buprenorphine Qualitative Negative < 200 ng/mL [facility] Urine Oxycodone Screen Negative < 100 ng/mL [facility] Nucleated red blood cell per centageOrdered By: ED PROVIDER on 10-22-2024 Nucleated RBC/100 WBC (Bld) [Ratio] 0 % 0-5 [facility] Platelet countOrdered By: ED PROVIDER on 10-22-2024 Platelets (Bld) [#/Vol] 295 10*3/uL 150-450 [facility] Potassium measurement (mass/ volume)Ordered By: Jasmin Husain on 10-22-2024 Potassium (Unsp spec) [Mass/Vol] 3.8 mmol/L 3.3-5.1 [facility] Quantitative urine opiates m easurementOrdered By: Jasmin Husain on 10-22-2024 Opiates Ql (U) Negative < 300 ng/mL [facility] RBC Auto (Bld) [#/Vol]Ordere d By: ED PROVIDER on 10-22-2024 RBC (Bld) [#/Vol] 4.55 10*6/uL Low 4.6-6.2 [facility] Screening urine fentanyl jori surementOrdered By: Jasmin Husain on 10-22-2024 fentaNYL Screen Ql (U) Negative <5 ng/mL [facility] Comment on above: CONFIRMATORY TESTING FOR ALL POSITIVE URINE DRUG SCREENRESULTS WILL ONLY BE SENT OUT UPON PHYSICIAN ORDER. [place] [facility] Urine Drug Screen methods provide only preliminaryanalytical test results. A more specific alternate chemicalmethod must be used in order to obtain a confirmedanalytical result. Gas chromatography/mass spectrometery(GC/MS) is the preferred confirmatory method. Clinicalconsideration and professional judgement should be appliedto any drug of abuse test result, particularly whenpreliminary positive results are used. Urine TCA testing must be ordered separately. Use test mnemonic: UTCA Serum creatinine measurement (mass/volume)Ordered By: Jasmin Husain on 10-22-2024 Creatinine [Mass/Vol] 0.77 mg/dL 0.70-1.20 [facility] Serum glucose measurement (m ass/volume)Ordered By: Jasmin Husain on 10-22-2024 Glucose [Mass/Vol] 142 mg/dL High 70-99 [facility] Serum or plasma calcium angel urement (mass/volume)Ordered By: Jasmin Husain on 10-22-2024 Calcium [Mass/Vol] 9.5 mg/dL 7.6-11.0 [facility] Serum or plasma ethanol angel urement (mass/volume)Ordered By: Jasmin Husain on 10-22-2024 Ethanol [Mass/Vol] mg/dL <10.1 [facility] Comment on above: This test is for med ical purposes only. The legal definition of intoxication varies according to local law. Serum or plasma urea nitroge n measurement (mass/volume)Ordered By: Jasmin Husain on 10-22-2024 Urea nitrogen [Mass/Vol] 9 mg/dL 4-19 [facility] Sodium levelOrdered By: Alex Husain on 10-22-2024 Sodium [Moles/Vol] 140 mmol/L 133-145 [facility] Urine Drug Screen (VISTA)on 10-22-2024 AMPHETAMINES Negative Normal <1000 ng/mL [facility] Comment on above: Performed By: #### L 501.9100, L500.2500, L505.5000, L100.0100 ####[facility] [address] [place] [address] BARBITIURATES Negative Normal < 200 ng/mL [facility] Comment on above: Performed By: #### L 501.9100, L500.2500, L505.5000, L100.0100 ####[facility] [address] [place], [address] BENZODIAZIPINE Negative Normal < 200 ng/mL [facility] Comment on above: Performed By: #### L 501.9100, L500.2500, L505.5000, L100.0100 ####[facility] [address] [place], [address] BUP Ur Drug Scr Negative Normal < 200 ng/mL [facility] Comment on above: Performed By: #### L 501.9100, L500.2500, L505.5000, L100.0100 ####[facility] [address] [place], [address] COCAINE Negative Normal < 300 ng/mL [facility] Comment on above: Performed By: #### L 501.9100, L500.2500, L505.5000, L100.0100 ####[facility] [address] [place], [address] Fentanyl Negative Normal <5 ng/mL [facility] Comment on above: Result Comment: CONF IRMATORY TESTING FOR ALL POSITIVE URINE DRUG SCREEN RESULTS WILL ONLY BE SENT OUT UPON PHYSICIAN ORDER. [place] [facility] Urine Drug Screen methods provide only preliminary analytical test results. A more specific alternate chemical method must be used in order to obtain a confirmed analytical result. Gas chromatography/mass spectrometery (GC/MS) is the preferred confirmatory method. Clinical consideration and professional judgement should be applied to any drug of abuse test result, particularly when preliminary positive results are used. Urine TCA testing must be ordered separately. Use test mnemonic: UTCA Performed By: #### L 501.9100, L500.2500, L505.5000, L100.0100 ####[facility] [address] [place], [address] METHADONE Negative Normal < 300 ng/mL [facility] Comment on above: Performed By: #### L 501.9100, L500.2500, L505.5000, L100.0100 ####[facility] [address] [place], [address] OPIATES Negative Normal < 300 ng/mL [facility] Comment on above: Performed By: #### L 501.9100, L500.2500, L505.5000, L100.0100 ####[facility] [address] [place], [address] OXYCODONE Negative Normal < 100 ng/mL [facility] Comment on above: Performed By: #### L 501.9100, L500.2500, L505.5000, L100.0100 ####[facility] [address] [place], [address] PCP Negative Normal < 25 ng/mL [facility] Comment on above: Performed By: #### L 501.9100, L500.2500, L505.5000, L100.0100 ####[facility] [address] [place], [place], [address] THC Negative Normal < 50 ng/mL [facility] Comment on above: Performed By: #### L 501.9100, L500.2500, L505.5000, L100.0100 ####[facility] [address] [place], [address] Urine benzodiazepine levelOr dered By: Jasmin Husain on 10-22-2024 Benzodiazepines Ql (U) Negative < 200 ng/mL [facility] Urine cocaine levelOrdered B y: Jasmin Husain on 10-22-2024 Cocaine Ql (U) Negative < 300 ng/mL [facility] Urine oegii-0-ccsukqajeykavd abinol (THC) measurementOrdered By: Jasmin Husain on 10-22-2024 Cannabinoids Screen Ql (U) Negative < 50 ng/mL [facility] Urine phencyclidine (PCP) de tectionOrdered By: Jasmin Husain on 10-22-2024 Phencyclidine Ql (U) Negative < 25 ng/mL [facility] White blood cell (WBC) count Ordered By: ED PROVIDER on 10-22-2024 WBC (Bld) [#/Vol] 7.6 10*3/uL 4.4-11.0 [facility] CNOVon 09-12-2024 CNOV Office Visit (WOAUDREY) -------- LEVY TODD ([id number]) 1995 M Date Time Provider Department 09/12/24 3:15 PM JATIN HERRERA During your visit today, we recorded the following information about you: Temperature Pulse Respiration Blood pressure 97.7 degrees 90/minute 16/minute 122/80 Weight 129.7 kg Jatin Herrera MD 09/12/2024 3:20 PM Signed [facility] Subjective Levy Todd is a 28 year old male. Patient presents with: Cough: Cough and ST x 3 days Patient presents with 3 days of illness accompanied by his care home caregiver. He has had sore throat, fatigue, [...] from or confirmed by: other (see comments) ([facility] caregiver). Differential Diagnoses - Viral URI with [...] Diagnosis:Sore throat [J02.9] Order(s):STREP A MOLECULAR (POC) [3093351] Order #: [id number]. 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 Normal [facility] CNOVon 06-25-2024 CNOV Office Visit (FAMPWS ) -------- LEVY TODD ([id number]) 1995 M Date Time Provider Department 06/25/24 10:20 AM FRANCY MITTAL During your visit today, we recorded the following information about you: Pulse Respiration Blood pressure 74/minute 16/minute 134/72 Francy Mittal APRN.[facility] 06/25/2024 10:54 AM Signed Start taking Claritin once a day as directed to help with allergy symptoms. Use Flonase nose spray with 2 sprays in each nostril once a day. A strep swab test was performed in the office; a COVID/flu/RSV swab was also done, If your symptoms worsen or you do not start feeling better, please call our office. Francy Mittal APRN.CNP 06/25/2024 7:40 PM Signed This is a [...] with caregiver, Dianna. Pt lives in a care home. Caregiver reports that she feels this is [...] well nour (more content not included)... Normal [facility] COVID & INFLUENZA A/B & RSV PCR, ROUTINEon 06-25-2024 FLUAV RNA RELL+probe Ql (Unsp spec) Not detected Not Detected [facility] FLUBV RNA RELL+probe Ql (Unsp spec) Not detected Not Detected [facility] Interpretation and review of laboratory results Normal [facility] RSV A RNA RELL+probe Ql (Unsp spec) Not detected Not Detected [facility] SARS-CoV-2 (COVID-19) RNA RELL+probe Ql (Unsp spec) Not detected See comment [facility] Reference Range (the expected result in uninfected individuals): Not detected [facility] STREP A MOLECULAR (POC)on Procedural Control Valid [facility] Strep A (POCT) Negative Negative [facility] PROLACTIN 4465on 04-14-2024 PROLACTIN 28.1 ng/mL Normal 3.6-31.5 [facility] Comment on above: Result Comment: Perf ormed at: - [facility] [address] [id number] Talkback Host: Roscoe Young PhD, Phone: [phone] Performed By: #### L 501.9060, L100.0100, L3100.5400, L501.9985, L500.4050, L501.9520, L506.1000 ####[facility] [id number] [place], [address] CBC W/Diff, Automatedon -03 03-2024 Absolute Lymph 1.66 X10 3/uL Normal 0.83-4.51 [facility] Comment on above: Performed By: #### L 501.9060, L100.0100, L3100.5400, L501.9985, L500.4050, L501.9520, L506.1000 #### [facility] [address] [place], [address] Absolute Neut 5.1 X10 3/uL Normal 2.0-7.7 [facility] Comment on above: Performed By: #### L 501.9060, L100.0100, L3100.5400, L501.9985, L500.4050, L501.9520, L506.1000 #### [facility] [address] [place], [address] Basophils/100 WBC (Bld) 0.1 % Normal 0-1 [facility] Comment on above: Performed By: #### L 501.9060, L100.0100, L3100.5400, L501.9985, L500.4050, L501.9520, L506.1000 #### [facility] [address] [place], [address] Eosinophils/100 WBC (Bld) 0.0 % Normal 0-5 [facility] Comment on above: Performed By: #### L 501.9060, L100.0100, L3100.5400, L501.9985, L500.4050, L501.9520, L506.1000 #### [facility] [address] [place], [address] Erythrocyte distribution width (RBC) [Ratio] 14.9 % High 11.6-14.6 [facility] Comment on above: Performed By: #### L 501.9060, L100.0100, L3100.5400, L501.9985, L500.4050, L501.9520, L506.1000 #### [facility] [address] [facility] [place] [place], [address] Hematocrit (Bld) [Volume fraction] 40.0 % Normal 40-54 [facility] Comment on above: Performed By: #### L 501.9060, L100.0100, L3100.5400, L501.9985, L500.4050, L501.9520, L506.1000 #### [facility] [address] [facility] [place] [place], [address] Hemoglobin (Bld) [Mass/Vol] 12.9 g/dL Low 13.0-16.5 [facility] Comment on above: Performed By: #### L 501.9060, L100.0100, L3100.5400, L501.9985, L500.4050, L501.9520, L506.1000 #### [facility] [address] [facility] [place] [place], [address] IG% 0.400 Normal 0.0-0.9 [facility] Comment on above: Result Comment: IG% - Immature Granulocytes (promyelocytes, myelocytes and metamyelocytes) > 1% indicates that a LEFT SHIFT is Present. Performed By: #### L 501.9060, L100.0100, L3100.5400, L501.9985, L500.4050, L501.9520, L506.1000 #### [facility] [address] [place], [address] Lymphocytes/100 WBC (Bld) 23.0 % Normal 19-41 [facility] Comment on above: Performed By: #### L 501.9060, L100.0100, L3100.5400, L501.9985, L500.4050, L501.9520, L506.1000 #### [facility] [address] [place], [address] MCH (RBC) [Entitic mass] 25.5 pg Low 27.0-32.0 [facility] Comment on above: Performed By: #### L 501.9060, L100.0100, L3100.5400, L501.9985, L500.4050, L501.9520, L506.1000 #### [facility] [address] [place], [address] MCHC (RBC) [Mass/Vol] 32.3 g/dL Normal 32-36 [facility] Comment on above: Performed By: #### L 501.9060, L100.0100, L3100.5400, L501.9985, L500.4050, L501.9520, L506.1000 #### [facility] [address] [place], [address] MCV (RBC) [Entitic vol] 79.1 fL Low 80-94 [facility] Comment on above: Performed By: #### L 501.9060, L100.0100, L3100.5400, L501.9985, L500.4050, L501.9520, L506.1000 #### [facility] [address] [place], [address] Monocytes/100 WBC (Bld) 6.1 % Normal 0-10 [facility] Comment on above: Performed By: #### L 501.9060, L100.0100, L3100.5400, L501.9985, L500.4050, L501.9520, L506.1000 #### [facility] [address] [place], [address] Neutrophils/100 WBC (Bld) 70.4 % High 47-70 [facility] Comment on above: Performed By: #### L 501.9060, L100.0100, L3100.5400, L501.9985, L500.4050, L501.9520, L506.1000 #### [facility] [address] [place], [address] Nucleated RBC (Bld) [#/Vol] 0 10*3/uL Normal 0-5 [facility] Comment on above: Performed By: #### L 501.9060, L100.0100, L3100.5400, L501.9985, L500.4050, L501.9520, L506.1000 #### [facility] [address] [place], [address] Platelet mean volume (Bld) [Entitic vol] 8.9 fL Normal 6.2-12.0 [facility] Comment on above: Performed By: #### L 501.9060, L100.0100, L3100.5400, L501.9985, L500.4050, L501.9520, L506.1000 #### [facility] [address] [place], [address] Platelets (Bld) [#/Vol] 349 10*3/uL Normal 150-450 [facility] Comment on above: Performed By: #### L 501.9060, L100.0100, L3100.5400, L501.9985, L500.4050, L501.9520, L506.1000 #### [facility] [address] [place], [address] RBC (Bld) [#/Vol] 5.06 10*6/uL Normal 4.6-6.2 [facility] Comment on above: Performed By: #### L 501.9060, L100.0100, L3100.5400, L501.9985, L500.4050, L501.9520, L506.1000 #### [facility] [address] [place], [address] RDW SD 42.6 fl Normal 35.1-43.9 [facility] Comment on above: Performed By: #### L 501.9060, L100.0100, L3100.5400, L501.9985, L500.4050, L501.9520, L506.1000 #### [facility] [address] [place], [address] WBC (Bld) [#/Vol] 7.2 10*3/uL Normal 4.4-11.0 [facility] Comment on above: Performed By: #### L 501.9060, L100.0100, L3100.5400, L501.9985, L500.4050, L501.9520, L506.1000 #### [facility] [address] [place], [address] Comprehensive Metabolic Prof ilon 04-13-2024 Albumin [Mass/Vol] 3.8 g/dL Normal 3.2-5.0 [facility] Comment on above: Performed By: #### L 501.9060, L100.0100, L3100.5400, L501.9985, L500.4050, L501.9520, L506.1000 ####[facility] [address] [place], [address] Albumin/Globulin [Mass ratio] 1.1 {ratio} Normal 0.9-2.4 [facility] Comment on above: Performed By: #### L 501.9060, L100.0100, L3100.5400, L501.9985, L500.4050, L501.9520, L506.1000 ####[facility] [address] [place], [address] ALK P 103 U/L Normal 45-117 [facility] Comment on above: Performed By: #### L 501.9060, L100.0100, L3100.5400, L501.9985, L500.4050, L501.9520, L506.1000 ####[facility] [address] [place], [address] ALT [Catalytic activity/Vol] 21 U/L Normal 16-61 [facility] Comment on above: Performed By: #### L 501.9060, L100.0100, L3100.5400, L501.9985, L500.4050, L501.9520, L506.1000 ####[facility] [address] [place], [address] AST [Catalytic activity/Vol] 12 U/L Low 15-37 [facility] Comment on above: Performed By: #### L 501.9060, L100.0100, L3100.5400, L501.9985, L500.4050, L501.9520, L506.1000 ####[facility] [address] [place], [address] Bilirubin [Mass/Vol] 0.30 mg/dL Normal 0.20-1.00 [facility] Comment on above: Result Comment: For patients on eltrombopag therapy, use of Dimension [place] TBIL is not recommended. Performed By: #### L 501.9060, L100.0100, L3100.5400, L501.9985, L500.4050, L501.9520, L506.1000 ####[facility] [address] [place], [address] BUN/CRE 11.4 RATIO Normal 10-20 [facility] Comment on above: Performed By: #### L 501.9060, L100.0100, L3100.5400, L501.9985, L500.4050, L501.9520, L506.1000 ####[facility] [address] [place], [address] CA,Total 9.3 mg/dL Normal 8.5-10.1 [facility] Comment on above: Performed By: #### L 501.9060, L100.0100, L3100.5400, L501.9985, L500.4050, L501.9520, L506.1000 ####[facility] [address] [place], [address] Chloride [Moles/Vol] 107 mmol/L Normal 98-107 [facility] Comment on above: Performed By: #### L 501.9060, L100.0100, L3100.5400, L501.9985, L500.4050, L501.9520, L506.1000 ####[facility] [address] [place], [address] CO2 [Moles/Vol] 26.0 mmol/L Normal 21.0-32.0 [facility] Comment on above: Performed By: #### L 501.9060, L100.0100, L3100.5400, L501.9985, L500.4050, L501.9520, L506.1000 ####[facility] [address] [place], [address] Creatinine [Mass/Vol] 0.70 mg/dL Normal 0.70-1.30 [facility] Comment on above: Result Comment: The validity of the calculated GFR GFRAA in patients over 70 years has not been determined. Clinical correlation is essential. Performed By: #### L 501.9060, L100.0100, L3100.5400, L501.9985, L500.4050, L501.9520, L506.1000 ####[facility] [address] [place], [address] EST GFR - AA 169 mL/min Normal >60 [facility] Comment on above: Result Comment: Afri can Nigerien GFR Calc Performed By: #### L 501.9060, L100.0100, L3100.5400, L501.9985, L500.4050, L501.9520, L506.1000 ####[facility] [address] [place], [address] GAP 5 Normal 5-15 [facility] Comment on above: Performed By: #### L 501.9060, L100.0100, L3100.5400, L501.9985, L500.4050, L501.9520, L506.1000 ####[facility] [address] [place], [address] GFR/1.73 sq M.predicted among non-blacks MDRD (S/P/Bld) [Vol rate/Area] 140 mL/min/{1.73_m2} Normal >60 [facility] Comment on above: Result Comment: Non- GFR Calc Performed By: #### L 501.9060, L100.0100, L3100.5400, L501.9985, L500.4050, L501.9520, L506.1000 ####[facility] [address] [place], [address] Globulin (S) [Mass/Vol] 3.6 g/dL Normal 2.2-4.2 [facility] Comment on above: Performed By: #### L 501.9060, L100.0100, L3100.5400, L501.9985, L500.4050, L501.9520, L506.1000 ####[facility] [address] [place], [address] Glucose [Mass/Vol] 92 mg/dL Normal 74-106 [facility] Comment on above: Performed By: #### L 501.9060, L100.0100, L3100.5400, L501.9985, L500.4050, L501.9520, L506.1000 ####[facility] [address] [place], [address] Potassium [Moles/Vol] 4.0 mmol/L Normal 3.5-5.1 [facility] Comment on above: Performed By: #### L 501.9060, L100.0100, L3100.5400, L501.9985, L500.4050, L501.9520, L506.1000 ####[facility] [address] [place], [address] Sodium [Moles/Vol] 138 mmol/L Normal 136-145 [facility] Comment on above: Performed By: #### L 501.9060, L100.0100, L3100.5400, L501.9985, L500.4050, L501.9520, L506.1000 ####[facility] [address] [place], [address] T PROT 7.4 g/dL Normal 6.4-8.2 [facility] Comment on above: Performed By: #### L 501.9060, L100.0100, L3100.5400, L501.9985, L500.4050, L501.9520, L506.1000 ####[facility] [address] [place], [address] Urea nitrogen [Mass/Vol] 8 mg/dL Normal 7-18 [facility] Comment on above: Performed By: #### L 501.9060, L100.0100, L3100.5400, L501.9985, L500.4050, L501.9520, L506.1000 ####[facility] [address] [place], [address] Hemoglobin A1con 04-13-2024 HbA1c (Bld) [Mass fraction] 5.6 % Normal 3.8-5.6 [facility] Comment on above: Result Comment: Norm al < 5.7 % Prediabetic 5.7 - 6.4 % Diabetic >or= 6.5 % Please note range changes. Performed By: #### L 501.9060, L100.0100, L3100.5400, L501.9985, L500.4050, L501.9520, L506.1000 ####[facility] [address] [place], [address] Lithiumon 04-13-2024 LI 0.30 mmol/L Low 0.60-1.20 [facility] Comment on above: Order Comment: 599 Performed By: #### L 501.9060, L100.0100, L3100.5400, L501.9985, L500.4050, L501.9520, L506.1000 #### [facility] [address] [place], [address] Thyroid Stim Hormone (TSH)on 04-13-2024 TSH 0.809 uIU/mL Normal 0.358-3.740 [facility] Comment on above: Performed By: #### L 501.9060, L100.0100, L3100.5400, L501.9985, L500.4050, L501.9520, L506.1000 ####[facility] [address] [place], [place], [address] Vitamin D,25 Hydroxyon 04-13 Vitamin D 25-OH 7.8 ng/mL Normal [facility] Comment on above: Result Comment: Rebeca min D 25(OH) Status Range Deficiency <20 ng/mL (50nmol/L) Insufficiency 20 - 30 ng/mL (50 - 75 nmol/L) Sufficiency 30 - 100 ng/mL (75 - 250 nmol/L) Toxicity >100 ng/mL (>250 nmol/L) Performed By: #### L 501.9060, L100.0100, L3100.5400, L501.9985, L500.4050, L501.9520, L506.1000 #### [facility] [address] [place], [address] CNOVon 04-10-2024 CNOV Office Visit (FAMPWS ) -------- LEVY TODD ([id number]) 1995 M Date Time Provider Department 04/10/24 [...] appearance: Well (more content not included)... Normal [facility] CNOVon 02-27-2024 CNOV Office Visit (FAMPWS ) -------- LEVY TODD ([id number]) 1995 M Date Time Provider Department 02/27/24 11:00 AM [facility] During your visit today, we recorded the following information about you: Temperature Pulse Blood pressure Weight 98.2 degrees 85/minute 110/72 142.2 kg Height 1.778 m Turner Bundy MD 02/27/2024 11:39 AM Signed Patient presents with: Hospital F/U HPI: Patient presents today for office visit for hospital follow up. Here today with house wirer helper Dianna [place]. HOSPITAL/ER FOLLOW UP: Reason for visit: Hearing voices, hallucinations and suicidal ideation after receiving Invega injection. Which facility: Started at [facility] and transferred to [facility]. Date of visit: 01/03/24 to 01/13/24 Diagnosis: [...] of kidney (more content not included)... Normal [facility] ZAOVarnel 01-18-2024 CNOV Office Visit (UCWSTR ) -------- LEVY TODD ([id number]) 1995 M Date Time Provider Department 01/18/24 8:45 AM JINA GAYLE WSTR During your visit today, we recorded the following information about you: Temperature Pulse Respiration Blood pressure 98.2 degrees 104/minute 16/minute 118/70 Weight 148.5 kg Jina Gayle APRN.CNP 01/18/2024 10:23 AM Signed This note was created using MyLiferiter. Subjective Levy Todd is a 28 year [...] anton per patient Patient is accompanied by house wirer helperDianna The history is provided by the patient and a caregiver. No foreign languages department chair was used. Sore Throat This is a [...] 100 mg (more content not included)... Normal [facility] COVID AND INFLUENZA A/B AND RSV PCR, ROUTINEon 01-18-2024 SARS-CoV-2 (COVID-19) RNA RELL+probe Ql (Unsp spec) SARS-COV-2 (AGENT OF COVID-19) RNA: Not detected INFLUENZA A RNA: Not detected INFLUENZA B RNA: Not detected RESPIRATORY SYNCYTIAL VIRUS (RSV) RNA: Not detected Normal [facility] Comment on above: Performed By: #### C VFLRS #### [facility] CLIA [id number] [address] [place] [address] [place] STREP A MOLECULAR (POC)on Procedural Control Valid [facility] Strep A (POCT) Negative Negative [facility] XR CHEST 2V FRONTAL/LATon XR [...] tissues: Unremarkable. IMPRESSION: No acute radiographic abnormality. Tool Maker: [email or web address] Transcribe Date/Time: Jan 18 2024 9:37A Dictated by : MARICHUY YODER MD This examination was interpreted and the report reviewed and electronically signed by: MARICHUY YODER MD on Jan 18 2024 9:38AM EST [id number] Normal [facility] XR Chest PA and Lateralon IMPRESSION: No acute radiographic abnormality. Tool Maker: [email or web address] Transcribe Date/Time: Jan 18 2024 9:37A Dictated [...] soft tissues: Unremarkable. DIVISION OF RADIOLOGY Provider, [facility] - 01/18/2024 * * *Final Report* * [...] Unremarkable. IMPRESSION IMPRESSION: No acute radiographic abnormality. Tool Maker: [email or web address] Transcribe Date/Time: Jan 18 2024 9:37A Dictated by : MARICHUY YODER MD This examination was interpreted and the report reviewed and electronically signed by: MARICHUY YODER MD on Jan 18 2024 9:38AM EST [facility] Radiology Study observation (narrative) Nelida rudd [facility] XR Chest PA and LateralOrder ed By: [facility] Provider on 01-18-2024 [facility] LITHIUM LEVELon 01-12-2024 [place] [Moles/Vol] 0.1 mmol/L Low 0.6-1.2 [facility] Comment on above: Performed By: #### 4 6092 #### [facility] [address] [address] [id number] [address] HEAD OR BRAIN WITHOUT CON TRASTon [...] evaluation with MRI with and without contrast. LYL/florence Workstation ID: [id number] Dictated by: VICTORIANO TELLES on TueJan 09, 2024 12:55:45 PM EST Transcribed by: BRETT LAW on TueJan 09, 2024 1:04:19 PM EST Finalized by: VICTORIANO TELLES on TueJan 09, 2024 6:50:21 PM EST Normal [facility] Comment on above: Order Comment: Injur y/Trauma [...] 08, 2024 8:30:43 PM EST Transcribed by: JENNIEFR BURNS on [place] Jan 08, 2024 8:30:43 PM EST Finalized by: JENNIFER BURNS on [place] Jan 08, 2024 8:30:43 PM EST Normal [facility] Comment on above: Order Comment: Injur y/Trauma [...] on 01/04/24 but am cosigning due to [facility] policy. An attending physician was available during the BINTA evaluation. Ольга Smith MD 01/17/24 -------- [facility] CONSULTATION NOTE Patient Name: Levy Todd : 1995 MR #: [id number] Admit Date: [id number] Physicians: Turner Bundy MD (Family); No ref. provider found (Referring) Levy Todd is a 28 y.o. male patient of Turner Bundy MD with history of GERD, asthma, depression who has been admitted to [facility] inpatient behavioral unit 01/04/2024. [facility] has been consulted by Boy Rock MD for medical management. Suicidal ideation Depression Management per primary Asthma PRN albuterol GERD PPI Foot pain PRN tylenol Urea cream Voltaren gel PRN Medication Reconciliation: Verified Code Status: Full Code - Unverified Thank you for the consult. We will sign off at this time. Quality Measures DVT Prophylaxis: Ambulation Grant Catheter: Absent Chief Complaint [facility] consulted by Boy Rock MD for medical management History of Present Illness Levy Todd is a 28 y.o. male patient of Turner Bundy MD with history of GERD, asthma, depression who has been admitted to [facility] inpatient behavioral unit 01/04/2024. [facility] has been consulted by Boy Rcok MD for medical management. Patient confirms past [...] movement disorder noted Cranial Nerves: II: visual heck full. III, IV, : extraocular range intact. [...] AM Transcriptions 01/05/24 10:46 AM AUTHENTICATED BY ОЛЬГА SMITH, ON 01/17/2024 21:16:29 Normal [facility] BASIC METABOLIC PANELon 11-0 Anion gap [Moles/Vol] 17 mmol/L Normal 10-20 [facility] Comment on above: Order Comment: [facility] has implemented the eGFR calculation approach that does not have a coefficient for race that conforms to the NKF-ASN Task Force Recommendations. Performed By: #### 4 6124 #### LAB [address] [place], [place] [address] Woo Sauer M.D. [id number] Calcium [Mass/Vol] 9.3 mg/dL Normal 8.4-10.2 [facility] Comment on above: Order Comment: [facility] has implemented the eGFR calculation approach that does not have a coefficient for race that conforms to the NKF-ASN Task Force Recommendations. Performed By: #### 4 6124 #### LAB [address] [place], [place] [address] Woo Sauer M.D. [id number] Chloride [Moles/Vol] 105 mmol/L Normal 98-108 [facility] Comment on above: Order Comment: [facility] has implemented the eGFR calculation approach that does not have a coefficient for race that conforms to the NKF-ASN Task Force Recommendations. Performed By: #### 4 6124 #### LAB [address] [address] W[address] Sauer M.D. [id number] Creatinine [Mass/Vol] 0.74 mg/dL Normal 0.50-1.30 [facility] Comment on above: Order Comment: [facility] has implemented the eGFR calculation approach that does not have a coefficient for race that conforms to the NKF-ASN Task Force Recommendations. Performed By: #### 4 6124 #### LAB [address] [address] W[address] Sauer M.D. [id number] EGFR 125 mL/min/1.73 m2 Normal >=60 [facility] Comment on above: Order Comment: [facility] has implemented the eGFR calculation approach that does not have a coefficient for race that conforms to the NKF-ASN Task Force Recommendations. Result Comment: Daniela mated GFR was calculated using the 2020 CKD-EPI creatinine equation. Performed By: #### 4 6124 #### LAB [address] [address] W[address] Sauer M.D. [id number] Glucose [Mass/Vol] 99 mg/dL Normal 65-99 [facility] Comment on above: Order Comment: [facility] has implemented the eGFR calculation approach that does not have a coefficient for race that conforms to the NKF-ASN Task Force Recommendations. Performed By: #### 4 6124 #### LAB [address] [address] W[address] Sauer M.D. [id number] HCO3 (Bld) [Moles/Vol] 23 mmol/L Normal 21-32 [facility] Comment on above: Order Comment: [facility] has implemented the eGFR calculation approach that does not have a coefficient for race that conforms to the NKF-ASN Task Force Recommendations. Performed By: #### 4 6124 #### LAB [address] [address] W[address] Sauer M.D. [id number] Potassium [Moles/Vol] 3.9 mmol/L Normal 3.5-5.1 [facility] Comment on above: Order Comment: [facility] has implemented the eGFR calculation approach that does not have a coefficient for race that conforms to the NKF-ASN Task Force Recommendations. Performed By: #### 4 6124 #### LAB [address] [address] Woo Sauer M.D. [id number] Sodium [Moles/Vol] 141 mmol/L Normal 135-145 [facility] Comment on above: Order Comment: [facility] has implemented the eGFR calculation approach that does not have a coefficient for race that conforms to the NKF-ASN Task Force Recommendations. Performed By: #### 4 6124 #### LAB [address] [address] Woo Sauer M.D. [id number] Urea nitrogen [Mass/Vol] 12 mg/dL Normal 8-25 [facility] Comment on above: Order Comment: [facility] has implemented the eGFR calculation approach that does not have a coefficient for race that conforms to the NKF-ASN Task Force Recommendations. Performed By: #### 4 6124 #### LAB [address] [address] Woo Sauer M.D. [id number] Urea nitrogen/Creatinine [Mass ratio] 16.2 mg/mg Normal 10.0-20.0 [facility] Comment on above: Order Comment: [facility] has implemented the eGFR calculation approach that does not have a coefficient for race that conforms to the NKF-ASN Task Force Recommendations. Performed By: #### 4 6124 ####[facility] [address] [address] Woo Sauer M.D. [id number] CBC WITH AUTO DIFFERENTIALon 01-04-2024 AUTO NRBC 0.0 % Normal [facility] Comment on above: Performed By: #### L [id number] #### [facility] [address] [address] Woo Sauer M.D. [id number] AUTO NRBC ABS COUNT 0.00 K/mcL Normal 0.00-0.00 [facility] Comment on above: Performed By: #### L [id number] #### LAB [address] [address] Woo Sauer M.D. [id number] BASOPHILS ABSOLUTE COUNT 0.00 K/mcL Normal 0.00-0.30 [facility] Comment on above: Performed By: #### L [id number] #### LAB [address] [address] Woo Sauer M.D. [id number] Basophils/100 WBC (Bld) 0.0 % Normal [facility] Comment on above: Performed By: #### L [id number] #### LAB [address] [address] Woo Sauer M.D. [id number] Eosinophils (Bld) [#/Vol] 0.00 10*3/uL Normal 0.00-0.50 [facility] Comment on above: Performed By: #### L [id number] #### LAB [address] [address] Woo Sauer M.D. [id number] Eosinophils/100 WBC (Bld) 0.0 % Normal [facility] Comment on above: Performed By: #### L [id number] #### LAB [address] [address] Woo Sauer M.D. [id number] Erythrocyte distribution width (RBC) [Ratio] 14.6 % Normal 11.6-14.8 [facility] Comment on above: Performed By: #### L [id number] #### LAB [address] [address] Woo Sauer M.D. [id number] Hematocrit (Bld) [Volume fraction] 39.3 % Low 41.0-53.0 [facility] Comment on above: Performed By: #### L [id number] #### LAB [address] [address] Woo Sauer M.D. [id number] Hemoglobin (Bld) [Mass/Vol] 12.6 g/dL Low 13.5-17.5 [facility] Comment on above: Performed By: #### L [id number] #### LAB [address] [address] Woo Sauer M.D. [id number] IG ABSOLUTE 0.02 K/mcL Normal 0.00-0.30 [facility] Comment on above: Performed By: #### L [id number] #### LAB [address] [address] Woo Sauer M.D. [id number] IG PERCENT 0.30 % Normal [facility] Comment on above: Result Comment: The IG parameter is the percentage of metamyelocytes, myelocytes and promyelocytes. An immature granulocyte count (IG) of 1% or more suggests the possibility of infection, an IG count of 3% is very likely related to an infection. Performed By: #### L [id number] #### LAB [address] [address] Woo Sauer M.D. [id number] Lymphocytes (Bld) [#/Vol] 1.83 10*3/uL Normal 0.90-4.00 [facility] Comment on above: Performed By: #### L [id number] #### LAB [address] [address] Woo Sauer M.D. [id number] Lymphocytes/100 WBC (Bld) 25.8 % Normal [facility] Comment on above: Performed By: #### L [id number] #### MH LAB [address] [address] Woo Sauer M.D. [id number] MCH (RBC) [Entitic mass] 25.4 pg Low 26.0-34.0 [facility] Comment on above: Performed By: #### L [id number] #### LAB [address] [address] Woo Sauer M.D. [id number] MCV (RBC) [Entitic vol] 79.2 fL Low 80.0-100.0 [facility] Comment on above: Performed By: #### L [id number] #### LAB [address] [address] Woo Sauer M.D. [id number] MEAN CORPUSCULAR HEMOGLOBIN CONC 32.1 g/dL Normal 31.0-37.0 [facility] Comment on above: Performed By: #### L [id number] #### LAB [address] [address] Woo Sauer M.D. [id number] Monocytes (Bld) [#/Vol] 0.42 10*3/uL Normal 0.30-0.90 [facility] Comment on above: Performed By: #### L [id number] #### LAB [address] [address] Woo Sauer M.D. [id number] Monocytes/100 WBC (Bld) 5.9 % Normal [facility] Comment on above: Performed By: #### L [id number] #### LAB [address] [address] Woo Sauer M.D. [id number] NEUTROPHILS ABSOLUTE COUNT 4.83 K/mcL Normal 1.70-7.00 [facility] Comment on above: Performed By: #### L [id number] #### LAB [address] [address] Woo Sauer M.D. [id number] Neutrophils/100 WBC (Bld) 68.0 % Normal [facility] Comment on above: Performed By: #### L [id number] #### LAB [address] [address] Woo Sauer M.D. [id number] Platelet mean volume (Bld) [Entitic vol] 8.7 fL Low 9.4-12.4 [facility] Comment on above: Performed By: #### L [id number] #### LAB [address] [place] [address] Woo Sauer M.D. [id number] Platelets (Bld) [#/Vol] 367 10*3/uL Normal 150-400 [facility] Comment on above: Performed By: #### L [id number] #### MH LAB [address] [address] Woo aSuer M.D. [id number] RBC (Bld) [#/Vol] 4.96 10*6/uL Normal 4.50-5.90 [facility] Comment on above: Performed By: #### L [id number] #### MH LAB [address] [address] Woo Sauer M.D. [id number] WBC (Bld) [#/Vol] 7.10 10*3/uL Normal 4.50-11.00 [facility] Comment on above: Performed By: #### L [id number] #### LAB [address] [address] Woo Sauer M.D. [id number] LIPID PANELon 01-04-2024 Cholesterol [Mass/Vol] 142 mg/dL Normal 100-199 [facility] Comment on above: Result Comment: [facility] Guidelines: Cholesterol Desirable: <200 mg/dL Borderline High: 200-239 mg/dL High: greater than or equal to 240 mg/dL Performed By: #### 4 6087 #### LAB [address] [address] Woo Sauer M.D. [id number] Cholesterol in HDL [Mass/Vol] 40 mg/dL Normal 40-59 [facility] Comment on above: Result Comment: [facility] Guidelines: HDL Cholesterol Low: <40 mg/dL Near Optimal: 40-59 mg/dL High: greater than or equal to 60 mg/dL Performed By: #### 4 6048 ####MH LAB [address] [address] Woo Sauer M.D. [id number] Cholesterol.total/Carol sterol in HDL [Mass ratio] 3.6 {ratio} Normal [facility] Comment on above: Result Comment: Male s Cholesterol/HDL Ratio: Average risk: 5.0 1/2 average risk: 3.4 2 x average risk: 9.6 Performed By: #### 4 6087 #### LAB [address] [address] Woo Sauer M.D. [id number] LDL CHOLESTEROL CALCULATED 78 mg/dL Normal 10-130 [facility] Comment on above: Result Comment: [facility] Cholesterol Education Program Guidelines: LDL Cholesterol Optimal: <100 mg/dL Near Optimal/above Optimal: 100-129 mg/dL Borderline High: 130-159 mg/dL High: 160-189 mg/dL Very High: greater than or equal to 190 mg/dL Performed By: #### 4 6087 #### LAB [address] [address] Woo Sauer M.D. [id number] NON HDL CHOL 102 mg/dL Normal [facility] Comment on above: Result Comment: [facility] Cholesterol Education Program Guidelines: NON HDL Cholesterol Desirable: <130 mg/dL Borderline High: 130-159 mg/dL High: 160-189 mg/dL Very High: > or = 190 mg/dL Performed By: #### 4 6087 #### LAB [address] [address] Woo Sauer M.D. [id number] Triglyceride [Mass/Vol] 121 mg/dL Normal 30-150 [facility] Comment on above: Result Comment: [facility] Cholesterol Education Program Guidelines: Triglyceride Normal: <150 mg/dL Borderline High: 150-199 mg/dL High: 200-499 mg/dL Very High: greater than or equal to 500 mg/dL Performed By: #### 4 6087 #### LAB [address] [address] Woo Sauer M.D. [id number] TSH WITH REFLEX FREE T4on TSH Qn 1.47 m[IU]/L Normal 0.27-4.20 [facility] Comment on above: Performed By: #### 4 6612 #### LAB [address] [address] Woo Sauer M.D. [id number] URINALYSISon 01-04-2024 AMORPHOUS CRYSTALS Many Abnormal None Seen , Rare [facility] Comment on above: Order Comment: Micro scopic examination is performed on all urinalysis samples and only positive findings are reported. The test for blood on the chemical analytic portion of urinalysis may also be positive due to hemoglobinuria and myoglobinuria and if red blood cells are present they are quantified by microscopic examination. Performed By: #### 4 6625 #### LAB [address] [address] Woo Sauer M.D. [id number] BACTERIA, URINE None Seen Normal None Seen [facility] Comment on above: Order Comment: Micro scopic examination is performed on all urinalysis samples and only positive findings are reported. The test for blood on the chemical analytic portion of urinalysis may also be positive due to hemoglobinuria and myoglobinuria and if red blood cells are present they are quantified by microscopic examination. Performed By: #### 4 6625 #### LAB [address] [place] [address] Woo Sauer M.D. [id number] BILIRUBIN, URINE Negative Normal Negative [facility] Comment on above: Order Comment: Micro scopic examination is performed on all urinalysis samples and only positive findings are reported. The test for blood on the chemical analytic portion of urinalysis may also be positive due to hemoglobinuria and myoglobinuria and if red blood cells are present they are quantified by microscopic examination. Performed By: #### 4 6625 #### LAB [address] [address] Woo Sauer M.D. [id number] BLOOD, URINE Negative Normal Negative [facility] Comment on above: Order Comment: Micro scopic examination is performed on all urinalysis samples and only positive findings are reported. The test for blood on the chemical analytic portion of urinalysis may also be positive due to hemoglobinuria and myoglobinuria and if red blood cells are present they are quantified by microscopic examination. Performed By: #### 4 6625 #### LAB [address] [address] Woo Sauer M.D. [id number] Clarity (U) Cloudy Abnormal Clear [facility] Comment on above: Order Comment: Micro scopic examination is performed on all urinalysis samples and only positive findings are reported. The test for blood on the chemical analytic portion of urinalysis may also be positive due to hemoglobinuria and myoglobinuria and if red blood cells are present they are quantified by microscopic examination. Performed By: #### 4 6625 #### LAB [address] [place] [address] Woo Sauer M.D. [id number] Color (U) Yellow Normal Colorless, Yellow [facility] Comment on above: Order Comment: Micro scopic examination is performed on all urinalysis samples and only positive findings are reported. The test for blood on the chemical analytic portion of urinalysis may also be positive due to hemoglobinuria and myoglobinuria and if red blood cells are present they are quantified by microscopic examination. Performed By: #### 4 6625 #### LAB [address] [place] [address] Woo Sauer M.D. [id number] Glucose Ql (U) Negative Normal Negative [facility] Comment on above: Order Comment: Micro scopic examination is performed on all urinalysis samples and only positive findings are reported. The test for blood on the chemical analytic portion of urinalysis may also be positive due to hemoglobinuria and myoglobinuria and if red blood cells are present they are quantified by microscopic examination. Performed By: #### 4 6625 #### LAB [address] [place] [address] Woo Sauer M.D. [id number] Ketones Ql (U) Negative Normal Negative [facility] Comment on above: Order Comment: Micro scopic examination is performed on all urinalysis samples and only positive findings are reported. The test for blood on the chemical analytic portion of urinalysis may also be positive due to hemoglobinuria and myoglobinuria and if red blood cells are present they are quantified by microscopic examination. Performed By: #### 4 6625 #### LAB [address] [address] Woo Sauer M.D. [id number] Leukocyte esterase Test strip Ql (U) Negative Normal Negative [facility] Comment on above: Order Comment: Micro scopic examination is performed on all urinalysis samples and only positive findings are reported. The test for blood on the chemical analytic portion of urinalysis may also be positive due to hemoglobinuria and myoglobinuria and if red blood cells are present they are quantified by microscopic examination. Performed By: #### 4 6625 #### LAB [address] [address] Woo Sauer M.D. [id number] MUCUS, URINE Few Abnormal None Seen, Rare [facility] Comment on above: Order Comment: Micro scopic examination is performed on all urinalysis samples and only positive findings are reported. The test for blood on the chemical analytic portion of urinalysis may also be positive due to hemoglobinuria and myoglobinuria and if red blood cells are present they are quantified by microscopic examination. Performed By: #### 4 6625 #### LAB [address] [place] [address] Woo Sauer M.D. [id number] NITRITE, URINE Negative Normal Negative [facility] Comment on above: Order Comment: Micro scopic examination is performed on all urinalysis samples and only positive findings are reported. The test for blood on the chemical analytic portion of urinalysis may also be positive due to hemoglobinuria and myoglobinuria and if red blood cells are present they are quantified by microscopic examination. Performed By: #### 4 6625 #### LAB [address] [address] Woo Sauer M.D. [id number] pH (U) 7.0 [pH] Normal 5.0-7.0 [facility] Comment on above: Order Comment: Micro scopic examination is performed on all urinalysis samples and only positive findings are reported. The test for blood on the chemical analytic portion of urinalysis may also be positive due to hemoglobinuria and myoglobinuria and if red blood cells are present they are quantified by microscopic examination. Performed By: #### 4 6625 #### LAB [address] [address] Woo Sauer M.D. [id number] PROTEIN, URINE Negative Normal Negative [facility] Comment on above: Order Comment: Micro scopic examination is performed on all urinalysis samples and only positive findings are reported. The test for blood on the chemical analytic portion of urinalysis may also be positive due to hemoglobinuria and myoglobinuria and if red blood cells are present they are quantified by microscopic examination. Performed By: #### 4 6625 #### LAB [address] [address] Woo Sauer M.D. [id number] Specific gravity (U) [Rel density] 1.025 Normal 1.005-1.025 [facility] Comment on above: Order Comment: Micro scopic examination is performed on all urinalysis samples and only positive findings are reported. The test for blood on the chemical analytic portion of urinalysis may also be positive due to hemoglobinuria and myoglobinuria and if red blood cells are present they are quantified by microscopic examination. Performed By: #### 4 6625 ####[facility] LAB [address] [place] [address] Woo Sauer M.D. [id number] SQUAMOUS EPITHELIAL 3 /hpf Normal 0-4 [facility] Comment on above: Order Comment: Micro scopic examination is performed on all urinalysis samples and only positive findings are reported. The test for blood on the chemical analytic portion of urinalysis may also be positive due to hemoglobinuria and myoglobinuria and if red blood cells are present they are quantified by microscopic examination. Performed By: #### 4 6625 #### LAB [address] [address] Woo Sauer M.D. [id number] UROBILINOGEN, URINE 2.0 mg/dL Abnormal <2.0 [facility] Comment on above: Order Comment: Micro scopic examination is performed on all urinalysis samples and only positive findings are reported. The test for blood on the chemical analytic portion of urinalysis may also be positive due to hemoglobinuria and myoglobinuria and if red blood cells are present they are quantified by microscopic examination. Performed By: #### 4 6625 #### LAB [address] [address] Woo Sauer M.D. [id number] WBC LM.HPF (Urine sed) [#/Area] 6 /[HPF] High 0-5 [facility] Comment on above: Order Comment: Micro scopic examination is performed on all urinalysis samples and only positive findings are reported. The test for blood on the chemical analytic portion of urinalysis may also be positive due to hemoglobinuria and myoglobinuria and if red blood cells are present they are quantified by microscopic examination. Performed By: #### 4 6625 ####[facility] LAB [address] [place], [place] [address] Woo Sauer M.D. [id number] 12 Lead EKGon 01-03-2024 12 Lead EKG [facility] [address] [place] [address] 12 Lead EKG 01/03/24 1600 MR#: [id number] Acct: [id number] Name: PEREZLEVY Tulio Rep #: [id number] : 1995 28 From: Jennifer Houston MD Attending Dr: Status: DEP ER Ordering Dr: Mitzi Carl DO Date: 01/03/24 Location: ED Sex: M [...] rhythm Normal ECG Confirmed by Jennifer Houston ([id number]), assistant film editor ASHLEIGH PARKER ([id number]) on 01/05/2024 10:01:18 AM Referred By: Confirmed By: Jennifer Houston 01/05/24 1001 Date Jennifer Houston MD CC: Dr. Mitzi Carl DO; Dr. Turner Bundy MD Signed [facility] Alcohol, Blood (Medical)-Ser umon 01-03-2024 SERUM ETOH 4.0 mg/dL [facility] Comment on above: Result Comment: The serum:whole blood ethanol ratio is approximately 1.14 and varies slightly with hematocrit. Medical Alcohol reference interval and critical value in non-tolerant individuals; 50 - 100 Impairment 100 Intoxication 100 - 250 Severe Poisoning 250 - 400 Deep/possible fatal coma Performed By: #### L 505.5000, L501.9100, L500.2500, L100.0100 ####[facility] [address] [place], [address] Basic Metabolic Profile (BMP )on 01-03-2024 BUN/CRE 11.8 RATIO Normal 10-20 [facility] Comment on above: Performed By: #### L 505.5000, L501.9100, L500.2500, L100.0100 ####[facility] [address] [place], [address] CA,Total 9.0 mg/dL Normal 8.5-10.1 [facility] Comment on above: Performed By: #### L 505.5000, L501.9100, L500.2500, L100.0100 ####[facility] [address] [place], [address] Chloride [Moles/Vol] 108 mmol/L High 98-107 [facility] Comment on above: Performed By: #### L 505.5000, L501.9100, L500.2500, L100.0100 ####[facility] [address] [place], [address] CO2 [Moles/Vol] 25.0 mmol/L Normal 21.0-32.0 [facility] Comment on above: Performed By: #### L 505.5000, L501.9100, L500.2500, L100.0100 ####[facility] [address] [place], [address] Creatinine [Mass/Vol] 0.76 mg/dL Normal 0.70-1.30 [facility] Comment on above: Result Comment: The validity of the calculated GFR GFRAA in patients over 70 years has not been determined. Clinical correlation is essential. Performed By: #### L 505.5000, L501.9100, L500.2500, L100.0100 ####[facility] [address] [place], [address] ECRCL 212.02 ml/min Normal [facility] Comment on above: Performed By: #### L 505.5000, L501.9100, L500.2500, L100.0100 ####[facility] [address] [place], [address] EST GFR - AA 154 mL/min Normal >60 [facility] Comment on above: Result Comment: Afri can Nigerien GFR Calc Performed By: #### L 505.5000, L501.9100, L500.2500, L100.0100 ####[facility] [address] [place], [address] GAP 7 Normal 5-15 [facility] Comment on above: Performed By: #### L 505.5000, L501.9100, L500.2500, L100.0100 ####[facility] [address] [place], [address] GFR/1.73 sq M.predicted among non-blacks MDRD (S/P/Bld) [Vol rate/Area] 128 mL/min/{1.73_m2} Normal >60 [facility] Comment on above: Result Comment: Non- GFR Calc Performed By: #### L 505.5000, L501.9100, L500.2500, L100.0100 ####[facility] [address] [place], [address] Glucose [Mass/Vol] 96 mg/dL Normal 74-106 [facility] Comment on above: Performed By: #### L 505.5000, L501.9100, L500.2500, L100.0100 ####[facility] [address] [place], [address] Potassium [Moles/Vol] 3.6 mmol/L Normal 3.5-5.1 [facility] Comment on above: Performed By: #### L 505.5000, L501.9100, L500.2500, L100.0100 ####[facility] [address] [place], [address] Sodium [Moles/Vol] 140 mmol/L Normal 136-145 [facility] Comment on above: Performed By: #### L 505.5000, L501.9100, L500.2500, L100.0100 ####[facility] [address] [place], [address] Urea nitrogen [Mass/Vol] 9 mg/dL Normal 7-18 [facility] Comment on above: Performed By: #### L 505.5000, L501.9100, L500.2500, L100.0100 ####[facility] [address] [place], [address] CBC W/Diff, Automatedon 11-0 5-2024 Absolute Lymph 1.90 X10 3/uL Normal 0.83-4.51 [facility] Comment on above: Performed By: #### L 505.5000, L501.9100, L500.2500, L100.0100 ####[facility] [address] [place], [address] Absolute Neut 4.1 X10 3/uL Normal 2.0-7.7 [facility] Comment on above: Performed By: #### L 505.5000, L501.9100, L500.2500, L100.0100 ####[facility] [address] [place], [address] Basophils/100 WBC (Bld) 0.0 % Normal 0-1 [facility] Comment on above: Performed By: #### L 505.5000, L501.9100, L500.2500, L100.0100 ####[facility] [address] [place], [address] Eosinophils/100 WBC (Bld) 0.0 % Normal 0-5 [facility] Comment on above: Performed By: #### L 505.5000, L501.9100, L500.2500, L100.0100 ####[facility] [address] [place], [address] Erythrocyte distribution width (RBC) [Ratio] 14.3 % Normal 11.6-14.6 [facility] Comment on above: Performed By: #### L 505.5000, L501.9100, L500.2500, L100.0100 ####[facility] [address] [place], [address] Hematocrit (Bld) [Volume fraction] 38.0 % Low 40-54 [facility] Comment on above: Performed By: #### L 505.5000, L501.9100, L500.2500, L100.0100 ####[facility] [address] [place], [address] Hemoglobin (Bld) [Mass/Vol] 12.0 g/dL Low 13.0-16.5 [facility] Comment on above: Performed By: #### L 505.5000, L501.9100, L500.2500, L100.0100 ####[facility] [address] [place], [address] IG% 0.300 Normal 0.0-0.9 [facility] Comment on above: Result Comment: IG% - Immature Granulocytes (promyelocytes, myelocytes and metamyelocytes) > 1% indicates that a LEFT SHIFT is Present. Performed By: #### L 505.5000, L501.9100, L500.2500, L100.0100 ####[facility] [address] [place], [address] Lymphocytes/100 WBC (Bld) 29.5 % Normal 19-41 [facility] Comment on above: Performed By: #### L 505.5000, L501.9100, L500.2500, L100.0100 ####[facility] [address] [place], [address] MCH (RBC) [Entitic mass] 24.9 pg Low 27.0-32.0 [facility] Comment on above: Performed By: #### L 505.5000, L501.9100, L500.2500, L100.0100 ####[facility] [address] [place], [address] MCHC (RBC) [Mass/Vol] 31.6 g/dL Low 32-36 [facility] Comment on above: Performed By: #### L 505.5000, L501.9100, L500.2500, L100.0100 ####[facility] [address] [place], [address] MCV (RBC) [Entitic vol] 79.0 fL Low 80-94 [facility] Comment on above: Performed By: #### L 505.5000, L501.9100, L500.2500, L100.0100 ####[facility] [address] [place], [address] Monocytes/100 WBC (Bld) 7.1 % Normal 0-10 [facility] Comment on above: Performed By: #### L 505.5000, L501.9100, L500.2500, L100.0100 ####[facility] [address] [place], [address] Neutrophils/100 WBC (Bld) 63.1 % Normal 47-70 [facility] Comment on above: Performed By: #### L 505.5000, L501.9100, L500.2500, L100.0100 ####[facility] [address] [place], [address] Nucleated RBC (Bld) [#/Vol] 0 10*3/uL Normal 0-5 [facility] Comment on above: Performed By: #### L 505.5000, L501.9100, L500.2500, L100.0100 ####[facility] [address] [place], [address] Platelet mean volume (Bld) [Entitic vol] 8.5 fL Normal 6.2-12.0 [facility] Comment on above: Performed By: #### L 505.5000, L501.9100, L500.2500, L100.0100 ####[facility] [address] [place], [address] Platelets (Bld) [#/Vol] 341 10*3/uL Normal 150-450 [facility] Comment on above: Performed By: #### L 505.5000, L501.9100, L500.2500, L100.0100 ####[facility] [address] [place], [address] RBC (Bld) [#/Vol] 4.81 10*6/uL Normal 4.6-6.2 [facility] Comment on above: Performed By: #### L 505.5000, L501.9100, L500.2500, L100.0100 ####[facility] [address] [place], [address] RDW SD 40.6 fl Normal 35.1-43.9 [facility] Comment on above: Performed By: #### L 505.5000, L501.9100, L500.2500, L100.0100 ####[facility] [address] [place], [address] WBC (Bld) [#/Vol] 6.5 10*3/uL Normal 4.4-11.0 [facility] Comment on above: Performed By: #### L 505.5000, L501.9100, L500.2500, L100.0100 ####[facility] [id number] [place], [address] Emergency Department Summary on 01-03-2024 Emergency Department Summary [facility] Medical Records Department [address] [place] [address] Emergency Department Summary 01/03/24 MR#: [id number] Acct: [id number] Name: LEVY TODD Rep #: [id number] : 1995 28 From: Mitzi Carl DO PCP: Dr. Turner Bundy MD Status:REG ER Location: ED ADDENDUM by Nahum Garcia DO on 01/04/24 at 0638 The patient was signed out to me while awaiting evaluation by crisis center. After evaluation they do feel he would benefit from inpatient treatment. He has been accepted to [facility]. 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 He [...] counseling center. Notes that he was at [facility] a month ago for 3 days for [...] injury to them. Denies any excessive walking. [facility] Medical History Paranoia PTSD (post-traumatic stress [...] 06/02/22 05/31/22 History mg/2.63 mL intramuscular syringe ([employer]) albuterol sulfate 90 mcg/actuation 2 puff inhalation [...] 25 mg tablet 25 mg PO TID 01/03/24 Unknown History lamotrigine 100 mg tablet 100 [...] History (Revi (more content not included)... Normal [facility] Foot 2 Viewson 01-03-2024 Foot 2 Views [facility] Imaging Services [address] [place], [place] [id number] Foot 2 Views MR#: [id number] Acct: [id number] Name: LEVY TODD Rep #: [id number] : 1995 M 28 From: Micha Blue MD PCP: Dr. Turner Bundy MD Status: [facility] ER Study: Foot 2 Views Date of Exam: 01/03/24 Exam# [id number] Ordering Dr: Mitzi Carl DO [id number] STUDY: X-RAY - RIGHT FOOT CLINICAL: Male, [...] Signed: Micha Blue MD at 16:28 EST , CC: Dr. Mitzi Carl DO; Dr. Turner Bundy MD Tool Maker: Signed Normal [facility] Foot 2 Views [facility] Imaging Services [address] [place] [address] Foot 2 Views MR#: [id number] Acct: [id number] Name: LEVY TODD Rep #: [id number] : 1995 M 28 From: Micha Blue MD PCP: Dr. Turner Bundy MD Status: REG ER Study: Foot 2 Views Date of Exam: 01/03/24 Exam# [id number] Ordering Dr: Mitzi Carl DO ADDENDUM by Dr. Micha Blue MD on 01/03/24 at 1629 == ADDENDUM == [id number] ADDENDUM: Upon additional review of the images, there is noted to be a proximal medial spur of the distal phalanx of the great toe as well as an exostosis of uncertain clinical significance Electronically Signed: Micha Blue MD at 16:29 EST Reading Location ID and State: [address] [place] [address] Tel [phone], Service support , 01/03/24 1629 Date cc: Dr. Mitzi Carl DO; Dr. Turner Bundy MD * Signed ADDENDUM by Dr. Micha Blue MD on 01/03/24 at 1629 RAD/Foot 2 Views IMPRESSION: undefined 01/03/24 1636 Date cc: Dr. Mitzi Carl DO; Dr. Turner Bundy MD * Signed [id number] STUDY: X-RAY - LEFT FOOT CLINICAL: Male, [...] 16:25 EST Reading Location ID and State: [address] [place] [address] Tel , Service support , CC: Dr. Mitzi Carl DO; Dr. Turner Bundy MD Tool Maker: Signed Normal [facility] Urine Drug Screen (VISTA)on 01-03-2024 AMPHETAMINES Negative Normal <1000 ng/mL [facility] Comment on above: Performed By: #### L 505.5000, L501.9100, L500.2500, L100.0100 ####[facility] [address] [facility] [address] BARBITIURATES Negative Normal < 200 ng/mL [facility] Comment on above: Performed By: #### L 505.5000, L501.9100, L500.2500, L100.0100 ####[facility] [address] [facility] [address] BENZODIAZIPINE Negative Normal < 200 ng/mL [facility] Comment on above: Performed By: #### L 505.5000, L501.9100, L500.2500, L100.0100 ####[facility] [address] [place] [address] COCAINE Negative Normal < 300 ng/mL [facility] Comment on above: Performed By: #### L 505.5000, L501.9100, L500.2500, L100.0100 ####[facility] [address] [place] [address] ECSTACY Negative Normal < 500 ng/mL [facility] Comment on above: Performed By: #### L 505.5000, L501.9100, L500.2500, L100.0100 ####[facility] [address] [place] [address] METHADONE Negative Normal < 300 ng/mL [facility] Comment on above: Performed By: #### L 505.5000, L501.9100, L500.2500, L100.0100 ####[facility] [address] [place] [address] OPIATES Negative Normal < 300 ng/mL [facility] Comment on above: Performed By: #### L 505.5000, L501.9100, L500.2500, L100.0100 ####[facility] [address] [place], [address] PCP Negative Normal < 25 ng/mL [facility] Comment on above: Performed By: #### L 505.5000, L501.9100, L500.2500, L100.0100 ####[facility] [address] [place], [address] THC Negative Normal < 50 ng/mL [facility] Comment on above: Performed By: #### L 505.5000, L501.9100, L500.2500, L100.0100 ####[facility] [address] [place], [address] VISTA UDS PH 5 Normal [facility] Comment on above: Performed By: #### L 505.5000, L501.9100, L500.2500, L100.0100 ####[facility] [address] [place], [address] Lithiumon 12-20-2023 [place] [Moles/Vol] 0.3 mmol/L Low 0.50-1.50 [facility] Comment on above: Performed By: #### L IC #### [facility] [address] [place] [address] Talkback Host: Markus Verdugo MD Date last dose, Unknown Normal [facility] Comment on above: Performed By: #### L IC #### [facility] [address] [place] [address] Talkback Host: Markus Verdugo MD Dose amount, Unknown Normal [facility] Comment on above: Performed By: #### L IC #### [facility] [address] [place] [address] Talkback Host: Markus Verdugo MD Time last dose, Unknown Normal [facility] Comment on above: Performed By: #### L IC #### [address] [place] [address] Talkback Host: Markus Verdugo MD Hemoglobin A1Con 12-18-2023 HbA1c (Bld) [Mass fraction] 6.0 % High 4.0-5.6 [facility] Comment on above: Performed By: #### G LYHGB #### [address] [address] Talkback Host: Markus Verdugo MD Lipid Prof, Fastingon 2023 Cholesterol [Mass/Vol] 161 mg/dL Normal <200 [facility] Comment on above: Performed By: #### L IPRF #### [address] [place] [address] Talkback Host: Markus Verdugo MD Cholesterol in HDL [Mass/Vol] 40 mg/dL Low >40 [facility] Comment on above: Performed By: #### L IPRF #### [address] [place] [address] Talkback Host: Markus Verdugo MD Cholesterol in LDL [Mass/Vol] 102 mg/dL High <100 [facility] Comment on above: Performed By: #### L IPRF #### [address] [place] [address] Talkback Host: Markus Verdugo MD Cholesterol in VLDL [Mass/Vol] 19 mg/dL Normal [facility] Comment on above: Result Comment: No n ormal range established. Performed By: #### L IPRF #### [address] [place] [address] Talkback Host: Markus Verdugo MD Triglyceride,Fasting 94 mg/dL Normal <150 [facility] Comment on above: Performed By: #### L IPRF #### [facility] [address] [place] [address] Talkback Host: Markus Verdugo MD CPK Total, Creatine Kinaseon 12-16-2023 CPK TOTAL 132 U/L Normal 39-308 [facility] Comment on above: Performed By: #### L 501.3620 ####[facility] [address] [place], [address] 12 Lead EKGon 12-15-2023 12 Lead EKG [facility] Cardiovascular Services [address] [place] [address] 12 Lead EKG 12/15/23 1726 MR#: [id number] Acct: [id number] Name: LEVY TODD Rep #: [id number] : 1995 28 From: Jennifer Houston MD [...] rhythm Normal ECG Confirmed by Jennifer Houston ([id number]), assistant film editor ASHLEIGH PARKER ([id number]) on 12/16/2023 1:37:54 PM Referred By: Confirmed By:Jennifer Houston 12/16/23 1337 Date Jennifer Houston MD CC: Dr. Jonnie Boland MD; Dr. Turner Bundy MD Signed Normal [facility] Alcohol, Blood (Medical)-Ser umon 12-15-2023 SERUM ETOH < 3.0 Normal [facility] Comment on above: Result Comment: The serum:whole blood ethanol ratio is approximately 1.14 and varies slightly with hematocrit. Medical Alcohol reference interval and critical value in non-tolerant individuals; 50 - 100 Impairment 100 Intoxication 100 - 250 Severe Poisoning 250 - 400 Deep/possible fatal coma Performed By: #### L 100.0100, L505.5000, L501.9060, L501.9100 #### [facility] [address] [place], [address] CBC W/Diff, Automatedon 11-28 Absolute Lymph 2.69 X10 3/uL Normal 0.83-4.51 [facility] Comment on above: Performed By: #### L 100.0100, L505.5000, L501.9060, L501.9100 #### [facility] [address] [place], [address] Absolute Neut 5.7 X10 3/uL Normal 2.0-7.7 [facility] Comment on above: Performed By: #### L 100.0100, L505.5000, L501.9060, L501.9100 #### [facility] [address] [place], [address] Basophils/100 WBC (Bld) 0.1 % Normal 0-1 [facility] Comment on above: Performed By: #### L 100.0100, L505.5000, L501.9060, L501.9100 #### [facility] [address] [place], [address] Eosinophils/100 WBC (Bld) 0.0 % Normal 0-5 [facility] Comment on above: Performed By: #### L 100.0100, L505.5000, L501.9060, L501.9100 #### [facility] [address] [place], [address] Erythrocyte distribution width (RBC) [Ratio] 14.3 % Normal 11.6-14.6 [facility] Comment on above: Performed By: #### L 100.0100, L505.5000, L501.9060, L501.9100 #### [facility] [address] [place], [address] Hematocrit (Bld) [Volume fraction] 38.3 % Low 40-54 [facility] Comment on above: Performed By: #### L 100.0100, L505.5000, L501.9060, L501.9100 #### [facility] [address] [place], [address] Hemoglobin (Bld) [Mass/Vol] 12.2 g/dL Low 13.0-16.5 [facility] Comment on above: Performed By: #### L 100.0100, L505.5000, L501.9060, L501.9100 #### [facility] [address] [place], [address] IG% 0.400 Normal 0.0-0.9 [facility] Comment on above: Result Comment: IG% - Immature Granulocytes (promyelocytes, myelocytes and metamyelocytes) > 1% indicates that a LEFT SHIFT is Present. Performed By: #### L 100.0100, L505.5000, L501.9060, L501.9100 #### [facility] [address] [place], [address] Lymphocytes/100 WBC (Bld) 29.2 % Normal 19-41 [facility] Comment on above: Performed By: #### L 100.0100, L505.5000, L501.9060, L501.9100 #### [facility] [address] [place], [address] MCH (RBC) [Entitic mass] 25.1 pg Low 27.0-32.0 [facility] Comment on above: Performed By: #### L 100.0100, L505.5000, L501.9060, L501.9100 #### [facility] [address] [place], [address] MCHC (RBC) [Mass/Vol] 31.9 g/dL Low 32-36 [facility] Comment on above: Performed By: #### L 100.0100, L505.5000, L501.9060, L501.9100 #### [facility] [address] [place], [address] MCV (RBC) [Entitic vol] 78.8 fL Low 80-94 [facility] Comment on above: Performed By: #### L 100.0100, L505.5000, L501.9060, L501.9100 #### [facility] [address] [place], [address] Monocytes/100 WBC (Bld) 8.6 % Normal 0-10 [facility] Comment on above: Performed By: #### L 100.0100, L505.5000, L501.9060, L501.9100 #### [facility] [address] [place], [address] Neutrophils/100 WBC (Bld) 61.7 % Normal 47-70 [facility] Comment on above: Performed By: #### L 100.0100, L505.5000, L501.9060, L501.9100 #### [facility] [address] [place], [address] Nucleated RBC (Bld) [#/Vol] 0 10*3/uL Normal 0-5 [facility] Comment on above: Performed By: #### L 100.0100, L505.5000, L501.9060, L501.9100 #### [facility] [address] [place], [address] Platelet mean volume (Bld) [Entitic vol] 9.1 fL Normal 6.2-12.0 [facility] Comment on above: Performed By: #### L 100.0100, L505.5000, L501.9060, L501.9100 #### [facility] [address] [place], [address] Platelets (Bld) [#/Vol] 362 10*3/uL Normal 150-450 [facility] Comment on above: Performed By: #### L 100.0100, L505.5000, L501.9060, L501.9100 #### [facility] [address] [place], [address] RBC (Bld) [#/Vol] 4.86 10*6/uL Normal 4.6-6.2 [facility] Comment on above: Performed By: #### L 100.0100, L505.5000, L501.9060, L501.9100 #### [facility] [address] [place], [address] RDW SD 40.2 fl Normal 35.1-43.9 [facility] Comment on above: Performed By: #### L 100.0100, L505.5000, L501.9060, L501.9100 #### [facility] [address] [place], [address] WBC (Bld) [#/Vol] 9.2 10*3/uL Normal 4.4-11.0 [facility] Comment on above: Performed By: #### L 100.0100, L505.5000, L501.9060, L501.9100 #### [facility] [address] [place], [address] Comprehensive Metabolic [facility] 12-15-2023 Albumin [Mass/Vol] 3.9 g/dL Normal 3.2-5.0 [facility] Comment on above: Performed By: #### L 100.0100, L505.5000, L501.9060, L501.9100 #### [facility] [address] [place], [address] Albumin/Globulin [Mass ratio] 1.1 {ratio} Normal 0.9-2.4 [facility] Comment on above: Performed By: #### L 100.0100, L505.5000, L501.9060, L501.9100 #### [facility] [address] [place], [address] ALK P 96 U/L Normal 45-117 [facility] Comment on above: Performed By: #### L 100.0100, L505.5000, L501.9060, L501.9100 #### [facility] [address] [place], [address] ALT [Catalytic activity/Vol] 28 U/L Normal 16-61 [facility] Comment on above: Performed By: #### L 100.0100, L505.5000, L501.9060, L501.9100 #### [facility] [address] [place], [address] AST [Catalytic activity/Vol] 16 U/L Normal 15-37 [facility] Comment on above: Performed By: #### L 100.0100, L505.5000, L501.9060, L501.9100 #### [facility] [address] [place], [address] Bilirubin [Mass/Vol] 0.20 mg/dL Normal 0.20-1.00 [facility] Comment on above: Result Comment: For patients on eltrombopag therapy, use of Dimension [place] TBIL is not recommended. Performed By: #### L 100.0100, L505.5000, L501.9060, L501.9100 #### [facility] [address] [place], [address] BUN/CRE 10.9 RATIO Normal 10-20 [facility] Comment on above: Performed By: #### L 100.0100, L505.5000, L501.9060, L501.9100 #### [facility] [address] [place], [address] CA,Total 9.2 mg/dL Normal 8.5-10.1 [facility] Comment on above: Performed By: #### L 100.0100, L505.5000, L501.9060, L501.9100 #### [facility] [address] [place], [address] Chloride [Moles/Vol] 108 mmol/L High 98-107 [facility] Comment on above: Performed By: #### L 100.0100, L505.5000, L501.9060, L501.9100 #### [facility] [address] [place], [address] CO2 [Moles/Vol] 25.0 mmol/L Normal 21.0-32.0 [facility] Comment on above: Performed By: #### L 100.0100, L505.5000, L501.9060, L501.9100 #### [facility] [address] [place], [address] Creatinine [Mass/Vol] 0.82 mg/dL Normal 0.70-1.30 [facility] Comment on above: Result Comment: The validity of the calculated GFR GFRAA in patients over 70 years has not been determined. Clinical correlation is essential. Performed By: #### L 100.0100, L505.5000, L501.9060, L501.9100 #### [facility] [address] [place], [address] ECRCL 191.47 ml/min Normal [facility] Comment on above: Performed By: #### L 100.0100, L505.5000, L501.9060, L501.9100 #### [facility] [address] [place], [address] EST GFR - AA 141 mL/min Normal >60 [facility] Comment on above: Result Comment: Afri can Nigerien GFR Calc Performed By: #### L 100.0100, L505.5000, L501.9060, L501.9100 #### [facility] [address] [place], [address] GAP 7 Normal 5-15 [facility] Comment on above: Performed By: #### L 100.0100, L505.5000, L501.9060, L501.9100 #### [facility] [address] [place], [address] GFR/1.73 sq M.predicted among non-blacks MDRD (S/P/Bld) [Vol rate/Area] 116 mL/min/{1.73_m2} Normal >60 [facility] Comment on above: Result Comment: Non- GFR Calc Performed By: #### L 100.0100, L505.5000, L501.9060, L501.9100 #### [facility] [address] [place], [address] Globulin (S) [Mass/Vol] 3.7 g/dL Normal 2.2-4.2 [facility] Comment on above: Performed By: #### L 100.0100, L505.5000, L501.9060, L501.9100 #### [facility] [address] [place], [address] Glucose [Mass/Vol] 85 mg/dL Normal 74-106 [facility] Comment on above: Performed By: #### L 100.0100, L505.5000, L501.9060, L501.9100 #### [facility] [address] [place], [address] Potassium [Moles/Vol] 3.7 mmol/L Normal 3.5-5.1 [facility] Comment on above: Performed By: #### L 100.0100, L505.5000, L501.9060, L501.9100 #### [facility] [address] [place], [address] Sodium [Moles/Vol] 140 mmol/L Normal 136-145 [facility] Comment on above: Performed By: #### L 100.0100, L505.5000, L501.9060, L501.9100 #### [facility] [address] [place], [address] T PROT 7.6 g/dL Normal 6.4-8.2 [facility] Comment on above: Performed By: #### L 100.0100, L505.5000, L501.9060, L501.9100 #### [facility] [address] [place], [address] Urea nitrogen [Mass/Vol] 9 mg/dL Normal 7-18 [facility] Comment on above: Performed By: #### L 100.0100, L505.5000, L501.9060, L501.9100 #### [facility] [address] [place], [address] Emergency Department Summary on 12-15-2023 Emergency Department Summary [place] [facility] Medical Records Department [address] [facility] [place] [address] Emergency Department Summary 12/15/23 MR#: [id number] Acct: [id number] Name: LEVY TODD Rep #: [id number] : 1995 28 From: Jonnie Boland MD PCP: Dr. Truner Bundy MD Status:REG ER Location: ED HPI HPI - Psych History of Present Illness Chief Complaint: Suicidal Informant: patient Narrative Narrative: Patient states he has been in a care home for 2 weeks now because he lives [...] just prior to this he was at [employer] and having a good time. Denies any recent illness or injury. He states the voices were telling him to jump out in front of traffic. No new medications states he is compliant with his psychiatric medications. [facility] Medical History Paranoia PTSD (post-traumatic stress [...] 06/02/22 05/31/22 History mg/2.63 mL intramuscular syringe ([employer]) albuterol sulfate 90 mcg/actuation 2 puff inhalation [...] Room Air (more content not included)... Normal [facility] Lithiumon 12-15-2023 LI 0.30 mmol/L Low 0.60-1.20 [facility] Comment on above: Performed By: #### L 100.0100, L505.5000, L501.9060, L501.9100 #### [facility] [address] [place], [address] Urine Drug Screen (VISTA)on 12-15-2023 AMPHETAMINES Negative Normal <1000 ng/mL [facility] Comment on above: Performed By: #### L 100.0100, L505.5000, L501.9060, L501.9100 #### [facility] [address] [place], [address] BARBITIURATES Negative Normal < 200 ng/mL [facility] Comment on above: Performed By: #### L 100.0100, L505.5000, L501.9060, L501.9100 #### [facility] [address] [place], [address] BENZODIAZIPINE Negative Normal < 200 ng/mL [facility] Comment on above: Performed By: #### L 100.0100, L505.5000, L501.9060, L501.9100 #### [facility] [address] [place], [facility] COCAINE Negative Normal < 300 ng/mL [facility] Comment on above: Performed By: #### L 100.0100, L505.5000, L501.9060, L501.9100 #### [facility] [address] [place], [address] ECSTACY Negative Normal < 500 ng/mL [facility] Comment on above: Performed By: #### L 100.0100, L505.5000, L501.9060, L501.9100 #### [facility] [address] [place], [address] METHADONE Negative Normal < 300 ng/mL [facility] Comment on above: Performed By: #### L 100.0100, L505.5000, L501.9060, L501.9100 #### [facility] [address] [place], [address] OPIATES Negative Normal < 300 ng/mL [facility] Comment on above: Performed By: #### L 100.0100, L505.5000, L501.9060, L501.9100 #### [facility] [address] [place], [address] PCP Negative Normal < 25 ng/mL [facility] Comment on above: Performed By: #### L 100.0100, L505.5000, L501.9060, L501.9100 #### [facility] [address] [place], [address] THC Negative Normal < 50 ng/mL [facility] Comment on above: Performed By: #### L 100.0100, L505.5000, L501.9060, L501.9100 #### [facility] [address] [place], [address] VISTA UDS PH 6 Normal [facility] Comment on above: Performed By: #### L 100.0100, L505.5000, L501.9060, L501.9100 #### [facility] [address] [place], [address] [facility] -------- LEVY TODD ([id number]) 1995 Date Time Provider Department 12/05/23 ANGELINA CLAUDIO [facility] During your visit today, we recorded the following information about you: Pam Gray MA 12/05/2023 2:06 PM Signed ----- Message from Angelina Claudio sent at 12/05/2023 1:48 PM EDT ----- Labs are ok. Very mild anemia but iron, B12, folate, and iron stores are normal. No diabetes. Pam Gray MA 12/05/2023 2:07 PM Signed Pt notified of results via [employer]. Pam Gray Ma Allergies As of Date: [...] Status:Closed by PAM GRAY on 12/05/23 Normal [facility] Basic metabolic 2000 panelon 12-02-2023 Anion gap [Moles/Vol] 12 mmol/L Normal 8-15 [facility] Comment on above: Order Comment: Speci men Type: BLOOD SPECIMEN Ordering Facility: [facility] Address: [address] [place] [address] Performed By: #### 5 5454-3 #### [facility] CLIA [id number] [address] [place] [address] [place] Calcium [Mass/Vol] 9.4 mg/dL Normal 8.5-10.2 [facility] Comment on above: Order Comment: Speci men Type: BLOOD SPECIMEN Ordering Facility: [facility] Address: [address] [place] [address] Performed By: #### 5 5454-3 #### [facility] CLIA [id number] [address] [place] [address] [place] Chloride [Moles/Vol] 106 mmol/L Normal 98-[address] [facility] Comment on above: Order Comment: Speci men Type: BLOOD SPECIMEN Ordering Facility: [facility] Address: [address] [place] [address] Performed By: #### 5 5454-3 #### [facility] CLIA [id number] [address] [place] [address] [place] CO2 [Moles/Vol] 22 mmol/L Normal 22-30 [facility] Comment on above: Order Comment: Speci men Type: BLOOD SPECIMEN Ordering Facility: [facility] Address: [address] [place] [address] Performed By: #### 5 5454-3 #### [facility] CLIA [id number] [address] [place] [address] [place] Creatinine [Mass/Vol] 0.69 mg/dL Low 0.73-1.22 [facility] Comment on above: Order Comment: Michaela adams Type: BLOOD SPECIMEN Ordering Facility: [facility] Address: [address] [place] [address] Performed By: #### 5 5454-3 #### [facility] [facility] CLIA [id number] [address] [place] [address] [place] Creatinine and Glomerular filtration rate.predicted panel (S/P/Bld) 128 mL/min/1.73m??? Normal >=60 [facility] Comment on above: Order Comment: Michaela adams Type: BLOOD SPECIMEN Ordering Facility: [facility] Address: [address] [place] [address] Result Comment: Daniela mated Glomerular Filtration Rate [...] GFR. Performed By: #### 5 5454-3 #### [facility] CLIA [id number] [address] [place] [address] [place] Glucose [Mass/Vol] 75 mg/dL Normal 74-99 [facility] Comment on above: Order Comment: Michaela adams Type: BLOOD SPECIMEN Ordering Facility: [facility] Address: [address] [place] [address] Result Comment: The [place] Diabetes Association (ADA) provides guidance for cutoff [...] Standards of Medical Care in Diabetes 2016, [place] Diabetes Association. Diabetes Care. 2016.39(Suppl 1). Performed By: #### 5 5454-3 #### [facility] CLIA [id number] [address] [place] [address] [place] Potassium [Moles/Vol] 4.1 mmol/L Normal 3.7-5.1 [facility] Comment on above: Order Comment: Speci men Type: BLOOD SPECIMEN Ordering Facility: [facility] Address: [address] [place] [address] Performed By: #### 5 5454-3 #### [facility] CLIA [id number] [address] [place] [address] [place] Sodium [Moles/Vol] 140 mmol/L Normal 136-144 [facility] Comment on above: Order Comment: Speci men Type: BLOOD SPECIMEN Ordering Facility: [facility] Address: [address] [place] [address] Performed By: #### 5 5454-3 #### [facility] CLIA [id number] [address] [place] [address] [place] Urea nitrogen [Mass/Vol] 8 mg/dL Low 9-24 [facility] Comment on above: Order Comment: Speci men Type: BLOOD SPECIMEN Ordering Facility: [facility] Address: [address] [place] [address] Performed By: #### 5 5454-3 #### [facility] CLIA [id number] [address] [place] [address] [place] CBC W Auto Differential pane l (Bld)on 12-02-2023 Basophils (Bld) [#/Vol] 10*3/uL Normal <0.11 [facility] Comment on above: Order Comment: Speci men Type: BLOOD SPECIMEN Ordering Facility: [facility] Address: [address] [place] [address] Performed By: #### 5 5454-3 #### [facility] CLIA [id number] [address] [place] [address] [place] Basophils/100 WBC (Bld) 0.2 % Normal C [facility] Comment on above: Order Comment: Speci men Type: BLOOD SPECIMEN Ordering Facility: [facility] Address: [address] [place] [address] Performed By: #### 5 5454-3 #### [facility] CLIA [id number] [address] [place] [address] [place] Differential cell count method Nom (Bld) Auto Normal [facility] Comment on above: Order Comment: Speci men Type: BLOOD SPECIMEN Ordering Facility: [facility] Address: [address] [place] [address] Performed By: #### 5 5454-3 #### [facility] CLIA [id number] [address] [place] [address] [place] Eosinophils (Bld) [#/Vol] 10*3/uL Normal <0.46 [facility] Comment on above: Order Comment: Speci men Type: BLOOD SPECIMEN Ordering Facility: [facility] Address: [address] [place] [address] Performed By: #### 5 5454-3 #### [facility] CLIA [id number] [address] [place] [address] [place] Eosinophils/100 WBC (Bld) 0.0 % Normal [facility] Comment on above: Order Comment: Speci men Type: BLOOD SPECIMEN Ordering Facility: [facility] Address: [address] [place] [address] Performed By: #### 5 5454-3 #### [facility] CLIA [id number] [address] [place] [address] [place] Erythrocyte distribution width (RBC) [Ratio] 13.9 % Normal 11.5-15.0 [facility] Comment on above: Order Comment: Speci men Type: BLOOD SPECIMEN Ordering Facility: [facility] Address: [address] [place] [address] Performed By: #### 5 5454-3 #### [facility] CLIA [id number] [address] [place] [address] [place] Hematocrit (Bld) [Volume fraction] 39.8 % Normal 39.0-51.0 [facility] Comment on above: Order Comment: Speci men Type: BLOOD SPECIMEN Ordering Facility: [facility] Address: [address] [place] [address] Performed By: #### 5 5454-3 #### [facility] CLIA [id number] [address] [place] [address] [place] Hemoglobin (Bld) [Mass/Vol] 12.5 g/dL Low 13.0-17.0 [facility] Comment on above: Order Comment: Speci men Type: BLOOD SPECIMEN Ordering Facility: [facility] Address: [address] [place] [address] Performed By: #### 5 5454-3 #### [facility] CLIA [id number] [address] [place] [address] [place] Immature granulocytes (Bld) [#/Vol] 10*3/uL Normal <0.10 [facility] Comment on above: Order Comment: Speci men Type: BLOOD SPECIMEN Ordering Facility: [facility] Address: [address] [place] [address] Performed By: #### 5 5454-3 #### [facility] CLIA [id number] [address] [place] [address] [place] Immature granulocytes/100 WBC (Bld) 0.3 % Normal [facility] Comment on above: Order Comment: Speci men Type: BLOOD SPECIMEN Ordering Facility: [facility] Address: [address] [place] [address] Performed By: #### 5 5454-3 #### [facility] CLIA [id number] [address] [place] [address] [place] Lymphocytes (Bld) [#/Vol] 2.07 10*3/uL Normal 1.00-4.00 [facility] Comment on above: Order Comment: Speci men Type: BLOOD SPECIMEN Ordering Facility: [facility] Address: [address] [place] [address] Performed By: #### 5 5454-3 #### [facility] CLIA [id number] [address] [place] [address] [place] Lymphocytes/100 WBC (Bld) 34.5 % Normal [facility] Comment on above: Order Comment: Speci men Type: BLOOD SPECIMEN Ordering Facility: [facility] Address: [address] [place] [address] Performed By: #### 5 5454-3 #### [facility] CLIA [id number] [address] [place] [address] [place] MCH (RBC) [Entitic mass] 25.4 pg Low 26.0-34.0 [facility] Comment on above: Order Comment: Speci men Type: BLOOD SPECIMEN Ordering Facility: [facility] Address: [address] [place] [address] Performed By: #### 5 5454-3 #### [facility] CLIA [id number] [address] [place] [address] [place] MCHC (RBC) [Mass/Vol] 31.4 g/dL Normal 30.5-36.0 [facility] Comment on above: Order Comment: Speci men Type: BLOOD SPECIMEN Ordering Facility: [facility] Address: [address] [place] [address] Performed By: #### 5 5454-3 #### [facility] CLIA [id number] [address] [place] [address] [place] MCV (RBC) [Entitic vol] 80.7 fL Normal 80.0-100.0 C [facility] Comment on above: Order Comment: Speci men Type: BLOOD SPECIMEN Ordering Facility: [facility] Address: [address] [place] [address] Performed By: #### 5 5454-3 #### [facility] CLIA [id number] [address] [place] [address] [place] Monocytes (Bld) [#/Vol] 0.56 10*3/uL Normal <0.87 [facility] Comment on above: Order Comment: Speci men Type: BLOOD SPECIMEN Ordering Facility: [facility] Address: [address] [place] [address] Performed By: #### 5 5454-3 #### [facility] CLIA [id number] [address] [place] [address] [place] Monocytes/100 WBC (Bld) 9.3 % Normal C [facility] Comment on above: Order Comment: Speci men Type: BLOOD SPECIMEN Ordering Facility: [facility] Address: [address] [place] [address] Performed By: #### 5 5454-3 #### [facility] CLIA [id number] [address] [place] [address] [place] Neutrophils (Bld) [#/Vol] 3.34 10*3/uL Normal 1.45-7.50 [facility] Comment on above: Order Comment: Speci men Type: BLOOD SPECIMEN Ordering Facility: [facility] Address: [address] [place] [address] Performed By: #### 5 5454-3 #### [facility] CLIA [id number] [address] [place] [address] [place] Neutrophils/100 WBC (Bld) 55.7 % Normal [facility] Comment on above: Order Comment: Speci men Type: BLOOD SPECIMEN Ordering Facility: [facility] Address: [address] [place] [address] Performed By: #### 5 5454-3 #### [facility] CLIA [id number] [address] [place] [address] [place] Nucleated RBC (Bld) [#/Vol] 10*3/uL Normal <0.01 [facility] Comment on above: Order Comment: Speci men Type: BLOOD SPECIMEN Ordering Facility: [facility] Address: [address] [place] [address] Performed By: #### 5 5454-3 #### [facility] CLIA [id number] [address] [place] [address] [place] Nucleated RBC/100 WBC (Bld) [Ratio] 0.0 /100 WBC Normal [facility] Comment on above: Order Comment: Speci men Type: BLOOD SPECIMEN Ordering Facility: [facility] Address: [address] [place] [address] Performed By: #### 5 5454-3 #### [facility] CLIA [id number] [address] [place] [address] [place] Platelet mean volume (Bld) [Entitic vol] 9.2 fL Normal 9.0-12.7 [facility] Comment on above: Order Comment: Speci men Type: BLOOD SPECIMEN Ordering Facility: [facility] Address: [address] [place] [address] Performed By: #### 5 5454-3 #### [facility] CLIA [id number] [address] [place] [address] [place] Platelets (Bld) [#/Vol] 310 10*3/uL Normal 150-400 [facility] Comment on above: Order Comment: Speci men Type: BLOOD SPECIMEN Ordering Facility: [facility] Address: [address] [place] [address] Performed By: #### 5 5454-3 #### [facility] CLIA [id number] [address] [place] [address] [place] RBC (Bld) [#/Vol] 4.93 10*6/uL Normal 4.20-6.00 [facility] Comment on above: Order Comment: Speci men Type: BLOOD SPECIMEN Ordering Facility: [facility] Address: [address] [place] [address] Performed By: #### 5 5454-3 #### [facility] CLIA [id number] [address] [place] [address] [place] WBC (Bld) [#/Vol] 6.00 10*3/uL Normal 3.70-11.00 [facility] Comment on above: Order Comment: Speci men Type: BLOOD SPECIMEN Ordering Facility: [facility] Address: [address] [place] [address] Performed By: #### 5 5454-3 #### [facility] CLIA [id number] [address] [place] [address] [place] CNOVon 12-02-2023 CNOV Office Visit (FAMPWS ) -------- LEVY TODD ([id number]) 1995 M Date Time Provider Department 12/02/23 10:40 AM TURNER BUNDY FAMPWS During your visit today, we recorded the following information about you: Pulse Blood pressure Weight 80/minute 122/72 146.5 kg Turner Bundy MD 12/02/2023 11:44 AM Signed Patient presents with: ER F/U HPI: Patient presents today for office visit for followup. HOSPITAL/ER FOLLOW UP: Reason for visit: palpitations Which facility: [facility] Date of visit: 11/27/23 Diagnosis: palpitations Testing [...] was up. He is now in a care home. Has some bruising on his chest wall. [...] Never Used (more content not included)... Normal [facility] Ferritin SerPl-mCncon 2023 Ferritin [Mass/Vol] 77.4 ng/mL Normal 30.3-565.7 [facility] Comment on above: Order Comment: Speci men Type: BLOOD SPECIMEN Ordering Facility: [facility] Address: [address] [place] [address] Performed By: #### 5 5454-3 #### [facility] CLIA [id number] [address] [place] [address] [place] Folate SerPl-mCncon 12-02-19 Folate [Mass/Vol] 8.1 ng/mL Normal >4.7 [facility] Comment on above: Order Comment: Michaela adams Type: BLOOD SPECIMEN Ordering Facility: [facility] Address: [address] [place] [address] Performed By: #### 5 5454-3 #### [facility] CLIA [id number] [address] [place] [address] [place] HbA1c (Bld)on 12-02-2023 Average glucose Estimated from glycated hemoglobin (Bld) [Mass/Vol] 114 mg/dL Normal [facility] Comment on above: Order Comment: Michaela adams Type: BLOOD SPECIMEN Ordering Facility: [facility] Address: [address] [place] [address] Result Comment: eAG: (Estimated average glucose) is a calculated value from HgbA1c and is public health representative of the average blood glucose level in the last 2-3 month period. Performed By: #### 5 5454-3 #### [facility] CLIA [id number] [address] [place] [address] [place] [facility] HbA1c (Bld) [Mass fraction] 5.6 % Normal 4.3-5.6 [facility] Comment on above: Order Comment: Michaela adams Type: BLOOD SPECIMEN Ordering Facility: [facility] Address: [address] [place] [address] Result Comment: Amer [place] Diabetes Association guidelines indicate that patients with HgbA1c in the range 5.7-6.4% are at increased risk for development of diabetes, and intervention by lifestyle modification may be beneficial. HgbA1c greater or equal to 6.5% is considered diagnostic of diabetes. Performed By: #### 5 5454-3 #### [facility] CLIA [id number] [address] [place] [address] [place] Iron and Iron binding capaci ty panelon 12-02-2023 Iron [Mass/Vol] 44 ug/dL Normal 41-186 [facility] Comment on above: Order Comment: Speci men Type: BLOOD SPECIMEN Ordering Facility: [facility] Address: [address] [place] [address] Performed By: #### 5 5454-3 #### [facility] CLIA [id number] [address] [place] [address] [place] Iron binding capacity [Mass/Vol] 380 ug/dL Normal 232-386 [facility] Comment on above: Order Comment: Speci men Type: BLOOD SPECIMEN Ordering Facility: [facility] Address: [address] [place] [address] Performed By: #### 5 5454-3 #### [facility] CLIA [id number] [address] [place] [address] [place] Iron/TIBC [Molar ratio] 11.6 % Low 15.0-57.0 C [facility] Comment on above: Order Comment: Speci men Type: BLOOD SPECIMEN Ordering Facility: [facility] Address: [address] [place] [address] Performed By: #### 5 5454-3 #### [facility] CLIA [id number] [address] [place] [address] [place] Vit B12 [facility] 024 Cobalamin (Vitamin B12) [Mass/Vol] 629 pg/mL Normal 232-1245 [facility] Comment on above: Order Comment: Speci men Type: BLOOD SPECIMEN Ordering Facility: [facility] Address: [address] [place] [address] Performed By: #### 5 5454-3 #### [facility] CLIA [id number] [address] [place] [address] [place] CNPAna 11-28-2023 CNPN Telephone (FAMPWS) -------- LEVY TODD ([id number]) 1995 M Date Time Provider Department 11/28/23 [...] was tapping his chest hard. Went to [facility] ER. CXR, EKG, and labs showed nothing. [...] RPFT - Fully Assessed Reason for Visit: [facility] ER f/u 11-27-23 [Other] Prescriptions as of [...] Encounter Status:Closed by Enriqueta DAVILA on 11/28/23 Normal [facility] 12 Lead EKGon 11-27-2023 12 Lead EKG [facility] [address] [place] [address] 12 Lead EKG 11/27/23 1429 MR#: [id number] Acct: [id number] Name: LEVY TODD Rep #: [id number] : 1995 28 From: Leland Butler MD [...] Normal ECG Confirmed by TODD LAI, LELAND ([id number]), assistant film editor PREET LEON ([id number]) on 11/29/2023 6:31:04 AM Referred By: Confirmed By:LELAND BUTLER MD 11/29/23 0631 Date Leland Butler MD CC: Dr. Alex Membreno DO; Dr. Turner Bundy MD Signed Normal [facility] Basic Metabolic Profile (BMP )on 11-27-2023 BUN/CRE 18.3 RATIO Normal 10-20 [facility] Comment on above: Order Comment: 1Y Performed By: #### L 501.9520, L501.5425, L500.2500, L501.5200, L100.0100 ####[facility] [address] [place], [address] [place],Total 9.4 mg/dL Normal 8.5-10.1 [facility] Comment on above: Order Comment: 1Y Performed By: #### L 501.9520, L501.5425, L500.2500, L501.5200, L100.0100 ####[facility] [address] [place], [address] Chloride [Moles/Vol] 109 mmol/L High 98-107 [facility] Comment on above: Order Comment: 1Y Performed By: #### L 501.9520, L501.5425, L500.2500, L501.5200, L100.0100 ####[facility] [address] [place], [address] CO2 [Moles/Vol] 26.0 mmol/L Normal 21.0-32.0 [facility] Comment on above: Order Comment: 1Y Performed By: #### L 501.9520, L501.5425, L500.2500, L501.5200, L100.0100 ####[facility] [address] [place], [address] Creatinine [Mass/Vol] 0.77 mg/dL Normal 0.70-1.30 [facility] Comment on above: Order Comment: 1Y Result Comment: The validity of the calculated GFR GFRAA in patients over 70 years has not been determined. Clinical correlation is essential. Performed By: #### L 501.9520, L501.5425, L500.2500, L501.5200, L100.0100 ####[facility] [address] [place], [address] ECRCL 199.25 ml/min Normal [facility] Comment on above: Order Comment: 1Y Performed By: #### L 501.9520, L501.5425, L500.2500, L501.5200, L100.0100 ####[facility] [address] [place], [address] EST GFR - AA 153 mL/min Normal >60 [facility] Comment on above: Order Comment: 1Y Result Comment: Afri can Nigerien GFR Calc Performed By: #### L 501.9520, L501.5425, L500.2500, L501.5200, L100.0100 ####[facility] [address] [place], [address] GAP 6 Normal 5-15 [facility] Comment on above: Order Comment: 1Y Performed By: #### L 501.9520, L501.5425, L500.2500, L501.5200, L100.0100 ####[facility] [address] [place], [address] GFR/1.73 sq M.predicted among non-blacks MDRD (S/P/Bld) [Vol rate/Area] 127 mL/min/{1.73_m2} Normal >60 [facility] Comment on above: Order Comment: 1Y Result Comment: Non- GFR Calc Performed By: #### L 501.9520, L501.5425, L500.2500, L501.5200, L100.0100 ####[facility] [address] [place], [address] Glucose [Mass/Vol] 133 mg/dL High 74-106 [facility] Comment on above: Order Comment: 1Y Result Comment: Fast ing Glucose result greater than or equal to 126 mg/dL suggests DIABETES MELLITUS per A.D.A. criteria. Performed By: #### L 501.9520, L501.5425, L500.2500, L501.5200, L100.0100 ####[facility] [address] [place], [address] Potassium [Moles/Vol] 3.4 mmol/L Low 3.5-5.1 [facility] Comment on above: Order Comment: 1Y Performed By: #### L 501.9520, L501.5425, L500.2500, L501.5200, L100.0100 ####[facility] [address] [place], [address] Sodium [Moles/Vol] 141 mmol/L Normal 136-145 [facility] Comment on above: Order Comment: 1Y Performed By: #### L 501.9520, L501.5425, L500.2500, L501.5200, L100.0100 ####[facility] [address] [place], [address] Urea nitrogen [Mass/Vol] 14 mg/dL Normal 7-18 [facility] Comment on above: Order Comment: 1Y Performed By: #### L 501.9520, L501.5425, L500.2500, L501.5200, L100.0100 ####[facility] [address] [place], [address] CBC W/Diff, Automatedon 09-2 Absolute Lymph 1.40 X10 3/uL Normal 0.83-4.51 [facility] Comment on above: Performed By: #### L 501.9520, L501.5425, L500.2500, L501.5200, L100.0100 ####[facility] [address] [place], [address] Absolute Neut 4.3 X10 3/uL Normal 2.0-7.7 [facility] Comment on above: Performed By: #### L 501.9520, L501.5425, L500.2500, L501.5200, L100.0100 ####[facility] [address] [place], [address] Basophils/100 WBC (Bld) 0.0 % Normal 0-1 [facility] Comment on above: Performed By: #### L 501.9520, L501.5425, L500.2500, L501.5200, L100.0100 ####[facility] [address] [place], [address] Eosinophils/100 WBC (Bld) 0.0 % Normal 0-5 [facility] Comment on above: Performed By: #### L 501.9520, L501.5425, L500.2500, L501.5200, L100.0100 ####[facility] [address] [place], [address] Erythrocyte distribution width (RBC) [Ratio] 13.3 % Normal 11.6-14.6 [facility] Comment on above: Performed By: #### L 501.9520, L501.5425, L500.2500, L501.5200, L100.0100 ####[facility] [address] [place], [address] Hematocrit (Bld) [Volume fraction] 40.1 % Normal 40-54 [facility] Comment on above: Performed By: #### L 501.9520, L501.5425, L500.2500, L501.5200, L100.0100 ####[facility] [address] [place], [address] Hemoglobin (Bld) [Mass/Vol] 12.9 g/dL Low 13.0-16.5 [facility] Comment on above: Performed By: #### L 501.9520, L501.5425, L500.2500, L501.5200, L100.0100 ####[facility] [address] [place], [address] IG% 0.500 Normal 0.0-0.9 [facility] Comment on above: Result Comment: IG% - Immature Granulocytes (promyelocytes, myelocytes and metamyelocytes) > 1% indicates that a LEFT SHIFT is Present. Performed By: #### L 501.9520, L501.5425, L500.2500, L501.5200, L100.0100 ####[facility] [address] [place], [address] Lymphocytes/100 WBC (Bld) 22.9 % Normal 19-41 [facility] Comment on above: Performed By: #### L 501.9520, L501.5425, L500.2500, L501.5200, L100.0100 ####[facility] [address] [place], [address] MCH (RBC) [Entitic mass] 25.4 pg Low 27.0-32.0 [facility] Comment on above: Performed By: #### L 501.9520, L501.5425, L500.2500, L501.5200, L100.0100 ####[facility] [address] [place], [address] MCHC (RBC) [Mass/Vol] 32.2 g/dL Normal 32-36 [facility] Comment on above: Performed By: #### L 501.9520, L501.5425, L500.2500, L501.5200, L100.0100 ####[facility] [address] [place], [address] MCV (RBC) [Entitic vol] 78.9 fL Low 80-94 [facility] Comment on above: Performed By: #### L 501.9520, L501.5425, L500.2500, L501.5200, L100.0100 ####[facility] [address] [place], [address] Monocytes/100 WBC (Bld) 6.2 % Normal 0-10 [facility] Comment on above: Performed By: #### L 501.9520, L501.5425, L500.2500, L501.5200, L100.0100 ####[facility] [address] [place], [address] Neutrophils/100 WBC (Bld) 70.4 % High 47-70 [facility] Comment on above: Performed By: #### L 501.9520, L501.5425, L500.2500, L501.5200, L100.0100 ####[facility] [address] [place], [address] Nucleated RBC (Bld) [#/Vol] 0 10*3/uL Normal 0-5 [facility] Comment on above: Performed By: #### L 501.9520, L501.5425, L500.2500, L501.5200, L100.0100 ####[facility] [address] [place], [address] Platelet mean volume (Bld) [Entitic vol] 8.7 fL Normal 6.2-12.0 [facility] Comment on above: Performed By: #### L 501.9520, L501.5425, L500.2500, L501.5200, L100.0100 ####[facility] [address] [place], [address] Platelets (Bld) [#/Vol] 298 10*3/uL Normal 150-450 [facility] Comment on above: Performed By: #### L 501.9520, L501.5425, L500.2500, L501.5200, L100.0100 ####[facility] [address] [place], [address] RBC (Bld) [#/Vol] 5.08 10*6/uL Normal 4.6-6.2 [facility] Comment on above: Performed By: #### L 501.9520, L501.5425, L500.2500, L501.5200, L100.0100 ####[facility] [address] [place], [address] RDW SD 37.8 fl Normal 35.1-43.9 [facility] Comment on above: Performed By: #### L 501.9520, L501.5425, L500.2500, L501.5200, L100.0100 ####[facility] [address] [place], [address] WBC (Bld) [#/Vol] 6.1 10*3/uL Normal 4.4-11.0 [facility] Comment on above: Performed By: #### L 501.9520, L501.5425, L500.2500, L501.5200, L100.0100 ####[facility] [address] [place], [address] Chest 1 View (Portable)on Chest 1 View (Portable) [facility] Imaging Services [address] [place] [address] Chest 1 View (Portable) MR#: [id number] Acct: [id number] Name: LEVY TODD Rep #: [id number] : 1995 M 28 From: Colt Rudd PCP: Dr. Turner Bundy MD Status: [facility] ER Study: Chest 1 View (Portable) Date of Exam: 11/27/23 Exam# [id number] Ordering Dr: Alex Membreno DO [id number] EXAM: XR CHEST, 1 VIEW CLINICAL INDICATION: chest pain TECHNIQUE: Frontal view of the chest. COMPARISON: 07.31.23 FINDINGS: LUNGS AND PLEURAL SPACES: Unremarkable. No consolidation or edema. No pneumothorax. No effusion. HEART: Unremarkable. Cardiac silhouette not enlarged. MEDIASTINUM: Central airways and mediastinal contour are unremarkable. BONES/JOINTS: Unremarkable. No acute fracture. SOFT TISSUES: Unremarkable. RAD/Chest 1 View (Portable) IMPRESSION: No radiographic evidence of acute cardiopulmonary disease. Electronically Signed: Colt Zambrano MD at 15:12 EDT Reading Location ID and State: [facility] / [place] , Service support , CC: Dr. Alex Membreno DO; Dr. Turner Bundy MD Tool Maker: Signed Normal [facility] Emergency Department Summary on 11-27-2023 Emergency Department Summary [place] [facility] Medical Records Department [address] [place] [address] Emergency Department Summary 11/27/23 MR#: [id number] Acct: [id number] Name: LEVY TODD Rep #: [id number] : 1995 28 From: Alex Membreno DO [...] fevers or chills. Patient denies any diaphoresis. [facility] Medical History Paranoia PTSD (post-traumatic stress [...] 11/27/23 16:26 (more content not included)... Normal [facility] L501.4020on 11-27-2023 TROPONIN-I HS 5 pg/mL Normal 3.0-78.0 [facility] Comment on above: Result Comment: Keara mckenzie Note: New Test Units and Gender Specific Reference Ranges. For more information see Policy Stat Procedure [place] High Sensitivity Troponin (TNIH) and attachments. Performed By: #### L 501.4020 ####[facility] [address] [place], [address] L501.5425on 11-27-2023 TROPONIN-I HS 4 pg/mL Normal 3.0-78.0 [facility] Comment on above: Order Comment: 1Y Result Comment: Keara mckenzie Note: New Test Units and Gender Specific Reference Ranges. For more information see Policy Stat Procedure [place] High Sensitivity Troponin (TNIH) and attachments. Performed By: #### L 501.9520, L501.5425, L500.2500, L501.5200, L100.0100 ####[facility] [address] [place], [place], [address] Magnesiumon 11-27-2023 Magnesium [Mass/Vol] 1.9 mg/dL Normal 1.6-2.6 [facility] Comment on above: Order Comment: 1Y Performed By: #### L 501.9520, L501.5425, L500.2500, L501.5200, L100.0100 ####[facility] [address] [place], [place], [address] Thyroid Stim Hormone (TSH)on 11-27-2023 TSH 0.904 uIU/mL Normal 0.358-3.740 [facility] Comment on above: Order Comment: 1Y Performed By: #### L 501.9520, L501.5425, L500.2500, L501.5200, L100.0100 ####[facility] [address] [place], [place], [address] [facility] (EVERWS) -------- LEVY TODD ([id number]) 1995 Date Time Provider Department 11/17/23 PAMELA NIEVES During your visit today, we recorded the following information about you: Pamela Nieves APRN.[employer] 11/17/2023 1:14 PM Signed Please let patient know that his PFT's were inconclusive and his SOB may be related to his size. If he would like I can send him to pulmonary for further evaluation. Pam Gray MA 11/17/2023 2:56 PM Signed Pt mother notified. She would like him to see Pulmonary. COLT Santoyo Jacqueline A, APRN.[employer] 11/17/2023 5:09 PM Signed Please facilitate scheduling of pulmonary consult. Patient lives in a care home. Katina Shannon 11/17/2023 6:10 PM Signed Called [...] Diagnosis:Chronic cough [R05.3] Order(s):CONSULT TO PULMONARY MEDICINE [[id number]] Order #: [id number]: [id number] Prescriptions as of 11/17/2023 - albuterol [...] Status:Closed by KATINA SHANNON on 11/17/23 Normal [facility] LUNG VOLUMESon 11-14-2023 ERV BOX (L) 0.88 L [facility] ERV PREDICTED (L) 1.75 L/S [facility] FEF25% POST (L/S) 6.17 L[facility] FEF25% PRE (L/S) 7.09 L[facility] OJV44-61% LLN (L/S) 2.88 L/S [facility] XKU56-08% POST (L/S) 0.83 L/S [facility] NRQ40-22% PRE (L/S) 2.73 L/S [facility] YHI89-51% PREDICTED (L/S) 4.65 L/S [facility] FEF75% LLN (L/S) 1.03 L[facility]S [facility] FEF75% POST (L/S) 0.17 L[facility]S [facility] FEF75% PRE (L/S0 1.11 L[facility] FEF75% PREDICTED (L/S) 1.95 L/S [facility] FEF75% ULN (L/S) 3.49 L/S [facility] FET POST (S) 4.56 S [facility] FET PRE (S) 5.63 S [facility] FEV1 LLN (L) 3.38 L [facility] FEV1 PRE (L) 3.12 L [facility] FEV1 PREDICTED (L) 4.34 L [facility] FEV1 ULN (L) 5.26 L [facility] FEV1/FVC LLN (%) 73 % [facility] FEV1/FVC POST (%) 84 % [facility] FEV1/FVC PRE (%) 78 % [facility] FEV1/FVC PREDICTED (%) 83 % [facility] FEV1_POST (L) 2.68 L [facility] FRC Gas (L) 2.19 L [facility] FVC LLN (L) 4.08 L [facility] FVC POST (L) 3.19 L [facility] FVC PRE (L) 3.99 L [facility] FVC PREDICTED (L) 5.24 L [facility] FVC ULN (L) 6.42 L [facility] IC BOX (L) 2.08 L [facility] IC PREDICTED (L) 3.49 L/S [facility] PEF LLN (L/S) 8.06 L/S [facility] PEF POST (L/S) 7.65 L/S [facility] PEF PRE (L/S) 7.52 L/S [facility] PEF ULN (L/S) 12.80 L/S [facility] RV Box PREDICTED (L) 1.67 L [facility] RV Gas (L) 1.91 L [facility] RV Gas PREDICTED (L) 1.67 L [facility] RV/TLC Box PREDICTED (%) 23 % [facility] RV/TLC Gas (%) 41 % [facility] RV/TLC Gas PREDICTED (%) 23 L [facility] SVC LLN (L) 4.08 L/S [facility] SVC PREDICTED (L) 5.24 L/S [facility] SVC ULN (L) 6.42 L/S [facility] TLC Box PREDICTED (L) 7.06 L [facility] TLC Gas (L) 4.69 L [facility] TLC Gas PREDICTED (L) 7.06 L [facility] VC (L) BOX 2.96 L [facility] No Panel Informationon 11-13 [facility] [address] [facility] [place] [address] Test Date: 2023-11-14 Pat Name: LEVY TODD Department: Room: 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 PULMONARY FUNCTION LAB [facility] -------- LEVY TODD ([id number]) 1995 M Date Time Provider Department 11/11/23 [facility] During your visit today, we recorded the following information about you: Pamela Nieves APRN.CNP 11/11/2023 10:50 AM Signed Please let patient know their xray is normal. Pam Gray MA 11/11/2023 12:05 PM Signed Message left for pt to call back for results. Pam Caro MA, MA 11/14/2023 10:29 AM Signed Additional message left for pt to call back. COLT Santoyo Rilee, MA 11/15/2023 11:53 AM Signed Vigilixt message sent to pt notifying him office [...] Status:Closed by PAMELA NIEVES on 11/15/23 Normal [facility] XR Chest PA and Lateralon IMPRESSION: No definite acute radiographic abnormality. Tool Maker: [email or web address] Transcribe Date/Time: Nov 11 2023 10:45A Dictated by : JACLYN TURK MD This examination was interpreted and the report reviewed and electronically signed by: JACLYN TURK MD on Nov 11 2023 10:46AM [facility] DIVISION OF RADIOLOGY * * *Final [...] soft tissues: Unremarkable. DIVISION OF RADIOLOGY Provider, [facility] Mckenzie [facility] - 11/11/2023 * * *Final Report* * [...] IMPRESSION IMPRESSION: No definite acute radiographic abnormality. Tool Maker: PSCB Transcribe Date/Time: Nov 11 2023 10:45A Dictated by : JACLYN TURK MD This examination was interpreted and the report reviewed and electronically signed by: JACLYN TURK MD on Nov 11 2023 10:46AM EST [facility] XR Chest PA and LateralOrder ed By: Ccf Provider on 11-11-2023 [facility] CNOVon 11-10-2023 CNOV Office Visit (FAMWS ) -------- LEVY TODD ([id number]) 1995 M Date Time Provider Department 11/10/23 2:40 PM [facility] During your visit today, we recorded the following information about you: Pulse Respiration Blood pressure Weight 89/minute 16/minute 117/76 147.4 kg Pamela Nieves, MASH FILTER PRESS OPERATOR.[employer] 11/10/2023 2:29 PM Signed Chief Complaint Patient [...] mouth e (more content not included)... Normal [facility] XR CHEST 2V FRONTAL/LATon XR CHEST 2V [...] Unremarkable. IMPRESSION: No definite acute radiographic abnormality. Tool Maker: PSCB Transcribe Date/Time: Nov 11 2023 10:45A Dictated by : JACLYN TURK MD This examination was interpreted and the report reviewed and electronically signed by: JACLYN TURK MD on Nov 11 2023 10:46AM EST [id number] Normal [facility] XR Chest PA and Lateralon Radiology Study observation (narrative) [facility] CNOVon 10-24-2023 CNOV Office Visit (WSTR ) -------- LEVY TODD ([id number]) 1995 M Date Time Provider Department 10/24/23 3:30 PM WOO VARGAS [facility] During your visit today, we recorded the following information about you: Temperature Pulse Respiration Blood pressure 98.8 degrees 80/minute 18/minute 134/78 Weight 144.9 kg Woo Vargas APRN.CNP 10/24/2023 3:50 PM Signed Subjective HPI HPI [...] Grandmother Hypertension (more content not included)... Normal [facility] STREP A MOLECULAR (POC)on Procedural Control Valid [facility] Strep A (POCT) Negative Negative [facility] CNOVon 09-19-2023 CNOV Office Visit (FAMPWS ) -------- LEVY TODD ([id number]) 1995 M Date Time Provider Department 09/19/23 3:00 PM ANGELINA CLAUDIO FAMPWS During your visit today, we recorded the following information about you: Temperature Pulse Blood pressure Weight 98.5 degrees 110/minute 120/75 141.5 kg Angelina Claudio, HIRAL.[facility] 09/19/2023 3:28 PM Signed This is a [...] Vaping Use (more content not included)... Normal [facility] XR Chest PA and Lateralon IMPRESSION: No acute radiographic abnormality. Tool Maker: PSCChad Transcribe Date/Time: Aug 25 2023 1:37P Dictated by : ANTONIETA DAVIDSON MD This examination was interpreted and the report reviewed and electronically signed by: ANTONIETA DAVIDSON MD on Aug 25 2023 1:37PM [facility] DIVISION OF RADIOLOGY * * *Final [...] Unremarkable. DIVISION OF RADIOLOGY Provider, Darleen Mckenzie Ball - 08/25/2023 * * *Final Report* * [...] Unremarkable. IMPRESSION IMPRESSION: No acute radiographic abnormality. Tool Maker: PSCB Transcribe Date/Time: Aug 25 2023 1:37P Dictated by : ANTONIETA DAVIDSON MD This examination was interpreted and the report reviewed and electronically signed by: ANTONIETA DAVIDSON MD on Aug 25 2023 1:37PM EST [facility] Radiology Study observation (narrative) [facility] XR Chest PA and LateralOrder ed By: Ccf Provider on 08-25-2023 [facility] CBC W Auto Differential pane l (Bld)on 07-14-2023 Basophils (Bld) [#/Vol] [facility] Basophils/100 WBC (Bld) 0.1 % C [facility] Differential cell count method Nom (Bld) Auto [facility] Eosinophils (Bld) [#/Vol] [facility] Eosinophils/100 WBC (Bld) 0.0 % [facility] Erythrocyte distribution width (RBC) [Ratio] 13.9 % 11.5 - 15.0 % [facility] Hematocrit (Bld) [Volume fraction] 40.5 % 39.0 - 51.0 % [facility] Hemoglobin (Bld) [Mass/Vol] 12.8 g/dL Low 13.0 - 17.0 g/dL [facility] Immature granulocytes (Bld) [#/Vol] 0.04 10*3/uL [facility] Immature granulocytes/100 WBC (Bld) 0.5 % [facility] Interpretation and review of laboratory results Abnormal [facility] Lymphocytes (Bld) [#/Vol] 2.25 10*3/uL [facility] Lymphocytes/100 WBC (Bld) 27.4 % [facility] MCH (RBC) [Entitic mass] 26.7 pg 26.0 - 34.0 pg [facility] MCHC (RBC) [Mass/Vol] 31.6 g/dL 30.5 - 36.0 g/dL [facility] MCV (RBC) [Entitic vol] 84.6 fL 80.0 - 100.0 fL [facility] Monocytes (Bld) [#/Vol] 0.52 10*3/uL [facility] Monocytes/100 WBC (Bld) 6.3 % C [facility] Neutrophils (Bld) [#/Vol] 5.39 10*3/uL [facility] Neutrophils/100 WBC (Bld) 65.7 % [facility] Nucleated RBC (Bld) [#/Vol] NINF [facility] Nucleated RBC/100 WBC (Bld) [Ratio] 0.0 % /100 WBC [facility] Platelet mean volume (Bld) [Entitic vol] 9.1 fL 9.0 - 12.7 fL [facility] Platelets (Bld) [#/Vol] 351 10*3/uL [facility] RBC (Bld) [#/Vol] 4.79 10*6/uL 4.20 - 6.0 0 m/uL [facility] WBC (Bld) [#/Vol] 8.21 10*3/uL [facility] Cobalamin (Vitamin B12) [Mas s/Vol]on 07-14-2023 Interpretation and review of laboratory results Normal [facility] Comprehensive metabolic 2000 panelon 07-14-2023 Albumin [Mass/Vol] 4.3 g/dL 3.9 - 4.9 g/dL [facility] ALP [Catalytic activity/Vol] 87 U/L 38 - 113 U/L [facility] ALT [Catalytic activity/Vol] 24 U/L 10 - 54 U/L [facility] Anion gap [Moles/Vol] 9 mmol/L 9 - 18 mmol/L [facility] AST [Catalytic activity/Vol] 19 U/L 14 - 40 U/L [facility] Bilirubin [Mass/Vol] 0.2 mg/dL 0.2 - 1 .3 mg/dL [facility] Calcium [Mass/Vol] 9.7 mg/dL 8.5 - 10. 2 mg/dL [facility] Chloride [Moles/Vol] 104 mmol/L 97 - 10 5 mmol/L [facility] CO2 [Moles/Vol] 25 mmol/L 22 - 30 mmol/L [facility] Creatinine [Mass/Vol] 0.76 mg/dL 0.73 - 1.22 mg/dL [facility] GFR/1.73 sq M.predicted among non-blacks MDRD (S/P/Bld) [Vol rate/Area] 125 mL/min/{1.73_m2} - PINF [facility] Comment on above: Estimated Glomerular Filtration Rate [...] [Mass/Vol] 99 mg/dL 74 - 99 mg/dL [facility] Comment on above: The [place] Diabete s Association (ADA) provides guidance for [...] Standards of Medical Care in Diabetes 2016, [place] Diabetes Association. Diabetes Care. 2016.39(Suppl 1). Potassium [Moles/Vol] 4.0 mmol/L 3.7 - 5.1 mmol/L [facility] Protein [Mass/Vol] 7.1 g/dL 6.3 - 8.0 g/dL [facility] Sodium [Moles/Vol] 138 mmol/L 136 - 144 mmol/L [facility] Urea nitrogen [Mass/Vol] 10 mg/dL 9 - 24 mg/dL [facility] Iron and Iron binding capaci ty panelon 07-14-2023 Interpretation and review of laboratory results Abnormal [facility] Iron [Mass/Vol] 43 ug/dL 41 - 186 ug/dL [facility] Iron binding capacity [Mass/Vol] 351 ug/dL 232 - 386 ug/dL [facility] Iron/TIBC [Molar ratio] 12.3 % Low 15.0 - 57.0 % [facility] LITHIUMon 07-14-2023 [place] [Moles/Vol] 0.8 mmol/L 0.6 - 1. 2 mmol/L [facility] Comment on above: Reference ranges and high/low indicator flags are provided as general guidelines only. The treating physician must determine appropriate target levels/dosing based on the specific clinical situation. [place] [Moles/Vol]on 2023 Interpretation and review of laboratory results Normal [facility] MAGNESIUMon 07-14-2023 Magnesium [Mass/Vol] 2.3 mg/dL 1.7 - 2 .3 mg/dL [facility] No Panel Informationon 07-13 Interpretation and review of laboratory results Normal [facility] VITAMIN B12on 07-14-2023 Cobalamin (Vitamin B12) [Mass/Vol] 551 pg/mL 232 - 1245 pg/mL [facility] Absolute lymphocyte countOrd ered By: Yennifer Will on 04-17-2023 Lymphocytes Auto (Unsp spec) [#/Vol] 1.63 10*3/uL 0.83-4.51 [facility] Automated lymphocyte count a s percentage of total leukocytesOrdered By: Yennifer Will on 04-17-2023 Lymphocytes/100 WBC Auto (Unsp spec) 22.8 % 19-41 [facility] Basophil percentageOrdered B y: Yennifer Will on 04-17-2023 Basophils/100 WBC (Bld) 0.1 % 0-1 [facility] Bilirubin [Mass/Vol] 0.20 mg/dL 0.20-1.00 [facility] Comment on above: For patients on eltr ombopag therapy, use of Dimension [place] TBIL is not recommended. Chloride [Moles/Vol] 110 mmol/L 98-107 [facility] Eosinophils/100 WBC (Bld) 0.0 % 0-5 [facility] Glucose [Mass/Vol] 114 mg/dL 74-106 [facility] Comment on above: Fasting Glucose resu lt from 100 to 125 mg/dL suggests IMPAIRED HOMEOSTASIS per A.D.A. criteria. Hemoglobin (Bld) [Mass/Vol] 12.0 g/dL 13.0-16.5 [facility] Monocytes/100 WBC (Bld) 8.0 % 0-10 [facility] Neutrophils (Bld) [#/Vol] 4.9 10*3/uL 2.0-7.7 [facility] Neutrophils/100 WBC (Bld) 68.8 % 47-70 [facility] Potassium [Moles/Vol] 3.8 mmol/L 3.5-5.1 [facility] Protein [Mass/Vol] 7.0 g/dL 6.4-8.2 [facility] Sodium [Moles/Vol] 139 mmol/L 136-145 [facility] WBC (Bld) [#/Vol] 7.1 10*3/uL 4.4-11.0 [facility] COVID-19 virus antigen assay Ordered By: Yennifer Will on 04-17-2023 SARS-CoV-2 (COVID-19) Ag IA.rapid Ql (Resp) [facility] Determination of erythrocyte mean corpuscular volume (MCV)Ordered By: Yennifer Will on 04-17-2023 MCV (RBC) [Entitic vol] 81.5 fL 80-94 [facility] Erythrocyte distribution wid th ratioOrdered By: Yennifer Will on 04-17-2023 Erythrocyte distribution width (RBC) [Ratio] 14.3 % 11.6-14.6 [facility] Erythrocyte distribution wid th standard deviationOrdered By: Yennifer Will on 04-17-2023 Erythrocyte distribution width (RBC) [Entitic vol] 42.2 fL 35.1-43.9 [facility] Hematocrit Auto (Bld) [Volum e fraction]Ordered By: Yennifer Will on 04-17-2023 Hematocrit (Bld) [Volume fraction] 38.7 % 40-54 [facility] Immature granulocytes/100 WB C Auto (Bld)Ordered By: Yennifer Will on 04-17-2023 Immature granulocytes/100 WBC (Bld) 0.300 % 0.0-0.9 [facility] Comment on above: IG% - Immature Granu locytes (promyelocytes, myelocytes and metamyelocytes) > 1% indicates that a LEFT SHIFT is Present. Laboratory - Chemistry and C hemistry - challengeOrdered By: Yennifer Will on 04-17-2023 Albumin/Globulin [Mass ratio] 0.9 {ratio} 0.9-2.4 [facility] ALP [Catalytic activity/Vol] 73 U/L 45-117 [facility] ALT [Catalytic activity/Vol] 38 U/L 16-61 [facility] CO2 [Moles/Vol] 24.0 mmol/L 21.0-32.0 [facility] Globulin (S) [Mass/Vol] 3.6 g/dL 2.2-4.2 [facility] Urea nitrogen/Creatinine [Mass ratio] 9.3 mg/mg 10-20 [facility] Laboratory - Drug toxicology Ordered By: Yennifer Will on 04-17-2023 Amphetamines Ql (U) Negative <1000 ng/mL [facility] Benzodiazepines Ql (U) Negative < 200 ng/mL [facility] Cannabinoids Screen Ql (U) Negative < 50 ng/mL [facility] Cocaine Ql (U) Negative < 300 ng/mL [facility] Opiates Ql (U) Positive < 300 ng/mL [facility] Laboratory - Hematology and Cell countsOrdered By: Yennifer Will on 04-17-2023 MCH (RBC) [Entitic mass] 25.3 pg 27.0-32.0 [facility] MCHC (RBC) [Mass/Vol] 31.0 g/dL 32-36 [facility] Nucleated RBC/100 WBC (Bld) [Ratio] 0 % 0-5 [facility] Platelet mean volume (Bld) [Entitic vol] 8.9 fL 6.2-12.0 [facility] Platelets (Bld) [#/Vol] 275 10*3/uL 150-450 [facility] No Panel InformationOrdered By: Yennifer Will on 04-17-2023 Estimated Creatinine Clearance Calc 202.89 ml/min [facility] Estimated GFR (MDRD) Amer 157 mL/min >60 [facility] Comment on above: GFR Calc Estimated GFR (MDRD) Non-Af Amer 130 mL/min >60 [facility] Comment on above: Non- GFR Calc Ethyl Alcohol Level < 3.0 mg/dL [facility] Comment on above: The serum:whole bloo d ethanol ratio is approximately 1.14and varies slightly with hematocrit. Medical Alcohol reference interval and critical value innon-tolerant individuals; 50 - 100 Impairment 100 Intoxication 100 - 250 Severe Poisoning 250 - 400 Deep/possible fatal coma [place] Level < 0.20 mmol/L 0.60-1.20 [facility] MDMA (Ecstasy) Screen Negative < 500 ng/mL [facility] Urine Barbiturates Screen Negative < 200 ng/mL [facility] Urine Drug Screen Comment [facility] Comment on above: CONFIRMATORY TESTING FOR [...] TESTING MUST BE ORDERED SEPARATELY. USE TESTMNEMONIC: [facility] Urine Methadone Screen Negative < 300 ng/mL [facility] RBC Auto (Bld) [#/Vol]Ordere d By: Yennifer Will on 04-17-2023 RBC (Bld) [#/Vol] 4.75 10*6/uL 4.6-6.2 [facility] Serum or plasma calcium angel urement (mass/volume)Ordered By: Yennifer Will on 04-17-2023 Calcium [Mass/Vol] 8.8 mg/dL 8.5-10.1 [facility] Serum or plasma creatinine m easurement (mass/volume)Ordered By: Yennifer Will on 04-17-2023 Creatinine [Mass/Vol] 0.75 mg/dL 0.70-1.30 [facility] Comment on above: The validity of the calculated GFR & GFRAA in patients over 70 years has not been determined. Clinical correlation is essential. Serum or plasma urea nitroge n measurement (mass/volume)Ordered By: Yennifer Will on 04-17-2023 Urea nitrogen [Mass/Vol] 7 mg/dL 09-14 [facility] Thin prep Papanicolaou smear with manual screeningOrdered By: Yennifer Will on 04-17-2023 Thin prep Papanicolaou smear with manual screening 3.4 g/dL 3.2-5.0 [facility] Thin prep Papanicolaou smear with manual screening 24 U/L 15-37 [facility] Thin prep Papanicolaou smear with manual screening 5 5-15 [facility] Urine phencyclidine (PCP) de tectionOrdered By: Yennifer Will on 04-17-2023 Phencyclidine Ql (U) Negative < 25 ng/mL [facility] XR Chest PA and Lateralon IMPRESSION: No acute radiographic abnormality. Tool Maker: [email or web address] Transcribe Date/Time: Mar 22 2023 3:39P Dictated by : RAIN RG MD This examination was interpreted and the report reviewed and electronically signed by: RAIN RG MD on Mar 22 2023 3:40PM [facility] DIVISION OF RADIOLOGY * * *Final [...] No acute abnormality. DIVISION OF RADIOLOGY Provider, [facility] - 03/22/2023 * * *Final Report* * [...] abnormality. IMPRESSION IMPRESSION: No acute radiographic abnormality. Tool Maker: [email or web address] Transcribe Date/Time: Mar 22 2023 3:39P Dictated by : RAIN RG MD This examination was interpreted and the report reviewed and electronically signed by: RAIN RG MD on Mar 22 2023 3:40PM EST [facility] Radiology Study observation (narrative) [facility] XR Chest PA and LateralOrder ed By: Ccf Provider on 03-22-2023 [facility] No Panel Informationon 12-17 [facility] COVID NAAT, UPPER RESPIRATOR Y, ROUTINEon 12-07-2022 SARS-CoV-2 (COVID-19) RNA RELL+probe Ql (Resp) Not detected See comment [facility] Basophil percentageOrdered B y: Dee Craig on 11-25-2022 Bilirubin [Mass/Vol] 0.20 mg/dL 0.20-1.00 [facility] Comment on above: For patients on eltr ombopag therapy, use of [place] TBIL is not recommended. Chloride [Moles/Vol] 111 mmol/L 98-107 [facility] Cholesterol [Mass/Vol] 127 mg/dL <200 [facility] Comment on above: <200 mg/dL Desirable 200-240 mg/dL Borderline >240 mg/dL High Risk Glucose [Mass/Vol] 97 mg/dL 74-106 [facility] Potassium [Moles/Vol] 4.1 mmol/L 3.5-5.1 [facility] Protein [Mass/Vol] 7.2 g/dL 6.4-8.2 [facility] Sodium [Moles/Vol] 141 mmol/L 136-145 [facility] Triglyceride [Mass/Vol] 68 mg/dL <199 [facility] Comment on above: The drugs N-Acetylcy steine and Metamizole may falsely depress this assay.Serum Triglycerides Reference Interval Normal <150 mg/dL Borderline high 150 - 199 mg/dL High 200 - 499 mg/dL Very High > or = 500 mg/dL Laboratory - Chemistry and C hemistry - challengeOrdered By: Dee Craig on 11-25-2022 ALP [Catalytic activity/Vol] 81 U/L 45-117 [facility] ALT [Catalytic activity/Vol] 25 U/L 16-61 [facility] CO2 [Moles/Vol] 24.0 mmol/L 21.0-32.0 [facility] Globulin (S) [Mass/Vol] 3.6 g/dL 2.2-4.2 [facility] Urea nitrogen/Creatinine [Mass ratio] 14.3 mg/mg 10-20 [facility] No Panel InformationOrdered By: Dee Craig on 11-25-2022 Estimated GFR (MDRD) Amer 172 mL/min >60 [facility] Comment on above: GFR Calc Estimated GFR (MDRD) Non-Af Amer 142 mL/min >60 [facility] Comment on above: Non- GFR Calc [place] Level < 0.20 mmol/L 0.60-1.20 [facility] Thyroid Stimulating Hormone (TSH) 0.73 uIU/mL 0.358-3.74 [facility] Serum or plasma albumin angel urement (mass/volume)Ordered By: Dee Craig on 11-25-2022 Albumin [Mass/Vol] 3.6 g/dL 3.2-5.0 [facility] Serum or plasma albumin/glob ulin mass ratioOrdered By: Dee Craig on 11-25-2022 Albumin/Globulin [Mass ratio] 1.0 {ratio} 0.9-2.4 [facility] Serum or plasma calcium angel urement (mass/volume)Ordered By: Dee Craig on 11-25-2022 Calcium [Mass/Vol] 8.8 mg/dL 8.5-10.1 [facility] Serum or plasma cholesterol in HDL measurement (mass/volume)Ordered By: Dee Craig on 11-25-2022 Cholesterol in HDL [Mass/Vol] 42 mg/dL >40 [facility] Comment on above: The drugs N-Acetylcy steine and Metamizole may falsely depress this assay. Reference Range HDL <40 mg/dL Low HDL Cholesterol HDL >or= 60 mg/dL High HDL Cholesterol Serum or plasma cholesterol in VLDL measurement (mass/volume)Ordered By: Dee Craig on 11-25-2022 Cholesterol in VLDL [Mass/Vol] 14 mg/dL 5-40 [facility] Serum or plasma creatinine m easurement (mass/volume)Ordered By: Dee Craig on 11-25-2022 Creatinine [Mass/Vol] 0.70 mg/dL 0.70-1.30 [facility] Comment on above: The validity of the calculated GFR & GFRAA in patients over 70 years has not been determined. Clinical correlation is essential. Serum or plasma low density lipoprotein (LDL) cholesterol measurement (mass/volume)Ordered By: Dee Craig on 11-25-2022 Cholesterol in LDL [Mass/Vol] 71 mg/dL 0-130 [facility] Serum or plasma urea nitroge n measurement (mass/volume)Ordered By: Dee Craig on 11-25-2022 Urea nitrogen [Mass/Vol] 10 mg/dL 7-18 [facility] Thin prep Papanicolaou smear with manual screeningOrdered By: Dee Craig on 11-25-2022 Thin prep Papanicolaou smear with manual screening 9 U/L 15-37 [facility] Thin prep Papanicolaou smear with manual screening 6 5-15 [facility] No Panel Informationon 11-03 [facility] XR Chest PA and Lateralon IMPRESSION: Nonspecific bibasilar parenchymal changes as described above. Tool Maker: [email or web address] Transcribe Date/Time: Sep 04 2022 4:49A Dictated by : CORNELIUS WESTON MD This examination was interpreted and the report reviewed and electronically signed by: CORNELIUS WESTON MD on Sep 04 2022 4:49AM [facility] DIVISION OF RADIOLOGY * * *Final [...] soft tissues: Unremarkable. DIVISION OF RADIOLOGY Provider, Johana jimenez [place] - 09/04/2022 * * *Final Report* * [...] Nonspecific bibasilar parenchymal changes as described above. Tool Maker: [email or web address] Transcribe Date/Time: Sep 04 2022 4:49A Dictated by : CORNELIUS WESTON MD This examination was interpreted and the report reviewed and electronically signed by: CORNELIUS WESTON MD on Sep 04 2022 4:49AM EST [facility] XR Chest PA and LateralOrder ed By: Ccf Provider on 09-04-2022 [facility] XR CHEST 2V FRONTAL/LATon [facility] XR Chest PA and Lateralon Radiology Study observation (narrative) [facility] STREP A MOLECULAR (POC)on Procedural Control Valid [facility] Strep A (POCT) Negative Negative [facility] XR ABDOMEN 1V SUPINEon 07-02 [facility] XR Abdomen Supine and Uprigh ton 07-02-2022 IMPRESSION: No acute findings. Previously noted dilated small bowel is no longer seen. Tool Maker: [email or web address] Transcribe Date/Time: Jul 02 2022 3:40P Dictated by : JAMSHID HUERTA MD This examination was interpreted and the report reviewed and electronically signed by: JAMSHID HUERTA MD on Jul 02 2022 3:42PM EST DIVISION OF RADIOLOGY * * *Final [...] clear. Bones: Unremarkable. DIVISION OF RADIOLOGY Provider, [facility] - 07/02/2022 * * *Final Report* * [...] dilated small bowel is no longer seen. Tool Maker: [email or web address] [email or web address] Transcribe Date/Time: Jul 02 2022 3:40P Dictated by : JAMSHID HUERTA MD This examination was interpreted and the report reviewed and electronically signed by: JAMSHID HUERTA MD on Jul 02 2022 3:42PM EST [facility] Radiology Study observation (narrative) [facility] XR Abdomen Supine and Uprigh tOrdered By: Ccf Provider on 07-02-2022 [facility] XR Abdomen Supine and Uprigh ton 07-01-2022 IMPRESSION: Borderli ne distended small bowel loops. Tool Maker: [email or web address] Transcribe Date/Time: Jul 01 2022 4:30P [...] structures appear intact. DIVISION OF RADIOLOGY Provider, [facility] - 07/01/2022 * * *Final Report* * [...] IMPRESSION IMPRESSION: Borderline distended small bowel loops. Tool Maker: [email or web address] Transcribe Date/Time: Jul 01 2022 4:30P Dictated by : JACLYN TURK MD This examination was interpreted and the report reviewed and electronically signed by: JACLYN TURK MD on Jul 01 2022 4:31PM EST [facility] XR Abdomen Supine and Uprigh tOrdered By: Ccf Provider on 07-01-2022 [facility] CBC W Auto Differential pane l (Bld)on 06-30-2022 Basophils (Bld) [#/Vol] <0.11 k/uL C [facility] Basophils/100 WBC (Bld) 0.1 % C [facility] Differential cell count method Nom (Bld) Auto [facility] Eosinophils (Bld) [#/Vol] <0.46 k/uL [facility] Eosinophils/100 WBC (Bld) 0.0 % [facility] Erythrocyte distribution width (RBC) [Ratio] 14.5 % 11.5 - 15.0 % [facility] Hematocrit (Bld) [Volume fraction] 41.2 % 39.0 - 51.0 % [facility] Hemoglobin (Bld) [Mass/Vol] 13.1 g/dL 13.0 - 17.0 g/dL [facility] Immature granulocytes (Bld) [#/Vol] <0.10 k/uL [facility] Immature granulocytes/100 WBC (Bld) 0.3 % [facility] Lymphocytes (Bld) [#/Vol] 2.72 10*3/uL 1.00 - 4.00 k/uL [facility] Lymphocytes/100 WBC (Bld) 36.5 % [facility] MCH (RBC) [Entitic mass] 25.7 pg Low 26.0 - 34.0 pg [facility] MCHC (RBC) [Mass/Vol] 31.8 g/dL 30.5 - 36.0 g/dL [facility] MCV (RBC) [Entitic vol] 80.8 fL 80.0 - 100.0 fL [facility] Monocytes (Bld) [#/Vol] 0.54 10*3/uL <0.87 k/uL [facility] Monocytes/100 WBC (Bld) 7.2 % C [facility] Neutrophils (Bld) [#/Vol] 4.17 10*3/uL 1.45 - 7.50 k/uL [facility] Neutrophils/100 WBC (Bld) 55.9 % [facility] Nucleated RBC (Bld) [#/Vol] <0.01 k/uL [facility] Nucleated RBC/100 WBC (Bld) [Ratio] 0.0 /100 WBC [facility] Platelet mean volume (Bld) [Entitic vol] 9.2 fL 9.0 - 12.7 fL [facility] Platelets (Bld) [#/Vol] 335 10*3/uL 150 - 400 k/uL [facility] RBC (Bld) [#/Vol] 5.10 10*6/uL 4.20 - 6.0 0 m/uL [facility] WBC (Bld) [#/Vol] 7.46 10*3/uL 3.70 - 11. 00 k/uL [facility] Urinalysis complete panel (U )on 06-30-2022 Bilirubin Ql (U) Negative Negative [facility] Clarity (Unsp spec) Clear Clear [facility] Color (U) Yellow Yellow [facility] Epithelial cells LM.HPF (Urine sed) [#/Area] Few [facility] Glucose Test strip (U) [Mass/Vol] Negative Trace, Negative [facility] Hemoglobin Ql (U) Negative Negative, Trace [facility] Ketones Ql (U) Negative Trace, Negative [facility] Leukocyte esterase Test strip Ql (U) 25 Sandra/uL Negative, 25 Sandra/uL [facility] Nitrite Ql (U) Negative Negative [facility] pH (U) 6.5 [pH] 5.0 - 8.0 [facility] Protein (U) [Mass/Vol] Negative Trace , Negative [facility] RBC LM.HPF (Urine sed) [#/Area] 0-3 /HPF 0-3 /HPF [facility] Specific gravity (U) [Rel density] 1.010 1.005 - 1.030 [facility] Urobilinogen Ql (U) Negative Negative [facility] WBC LM.HPF (Urine sed) [#/Area] 0-5 /HPF 0-5 /HPF [facility] XR Abdomen Supine and Uprigh ton 06-29-2022 Radiology Study observation (narrative) [facility] Absolute lymphocyte countOrd ered By: ED PROVIDER on 06-02-2022 Lymphocytes Auto (Unsp spec) [#/Vol] 2.81 10*3/uL 0.83-4.51 [facility] Basophil percentageOrdered B y: ED PROVIDER on 06-02-2022 Basophils/100 WBC (Bld) 0.1 % 0-1 [facility] Chloride [Moles/Vol] 105 mmol/L 98-107 [facility] Eosinophils/100 WBC (Bld) 0.0 % 0-5 [facility] Glucose [Mass/Vol] 89 mg/dL 74-106 [facility] Neutrophils (Bld) [#/Vol] 5.4 10*3/uL 2.0-7.7 [facility] Neutrophils/100 WBC (Bld) 60.6 % 47-70 [facility] Potassium [Moles/Vol] 3.8 mmol/L 3.5-5.1 [facility] Sodium [Moles/Vol] 137 mmol/L 136-145 [facility] WBC (Bld) [#/Vol] 8.9 10*3/uL 4.4-11.0 [facility] Basophil percentage 0-5 SEEN /hpf 0-5 [facility] Bilirubin Test strip Ql (U)O rdered By: ED PROVIDER on 06-02-2022 Bilirubin Ql (U) Negative Negative [facility] Blood erythrocytes count (nu mber/volume)Ordered By: ED PROVIDER on 06-02-2022 RBC (Bld) [#/Vol] 4.89 10*6/uL 4.6-6.2 [facility] Blood hemoglobin measurement (mass/volume)Ordered By: ED PROVIDER on 06-02-2022 Hemoglobin (Bld) [Mass/Vol] 12.4 g/dL 13.0-16.5 [facility] Blood lymphocytes/100 leukoc ytesOrdered By: ED PROVIDER on 06-02-2022 Lymphocytes/100 WBC (Bld) 31.5 % 19-41 [facility] Blood monocytes/100 leukocyt esOrdered By: ED PROVIDER on 06-02-2022 Monocytes/100 WBC (Bld) 7.6 % 0-10 [facility] Blood platelet mean volumeOr dered By: ED PROVIDER on 06-02-2022 Platelet mean volume (Bld) [Entitic vol] 8.8 fL 6.2-12.0 [facility] COVID-19 virus antigen assay Ordered By: ED PROVIDER on 06-02-2022 SARS-CoV-2 (COVID-19) Ag IA.rapid Ql (Resp) [facility] Determination of erythrocyte mean corpuscular volume (MCV)Ordered By: ED PROVIDER on 06-02-2022 MCV (RBC) [Entitic vol] 78.3 fL 80-94 [facility] Hematocrit Auto (Bld) [Volum e fraction]Ordered By: ED PROVIDER on 06-02-2022 Hematocrit (Bld) [Volume fraction] 38.3 % 40-54 [facility] Ketones Test strip Ql (U)Ord ered By: ED PROVIDER on 06-02-2022 Ketones Ql (U) 5 mg/dl Negative [facility] Laboratory - Chemistry and C hemistry - challengeOrdered By: ED PROVIDER on 06-02-2022 CO2 [Moles/Vol] 25.0 mmol/L 21.0-32.0 [facility] Urea nitrogen/Creatinine [Mass ratio] 11.7 mg/mg 10-20 [facility] Laboratory - Drug toxicology Ordered By: ED PROVIDER on 06-02-2022 Amphetamines Ql (U) Negative <1000 ng/mL [facility] Benzodiazepines Ql (U) Negative < 200 ng/mL [facility] Cannabinoids Screen Ql (U) Negative < 50 ng/mL [facility] Cocaine Ql (U) Negative < 300 ng/mL [facility] Opiates Ql (U) Negative < 300 ng/mL [facility] Laboratory - Hematology and Cell countsOrdered By: ED PROVIDER on 06-02-2022 Erythrocyte distribution width (RBC) [Entitic vol] 41.1 fL 35.1-43.9 [facility] Erythrocyte distribution width (RBC) [Ratio] 14.6 % 11.6-14.6 [facility] Immature granulocytes/100 WBC (Bld) 0.200 % 0.0-0.9 [facility] Comment on above: IG% - Immature Granu locytes (promyelocytes, myelocytes and metamyelocytes) > 1% indicates that a LEFT SHIFT is Present. MCH (RBC) [Entitic mass] 25.4 pg 27.0-32.0 [facility] Nucleated RBC/100 WBC (Bld) [Ratio] 0 % 0-5 [facility] MCHC Auto (RBC) [Mass/Vol]Or dered By: ED PROVIDER on 06-02-2022 MCHC (RBC) [Mass/Vol] 32.4 g/dL 32-36 [facility] Mucus LM Ql (Urine sed)Order ed By: ED PROVIDER on 06-02-2022 Mucus Ql (Urine sed) 0 SEEN /hpf [facility] Nitrite Test strip Ql (U)Ord ered By: ED PROVIDER on 06-02-2022 Nitrite Ql (U) Negative Negative [facility] No Panel InformationOrdered By: ED PROVIDER on 06-02-2022 Estimated Creatinine Clearance Calc 156.77 ml/min [facility] Estimated GFR (MDRD) Amer 154 mL/min >60 [facility] Comment on above: GFR Calc Estimated GFR (MDRD) Non-Af Amer 127 mL/min >60 [facility] Comment on above: Non- GFR Calc Ethyl Alcohol Level < 3.0 mg/dL [facility] Comment on above: The serum:whole bloo d ethanol ratio is approximately 1.14and varies slightly with hematocrit. Medical Alcohol reference interval and critical value innon-tolerant individuals; 50 - 100 Impairment 100 Intoxication 100 - 250 Severe Poisoning 250 - 400 Deep/possible fatal coma MDMA (Ecstasy) Screen Negative < 500 ng/mL [facility] Urine Barbiturates Screen Negative < 200 ng/mL [facility] Urine Drug Screen Comment [facility] Comment on above: CONFIRMATORY TESTING FOR [...] Methadone Screen Negative < 300 ng/mL [facility] Platelets bldOrdered By: ED PROVIDER on 06-02-2022 Platelets (Bld) [#/Vol] 294 10*3/uL 150-450 [facility] Protein Test strip Ql (U)Ord ered By: ED PROVIDER on 06-02-2022 Protein Ql (U) 30 mg/dl Negative [facility] Serum or plasma calcium angel urement (mass/volume)Ordered By: ED PROVIDER on 06-02-2022 Calcium [Mass/Vol] 9.0 mg/dL 8.5-10.1 [facility] Serum or plasma creatinine m easurement (mass/volume)Ordered By: ED PROVIDER on 06-02-2022 Creatinine [Mass/Vol] 0.77 mg/dL 0.70-1.30 [facility] Comment on above: The validity of the calculated GFR & GFRAA in patients over 70 years has not been determined. Clinical correlation is essential. Serum or plasma urea nitroge n measurement (mass/volume)Ordered By: ED PROVIDER on 06-02-2022 Urea nitrogen [Mass/Vol] 9 mg/dL 7-18 [facility] Squamous epithelial cells de tection in urine sediment by light microscopyOrdered By: ED PROVIDER on 06-02-2022 Epithelial cells.squamous LM Ql (Urine sed) 0-5 SEEN /hpf 0-5 [facility] Thin prep Papanicolaou smear with manual screeningOrdered By: ED PROVIDER on 06-02-2022 Thin prep Papanicolaou smear with manual screening 7 5-15 [facility] Urine blood detectionOrdered By: ED PROVIDER on 06-02-2022 RBC Ql (U) Negative Negative [facility] RBC Ql (U) 0 SEEN /hpf 0-5 [facility] Urine clarityOrdered By: ED PROVIDER on 06-02-2022 Clarity (U) Clear Clear [facility] Urine color determinationOrd ered By: ED PROVIDER on 06-02-2022 Color (U) Yellow Yellow [facility] Urine glucose detectionOrder ed By: ED PROVIDER on 06-02-2022 Glucose Ql (U) Normal mg/dl Normal [facility] Urine leukocyte esterase det ection by dipstickOrdered By: ED PROVIDER on 06-02-2022 Leukocyte esterase Test strip Ql (U) Negative Negative [facility] Urine pHOrdered By: ED PROVI MARYLOU on 06-02-2022 pH (U) 6.5 [pH] 5.0 - 8.0 [facility] Urine phencyclidine (PCP) de tectionOrdered By: ED PROVIDER on 06-02-2022 Phencyclidine Ql (U) Negative < 25 ng/mL [facility] Urine sediment bacteria coun t by microscopy (number/high power field)Ordered By: ED PROVIDER on 06-02-2022 Bacteria LM.HPF (Urine sed) [#/Area] RARE /hpf None Seen [facility] Urine specific gravity measu rementOrdered By: ED PROVIDER on 06-02-2022 Specific gravity (U) [Rel density] 1.020 1.002-1.030 [facility] Urobilinogen Auto test strip Ql (U)Ordered By: ED PROVIDER on 06-02-2022 Urobilinogen Ql (U) 1 mg/dl Normal [facility] Absolute lymphocyte countOrd ered By: Dr. Mondragon on 04-22-2022 Lymphocytes Auto (Unsp spec) [#/Vol] 1.90 10*3/uL 0.83-4.51 [facility] Basophil percentageOrdered B y: Dr. Mondragon on 04-22-2022 Basophils/100 WBC (Bld) 0.1 % 0-1 [facility] Chloride [Moles/Vol] 106 mmol/L 98-107 [facility] Eosinophils/100 WBC (Bld) 0.0 % 0-5 [facility] Glucose [Mass/Vol] 92 mg/dL 74-106 [facility] Neutrophils (Bld) [#/Vol] 4.7 10*3/uL 2.0-7.7 [facility] Neutrophils/100 WBC (Bld) 64.3 % 47-70 [facility] Potassium [Moles/Vol] 3.8 mmol/L 3.5-5.1 [facility] Sodium [Moles/Vol] 137 mmol/L 136-145 [facility] WBC (Bld) [#/Vol] 7.3 10*3/uL 4.4-11.0 [facility] Blood erythrocytes count (nu mber/volume)Ordered By: Dr. Mondragon on 04-22-2022 RBC (Bld) [#/Vol] 5.22 10*6/uL 4.6-6.2 [facility] Blood hemoglobin measurement (mass/volume)Ordered By: Dr. Mondragon on 04-22-2022 Hemoglobin (Bld) [Mass/Vol] 13.2 g/dL 13.0-16.5 [facility] Blood lymphocytes/100 leukoc ytesOrdered By: Dr. Mondragon on 04-22-2022 Lymphocytes/100 WBC (Bld) 26.2 % 19-41 [facility] Blood monocytes/100 leukocyt esOrdered By: Dr. Mondragon on 04-22-2022 Monocytes/100 WBC (Bld) 9.1 % 0-10 [facility] Blood platelet mean volumeOr dered By: Dr. Mondragon on 04-22-2022 Platelet mean volume (Bld) [Entitic vol] 8.8 fL 6.2-12.0 [facility] Determination of erythrocyte mean corpuscular volume (MCV)Ordered By: Dr. Mondragon on 04-22-2022 MCV (RBC) [Entitic vol] 79.3 fL 80-94 [facility] Hematocrit Auto (Bld) [Volum e fraction]Ordered By: Dr. Mondragon on 04-22-2022 Hematocrit (Bld) [Volume fraction] 41.4 % 40-54 [facility] Influenza virus A and B and SARS-CoV-2 (COVID-19) Ag panel - Upper respiratory specimOrdered By: Dr. Mondragon on 04-22-2022 SARS-CoV-2 (COVID-19) RNA RELL+probe Ql (Resp) [facility] - Chemistry and C hemistry - challengeOrdered By: Dr. Mondragon on 04-22-2022 CO2 [Moles/Vol] 24.0 mmol/L 21.0-32.0 [facility] Urea nitrogen/Creatinine [Mass ratio] 10.8 mg/mg 10-20 [facility] - Drug toxicology Ordered By: Dr. Mondragon on 04-22-2022 Amphetamines Ql (U) Negative <1000 ng/mL [facility] Benzodiazepines Ql (U) Negative < 200 ng/mL [facility] Cannabinoids Screen Ql (U) Negative < 50 ng/mL [facility] Cocaine Ql (U) Negative < 300 ng/mL [facility] Opiates Ql (U) Negative < 300 ng/mL [facility] - Hematology and Cell countsOrdered By: Dr. Mondragon on 04-22-2022 Erythrocyte distribution width (RBC) [Entitic vol] 41.1 fL 35.1-43.9 [facility] Erythrocyte distribution width (RBC) [Ratio] 14.4 % 11.6-14.6 [facility] Immature granulocytes/100 WBC (Bld) 0.300 % 0.0-0.9 [facility] Comment on above: IG% - Immature Granu locytes (promyelocytes, myelocytes and metamyelocytes) > 1% indicates that a LEFT SHIFT is Present. MCH (RBC) [Entitic mass] 25.3 pg 27.0-32.0 [facility] Nucleated RBC/100 WBC (Bld) [Ratio] 0 % 0-5 [facility] [Mass/Vol]Or dered By: Dr. Mondragon on 04-22-2022 MCHC (RBC) [Mass/Vol] 31.9 g/dL 32-36 [facility] No Panel InformationOrdered By: Dr. Mondragon on 04-22-2022 Estimated Creatinine Clearance Calc 145.44 ml/min [facility] Estimated GFR (MDRD) Amer 141 mL/min >60 [facility] Comment on above: GFR Calc Estimated GFR (MDRD) Non-Af Amer 116 mL/min >60 [facility] Comment on above: Non- GFR Calc Ethyl Alcohol Level < 3.0 mg/dL [facility] Comment on above: The serum:whole bloo d ethanol ratio is approximately 1.14and varies slightly with hematocrit. Medical Alcohol reference interval and critical value innon-tolerant individuals; 50 - 100 Impairment 100 Intoxication 100 - 250 Severe Poisoning 250 - 400 Deep/possible fatal coma MDMA (Ecstasy) Screen Negative < 500 ng/mL [facility] Urine Barbiturates Screen Negative < 200 ng/mL [facility] Urine Drug Screen Comment [facility] Comment on above: CONFIRMATORY TESTING FOR [...] Urine Methadone Screen Negative < 300 ng/mL [facility] Platelets bldOrdered By: Dr. Mondragon on 04-22-2022 Platelets (Bld) [#/Vol] 353 10*3/uL 150-450 [facility] Serum or plasma calcium angel urement (mass/volume)Ordered By: Dr. Mondragon on 04-22-2022 Calcium [Mass/Vol] 9.5 mg/dL 8.5-10.1 [facility] Serum or plasma creatinine m easurement (mass/volume)Ordered By: Dr. Mondragon on 04-22-2022 Creatinine [Mass/Vol] 0.83 mg/dL 0.70-1.30 [facility] Comment on above: The validity of the calculated GFR & GFRAA in patients over 70 years has not been determined. Clinical correlation is essential. Serum or plasma urea nitroge n measurement (mass/volume)Ordered By: Dr. Mondragon on 04-22-2022 Urea nitrogen [Mass/Vol] 9 mg/dL 7-18 [facility] Thin prep Papanicolaou smear with manual screeningOrdered By: Dr. Mondragon on 04-22-2022 Thin prep Papanicolaou smear with manual screening 7 5-15 [facility] Urine phencyclidine (PCP) de tectionOrdered By: Dr. Mondragon on 04-22-2022 Phencyclidine Ql (U) Negative < 25 ng/mL [facility] UA DIP, URINE (POC)on 2022 BILIRUBIN UA (POCT) Negative Negative [facility] CLARITY UA (POCT) Clear [facility] COLOR UA (POCT) Yellow [facility] GLUCOSE UA (POCT) Negative Negative mg/dL [facility] HEMOGLOBIN/BLOOD UA (POCT) Small Abnormal Negative [facility] KETONE UA (POCT) Negative Negative mg/dL [facility] LEUKOCYTES UA (POCT) Negative Negative [facility] NITRITE UA (POCT) Negative Negative [facility] PH UA (POCT) 5.0 4.5 - 8.0 [facility] Protein Ql (U) Negative Negative mg/dL [facility] SPECIFIC GRAVITY UA (POCT) 1.025 1.005 - 1.030 [facility] UROBILINOGEN UA (POCT) 0.2 E.U./dL Maura l E.U./dL [facility] Absolute lymphocyte counton 09-02-2021 Lymphocytes Auto (Unsp spec) [#/Vol] 2.09 10*3/uL 0.83-4.51 [facility] Work Phone: Basophil percentageon 2021 Basophils/100 WBC (Bld) 0.1 % 0-1 [facility] Work Phone: Chloride [Moles/Vol] 106 mmol/L 98-107 [facility]: Eosinophils/100 WBC (Bld) 0.0 % 0-5 [facility] Work Phone: Glucose [Mass/Vol] 95 mg/dL 74-106 [facility] Work Phone: [phone] Neutrophils (Bld) [#/Vol] 4.6 10*3/uL 2.0-7.7 [facility] Work Phone: Neutrophils/100 WBC (Bld) 62.7 % 47-70 [facility] Work Phone: [phone] Potassium [Moles/Vol] 3.9 mmol/L 3.5-5.1 [facility] Work Phone: Sodium [Moles/Vol] 137 mmol/L 136-145 [facility] Work Phone: WBC (Bld) [#/Vol] 7.3 10*3/uL 4.4-11.0 [facility] Work Phone: [phone] Blood erythrocytes count (nu mber/volume)on 09-02-2021 RBC (Bld) [#/Vol] 5.06 10*6/uL 4.6-6.2 [facility]: [phone] Blood hemoglobin measurement (mass/volume)on 09-02-2021 Hemoglobin (Bld) [Mass/Vol] 12.8 g/dL 13.0-16.5 [facility] Work Phone: [phone] Blood lymphocytes/100 leukoc yteson 09-02-2021 Lymphocytes/100 WBC (Bld) 28.6 % 19-41 [facility] Work Phone: Blood monocytes/100 leukocyt eson 09-02-2021 Monocytes/100 WBC (Bld) 8.3 % 0-10 [facility] Work Phone: Blood platelet mean volumeon 09-02-2021 Platelet mean volume (Bld) [Entitic vol] 8.9 fL 6.2-12.0 [facility] Work Phone: Determination of erythrocyte mean corpuscular volume (MCV)on 09-02-2021 MCV (RBC) [Entitic vol] 77.9 fL 80-94 [facility] Work Phone: Hematocrit Auto (Bld) [Volum e fraction]on 09-02-2021 Hematocrit (Bld) [Volume fraction] 39.4 % 40-54 [facility] Work Phone: Laboratory - Chemistry and C hemistry - challengeon 09-02-2021 CO2 [Moles/Vol] 25.0 mmol/L 21.0-32.0 [facility] Work Phone: Urea nitrogen/Creatinine [Mass ratio] 17.5 mg/mg 10-20 [facility] Work Phone: Laboratory - Drug toxicology on 09-02-2021 Amphetamines Ql (U) Negative <1000 ng/mL [facility] Work Phone: Benzodiazepines Ql (U) Negative < 200 ng/mL [facility] Work Phone: Cannabinoids Screen Ql (U) Negative < 50 ng/mL [facility] Work Phone: Cocaine Ql (U) Negative < 300 ng/mL [facility] Work Phone: Opiates Ql (U) Negative < 300 ng/mL [facility] Work Phone: Laboratory - Hematology and Cell countson 09-02-2021 Erythrocyte distribution width (RBC) [Entitic vol] 41.1 fL 35.1-43.9 [facility] Work Phone: Erythrocyte distribution width (RBC) [Ratio] 14.7 % 11.6-14.6 [facility] Work Phone: Immature granulocytes/100 WBC (Bld) 0.300 % 0.0-0.9 [facility] Work Phone: Comment on above: IG% - Immature Granu locytes (promyelocytes, myelocytes and metamyelocytes) > 1% indicates that a LEFT SHIFT is Present. MCH (RBC) [Entitic mass] 25.3 pg 27.0-32.0 [facility] Work Phone: Nucleated RBC/100 WBC (Bld) [Ratio] 0 % 0-5 [facility] Work Phone: MCHC Auto (RBC) [Mass/Vol]on 09-02-2021 MCHC (RBC) [Mass/Vol] 32.5 g/dL 32-36 [facility] Work Phone: No Panel Informationon 09-02 MDMA (Ecstasy) Screen Negative < 500 ng/mL [facility] Work Phone: Urine Barbiturates Screen Negative < 200 ng/mL [facility] Work Phone: Urine Drug Screen Comment [facility] Work Phone: Comment on above: CONFIRMATORY [...] Methadone Screen Negative < 300 ng/mL [facility] Work Phone: Estimated Creatinine Clearance Calc 133.83 ml/min [facility] Work Phone: Estimated GFR (MDRD) Amer 127 mL/min >60 [facility] Work Phone: Comment on above: GFR Calc Estimated GFR (MDRD) Non-Af Amer 105 mL/min >60 [facility] Work Phone: Comment on above: Non- GFR Calc Ethyl Alcohol Level < 3.0 mg/dL [facility] Work Phone: Comment on above: The serum:whole bloo d ethanol ratio is approximately 1.14and varies slightly with hematocrit. Medical Alcohol reference interval and critical value innon-tolerant individuals; 50 - 100 Impairment 100 Intoxication 100 - 250 Severe Poisoning 250 - 400 Deep/possible fatal coma Platelets bldon 09-02-2021 Platelets (Bld) [#/Vol] 306 10*3/uL 150-450 [facility] Work Phone: Serum or plasma calcium angel urement (mass/volume)on 09-02-2021 Calcium [Mass/Vol] 9.1 mg/dL 8.5-10.1 [facility] Work Phone: Serum or plasma creatinine m easurement (mass/volume)on 09-02-2021 Creatinine [Mass/Vol] 0.91 mg/dL 0.70-1.30 [facility] Work Phone: Comment on above: The validity of the calculated GFR & GFRAA in patients over 70 years has not been determined. Clinical correlation is essential. Serum or plasma urea nitroge n measurement (mass/volume)on 09-02-2021 Urea nitrogen [Mass/Vol] 16 mg/dL 7-18 [facility] Work Phone: Thin prep Papanicolaou smear with manual screeningon 09-02-2021 Thin prep Papanicolaou smear with manual screening 6 5-15 [facility] Work Phone: Urine phencyclidine (PCP) de tectionon 09-02-2021 Phencyclidine Ql (U) Negative < 25 ng/mL [facility] Work Phone: Absolute lymphocyte counton 08-17-2021 Lymphocytes Auto (Unsp spec) [#/Vol] 3.24 10*3/uL 0.83-4.51 [facility] Work Phone: Basophil percentageon 2021 Basophil percentage 0-5 SEEN /hpf 0-5 [facility] Work Phone: Basophils/100 WBC (Bld) 0.1 % 0-1 [facility] Work Phone: Chloride [Moles/Vol] 107 mmol/L 98-107 [facility] Work Phone: Eosinophils/100 WBC (Bld) 0.0 % 0-5 [facility] Work Phone: Glucose [Mass/Vol] 106 mg/dL 74-106 [facility] Work Phone: Comment on above: Fasting Glucose resu lt from 100 to 125 mg/dL suggests IMPAIRED HOMEOSTASIS per A.D.A. criteria. Neutrophils (Bld) [#/Vol] 3.9 10*3/uL 2.0-7.7 [facility] Work Phone: Neutrophils/100 WBC (Bld) 49.3 % 47-70 [facility] Work Phone: Potassium [Moles/Vol] 4.0 mmol/L 3.5-5.1 [facility] Work Phone: Sodium [Moles/Vol] 138 mmol/L 136-145 [facility] Work Phone: WBC (Bld) [#/Vol] 7.9 10*3/uL 4.4-11.0 [facility] Work Phone: Bilirubin Test strip Ql (U)o n 08-17-2021 Bilirubin Ql (U) Negative Negative [facility] Work Phone: Blood erythrocytes count (nu mber/volume)on 08-17-2021 RBC (Bld) [#/Vol] 4.92 10*6/uL 4.6-6.2 [facility] Work Phone: Blood hemoglobin measurement (mass/volume)on 08-17-2021 Hemoglobin (Bld) [Mass/Vol] 12.5 g/dL 13.0-16.5 [facility] Work Phone: [phone] Blood lymphocytes/100 leukoc yteson 08-17-2021 Lymphocytes/100 WBC (Bld) 41.3 % 19-41 [facility] Work Phone: Blood monocytes/100 leukocyt eson 08-17-2021 Monocytes/100 WBC (Bld) 9.0 % 0-10 [facility] Work Phone: Blood platelet mean volumeon 08-17-2021 Platelet mean volume (Bld) [Entitic vol] 8.8 fL 6.2-12.0 [facility] Work Phone: Determination of erythrocyte mean corpuscular volume (MCV)on 08-17-2021 MCV (RBC) [Entitic vol] 78.0 fL 80-94 [facility] Work Phone: Hematocrit Auto (Bld) [Volum e fraction]on 08-17-2021 Hematocrit (Bld) [Volume fraction] 38.4 % 40-54 [facility] Work Phone: Ketones Test strip Ql (U)on 08-17-2021 Ketones Ql (U) Negative Negative [facility] Work Phone: Laboratory - Chemistry and C hemistry - challengeon 08-17-2021 CO2 [Moles/Vol] 25.0 mmol/L 21.0-32.0 [facility] Work Phone: Urea nitrogen/Creatinine [Mass ratio] 17.2 mg/mg - [facility] Work Phone: Laboratory - Hematology and Cell countson 08-17-2021 Erythrocyte distribution width (RBC) [Entitic vol] 40.5 fL 35.1-43.9 [facility] Work Phone: Erythrocyte distribution width (RBC) [Ratio] 14.5 % 11.6-14.6 [facility] Work Phone: Immature granulocytes/100 WBC (Bld) 0.300 % 0.0-0.9 [facility] Work Phone: Comment on above: IG% - Immature Granu locytes (promyelocytes, myelocytes and metamyelocytes) > 1% indicates that a LEFT SHIFT is Present. MCH (RBC) [Entitic mass] 25.4 pg 27.0-32.0 [facility] Work Phone: Nucleated RBC/100 WBC (Bld) [Ratio] 0 % 0-5 [facility] Work Phone: MCHC Auto (RBC) [Mass/Vol]on 08-17-2021 MCHC (RBC) [Mass/Vol] 32.6 g/dL 32-36 [facility] Work Phone: Mucus LM Ql (Urine sed)on Mucus Ql (Urine sed) 1+ /hpf [facility] Work Phone: Nitrite Test strip Ql (U)on 08-17-2021 Nitrite Ql (U) Negative Negative [facility] Work Phone: No Panel Informationon 08-17 Estimated Creatinine Clearance Calc 141.44 ml/min [facility] Work Phone: Estimated GFR (MDRD) Amer 146 mL/min >60 [facility] Work Phone: Comment on above: GFR Calc Estimated GFR (MDRD) Non-Af Amer 120 mL/min >60 [facility] Work Phone: Comment on above: Non- GFR Calc Platelets bldon 08-17-2021 Platelets (Bld) [#/Vol] 319 10*3/uL 150-450 [facility] Work Phone: Protein Test strip Ql (U)on 08-17-2021 Protein Ql (U) 15 mg/dl Negative [facility] Work Phone: Serum or plasma calcium angel urement (mass/volume)on 08-17-2021 Calcium [Mass/Vol] 9.1 mg/dL 8.5-10.1 [facility] Work Phone: Serum or plasma creatinine m easurement (mass/volume)on 08-17-2021 Creatinine [Mass/Vol] 0.81 mg/dL 0.70-1.30 [facility] Work Phone: Comment on above: The validity of the calculated GFR & GFRAA in patients over 70 years has not been determined. Clinical correlation is essential. Serum or plasma urea nitroge n measurement (mass/volume)on 08-17-2021 Urea nitrogen [Mass/Vol] 14 mg/dL 7-18 [facility] Work Phone: Squamous epithelial cells de tection in urine sediment by light microscopyon 08-17-2021 Epithelial cells.squamous LM Ql (Urine sed) 0 SEEN /hpf 0-5 [facility] Work Phone: Thin prep Papanicolaou smear with manual screeningon 08-17-2021 Thin prep Papanicolaou smear with manual screening 6 5-15 [facility] Work Phone: Urine blood detectionon 07-30-2021 RBC Ql (U) Negative Negative [facility] Work Phone: RBC Ql (U) 0 SEEN /hpf 0-5 [facility] Work Phone: Urine clarityon 08-17-2021 Clarity (U) Clear Clear [facility] Work Phone: Urine color determinationon 08-17-2021 Color (U) Yellow Yellow [facility] Work Phone: Urine glucose detectionon Glucose Ql (U) Normal mg/dl Normal [facility] Work Phone: Urine leukocyte esterase det ection by dipstickon 08-17-2021 Leukocyte esterase Test strip Ql (U) Negative Negative [facility] Work Phone: Urine pHon 08-17-2021 pH (U) 6.0 [pH] 5.0 - 8.0 [facility] Work Phone: Urine sediment bacteria coun t by microscopy (number/high power field)on 08-17-2021 Bacteria LM.HPF (Urine sed) [#/Area] 1 /[HPF] None Seen [facility] Work Phone: Urine specific gravity measu rementon 08-17-2021 Specific gravity (U) [Rel density] 1.030 1.002-1.030 [facility] Work Phone: Urobilinogen Auto test strip Ql (U)on 08-17-2021 Urobilinogen Ql (U) Normal mg/dl Normal [facility] Work Phone: ANES POSTPROC EVALon 021 ANES POSTPROC EVAL HNO ID: [id number] Author: Sofi Sim MD Service: Anesthesiology Author Type: Anesthesiologist Type: Anesthesia Postprocedure Evaluation Filed: 01/26/2021 5:01 PM Note Text: POST ANESTHESIA EVALUATION NOTE : 1995 Procedure Summary Date: 01/26/21 Room / Location: [place] OR / [place] OR Anesthesia Start: 1435 Anesthesia Stop: 1607 [...] January 26, 2021 TIME: 5:01 PM CSN: [id number] [facility] ANES PRE-OPon 01-26-2021 ANES PRE-OP HNO ID: [id number] Author: Kedar Jerez MD Service: Anesthesiology Author [...] January 26, 2021 TIME: 1:22 PM CSN: [id number] [facility] BRIEF OP NOTon 01-26-2021 BRIEF OP NOT HNO ID: [id number] Author: Gonzalo Leon MD Service: General Surgery Author Type: Physician Type: Brief Op Note Filed: 01/26/2021 3:54 PM Note Text: BRIEF OPERATIVE NOTATION FOR SURGICAL PROCEDURE. Levy Todd 1995 [id number] male LOG ID: [id number] Surgery/Procedure Date: 01/26/2021 Incision/Procedure Start Time: 1500 Incision Close/Procedure End Time: 1549 Surgeon(s)/Proceduralist (s) and Director Clinical Operations(s): Surgeon(s) and Role: * Gonzalo Leon MD - Primary Nurse Practitioner: Antonieta Stauffer APRN.[employer] Registered Nurse Gis Web Developer: Jocelyne Morataya RN REFERRING PHYSICIAN: Outpatient DEPT: TIERA PROVIDER: Joshua POS: [id number] ANESTHESIA: General ASA CLASS: 3 - Severe DIAGNOSIS: biliary colic PROCEDURE: LAPAROSCOPIC CHOLECYSTECTOMY WITH INTRAOPERATIVE CHOLEANGIOGRAM - [id number] IVF: 700 EBL: 20 Specimens: gallbladder ADDITIONAL [...] note dictated in the dictation system. - [id number] Gonzalo Leon MD [facility] HISTORY PHYSICALon HISTORY PHYSICAL HNO ID: [id number] Author: Gonzalo Leon MD Service: General Surgery [...] Grandfather ? ? (more content not included)... [facility] NURSING PROGon 01-26-2021 NURSING PROG HNO ID: [id number] Author: Jina Harman RN Service: Nursing Author Type: Registered Nurse Type: Nursing Progress Note Filed: 01/26/2021 1:14 PM Note Text: Nursing Progress Note Patient Name: Levy Todd Patient Location: [place] Surgery/[place] Surgery PT READY FOR OR, CALL LIGHT IN REACH, MOM AT BEDSIDE. This note was completed by: Jina Harman [facility] OPERATIVE NOon 01-26-2021 OPERATIVE NO HNO ID: [id number] Author: Gonzalo Leon MD Service: General Surgery Author Type: Physician Type: Operative Report Filed: 01/28/2021 4:54 AM Note Text: [facility] - Operative Report LEVY TODD : 1995 AGE: 25. SEX: M PATIENT TYPE: A [facility] [place] [facility] LOCATION: [facility] ATTENDING PHYSICIAN: Gonzalo Leon M.D. CSN NUMBER: [id number] DATE OF SURGERY/PROCEDURE: 01/26/2021 INCISION/PROCEDURE START TIME: 03:00 p.m. INCISION CLOSE/PROCEDURE END TIME: 03:49 p.m. PREOPERATIVE DIAGNOSIS: Biliary colic. POSTOPERATIVE DIAGNOSIS: Biliary colic, normal cholangiogram with small ducts. SURGEON: Gonzalo Leon M.D. [address] MAN: Nurse Practitioner: Antonieta Stauffer APRN.[facility] Registered Nurse Gis Web Developer: Jocelyne Morataya RN SURGERY/PROCEDURE: Laparoscopic cholecystectomy with intraoperative cholangiogram. ANESTHESIA: General endotracheal. LOG ID#: [id number] ANESTHESIOLOGIST: Kedar Hopkins. ASA: 3. INTRAVENOUS FLUIDS: [...] through the umbilical port site. 0 PDS [id number] sutures placed on the umbilical port site [...] stable condition. Antonieta Stauffer was my 1st agency sales management assistant. She assisted in visualization, retraction, and performed subcuticular closure. Gera Phillips was the administrative personal assistant. There were no surgeons or qualified residents available. Gonzalo Leon M.D. LUKE:[id number] /[id number] [facility] SURGICAL PATHOLOGYon 021 SURGICAL PATHOLOGY Specimen originated from [facility] Specimen #: [id number] Submitting Physician: Gonzalo Leon M.D. __ FINAL [...] The cystic duct margin (en face) and public health representative sections of gallbladder wall are submitted in A1. / 01/27/2021 Gross examination performed at [facility], [facility] [place] [address] Date of Report: 01/28/2021 Date of Procedure: 01/26/2021 Date of Receipt: 01/27/2021 Submitted by: Gonzalo Leon M.D. Location: [facility] Diagnostic interpretation performed at [facility], [facility] [place] [address]. CLIA Number: [id number] [facility] XR CHOLANGIOGRAM INTRAOPon 1 03-28-2020 XR CHOLANGIOGRAM [...] defects are seen. IMPRESSION: 1. As above. Tool Maker: [email or web address] Transcribe Date/Time: Jan 26 2021 3:31P Dictated by : MONICA BENDER MD This examination was interpreted and the report reviewed and electronically signed by: MONICA BENDER MD on Jan 26 2021 3:31PM EST [id number] [facility] LEVY TODD ([id number]) 1995 M Date Time Provider Department 01/23/21 [facility] PROVIDER PREANME During your visit today, we recorded the following information about you: Louise Olson RN 01/23/2021 3:26 PM Addendum Left message on well identified voicemail with call back number for any questions. PATIENT PREOPERATIVE INSTRUCTIONS Dr. Leon has scheduled you for your procedure pm 01/26/21 at this surgery center: [facility]: [phone] -- [address] [facility] [address]. Please read below carefully for your personalized [...] - NO jewelry, body piercings, makeup, nail yi, hairpins or contacts are to be worn [...] Advance Directive, please fax a copy to [phone] or email to [email or web address] for it to be added to your [...] Procedures: - YOU MUST HAVE A RESPONSIBLE IMPERSONATOR CHARACTER TAKE YOU HOME. A JET HANDLER OR CLAIM SPECIALIST CANNOT BE MADE A RESPONSIBLE IMPERSONATOR CHARACTER. - We recommend that a responsible person [...] capsule by (more content not included)... Normal [facility] XR Cervical spine AP and Lat eral and obliqueon 07-08-2020 IMPRESSION: Negative cervical spine X-ray. Tool Maker: [email or web address] Transcribe Date/Time: Jul 08 2020 12:43P Dictated by : JACLYN TURK MD This examination was interpreted and the report reviewed and electronically signed by: JACLYN TURK MD on Jul 08 2020 12:45PM [facility] DIVISION OF RADIOLOGY * * *Final [...] tissues are normal. DIVISION OF RADIOLOGY Provider, [facility] - 07/08/2020 * * *Final Report* * [...] normal. IMPRESSION IMPRESSION: Negative cervical spine X-ray. Tool Maker: KAUSHAL Transcribe Date/Time: Jul 08 2020 12:43P Dictated by : JACLYN TURK MD This examination was interpreted and the report reviewed and electronically signed by: JACLYN TURK MD on Jul 08 2020 12:45PM [facility] Radiology Study observation (narrative) [facility] XR Cervical spine AP and Lat eral and obliqueOrdered By: [facility] Provider on 07-08-2020 [facility] Lipid Panel Fastingon 2019 Cholesterol [Mass/Vol] 147 mg/dL Normal 0-199 [facility] Comment on above: Result Comment: ATP III Cholesterol classification is Desirable. Performed By: #### L IPDF #### [facility] [address] [place] [address] HDL Cholesterol Fasting 39 mg/dL Low 40-59 M [facility] Comment on above: Result Comment: ATP [...] CHD Performed By: #### L IPDF #### [facility] [address] [place] [address] LDL Cholesterol (Calculated) Fasting 83 mg/dL Normal 0-129 [facility] Comment on above: Result Comment: ATP III LDL Classification is Optimal. Performed By: #### L IPDF #### [facility] [address] [place] [address] Triglycerides Fasting 126 mg/dL Normal 0-[address] [facility] Comment on above: Result Comment: ATP III Triglycerides Classification is Normal. Performed By: #### L IPDF #### [facility] [address] [place] [address] BASIC METABOLIC PANELon 03-0 Anion gap [Moles/Vol] 12 mmol/L Normal 0-19 [facility] Comment on above: Performed By: #### B MP #### Main Laboratory [facility] [address] [place] [address] Calcium [Mass/Vol] 9.4 mg/dL Normal 8.5-10.4 [facility] Comment on above: Performed By: #### B MP #### Main Laboratory [facility] [address] [place] [address] Chloride [Moles/Vol] 102 mmol/L Normal 97-107 [facility] Comment on above: Performed By: #### B MP #### [facility] [place] [address] [place] [address] CO2 [Moles/Vol] 24 mmol/L Normal 24-31 [facility] Comment on above: Performed By: #### B MP #### [facility] [place] [address] [place] [address] Creatinine [Mass/Vol] 0.8 mg/dL Normal 0.4-1.6 [facility] Comment on above: Performed By: #### B MP #### [place] [address] [place] [address] GFR/1.73 sq M.predicted MDRD (S/P/Bld) [Vol rate/Area] Normal [facility] Comment on above: Result Comment: 126 GFR ml/min/1.73m2 Stage ----- 90 1 60-89 2 30-59 3 15-29 4 <15 5 For -Americans, multiply EGFR result by 1.210 Calculation not validated for patients under 18 years of age. Performed at [address] [place] [address] Performed By: #### B MP #### [place] [address] [place] [address] Glucose [Mass/Vol] 110 mg/dL High 65-99 [facility] Comment on above: Performed By: #### B MP #### [facility] [place] [address] [place] [address] Potassium [Moles/Vol] 4.0 mmol/L Normal 3.4-5.1 [facility] Comment on above: Performed By: #### B MP #### [facility] [place] [address] [place] [address] Sodium [Moles/Vol] 138 mmol/L Normal 133-145 [facility] Comment on above: Performed By: #### B MP #### [facility] [place] [address] [place] [address] Urea nitrogen [Mass/Vol] 15 mg/dL Normal 8-25 [facility] Comment on above: Performed By: #### B MP #### [facility] [address] [address] Urea nitrogen/Creatinine [Mass ratio] 18.8 RATIO Normal 8-21 [facility] Comment on above: Performed By: #### B MP #### [facility] [address] [address] CBC with Diffon 04-28-2018 AB IMMATURE NEUT 0.02 K/UL Normal 0.0-0.1 [place] Comment on above: Performed By: #### C BCD #### [facility] [address] [address] ABS BASO 0.00 K/UL Normal 0.00-0.22 [facility] Comment on above: Performed By: #### C BCD #### [facility] [address] [address] ABS EOS 0.00 K/UL Normal 0-0.45 [facility] Comment on above: Performed By: #### C BCD #### [facility] [address] [address] ABS NEUTROPHILS 3.13 K/UL Normal 1.8-7.7 [facility] Comment on above: Performed By: #### C BCD #### [facility] [address] [address] ABS.NEUT.CALCULATED Normal [facility] Comment on above: Result Comment: 3.13 Performed at [address] [address] Performed By: #### C BCD #### [facility] [address] [address] Basophils/100 WBC (Bld) 0.00 % Normal 0-1 [facility] Comment on above: Performed By: #### C BCD #### [facility] [address] [address] DIFF TYPE AUTO DIFF Normal [facility] Comment on above: Performed By: #### C BCD #### [facility] [address] [place] [address] Eosinophils/100 WBC (Bld) 0.00 % Normal 0-3 [facility] Comment on above: Performed By: #### C BCD #### [place] [address] [place] [address] Erythrocyte distribution width (RBC) [Ratio] 14.0 % Normal 11.7-15.0 [facility] Comment on above: Performed By: #### C BCD #### [facility] [place] [address] [place] [address] Hematocrit (Bld) [Volume fraction] 40.7 % Low 41-50 [facility] Comment on above: Performed By: #### C BCD #### [place] [address] [place] [address] Hemoglobin (Bld) [Mass/Vol] 13.2 g/dL Low 13.5-16.5 [facility] Comment on above: Performed By: #### C BCD #### [place] [address] [place] [address] Lymphocytes (Bld) [#/Vol] 2.82 10*3/uL Normal 1.2-3.2 [facility] Comment on above: Performed By: #### C BCD #### [place] [address] [place] [address] Lymphocytes/100 WBC (Bld) 42.70 % High 20-40 [facility] Comment on above: Performed By: #### C BCD #### [facility] [place] [address] [place] [address] MCH (RBC) [Entitic mass] 25.6 pg Low 26-34 [facility] Comment on above: Performed By: #### C BCD #### [facility] [place] [address] [place] [address] MCHC (RBC) [Mass/Vol] 32.4 % Normal 31-37 [facility] Comment on above: Performed By: #### C BCD #### [facility] [place] [address] [place] [address] MCV (RBC) [Entitic vol] 78.9 fL Low 80-100 [facility] Comment on above: Performed By: #### C BCD #### [facility] [place] [place] [address] MEAN PLT VOL 8.8 CU Normal 7.0-12.6 [facility] Comment on above: Performed By: #### C BCD #### [facility] [place] [address] [place] [address] Monocytes (Bld) [#/Vol] 0.63 10*3/uL Normal 0-0.8 [facility] Comment on above: Performed By: #### C BCD #### [facility] [place] [address] [place] [address] Monocytes/100 WBC (Bld) 9.50 % High 0-8 [facility] Comment on above: Performed By: #### C BCD #### [facility] [place] [address] [place] [address] Neutrophils/100 WBC (Bld) 0.30 % Normal 0.0-1.0 [facility] Comment on above: Performed By: #### C BCD #### [facility] [place] [address] [place] [address] Neutrophils/100 WBC (Bld) 47.50 % Low 50-70 [facility] Comment on above: Performed By: #### C BCD #### [facility] [place] [address] [place] [address] NRBC'S 0 /100 WBC Normal 0 [facility] Comment on above: Performed By: #### C BCD #### [facility] [place] [address] [place] [address] Platelets (Bld) [#/Vol] 286 10*3/uL Normal 150-450 [facility] Comment on above: Performed By: #### C BCD #### [facility] [place] [address] [place] [address] RBC (Bld) [#/Vol] 5.16 M/UL Normal 4.5-5.5 [facility] Comment on above: Performed By: #### C BCD #### [facility] [place] [address] [place] [address] RDW-SD 39.7 FL Normal 37.0-54.0 [facility] Comment on above: Performed By: #### C BCD #### [facility] [address] [address] WBC (Bld) [#/Vol] 6.6 10*3/uL Normal 4.5-11.0 [facility] Comment on above: Performed By: #### C BCD #### [facility] [address] [address] CHEST 2 VIEWon 04-28-2018 CHEST 2 VIEW *FINAL Date of Service: 04/27/2018 22:33 Adm #: [id number] Reading Dr:DAGOBERTO RENE Signoff Dr: DAGOBERTO RENE [...] Physician: DAGOBERTO RENE MD Original Transcribed by/Date[facility] Apr 27 2018 10:44P Original Electronically Signed by/Date: DAGOBERTO RENE MD Apr 27 2018 10:44P Addendum Interpreting Physician: Addendum Transcribed by/Date: NO ADDENDUM Addendum Electronically Signed by/Date: [facility] CHEST PORTABLEon 04-28-2018 CHEST PORTABLE *FINAL Date of Service: 04/28/2018 00:21 Adm #: [id number] Reading Dr:FERN THORPE Signoff Dr: FERN THORPE [...] 28 2018 7:54A Original Electronically Signed by/Date: FERN THORPE DO Apr 28 2018 7:54A Addendum Interpreting Physician: Addendum Transcribed by/Date: NO ADDENDUM Addendum Electronically Signed by/Date: Normal [facility] D-DIMERon 04-28-2018 D-DIMER Normal 0.19-0.50 [facility] Comment on above: Result Comment: 0.19 LESS [...] IN PATIENTS RECEIVING ANTI-COAGULATION THERAPY. Performed at [place] [address] Performed By: #### D [facility] #### [place] [address] HS TROPONIN Ton 04-28-2018 Troponin T.cardiac [Mass/Vol] Normal 0-4 [facility] Comment on above: Result Comment: 6 LESS [...] administration. Performed By: #### H STROP #### [facility] [address] [address] Result Comment: 0 Performed at [address] [address] Troponin T.cardiac [Mass/Vol] Normal <15 [facility] Comment on above: Result Comment: No p revious result Performed at [address] [address] Performed By: #### H STROP #### [facility] [address] [address] Result Comment: 6 LESS THAN Sex Specific [...] free mass conc 0.95 ng/dL Normal 0.78-2.19 [facility] Comment on above: Performed By: #### F T4M, TSH5 ####[place] [place], [place] Lipid Panelon 12-23-2017 Cholesterol in HDL mass conc 34 mg/dL Low 40-60 [facility] Comment on above: Performed By: #### L IPD2 ####[place] [place], [place] Cholesterol mass conc 129 mg/dL Normal < 200 [facility] Comment on above: Performed By: #### L IPD2 ####[place] [place], [place] Cholesterol.total/Carol sterol in HDL mass ratio 4 Normal [facility] Comment on above: Result Comment: Ref Range:< 3 Low Risk for CHD3-6 Mod Risk for CHD> 6 High Risk for CHD Performed By: #### L IPD2 ####[facility] [place], [place] Protein mass conc 84 mg/dL Normal <100 [facility] Comment on above: Performed By: #### L IPD2 ####[place] [place], [place] Triglyceride mass conc 54 mg/dL Normal <150 [facility] Comment on above: Performed By: #### L IPD2 ####[place] [place], [place] Thyroid Stim. Hormoneon 11-29 Thyroid Stim. Hormone 0.788 u[IU]/mL Normal 0.465-4.68 0 [facility] Comment on above: Performed By: #### F T4M, TSH5 ####[address] CR Knee 3 Views Lefton 12-22 CR Knee 3 Views Left Patient Name: LEVY TODD Diagnostic Radiology Exam Date/Time 12/22/2017 14:39:02 EDT Exam CR Knee 3 Views Left Ordering Physician OLLIE MUJICA Accession Number [id number] CPT4 Codes 93231 () Reason For Exam trauma and pain [...] Transcribed Date and Time: 12/22/2017 5:07 Normal [facility] Vital Signs Date Time Vital Sign Value Performing Clinician Facility 10-23-2024 13:38-0400 Body temperature 97.5 [degF] Dr. Turner Bundy MD Work Phone: 7(166)375-367104 [place] [address] 10-23-2024 13:38-0400 Diastolic blood pressure 80 mm[Hg] Dr. Turner Bundy MD Work Phone: 2(555)213-296004 [place] [address] 10-23-2024 13:38-0400 Heart rate 90 /min Dr. Turner Bundy MD Work Phone: 6(954)163-481904 [place] [address] 10-23-2024 13:38-0400 Respiratory rate 14 /min Dr. Turner Bundy MD Work Phone: 5(369)942-099204 [place] [address] 10-23-2024 13:38-0400 SaO2% (BldA) [Mass fraction] 96 % Dr. Turner Bundy MD Work Phone: 1(224)108-301404 [place] [address] 10-23-2024 13:38-0400 Systolic blood pressure 133 mm[Hg] Dr. Turner Bundy MD Work Phone: 7(184)757-263204 [place] [address] 10-22-2024 19:01-0400 Body mass index (BMI) [Ratio] 35.1 kg/m2 Dr. Turner Bundy MD Work Phone: 7(389)263-719704 [place] [address] 10-22-2024 19:01-0400 Body weight [address] Turner Bundy MD Work Phone: 9(682)760-982304 [place] [address] 10-22-2024 18:04-0400 Body height 187.[address] Turner Bundy MD Work Phone: 1(363)035-312004 [place] [address] 09-12-2024 15:01-0400 Body mass index (BMI) [Ratio] 41.03 kg/m2 Jatin Herrera MD Work Phone: 6(385)007-888090 [place] [address] 09-12-2024 15:01-0400 Body temperature 97.7 [degF] Jatin Herrera MD Work Phone: [facility] 09-12-2024 15:01-0400 Body weight 129.7 kg Jatin Herrera MD Work Phone: [facility] 09-12-2024 15:01-0400 Diastolic blood pressure 80 mm[Hg] Jatin Herrera MD Work Phone: [facility] 09-12-2024 15:01-0400 Heart rate 90 /min Jatin Herrera MD Work Phone: [facility] 09-12-2024 15:01-0400 Respiratory rate 16 /min Jatin Herrera MD Work Phone: [facility] 09-12-2024 15:01-0400 SaO2% (BldA) [Mass fraction] 99 % Jatin Herrera MD Work Phone: [facility] 09-12-2024 15:01-0400 Systolic blood pressure 122 mm[Hg] Jatin Herrera MD Work Phone: [facility] 06-25-2024 10:14-0400 Diastolic blood pressure 72 mm[Hg] Francy Haagen MASH FILTER PRESS OPERATOR.[employer] Work Phone: [facility] 06-25-2024 10:14-0400 Heart rate 74 /min Francy Haagen MASH FILTER PRESS OPERATOR.[employer] Work Phone: [facility] 06-25-2024 10:14-0400 Respiratory rate 16 /min Francy Haagen MASH FILTER PRESS OPERATOR.[employer] Work Phone: [facility] 06-25-2024 10:14-0400 SaO2% (BldA) [Mass fraction] 97 % Francy Haagen MASH FILTER PRESS OPERATOR.[employer] Work Phone: [facility] 06-25-2024 10:14-0400 Systolic blood pressure 134 mm[Hg] Francy Haagen MASH FILTER PRESS OPERATOR.[employer] Work Phone: [facility] 04-10-2024 09:29-0500 Body height 177.8 cm Turner Bundy MD Work Phone: [facility] 04-10-2024 09:29-0500 Body mass index (BMI) [Ratio] 43.62 kg/m2 Turner Bundy MD Work Phone: [facility] 04-10-2024 09:29-0500 Body weight 137.89 kg Turner Bundy MD Work Phone: [facility] 04-10-2024 09:29-0500 Diastolic blood pressure 54 mm[Hg] Turner Bundy MD Work Phone: [facility] 04-10-2024 09:29-0500 Heart rate 86 /min Turner Bundy MD Work Phone: [facility] 04-10-2024 09:29-0500 SaO2% (BldA) [Mass fraction] 96 % Turner Bundy MD Work Phone: [facility] 04-10-2024 09:29-0500 Systolic blood pressure 96 mm[Hg] Turner Bundy MD Work Phone: [facility] 02-27-2024 11:07-0500 Body height 177.8 cm Turner Bundy MD Work Phone: [facility] 02-27-2024 11:07-0500 Body mass index (BMI) [Ratio] 45 kg/m2 Turner Bundy MD Work Phone: [facility] 02-27-2024 11:07-0500 Body temperature 98.2 [degF] Turner Bundy MD Work Phone: [facility] 02-27-2024 11:07-0500 Body weight 142.25 kg Turner Bundy MD Work Phone: [facility] 02-27-2024 11:07-0500 Diastolic blood pressure 72 mm[Hg] Turner Bundy MD Work Phone: [facility] 02-27-2024 11:07-0500 Heart rate 85 /min Turner Bundy MD Work Phone: [facility] 02-27-2024 11:07-0500 SaO2% (BldA) [Mass fraction] 96 % Turner Bundy MD Work Phone: [facility] 02-27-2024 11:07-0500 Systolic blood pressure 110 mm[Hg] Turner Bundy MD Work Phone: [facility] 01-18-2024 08:45-0500 Body mass index (BMI) [Ratio] 45.94 kg/m2 Jina Gayle APRN.[employer] Work Phone: [facility] 01-18-2024 08:45-0500 Body temperature 98.2 [degF] Jina Gayle MASH FILTER PRESS OPERATOR.[employer] Work Phone: [facility] 01-18-2024 08:45-0500 Body weight 148.5 kg Jina Gayle MASH FILTER PRESS OPERATOR.[employer] Work Phone: [facility] 01-18-2024 08:45-0500 Diastolic blood pressure 70 mm[Hg] Jina Gayle MASH FILTER PRESS OPERATOR.[employer] Work Phone: [facility] 01-18-2024 08:45-0500 Heart rate 104 /min Jina Gayle MASH FILTER PRESS OPERATOR.[employer] Work Phone: [facility] 01-18-2024 08:45-0500 Respiratory rate 16 /min Jina Gayle MASH FILTER PRESS OPERATOR.[employer] Work Phone: [facility] 01-18-2024 08:45-0500 SaO2% (BldA) [Mass fraction] 96 % Jina Gayle MASH FILTER PRESS OPERATOR.[employer] Work Phone: [facility] 01-18-2024 08:45-0500 Systolic blood pressure 118 mm[Hg] Jina Gayle MASH FILTER PRESS OPERATOR.[employer] Work Phone: [facility] 12-02-2023 10:33-0400 Body mass index (BMI) [Ratio] 45.32 kg/m2 Turner Bnudy MD Work Phone: [facility] 12-02-2023 10:33-0400 Body weight 146.51 kg Turner Bundy MD Work Phone: [facility] 12-02-2023 10:33-0400 Diastolic blood pressure 72 mm[Hg] Turner Bundy MD Work Phone: [facility] 12-02-2023 10:33-0400 Heart rate 80 /min Turner Bundy MD Work Phone: [facility] 12-02-2023 10:33-0400 SaO2% (BldA) [Mass fraction] 96 % Turner Bundy MD Work Phone: [facility] 12-02-2023 10:33-0400 Systolic blood pressure 122 mm[Hg] Turner Bundy MD Work Phone: [facility] 11-14-2023 11:04-0400 Body height 179.8 cm Pulm Wstr Work Phone: [facility] 11-14-2023 11:04-0400 Body mass index (BMI) [Ratio] 45.32 kg/m2 Pulm Wstr Work Phone: [facility] 11-14-2023 11:040400 Body weight 146.51 kg Pulm Wstr Work Phone: [facility] 11-14-2023 11:04-0400 Heart rate 95 /min Pulm Wstr Work Phone: [facility] 11-14-2023 11:04-0400 Respiratory rate 16 /min Pulm Wstr Work Phone: [facility] 11-14-2023 11:04-0400 SaO2% (BldA) [Mass fraction] 98 % Pulm Wstr Work Phone: [facility] 11-10-2023 14:11-0400 Body mass index (BMI) [Ratio] 45.5 kg/m2 Pamela Nieves APRN.[employer] Work Phone: [facility] 11-10-2023 14:11-0400 Body weight 147.42 kg Pamela Nieves APRN.[employer] Work Phone: [facility] 11-10-2023 14:11-0400 Diastolic blood pressure 76 mm[Hg] Pamela Nieves APRN.[employer] Work Phone: [facility] 11-10-2023 14:11-0400 Heart rate 89 /min Pamela Nieves APRN.[employer] Work Phone: [facility] 11-10-2023 14:11-0400 Respiratory rate 16 /min Pamela Nieves APRN.[employer] Work Phone: [facility] 11-10-2023 14:11-0400 Systolic blood pressure 117 mm[Hg] Pamela Nieves MASH FILTER PRESS OPERATOR.[employer] Work Phone: [facility] 10-24-2023 15:23-0400 Body mass index (BMI) [Ratio] 44.72 kg/m2 Woo Vargas MASH FILTER PRESS OPERATOR.[employer] Work Phone: [facility] 10-24-2023 15:23-0400 Body temperature 98.8 [degF] Woo Vargas MASH FILTER PRESS OPERATOR.[employer] Work Phone: [facility] 10-24-2023 15:23-0400 Body weight 144.9 kg Woo Vargas MASH FILTER PRESS OPERATOR.[employer] Work Phone: [facility] 10-24-2023 15:23-0400 Diastolic blood pressure 78 mm[Hg] Woo Vargas MASH FILTER PRESS OPERATOR.[employer] Work Phone: [facility] 10-24-2023 15:23-0400 Heart rate 80 /min Woo Vargas MASH FILTER PRESS OPERATOR.[employer] Work Phone: [facility] 10-24-2023 15:23-0400 Respiratory rate 18 /min Woo Vargas MASH FILTER PRESS OPERATOR.[employer] Work Phone: [facility] 10-24-2023 15:23-0400 SaO2% (BldA) [Mass fraction] 98 % Woo Vargas MASH FILTER PRESS OPERATOR.[employer] Work Phone: [facility] 10-24-2023 15:23-0400 Systolic blood pressure 134 mm[Hg] Woo Vargas MASH FILTER PRESS OPERATOR.[employer] Work Phone: [facility] 09-19-2023 15:00-0400 Body mass index (BMI) [Ratio] 43.68 kg/m2 Angelina Claudio MASH FILTER PRESS OPERATOR.[employer] Work Phone: [facility] 09-19-2023 15:00-0400 Body temperature 98.49 [degF] Angelina Claudio MASH FILTER PRESS OPERATOR.[employer] Work Phone: [facility] 09-19-2023 15:00-0400 Body weight 141.52 kg Agnelina Claudio MASH FILTER PRESS OPERATOR.[employer] Work Phone: [facility] 09-19-2023 15:00-0400 Diastolic blood pressure 75 mm[Hg] Angelina Suppan MASH FILTER PRESS OPERATOR.[employer] Work Phone: [facility] 09-19-2023 15:00-0400 Heart rate 110 /min Angelina Suppan MASH FILTER PRESS OPERATOR.[employer] Work Phone: [facility] 09-19-2023 15:00-0400 SaO2% (BldA) [Mass fraction] 96 % Angelina Suppan MASH FILTER PRESS OPERATOR.[employer] Work Phone: [facility] 09-19-2023 15:00-0400 Systolic blood pressure 120 mm[Hg] Angelina Suppan MASH FILTER PRESS OPERATOR.[employer] Work Phone: [facility] 08-25-2023 13:18-0400 Body mass index (BMI) [Ratio] 44.04 kg/m2 Jina Gayle MASH FILTER PRESS OPERATOR.[employer] Work Phone: [facility] 08-25-2023 13:18-0400 Body temperature 100.9 [degF] Jina Gayle MASH FILTER PRESS OPERATOR.[employer] Work Phone: [facility] 08-25-2023 13:18-0400 Body weight 142.7 kg Jina Gayle MASH FILTER PRESS OPERATOR.[employer] Work Phone: [facility] 08-25-2023 13:18-0400 Diastolic blood pressure 74 mm[Hg] Jina Gayle MASH FILTER PRESS OPERATOR.[employer] Work Phone: [facility] 08-25-2023 13:18-0400 Heart rate 106 /min Jina Gayle MASH FILTER PRESS OPERATOR.[employer] Work Phone: [facility] 08-25-2023 13:18-0400 Respiratory rate 18 /min Jina Gayle MASH FILTER PRESS OPERATOR.[employer] Work Phone: [facility] 08-25-2023 13:18-0400 SaO2% (BldA) [Mass fraction] 95 % Jina Gayle MASH FILTER PRESS OPERATOR.[employer] Work Phone: [facility] 08-25-2023 13:18-0400 Systolic blood pressure 156 mm[Hg] Jina Alfredgs MASH FILTER PRESS OPERATOR.[employer] Work Phone: [facility] 07-14-2023 13:07-0400 Body mass index (BMI) [Ratio] 42.98 kg/m2 Angelina Suppan MASH FILTER PRESS OPERATOR.FORMING PROCESS WORKER Work Phone: [facility] [facility] 07-14-2023 13:07-0400 Body temperature 98.6 [degF] Angelina Suppan MASH FILTER PRESS OPERATOR.FORMING PROCESS WORKER Work Phone: [facility] 07-14-2023 13:07-0400 Body weight 139.25 kg Angelina Suppan MASH FILTER PRESS OPERATOR.FORMING PROCESS WORKER Work Phone: [facility] 07-14-2023 13:07-0400 Diastolic blood pressure 76 mm[Hg] Angelina Suppan MASH FILTER PRESS OPERATOR.FORMING PROCESS WORKER Work Phone: [facility] 07-14-2023 13:07-0400 Heart rate 96 /min Angelina Suppan MASH FILTER PRESS OPERATOR.FORMING PROCESS WORKER Work Phone: [facility] 07-14-2023 13:07-0400 Respiratory rate 20 /min Angelina Suppan MASH FILTER PRESS OPERATOR.FORMING PROCESS WORKER Work Phone: [facility] 07-14-2023 13:07-0400 SaO2% (BldA) [Mass fraction] 97 % Angelina Suppan MASH FILTER PRESS OPERATOR.FORMING PROCESS WORKER Work Phone: [facility] 07-14-2023 13:07-0400 Systolic blood pressure 124 mm[Hg] Angelina Suppan MASH FILTER PRESS OPERATOR.FORMING PROCESS WORKER Work Phone: [facility] 06-20-2023 15:07-0400 Body mass index (BMI) [Ratio] 43.96 kg/m2 Angelina Suppan MASH FILTER PRESS OPERATOR.FORMING PROCESS WORKER Work Phone: [facility] 06-20-2023 15:07-0400 Body temperature 97.39 [degF] Angelina Suppan MASH FILTER PRESS OPERATOR.FORMING PROCESS WORKER Work Phone: [facility] 06-20-2023 15:07-0400 Body weight 142.43 kg Angelina Suppan MASH FILTER PRESS OPERATOR.FORMING PROCESS WORKER Work Phone: [facility] 06-20-2023 15:07-0400 Diastolic blood pressure 74 mm[Hg] Angelina Suppan MASH FILTER PRESS OPERATOR.FORMING PROCESS WORKER Work Phone: [facility] 06-20-2023 15:07-0400 Heart rate 99 /min Angelina Suppan MASH FILTER PRESS OPERATOR.FORMING PROCESS WORKER Work Phone: [facility] 06-20-2023 15:07-0400 Respiratory rate 16 /min Angelina Suppan MASH FILTER PRESS OPERATOR.FORMING PROCESS WORKER Work Phone: [facility] 06-20-2023 15:07-0400 SaO2% (BldA) [Mass fraction] 97 % Angelina Suppan MASH FILTER PRESS OPERATOR.FORMING PROCESS WORKER Work Phone: [facility] 06-20-2023 15:07-0400 Systolic blood pressure 122 mm[Hg] Angelina Suppan MASH FILTER PRESS OPERATOR.FORMING PROCESS WORKER Work Phone: [facility] 05-30-2023 14:36-0400 Body temperature 97.3 [degF] Angelina Suppan MASH FILTER PRESS OPERATOR.FORMING PROCESS WORKER Work Phone: [facility] 05-30-2023 14:36-0400 Body weight 139.71 kg Angelina Suppan MASH FILTER PRESS OPERATOR.FORMING PROCESS WORKER Work Phone: [facility] 05-30-2023 14:36-0400 Diastolic blood pressure 76 mm[Hg] Angelina Suppan MASH FILTER PRESS OPERATOR.FORMING PROCESS WORKER Work Phone: [facility] 05-30-2023 14:36-0400 Heart rate 84 /min Angelina Suppan MASH FILTER PRESS OPERATOR.FORMING PROCESS WORKER Work Phone: [facility] 05-30-2023 14:36-0400 Respiratory rate 20 /min Angelina Suppan MASH FILTER PRESS OPERATOR.FORMING PROCESS WORKER Work Phone: [facility] 05-30-2023 14:36-0400 SaO2% (BldA) [Mass fraction] 97 % Angelina Suppan MASH FILTER PRESS OPERATOR.FORMING PROCESS WORKER Work Phone: [facility] 05-30-2023 14:36-0400 Systolic blood pressure 120 mm[Hg] Angelina Suppan MASH FILTER PRESS OPERATOR.FORMING PROCESS WORKER Work Phone: [facility] 05-02-2023 15:46-0500 Body weight 139.25 kg Angelina Suppan MASH FILTER PRESS OPERATOR.FORMING PROCESS WORKER Work Phone: [facility] 05-02-2023 15:46-0500 Diastolic blood pressure 74 mm[Hg] Angelina Suppan MASH FILTER PRESS OPERATOR.FORMING PROCESS WORKER Work Phone: [facility] 05-02-2023 15:46-0500 Heart rate 97 /min Angelina Suppan MASH FILTER PRESS OPERATOR.FORMING PROCESS WORKER Work Phone: [facility] 05-02-2023 15:46-0500 Respiratory rate 20 /min Angelina Suppan MASH FILTER PRESS OPERATOR.FORMING PROCESS WORKER Work Phone: [facility] 05-02-2023 15:46-0500 SaO2% (BldA) [Mass fraction] 96 % Angelina Suppan MASH FILTER PRESS OPERATOR.FORMING PROCESS WORKER Work Phone: [facility] 05-02-2023 15:46-0500 Systolic blood pressure 118 mm[Hg] Angelina Suppan MASH FILTER PRESS OPERATOR.FORMING PROCESS WORKER Work Phone: [facility] 04-18-2023 15:51-0500 Body temperature 98.2 [degF] [facility] 04-18-2023 15:51-0500 Diastolic blood pressure 83 mm[Hg] [facility] 04-18-2023 15:51-0500 Heart rate 95 /min [facility] 04-18-2023 15:51-0500 Respiratory rate 20 /min [facility] 04-18-2023 15:51-0500 SaO2% (BldA) [Mass fraction] 100 % [facility] 04-18-2023 15:51-0500 Systolic blood pressure 130 mm[Hg] [facility] 04-17-2023 15:12-0500 Body height 175.26 cm [facility] 04-17-2023 15:12-0500 Body mass index (BMI) [Ratio] 45.8 kg/m2 [facility] 04-17-2023 15:12-0500 Body weight 140.7 kg [facility] 04-12-2023 14:01-0500 Diastolic blood pressure 74 mm[Hg] Francy Haagen MASH FILTER PRESS OPERATOR.HOSPITALITY WORKERS Work Phone: [facility] 04-12-2023 14:01-0500 Heart rate 107 /min Francy Haagen MASH FILTER PRESS OPERATOR.HOSPITALITY WORKERS Work Phone: [facility] 04-12-2023 14:01-0500 Respiratory rate 16 /min Francy Haagen MASH FILTER PRESS OPERATOR.HOSPITALITY WORKERS Work Phone: [facility] 04-12-2023 14:01-0500 SaO2% (BldA) [Mass fraction] 95 % Francy Haagen MASH FILTER PRESS OPERATOR.HOSPITALITY WORKERS Work Phone: [facility] 04-12-2023 14:01-0500 Systolic blood pressure 122 mm[Hg] Francy Haagen MASH FILTER PRESS OPERATOR.HOSPITALITY WORKERS Work Phone: [facility] 04-06-2023 17:17-0500 Body temperature 98.6 [degF] Woo Sam MASH FILTER PRESS OPERATOR.HOSPITALITY WORKERS Work Phone: [facility] 04-06-2023 17:17-0500 Body weight 142.52 kg Woo Sam MASH FILTER PRESS OPERATOR.HOSPITALITY WORKERS Work Phone: [facility] 04-06-2023 17:17-0500 Diastolic blood pressure 82 mm[Hg] Woo Sam MASH FILTER PRESS OPERATOR.HOSPITALITY WORKERS Work Phone: [facility] 04-06-2023 17:17-0500 Heart rate 109 /min Woo Sam MASH FILTER PRESS OPERATOR.HOSPITALITY WORKERS Work Phone: [facility] 04-06-2023 17:17-0500 Respiratory rate 16 /min Woo Sam MASH FILTER PRESS OPERATOR.HOSPITALITY WORKERS Work Phone: [facility] 04-06-2023 17:17-0500 SaO2% (BldA) [Mass fraction] 95 % Woo Sam MASH FILTER PRESS OPERATOR.HOSPITALITY WORKERS Work Phone: [facility] 04-06-2023 17:17-0500 Systolic blood pressure 112 mm[Hg] Woo Sam MASH FILTER PRESS OPERATOR.HOSPITALITY WORKERS Work Phone: [facility] 03-10-2023 09:42-0500 Body height 175.26 cm [facility] 03-10-2023 09:42-0500 Body mass index (BMI) [Ratio] 46.4 kg/m2 [facility] 03-10-2023 09:42-0500 Body temperature 97.5 [degF] [facility] 03-10-2023 09:42-0500 Body weight 142.65 kg [facility] 03-10-2023 09:42-0500 Diastolic blood pressure 83 mm[Hg] [facility] 03-10-2023 09:42-0500 Heart rate 92 /min [facility] 03-10-2023 09:42-0500 Respiratory rate 18 /min [facility] 03-10-2023 09:42-0500 SaO2% (BldA) [Mass fraction] 98 % [facility] 03-10-2023 09:42-0500 Systolic blood pressure 155 mm[Hg] [facility] 12-06-2022 14:01-0400 Body temperature 98.49 [degF] Jatin Herrera MD Work Phone: [facility] 12-06-2022 14:01-0400 Body weight 143.34 kg Jatin Herrera MD Work Phone: [facility] 12-06-2022 14:01-0400 Diastolic blood pressure 66 mm[Hg] Jatin Herrera MD Work Phone: [facility] 12-06-2022 14:01-0400 Heart rate 102 /min Jatin Herrera MD Work Phone: [facility] 12-06-2022 14:01-0400 Respiratory rate 16 /min Jatin Herrera MD Work Phone: [facility] 12-06-2022 14:01-0400 SaO2% (BldA) [Mass fraction] 95 % Jatin Herrera MD Work Phone: [facility] 12-06-2022 14:01-0400 Systolic blood pressure 124 mm[Hg] Jatin Herrera MD Work Phone: [facility] 10-20-2022 16:22-0400 Body weight 141.34 kg Turner Bundy MD Work Phone: [facility] 10-20-2022 16:22-0400 Diastolic blood pressure 62 mm[Hg] Turner Bundy MD Work Phone: [facility] 10-20-2022 16:22-0400 Heart rate 87 /min Turner Bundy MD Work Phone: [facility] 10-20-2022 16:22-0400 Respiratory rate 16 /min Turner Bundy MD Work Phone: [facility] 10-20-2022 16:22-0400 SaO2% (BldA) [Mass fraction] 97 % Turner Bundy MD Work Phone: [facility] 10-20-2022 16:22-0400 Systolic blood pressure 112 mm[Hg] Turner Bundy MD Work Phone: [facility] 10-13-2022 16:22-0400 Body weight 139.71 kg Turner Bundy MD Work Phone: [facility] 10-13-2022 16:22-0400 Diastolic blood pressure 75 mm[Hg] Turner Bundy MD Work Phone: [facility] 10-13-2022 16:22-0400 Heart rate 100 /min Turner Bundy MD Work Phone: [facility] 10-13-2022 16:22-0400 SaO2% (BldA) [Mass fraction] 96 % Turner Bundy MD Work Phone: [facility] 10-13-2022 16:22-0400 Systolic blood pressure 112 mm[Hg] Turner Bundy MD Work Phone: [facility] 10-11-2022 22:22-0400 Respiratory rate 18 /min [facility] 10-11-2022 20:33-0400 Body height 175.26 cm [facility] 10-11-2022 20:33-0400 Body mass index (BMI) [Ratio] 45.5 kg/m2 [facility] 10-11-2022 20:33-0400 Body temperature 98.3 [degF] [facility] 10-11-2022 20:33-0400 Body weight 139.88 kg [facility] 10-11-2022 20:33-0400 Diastolic blood pressure 82 mm[Hg] [facility] 10-11-2022 20:33-0400 Heart rate 94 /min [facility] 10-11-2022 20:33-0400 SaO2% (BldA) [Mass fraction] 96 % [facility] 10-11-2022 20:33-0400 Systolic blood pressure 144 mm[Hg] [facility] 09-13-2022 15:14-0400 Body weight 138.8 kg Turner Bundy MD Work Phone: [facility] 09-13-2022 15:14-0400 Diastolic blood pressure 74 mm[Hg] Turner Bundy MD Work Phone: [facility] 09-13-2022 15:14-0400 Heart rate 101 /min Turner Bundy MD Work Phone: [facility] 09-13-2022 15:14-0400 SaO2% (BldA) [Mass fraction] 95 % Turner Bundy MD Work Phone: [facility] 09-13-2022 15:14-0400 Systolic blood pressure 110 mm[Hg] Turner Bundy MD Work Phone: [facility] 09-03-2022 16:05-0400 Body height 185.4 cm Turner Bundy MD Work Phone: [facility] 09-03-2022 16:05-0400 Body temperature 99.81 [degF] Turner Bundy MD Work Phone: [facility] 09-03-2022 16:05-0400 Body weight 141.16 kg Turner Bundy MD Work Phone: [facility] 09-03-2022 16:05-0400 Diastolic blood pressure 64 mm[Hg] Turner Bundy MD Work Phone: [facility] 09-03-2022 16:05-0400 Heart rate 95 /min Turner Bundy MD Work Phone: [facility] 09-03-2022 16:05-0400 SaO2% (BldA) [Mass fraction] 95 % Turner Bundy MD Work Phone: [facility] 09-03-2022 16:05-0400 Systolic blood pressure 108 mm[Hg] Turner Bundy MD Work Phone: [facility] 08-19-2022 10:33-0400 Body temperature 98.8 [degF] Krislyn Aberegg PA Work Phone: [facility] 08-19-2022 10:33-0400 Body weight 140.07 kg Krislyn Aberegg PA Work Phone: [facility] 08-19-2022 10:33-0400 Diastolic blood pressure 68 mm[Hg] Krislyn Aberegg PA Work Phone: [facility] 08-19-2022 10:33-0400 Heart rate 122 /min Krislyn Aberegg PA Work Phone: [facility] 08-19-2022 10:33-0400 Respiratory rate 20 /min Krislyn Aberegg PA Work Phone: [facility] 08-19-2022 10:33-0400 SaO2% (BldA) [Mass fraction] 96 % Krislyn Aberegg PA Work Phone: [facility] 08-19-2022 10:33-0400 Systolic blood pressure 112 mm[Hg] Krislyn Aberegg PA Work Phone: [facility] 08-17-2022 14:11-0400 Body height 185.4 cm Krislyn Aberegg PA Work Phone: [facility] 08-17-2022 14:11-0400 Body temperature 100.4 [degF] Krislyn Aberegg PA Work Phone: [facility] 08-17-2022 14:11-0400 Body weight 140.16 kg Krislyn Aberegg PA Work Phone: [facility] 08-17-2022 14:11-0400 Diastolic blood pressure 72 mm[Hg] Krislyn Aberegg PA Work Phone: [facility] 08-17-2022 14:11-0400 Heart rate 112 /min Krislyn Aberegg PA Work Phone: [facility] 08-17-2022 14:11-0400 Respiratory rate 16 /min Krislyn Aberegg PA Work Phone: [facility] 08-17-2022 14:11-0400 Systolic blood pressure 128 mm[Hg] Krislyn Aberegg PA Work Phone: [facility] 07-01-2022 16:12-0400 Body height 185.4 cm Turner Bundy MD Work Phone: [facility] 07-01-2022 16:12-0400 Body weight 144.24 kg Turner Bundy MD Work Phone: [facility] 07-01-2022 16:12-0400 Diastolic blood pressure 70 mm[Hg] Turner Bundy MD Work Phone: [facility] 07-01-2022 16:12-0400 Heart rate 79 /min Turner Bundy MD Work Phone: [facility] 07-01-2022 16:12-0400 SaO2% (BldA) [Mass fraction] 96 % Turner Bundy MD Work Phone: [facility] 07-01-2022 16:12-0400 Systolic blood pressure 112 mm[Hg] Turner Bundy MD Work Phone: [facility] 06-29-2022 16:13-0400 Body height 185.4 cm Turner Bundy MD Work Phone: [facility] 06-29-2022 16:13-0400 Body temperature 97 [degF] Turner Bundy MD Work Phone: [facility] 06-29-2022 16:13-0400 Body weight 144.24 kg Turner Bundy MD Work Phone: [facility] 06-29-2022 16:13-0400 Diastolic blood pressure 62 mm[Hg] Turner Bundy MD Work Phone: [facility] 06-29-2022 16:13-0400 Heart rate 78 /min Turner Bundy MD Work Phone: [facility] 06-29-2022 16:13-0400 SaO2% (BldA) [Mass fraction] 96 % Turner Bundy MD Work Phone: [facility] 06-29-2022 16:13-0400 Systolic blood pressure 90 mm[Hg] Turner Bundy MD Work Phone: [facility] 06-03-2022 09:52-0400 Diastolic blood pressure 69 mm[Hg] [facility] 06-03-2022 09:52-0400 Heart rate 84 /min [facility] 06-03-2022 09:52-0400 Respiratory rate 16 /min [facility] 06-03-2022 09:52-0400 SaO2% (BldA) [Mass fraction] 95 % [facility] 06-03-2022 09:52-0400 Systolic blood pressure 132 mm[Hg] [facility] 06-02-2022 16:56-0400 Body height 182.88 cm [facility] 06-02-2022 16:56-0400 Body mass index (BMI) [Ratio] 43.3 kg/m2 [facility] 06-02-2022 16:56-0400 Body temperature 96.1 [degF] [facility] 06-02-2022 16:56-0400 Body weight 145.05 kg [facility] 04-23-2022 00:20-0500 SaO2% (BldA) [Mass fraction] 98 % [facility] 04-22-2022 19:43-0500 Diastolic blood pressure 75 mm[Hg] [facility] 04-22-2022 19:43-0500 Heart rate 89 /min [facility] 04-22-2022 19:43-0500 Respiratory rate 12 /min [facility] 04-22-2022 19:43-0500 Systolic blood pressure 140 mm[Hg] [facility] 04-22-2022 19:01-0500 Body temperature 98.2 [degF] [facility] 04-22-2022 16:53-0500 Body height 182.88 cm [facility] 04-22-2022 16:53-0500 Body mass index (BMI) [Ratio] 43.9 kg/m2 [facility] 04-22-2022 16:53-0500 Body weight 146.96 kg [facility] 03-24-2022 11:32-0500 Body temperature 97.7 [degF] Jatin Herrera MD Work Phone: [facility] 03-24-2022 11:32-0500 Body weight 146.06 kg Jatin Herrera MD Work Phone: [facility] 03-24-2022 11:32-0500 Diastolic blood pressure 80 mm[Hg] Jatin Herrera MD Work Phone: [facility] 03-24-2022 11:32-0500 Heart rate 116 /min Jatin Herrera MD Work Phone: [facility] 03-24-2022 11:32-0500 Respiratory rate 18 /min Jatin Herrera MD Work Phone: [facility] 03-24-2022 11:32-0500 SaO2% (BldA) [Mass fraction] 96 % Jatin Herrera MD Work Phone: [facility] 03-24-2022 11:32-0500 Systolic blood pressure 122 mm[Hg] Jatin Herrera MD Work Phone: [facility] 09-03-2021 02:20-0400 Heart rate 88 /min [facility] Work Phone: 09-03-2021 02:20-0400 Respiratory rate 15 /min [facility] Work Phone: 09-03-2021 02:20-0400 SaO2% (BldA) [Mass fraction] 99 % [facility] Work Phone: 09-02-2021 22:00-0400 Diastolic blood pressure 78 mm[Hg] [facility] Work Phone: 09-02-2021 22:00-0400 Systolic blood pressure 129 mm[Hg] [facility] Work Phone: 09-02-2021 14:51-0400 Body height 182.88 cm [facility] Work Phone: 09-02-2021 14:51-0400 Body mass index (BMI) [Ratio] 42.1 kg/m2 [facility] Work Phone: 09-02-2021 14:51-0400 Body temperature 97.7 [degF] [facility] Work Phone: 09-02-2021 14:51-0400 Body weight 141.06 kg [facility] Work Phone: 08-18-2021 01:10-0400 Diastolic blood pressure 63 mm[Hg] [facility] Work Phone: 08-18-2021 01:10-0400 Heart rate 73 /min [facility] Work Phone: 08-18-2021 01:10-0400 Respiratory rate 16 /min [facility] Work Phone: 08-18-2021 01:10-0400 SaO2% (BldA) [Mass fraction] 95 % [facility] Work Phone: 08-18-2021 01:10-0400 Systolic blood pressure 103 mm[Hg] [facility] Work Phone: 08-17-2021 21:57-0400 Body height 177.8 cm [facility] Work Phone: 08-17-2021 21:57-0400 Body mass index (BMI) [Ratio] 45.3 kg/m2 [facility] Work Phone: 08-17-2021 21:57-0400 Body temperature 97 [degF] [facility] Work Phone: 08-17-2021 21:57-0400 Body weight 143.15 kg [facility] Work Phone: 05-25-2021 10:32-0400 Body temperature 97.59 [degF] Jatin Herrera MD Work Phone: [facility] 05-25-2021 10:32-0400 Body weight 138.8 kg Jatin Herrera MD Work Phone: [facility] 05-25-2021 10:32-0400 Diastolic blood pressure 72 mm[Hg] Jatin Herrera MD Work Phone: [facility] 05-25-2021 10:32-0400 Heart rate 104 /min Jatin Herrera MD Work Phone: [facility] 05-25-2021 10:32-0400 Respiratory rate 20 /min Jatin Herrera MD Work Phone: [facility] 05-25-2021 10:32-0400 SaO2% (BldA) [Mass fraction] 96 % Jatin Herrera MD Work Phone: [facility] 05-25-2021 10:32-0400 Systolic blood pressure 122 mm[Hg] Jatin Herrera MD Work Phone: [facility] Encounters Encounter Date Encounter Type Care Provider Facility Start: 10-23-2024 End: 10-30-2024 Evaluation and management of inpatient PCP [facility] Start: 10-22-2024 End: 10-23-2024 Emergency department patient visit Dr. Turner Bundy MD Work Phone: -Emergency Department Work Phone: Start: 09-12-2024 End: 09-12-2024 Office outpatient visit 15 minutes Jatin Herrera MD Work Phone: [facility] Comment on above: Sore throat (Primary Dx) Start: 09-12-2024 End: 09-12-2024 ambulatory TURNER NIHARIKA Facility:[facility] Start: 08-28-2024 End: 08-28-2024 Patient encounter procedure Fern Solares Work Phone: Podiatry Comment on above: Onychomycosis (Prima ry Dx); Pain in toe of right foot Start: 08-28-2024 End: 08-29-2024 ambulatory FERN SOLARES Facility:[facility] Start: 06-26-2024 End: 06-27-2024 Refill Fern Solares Work Phone: Podiatry Comment on above: Refill Request Start: 06-25-2024 End: 06-26-2024 Follow-up encounter Francy Mittal APRN.CNP Work Phone: [facility] Start: 06-25-2024 End: 06-25-2024 Office outpatient visit 15 minutes Francy Mittal APRN.CNP Work Phone: [facility] Comment on above: Seasonal allergies ( Primary Dx); Nasal congestion; Sore throat; Acute upper respiratory infection, unspecified; Schizoaffective disorder, bipolar type (HCC) Start: 06-25-2024 End: 06-25-2024 ambulatory FRANCY MITTAL Facility:[facility] Start: 04-13-2024 End: 04-13-2024 ambulatory Dee Craig NP Facility:[facility] Start: 04-10-2024 End: 04-10-2024 ambulatory TURNER BUNDY Facility:[facility] Start: 04-10-2024 End: 04-10-2024 Patient encounter procedure Turner Bundy MD Work Phone: [facility] Comment on above: 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); Mild intermittent asthma without complication; Attention deficit hyperactivity disorder (ADHD), unspecified ADHD type; Psychogenic nonepileptic seizure; Schizoaffective disorder, bipolar type (HCC); Asperger's syndrome; Obesity, Class III, BMI >= 40; Acute midline thoracic back pain Start: 03-27-2024 End: 03-27-2024 Refill Turner Bundy MD Work Phone: [facility] Comment on above: Refill Request Start: 02-27-2024 End: 02-27-2024 ambulatory [facility] Facility:[facility] Start: 02-27-2024 End: 02-27-2024 Patient encounter procedure Turner Bundy MD Work Phone: [facility] Comment on above: Schizoaffective diso rder, unspecified type (HCC) (Primary Dx); Attention deficit hyperactivity disorder (ADHD), unspecified ADHD type; Asperger's syndrome; Mild intermittent asthma without complication; Acute non-recurrent frontal sinusitis Start: 02-15-2024 End: 02-15-2024 Refill Turner Bundy MD Work Phone: [facility] Comment on above: Refill Request Start: 02-14-2024 End: 02-14-2024 Refill Turner Bundy MD Work Phone: [facility] Comment on above: Refill Request Start: 02-09-2024 End: 02-09-2024 Refill Turner Bundy MD Work Phone: [facility] Comment on above: Refill Request Start: 01-18-2024 End: 01-18-2024 Subsequent hospital visit by physician [facility] Work Phone: Radiology Comment on above: Acute cough [R05.1] Start: 01-18-2024 End: 01-18-2024 [facility] Facility:[facility] Start: 01-18-2024 End: 01-18-2024 Patient encounter procedure Jina Gayle APRN.CNP Work Phone: [facility] Comment on above: Pharyngitis, unspeci fied etiology (Primary Dx); Acute cough; URI, acute Start: 01-04-2024 End: 01-13-2024 Evaluation and management of inpatient [facility] [facility] Start: 01-03-2024 End: 01-04-2024 Emergency department patient visit Mitzi [facility] Facility:[facility] Start: 12-17-2023 End: 12-22-2023 Evaluation and management of inpatient TANGELA PERSON [facility] Start: 12-15-2023 End: 12-17-2023 Emergency department patient visit Jonnie Boland Facility:[facility] Start: 12-05-2023 End: 12-05-2023 Telephone encounter Angelina Claudio APRN.HOSPITALITY WORKERS Work Phone: [facility] [place] Start: 12-02-2023 End: 12-02-2023 ambulatory TURNER BUNDY Facility:[facility] Start: 12-02-2023 End: 12-02-2023 Patient encounter procedure Turner Bundy MD Work Phone: [facility] [place] Comment on above: Palpitations (Primar y Dx); Anemia, unspecified type; Hypokalemia; Hyperglycemia; Need for vaccination Start: 11-28-2023 End: 11-28-2023 Telephone encounter Turner Bundy MD Work Phone: [facility] [place] Comment on above: [facility] ER f/u 11-27-23 Start: 11-27-2023 End: 11-27-2023 Emergency department patient visit Alex Membreno Facility:[facility] Start: 11-25-2023 End: 11-25-2023 Refill Turner Bundy MD Work Phone: [facility] [place] Comment on above: Refill Request Start: 11-17-2023 End: 11-17-2023 Telephone encounter Pamela Nieves APRN.HOSPITALITY WORKERS [facility] Phone: [facility] Comment on above: Results Start: 11-14-2023 End: 11-14-2023 ambulatory [facility] Work Phone: [facility] Comment on above: Spirometry Start: 11-14-2023 End: 11-14-2023 Patient encounter procedure [facility] Work Phone: [facility] Start: 11-11-2023 End: 11-15-2023 Telephone encounter Pamela Nieves APRN.HOSPITALITY WORKERS Work Phone: [facility] Comment on above: Results Start: 11-10-2023 End: 11-10-2023 Patient encounter procedure Pamela Nieves MASH FILTER PRESS OPERATOR.HOSPITALITY WORKERS Work Phone: [facility] Comment on above: Chronic cough (Prima ry Dx); LYNN (dyspnea on exertion); Mild intermittent asthma without complication Start: 11-10-2023 End: 11-10-2023 Subsequent hospital visit by physician Vanesa [facility] [place] Work Phone: Radiology Comment on above: Chronic cough [R05.3 ] Start: 11-10-2023 End: 11-10-2023 ambulatory PAMELA NIEVES Facility:[facility] Start: 10-24-2023 End: 10-24-2023 ambulatory TURNER BUNDY Facility:[facility] Start: 10-24-2023 End: 10-24-2023 Patient encounter procedure Woo Vargas APRN.HOSPITALITY WORKERS Work Phone: [facility] Comment on above: Sore throat (Primary Dx); Diarrhea, unspecified type Start: 09-19-2023 End: 09-19-2023 ambulatory ANGELINA A SUPPAN Facility:[facility] Start: 09-19-2023 End: 09-19-2023 Office outpatient visit 25 minutes Angelina A González MASH FILTER PRESS OPERATOR.HOSPITALITY WORKERS Work Phone: [facility] Comment on above: Gastroesophageal ref lux disease without esophagitis (Primary Dx); Left upper quadrant abdominal pain; Attention deficit hyperactivity disorder (ADHD), other type; Psychogenic nonepileptic seizure; Asperger's syndrome; Mild intermittent asthma without complication; Schizoaffective disorder, bipolar type (HCC); Lactose intolerance Start: 09-06-2023 Refill Turner Bundy MD Work Phone: [facility] Comment on above: Opened In Error Start: 08-25-2023 End: 08-25-2023 Subsequent hospital visit by physician Vanesa [facility] [place] Work Phone: Radiology Comment on above: Acute cough [R05.1] Start: 08-25-2023 End: 08-25-2023 Patient encounter procedure Jina Gayle MASH FILTER PRESS OPERATOR.HOSPITALITY WORKERS Work Phone: [facility] Comment on above: Acute cough (Primary Dx); URI, acute Start: 08-03-2023 Refill Turner Bundy MD Work Phone: [facility] [place] Comment on above: Refill Request Start: 08-01-2023 Telephone encounter Turner Bundy MD Work Phone: [facility] [place] Comment on above: Insurance Authorizat ion (Lidocaine patches) Start: 07-29-2023 Refill Turner Bundy MD Work Phone: [facility] [place] Comment on above: Refill Request Start: 07-22-2023 Refill Turner Bundy MD Work Phone: [facility] [place] Comment on above: Refill Request Start: 07-14-2023 End: 07-14-2023 Office outpatient visit 15 minutes Angelina A Suppan MASH FILTER PRESS OPERATOR.FORMING PROCESS WORKER Work Phone: [facility] [place] Comment on above: Acute non-recurrent maxillary sinusitis (Primary Dx); Encounter for screening for human immunodeficiency virus (HIV); Fatigue associated with AIDS (HCC); Body mass index (BMI) 40.0-44.9, adult ([facility]) Start: 06-20-2023 End: 06-20-2023 Office outpatient visit 15 minutes Angelina A Suppan MASH FILTER PRESS OPERATOR.FORMING PROCESS WORKER Work Phone: [facility] [place] Comment on above: Acute maxillary sinu sitis, recurrence not specified (Primary Dx) Start: 05-31-2023 Telephone encounter Angelina A Suppan MASH FILTER PRESS OPERATOR.FORMING PROCESS WORKER Work Phone: [facility] [place] Comment on above: note for work Start: 05-30-2023 End: 05-30-2023 Office outpatient visit 15 minutes Angelina A Suppan MASH FILTER PRESS OPERATOR.FORMING PROCESS WORKER Work Phone: [facility] [place] Comment on above: Pharyngitis, unspeci fied etiology (Primary Dx); Acute bronchitis, unspecified organism Start: 05-03-2023 Telephone encounter Angelina A Suppan MASH FILTER PRESS OPERATOR.FORMING PROCESS WORKER Work Phone: [facility] [place] Start: 05-02-2023 End: 05-02-2023 Office outpatient visit 15 minutes Angelina A Suppan MASH FILTER PRESS OPERATOR.FORMING PROCESS WORKER Work Phone: [facility] Comment on above: Schizoaffective diso rder, bipolar type (HCC) (Primary Dx); Abdominal pain, unspecified abdominal location; Encounter for immunization Start: 04-17-2023 End: 04-18-2023 [facility] Start: 04-12-2023 End: 04-12-2023 Office outpatient visit 15 minutes Francy Mittal MASH FILTER PRESS OPERATOR.HOSPITALITY WORKERS Work Phone: [facility] Comment on above: Dermatitis (Primary Dx) Start: 04-06-2023 End: 04-06-2023 Patient encounter procedure Woo Vargas MASH FILTER PRESS OPERATOR.HOSPITALITY WORKERS Work Phone: [facility] Comment on above: Skin irritation (Karin jaimee Dx) Start: 03-23-2023 Telephone encounter Turner Bundy MD Work Phone: [facility] Comment on above: Insurance Authorizat ion (Fluticasone) Start: 03-22-2023 End: 03-22-2023 Subsequent hospital visit by physician Xr [facility] Work Phone: Radiology Comment on above: Bronchitis [J40] Start: 03-10-2023 End: 03-10-2023 [facility] Start: 01-03-2023 End: 01-03-2023 Patient encounter procedure Fern Solares Work Phone: Podiatry Comment on above: Pain of toe of right foot (Primary Dx); Right foot pain Start: 12-28-2022 Refill Turner Bundy MD Work Phone: [facility] Comment on above: Refill Request Start: 12-17-2022 End: 12-17-2022 Subsequent hospital visit by physician Xr [facility] Work Phone: Radiology Comment on above: Pain of toe of right foot [M79.674] Start: 12-17-2022 End: 12-17-2022 Patient encounter procedure Fern Solares Work Phone: Podiatry Comment on above: Pain of toe of right foot (Primary Dx); Repetitive stress injury Start: 12-08-2022 Telephone encounter Fern Narvaez Work Phone: Podiatry Comment on above: Patient Update; Ana ent Question Start: 12-06-2022 End: 12-06-2022 Patient encounter procedure Jatin Herrera MD Work Phone: [facility] Comment on above: Acute non-recurrent sinusitis, unspecified location (Primary Dx); Bilateral impacted cerumen Start: 12-03-2022 Refill Turner Bundy MD Work Phone: [facility] Comment on above: Refill Request Start: 11-25-2022 End: 11-25-2022 ambulatory [facility] Work Phone: Start: 11-25-2022 End: 11-25-2022 Patient encounter procedure [facility] Work Phone: Start: 11-06-2022 ambulatory Fern Testra galvin Work Phone: Podiatry Comment on above: xrays Start: 11-06-2022 E-mail encounter fro m caregiver Fern Solares Work Phone[facility] Start: 11-03-2022 End: 11-03-2022 Subsequent hospital visit by physician Vanesa [facility] Work Phone: Radiology Comment on above: Pain of toe of right foot [M79.674] Start: 11-03-2022 End: 11-03-2022 Patient encounter procedure Fern Solares Work Phone: Podiatry Comment on above: Pain of toe of right foot Start: 10-20-2022 End: 10-20-2022 Patient encounter procedure Turner Bundy MD Work Phone: [facility] Comment on above: Right ear pain (Prim abdi Dx); Impacted cerumen of right ear Start: 10-13-2022 End: 10-13-2022 Patient encounter procedure Turner Bundy MD Work Phone: [facility] Comment on above: Pain of toe of right foot (Primary Dx) Start: 10-11-2022 End: 10-11-2022 [facility] Start: 09-13-2022 End: 09-13-2022 Patient encounter procedure Turner Bundy MD Work Phone: [facility] [place] Comment on above: Bronchitis (Primary Dx) Start: 09-03-2022 End: 09-03-2022 Subsequent hospital visit by physician Xr [facility] Work Phone: Radiology Comment on above: Bronchitis [J40] Start: 09-03-2022 End: 09-03-2022 Patient encounter procedure Turner Bundy MD Work Phone: [facility] [place] Comment on above: Bronchitis (Primary Dx); Mild intermittent asthma without complication Start: 09-03-2022 Telephone encounter Turner Bundy MD Work Phone: [facility] [place] Comment on above: Patient Update Start: 09-02-2022 Telephone encounter Turner Bundy MD Work Phone: [facility] Comment on above: Patient Question Start: 08-19-2022 End: 08-19-2022 Patient encounter procedure Anoop ZABALA Work Phone: [facility] Comment on above: Acute otitis media, left (Primary Dx) Start: 08-17-2022 End: 08-17-2022 Patient encounter procedure Anoop Bansal Aberegg PA Work Phone: [facility] Comment on above: Sore throat (Primary Dx) Start: 07-27-2022 Refill Turner Bundy MD Work Phone: [facility] [place] Comment on above: Refill Request Start: 07-02-2022 End: 07-02-2022 Subsequent hospital visit by physician Xr [facility] Work Phone: Radiology Comment on above: Abdominal pain, unsp ecified abdominal location [R10.9] Start: 07-01-2022 End: 07-01-2022 Patient encounter procedure Turner Bundy MD Work Phone: [facility] Comment on above: Generalized abdomina l pain (Primary Dx) Start: 07-01-2022 Telephone encounter Turner Bundy MD Work Phone: [facility] Comment on above: Results Start: 06-30-2022 Telephone encounter Turner Bundy MD Work Phone: [facility] Comment on above: Results Start: 06-29-2022 End: 06-29-2022 Subsequent hospital visit by physician [facility] [place] Work Phone: Radiology Comment on above: Epigastric pain [R10 .13] Start: 06-29-2022 End: 06-29-2022 Patient encounter procedure Turner Bundy MD Work Phone: [facility] Comment on above: Epigastric pain (Karin jaimee Dx); Left upper quadrant abdominal pain; Medication monitoring encounter Start: 06-02-2022 End: 06-03-2022 [facility] Start: 05-02-2022 ambulatory Ms. Agata Caldwell Fa cility:[id number] Start: 05-01-2022 ambulatory Ms. Agata Caldwell Fa cility:[id number] Start: 04-25-2022 ambulatory Ms. Agata Caldwell Fa cility:[id number] Start: 04-24-2022 ambulatory Ms. Agata Caldwell Fa cility:[id number] Start: 04-23-2022 ambulatory Ms. Agata Caldwell Fa cility:[id number] Start: 04-22-2022 End: 04-23-2022 [facility] Start: 03-25-2022 Telephone encounter Michelle Ibarra APRN.CNP Work Phone: [facility] Comment on above: Results Start: 03-24-2022 End: 03-24-2022 Patient encounter procedure Jatin Herrera MD Work Phone: [facility] Comment on above: Dysuria (Primary Dx) ; Urinary frequency; Microscopic hematuria; History of kidney stones Start: 02-01-2022 End: 02-01-2022 ambulatory Francy Mittal APRN.HOSPITALITY WORKERS Work Phone: [facility] Comment on above: COVID-19 (Primary Dx ) Start: 02-01-2022 End: 02-01-2022 Telemedicine consultation with patient Francy Mittal APRN.HOSPITALITY WORKERS Work Phone: [facility] [place] Start: 01-08-2022 Refill Turner Bundy MD Work Phone: [facility] Comment on above: Refill Request Start: 09-02-2021 End: 09-03-2021 [facility] Start: 08-17-2021 End: 08-18-2021 [facility] Start: 05-25-2021 End: 05-25-2021 Patient encounter procedure Jatin Herrera MD Work Phone: [facility] Comment on above: URI, acute (Primary Dx); Bilateral impacted cerumen Start: 07-08-2020 End: 07-08-2020 Subsequent hospital visit by physician Xr [facility] Work Phone: Radiology Comment on above: Neck pain [M54.2] Start: 06-16-2018 Patient encounter procedure Ashleigh E rin Horrigan Facility:[id number] Start: 06-15-2018 Patient encounter procedure Ashleigh E rin Horrigan Facility:[id number] Start: 06-14-2018 Patient encounter procedure Ashleigh E rin Horrigan Facility:[id number] Start: 06-13-2018 Patient encounter procedure Ashleigh E rin Horrigan Facility:[id number] Start: 06-12-2018 Patient encounter procedure Ashleigh E rin Horrigan Facility:[id number] Start: 06-09-2018 Patient encounter procedure Ashleigh E rin Horrigan Facility:[id number] Start: 06-08-2018 Patient encounter procedure Ashleigh E rin Horrigan Facility:[id number] Start: 06-07-2018 Patient encounter procedure Ashleigh E rin Horrigan Facility:[id number] Procedures Date Procedure Procedure Detail Performing Clinician Start: 10-23-2024 SARS-CoV-2, Influenz a & RSV (PCR) Dr. Turner Bundy MD Work Phone: Start: 10-22-2024 Methadone measurement, urine Dr. Turner Bundy MD Work Phone: Start: 10-22-[address] Turner Bundy MD Work Phone: Start: 09-12-2024 Iadna streptococcus group a amplified probe tq Woo Vargas MASH FILTER PRESS OPERATOR.HOSPITALITY WORKERS Work Phone: Start: 06-25-2024 STREP A MOLECULAR (POC) Francy Mittal MASH FILTER PRESS OPERATOR.HOSPITALITY WORKERS Work Phone: Start: 06-25-2024 COVID & INFLUENZA A/ B & RSV PCR, ROUTINE Francy Mittal MASH FILTER PRESS OPERATOR.HOSPITALITY WORKERS Work Phone: Start: 01-18-2024 Radiologic exam chest 2 views Jina Gayle MASH FILTER PRESS OPERATOR.HOSPITALITY WORKERS Work Phone: Start: 01-18-2024 STREP A MOLECULAR (POC) Woo Vargas MASH FILTER PRESS OPERATOR.HOSPITALITY WORKERS Work Phone: Start: 12-02-2023 PFIZER-BIONTECH COVI D-19 VACCINE AGE 12+ YR (COMIRNATY) Turner Bundy MD Work Phone: Start: 11-14-2023 Plethysmography lung volumes w/wo airway resist Pamela Nieves MASH FILTER PRESS OPERATOR.HOSPITALITY WORKERS Work Phone: Start: 11-10-2023 Radiologic exam chest 2 views Pamela Nieves MASH FILTER PRESS OPERATOR.HOSPITALITY WORKERS Work Phone: Start: 10-24-2023 STREP A MOLECULAR (POC) Jina Gayle MASH FILTER PRESS OPERATOR.HOSPITALITY WORKERS Work Phone: Start: 08-25-2023 Radiologic exam chest 2 views Jina Gayle MASH FILTER PRESS OPERATOR.HOSPITALITY WORKERS Work Phone: Start: 05-02-2023 INFLUENZA VACCINE, A GE 6 MO - 64 YR, QUADRIVALENT (AFLURIA, FLULAVAL, FLUZONE) Angelina Claudio MASH FILTER PRESS OPERATOR.FORMING PROCESS WORKER Work Phone: Start: 05-02-2023 PFIZER-BIONTECH COVI D-19 VACCINE ( SEASON) AGE 12+ YR Angelina Claudio MASH FILTER PRESS OPERATOR.FORMING PROCESS WORKER Work Phone: Start: 04-17-2023 Viral antigen assay Start: 03-22-2023 Radiologic exam chest 2 views Enriqueta Jurado Santos HOOPER Work Phone: Start: 12-17-2022 Radex ankle complete minimum 3 views Fern Solares Work Phone: Start: 12-06-2022 Sars-cov-2 detection by dna/rna Jatin Herrera MD Work Phone: Start: 11-03-2022 Radex foot complete minimum 3 views Fern Solares Work Phone: Start: 10-11-2022 X-ray of both feet Start: 09-03-2022 Radiologic exam chest 2 views Turner Bundy MD Work Phone: Start: 08-17-2022 STREP A MOLECULAR (POC) Michelle Wang MASH FILTER PRESS OPERATOR.HOSPITALITY WORKERS Work Phone: Start: 07-02-2022 Radiologic exam abdo men 1 view Turner Bundy MD Work Phone: Start: 06-29-2022 Radiologic exam abdo men 1 view Turner Bundy MD Work Phone: Start: 03-24-2022 Urnls dip stick/tabl et rgnt auto w/o microscopy Jina Gayle MASH FILTER PRESS OPERATOR.HOSPITALITY WORKERS Work Phone: Start: 08-17-2021 Computed tomography of abdomen and pelvis with contrast Start: 07-08-2020 Radex spine cervical 4 or 5 views Francy Mittal MASH FILTER PRESS OPERATOR.HOSPITALITY WORKERS Work Phone: Start: 04-27-2018 End: 04-27-2018 Electrocardiogram Start: 03-06-2015 Adult depression scr eening assessment Jatin Herrera MD Work Phone: SARS-CoV-2 & FLU Ant igen (Rapid) Viral antigen assay Viral antigen assay Plan of Treatment Date Care Activity Detail Author Start: 08-03-2026 Urine microalbumin profile DTa P,Tdap,Td Vaccine (8 - Td or Tdap) [facility] Start: 07-29-2026 Urine microalbumin profile [facility] Start: 06-25-2025 Annual PCP Team Hotel Service Manager ander Disease Visit Annual PCP Team Chronic Disease Visit [facility] Start: 04-10-2025 Annual PCP Team Hotel Service Manager ander Disease Visit Annual PCP Team Chronic Disease Visit [facility] Start: 04-10-2025 End: 04-10-2025 Patient encounter procedure 04/10/2025 10:00 AM EST Office Visit Family [facility] [address] [place] [id number] Turner Bundy MD [address] [place] [id number] Yearly exam Family [facility] [place] Comment on above: Yearly exam Start: 02-26-2025 Annual PCP Team Hotel Service Manager ander Disease Visit Annual PCP Team Chronic Disease Visit [facility] Start: 12-01-2024 Annual PCP Team Hotel Service Manager ander Disease Visit Annual PCP Team Chronic Disease Visit [facility] Start: 11-09-2024 Annual PCP Team Hotel Service Manager ander Disease Visit Annual PCP Team Chronic Disease Visit [facility] Start: 10-29-2024 Influenza vaccination Influenza Vacc ine (#1) [facility] Start: 10-23-2024 [facility] Start: 10-22-2024 Referral to service [facility] Start: 10-22-2024 Suicide precautions [facility] Start: 04-12-2024 Annual PCP Team Hotel Service Manager ander Disease Visit Annual PCP Team Chronic Disease Visit [facility] Start: 04-10-2024 End: 04-10-2024 Patient encounter procedure 04/10/2024 9:40 AM EST Office Visit Family Stephanie [place] [address] [place] [id number] Turner Bundy MD [address] [place] [id number] 6 month f/u Family Stephanie [place] Comment on above: 6 month f/u Start: 03-22-2024 Annual PCP Team Hotel Service Manager ander Disease Visit Annual PCP Team Chronic Disease Visit [facility] Start: 03-21-2024 End: 03-21-2024 Patient encounter procedure [facility] [place] Comment on above: 6 month f/u Start: 02-27-2024 End: 02-27-2024 Patient encounter procedure 02/27/2024 11:00 AM EST Office Visit [facility] [place] [address] [place] [address] Turner Bundy MD [address] [place] [address] 01/04/2024 [facility] - Major Depressive Disorder [facility] [place] Comment on above: 01/04/2024 [facility] - Major Depressive Disorder Start: 12-27-2023 End: 12-27-2023 Patient encounter procedure 12/27/2023 11:00 AM EDT Office Visit Pulmonary Medicine [address] [place] [address] Radha Ospina MD [address] [facility] [address] [address] Chronic cough [R05.3 Pulmonary Medicine Comment on above: Chronic cough [R05.3 Start: 12-02-2023 End: 03-02-2024 Basic metabolic 2000 panel - Serum or Plasma [facility] Comment on above: Expected: 12/02/2023 , Expires: 03/02/2024 Start: 12-02-2023 End: 12-01-2024 CBC W Auto Differential panel - Blood [facility] Work Phone: Comment on above: Expected: 12/02/2023 , Expires: 12/01/2024 Start: 12-02-2023 End: 12-01-2024 Cobalamin (Vitamin B12) [Mass/volume] in Serum or Plasma [facility] Comment on above: Expected: 12/02/2023 , Expires: 12/01/2024 Start: 12-02-2023 End: 12-01-2024 Ferritin [Mass/volume] in Serum or Plasma [facility] Comment on above: Expected: 12/02/2023 , Expires: 12/01/2024 Start: 12-02-2023 End: 10-04-2025 Folate [Mass/volume] in Serum or Plasma [facility] Comment on above: Expected: 12/02/2023 , Expires: 12/01/2024 Start: 12-02-2023 End: 03-02-2024 Hemoglobin A1c in Blood [facility] Comment on above: Expected: 12/02/2023 , Expires: 03/02/2024 Start: 12-02-2023 End: 12-01-2024 Iron and Iron binding capacity panel - Serum or Plasma [facility] Comment on above: Expected: 12/02/2023 , Expires: 12/01/2024 Start: 12-02-2023 End: 12-02-2023 Patient encounter procedure 12/02/2023 10:40 AM EDT Office Visit Family Stephanie [place] [address] [place], [place] [id number] Turner Bundy MD [address] [place], [place] [id number] [facility] ER f/u right CP. 11-27-23. ER found no cause. Family Stephanie [place] Comment on above: [facility] ER f/u right CP. 11-27-23. ER found no cause. Start: 11-14-2023 End: 11-14-2023 ambulatory [facility] Comment on above: Chronic cough [R05.3 ]; LYNN (dyspnea on exertion) [R06.09] Start: 10-30-2023 Covid-19 Vaccine ( season) Covid-19 Vaccine () [facility] Start: 10-30-2023 Influenza vaccination Influenza Vacc ine (#1) [facility] Start: 10-21-2023 ANNUAL PCP TEAM COMPUTER CUSTOMER SUPPORT SPECIALIST ANDER DISEASE VISIT ANNUAL PCP TEAM CHRONIC DISEASE VISIT [facility] Start: 10-14-2023 ANNUAL PCP TEAM COMPUTER CUSTOMER SUPPORT SPECIALIST ANDER DISEASE VISIT ANNUAL PCP TEAM CHRONIC DISEASE VISIT [facility] Start: 09-14-2023 ANNUAL PCP TEAM COMPUTER CUSTOMER SUPPORT SPECIALIST ANDER DISEASE VISIT ANNUAL PCP TEAM CHRONIC DISEASE VISIT [facility] Start: 09-12-2023 End: 09-12-2023 Patient encounter procedure [facility] [place] Comment on above: 6m f/u Start: 09-04-2023 ANNUAL PCP TEAM COMPUTER CUSTOMER SUPPORT SPECIALIST ANDER DISEASE VISIT ANNUAL PCP TEAM CHRONIC DISEASE VISIT [facility] Start: 07-14-2023 End: 10-13-2023 25-hydroxyvitamin D3 [Mass/volume] in Serum or Plasma [facility] Comment on above: Expected: 07/14/2023 , Expires: 10/13/2023 Start: 07-14-2023 End: 10-13-2023 HIV 1+2 Ab [Presence] in Serum or Plasma by Immunoassay [facility] Comment on above: Expected: 07/14/2023 , Expires: 10/13/2023 Start: 07-14-2023 End: 10-13-2023 Tissue transglutaminase Ab panel - Serum [facility] Work Phone: Comment on above: Expected: 07/14/2023 , Expires: 10/13/2023 Start: 07-02-2023 ANNUAL PCP TEAM COMPUTER CUSTOMER SUPPORT SPECIALIST ANDER DISEASE VISIT ANNUAL PCP TEAM CHRONIC DISEASE VISIT [facility] Start: 06-30-2023 ANNUAL PCP TEAM COMPUTER CUSTOMER SUPPORT SPECIALIST ANDER DISEASE VISIT ANNUAL PCP TEAM CHRONIC DISEASE VISIT [facility] Start: 04-18-2023 [facility] Start: 04-17-2023 Referral to service [facility] Start: 04-17-2023 End: 04-17-2023 Suicide precautions [facility] Start: 03-10-2023 End: 03-10-2023 [facility] Start: 02-28-2023 Behavioral Health Screening Behavioral Health Screening [facility] Start: 02-28-2023 Depression Assessment Depression Ass essment [facility] Start: 02-01-2023 ANNUAL PCP TEAM COMPUTER CUSTOMER SUPPORT SPECIALIST ANDER DISEASE VISIT ANNUAL PCP TEAM CHRONIC DISEASE VISIT [facility] Start: 10-29-2022 Covid-19 Vaccine ( season) Covid-19 Vaccine () [facility] Start: 10-29-2022 Influenza vaccination C [facility] Start: 10-11-2022 X-ray of both feet Foot min 3 Views [facility] Start: 10-11-2022 XR Foot GE 3 Views [facility] Start: 06-29-2022 End: 08-29-2022 Bacteria identified in Urine by Culture [facility] Work Phone: Comment on above: Expected: 06/29/2022 , Expires: 08/29/2022 Start: 06-29-2022 End: 08-29-2022 Comprehensive metabolic 2000 panel - Serum or Plasma [facility] Work Phone: Comment on above: Expected: 06/29/2022 , Expires: 08/29/2022 Start: 06-29-2022 End: 08-29-2022 Lipase [Enzymatic activity/volume] in Serum or Plasma [facility] Work Phone: Comment on above: Expected: 06/29/2022 , Expires: 08/29/2022 Start: 06-29-2022 End: 08-29-2022 [place] [Moles/volume] in Serum or Plasma [facility] Work Phone: Comment on above: Expected: 06/29/2022 , Expires: 08/29/2022 Start: 06-02-2022 Suicide precautions [facility] Start: 06-02-2022 Referral to service [facility] Start: 06-02-2022 Suicide precautions [facility] Start: 04-22-2022 [facility] Start: 04-22-2022 Referral to service [facility] Start: 04-22-2022 End: 04-22-2022 Suicide precautions [facility] Start: 03-24-2022 End: 05-24-2022 Basic metabolic 2000 panel - Serum or Plasma [facility] Work Phone: Comment on above: Expected: 03/24/2022 , Expires: 05/24/2022 Start: 03-24-2022 End: 05-24-2022 CBC W Auto Differential panel - Blood [facility] Work Phone: Comment on above: Expected: 03/24/2022 , Expires: 05/24/2022 Start: 02-28-2022 DEPRESSION ASSESSMENT DEPRESSION ASS ESSMENT [facility] Start: 02-23-2022 ANNUAL PCP TEAM COMPUTER CUSTOMER SUPPORT SPECIALIST ANDER DISEASE VISIT ANNUAL PCP TEAM CHRONIC DISEASE VISIT [facility] Start: 10-29-2021 Influenza vaccination INFLUENZA (#1) [facility] Start: 09-02-2021 Suicide precautions [facility] Work Phone: Start: 04-03-2021 COVID-19 VACCINE (4 - Booster for Moderna series) COVID-19 VACCINE (4 - Booster for Moderna series) [facility] Start: 04-03-2021 COVID-19 VACCINE (4 - Moderna series) COVID-19 VACCINE (4 - Moderna series) [facility] Start: 02-28-2021 DEPRESSION ASSESSMENT DEPRESSION ASS ESSMENT [facility] Start: 06-28-2017 Medicare Annual Well ness Visit Medicare Annual Wellness Visit [facility] Start: 03-06-2016 Adult depression scr eening assessment DEPRESSION SCREENING [facility] Start: 2012 ONE PNEUMOVAX PRIOR TO AGE 63 ONE PNEUMOVAX PRIOR TO AGE 63 [facility] Start: 09-23-2011 Anxiety Screening Anxiety Screening [facility] Start: 09-23-2011 Depression Screening Depression Scre ening [facility] Start: 09-23-2011 SPIROMETRY SPIROMETRY [facility] Start: 09-23-1999 PNEUMOCOCCAL (1 - PCV) PNEUMOCOCCAL (1 - PCV) [facility] Start: 09-23-1999 Pneumococcal vaccination [facility] Start: 1993 HEPATITIS B (1 of 3 - 3-dose series) HEPATITIS B (1 of 3 - 3-dose series) [facility] Start: 1993 Hepatitis B Vaccine (1 of 3 - 3-dose series) Hepatitis B Vaccine (1 of 3 - 3-dose series) [facility] Bacteria identified in Urine by Culture URINE CULTURE Microbiology Routine Urinary frequency Ordered: 03/24/2022 [facility] Work Phone: Comment on above: Ordered: 03/24/2022 Clostridioides diffi cile toxin genes [Presence] in Stool by RELL with probe detection C. DIFFICILE PCR Lab Routine Diarrhea, unspecified type Ordered: 10/24/2023 [facility] Comment on above: Ordered: 10/24/2023 COVID & INFLUENZA A/ B & RSV PCR, ROUTINE COVID & INFLUENZA A/B & RSV PCR, ROUTINE Microbiology Routine Pharyngitis, unspecified etiology Acute cough Ordered: 01/18/2024 [facility] Work Phone: Comment on above: Ordered: 01/18/2024 ENTERIC BACTERIAL PA UZMA BY PCR ENTERIC BACTERIAL PANEL BY PCR Lab Routine Diarrhea, unspecified type Ordered: 10/24/2023 [facility] Work Phone: Comment on above: Ordered: 10/24/2023 End: 12-09-2024 LUNG VOLUMES LUNG VOLUMES PFT Routine Chronic cough LYNN (dyspnea on exertion) 1 Occurrences starting 11/10/2023 until 12/09/2024 [facility] Comment on above: 1 Occurrences starti ng 11/10/2023 until 12/09/2024 Ova and parasites identified in Unspecified specimen by Light microscopy OVA + PARA MICROSCOPIC Microbiology Routine Diarrhea, unspecified type Ordered: 10/24/2023 [facility] Comment on above: Ordered: 10/24/2023 Patient Education [facility] Work Phone: Patient referral [facility] Work Phone: Removal impacted cer umen irrigation/lvg unilat AMBULATORY EAR LAVAGE/IRRIGATION Procedures Routine Bilateral impacted cerumen Ordered: 12/06/2022 [facility] Work Phone: Comment on above: Ordered: 12/06/2022 End: 12-09-2024 SPIROMETRY - BASELINE AND POST DILATOR SPIROMETRY - BASELINE AND POST DILATOR PFT Routine Chronic cough LYNN (dyspnea on exertion) 1 Occurrences starting 11/10/2023 until 12/09/2024 [facility] Comment on above: 1 Occurrences starti ng 11/10/2023 until 12/09/2024 Urinalysis complete panel - Urine URINALYSIS, WITH MICROSCOPIC Lab Routine Abdominal pain, unspecified abdominal location 05/02/2023 4:44 PM EST [facility] Work Phone: End: 07-29-2023 XR ABDOMEN 1V SUPINE XR ABDOMEN 1V SUPINE Radiology Routine Epigastric pain Left upper quadrant abdominal pain 1 Occurrences starting 06/29/2022 until 07/29/2023 [facility] Work Phone: Comment on above: 1 Occurrences starti ng 06/29/2022 until 07/29/2023 XR ABDOMEN 1V SUPINE XR ABDOMEN 1V SUPINE Radiology Routine Epigastric pain Left upper quadrant abdominal pain 06/29/2022 5:10 PM EDT [facility] Work Phone: End: 01-16-2024 XR ANKLE GENERAL 3V AP/LAT/OBL RIGHT XR ANKLE GENERAL 3V AP/LAT/OBL RIGHT Radiology Routine Pain of toe of right foot 1 Occurrences starting 12/17/2022 until 01/16/2024 [facility] Work Phone: Comment on above: 1 Occurrences starti ng 12/17/2022 until 01/16/2024 XR ANKLE GENERAL 3V AP/LAT/OBL RIGHT XR ANKLE GENERAL 3V AP/LAT/OBL RIGHT Radiology Routine Pain of toe of right foot 12/17/2022 2:49 PM EDT [facility] Work Phone: End: 12-09-2024 XR Chest PA and Lateral XR CHEST 2V FRONTAL/LAT Radiology Routine Chronic cough LYNN (dyspnea on exertion) 1 Occurrences starting 11/10/2023 until 12/09/2024 [facility] Work Phone: Comment on above: 1 Occurrences starti ng 11/10/2023 until 12/09/2024 XR Chest PA and Lateral XR CHEST 2V FRONTAL/LAT Radiology Routine Chronic cough LYNN (dyspnea on exertion) 11/10/2023 2:46 PM EDT [facility] End: 12-03-2023 XR FOOT GENERAL 3V AP/LAT/OBL RIGHT XR FOOT GENERAL 3V AP/LAT/OBL RIGHT Radiology Routine Pain of toe of right foot 1 Occurrences starting 11/03/2022 until 12/03/2023 [facility] Work Phone: Comment on above: 1 Occurrences starti ng 11/03/2022 until 12/03/2023 XR FOOT GENERAL 3V AP/LAT/OBL RIGHT XR FOOT GENERAL 3V AP/LAT/OBL RIGHT Radiology Routine Pain of toe of right foot 11/03/2022 4:32 PM EDT [facility] Work Phone: End: 01-16-2024 XR FOOT GENERAL 3V AP/LAT/OBL RIGHT XR FOOT GENERAL 3V AP/LAT/OBL RIGHT Radiology Routine Pain of toe of right foot Repetitive stress injury 1 Occurrences starting 12/17/2022 until 01/16/2024 [facility] Work Phone: Comment on above: 1 Occurrences starti ng 12/17/2022 until 01/16/2024 XR FOOT GENERAL 3V AP/LAT/OBL RIGHT XR FOOT GENERAL 3V AP/LAT/OBL RIGHT Radiology Routine Pain of toe of right foot Repetitive stress injury 12/17/2022 2:49 PM EDT [facility] Work Phone: End: 12-03-2023 XR TOE AP/LAT/OBL RIGHT XR TOE AP/LAT/OBL RIGHT Radiology Routine Pain of toe of right foot 1 Occurrences starting 11/03/2022 until 12/03/2023 [facility] Work Phone: Comment on above: 1 Occurrences starti ng 11/03/2022 until 12/03/2023 XR TOE AP/LAT/OBL RIGHT XR TOE A P/LAT/OBL RIGHT Radiology Routine Pain of toe of right foot 11/03/2022 4:32 PM EDT [facility] Work Phone: [facility] Immunizations Immunization Date Immunization Notes Care Provider Marie suggs 12-02-2023 COVID-19 vaccine, ag e 12+ yr (PFIZER-BIONTECH [facility]) Turner Bundy MD Work Phone: [facility] 12-02-2023 influenza, seasonal, injectable Turner Bundy MD Work Phone: [facility] 12-02-2023 influenza virus vacc ine, unspecified formulation Fern Solares Work Phone: [facility] 05-02-2023 COVID-19 vaccine, ag e 12+ yr, season (PFIZER-BIONTECH) Angelina Suppan MASH FILTER PRESS OPERATOR.FORMING PROCESS WORKER Work Phone: [facility] 05-02-2023 influenza, injectabl e, quadrivalent, contains preservative Angelina Suppan MASH FILTER PRESS OPERATOR.FORMING PROCESS WORKER Work Phone: [facility] 05-02-2023 influenza virus vacc ine, unspecified formulation Turner Bundy MD Work Phone: [facility] 12-23-2020 influenza, injectabl e, quadrivalent, contains preservative Jatin Herrera MD Work Phone: [facility] 12-23-2020 influenza virus vacc ine, unspecified formulation Turner Bundy MD Work Phone: [facility] 05-14-2020 Covid (Moderna) [facility] 12-22-2017 influenza, injectabl e, quadrivalent, preservative free Jatin Herrera MD Work Phone: [facility] 01-14-2017 influenza, injectabl e, quadrivalent, contains preservative Jatin Herrera MD Work Phone: [facility] 08-03-2016 tetanus toxoid, redu dexter diphtheria toxoid, and acellular pertussis vaccine, adsorbed [facility] 07-29-2016 tetanus toxoid, redu dexter diphtheria toxoid, and acellular pertussis vaccine, adsorbed Jatin Herrera MD Work Phone: [facility] Work Phone: 12-12-2014 influenza, seasonal, injectable Jatin Herrera MD Work Phone: [facility] 12-24-2013 influenza, seasonal, injectable Jatin Herrera MD Work Phone: [facility] 11-28-2013 influenza, injectabl e, quadrivalent, preservative free [facility] 11-28-2013 influenza, seasonal, injectable [facility] 02-01-2012 human papilloma viru s vaccine, quadrivalent Turner Bundy MD Work Phone: [facility] 02-01-2012 influenza, seasonal, injectable, preservative free Turner Bundy MD Work Phone: [facility] 09-15-2011 hepatitis A vaccine, pediatric/adolescent dosage, 2 dose schedule Turner Bundy MD Work Phone: [facility] 09-15-2011 human papilloma viru s vaccine, quadrivalent Turner Bundy MD Work Phone: [facility] 01-11-2011 hepatitis A vaccine, pediatric/adolescent dosage, 2 dose schedule Turner Bundy MD Work Phone: [facility] 01-11-2011 human papilloma viru s vaccine, quadrivalent Turner Bundy MD Work Phone: [facility] 01-11-2011 influenza, seasonal, injectable, preservative free Turner Bundy MD Work Phone: [facility] 03-20-2009 influenza, seasonal, injectable Turner Bundy MD Work Phone: [facility] 03-20-2009 novel influenza-H1N1 -09, preservative-free, injectable Turner Bundy MD Work Phone: [facility] 01-15-2008 influenza, seasonal, injectable Turner Bundy MD Work Phone: [facility] 08-03-2007 tetanus toxoid, redu dexter diphtheria toxoid, and acellular pertussis vaccine, adsorbed Turner Bundy MD Work Phone: [facility] 01-10-2007 influenza, seasonal, injectable Turner Bundy MD Work Phone: [facility] 11-03-2006 meningococcal polysaccharide (groups A, C, Y and W-135) diphtheria toxoid conjugate vaccine (MCV4P) Turner Bundy MD Work Phone: [facility] 10-14-2006 varicella virus vaccine Will ezequiel Bundy MD Work Phone: [facility] 02-03-2006 influenza, seasonal, injectable Turner Bundy MD Work Phone: [facility] 12-28-2004 influenza, seasonal, injectable Turner Bundy MD Work Phone: [facility] 01-09-2004 influenza, seasonal, injectable Turner Bundy MD Work Phone: [facility] 10-28-2003 measles, mumps and rubella virus vaccine Turner Bundy MD Work Phone: [facility] 10-28-2003 varicella virus vaccine Will ezequiel Bundy MD Work Phone: [facility] 02-07-2003 influenza, seasonal, injectable Turner Bundy MD Work Phone: [facility] 02-06-2002 diphtheria, tetanus toxoids and acellular pertussis vaccine, unspecified formulation Turner Bundy MD Work Phone: [facility] 02-06-2002 influenza, seasonal, injectable Turner Bundy MD Work Phone: [facility] 02-06-2002 pneumococcal conjuga te vaccine, 7 valent Turner Bundy MD Work Phone: [facility] 02-06-2002 poliovirus vaccine, inactivated Turner Bundy MD Work Phone: [facility] 03-16-2001 influenza, seasonal, injectable Turner Bundy MD Work Phone: [facility] 01-18-2000 influenza, seasonal, injectable Turner Bundy MD Work Phone: [facility] 11-25-1999 diphtheria, tetanus toxoids and acellular pertussis vaccine, unspecified formulation Turner Budny MD Work Phone: [facility] 10-23-1997 trivalent poliovirus vaccine, live, oral Turner Bundy MD Work Phone: [facility] 12-23-1994 diphtheria, tetanus toxoids and pertussis vaccine Turner Bundy MD Work Phone: [facility] 12-23-1994 haemophilus influenz ae type b vaccine, PRP-T conjugate Turner Bundy MD Work Phone: [facility] 09-23-1994 measles, mumps and rubella virus vaccine Turner Bundy MD Work Phone: [facility] 06-25-1994 hepatitis B vaccine, pediatric or pediatric/adolescent dosage Turner Bundy MD Work Phone: [facility] 03-22-1994 diphtheria, tetanus toxoids and pertussis vaccine Turner Bundy MD Work Phone: [facility] 03-22-1994 haemophilus influenz ae type b vaccine, PRP-T conjugate Turner Bundy MD Work Phone: [facility] 03-22-1994 hepatitis B vaccine, pediatric or pediatric/adolescent dosage Turner Bundy MD Work Phone: [facility] 03-22-1994 trivalent poliovirus vaccine, live, oral Turner Bundy MD Work Phone: [facility] 01-15-1994 diphtheria, tetanus toxoids and pertussis vaccine Turner Bundy MD Work Phone: [facility] 01-15-1994 haemophilus influenz ae type b vaccine, PRP-T conjugate Turner Bundy MD Work Phone: [facility] 01-15-1994 trivalent poliovirus vaccine, live, oral Turner Bundy MD Work Phone: [facility] 1993 diphtheria, tetanus toxoids and pertussis vaccine Turner Bundy MD Work Phone: [facility] 1993 haemophilus influenz ae type b vaccine, PRP-T conjugate Turner Bundy MD Work Phone: [facility] 1993 trivalent poliovirus vaccine, live, oral Turner Bundy MD Work Phone: [facility] 1993 hepatitis B vaccine, pediatric or pediatric/adolescent dosage Turner Bundy MD Work Phone: [facility] Payers Date Payer Category Payer Self-pay [id number] 2020 Medicaid MEDICAID [facility] MEDICAID [id number] 2020-Present [phone] [address] [place] [address] Medicaid [id number] 2020 Medicaid [id number] 2018 Unknown MEDPAY MEDPAY [id number] 2018-Present [address] [place] [address] Indemnity [id number] 2017 Medicare MEDICARE MEDICAR E A AND B [id number] 2017-Present [phone] [address] [address] [place] [address] Medicare [id number] 2017 Medicare [id number] 2017 Medicare [id number] 2013 Medicaid [id number] 1993 Unknown [id number] 1993 Unknown [id number] 1993 Unknown [id number] 1993 Unknown [id number] 1993 Unknown [id number] 1993 Unknown [id number] 1993 Unknown [id number] 1993 Unknown [id number] 1993 Unknown [id number] 1993 Unknown [id number] 1993 Unknown [id number] 1993 Unknown [id number] [id number] 1993 Unknown [id number] 1993 Unknown [id number] 1993 Unknown [id number] 1993 Unknown [id number] 1993 Unknown [id number] [id number] Unknown [id number] Unknown [id number] Unknown [id number] Unknown [id number] Unknown [id number] Unknown [id number] Unknown [id number] Unknown [id number] Unknown [id number] Social History Date Type Detail Facility Start: 12-07-2013 End: 10-22-2024 Tobacco smoking status GAIS Never smoked tobacco [facility] Work Phone: Start: 07-08-2020 End: 05-25-2021 Alcohol intake Current non-drinker of alcohol (finding) [facility] Start: 1995 Sex Assigned At Not on file [facility] Start: 06-08-2020 End: 05-25-2021 Exposure to SARS-CoV-2 (event) Not sure [facility] Work Phone: Start: 08-17-2021 End: 04-17-2023 Tobacco smoking status GAIS Unknown if ever smoked [facility] Start: 02-09-2020 None [facility] Start: 05-27-2020 With Family [facility] Start: 07-04-2020 Non-smoker [facility] Start: 1995 Sex Assigned At Male [facility] Start: 12-07-2013 Tobacco use and exposure Smoke less tobacco non-user [facility] Start: 02-01-2022 History SDOH Alcohol Frequency 1 [facility] Start: 02-01-2022 History SDOH Alcohol Std Drinks 0 [facility] Start: 02-01-2022 History SDOH Social Connections Phone 4 [facility] Start: 02-01-2022 History SDOH Social Connections Get Together 5 [facility] Start: 02-01-2022 History SDOH Social Connections Rastafarian 3 [facility] Start: 02-01-2022 History SDOH Social Connections Meetings 2 [facility] Start: 02-01-2022 History SDOH Social Connections Living 7 [facility] Start: 02-01-2022 End: 02-27-2024 History of Social function [facility] Start: 02-01-2022 End: 02-27-2024 Social connection and isolation panel [facility] Do you belong to any clubs or organizations such as jew groups, unions, fraternal or athletic groups, or school groups? Yes [facility] Are you now , , , , never or living with a partner? Never [facility] How often to you hav e a drink containing alcohol? Never [facility] How many standard dr inks containing alcohol do you have on a typical day? Patient does not drink [facility] How hard is it for y ou to pay for the very basics like food, housing, medical care, and heating Not very hard [facility] Do you feel stress - tense, restless, nervous, or anxious, or unable to sleep at night because your mind is troubled all the time - these days [OSQ] Not at all [facility] (I/We) worried ramiro er (my/our) food would run out before (I/we) got money to buy more. Sometimes true [facility] The food that (I/we) bought just didn't last, and (I/we) didn't have money to get more. Often true [facility] In the past 12 month s, was there a time when you were not able to pay the mortgage or rent on time? No [facility] Start: 12-17-2022 End: 09-12-2024 Alcohol intake Lifetime non-drinker (finding) [facility] How hard is it for y ou to pay for the very basics like food, housing, medical care, and heating Somewhat hard [facility] Do you feel stress - tense, restless, nervous, or anxious, or unable to sleep at night because your mind is troubled all the time - these days [OSQ] To some extent [facility] (I/We) worried wheth er (my/our) food would run out before (I/we) got money to buy more. Never true [facility] [facility] Functional Status Date Assessment Result Facility 04-15-2015 Are you deaf, or do you have serious difficulty hearing No 04/15/2015 2:37 PM Karla MaradiagaRn)(Hist), RN No [facility] 04-15-2015 Are you blind, or do you have serious difficulty seeing, even when wearing glasses No 04/15/2015 2:37 PM Karla Maradiaga)(Hist), RN No [facility] 04-15-2015 Do you have serious difficulty walking or climbing stairs No 04/15/2015 2:37 PM Karla MaradiagaRn)(Hist), RN No [facility] 04-15-2015 Do you have difficul ty dressing or bathing No 04/15/2015 2:37 PM Karla MaradiagaRn)(Hist), RN No [facility] 04-15-2015 Because of a physica l, mental, or emotional condition, do you have difficulty doing errands alone such as visiting a physician's office or shopping Yes 04/15/2015 2:37 PM Karla MaradiagaRn)(Hist), RN Yes [facility] Mental Status Date Assessment Result Facility 04-15-2015 Because of a physica l, mental, or emotional condition, do you have serious difficulty concentrating, remembering, or making decisions No 04/15/2015 2:37 PM Karla Maradiaga)(Hist), RN No [facility] Clinical Notes 04-09-2015 to 10-30-2024 Note Date & Type Note Facility 10-30-2024 Note Discharge Summary Levy Antunez Perez : 1995 ADMIT DATE: 10/23/2024 DISCHARGE DATE: 10/30/2024 PRIMARY CARE PHYSICIAN: Turner Bundy VISIT STATUS: Admission CODE STATUS: Full Code DISCHARGE DIAGNOSES: Principal Problem: Psychosis, paranoid (HCC) Schizoaffective disorder PTSD Unspecified developmental disability HOSPITAL COURSE: From H/P: The patient is a 29 y.o. male with PMH including epilepsy, asthma, depression, PTSD, ADHD, bipolar 1 disorder, schizophrenia, partial agenesis of corpus callosum, immune disorder (IgG deficiency class III), and Asperger's, who was transferred from [facility], after presenting there with suicidal ideation, visual hallucinations, and auditory hallucinations telling him to kill himself by hanging. Per RN involved in transfer, patient has tried to hang self in the past. He has been compliant with meds and hospitalized for similar concerns multiple times. He comes from a care home and has a legal guardian. Lab work completed in the ED was notable for mild anemia. UDS was negative. This patient was ultimately admitted to [facility] 6th floor - dual diagnosis for further assessment, medication management, and therapeutic intervention. Daily vitals were taken. Regular diet was given. There were no contraindications for seclusions or restraints. Home medications were restarted including Gabapentil 300mg BID, Lamictal 200mg BID, lithium 300mg daily with brekafast, lithium 600mg nightly, zoloft 100mg daily., Invega was titrated up to 6mg daily in order to help target symptoms of psychosis., Patient tolerated all medication changes well., There were no issues with medication compliance. Levy has been compliant with medications and psychotherapy sessions in the form of theraputic interviewing. This patient participated in group therapy and had transitional care meetings with social work. This patent reported continued improvement throughout hospitalization. There were NO behavioral events throughout this hospitalization. Treatment team encouraged follow up with [facility] upon discharge and patient agrees to this. As a result of improvement in this patient's mental status, Levy is ready to be discharged in their current stable and safe condition. This patient denies access to firearms or weapons and denies suicidal or homicidal thoughts or plans. Levy agrees that if he/him/his has active suicidal thoughts, he/him/his will call [phone] or come to the nearest emergency department immediately. SUBJECTIVE EVALUATION, DAY OF DISCHARGE: In meeting with the patient today, Levy states that he is anxious about returning to his care home but overall feels that he is ready to be out of the hospital. He identifies that he does not like some of the peers at his care home. 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 He is really excited about IOP upon discharge and does think that this will help his negative thoughts. He has been engaging well with peers and staff on the unit. Patient has been apprehensive to return to his care home as above and at times has voiced SI or fears about staying safe at his care home. However, he has 20/09 staff there per his report and he has been doing a good job of notifying staff of how he has been feeling while here on our unit. He denies SI, HI, and AVH today. He states that his sleep is great as is his appetite. He does state that his mood is overall better. He does state several times he is excited to see some of the care home staff members, especially Dianna, who he hopes will pick him up. Levy denies current suicidal or homicidal thought as well as auditory or visual hallucinations. Levy denies any symptoms of lizabeth, psychosis, obsessions or compulsions. Sleep and appetite are reportedly good. Patient was made aware we are able and willing to contact collateral contact to review discharge planing at the time of discharge. Levy accepted having this conversation. Social work attempted to update his guardian but was unable to reach through to Nu at [facility]. The care home was contacted and made aware of the discharge plan and came to pick the patient up at 1pm. The team understands this patient to be genuine in their intentions to carry out their discharge plan without us needing to speak with anyone else in their support system. Patient had no other questions or concerns at this time. SIGNIFICANT DIAGNOSTIC STUDIES: Lab Results Component Value Date HGBA1C 5.4 10/24/2024 Lab Results Component Value Date TRIG 97 10/24/2024 CHOL 131 10/24/2024 LDLCALC 70 10/24/2024 HDL 42 (L) 10/24/2024 CHOLHDLRATIO 3 10/24/2024 SIGNIFICANT DIAGNOSTIC STUDIES: [place] level 0.31 CONSULTANTS: None RECOMMENDED NEXT STEPS: Follow up with [facility] darshana Palencia Attempt made to contact [facility] (more content not included)... [facility] 10-30-2024 Note Problem: IP Suicidal Ideation Goal: STG: Levy will not engage in self-injurious activities Outcome: Not Progressing Goal: Denies harm toward self or others Outcome: Not Progressing [facility] 10-29-2024 Note Inpatient Psychiatri c Progress Note 10/29/24 Levy Todd was seen in follow up for psychosis, paranoia, which is chronic in nature. On exam, Levy was in the common area watching television. He reports feeling ongoing severe depression, anxiety throughout the day. He continues to voice suicidal thoughts with a plan to hang himself if he were not in the hospital. Denies active plan in the hospital and is able to contract for safety here. Reports sleep has been difficult to ongoing nightmares. Appetite is improving. Continues to voice auditory hallucinations of voices telling him bad things. Also has visual hallucinations of demons. Has been compliant with scheduled medication cleaning Lamictal, lithium, Zoloft, and Invega daily for mood stabilization, anxiety and psychosis. He is denying significant physical complaints or medication side effects. Per staff has been calm, cooperative, compliant with treatment. Medications: Scheduled Meds[1] Continuous Meds[2] PRN Meds[3] Mental Status Examination: Vitals : BP 118/73 Pulse 80 Temp 36.6 ?C (97.8 ?F) (Temporal) Resp 16 Ht 1.88 m (6' 2) Wt 127 kg (281 lb) SpO2 97% BMI 36.08 kg/m? APPEARANCE: Disheveled. BEHAVIOR: normal PSYCHOMOTOR: within normal limits SPEECH: Coherent and Regular rate, rhythm, volume and articulation LANGUAGE: Naming intact MOOD: Apathetic AFFECT: Flat THOUGHT PROCESS: Goal-directed THOUGHT CONTENT: suicidal, delusions, and paranoid ideation PERCEPTIONS/HALLUCINATIONS: visual, voices commenting, and voices conversing ABSTRACTION: poor INSIGHT: poor, including concerning psychiatric condition. JUDGMENT: poor, including concerning psychiatric condition. ORIENTATION: Appropriate to age, Person, Place, and Time MEMORY: recent and remote memory intact ATTENTION SPAN: fair CONCENTRATION: fair FUND OF KNOWLEDGE: fair GAIT: Within normal limits ROS: [x] All negative/unchanged except if checked. Explain positive(checked items) below: [] Constitutional [] Eyes [] Ear/Nose/Mouth/Throat [] Respiratory [] CV [] GI [] [] Musculoskeletal [] Skin/Breast [] Neurological [] Endocrine [] Heme/Lymph [] Allergic/Immunologic Explanation: denies ASSESSMENT: Schizoaffective Disorder PTSD Patient symptoms :show no change Patient continues to need, on a daily basis, active treatment furnished directly by or requiring the supervision of inpatient psychiatric personnel. Treatment Plan: The patient will benefit from ongoing inpatient psychiatric monitoring, evaluation, and treatment. Will continue Neurontin 300 mg bid, Lamictal 200 mg bid, [place] 300 mg daily/600 mg nightly, Invega 6 mg daily, and Zoloft 100 mg daily. The patient needs additional time to respond this medication regimen. Will encourage continued medication compliance and titrate medications as needed and tolerated. No changes will be made at this time. Will discharge the patient to the appropriate level of care when medically and psychiatrically stable. - Continue to adjust lithium dose and recheck level appropriately, continue to evaluate EPS with Invega. Continue Current Medications if not otherwise stated. Will continue to titrate medications and assess for effectiveness and tolerability. Continue Follow-up. Continue crisis intervention oriented psychotherapy, group and milieu therapies. Social work and transitional care continue to assist with necessary family liaison and discharge planning. Pt expressed agreement and understanding with treatment plan. PSYCHOTHERAPY/COUNSELING: Supportive, therapeutic interview Inpatient [facility] Complexity: Patient has at least one chronic illness with severe exacerbation, and requiring: [x]Patient continues to present with high suicide risk due to persistent suicidal ideation with plan and limited protective factors. Ongoing safety concerns require intensive daily monitoring, close coordination with nursing staff, and frequent reassessment of risk. Complex decision-making performed regarding medication adjustments and risk-benefit balance of current treatment plan. [x]Patient remains acutely psychotic/manic with disorganized thought process, poor impulse control, and elevated risk for harm to self/others. Patient's clinical presentation and treatment needs necessitate high-complexity medical decision-making. [x]Patient's management involved complex decision-making regarding multiple psychotropic medications with significant risk for adverse effects, interactions, and long-term complications including [place] - renal, thyroid, toxicity monitoring. Care required detailed risk-benefit discussion, review of treatment alternatives, and coordination with staff for ongoing monitoring. Patient's clinical presentation and treatment needs necessitate high-complexity medical decision-making. support. Electronically signed by Jagdeep Ramsey MD on (more content not included)... [facility] 10-28-2024 Note Department of Psychi atry Attending Progress Note CHIEF COMPLAINT: depression and psychosis SUBJECTIVE: The patient is seen in follow-up for schizoaffective disorder and PTSD. The patient was seen and examined. The chart was reviewed. The patient was discussed with staff. Per nursing, the patient is anxious. He has been cooperative with care and compliant with medications. On approach, the patient is sitting in the day area. He states that he had two breakdowns yesterday where he cried uncontrollably and felt more depressed. He is still feeling depressed today. Sleep and appetite are okay. Energy and concentration are decreased. +suicidal ideation. No homicidal ideation. He reports auditory hallucinations telling him to kill himself. No visual hallucinations. He reports feeling paranoid with thoughts that his dad will hurt him. No symptoms of lizabeth. He is compliant with medications and is tolerating medications well. OBJECTIVE Physical Visit Vitals BP 123/80 Pulse 92 Temp 37.4 ?C (99.4 ?F) (Temporal) Resp 18 Mental Status Examination: The patient appears his stated age. He is casually groomed, wearing hospital attire. He is cooperative. He makes fair eye contact. He has normal psychomotor activity. No involuntary movements. He was not seen ambulating. His speech is clear and spontaneous. Mood is depressed and affect is mood congruent. Thought process is grossly. Thought content: no suicidal ideation, no homicidal ideation. +paranoia. The patient does not appear internally stimulated. Memory, attention, and concentration are grossly intact. Insight and judgment are limited. Data Labs reviewed Medications Current Medications[1] ASSESSMENT: Schizoaffective Disorder PTSD PLAN: At this time, inpatient psychiatric care remains medically necessary in order to treat the above diagnoses and symptoms. The patient will benefit from ongoing inpatient psychiatric monitoring, evaluation, and treatment. Will continue Neurontin 300 mg bid, Lamictal 200 mg bid, [place] 300 mg daily/600 mg nightly, Invega 6 mg daily, and Zoloft 100 mg daily. The patient needs additional time to respond this medication regimen. Will encourage continued medication compliance and titrate medications as needed and tolerated. No changes will be made at this time. Will discharge the patient to the appropriate level of care when medically and psychiatrically stable. [1] Current Facility-Administered Medications: acetaminophen (Tylenol) tablet 650 mg, 650 mg, Oral, q6h PRN, Klaudia Hatch MD, 650 mg at 10/27/24 1300 albuterol 108 (90 Base) MCG/ACT inhaler 2 puff, 2 puff, Inhalation, q6h PRN, Klaudia Hatch MD cetirizine (ZyrTEC) tablet 10 mg, 10 mg, Oral, Daily, Klaudia Hatch MD, 10 mg at 10/28/24 0840 fluticasone (Flonase) nasal spray 2 spray, 2 spray, Each Nostril, Daily, Klaudia Hatch MD, 2 spray at 10/28/24 0843 gabapentin (Neurontin) capsule 300 mg, 300 mg, Oral, BID, Klaudia Hatch MD, 300 mg at 10/28/242057 hydrOXYzine pamoate (Vistaril) capsule 50 mg, 50 mg, Oral, q6h PRN, Klaudia Hatch MD, 50 mg at 10/28/24 1332 lamoTRIgine (LaMICtal) tablet 200 mg, 200 mg, Oral, BID, Ana Sosa MD, 200 mg at 10/28/242057 lithium capsule 300 mg, 300 mg, Oral, Daily with breakfast, Klaudia Hatch MD, 300 mg at 10/28/2440 lithium capsule 600 mg, 600 mg, Oral, Nightly, Klaudia Hatch MD, 600 mg at 10/28/242057 OLANZapine (ZyPREXA) tablet 5 mg, 5 mg, Oral, q6h PRN, 5 mg at 10/28/24 1448 OR OLANZapine (ZyPREXA) 5 mg in sterile water 1 mL injection, 5 mg, IntraMUSCular, q6h PRN, Klaudia Hatch MD paliperidone (Invega) 24 hr tablet 6 mg, 6 mg, Oral, Daily, Valeria Harley MD, 6 mg at 10/28/24 0840 pantoprazole (ProtoNix) EC tablet 40 mg, 40 mg, Oral, qAM AC, Klaudia Hatch MD, 40 mg at 10/28/24 0617 promethazine (Phenergan) tablet 25 mg, 25 mg, Oral, q6h PRN, Klaudia Hatch MD, 25 mg at 10/27/24 2241 sertraline (Zoloft) tablet 100 mg, 100 mg, Oral, Daily, Ana Sosa MD, 100 mg at 10/28/24 0840 traZODone (Desyrel) tablet 50 mg, 50 mg, Oral, Nightly PRKlaudia Vargas MD [facility] 10-28-2024 Note Department of Psychi atry Attending Progress Note CHIEF COMPLAINT: depression and psychosis SUBJECTIVE: The patient is seen in follow-up for schizoaffective disorder and PTSD. The patient was seen and examined. The chart was reviewed. The patient was discussed with staff. Per nursing, the patient intermittently complains of suicidal thoughts. He has been cooperative with care and compliant with medications. On approach, the patient is sitting in the day area. He states that he is feeling better and less depressed today. Sleep and appetite are okay. Energy and concentration are decreased. He denies suicidal ideation and states that he decided it was not a good idea. No homicidal ideation. He denies auditory hallucinations. No visual hallucinations. Some underlying paranoia. No symptoms of lizabeth. He is compliant with medications and is tolerating medications well. OBJECTIVE Physical Visit Vitals BP 123/80 Pulse 92 Temp 37.4 ?C (99.4 ?F) (Temporal) Resp 18 Mental Status Examination: The patient appears his stated age. He is casually groomed, wearing hospital attire. He is cooperative. He makes fair eye contact. He has normal psychomotor activity. No involuntary movements. He was not seen ambulating. His speech is clear and spontaneous. Mood is depressed and affect is mood congruent. Thought process is grossly. Thought content: no suicidal ideation, no homicidal ideation. +paranoia. The patient does not appear internally stimulated. Memory, attention, and concentration are grossly intact. Insight and judgment are limited. Data Labs reviewed Medications Current Medications[1] ASSESSMENT: Schizoaffective Disorder PTSD PLAN: At this time, inpatient psychiatric care remains medically necessary in order to treat the above diagnoses and symptoms. The patient will benefit from continued inpatient psychiatric monitoring, evaluation, and treatment. Will continue Neurontin 300 mg bid, Lamictal 200 mg bid, [place] 300 mg daily/600 mg nightly, Invega 6 mg daily, and Zoloft 100 mg daily. The patient needs additional time to fully respond these medications. Will encourage continued medication compliance and titrate medications as needed and tolerated. No changes will be made at this time. Will discharge the patient to the appropriate level of care when medically and psychiatrically stable. [1] Current Facility-Administered Medications: acetaminophen (Tylenol) tablet 650 mg, 650 mg, Oral, q6h PRN, Klaudia Hatch MD, 650 mg at 10/27/24 1300 albuterol 108 (90 Base) MCG/ACT inhaler 2 puff, 2 puff, Inhalation, q6h PRN, Klaudia Hatch MD cetirizine (ZyrTEC) tablet 10 mg, 10 mg, Oral, Daily, Klaudia Hatch MD, 10 mg at 10/28/24 0840 fluticasone (Flonase) nasal spray 2 spray, 2 spray, Each Nostril, Daily, Klaudia Hatch MD, 2 spray at 10/28/24 0843 gabapentin (Neurontin) capsule 300 mg, 300 mg, Oral, BID, Klaudia Hatch MD, 300 mg at 10/28/242057 hydrOXYzine pamoate (Vistaril) capsule 50 mg, 50 mg, Oral, q6h PRN, Klaudia Hatch MD, 50 mg at 10/28/24 1332 lamoTRIgine (LaMICtal) tablet 200 mg, 200 mg, Oral, BID, Ana Sosa MD, 200 mg at 10/28/242057 lithium capsule 300 mg, 300 mg, Oral, Daily with breakfast, Klaudia Hatch MD, 300 mg at 10/28/2440 lithium capsule 600 mg, 600 mg, Oral, Nightly, Klaudia Hatch MD, 600 mg at 10/28/242057 OLANZapine (ZyPREXA) tablet 5 mg, 5 mg, Oral, q6h PRN, 5 mg at 10/28/24 1448 OR OLANZapine (ZyPREXA) 5 mg in sterile water 1 mL injection, 5 mg, IntraMUSCular, q6h PRN, Klaudia Hatch MD paliperidone (Invega) 24 hr tablet 6 mg, 6 mg, Oral, Daily, Valeria Harley MD, 6 mg at 10/28/24 0840 pantoprazole (ProtoNix) EC tablet 40 mg, 40 mg, Oral, qAM AC, Klaudia Hatch MD, 40 mg at 10/28/24 0617 promethazine (Phenergan) tablet 25 mg, 25 mg, Oral, q6h PRN, Klaudia Hatch MD, 25 mg at 10/27/24 2241 sertraline (Zoloft) tablet 100 mg, 100 mg, Oral, Daily, Ana Sosa MD, 100 mg at 10/28/24 0840 traZODone (Desyrel) tablet 50 mg, 50 mg, Oral, Nightly PRN, Klaudia Hatch MD [facility] 10-28-2024 Note Problem: IP Suicidal Ideation Goal: STG: Levy will not engage in self-injurious activities Outcome: Progressing Note: No signs of SIB [facility] 10-27-2024 Note Department of Psychi atry Attending Progress Note CHIEF COMPLAINT: depression and psychosis SUBJECTIVE: The patient is seen in follow-up for schizoaffective disorder and PTSD. The patient was seen and examined. The chart was reviewed. The patient was discussed with staff. Per nursing, the patient is anxious. He has been cooperative with care and compliant with medications. On approach, the patient is sitting in the day area. He states that he had two breakdowns yesterday where he cried uncontrollably and felt more depressed. He is still feeling depressed today. Sleep and appetite are okay. Energy and concentration are decreased. +suicidal ideation. No homicidal ideation. He reports auditory hallucinations telling him to kill himself. No visual hallucinations. He reports feeling paranoid with thoughts that his dad will hurt him. No symptoms of lizabeth. He is compliant with medications and is tolerating medications well. OBJECTIVE Physical Visit Vitals BP 133/75 (BP Location: Left arm, Patient Position: Sitting) Pulse 85 Temp (!) 35.6 ?C (96.1 ?F) (Temporal) Resp 18 Mental Status Examination: The patient appears his stated age. He is casually groomed, wearing hospital attire. He is cooperative. He makes fair eye contact. He has normal psychomotor activity. No involuntary movements. He was not seen ambulating. His speech is rapid, but not pressured. Mood is elevated and affect is mood congruent. Thought process is tangential. Thought content: no suicidal ideation, no homicidal ideation. +grandiosity. The patient does not appear internally stimulated. Memory, attention, and concentration are grossly intact. Insight and judgment are limited. Data Labs reviewed Medications Current Medications[1] ASSESSMENT: Schizoaffective Disorder PTSD PLAN: At this time, inpatient psychiatric care remains medically necessary in order to treat the above diagnoses and symptoms. The patient will benefit from ongoing inpatient psychiatric monitoring, evaluation, and treatment. Will continue Neurontin 300 mg bid, Lamictal 200 mg bid, [place] 300 mg daily/600 mg nightly, Invega 6 mg daily, and Zoloft 100 mg daily. The patient needs additional time to respond this medication regimen. Will encourage continued medication compliance and titrate medications as needed and tolerated. No changes will be made at this time. Will discharge the patient to the appropriate level of care when medically and psychiatrically stable. [1] Current Facility-Administered Medications: acetaminophen (Tylenol) tablet 650 mg, 650 mg, Oral, q6h PRN, Klaudia Hatch MD, 650 mg at 10/27/24 1300 albuterol 108 (90 Base) MCG/ACT inhaler 2 puff, 2 puff, Inhalation, q6h PRN, Klaudia Hatch MD cetirizine (ZyrTEC) tablet 10 mg, 10 mg, Oral, Daily, Klaudia Hatch MD, 10 mg at 10/27/2430 fluticasone (Flonase) nasal spray 2 spray, 2 spray, Each Nostril, Daily, Klaudia Hatch MD, 2 spray at 10/27/24829 gabapentin (Neurontin) capsule 300 mg, 300 mg, Oral, BID, Klaudia Hatch MD, 300 mg at 10/27/242018 hydrOXYzine pamoate (Vistaril) capsule 50 mg, 50 mg, Oral, q6h PRN, Klaudia Hatch MD, 50 mg at 10/26/24 1352 lamoTRIgine (LaMICtal) tablet 200 mg, 200 mg, Oral, BID, Aan Sosa MD, 200 mg at 10/27/242018 lithium capsule 300 mg, 300 mg, Oral, Daily with breakfast, Klaudia Hatch MD, 300 mg at 10/27/24 0829 lithium capsule 600 mg, 600 mg, Oral, Nightly, Klaudia Hatch MD, 600 mg at 10/27/242018 OLANZapine (ZyPREXA) tablet 5 mg, 5 mg, Oral, q6h PRN OR OLANZapine (ZyPREXA) 5 mg in sterile water 1 mL injection, 5 mg, IntraMUSCular, q6h PRN, Klaudia Hatch MD paliperidone (Invega) 24 hr tablet 6 mg, 6 mg, Oral, Daily, Valeria Harley MD, 6 mg at 10/27/24 0829 pantoprazole (ProtoNix) EC tablet 40 mg, 40 mg, Oral, qAM AC, Klaudia Hatch MD, 40 mg at 10/27/24 0620 promethazine (Phenergan) tablet 25 mg, 25 mg, Oral, q6h PRN, Klaudia Hatch MD, 25 mg at 10/27/24 2241 sertraline (Zoloft) tablet 100 mg, 100 mg, Oral, Daily, Ana Sosa MD, 100 mg at 10/27/24 08 traZODone (Desyrel) tablet 50 mg, 50 mg, Oral, Nightly PRN, Klaudia Hatch MD [facility] 10-26-2024 Note Problem: IP Suicidal Ideation Goal: LTG: Levy will exhibit compliance with therapy Outcome: Progressing Goal: STG: Levy will not engage in self-injurious activities Outcome: Progressing [facility] [facility] Problem: Thought Dis orders Goal: Notifies staff when experiencing hallucinations/delusions Outcome: Progressing [facility] 10-25-2024 Note Inpatient Psychiatri c Progress Note 10/25/24 Levy Todd was seen in follow up for suicidal ideation in the context of symptoms of depression and auditory hallucinations, which appear to be chronic in nature given extensive psychiatric history. On exam, patient was seen interacting with peers in the [facility] area. He was taken to his room for interview. Patient states that he is still feeling quite depressed. Notes that he has been enjoying the group therapy sessions he has been going to as they have been encouraging to think outside himself. We discuss how he feels resentful towards some people in his life. 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 He reflects quite a bit on how this makes him feel isolated and worthless. He notes that the staff at his care home are very kind but sometimes peers he interacts with are not. He reports ongoing voices that tell him that he should kill himself but he denies SI or plan. He contracts for safety while on the unit. Patient was open to trying to reconsider how he views the world around him. He states that he wants to feel less angry. He discusses something that was brought up during one of the groups about the parable of someone walking up a mountain carrying stones. Patient states that he wants to stop carrying stones that are thrown at him and he also wants to stop throwing stones at other people. Patient states that he wants to be treated like a real person who matters. He states that in the past during psychiatric admissions he was rushed out of the hospital. He is adamant that he is not feeling safe for discharge at this time and states if anyone makes me go too soon I will just come back. Provided gentle encouragement that we will continue to take his admission on a day to day basis and as he is still feeling suicidal at times today he is not ready to leave quite yet. Medications: Scheduled Meds[1] Continuous Meds[2] PRN Meds[3] Mental Status Examination: Vitals : BP 126/75 (BP Location: Left arm, Patient Position: Sitting) Pulse 99 Temp 36.2 ?C (97.1 ?F) (Temporal) Resp 16 Ht 1.88 m (6' 2) Wt 127 kg (281 lb) SpO2 98% BMI 36.08 kg/m? APPEARANCE: Fairly groomed. BEHAVIOR: normal PSYCHOMOTOR: unremarkable and within normal limits SPEECH: Coherent and Regular rate, rhythm, volume and articulation LANGUAGE: Naming intact MOOD: Anxious AFFECT: Anxious THOUGHT PROCESS: Goal-directed THOUGHT CONTENT: suicidal thoughts but no plan or intent PERCEPTIONS/HALLUCINATIONS: voices commenting ABSTRACTION: fair INSIGHT: fair, including concerning psychiatric condition. JUDGMENT: fair, including concerning psychiatric condition. ORIENTATION: Appropriate to age MEMORY: recent and remote memory intact ATTENTION SPAN: fair CONCENTRATION: fair FUND OF KNOWLEDGE: fair GAIT: Within normal limits ROS: [x] All negative/unchanged except if checked. Explain positive(checked items) below: [] Constitutional [] Eyes [] Ear/Nose/Mouth/Throat [] Respiratory [] CV [] GI [] [] Musculoskeletal [] Skin/Breast [] Neurological [] Endocrine [] Heme/Lymph [] Allergic/Immunologic Explanation: n/a ASSESSMENT: Schizoaffective disorder PTSD ADHD per history Asperger's per history Patient symptoms :are improving Patient continues to need, on a daily basis, active treatment furnished directly by or requiring the supervision of inpatient psychiatric personnel. Treatment Plan: Continue current psychiatric medications: Gabapentin 300mg BID Lamictal 200mg BID [place] 300mg with breakfast [place] 600mg at bedtime Zoloft 100mg daily Invega 6mg daily TSH normal, lithium level low at 0.31 Continue Current Medications if not otherwise stated. Will continue to titrate medications and assess for effectiveness and tolerability. Continue Follow-up. Continue crisis intervention oriented psychotherapy, group and milieu therapies. Social work and transitional care continue to assist with necessary family liaison and discharge planning. Pt expressed agreement and understanding with treatment plan. PSYCHOTHERAPY/COUNSELING: Supportive, therapeutic interview Today 38 Minutes of psychotherapy were done. Diagnosis for therapy See above, same as med management Modality used: Supportive Psychotherapy / Humanistic. Symptoms Targeted: Depression, Anxiety Treatment plan: Utilize common factors of empathy positive regard and alliance formation in order to facilitate eclectic supportive techniques that enhance self-esteem and adaptive functioning. Patient Goals: To reduce symptoms of Depression and Anxiety Progress towards goals: Good Functional Status: poor, limitations in social and occupational functioning based on mental illness Skills used today: cognitive restructuring, mindfulness Electronically signed by Enriqueta CHAPARRO (more content not included)... [facility] 10-25-2024 Note Patient denies ever using nicotine/tobacco/vape. Smoking cessation counseling not indicated. [facility] 10-24-2024 Note Individual Therapy P chidi Note Date of Service: 10/24/2024 Start Time: 3PM Summary of Session: Reviewed events leading up to admission, Pt discussed struggles with EtOH and depression, reported all he can think about is getting another drink. Provided space for Pt to process through thoughts/emotions, explored positive coping skills, encouraged AA/[facility] engagement. MENTAL STATUS EXAM General Observations: Appearance: [x] Neatly groomed [] Unkempt [] Disheveled [] Other Demeanor: [x] Spontaneous [] Hostile [] Mistrustful [] Preoccupied [] Demanding Activity: [x] Normal [] Hyperactive [] Hypoactive Speech: [x] Clear [] Slurred []Rapid [] Pressured [] Slow [] Soft spoken [] Loud [] Mute [] Rambling [] Incoherent [] Word salad [] Nonsensical Eye Contact: [x] Average [] Sporadic [] Poor [] Avoidant [] Intense MOOD & AFFECT: Mood: [] Euthymic [] Depressed [x] Anxious [] Angry [] Euphoric [] Irritable [] Other: Affect: [x] congruent [] Blunted [] Constricted [] Flat [] Inappropriate [] Labile BEHAVIOR: [x] Cooperative [] Resistant [] Agitated [] Impulsive [] Hyperactive [] Aggresive [] Assaultive [] Restless [] Anhedonia [] Akathisia [] Dissociating [] Withdrawn [] Irritable [] Relaxed [] Tired/fatigued [] Tearful [] Pacing [] Easily Startled [] Trembling/shaking Grimaces COGNITION: Thought Processes: [x] Logical [] Marshall [] Circumstantial [] Tangential [] Loose [] Incoherent [] Blocked [] Racing [] Flight of Ideas Thought Content: Delusions: [] Grandiose [] Persecutory [] Somatic [] Episcopal [] Bizarre [] Nihilistic [x] None reported/observed Other: [] Autistic [] Obsessions [] Guilt [] Phobic [] Guarded Preoccupied [] Ideas of Reference [] Preoccupation with Suicidal Ideation [x] None Reported [] Ideation [] Intent [] Plan [] Self abusive behaviors (assess lethality if present) Homicidal Ideation [x] None Reported [] Ideation [] Intent [] Plan [] Aggressive behaviors (assess lethality of present) Perceptions: [x] Within normal limits [] Illusions [] Depersonalization [] Derealization [] Hallucinations: [] Auditory [] Visual [] Olfactory []Gustatory [] Tactile [] Visceral Oriented to: [x] Person [x] Place [x] Time [x] Situation Level of Consciousness: [x] Alert [] Clouded [] Fluctuating Memory Tested: [] Yes [x] No Memory Disturbance: [] Yes [x] No Attention Deficit: [] Yes [x] No Judgment: [] Good [x] Fair [] Poor Insight: [] Good [x] Fair [] Poor Comments re: significant MSE findings: N/A Therapeutic Intervention: [facility] provided supportive listening and reflection. Utilized Pt centered techniques to validate Pt's emotions and thoughts, and to allow Pt to process through recent stressors. Explored options Pt can engage in to improve mental health and coping skills. Patient Response to Intervention: receptive Goal(s) Addressed During Session: Control Deterioration of Symptoms, Improve or Maintain Level of Functioning to Avoid future Hospitalizations, and Explore Core Issues Underlying Illness Progress Towards Goal: Minimal progress [facility] 10-24-2024 Note Attestation signed by Ana Sosa MD at 10/24/2024 1:07 PM The patient was seen and examined with the resident. The patient's history, presentation, and treatment were discussed with the psychiatric resident, Dr. Harley . I agree with Dr. Harley's below findings and plan. Additional Notes: Patient states that invega has helped him the most - wants it to be increased as he feels that it would help the negative voices that he is hearing. He cannot identify any particular recent stressors but does report that he is in the process of finding a new psychiatrist, he has been wanting to participate in counseling but has been unable to make an appointment, and also reports that he has a new relationship. He states that he has been doing well and has been out of the hospital for the past year. Reports 50+ admissions lifetime for psychiatric concerns. Will increase invega to 6mg daily for treatment of psychosis as related to auditory and visual hallucinations. Will monitor and adjust as appropriate. TSH and [place] level in AM ANA SOSA MD Department of Psychiatry History and Physical - Adult .CHIEF COMPLAINT / REASON FOR ADMISSION: I am having auditory hallucinations telling me to end my life. Patient was seen after discussion with staff and reviewing the chart HISTORY OF PRESENT ILLNESS: The patient is a 29 y.o. male with PMH including epilepsy, asthma, depression, PTSD, ADHD, bipolar 1 disorder, schizophrenia, partial agenesis of corpus callosum, immune disorder (IgG deficiency class III), and Asperger's, who was transferred from [place] ED, after presenting there with suicidal ideation, visual hallucinations, and auditory hallucinations telling him to kill himself by hanging. Per RN involved in transfer, patient has tried to hang self in the past. He has been compliant with meds and hospitalized for similar concerns multiple times. He comes from a care home and has a legal guardian. Lab work completed in the ED was notable for mild anemia. UDS was negative. On the unit, patient has endorsed hearing voices but stating they don't tell him to harm himself. Endorsed passive suicidal ideation to staff, as well as hallucinations including seeing demons and hearing people speaking. Attempts were made to contact his guardian from [facility]. His home medications were ordered. Collateral call made with the patient's permission to Nu Shipley, legal guardian, on 10/24/2024 at 10:36 AM. Attempted to call 2x and left VM. Collateral call made with the patient's permission to Dacia Todd ([phone]), patient's mom, on 10/24/2024 at 11:06 AM. Wonders why he is here, because things were going really well. Updated her on what is going on and our treatment plan. She called the house where he lives and they have no clue what happened. Feels the care home is a good environment for the patient and wants him to return as soon as he is okay to go back. She wonders if his relationship with his boyfriend is affecting current presentation and feels reassured he discussed the boyfriend our team. On evaluation today, patient reports that he is here for worsening auditory hallucinations telling him to end his life which started about a week ago and suicidal ideation with plan to hang himself (which she has done before). States that this has been different for him as he has been outside of the psychiatric hospital setting since late last year. Feels his symptoms came back and worsened like a freight train coming back. Explains that he had a plan to end his life on Tuesday and did not have the time to act on these thoughts. He does not know why he has been experiencing worsening suicidal ideation recently. States that he lives at a care home and has been on edge since this past Tuesday, then he reached out for help on Tuesday due to worsening suicidality. States that he told his house wirer helper's boss who called the crisis line in [place]. Eventually he was brought to ED for evaluation and then admitted to our hospital. Currently, states that he continues to not be feeling well and having suicidal ideation with auditory hallucinations. Also endorses visual hallucinations of demonic's stuff. Reports that he had months without any of the symptoms, but about a week ago they return. For support system, he does have a boyfriend he has been dating for about a month and staff at the care home he feels supported by. He is glad to have a boyfriend that is worried about him, but otherwise struggles to identify positive things in his right now. Shares that he is dealing with a lot including mom's situation. Explains that his mom and him to have a fraught relationship, including her playing the guilt card to get him to come over and at (more content not included)... [facility] 10-24-2024 Note Smoking cessation co unseling held due to admission for less than 24 hours. [facility] 10-23-2024 Discharge summary Note Date/Time October 23, 2024 1:13pm [facility] Medical Records Department [address] [place] [address] Emergency Department Summary 10/22/24 MR#: [id number] Acct: [id number] Name: TODDLEVY Tulio Rep #:[id number] : 1995 29 From: Jasmin Husain MD PCP: Dr. Turner Bundy MD Status:REG E R Location: ED ADDENDUM by Dr. Galdino Valerio MD on 10/23/24 at 1313 Patient endorsed to me by the overnight physician, Dr. Jonnie Boland awaiting placement in psychiatric facility. Patient had stated that he has history of psychosis, and for weeks has been hearing voices and seeing things with command hallucinations telling him to kill himself by hanging or cutting his wrist. Reportedly has had previous suicide attempt. Patient has been accepted by [facility]. Disposition is transferred in stable condition. 10/23/24 1313<Electronically signed by Galdino Valerio MD> Cosigner Signature (if applicable): cc: Dr. Turner Bundy MD ~* Signed HPI HPI - Psych History of Present Illness Chief Complaint: Suicidal Narrative Narrative: Patient is a 29-year-old male presenting to the emergency department for suicidal ideation with plan. Patient has a past medical history of depression, asthma and psychosis. Patient was at her care home. His aide is at bedside. He states that for the past few weeks he has had auditory and visual hallucinations that are telling him to kill himself by either hanging himself orcutting his wrist. States that he told staff today which is why they then brought him in. He does have a history of a suicide attempt by hanging he reports. When asked what the auditory and visual hallucinations are he reports they are demonic. Denies any homicidal ideation or plan. Denies any delusions or paranoia. Denies any physical complaints. No recent medication changes. Reports that he takes all of his psychiatric medication as prescribed. [facility] Medical History Paranoia PTSD (post-traumatic stress disorder) Schizophrenia Bipolar 1 disorder Pneumonia Back pain Seizures Asthma Knee pain Psychiatric pseudoseizure Petit mal epilepsy ADHD (attention deficit hyperactivity disorder) Partial agenesis of corpus callosum Aspergers' syndrome Home Medications ?Medication ?Instructions ?Recorded ?Last Taken ?Type lamotrigine 200 mg tablet 200 mg PO BID 11/19/20 Unkno wn History paliperidone 6 mg tablet,extended 3 mg PO QHS 06/02/22 Unknown History release 24 hr albuterol sulfate 90 mcg/actuation 2 puff inhalation Q 6H PRN 04/17/23 Unknown History aerosol inhaler shortness of breath or wheez ing lithium carbonate 300 mg capsule 300 mg PO QHS 4 Unknown History sertraline 100 mg tablet 100 mg PO Q24H 04/17/23 Unkn own History urea 40 % topical cream 1 applic topical DAILY 04/17 Unknown History acetaminophen 500 mg tablet 1,000 mg PO Q6H PRN pain 0 10/22/24 Unknown History fluticasone propionate 50 spray intranasal 10/22/24 Un known History mcg/actuation nasal spray,suspension lithium carbonate 600 mg capsule 600 mg PO 10/22/24 Un known History loratadine 10 mg tablet 10 mg PO DAILY 10/22/24 Unkn own History Allergy/AdvReac Type Severity Reaction Status Date / Time bee venom protein (honey bee) Allergy Anaphylaxis Verified 10/22/24 18:04 carbamazepine (From Tegretol) Allergy Unknown Verified 10/22/24 18:04 divalproex sodium (From Allergy Other Verified 10/22/24 18:04 Depakote) methylphenidate (From Allergy Unknown Verified 10/22/24 18:04 Concerta) methylphenidate HCl (From Allergy Unknown Verified 10/22/24 18:04 Ritalin) phenobarbital Allergy Hives Verified 10/22/24 18:04 Family History Other Asthma Diabetes Hypertension Kidney disease Surgical History Hx of cholecystectomy Hx of tympanostomy tubes H/O hernia repair Social History household members: family housing: house Smoking Status: Never smoker alcohol intake: never EXAM Physical Exam Narrative Exam Narrative: Vital signs: Reviewed General: Alert and oriented. No acute distress HEENT: Head is normocephalic and atraumatic, sinuses nontender, pupils equal round and reactive. Nares are patent. Oropharynx and throat exams normal. Neck: Supple without lymphadenopathy nontender Cardiovascular: Regular rate and rhythm, no murmurs. No rubs or gallops. Normal S1 and S2 Respiratory: Clear to auscultation bilaterally. No wheezes, rales, rhonchi Abdominal: Soft and nontender. Normal bowel sounds. No guarding or rebound. Nonsurgical abdomen Extremities: No tenderness. No bruising. Normal range of motion. Normal sensation. Skin: No rash or redness. The rest of the physical exam is unremarkable Const Vital Signs: 10/22/24 18:04 10/22/24 19:46 Temperature 97 F L Temperature Source Temporal Pulse Rate 70 60 Respiratory Rate 16 18 Blood Pressure 130/77 H 116/70 Blood Pressure Mean 94 85 Pulse Ox 99 99 Oxygen Delivery Method Room Air Room Air Psych mental status grossly normal Appearance: grossly normal Attitude: calm, No uncooperative, No agitated and No aggressive Activity / Motor Behavior: appropriate eye contact Speech: normal speech Mood & Affect: flat affect Thought Process: normal thought process Thought Content: suicidality, No homicidality, No delusion(s) and hallucination(s) Attention / Concentration: attention grossly intact Memory / Cognition: memory grossly intact MDM MDM MDM Narrative Medical decision making narrative: Patient is a 29-year-old male presenting to the emergency department for suicidal ideation and plan. Patient seen and examined. Vitals are stable. Resting in bed comfortably no acute distress. Medical clearance labs were obtained. Crisis evaluated the patient and recommended inpatient psychiatric treatment in combination with my assessment. Signed out to oncoming physician pending placement. History & Record Review Discussion w/independent historian: Patient Lab Data Attestation: I reviewed the patient's lab results. Labs: Laboratory Results - last 24 hr 10/22/24 10/22/24 18:20 19:12 WBC 7.6 RBC 4.55 L Hgb 12.1 L Hct 36.9 L MCV 81.1 MCH 26.6 L MCHC 32.8 RDW Std Deviation 42.5 RDW Coeff of Nano 14.6 Plt Count 295 MPV 9.1 Immature Gran % (Auto) 0.300 Neut % (Auto) 67.4 Lymph % (Auto) 27.8 [place] % (Auto) 4.5 Eos % (Auto) 0.0 Baso % (Auto) 0.0 Absolute Neuts (auto) 5.1 Absolute Lymphs (auto) 2.10 Nucleated RBC % 0 Sodium 140 Potassium 3.8 Chloride 104 Carbon Dioxide 25.1 Anion Gap 12 BUN 9 Creatinine 0.77 Estim Creat Clear Calc 194.49 Est GFR (MDRD) Non-Af 123 BUN/Creatinine Ratio 12.2 Glucose 142 H Calcium 9.5 Urine Opiates Screen NEGATIVE U Buprenorphine Qual NEGATIVE Ur Oxycodone Screen NEGATIVE Urine Methadone Screen NEGATIVE Urine Fentanyl Screen NEGATIVE Ur Barbiturates Screen NEGATIVE Ur Phencyclidine Scrn NEGATIVE Ur Amphetamines Screen NEGATIVE U Benzodiazepines Scrn NEGATIVE Urine Cocaine Screen NEGATIVE U Cannabinoids Screen NEGATIVE Ethyl Alcohol < 10.1 Discharge Plan Triage Chief Complaint: Suicidal ED Provider: Jasmin Husain Dx/Rx/DC Orders Prescriptions: No Action lamotrigine 200 mg tablet 200 mg PO BID paliperidone 6 mg tablet extended release 24hr 3 mg PO QHS albuterol sulfate 90 mcg/actuation HFA aerosol inhaler 2 puff INHALATION Q6H PRN (Reason: shortness of breath or wheezing) Patient Comments: inhale 2 puffs by mouth INSTRUCTED EVERY 6 HOURS NEEDED lithium carbonate 300 mg capsule 300 mg PO QHS sertraline 100 mg tablet 100 mg PO Q24H urea 40 % cream 1 applic TOPICAL DAILY Patient Comments: apply to affected area once daily bilat feet acetaminophen 500 mg tablet 1,000 mg PO Q6H PRN (Reason: pain) lithium carbonate 600 mg capsule 600 mg PO fluticasone propionate 50 mcg/actuation spray,suspension INTRANASAL loratadine 10 mg tablet 10 mg PO DAILY Primary Care Provider: Turner Bundy Referrals: Turner Bundy MD [Primary Care Provider] - Print Language: Lao What to do if you have Problems For any increased pain, shortness of breath, bleeding, nausea or vomiting, chestpain, or any unexpected problems, contact your Primary Care Provider. Call [facility] ([phone]) or report to the closest Emergency Room. Call 911 if necessary. 10/23/24 0040 <Electronically signed by Jasmin Husain MD> Cosigner Signature (if applicable): CC: Dr. Turner Bundy MD ~ Signed [facility] Work Phone: [phone] Discharge summary [facility] Medical Records Department [address] [place] [address] Emergency Department Summary 10/22/24 MR#: [id number] Acct: [id number] Name: LEVY TODD Rep #:[id number] : 1995 29 From: Jasmin Husain MD PCP: Dr. Turner Bundy MD Status:REG E R Location: ED ADDENDUM by Dr. Galdino Valerio MD on 10/23/24 at 1313 Patient endorsed to me by the overnight physician, Dr. Jonnie Boland awaiting placement in psychiatric facility. Patient had stated that he has history of psychosis, and for weeks has been hearing voices and seeing things with command hallucinations telling him to kill himself by hanging or cutting his wrist. Reportedly has had previous suicide attempt. Patient has been accepted by [facility]. Disposition is transferred in stable condition. 10/23/24 1313 Cosigner Signature (if applicable): cc: Dr. Turner Bundy MD ~* Signed HPI HPI - Psych History of Present Illness Chief Complaint: Suicidal Narrative Narrative: Patient is a 29-year-old male presenting to the emergency department for suicidal ideation with plan. Patient has a past medical history of depression, asthma and psychosis. Patient was at her care home. His aide is at bedside. He states that for the past few weeks he has had auditory and visual hallucinations that are telling him to kill himself by either hanging himself orcutting his wrist. States that he told staff today which is why they then brought him in. He does have a history of a suicide attempt by hanging he reports. When asked what the auditory and visual hallucinations are he reports they are demonic. Denies any homicidal ideation or plan. Denies any delusions or paranoia. Denies any physical complaints. No recent medication changes. Reports that he takes all of his psychiatric medication as prescribed. [facility] Medical History Paranoia PTSD (post-traumatic stress disorder) Schizophrenia Bipolar 1 disorder Pneumonia Back pain Seizures Asthma Knee pain Psychiatric pseudoseizure Petit mal epilepsy ADHD (attention deficit hyperactivity disorder) Partial agenesis of corpus callosum Aspergers' syndrome Home Medications ?Medication ?Instructions ?Recorded ?Last Taken ?Type lamotrigine 200 mg tablet 200 mg PO BID 11/19/20 Unkno wn History paliperidone 6 mg tablet,extended 3 mg PO QHS 06/02/22 Unknown History release 24 hr albuterol sulfate 90 mcg/actuation 2 puff inhalation Q 6H PRN 04/17/23 Unknown History aerosol inhaler shortness of breath or wheez ing lithium carbonate 300 mg capsule 300 mg PO QHS 4 Unknown History sertraline 100 mg tablet 100 mg PO Q24H 04/17/23 Unkn own History urea 40 % topical cream 1 applic topical DAILY 04/17 Unknown History acetaminophen 500 mg tablet 1,000 mg PO Q6H PRN pain 0 10/22/24 Unknown History fluticasone propionate 50 spray intranasal 10/22/24 Un known History mcg/actuation nasal spray,suspension lithium carbonate 600 mg capsule 600 mg PO 10/22/24 Un known History loratadine 10 mg tablet 10 mg PO DAILY 10/22/24 Unkn own History Allergy/AdvReac Type Severity Reaction Status Date / Time bee venom protein (honey bee) Allergy Anaphylaxis Verified 10/22/24 18:04 carbamazepine (From Tegretol) Allergy Unknown Verified 10/22/24 18:04 divalproex sodium (From Allergy Other Verified 10/22/24 18:04 Depakote) methylphenidate (From Allergy Unknown Verified 10/22/24 18:04 Concerta) methylphenidate HCl (From Allergy Unknown Verified 10/22/24 18:04 Ritalin) phenobarbital Allergy Hives Verified 10/22/24 18:04 Family History Other Asthma Diabetes Hypertension Kidney disease Surgical History Hx of cholecystectomy Hx of tympanostomy tubes H/O hernia repair Social History household members: family housing: house Smoking Status: Never smoker alcohol intake: never EXAM Physical Exam Narrative Exam Narrative: Vital signs: Reviewed General: Alert and oriented. No acute distress HEENT: Head is normocephalic and atraumatic, sinuses nontender, pupils equal round and reactive. Nares are patent. Oropharynx and throat exams normal. Neck: Supple without lymphadenopathy nontender Cardiovascular: Regular rate and rhythm, no murmurs. No rubs or gallops. Normal S1 and S2 Respiratory: Clear to auscultation bilaterally. No wheezes, rales, rhonchi Abdominal: Soft and nontender. Normal bowel sounds. No guarding or rebound. Nonsurgical abdomen Extremities: No tenderness. No bruising. Normal range of motion. Normal sensation. Skin: No rash or redness. The rest of the physical exam is unremarkable Const Vital Signs: 10/22/24 18:04 10/22/24 19:46 Temperature 97 F L Temperature Source Temporal Pulse Rate 70 60 Respiratory Rate 16 18 Blood Pressure 130/77 H 116/70 Blood Pressure Mean 94 85 Pulse Ox 99 99 Oxygen Delivery Method Room Air Room Air Psych mental status grossly normal Appearance: grossly normal Attitude: calm, No uncooperative, No agitated and No aggressive Activity / Motor Behavior: appropriate eye contact Speech: normal speech Mood & Affect: flat affect Thought Process: normal thought process Thought Content: suicidality, No homicidality, No delusion(s) and hallucination(s) Attention / Concentration: attention grossly intact Memory / Cognition: memory grossly intact MDM MDM MDM Narrative Medical decision making narrative: Patient is a 29-year-old male presenting to the emergency department for suicidal ideation and plan. Patient seen and examined. Vitals are stable. Resting in bed comfortably no acute distress. Medical clearance labs were obtained. Crisis evaluated the patient and recommended inpatient psychiatric treatment in combination with my assessment. Signed out to oncoming physician pending placement. History & Record Review Discussion w/independent historian: Patient Lab Data Attestation: I reviewed the patient's lab results. Labs: Laboratory Results - last 24 hr 10/22/24 10/22/24 18:20 19:12 WBC 7.6 RBC 4.55 L Hgb 12.1 L Hct 36.9 L MCV 81.1 MCH 26.6 L MCHC 32.8 RDW Std Deviation 42.5 RDW Coeff of Nano 14.6 Plt Count 295 MPV 9.1 Immature Gran % (Auto) 0.300 Neut % (Auto) 67.4 Lymph % (Auto) 27.8 Fulton % (Auto) 4.5 Eos % (Auto) 0.0 Baso % (Auto) 0.0 Absolute Neuts (auto) 5.1 Absolute Lymphs (auto) 2.10 Nucleated RBC % 0 Sodium 140 Potassium 3.8 Chloride 104 Carbon Dioxide 25.1 Anion Gap 12 BUN 9 Creatinine 0.77 Estim Creat Clear Calc 194.49 Est GFR (MDRD) Non-Af 123 BUN/Creatinine Ratio 12.2 Glucose 142 H Calcium 9.5 Urine Opiates Screen NEGATIVE U Buprenorphine Qual NEGATIVE Ur Oxycodone Screen NEGATIVE Urine Methadone Screen NEGATIVE Urine Fentanyl Screen NEGATIVE Ur Barbiturates Screen NEGATIVE Ur Phencyclidine Scrn NEGATIVE Ur Amphetamines Screen NEGATIVE U Benzodiazepines Scrn NEGATIVE Urine Cocaine Screen NEGATIVE U Cannabinoids Screen NEGATIVE Ethyl Alcohol < 10.1 Discharge Plan Triage Chief Complaint: Suicidal ED Provider: Jasmin Husain Dx/Rx/DC Orders Prescriptions: No Action lamotrigine 200 mg tablet 200 mg PO BID paliperidone 6 mg tablet extended release 24hr 3 mg PO QHS albuterol sulfate 90 mcg/actuation HFA aerosol inhaler 2 puff INHALATION Q6H PRN (Reason: shortness of breath or wheezing) Patient Comments: inhale 2 puffs by mouth INSTRUCTED EVERY 6 HOURS NEEDED lithium carbonate 300 mg capsule 300 mg PO QHS sertraline 100 mg tablet 100 mg PO Q24H urea 40 % cream 1 applic TOPICAL DAILY Patient Comments: apply to affected area once daily bilat feet acetaminophen 500 mg tablet 1,000 mg PO Q6H PRN (Reason: pain) lithium carbonate 600 mg capsule 600 mg PO fluticasone propionate 50 mcg/actuation spray,suspension INTRANASAL loratadine 10 mg tablet 10 mg PO DAILY Primary Care Provider: Turner Bundy Referrals: Turner Bundy MD [Primary Care Provider] - Print Language: Lao What to do if you have Problems For any increased pain, shortness of breath, bleeding, nausea or vomiting, chestpain, or any unexpected problems, contact your Primary Care Provider. Call [facility] ([phone]) or report tothe closest Emergency Room. Call 911 if necessary. 10/23/24 0040 Cosigner Signature (if applicable): CC: Dr. Turner Bundy MD ~ Signed [facility]07-16-2025 NoteHNO ID: [id number] Author: JATIN HERRERA MD Service: ? Author Type: Physician Type: Progress Notes Filed: 09/12/2024 15:20 Note Text: URGENT CARE [facility] Levy Todd is a 28 year old male. Patient presents with: Cough: Cough and ST x 3 days Patient presents with 3 days of illness accompanied by his care home caregiver. He has had sore throat, fatigue, [...] from or confirmed by: other (see comments) (USP caregiver). Differential Diagnoses - Viral URI with asthma exacerbation is more likely for the following reason(s): suggested by HANDP - Pneumonia is less likely for the following reason(s): No focal lung abnormality ProceduresSelect [facility] History of Present illness Narrative* Jatin Herrera MD - 09/12/2024 3:12 PM EDT [facility] is a 28 year old male. Patient presents with: Cough: Cough and ST x 3 days Patient presents with 3 days of illness accompanied by his care home caregiver. He has had sore throat, fatigue, [...] independent historian. History obtained from or confirmed by:other (see comments) (USP caregiver). Differential Diagnoses - Viral URI with asthma exacerbation is more likely for the following reason(s): suggested by H&P - Pneumonia is less likely for the following reason(s): No focal lung abnormality Procedures documented in this encounterUniversity Hospitals Portage Medical Center07-01-2025 Instructions* Patient Instructions* Fern Solares - 08/28/2024 1:17 PM EDT Ok to hold on cream if the feet are no longer dry Fern Solares DPM documented in this encounterUniversity Hospitals Portage Medical Center07-01-2025 NoteHNO ID: [id number] Author: FERN SOLARES, ? Service: ? Author [...] were present, he could consider nail removal. [facility]RE [facility]07-01-2025 History of Present illness Narrative* Sujatha Fern - 08/28/2024 1:09 PM EDT Subjective: Patient presents to clinic c/o painful toenails. They state that the nails are especially painful with shoe gear and pressure. Patient states that nails right 3rd toenails is painful. No other pedal complaints at this time. Patient states no change in medications or medical history since last visit. Objective: Patient presents to clinic ambulating in [facility] Vasc: DP and PT pulses are palpable bilateral. CFT is less than 5 seconds bilateral. Skin temperature is warm to cool proximal to distal bilateral. There is no edema or varicosities noted. Neuro: Protective sensation is intact to the foot and toes when tested with the 5.07 SWM bilateral.Vibratory sensation is decreased at the hallux IPJ [...] do feel if patient keeps his nails cutshort, his nails likely won't cause him pain. If pain were present, he could consider nail removal. Fern Solares DPM * Nadia Eaton LPN - 08/28/2024 1:03 PM EDT AMB ROOMING INTAKE FLOWSHEET DATA Risk Screening Do you have concerns about personal safety or safety in the home?: No Patient presents with: Left Foot - Established Patient, nail care Right Foot - Established Patient, nail care Nadia Eaton LPN documented in this encounterUniversity Hospitals Portage Medical Center07-01-2025 NoteHNO ID: [id number] Author: NADIA EATON LPN Service: ? Author Type: LICENSED NURSE Type: Progress Notes Filed: 08/28/2024 13:21 Note Text: AMB ROOMING INTAKE FLOWSHEET DATA Risk Screening Do you have concerns about personal safety or safety in the home?: No Patient presents with: Left Foot - Established Patient, nail care Right Foot - Established Patient, nail care GUILLERMINA PalomaresOhioHealth Riverside [facility]04-29-2025 Telephone encounter Note* Telephone Encounter - Tabatha Nicholson LPN - 06/26/2024 9:44 AM EDT TC to pt. Left a detailed message on a secure line with updates. Tabatha Nicholson LPN [facility]04-29-2025 Miscellaneous Notes* Telephone Encounter - Tabatha Nicholson LPN - 06/26/2024 9:44 AM EDT TC to pt. Left a detailed message on a secure line with updates. Tabatha Nicholson LPN * Telephone Encounter - Tabatha Nicholson LPN - 06/26/2024 9:43 AM EDT ----- Message from Francy Mittal APRN.CNP sent at 06/26/2024 7:46 AM EDT ----- Negative. Please let caregiver (Dianna) know. Francy Mittal APRN.CNP * Telephone Encounter - Tabatha Nicholson LPN - 06/26/2024 9:42 AM EDT ----- Message from Francy Mittal APRN.CNP sent at 06/26/2024 7:46 AM EDT ----- Negative. Please let caregiver (Dianna) know. Francy Mittal APRN.[facility] documented in this encounterUniversity Hospitals Portage Medical Center04-29-2025 Telephone encounter Note * Telephone Encounter - Tabatha Nicholson LPN - 06/26/2024 9:43 AM EDT ----- Message from Francy Mittal APRN.CNP sent at 06/26/2024 7:46 AM EDT ----- Negative. Please let caregiver (Dianna) know. Francy Mittal APRN.[employer] [facility]04-29-2025 Telephone encounter Note* Telephone Encounter - Tabatha Nicholson LPN - 06/26/2024 9:42 AM EDT ----- Message from Francy Mittal APRN.CASTRO sent at 06/26/2024 7:46 AM EDT ----- Negative. Please let caregiver (Dianna) know. Francy Mittal APRN.[employer] [facility]04-28-2025 NoteHNO ID: [id number] Author: FRANCY MITTAL APRN.CNP Service: ? Author [...] with caregiver, Dianna. Pt lives in a care home. Caregiver reports that she feels this is [...] murmur, gallop, or ru (more content not included)...[facility]04-28-2025 History of Present illness Narrative* Francy Mittal APRN.[facility] - 06/25/2024 7:37 PM EDT This is a 28 year old male [...] with caregiver, Dianna. Pt lives in a care home. Caregiver reports that she feels this is more allergies, as patient has been participating in normal activities without s/s of fatigue/illness. PAST MEDICAL HISTORY: PAST MEDICAL HISTORY Diagnosis Date Acute cholecystitis 12/2020 Asperger's syndrome (HCC) Asthma (HCC) mild intermittent Attention deficit disorder with hyperactivity(314.01) Convulsions in ([facility]) GRAND MAL SEIZURES Depression Developmental delay Family [...] spray Use 2 sprays in each nostril oncedaily. loratadine (CLARITIN) 10 mg tablet Take 1 [...] purulent nasal discharge or productive cough noted. Physicalexamination reveals postnasal drip. - Differential diagnosis includes [...] as needed for worsening/no improvement. Francy Mittal APRN.[facility] [employer] Recording using Patronpath software for draft documentation of the visit was discussed with the patient/authorized public health representative; all questions welcomed and answered. Patient/authorized public health representative agreed to proceed documented in this encounterUniversity Hospitals Portage Medical Center04-28-2025 NoteHNO ID: [id number] Author: DEDE ALEGRIA RN Service: ? Author [...] Dede Alegria RN June 25, 2024 12:20 [facility]04-28-2025 [id number] (AGENT OF COVID-19) RNA: Not detected INFLUENZA A RNA: Not detected INFLUENZA B RNA: Not detected RESPIRATORY SYNCYTIAL VIRUS (RSV) RNA: Not detectedSelect Medical Specialty Hospital - [facility]-FairhillComment on above:Performed By: #### [id number] ####[facility] LABCLIA [id number] [address]04-28-2025 Instructions* Patient Instructions* Francy Mittal APRN.CNP - 06/25/2024 10:54 AM EDT Start taking [...] please call our office. documented in this encounterUniversity Hospitals Portage Medical Center04-28-2025 NotePatient Outreach ([facility]) LEVY TODD ([id number]) 1995 M Date Time Provider Department 06/25/24 [facility] During your visit today, we recorded the [...] LPN - Fully Assessed Reason for Visit: Holistic Specialist- Other [3613] Cmt: Chart Review Prescriptions [...] 03/14/2023 Encounter Status:Closed by DEDE ALEGRIA on 06/25/24[facility]02-11-2025 NoteHNO ID: [id number] Author: TURNER BUNDY MD Service: ? Author [...] auscultation. No whe (more content not included)... [facility]02-11-2025 History of Present illness Narrative* Turner Bundy MD - 04/10/2024 9:29 AM EST Patient presents with: Follow Up HPI: Patient [...] history andsocial history today. REVIEW OF SYSTEMS No cough [...] detail. Turner Bundy MD documented in this encounterUniversity Hospitals Portage Medical Center01-28-2025 Telephone encounter Note * Telephone Encounter - Danika Johnson RN - 03/27/2024 12:59 PM EST The patient has been identified by name [...] meals and at bedtime. Danika Johnson RN [facility]01-28-2025 Miscellaneous Notes* Telephone Encounter - Danika Johnson RN - 03/27/2024 12:59 PM EST The patient has been identified by name [...] bedtime. Danika Johnson RN documented in this encounterUniversity Hospitals Portage Medical Center12-30-2024 NoteHNO ID: [id number] Author: TURNER BUNDY MD Service: ? Author Type: Physician Type: Progress Notes Filed: 02/27/2024 11:39 Note Text: Patient presents with: Hospital F/U HPI: Patient presents today for office visit for hospital follow up. Here today with house wirer helper Dianna Parker. HOSPITAL/ER FOLLOW UP: Reason for visit: Hearing voices, hallucinations and suicidal ideation after receiving Invega injection. Which facility: Started at [facility] and transferred to [facility]. Date of visit: 01/03/24 to 01/13/24 Diagnosis: [...] Reported on 02/27/2024) paliperidone palm, 3 month, (JOSELINEEGA RONYZA) 819 mg/2.63 mL syrg To be given [...] PAST MEDICAL HISTORY OF (more content not included)...[facility]12-30-2024 History of Present illness Narrative* Turner Bundy MD - 02/27/2024 11:07 AM EST Patient presents with: Hospital F/U HPI: Patient presents today for office visit for hospital follow up. Here today with house wirer helper Dianna aPrker. HOSPITAL/ER FOLLOW UP: Reason for visit: Hearing voices, hallucinations and suicidal ideation after receiving Invega injection. Which facility: Started at [facility] and transferred to [facility]. Date of visit: 01/03/24 to 01/13/24 Diagnosis: [...] MG TABLET Turner Bundy documented in this encounterUniversity Hospitals Portage Medical Center12-18-2024 Telephone encounter Note * Telephone Encounter - Carey Cervantes RN - 02/15/2024 8:36 AM EST The patient has been identified by name [...] Cervantes RN February 15, 2024 8:37 AM [facility]12-18-2024 Miscellaneous Notes* Telephone Encounter - Carey Cervantes RN - 02/15/2024 8:36 AM EST The patient has been identified by name [...] 15, 2024 8:37 AM documented in this encounterUniversity Hospitals Portage Medical Center12-17-2024 Telephone encounter Note * Telephone Encounter - Karon Lane LPN - 02/14/2024 12:45 PM EST Patient omeprazole rx went to wrong pharmacy. [...] Lane LPN February 14, 2024 12:53 PM [facility]12-17-2024 Miscellaneous Notes* Telephone Encounter - Karon Lane LPN - 02/14/2024 12:45 PM EST Patient omeprazole rx went to wrong pharmacy. [...] 14, 2024 12:53 PM documented in this encounterUniversity Hospitals Portage Medical Center12-12-2024 Telephone encounter Note * Telephone Encounter - Carey Cervantes RN - 02/09/2024 9:54 AM EST The patient has been identified by name [...] Cervantes RN February 09, 2024 9:55 AM [facility]12-12-2024 Miscellaneous Notes* Telephone Encounter - Carey Cervantes RN - 02/09/2024 9:54 AM EST The patient has been identified by name [...] 09, 2024 9:55 AM documented in this encounterUniversity Hospitals Portage Medical Center11-20-2024 History of Present illness Narrative* Gia Gonzales RT(R) - 01/18/2024 9:30 AM EST Radiology Service Progress Note PATIENT NAME: [...] PATIENT PRESENTS WITH AN IMPLANTABLE OR ATTACHED GEM TECHNICIAN: No RADIOLOGY DEPARTMENT: General X-ray: Exam(s) Completed: Chest X-Ray PERIPHERAL IV DATA: Not applicable SIGNED BY: RT Jarrod(Tomy) January 18, 2024 9:28 AM documented in this encounterUniversity Hospitals Portage Medical Center11-20-2024 NoteHNO ID: [id number] Author: GIA GONZALES RT(R) Service: Radiology Author Type: Technologist Type: [...] PATIENT PRESENTS WITH AN IMPLANTABLE OR ATTACHED GEM TECHNICIAN: No RADIOLOGY DEPARTMENT: General X-ray: Exam(s) Completed: Chest X-Ray PERIPHERAL IV DATA: Not applicable SIGNED BY: RT Jarrod(R) January 18, 2024 9:28 [facility]11-20-2024 NoteHNO ID: [id number] Author: JINA GAYLE APRN.[facility] Service: ? Author Type: Nurse Practitioner Type: Progress Notes Filed: 01/18/2024 10:23 Note Text: This note was created using MyLiferiter. Subjective Levy Todd is a 28 year [...] anton per patient Patient is accompanied by house wirer helperDianna The history is provided by the patient and a caregiver. No foreign languages department chair was used. Sore Throat This is a [...] tabs daily for 3 (more content not included)...[facility]11-20-2024 History of Present illness Narrative* Jina Gayle APRN.[facility] - 01/18/2024 9:04 AM EST This note was created using NoteWriter. Subjective [...] anton per patient Patient is accompanied by house wirer helper, Dianna The history is provided by the patient and a caregiver. No foreign languages department chair was used. Sore Throat This is a [...] care with fluids and rest Jina Gayle APRN.CASTRO [phone] manager clinical informatics Dianna notified of negative CXR results @ 1015 Await COVID results Continue supportive F/U with PCP documented in this encounterUniversity Hospitals Portage Medical Center11-15-2024 NoteInpatient Psychiatry Discharge Summary Patient Name: Levy Todd MR #: [id number] : 1995 Admit Date: [id number] Discharge Date/Time: 01/13/2024 4:00 PM Clinical Summary Reason for Hospitalization: Levy Todd is a 28 y.o. male with a history of schizoaffective disorder, was brought to [facility] emergency department from [facility] where he has been residing for past 1 month with 3 other residents. Patient is currently attending day treatment program and told assembly department supervisor about experiencing hearing voices, telling him [...] Patient was evaluated by the prescreener at [facility] and considering deteriorating emotional state, hospitalization was recommended. Patient has history of previous psychiatric hospitalizations at [place], [facility], [facility], [facility] and [facility] psychiatry in past. He is attending [facility] for follow up, receiving long-acting injection Patient was living with mother until a month ago and was placed in a care home with 3 other residents. Patient is only [...] Commonly known as: LAMICT (more content not included)...[facility] 01-12-2024 NotePsychiatry Progress Note Patient Name: Levy Todd Admit Date: [id number] MR #: [id number] : 1995 Perpetual Assessment Levy Todd is [...] AM AUTHENTICATED BY [place], ON 01/13/2024 11:52:[address] [place] [address] 01-11-2024 NotePsychiatry Progress Note Patient Name: Levy Todd Admit Date: [id number] MR #: [id number] : 1995 Perpetual Assessment Levy Todd is [...] PM AUTHENTICATED BY [place], ON 01/11/2024 16:39:[address] [place] [address] 01-10-2024 NotePsychiatry Progress Note Patient Name: Levy Todd Admit Date: [id number] MR #: [id number] : 1995 Perpetual Assessment Levy Todd is [...] PM AUTHENTICATED BY [place], ON 01/10/2024 13:31:00[facility] 01-09-2024 NotePsychiatry Progress Note Patient Name: Levy Todd Admit Date: [id number] MR #: [id number] : 1995 Perpetual Assessment Levy Todd is [...] PM AUTHENTICATED BY [place], ON 01/09/2024 13:33:[address] [place] [address] 01-08-2024 NotePsychiatry Progress Note Patient Name: Levy Todd Admit Date: 11050403 MR #: [id number] : 1995 Perpetual Assessment Levy Todd is [...] PM AUTHENTICATED BY [place], ON 01/08/2024 14:10:[address] [place] [address] 01-07-2024 NotePsychiatry Progress Note Patient Name: Levy Todd Admit Date: 11050403 MR #: [id number] : 1995 Perpetual Assessment Levy Todd is [...] PM AUTHENTICATED BY BO[place], ON 01/07/2024 12:22:[address] [place] [address] 01-06-2024 NotePsychiatry Progress Note Patient Name: Levy Todd Admit Date: [id number] MR #: [id number] : 1995 Perpetual Assessment Levy Todd is [...] PM AUTHENTICATED BY [place], ON 01/06/2024 14:07:24[facility] 01-05-2024 NotePsychiatry History and Physical Patient Name: Levy Todd MR #: [id number] : 1995 Admit Date: 165537 Primary Care Provider: Turner Bundy MD Assessment Levy Todd is a 28 y.o. male resident of [facility] was brought to [facility] emergency department after he had presented with [...] from family/providers Review of prior medical records client services associate assessment/care coordination Recommendations: Patient is receiving injection [...] history of schizoaffective disorder, was brought to [facility] emergency department from [facility] where he has been residing for past 1 month with 3 other residents. Patient is currently attending day treatment program and told assembly department supervisor about experiencing hearing voices, telling him [...] Patient was evaluated by the prescreener at [facility] and considering deteriorating emotional state, hospitalization was recommended. Patient has history of previous psychiatric hospitalizations at [facility], [facility], [facility] and [facility] psychiatry in past. He is attending [facility] for follow up, receiving long-acting injection Patient was living with mother until a month ago and was placed in a care home with 3 other residents. Patient is only [...] carbonate, Seroquel, Remeron, Invega Trinza [facility] [place], [facility], [facility], [facility] Past suicide attempts: Not known Past self injurious behavior: None Outpatient linkage: [facility] The patient otherwise denies any previous psychiatric problems or diagnoses, inpatient or outpatient mental health care, suicide attempts, use of psychotropic medications, or any self injurious behavior. Family Psychiatric History None The patient otherwise denies any family history of mental illness or treatment, psychiatric hospitalizations, suicide attempts, or substance problems. 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 Family [...] Drug use: Never S (more content not included)...[facility]10-07-2024 Telephone encounter Note* Telephone Encounter - Pam Gray MA - 12/05/2023 2:07 PM EDT Pt notified of results via [employer]. Pam Gray Ma [facility]10-07-2024 Miscellaneous Notes* Telephone Encounter - Pam Gray MA - 12/05/2023 2:07 PM EDT Pt notified of results via [employer]. Pam Gray Ma * Telephone Encounter - Pam Gray MA - 12/05/2023 2:06 PM EDT ----- Message from Angelina Claudio sent at 12/05/2023 1:48 PM EDT ----- Labs are ok. Very mild anemia but iron, B12, folate, and iron stores are normal. No diabetes. documented in this encounterUniversity Hospitals Portage [facility] Center10-07-2024 Telephone encounter Note * Telephone Encounter - Pam Gray MA - 12/05/2023 2:06 PM EDT ----- Message from Angelina Claudio sent at 12/05/2023 1:48 PM EDT ----- Labs are ok. Very mild anemia but iron, B12, folate, and iron stores are normal. No diabetes. [facility]10-04-2024 NoteHNO ID: [id number] Author: TURNER BUNDY MD Service: ? Author Type: Physician Type: Progress Notes Filed: 12/02/2023 11:44 Note Text: Patient presents with: ER F/U HPI: Patient presents today for office visit for followup. HOSPITAL/ER FOLLOW UP: Reason for visit: palpitations Which facility: [facility] Date of visit: 11/27/23 Diagnosis: palpitations Testing [...] was up. He is now in a care home. Has some bruising on his chest wall. [...] negative other than (more content not included)... [facility]10-04-2024 History of Present illness Narrative* Turner Bundy MD - 12/02/2023 10:28 AM EDT Patient presents with: ER F/U HPI: Patient presents today for office visit for followup. HOSPITAL/ER FOLLOW UP: Reason for visit: palpitations Which facility: [facility] Date of visit: 11/27/23 Diagnosis: palpitations Testing [...] was up. He is now in a care home. Has some bruising on his chest wall. [...] 6MO-64YR, TRIVALENT (AFLURIA, FLULAVAL, FLUVIRIN, FLUZONE) - PFIZER-BIONTECH COVID-19 VACCINE AGE 12+ YR (COMIRNATY) Change tylenol to 325 mg 2 tabs po q six hours prn pain or fever. Immodium AD 2 mg one po q 6 hours prn diarrhea. Turner Bundy MD documented in this encounterUniversity Hospitals Portage Medical Center09-30-2024 Telephone encounter Note * Telephone Encounter - Enriqueta Davila RN - 11/28/2023 11:33 AM EDT Mother reports patient has been sleeping a lot for the past 3 mths. Sleeps after day program from 2:30-4:30, then again from 8 p - 7:30 am. Reports yesterday patient was having right chest pain, feltlike someone was tapping his chest hard. Went to [facility] ER. CXR, EKG, and labs showed nothing. Advisedto f/u with pcp. Reports patient is moving to a Nursing Home tomorrow, and maybe that has something to do with it. Reports she will keep guardianship. Scheduled f/u appt with pcp. [facility]09-30-2024 Miscellaneous Notes* Telephone Encounter - Enriqueta Davila RN - 11/28/2023 11:33 AM EDT Mother reports patient has been sleeping a lot for the past 3 mths. Sleeps after day program from 2:30-4:30, then again from 8 p - 7:30 am. Reports yesterday patient was having right chest pain, feltlike someone was tapping his chest hard. Went to [facility] ER. CXR, EKG, and labs showed nothing. Advisedto f/u with pcp. Reports patient is moving to a Nursing Home tomorrow, and maybe that has something to do with it. Reports she will keep guardianship. Scheduled f/u appt with pcp. documented in this encounterUniversity Hospitals Portage Medical Center09-27-2024 Telephone encounter Note * Telephone Encounter - Carey Cervantes RN - 11/25/2023 10:30 AM EDT The patient has been identified by name [...] Cervantes RN November 25, 2023 10:30 AM [facility]09-27-2024 Miscellaneous Notes* Telephone Encounter - Carey Cervantes RN - 11/25/2023 10:30 AM EDT The patient has been identified by name [...] 25, 2023 10:30 AM documented in this encounterUniversity Hospitals Portage [facility] Center09-19-2024 Telephone encounter Note * Telephone Encounter - Katina Shannon - 11/17/2023 6:10 PM EDT Called patient and scheduled as directed Katina Shannon [facility]09-19-2024 Miscellaneous Notes* Telephone Encounter - Katina Shannon - 11/17/2023 6:10 PM EDT Called patient and scheduled as directed Katina Shannon * Telephone Encounter - Angelina Claudio APRN.CNP - 11/17/2023 5:09 PM EDT Please facilitate scheduling of pulmonary consult. Patient lives in a care home. * Telephone Encounter - Pam Gray MA - 11/17/2023 2:55 PM EDT Pt mother notified. She would like him to see Pulmonary. Pam Gray MA * Telephone Encounter - Pamela Nieves APRN.CNP - 11/17/2023 1:07 PM EDT Please let patient know that his PFT's were inconclusive and his SOB may be related to his size. Ifhe would like I can send him to pulmonary for further evaluation. documented in this encounterUniversity Hospitals Portage Medical Center09-19-2024 Telephone encounter Note * Telephone Encounter - Angelina Claudio APRN.CNP - 11/17/2023 5:09 PM EDT Please facilitate scheduling of pulmonary consult. Patient lives in a care home. [facility]09-19-2024 Telephone encounter Note* Telephone Encounter - Pam Gray MA - 11/17/2023 2:55 PM EDT Pt mother notified. She would like him to see Pulmonary. Pam Gray MA [facility]09-19-2024 Telephone encounter Note* Telephone Encounter - Pamela Nieves APRN.CNP - 11/17/2023 1:07 PM EDT Please let patient know that his PFT's were inconclusive and his SOB may be related to his size. Ifhe would like I can send him to pulmonary for further evaluation. [facility]09-17-2024 Telephone encounter Note* Telephone Encounter - Klarissa Tyler MA - 11/15/2023 11:52 AM EDT Mychart message sent to pt notifying him office has attempted x 2 calls with message left to returncall. Notified pt of normal chest XR result as noted below. Asked pt to notify office that message has been received. Will keep encounter open to make sure message has been read. Once read will close encounter. Klarissa Tyler MA [facility]09-17-2024 Miscellaneous Notes* Telephone Encounter - Klarissa Tyler MA - 11/15/2023 11:52 AM EDT Mychart message sent to pt notifying him office has attempted x 2 calls with message left to returncall. Notified pt of normal chest XR result as noted below. Asked pt to notify office that message has been received. Will keep encounter open to make sure message has been read. Once read will close encounter. Klarissa Tyler MA * Telephone Encounter - Pam Gray MA - 11/14/2023 10:29 AM EDT Additional message left for pt to call back. Pam Gray MA * Telephone Encounter - Pam Gray MA - 11/11/2023 12:04 PM EDT Message left for pt to call back for results. Pam Gray MA * Telephone Encounter - Pamela Nieves APRN.CNP - 11/11/2023 10:49 AM EDT Please let patient know their xray is normal. documented in this encounterUniversity Hospitals Portage Medical Center09-16-2024 NoteHNO ID: [id number] Author: XIMENA MOSCOSO RPFT Service: ? Author Type: Respiratory Therapist Type: Progress Notes Filed: 11/14/2023 11:25 Note Text: PULM FUNCTION: Provider: Pamela Nieves APRN.[facility] Assisting Tech: Ximena Moscoso RPFT Spirometry w/BD: 1 LV - Gas: [facility] History of Present illness Narrative* Ximena Moscoso RPFT - 11/14/2023 11:04 AM EDT PULM FUNCTION: Provider: Pamela Nieves APRN.CNP Assisting Tech: Ximena Moscoso, RPFT Spirometry w/BD: 1 LV - Gas: 1 documented in this encounterUniversity Hospitals Portage Medical Center09-16-2024 Telephone encounter Note * Telephone Encounter - Pam Gray MA - 11/14/2023 10:29 AM EDT Additional message left for pt to call back. Pam Gray MA [facility]09-13-2024 Telephone encounter Note* Telephone Encounter - Pam Gray MA - 11/11/2023 12:04 PM EDT Message left for pt to call back for results. Pam Gray MA [facility]09-13-2024 Telephone encounter Note* Telephone Encounter - Pamela Nieves APRN.CNP - 11/11/2023 10:49 AM EDT Please let patient know their xray is normal. [facility]09-12-[facility]24 History of Present illness Narrative* Jose Arredondo RT(Tomy) - 11/10/2023 3:00 PM EDT Radiology Service Progress Note PATIENT [...] PATIENT PRESENTS WITH AN IMPLANTABLE OR ATTACHED GEM TECHNICIAN: No RADIOLOGY DEPARTMENT: General X-ray: Exam(s) Completed: Chest X-Ray PERIPHERAL IV DATA: Not applicable SIGNED BY: RT Santiago(Tomy) November 10, 2023 2:36 PM documented in this encounterUniversity Hospitals Portage Medical Center09-12-2024 NoteHNO ID: [id number] Author: JOSE ARREDONDO RT(Tomy) Service: Radiology Author Type: Technologist Type: Progress [...] PATIENT PRESENTS WITH AN IMPLANTABLE OR ATTACHED GEM TECHNICIAN: No RADIOLOGY DEPARTMENT: General X-ray: Exam(s) Completed: Chest X-Ray PERIPHERAL IV DATA: Not applicable SIGNED BY: MELISA Henderson) November 10, 2023 2:36 [facility]09-12-2024 NoteHNO ID: [id number] Author: PAMELA NIEVES APRN.[facility] Service: ? Author Type: Nurse Practitioner Type: [...] visit. Social History So (more content not included)...[facility]09-12-2024 History of Present illness Narrative* Pamela Nieves, HIRAL[facility] - 11/10/2023 2:22 PM EDT Chief Complaint Patient presents with: Cough: X [...] understanding. Pamela Nieves APRN.CASTRO documented in this encounterUniversity Hospitals Portage Medical Center08-26-2024 NoteHNO ID: [id number] Author: WOO VARGAS APRN.CASTRO Service: ? Author Type: Nurse Practitioner Type: [...] HENT: Positive for so (more content not included)...[facility] 10-24-2023 History of Present illness Narrative* Woo Vargas [facility] - 10/24/2023 3:48 PM EDT Subjective HPI HPI Levy Todd is a [...] MICROSCOPIC - C. DIFFICILE PCR Woo Vargas APRN.[facility] documented in this encounterUniversity Hospitals Portage Medical Center07-22-2024 Instructions* Patient Instructions* Angelina Claudio APRN.CNP - 09/19/2023 3:30 PM EDT 1) Follow up in 6 months 2) Get labs at next appointment documented in this encounterUniversity Hospitals Portage Medical Center07-22-2024 NoteHNO ID: [id number] Author: ANGELINA CLAUDIO APRN.CNP Service: ? Author [...] Negative for lumps, goite (more content not included)...[facility]07-22-2024 History of Present illness Narrative* Angelina Claudio, [facility]AL[facility] - 09/19/2023 3:15 PM EDT This is a 27 year old male [...] no constipation. No hematochezia/melena. + heartburn or refluxsymptoms. : No history of dysuria, frequency or [...] improvement. Angelina Claudio APRN.CNP documented in this encounterUniversity Hospitals Portage Medical Center07-09-2024 Telephone encounter Note * Telephone Encounter - Carey Cervantes RN - 09/06/2023 10:16 AM EDT Opened In Error [facility]07-09-2024 Miscellaneous Notes* Telephone Encounter - Carey Cervantes RN - 09/06/2023 10:16 AM EDT Opened In Error documented in this encounterUniversity Hospitals Portage Medical Center06-27-2024 Instructions* Patient Instructions* Jina Gayle APRN.[facility] - 08/25/2023 1:42 PM EDT RESPIRATORY INFECTION [...] antibiotics. They are spread by coughs, sneezes, anddirect contact, especially [id number]. A respiratory tract infection usually clears up [...] as water, fruit juice, tea, clear soups, andcarbonated beverages. CONTACT YOUR DOCTOR IF : 1. [...] 102 F (39 C). documented in this encounterUniversity Hospitals Portage Medical Center06-27-2024 History of Present illness Narrative* Leah Guillen RT(R) - 08/25/2023 1:30 PM EDT Radiology Service Progress Note PATIENT [...] PATIENT PRESENTS WITH AN IMPLANTABLE OR ATTACHED GEM TECHNICIAN: No RADIOLOGY DEPARTMENT: General X-ray: Exam(s) Completed: Chest X-Ray PERIPHERAL IV DATA: Not applicable SIGNED BY: RT Annette(R) August 25, 2023 1:29 PM documented in this encounterUniversity Hospitals Portage Medical Center06-27-2024 History of Present illness Narrative* Jina Gayle APRN.CNP - 08/25/2023 1:22 PM EDT This note was created using NoteWriter. Subjective [...] he was admitted until yesterday, at a [facility] for approximately 3 weeks ago. Accompanied by grandfather The history is provided by the patient. No foreign languages department chair was used. Cough This is a new [...] ear pain, no headaches, no myalgias, no shor tness of breath and no eye redness. He [...] He is obese. He is not ill-appearing, toxic- appearing or diaphoretic. HENT: Head: Normocephalic and atraumatic. [...] symptoms - Declines flu testing Jina Gayle APRN.[facility] documented in this encounterUniversity Hospitals Portage Medical Center06-05-2024 Telephone encounter Note * Telephone Encounter - Paula Gay LPN - 08/03/2023 11:09 AM EDT Mother is asking asking that the script [...] Please advise. Thank you. Paula Gay LPN. [facility]06-05-2024 Miscellaneous Notes* Telephone Encounter - Paula Gay LPN - 08/03/2023 11:09 AM EDT Mother is asking asking that the script [...] you. Paula Gay LPN. documented in this encounterUniversity Hospitals Portage Medical Center06-04-2024 Miscellaneous Notes* Telephone Encounter - Radha Bermudez MA - 08/02/2023 8:21 AM EDT PA approved 07/18/23 until further notice Faxed approval to zarina Bermudez MA * Telephone Encounter - Radha Bermudez MA - 08/01/2023 3:34 PM EDT Prior Authorization has been completed online at [employer] for lidocaine patches, will await response. [id number] Please keep encounter open until final decision has been received and documented from insurance company. Radha Bermudez MA documented in this encounterUniversity Hospitals Portage Medical Center06-04-2024 Telephone encounter Note * Telephone Encounter - Radha Bermudez MA - 08/02/2023 8:21 AM EDT PA approved 07/18/23 until further notice Faxed approval to zarina Bermudez MA [facility]06-03-2024 Telephone encounter Note* Telephone Encounter - Radha Bermudez MA - 08/01/2023 3:34 PM EDT Prior Authorization has been completed online at [employer] for lidocaine patches, will await response. [id number] Please keep encounter open until final decision has been received and documented from insurance company. Radha Bermudez MA [facility]05-31-2024 Telephone encounter Note* Telephone Encounter - Shraddha Concepcion RN - 07/29/2023 10:04 AM EDT Patient has been identified by [...] Please advise. Thank you. Shraddha Concepcion RN. [facility]05-31-2024 Miscellaneous Notes* Telephone Encounter - Shraddha Concepcion RN - 07/29/2023 10:04 AM EDT Patient has been identified by [...] you. Shraddha Concepcion RN. documented in this encounterUniversity Hospitals Portage Medical Center05-24-2024 Telephone encounter Note * Telephone Encounter - Angelina Claudio APRN.CNS - 07/22/2023 9:54 AM EDT The following approved medication requests have been transmitted electronically. Requested Prescriptions Pending Prescriptions Disp Refills omeprazole (PRILOSEC) 40 mg capsule 90 capsule 3 Sig: Take 1 capsule by mouth once daily. Angelina Claudio APRN.CNS [facility]05-24-2024 Miscellaneous Notes* Telephone Encounter - Angelina Claudio APRN.CNS - 07/22/2023 9:54 AM EDT The following approved medication requests have been transmitted electronically. Requested Prescriptions Pending Prescriptions Disp Refills omeprazole (PRILOSEC) 40 mg capsule 90 capsule 3 Sig: Take 1 capsule by mouth once daily. Angelina Claudio APRN.CNS * Telephone Encounter - Danika Johnson RN - 07/22/2023 9:41 AM EDT Pharmacy phones for refill(s): Requested Prescriptions Pending Prescriptions Disp Refills omeprazole (PRILOSEC) 40 mg capsule 30 capsule 2 Sig: Take 1 capsule by mouth once daily. Date of last office visit in primary care: 07/14/2023 Date of next office visit in primary care: 09/12/2023 Danika Johnson RN. documented in this encounterUniversity Hospitals Portage Medical Center05-24-2024 Telephone encounter Note * Telephone Encounter - Danika Johnson RN - 07/22/2023 9:41 AM EDT Pharmacy phones for refill(s): Requested Prescriptions Pending Prescriptions Disp Refills omeprazole (PRILOSEC) 40 mg capsule 30 capsule 2 Sig: Take 1 capsule by mouth once daily. Date of last office visit in primary care: 07/14/2023 Date of next office visit in primary care: 09/12/2023 Danika Johnson RN. [facility]05-16-2024 Note* Addendum Note - Angelina Claudio APRN.CNS - 07/14/2023 1:37 PM EDTAddended by: ANGELINA CLAUDIO on: 07/14/2023 01:37 PM Modules accepted: Orders [facility]05-16-2024 Miscellaneous Notes* Addendum Note - Angelina Claudio APRN.CNS - 07/14/2023 1:37 PM EDTAddended by: ANGELINA CLAUDIO on: 07/14/2023 01:37 PM Modules accepted: Orders * Addendum Note - Angelina Claudio APRN.CNS - 07/14/2023 1:33 PM EDT Addended by: ANGELINA CLAUDIO on: 07/14/2023 01:33 PM Modules accepted: Orders documented in this encounterUniversity Hospitals Portage Medical Center05-16-2024 Note* Addendum Note - Angelina Claudio APRN.CNS - 07/14/2023 1:33 PM EDTAddended by: ANGELINA CLAUDIO on: 07/14/2023 01:33 PM Modules accepted: Orders [facility]05-16-2024 Instructions* Patient Instructions* Angelina Claudio APRN.CNS - 07/14/2023 1:31 PM EDT 1) Augmentin 2 x day for 14 days 2) Saline nasal spray frequently while on antibiotic 3) Check labs 4) Follow up with Dami in August as scheduled documented in this encounterUniversity Hospitals Portage Medical Center05-16-2024 History of Present illness Narrative* Angelina Claudio APRN.CNS - 07/14/2023 1:12 PM EDT This is a 27 year old male [...] 25 HYDROXY - Work excuse for Tuesday, and tomorrow 2. Encounter for screening for [...] improvement. Angelina Claudio APRN.CNS documented in this encounterUniversity Hospitals Portage Medical Center04-22-2024 Instructions* Patient Instructions* Angelina Claudio APRN.CNS - 06/20/2023 3:23 PM EDT 1) Augmentin 2 chewable tablets twice a day for 10 days 2) Saline nasal spray frequently while on the antibiotic 3) Off work through tomorrow 4) Follow up Dami in August as scheduled documented in this encounterUniversity Hospitals Portage Medical Center04-22-2024 History of Present illness Narrative* Angelina Claudio APRN.CNS - 06/20/2023 3:11 PM EDT This is a 27 year old male [...] as needed for worsening/no improvement. 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 documented in this encounterUniversity Hospitals Portage Medical Center04-03-2024 Miscellaneous Notes* Telephone Encounter - Radha Bermudez MA - 06/01/2023 8:29 AM EDT Mother notified that letter could be picked up for off work all week. 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 Sent letter through [employer] Shredded printed letter Radha Bermudez MA * Telephone Encounter - Carey Cervantes RN - 05/31/2023 4:56 PM EDT Patient's mother calls back and states that she thinks that patient needs to be off all week. See Message Below Carey Cervantes RN * Telephone Encounter - Karon Lane LPN - 05/31/2023 4:50 PM EDT Patient mother Annmarie calling asking for 2 more days off work. He was supposed to go back to work tomorrow. Asking to have note for work sent to his my chart. He has swollen uvula and being treated for strep. Please advise documented in this encounterUniversity Hospitals Portage Medical Center04-02-2024 Miscellaneous Notes* Telephone Encounter - Angelina Claudio APRN.CNS - 05/31/2023 5:26 PM EDT Patient may be off work until June 05. documented in this [facility]04-01-2024 Instructions* Patient Instructions* Angelina Claudio APRN.CNS - 05/30/2023 3:07 PM EDT 1) Benzonatate 100mg gel capsule- swallow whole for numbing the cough 2) Amoxicillin liquid 6ml 4 x day for 10 days 3) No work tomorrow 4) Follow up as scheduled documented in this encounterUniversity Hospitals Portage Medical Center04-01-2024 History of Present illness Narrative* Angelina Claudio APRN.CNS - 05/30/2023 2:53 PM EDT This is a 27 year old male [...] in no acute distress, well-hydrated, well nourished. andOverweight. Skin: Skin color, texture, turgor normal, no [...] patient request due to difficulty swallowing - [employer] Discussed treatment plan and patient voices understanding. Patient's questions answered appropriately. Medications and potential side effects were discussed and patient voices understanding. Return to the office as scheduled or as needed for worsening/no improvement. Angelina Claudio APRN.CNS The patient indicates understanding of these issues and agrees with the plan. documented in this encounterUniversity Hospitals Portage Medical Center03-05-2024 Miscellaneous Notes* Telephone Encounter - Angelina Claudio APRN.CNS - 05/03/2023 8:56 AM EST [employer] Tele[employer]t message sent to patient regarding urinalysis. No urinary tract infection, trace leukocytes with no nitrates. No culture completed. Encouraged to drink fluids. documented in this encounterUniversity Hospitals Portage Medical Center03-04-2024 Miscellaneous Notes* Addendum Note - Angelina Claudio APRN.CNS - 05/02/2023 4:27 PM EST Addended by: ANGELINA CLAUDIO on: 05/02/2023 04:27 PM Modules accepted: Orders documented in this encounterUniversity Hospitals Portage Medical Center03-04-2024 Instructions* Patient Instructions* Angelina Claudio APRN.CNS - 05/02/2023 4:22 PM EST 1) Covid booster today 2) Flu shot today 3) Get urinalysis- will send for reflex culture 4) Cogentin and vistaril renewed 5) Follow up as scheduled in August documented in this encounterUniversity Hospitals Portage Medical Center03-04-2024 History of Present illness Narrative* Angelina Claudio APRN.CNS - 05/02/2023 4:09 PM EST This is a 27 year [...] ICD9: 295.70, ICD10: F25.0 (primary diagnosis) Renewed cogentin and vistaril, has the others 2. Abdominal pain, unspecified [...] agrees with the plan. documented in this encounterUniversity Hospitals Portage Medical Center02-19-2024 Discharge summary Author Sisi Zavala [facility] April 18, 2023 12:48am Note Date/Time April 17, 2023 3:36pm [facility] Medical Records Department [address] [place] [id number] Emergency Department Summary 04/17/23 MR#: [id number] Acct: [id number] Name: LEVY TODD Rep #:[id number] : 1995 27 From: Yennifer ZABALA PCP: [...] be placed. He is currently pending at [facility]. He will be signed out to oncoming [...] to run in front of a car. [facility] Medical History ADHD (attention deficit hyperactivity [...] tox is positive for opiates. Alcohol negative. [place] level is low which could be from [...] % (Auto) 68.8 Lymph % (Auto) 22.8 [place] % (Auto) 8.0 Eos % (Auto) 0.0 [...] (Ecstasy) Screen NEGATIVE U Benzodiazepines Scrn NEGATIVE [place] < 0.20 L Urine Cocaine Screen NEGATIVE [...] your Primary Care Provider. Call [facility] ([phone]) or report to the closest Emergency Room. Call 911 if necessary. 04/17/232022 <Electronically signed by Yennifer ZABALA> Cosigner Signature (if applicable): 04/18/2347 <Electronically signed by Sisi Zavala MD> CC: Dr. Turner Bundy MD ~ Signed [facility] Work Phone: 1([phone]) 411-837302-13-2024 History of Present illness Narrative* Francy Mittal APRN.[employer]OSPITALITY WORKERS - 04/12/2023 2:15 PM EST This is [...] as needed for worsening/no improvement. Francy Mittal APRN.HOSPITALITY WORKERS documented in this encounterUniversity Hospitals [facility]age [facility]02-07-2024 History of Present illness Narrative* Woo Vargas APRN.HOSPITALITY WORKERS - 04/06/2023 5:40 PM EST Images from [...] LIDOCAINE 5 % TOPICAL PATCH Woo Vargas APRN.HOSPITALITY WORKERS documented in this encounterUniversity Hospitals Portage Medical Center02-07-2024 Miscellaneous Notes* Telephone Encounter - Li Mancini [...] Prior Authorization has been completed online at [employer] for Fluticasone, will await response. CARRILLO- [id number] Please keep encounter open until final decision has been received and documented from insurance company. Claudia Foster LPN documented in this encounterUniversity Hospitals Portage Medical Center01-23-2024 History of Present illness Narrative* Leah Guillen, RT(R) - 03/22/2023 3:20 PM EST Radiology [...] 22, 2023 3:17 PM documented in this encounterUniversity Hospitals Portage [facility] Center11-06-2023 History of Present illness Narrative* Nadia Eaton LPN - 01/03/2023 2:[address] Solares, Levy was provided with replacement Aircast, size L, and instructed/educated in its application, wear, and care. All questions were answered, and patient was able to demonstrate competence with the necessary skills to utilize the above equipment. Replacement cost will be handled through [employer]. Nadia Eaton LPN * Fern Solares - [...] than it had been. documented in this encounterUniversity Hospitals Portage Medical Center11-06-2023 Instructions* Patient Instructions* Fern Solares - 01/03/2023 2:49 PM EST Transition to shoe Tylenol twice daily Ice foot in cold water bath tub x 10 minutes twice daily If pain fails to improve within the next 2-3 weeks, return to boot and call Dr. Solares documented in this encounterUniversity Hospitals Portage Medical Center10-31-2023 Miscellaneous Notes* Telephone Encounter - Kely Cerna [...] you. Kely Cerna LPN. documented in this encounterUniversity Hospitals Portage Medical Center10-20-2023 History of Present illness Narrative* Ashleigh Hays RN - 12/17/2022 2:[address] Solares, Levy was provided with Pneumatic walking boot, size Large, and instructed/educated in its application, wear, and care. All questions were answered, and patient was able to demonstrate competence with the necessary skills to utilize the above equipment. Patient signed DJO Patient agreement. [employer] to bill patient's insurance for product. Ashleigh Hays RN * Fern Solares - 12/17/2022 1:49 PM [...] today. Izzy Goode LPN documented in this encounterUniversity Hospitals Portage Medical Center10-12-2023 Miscellaneous Notes* Telephone Encounter - Nadia Eaton [...] advise. Izzy Goode LPN documented in this encounterUniversity Hospitals Portage Medical Center10-12-2023 Miscellaneous Notes* Telephone Encounter - Nadia Eaton [...] 03. This is in regard to the [employer] message from 11/06. Explained that provider is going to be out of the office for a few days but we would see if there was any place he could be worked in. Sending to [facility] nurses. Kimmie Ptaton MA documented in this encounterUniversity Hospitals Portage Medical Center10-09-2023 Nurse Note* Abby Rosen - 12/06/2022 2:38 PM EDT Ambulatory Ear Lavage Pre-treatment: Warm water Treatment: Both ears Equipment and Irrigation solution and Volume used: Single use syringe with single use irrigation tip Water Return flow appearance: Brown Yellow Patient tolerated procedure: yes Tympanic membrane assessment: Tympanic membrane assessed by LIP pre and post procedure Abby Rosen documented in this encounterUniversity Hospitals Portage Medical Center10-09-2023 History of Present illness Narrative* Jatin Herrera [...] LAVAGE/IRRIGATION Jatin Herrera MD documented in this encounterUniversity Hospitals Portage Medical Center10-06-2023 Miscellaneous Notes* Telephone Encounter - Belen Doan [...] you. Belen Doan LPN documented in this encounterUniversity Hospitals Portage Medical Center09-06-2023 History of Present illness Narrative* Daniel Vaz [...] 03, 2022 4:15 PM documented in this encounterUniversity Hospitals Portage Medical Center09-06-2023 History of Present illness Narrative* Fern Solares [...] to the tip Patient recently went to [facility] and had xrays done. No fracture. [...] mother. Nadia Eaton LPN documented in this [facility]08-23-2023 Nurse Note* Nimco Taylor LPN - 10/20/2022 [...] pre and post procedure documented in this [facility]08-23-2023 Instructions* Patient Instructions* Turner Bundy MD - 10/20/2022 5:03 PM EDT Debrox can be used to flush ears at home. documented in this [facility]08-23-2023 History of Present illness Narrative* Turner Bundy [...] above. Turner Bundy MD documented in this encounterUniversity Hospitals Portage Medical Center08-16-2023 History of Present illness Narrative* Turner Bundy MD - 10/13/2022 4:20 PM EDT Patient presents with: ER F/U HPI: Patient presents today for office visit for follow up. HOSPITAL/ER FOLLOW UP: Reason for visit: right great toe pain-no injury was in bed when it locked up Which facility: [facility] Date of visit: 10/11/22 Diagnosis: toe pain [...] TABLET Turner Bundy MD documented in this encounterUniversity Hospitals Portage Medical Center08-14-2023 Discharge summary Author Vazquez Miller [facility] October 11, 2022 10:15pm Note Date/Time October 11, 2022 9: 58pm [facility] Medical Records Department [address] [place] [address] Emergency Department Summary 10/11/22 MR#: [id number] Acct: [id number] Name: LEVY TODD Rep #:[id number] : 1995 27 From: Vazquez Miller MD [...] your Primary Care Provider. Call [facility] ([phone]) or report to the closest Emergency Room. Call 911 if necessary. 10/11/222214 <Electronically signed by Vazquez Miller MD> Cosigner Signature (if applicable): CC: Dr. Turner Bundy MD ~ Signed [facility] Work Phone: [phone]) 371-115807-17-2023 History of Present illness Narrative* Turner Bundy [...] CAPSULE Turner Bundy MD documented in this encounterUniversity Hospitals Portage Medical Center07-07-2023 History of Present illness Narrative* Jose Arredondo RT(R) - 09/03/2022 4:50 PM EDT Radiology [...] IV DATA: Not applicable SIGNED BY: MELISA Henderson) September 03, 2022 4:42 PM documented in this encounterUniversity Hospitals Portage Medical Center07-07-2023 History of Present illness Narrative* Turner Bundy MD - 09/03/2022 4:05 PM EDT Patient presents with: Cough HPI: Patient presents today for office visit for [facility] follow up. Was seen in [facility] on 08/31/22 for cough. Per [...] FRONTAL/LAT Turner Bundy MD documented in this encounterUniversity Hospitals Portage Medical Center07-07-2023 Miscellaneous Notes* Telephone Encounter - Danika Johnson [...] sweats, hemoptysis, N/V/D. Appt made with Dr. Bundy for today for further evaluation of patient, as requested. Danika Johnson RN documented in this encounterUniversity Hospitals Portage Medical Center07-06-2023 Miscellaneous Notes* Telephone Encounter - Nimco Taylor LPN - 09/02/2022 3:04 PM EDT Letter sent to mom. She needed letter stating just what is ordered from Dr Bundy and when to take it. Levy is going to stay somewhere else for awhile and in order for them to give him the medications she needs the letter. Asking to have sent to [facility]. * Telephone Encounter - Carey Cervantes RN - 09/02/2022 2:42 PM EDT Patient's mother calls and is asking for a list of patient's medications as well as when medications should be given. Please review and advise, Carey Cervantes RN documented in this encounterUniversity Hospitals Portage Medical Center06-22-2023 History of Present illness Narrative* SAGRARIO Francois - 08/19/2022 10:42 AM EDT This note was created using MyLifer[employer]. Subjective Levy Todd is a 26 year [...] ER evaluation. SAGRARIO Francois documented in this encounterUniversity Hospitals Portage Medical Center06-20-2023 History of Present illness Narrative* SAGRARIO Francois - 08/17/2022 2:29 PM EDT This note was created using [employer]. Subjective Levy Todd is a 26 year [...] ER evaluation. SAGRARIO Francois documented in this encounterUniversity Hospitals Portage Medical Center05-30-2023 Miscellaneous Notes* Telephone Encounter - Xochilt Ynes THOMAS - 07/27/2022 9:48 AM EDT Mother calls [...] patient. Xochilt Quick LPN documented in this encounterUniversity Hospitals Portage Medical Center05-05-2023 History of Present illness Narrative* Jose Arredondo [...] 02, 2022 3:20 PM documented in this encounterUniversity Hospitals Portage Medical Center05-05-2023 Miscellaneous Notes* Telephone Encounter - Cris Guerrero [...] sure is not changing documented in this encounterUniversity Hospitals Portage Medical Center05-04-2023 History of Present illness Narrative* Turner Bundy [...] Abs Lymph 1.00 - 4.00 k/uL 2.72 [place]% % 7.2 Abs [place] <0.87 k/uL 0.54 Eosin% % 0.0 Abs [...] Negative Ketones, Urine Trace, Negative Negative Specific [place], Ur 1.005 - 1.030 1.010 Hemoglobin/Blood,Ur Negative, Trace Negative pH, Urine 5.0 - 8.0 6.5 Protein, Urine Trace, Negative Negative Urobilinogen Negative Negative Nitrites Negative Negative Leukest Negative, 25 Sandra/uL 25 Sandra/uL WBC, Urine 0-5 /HPF 0-5 /HPF RBC, Urine 0-3 /HPF 0-3 /HPF Epithelial Cells /HPF Few Lipase 16 - 61 U/L 15 (L) [place] 0.6 - 1.2 mmol/L 0.4 (L) Culture [...] MD Turner Mirza MD documented in this encounterUniversity Hospitals Portage Medical Center05-04-2023 Miscellaneous Notes* Telephone Encounter - Nimco Taylor LPN - 07/01/2022 11:17 AM EDT Faxed as requested. * Telephone Encounter - Turner Bundy MD - 07/01/2022 8:42 AM EDT Can we fax his labs to his psychiatrist? We did his lithium level. He is coming in for recheck thisweek to see me documented in this encounterUniversity Hospitals Portage Medical Center05-04-2023 Miscellaneous Notes* Telephone Encounter - Nimco Taylor LPN - 07/01/2022 11:17 AM EDT Faxed as requested. * Telephone Encounter - Luz Elena Lyons RN - 06/30/2022 1:24 PM EDT MARTHA Marti in [place] IT ACCOUNT MANAGER office@ [facility] calling for [place] level lab result. Advised lab is still in process. She is requesting lab result be faxed to when available. Luz Elnea Lyons RN documented in this encounterUniversity Hospitals Portage Medical Center05-02-2023 History of Present illness Narrative* Jose Arredondo [...] 29, 2022 5:01 PM documented in this encounterUniversity Hospitals Portage Medical Center05-02-2023 History of Present illness Narrative* Turner Bundy [...] BLD Turner Bundy MD documented in this encounterUniversity Hospitals Portage Medical Center04-06-[address] Membreno [facility] June 02, 2022 11:42pm Note Date/Time June 02, 2022 10:2 7pm [facility] Medical Records Department [address] [place] [id number] Emergency Department Summary 06/02/22 MR#: [id number] Acct: [id number] Name: LEVY TODD Rep #:[id number] : 1995 26 From: Alex Huitron PCP: [...] he has been compliant with his medications. [facility] Medical History ADHD (attention deficit hyperactivity [...] slight anemia with a hemoglobin of 12.4 [id number]. Basic metabolic profile was reviewed and was [...] % (Auto) 60.6 Lymph % (Auto) 31.5 [place] % (Auto) 7.6 Eos % (Auto) 0.0 Baso % (Auto) 0.1 Absolute Neuts (auto) 5.4 Absolute Lymphs (auto) 2.81 Nucleated RBC % 0 Sodium Potassium Chloride Carbon Dioxide Anion Gap BUN Creatinine Estim Creat Clear Calc Est GFR (MDRD) Af Amer Est GFR (MDRD) Non-Af BUN/Creatinine Ratio Glucose Calcium Urine Color Yellow Urine Clarity Clear Urine pH 6.5 Ur Specific [place] 1.020 Urine Protein 30 H Urine Glucose [...] (Auto) Neut % (Auto) Lymph % (Auto) [place] % (Auto) Eos % (Auto) Baso % [...] Color Urine Clarity Urine pH Ur Specific [place] Urine Protein Urine Glucose (UA) Urine Ketones [...] sinus rhythm with a rate of 77. AK interval, QRS interval, and QTc intervals were all normal. Ogema was normal. There are no acute ST or T wave changes. Prior EKG tracings: available for review Prior: Unchanged (03/26/2020) Management Discussion w/another healthcare provider: rider ticket worker/Case management Treatment and Re-Evaluation Narrative: Patient is medically cleared for psychiatric evaluation. rider ticket worker was in to evaluate the patient [...] your Primary Care Provider. Call [facility] ([phone]) or report to the closest Emergency Room. Call 911 if necessary. 06/02/22 2342 <Electronically signed by Alex Membreno DO> Cosigner Signature (if applicable): CC: Dr. Turner Bundy MD ~ Signed [facility] Work Phone: 1(777) 856-715002-23-[address] Mondragon [facility] April 22, 2022 11:39pm Note Date/Time April 22, 2022 5:22pm [facility] Medical Records Department [address] [place] [address] Emergency Department Summary 04/22/22 MR#: [id number] Acct: [id number] Name: LEVY TODD Rep #:[id number] : 1995 26 From: Marni Mondragon DO [...] and PTSD. Patient with history of schizophrenia. 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 Case discussed with social sciences department chair who evaluated patient. Was felt patient wouldbenefit from an hospital stabilization for his psychiatric issues. rider ticket worker will attempt to find placement to [...] % (Auto) 64.3 Lymph % (Auto) 26.2 [place] % (Auto) 9.1 Eos % (Auto) 0.0 [...] your Primary Care Provider. Call [facility] ([phone]) or report to the closest Emergency Room. Call 911 if necessary. 04/22/22 3099 <Electronically signed by Marni Mondragon DO> Cosigner Signature (if applicable): CC: Dr. Turner Bundy MD ~ Signed [facility] Work Phone: 1(230) 534-559701-26-2023 Miscellaneous Notes* Telephone Encounter - Keesha Brown LPN - 03/25/2022 6:45 PM EST Left message for patient with negative results and recommendations.Keesha Brown LPN * Telephone Encounter - Keesha Brown LPN - 03/25/2022 6:45 PM EST ----- Message from Michelle Wang APRN.[facility]OSPITAL[facility] WORKERS sent at 03/25/2022 2:43 PM EST ----- Please advise patient the urine culture was negative (no sign of infection). He should follow up with urology as advised at the visit. documented in this encounterUniversity Hospitals Portage Medical Center01-25-2023 History of Present illness Narrative* Jatin Herrera [...] TABLET Jatin Herrera MD documented in this encounterUniversity Hospitals Portage Medical Center12-05-2022 Instructions* Patient Instructions* Francy Mittal APRN.HOSPITALITY WORKERS - 02/01/2022 4:31 PM EST FACT SHEET FOR PATIENTS, PARENTS, AND CAREGIVERS EMERGENCY USE AUTHORIZATION (EUA) OF PAXLOVID FOR CORONAVIRUS DISEASE 2019 (COVID-19) You are being given this Fact Sheet because your healthcare provider believes it is necessary to provide you with PAXLOVID for the treatment of vfco-by-seifnept coronavirus disease (COVID-19) caused by the SARS-CoV-2 [...] virus. COVID-19 illnesses have ranged from very ghog-ah-jfbrrb, including illness resulting in . While information [...] is an investigational medicine used to treat uzaj-dc-lujjjohq COVID-19 in adults and children [12 years [...] of using PAXLOVID to treat people with dnsg-bn-ijbywkcb COVID-19. The FDA has authorized the emergency use of PAXLOVID for the treatment of gxbz-nq-yuhsejzw COVID-19in adults and children [12 years of [...] the medicines you take, including prescription and xizy-lum-rvhrfnb medicines, vitamins, and herbal supplements. Some medicines [...] (remdesivir) is FDA-approved for the treatment of qsyd-ve-ydekljbz COVID-19 in certain adults and children. Talk with your doctor to see if Veklury is appropriate for you. Like PAXLOVID, FDA may also allow for the emergency use of other medicines to treat people with COVID-19. Go to https://www.fda.gov/efffdyiee-bfwijxoujsns-dohemscinmm/vwi-bnelj-tkodgftunf-and- policy-framework/oyamtnkgt-vzh-gpcfabynivdww for information on the emergency use of [...] if I am or ? There is technology analyst treating women or mothers with PAXLOVID. For [...] Report side effects to FDA MedWatch at www.fda.gov/[employer] or call 4-666-BWM6168 or you can reportside effects to [employer]. at the contact information provided below. Website Fax number Telephone number www.Divided How should I store PAXLOVID? Store PAXLOVID [...] (EUA). The EUA is supported by a [place] of Health and Human Service (HHS) declaration that circumstances exist to justify the emergency use of drugs and biological productsduring the COVID-19 pandemic. PAXLOVID for the treatment of dzng-fv-olhbnzlb COVID-19 in adults and children [12 years [...] telephone number provided below. Website Telephone number www.KBUNW30xujcVv.[employer] (7-837-V66-AEPP) You can also go to www.Aditazz or call for more information. Pfizer Distributed by [employer] [place] [address] LAB-1494-2.1 Revised: 15 May 2021 documented in this encounterUniversity Hospitals Portage Medical Center12-05-2022 History of Present illness Narrative* Francy Mittal APRN.[employer] - 02/01/2022 4:16 PM EST Chief Complaint [...] agrees to the visit: Yes Patient Location: [facility] Levy Todd is a 26 year old [...] improvement. Nirmatrelvir/Ritonavir (Paxlovid) Eligibility and Patient Discussion [facility] Formulary Restriction Criteria: Adult outpatients 18 years [...] 01, 2022 4:34 PM documented in this encounterUniversity Hospitals Portage Medical Center11-11-2022 Miscellaneous Notes* Telephone Encounter - Carey Cervantes RN - 01/08/2022 3:26 PM EST Last Office Visit: 02/23/2021 Future Office Visit: None Requested Prescriptions Pending Prescriptions Disp Refills omeprazole (PRILOSEC) 40 mg capsule 28 capsule 5 Sig: Take 1 capsule by mouth once daily. Date of Last Labs: 12/23/2020 documented in this encounterUniversity Hospitals Portage Medical Center03-28-2022 History of Present illness Narrative* Jatin Herrera [...] lavage. 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, 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 Staffing EMERGENCY ROOM CLERK: Jennifer Fletcher APRN.CRNA Other anesthesia staff/rotator: Jennifer Fletcher APRN.EMERGENCY ROOM CLERK Performed by: QUIQUE Indications and Patient Condition [...] January 26, 2021 TIME: 2:57 PM CSN: [id number] History of Present illness Narrative* Gia Gonzales [...] 08, 2020 12:19 PM documented in this encounterUniversity Hospitals Portage Medical Center02-10-2016 History of Past illness Narrative* Problem Noted [...] of this encounter (statuses as of 05/25/2021) [facility] History of Past illness Narrative* Problem Noted Date Resolved Date 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 10/02/2015 Abdominal pain, epigastric 10/13/200610/01 Abdominal pain, generalized 10/13/2006/0 05/2015 Abnormality of gait 06/22/2005 10/02/2015 Exostosis of unspecified site 05/31/2005 Onychia and paronychia of toe 04/15/2005 Ingrowing nail 01/08/2005 10/02/2015 Pain in limb 01/08/2005 10/02/2015 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 documented as of this encounter (statuses as of 01/08/2022) [facility]02-[facility]-2016 History of Past illness Narrative* Problem Noted Date Resolved Date 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 10/02/2015 Abdominal pain, epigastric 10/13/200610/01 Abdominal pain, generalized 10/13/200605/2015 Abnormality of gait 06/22/2005 10/02/2015 Exostosis of unspecified site 05/31/2005 Onychia and paronychia of toe 04/15/2005 Ingrowing nail 01/08/2005 10/02/2015 Pain in limb 01/08/2005 10/02/2015 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 documented as of this encounter (statuses as of 02/02/2022) [facility] History of Past illness Narrative* Problem Noted Date Resolved Date 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 10/02/2015 Abdominal pain, epigastric 10/13/200610/01 Abdominal pain, generalized 10/13/20060 05/2015 Abnormality of gait 06/22/2005 10/02/2015 Exostosis of unspecified site 05/31/2005 Onychia and paronychia of toe 04/15/2005 Ingrowing nail 01/08/2005 10/02/2015 Pain in limb 01/08/2005 10/02/2015 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 documented as of this encounter (statuses as of 03/24/2022) [facility] History of Past illness Narrative* Problem Noted Date Resolved Date 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 10/02/2015 Abdominal pain, epigastric 10/13/200610/01 Abdominal pain, generalized 10/13/20060 05/2015 Abnormality of gait 06/22/2005 10/02/2015 Exostosis of unspecified site 05/31/2005 Onychia and paronychia of toe 04/15/2005 Ingrowing nail 01/08/2005 10/02/2015 Pain in limb 01/08/2005 10/02/2015 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 documented as of this encounter (statuses as of 03/26/2022) [facility] History of Past illness Narrative* Problem Noted Date Resolved Date 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 10/02/2015 Abdominal pain, epigastric 10/13/200610/01 Abdominal pain, generalized 10/13/20060 05/2015 Abnormality of gait 06/22/2005 10/02/2015 Exostosis of unspecified site 05/31/2005 Onychia and paronychia of toe 04/15/2005 Ingrowing nail 01/08/2005 10/02/2015 Pain in limb 01/08/2005 10/02/2015 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 documented as of this encounter (statuses as of 06/30/2022) [facility] History of Past illness Narrative* Problem Noted Date Resolved Date 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 10/02/2015 Abdominal pain, epigastric 10/13/200610/01 Abdominal pain, generalized 10/13/20060 05/2015 Abnormality of gait 06/22/2005 10/02/2015 Exostosis of unspecified site 05/31/2005 Onychia and paronychia of toe 04/15/2005 Ingrowing nail 01/08/2005 10/02/2015 Pain in limb 01/08/2005 10/02/2015 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 documented as of this encounter (statuses as of 07/01/2022) [facility] History of Past illness Narrative* Problem Noted Date Resolved Date 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 10/02/2015 Abdominal pain, epigastric 10/13/200610/01 Abdominal pain, generalized 10/13/20060 05/2015 Abnormality of gait 06/22/2005 10/02/2015 Exostosis of unspecified site 05/31/2005 Onychia and paronychia of toe 04/15/2005 Ingrowing nail 01/08/2005 10/02/2015 Pain in limb 01/08/2005 10/02/2015 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 documented as of this encounter (statuses as of 07/02/2022) [facility] History of Past illness Narrative* Problem Noted Date Resolved Date 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 10/02/2015 Abdominal pain, epigastric 10/13/200610/01 Abdominal pain, generalized 10/13/20060 05/2015 Abnormality of gait 06/22/2005 10/02/2015 Exostosis of unspecified site 05/31/2005 Onychia and paronychia of toe 04/15/2005 Ingrowing nail 01/08/2005 10/02/2015 Pain in limb 01/08/2005 10/02/2015 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 documented as of this encounter (statuses as of 07/03/2022) [facility] History of Past illness Narrative* Problem Noted Date Resolved Date 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 10/02/2015 Abdominal pain, epigastric 10/13/200610/01 Abdominal pain, generalized 10/13/20060 05/2015 Abnormality of gait 06/22/2005 10/02/2015 Exostosis of unspecified site 05/31/2005 Onychia and paronychia of toe 04/15/2005 Ingrowing nail 01/08/2005 10/02/2015 Pain in limb 01/08/2005 10/02/2015 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 documented as of this encounter (statuses as of 07/27/2022) [facility] History of Past illness Narrative* Problem Noted Date Resolved Date 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 10/02/2015 Abdominal pain, epigastric 10/13/200610/01 Abdominal pain, generalized 10/13/200605/2015 Abnormality of gait 06/22/2005 10/02/2015 Exostosis of unspecified site 05/31/2005 Onychia and paronychia of toe 04/15/2005 Ingrowing nail 01/08/2005 10/02/2015 Pain in limb 01/08/2005 10/02/2015 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 documented as of this encounter (statuses as of 08/18/2022) [facility] History of Past illness Narrative* Problem Noted Date Resolved Date 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 10/02/2015 Abdominal pain, epigastric 10/13/200610/01 Abdominal pain, generalized 10/13/200605/2015 Abnormality of gait 06/22/2005 10/02/2015 Exostosis of unspecified site 05/31/2005 Onychia and paronychia of toe 04/15/2005 Ingrowing nail 01/08/2005 10/02/2015 Pain in limb 01/08/2005 10/02/2015 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 documented as of this encounter (statuses as of 08/19/2022) [facility] History of Past illness Narrative* Problem Noted [...] of this encounter (statuses as of 09/03/2022) [facility] History of Past illness Narrative* Problem Noted [...] of this encounter (statuses as of 09/04/2022) [facility] History of Past illness Narrative* Problem Noted [...] of this encounter (statuses as of 09/14/2022) [facility] History of Past illness Narrative* Problem Noted [...] of this encounter (statuses as of 10/14/2022) [facility] History of Past illness Narrative* Problem Noted [...] of this encounter (statuses as of 10/21/2022) [facility] History of Past illness Narrative* Problem Noted [...] of this encounter (statuses as of 11/04/2022) [facility] History of Past illness Narrative* Problem Noted [...] of this encounter (statuses as of 12/04/2022) [facility] History of Past illness Narrative* Problem Noted [...] of this encounter (statuses as of 12/07/2022) [facility] History of Past illness Narrative* Problem Noted [...] of this encounter (statuses as of 12/09/2022) [facility] History of Past illness Narrative* Problem Noted [...] of this encounter (statuses as of 12/09/2022) [facility] History of Past illness Narrative* Problem Noted [...] of this encounter (statuses as of 12/15/2022) [facility] History of Past illness Narrative* Problem Noted [...] of this encounter (statuses as of 12/17/2022) [facility] History of Past illness Narrative* Problem Noted [...] of this encounter (statuses as of 12/28/2022) [facility] History of Past illness Narrative* Problem Noted [...] of this encounter (statuses as of 01/02/2023) [facility] History of Past illness Narrative* Problem Noted [...] of this encounter (statuses as of 01/02/2023) [facility] History of Past illness Narrative* Problem Noted [...] of this encounter (statuses as of 01/04/2023) [facility] History of Past illness Narrative* Problem Noted [...] of this encounter (statuses as of 04/06/2023) [facility] History of Past illness Narrative* Problem Noted [...] of this encounter (statuses as of 04/07/2023) [facility] History of Past illness Narrative* Problem Noted [...] of this encounter (statuses as of 04/12/2023) [facility] History of Past illness Narrative* Problem Noted [...] of this encounter (statuses as of 05/02/2023) [facility] History of Past illness Narrative* Problem Noted [...] of this encounter (statuses as of 05/03/2023) [facility] History of Past illness Narrative* Problem Noted [...] of this encounter (statuses as of 05/31/2023) [facility] History of Past illness Narrative* Problem Noted [...] of this encounter (statuses as of 06/01/2023) [facility] History of Past illness Narrative* Problem Noted [...] of this encounter (statuses as of 06/01/2023) [facility] note* Diagnosis URI, acute- Primary Acute upper respiratory infections of unspecified site Bilateral impacted cerumen Impacted cerumen documented in this encounter [facility] noteNo assessment information availableWWayne [facility] Work Phone: Evaluation note* Diagnosis COVID-19- Primary documented in this encounter [facility] note* Diagnosis Dysuria- Primary Urinary frequency Microscopic hematuria History of kidney stones Personal history of urinary calculi documented in this encounter [facility] note* Diagnosis Epigastric pain- Primary Abdominal pain, epigastric Left upper quadrant abdominal pain Medication monitoring encounter Encounter for therapeutic drug monitoring documented in this encounter [facility] note* Diagnosis Generalized abdominal pain- Primary Abdominal pain, generalized documented in this encounter [facility] note* Diagnosis Abdominal pain, unspecified abdominal location- Primary documented in this encounter [facility] note* Diagnosis Epigastric pain Abdominal pain, epigastric Left upper quadrant abdominal pain documented in this encounter [facility] note* Diagnosis Sore throat- Primary Acute pharyngitis documented in this encounter [facility] note* Diagnosis Acute otitis media, left- Primary Unspecified otitis media documented in this encounter [facility] note* Diagnosis Bronchitis- Primary Bronchitis, not specified as acute or chronic Mild intermittent asthma without complication Unspecified asthma documented in this encounter [facility] note* Diagnosis Bronchitis- Primary Bronchitis, not specified as acute or chronic documented in this encounter [facility] note* Diagnosis Pain of toe of right foot- Primary Pain in limb documented in this encounter [facility] note* Diagnosis Right ear pain- Primary Otalgia, unspecified Impacted cerumen of right ear Impacted cerumen documented in this encounter [facility] note* Diagnosis Pain of toe of right foot Pain in limb documented in this encounter [facility] note* Diagnosis Acute non-recurrent sinusitis, unspecified location- Primary Bilateral impacted cerumen Impacted cerumen documented in this encounter [facility] note* Diagnosis Pain of toe of right foot- Primary Pain in limb Repetitive stress injury Unspecified site of sprain and strain documented in this encounter [facility] note* Diagnosis Epigastric pain Abdominal pain, epigastric Left upper quadrant abdominal pain documented in this encounter [facility] note* Diagnosis Pain of toe of right foot Pain in limb documented in this encounter [facility] note* Diagnosis Pain of toe of right foot Pain in limb Repetitive stress injury Unspecified site of sprain and strain [facility] Diagnosis Pain of toe of right foot- Primary Pain in limb Right foot pain Pain in limb documented in this encounter [facility] note* Diagnosis Bronchitis- Primary Bronchitis, not specified as acute or chronic documented in this encounter [facility] note* Diagnosis Skin irritation- Primary Unspecified disorder of skin and subcutaneous tissue documented in this encounter [facility] note* Diagnosis Dermatitis- Primary Contact dermatitis and other eczema, due to unspecified cause [facility]* Diagnosis Schizoaffective disorder, bipolar type ([facility])- Primary Schizoaffective disorder, unspecified condition Abdominal pain, unspecified abdominal location Encounter for immunization Need for other specified prophylactic vaccination against single bacterial disease documented in this encounter [facility] note* Diagnosis Pharyngitis, unspecified etiology- Primary Acute bronchitis, unspecified organism documented in this encounter [facility] note* Diagnosis Acute maxillary sinusitis, recurrence not specified- Primary documented in this encounter [facility] note* Diagnosis Acute non-recurrent maxillary sinusitis- Primary Encounter for screening for human immunodeficiency virus (HIV) Special screening examination for other specified viral diseases Fatigue associated with AIDS ([facility]) Body mass index (BMI) 40.0-44.9, adult ([facility]) documented in this encounter [facility] note* Diagnosis Gastroesophageal reflux disease, unspecified whether esophagitis present documented in this encounter [facility] note* Diagnosis Skin irritation Unspecified disorder of skin and subcutaneous tissue documented in this encounter [facility] note* Diagnosis Acute cough- Primary URI, acute Acute upper respiratory infections of unspecified site Acute cough [facility]* Diagnosis Gastroesophageal reflux disease without esophagitis- Primary Esophageal reflux Left upper quadrant abdominal pain Attention deficit hyperactivity disorder (ADHD), other type Psychogenic nonepileptic seizure Asperger's syndrome Other specified pervasive developmental disorders, current or active state Mild intermittent asthma without complication Unspecified asthma Schizoaffective disorder, bipolar type ([facility]) Schizoaffective disorder, unspecified condition Lactose intolerance Intestinal disaccharidase deficiencies and disaccharide malabsorption [facility]* Diagnosis Sore throat- Primary Acute pharyngitis Diarrhea, unspecified type [facility]* Diagnosis Acute cough [facility] Diagnosis Chronic cough- Primary Cough LYNN (dyspnea on exertion) Other dyspnea and respiratory abnormality Mild intermittent asthma without complication Unspecified asthma documented in this encounter [facility] note* Diagnosis Bronchitis Bronchitis, not specified as acute or chronic [facility] Diagnosis Chronic cough Cough LYNN (dyspnea on exertion) Other dyspnea and respiratory abnormality documented in this encounter [facility] note* Diagnosis Chronic cough Cough LYNN (dyspnea on exertion) Other dyspnea and respiratory abnormality documented in this encounter [facility] note* Diagnosis Chronic cough- Primary Cough documented in this encounter [facility] note* Diagnosis Bronchitis Bronchitis, not specified as acute or chronic Mild intermittent asthma without complication Unspecified asthma documented in this encounter [facility] note* Diagnosis Epigastric pain Abdominal pain, epigastric Left upper quadrant abdominal pain documented in this encounter [facility] note* Diagnosis Abdominal pain, unspecified abdominal location documented in this encounter [facility] note* Diagnosis Left upper quadrant abdominal pain Lactose intolerance Intestinal disaccharidase deficiencies and disaccharide malabsorption documented in this encounter [facility] note* Diagnosis Neck pain Cervicalgia documented in this encounter [facility] note* Diagnosis Palpitations- Primary Anemia, unspecified type Hypokalemia Hypopotassemia Hyperglycemia Other abnormal glucose Need for vaccination Need for prophylactic vaccination and inoculation against unspecified single disease documented in this encounter [facility] note* Diagnosis Pharyngitis, unspecified etiology- Primary Acute cough URI, acute Acute upper respiratory infections of unspecified site Acute cough documented in this encounter [facility] note* Diagnosis Acute cough documented in this encounter [facility] note* Diagnosis Gastroesophageal reflux disease, unspecified whether esophagitis present documented in this encounter [facility] note* Diagnosis Gastroesophageal reflux disease, unspecified whether esophagitis present documented in this encounter [facility] note* Diagnosis Schizoaffective disorder, unspecified type (HCC)- Primary Attention deficit hyperactivity disorder (ADHD), unspecified ADHD type Asperger's syndrome Other specified pervasive developmental disorders, current or active state Mild intermittent asthma without complication Unspecified asthma Acute non-recurrent frontal sinusitis documented in this encounter [facility] note* Diagnosis Left upper quadrant abdominal pain Lactose intolerance Intestinal disaccharidase deficiencies and disaccharide malabsorption documented in this encounter [facility] note* Diagnosis Partial agenesis of corpus callosum [...] thoracic back pain documented in this encounter [facility] note* Diagnosis Seasonal allergies- Primary Allergic rhinitis, cause unspecified Nasal congestion Other diseases of nasal cavity and sinuses Sore throat Acute pharyngitis Acute upper respiratory infection, unspecified Schizoaffective disorder, bipolar type (HCC) Schizoaffective disorder, unspecified condition documented in this encounter [facility] note* Diagnosis Onychomycosis- Primary Dermatophytosis of nail Pain in toe of right foot Pain in limb documented in this encounter [facility] note* Diagnosis Sore throat- Primary [facility] X-rays look good. Ice to the foot. Motrin for pain and swelling. Tylenol for pain. This should progressively get better. If not follow-up.[facility] Work Phone: [facility] (narrative)* Diagnostic Procedure Only (Routine) - Closed Specialty Diagnoses / Procedures Referred By Contac t Referred To Contact XR IMAGING Diagnoses Epigastric pain Left upper quadrant abdominal pain Procedures XR ABDOMEN 1V SUPINE RADIOLOGIC EXAM ABDOMEN 1 VIEW Turner Bundy MD [address] [place] [address] Xr Imaging Referral ID Status Reason Start Date Expiration Date V isits Requested Visits Authorized [id number] Closed Auto-Generate d Referral 06/29/2022 07/29/2023 1 1 [facility] for referral (narrative)* Diagnostic Procedure Only (Urgent) - Closed Specialty Diagnoses / Procedures Referred By Contac t Referred To Contact XR IMAGING Diagnoses Abdominal pain, unspecified abdominal location Procedures XR ABDOMEN 1V SUPINE RADIOLOGIC EXAM ABDOMEN 1 VIEW Turner Bundy MD [address] [place] [address] Xr Imaging Referral ID Status Reason Start Date Expiration Date V isits Requested Visits Authorized [id number] Closed Auto-Generate d Referral 07/01/2022 07/31/2023 1 1 [facility] for referral (narrative)* Diagnostic Procedure Only (Routine) - Closed Specialty Diagnoses / Procedures Referred By Contac t Referred To Contact XR IMAGING Diagnoses Pain of toe of right foot Procedures XR FOOT GENERAL 3V AP/LAT/OBL RIGHT RADEX FOOT COMPLETE MINIMUM 3 VIEWS Fern Solares [address] [place] [address] [place] [address] Referral ID Status Reason Start Date Expiration Date V isits Requested Visits Authorized [id number] Closed Auto-Generate d Referral 11/03/2022 12/03/2023 1 1 * Diagnostic Procedure Only (Routine) - Closed Specialty Diagnoses / Procedures Referred By Contac t Referred To Contact XR IMAGING Diagnoses Pain of toe of right foot Procedures XR TOE AP/LAT/OBL RIGHT RADEX TOE MINIMUM 2 VIEWS Fern Solares [address] [place] [address] [place] [address] Referral ID Status Reason Start Date Expiration Date V isits Requested Visits Authorized [id number] Closed Auto-Generate d Referral 11/03/2022 12/03/2023 1 1 [facility] for referral (narrative)* Diagnostic Procedure Only (Routine) - Closed Specialty Diagnoses / Procedures Referred By Contac t Referred To Contact XR IMAGING Diagnoses Pain of toe of right foot Procedures XR ANKLE GENERAL 3V AP/LAT/OBL RIGHT RADEX ANKLE COMPLETE MINIMUM 3 VIEWS Fern Solares[address] [place] [address] [place] [address] Referral ID Status Reason Start Date Expiration Date V isits Requested Visits Authorized [id number] Closed Auto-Generate d Referral 12/17/2022 01/16/2024 1 1 * Diagnostic Procedure Only (Routine) - Closed Specialty Diagnoses / Procedures Referred By Contac t Referred To Contact XR IMAGING Diagnoses Pain of toe of right foot Repetitive stress injury Procedures XR FOOT GENERAL 3V AP/LAT/OBL RIGHT RADEX FOOT COMPLETE MINIMUM 3 VIEWS Fern Solares [address] [place] [address] [place] [address] Referral ID Status Reason Start Date Expiration Date V isits Requested Visits Authorized [id number] Closed Auto-Generate d Referral 12/17/2022 01/16/2024 1 1 [facility] for referral (narrative)* Diagnostic Procedure Only (Routine) - Closed Specialty Diagnoses / Procedures Referred By Contac t Referred To Contact XR IMAGING Diagnoses Pain of toe of right foot Procedures XR FOOT GENERAL 3V AP/LAT/OBL RIGHT RADEX FOOT COMPLETE MINIMUM 3 VIEWS Fern Solares[address] [place] [address] [place] [address] Referral ID Status Reason Start Date Expiration Date V isits Requested Visits Authorized [id number] Closed Auto-Generate d Referral 11/03/2022 12/03/2023 1 1 * Diagnostic Procedure Only (Routine) - Closed Specialty Diagnoses / Procedures Referred By Contac t Referred To Contact XR IMAGING Diagnoses Pain of toe of right foot Procedures XR TOE AP/LAT/OBL RIGHT RADEX TOE MINIMUM 2 VIEWS Fern [address] [address] [place] [address] Referral ID Status Reason Start Date Expiration Date V isits Requested Visits Authorized [id number] Closed Auto-Generate d Referral 11/03/2022 12/03/2023 1 1 [facility] for referral (narrative)* Diagnostic Procedure Only (Routine) - Closed Specialty Diagnoses / Procedures Referred By Contac t Referred To Contact XR IMAGING Diagnoses Pain of toe of right foot Procedures XR ANKLE GENERAL 3V AP/LAT/OBL RIGHT RADEX ANKLE COMPLETE MINIMUM 3 VIEWS Fern [address] [place] [address] [place] [address] Referral ID Status Reason Start Date Expiration Date V isits Requested Visits Authorized [id number] Closed Auto-Generate d Referral 12/17/2022 01/16/2024 1 1 * Diagnostic Procedure Only (Routine) - Closed Specialty Diagnoses / Procedures Referred By Contac t Referred To Contact XR IMAGING Diagnoses Pain of toe of right foot Repetitive stress injury Procedures XR FOOT GENERAL 3V AP/LAT/OBL RIGHT RADEX FOOT COMPLETE MINIMUM 3 VIEWS Sujatha Fern [address] [place] [address] [place] [address] Referral ID Status Reason Start Date Expiration Date V isits Requested Visits Authorized [id number] Closed Auto-Generate d Referral 12/17/2022 01/16/2024 1 1 [facility] for referral (narrative)* Outpatient Procedure (Routine) - Authorized Specialty Diagnoses / Procedures Referred By Contac t Referred To Contact [facility] Diagnoses Chronic cough LYNN (dyspnea on exertion) Procedures SPIROMETRY - BASELINE AND POST DILATOR BRNCDILAT RSPSE SPMTRY PRE&POST-BRNCDILAT ADMN Pamela Nieves APRN.[facility] [address] [place] [address] [facility] [address] [place] [address] Referral ID Status Reason Start Date Expiration Date Visits Requested Visits Authorized [id number] Authorized Auto-Generat ed Referral 11/10/2023 12/09/2024 1 1 * Outpatient Procedure (Routine) - Authorized Specialty Diagnoses / Procedures Referred By Contac t Referred To Contact [facility] Diagnoses Chronic cough LYNN (dyspnea on exertion) Procedures LUNG VOLUMES Pamela Nieves APRN.CNP [address] [place] [address] [facility] [address] [place] [address] Referral ID Status Reason Start Date Expiration Date Visits Requested Visits Authorized [id number] Authorized Auto-Generat ed Referral 11/10/2023 12/09/2024 1 1 [facility] for referral (narrative)* Diagnostic Procedure Only (Routine) - Closed Specialty Diagnoses / Procedures Referred By Contac t Referred To Contact XR IMAGING Diagnoses Epigastric pain Left upper quadrant abdominal pain Procedures XR ABDOMEN 1V SUPINE RADIOLOGIC EXAM ABDOMEN 1 VIEW Turner Bundy MD [address] [place] [address] [place] [address] Referral ID Status Reason Start Date Expiration Date V isits Requested Visits Authorized [id number] Closed Auto-Generate d Referral 06/29/2022 07/29/2023 1 1 [facility] for referral (narrative)* Diagnostic Procedure Only (Urgent) - Closed Specialty Diagnoses / Procedures Referred By Contac t Referred To Contact XR IMAGING Diagnoses Abdominal pain, unspecified abdominal location Procedures XR ABDOMEN 1V SUPINE RADIOLOGIC EXAM ABDOMEN 1 VIEW Turner Bundy MD [address] [place] [address] [place] [address] Referral ID Status Reason Start Date Expiration Date V isits Requested Visits Authorized [id number] Closed Auto-Generate d Referral 07/01/2022 07/31/2023 1 1 [facility] for referral (narrative)No reason for referral information availableWW[facility] Phone: Reason for visit Narrative* Diagnostic Procedure Only (Routine) - Closed Specialty Diagnoses / Procedures Referred By Contac t Referred To Contact XR IMAGING Diagnoses Pain of toe of right foot Procedures XR FOOT GENERAL 3V AP/LAT/OBL RIGHT RADEX FOOT COMPLETE MINIMUM 3 VIEWS Fern Solares [address] [place] [address] [place] [address] Referral ID Status Reason Start Date Expiration Date V isits Requested Visits Authorized [id number] Closed Auto-Generate d Referral 11/03/2022 12/03/2023 1 1 [facility] for visit Narrative* Diagnostic Procedure Only (Routine) - Closed Specialty Diagnoses / Procedures Referred By Contac t Referred To Contact XR IMAGING Diagnoses Pain of toe of right foot Procedures XR ANKLE GENERAL 3V AP/LAT/OBL RIGHT RADEX ANKLE COMPLETE MINIMUM 3 VIEWS Anayeliglenis Fern [address] [place] [address] [place] [address] Referral ID Status Reason Start Date Expiration Date V isits Requested Visits Authorized [id number] Closed Auto-Generate d Referral 12/17/2022 01/16/2024 1 1 [facility] for visit Narrative* Diagnostic Procedure Only (Routine) - Closed Specialty Diagnoses / Procedures Referred By Contac t Referred To Contact XR IMAGING Diagnoses Epigastric pain Left upper quadrant abdominal pain Procedures XR ABDOMEN 1V SUPINE RADIOLOGIC EXAM ABDOMEN 1 VIEW Turner Bundy MD [address] [place] [address] [place] [address] Referral ID Status Reason Start Date Expiration Date V isits Requested Visits Authorized [id number] Closed Auto-Generate d Referral 06/29/2022 07/29/2023 1 1 [facility] for visit Narrative* Diagnostic Procedure Only (Urgent) - Closed Specialty Diagnoses / Procedures Referred By Contac t Referred To Contact XR IMAGING Diagnoses Abdominal pain, unspecified abdominal location Procedures XR ABDOMEN 1V SUPINE RADIOLOGIC EXAM ABDOMEN 1 VIEW Turner Bundy MD [address] [place] [address] [place] [address] Referral ID Status Reason Start Date Expiration Date V isits Requested Visits Authorized [id number] Closed Auto-Generate d Referral 07/01/2022 07/31/2023 1 1 [facility] Summary Purpose Family History No Family History Records Found Relationship Condition Age at Onset Recorded Date/T marie Not Specified Diabetes mellitus Unknown Kidney disorder Unknown Hypertension Unknown Asthma Unknown Advance Directives No Advanced Directives Records FoundDocuments on File Type Date 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 Advance Directive(s) 01/26/2021 12:27 PM Advance Directive(s) 01/13/2021 8:30 AM Advance Directive Response Recorded Date/ Time Advance Directives No December 5:00pm Living Will No August 17, 2021 10:36pm Power of Audio Visual Aide No August 17 10:36pm Advance Directive Response Recorded Date/ Time Advance Directives No December 5:00pm Living Will No September 02, 2021 3 :51pm Power of Audio Visual Aide No September 02, 2021 3:51pm Advance Directive Response Recorded Date/ Time Advance Directives No December 4:00pm Living Will No April 22, 2 023 5:20pm Power of Audio Visual Aide No April 22, 2022 5:20pm Advance Directive Response Recorded Date/ Time Advance Directives No December 5:00pm Living Will No June 02, 2022 6:15pm Power of Audio Visual Aide No June 02 6:15pm Advance Directive Response Recorded Date/ Time Advance Directives No December 5:00pm Living Will No October 11 3 9:08pm Power of Audio Visual Aide No October 11, 2 023 9:08pm Advance Directive Response Recorded Date/ Time Advance Directives No December 4:00pm Living Will No March 10 11:19am Power of Audio Visual Aide No March 10, 2023 11:19am Advance Directive Response Recorded Date/ Time Advance Directives No December 4:00pm Living Will No April 17, 2 024 3:41pm Power of Audio Visual Aide No April 17, 2023 3:41pm Advance Directive Response Recorded Date/ Time Do you have a Healthcare Power of Audio Visual Aide? No October 22, 2024 7:01pm Advance Directives No December 5:00pm Chief Complaint and Reason for Visit Chief Complaint ABD PAIN Chief Complaint ABD PAIN SUICIDAL Chief Complaint SI Chief Complaint SI SI Chief Complaint toe pain Chief Complaint n/v Chief Complaint n/v suicidal ideation Chief Complaint Admit Date SI October 22, 2024 6: 02pm Reason for Referral Specialty Diagnoses / Procedures Referred By Ellyn t Referred To Contact Urology Diagnoses Urinary frequency History of kidney stones Microscopic hematuria Procedures CONSULT TO UROLOGY OFFICE/[facility]PATIENT [facility] [place] 60-74 MINUTES Jatin Herrera MD [address] [place] [address] Referral ID Status Reason Start Date Expiration Date Visits Requested Visits Authorized [id number] Authorized PCP Requested Referral 03/24/2022 03/24/2023 1 1 Specialty Diagnoses / Procedures Referred By Ellyn connors Referred To Contact Podiatry Diagnoses Pain of toe of right foot Procedures CONSULT TO PODIATRY OFFICE/OUTPATIENT [facility] [place] 60-74 MINUTES Turner Bundy MD [address] [place] [address] Referral ID Status Reason Start Date Expiration Date Visits Requested Visits Authorized [id number] Authorized PCP Requested Referral 10/13/2022 10/13/2023 1 [...] section and content) DATE CREATED AUTHOR 01/22/2018 [facility] DATE CREATED AUTHOR AUTHOR'S ORGANIZ ATION 06/21/2018 [facility] DATE CREATED AUTHOR AUTHOR'S ORGANIZ ATION 02/22/2019 [facility] DATE CREATED AUTHOR AUTHOR'S ORGANIZ ATION 07/12/2019 [facility] DATE CREATED AUTHOR AUTHOR'S ORGANIZ ATION 01/29/2021 [facility] DATE CREATED AUTHOR AUTHOR'S ORGANIZ ATION 05/18/2022 [facility] DATE CREATED AUTHOR AUTHOR'S ORGANIZ ATION 06/12/2022 [facility] DATE CREATED AUTHOR AUTHOR'S ORGANIZ ATION 12/23/2023 [facility] DATE CREATED AUTHOR AUTHOR'S ORGANIZ ATION 01/20/2024 [facility] DATE CREATED AUTHOR AUTHOR'S ORGANIZ ATION 09/16/2024 [facility] DATE CREATED AUTHOR AUTHOR'S ORGANIZ ATION 10/28/2024 [facility] DATE CREATED AUTHOR AUTHOR'S ORGANIZ ATION 11/01/2024 [facility] Source Comments (unrecognize d section and content) In the event this informatio n is protected by the Federal Confidentiality of Alcohol and Drug Abuse Patient Records regulations: The Federal rules restrict any use of the information to criminally investigate or prosecute any alcohol or drug abuse patient.[facility] the event this information is protected by the Federal Confidentiality of Alcohol and Drug Abuse Patient Records regulations: The Federal rules restrict any use of the information to criminally investigate or prosecute any alcohol or drug abuse patient.[facility] CenterIn the event this information is protected by the Federal Confidentiality of Alcohol and Drug Abuse Patient Records regulations: The Federal rules restrict any use of the information to criminally investigate or prosecute any alcohol or drug abuse patient.[facility] CenterIn the event this information is protected by the Federal Confidentiality of Alcohol and Drug Abuse Patient Records regulations: The Federal rules restrict any use of the information to criminally investigate or prosecute any alcohol or drug abuse patient.[facility] CenterIn the event this information is protected by the Federal Confidentiality of Alcohol and Drug Abuse Patient Records regulations: The Federal rules restrict any use of the information to criminally investigate or prosecute any alcohol or drug abuse patient.[facility] CenterIn the event this information is protected by the Federal Confidentiality of Alcohol and Drug Abuse Patient Records regulations: The Federal rules restrict any use of the information to criminally investigate or prosecute any alcohol or drug abuse patient.[facility] CenterIn the event this information is protected by the Federal Confidentiality of Alcohol and Drug Abuse Patient Records regulations: The Federal rules restrict any use of the information to criminally investigate or prosecute any alcohol or drug abuse patient.[facility] CenterIn the event this information is protected by the Federal Confidentiality of Alcohol and Drug Abuse Patient Records regulations: The Federal rules restrict any use of the information to criminally investigate or prosecute any alcohol or drug abuse patient.[facility] CenterIn the event this information is protected by the Federal Confidentiality of Alcohol and Drug Abuse Patient Records regulations: The Federal rules restrict any use of the information to criminally investigate or prosecute any alcohol or drug abuse patient.[facility] CenterIn the event this information is protected by the Federal Confidentiality of Alcohol and Drug Abuse Patient Records regulations: The Federal rules restrict any use of the information to criminally investigate or prosecute any alcohol or drug abuse patient.[facility] CenterIn the event this information is protected by the Federal Confidentiality of Alcohol and Drug Abuse Patient Records regulations: The Federal rules restrict any use of the information to criminally investigate or prosecute any alcohol or drug abuse patient.[facility] CenterIn the event this information is protected by the Federal Confidentiality of Alcohol and Drug Abuse Patient Records regulations: The Federal rules restrict any use of the information to criminally investigate or prosecute any alcohol or drug abuse patient.[facility] CenterIn the event this information is protected by the Federal Confidentiality of Alcohol and Drug Abuse Patient Records regulations: The Federal rules restrict any use of the information to criminally investigate or prosecute any alcohol or drug abuse patient.[facility] CenterIn the event this information is protected by the Federal Confidentiality of Alcohol and Drug Abuse Patient Records regulations: The Federal rules restrict any use of the information to criminally investigate or prosecute any alcohol or drug abuse patient.[facility] CenterIn the event this information is protected by the Federal Confidentiality of Alcohol and Drug Abuse Patient Records regulations: The Federal rules restrict any use of the information to criminally investigate or prosecute any alcohol or drug abuse patient.[facility] CenterIn the event this information is protected by the Federal Confidentiality of Alcohol and Drug Abuse Patient Records regulations: The Federal rules restrict any use of the information to criminally investigate or prosecute any alcohol or drug abuse patient.[facility] CenterIn the event this information is protected by the Federal Confidentiality of Alcohol and Drug Abuse Patient Records regulations: The Federal rules restrict any use of the information to criminally investigate or prosecute any alcohol or drug abuse patient.[facility] CenterIn the event this information is protected by the Federal Confidentiality of Alcohol and Drug Abuse Patient Records regulations: The Federal rules restrict any use of the information to criminally investigate or prosecute any alcohol or drug abuse patient.[facility] CenterIn the event this information is protected by the Federal Confidentiality of Alcohol and Drug Abuse Patient Records regulations: The Federal rules restrict any use of the information to criminally investigate or prosecute any alcohol or drug abuse patient.[facility] CenterIn the event this information is protected by the Federal Confidentiality of Alcohol and Drug Abuse Patient Records regulations: The Federal rules restrict any use of the information to criminally investigate or prosecute any alcohol or drug abuse patient.[facility] CenterIn the event this information is protected by the Federal Confidentiality of Alcohol and Drug Abuse Patient Records regulations: The Federal rules restrict any use of the information to criminally investigate or prosecute any alcohol or drug abuse patient.[facility] CenterIn the event this information is protected by the Federal Confidentiality of Alcohol and Drug Abuse Patient Records regulations: The Federal rules restrict any use of the information to criminally investigate or prosecute any alcohol or drug abuse patient.[facility] CenterIn the event this information is protected by the Federal Confidentiality of Alcohol and Drug Abuse Patient Records regulations: The Federal rules restrict any use of the information to criminally investigate or prosecute any alcohol or drug abuse patient.[facility] CenterIn the event this information is protected by the Federal Confidentiality of Alcohol and Drug Abuse Patient Records regulations: The Federal rules restrict any use of the information to criminally investigate or prosecute any alcohol or drug abuse patient.[facility] CenterIn the event this information is protected by the Federal Confidentiality of Alcohol and Drug Abuse Patient Records regulations: The Federal rules restrict any use of the information to criminally investigate or prosecute any alcohol or drug abuse patient.[facility] CenterIn the event this information is protected by the Federal Confidentiality of Alcohol and Drug Abuse Patient Records regulations: The Federal rules restrict any use of the information to criminally investigate or prosecute any alcohol or drug abuse patient.[facility] CenterIn the event this information is protected by the Federal Confidentiality of Alcohol and Drug Abuse Patient Records regulations: The Federal rules restrict any use of the information to criminally investigate or prosecute any alcohol or drug abuse patient.[facility] CenterIn the event this information is protected by the Federal Confidentiality of Alcohol and Drug Abuse Patient Records regulations: The Federal rules restrict any use of the information to criminally investigate or prosecute any alcohol or drug abuse patient.[facility] CenterIn the event this information is protected by the Federal Confidentiality of Alcohol and Drug Abuse Patient Records regulations: The Federal rules restrict any use of the information to criminally investigate or prosecute any alcohol or drug abuse patient.[facility] CenterIn the event this information is protected by the Federal Confidentiality of Alcohol and Drug Abuse Patient Records regulations: The Federal rules restrict any use of the information to criminally investigate or prosecute any alcohol or drug abuse patient.[facility] CenterIn the event this information is protected by the Federal Confidentiality of Alcohol and Drug Abuse Patient Records regulations: The Federal rules restrict any use of the information to criminally investigate or prosecute any alcohol or drug abuse patient.[facility] CenterIn the event this information is protected by the Federal Confidentiality of Alcohol and Drug Abuse Patient Records regulations: The Federal rules restrict any use of the information to criminally investigate or prosecute any alcohol or drug abuse patient.[facility] CenterIn the event this information is protected by the Federal Confidentiality of Alcohol and Drug Abuse Patient Records regulations: The Federal rules restrict any use of the information to criminally investigate or prosecute any alcohol or drug abuse patient.[facility] CenterIn the event this information is protected by the Federal Confidentiality of Alcohol and Drug Abuse Patient Records regulations: The Federal rules restrict any use of the information to criminally investigate or prosecute any alcohol or drug abuse patient.[facility] CenterIn the event this information is protected by the Federal Confidentiality of Alcohol and Drug Abuse Patient Records regulations: The Federal rules restrict any use of the information to criminally investigate or prosecute any alcohol or drug abuse patient.[facility] CenterIn the event this information is protected by the Federal Confidentiality of Alcohol and Drug Abuse Patient Records regulations: The Federal rules restrict any use of the information to criminally investigate or prosecute any alcohol or drug abuse patient.[facility] CenterIn the event this information is protected by the Federal Confidentiality of Alcohol and Drug Abuse Patient Records regulations: The Federal rules restrict any use of the information to criminally investigate or prosecute any alcohol or drug abuse patient.[facility] CenterIn the event this information is protected by the Federal Confidentiality of Alcohol and Drug Abuse Patient Records regulations: The Federal rules restrict any use of the information to criminally investigate or prosecute any alcohol or drug abuse patient.[facility] CenterIn the event this information is protected by the Federal Confidentiality of Alcohol and Drug Abuse Patient Records regulations: The Federal rules restrict any use of the information to criminally investigate or prosecute any alcohol or drug abuse patient.[facility] CenterIn the event this information is protected by the Federal Confidentiality of Alcohol and Drug Abuse Patient Records regulations: The Federal rules restrict any use of the information to criminally investigate or prosecute any alcohol or drug abuse patient.[facility] CenterIn the event this information is protected by the Federal Confidentiality of Alcohol and Drug Abuse Patient Records regulations: The Federal rules restrict any use of the information to criminally investigate or prosecute any alcohol or drug abuse patient.[facility] CenterIn the event this information is protected by the Federal Confidentiality of Alcohol and Drug Abuse Patient Records regulations: The Federal rules restrict any use of the information to criminally investigate or prosecute any alcohol or drug abuse patient.[facility] CenterIn the event this information is protected by the Federal Confidentiality of Alcohol and Drug Abuse Patient Records regulations: The Federal rules restrict any use of the information to criminally investigate or prosecute any alcohol or drug abuse patient.[facility] CenterIn the event this information is protected by the Federal Confidentiality of Alcohol and Drug Abuse Patient Records regulations: The Federal rules restrict any use of the information to criminally investigate or prosecute any alcohol or drug abuse patient.[facility] CenterIn the event this information is protected by the Federal Confidentiality of Alcohol and Drug Abuse Patient Records regulations: The Federal rules restrict any use of the information to criminally investigate or prosecute any alcohol or drug abuse patient.[facility] CenterIn the event this information is protected by the Federal Confidentiality of Alcohol and Drug Abuse Patient Records regulations: The Federal rules restrict any use of the information to criminally investigate or prosecute any alcohol or drug abuse patient.[facility] CenterIn the event this information is protected by the Federal Confidentiality of Alcohol and Drug Abuse Patient Records regulations: The Federal rules restrict any use of the information to criminally investigate or prosecute any alcohol or drug abuse patient.[facility] CenterIn the event this information is protected by the Federal Confidentiality of Alcohol and Drug Abuse Patient Records regulations: The Federal rules restrict any use of the information to criminally investigate or prosecute any alcohol or drug abuse patient.[facility] CenterIn the event this information is protected by the Federal Confidentiality of Alcohol and Drug Abuse Patient Records regulations: The Federal rules restrict any use of the information to criminally investigate or prosecute any alcohol or drug abuse patient.[facility] CenterIn the event this information is protected by the Federal Confidentiality of Alcohol and Drug Abuse Patient Records regulations: The Federal rules restrict any use of the information to criminally investigate or prosecute any alcohol or drug abuse patient.[facility] CenterIn the event this information is protected by the Federal Confidentiality of Alcohol and Drug Abuse Patient Records regulations: The Federal rules restrict any use of the information to criminally investigate or prosecute any alcohol or drug abuse patient.[facility] CenterIn the event this information is protected by the Federal Confidentiality of Alcohol and Drug Abuse Patient Records regulations: The Federal rules restrict any use of the information to criminally investigate or prosecute any alcohol or drug abuse patient.[facility] CenterIn the event this information is protected by the Federal Confidentiality of Alcohol and Drug Abuse Patient Records regulations: The Federal rules restrict any use of the information to criminally investigate or prosecute any alcohol or drug abuse patient.[facility] CenterIn the event this information is protected by the Federal Confidentiality of Alcohol and Drug Abuse Patient Records regulations: The Federal rules restrict any use of the information to criminally investigate or prosecute any alcohol or drug abuse patient.[facility] CenterIn the event this information is protected by the Federal Confidentiality of Alcohol and Drug Abuse Patient Records regulations: The Federal rules restrict any use of the information to criminally investigate or prosecute any alcohol or drug abuse patient.[facility] CenterIn the event this information is protected by the Federal Confidentiality of Alcohol and Drug Abuse Patient Records regulations: The Federal rules restrict any use of the information to criminally investigate or prosecute any alcohol or drug abuse patient.[facility] CenterIn the event this information is protected by the Federal Confidentiality of Alcohol and Drug Abuse Patient Records regulations: The Federal rules restrict any use of the information to criminally investigate or prosecute any alcohol or drug abuse patient.[facility] CenterIn the event this information is protected by the Federal Confidentiality of Alcohol and Drug Abuse Patient Records regulations: The Federal rules restrict any use of the information to criminally investigate or prosecute any alcohol or drug abuse patient.[facility] CenterIn the event this information is protected by the Federal Confidentiality of Alcohol and Drug Abuse Patient Records regulations: The Federal rules restrict any use of the information to criminally investigate or prosecute any alcohol or drug abuse patient.[facility] CenterIn the event this information is protected by the Federal Confidentiality of Alcohol and Drug Abuse Patient Records regulations: The Federal rules restrict any use of the information to criminally investigate or prosecute any alcohol or drug abuse patient.[facility] CenterIn the event this information is protected by the Federal Confidentiality of Alcohol and Drug Abuse Patient Records regulations: The Federal rules restrict any use of the information to criminally investigate or prosecute any alcohol or drug abuse patient.[facility] CenterIn the event this information is protected by the Federal Confidentiality of Alcohol and Drug Abuse Patient Records regulations: The Federal rules restrict any use of the information to criminally investigate or prosecute any alcohol or drug abuse patient.[facility] CenterIn the event this information is protected by the Federal Confidentiality of Alcohol and Drug Abuse Patient Records regulations: The Federal rules restrict any use of the information to criminally investigate or prosecute any alcohol or drug abuse patient.[facility] CenterIn the event this information is protected by the Federal Confidentiality of Alcohol and Drug Abuse Patient Records regulations: The Federal rules restrict any use of the information to criminally investigate or prosecute any alcohol or drug abuse patient.[facility] CenterIn the event this information is protected by the Federal Confidentiality of Alcohol and Drug Abuse Patient Records regulations: The Federal rules restrict any use of the information to criminally investigate or prosecute any alcohol or drug abuse patient.[facility] CenterIn the event this information is protected by the Federal Confidentiality of Alcohol and Drug Abuse Patient Records regulations: The Federal rules restrict any use of the information to criminally investigate or prosecute any alcohol or drug abuse patient.[facility] CenterIn the event this information is protected by the Federal Confidentiality of Alcohol and Drug Abuse Patient Records regulations: The Federal rules restrict any use of the information to criminally investigate or prosecute any alcohol or drug abuse patient.[facility] CenterIn the event this information is protected by the Federal Confidentiality of Alcohol and Drug Abuse Patient Records regulations: The Federal rules restrict any use of the information to criminally investigate or prosecute any alcohol or drug abuse patient.[facility] CenterIn the event this information is protected by the Federal Confidentiality of Alcohol and Drug Abuse Patient Records regulations: The Federal rules restrict any use of the information to criminally investigate or prosecute any alcohol or drug abuse patient.[facility] CenterIn the event this information is protected by the Federal Confidentiality of Alcohol and Drug Abuse Patient Records regulations: The Federal rules restrict any use of the information to criminally investigate or prosecute any alcohol or drug abuse patient.[facility] CenterIn the event this information is protected by the Federal Confidentiality of Alcohol and Drug Abuse Patient Records regulations: The Federal rules restrict any use of the information to criminally investigate or prosecute any alcohol or drug abuse patient.[facility] CenterIn the event this information is protected by the Federal Confidentiality of Alcohol and Drug Abuse Patient Records regulations: The Federal rules restrict any use of the information to criminally investigate or prosecute any alcohol or drug abuse patient.[facility] CenterIn the event this information is protected by the Federal Confidentiality of Alcohol and Drug Abuse Patient Records regulations: The Federal rules restrict any use of the information to criminally investigate or prosecute any alcohol or drug abuse patient.[facility] CenterIn the event this information is protected by the Federal Confidentiality of Alcohol and Drug Abuse Patient Records regulations: The Federal rules restrict any use of the information to criminally investigate or prosecute any alcohol or drug abuse patient.[facility] CenterIn the event this information is protected by the Federal Confidentiality of Alcohol and Drug Abuse Patient Records regulations: The Federal rules restrict any use of the information to criminally investigate or prosecute any alcohol or drug abuse patient.[facility] CenterIn the event this information is protected by the Federal Confidentiality of Alcohol and Drug Abuse Patient Records regulations: The Federal rules restrict any use of the information to criminally investigate or prosecute any alcohol or drug abuse patient.[facility] Reason for Visit (unrecogniz ed section and [...] right foot Procedures CONSULT TO PODIATRY OFFICE/OUTPATIENT [facility] MDM 60-74 MINUTES Turner Bundy MD [address] [place] [address] Referral ID Status Reason Start Date Expiration Date V isits Requested Visits Authorized [id number] Closed PCP Requested Referral 10/13/2022 10/13/2023 1 [...] Spirometry Specialty Diagnoses / Procedures Referred By Ellyn t Referred To [facility] Diagnoses Chronic cough LYNN (dyspnea on exertion) Procedures LUNG VOLUMES aPmela Nieves APRN.[facility] [address] [place] [address] [facility] [place] [address] [place] [address] Referral ID Status Reason Start Date Expiration Date V isits Requested Visits Authorized [id number] Closed Auto-Generate d Referral 11/10/2023 12/09/2024 1 1 Specialty Diagnoses / Procedures Referred By Contac t Referred To [facility] Diagnoses Chronic cough LYNN (dyspnea on exertion) Procedures SPIROMETRY - BASELINE AND POST DILATOR BRNCDILAT RSPSE SPMTRY PRE&POST-BRNCDILAT Pamela Escobedo APRN.[facility] [address] [place] [address] [facility] [place] [address] [place] [address] Referral ID Status Reason Start Date Expiration Date V isits Requested Visits Authorized [id number] Closed Auto-Generate d Referral 11/10/2023 12/09/2024 1 1 Reason Onset Date Comments Refill Request 11/25/2023 Reason Comments [facility] ER f/u 11-27-23 Reason Comments ER F/U [...] Care Teams (unrecognized sec tion and content) Tax Collector Relationship Specialty Start Date End Date Turner Bundy MD [address] [place], [place] [id number] PCP - General Family Practice 12/07/13 Tax Collector Relationship Specialty Start Date End Date Turner Bundy MD [address] [place], [place] [id number] PCP - General Family Medicine 12/07/13 Tax Collector Relationship Specialty Start Date End Date Turner Bundy MD [address] [place], [place] [id number] PCP - General Family Medicine 12/07/13 Tax Collector Relationship Specialty Start Date End Date uTrner Bundy MD [address] [place] [phone] PCP - General Family Medicine 12/07/13 Team Status: Active Member Role Status Dates Dr. Turner Bundy MD Family Provider Active Dr. Turner Bundy MD Primary Care Provider Active Team Status: Inactive Member Role Status Dates Dr. Turner Bundy MD Primary Care Provider Active Dr. Marni Mondragon , DO Emergency Provider Active Team Status: Inactive Member Role Status Dates Dr. Turner Bundy MD Primary Care Provider Active Dr. Marni Mondragon , DO Attending Provider, Emergency Pro vider Active Team Status: Inactive Member Role Status Dates Dr. Turner Bundy MD Primary Care Provider Active Dr. Alex Membreno , DO Emergency Provider Active Tax Collector Relationship Specialty Start Date End Date Turner Bundy MD [address] [place] [address] PCP - General Family Medicine 12/07/13 Tax Collector Relationship Specialty Start Date End Date Turner Bundy MD [address] [place] [address] PCP - General Family Medicine 12/07/13 Tax Collector Relationship Specialty Start Date End Date Turner Bundy MD [address] [place] [address] PCP - General Family Medicine 12/07/13 Tax Collector Relationship Specialty Start Date End Date Turner Bundy MD [address] [place] [address] PCP - General Family Medicine 12/07/13 Tax Collector Relationship Specialty Start Date End Date Turner Bundy MD [address] [place] [address] PCP - General Family Medicine 12/07/13 Tax Collector Relationship Specialty Start Date End Date Turner Bundy MD [address] [place] [address] PCP - General Family Medicine 12/07/13 Tax Collector Relationship Specialty Start Date End Date Turner Bundy MD [address] [place] [address] PCP - General Family Medicine 12/07/13 Team Status: Inactive Member Role Status Dates Dr. Turner Bundy MD Primary Care Provider Active Dr. Vazquez Miller MD Emergency Provider Active Tax Collector Relationship Specialty Start Date End Date Turner Bundy MD [address] [place] [address] PCP - General Family Medicine 12/07/13 Tax Collector Relationship Specialty Start Date End Date Turner Bundy MD [address] [place] [address] PCP - General Family Medicine 12/07/13 Tax Collector Relationship Specialty Start Date End Date Turner Bundy MD [address] [place] [address] PCP - General Family Medicine 12/07/13 Team Status: Inactive Member Role Status Dates Dr. Turner Bundy MD Primary Care Provider Active Dr. Vazquez Miller MD Attending Provider, Emergency Pro vider Active Team Status: Inactive Member Role Status Dates Dr. Turner Bundy MD Primary Care Provider Active Dee Craig IT ACCOUNT MANAGER, IT ACCOUNT MANAGER-C Attending Provider, Referring Provider Active Tax Collector Relationship Specialty Start Date End Date Turner Bundy MD [address] [place] [address] PCP - General Family Medicine 12/07/13 Tax Collector Relationship Specialty Start Date End Date Turner Bundy MD [address] [place] [address] PCP - General Family Medicine 12/07/13 Tax Collector Relationship Specialty Start Date End Date Turner Bundy MD [address] [place] [address] PCP - General Family Medicine 12/07/13 Tax Collector Relationship Specialty Start Date End Date Turner Bundy MD [address] [place] [address] PCP - General Family Medicine 12/07/13 Tax Collector Relationship Specialty Start Date End Date Turner Bundy MD [address] [place] [address] PCP - General Family Medicine 12/07/13 Tax Collector Relationship Specialty Start Date End Date Turner Bundy MD [address] [place] [address] PCP - General Family Medicine 12/07/13 Tax Collector Relationship Specialty Start Date End Date Turner Bundy MD [address] [place] [address] PCP - General Family Medicine 12/07/13 Tax Collector Relationship Specialty Start Date End Date Turner Bundy MD [address] [place], [place] [address] PCP - General Family Medicine 12/07/13 Team Status: Inactive Member Role Status Dates Dr. Turner Bundy MD Primary Care Provider Active Dr. Sisi Zavala MD Emergency Provider Active Team Status: Inactive Member Role Status Dates Dr. Turner Bundy MD Primary Care Provider Active Dr. Sisi Zavala MD Attending Provider, Emergency Provider Active Tax Collector Relationship Specialty Start Date End Date Turner Bundy MD [address] [place], [place] [address] PCP - General Family Medicine 12/07/13 Tax Collector Relationship Specialty Start Date End Date Turner Bundy MD [address] [place] [address] PCP - General Family Medicine 12/07/13 Tax Collector Relationship Specialty Start Date End Date Turner Bundy MD [address] [place] [address] PCP - General Family Medicine 12/07/13 Tax Collector Relationship Specialty Start Date End Date Turner Bundy MD [address] [place] [address] PCP - General Family Medicine 12/07/13 Tax Collector Relationship Specialty Start Date End Date Turner Bundy MD [address] [place] [address] PCP - General Family Medicine 12/07/13 Tax Collector Relationship Specialty Start Date End Date Turner Bundy MD [address] [place] [address] PCP - General Family Medicine 12/07/13 Tax Collector Relationship Specialty Start Date End Date Turner Bundy MD [address] [place] [address] PCP - General Family Medicine 12/07/13 Tax Collector Relationship Specialty Start Date End Date Turner Bundy MD [address] [place] [address] PCP - General Family Medicine 12/07/13 Tax Collector Relationship Specialty Start Date End Date Turner Bundy MD [address] [place] [address] PCP - General Family Medicine 12/07/13 Tax Collector Relationship Specialty Start Date End Date Turner Bundy MD [address] [place], [place] [id number] PCP - General Family Medicine 12/07/13 Tax Collector Relationship Specialty Start Date End Date Turner Bundy MD [address] [place] [address] PCP - General Family Medicine 12/07/13 Tax Collector Relationship Specialty Start Date End Date Turner Bundy MD [address] [place] [address] PCP - General Family Medicine 12/07/13 Tax Collector Relationship Specialty Start Date End Date Turner Bundy MD [address] [place] [address] PCP - General Family Medicine 12/07/13 Tax Collector Relationship Specialty Start Date End Date Turner Bundy MD [address] [place] [address] PCP - General Family Medicine 12/07/13 Tax Collector Relationship Specialty Start Date End Date Turner Bundy MD [address] [place] [address] PCP - General Family Medicine 12/07/13 Tax Collector Relationship Specialty Start Date End Date Turner Bundy MD [address] [place] [address] PCP - General Family Medicine 12/07/13 Tax Collector Relationship Specialty Start Date End Date Turner Bundy MD [address] [place], [place] [phone] PCP - General Family Medicine 12/07/13 Tax Collector Relationship Specialty Start Date End Date Tunrer Bundy MD [address] [place], [place] [address]421 PCP - General Family Medicine 12/07/13 Tax Collector Relationship Specialty Start Date End Date Turner Bundy MD [address] [place], [place] [address] PCP - General Family Medicine 12/07/13 Tax Collector Relationship Specialty Start Date End Date Turner Bundy MD [address] [place], [place] [address] PCP - General Family Medicine 12/07/13 Tax Collector Relationship Specialty Start Date End Date Turner Bundy MD [address] [place] [address] PCP - General Family Medicine 12/07/13 Francy Mittal MASH FILTER PRESS OPERATOR.[facility] [address] [place] [address] Tool Lathe Operator Family Medicine 02/06/24 Angelina Claudio MASH FILTER PRESS OPERATOR.[facility] [address] [place] [address] Tool Lathe Operator Family Medicine 02/06/24 Tax Collector Relationship Specialty Start Date End Date Turner Bundy MD [address] [place] [address] PCP - General Family Medicine 12/07/13 Francy Mittal MASH FILTER PRESS OPERATOR.[facility] [address] [place] [address] Tool Lathe Operator Family Medicine 02/06/24 Angelina Claudio APRN.[facility] [address] [place] [address] [facility] 02/06/24 Tax Collector Relationship Specialty Start Date End Date Turner Bundy MD [address] [place] [address] PCP - General Family Medicine 12/07/13 Francy Mittal APRN.[facility] [address] [place] [address] [facility] 02/06/24 Angelina Claudio APRN.[facility] [address] [place] [address] [facility] 02/06/24 Tax Collector Relationship Specialty Start Date End Date Turner Bundy MD [address] [place] [address] PCP - General Family Medicine 12/07/13 Francy Mittal APRN.[facility] [address] [place] [address] [facility] 02/06/24 Tax Collector Relationship Specialty Start Date End Date Turner Bundy MD [address] [place] [address] PCP - General Family Medicine 12/07/13 Francy Mittal APRN.[facility] [address] [place] [address] Tool Lathe Operator Family Medicine 02/06/24 Angelina Claudio APRN.[facility] [address] [place] [address] [facility] 02/06/24 Tax Collector Relationship Specialty Start Date End Date Turner Bundy MD [address] [place] [address] PCP - General Family Medicine 12/07/13 Francy Mittal, MASH FILTER PRESS OPERATOR.[facility] [address] [place] [address] Tool Lathe Operator Family Medicine 02/06/24 Angelina Claudio MASH FILTER PRESS OPERATOR.[facility] [address] [place] [address] [facility] 02/06/24 Tax Collector Relationship Specialty Start Date End Date Turner Bundy MD [address] [place] [address] PCP - General Family Medicine 12/07/13 Francy Mittal MASH FILTER PRESS OPERATOR.[facility] [address] [place] [address] Tool Lathe Operator Family Medicine 02/06/24 Angelina Claudio MASH FILTER PRESS OPERATOR.[facility] [address] [place] [address] [facility] 02/06/24 Tax Collector Relationship Specialty Start Date End Date Turner Bundy MD [address] [place] [address] PCP - General Family Medicine 12/07/13 Francy Mittal, MASH FILTER PRESS OPERATOR.[facility] [address] [place] [address] Tool Lathe Operator [facility] 02/06/24 Angelina Claudio APRN.[facility] [address] [place] [address] [facility] 02/06/24 Tax Collector Relationship Specialty Start Date End Date Turner Bundy MD [address] [place] [place] [address] PCP - General Family Medicine 12/07/13 Francy Mittal APRN.[facility] [address] [place] [address] [facility] 02/06/24 Angelina Claudio APRN.[facility] [address] [place] [address] [facility] 02/06/24 Tax Collector Relationship Specialty Start Date End Date Turner Bundy MD [address] [place] [address] PCP - General Family Medicine 12/07/13 Francy Mittal APRN.[facility] [address] [place] [address] [facility] 02/06/24 Angelina Claudio MASH FILTER PRESS OPERATOR.[facility] [address] [address] [facility] 02/06/24 Team Status: Active Member Role/Relationship Status Dates Dr. Turner Bundy MD Primary Care Provider Active Team Status: Inactive Member Role/Relationship Status Dates Dr. Turner Bundy MD Primary Care Provider Active Start: October 22, 2024 End: October 23, 2024 Dr. Jasmin Husain MD Emergency Provider Active S tart: October 22, 2024 End: October 23, 2024 Goals (unrecognized section and content) Goals may [...] BE BASED ON THE PRIMARY CLINICAL RECORDS. [employer] provides no warranty or guarantee of the accuracy or completeness of information in this document.
[2024-11-09 02:09] LABS: Anion Gap 13 (5-15); BUN 9 mg/dL (4-19); BUN/Creat Ratio 11.0 RATIO (10-20); Calcium,Total 9.5 mg/dL (7.6-11.0); Carbon Dioxide 22.3 mmol/L (21.0-32.0); Chloride 104 mmol/L (98-108); Estimated Creatinine Clearance 182.65 ml/min (50-250); Glucose 94 mg/dL (70-99); Potassium 3.8 mmol/L (3.3-5.1)
[2024-11-09 02:22] LABS: Alcohol, Blood (Medical)-Serum < 10.1 mg/dL (<=10.0)
--- NOTE | 2024-11-09 02:24 | EX.ED.DYSGE1 ---
HPI History of Present Illness Chief Complaint: Suicidal Informant: patient and mental health staff Narrative Narrative: Patient is a 29-year-old male with past medical history of bipolar disorder schizophrenia ADHD and Asperger syndrome. Crisis center/mental health was called this evening to his shelter because the staff reported that this evening he began stating that he was having hallucinations and that they were telling him he should kill himself. They state he also reported that they were telling him to harm other members of the shelter. Crisis center went to the shelter and evaluated the patient he is calm and cooperative but still reporting the command hallucinations with thoughts of suicide and homicidal ideation. Therefore they recommended he be brought to the ER for medical clearance and potential placement. Upon arrival to the ER the patient states that he is having visual hallucinations which are telling him to harm himself and harm others. He states his plan to harm himself is to jump out the window. He states his plan to harm others are make them go with him. The patient was recently admitted to a psychiatric center for similar symptoms. He states that he began to cut himself while he was there and they still sent him home. He states that he feels he was sent home too early. [facility] Medical History Paranoia PTSD (post-traumatic stress disorder) Schizophrenia Bipolar 1 disorder Pneumonia Back pain Seizures Asthma Knee pain Psychiatric pseudoseizure Petit mal epilepsy ADHD (attention deficit hyperactivity disorder) Partial agenesis of corpus callosum Aspergers' syndrome Home Medications ?Medication ?Instructions ?Recorded ?Last Taken ?Type lamotrigine 200 mg tablet 200 mg PO BID 11/19/20 Unknown History paliperidone 6 mg tablet,extended 3 mg PO QHS 06/02/22 Unknown History release 24 hr albuterol sulfate 90 mcg/actuation 2 puff inhalation Q6H PRN 04/17/23 Unknown History aerosol inhaler shortness of breath or wheezing lithium carbonate 300 mg capsule 300 mg PO QHS 04/17/23 Unknown History sertraline 100 mg tablet 100 mg PO Q24H 04/17/23 Unknown History urea 40 % topical cream 1 applic topical DAILY 04/17/23 Unknown History acetaminophen 500 mg tablet 1,000 mg PO Q6H PRN pain 10/22/24 Unknown History fluticasone propionate 50 spray intranasal 10/22/24 Unknown History mcg/actuation nasal spray,suspension lithium carbonate 600 mg capsule 600 mg PO 10/22/24 Unknown History loratadine 10 mg tablet 10 mg PO DAILY 10/22/24 Unknown History Allergy/AdvReac Type Severity Reaction Status Date / Time bee venom protein (honey bee) Allergy Anaphylaxis Verified 11/09/24 01:08 carbamazepine (From Tegretol) Allergy Unknown Verified 11/09/24 01:08 divalproex sodium (From Allergy Other Verified 11/09/24 01:08 Depakote) methylphenidate (From Allergy Unknown Verified 11/09/24 01:08 Concerta) methylphenidate HCl (From Allergy Unknown Verified 11/09/24 01:08 Ritalin) phenobarbital Allergy Hives Verified 11/09/24 01:08 Family History Other Asthma Diabetes Hypertension Kidney disease Surgical History Hx of cholecystectomy Hx of tympanostomy tubes H/O hernia repair Social History household members: family housing: house Smoking Status: Never smoker alcohol intake: never ROS ROS ED Constitutional Constitutional ED: Denies chills or fever(s) Eyes Eyes: Denies change in vision ENT ENT ED: Denies sore throat Cardiovascular Cardiovascular: Denies chest pain Respiratory/Chest Respiratory/Chest: Denies cough or dyspnea Gastrointestinal Gastrointestinal: Denies abdominal pain, diarrhea, nausea or vomiting Genitourinary Genitourinary ED: Denies dysuria Musculoskeletal Musculoskeletal: Denies myalgias Integumentary Denies rash Neurologic Neurologic: Denies headache(s) Psychiatric Psychiatric: Reports suicidal ideation, suicidal thoughts and other Details: Positive visual hallucinations with homicidal and suicidal ideation Hematologic/Lymphatic Hematologic/Lymphatic: Denies easy bleeding or easy bruising EXAM Physical Exam Const Vital Signs: 11/09/24 01:07 Temperature 98.2 F Temperature Source Oral Pulse Rate 71 Respiratory Rate 18 Blood Pressure 129/79 H Blood Pressure Mean 95 Pulse Ox 99 Oxygen Delivery Method Room Air Positive well nourished and well developed General Appearance ED: well developed; Negative for pallor HEENT HEENT Narrative: Normocephalic atraumatic No tongue or lip swelling no oral lesions no airway edema or compromise; no secondary findings in the posterior pharynx to suggest infection Eyes PERRL and EOMs intact bilaterally General Eye ED: Negative for scleral icterus Neck supple Neck Narrative: No nuchal rigidity or meningeal signs Resp normal respiratory effort and clear to auscultation bilaterally Cardio regular rate and regular rhythm Rate: other Other Details: Heart is regular rate and rhythm without murmurs rubs or gallop Radial and carotid pulses are equal and symmetric GI normal to inspection, nondistended, normoactive bowel sounds, non-tender, non-distended and no masses Auscultation: normoactive bowel sounds Palpation: soft Extremity normal to inspection Neuro oriented x3, CN's II-XII intact bilaterally and no sensory deficits noted Sensorium / Orientation: alert Motor Exam: strength 5/5 throughout Psych Psych Narrative: Patient reports visual hallucinations that are commanding him to perform homicidal and suicidal actions Skin no rashes or lesions noted and no wounds General Skin Exam: Negative for jaundice or pallor MDM MDM MDM Narrative Medical decision making narrative: Patient arrived to the ER with stable vital. He was recently admitted because of his homicidal and suicidal command hallucinations. However with them being persistent and the fact he could potentially harm others as he lives in a shelter situation it was felt that reevaluation for medical clearance in the ER potential placement was the safest option. Therefore basic screening exam was performed with laboratory testing and EKG. EKG is sinus rhythm without ischemic or cardiac dysrhythmia finding. Laboratory workup reveals no clinically significant changes. The patient is calm and cooperative in the ER not requiring chemical or physical sedation. However he remains adamant that he is having command hallucinations stating that he should harm himself and others. Therefore secondary to the risk of self-harm as well as harm to others and need for reevaluation of his treatment regimen I do feel readmission is the safest option. The patient was evaluated by crisis center prior to arrival and they also agree that placement is the best choice of action at this time. The patient is medically cleared from an emergency room standpoint and safe for transfer/placement to a psychiatric hospital History & Record Review Discussion w/independent historian: Patient and Other (Mental health staff) Additional record(s) reviewed:: Prior ED visit Lab Data Attestation: I reviewed the patient's lab results. Labs: Laboratory Results - last 24 hr 11/09/24 11/09/24 01:20 01:24 WBC 8.5 RBC 4.84 Hgb 12.6 L Hct 38.7 L MCV 80.0 MCH 26.0 L MCHC 32.6 RDW Std Deviation 42.4 RDW Coeff of Nano 14.8 H Plt Count 326 MPV 8.7 Immature Gran % (Auto) 0.200 Neut % (Auto) 61.3 Lymph % (Auto) 31.2 [place] % (Auto) 7.2 Eos % (Auto) 0.0 Baso % (Auto) 0.1 Absolute Neuts (auto) 5.2 Absolute Lymphs (auto) 2.64 Nucleated RBC % 0 Sodium 139 Potassium 3.8 Chloride 104 Carbon Dioxide 22.3 Anion Gap 13 BUN 9 Creatinine 0.77 Estim Creat Clear Calc 182.65 Est GFR (MDRD) Non-Af 123 BUN/Creatinine Ratio 11.0 Glucose 94 Calcium 9.5 Urine Opiates Screen NEGATIVE U Buprenorphine Qual NEGATIVE Ur Oxycodone Screen NEGATIVE Urine Methadone Screen NEGATIVE Urine Fentanyl Screen NEGATIVE Ur Barbiturates Screen NEGATIVE Ur Phencyclidine Scrn PRESUMPTIVE POSITIVE Ur Amphetamines Screen NEGATIVE U Benzodiazepines Scrn NEGATIVE Urine Cocaine Screen NEGATIVE U Cannabinoids Screen NEGATIVE Ethyl Alcohol < 10.1 Management Discussion w/another healthcare provider: Behavioral health Discharge Plan Triage Chief Complaint: Suicidal ED Provider: Nahum Garcia Dx/Rx/DC Orders Clinical Impression: Command hallucination, Suicidal ideations, Homicidal ideations, Bipolar disorder, Schizophrenia Prescriptions: No Action lamotrigine 200 mg tablet 200 mg PO BID paliperidone 6 mg tablet extended release 24hr 3 mg PO QHS albuterol sulfate 90 mcg/actuation HFA aerosol inhaler 2 puff INHALATION Q6H PRN (Reason: shortness of breath or wheezing) Patient Comments: inhale 2 puffs by mouth INSTRUCTED EVERY 6 HOURS NEEDED lithium carbonate 300 mg capsule 300 mg PO QHS sertraline 100 mg tablet 100 mg PO Q24H urea 40 % cream 1 applic TOPICAL DAILY Patient Comments: apply to affected area once daily bilat feet acetaminophen 500 mg tablet 1,000 mg PO Q6H PRN (Reason: pain) lithium carbonate 600 mg capsule 600 mg PO fluticasone propionate 50 mcg/actuation spray,suspension INTRANASAL loratadine 10 mg tablet 10 mg PO DAILY Primary Care Provider: Turner Quick Referrals: Turner Quick MD [Primary Care Provider] - Print Language: Solomon Islander Disposition Disposition: Psychiatric Hospital or Unit
--- NOTE | 2024-11-09 03:09 | ED.RN ---
Pt unsure of which meds he takes. Counseling center to get a list so chart can be updated.
--- NOTE | 2024-11-09 07:12 | PCA ---
THIS PLODDER OPERATOR CALLED CRISIS AND SPOKE TO ALY ABOUT PT REFERRALS. PT HAS BEEN REFEREED TO [facility], [facility], AND [facility] (THE PLACE HE WAS PLACED LAST TIME).
[2024-11-09 09:52] VITALS: BP 128/78; PULSE 78; RESP 18; O2SAT 98
[2024-11-09] MEDS: PALIPERIDONE 3 MG TAB.ER.24 6 MG PO (10:33)
--- NOTE | 2024-11-09 11:07 | CM.ED ---
Social work SW called Crisis (ph: [phone]) to receive update and SW spoke with Nette. Per Nette, patient has been declined at both [facility] and [facility]. Patient is still under review at [facility] and patient was just referred to [facility]. Hardik to continue searching for placement. Malaika Vaughan, MODELING ANALYST, MAC OPERATOR
--- NOTE | 2024-11-09 14:10 | PCA ---
PT HAS BEEN REFFERED TO [facility] IN [place], AND IS STILL PENDING AT [facility]
[2024-11-09 17:00] VITALS: BP 141/91; PULSE 97; RESP 17; O2SAT 100
[2024-11-09 18:51] LABS: CPK Total, Creatine Kinase 51 U/L (24-195)
--- NOTE | 2024-11-09 20:11 | CM.ED ---
Social work Called and spoke with Deo at Crisis (ph: [phone]); SW received the following update: [facility] is still reviewing patient's referral. [facility] will still not provide an answer. [facility] is requiring a 24 hour reassessment prior to reviewing. Crisis will be out to reassess patient at or around the 24 hour yoseph. Nursing updated. Malaika Vaughan, SOLE SEWER HAND, MICROCOMPUTER TECHNICIAN
--- NOTE | 2024-11-09 23:01 | ED.RN ---
The patient has been calm and cooperative for this RN's shift during patient care and interactions with staff. The patient has had no prn medications given for aggressive behavior.
[2024-11-10 01:00] VITALS: BP 124/72; PULSE 67; RESP 18; TEMP 36.6; O2SAT 99
--- NOTE | 2024-11-10 05:52 | ED.RN ---
This RN spoke with Margarita from [facility] in [place], who informed this RN that they are hesitant to accept the patient d/t the idea that the patient acting behaviorally. Margarita is also concerned that sending the patient far away from his home would not be ideal considering the patient's other diagnoses. This RN informed Margarita about the patient's behaviors while at [facility] and this RN explained the patient's reevaluation at 24 hours after being at [facility] by crisis, the crisis center is still recommending placement. Margarita informed this RN that the patient's legal guardian needs to loren permission for the patient to be placed. This RN attempted to call the patient's legal guardian with no response. This RN left a message for the legal guardian.
--- NOTE | 2024-11-10 06:06 | ED.RN ---
This RN obtained verbal consent from Franklin Sanderson from [facility] at this time, for the patient to be transferred to a facility for acute psychiatric care.
--- NOTE | 2024-11-10 06:15 | ED.RN ---
This RN contacted Margarita from [facility] in [place] to inform Margarita that the patient's legal guardian is agreeable to the patient being placed. Margarita informed this RN that this RN will have to sign a form stating verbal consent was obtained for the patient to be transferred. This RN requested that the form be faxed over to [facility]. Margarita informed this RN that the patient is not accepted yet and the doctor at their facility needs to review the case whenever he arrives at their hospital. Margarita stated that the acceptance would happen during the next shift and [facility] would receive acceptance or denial at some point this morning.
--- NOTE | 2024-11-10 08:54 | PCA ---
THIS US CALLED [facility] FOR A BED UPDATE. THEY STATED THEY ARE WAITING ON THE DOCTOR TO COME IN THIS MORNING TO REVIEW THE CHART HIMSELF, THEY DO NOT KNOW WHAT TIME HE WILL BE IN
[2024-11-10 09:00] VITALS: BP 121/74; PULSE 79; RESP 16; O2SAT 97
[2024-11-10] MEDS: PALIPERIDONE 3 MG TAB.ER.24 6 MG PO (09:47)
--- NOTE | 2024-11-10 10:56 | CM.ED ---
Social Work Date of referral: 11/10/24 Reason for referral: Assistance with psychiatric placement updates Referred by: ED nurse Twister In made phone contact with Deo with Crisis to get an update on placement. No additional updates as of yet; will keep ED and social science professor informed. Sisi Tiwari, NEWSPAPER STUFFER, APPRAISER PERSONAL PROPERTY
--- NOTE | 2024-11-10 11:04 | PCA ---
THIS US CALLED AT 1100 TO GET UPDATE, THEY SAID THEY ARE WAITING ON THE DOCTOR THAT COMES IN THIS AFTERNOON.
--- NOTE | 2024-11-10 13:49 | ED.RN ---
PT. ACCEPTANCE OBTAINED FOR [facility] AT THIS TIME.
--- NOTE | 2024-11-10 14:02 | PCA ---
[facility] BED 392. NURSE TO GIVE REPORT IS ESTELA- [phone]. DR OSORIO PERSON, CALLED PHYSIC[facility]ANS TO SET UP TRANSPORT, [phone] SAID THEY WOULD TRY TO [facility]
[2024-11-10 15:11] VITALS: BP 130/78; PULSE 76; O2SAT 96
--- NOTE | 2024-11-10 15:18 | ED.RN ---
PATIENT NOTIFIED OF TRANSPORT
[2024-11-10 15:43] VITALS: BP 130/78; PULSE 76; RESP 16; TEMP 36.6; O2SAT 96
--- NOTE | 2024-11-10 18:32 | NURSING ---
Verbal report given to squad for transport, Pt voided and is calm and cooperative.
== END 2024-11-10 18:34 ==
PROVIDERS: Emergency Medicine; Emergency Provider Emergency Medicine; PCP Family Medicine; Visit Provider Emergency Medicine
DX: R45.850 Homicidal ideations (principal); F20.9 Schizophrenia, unspecified; F31.9 Bipolar disorder, unspecified; F84.5 Asperger's syndrome; R45.851 Suicidal ideations; Z90.49 Acquired absence of other specified parts of digestive tract
CPT/HCPCS: 80048; 80307; 82077; 82550; 85025; 93005; 99285